=== PATIENT | female | born 1940 | race Caucasian/White ===

== ENCOUNTER → 2016-07-20 | Outpatient (CLI) | payer OTHER, MEDICARE ==
[~2016-07-20] MED LIST: AMIO0.1T PO; ASPI81TA28 PO; ATOR-26 PO; BRVIN INH; BSP15 PO; BUDE0.5S INH; CHOL20009 PO; CRD200 PO; CRDCD180 PO; DILT-113 PO; DSY100 PO; ECRCR EXT; EFFSR150 PO; EFFSR75 PO; FERR1TAB13 PO; FERR325T51 PO; FLNIN; FLUT0.15 NAE; FLUT1INH INH; FOLI1TAB7 PO; GFNSR600 PO; GUAI1TAB55 PO; IPRA1AER2 INH; LACT1TAB4 PO; LCTX PO; LEVA1.25 INH; LVQ750 PO; MOML PO; MOMLX PO; MRLP17X PO; MRP25 PO; OXGN; POLY335019 PO; PRAM0.256 PO; PRD20 PO; PRED10TA PO; PRT/40 PO; RIVA1TAB4 PO; SALI0.6510; SALI0.6510 NAE; SKINCRE34 TOP; SPRIN INH; SPRIN/30 INH; SYMIN INH; UMEC1INH INH; XNX25 PO
[2016-07-20 12:36] LABS: ALT/SGPT 18 U/L (12-78); AST/SGOT 15 U/L (15-37); BLOOD UREA NITROGEN 12 mg/dl (7-18); BUN/CREATININE RATIO 15.2 (10-20); CALCIUM 8.6 mg/dl (8.5-10.1); CARBON DIOXIDE 34 mmol/L (21-32); CHLORIDE 103 mmol/L (98-107); CREATININE 0.82 mg/dl (0.60-1.20); GLUCOSE 144 mg/dl (70-99); HEMATOCRIT 32.3 % (37-47); MEAN CELL VOLUME 96.1 fL (80-100); MEAN CORPUSCULAR HEMOGLOBIN 30.7 pg (25-34); MEAN CORPUSCULAR HGB CONC 31.9 g/dl (32-36); MEAN PLATELET VOLUME 11.2 fL (7.4-10.4); PLATELET COUNT 156 K/uL (130-400); POTASSIUM 3.8 mmol/L (3.5-5.1); RED BLOOD COUNT 3.36 M/uL (4.2-5.4); SODIUM 144 mmol/L (136-145); WHITE BLOOD COUNT 10.21 K/uL (4.8-10.8)
[2016-07-20 12:38] LABS: ALB/GLOB RATIO 0.9 (0.9-2); ALKALINE PHOSPHATASE 94 U/L (45-117)
== END | disposition home or self-care (01) ==
LOC: C.LABBFT 11:02
PROVIDERS: ATTEND Internal Medicine Cardiovascular Disease
DX: I48.91 Unspecified atrial fibrillation (principal); Z79.01 Long term (current) use of anticoagulants; E78.5 Hyperlipidemia, unspecified

== ENCOUNTER 2016-07-22 19:43 | Inpatient (IN) | payer OTHER, MEDICARE ==
[~2016-07-22] VITALS: Ht 160 cm; Wt 95.8 kg
[~2016-07-22 19:43] MED LIST changes: -AMIO0.1T PO; -ASPI81TA28 PO; -BUDE0.5S INH; -CRDCD180 PO; -DILT-113 PO; -ECRCR EXT; -FERR1TAB13 PO; -FLNIN; -FLUT0.15 NAE; -FLUT1INH INH; -GUAI1TAB55 PO; -LACT1TAB4 PO; -LVQ750 PO; -MOML PO; -MOMLX PO; -MRLP17X PO; -MRP25 PO; -POLY335019 PO; -PRAM0.256 PO; -PRD20 PO; -PRED10TA PO; -RIVA1TAB4 PO; -SALI0.6510; -SALI0.6510 NAE; -SKINCRE34 TOP; -SPRIN INH; -UMEC1INH INH; -XNX25 PO
[2016-07-22] MEDS ORDERED: ALBUT/IPRATROP 3MG/0.5MG NEB 3 ML VIAL INH STA ×2 (20:10→20:12)
[2016-07-22] MEDS ORDERED: METHYLPREDNISOLONE IV 40 MG in SYRINGE 0 ML IV STA (20:12)
[2016-07-22] MEDS ORDERED: LEVAQUIN 750MG / 150ML D5W IV STA (20:12)
[2016-07-22 20:42] LABS: BASO % 0.3 %; BASO ABS # 0.02 K/uL (0-0.2); COMPLETE YES; EOS % 1.3 %; HEMATOCRIT 31.7 % (37-47); IG% 0.3 %; LYMPH % 8.1 %; LYMPH ABS # 0.55 K/uL (1.2-3.4); MEAN CELL VOLUME 95.8 fL (80-100); MEAN CORPUSCULAR HEMOGLOBIN 30.2 pg (25-34); MEAN CORPUSCULAR HGB CONC 31.5 g/dl (32-36); MEAN PLATELET VOLUME 10.6 fL (7.4-10.4); MONO % 10.5 %; NEUT % 79.5 %; PLATELET COUNT 156 K/uL (130-400); RED BLOOD COUNT 3.31 M/uL (4.2-5.4); WHITE BLOOD COUNT 6.77 K/uL (4.8-10.8)
--- NOTE | 2016-07-22 20:51 | DIAGNOSTIC IMAGING REPORT ---
CHEST ONE VIEW PORTABLE HISTORY: EVALUATE RESPIRATORY DISTRESS.DYSPNEA COMPARISON: Chest 02/01/2016. FINDINGS: The heart is normal in size. Bilateral hilar prominence remains unchanged. This likely represents, severe pulmonary vasculature. No pleural effusions. No pneumothorax. Left basilar linear density persist and favor scarring or atelectasis. No new focal lung consolidations. No evidence for pulmonary edema. IMPRESSION: No significant change compared to the prior study. No acute process. Electronically signed by: Jason Bosch M.D. 07/22/2016 8:49 PM Dictated Date/Time: 07/22/2016 8:48 PM
[2016-07-22] MEDS ORDERED: METHYLPREDNISOLONE 125 MG VIAL ONE (20:57)
[2016-07-22 21:02] LABS: BUN/CREATININE RATIO 11.4 (10-20); CALCIUM 8.8 mg/dl (8.5-10.1); CREATININE 0.69 mg/dl (0.60-1.20); POTASSIUM 3.3 mmol/L (3.5-5.1)
[2016-07-22] MEDS ORDERED: FERR1TAB13 PO (21:06)
[2016-07-22 21:07] LABS: ALB/GLOB RATIO 0.7 (0.9-2)
[2016-07-22 22:12] LABS: URINE APPEARANCE CLEAR (CLEAR); URINE BILIRUBIN NEG (NEG); URINE COLOR YELLOW; URINE NITRITE NEG (NEG); URINE SPECIFIC GRAVITY 1.009 (1.000-1.030); UROBILINOGEN NEG (NEG)
[2016-07-22 22:14] LABS: MANUAL MICROSCOPIC REQUIRED? NO; REVIEW REQ? NO
[2016-07-23] VITALS (9 sets, daily range): BP systolic 135–157; BP diastolic 66–79; PULSE 58–103; TEMP 36.7–37.3; O2SAT 93–98; BMI 37.4
--- NOTE | 2016-07-23 00:37 | EMERGENCY ROOM VISIT NOTE ---
History Report prepared by Seth: Mercedes Lopez Under the Supervision of: Dr. Tariq Portillo D.O. First contact with patient: 20:01 Chief Complaint: RESPIRATORY PROBLEMS Stated Complaint: CANT BREATHE W OXYGEN, RT SIDE OF HEAD HURTS,COUGH Nursing Triage Summary: Patient complains of increased SOB. Patient uses 4l NC at home. PAtient used home nebuliser prior to coming to hospital. History of Present Illness The patient is a 76 year old female who presents to the Emergency Room with complaints of worsening shortness of breath that started yesterday or the day before. She normally wears 4 L of nasal cannula oxygen at home, but it has not offered her any relief of her symptoms. The patient is also experiencing a headache, rhinorrhea, and a productive cough with thick yellow sputum. She denies fevers, sore throat, chest pain, abdominal pain, and pain or burning with urination. The patient denies any recent sick contacts. She also denies recent steroid use. The patient's daughter states that the patient has a history of COPD and atrial fibrillation. The patient just started Xarelto two weeks ago, per the patient's daughter. Source of History: patient Onset: yesterday or the day before Position: chest Quality: other (shortness of breath) Timing: worsening Associated Symptoms: + cough (productive with thick yellow sputum), + headache, No abdominal pain, No chest pain, No fevers, No sorethroat, No urinary symptoms (pain or burning with urination) Note: rhinorrhea Review of Systems See HPI for pertinent positives & negatives. A total of 10 systems reviewed and were otherwise negative. Past Medical & Surgical Medical Problems: (1) Diab Zoey Wo Compl, Type Ii Or Unspec Type, Not Uncntrld (2) Diverticulosis Colon (W/O Ment Of Hemorrhage) (3) Hyperlipidemia Nec/Nos (4) Hypertension Nos (5) Obstr Chronic Bronchitis, W (Acute) Exacerbation (6) Pneumonia, Organism Nos (7) Pure Hypercholesterolem (8) Tubal Ligation Status Family History Diabetes mellitus FH: cancer Hypertension Social History Smoking Status: Never Smoker Alcohol Use: none Drug Use: none Housing Status: lives with family Current/Historical Medications Scheduled Amiodarone HCl (Amiodarone HCl), 100 MG PO DAILY Atorvastatin (Lipitor), 80 MG PO DAILY Budesonide/Formoterol Fumarate (Symbicort 160-4.5 Mcg/Act), 2 PUFFS INH BID Buspirone HCl (Buspirone HCl), 15 MG PO TID Cholecalciferol (Vitamin D), 2,000 INTER.UNIT PO DAILY Ferrous Sulfate (Kp Ferrous Sulfate), 1 TAB PO BID Folic Acid (Folvite), 1 MG PO DAILY Guaifenesin Ext Rel (Mucinex Ext Rel), 600 MG PO Q12 Ipratropium-Albuterol (Combivent Respimat), 1 PUFFS INH QID Lactobacillus Acidophilus (Floranex), 1 TAB PO TIDM Oxygen (Oxygen), 2 LITERS NA UD Pantoprazole (Pantoprazole Sodium), 40 MG PO DAILY Trazodone HCl (Trazodone HCl), 200 MG PO HS Venlafaxine Hcl (Effexor Extended Rel), 150 MG PO DAILY Venlafaxine Hcl (Effexor Extended Rel), 75 MG PO DAILY Allergies Coded Allergies: Morphine (Verified Allergy, Mild, Causes Afib, 07/22/16) Mushroom (Verified Allergy, Unknown, 07/22/16) Theophyllines (Verified Allergy, Unknown, Unknown, 07/22/16) Reported by daughter and [facility]. Codeine (Verified Adverse Reaction, Unknown, HYPERVENTILATES, 07/22/16) Physical Exam Vital Signs Date Time Temp Pulse Resp B/P Pulse Ox O2 Delivery O2 Flow Rate FiO2 07/22/16 22:00 82 Nasal Cannula 4.0 07/22/16 21:46 106 18 131/62 98 Nasal Cannula 4.0 07/22/16 20:59 94 07/22/16 20:52 100 Nasal Cannula 4.0 07/22/16 20:00 94 Nasal Cannula 4.0 07/22/16 19:49 37.6 101 32 128/59 83 Room Air Physical Exam GENERAL: alert, sitting up in bed on nasal cannula oxygen, disheveled, moderate distress EYE EXAM: normal conjunctiva OROPHARYNX: no exudate, no erythema, lips, buccal mucosa, and tongue normal and mucous membranes are dry NECK: supple, no nuchal rigidity, no adenopathy, non-tender LUNGS: Diffuse wheezing. Normal chest wall mechanics HEART: tachycardic rate, no murmurs, S1 normal and S2 normal ABDOMEN: abdomen soft, non-tender, normo-active bowel sounds, no masses, no rebound or guarding. BACK: Back is symmetrical on inspection and there is no deformity, no midline tenderness, no CVA tenderness. SKIN: no rashes and no bruising UPPER EXTREMITIES: upper extremities are grossly normal. LOWER EXTREMITIES: No pitting edema, calves equal bilaterally. NEURO EXAM: Normal sensorium, cranial nerves II-XII grossly intact, normal speech, no gross weakness of arms, no gross weakness of legs. Medical Decision & Procedures ER Provider Diagnostic Interpretation: Xray results per the radiologist and my interpretation. CHEST ONE VIEW PORTABLE IMPRESSION: No significant change compared to the prior study. No acute process. Electronically signed by: Jason Bosch M.D. 07/22/2016 8:49 PM Dictated Date/Time: 07/22/2016 8:48 PM Laboratory Results 07/22/16 20:31 Red Blood Count 3.31, Mean Corpuscular Volume 95.8, Mean Corpuscular Hemoglobin 30.2, Mean Corpuscular Hemoglobin Concent 31.5, Mean Platelet Volume 10.6, Neutrophils (%) (Auto) 79.5, Lymphocytes (%) (Auto) 8.1, Monocytes (%) (Auto) 10.5, Eosinophils (%) (Auto) 1.3, Basophils (%) (Auto) 0.3, Neutrophils # (Auto ) 5.38, Lymphocytes # (Auto) 0.55, Monocytes # (Auto) 0.71, Eosinophils # (Auto ) 0.09, Basophils # (Auto) 0.02 07/22/16 20:31 Test 07/22/16 20:31 07/22/16 20:59 07/22/16 22:01 White Blood Count 6.77 K/uL (4.8-10.8) Red Blood Count 3.31 M/uL (4.2-5.4) Hemoglobin 10.0 g/dL (12.0-16.0) Hematocrit 31.7 % (37-47) Mean Corpuscular Volume 95.8 fL (80-100) Mean Corpuscular Hemoglobin 30.2 pg (25-34) Mean Corpuscular Hemoglobin Concent 31.5 g/dl (32-36) Platelet Count 156 K/uL (130-400) Mean Platelet Volume 10.6 fL (7.4-10.4) Neutrophils (%) (Auto) 79.5 % Lymphocytes (%) (Auto) 8.1 % Monocytes (%) (Auto) 10.5 % Eosinophils (%) (Auto) 1.3 % Basophils (%) (Auto) 0.3 % Neutrophils # (Auto) 5.38 K/uL (1.4-6.5) Lymphocytes # (Auto) 0.55 K/uL (1.2-3.4) Monocytes # (Auto) 0.71 K/uL (0.11-0.59) Eosinophils # (Auto) 0.09 K/uL (0-0.5) Basophils # (Auto) 0.02 K/uL (0-0.2) RDW Standard Deviation 47.5 fL (36.4-46.3) RDW Coefficient of Variation 13.6 % (11.5-14.5) Immature Granulocyte % (Auto) 0.3 % Immature Granulocyte # (Auto) 0.02 K/uL (0.00-0.02) Anion Gap 9.0 mmol/L (3-11) Est Creatinine Clear Calc Drug Dose 78.8 ml/min Estimated GFR () 99.4 Estimated GFR (Non- 85.8 BUN/Creatinine Ratio 11.4 (10-20) Calcium Level 8.8 mg/dl (8.5-10.1) Total Bilirubin 0.7 mg/dl (0.2-1) Aspartate Amino Transf (AST/SGOT) 22 U/L (15-37) Alanine Aminotransferase (ALT/SGPT) 19 U/L (12-78) Alkaline Phosphatase 90 U/L (45-117) Troponin I 0.017 ng/ml (0-0.045) Pro-B-Type Natriuretic Peptide 462 pg/ml (0-900) Total Protein 7.2 gm/dl (6.4-8.2) Albumin 3.0 gm/dl (3.4-5.0) Globulin 4.2 gm/dl (2.5-4.0) Albumin/Globulin Ratio 0.7 (0.9-2) Influenza Type A Antigen Neg for Influ A (NEG) Influenza Type B Antigen Neg for Influ B (NEG) Urine Color YELLOW Urine Appearance CLEAR (CLEAR) Urine pH 5.0 (4.5-7.5) Urine Specific [place] 1.009 (1.000-1.030) Urine Protein NEG (NEG) Urine Glucose (UA) 3+ (NEG) Urine Ketones NEG (NEG) Urine Occult Blood NEG (NEG) Urine Nitrite NEG (NEG) Urine Bilirubin NEG (NEG) Urine Urobilinogen NEG (NEG) Urine Leukocyte Esterase NEG (NEG) Laboratory results per my review. Medications Administered Medications (Trade) Dose Ordered Sig/Buddy Route Start Time Stop Time Status Last Admin Dose Admin Albuterol/ Ipratropium (Duoneb) 3 ml NOW STAT INH 07/22/16 20:10 07/22/16 20:12 DC 07/22/16 21:10 3 ML Albuterol/ Ipratropium (Duoneb) 3 ml NOW STAT INH 07/22/16 20:12 07/22/16 20:13 DC 07/22/16 21:10 3 ML Levofloxacin 750 mg 750 mg NOW STAT IV 07/22/16 20:12 07/22/16 20:13 DC 07/22/16 21:10 750 MG Methylprednisolone Sodium Succinate/ Syringe (Solu-Medrol IV/ Syringe) 0.64 ml @ 1.5 mls/min NOW STAT IV 07/22/16 20:12 07/22/16 20:13 DC 07/22/16 21:47 1.5 MLS/MIN ECG Indication: SOB/dyspnea Rate (beats per minute): 94 Rhythm: sinus rhythm Findings: ST elevation (slight in lead III), other (poor baseline in the inferior leads) Comparison ECG Date: 10/17/2014 Change: no significant change ED Course ED COURSE: Vital signs were reviewed and showed tachycardia and tachypnea. The patients medical record was reviewed The above diagnostic studies were performed and reviewed. ED treatments and interventions as stated above. 2004: The patient was evaluated in room C2. A complete history and physical examination was performed. 2009: Ordered DuoNeb 3 ml INH 2011: Ordered Methylprednisolone Sodium Succinate 40 mg/Syringe 0.64 ml @ 1.5 mls/min IV, Levofloxacin 750 mg IV 2135: I reassessed the patient. She just received a nebulizer treatment and is feeling slightly better. 2199: The patient's nurse informed me that the patient's oxygen saturation dropped down to 82% on 4 L of nasal cannula oxygen when she walked to the bathroom. 2204: Upon reevaluation, the patient is resting comfortably. I discussed my findings with the patient and she understands and agrees with the treatment plan. Based on the patients age, coexisting illnesses, exam and lab findings the decision to treat as an inpatient was made. The patient remained stable while under my care. The patient will be evaluated for further management. 2205: I reviewed the patient's case with Dr. Candelario SPANN. She will evaluate the patient for further management. Medical Decision Differential diagnoses includes but is not limited to pneumonia, bronchitis, COPD/Asthma exacerbation, pneumothorax, pulmonary embolism, congestive heart failure, acute coronary syndrome Patient is a 76-year-old female with past medical history of COPD who presents the ER for severe shortness of breath associated with a yellow productive cough which is new over the past 2 days. She wears 4 L nasal cannula chronically. She is dyspneic initially with conversation. Pulse ox drops to 80% with minimal ambulation. Labs are remarkable for a mild anemia. BMP along with LFTs , bilirubin and troponin are negative. EKG showed slight ST elevation in the inferior leads but this is unchanged from her previous EKGs. Elevation is less than 1 mm. UA was unremarkable. All her symptoms do appear to be infectious in nature. She was covered with Levaquin nebulizers and steroids. She felt slightly better. She was admitted to internal medicine with a COPD exacerbation likely secondary to a bronchitis. Consults Time Called: 2202 Consulting Physician: Dr. Candelario SPANN Returned Call: 2205 I reviewed the patient's case with Dr. Candelario SPANN. She will evaluate the patient for further management. Impression Primary Impression: COPD exacerbation Additional Impressions: Bronchitis Anemia Hypokalemia Scribe Attestation The scribe's documentation has been prepared under my direction and personally reviewed by me in its entirety. I confirm that the note above accurately reflects all work, treatment, procedures, and medical decision making performed by me. Departure Information Dispostion Being Evaluated By Hospitalist Referrals Ray Pereira III, CRNP (PCP) Patient Instructions My [facility] Problem Qualifiers Additional Impressions: Anemia Anemia type: unspecified type Qualified Codes: D64.9 - Anemia, unspecified
--- NOTE | 2016-07-23 01:38 | History and Physical ---
History & Physical Date & Time of Service: Jul 23, 2016 at 01:27 Chief Complaint: Copd Exacerbation, Hypoxia Primary Care Physician: Ray Pereira III, CRNP History of Present Illness Source: patient, family The patient is a 76-year-old female who presents emergency department with worsening shortness of breath over the past few days. She has a known history of severe COPD, requiring 4 L of nasal cannula oxygen at home continuously. She has developed a headache, runny nose, cough productive of thick yellow sputum. She has not had any recent travel, and is not aware of any sick exposures. She is noted to just have started Xarelto 2 weeks ago due to atrial fibrillation. Past Medical/Surgical History Medical Problems: (1) Diab Zoey Wo Compl, Type Ii Or Unspec Type, Not Uncntrld Status: Chronic (2) Diverticulosis Colon (W/O Ment Of Hemorrhage) Status: Chronic (3) Hyperlipidemia Nec/Nos Status: Chronic (4) Hypertension Nos Status: Chronic (5) Obstr Chronic Bronchitis, W (Acute) Exacerbation Status: Chronic (6) Pneumonia, Organism Nos Status: Resolved (7) Pure Hypercholesterolem Status: Chronic (8) Tubal Ligation Status Status: Resolved Family History Diabetes mellitus FH: cancer Hypertension Social History Smoking Status: Former Smoker Smokeless Tobacco Use: No Alcohol Use: none Drug Use: none Housing status: lives with family Occupational Status: retired Immunizations History of Influenza Vaccine: Yes Influenza Vaccine Date: Apr 12, 2013 History of Tetanus Vaccine?: Unknown Tetanus Immunization Date: Nov 09, 2007 History of Pneumococcal: Yes Pneumococcal Date: Mar 10, 2011 History of Hepatitis B Vaccine: No Multi-Drug Resistant Organisms History of MDRO: No Allergies Coded Allergies: Morphine (Verified Allergy, Mild, Causes Afib, 07/22/16) Mushroom (Verified Allergy, Unknown, 07/22/16) Theophyllines (Verified Allergy, Unknown, Unknown, 07/22/16) Reported by daughter and listed [place] [facility] [place]. Codeine (Verified Adverse Reaction, Unknown, HYPERVENTILATES, 07/22/16) Home Medications Scheduled Amiodarone HCl (Amiodarone HCl), 100 MG PO DAILY Atorvastatin (Lipitor), 80 MG PO DAILY Budesonide/Formoterol Fumarate (Symbicort 160-4.5 Mcg/Act), 2 PUFFS INH BID Buspirone HCl (Buspirone HCl), 15 MG PO TID Cholecalciferol (Vitamin D), 2,000 INTER.UNIT PO DAILY Ferrous Sulfate (Kp Ferrous Sulfate), 1 TAB PO BID Folic Acid (Folvite), 1 MG PO DAILY Guaifenesin Ext Rel (Mucinex Ext Rel), 600 MG PO Q12 Ipratropium-Albuterol (Combivent Respimat), 1 PUFFS INH QID Lactobacillus Acidophilus (Floranex), 1 TAB PO TIDM Oxygen (Oxygen), 2 LITERS NA UD Pantoprazole (Pantoprazole Sodium), 40 MG PO DAILY Trazodone HCl (Trazodone HCl), 200 MG PO HS Venlafaxine Hcl (Effexor Extended Rel), 150 MG PO DAILY Venlafaxine Hcl (Effexor Extended Rel), 75 MG PO DAILY Review of Systems The patient denies lower extremity swelling, vision change, hearing change, sore throat, fevers, chills, sweats, weight change, fatigue, nausea, vomiting, abdominal pain, pelvic pain, blood in urine or stool, dysuria, urinary frequency or urgency, lightheadedness, dizziness, headache, memory loss, rash, abnormal bruising or bleeding, imbalance, focal weakness, numbness or tingling in arms or legs, night sweats. The review of systems is otherwise negative other than for that already noted above, and at least 10 systems have been reviewed. Physical Exam Vital Signs Date Time Temp Pulse Resp B/P Pulse Ox O2 Delivery O2 Flow Rate FiO2 07/22/16 22:00 82 Nasal Cannula 4.0 07/22/16 21:46 106 18 131/62 98 Nasal Cannula 4.0 07/22/16 20:59 94 07/22/16 20:52 100 Nasal Cannula 4.0 07/22/16 20:00 94 Nasal Cannula 4.0 07/22/16 19:49 37.6 101 32 128/59 83 Room Air The patient is awake, well-developed and adequately nourished, alert and oriented 3, normocephalic and atraumatic, lying in bed and in no acute distress , except with occasional moderately severe paroxysmal cough. HEENT--PERRL, EOMI, mucous membranes and oropharynx moist. Neck--supple, no JVD or bruits, thyroid normal, trachea midline, no adenopathy. Heart--normal S1 and S2, no extra beats, no murmurs, rubs or gallops. Lungs--wheezes and rhonchi bilaterally, mild respiratory distress, no accessory muscle use. Abdomen--normal bowel sounds and soft, nontender and nondistended, no hernias or masses, no organomegaly. Extremities--no cyanosis, clubbing or edema. There are good distal pulses b/l. Dermatologic--normal skin turgor, normal color, warm and dry, no abnormal lymph nodes, no rash. Neurologic--cranial nerves II through XII grossly intact, motor and sensory examination normal. Rheumatologic--normal range of motion, nontender, muscles and joints. Psychiatric--normal affect. Diagnostics Laboratory Results Results Past 24 Hours Test 07/22/16 20:31 07/22/16 20:59 07/22/16 22:01 Range/Units White Blood Count 6.77 4.8-10.8 K/uL Red Blood Count 3.31 4.2-5.4 M/uL Hemoglobin 10.0 12.0-16.0 g/dL Hematocrit 31.7 37-47 % Mean Corpuscular Volume 95.8 80-100 fL Mean Corpuscular Hemoglobin 30.2 25-34 pg Mean Corpuscular Hemoglobin Concent 31.5 32-36 g/dl Platelet Count 156 130-400 K/uL Mean Platelet Volume 10.6 7.4-10.4 fL Neutrophils (%) (Auto) 79.5 % Lymphocytes (%) (Auto) 8.1 % Monocytes (%) (Auto) 10.5 % Eosinophils (%) (Auto) 1.3 % Basophils (%) (Auto) 0.3 % Neutrophils # (Auto) 5.38 1.4-6.5 K/uL Lymphocytes # (Auto) 0.55 1.2-3.4 K/uL Monocytes # (Auto) 0.71 0.11-0.59 K/uL Eosinophils # (Auto) 0.09 0-0.5 K/uL Basophils # (Auto) 0.02 0-0.2 K/uL RDW Standard Deviation 47.5 36.4-46.3 fL RDW Coefficient of Variation 13.6 11.5-14.5 % Immature Granulocyte % (Auto) 0.3 % Immature Granulocyte # (Auto) 0.02 0.00-0.02 K/uL Sodium Level 140 136-145 mmol/L Potassium Level 3.3 3.5-5.1 mmol/L Chloride Level 101 98-107 mmol/L Carbon Dioxide Level 30 21-32 mmol/L Anion Gap 9.0 3-11 mmol/L Blood Urea Nitrogen 8 7-18 mg/dl Creatinine 0.69 0.60-1.20 mg/dl Est Creatinine Clear Calc Drug Dose 78.8 ml/min Estimated GFR () 99.4 Estimated GFR (Non- 85.8 BUN/Creatinine Ratio 11.4 10-20 Random Glucose 112 70-99 mg/dl Calcium Level 8.8 8.5-10.1 mg/dl Total Bilirubin 0.7 0.2-1 mg/dl Aspartate Amino Transf (AST/SGOT) 22 15-37 U/L Alanine Aminotransferase (ALT/SGPT) 19 12-78 U/L Alkaline Phosphatase 90 45-117 U/L Troponin I 0.017 0-0.045 ng/ml Pro-B-Type Natriuretic Peptide 462 0-900 pg/ml Total Protein 7.2 6.4-8.2 gm/dl Albumin 3.0 3.4-5.0 gm/dl Globulin 4.2 2.5-4.0 gm/dl Albumin/Globulin Ratio 0.7 0.9-2 Influenza Type A Antigen Neg for Influ A NEG Influenza Type B Antigen Neg for Influ B NEG Urine Color YELLOW Urine Appearance CLEAR CLEAR Urine pH 5.0 4.5-7.5 Urine Specific [place] 1.009 1.000-1.030 Urine Protein NEG NEG Urine Glucose (UA) 3+ NEG Urine Ketones NEG NEG Urine Occult Blood NEG NEG Urine Nitrite NEG NEG Urine Bilirubin NEG NEG Urine Urobilinogen NEG NEG Urine Leukocyte Esterase NEG NEG Diagnostic Radiology Patient Name: IKE WEAVER Unit Number: [id number] Dictated: 07/22/162047 Transcribed: 07/22/162047 PAJ Printed Date/Time: [~ rep prt dt]/[~ rep prt tm] [~ rep ct labl] - [~ rep ct ivnm] [facility] [place] [address] Dictated: 07/22/162047 Transcribed: 07/22/162047 PAJ Printed Date/Time: [~ rep prt dt]/[~ rep prt tm] [~ rep ct labl] - [~ rep ct ivnm] CHEST ONE VIEW PORTABLE HISTORY: EVALUATE RESPIRATORY DISTRESS.DYSPNEA COMPARISON: Chest 02/01/2016. FINDINGS: The heart is normal in size. Bilateral hilar prominence remains unchanged. This likely represents, severe pulmonary vasculature. No pleural effusions. No pneumothorax. Left basilar linear density persist and favor scarring or atelectasis. No new focal lung consolidations. No evidence for pulmonary edema. IMPRESSION: No significant change compared to the prior study. No acute process. Electronically signed by: Jaosn Bosch M.D. 07/22/2016 8:49 PM Dictated Date/Time: 07/22/2016 8:48 PM The status of this report is Signed. Draft = Not yet reviewed or approved by Radiologist. Signed = Reviewed and approved by Radiologist. <AttendingPhy></AttendingPhy> <FamilyPhy>Ray Pereira III, CRNP</FamilyPhy> < PrimaryPhy>Ray Pereira III, CRNP</PrimaryPhy> <UnitNumber>[id number]</ UnitNumber> <VisitNumber>[id number]</VisitNumber> <PatientName>IKE WEAVER</PatientName> <DateOfBirth>1940</DateOfBirth> <Location>[facility]</Location > <ServiceDate>07/22/16</ServiceDate> <MNE>ESINDI</MNE> <OrderingPhy>Tariq Portillo DO</OrderingPhy> <OrderingPhyMNE>f rep ord dr chan</OrderingPhyMNE> < DictatingPhyMNE>f rep dict dr chan</DictatingPhyMNE> <CCListMNE>f rep ct yasmine</ CCListMNE> <AdmittingPhyMNE>f pt admit dr chan</AdmittingPhyMNE> <AttendingPhyMNE >f pt attend dr chan</AttendingPhyMNE> <ConsultingPhyMNE>f pt consult dr chan</ConsultingPhyMNE> <FamilyPhyMNE>f pt fam dr chan</FamilyPhyMNE> <OtherPhyMNE>f pt other dr chan</OtherPhyMNE> < PrimaryPhyMNE>f pt prim care dr chan</PrimaryPhyMNE> <ReferringPhyMNE>f pt referring dr chan</ReferringPhyMNE> EKG EKG shows normal sinus rhythm at 94 bpm, there are no acute ST-T changes. Impression Assessment and Plan COPD exacerbation/hypoxia/bronchitis--the patient will be admitted, and placed on ceftriaxone 1 g IV daily, levofloxacin 500 mg IV every 24 hours, Solu-Medrol 40 mg IV every 6 hours, guaifenesin extended release 600 mg by mouth twice a day , Tessalon Perles 100 mg by mouth 3 times a day when necessary, and Xopenex with Atrovent nebulizer to use every 6 hours while awake and every 2 hours when necessary. We'll send sputum Gram stain and culture. We will hold Symbicort and Combivent. We'll continue Floranex one tablet by mouth 3 times a day with meals. Paroxysmal Atrial fibrillation--continue amiodarone 100 mg by mouth daily. Was reportedly started on Xarelto recently, but is not currently on medication list. Regarding hypokalemia we'll replace orally and recheck with repeat BMP and magnesium levels. Hypercholesterolemia--continue atorvastatin 80 mg by mouth daily. Anxiety/depression--continue buspirone 15 mg by mouth 3 times a day, trazodone 2 mg by mouth at bedtime, and venlafaxine extended release 225 mg by mouth daily. GERD--continue pantoprazole 40 mg by mouth daily. Level of Care Med/Surg Advanced Directives Existing Advance Directive: No Existing Living Will: No Existing Power of Mailing Jogger: No Resuscitation Status FULL RESUSCITATION VTE Prophylaxis VTE Risk Assessment Done? Y/N: Yes Risk Level: Moderate Given or contraindicated: SCD's
[2016-07-23] MEDS ORDERED: CEFTRIAXONE SOD INJ 1 GM in DEXTROSE 5% ADD-VANTAGE 50ML 50 ML IV SCH (02:00)
[2016-07-23] MEDS: METHYLPREDNISOLONE IV 40 MG in SYRINGE 0 ML IV SCH ×2 (02:30→07:46)
[2016-07-23] MEDS ORDERED: LEVALBUTEROL/IPRATROPIUM NEB INH SCH (03:00)
[2016-07-23] MEDS: IPRATROPIUM BROMIDE NEB SOLN 0.02% 2.5 ML VIAL INH SCH ×4 (03:10→20:08)
[2016-07-23] MEDS: LEVALBUTEROL 1.25MG/0.5ML NEB INH SCH ×4 (03:10→20:08)
[2016-07-23] MEDS: PANTOprazole SOD 40 MG TAB PO SCH (04:54)
[2016-07-23] MEDS: VENLAFAXINE HCL XR 75 MG CAPXR PO SCH (07:45)
[2016-07-23] MEDS: GUAIFENESIN 600 MG TABCR PO SCH ×2 (07:46→20:51)
[2016-07-23] MEDS: BusPIRone 15 MG TAB PO SCH ×3 (07:47→20:51)
[2016-07-23] MEDS: LACTOBACILLUS ACIDOPHILUS (FLORANEX) TAB PO SCH ×3 (07:47→17:20)
[2016-07-23] MEDS: FERROUS SULFATE 325 MG TAB PO SCH ×2 (07:47→17:21)
[2016-07-23] MEDS: AMIODARONE 200 MG TAB PO SCH (07:48)
[2016-07-23] MEDS: ATORVASTATIN 40 MG TAB PO SCH (07:48)
[2016-07-23] MEDS: CHOLECALCIFEROL 1000 INTER.UNIT TAB PO SCH (07:49)
[2016-07-23] MEDS ORDERED: POLYETHYLENE (MIRALAX) 17 GM PACK PO ONE (09:29)
--- NOTE | 2016-07-23 09:35 | Progress Note ---
Subjective Date of Service: Jul 23, 2016. Subjective Pt evaluation today including: conversation w/ patient, physical exam, lab review, review of studies, conversation w/ air quality consultant, review of inpatient medication list Pain: no pain PO Intake: improving Voiding: no voiding problems patient feeling better compared to admission, less short of breath coughing up brown sputum, she typically does not have a cough her appetite is improving she c/o 3 days of constipation, worries she won't be able to move bowel here in the hospital Problem List Medical Problems: (1) Anemia Status: Acute (2) Anemia Status: Acute (3) Bronchitis Status: Acute (4) COPD exacerbation Status: Acute (5) GI bleed Status: Acute (6) Hypokalemia Status: Acute Review of Systems Constitutional: + fatigue, + weakness Respiratory: + cough, + dyspnea on exertion, + shortness of breath, + sputum, + wheezing, No dyspnea at rest, No hemoptysis Abdomen: + constipation Neurologic: + weakness All Other Systems: Reviewed and Negative Medications Current Inpatient Medications Medications (Trade) Dose Ordered Sig/Buddy Route Start Time Stop Time Status Last Admin Dose Admin Acetaminophen (Tylenol Tab) 650 mg Q4H PRN PO 07/22/16 23:15 08/21/16 23:14 Zolpidem Tartrate (Ambien Tab) 5 mg HSZ PRN PO 07/22/16 23:15 08/21/16 23:14 Amiodarone HCl (Cordarone Tab) 100 mg DAILY PO 07/23/16 09:00 08/22/16 08:59 07/23/16 07:48 100 MG Atorvastatin Calcium (Lipitor Tab) 80 mg DAILY PO 07/23/16 09:00 08/22/16 08:59 07/23/16 07:48 80 MG Buspirone HCl (BusPAR TAB) 15 mg TID PO 07/23/16 09:00 08/22/16 08:59 07/23/16 07:47 15 MG Folic Acid (Folvite Tab) 1 mg DAILY PO 07/23/16 09:00 08/22/16 08:59 07/23/16 07:44 1 MG Guaifenesin (Mucinex Contr Rel Tab) 600 mg Q12 PO 07/23/16 09:00 08/22/16 08:59 07/23/16 07:46 600 MG Lactobacillus Acidophilus (Floranex Tab) 1 tab TIDM PO 07/23/16 08:00 08/22/16 07:59 07/23/16 07:47 1 TAB Pantoprazole Sodium (Protonix Tab) 40 mg DAILY PO 07/23/16 09:00 08/22/16 08:59 07/23/16 04:54 40 MG Trazodone HCl (Desyrel Tab) 200 mg HS PO 07/23/16 21:00 08/22/16 20:59 Venlafaxine HCl (effeXOR EXTENDED REL CAP) 225 mg DAILY PO 07/23/16 09:00 08/22/16 08:59 07/23/16 07:45 225 MG Cholecalciferol (Vitamin D Tab) 2,000 inter.unit QAM PO 07/23/16 09:00 08/22/16 08:59 07/23/16 07:49 2,000 INTER.UNIT Ferrous Sulfate 325 mg 325 mg BIDM PO 07/23/16 08:00 08/22/16 07:59 07/23/16 07:47 325 MG Levofloxacin/Prmx (Levaquin / D5W/ Premixed D5W) 100 ml @ 100 mls/hr Q24H IV 07/23/16 21:00 07/30/16 20:59 Ipratropium [place] (Atrovent 0.02% 0.5MG/2.5ML Neb) 0.5 mg Q6R INH 07/23/16 03:00 08/22/16 02:59 07/23/16 07:24 0.5 MG Levalbuterol (Xopenex 1.25MG/ 0.5ML Neb) 1.25 mg Q6R INH 07/23/16 03:00 08/22/16 02:59 07/23/16 07:24 1.25 MG Ipratropium [place] (Atrovent 0.02% 0.5MG/2.5ML Neb) 0.5 mg Q2H PRN INH 07/23/16 01:30 08/22/16 01:29 Levalbuterol (Xopenex 1.25MG/ 0.5ML Neb) 1.25 mg Q2H PRN INH 07/23/16 01:30 08/22/16 01:29 Benzonatate (Tessalon Perles Cap) 100 mg TID PRN PO 07/23/16 01:45 08/22/16 01:44 Prednisone (PredniSONE TAB) 40 mg QAM PO 07/24/16 09:00 08/23/16 08:59 UNV Prednisone (PredniSONE TAB) 40 mg ONE PO 07/23/16 12:00 08/22/16 11:59 UNV Objective Vital Signs Date Time Temp Pulse Resp B/P Pulse Ox O2 Delivery O2 Flow Rate FiO2 07/23/16 08:03 36.7 58 20 157/74 96 Nasal Cannula 4.0 07/23/16 07:24 92 16 96 Nasal Cannula 4.0 07/23/16 03:10 78 18 97 Nasal Cannula 4.0 07/23/16 01:01 37.3 103 20 157/66 96 Nasal Cannula 4.0 07/22/16 22:00 82 Nasal Cannula 4.0 07/22/16 21:46 106 18 131/62 98 Nasal Cannula 4.0 07/22/16 20:59 94 07/22/16 20:52 100 Nasal Cannula 4.0 07/22/16 20:00 94 Nasal Cannula 4.0 07/22/16 19:49 37.6 101 32 128/59 83 Room Air Physical Exam General Appearance: WD/WN, no apparent distress Eyes: normal inspection, EOMI, sclerae normal ENT: normal ENT inspection, hearing grossly normal, pharynx normal Neck: supple, no adenopathy, no JVD, trachea midline Respiratory/Chest: chest non-tender, no respiratory distress, no accessory muscle use, + decreased breath sounds, + wheezing (bilaterally, expiratory) Cardiovascular: regular rate, rhythm, no edema, no gallop, no JVD, no murmur Abdomen: normal bowel sounds, non tender, soft, no organomegaly Extremities: normal range of motion, non-tender, normal inspection, no pedal edema, no calf tenderness Neurologic/Psychiatric: roll hand II-XII nml as tested, no motor/sensory deficits, alert, normal mood/affect, oriented x 3 Skin: normal color, warm/dry, no rash Lymphatic: no adenopathy Laboratory Results Last 24 Hours Test 07/22/16 20:31 07/22/16 20:59 07/22/16 22:01 07/23/16 09:10 White Blood Count 6.77 K/uL Red Blood Count 3.31 M/uL Hemoglobin 10.0 g/dL Hematocrit 31.7 % Mean Corpuscular Volume 95.8 fL Mean Corpuscular Hemoglobin 30.2 pg Mean Corpuscular Hemoglobin Concent 31.5 g/dl Platelet Count 156 K/uL Mean Platelet Volume 10.6 fL Neutrophils (%) (Auto) 79.5 % Lymphocytes (%) (Auto) 8.1 % Monocytes (%) (Auto) 10.5 % Eosinophils (%) (Auto) 1.3 % Basophils (%) (Auto) 0.3 % Neutrophils # (Auto) 5.38 K/uL Lymphocytes # (Auto) 0.55 K/uL Monocytes # (Auto) 0.71 K/uL Eosinophils # (Auto) 0.09 K/uL Basophils # (Auto) 0.02 K/uL RDW Standard Deviation 47.5 fL RDW Coefficient of Variation 13.6 % Immature Granulocyte % (Auto) 0.3 % Immature Granulocyte # (Auto) 0.02 K/uL Sodium Level 140 mmol/L Potassium Level 3.3 mmol/L Chloride Level 101 mmol/L Carbon Dioxide Level 30 mmol/L Anion Gap 9.0 mmol/L Blood Urea Nitrogen 8 mg/dl Creatinine 0.69 mg/dl Est Creatinine Clear Calc Drug Dose 78.8 ml/min Estimated GFR () 99.4 Estimated GFR (Non- 85.8 BUN/Creatinine Ratio 11.4 Random Glucose 112 mg/dl Calcium Level 8.8 mg/dl Total Bilirubin 0.7 mg/dl Aspartate Amino Transf (AST/SGOT) 22 U/L Alanine Aminotransferase (ALT/SGPT) 19 U/L Alkaline Phosphatase 90 U/L Troponin I 0.017 ng/ml Pro-B-Type Natriuretic Peptide 462 pg/ml Total Protein 7.2 gm/dl Albumin 3.0 gm/dl Globulin 4.2 gm/dl Albumin/Globulin Ratio 0.7 Influenza Type A Antigen Neg for Influ A Influenza Type B Antigen Neg for Influ B Urine Color YELLOW Urine Appearance CLEAR Urine pH 5.0 Urine Specific [place] 1.009 Urine Protein NEG Urine Glucose (UA) 3+ Urine Ketones NEG Urine Occult Blood NEG Urine Nitrite NEG Urine Bilirubin NEG Urine Urobilinogen NEG Urine Leukocyte Esterase NEG Assessment and Plan 76 yo female with COPD and chronic hypoxic respiratory failure, presents with 3 days of increased cough and dyspnea, no fevers, no infiltrate on CXR - COPD exacerbation with signs of purulence: change Solumedrol to Prednisone 40mg daily with first dose today taper back antibiotics to just Levaquin, treat for 5-7 days depending on clinical response continue nebulizers resume Symbicort and Combivent tomorrow, continue Floranex - Chronic hypoxic respiratory failure: uses 4L at home chronically, currently no increased oxygen demands - Paroxysmal atrial fibrillation: Amiodarone, Xarelto - Hypokalemia: mildly low at 3.3 on admission, replaced orally, repeat labs ordered for today - Constipation: 3 days since last BM, will start on miralax daily scheduled until she has a BM, fluids, increase activity - High cholesterol: chronic, Lipitor - Anxiety/depression: Buspar, trazodone, Effexor, chronic and stable - GERD: Protonix - DVT prophylaxis: on Xarelto Plan: order PT, increase activity, d/c to home once medically stable, anticipate 48 more hours
[2016-07-23 12:41] LABS: BUN/CREATININE RATIO 14.6 (10-20); CALCIUM 8.6 mg/dl (8.5-10.1); POTASSIUM 3.5 mmol/L (3.5-5.1)
[2016-07-23] MEDS: BENZONATATE 100MG CAP PO PRN (16:10)
[2016-07-23] MEDS: IPRATROPIUM BROMIDE NEB SOLN 0.02% 2.5 ML VIAL INH PRN (16:27)
[2016-07-23] MEDS: LEVALBUTEROL 1.25MG/0.5ML NEB INH PRN (16:27)
[2016-07-23] MEDS: TRAZODONE HCL 100 MG TAB PO SCH (20:51)
[2016-07-23] MEDS: LEVOFLOXACIN / D5W 500 MG in PREMIXED IN D5W 100 ML IV SCH (20:51)
[2016-07-23] MEDS: ZOLPIDEM TARTRATE 5 MG TAB PO PRN (22:07)
[2016-07-24] VITALS (7 sets, daily range): BP systolic 134–169; BP diastolic 62–78; PULSE 85–118; TEMP 36.5–37.1; O2SAT 94–99
[2016-07-24] MEDS: LEVALBUTEROL 1.25MG/0.5ML NEB INH SCH ×2 (01:51→07:37)
[2016-07-24] MEDS: IPRATROPIUM BROMIDE NEB SOLN 0.02% 2.5 ML VIAL INH SCH ×2 (01:51→07:37)
[2016-07-24] MEDS: GUAIFENESIN 600 MG TABCR PO SCH ×2 (07:54→20:38)
[2016-07-24] MEDS: LACTOBACILLUS ACIDOPHILUS (FLORANEX) TAB PO SCH ×3 (07:54→17:28)
[2016-07-24] MEDS: FERROUS SULFATE 325 MG TAB PO SCH ×2 (07:54→17:28)
[2016-07-24] MEDS: AMIODARONE 200 MG TAB PO SCH (07:55)
[2016-07-24] MEDS: VENLAFAXINE HCL XR 75 MG CAPXR PO SCH (07:55)
[2016-07-24] MEDS: PANTOprazole SOD 40 MG TAB PO SCH (07:56)
[2016-07-24] MEDS: POLYETHYLENE (MIRALAX) 17 GM PACK PO SCH (07:56)
[2016-07-24] MEDS: CHOLECALCIFEROL 1000 INTER.UNIT TAB PO SCH (07:57)
[2016-07-24] MEDS: ATORVASTATIN 40 MG TAB PO SCH (07:58)
[2016-07-24] MEDS: BusPIRone 15 MG TAB PO SCH ×3 (07:58→20:38)
[2016-07-24] MEDS ORDERED: VENLAFAXINE HCL XR 75 MG CAPXR PO SCH (09:00)
--- NOTE | 2016-07-24 10:56 | Progress Note ---
Subjective Date of Service: Jul 24, 2016. Subjective Pt evaluation today including: conversation w/ patient, physical exam, review of inpatient medication list Pain: no pain PO Intake: adequate Voiding: no voiding problems patient says that she has a headache and she is tired, just wants to sleep today breathing feels like it is close to baseline but still coughing more than normal cough is productive still no fever/chills, eating well, still without a bowel movement, taking miralax Problem List Medical Problems: (1) Anemia Status: Acute (2) Anemia Status: Acute (3) Bronchitis Status: Acute (4) COPD exacerbation Status: Acute (5) GI bleed Status: Acute (6) Hypokalemia Status: Acute Review of Systems Constitutional: + fatigue, + weakness Respiratory: + cough, + dyspnea on exertion, + shortness of breath, + wheezing Abdomen: + constipation All Other Systems: Reviewed and Negative Medications Current Inpatient Medications Medications (Trade) Dose Ordered Sig/Buddy Route Start Time Stop Time Status Last Admin Dose Admin Acetaminophen (Tylenol Tab) 650 mg Q4H PRN PO 07/22/16 23:15 08/21/16 23:14 Zolpidem Tartrate (Ambien Tab) 5 mg HSZ PRN PO 07/22/16 23:15 08/21/16 23:14 07/23/16 22:07 5 MG Amiodarone HCl (Cordarone Tab) 100 mg DAILY PO 07/23/16 09:00 08/22/16 08:59 07/24/16 07:55 100 MG Atorvastatin Calcium (Lipitor Tab) 80 mg DAILY PO 07/23/16 09:00 08/22/16 08:59 07/24/16 07:58 80 MG Buspirone HCl (BusPAR TAB) 15 mg TID PO 07/23/16 09:00 08/22/16 08:59 07/24/16 07:58 15 MG Folic Acid (Folvite Tab) 1 mg DAILY PO 07/23/16 09:00 08/22/16 08:59 07/24/16 07:57 1 MG Guaifenesin (Mucinex Contr Rel Tab) 600 mg Q12 PO 07/23/16 09:00 08/22/16 08:59 07/24/16 07:54 600 MG Lactobacillus Acidophilus (Floranex Tab) 1 tab TIDM PO 07/23/16 08:00 08/22/16 07:59 07/24/16 07:54 1 TAB Pantoprazole Sodium (Protonix Tab) 40 mg DAILY PO 07/23/16 09:00 08/22/16 08:59 07/24/16 07:56 40 MG Trazodone HCl (Desyrel Tab) 200 mg HS PO 07/23/16 21:00 08/22/16 20:59 07/23/16 20:51 200 MG Venlafaxine HCl (effeXOR EXTENDED REL CAP) 225 mg DAILY PO 07/23/16 09:00 08/22/16 08:59 07/24/16 07:55 225 MG Cholecalciferol (Vitamin D Tab) 2,000 inter.unit QAM PO 07/23/16 09:00 08/22/16 08:59 07/24/16 07:57 2,000 INTER.UNIT Ferrous Sulfate 325 mg 325 mg BIDM PO 07/23/16 08:00 08/22/16 07:59 07/24/16 07:54 325 MG Levofloxacin/Prmx (Levaquin / D5W/ Premixed D5W) 100 ml @ 100 mls/hr Q24H IV 07/23/16 21:00 07/30/16 20:59 07/23/16 20:51 100 MLS/HR Ipratropium [place] (Atrovent 0.02% 0.5MG/2.5ML Neb) 0.5 mg Q2H PRN INH 07/23/16 01:30 08/22/16 01:29 07/23/16 16:27 0.5 MG Levalbuterol (Xopenex 1.25MG/ 0.5ML Neb) 1.25 mg Q2H PRN INH 07/23/16 01:30 08/22/16 01:29 07/23/16 16:27 1.25 MG Benzonatate (Tessalon Perles Cap) 100 mg TID PRN PO 07/23/16 01:45 08/22/16 01:44 07/23/16 16:10 100 MG Prednisone (PredniSONE TAB) 40 mg QAM PO 07/24/16 09:00 08/23/16 08:59 07/24/16 07:58 40 MG Polyethylene (Miralax Powder Packet) 17 gm DAILY PO 07/24/16 09:00 08/23/16 08:59 07/24/16 07:56 17 GM Budesonide/ Formoterol Fumarate (Symbicort 160/ 4.5 Inh) 2 puffs BID INH 07/24/16 09:00 08/23/16 08:59 Albuterol/ Ipratropium (Combivent Respimat Inh) 1 puffs QID INH 07/24/16 09:00 08/23/16 08:59 Objective Vital Signs Date Time Temp Pulse Resp B/P Pulse Ox O2 Delivery O2 Flow Rate FiO2 07/24/16 08:00 Nasal Cannula 4.0 07/24/16 07:41 36.5 92 16 153/74 96 4.0 07/24/16 07:36 92 16 96 Nasal Cannula 4.0 07/24/16 01:51 85 16 97 Nasal Cannula 4.0 07/24/16 00:00 Nasal Cannula 4.0 07/23/16 23:29 36.9 92 18 135/79 98 Nasal Cannula 4.0 07/23/16 20:08 97 16 93 Nasal Cannula 4.0 07/23/16 20:00 Nasal Cannula 4.0 07/23/16 16:27 91 16 94 Nasal Cannula 4.0 07/23/16 16:00 Nasal Cannula 4.0 07/23/16 15:18 36.9 86 20 135/69 96 Nasal Cannula 4.0 07/23/16 13:27 97 16 94 Nasal Cannula 4.0 Physical Exam General Appearance: WD/WN, no apparent distress Eyes: normal inspection, EOMI, sclerae normal ENT: normal ENT inspection, hearing grossly normal, pharynx normal Neck: supple, no adenopathy, no JVD, trachea midline Respiratory/Chest: chest non-tender, no respiratory distress, no accessory muscle use, + decreased breath sounds, + wheezing (expiratory, bilateral), + pertinent finding (strong cough) Cardiovascular: regular rate, rhythm, no edema, no gallop, no JVD, no murmur Abdomen: normal bowel sounds, non tender, soft, no organomegaly Extremities: normal range of motion, non-tender, normal inspection, no pedal edema, no calf tenderness, pelvis stable 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, no motor/sensory deficits, alert, normal mood/affect, oriented x 3 Skin: normal color, warm/dry, no rash Lymphatic: no adenopathy Laboratory Results Last 24 Hours Test 07/23/16 11:44 Sodium Level 143 mmol/L Potassium Level 3.5 mmol/L Chloride Level 103 mmol/L Carbon Dioxide Level 33 mmol/L Anion Gap 7.0 mmol/L Blood Urea Nitrogen 15 mg/dl Creatinine 1.00 mg/dl Est Creatinine Clear Calc Drug Dose 54.3 ml/min Estimated GFR () 64.3 Estimated GFR (Non- 55.5 BUN/Creatinine Ratio 14.6 Random Glucose 260 mg/dl Calcium Level 8.6 mg/dl Assessment and Plan 76 yo female with COPD and chronic hypoxic respiratory failure, presents with 3 days of increased cough and dyspnea, no fevers, no infiltrate on CXR - COPD exacerbation with signs of purulence: continue Prednisone 40mg daily, plan to initiate taper based on clinical response taper back antibiotics to just Levaquin, treat for 5 days, last dose would be 07/26 continue nebulizers q2 PRN resume Symbicort and Combivent today, continue Floranex - Chronic hypoxic respiratory failure: uses 4L at home chronically, currently no increased oxygen demands - Hyperglycemia: due to steroid use, will BS checks QID, Novolog coverage - Paroxysmal atrial fibrillation: Amiodarone, Xarelto - Hypokalemia: mildly low at 3.3 on admission, replaced orally, up to 3.5 yesterday, no labs today, recheck tomorrow - Constipation: 4 days since last BM, treat with miralax daily scheduled until she has a BM, PO fluids, increase activity add Colace, can try suppository PRN - High cholesterol: chronic, Lipitor - Anxiety/depression: Buspar, trazodone, Effexor, chronic and stable - GERD: Protonix - DVT prophylaxis: on Xarelto Plan: order PT, increase activity, d/c to home once medically stable, anticipate 24-48 more hours
[2016-07-24] MEDS ORDERED: DOCUSATE SODIUM 100 MG CAP PO ONE (11:00)
[2016-07-24] MEDS ORDERED: BISACODYL 10 MG SUPP PR PRN (11:00)
[2016-07-24] MEDS ORDERED: GLUCAGON FOR INJ 1 MG VIAL SQ PRN (11:15)
[2016-07-24] MEDS ORDERED: DEXTROSE 50% 50 ML SYR IV PRN (11:15)
[2016-07-24] MEDS ORDERED: GLUCOSE 40% GEL 15 GM TUBE PO PRN (11:15)
[2016-07-24] MEDS ORDERED: GLUCOSE 10 TABS/TUBE PO PRN (11:15)
[2016-07-24] MEDS: IPRATROPIUM BROMIDE/ALBUTEROL respimat INH INH SCH ×4 (11:23→22:07)
[2016-07-24] MEDS: BUDESONIDE/FORMOTEROL FUMARATE 160/4.5 60 PUFFS/INHALER INH SCH ×2 (11:24→20:37)
[2016-07-24] MEDS: INSULIN ASPART 100 UNITS/ML 3 ML PEN SC SCH ×3 (11:30→20:43)
[2016-07-24] MEDS: LEVALBUTEROL 1.25MG/0.5ML NEB INH PRN ×2 (13:10→20:20)
[2016-07-24] MEDS: IPRATROPIUM BROMIDE NEB SOLN 0.02% 2.5 ML VIAL INH PRN ×2 (13:10→20:20)
[2016-07-24] MEDS: LEVOFLOXACIN / D5W 500 MG in PREMIXED IN D5W 100 ML IV SCH (20:37)
[2016-07-24] MEDS: ACETAMINOPHEN 325 MG TAB PO PRN (20:37)
[2016-07-24] MEDS: TRAZODONE HCL 100 MG TAB PO SCH (20:38)
[2016-07-24] MEDS: DOCUSATE SODIUM 100 MG CAP PO SCH (20:39)
[2016-07-24] MEDS: BENZONATATE 100MG CAP PO PRN (20:39)
[2016-07-24] MEDS: ZOLPIDEM TARTRATE 5 MG TAB PO PRN (22:07)
[2016-07-25] VITALS (7 sets, daily range): BP systolic 147–164; BP diastolic 74–78; PULSE 86–112; TEMP 37–37.6; O2SAT 94–99
[2016-07-25 06:23] LABS: BASO % 0.3 %; BASO ABS # 0.03 K/uL (0-0.2); COMPLETE YES; EOS % 0.1 %; HEMATOCRIT 29.7 % (37-47); IG% 1.4 %; LYMPH % 14.1 %; LYMPH ABS # 1.42 K/uL (1.2-3.4); MEAN CELL VOLUME 96.7 fL (80-100); MEAN CORPUSCULAR HEMOGLOBIN 30.3 pg (25-34); MEAN CORPUSCULAR HGB CONC 31.3 g/dl (32-36); MEAN PLATELET VOLUME 10.3 fL (7.4-10.4); MONO % 9.4 %; NEUT % 74.7 %; PLATELET COUNT 218 K/uL (130-400); RED BLOOD COUNT 3.07 M/uL (4.2-5.4); WHITE BLOOD COUNT 10.08 K/uL (4.8-10.8)
[2016-07-25 06:55] LABS: CALCIUM 8.4 mg/dl (8.5-10.1); CREATININE 0.93 mg/dl (0.60-1.20); MAGNESIUM 2.5 mg/dl (1.8-2.4); POTASSIUM 4.1 mmol/L (3.5-5.1)
[2016-07-25] MEDS: INSULIN ASPART 100 UNITS/ML 3 ML PEN SC SCH ×4 (07:28→20:53)
[2016-07-25] MEDS: FERROUS SULFATE 325 MG TAB PO SCH ×2 (07:57→16:40)
[2016-07-25] MEDS: DOCUSATE SODIUM 100 MG CAP PO SCH ×2 (07:58→20:44)
[2016-07-25] MEDS: LACTOBACILLUS ACIDOPHILUS (FLORANEX) TAB PO SCH ×3 (07:58→16:40)
[2016-07-25] MEDS: BusPIRone 15 MG TAB PO SCH ×3 (07:58→20:44)
[2016-07-25] MEDS: BUDESONIDE/FORMOTEROL FUMARATE 160/4.5 60 PUFFS/INHALER INH SCH ×2 (07:58→20:43)
[2016-07-25] MEDS: IPRATROPIUM BROMIDE/ALBUTEROL respimat INH INH SCH ×4 (07:58→20:42)
[2016-07-25] MEDS: VENLAFAXINE HCL XR 75 MG CAPXR PO SCH (07:59)
[2016-07-25] MEDS: ATORVASTATIN 40 MG TAB PO SCH (07:59)
[2016-07-25] MEDS: POLYETHYLENE (MIRALAX) 17 GM PACK PO SCH (07:59)
[2016-07-25] MEDS: AMIODARONE 200 MG TAB PO SCH (07:59)
[2016-07-25] MEDS: GUAIFENESIN 600 MG TABCR PO SCH ×2 (08:00→20:44)
[2016-07-25] MEDS: PANTOprazole SOD 40 MG TAB PO SCH (08:00)
[2016-07-25] MEDS: CHOLECALCIFEROL 1000 INTER.UNIT TAB PO SCH (08:00)
[2016-07-25] MEDS: BENZONATATE 100MG CAP PO PRN (08:01)
--- NOTE | 2016-07-25 09:52 | Clinical Documentation Query ---
ROSALIO Bergeron : CLINICAL DOCUMENTATION QUERY Patient is a 76 year old female with COPD and chronic hypoxic respiratory failure, admitted for treatment of COPD exacerbation. No infiltrate noted on CXR. However, patient initially treated with Rocephin and Levaquin and later deescalated to Levaquin only. Additionally treated with nebulizers, steroids, and inhalers. In your clinical opinion is this patient being managed for: ( ) (Possible) Pneumonia ( X ) Other explanation of clinical findings (Please Explain) ( ) Unable to determine (Please Define) ( ) Need to Discuss ( ) Not Agree The medical record reflects the following clinical findings, treatment, and risk factors. Clinical Indicators:Antibiotic treatment in the setting of COPD exacerbation Treatment: IV Rocephin and Levaquin, deescalated to IV Levaquin only at this time. Risk Factors: COPD with acute exacerbation. Please clarify and document your clinical opinion in the progress notes and discharge summary. Terms such as "probable", "suspected", "likely", "questionable", "possible", or "still to be ruled out" are acceptable. IF IN AGREEMENT, YOU MUST DOCUMENT ABOVE DIAGNOSTIC STATEMENT IN DAILY PROGRESS NOTES AND DISCHARGE SUMMARY. This document is not part of the patient's record. Thank You, Karthik Fallon, RN [phone]
[2016-07-25] MEDS: LEVALBUTEROL 1.25MG/0.5ML NEB INH PRN ×2 (10:09→14:31)
[2016-07-25] MEDS: IPRATROPIUM BROMIDE NEB SOLN 0.02% 2.5 ML VIAL INH PRN (10:09)
[2016-07-25] MEDS ORDERED: IPRATROPIUM BROMIDE NEB SOLN 0.02% 2.5 ML VIAL INH ONE (12:21)
--- NOTE | 2016-07-25 12:25 | Progress Note ---
Subjective Date of Service: Jul 25, 2016. Subjective Pt evaluation today including: conversation w/ patient, physical exam, chart review, lab review, review of studies, review of inpatient medication list Patient still with coughing. Breathing improved but still feeling wheezy and some SOB. Otherwise, has moved her bowels. No urinary symptoms. No chest pain. Problem List Medical Problems: (1) Anemia Status: Acute (2) Anemia Status: Acute (3) Bronchitis Status: Acute (4) COPD exacerbation Status: Acute (5) GI bleed Status: Acute (6) Hypokalemia Status: Acute Review of Systems All Other Systems: Reviewed and Negative Medications Acetaminophen (Tylenol Tab) 650 mg Q4H PRN PO Last administered on 07/24/16 20:37; Admin Dose 650 MG; Start 07/22/16 at 23:15; Stop 08/21/16 at 23:14 Albuterol/ Ipratropium (Combivent Respimat Inh) 1 puffs QID INH Last administered on 07/25/16 07:58; Admin Dose 1 PUFFS; Start 07/24/16 at 09:00; Stop 08/23/16 at 08:59 Amiodarone HCl (Cordarone Tab) 100 mg DAILY PO Last administered on 07/25/16 07 :59; Admin Dose 100 MG; Start 07/23/16 at 09:00; Stop 08/22/16 at 08:59 Atorvastatin Calcium (Lipitor Tab) 80 mg DAILY PO Last administered on 07:59; Admin Dose 80 MG; Start 07/23/16 at 09:00; Stop 08/22/16 at 08:59 Benzonatate (Tessalon Perles Cap) 100 mg TID PRN PO Last administered on 08:01; Admin Dose 100 MG; Start 07/23/16 at 01:45; Stop 08/22/16 at 01:44 Bisacodyl (Dulcolax Supp) 10 mg DAILY PRN [place]; Start 07/24/16 at 11:00; Stop 03/31 at 10:59 Budesonide/ Formoterol Fumarate (Symbicort 160/ 4.5 Inh) 2 puffs BID INH Last administered on 07/25/16 07:58; Admin Dose 2 PUFFS; Start 07/24/16 at 09:00; Stop 08/23/16 at 08:59 Buspirone HCl (BusPAR TAB) 15 mg TID PO Last administered on 07/25/16 07:58; Admin Dose 15 MG; Start 07/23/16 at 09:00; Stop 08/22/16 at 08:59 Cholecalciferol (Vitamin D Tab) 2,000 inter.unit QAM PO Last administered on 08:00; Admin Dose 2,000 INTER.UNIT; Start 07/23/16 at 09:00; Stop at 08:59 Dextrose (Dextrose 50% 50ML Syringe) 25-50ML OF 50% DW IV FOR... UD PRN IV; Start 07/24/16 at 11:15; Stop 08/23/16 at 11:14 Docusate Sodium (coLACE CAP) 100 mg BID PO Last administered on 07/25/16 07:58 ; Admin Dose 100 MG; Start 07/24/16 at 21:00; Stop 08/23/16 at 20:59 Ferrous Sulfate 325 mg 325 mg BIDM PO Last administered on 07/25/16 07:57; Admin Dose 325 MG; Start 07/23/16 at 08:00; Stop 08/22/16 at 07:59 Folic Acid (Folvite Tab) 1 mg DAILY PO Last administered on 07/25/16 07:59; Admin Dose 1 MG; Start 07/23/16 at 09:00; Stop 08/22/16 at 08:59 Glucagon (Glucagon Inj) 1 mg UD PRN SQ; Start 07/24/16 at 11:15; Stop 08/23/16 at 11:14 Glucose (Glucose 40% Gel) 15-30 GRAMS 15 GRAMS... UD PRN PO; Start 07/24/16 at 11:15; Stop 08/23/16 at 11:14 Glucose (Glucose Chew Tab) 4-8 Tablets 4 Tabl... UD PRN PO; Start 07/24/16 at 11:15; Stop 08/23/16 at 11:14 Guaifenesin (Mucinex Contr Rel Tab) 600 mg Q12 PO Last administered on 08:00; Admin Dose 600 MG; Start 07/23/16 at 09:00; Stop 08/22/16 at 08:59 Insulin Aspart (novoLOG ASPART) SLIDING SCALE G... ACHS SC Last administered on 07/24/16 20:43; Admin Dose 1 UNITS; Start 07/24/16 at 11:00; Stop 08/23/16 at 10:59 Ipratropium [place] (Atrovent 0.02% 0.5MG/2.5ML Neb) 0.5 mg Q2H PRN INH Last administered on 07/25/16 10:09; Admin Dose 0.5 MG; Start 07/23/16 at 01:30; Stop 08/22/16 at 01:29 Lactobacillus Acidophilus (Floranex Tab) 1 tab TIDM PO Last administered on 07/25 07:58; Admin Dose 1 TAB; Start 07/23/16 at 08:00; Stop 08/22/16 at 07:59 Levalbuterol (Xopenex 1.25MG/ 0.5ML Neb) 1.25 mg Q2H PRN INH Last administered on 07/25/16 10:09; Admin Dose 1.25 MG; Start 07/23/16 at 01:30; Stop 08/22/16 at 01:29 Levofloxacin/Prmx (Levaquin / D5W/ Premixed D5W) 100 ml @ 100 mls/hr Q24H IV Last administered on 07/24/16 20:37; Admin Dose 100 MLS/HR; Start 07/23/16 at 21:00; Stop 07/30/16 at 20:59 Pantoprazole Sodium (Protonix Tab) 40 mg DAILY PO Last administered on 08:00; Admin Dose 40 MG; Start 07/23/16 at 09:00; Stop 08/22/16 at 08:59 Polyethylene (Miralax Powder Packet) 17 gm DAILY PO Last administered on 07:59; Admin Dose 17 GM; Start 07/24/16 at 09:00; Stop 08/23/16 at 08:59 Prednisone (PredniSONE TAB) 40 mg QAM PO Last administered on 07/25/16 08:00; Admin Dose 40 MG; Start 07/24/16 at 09:00; Stop 08/23/16 at 08:59 Trazodone HCl (Desyrel Tab) 200 mg HS PO Last administered on 07/24/16 20:38; Admin Dose 200 MG; Start 07/23/16 at 21:00; Stop 08/22/16 at 20:59 Venlafaxine HCl (effeXOR EXTENDED REL CAP) 225 mg DAILY PO Last administered on 07/25/16 07:59; Admin Dose 225 MG; Start 07/23/16 at 09:00; Stop 08/22/16 at 08 :59 Zolpidem Tartrate (Ambien Tab) 5 mg HSZ PRN PO Last administered on 07/24/16 22:07; Admin Dose 5 MG; Start 07/22/16 at 23:15; Stop 08/21/16 at 23:14 Objective Vital Signs Date Time Temp Pulse Resp B/P Pulse Ox O2 Delivery O2 Flow Rate FiO2 07/25/16 10:31 96 Nasal Cannula 4.0 07/25/16 10:09 112 16 94 Nasal Cannula 4.0 07/25/16 07:17 37.0 96 16 164/74 99 Nasal Cannula 4.0 07/25/16 00:11 97 156/78 07/25/16 00:10 Nasal Cannula 4.0 07/24/16 23:04 36.7 94 18 169/78 98 Nasal Cannula 4.0 07/24/16 20:20 90 16 94 Nasal Cannula 4.0 07/24/16 20:00 Nasal Cannula 4.0 07/24/16 16:00 Nasal Cannula 4.0 07/24/16 15:34 37.1 103 20 134/62 99 Nasal Cannula 4.0 07/24/16 13:11 118 16 94 Nasal Cannula 4.0 Physical Exam Comments: nad, aox3 eomi, perrl, anicteric s1 s2 rrr, no murmurs appreciated scattered wheezing, still catching breath in middle of sentence, diminished breath sounds abd soft, nt/nd +BS no LE edema Laboratory Results Last 24 Hours Test 07/24/16 16:23 07/24/16 20:18 07/25/16 06:15 07/25/16 07:27 Bedside Glucose 227 mg/dl 172 mg/dl 98 mg/dl White Blood Count 10.08 K/uL Red Blood Count 3.07 M/uL Hemoglobin 9.3 g/dL Hematocrit 29.7 % Mean Corpuscular Volume 96.7 fL Mean Corpuscular Hemoglobin 30.3 pg Mean Corpuscular Hemoglobin Concent 31.3 g/dl Platelet Count 218 K/uL Mean Platelet Volume 10.3 fL Neutrophils (%) (Auto) 74.7 % Lymphocytes (%) (Auto) 14.1 % Monocytes (%) (Auto) 9.4 % Eosinophils (%) (Auto) 0.1 % Basophils (%) (Auto) 0.3 % Neutrophils # (Auto) 7.53 K/uL Lymphocytes # (Auto) 1.42 K/uL Monocytes # (Auto) 0.95 K/uL Eosinophils # (Auto) 0.01 K/uL Basophils # (Auto) 0.03 K/uL RDW Standard Deviation 49.6 fL RDW Coefficient of Variation 14.0 % Immature Granulocyte % (Auto) 1.4 % Immature Granulocyte # (Auto) 0.14 K/uL Nucleated RBC Absolute Count (auto) 0.03 K/uL Nucleated Red Blood Cells % 0.3 % Sodium Level 148 mmol/L Potassium Level 4.1 mmol/L Chloride Level 106 mmol/L Carbon Dioxide Level 40 mmol/L Anion Gap 2.0 mmol/L Blood Urea Nitrogen 20 mg/dl Creatinine 0.93 mg/dl Est Creatinine Clear Calc Drug Dose 58.4 ml/min Estimated GFR () 70.2 Estimated GFR (Non- 60.5 BUN/Creatinine Ratio 22.0 Random Glucose 97 mg/dl Calcium Level 8.4 mg/dl Magnesium Level 2.5 mg/dl Test 07/25/16 11:14 Bedside Glucose 212 mg/dl Assessment and Plan 1. COPD exacerbation - no e/o pneumonia - would finish short-course of abx as ordered - will give nebs ATC while awake and prn sob in between - will give IV solu-medrol tonight and resume po steroids tomorrow 2. P-Afib - currently in sinus - on amiodarone - cont xarelto 3. Anxiety - cont trazodone and venlafaxine 4. Hypercholesterolemia - cont statin
[2016-07-25] MEDS: DEXTROSE IV SCH (13:51)
[2016-07-25] MEDS: [UNRECOGNIZED DRUG - OTHER] IV SCH (13:51)
[2016-07-25] MEDS: ACETAMINOPHEN 325 MG TAB PO PRN (13:55)
[2016-07-25] MEDS ORDERED: IPRATROPIUM BROMIDE NEB SOLN 0.02% 2.5 ML VIAL INH PRN (18:00)
[2016-07-25] MEDS: ALBUT/IPRATROP 3MG/0.5MG NEB 3 ML VIAL INH PRN (19:39)
[2016-07-25] MEDS: LEVOFLOXACIN / D5W 500 MG in PREMIXED IN D5W 100 ML IV SCH (20:43)
[2016-07-25] MEDS: TRAZODONE HCL 100 MG TAB PO SCH (20:44)
[2016-07-25] MEDS ORDERED: METHYLPREDNISOLONE IV 40 MG in SYRINGE 0 ML IV SCH (21:00)
[2016-07-25] MEDS: ZOLPIDEM TARTRATE 5 MG TAB PO PRN (23:44)
[2016-07-26 00:10] VITALS: BP 166/82; PULSE 95; TEMP 37.1; O2SAT 96
[2016-07-26] MEDS: DEXTROSE IV SCH ×2 (00:28→13:30)
[2016-07-26] MEDS: [UNRECOGNIZED DRUG - OTHER] IV SCH ×2 (00:28→13:30)
[2016-07-26 07:35] LABS: BASO % 0.2 %; BASO ABS # 0.02 K/uL (0-0.2); COMPLETE YES; HEMATOCRIT 32.3 % (37-47); IG% 3.1 %; LYMPH % 12.8 %; LYMPH ABS # 1.07 K/uL (1.2-3.4); MEAN CELL VOLUME 96.4 fL (80-100); MEAN CORPUSCULAR HEMOGLOBIN 29.6 pg (25-34); MEAN CORPUSCULAR HGB CONC 30.7 g/dl (32-36); MEAN PLATELET VOLUME 10.8 fL (7.4-10.4); MONO % 8.4 %; NEUT % 75.5 %; PLATELET COUNT 228 K/uL (130-400); RED BLOOD COUNT 3.35 M/uL (4.2-5.4); WHITE BLOOD COUNT 8.38 K/uL (4.8-10.8)
[2016-07-26] MEDS: BusPIRone 15 MG TAB PO SCH ×3 (07:55→20:58)
[2016-07-26] MEDS: FERROUS SULFATE 325 MG TAB PO SCH ×2 (07:55→16:45)
[2016-07-26] MEDS: LACTOBACILLUS ACIDOPHILUS (FLORANEX) TAB PO SCH ×3 (07:55→16:45)
[2016-07-26] MEDS: BUDESONIDE/FORMOTEROL FUMARATE 160/4.5 60 PUFFS/INHALER INH SCH ×2 (07:55→20:56)
[2016-07-26] MEDS: DOCUSATE SODIUM 100 MG CAP PO SCH ×2 (07:56→20:58)
[2016-07-26] MEDS: AMIODARONE 200 MG TAB PO SCH (07:56)
[2016-07-26] MEDS: VENLAFAXINE HCL XR 75 MG CAPXR PO SCH (07:56)
[2016-07-26] MEDS: ATORVASTATIN 40 MG TAB PO SCH (07:56)
[2016-07-26] MEDS: PANTOprazole SOD 40 MG TAB PO SCH (07:57)
[2016-07-26] MEDS: GUAIFENESIN 600 MG TABCR PO SCH ×2 (07:57→20:58)
[2016-07-26] MEDS: CHOLECALCIFEROL 1000 INTER.UNIT TAB PO SCH (07:58)
[2016-07-26] MEDS: POLYETHYLENE (MIRALAX) 17 GM PACK PO SCH (07:58)
[2016-07-26] MEDS: BENZONATATE 100MG CAP PO PRN (07:58)
[2016-07-26] MEDS: IPRATROPIUM BROMIDE/ALBUTEROL respimat INH INH SCH ×4 (07:59→20:55)
[2016-07-26 08:01] LABS: BUN/CREATININE RATIO 20.6 (10-20); CALCIUM 8.9 mg/dl (8.5-10.1); CREATININE 0.78 mg/dl (0.60-1.20); MAGNESIUM 2.8 mg/dl (1.8-2.4); POTASSIUM 4.8 mmol/L (3.5-5.1)
[2016-07-26 08:04] VITALS: PULSE 83; O2SAT 94
[2016-07-26] MEDS: ALBUT/IPRATROP 3MG/0.5MG NEB 3 ML VIAL INH PRN ×3 (08:04→19:05)
[2016-07-26] MEDS: INSULIN ASPART 100 UNITS/ML 3 ML PEN SC SCH ×4 (08:06→21:05)
[2016-07-26 08:16] VITALS: BP 144/81; PULSE 106; TEMP 36.5; O2SAT 100
--- NOTE | 2016-07-26 12:19 | Progress Note ---
Subjective Date of Service: Jul 26, 2016. Subjective Pt evaluation today including: conversation w/ patient, physical exam, lab review, review of studies, review of inpatient medication list Feeling slightly better. Still having some coughing but overall feeling better. TOlerating her lunch. No chest pain. No urinary or abdominal symptoms. Problem List Medical Problems: (1) Anemia Status: Acute (2) Anemia Status: Acute (3) Bronchitis Status: Acute (4) COPD exacerbation Status: Acute (5) GI bleed Status: Acute (6) Hypokalemia Status: Acute Review of Systems All Other Systems: Reviewed and Negative Medications Acetaminophen (Tylenol Tab) 650 mg Q4H PRN PO Last administered on 07/26/16 12:28; Admin Dose 650 MG; Start 07/22/16 at 23:15; Stop 08/21/16 at 23:14 Albuterol/ Ipratropium (Combivent Respimat Inh) 1 puffs QID INH Last administered on 07/25/16 12:21; Admin Dose 1 PUFFS; Start 07/24/16 at 09:00; Stop 08/23/16 at 08:59 Albuterol/ Ipratropium 3 ml 3 ml Q3RWA PRN INH Last administered on 07/26/16 12:46; Admin Dose 3 ML; Start 07/25/16 at 12:30; Stop 08/24/16 at 12:29 Amiodarone HCl (Cordarone Tab) 100 mg DAILY PO Last administered on 07/26/16 07 :56; Admin Dose 100 MG; Start 07/23/16 at 09:00; Stop 08/22/16 at 08:59 Amlodipine Besylate 2.5 mg 2.5 mg HS PO; Start 07/26/16 at 21:00; Stop 08/25/16 at 20:59 Atorvastatin Calcium (Lipitor Tab) 80 mg DAILY PO Last administered on 07:56; Admin Dose 80 MG; Start 07/23/16 at 09:00; Stop 08/22/16 at 08:59 Benzonatate (Tessalon Perles Cap) 100 mg TID PRN PO Last administered on 07:58; Admin Dose 100 MG; Start 07/23/16 at 01:45; Stop 08/22/16 at 01:44 Bisacodyl (Dulcolax Supp) 10 mg DAILY PRN [place]; Start 07/24/16 at 11:00; Stop 03/31 at 10:59 Budesonide/ Formoterol Fumarate (Symbicort 160/ 4.5 Inh) 2 puffs BID INH Last administered on 07/26/16 07:55; Admin Dose 2 PUFFS; Start 07/24/16 at 09:00; Stop 08/23/16 at 08:59 Buspirone HCl (BusPAR TAB) 15 mg TID PO Last administered on 07/26/16 13:33; Admin Dose 15 MG; Start 07/23/16 at 09:00; Stop 08/22/16 at 08:59 Cholecalciferol (Vitamin D Tab) 2,000 inter.unit QAM PO Last administered on 07:58; Admin Dose 2,000 INTER.UNIT; Start 07/23/16 at 09:00; Stop at 08:59 Dextrose (Dextrose 50% 50ML Syringe) 25-50ML OF 50% DW IV FOR... UD PRN IV; Start 07/24/16 at 11:15; Stop 08/23/16 at 11:14 Dextrose/Sodium Chloride (D5W And 1/4nss) 500 ml @ 40 mls/hr [id number] IV Last administered on 07/26/16 00:28; Admin Dose 40 MLS/HR; Start 07/25/16 at 12:30; Stop 08/24/16 at 12:29 Docusate Sodium (coLACE CAP) 100 mg BID PO Last administered on 07/26/16 07:56 ; Admin Dose 100 MG; Start 07/24/16 at 21:00; Stop 08/23/16 at 20:59 Ferrous Sulfate (Feosol Tab) 325 mg BIDM PO Last administered on 07/26/16 07:55 ; Admin Dose 325 MG; Start 07/23/16 at 08:00; Stop 08/22/16 at 07:59 Folic Acid (Folvite Tab) 1 mg DAILY PO Last administered on 07/26/16 07:56; Admin Dose 1 MG; Start 07/23/16 at 09:00; Stop 08/22/16 at 08:59 Glucagon (Glucagon Inj) 1 mg UD PRN SQ; Start 07/24/16 at 11:15; Stop 08/23/16 at 11:14 Glucose (Glucose 40% Gel) 15-30 GRAMS 15 GRAMS... UD PRN PO; Start 07/24/16 at 11:15; Stop 08/23/16 at 11:14 Glucose (Glucose Chew Tab) 4-8 Tablets 4 Tabl... UD PRN PO; Start 07/24/16 at 11:15; Stop 08/23/16 at 11:14 Guaifenesin (Mucinex Contr Rel Tab) 600 mg Q12 PO Last administered on 07:57; Admin Dose 600 MG; Start 07/23/16 at 09:00; Stop 08/22/16 at 08:59 Insulin Aspart (novoLOG ASPART) SLIDING SCALE G... ACHS SC Last administered on 07/26/16 12:20; Admin Dose 3 UNITS; Start 07/24/16 at 11:00; Stop 08/23/16 at 10:59 Ipratropium [place] (Atrovent 0.02% 0.5MG/2.5ML Neb) 0.5 mg Q6HWA PRN INH; Start 07/25/16 at 18:00; Stop 08/24/16 at 17:59 Lactobacillus Acidophilus (Floranex Tab) 1 tab TIDM PO Last administered on 07/26 12:16; Admin Dose 1 TAB; Start 07/23/16 at 08:00; Stop 08/22/16 at 07:59 Levalbuterol (Xopenex 1.25MG/ 0.5ML Neb) 1.25 mg Q2H PRN INH Last administered on 07/25/16 14:31; Admin Dose 1.25 MG; Start 07/23/16 at 01:30; Stop 08/22/16 at 01:29 Methylprednisolone Sodium Succinate/ Syringe (Solu-Medrol IV/ Syringe) 0.64 ml @ 1.5 mls/min Q12H IV; Start 07/26/16 at 21:00; Stop 08/25/16 at 20:59 Pantoprazole Sodium (Protonix Tab) 40 mg DAILY PO Last administered on 07:57; Admin Dose 40 MG; Start 07/23/16 at 09:00; Stop 08/22/16 at 08:59 Polyethylene (Miralax Powder Packet) 17 gm DAILY PO Last administered on 07:59; Admin Dose 17 GM; Start 07/24/16 at 09:00; Stop 08/23/16 at 08:59 Trazodone HCl (Desyrel Tab) 200 mg HS PO Last administered on 07/25/16 20:44; Admin Dose 200 MG; Start 07/23/16 at 21:00; Stop 08/22/16 at 20:59 Venlafaxine HCl (effeXOR EXTENDED REL CAP) 225 mg DAILY PO Last administered on 07/26/16 07:56; Admin Dose 225 MG; Start 07/23/16 at 09:00; Stop 08/22/16 at 08 :59 Zolpidem Tartrate (Ambien Tab) 5 mg HSZ PRN PO Last administered on 07/25/16 23:44; Admin Dose 5 MG; Start 07/22/16 at 23:15; Stop 08/21/16 at 23:14 Objective Vital Signs Date Time Temp Pulse Resp B/P Pulse Ox O2 Delivery O2 Flow Rate FiO2 07/26/16 10:06 Nasal Cannula 4.0 07/26/16 08:16 36.5 106 20 144/81 100 Nasal Cannula 4.0 07/26/16 08:04 83 16 94 Nasal Cannula 4.0 07/26/16 00:10 37.1 95 18 166/82 96 07/26/16 00:00 Nasal Cannula 4.0 07/25/16 20:00 Nasal Cannula 4.0 07/25/16 19:39 86 16 98 Nasal Cannula 4.0 07/25/16 16:45 Nasal Cannula 4.0 07/25/16 14:59 37.6 91 16 147/74 97 Nasal Cannula 4.0 07/25/16 14:31 98 16 98 Nasal Cannula 4.0 Physical Exam Comments: nad, aox3 eomi, perrl s1 s2 rrr, no murmurs appreciated diminished breath sounds, scattered wheezing, 4L O2 nasal cannula abd soft nt/nd +BS no LE edema cn 2-12 grossly intact without facial drooping Laboratory Results Last 24 Hours Test 07/25/16 16:26 07/25/16 20:22 07/26/16 07:15 07/26/16 07:48 Bedside Glucose 241 mg/dl 188 mg/dl 175 mg/dl White Blood Count 8.38 K/uL Red Blood Count 3.35 M/uL Hemoglobin 9.9 g/dL Hematocrit 32.3 % Mean Corpuscular Volume 96.4 fL Mean Corpuscular Hemoglobin 29.6 pg Mean Corpuscular Hemoglobin Concent 30.7 g/dl Platelet Count 228 K/uL Mean Platelet Volume 10.8 fL Neutrophils (%) (Auto) 75.5 % Lymphocytes (%) (Auto) 12.8 % Monocytes (%) (Auto) 8.4 % Eosinophils (%) (Auto) 0.0 % Basophils (%) (Auto) 0.2 % Neutrophils # (Auto) 6.33 K/uL Lymphocytes # (Auto) 1.07 K/uL Monocytes # (Auto) 0.70 K/uL Eosinophils # (Auto) 0.00 K/uL Basophils # (Auto) 0.02 K/uL RDW Standard Deviation 48.7 fL RDW Coefficient of Variation 13.9 % Immature Granulocyte % (Auto) 3.1 % Immature Granulocyte # (Auto) 0.26 K/uL Nucleated RBC Absolute Count (auto) 0.07 K/uL Nucleated Red Blood Cells % 0.9 % Sodium Level 145 mmol/L Potassium Level 4.8 mmol/L Chloride Level 103 mmol/L Carbon Dioxide Level 39 mmol/L Anion Gap 3.0 mmol/L Blood Urea Nitrogen 16 mg/dl Creatinine 0.78 mg/dl Est Creatinine Clear Calc Drug Dose 69.7 ml/min Estimated GFR () 86.8 Estimated GFR (Non- 74.9 BUN/Creatinine Ratio 20.6 Random Glucose 200 mg/dl Calcium Level 8.9 mg/dl Magnesium Level 2.8 mg/dl Assessment and Plan 1. COPD exacerbation - no e/o pneumonia - would finish short-course of abx as ordered - will give nebs ATC while awake and prn sob in between - will give IV solu-medrol tonight and re-assess tomorrow 2. P-Afib - currently in sinus - on amiodarone - cont xarelto 3. Anxiety - cont trazodone and venlafaxine 4. Hypercholesterolemia - cont statin 5. nocturnal HTN - will start on low-dose amlodipine to be given at bedtime
[2016-07-26] MEDS: ACETAMINOPHEN 325 MG TAB PO PRN (12:28)
[2016-07-26 12:46] VITALS: PULSE 99; O2SAT 94
[2016-07-26 15:34] VITALS: BP 159/74; PULSE 96; TEMP 36.7; O2SAT 92
[2016-07-26 19:06] VITALS: PULSE 78; O2SAT 92
[2016-07-26] MEDS: METHYLPREDNISOLONE IV 40 MG in SYRINGE 0 ML IV SCH (20:57)
[2016-07-26] MEDS: TRAZODONE HCL 100 MG TAB PO SCH (20:57)
[2016-07-26] MEDS ORDERED: AMLODIPINE BESYLATE 5 MG TAB PO SCH (21:00)
[2016-07-26] MEDS: ZOLPIDEM TARTRATE 5 MG TAB PO PRN (23:09)
[2016-07-27] VITALS (7 sets, daily range): BP systolic 162–174; BP diastolic 70–81; PULSE 74–98; TEMP 36.7–37.1; O2SAT 92–100
[2016-07-27] MEDS: DEXTROSE IV SCH ×2 (03:42→14:12)
[2016-07-27] MEDS: [UNRECOGNIZED DRUG - OTHER] IV SCH ×2 (03:42→14:12)
[2016-07-27] MEDS: ALBUT/IPRATROP 3MG/0.5MG NEB 3 ML VIAL INH PRN ×3 (06:33→21:03)
[2016-07-27] MEDS: FERROUS SULFATE 325 MG TAB PO SCH ×2 (08:11→17:01)
[2016-07-27] MEDS: LACTOBACILLUS ACIDOPHILUS (FLORANEX) TAB PO SCH ×3 (08:11→17:01)
[2016-07-27] MEDS: BUDESONIDE/FORMOTEROL FUMARATE 160/4.5 60 PUFFS/INHALER INH SCH ×2 (08:11→20:57)
[2016-07-27] MEDS: BusPIRone 15 MG TAB PO SCH ×3 (08:12→20:57)
[2016-07-27] MEDS: AMIODARONE 200 MG TAB PO SCH (08:12)
[2016-07-27] MEDS: VENLAFAXINE HCL XR 75 MG CAPXR PO SCH (08:12)
[2016-07-27] MEDS: DOCUSATE SODIUM 100 MG CAP PO SCH ×2 (08:12→20:59)
[2016-07-27] MEDS: POLYETHYLENE (MIRALAX) 17 GM PACK PO SCH (08:13)
[2016-07-27] MEDS: GUAIFENESIN 600 MG TABCR PO SCH ×2 (08:13→20:59)
[2016-07-27] MEDS: PANTOprazole SOD 40 MG TAB PO SCH (08:13)
[2016-07-27] MEDS: ATORVASTATIN 40 MG TAB PO SCH (08:13)
[2016-07-27] MEDS: CHOLECALCIFEROL 1000 INTER.UNIT TAB PO SCH (08:13)
[2016-07-27] MEDS: INSULIN ASPART 100 UNITS/ML 3 ML PEN SC SCH ×4 (08:19→20:59)
[2016-07-27] MEDS: IPRATROPIUM BROMIDE/ALBUTEROL respimat INH INH SCH ×4 (08:20→20:57)
[2016-07-27] MEDS: METHYLPREDNISOLONE IV 40 MG in SYRINGE 0 ML IV SCH (08:24)
--- NOTE | 2016-07-27 08:40 | Progress Note ---
Subjective Date of Service: Jul 27, 2016. Subjective Feeling better. Breathing improved from yesterday. Otherwise, no cp, no abd pain, tolerating diet well. Problem List Medical Problems: (1) Anemia Status: Acute (2) Anemia Status: Acute (3) Bronchitis Status: Acute (4) COPD exacerbation Status: Acute (5) GI bleed Status: Acute (6) Hypokalemia Status: Acute Review of Systems All Other Systems: Reviewed and Negative Medications Acetaminophen (Tylenol Tab) 650 mg Q4H PRN PO Last administered on 07/27/16 11:25; Admin Dose 650 MG; Start 07/22/16 at 23:15; Stop 08/21/16 at 23:14 Albuterol/ Ipratropium (Combivent Respimat Inh) 1 puffs QID INH Last administered on 07/25/16 12:21; Admin Dose 1 PUFFS; Start 07/24/16 at 09:00; Stop 08/23/16 at 08:59 Albuterol/ Ipratropium 3 ml 3 ml Q3RWA PRN INH Last administered on 07/27/16 13:06; Admin Dose 3 ML; Start 07/25/16 at 12:30; Stop 08/24/16 at 12:29 Amiodarone HCl (Cordarone Tab) 100 mg DAILY PO Last administered on 07/27/16 08 :12; Admin Dose 100 MG; Start 07/23/16 at 09:00; Stop 08/22/16 at 08:59 Amlodipine Besylate (Norvasc Tab) 2.5 mg HS PO Last administered on 07/26/16 21 :00; Admin Dose 2.5 MG; Start 07/26/16 at 21:00; Stop 08/25/16 at 20:59 Atorvastatin Calcium (Lipitor Tab) 80 mg DAILY PO Last administered on 08:13; Admin Dose 80 MG; Start 07/23/16 at 09:00; Stop 08/22/16 at 08:59 Benzonatate (Tessalon Perles Cap) 100 mg TID PRN PO Last administered on 07:58; Admin Dose 100 MG; Start 07/23/16 at 01:45; Stop 08/22/16 at 01:44 Bisacodyl (Dulcolax Supp) 10 mg DAILY PRN [place]; Start 07/24/16 at 11:00; Stop 03/31 at 10:59 Budesonide/ Formoterol Fumarate (Symbicort 160/ 4.5 Inh) 2 puffs BID INH Last administered on 07/27/16 08:11; Admin Dose 2 PUFFS; Start 07/24/16 at 09:00; Stop 08/23/16 at 08:59 Buspirone HCl (BusPAR TAB) 15 mg TID PO Last administered on 07/27/16 12:45; Admin Dose 15 MG; Start 07/23/16 at 09:00; Stop 08/22/16 at 08:59 Cholecalciferol (Vitamin D Tab) 2,000 inter.unit QAM PO Last administered on 08:13; Admin Dose 2,000 INTER.UNIT; Start 07/23/16 at 09:00; Stop at 08:59 Dextrose (Dextrose 50% 50ML Syringe) 25-50ML OF 50% DW IV FOR... UD PRN IV; Start 07/24/16 at 11:15; Stop 08/23/16 at 11:14 Dextrose/Sodium Chloride (D5W And 1/4nss) 500 ml @ 40 mls/hr [id number] IV Last administered on 07/27/16 03:42; Admin Dose 40 MLS/HR; Start 07/25/16 at 12:30; Stop 08/24/16 at 12:29 Docusate Sodium (coLACE CAP) 100 mg BID PO Last administered on 07/27/16 08:12 ; Admin Dose 100 MG; Start 07/24/16 at 21:00; Stop 08/23/16 at 20:59 Ferrous Sulfate (Feosol Tab) 325 mg BIDM PO Last administered on 07/27/16 08:11 ; Admin Dose 325 MG; Start 07/23/16 at 08:00; Stop 08/22/16 at 07:59 Folic Acid (Folvite Tab) 1 mg DAILY PO Last administered on 07/27/16 08:13; Admin Dose 1 MG; Start 07/23/16 at 09:00; Stop 08/22/16 at 08:59 Glucagon (Glucagon Inj) 1 mg UD PRN SQ; Start 07/24/16 at 11:15; Stop 08/23/16 at 11:14 Glucose (Glucose 40% Gel) 15-30 GRAMS 15 GRAMS... UD PRN PO; Start 07/24/16 at 11:15; Stop 08/23/16 at 11:14 Glucose (Glucose Chew Tab) 4-8 Tablets 4 Tabl... UD PRN PO; Start 07/24/16 at 11:15; Stop 08/23/16 at 11:14 Guaifenesin (Mucinex Contr Rel Tab) 600 mg Q12 PO Last administered on 08:13; Admin Dose 600 MG; Start 07/23/16 at 09:00; Stop 08/22/16 at 08:59 Insulin Aspart (novoLOG ASPART) SLIDING SCALE G... ACHS SC Last administered on 07/27/16 12:44; Admin Dose 3 UNITS; Start 07/24/16 at 11:00; Stop 08/23/16 at 10:59 Ipratropium [place] (Atrovent 0.02% 0.5MG/2.5ML Neb) 0.5 mg Q6HWA PRN INH; Start 07/25/16 at 18:00; Stop 08/24/16 at 17:59 Lactobacillus Acidophilus (Floranex Tab) 1 tab TIDM PO Last administered on 07/27 12:43; Admin Dose 1 TAB; Start 07/23/16 at 08:00; Stop 08/22/16 at 07:59 Levalbuterol (Xopenex 1.25MG/ 0.5ML Neb) 1.25 mg Q2H PRN INH Last administered on 07/25/16 14:31; Admin Dose 1.25 MG; Start 07/23/16 at 01:30; Stop 08/22/16 at 01:29 Pantoprazole Sodium (Protonix Tab) 40 mg DAILY PO Last administered on 08:13; Admin Dose 40 MG; Start 07/23/16 at 09:00; Stop 08/22/16 at 08:59 Polyethylene (Miralax Powder Packet) 17 gm DAILY PO Last administered on 07:59; Admin Dose 17 GM; Start 07/24/16 at 09:00; Stop 08/23/16 at 08:59 Prednisone (PredniSONE TAB) 40 mg BIDM PO; Start 07/27/16 at 17:00; Stop at 16:59 Trazodone HCl (Desyrel Tab) 200 mg HS PO Last administered on 07/26/16 20:57; Admin Dose 200 MG; Start 07/23/16 at 21:00; Stop 08/22/16 at 20:59 Venlafaxine HCl (effeXOR EXTENDED REL CAP) 225 mg DAILY PO Last administered on 07/27/16 08:12; Admin Dose 225 MG; Start 07/23/16 at 09:00; Stop 08/22/16 at 08 :59 Zolpidem Tartrate (Ambien Tab) 5 mg HSZ PRN PO Last administered on 07/26/16 23:09; Admin Dose 5 MG; Start 07/22/16 at 23:15; Stop 08/21/16 at 23:14 Objective Vital Signs Date Time Temp Pulse Resp B/P Pulse Ox O2 Delivery O2 Flow Rate FiO2 07/27/16 08:19 36.7 98 20 162/70 100 Nasal Cannula 2.0 07/27/16 06:33 88 18 92 Nasal Cannula 4.0 07/27/16 00:00 Nasal Cannula 4.0 07/27/16 00:00 37.1 89 20 174/81 98 4.0 07/26/16 19:06 78 18 92 Nasal Cannula 4.0 07/26/16 16:00 Nasal Cannula 4.0 07/26/16 15:34 36.7 96 18 159/74 92 Nasal Cannula 4.0 07/26/16 12:46 99 16 94 Nasal Cannula 4.0 07/26/16 10:06 Nasal Cannula 4.0 Physical Exam Comments: nad aox3 eomi, perrl, anicteric irreg irreg, no murmurs appreciated diminished lunch sounds b/l, scattered occasional wheezing, no crackles abd soft,nt nd +BS no LE edema cn 2-12 grossly intact Laboratory Results Last 24 Hours Test 07/26/16 11:56 07/26/16 16:29 07/26/16 20:36 07/27/16 07:28 Bedside Glucose 243 mg/dl 239 mg/dl 179 mg/dl 208 mg/dl Assessment and Plan 1. COPD exacerbation - no e/o pneumonia - finished short-course abx - switch IV steroids to po prednisone 40mg bid for now and taper slowly - cont nebs atc and prn - improving 2. P-Afib - currently in sinus - on amiodarone - cont xarelto, dose confirmed 3. Anxiety - cont trazodone and venlafaxine 4. Hypercholesterolemia - cont statin 5. nocturnal HTN -will increase amlodipine to 5 mg - BP persistently elevated
[2016-07-27] MEDS: ACETAMINOPHEN 325 MG TAB PO PRN (11:25)
[2016-07-27] MEDS ORDERED: RIVA1TAB4 PO (13:46)
[2016-07-27] MEDS ORDERED: PRD20 PO (18:10)
[2016-07-27] MEDS: TRAZODONE HCL 100 MG TAB PO SCH (20:58)
[2016-07-27] MEDS ORDERED: AMLODIPINE BESYLATE 5 MG TAB PO SCH (21:00)
[2016-07-27] MEDS: ZOLPIDEM TARTRATE 5 MG TAB PO PRN (23:37)
[2016-07-28] VITALS: BP 158/88; PULSE 96; TEMP 37.2; O2SAT 97
[2016-07-28] MEDS: [UNRECOGNIZED DRUG - OTHER] IV SCH (02:56)
[2016-07-28] MEDS: DEXTROSE IV SCH (02:56)
[2016-07-28 07:27] VITALS: BP 158/74; PULSE 87; TEMP 36.7; O2SAT 100
[2016-07-28] MEDS: POLYETHYLENE (MIRALAX) 17 GM PACK PO SCH (07:57)
[2016-07-28] MEDS: INSULIN ASPART 100 UNITS/ML 3 ML PEN SC SCH ×2 (07:58→13:09)
[2016-07-28] MEDS: FERROUS SULFATE 325 MG TAB PO SCH (07:58)
[2016-07-28] MEDS: LACTOBACILLUS ACIDOPHILUS (FLORANEX) TAB PO SCH ×2 (07:59→13:06)
[2016-07-28] MEDS: BusPIRone 15 MG TAB PO SCH ×2 (07:59→13:06)
[2016-07-28] MEDS: DOCUSATE SODIUM 100 MG CAP PO SCH (07:59)
[2016-07-28] MEDS: AMIODARONE 200 MG TAB PO SCH (07:59)
[2016-07-28] MEDS: BUDESONIDE/FORMOTEROL FUMARATE 160/4.5 60 PUFFS/INHALER INH SCH (07:59)
[2016-07-28] MEDS: ATORVASTATIN 40 MG TAB PO SCH (08:00)
[2016-07-28] MEDS: GUAIFENESIN 600 MG TABCR PO SCH (08:00)
[2016-07-28] MEDS: VENLAFAXINE HCL XR 75 MG CAPXR PO SCH (08:00)
[2016-07-28] MEDS: PANTOprazole SOD 40 MG TAB PO SCH (08:00)
[2016-07-28] MEDS: CHOLECALCIFEROL 1000 INTER.UNIT TAB PO SCH (08:01)
[2016-07-28] MEDS: IPRATROPIUM BROMIDE/ALBUTEROL respimat INH INH SCH ×2 (08:01→12:55)
[2016-07-28] MEDS ORDERED: RIVAROXABAN 20 MG TAB PO SCH (09:00)
--- NOTE | 2016-07-28 09:58 | Discharge Instructions ---
Discharge Instructions Date of Service Jul 28, 2016. Admission Reason for Admission: Copd Exacerbation, Hypoxia Discharge Discharge Diagnosis / Problem: COPD exacerbation Discharge Goals Goal(s): Improve function, Improve disease control Activity Recommendations Activity Limitations: resume your previous activity . Current Hospital Diet Patient's current hospital diet: Regular Diet Discharge Diet Recommended Diet: AHA Diet (Heart Healthy), Low Sodium Diet (2gm Na) Pending Studies Studies pending at discharge: no Medical Emergencies . Who to Call and When: Medical Emergencies: If at any time you feel your situation is an emergency, please call 911 immediately. . Non-Emergent Contact Non-Emergency issues call your: Primary Care Provider . . "Provider Documentation" section prepared by Jody Yuan. VTE Core Measure Inpt VTE Proph given/why not?: Other Anticoagulation, SCD's
--- NOTE | 2016-07-28 10:04 | Discharge Summary ---
Discharge Summary Date of Service Jul 28, 2016. Discharge Summary Admission Date: Jul 23, 2016 at 00:55 Discharge Date: Jul 28, 2016 Discharge Disposition: Home Principal Diagnosis: COPD exacerbation Immunizations: Have You Had Influenza Vaccine: Yes Influenza Vaccine Date: Apr 12, 2013 History of Tetanus Vaccine?: Unknown Tetanus Immunization Date: Nov 09, 2007 History of Pneumococcal: Yes Pneumococcal Date: Mar 10, 2011 History of Hepatitis B Vaccine: No Medication Reconciliation New Medications: Prednisone (Prednisone) 20 Mg Tab 40 MG PO BIDM, #15 TAB take 40 mg twice daily for 2 days then take 20 mg twice daily for 2 days then take 20 mg once daily for 2 days then take 10 mg once daily for 2 days then stop Continued Medications: Amiodarone HCl (Amiodarone HCl) 200 Mg Tab 100 MG PO DAILY for 30 Days, #15 TAB Atorvastatin (Lipitor) 80 Mg Tab 80 MG PO DAILY Budesonide/Formoterol Fumarate (Symbicort 160-4.5 Mcg/Act) 60 Puffs/Inhaler Aero 2 PUFFS INH BID Buspirone HCl (Buspirone HCl) 15 Mg Tab 15 MG PO TID Cholecalciferol (Vitamin D) 2,000 Unit Tab 2000 INTER.UNIT PO DAILY Ferrous Sulfate (Kp Ferrous Sulfate) 325 Mg Tab 1 TAB PO BID Folic Acid (Folvite) 1 Mg Tab 1 MG PO DAILY Guaifenesin Ext Rel (Mucinex Ext Rel) 600 Mg Tabcr 600 MG PO Q12 Ipratropium-Albuterol (Combivent Respimat) 120 Puffs/Inhaler Aero 1 PUFFS INH QID for 30 Days Lactobacillus Acidophilus (Floranex) 1 Tab Tab 1 TAB PO TIDM, #30 TAB Oxygen (Oxygen) Gas 2 LITERS NA UD Pantoprazole (Pantoprazole Sodium) 40 Mg Tab 40 MG PO DAILY Rivaroxaban (Xarelto) 20 Mg Tab 20 MG PO DAILY, TAB Trazodone HCl (Trazodone HCl) 100 Mg Tab 200 MG PO HS Venlafaxine Hcl (Effexor Extended Rel) 150 Mg Capcr 150 MG PO DAILY TAKE WITH 75MG = 225 MG TOTAL Venlafaxine Hcl (Effexor Extended Rel) 75 Mg Capcr 75 MG PO DAILY TAKE WITH 150 MG = 225MG TOTAL Hospital Course The patient is a 76-year-old female who presents emergency department with worsening shortness of breath over the past few days. She has a known history of severe COPD, requiring 4 L of nasal cannula oxygen at home continuously. She has developed a headache, runny nose, cough productive of thick yellow sputum. She has not had any recent travel, and is not aware of any sick exposures. She is noted to just have started Xarelto 2 weeks ago due to atrial fibrillation. On this admission, patient was started on IV steroids, nebulizers, and abx. She completed a very short-course of abx as there was no e/o pneumonia on CXR. She gradually improved on steroids with around the clock nebs plus prn and eventually switched over to oral steroids and tolerated it well. Her BP were also elevated 150-170 systolic and were persistently high. These may have been exacerbated by steroid therapy, however, I did start her on 5mg of amlodipine with relatively good results with BP systolic now 140-150 and I expect this to improve over the next few weeks as well. On day of discharge, patient feeling well and saturating well on home O2 rate of 4L/min. She still has some coughing but improved. She otherwise has no chest pain, no abd pain, no LE swelling. Vital Signs Date Time Temp Pulse Resp B/P Pulse Ox O2 Delivery O2 Flow Rate FiO2 07/28/16 09:57 Nasal Cannula 4.0 07/28/16 07:27 36.7 87 18 158/74 100 nad, aox3 eomi, perrl, anicteric no murmurs appreciated, s1 s2 rrr diminished breath sounds but no wheezing and no rhonchi abd soft, nt/nd +BS no cva tenderness no LE edema 1. COPD exacerbation - no e/o pneumonia - finished short-course abx - switch IV steroids to po prednisone 40mg bid for now and taper slowly - cont combivent 4 times daily and as needed for the next 2-3 days at home - steroid taper instructions written on script 2. P-Afib - currently in sinus - on amiodarone - cont xarelto, dose confirmed 3. Anxiety - cont trazodone and venlafaxine 4. Hypercholesterolemia - cont statin 5. nocturnal HTN -will increase amlodipine to 5 mg - BP persistently elevated Total Time Spent: Less than 30 minutes This includes examination of the patient, discharge planning, medication reconciliation, and communication with other providers. Discharge Instructions Please refer to the electronic Patient Visit Report (Discharge Instructions) for additional information. Additional Copies To Ray Pereira III, CRNP
[2016-07-28 10:12] VITALS: PULSE 101; O2SAT 97
[2016-07-28] MEDS: ALBUT/IPRATROP 3MG/0.5MG NEB 3 ML VIAL INH PRN (10:12)
[2016-07-28 10:31] VITALS: BP 158/74; PULSE 101; TEMP 36.7; O2SAT 97
[2016-07-28 10:57] LABS: BUN/CREATININE RATIO 21.7 (10-20); CALCIUM 8.7 mg/dl (8.5-10.1); CREATININE 0.92 mg/dl (0.60-1.20)
[2016-07-28 13:15] VITALS: Ht 160 cm; Wt 95.8 kg
[2016-12-19] MEDS ORDERED: PRED10TA PO (09:52)
[2016-12-19] MEDS ORDERED: BUDE0.5S INH (09:52)
[2016-12-19] MEDS ORDERED: UMEC1INH INH (09:52)
[2016-12-19] MEDS ORDERED: LVQ750 PO (09:52)
[2016-12-19] MEDS ORDERED: IPRA1AER2 INH (09:52)
== END 2016-07-28 13:48 | disposition home or self-care (01) | DRG 191 ==
LOC: ENRESERVDT → ENRESERVTM → C.EDB 19:44 → C.MS2W 07-23 00:55
PROVIDERS: ADMIT Hospitalist; ATTEND Internal Medicine
DX: J44.1 Chronic obstructive pulmonary disease with (acute) exacerbation (principal); J96.11 Chronic respiratory failure with hypoxia; E87.0 Hyperosmolality and hypernatremia; J44.0 Chronic obstructive pulmonary disease with (acute) lower respiratory infection; J40 Bronchitis, not specified as acute or chronic; I48.0 Paroxysmal atrial fibrillation; I10 Essential (primary) hypertension; E87.8 Other disorders of electrolyte and fluid balance, not elsewhere classified; K21.9 Gastro-esophageal reflux disease without esophagitis; E87.6 Hypokalemia; E78.00 Pure hypercholesterolemia, unspecified; F41.9 Anxiety disorder, unspecified; K59.00 Constipation, unspecified; F32.9 Major depressive disorder, single episode, unspecified; D64.9 Anemia, unspecified; E11.9 Type 2 diabetes mellitus without complications; E78.5 Hyperlipidemia, unspecified; Z87.19 Personal history of other diseases of the digestive system; Z99.81 Dependence on supplemental oxygen; Z87.891 Personal history of nicotine dependence; Z79.51 Long term (current) use of inhaled steroids; Z79.899 Other long term (current) drug therapy

== ENCOUNTER 2016-09-10 11:49 | Inpatient (IN) | payer OTHER, MEDICARE ==
[2016-09-10] VITALS (12 sets, daily range): BP systolic 145–157; BP diastolic 69–78; PULSE 98–124; TEMP 36.4; O2SAT 94–100; Ht 165.1 cm; Wt 94.0 kg
[~2016-09-10] VITALS: Ht 165.1 cm; Wt 94.0 kg
[~2016-09-10 11:49] MED LIST changes: -BRVIN INH; +FERR1TAB13 PO; -FERR325T51 PO; -LEVA1.25 INH; +PANT40TA2 PO; +PRD20 PO; -PRT/40 PO; +RIVA1TAB4 PO; -SPRIN/30 INH
[2016-09-10] MEDS ORDERED: METHYLPREDNISOLONE 125 MG VIAL IV STA (12:13)
--- NOTE | 2016-09-10 12:13 | EMERGENCY ROOM VISIT NOTE ---
History Report prepared by Seth: Karthik Chicas Under the Supervision of: Dr. Jennie Laws D.O. First contact with patient: 11:59 Chief Complaint: RESPIRATORY PROBLEMS Stated Complaint: CAN'T BREATHE History of Present Illness The patient is a 76 year old female who presents to the Emergency Room with complaints of worsening shortness of breath beginning yesterday. Per the patient and her daughters, she had cold symptoms yesterday with a productive cough with yellow sputum. Overnight last night, her shortness of breath worsened , and were worse upon waking up this morning. She denies any current pain including abdominal pain, but admits to having swelling in her legs. The patient has a history of COPD and atrial fibrillation. Per the nurse, her oxygen saturation was 58% on 4 liters of supplemental oxygen when the patient got to the ER room. The patient admits to being on blood thinners, but does not take a water pill. Source of History: patient, family, nursing staff Onset: yesterday Position: other (lungs) Quality: other (SOB) Timing: worsening Associated Symptoms: No abdominal pain Note: Patient admits to having leg swelling. Review of Systems See HPI for pertinent positives & negatives. A total of 10 systems reviewed and were otherwise negative. Past Medical & Surgical Medical Problems: (1) Acute on chronic respiratory failure (2) Diab Zoey Wo Compl, Type Ii Or Unspec Type, Not Uncntrld (3) Diverticulosis Colon (W/O Ment Of Hemorrhage) (4) Hyperlipidemia Nec/Nos (5) Hypertension Nos (6) Obstr Chronic Bronchitis, W (Acute) Exacerbation (7) Paroxysmal a-fib (8) Pneumonia, Organism Nos (9) Pure Hypercholesterolem (10) Tubal Ligation Status Family History Diabetes mellitus FH: cancer Hypertension Social History Smoking Status: Former Smoker Alcohol Use: none Drug Use: none Housing Status: lives with family Occupation Status: retired Current/Historical Medications Scheduled Amiodarone HCl (Amiodarone HCl), 100 MG PO DAILY Atorvastatin (Lipitor), 80 MG PO DAILY Budesonide/Formoterol Fumarate (Symbicort 160-4.5 Mcg/Act), 2 PUFFS INH BID Buspirone HCl (Buspirone HCl), 15 MG PO TID Cholecalciferol (Vitamin D), 2,000 INTER.UNIT PO DAILY Ferrous Sulfate (Kp Ferrous Sulfate), 1 TAB PO BID Folic Acid (Folvite), 1 MG PO DAILY Guaifenesin Ext Rel (Mucinex Ext Rel), 600 MG PO Q12 Ipratropium-Albuterol (Combivent Respimat), 1 PUFFS INH QID Lactobacillus Acidophilus (Floranex), 1 TAB PO TIDM Oxygen (Oxygen), 2 LITERS NA UD Pantoprazole (Pantoprazole Sodium), 40 MG PO DAILY Prednisone (Prednisone), 40 MG PO BIDM Rivaroxaban (Xarelto), 20 MG PO DAILY Trazodone HCl (Trazodone HCl), 200 MG PO HS Venlafaxine Hcl (Effexor Extended Rel), 150 MG PO DAILY Venlafaxine Hcl (Effexor Extended Rel), 75 MG PO DAILY Allergies Coded Allergies: Morphine (Verified Allergy, Mild, Causes Afib, 07/22/16) Mushroom (Verified Allergy, Unknown, 07/22/16) Theophyllines (Verified Allergy, Unknown, Unknown, 07/22/16) Reported by daughter and listed in [facility] record. Codeine (Verified Adverse Reaction, Unknown, HYPERVENTILATES, 07/22/16) Physical Exam Vital Signs Date Time Temp Pulse Resp B/P Pulse Ox O2 Delivery O2 Flow Rate FiO2 09/10/16 15:05 100 BiPAP 5.0 45 09/10/16 15:01 108 22 158/70 100 BiPAP 5.0 45 09/10/16 14:00 166/49 09/10/16 13:49 114 31 99 09/10/16 13:30 180/62 09/10/16 13:19 122 30 99 09/10/16 13:19 124 95 45 09/10/16 13:14 104 09/10/16 13:09 BiPAP 09/10/16 13:01 156/109 09/10/16 12:49 129 29 100 09/10/16 12:30 152/98 09/10/16 12:24 106 24 178/72 99 Nebulizer 09/10/16 12:23 178/72 09/10/16 12:23 100 20 94 Nasal Cannula 4.0 09/10/16 12:19 107 25 97 09/10/16 12:08 94 Nasal Cannula 4.0 09/10/16 12:08 94 Nasal Cannula 4.0 09/10/16 12:07 96 Nasal Cannula 4.0 09/10/16 12:06 157/98 09/10/16 11:53 36.4 106 26 147/74 65 Nasal Cannula Physical Exam General: Morbidly obese female, appearing in severe respiratory distress. HEENT: Head - normocephalic and atraumatic Pupils are equal, round, and reactive to light. Extraocular eye muscles are intact, and sclera are anicteric. Nose - moist nasal mucosa without discharge. Mouth - moist buccal mucosa. Oropharynx is nonerythematous and there is no tonsillar exudate or edema noted. Neck: Supple; no JVD, nuchal rigidity, cervical lymphadenopathy. Heart: Distant heart sounds secondary to body habitus. Lungs: Wheezes, rales, or rhonchi noted. Abdomen: Soft, completely nontender, nondistended, with good bowel sounds. There are no palpable pulsatile masses or hepatosplenomegaly. There is no guarding, rigidity, or rebound noted. Extremities: No evidence of cyanosis, clubbing. 1+ pitting edema in the legs. There are easily palpable peripheral pulses. Skin: warm and dry with good turgor and no rashes. Medical Decision & Procedures ER Provider Diagnostic Interpretation: Radiology results as stated below per my review and the radiologist's interpretation: CHEST ONE VIEW PORTABLE FINDINGS: The heart is normal in size. Bilateral hilar prominence, unchanged. No pleural effusions. No pneumothorax. Hazy appearance the left lung base remains unchanged and may represent prominent mediastinal fat. No new focal lung consolidations. IMPRESSION: No significant change compared to the prior study. No acute process. No evidence for pulmonary edema. Electronically signed by: Jason Bosch M.D. 09/10/2016 12:16 PM Dictated Date/Time: 09/10/2016 12:15 PM Laboratory Results Test 09/10/16 12:00 Immature Granulocyte % (Auto) 0.1 % White Blood Count 7.60 K/uL (4.8-10.8) Red Blood Count 3.07 M/uL (4.2-5.4) Hemoglobin 9.0 g/dL (12.0-16.0) Hematocrit 30.3 % (37-47) Mean Corpuscular Volume 98.7 fL (80-100) Mean Corpuscular Hemoglobin 29.3 pg (25-34) Mean Corpuscular Hemoglobin Concent 29.7 g/dl (32-36) Platelet Count 231 K/uL (130-400) Mean Platelet Volume 10.0 fL (7.4-10.4) Neutrophils (%) (Auto) 86.7 % Lymphocytes (%) (Auto) 7.0 % Monocytes (%) (Auto) 5.9 % Eosinophils (%) (Auto) 0.0 % Basophils (%) (Auto) 0.3 % Neutrophils # (Auto) 6.59 K/uL (1.4-6.5) Lymphocytes # (Auto) 0.53 K/uL (1.2-3.4) Monocytes # (Auto) 0.45 K/uL (0.11-0.59) Eosinophils # (Auto) 0.00 K/uL (0-0.5) Basophils # (Auto) 0.02 K/uL (0-0.2) Immature Granulocyte # (Auto) 0.01 K/uL (0.00-0.02) Nucleated RBC Absolute Count (auto) 0.02 K/uL (0-0) Nucleated Red Blood Cells % 0.2 % Prothrombin Time 10.0 SECONDS (9.0-12.0) Prothromb Time International Ratio 0.9 (0.9-1.1) Activated Partial Thromboplast Time 24.5 SECONDS (21.0-31.0) Partial Thromboplastin Ratio 0.9 Total Bilirubin 0.3 mg/dl (0.2-1) Aspartate Amino Transf (AST/SGOT) 22 U/L (15-37) Alanine Aminotransferase (ALT/SGPT) 19 U/L (12-78) Alkaline Phosphatase 93 U/L (45-117) Pro-B-Type Natriuretic Peptide 277 pg/ml (0-900) Total Protein 7.0 gm/dl (6.4-8.2) Albumin 3.2 gm/dl (3.4-5.0) Globulin 3.8 gm/dl (2.5-4.0) Albumin/Globulin Ratio 0.8 (0.9-2) Laboratory results per my review. Medications Administered Medications (Trade) Dose Ordered Sig/Buddy Route Start Time Stop Time Status Last Admin Dose Admin Methylprednisolone Sodium Succinate (Solu-Medrol IV) 125 mg NOW STAT IV 09/10/16 12:13 09/10/16 12:14 DC 09/10/16 12:19 125 MG Albuterol/ Ipratropium 12 ml 12 ml ONE ONCE INH 09/10/16 12:15 09/10/16 12:16 DC 09/10/16 12:23 12 ML Furosemide/Syringe (Lasix Inj/ Syringe) 8 ml @ 4 mls/min ONE STAT IV 09/10/16 14:01 09/10/16 14:03 DC 09/10/16 14:13 4 MLS/MIN Levalbuterol (Xopenex 1.25MG/ 0.5ML Neb) 1.25 mg Q6R INH 09/10/16 15:00 10/10/16 14:59 09/11/16 07:27 1.25 MG Procedure Medications Ordered: 1213: Ordered Solu-Medrol IV 125 mg IV. 1215: Ordered Duoneb 12 ml INH. 1401: Ordered Furosemide 80 mg/Syringe 8 ml @ 4 mls/min IV. ECG Indication: SOB/dyspnea Rate (beats per minute): 108 Rhythm: sinus tachycardia Findings: no acute ischemic change, no ectopy Comparison ECG Date: 07/22/16 Change: no significant change ED Course 1200: Past medical records reviewed. The patient was evaluated in room B12B. A complete history and physical exam was performed. An IV lock was initiated and labs were drawn as above. A twelve-lead EKG was obtained as described above. She was initially on a nonrebreather mask at 15 L of O2. She had a portable chest x-ray as described above. 1213: Ordered Solu-Medrol IV 125 mg IV. 1215: Ordered Duoneb 12 ml INH. 1302: I reassessed the patient and she notes very little improvement. She was then placed on BiPAP. 1401: Ordered Furosemide 80 mg/Syringe 8 ml @ 4 mls/min IV. 1405: Discussed the patient's case with Dr. Trimble. The patient will be evaluated for further management. Medical Decision The patient is a 76 year old female who presents to the Emergency Room with complaints of worsening shortness of breath beginning yesterday. Differentials Diagnoses: COPD exacerbation, CHF, pneumonia, bronchitis, and acute coronary syndrome. Laboratory Interpretations: No leukocytosis; hemoglobin of about 9 which is baseline for the patient; normal renal function; glucose of 193; LTFs are normal ; cardiac enzymes are negative; BNP is 277; coags are normal. This is a 76-year-old female patient describes significant worsening shortness of breath since last evening. She does have a history of COPD and has been using her inhalers. Chest x-ray showed no significant evidence of pulmonary edema however, on physical exam, she had significant rales on physical exam and there were audible wheezes and rales. The patient had received a 1 hour DuoNeb treatment without significant improvement in her symptoms. I did talk to her about her CODE STATUS and she requested that she be fully resuscitated. I discussed the case with the hospitalist and they will evaluate for further care Consults Time Called: 1350 Consulting Physician: Dr. Trimble, [facility] [place] Returned Call: [phone] Discussed the patient's case with Dr. Trimble. The patient will be evaluated for further management. Impression Primary Impression: Respiratory failure Additional Impression: COPD exacerbation Scribe Attestation The scribe's documentation has been prepared under my direction and personally reviewed by me in its entirety. I confirm that the note above accurately reflects all work, treatment, procedures, and medical decision making performed by me. Departure Information Dispostion Being Evaluated By Hospitalist Referrals Ray Pereira III, CRNP (PCP) Patient Instructions My [facility] Problem Qualifiers
[2016-09-10] MEDS ORDERED: ALBUT/IPRATROP 3MG/0.5MG NEB 3 ML VIAL INH ONE (12:15)
[2016-09-10 12:16] LABS: BASO % 0.3 %; BASO ABS # 0.02 K/uL (0-0.2); COMPLETE YES; HEMATOCRIT 30.3 % (37-47); IG% 0.1 %; LYMPH ABS # 0.53 K/uL (1.2-3.4); MEAN CELL VOLUME 98.7 fL (80-100); MEAN CORPUSCULAR HEMOGLOBIN 29.3 pg (25-34); MEAN CORPUSCULAR HGB CONC 29.7 g/dl (32-36); MONO % 5.9 %; NEUT % 86.7 %; PLATELET COUNT 231 K/uL (130-400); RED BLOOD COUNT 3.07 M/uL (4.2-5.4)
--- NOTE | 2016-09-10 12:17 | DIAGNOSTIC IMAGING REPORT ---
CHEST ONE VIEW PORTABLE HISTORY: Short of breath. COMPARISON: Chest 07/22/2016. FINDINGS: The heart is normal in size. Bilateral hilar prominence, unchanged. No pleural effusions. No pneumothorax. Hazy appearance the left lung base remains unchanged and may represent prominent mediastinal fat. No new focal lung consolidations. IMPRESSION: No significant change compared to the prior study. No acute process. No evidence for pulmonary edema. Electronically signed by: Jason Bosch M.D. 09/10/2016 12:16 PM Dictated Date/Time: 09/10/2016 12:15 PM
[2016-09-10 12:32] LABS: INR 0.9 (0.9-1.1); PARTIAL THROMBOPLASTIN RATIO 0.9
[2016-09-10 12:33] LABS: ALT/SGPT 19 U/L (12-78); AST/SGOT 22 U/L (15-37); BLOOD UREA NITROGEN 17 mg/dl (7-18); BUN/CREATININE RATIO 21.6 (10-20); CALCIUM 8.4 mg/dl (8.5-10.1); CARBON DIOXIDE 34 mmol/L (21-32); CHLORIDE 99 mmol/L (98-107); GLUCOSE 193 mg/dl (70-99); POTASSIUM 3.8 mmol/L (3.5-5.1); SODIUM 141 mmol/L (136-145)
[2016-09-10 12:38] LABS: ALB/GLOB RATIO 0.8 (0.9-2); ALKALINE PHOSPHATASE 93 U/L (45-117); CKMB/CK RATIO 4.8 (0-3.0)
[2016-09-10] MEDS ORDERED: FUROSEMIDE INJ 80 MG in SYRINGE 0 ML IV STA (14:01)
[2016-09-10] MEDS ORDERED: ONDANSETRON INJ 2 MG/ML 2 ML VIAL IV PRN (15:00)
[2016-09-10] MEDS ORDERED: MAGNESIUM HYDROXIDE SUSP 30 ML UDC PO PRN (15:00)
[2016-09-10] MEDS ORDERED: ALUMINUM/MAGNESIUM/SIMETH (MAALOX MAX) 30 ML UDC PO PRN (15:00)
[2016-09-10] MEDS: LEVALBUTEROL 1.25MG/0.5ML NEB INH SCH ×2 (15:00→19:00)
[2016-09-10] MEDS ORDERED: ACETAMINOPHEN 325 MG TAB PO PRN (15:00)
[2016-09-10] MEDS ORDERED: POLYETHYLENE (MIRALAX) 17 GM PACK PO PRN (15:00)
[2016-09-10] MEDS ORDERED: GLUCOSE 40% GEL 15 GM TUBE PO PRN (15:30)
[2016-09-10] MEDS ORDERED: GLUCOSE 10 TABS/TUBE PO PRN (15:30)
[2016-09-10] MEDS ORDERED: DEXTROSE 50% 50 ML SYR IV PRN (15:30)
[2016-09-10] MEDS ORDERED: GLUCAGON FOR INJ 1 MG VIAL SQ PRN (15:30)
[2016-09-10 15:35] LABS: ARTERIAL BLD GAS O2 SATURATION 97.6 % (90-95); ARTERIAL BLOOD GAS BASE EXCESS 6.7 mEq/L (-9-1.8); ARTERIAL BLOOD GAS HCO3 34 mmol/L (19-24); ARTERIAL BLOOD GAS PO2 144 mm/Hg (80-95); ARTERIAL BLOOD GAS pH 7.33 (7.35-7.45)
--- NOTE | 2016-09-10 15:41 | History and Physical ---
History & Physical Date & Time of Service: Sep 10, 2016 at 15:26 Chief Complaint: Can't Breathe Primary Care Physician: Ray Pereira III, CRNP History of Present Illness Source: patient, family Ms. 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 Prior to yesterday, patient reports feeling largely at her baseline however did feel slightly "sluggish". She reports a sudden onset of URI symptoms including a productive cough of thick yellow sputum and progressive shortness of breath. Shortness of breath seemed to worsen overnight and upon awakening this morning. She has advanced COPD and utilizes continuous O2 at 4 L and average saturations are in the low 90s per records reviewed. Patient denies a chronic cough associated with her COPD. Daughters at bedside report some mild drowsiness and altered mental status this AM. Altered mentation symptoms have all resolved and patient is currently alert and oriented 3. She has a history of paroxysmal atrial fibrillation currently on Xarelto. She reports compliance with this medication and denies missed dosing. She denies history of DVT or PE. Does report bilateral lower extremity edema that waxes and wanes but she states this is baseline at this time. Upon arrival to the ED , patient's saturations were 65% on 4 L NC. She denies fever/chills, chest pain , nausea/vomiting, abdominal pain, dysuria, constipation/diarrhea, melena/ hematochezia. She denies sick contacts. In the ED, she is tachypneic and was placed on BiPAP. She received a DuoNeb treatment, Solu-Medrol 125 mg IV, and Lasix 80 mg IV. She is reporting some improvement and is able to talk in short sentences without increased dyspnea. Hemoglobin at 9 which is at baseline. Troponin negative with CK-MB of 4.7. BNP 277. CXR with bilateral hilar prominence and hazy left lower lobe which is unchanged from CXR in July 2016. ABG revealing a mild respiratory acidosis with compensation. Suspect CO2 retention leading to acute on chronic respiratory failure secondary to COPD. Past Medical/Surgical History Medical Problems: (1) Diab Zoey Wo Compl, Type Ii Or Unspec Type, Not Uncntrld Status: Chronic (2) Diverticulosis Colon (W/O Ment Of Hemorrhage) Status: Chronic (3) Hyperlipidemia Nec/Nos Status: Chronic (4) Hypertension Nos Status: Chronic (5) Obstr Chronic Bronchitis, W (Acute) Exacerbation Status: Chronic (6) Pneumonia, Organism Nos Status: Resolved (7) Pure Hypercholesterolem Status: Chronic (8) Tubal Ligation Status Status: Resolved Family History Diabetes mellitus FH: cancer Hypertension Social History Smoking Status: Former Smoker Smokeless Tobacco Use: No Drug Use: none Housing status: lives with family Occupational Status: retired Immunizations History of Influenza Vaccine: Yes Influenza Vaccine Date: Apr 12, 2013 History of Tetanus Vaccine?: Unknown Tetanus Immunization Date: Nov 09, 2007 History of Pneumococcal: Yes Pneumococcal Date: Mar 10, 2011 History of Hepatitis B Vaccine: No Multi-Drug Resistant Organisms History of MDRO: No Allergies Coded Allergies: Morphine (Verified Allergy, Mild, Causes Afib, 07/22/16) Mushroom (Verified Allergy, Unknown, 07/22/16) Theophyllines (Verified Allergy, Unknown, Unknown, 07/22/16) Reported by daughter and [facility]. Codeine (Verified Adverse Reaction, Unknown, HYPERVENTILATES, 07/22/16) Home Medications Scheduled Amiodarone HCl (Amiodarone HCl), 100 MG PO DAILY Atorvastatin (Lipitor), 80 MG PO DAILY Budesonide/Formoterol Fumarate (Symbicort 160-4.5 Mcg/Act), 2 PUFFS INH BID Buspirone HCl (Buspirone HCl), 15 MG PO TID Cholecalciferol (Vitamin D), 2,000 INTER.UNIT PO DAILY Ferrous Sulfate (Kp Ferrous Sulfate), 1 TAB PO BID Folic Acid (Folvite), 1 MG PO DAILY Guaifenesin Ext Rel (Mucinex Ext Rel), 600 MG PO Q12 Ipratropium-Albuterol (Combivent Respimat), 1 PUFFS INH QID Lactobacillus Acidophilus (Floranex), 1 TAB PO TIDM Oxygen (Oxygen), 2 LITERS NA UD Pantoprazole (Pantoprazole Sodium), 40 MG PO DAILY Prednisone (Prednisone), 40 MG PO BIDM Rivaroxaban (Xarelto), 20 MG PO DAILY Trazodone HCl (Trazodone HCl), 200 MG PO HS Venlafaxine Hcl (Effexor Extended Rel), 150 MG PO DAILY Venlafaxine Hcl (Effexor Extended Rel), 75 MG PO DAILY Review of Systems REVIEW OF SYSTEMS: General/Constitutional: +"sluggish"; Denies fever/chills, weight gain/loss ENT: Denies visual changes, nasal drainage, hearing loss, sore throat, trouble swallowing Cardiovascular: Denies chest pain, palpitations Respiratory: +cough, +thick yellow sputum, +SOB; Denies orthopnea GI: Denies nausea, vomiting, abdominal pain, constipation, diarrhea, melena/ hematochezia : Denies dysuria, frequency, hematuria Musculoskeletal: +bilateral lower extremity edema R>L (chronic and wax and wanes ); Denies joint/muscle aches, weakness Neurologic: Denies dizziness/lightheadedness, numbness/tingling, weakness Psychiatric: Deferred Endocrine: Deferred Hematologic/Lymphatic: Denies bleeding/clotting abnormalities Skin: Denies rash, itch, new skin changes, easy bruising Allergy/Immunologic: Deferred Physical Exam Vital Signs Date Time Temp Pulse Resp B/P Pulse Ox O2 Delivery O2 Flow Rate FiO2 09/10/16 15:01 108 22 158/70 100 BiPAP 5.0 45 09/10/16 14:00 166/49 09/10/16 13:49 114 31 99 09/10/16 13:30 180/62 09/10/16 13:19 122 30 99 09/10/16 13:19 124 95 45 09/10/16 13:14 104 09/10/16 13:09 BiPAP 09/10/16 13:01 156/109 09/10/16 12:49 129 29 100 09/10/16 12:30 152/98 09/10/16 12:24 106 24 178/72 99 Nebulizer 09/10/16 12:23 178/72 09/10/16 12:23 100 20 94 Nasal Cannula 4.0 09/10/16 12:19 107 25 97 09/10/16 12:08 94 Nasal Cannula 4.0 09/10/16 12:08 94 Nasal Cannula 4.0 09/10/16 12:07 96 Nasal Cannula 4.0 09/10/16 12:06 157/98 09/10/16 11:53 36.4 106 26 147/74 65 Nasal Cannula PHYSICAL EXAM:: General Appearance: WDWN/Obese in mild respiratory distress who is A&O x 3 HEENT: Head is normocephalic/atraumatic; EOMI; PERRLA; Hearing grossly intact; Mucous membranes and Pharynx not assessed due to BiPaP Neck: Supple; Trachea midline; JVD unlikely however labored breathing - difficult to properly assess; Neg lymphadenopathy Heart: Regular rhythm with mild tachycardia with no M/G/R; heart sounds distant Lungs: Course breath sounds with BiPaP placed with intermittent expiratory wheezing and general poor airflow quality; Respirations mildly labored; mildly forceful breaths; able to talk with simple phrases without worsening of SOB Abdomen: Soft, non-tender, non-distended; Positive BS x 4 quadrants; Neg organomegaly Extremities: Capillary refill < 2 seconds; Bilat posterior tibialis pulses +2, bilateral non-pitting edema; Neg cyanosis Neurological: Speech clear; Gross motor/sensory function intact; Neg focal neurologic deficits Psychiatric: Appropriate mood/affect Skin: Normal Color; Warm/Dry; Neg rashes, ecchymosis, lacerations/ulcerations Diagnostics Laboratory Results Results Past 24 Hours Test 09/10/16 12:00 09/10/16 14:04 Range/Units White Blood Count 7.60 4.8-10.8 K/uL Red Blood Count 3.07 4.2-5.4 M/uL Hemoglobin 9.0 12.0-16.0 g/dL Hematocrit 30.3 37-47 % Mean Corpuscular Volume 98.7 80-100 fL Mean Corpuscular Hemoglobin 29.3 25-34 pg Mean Corpuscular Hemoglobin Concent 29.7 32-36 g/dl Platelet Count 231 130-400 K/uL Mean Platelet Volume 10.0 7.4-10.4 fL Neutrophils (%) (Auto) 86.7 % Lymphocytes (%) (Auto) 7.0 % Monocytes (%) (Auto) 5.9 % Eosinophils (%) (Auto) 0.0 % Basophils (%) (Auto) 0.3 % Neutrophils # (Auto) 6.59 1.4-6.5 K/uL Lymphocytes # (Auto) 0.53 1.2-3.4 K/uL Monocytes # (Auto) 0.45 0.11-0.59 K/uL Eosinophils # (Auto) 0.00 0-0.5 K/uL Basophils # (Auto) 0.02 0-0.2 K/uL RDW Standard Deviation 54.1 36.4-46.3 fL RDW Coefficient of Variation 15.2 11.5-14.5 % Immature Granulocyte % (Auto) 0.1 % Immature Granulocyte # (Auto) 0.01 0.00-0.02 K/uL Nucleated RBC Absolute Count (auto) 0.02 0-0 K/uL Nucleated Red Blood Cells % 0.2 % Prothrombin Time 10.0 9.0-12.0 SECONDS Prothromb Time International Ratio 0.9 0.9-1.1 Activated Partial Thromboplast Time 24.5 21.0-31.0 SECONDS Partial Thromboplastin Ratio 0.9 Sodium Level 141 136-145 mmol/L Potassium Level 3.8 3.5-5.1 mmol/L Chloride Level 99 98-107 mmol/L Carbon Dioxide Level 34 21-32 mmol/L Anion Gap 8.0 3-11 mmol/L Blood Urea Nitrogen 17 7-18 mg/dl Creatinine 0.80 0.60-1.20 mg/dl Estimated GFR () 84.2 Estimated GFR (Non- 72.6 BUN/Creatinine Ratio 21.6 10-20 Random Glucose 193 70-99 mg/dl Calcium Level 8.4 8.5-10.1 mg/dl Magnesium Level 2.3 1.8-2.4 mg/dl Total Bilirubin 0.3 0.2-1 mg/dl Aspartate Amino Transf (AST/SGOT) 22 15-37 U/L Alanine Aminotransferase (ALT/SGPT) 19 12-78 U/L Alkaline Phosphatase 93 45-117 U/L Total Creatine Kinase 97 26-192 U/L Creatine Kinase MB 4.7 0.5-3.6 ng/ml Creatine Kinase MB Ratio 4.8 0-3.0 Troponin I < 0.015 0-0.045 ng/ml Pro-B-Type Natriuretic Peptide 277 0-900 pg/ml Total Protein 7.0 6.4-8.2 gm/dl Albumin 3.2 3.4-5.0 gm/dl Globulin 3.8 2.5-4.0 gm/dl Albumin/Globulin Ratio 0.8 0.9-2 Diagnostic Radiology CHEST ONE VIEW PORTABLE HISTORY: Short of breath. COMPARISON: Chest 07/22/2016. FINDINGS: The heart is normal in size. Bilateral hilar prominence, unchanged. No pleural effusions. No pneumothorax. Hazy appearance the left lung base remains unchanged and may represent prominent mediastinal fat. No new focal lung consolidations. IMPRESSION: No significant change compared to the prior study. No acute process. No evidence for pulmonary edema. EKG Poor data quality, interpretation may be adversely affected Sinus tachycardia with Premature supraventricular complexes Possible Inferior infarct (cited on or before 05-SEP-2014) Abnormal ECG When compared with ECG of 22-JUL-2016 21:10, Premature supraventricular complexes are now Present Confirmed by RONAK ROA ([id number]) on 09/10/2016 2:06:51 PM Impression Assessment and Plan Ms. 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 Sats of 65% on baseline 4 L NC upon ED arrival with mild mental status change (per family). Improving with BiPAP, Lasix, Duoneb, and Steroids Acute on Chronic Respiratory Failure with Hypoxia and Hypercapnia 2/2 COPD: Baseline 4 L NC - ABG: pH 7.33, pCO2 66, HCO3 34 - appears to be a mild respiratory acidosis with compensation - likely has been retaining CO2 with acute exacerbation yesterday - Received Lasix 80 mg IV x 1 dose and Solu-Medrol 125 mg IV x 1 dose - Continue BiPAP throughout the night and wean to O2 NC tomorrow as tolerated - records reviewed showing baseline saturations in low 90s with 4 L - Hold Symbicort and Combivent during acute exacerbation - Levofloxacin 750 mg IV daily - Methylprednisolone 60 mg IV Q8H - Xopenex and Atrovent GREGORIO and PRN Possible Acute Congestive Heart Failure: Unlikely - Echo (2013) - EF 60-65% but no evidence of diastolic dysfunction mentioned - BNP 277 - given patient's size and comorbidities, BNP may be misleading - Assess output from Lasix dosing from ED - if minimal will likely hold off on further diuresis - lower extremity edema baseline (wax and wanes per patient) - Monitor I&Os and Daily Weights - outpatient weight reviewed of 204 lbs (Jul 2016) - Serial cardiac enzymes - R/O ACS - she is CP free - Repeat echo Anemia: Baseline - 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 - continue to monitor CBC - Folic Acid 1 mg daily and ferrous sulfate - Protonix 40 mg daily Paroxysmal Atrial Fibrillation: Currently Sinus Tach: - Amiodarone 100 mg daily and Xarelto 20 mg daily Metabolic Syndrome: Check A1c - Records reviewed - previously on ASA and Plavix given CAD/CVA risk but D/C'd after GI bleed - BSG 193 upon arrival - given need for steroids will do BSG before meals and at bedtime - SSI - goal range 140-180 with correction factor 35 - may need adjusting for tighter control HTN: Consistently Elevated - Started on Amlodipine 5 mg daily - last admission and states she has been taking it HLD: - Atorvastatin 80 mg daily Anxiety/Depression/Insomnia: - BuSpar 15 mg TID, Effexor 225 mg daily, and trazodone 200 mg daily Code Status: FULL RESUSCITATION DVT Prophylaxis: Xarelto Disposition: Lives with daughter with other daughters within short distance; ambulates without assistive devices - PT/OT evaluations Level of Care Telemetry Resuscitation Status FULL RESUSCITATION VTE Prophylaxis VTE Risk Assessment Done? Y/N: Yes Risk Level: Moderate Given or contraindicated: Other Anticoagulation (Xarelto) Note Total Time: Critical Care > 74 minutes Attending Admission Note & Attestation: Pt seen/examined, chart reviewed, care plan d/w RAHEL López. I agree w/ the goyal components of her admission documentation. 76yo female with chronic respiratory failure on 4 L NC O2 at home - 2nd to severe COPD - who presented with acute on chronic resp failure today. During my assessment she was tachypneic, using accessory muscles, and having retractions. BIPAP was applied by the ER attending prior to my arrival. Family report she had been worsening over 1-2 days. They also mentioned she was becoming more lethargic/tired. After BIPAP, duoneb, steroids, and lasix she reported some mild improvement while in the ER. PMH, PSH, allergies, meds, sochx, famhx, ros - reviewed vitals - tachy, tachypneic, BP elevated, afebrile gen - respiratory distress (increased wob with tachypnea, accessory muscles, etc ); obese; despite such can answer questions neck - difficult to tell if JVD present due to BIPAP straps and distress heart - tachy, s1, s2 lungs - poor air movement, distress as noted above, extensive wheezing, some rhonchi, crackles bases abd - obese, soft, no liver palpated ext - 1-2+ edema b/l labs - WBC nl but left shift on diff Cr nl HCO3 34 pH 7.33, pCO2 66 EKG - sinus tach, no a. fib, no ST changes CXR - no infiltrates/edema A/P: acute/chronic hypoxic/hypercarbic resp failure - COPD +/- acute CHF. COPD with severe exacerbation. metabolic encephalopathy - likely 2nd to hypercarbia - already improved. chronic anemia. obesity. PAF on chronic amiodarone. agree with IV steroids, antibiotics, ongoing BIPAP. add lantus and novolog for glycemic coverage as I expect FSBS's to be high w/ steroids. telemetry status. NPO until off BIPAP. no further lasix for now; follow UOP/response to the lasix given in ER. Unclear how much, if any, acute/chronic diastolic CHF is playing a role. Hunter Trimble MD
[2016-09-10 15:42] LABS: ALLEN TEST POS (POS); O2 ADMINISTRATION 45%
[2016-09-10] MEDS: IPRATROPIUM BROMIDE NEB SOLN 0.02% 2.5 ML VIAL INH SCH (16:00)
[2016-09-10] MEDS ORDERED: ALBUT/IPRATROP 3MG/0.5MG NEB 3 ML VIAL INH STA (18:39)
[2016-09-10] MEDS: LEVOFLOXACIN / D5W 750 MG in PREMIXED IN D5W 150 ML IV SCH (19:19)
[2016-09-10] MEDS: FERROUS SULFATE 325 MG TAB PO SCH (19:55)
[2016-09-10] MEDS: LACTOBACILLUS ACIDOPHILUS (FLORANEX) TAB PO SCH (19:55)
[2016-09-10] MEDS: METHYLPREDNISOLONE IV 60 MG in SYRINGE 0 ML IV SCH (20:11)
[2016-09-10] MEDS: INSULIN ASPART 100 UNITS/ML 3 ML PEN SC SCH (21:28)
[2016-09-10] MEDS: BusPIRone 15 MG TAB PO SCH (21:29)
[2016-09-10] MEDS: GUAIFENESIN 600 MG TABCR PO SCH (21:29)
[2016-09-10] MEDS: TRAZODONE HCL 100 MG TAB PO SCH (21:29)
--- NOTE | 2016-09-10 22:18 | Critical Care Consultation ---
Critical Care Consultation Date of Consultation: Sep 10, 2016. Attending Physician: Hunter Trimble MD Reason for Consultation: Increased dyspnea History of Present Illness Lucie Church is a 76-year-old female with an extensive past medical history of diabetes type 2, depression/anxiety, COPD, GERD, hyperlipidemia, chronic respiratory failure on 2Ls. Lucie presented to the emergency department today complaining of worsening shortness of breath that had started the day before that was accompanied by cold symptoms and a productive cough with yellow sputum. Over the evening she was awakened from her sleep with shortness of breath. In the emergency department on 4 L her saturations were found to be 58% . Patient is chronically on Xarelto for her paroxysmal atrial fibrillation and she denies any previous history of DVT or PE. She does note some minor swelling in her lower extremities and states that her right is normally worse than her left. She was originally admitted to telemetry status. She was admitted on 4 L nasal cannula and found to be anxious and was immediately placed on BiPAP 14/7 40%. She received hour-long nebulizer and due to concern for her respiratory status she was transferred to the ICU where she is still on BiPAP. Patient denies fever or chills, chest pain/pressure, awareness of tachyarrhythmias. She does state that she is not currently short of breath while on the BiPAP mask. She denies upset stomach, nausea, vomiting, diarrhea. She denies numbness or tingling. Past Medical/Surgical History Medical Problems: (1) Acute on chronic respiratory failure (2) Diab Zoey Wo Compl, Type Ii Or Unspec Type, Not Uncntrld (3) Diverticulosis Colon (W/O Ment Of Hemorrhage) (4) Hyperlipidemia Nec/Nos (5) Hypertension Nos (6) Obstr Chronic Bronchitis, W (Acute) Exacerbation (7) Pneumonia, Organism Nos (8) Pure Hypercholesterolem (9) Tubal Ligation Status Family History Diabetes mellitus FH: cancer Hypertension Social History Smoking Status: Former Smoker Smokeless Tobacco Use: No Drug Use: none Housing Status: lives with family Occupation Status: retired Allergies Coded Allergies: Mushroom (Verified Allergy, Unknown, 07/22/16) Theophyllines (Verified Allergy, Unknown, Unknown, 07/22/16) Reported by daughter and listed in [facility] record. Morphine (Verified Adverse Reaction, Mild, Causes Afib, 09/14/16) Codeine (Verified Adverse Reaction, Unknown, HYPERVENTILATES, 07/22/16) Home Medications Scheduled Amiodarone HCl (Amiodarone HCl), 100 MG PO DAILY Atorvastatin (Lipitor), 80 MG PO DAILY Budesonide/Formoterol Fumarate (Symbicort 160-4.5 Mcg/Act), 2 PUFFS INH BID Buspirone HCl (Buspirone HCl), 15 MG PO TID Cholecalciferol (Vitamin D), 2,000 INTER.UNIT PO DAILY Ferrous Sulfate (Kp Ferrous Sulfate), 1 TAB PO BID Folic Acid (Folvite), 1 MG PO DAILY Guaifenesin Ext Rel (Mucinex Ext Rel), 600 MG PO Q12 Ipratropium-Albuterol (Combivent Respimat), 1 PUFFS INH QID Lactobacillus Acidophilus (Floranex), 1 TAB PO TIDM Oxygen (Oxygen), 2 LITERS NA UD Pantoprazole (Pantoprazole Sodium), 40 MG PO DAILY Prednisone (Prednisone), 40 MG PO BIDM Rivaroxaban (Xarelto), 20 MG PO DAILY Trazodone HCl (Trazodone HCl), 200 MG PO HS Venlafaxine Hcl (Effexor Extended Rel), 150 MG PO DAILY Venlafaxine Hcl (Effexor Extended Rel), 75 MG PO DAILY Current Inpatient Medications Current Inpatient Medications Medications (Trade) Dose Ordered Sig/Buddy Route Start Time Stop Time Status Last Admin Dose Admin Acetaminophen (Tylenol Tab) 650 mg Q4H PRN PO 09/10/16 15:00 10/10/16 14:59 Al Hydrox/Mg Hydrox/Simethicone (Maalox Max Susp) 15 ml Q4H PRN PO 09/10/16 15:00 10/10/16 14:59 Magnesium Hydroxide (Milk Of Magnesia Susp) 30 ml Q12H PRN PO 09/10/16 15:00 10/10/16 14:59 Ondansetron HCl (Zofran Inj) 4 mg Q6H PRN IV 09/10/16 15:00 10/10/16 14:59 Polyethylene (Miralax Powder Packet) 17 gm DAILY PRN PO 09/10/16 15:00 10/10/16 14:59 Ipratropium [place] (Atrovent 0.02% 0.5MG/2.5ML Neb) 0.5 mg Q8R INH 09/10/16 16:00 10/10/16 15:59 Levalbuterol (Xopenex 1.25MG/ 0.5ML Neb) 1.25 mg Q6R INH 09/10/16 15:00 10/10/16 14:59 Amiodarone HCl (Cordarone Tab) 100 mg DAILY PO 09/11/16 09:00 10/11/16 08:59 Atorvastatin Calcium (Lipitor Tab) 80 mg DAILY PO 09/11/16 09:00 10/11/16 08:59 Buspirone HCl (BusPAR TAB) 15 mg TID PO 09/10/16 21:00 10/10/16 20:59 09/10/16 21:29 15 MG Folic Acid (Folvite Tab) 1 mg DAILY PO 09/11/16 09:00 10/11/16 08:59 Guaifenesin (Mucinex Contr Rel Tab) 600 mg Q12 PO 09/10/16 21:00 10/10/16 20:59 09/10/16 21:29 600 MG Lactobacillus Acidophilus (Floranex Tab) 1 tab TIDM PO 09/10/16 18:00 10/10/16 17:59 Pantoprazole Sodium (Protonix Tab) 40 mg DAILY PO 09/11/16 09:00 10/11/16 08:59 Rivaroxaban (Xarelto Tab) 20 mg QDD PO 09/11/16 16:30 10/11/16 16:44 Trazodone HCl (Desyrel Tab) 200 mg HS PO 09/10/16 21:00 10/10/16 20:59 09/10/16 21:29 200 MG Venlafaxine HCl (effeXOR EXTENDED REL CAP) 75 mg DAILY PO 09/11/16 09:00 10/11/16 08:59 Venlafaxine HCl (effeXOR EXTENDED REL CAP) 150 mg DAILY PO 09/11/16 09:00 10/11/16 08:59 Cholecalciferol (Vitamin D Tab) 2,000 inter.unit DAILY PO 09/11/16 09:00 10/11/16 08:59 Ferrous Sulfate 325 mg 325 mg BIDM PO 09/10/16 18:00 5/29/17 17:59 Levofloxacin 750 mg/Prmx 150 ml @ 100 mls/hr Q24H IV 09/10/16 18:00 09/17/16 17:59 09/10/16 19:19 100 MLS/HR Methylprednisolone Sodium Succinate/ Syringe (Solu-Medrol IV/ Syringe) 0.96 ml @ 1.5 mls/min Q8H IV 09/10/16 20:00 10/10/16 19:59 09/10/16 20:11 1.5 MLS/MIN Levalbuterol (Xopenex 1.25MG/ 0.5ML Neb) 1.25 mg Q2H PRN INH 09/10/16 15:30 10/10/16 15:29 Ipratropium [place] (Atrovent 0.02% 0.5MG/2.5ML Neb) 0.5 mg Q2H PRN INH 09/10/16 15:30 10/10/16 15:29 Insulin Aspart (novoLOG ASPART) SLIDING SCALE If C... ACHS SC 09/10/16 21:00 10/10/16 20:59 09/10/16 21:28 2 UNITS Glucose (Glucose 40% Gel) 15-30 GRAMS 15 GRAMS... UD PRN PO 09/10/16 15:30 10/10/16 15:29 Glucose (Glucose Chew Tab) 4-8 Tablets 4 Tabl... UD PRN PO 09/10/16 15:30 10/10/16 15:29 Dextrose (Dextrose 50% 50ML Syringe) 25-50ML OF 50% DW IV FOR... UD PRN IV 09/10/16 15:30 10/10/16 15:29 Glucagon (Glucagon Inj) 1 mg UD PRN SQ 09/10/16 15:30 10/10/16 15:29 Amlodipine Besylate (Norvasc Tab) 5 mg QAM PO 09/11/16 09:00 10/11/16 08:59 Review of Systems 12 systems reviewed and negative other than previously mentioned in the HPI. Physical Exam Date Time Temp Pulse Resp B/P Pulse Ox O2 Delivery O2 Flow Rate FiO2 09/10/16 21:01 36.4 105 28 95 09/10/16 21:00 105 100 40 09/10/16 20:00 98 BiPAP 40 09/10/16 19:39 112 100 40 09/10/16 19:28 115 28 156/69 99 BiPAP 09/10/16 18:38 115 28 95 BiPAP/CPAP 40 09/10/16 18:16 111 95 40 09/10/16 17:49 110 24 160/85 97 09/10/16 16:00 107 22 155/76 94 BiPAP 35 09/10/16 15:05 100 BiPAP 5.0 45 09/10/16 15:01 108 22 158/70 100 BiPAP 5.0 45 09/10/16 14:00 166/49 09/10/16 13:49 114 31 99 09/10/16 13:30 180/62 09/10/16 13:19 122 30 99 09/10/16 13:19 124 95 45 09/10/16 13:14 104 09/10/16 13:09 BiPAP 09/10/16 13:01 156/109 09/10/16 12:49 129 29 100 09/10/16 12:30 152/98 09/10/16 12:24 106 24 178/72 99 Nebulizer 09/10/16 12:23 178/72 09/10/16 12:23 100 20 94 Nasal Cannula 4.0 09/10/16 12:19 107 25 97 09/10/16 12:08 94 Nasal Cannula 4.0 09/10/16 12:08 94 Nasal Cannula 4.0 09/10/16 12:07 96 Nasal Cannula 4.0 09/10/16 12:06 157/98 09/10/16 11:53 36.4 106 26 147/74 65 Nasal Cannula Vital Signs - as noted Laboratory Data - as noted Physical Exam: General - NAD, BiPAP mask in place Eyes - PERRL, EOMI No icterus, gaze conjugate ENT - Mucosa moist, no lesions or candidiasis Neck - Supple, trachea midline, no masses or lymphadenopathy, no JVD or bruits Lungs - No paradoxical chest wall movement, diminished sounds to auscultation bilaterally, no wheezes, rales, or rhonchi Heart -sinus tachycardia, No murmur, rubs, clicks, or gallops appreciated Abdomen - BS present, no bruits noted, tympanic to percussion, soft, nontender, nondistended, no organomegaly Extremities -trace edema, pedal pulses intact Neuro - A&OX4 Strength extremities equal and appropriate bilaterally Reflexes: Bicep, brachioradialis, patellar, and plantar normal and equal CN:PERRL, EOMI, no facial asymmetry, uvula/tongue midline Laboratory Results Last 24 Hours Test 09/10/16 12:00 09/10/16 15:22 09/10/16 18:14 09/10/16 18:24 White Blood Count 7.60 K/uL Red Blood Count 3.07 M/uL Hemoglobin 9.0 g/dL Hematocrit 30.3 % Mean Corpuscular Volume 98.7 fL Mean Corpuscular Hemoglobin 29.3 pg Mean Corpuscular Hemoglobin Concent 29.7 g/dl Platelet Count 231 K/uL Mean Platelet Volume 10.0 fL Neutrophils (%) (Auto) 86.7 % Lymphocytes (%) (Auto) 7.0 % Monocytes (%) (Auto) 5.9 % Eosinophils (%) (Auto) 0.0 % Basophils (%) (Auto) 0.3 % Neutrophils # (Auto) 6.59 K/uL Lymphocytes # (Auto) 0.53 K/uL Monocytes # (Auto) 0.45 K/uL Eosinophils # (Auto) 0.00 K/uL Basophils # (Auto) 0.02 K/uL RDW Standard Deviation 54.1 fL RDW Coefficient of Variation 15.2 % Immature Granulocyte % (Auto) 0.1 % Immature Granulocyte # (Auto) 0.01 K/uL Nucleated RBC Absolute Count (auto) 0.02 K/uL Nucleated Red Blood Cells % 0.2 % Prothrombin Time 10.0 SECONDS Prothromb Time International Ratio 0.9 Activated Partial Thromboplast Time 24.5 SECONDS Partial Thromboplastin Ratio 0.9 Sodium Level 141 mmol/L Potassium Level 3.8 mmol/L Chloride Level 99 mmol/L Carbon Dioxide Level 34 mmol/L Anion Gap 8.0 mmol/L Blood Urea Nitrogen 17 mg/dl Creatinine 0.80 mg/dl Estimated GFR () 84.2 Estimated GFR (Non- 72.6 BUN/Creatinine Ratio 21.6 Random Glucose 193 mg/dl Calcium Level 8.4 mg/dl Magnesium Level 2.3 mg/dl Total Bilirubin 0.3 mg/dl Aspartate Amino Transf (AST/SGOT) 22 U/L Alanine Aminotransferase (ALT/SGPT) 19 U/L Alkaline Phosphatase 93 U/L Total Creatine Kinase 97 U/L 109 U/L Creatine Kinase MB 4.7 ng/ml 4.4 ng/ml Creatine Kinase MB Ratio 4.8 4.0 Troponin I < 0.015 ng/ml < 0.015 ng/ml Pro-B-Type Natriuretic Peptide 277 pg/ml Total Protein 7.0 gm/dl Albumin 3.2 gm/dl Globulin 3.8 gm/dl Albumin/Globulin Ratio 0.8 Arterial Blood pH 7.33 Arterial Blood Partial Pressure CO2 66 mmHg Arterial Blood Partial Pressure O2 144 mm/Hg Arterial Blood HCO3 34 mmol/L Arterial Blood Oxygen Saturation 97.6 % Arterial Blood Base Excess 6.7 mEq/L Arterial Blood Gas Delivery 45% Red Test POS Bedside Glucose 212 mg/dl Test 09/10/16 20:33 09/10/16 21:17 Bedside Glucose 246 mg/dl 245 mg/dl Diagnostic Results CHEST ONE VIEW PORTABLE HISTORY: Short of breath. COMPARISON: Chest 07/22/2016. FINDINGS: The heart is normal in size. Bilateral hilar prominence, unchanged. No pleural effusions. No pneumothorax. Hazy appearance the left lung base remains unchanged and may represent prominent mediastinal fat. No new focal lung consolidations. IMPRESSION: No significant change compared to the prior study. No acute process. No evidence for pulmonary edema. Electronically signed by: Jason Bosch M.D. 09/10/2016 12:16 PM Dictated Date/Time: 09/10/2016 12:15 PM Assessment & Plan (1) Paroxysmal a-fib (2) Acute on chronic respiratory failure (3) Hypoxia (4) COPD exacerbation (5) Diab Zoey Wo Compl, Type Ii Or Unspec Type, Not Uncntrld (6) Pure Hypercholesterolem (7) Hypertension Nos (8) Anxiety Respiratory: * Chest x-ray: No acute process no evidence of pulmonary edema * ABG 7.33/66/144/34 Compensated Respiratory Acidosis * Possible COPD exacerbation: * Continue BiPAP currently and wean back to patient's chronic 2 L * Continue antibiotics coverage with Levaquin * Continue breathing treatment regimen including: Atrovent and Xopenex nebs q6h * Continue Solu-Medrol 60 mg q8h, will taper ID: * White blood cells within normal limits * Chest x-ray appears clear * Obtain pro-calcitonin with morning labs * Monitor fever curve * Antibiotics as noted above and respiratory Endocrine: * Known type II diabetic * Expect sugars to increase as she is on steroids, monitor closely * Sliding scale insulin & and Lantus in place * Monitor Accu-Cheks per nursing protocol * Last recorded hemoglobin A1c 02/01/16 at 6.1 Cardiac: * History of proximal A. fib, continue home medications of Xarelto and amiodarone * Sinus tachycardia noted tonight * Last [id number]/12/14: Mild left ventricular hypertrophy; EF 65%; calcified left ventricular papillary muscle and calcified mitral apparatus, no intra-arterial shunt via agitated saline injection * BNP consistent with respiratory disease * Troponin negative Will trend * EKG from 1200 reviewed: A rate of 108, QTC of 479, sinus tachycardia with premature supraventricular complex. * Repeat this admission * Continue home cardiac meds of atorvastatin and amlodipine : * Meeks in place to gravity * Monitor I's and O's * Patient previously received 80 mg Lasix; no further diuresis advised * Monitor daily labs: bun/cr: 17/0.8 GI: * Type 2 diabetes AHA diet ordered; currently on BiPAP * Will need to hold meals until patient can tolerate a period of time off of BiPAP * Continue home Protonix; patient with history of GI bleed Neuro: * Patient with known anxiety/depression * Anxious about BiPAP * Will provide Precedex drip in an effort to decrease anxiety without affecting respiratory drive * Continue home psychiatric meds * Patient denies pain, Tylenol 650 mg every 4 hours available Heme: * Baseline chronic anemia; continue home medication of folic acid and ferrous sulfate. * H&H 9.0/30.3; platelets 231 * Monitor with daily labs, minimize phlebotomy draws * Patient on Xarelto, chemical prophylaxis in place for DVT * Will order SCDs in addition Access: [address]; currently no indication for central access or arterial line CCT: 37 minutes; Not including any billable procedures. Thank you for including us in the care of this patient. Please review Dr. Karthik Gilmore's addendum for further recommendations. I have personally evaluated and examined this patient. I agree with assessment and plan of Aline Cote PA-C.
[2016-09-10] MEDS ORDERED: DexMEDEtomidine IV DRIP IV STA (23:31)
[2016-09-10] MEDS ORDERED: DexMEDEtomidine HCL IV 200 MCG in SODIUM CHLORIDE 0.9% 50ML 48 ML IV PRN (23:45)
[2016-09-10] MEDS: INSULIN GLARGINE SOLOSTAR 100 UNITS/ML 3 ML PEN SC SCH (23:55)
[2016-09-11] VITALS (28 sets, daily range): BP systolic 94–183; BP diastolic 46–80; PULSE 69–108; TEMP 36.7–37; O2SAT 95–100
[2016-09-11 01:00] LABS: CKMB/CK RATIO 4.3 (0-3.0)
[2016-09-11] MEDS: IPRATROPIUM BROMIDE NEB SOLN 0.02% 2.5 ML VIAL INH SCH ×3 (02:45→14:06)
[2016-09-11] MEDS: LEVALBUTEROL 1.25MG/0.5ML NEB INH SCH ×3 (03:22→14:06)
[2016-09-11] MEDS: METHYLPREDNISOLONE IV 60 MG in SYRINGE 0 ML IV SCH ×3 (04:07→20:18)
[2016-09-11 06:03] LABS: HEMATOCRIT 29.3 % (37-47); MEAN CELL VOLUME 97.3 fL (80-100); MEAN CORPUSCULAR HEMOGLOBIN 28.6 pg (25-34); MEAN CORPUSCULAR HGB CONC 29.4 g/dl (32-36); MEAN PLATELET VOLUME 10.4 fL (7.4-10.4); PLATELET COUNT 204 K/uL (130-400); RED BLOOD COUNT 3.01 M/uL (4.2-5.4); WHITE BLOOD COUNT 4.59 K/uL (4.8-10.8)
[2016-09-11 06:37] LABS: BUN/CREATININE RATIO 26.9 (10-20); CREATININE 0.81 mg/dl (0.60-1.20); MAGNESIUM 2.4 mg/dl (1.8-2.4); POTASSIUM 3.8 mmol/L (3.5-5.1)
[2016-09-11] MEDS: INSULIN ASPART 100 UNITS/ML 3 ML PEN SC SCH ×4 (06:45→22:16)
[2016-09-11] MEDS ORDERED: RAPID SEQUENCE INDUCTION BAG ONE (07:09)
[2016-09-11] MEDS ORDERED: MoRPHine SULFATE 2 MG/ML CARP ONE (07:09)
[2016-09-11] MEDS: LACTOBACILLUS ACIDOPHILUS (FLORANEX) TAB PO SCH ×3 (07:15→16:30)
[2016-09-11] MEDS: FERROUS SULFATE 325 MG TAB PO SCH ×2 (07:15→16:30)
[2016-09-11] MEDS: PANTOprazole SOD 40 MG TAB PO SCH (09:00)
[2016-09-11] MEDS: AMIODARONE 200 MG TAB PO SCH (09:00)
[2016-09-11] MEDS: CHOLECALCIFEROL 1000 INTER.UNIT TAB PO SCH (09:00)
[2016-09-11] MEDS: VENLAFAXINE HCL XR 150 MG CAPXR PO SCH (09:00)
[2016-09-11] MEDS: GUAIFENESIN 600 MG TABCR PO SCH (09:00)
[2016-09-11] MEDS: ATORVASTATIN 40 MG TAB PO SCH (09:00)
[2016-09-11] MEDS: VENLAFAXINE HCL XR 75 MG CAPXR PO SCH (09:00)
[2016-09-11] MEDS: AMLODIPINE BESYLATE 5 MG TAB PO SCH (09:00)
[2016-09-11] MEDS: BusPIRone 15 MG TAB PO SCH ×3 (09:00→21:00)
--- NOTE | 2016-09-11 11:51 | Critical Care Progress Note ---
Critical Care Progress Note Date of Service Sep 11, 2016. ICU Day ICU Day Number: [address] Gilmore Subjective Dyspnea, acute on chronic respiratory failure. Increased anxiety with wearing BiPAP especially in the setting of relative hypoxia. Objective Physical Exam: General - NAD, BiPAP mask in place Eyes - PERRL, EOMI ENT - Mucosa moist, no lesions or candidiasis Neck - Supple, trachea midline, no masses or lymphadenopathy, Lungs -prolonged expiratory phase, diminished sounds to auscultation bilaterally , no wheezes, rales, or rhonchi Heart -sinus tachycardia, No murmur, rubs, clicks, or gallops appreciated Abdomen - BS present, no bruits noted, tympanic to percussion, soft, nontender, nondistended, no organomegaly Extremities -trace edema, pedal pulses intact Neuro - A&OX4 Current SOFA Score SOFA Score Response (Comments) Value PaO2/FiO2 (mmHg) < 400 1 Total 1 Previous SOFA Scores 1 on 09/10/2016 Assessment & Plan (1) Paroxysmal a-fib (2) Acute on chronic respiratory failure (3) Hypoxia (4) COPD exacerbation (5) Diab Zoey Wo Compl, Type Ii Or Unspec Type, Not Uncntrld (6) Pure Hypercholesterolem (7) Hypertension Nos (8) Anxiety Neuro: * Patient with known anxiety/depression * Anxious about BiPAP * Precedex increased to 0.7 * Continue home psychiatric meds * Patient denies pain, Tylenol 650 mg every 4 hours available * Given 50 mg IV ketamine, adequate anxiolysis significant improvement and anxiety Respiratory: * COPD exacerbation: * Continue BiPAP currently and wean back to patient's chronic 2 L * Continue antibiotics coverage with Levaquin for 7 days * Continue breathing treatment regimen including: Atrovent and Xopenex nebs q6h * Continue Solu-Medrol 60 mg q8h ID: * White blood cells within normal limits * Chest x-ray appears clear * Procalcitonin negative * Monitor fever curve * Antibiotics as noted above and respiratory Endocrine: * Known type II diabetic * Expect sugars to increase as she is on steroids, monitor closely * Sliding scale insulin & and Lantus in place * Monitor Accu-Cheks per nursing protocol * Last recorded hemoglobin A1c 02/01/16 at 6.1 Cardiac: * History of proximal A. fib, continue home medications of Xarelto and amiodarone * Sinus tachycardia noted tonight * Last [id number]/14: Mild left ventricular hypertrophy; EF 65%; calcified left ventricular papillary muscle and calcified mitral apparatus, no intra-arterial shunt via agitated saline injection * BNP consistent with respiratory disease * Reviewed echo dated 09/11/2016 * EKG from 1200 reviewed: A rate of 108, QTC of 479, sinus tachycardia with premature supraventricular complex. * Continue home cardiac meds of atorvastatin and amlodipine : * No evidence of volume overload * Patient receiving some fluid through IV infusions not starting maintenance fluids at this time. * If patient's respiratory status improves may be able to transition to high flow nasal cannula to allow more nutritional intake GI: * Type 2 diabetes AHA diet ordered; currently on BiPAP * Will need to hold meals until patient can tolerate a period of time off of BiPAP * To start feeding tomorrow if respiratory status improves * Continue home Protonix; patient with history of GI bleed Heme: * Baseline chronic anemia; continue home medication of folic acid and ferrous sulfate. * H&H 9.0/30.3; platelets 231 * Monitor with daily labs, minimize phlebotomy draws * Patient on Xarelto, we will continue * Will order SCDs in addition Access: Arterial line placed 09/11/2016 I have personally spent 40 minutes of critical care time in the direct management of this patient. This is a life/limb threatening event. This includes time spent evaluating patient, direct bedside care, chart review, placing orders, interpretation of diagnostic studies, discussion with consultants, patient, and family members, as well as other required patient management activities. This time is exclusive of all separately billable procedures, and teaching time and separate from and in addition to any other critical care service time. Consults & Procedures Consultants: None Procedures: Right arterial line: 09/11/2016 Data Medications: Current Inpatient Medications Medications (Trade) Dose Ordered Sig/Buddy Route Start Time Stop Time Status Last Admin Dose Admin Acetaminophen (Tylenol Tab) 650 mg Q4H PRN PO 09/10/16 15:00 10/10/16 14:59 Al Hydrox/Mg Hydrox/Simethicone (Maalox Max Susp) 15 ml Q4H PRN PO 09/10/16 15:00 10/10/16 14:59 Magnesium Hydroxide (Milk Of Magnesia Susp) 30 ml Q12H PRN PO 09/10/16 15:00 10/10/16 14:59 Ondansetron HCl (Zofran Inj) 4 mg Q6H PRN IV 09/10/16 15:00 10/10/16 14:59 Polyethylene (Miralax Powder Packet) 17 gm DAILY PRN PO 09/10/16 15:00 10/10/16 14:59 Ipratropium [place] (Atrovent 0.02% 0.5MG/2.5ML Neb) 0.5 mg Q8R INH 09/10/16 16:00 10/10/16 15:59 09/11/16 07:27 0.5 MG Levalbuterol (Xopenex 1.25MG/ 0.5ML Neb) 1.25 mg Q6R INH 09/10/16 15:00 10/10/16 14:59 09/11/16 07:27 1.25 MG Amiodarone HCl (Cordarone Tab) 100 mg DAILY PO 09/11/16 09:00 10/11/16 08:59 Atorvastatin Calcium (Lipitor Tab) 80 mg DAILY PO 09/11/16 09:00 10/11/16 08:59 Buspirone HCl (BusPAR TAB) 15 mg TID PO 09/10/16 21:00 10/10/16 20:59 09/10/16 21:29 15 MG Folic Acid (Folvite Tab) 1 mg DAILY PO 09/11/16 09:00 10/11/16 08:59 Guaifenesin (Mucinex Contr Rel Tab) 600 mg Q12 PO 09/10/16 21:00 10/10/16 20:59 09/10/16 21:29 600 MG Lactobacillus Acidophilus (Floranex Tab) 1 tab TIDM PO 09/10/16 18:00 10/10/16 17:59 Pantoprazole Sodium (Protonix Tab) 40 mg DAILY PO 09/11/16 09:00 10/11/16 08:59 Rivaroxaban (Xarelto Tab) 20 mg QDD PO 09/11/16 16:30 10/11/16 16:44 Trazodone HCl (Desyrel Tab) 200 mg HS PO 09/10/16 21:00 10/10/16 20:59 09/10/16 21:29 200 MG Venlafaxine HCl (effeXOR EXTENDED REL CAP) 75 mg DAILY PO 09/11/16 09:00 10/11/16 08:59 Venlafaxine HCl (effeXOR EXTENDED REL CAP) 150 mg DAILY PO 09/11/16 09:00 10/11/16 08:59 Cholecalciferol (Vitamin D Tab) 2,000 inter.unit DAILY PO 09/11/16 09:00 10/11/16 08:59 Ferrous Sulfate 325 mg 325 mg BIDM PO 09/10/16 18:00 10/10/16 17:59 Levofloxacin 750 mg/Prmx 150 ml @ 100 mls/hr Q24H IV 09/10/16 18:00 09/17/16 17:59 09/10/16 19:19 100 MLS/HR Methylprednisolone Sodium Succinate/ Syringe (Solu-Medrol IV/ Syringe) 0.96 ml @ 1.5 mls/min Q8H IV 09/10/16 20:00 10/10/16 19:59 09/11/16 04:07 1.5 MLS/MIN Levalbuterol (Xopenex 1.25MG/ 0.5ML Neb) 1.25 mg Q2H PRN INH 09/10/16 15:30 10/10/16 15:29 Ipratropium [place] (Atrovent 0.02% 0.5MG/2.5ML Neb) 0.5 mg Q2H PRN INH 09/10/16 15:30 10/10/16 15:29 Insulin Aspart (novoLOG ASPART) SLIDING SCALE If C... ACHS SC 09/10/16 21:00 10/10/16 20:59 09/10/16 21:28 2 UNITS Glucose (Glucose 40% Gel) 15-30 GRAMS 15 GRAMS... UD PRN PO 09/10/16 15:30 10/10/16 15:29 Glucose (Glucose Chew Tab) 4-8 Tablets 4 Tabl... UD PRN PO 09/10/16 15:30 10/10/16 15:29 Dextrose (Dextrose 50% 50ML Syringe) 25-50ML OF 50% DW IV FOR... UD PRN IV 09/10/16 15:30 10/10/16 15:29 Glucagon (Glucagon Inj) 1 mg UD PRN SQ 4/29/17 15:30 10/10/16 15:29 Amlodipine Besylate (Norvasc Tab) 5 mg QAM PO 09/11/16 09:00 10/11/16 08:59 Insulin Glargine 10 unit 10 unit HS SC 09/10/16 23:15 10/10/16 23:14 09/10/16 23:55 10 UNIT Dexmedetomidine HCl/Sodium Chloride (PreCEDEX INJ/ Nss 50ml) 50 ml @ 0 mls/hr Q0M PRN IV 09/10/16 23:45 09/14/16 23:44 09/10/16 23:54 4 MLS/HR Morphine Sulfate (MoRPHine SULFATE INJ) 2 mg Q4H PRN IV 09/11/16 07:30 09/25/16 07:29 I & O: 24-Hour Column 09/11/16 08:00 Intake Total 218 ml Output Total 800 ml Balance -582 ml Vital Signs: Date Time Temp Pulse Resp B/P Pulse Ox O2 Delivery O2 Flow Rate FiO2 09/11/16 11:12 101 100 50 09/11/16 10:55 90 100 60 09/11/16 10:00 94 20 128/74 99 BiPAP 50 09/11/16 08:00 37.0 92 26 126/61 99 BiPAP 60 142/50 09/11/16 08:00 99 BiPAP 09/11/16 07:27 108 34 99 BiPAP/CPAP 60 09/11/16 07:27 108 99 60 09/11/16 06:00 97 147/80 98 BiPAP 09/11/16 05:00 91 116/66 97 BiPAP 09/11/16 04:45 96 BiPAP 40 09/11/16 04:00 100 183/79 98 BiPAP 09/11/16 03:00 92 119/68 97 BiPAP 09/11/16 02:50 105 100 40 09/11/16 02:45 105 22 99 BiPAP/CPAP 40 09/11/16 02:00 95 145/62 95 BiPAP 09/11/16 01:00 98 94/60 97 BiPAP 09/11/16 00:08 96 BiPAP 40 09/11/16 00:00 98 139/76 98 BiPAP 09/10/16 23:00 98 100 40 09/10/16 23:00 102 145/77 98 BiPAP 09/10/16 22:00 101 157/78 98 BiPAP 09/10/16 21:01 36.4 105 28 95 09/10/16 21:00 105 100 40 09/10/16 21:00 110 150/76 96 BiPAP 09/10/16 20:00 98 BiPAP 40 09/10/16 19:39 112 100 40 09/10/16 19:28 115 28 156/69 99 BiPAP 09/10/16 18:38 115 28 95 BiPAP/CPAP 40 09/10/16 18:16 111 95 40 09/10/16 17:49 110 24 160/85 97 09/10/16 16:00 107 22 155/76 94 BiPAP 35 09/10/16 15:05 100 BiPAP 5.0 45 09/10/16 15:01 108 22 158/70 100 BiPAP 5.0 45 09/10/16 14:00 166/49 09/10/16 13:49 114 31 99 09/10/16 13:30 180/62 09/10/16 13:19 122 30 99 09/10/16 13:19 124 95 45 09/10/16 13:14 104 09/10/16 13:09 BiPAP 09/10/16 13:01 156/109 09/10/16 12:49 129 29 100 09/10/16 12:30 152/98 09/10/16 12:24 106 24 178/72 99 Nebulizer 09/10/16 12:23 178/72 09/10/16 12:23 100 20 94 Nasal Cannula 4.0 09/10/16 12:19 107 25 97 09/10/16 12:08 94 Nasal Cannula 4.0 09/10/16 12:08 94 Nasal Cannula 4.0 09/10/16 12:07 96 Nasal Cannula 4.0 09/10/16 12:06 157/98 09/10/16 11:53 36.4 106 26 147/74 65 Nasal Cannula Laboratory Results: Last 24 Hours Test 09/10/16 12:00 09/10/16 15:22 09/10/16 18:14 09/10/16 18:24 White Blood Count 7.60 K/uL Red Blood Count 3.07 M/uL Hemoglobin 9.0 g/dL Hematocrit 30.3 % Mean Corpuscular Volume 98.7 fL Mean Corpuscular Hemoglobin 29.3 pg Mean Corpuscular Hemoglobin Concent 29.7 g/dl Platelet Count 231 K/uL Mean Platelet Volume 10.0 fL Neutrophils (%) (Auto) 86.7 % Lymphocytes (%) (Auto) 7.0 % Monocytes (%) (Auto) 5.9 % Eosinophils (%) (Auto) 0.0 % Basophils (%) (Auto) 0.3 % Neutrophils # (Auto) 6.59 K/uL Lymphocytes # (Auto) 0.53 K/uL Monocytes # (Auto) 0.45 K/uL Eosinophils # (Auto) 0.00 K/uL Basophils # (Auto) 0.02 K/uL RDW Standard Deviation 54.1 fL RDW Coefficient of Variation 15.2 % Immature Granulocyte % (Auto) 0.1 % Immature Granulocyte # (Auto) 0.01 K/uL Nucleated RBC Absolute Count (auto) 0.02 K/uL Nucleated Red Blood Cells % 0.2 % Prothrombin Time 10.0 SECONDS Prothromb Time International Ratio 0.9 Activated Partial Thromboplast Time 24.5 SECONDS Partial Thromboplastin Ratio 0.9 Sodium Level 141 mmol/L Potassium Level 3.8 mmol/L Chloride Level 99 mmol/L Carbon Dioxide Level 34 mmol/L Anion Gap 8.0 mmol/L Blood Urea Nitrogen 17 mg/dl Creatinine 0.80 mg/dl Estimated GFR () 84.2 Estimated GFR (Non- 72.6 BUN/Creatinine Ratio 21.6 Random Glucose 193 mg/dl Calcium Level 8.4 mg/dl Magnesium Level 2.3 mg/dl Total Bilirubin 0.3 mg/dl Aspartate Amino Transf (AST/SGOT) 22 U/L Alanine Aminotransferase (ALT/SGPT) 19 U/L Alkaline Phosphatase 93 U/L Total Creatine Kinase 97 U/L 109 U/L Creatine Kinase MB 4.7 ng/ml 4.4 ng/ml Creatine Kinase MB Ratio 4.8 4.0 Troponin I < 0.015 ng/ml < 0.015 ng/ml Pro-B-Type Natriuretic Peptide 277 pg/ml Total Protein 7.0 gm/dl Albumin 3.2 gm/dl Globulin 3.8 gm/dl Albumin/Globulin Ratio 0.8 Arterial Blood pH 7.33 Arterial Blood Partial Pressure CO2 66 mmHg Arterial Blood Partial Pressure O2 144 mm/Hg Arterial Blood HCO3 34 mmol/L Arterial Blood Oxygen Saturation 97.6 % Arterial Blood Base Excess 6.7 mEq/L Arterial Blood Gas Delivery 45% Red Test POS Bedside Glucose 212 mg/dl Test 09/10/16 20:33 09/10/16 21:17 09/11/16 00:00 09/11/16 00:19 Bedside Glucose 246 mg/dl 245 mg/dl Creatine Kinase MB Ratio 4.3 Total Creatine Kinase 100 U/L Creatine Kinase MB 4.3 ng/ml Troponin I 0.017 ng/ml Test 09/11/16 05:47 09/11/16 06:34 09/11/16 11:25 White Blood Count 4.59 K/uL Red Blood Count 3.01 M/uL Hemoglobin 8.6 g/dL Hematocrit 29.3 % Mean Corpuscular Volume 97.3 fL Mean Corpuscular Hemoglobin 28.6 pg Mean Corpuscular Hemoglobin Concent 29.4 g/dl RDW Standard Deviation 54.1 fL RDW Coefficient of Variation 15.1 % Platelet Count 204 K/uL Mean Platelet Volume 10.4 fL Sodium Level 141 mmol/L Potassium Level 3.8 mmol/L Chloride Level 98 mmol/L Carbon Dioxide Level 39 mmol/L Anion Gap 4.0 mmol/L Blood Urea Nitrogen 22 mg/dl Creatinine 0.81 mg/dl Est Creatinine Clear Calc Drug Dose 69.8 ml/min Estimated GFR () 82.9 Estimated GFR (Non- 71.5 BUN/Creatinine Ratio 26.9 Random Glucose 164 mg/dl Calcium Level 9.0 mg/dl Ionized Calcium 1.14 mmol/l Magnesium Level 2.4 mg/dl Procalcitonin < 0.05 ng/ml Bedside Glucose 189 mg/dl 161 mg/dl
[2016-09-11] MEDS ORDERED: KETAMINE HCL INJ 50 MG/ML 10 ML VIAL IV STA (13:00)
[2016-09-11] MEDS ORDERED: KETAMINE HCL IV ONE (13:30)
[2016-09-11 14:30] LABS: IPAP 12; ISTAT ARTERIAL BLOOD GAS HCO3 41 meq/L (19-24); ISTAT ARTERIAL BLOOD GAS PCO2 78 mmHg (35-46); ISTAT ARTERIAL BLOOD GAS PO2 146 mmHg (80-95); ISTAT ARTERIAL BLOOD GAS pH 7.32 (7.35-7.45); ISTAT CARBON DIOXIDE > 40 mEq/l (24-31); ISTAT DELIVERY SYSTEM BIPAP; ISTAT FIO2 40 %; ISTAT SITE Art Line
--- NOTE | 2016-09-11 14:31 | ECHOCARDIOGRAM REPORT ---
*NOTICE TO RECEIVING REPUBLICAN AGENCY This information is strictly Confidential and protected under [place] law. [place] law prohibits you from making any further disclosure of this information unless further disclosure is expressly permitted by the written consent of the person to whom it pertains or is authorized by law. A general authorization for the release of medical or other information is not sufficient for this purpose. Hospital accepts no responsibility if the information is made available to any other person, INCLUDING THE PATIENT. Interpretation Summary * Name: IKE WEAVER Study Date: 09/11/2016 09:56 AM BP: 101/68 mmHg * Patient Location: .MSICU\S\E110\S\1 HR: 90 * : 1940 (M/d/yyy) Gender: Female Height: 65 in * Age: 76 yrs Ethnicity: [place] Weight: 211 lb * Ordering Physician: Nettie López * Referring Physician: Self, Referred * Performed By: Jd Gomez RCS * * Reason For Study: CHF * BSA: 2.0 m2 * -- Conclusions -- * The left ventricle is hyperdynamic. * No regional wall motion abnormalities noted. * Ejection Fraction = >70 %. * There is mild concentric left ventricular hypertrophy. * Grade I diastolic dysfunction, (abnormal relaxation pattern). * There is mild tricuspid regurgitation. Procedure Details * A complete two-dimensional transthoracic echocardiogram was performed (2D, M-mode, Doppler and color flow Doppler). Left Ventricle * The left ventricle is normal in size. * There is mild concentric left ventricular hypertrophy. * The left ventricle is hyperdynamic. * Ejection Fraction = >70 %. * No regional wall motion abnormalities noted. Right Ventricle * The right ventricle is not well visualized. * The right ventricular systolic function is normal as assessed by tricuspid annular plane systolic excursion (TAPSE) (normal >1.5 cm). Atria * The left atrium is mildly dilated. * Right atrium not well visualized. * There is no evidence of atrial septal defect, but resolution does not allow assessment for a patent foramen ovale. Mitral Valve * The mitral valve is not well visualized. * There is no mitral valve stenosis. * Significant mitral regurgitation is absent. Tricuspid Valve * The tricuspid valve is not well visualized. * There is mild tricuspid regurgitation. Aortic Valve * The aortic valve is trileaflet. * The aortic valve opens well. * Aortic valve sclerosis mild, without significant aortic valvular stenosis. * No aortic regurgitation is present. Pulmonic Valve * The pulmonary valve is not well seen, but the Doppler examination is normal without significant regurgitation or stenosis. Great Vessels * The aortic root is normal size. * The pulmonary is not well visualized. Pericardium/Pleural * There is no pericardial effusion. Great Vessels * Normal inferior vena cava size and collapsability with sniff indicates a normal right atrial pressure of 3 mmHg Left Ventricular Diastolic Function * Grade I diastolic dysfunction, (abnormal relaxation pattern). MMode 2D Measurements and Calculations IVSd 1.0 cm IVSs 1.4 cm LVIDd 4.5 cm LVIDs 2.8 cm LVPWd 10 cm LVPWs 1.3 cm IVS/LVPW 1.0 FS 37.7 % EDV(Teich) 94.8 ml ESV(Teich) 30.5 ml EF(Teich) 67.9 % EDV(cubed) 94.2 ml ESV(cubed) 22.8 ml EF(cubed) 75.8 % % IVS thick 41.2 % % LVPW thick 30.9 % LV mass(C)d 158.5 grams LV mass(C)dI 78.3 grams/m\S\2 LV mass(C)s 126.9 grams LV mass(C)sI 62.7 grams/m\S\2 CO(Teich) 5.8 l/min CI(Teich) 2.9 l/min/m\S\2 SV(Teich) 64.4 ml SI(Teich) 31.8 ml/m\S\2 CO(cubed) 6.4 l/min CI(cubed) 3.2 l/min/m\S\2 SV(cubed) 71.4 ml SI(cubed) 35.3 ml/m\S\2 Ao root diam 3.4 cm Ao root area 9.3 cm\S\2 ACS 1.4 cm LA dimension 4.0 cm LA/Ao 1.2 LVAd ap4 27.8 cm\S\2 LVLd ap4 7.6 cm EDV(MOD-sp4) 84.0 ml LVAs ap4 12.7 cm\S\2 LVLs ap4 6.4 cm ESV(MOD-sp4) 23.0 ml EF(MOD-sp4) 72.6 % LVAd ap2 27.9 cm\S\2 LVLd ap2 7.6 cm EDV(MOD-sp2) 85.0 ml LVAs ap2 10.8 cm\S\2 LVLs ap2 5.7 cm ESV(MOD-sp2) 20.0 ml EF(MOD-sp2) 76.5 % CO(MOD-sp4) 5.5 l/min CI(MOD-sp4) 2.7 l/min/m\S\2 SV(MOD-sp4) 61.0 ml SI(MOD-sp4) 30.1 ml/m\S\2 CO(MOD-sp2) 5.9 l/min CI(MOD-sp2) 2.9 l/min/m\S\2 SV(MOD-sp2) 65.0 ml SI(MOD-sp2) 32.1 ml/m\S\2 Doppler Measurements and Calculations Ao V2 max 154.1 cm/sec Ao max PG 9.5 mmHg Ao max PG (full) 3.4 mmHg LV V1 max PG 6.1 mmHg LV V1 max 123.9 cm/sec PA V2 max 126.0 cm/sec PA max PG 6.4 mmHg TR max karen 238.2 cm/sec
--- NOTE | 2016-09-11 14:51 | Family Medicine Progress Note ---
Progress Note Date of Service Sep 11, 2016. History Resident Physician Supervision Note: I was present with Dr. Arellano during the history and exam. I discussed the case with the resident and agree with the findings and plan as documented in the note. Any exceptions or clarifications are listed here. Mrs. Church is resting in bed communicating well with the BIPAP. She feels she is breathing well with support and is comfortable. She reports no fever, FRASER, lightheadedness , paresthesias, CP/palpitations, nausea. General Appearance: WD/WN, mild distress (on BIPAP) Respiratory: chest non-tender, decreased breath sounds (throughout), wheezing ( minimal appreciated wheezing) Cardiovascular: normal peripheral pulses, regular rate, rhythm, no murmur Gastrointestinal: normal bowel sounds, non tender, soft, no organomegaly Assessment/Plan 76 y/o female h/o COPD p/w acute exacerbation requiring continuous BIPAP COPD exacerbation - continue bipap - may try to wean down this afternoon if condition improves w/ steroids, nebs, abx - levofloxacin (D1/7) - Duonebs q4h - continue IV steroids q8 Atrial fibrillation - holding PO meds this morning, but would consider restarting if reliance on BIPAP decreases (amiodarone should be restarted MONA) HTN - restart amlodipine once PO wean, IV hydralazine PRN Hyperlipidemia - holding atorvastatin at this time DMII - presently w/ lantus 10U and ISS, adjust once more FSBS for IV steroids, ? infection Anxiety/Depression DVT prophylaxis - SCD and xarelto once restarted FULL CODE
--- NOTE | 2016-09-11 16:29 | Family Medicine Progress Note ---
Progress Note Date of Service Sep 11, 2016. Subjective Pt evaluation today including: conversation w/ patient, conversation w/ family , physical exam, review of studies, conversation w/ process consultant, review of inpatient medication list Pain: none PO Intake: NPO Voiding: benedict catheter in place Patient still SOB at rest. She says that her shortness of breath is similar to what is was yesterday. She is anxious about having the bipap on. She denies any fevers, night sweats or chills, denies chest pain, palpitations, nausea, vomiting, diarrhea, numbness or tingling Additional Comments: Please see note for ROS Medications Current Inpatient Medications Medications (Trade) Dose Ordered Sig/Buddy Route Start Time Stop Time Status Last Admin Dose Admin Acetaminophen (Tylenol Tab) 650 mg Q4H PRN PO 09/10/16 15:00 10/10/16 14:59 Al Hydrox/Mg Hydrox/Simethicone (Maalox Max Susp) 15 ml Q4H PRN PO 09/10/16 15:00 10/10/16 14:59 Magnesium Hydroxide (Milk Of Magnesia Susp) 30 ml Q12H PRN PO 09/10/16 15:00 10/10/16 14:59 Ondansetron HCl (Zofran Inj) 4 mg Q6H PRN IV 09/10/16 15:00 10/10/16 14:59 Polyethylene (Miralax Powder Packet) 17 gm DAILY PRN PO 09/10/16 15:00 10/10/16 14:59 Ipratropium [place] (Atrovent 0.02% 0.5MG/2.5ML Neb) 0.5 mg Q8R INH 09/10/16 16:00 10/10/16 15:59 09/11/16 07:27 0.5 MG Levalbuterol (Xopenex 1.25MG/ 0.5ML Neb) 1.25 mg Q6R INH 09/10/16 15:00 10/10/16 14:59 09/11/16 07:27 1.25 MG Amiodarone HCl (Cordarone Tab) 100 mg DAILY PO 09/11/16 09:00 10/11/16 08:59 Atorvastatin Calcium (Lipitor Tab) 80 mg DAILY PO 09/11/16 09:00 10/11/16 08:59 Buspirone HCl (BusPAR TAB) 15 mg TID PO 09/10/16 21:00 10/10/16 20:59 09/10/16 21:29 15 MG Folic Acid (Folvite Tab) 1 mg DAILY PO 09/11/16 09:00 10/11/16 08:59 Lactobacillus Acidophilus (Floranex Tab) 1 tab TIDM PO 09/10/16 18:00 10/10/16 17:59 Pantoprazole Sodium (Protonix Tab) 40 mg DAILY PO 09/11/16 09:00 10/11/16 08:59 Rivaroxaban (Xarelto Tab) 20 mg QDD PO 09/11/16 16:30 10/11/16 16:44 Trazodone HCl (Desyrel Tab) 200 mg HS PO 09/10/16 21:00 10/10/16 20:59 09/10/16 21:29 200 MG Venlafaxine HCl (effeXOR EXTENDED REL CAP) 75 mg DAILY PO 09/11/16 09:00 10/11/16 08:59 Venlafaxine HCl (effeXOR EXTENDED REL CAP) 150 mg DAILY PO 09/11/16 09:00 10/11/16 08:59 Cholecalciferol (Vitamin D Tab) 2,000 inter.unit DAILY PO 09/11/16 09:00 10/11/16 08:59 Ferrous Sulfate 325 mg 325 mg BIDM PO 09/10/16 18:00 10/10/16 17:59 Levofloxacin 750 mg/Prmx 150 ml @ 100 mls/hr Q24H IV 09/10/16 18:00 09/17/16 17:59 09/10/16 19:19 100 MLS/HR Methylprednisolone Sodium Succinate/ Syringe (Solu-Medrol IV/ Syringe) 0.96 ml @ 1.5 mls/min Q8H IV 09/10/16 20:00 10/10/16 19:59 09/11/16 13:21 1.5 MLS/MIN Levalbuterol (Xopenex 1.25MG/ 0.5ML Neb) 1.25 mg Q2H PRN INH 09/10/16 15:30 10/10/16 15:29 Ipratropium [place] (Atrovent 0.02% 0.5MG/2.5ML Neb) 0.5 mg Q2H PRN INH 09/10/16 15:30 10/10/16 15:29 Insulin Aspart (novoLOG ASPART) SLIDING SCALE If C... ACHS SC 09/10/16 21:00 10/10/16 20:59 09/10/16 21:28 2 UNITS Glucose (Glucose 40% Gel) 15-30 GRAMS 15 GRAMS... UD PRN PO 09/10/16 15:30 10/10/16 15:29 Glucose (Glucose Chew Tab) 4-8 Tablets 4 Tabl... UD PRN PO 09/10/16 15:30 10/10/16 15:29 Dextrose (Dextrose 50% 50ML Syringe) 25-50ML OF 50% DW IV FOR... UD PRN IV 09/10/16 15:30 10/10/16 15:29 Glucagon (Glucagon Inj) 1 mg UD PRN SQ 09/10/16 15:30 10/10/16 15:29 Amlodipine Besylate (Norvasc Tab) 5 mg QAM PO 09/11/16 09:00 10/11/16 08:59 Insulin Glargine 10 unit 10 unit HS SC 09/10/16 23:15 10/10/16 23:14 09/10/16 23:55 10 UNIT Dexmedetomidine HCl/Sodium Chloride (PreCEDEX INJ/ Nss 50ml) 50 ml @ 0 mls/hr Q0M PRN IV 09/10/16 23:45 09/14/16 23:44 09/10/16 23:54 4 MLS/HR Morphine Sulfate (MoRPHine SULFATE INJ) 2 mg Q4H PRN IV 09/11/16 07:30 09/25/16 07:29 Objective Vital Signs Date Time Temp Pulse Resp B/P Pulse Ox O2 Delivery O2 Flow Rate FiO2 09/11/16 14:00 36.7 89 27 120/59 97 BiPAP 40 123/57 09/11/16 12:00 101 32 149/65 97 BiPAP 163/60 09/11/16 12:00 97 BiPAP 40 09/11/16 11:12 101 100 50 09/11/16 10:55 90 100 60 09/11/16 10:00 94 20 128/74 99 BiPAP 50 09/11/16 08:00 37.0 92 26 126/61 99 BiPAP 60 142/50 4/30/17 08:00 99 BiPAP 09/11/16 07:27 108 34 99 BiPAP/CPAP 60 09/11/16 07:27 108 99 60 09/11/16 06:00 97 147/80 98 BiPAP 09/11/16 05:00 91 116/66 97 BiPAP 09/11/16 04:45 96 BiPAP 40 09/11/16 04:00 100 183/79 98 BiPAP 09/11/16 03:00 92 119/68 97 BiPAP 09/11/16 02:50 105 100 40 09/11/16 02:45 105 22 99 BiPAP/CPAP 40 09/11/16 02:00 95 145/62 95 BiPAP 09/11/16 01:00 98 94/60 97 BiPAP 09/11/16 00:08 96 BiPAP 40 09/11/16 00:00 98 139/76 98 BiPAP 09/10/16 23:00 98 100 40 09/10/16 23:00 102 145/77 98 BiPAP 09/10/16 22:00 101 157/78 98 BiPAP 09/10/16 21:01 36.4 105 28 95 09/10/16 21:00 105 100 40 09/10/16 21:00 110 150/76 96 BiPAP 09/10/16 20:00 98 BiPAP 40 09/10/16 19:39 112 100 40 09/10/16 19:28 115 28 156/69 99 BiPAP 09/10/16 18:38 115 28 95 BiPAP/CPAP 40 09/10/16 18:16 111 95 40 09/10/16 17:49 110 24 160/85 97 Physical Exam General Appearance: WD/WN, + mild distress Neck: supple, thyroid normal, no JVD, trachea midline Respiratory/Chest: lungs clear, + decreased breath sounds (decreased breath sounds bilaterally), + pertinent finding (no wheeze, rales or rhonchi) Cardiovascular: regular rate, rhythm, no edema, no JVD, no murmur Abdomen: normal bowel sounds, non tender, soft Extremities: non-tender, no pedal edema, no calf tenderness Neurologic/Psychiatric: alert, normal mood/affect, oriented x 3 Laboratory Results Results Past 24 Hours Test 09/10/16 18:14 09/10/16 18:24 09/10/16 20:33 09/10/16 21:17 Range/Units Bedside Glucose 212 246 245 70-90 mg/dl Total Creatine Kinase 109 26-192 U/L Creatine Kinase MB 4.4 0.5-3.6 ng/ml Creatine Kinase MB Ratio 4.0 0-3.0 Troponin I < 0.015 0-0.045 ng/ml Test 09/11/16 00:00 09/11/16 00:19 09/11/16 05:47 09/11/16 06:34 Range/Units Creatine Kinase MB Ratio 4.3 0-3.0 Total Creatine Kinase 100 26-192 U/L Creatine Kinase MB 4.3 0.5-3.6 ng/ml Troponin I 0.017 0-0.045 ng/ml White Blood Count 4.59 4.8-10.8 K/uL Red Blood Count 3.01 4.2-5.4 M/uL Hemoglobin 8.6 12.0-16.0 g/dL Hematocrit 29.3 37-47 % Mean Corpuscular Volume 97.3 80-100 fL Mean Corpuscular Hemoglobin 28.6 25-34 pg Mean Corpuscular Hemoglobin Concent 29.4 32-36 g/dl RDW Standard Deviation 54.1 36.4-46.3 fL RDW Coefficient of Variation 15.1 11.5-14.5 % Platelet Count 204 130-400 K/uL Mean Platelet Volume 10.4 7.4-10.4 fL Sodium Level 141 136-145 mmol/L Potassium Level 3.8 3.5-5.1 mmol/L Chloride Level 98 98-107 mmol/L Carbon Dioxide Level 39 21-32 mmol/L Anion Gap 4.0 3-11 mmol/L Blood Urea Nitrogen 22 7-18 mg/dl Creatinine 0.81 0.60-1.20 mg/dl Est Creatinine Clear Calc Drug Dose 69.8 ml/min Estimated GFR () 82.9 Estimated GFR (Non- 71.5 BUN/Creatinine Ratio 26.9 10-20 Random Glucose 164 70-99 mg/dl Calcium Level 9.0 8.5-10.1 mg/dl Ionized Calcium 1.14 1.12-1.32 mmol/l Magnesium Level 2.4 1.8-2.4 mg/dl Procalcitonin < 0.05 0-0.5 ng/ml Bedside Glucose 189 70-90 mg/dl Test 09/11/16 11:25 09/11/16 14:15 Range/Units Bedside Glucose 161 70-90 mg/dl Blood Gas Sample Site Art Line Bedside Blood Gas pH (LAB) 7.32 7.35-7.45 Bedside Blood Gas pCO2 (LAB) 78 35-46 mmHg Bedside Blood Gas pO2 (LAB) 146 80-95 mmHg Bedside Blood Gas HCO3 (LAB) 41 19-24 meq/L Bedside Blood Gas Total CO2 > 40 24-31 mEq/l Bedside Blood Gas Base Excess (LAB) 15.0 -9-1.8 meq/L Bedside Blood Gas O2 Saturation 99.0 90-95 % Red Test NA Oxygen Delivery Device BIPAP Bedside FiO2 40 % Blood Gas IPAP 12 Assessment and Plan 76 year old female with COPD exacerbation requiring bipap in the ICU COPD exacerbation - continue bipap. ICU to wean down as see fit - continue levaquin for 7 days - continue nebs q6 - IV steroids 60mg Q8 Anxiety/Depression - Precedex at 0.7 - continue home meds - received 50mg IV ketamine T2DM - Sliding scale and Lantus 10 units daily - Last Hba1c 6.1 A fib and HTN and HLD - Xarelto and amiodarone - Continue atorvastatin and amlodipine Diet - NPO - protonix held for now DVT prophylaxis - SCD and xarelto FULL CODE Continued [facility] stay due to: multiple IV medications needed
[2016-09-11] MEDS: RIVAROXABAN 10 MG TAB PO SCH (16:30)
[2016-09-11] MEDS: LEVOFLOXACIN / D5W 750 MG in PREMIXED IN D5W 150 ML IV SCH (18:43)
[2016-09-11] MEDS: TRAZODONE HCL 100 MG TAB PO SCH (21:00)
[2016-09-11] MEDS: MoRPHine SULFATE 2 MG/ML CARP IV PRN (21:38)
[2016-09-11] MEDS: INSULIN GLARGINE SOLOSTAR 100 UNITS/ML 3 ML PEN SC SCH (22:16)
[2016-09-11 23:03] LABS: IPAP 15; ISTAT ARTERIAL BLOOD GAS HCO3 41 meq/L (19-24); ISTAT ARTERIAL BLOOD GAS PCO2 66 mmHg (35-46); ISTAT ARTERIAL BLOOD GAS PO2 112 mmHg (80-95); ISTAT CARBON DIOXIDE > 40 mEq/l (24-31); ISTAT DELIVERY SYSTEM BIPAP; ISTAT FIO2 40 %; ISTAT RATE 18; ISTAT SITE Art Line
[2016-09-12] VITALS (21 sets, daily range): BP systolic 106–177; BP diastolic 50–92; PULSE 63–115; TEMP 37; O2SAT 92–99
[2016-09-12] MEDS: MoRPHine SULFATE 2 MG/ML CARP IV PRN ×4 (02:06→22:15)
[2016-09-12 03:29] LABS: HEMATOCRIT 29.8 % (37-47); MEAN CELL VOLUME 97.7 fL (80-100); MEAN CORPUSCULAR HEMOGLOBIN 28.9 pg (25-34); MEAN CORPUSCULAR HGB CONC 29.5 g/dl (32-36); MEAN PLATELET VOLUME 10.9 fL (7.4-10.4); PLATELET COUNT 201 K/uL (130-400); RED BLOOD COUNT 3.05 M/uL (4.2-5.4); WHITE BLOOD COUNT 6.49 K/uL (4.8-10.8)
[2016-09-12 03:46] LABS: BUN/CREATININE RATIO 49.4 (10-20); CALCIUM 9.1 mg/dl (8.5-10.1); CARBON DIOXIDE 38 mmol/L (21-32); CHLORIDE 101 mmol/L (98-107); GLUCOSE 163 mg/dl (70-99); MAGNESIUM 2.6 mg/dl (1.8-2.4); POTASSIUM 4.1 mmol/L (3.5-5.1); SODIUM 144 mmol/L (136-145)
[2016-09-12 03:47] LABS: BLOOD UREA NITROGEN 40 mg/dl (7-18)
[2016-09-12 03:50] LABS: PHOSPHORUS 3.4 mg/dl (2.5-4.9)
[2016-09-12] MEDS: METHYLPREDNISOLONE IV 60 MG in SYRINGE 0 ML IV SCH ×3 (04:53→19:55)
[2016-09-12 05:56] LABS: IPAP 15; ISTAT ARTERIAL BLOOD GAS HCO3 41 meq/L (19-24); ISTAT ARTERIAL BLOOD GAS PCO2 70 mmHg (35-46); ISTAT ARTERIAL BLOOD GAS PO2 113 mmHg (80-95); ISTAT ARTERIAL BLOOD GAS pH 7.37 (7.35-7.45); ISTAT CARBON DIOXIDE > 40 mEq/l (24-31); ISTAT DELIVERY SYSTEM BIPAP; ISTAT FIO2 40 %; ISTAT RATE 18; ISTAT SITE Art Line
[2016-09-12 06:28] LABS: INR 0.9 (0.9-1.1); PARTIAL THROMBOPLASTIN RATIO 0.9
[2016-09-12 06:31] LABS: ESTIMATED AVERAGE GLUCOSE 111 mg/dl; HA1C FLAG Normal (Normal)
[2016-09-12] MEDS: INSULIN ASPART 100 UNITS/ML 3 ML PEN SC SCH ×4 (06:45→19:52)
[2016-09-12] MEDS: IPRATROPIUM BROMIDE NEB SOLN 0.02% 2.5 ML VIAL INH SCH ×2 (07:20→14:20)
[2016-09-12] MEDS: LEVALBUTEROL 1.25MG/0.5ML NEB INH SCH ×3 (07:20→19:17)
[2016-09-12] MEDS: FERROUS SULFATE 325 MG TAB PO SCH ×2 (08:21→16:32)
[2016-09-12] MEDS: LACTOBACILLUS ACIDOPHILUS (FLORANEX) TAB PO SCH ×3 (08:22→16:33)
[2016-09-12] MEDS: BusPIRone 15 MG TAB PO SCH ×3 (08:22→19:54)
[2016-09-12] MEDS: AMIODARONE 200 MG TAB PO SCH (08:24)
[2016-09-12] MEDS: VENLAFAXINE HCL XR 150 MG CAPXR PO SCH (08:25)
[2016-09-12] MEDS: VENLAFAXINE HCL XR 75 MG CAPXR PO SCH (08:25)
[2016-09-12] MEDS: ATORVASTATIN 40 MG TAB PO SCH (08:27)
[2016-09-12] MEDS: AMLODIPINE BESYLATE 5 MG TAB PO SCH (08:28)
[2016-09-12] MEDS: CHOLECALCIFEROL 1000 INTER.UNIT TAB PO SCH (08:29)
[2016-09-12] MEDS: PANTOprazole SOD 40 MG TAB PO SCH (08:29)
[2016-09-12] MEDS ORDERED: SODIUM CHLORIDE 0.9% 250ML 250 ML IV STA (08:49)
[2016-09-12] MEDS ORDERED: PHARMACY GLYCEMIC MGMT CONSULT PRN (09:00)
--- NOTE | 2016-09-12 09:28 | Clinical Documentation Query ---
CLINICAL DOCUMENTATION QUERY Acute on chronic hypoxic and hypercapneic was well documented on H&P but has since fallen off the record. Given [facility]'s coding department's conservative practices this diagnosis my not get coded if not continued on to DC summary. In your clinical opinion is this patient being managed for: ( x ) Acute and chronic hypoxic and hypercapneic respiratory failure in setting of COPD exacerbation ( ) Ruled out Please clarify and document your clinical opinion in the progress notes and discharge summary. Terms such as "probable", "suspected", "likely", "questionable", "possible", or "still to be ruled out" are acceptable. IF IN AGREEMENT, YOU MUST DOCUMENT ABOVE DIAGNOSTIC STATEMENT IN DAILY PROGRESS NOTES AND DISCHARGE SUMMARY. This document is not part of the patient's record. Thank You, Danish López RN [phone]
--- NOTE | 2016-09-12 09:29 | Clinical Documentation Query ---
CLINICAL DOCUMENTATION QUERY Acute on chronic hypoxic and hypercapneic was well documented on H&P but has since fallen off the record. Given [facility]'s coding department's conservative practices this diagnosis my not get coded if not continued on to DC summary. In your clinical opinion is this patient being managed for: ( ) Acute and chronic hypoxic and hypercapneic respiratory failure in setting of COPD exacerbation ( ) Ruled out Please clarify and document your clinical opinion in the progress notes and discharge summary. Terms such as "probable", "suspected", "likely", "questionable", "possible", or "still to be ruled out" are acceptable. IF IN AGREEMENT, YOU MUST DOCUMENT ABOVE DIAGNOSTIC STATEMENT IN DAILY PROGRESS NOTES AND DISCHARGE SUMMARY. This document is not part of the patient's record. Thank You, Danish López, GABE [phone]
[2016-09-12] MEDS ORDERED: INSULIN GLARGINE SOLOSTAR 100 UNITS/ML 3 ML PEN SC ONE (09:45)
--- NOTE | 2016-09-12 09:53 | Pharmacy Progress Note ---
Glycemic Control Intl Consult Date of Service September 12, 2016. Scope Glycemic Pharmacist consulted for glycemic control and to write orders per [facility] inpatient glycemic control protocol Objective Weight (Kilograms): 93.500 Accuchecks BSG (last 24hrs): Test 09/11/16 11:25 09/11/16 22:07 09/12/16 03:20 Bedside Glucose 161 mg/dl (70-90) 195 mg/dl (70-90) Random Glucose 163 mg/dl (70-99) Laboratory Data (last 24hrs) Test 09/12/16 03:20 Anion Gap 5.0 mmol/L BUN/Creatinine Ratio 49.4 Blood Urea Nitrogen 40 mg/dl Creatinine 0.80 mg/dl Potassium Level 4.1 mmol/L Sodium Level 144 mmol/L White Blood Count 6.49 K/uL HbA1c Test 09/11/16 05:47 Hemoglobin A1c 5.5 % (4.5-5.6) Recent Pertinent Medications Outpatient Anti-diabetic Regimen: * No diabetes medications (but on prednisone 40 mg po BIDM) * A1c = 5.5 % 09/11/16 The patient is currently receiving: * Basal insulin: Lantus 10 units every 24 hours * Correctional Insulin: Novolog Correction per scale ACHS Goal Range: Low 140 mg/dL - High 180 mg/dL Correction Factor: 35 mg/dL/unit * Prandial insulin: None Risk Factors for Insulin Resistance: * Steroids: Methylprednisolone 60 mg IV q8h * Infection: COPD exacerbation, on levofloxacin * Diet: NPO Assessment & Plan ASSESSMENT: * ADA & AACE recommend a goal blood sugar range 140-180 mg/dl for the majority of critically ill & non-critically ill patients. However, more stringent targets may be selected in individual cases. 09/12/16 * 76 yo F non-diabetic patient (per HbA1c) with steroid-induced hyperglycemia. BSG's ranging 161-195 mg/dL over the last 24 hours * Patient was ordered a diet for the first couple days of her admission, but had minimal po intake during that time per RN. Current diet order is NPO but may advance diet today per ICU rounds * Do not anticipate patient will require basal insulin on discharge, therefore no benefit to once-daily administration and will transition to BID dosing to make adjustments as steroids are tapered easier. * Will add in CHO ratio per calculator dosed between weight/stress of 1-2 PLAN FOR INPATIENT GLYCEMIC CONTROL: * Basal insulin with LANTUS 5 units SQ x1 now then BID based on BSG * Hold for BSG < 120 mg/dL *or* steroids not administered * 6 units for BSG 120 mg/dL or greater *and* steroids administered * Correctional Insulin with NOVOLOG per scale ACHS or Q6hrs while NPO * Goal Range: Low 140 mg/dL - High 180 mg/dL * Correction Factor: 35 mg/dL/unit * Nutritional / Prandial insulin per carb ratio of 1 unit per 13 grams CHO consumed * Please note that the plan above was derived based on current level of insulin resistance and hospital stress. These recommendations are appropriate for inpatient admission only. Plan of care upon discharge will need to be reassessed to avoid potential outpatient hypo/hyperglycemia. Thank you.
--- NOTE | 2016-09-12 09:55 | DIAGNOSTIC IMAGING REPORT ---
CHEST ONE VIEW PORTABLE CLINICAL HISTORY: hypoxemia dyspnea COMPARISON STUDY: 09/10/2016 FINDINGS: Chronic pleural reactive changes left base. Lungs otherwise appear clear. Diaphragms are smooth. IMPRESSION: No acute process. Lungs remain clear. Electronically signed by: Jose Angel Richter M.D. 09/12/2016 9:54 AM Dictated Date/Time: 09/12/2016 9:53 AM
[2016-09-12] MEDS ORDERED: POLYETHYLENE (MIRALAX) 17 GM PACK PO ONE (10:45)
--- NOTE | 2016-09-12 11:33 | CRITICAL CARE PROGRESS NOTE ---
DATE: 09/12/2016 HISTORY OF PRESENT ILLNESS: This is a 76-year-old woman with a history of oxygen dependent chronic obstructive pulmonary disease who was admitted to the hospital on September 10 secondary to shortness of breath and a cough productive of yellow sputum. She was given Lasix as well as bronchodilators and intravenous corticosteroids, being treated for an acute exacerbation of chronic obstructive pulmonary disease. She was placed on BiPAP, but required sedation with Precedex and ketamine in order to tolerate it. Her care was discussed in detail on multidisciplinary rounds today. She was started on Levaquin on admission. This morning, her BiPAP was removed and the Precedex was stopped. She is presently on a 40 liter 35% high flow nasal cannula. She reports she feels much better and is not coughing much at all. She feels in particular that it is easier for her to breathe. She denies pain and has not yet had a bowel movement. She reports that she has been taking her Xarelto religiously at home, although she did not get a dose yesterday due to being sedated and on the BiPAP. PHYSICAL EXAMINATION: VITAL SIGNS: Maximum temperature 36.7, heart rate 63-90, respiratory rate 20-22, blood pressure 117-137/50s-70s, oxygen saturation 99%. 24-hour fluid balance minus 788 mL. GENERAL: She is awake, alert and in very mild distress. LUNGS: Have very decreased breath sounds throughout. No rales, rhonchi or wheezes. HEART: Regular rate and rhythm, no murmurs noted. ABDOMEN: Obese, soft, nondistended, nontender. Active bowel sounds. EXTREMITIES: With trace pretibial edema bilaterally. Capillary refill is within normal limits. NEUROLOGIC: She is awake, alert and able to sit up in the bed by pulling herself forward. She easily hold a conversation. LABORATORY DATA: White blood cell count 6.49, hemoglobin 8.8, hematocrit 29.8, platelets 201. Arterial blood gas - pH 7.37, pCO2 of 70, pO2 113, HCO3 41. Sodium 144, potassium 4.1, chloride 101, CO2 38, BUN 40, creatinine 0.8, blood sugar 163, magnesium 2.6. Troponins negative x5. IMAGING DATA: Portable chest x-ray from this morning was reviewed and shows no definite infiltrate. She has chronic pleural reactive changes at the left base. MEDICATIONS AND INFUSIONS: Acetaminophen, Maalox, amiodarone, amlodipine, atorvastatin, buspirone, vitamin D, ferrous sulfate, folic acid, insulin sliding scale, Lantus, Atrovent, Floranex, Xopenex, Levaquin day #3, Solu-Medrol, morphine, Zofran, Protonix, MiraLax, Xarelto, trazodone, Effexor. IMPRESSION: 1. Acute on chronic hypercapnic hypoxemic respiratory failure. Symptomatically, she is improved and her arterial blood gas shows a compensated respiratory acidosis. She still hypoxemic and does not appear to have pneumonia by chest x-ray. She had been taking her Xarelto and that makes the possibility of pulmonary embolism less likely. She also received Lasix. 2. Diabetes mellitus type 2. 3. History of paroxysmal atrial fibrillation. 4. History of hypertension. 5. History of anxiety. 6. Anemia. PLAN: NEUROLOGIC: Continue Effexor and buspirone for anxiety. Try to avoid any sedatives if at all possible. She has morphine for pain. PULMONARY: Continue bronchodilators as well as intravenous corticosteroids. Wean oxygen. Consider CT scan of the chest if she remains stable through the day today. INFECTIOUS DISEASE: Continue Levaquin for 5-7 days. I will order a sputum culture; however, I doubt she will be able to produce any. HEME: Consider lower extremity venous Dopplers. SCDs for DVT prophylaxis. Also, continue Xarelto. CARDIOVASCULAR: Continue Xarelto and amlodipine as well as amiodarone. She may be a little bit volume depleted. Normal saline bolus 250 mL over an hour. RENAL: As above, she may be a little bit dry. Bolus IV fluids. GASTROINTESTINAL: Advance diet. ENDOCRINE: Glycemic consultation. [facility]
--- NOTE | 2016-09-12 13:55 | DIAGNOSTIC IMAGING REPORT ---
ULTRASOUND VENOUS DOPPLER LWR EXT BILA CLINICAL HISTORY: Leg edema COMPARISON STUDY: Thyroid 2012 FINDINGS: Real-time and color flow Doppler imaging were performed. Flow was seen within the femoral, popliteal and calf veins with no intraluminal thrombus demonstrated. The saphenous vein is patent. IMPRESSION: No evidence of lower extremity DVT. Electronically signed by: Jaime Voss M.D. 09/12/2016 1:54 PM Dictated Date/Time: 09/12/2016 1:53 PM
--- NOTE | 2016-09-12 15:51 | Family Medicine Progress Note ---
Progress Note Date of Service September 12, 2016. Subjective Pt evaluation today including: conversation w/ patient, physical exam, chart review, conversation w/ acquisition consultant, review of inpatient medication list Pain: minimal PO Intake: currently not eating Voiding: benedict catheter in place Patient with no acute events overnight. She was weaned off of her Bipap and is currently on nasal cannula with FiO2 of 40. She says that her shortness of breath has improved dramatically. She denies any cough, chest pain, palpitations, wheezing, fevers, night sweats or chills. She also denies any calf tenderness. Additional Comments: Please see Note for ROS Medications Current Inpatient Medications Medications (Trade) Dose Ordered Sig/Buddy Route Start Time Stop Time Status Last Admin Dose Admin Acetaminophen (Tylenol Tab) 650 mg Q4H PRN PO 09/10/16 15:00 10/10/16 14:59 Al Hydrox/Mg Hydrox/Simethicone (Maalox Max Susp) 15 ml Q4H PRN PO 09/10/16 15:00 10/10/16 14:59 Magnesium Hydroxide (Milk Of Magnesia Susp) 30 ml Q12H PRN PO 09/10/16 15:00 10/10/16 14:59 Ondansetron HCl (Zofran Inj) 4 mg Q6H PRN IV 09/10/16 15:00 10/10/16 14:59 Polyethylene (Miralax Powder Packet) 17 gm DAILY PRN PO 09/10/16 15:00 10/10/16 14:59 Ipratropium [place] (Atrovent 0.02% 0.5MG/2.5ML Neb) 0.5 mg Q8R INH 09/10/16 16:00 10/10/16 15:59 09/12/16 14:20 0.5 MG Levalbuterol (Xopenex 1.25MG/ 0.5ML Neb) 1.25 mg Q6R INH 09/10/16 15:00 10/10/16 14:59 09/12/16 14:20 1.25 MG Amiodarone HCl (Cordarone Tab) 100 mg DAILY PO 09/11/16 09:00 10/11/16 08:59 09/12/16 08:24 100 MG Atorvastatin Calcium (Lipitor Tab) 80 mg DAILY PO 09/11/16 09:00 10/11/16 08:59 09/12/16 08:27 80 MG Buspirone HCl (BusPAR TAB) 15 mg TID PO 09/10/16 21:00 10/10/16 20:59 09/12/16 14:30 15 MG Folic Acid (Folvite Tab) 1 mg DAILY PO 09/11/16 09:00 10/11/16 08:59 09/12/16 08:26 1 MG Lactobacillus Acidophilus (Floranex Tab) 1 tab TIDM PO 09/10/16 18:00 10/10/16 17:59 09/12/16 11:20 1 TAB Pantoprazole Sodium (Protonix Tab) 40 mg DAILY PO 09/11/16 09:00 10/11/16 08:59 09/12/16 08:29 40 MG Rivaroxaban (Xarelto Tab) 20 mg QDD PO 09/11/16 16:30 10/11/16 16:44 Trazodone HCl (Desyrel Tab) 200 mg HS PO 09/10/16 21:00 10/10/16 20:59 09/10/16 21:29 200 MG Venlafaxine HCl (effeXOR EXTENDED REL CAP) 75 mg DAILY PO 09/11/16 09:00 10/11/16 08:59 09/12/16 08:25 75 MG Venlafaxine HCl (effeXOR EXTENDED REL CAP) 150 mg DAILY PO 09/11/16 09:00 10/11/16 08:59 09/12/16 08:25 150 MG Cholecalciferol (Vitamin D Tab) 2,000 inter.unit DAILY PO 09/11/16 09:00 10/11/16 08:59 09/12/16 08:29 2,000 INTER.UNIT Ferrous Sulfate 325 mg 325 mg BIDM PO 09/10/16 18:00 10/10/16 17:59 09/12/16 08:21 325 MG Levofloxacin 750 mg/Prmx 150 ml @ 100 mls/hr Q24H IV 09/10/16 18:00 09/17/16 17:59 09/11/16 18:43 100 MLS/HR Methylprednisolone Sodium Succinate/ Syringe (Solu-Medrol IV/ Syringe) 0.96 ml @ 1.5 mls/min Q8H IV 09/10/16 20:00 10/10/16 19:59 5/1/17 11:24 1.5 MLS/MIN Levalbuterol (Xopenex 1.25MG/ 0.5ML Neb) 1.25 mg Q2H PRN INH 09/10/16 15:30 10/10/16 15:29 Ipratropium [place] (Atrovent 0.02% 0.5MG/2.5ML Neb) 0.5 mg Q2H PRN INH 09/10/16 15:30 10/10/16 15:29 Insulin Aspart (novoLOG ASPART) SLIDING SCALE If C... ACHS SC 09/10/16 21:00 10/10/16 20:59 09/11/16 22:16 1 UNITS Glucose (Glucose 40% Gel) 15-30 GRAMS 15 GRAMS... UD PRN PO 09/10/16 15:30 10/10/16 15:29 Glucose (Glucose Chew Tab) 4-8 Tablets 4 Tabl... UD PRN PO 09/10/16 15:30 10/10/16 15:29 Dextrose (Dextrose 50% 50ML Syringe) 25-50ML OF 50% DW IV FOR... UD PRN IV 09/10/16 15:30 10/10/16 15:29 Glucagon (Glucagon Inj) 1 mg UD PRN SQ 09/10/16 15:30 10/10/16 15:29 Amlodipine Besylate 5 mg 5 mg QAM PO 09/11/16 09:00 10/11/16 08:59 09/12/16 08:28 5 MG Dexmedetomidine HCl/Sodium Chloride (PreCEDEX INJ/ Nss 50ml) 50 ml @ 0 mls/hr Q0M PRN IV 09/10/16 23:45 09/14/16 23:44 09/10/16 23:54 4 MLS/HR Morphine Sulfate (MoRPHine SULFATE INJ) 2 mg Q4H PRN IV 09/11/16 07:30 09/25/16 07:29 09/12/16 12:46 2 MG Miscellaneous Information (Consult Glycemic Management Pharmacy) 1 ea UD PRN N/A 09/12/16 09:00 10/12/16 08:59 Insulin Glargine (Lantus Solostar Pen) BID SC 09/12/16 21:00 10/12/16 20:59 Docusate Sodium (coLACE CAP) 100 mg BID PO 09/12/16 21:00 10/12/16 20:59 Objective Vital Signs Date Time Temp Pulse Resp B/P Pulse Ox O2 Delivery O2 Flow Rate FiO2 09/12/16 14:20 104 20 92 Nasal Cannula 40 09/12/16 14:00 100 24 95 High Flow Oxygen 35 09/12/16 12:00 102 24 158/92 94 High Flow Oxygen 35 09/12/16 12:00 94 High Flow Oxygen 35.0 35 09/12/16 10:00 115 20 177/69 94 High Flow Oxygen 35 09/12/16 08:00 High Flow Oxygen 09/12/16 08:00 37.0 88 20 136/67 97 High Flow Oxygen 40 168/58 09/12/16 08:00 97 High Flow Oxygen 40 09/12/16 07:20 74 20 99 BiPAP/CPAP 40 09/12/16 06:00 63 117/50 98 BiPAP 40 129/55 09/12/16 05:00 75 118/58 98 BiPAP 40 09/12/16 04:02 96 BiPAP 40 09/12/16 04:00 79 106/61 96 BiPAP 40 124/52 09/12/16 03:00 90 137/74 98 BiPAP 40 09/12/16 02:00 71 121/73 97 BiPAP 40 09/12/16 01:00 73 109/61 98 BiPAP 40 09/12/16 00:25 86 97 40 09/12/16 00:02 96 BiPAP 40 09/12/16 00:00 73 22 116/63 97 110/57 09/11/16 23:00 76 116/59 95 09/11/16 22:00 69 112/49 96 BiPAP 40 130/63 09/11/16 21:00 82 114/66 96 BiPAP 40 09/11/16 20:58 86 20 96 BiPAP/CPAP 40 09/11/16 20:04 96 BiPAP 40 09/11/16 20:00 36.7 82 16 112/55 96 BiPAP 40 144/55 09/11/16 19:10 86 96 40 09/11/16 19:00 82 20 109/59 97 BiPAP 40 09/11/16 16:00 85 22 106/46 97 BiPAP 40 139/58 09/11/16 16:00 98 BiPAP 40 Physical Exam General Appearance: WD/WN, + mild distress, + pertinent finding (patient with nasal cannula in place) Neck: supple, no adenopathy, thyroid normal, no carotid bruits, trachea midline Respiratory/Chest: chest non-tender, lungs clear, + decreased breath sounds Cardiovascular: regular rate, rhythm, no JVD, no murmur, + pertinent finding ( distant heart sounds) Abdomen: normal bowel sounds, non tender, soft Extremities: non-tender, no pedal edema, no calf tenderness, normal capillary refill Neurologic/Psychiatric: alert, normal mood/affect, oriented x 3 Assessment and Plan 76 year old female with COPD exacerbation requiring bipap in the ICU Acute and chronic hypoxic and hypercapneic respiratory failure in setting of COPD exacerbation - off bipap now. - continue high flow O2 COPD exacerbation - continue levaquin for 7 days - continue nebs q6 - IV steroids 60mg Q8 - consider CT scan if she remains stable - CXR this morning showed no acute process - sputum culture ordered Anxiety/Depression - continue home meds - effexor and buspirone T2DM - Sliding scale and Lantus 10 units daily - Last Hba1c 6.1 A fib and HTN and HLD - Xarelto and amiodarone - Continue atorvastatin and amlodipine - Give 250 ml bolus this am Diet - Advance diet as tolerated DVT prophylaxis - Venous doppler done this am that was without DVT - SCD and xarelto FULL CODE Continued [facility] stay due to: ambulation difficulties, multiple IV medications needed, home environment unsafe for pt Reviewed: Pt Seen/Exam by Me History breathing improving denies any other concerns Constitutional: denies: fever Respiratory: negative: cough Cardiovascular: denies chest pain Gastrointestinal/Abdominal: negative: abdominal pain General Appearance: mild distress (respiratory. On high flow O2) Respiratory: respiratory distress (mild), decreased breath sounds Cardiovascular: regular rate, rhythm Gastrointestinal: normal bowel sounds, non tender, soft Neurologic/Psychiatric: alert, oriented x 3 Skin Characteristics: warm/dry Assessment/Plan I have reviewed the medical record and performed a history and physical examination of this patient today. I have discussed the case with Dr. Arellano. The above note reflects my findings, conclusions, and recommendations.
[2016-09-12] MEDS: RIVAROXABAN 10 MG TAB PO SCH (16:33)
[2016-09-12] MEDS: LEVOFLOXACIN / D5W 750 MG in PREMIXED IN D5W 150 ML IV SCH (16:34)
[2016-09-12] MEDS: INSULIN GLARGINE SOLOSTAR 100 UNITS/ML 3 ML PEN SC SCH (19:52)
[2016-09-12] MEDS: DOCUSATE SODIUM 100 MG CAP PO SCH (19:53)
[2016-09-12] MEDS: TRAZODONE HCL 100 MG TAB PO SCH (19:54)
[2016-09-13] VITALS (16 sets, daily range): BP systolic 138–171; BP diastolic 67–89; PULSE 86–119; TEMP 36.6–36.9; O2SAT 90–97
[2016-09-13] MEDS: LEVALBUTEROL 1.25MG/0.5ML NEB INH SCH ×4 (01:27→19:27)
[2016-09-13] MEDS: IPRATROPIUM BROMIDE NEB SOLN 0.02% 2.5 ML VIAL INH SCH ×4 (01:27→19:27)
[2016-09-13] MEDS: METHYLPREDNISOLONE IV 60 MG in SYRINGE 0 ML IV SCH (04:17)
[2016-09-13 05:20] LABS: BASO % 0.1 %; BASO ABS # 0.01 K/uL (0-0.2); HEMATOCRIT 29.2 % (37-47); IG% 0.4 %; LYMPH % 7.3 %; LYMPH ABS # 0.53 K/uL (1.2-3.4); MEAN CELL VOLUME 96.7 fL (80-100); MEAN CORPUSCULAR HEMOGLOBIN 29.1 pg (25-34); MEAN CORPUSCULAR HGB CONC 30.1 g/dl (32-36); MEAN PLATELET VOLUME 10.5 fL (7.4-10.4); MONO % 4.5 %; NEUT % 87.7 %; PLATELET COUNT 222 K/uL (130-400); RED BLOOD COUNT 3.02 M/uL (4.2-5.4); WHITE BLOOD COUNT 7.26 K/uL (4.8-10.8)
[2016-09-13 05:49] LABS: COMPLETE YES; OVALOCYTES 1+; POLYCHROMASIA 1+; TEAR DROP CELLS OCCASIONAL
[2016-09-13 05:53] LABS: BUN/CREATININE RATIO 37.8 (10-20); CREATININE 0.78 mg/dl (0.60-1.20); MAGNESIUM 2.5 mg/dl (1.8-2.4); PHOSPHORUS 2.9 mg/dl (2.5-4.9)
--- NOTE | 2016-09-13 06:58 | DIAGNOSTIC IMAGING REPORT ---
CHEST ONE VIEW PORTABLE CLINICAL HISTORY: COPD SHORTNESS OF BREATH. HYPOXEMIA. COMPARISON STUDY: 09/12/2016 FINDINGS: The cardiac and mediastinal contours are normal. There is no evidence of focal pulmonary consolidation. There is no evidence of failure. No pleural effusions are visualized.[ IMPRESSION: No active disease in the chest. Electronically signed by: Jaime Voss M.D. 09/13/2016 6:57 AM Dictated Date/Time: 09/13/2016 6:56 AM
[2016-09-13] MEDS: INSULIN ASPART 100 UNITS/ML 3 ML PEN SC SCH ×4 (07:38→20:02)
[2016-09-13] MEDS: DOCUSATE SODIUM 100 MG CAP PO SCH ×2 (07:39→19:42)
[2016-09-13] MEDS: BusPIRone 15 MG TAB PO SCH ×3 (07:39→19:42)
[2016-09-13] MEDS: VENLAFAXINE HCL XR 75 MG CAPXR PO SCH (07:39)
[2016-09-13] MEDS: AMIODARONE 200 MG TAB PO SCH (07:40)
[2016-09-13] MEDS: PANTOprazole SOD 40 MG TAB PO SCH (07:40)
[2016-09-13] MEDS: AMLODIPINE BESYLATE 5 MG TAB PO SCH (07:41)
[2016-09-13] MEDS: ATORVASTATIN 40 MG TAB PO SCH (07:42)
[2016-09-13] MEDS: LACTOBACILLUS ACIDOPHILUS (FLORANEX) TAB PO SCH ×3 (07:42→16:18)
[2016-09-13] MEDS: CHOLECALCIFEROL 1000 INTER.UNIT TAB PO SCH (07:42)
[2016-09-13] MEDS: FERROUS SULFATE 325 MG TAB PO SCH ×2 (07:42→16:17)
[2016-09-13] MEDS: VENLAFAXINE HCL XR 150 MG CAPXR PO SCH (07:43)
[2016-09-13] MEDS: INSULIN GLARGINE SOLOSTAR 100 UNITS/ML 3 ML PEN SC SCH ×2 (07:44→20:03)
--- NOTE | 2016-09-13 08:00 | Critical Care Progress Note ---
Critical Care Progress Note Date of Service September 13, 2016. ICU Day ICU Day Number: [address] Rose Marie Khanna Feels her breathing is improving on a day to day basis although she notes occasional sudden episodes lasting approximately 10 minutes of worsening shortness of breath that improves with nebulizer treatments. She gets anxious during that time but she does not feel the episodes and triggered by anxiety. Denies cough, chest pain, abdominal pain, nausea, vomiting, diarrhea or constipation. She is passing flatus. Objective VITAL SIGNS: were reviewed as below GENERAL:no acute distress, high flow nasal cannula, obese SKIN: Warm dry and pink, peeling of skin on bottom of her feet HEAD: Normocephalic and atraumatic EYES: EOMI (right eye esotropia present), pupils equal OROPHARYNX: non erythematous, clear and moist, on candidiasis NECK: Supple, no adenopathy, no JVD appreciated but difficult to assess due to neck size, trachea midline LUNGS: diminished throughout with expiratory wheeze, absent breath sounds bibasal, no accessory muscle use, no respiratory distress HEART: Regular rate and rhythm, heart sounds 1+2 (quiet), no murmurs ABDOMEN: Soft and nontender, bowel sounds normal EXTREMITIES: Warm and well perfused, no calf tenderness/swelling, no pitting peripheral edema. NEUROLOGICALLY: Awake alert and oriented without gross focal deficit. There is no facial droop. Speech is clear. Vision is grossly normal. Current SOFA Score SOFA Score Response (Comments) Value PaO2/FiO2 (mmHg) < 400 1 Total 1 Previous SOFA Scores 1 on 09/10/2016 Assessment & Plan 76 year old female with COPD on 4L O2 at home presents with acute onset cough with yellow sputum and acute onset acute on chronic hypercapnic hypoxemic respiratory failure. IMPRESSION: 1 ) Acute on chronic hypoxic hypercapnic respiratory failure with compensated respiratory acidosis. 2 ) COPD exacerbation 3 ) Diabetes mellitus type 2. 4 ) Anemia 5 ) History of paroxysmal atrial fibrillation. 6 ) History of GI bleed 6 ) Hypertension 7 ) Anxiety PLAN: NEUROLOGIC: Continue venlafaxine and buspirone for anxiety. Trazodone for insomnia. RASS 1: Avoid sedative medications as possible Morphine PRN for pain (currently denies any pain) CARDIOVASCULAR: Paroxysmal atrial fibrillation: continue amiodarone for rhythm control, rivaroxaban for stroke prophylaxis. Hypertension: Increase amlodipine to 10 mg daily. PULMONARY: Continue lovenox and ipratropium nebs Q6H Wean O2 to nasal cannula; aim sats 90-92% due to CO2 retention. CT chest as remains unwell and hypoxic with increasing bicarb despite steroids GASTROINTESTINAL: Diet: T2DM, AHA no BM since admission, usually every 3 days, no symptoms or signs of obstruction. Continue docusate 100mg BID, will add miralax if no BM today. RENAL/ELECTROLYTES: Urine output improved. Continue benedict cath to monitor UO. INFECTIOUS DISEASE: Levaquin day 4, continue for 7 days. Sputum culture pending HEME: Anemia: appears chronically low, continue to monitor, limit blood draws as much as possible ENDOCRINE: Glycemic consultation appreciated, lantus 6 units BID with SS insulin meal coverage and correction Code - discussed today and patient wishes to be for intubation and full resuscitation. She has full capacity to make this decision. VTE/GI Prophylaxis - pantoprazole 40 mg PO daily - xarelto 20 mg daily Disposition - if O2 can be weaned and CT scan unremarkable she may be moved to telemetry later this afternoon. Resident Physician Supervision Note/Production Control Clerk Attending I interviewed and examined the patient. Discussed with Dr. Sheffield and agree with findings and plan as documented in the note. Any exceptions or clarifications are listed here: The patient's care was discussed in detail on multidisciplinary rounds today. I have reviewed the VS, I/O, notes, meds, labs, micro,imaging and other reports. She says she feels a but better today and denies pain. By her RN report, she became very SOB while at CT and patient says she feels a little better now. No BM since admission. My exam is consistent with that documented above. In particular lung sounds are very decreased throughout, especially the bases, now wheezing and better air movement compared to yesterday. Assessment and plan as documented above. I think Bipap, at least intermittently , would help her progress and it concerns me that her serum bicarb is increasing. CT chest not particularly revealing. I will talk to her again about bipap but if she is not able or willing to attempt it, I would not sedate her with precedex in order to facilitate it at this point. Continue to wean O2 and watch mental status. Check ABG if worsening status. Could consider trying acetazolamide but I think she may be a bit dry as is. Encourage PO and continue PT/OT. Steroids weaned today. Documented By: Krista Trotter Consults & Procedures Consultants: None Procedures: Right arterial line: 09/11/2016. Removed: 09/12/16 Data Medications: Current Inpatient Medications Medications (Trade) Dose Ordered Sig/Buddy Route Start Time Stop Time Status Last Admin Dose Admin Acetaminophen (Tylenol Tab) 650 mg Q4H PRN PO 09/10/16 15:00 10/10/16 14:59 Al Hydrox/Mg Hydrox/Simethicone (Maalox Max Susp) 15 ml Q4H PRN PO 09/10/16 15:00 10/10/16 14:59 Magnesium Hydroxide (Milk Of Magnesia Susp) 30 ml Q12H PRN PO 09/10/16 15:00 10/10/16 14:59 Ondansetron HCl (Zofran Inj) 4 mg Q6H PRN IV 09/10/16 15:00 10/10/16 14:59 Polyethylene (Miralax Powder Packet) 17 gm DAILY PRN PO 09/10/16 15:00 10/10/16 14:59 Levalbuterol (Xopenex 1.25MG/ 0.5ML Neb) 1.25 mg Q6R INH 09/10/16 15:00 10/10/16 14:59 09/13/16 07:14 1.25 MG Amiodarone HCl (Cordarone Tab) 100 mg DAILY PO 09/11/16 09:00 10/11/16 08:59 09/13/16 07:40 100 MG Atorvastatin Calcium (Lipitor Tab) 80 mg DAILY PO 09/11/16 09:00 10/11/16 08:59 09/13/16 07:42 80 MG Buspirone HCl (BusPAR TAB) 15 mg TID PO 09/10/16 21:00 10/10/16 20:59 09/13/16 07:39 15 MG Folic Acid (Folvite Tab) 1 mg DAILY PO 09/11/16 09:00 10/11/16 08:59 09/13/16 07:42 1 MG Lactobacillus Acidophilus (Floranex Tab) 1 tab TIDM PO 09/10/16 18:00 10/10/16 17:59 09/13/16 07:42 1 TAB Pantoprazole Sodium (Protonix Tab) 40 mg DAILY PO 09/11/16 09:00 10/11/16 08:59 09/13/16 07:40 40 MG Rivaroxaban (Xarelto Tab) 20 mg QDD PO 09/11/16 16:30 10/11/16 16:44 09/12/16 16:33 20 MG Trazodone HCl (Desyrel Tab) 200 mg HS PO 09/10/16 21:00 10/10/16 20:59 09/12/16 19:54 200 MG Venlafaxine HCl (effeXOR EXTENDED REL CAP) 75 mg DAILY PO 09/11/16 09:00 10/11/16 08:59 09/13/16 07:39 75 MG Venlafaxine HCl (effeXOR EXTENDED REL CAP) 150 mg DAILY PO 09/11/16 09:00 10/11/16 08:59 09/13/16 07:43 150 MG Cholecalciferol (Vitamin D Tab) 2,000 inter.unit DAILY PO 09/11/16 09:00 10/11/16 08:59 09/13/16 07:42 2,000 INTER.UNIT Ferrous Sulfate 325 mg 325 mg BIDM PO 09/10/16 18:00 10/10/16 17:59 09/13/16 07:42 325 MG Levofloxacin 750 mg/Prmx 150 ml @ 100 mls/hr Q24H IV 09/10/16 18:00 09/17/16 17:59 09/12/16 16:34 100 MLS/HR Methylprednisolone Sodium Succinate/ Syringe (Solu-Medrol IV/ Syringe) 0.96 ml @ 1.5 mls/min Q8H IV 09/10/16 20:00 10/10/16 19:59 09/13/16 04:17 1.5 MLS/MIN Levalbuterol (Xopenex 1.25MG/ 0.5ML Neb) 1.25 mg Q2H PRN INH 09/10/16 15:30 10/10/16 15:29 Ipratropium [place] (Atrovent 0.02% 0.5MG/2.5ML Neb) 0.5 mg Q2H PRN INH 09/10/16 15:30 10/10/16 15:29 Insulin Aspart (novoLOG ASPART) SLIDING SCALE If C... ACHS SC 09/10/16 21:00 10/10/16 20:59 09/13/16 07:38 3 UNITS Glucose (Glucose 40% Gel) 15-30 GRAMS 15 GRAMS... UD PRN PO 09/10/16 15:30 10/10/16 15:29 Glucose (Glucose Chew Tab) 4-8 Tablets 4 Tabl... UD PRN PO 09/10/16 15:30 10/10/16 15:29 Dextrose (Dextrose 50% 50ML Syringe) 25-50ML OF 50% DW IV FOR... UD PRN IV 09/10/16 15:30 10/10/16 15:29 Glucagon (Glucagon Inj) 1 mg UD PRN SQ 09/10/16 15:30 10/10/16 15:29 Amlodipine Besylate 5 mg 5 mg QAM PO 09/11/16 09:00 10/11/16 08:59 09/13/16 07:41 5 MG Dexmedetomidine HCl/Sodium Chloride (PreCEDEX INJ/ Nss 50ml) 50 ml @ 0 mls/hr Q0M PRN IV 09/10/16 23:45 09/14/16 23:44 09/10/16 23:54 4 MLS/HR Morphine Sulfate (MoRPHine SULFATE INJ) 2 mg Q4H PRN IV 09/11/16 07:30 09/25/16 07:29 09/12/16 22:15 2 MG Miscellaneous Information (Consult Glycemic Management Pharmacy) 1 ea UD PRN N/A 09/12/16 09:00 10/12/16 08:59 Insulin Glargine (Lantus Solostar Pen) BID SC 09/12/16 21:00 10/12/16 20:59 09/13/16 07:44 6 UNIT Docusate Sodium (coLACE CAP) 100 mg BID PO 09/12/16 21:00 10/12/16 20:59 09/13/16 07:39 100 MG Ipratropium [place] (Atrovent 0.02% 0.5MG/2.5ML Neb) 0.5 mg Q6R INH 09/13/16 15:00 10/13/16 14:59 I & O: 24-Hour Column 09/13/16 07:59 Intake Total 1370 ml Output Total 1950 ml Balance -580 ml Vital Signs: Date Time Temp Pulse Resp B/P Pulse Ox O2 Delivery O2 Flow Rate FiO2 09/13/16 07:15 95 18 94 Nasal Cannula 35.0 40 09/13/16 06:12 91 20 168/77 95 High Flow Oxygen 35.0 40 09/13/16 04:00 36.6 86 18 145/75 96 High Flow Oxygen 35.0 40 09/13/16 04:00 High Flow Oxygen 35.0 40 09/13/16 02:00 93 20 170/85 94 High Flow Oxygen 35.0 40 09/13/16 01:28 89 18 94 Nasal Cannula 35.0 40 09/13/16 00:00 36.9 88 18 171/89 95 High Flow Oxygen 35.0 40 09/12/16 23:59 High Flow Oxygen 35.0 40 09/12/16 22:00 93 164/92 94 09/12/16 20:00 96 High Flow Oxygen 35.0 35 09/12/16 20:00 37.0 97 20 144/78 96 High Flow Oxygen 35.0 35 09/12/16 19:21 96 20 95 Nasal Cannula 35.0 40 09/12/16 18:00 97 168/88 95 09/12/16 16:00 108 22 157/79 92 High Flow Oxygen 35.0 35 09/12/16 16:00 94 High Flow Oxygen 35.0 35 09/12/16 14:20 104 20 92 Nasal Cannula 40 09/12/16 14:00 100 24 95 High Flow Oxygen 35 09/12/16 12:00 102 24 158/92 94 High Flow Oxygen 35 09/12/16 12:00 94 High Flow Oxygen 35.0 35 09/12/16 10:00 115 20 177/69 94 High Flow Oxygen 35 Laboratory Results: Last 24 Hours Test 09/12/16 11:12 09/12/16 16:26 09/12/16 19:51 09/13/16 05:10 Bedside Glucose 166 mg/dl 173 mg/dl 181 mg/dl White Blood Count 7.26 K/uL Red Blood Count 3.02 M/uL Hemoglobin 8.8 g/dL Hematocrit 29.2 % Mean Corpuscular Volume 96.7 fL Mean Corpuscular Hemoglobin 29.1 pg Mean Corpuscular Hemoglobin Concent 30.1 g/dl Platelet Count 222 K/uL Mean Platelet Volume 10.5 fL Neutrophils (%) (Auto) 87.7 % Lymphocytes (%) (Auto) 7.3 % Monocytes (%) (Auto) 4.5 % Eosinophils (%) (Auto) 0.0 % Basophils (%) (Auto) 0.1 % Neutrophils # (Auto) 6.36 K/uL Lymphocytes # (Auto) 0.53 K/uL Monocytes # (Auto) 0.33 K/uL Eosinophils # (Auto) 0.00 K/uL Basophils # (Auto) 0.01 K/uL RDW Standard Deviation 53.7 fL RDW Coefficient of Variation 15.2 % Immature Granulocyte % (Auto) 0.4 % Immature Granulocyte # (Auto) 0.03 K/uL Polychromasia 1+ Tear Drop Cells OCCASIONAL Ovalocytes 1+ Sodium Level 143 mmol/L Potassium Level 4.0 mmol/L Chloride Level 101 mmol/L Carbon Dioxide Level 40 mmol/L Anion Gap 2.0 mmol/L Blood Urea Nitrogen 30 mg/dl Creatinine 0.78 mg/dl Est Creatinine Clear Calc Drug Dose 71.5 ml/min Estimated GFR () 86.8 Estimated GFR (Non- 74.9 BUN/Creatinine Ratio 37.8 Random Glucose 156 mg/dl Calcium Level 9.0 mg/dl Phosphorus Level 2.9 mg/dl Magnesium Level 2.5 mg/dl Test 09/13/16 06:31 Bedside Glucose 168 mg/dl
[2016-09-13] MEDS ORDERED: AMLODIPINE BESYLATE 5 MG TAB PO ONE (08:45)
--- NOTE | 2016-09-13 08:52 | Pharmacy Progress Note ---
Glycemic Control: Progress Nt Date of Service September 13, 2016. Scope Glycemic Pharmacist consulted for glycemic control and to write orders per [facility] inpatient glycemic control protocol. Objective Accuchecks BSG (last 24hrs): Test 09/12/16 11:12 09/12/16 16:26 09/12/16 19:51 09/13/16 05:10 Bedside Glucose 166 mg/dl (70-90) 173 mg/dl (70-90) 181 mg/dl (70-90) Random Glucose 156 mg/dl (70-99) Test 09/13/16 06:31 Bedside Glucose 168 mg/dl (70-90) Laboratory Data (last 24hrs) Test 09/13/16 05:10 Anion Gap 2.0 mmol/L BUN/Creatinine Ratio 37.8 Blood Urea Nitrogen 30 mg/dl Creatinine 0.78 mg/dl Potassium Level 4.0 mmol/L Sodium Level 143 mmol/L White Blood Count 7.26 K/uL Red Blood Count 3.02 M/uL Hemoglobin 8.8 g/dL Hematocrit 29.2 % Mean Corpuscular Volume 96.7 fL Mean Corpuscular Hemoglobin 29.1 pg Mean Corpuscular Hemoglobin Concent 30.1 g/dl Platelet Count 222 K/uL Mean Platelet Volume 10.5 fL Neutrophils (%) (Auto) 87.7 % Lymphocytes (%) (Auto) 7.3 % Monocytes (%) (Auto) 4.5 % Eosinophils (%) (Auto) 0.0 % Basophils (%) (Auto) 0.1 % Neutrophils # (Auto) 6.36 K/uL Lymphocytes # (Auto) 0.53 K/uL Monocytes # (Auto) 0.33 K/uL Eosinophils # (Auto) 0.00 K/uL Basophils # (Auto) 0.01 K/uL HbA1c: Test 09/11/16 05:47 Hemoglobin A1c 5.5 % (4.5-5.6) Recent Pertinent Medications Outpatient Anti-diabetic Regimen: * No diabetes medications (but on prednisone 40 mg po BIDM) * A1c = 5.5 % 09/11/16 The patient is currently receiving: * Basal insulin: Lantus 6 units SC BID (hold for BSG < 120 mg/dL or steroids not administered) * Correctional Insulin: Novolog Correction per scale ACHS Goal Range: Low 140 mg/dL - High 180 mg/dL Correction Factor: 35 mg/dL/unit * Prandial insulin: 1 unit insulin for every 13 g CHO consumed Risk Factors for Insulin Resistance: * Steroids: Methylprednisolone 60 mg IV q8h tapering to 40 mg IV q8h today per ICU rounds * Infection: COPD exacerbation, on levofloxacin IV * Diet: T2DM/AHA (minimal po intake) Assessment & Plan ASSESSMENT: * ADA & AACE recommend a goal blood sugar range 140-180 mg/dl for the majority of critically ill & non-critically ill patients. However, more stringent targets may be selected in individual cases. 09/12/16 * 76 yo F non-diabetic patient (per HbA1c) with steroid-induced hyperglycemia. BSG's ranging 161-195 mg/dL over the last 24 hours * Patient was ordered a diet for the first couple days of her admission, but had minimal po intake during that time per RN. Current diet order is NPO but may advance diet today per ICU rounds * Do not anticipate patient will require basal insulin on discharge, therefore no benefit to once-daily administration and will transition to BID dosing to make adjustments as steroids are tapered easier. * Will add in CHO ratio per calculator dosed between weight/stress of 1-2 09/13/16 * BSG's ranging 163-181 mg/dL over the last 24 hours. * Steroids tapering slightly today. AM Lantus already administered. Patient only received 1 unit Novolog as correctional insulin yesterday. Will decrease Lantus starting this PM and increase the BSG at which to hold. * Patient received Novolog carb coverage this AM and BSG's decreased slightly from 168 to 130 mg/dL. * This is below goal for an ICU patient * Steroids also being tapered (and their effect is most pronounced w post- prandial BSG's) * Will loosen CHO ratio PLAN FOR INPATIENT GLYCEMIC CONTROL: * Decrease basal insulin with LANTUS BID based on BSG * Hold for BSG < 140 mg/dL *or* steroids not administered * 4 units for BSG 140 mg/dL or greater *and* steroids administered * Correctional Insulin with NOVOLOG per scale ACHS or Q6hrs while NPO * Goal Range: Low 140 mg/dL - High 180 mg/dL * Correction Factor: 35 mg/dL/unit * Loosen Nutritional / Prandial insulin per carb ratio of 1 unit per 15 grams CHO consumed * Please note that the plan above was derived based on current level of insulin resistance and hospital stress. These recommendations are appropriate for inpatient admission only. Plan of care upon discharge will need to be reassessed to avoid potential outpatient hypo/hyperglycemia. Thank you.
--- NOTE | 2016-09-13 09:51 | DIAGNOSTIC IMAGING REPORT ---
CT OF THE CHEST WITHOUT IV CONTRAST CLINICAL HISTORY: COPD. Acute on chronic hypoxic hypercapnic respiratory failure WHEEZING COMPARISON STUDY: 08/02/2015, chest x-ray dated 09-28 CT DOSE: 960.62 mGy.cm TECHNIQUE: CT of the thorax was performed from the thoracic inlet to the lung bases. Images are reviewed in the axial, sagittal, and coronal planes. IV contrast was not administered for this examination. FINDINGS: Thyroid: Imaged portions of the thyroid gland are normal in appearance. Thoracic aorta: The thoracic aorta is normal in course and caliber, noting standard 3 vessel arch anatomy. Heart: The heart is normal in size. There are coronary artery calcifications present. Lungs and pleural spaces: No pleural effusions are visualized. There is no focal pulmonary consolidation. There is mild respiratory motion artifact. Underlying emphysema is suspected. Mediastinum: There is no mediastinal lymphadenopathy. Stacy: There is no evidence of pathologic hilar adenopathy given the limitations of a noncontrast study. Axilla: Clear. Upper abdomen: There is bilateral nephrolithiasis. Skeletal structures: There are no lytic or blastic osseous lesions. IMPRESSION: 1. No evidence of pathologic adenopathy 2. No evidence of focal pulmonary consolidation 3. No pleural effusions 4. Bilateral nephrolithiasis Electronically signed by: Jaime Voss M.D. 09/13/2016 9:49 AM Dictated Date/Time: 09/13/2016 9:45 AM
[2016-09-13] MEDS: IPRATROPIUM BROMIDE NEB SOLN 0.02% 2.5 ML VIAL INH PRN (10:00)
[2016-09-13] MEDS: LEVALBUTEROL 1.25MG/0.5ML NEB INH PRN (10:00)
[2016-09-13] MEDS: EUCERIN CR 120 GM JAR EXT SCH ×2 (10:00→19:51)
[2016-09-13 10:59] LABS: INFLUENZA A PCR Neg for Influ A (NEG); INFLUENZA B PCR Neg for Influ B (NEG)
[2016-09-13] MEDS: METHYLPREDNISOLONE IV 40 MG in SYRINGE 0 ML IV SCH ×2 (11:30→19:42)
[2016-09-13] MEDS ORDERED: TIOTROPIUM BROMIDE 5 PUFF/90 MCG INH INH ONE (12:00)
--- NOTE | 2016-09-13 13:43 | Family Medicine Progress Note ---
Progress Note Date of Service September 13, 2016. Subjective Pt evaluation today including: conversation w/ patient, physical exam, chart review, lab review, conversation w/ warehouse consultant, review of inpatient medication list Pain: none PO Intake: moderate Voiding: benedict catheter in place Patient with no acute events overnight Patient is still feeling short of breath at rest; however she has come down off high flow oxygen and is now on O2 via nasal cannula. She has had short bursts of shortness of breath which last approximately 10 minutes in duration. She then gets treated with nebs and she feels better. She is making urine; however she has not had a bowel movement in 2-3 days. She denies any chest pain, palpitations, fever, night sweats, chills, diarrhea or vomiting Additional Comments: Please see note for ROS Medications Current Inpatient Medications Medications (Trade) Dose Ordered Sig/Buddy Route Start Time Stop Time Status Last Admin Dose Admin Acetaminophen (Tylenol Tab) 650 mg Q4H PRN PO 09/10/16 15:00 10/10/16 14:59 Al Hydrox/Mg Hydrox/Simethicone (Maalox Max Susp) 15 ml Q4H PRN PO 09/10/16 15:00 10/10/16 14:59 Magnesium Hydroxide (Milk Of Magnesia Susp) 30 ml Q12H PRN PO 09/10/16 15:00 10/10/16 14:59 Ondansetron HCl (Zofran Inj) 4 mg Q6H PRN IV 09/10/16 15:00 10/10/16 14:59 Polyethylene (Miralax Powder Packet) 17 gm DAILY PRN PO 09/10/16 15:00 10/10/16 14:59 09/13/16 08:45 17 GM Levalbuterol (Xopenex 1.25MG/ 0.5ML Neb) 1.25 mg Q6R INH 09/10/16 15:00 10/10/16 14:59 09/13/16 07:14 1.25 MG Amiodarone HCl (Cordarone Tab) 100 mg DAILY PO 09/11/16 09:00 10/11/16 08:59 09/13/16 07:40 100 MG Atorvastatin Calcium (Lipitor Tab) 80 mg DAILY PO 09/11/16 09:00 10/11/16 08:59 09/13/16 07:42 80 MG Buspirone HCl (BusPAR TAB) 15 mg TID PO 09/10/16 21:00 10/10/16 20:59 09/13/16 07:39 15 MG Folic Acid (Folvite Tab) 1 mg DAILY PO 09/11/16 09:00 10/11/16 08:59 09/13/16 07:42 1 MG Lactobacillus Acidophilus (Floranex Tab) 1 tab TIDM PO 09/10/16 18:00 10/10/16 17:59 09/13/16 11:30 1 TAB Pantoprazole Sodium (Protonix Tab) 40 mg DAILY PO 09/11/16 09:00 10/11/16 08:59 09/13/16 07:40 40 MG Rivaroxaban (Xarelto Tab) 20 mg QDD PO 09/11/16 16:30 10/11/16 16:44 09/12/16 16:33 20 MG Trazodone HCl (Desyrel Tab) 200 mg HS PO 09/10/16 21:00 10/10/16 20:59 09/12/16 19:54 200 MG Venlafaxine HCl (effeXOR EXTENDED REL CAP) 75 mg DAILY PO 09/11/16 09:00 10/11/16 08:59 09/13/16 07:39 75 MG Venlafaxine HCl (effeXOR EXTENDED REL CAP) 150 mg DAILY PO 09/11/16 09:00 10/11/16 08:59 09/13/16 07:43 150 MG Cholecalciferol (Vitamin D Tab) 2,000 inter.unit DAILY PO 09/11/16 09:00 10/11/16 08:59 09/13/16 07:42 2,000 INTER.UNIT Ferrous Sulfate 325 mg 325 mg BIDM PO 09/10/16 18:00 10/10/16 17:59 09/13/16 07:42 325 MG Levofloxacin/Prmx (Levaquin / D5W/ Premixed D5W) 150 ml @ 100 mls/hr Q24H IV 09/10/16 18:00 09/17/16 17:59 09/12/16 16:34 100 MLS/HR Levalbuterol (Xopenex 1.25MG/ 0.5ML Neb) 1.25 mg Q2H PRN INH 09/10/16 15:30 10/10/16 15:29 09/13/16 10:00 1.25 MG Ipratropium [place] (Atrovent 0.02% 0.5MG/2.5ML Neb) 0.5 mg Q2H PRN INH 09/10/16 15:30 10/10/16 15:29 09/13/16 10:00 0.5 MG Insulin Aspart (novoLOG ASPART) SLIDING SCALE If C... ACHS SC 09/10/16 21:00 10/10/16 20:59 09/13/16 11:33 1 UNITS Glucose (Glucose 40% Gel) 15-30 GRAMS 15 GRAMS... UD PRN PO 09/10/16 15:30 10/10/16 15:29 Glucose (Glucose Chew Tab) 4-8 Tablets 4 Tabl... UD PRN PO 09/10/16 15:30 10/10/16 15:29 Dextrose (Dextrose 50% 50ML Syringe) 25-50ML OF 50% DW IV FOR... UD PRN IV 09/10/16 15:30 10/10/16 15:29 Glucagon 1 mg 1 mg UD PRN SQ 09/10/16 15:30 10/10/16 15:29 Dexmedetomidine HCl/Sodium Chloride (PreCEDEX INJ/ Nss 50ml) 50 ml @ 0 mls/hr Q0M PRN IV 09/10/16 23:45 09/14/16 23:44 09/10/16 23:54 4 MLS/HR Morphine Sulfate (MoRPHine SULFATE INJ) 2 mg Q4H PRN IV 09/11/16 07:30 09/25/16 07:29 09/12/16 22:15 2 MG Miscellaneous Information (Consult Glycemic Management Pharmacy) 1 ea UD PRN N/A 09/12/16 09:00 10/12/16 08:59 Insulin Glargine (Lantus Solostar Pen) BID SC 09/12/16 21:00 10/12/16 20:59 09/13/16 07:44 6 UNIT Docusate Sodium (coLACE CAP) 100 mg BID PO 09/12/16 21:00 10/12/16 20:59 09/13/16 07:39 100 MG Ipratropium [place] (Atrovent 0.02% 0.5MG/2.5ML Neb) 0.5 mg Q6R INH 09/13/16 15:00 10/13/16 14:59 Amlodipine Besylate (Norvasc Tab) 10 mg QAM PO 09/14/16 09:00 10/14/16 08:59 Multi-Ingredient Ointment 1 appln 1 appln BID EXT 09/13/16 10:00 10/13/16 09:59 09/13/16 10:00 1 APPLN Methylprednisolone Sodium Succinate/ Syringe (Solu-Medrol IV/ Syringe) 0.64 ml @ 1.5 mls/min Q8H IV 09/13/16 12:00 10/13/16 11:59 09/13/16 11:30 1.5 MLS/MIN Budesonide/ Formoterol Fumarate (Symbicort 160/ 4.5 Inh) 2 puffs BID INH 09/13/16 21:00 10/13/16 20:59 Tiotropium [place] (Spiriva Handihaler Inhaler) 1 puff QAM INH 09/14/16 09:00 10/14/16 08:59 Objective Vital Signs Date Time Temp Pulse Resp B/P Pulse Ox O2 Delivery O2 Flow Rate FiO2 09/13/16 12:00 94 Nasal Cannula 09/13/16 12:00 36.9 90 20 159/67 94 Nasal Cannula 4.0 09/13/16 10:00 119 20 159/67 90 Nasal Cannula 4.0 09/13/16 10:00 105 18 92 Nasal Cannula 4.0 09/13/16 08:00 94 High Flow Oxygen 40 09/13/16 08:00 100 21 151/76 94 High Flow Oxygen 35.0 40 09/13/16 08:00 High Flow Oxygen 40 09/13/16 07:15 95 18 94 Nasal Cannula 35.0 40 09/13/16 06:12 91 20 168/77 95 High Flow Oxygen 35.0 40 09/13/16 04:00 36.6 86 18 145/75 96 High Flow Oxygen 35.0 40 09/13/16 04:00 High Flow Oxygen 35.0 40 09/13/16 02:00 93 20 170/85 94 High Flow Oxygen 35.0 40 09/13/16 01:28 89 18 94 Nasal Cannula 35.0 40 09/13/16 00:00 36.9 88 18 171/89 95 High Flow Oxygen 35.0 40 09/12/16 23:59 High Flow Oxygen 35.0 40 09/12/16 22:00 93 164/92 94 09/12/16 20:00 96 High Flow Oxygen 35.0 35 09/12/16 20:00 37.0 97 20 144/78 96 High Flow Oxygen 35.0 35 09/12/16 19:21 96 20 95 Nasal Cannula 35.0 40 09/12/16 18:00 97 168/88 95 09/12/16 16:00 108 22 157/79 92 High Flow Oxygen 35.0 35 09/12/16 16:00 94 High Flow Oxygen 35.0 35 09/12/16 14:20 104 20 92 Nasal Cannula 40 09/12/16 14:00 100 24 95 High Flow Oxygen 35 Physical Exam General Appearance: WD/WN, no apparent distress Neck: supple, no JVD, trachea midline Respiratory/Chest: no respiratory distress, no accessory muscle use, + decreased breath sounds (most prominent at the bases), + wheezing (wheezes bilaterally) Cardiovascular: regular rate, rhythm, no edema, no murmur Abdomen: normal bowel sounds, non tender, soft Extremities: normal range of motion, non-tender, no calf tenderness Neurologic/Psychiatric: alert, normal mood/affect, oriented x 3 Laboratory Results Results Past 24 Hours Test 09/12/16 16:26 09/12/16 19:51 09/13/16 00:00 09/13/16 05:10 Range/Units Bedside Glucose 173 181 70-90 mg/dl Influenza Type A (RT-PCR) Neg for Influ A NEG Influenza Type B (RT-PCR) Neg for Influ B NEG White Blood Count 7.26 4.8-10.8 K/uL Red Blood Count 3.02 4.2-5.4 M/uL Hemoglobin 8.8 12.0-16.0 g/dL Hematocrit 29.2 37-47 % Mean Corpuscular Volume 96.7 80-100 fL Mean Corpuscular Hemoglobin 29.1 25-34 pg Mean Corpuscular Hemoglobin Concent 30.1 32-36 g/dl Platelet Count 222 130-400 K/uL Mean Platelet Volume 10.5 7.4-10.4 fL Neutrophils (%) (Auto) 87.7 % Lymphocytes (%) (Auto) 7.3 % Monocytes (%) (Auto) 4.5 % Eosinophils (%) (Auto) 0.0 % Basophils (%) (Auto) 0.1 % Neutrophils # (Auto) 6.36 1.4-6.5 K/uL Lymphocytes # (Auto) 0.53 1.2-3.4 K/uL Monocytes # (Auto) 0.33 0.11-0.59 K/uL Eosinophils # (Auto) 0.00 0-0.5 K/uL Basophils # (Auto) 0.01 0-0.2 K/uL RDW Standard Deviation 53.7 36.4-46.3 fL RDW Coefficient of Variation 15.2 11.5-14.5 % Immature Granulocyte % (Auto) 0.4 % Immature Granulocyte # (Auto) 0.03 0.00-0.02 K/uL Polychromasia 1+ Tear Drop Cells OCCASIONAL Ovalocytes 1+ Sodium Level 143 136-145 mmol/L Potassium Level 4.0 3.5-5.1 mmol/L Chloride Level 101 98-107 mmol/L Carbon Dioxide Level 40 21-32 mmol/L Anion Gap 2.0 3-11 mmol/L Blood Urea Nitrogen 30 7-18 mg/dl Creatinine 0.78 0.60-1.20 mg/dl Est Creatinine Clear Calc Drug Dose 71.5 ml/min Estimated GFR () 86.8 Estimated GFR (Non- 74.9 BUN/Creatinine Ratio 37.8 10-20 Random Glucose 156 70-99 mg/dl Calcium Level 9.0 8.5-10.1 mg/dl Phosphorus Level 2.9 2.5-4.9 mg/dl Magnesium Level 2.5 1.8-2.4 mg/dl Test 09/13/16 06:31 09/13/16 11:15 Range/Units Bedside Glucose 168 130 70-90 mg/dl Microbiology Results 09/13/16 Gram Stain, Received Pending 09/13/16 Sputum Culture, Received Pending Assessment and Plan 76 year old female with COPD exacerbation requiring bipap in the ICU Acute and chronic hypoxic and hypercapneic respiratory failure in setting of COPD exacerbation - off high flow oxygen - continue oxygen via nasal cannula - maintain oxygen between 88-92% COPD exacerbation - continue levaquin for 7 days - continue nebs q6 - IV steroids 40mg Q8 - CT scan unremarkable except for bilateral nephrolithiasis - sputum culture pending Anxiety/Depression - continue home meds - effexor and buspirone T2DM - Sliding scale and Lantus 6 units bid - Last Hba1c 6.1 A fib and HTN and HLD - Xarelto and amiodarone - Continue atorvastatin and amlodipine (increased to 10mg) Diet - Advance diet as tolerated DVT prophylaxis - SCD and xarelto FULL CODE Continued [facility] stay due to: multiple IV medications needed Reviewed: Pt Seen/Exam by Me History breathing continuing to improve Constitutional: denies: fever Respiratory: positive: short of breath (improving) Cardiovascular: denies chest pain General Appearance: mild distress (respiratory) Respiratory: decreased breath sounds, wheezing Cardiovascular: regular rate, rhythm Neurologic/Psychiatric: alert, oriented x 3 Assessment/Plan I have reviewed the medical record and performed a history and physical examination of this patient today. I have discussed the case with Dr. Arellano. The above note reflects my findings, conclusions, and recommendations.
[2016-09-13] MEDS: RIVAROXABAN 10 MG TAB PO SCH (16:18)
[2016-09-13] MEDS: LEVOFLOXACIN / D5W 750 MG in PREMIXED IN D5W 150 ML IV SCH (16:49)
[2016-09-13] MEDS: BUDESONIDE/FORMOTEROL FUMARATE 160/4.5 60 PUFFS/INHALER INH SCH (19:41)
[2016-09-13] MEDS: TRAZODONE HCL 100 MG TAB PO SCH (19:44)
[2016-09-13] MEDS: MoRPHine SULFATE 2 MG/ML CARP IV PRN (19:55)
[2016-09-14] VITALS (21 sets, daily range): BP systolic 119–169; BP diastolic 61–89; PULSE 77–118; TEMP 36.6–37.2; O2SAT 91–98
[2016-09-14] MEDS: MoRPHine SULFATE 2 MG/ML CARP IV PRN (01:09)
[2016-09-14] MEDS: LEVALBUTEROL 1.25MG/0.5ML NEB INH SCH ×3 (01:12→21:08)
[2016-09-14] MEDS: IPRATROPIUM BROMIDE NEB SOLN 0.02% 2.5 ML VIAL INH SCH ×3 (01:12→21:08)
[2016-09-14] MEDS: METHYLPREDNISOLONE IV 40 MG in SYRINGE 0 ML IV SCH (04:00)
[2016-09-14 05:56] LABS: BASO % 0.1 %; BASO ABS # 0.01 K/uL (0-0.2); HEMATOCRIT 29.9 % (37-47); IG% 0.9 %; LYMPH % 9.9 %; LYMPH ABS # 0.67 K/uL (1.2-3.4); MEAN CELL VOLUME 97.1 fL (80-100); MEAN CORPUSCULAR HEMOGLOBIN 28.6 pg (25-34); MEAN CORPUSCULAR HGB CONC 29.4 g/dl (32-36); MEAN PLATELET VOLUME 10.8 fL (7.4-10.4); MONO % 6.7 %; NEUT % 82.4 %; PLATELET COUNT 224 K/uL (130-400); RED BLOOD COUNT 3.08 M/uL (4.2-5.4); WHITE BLOOD COUNT 6.76 K/uL (4.8-10.8)
[2016-09-14 06:21] LABS: COMPLETE YES
[2016-09-14 06:44] LABS: BUN/CREATININE RATIO 34.9 (10-20); CALCIUM 8.9 mg/dl (8.5-10.1); CREATININE 0.75 mg/dl (0.60-1.20); MAGNESIUM 2.7 mg/dl (1.8-2.4); PHOSPHORUS 3.4 mg/dl (2.5-4.9); POTASSIUM 4.8 mmol/L (3.5-5.1)
--- NOTE | 2016-09-14 07:33 | Family Medicine Progress Note ---
Progress Note Date of Service September 14, 2016. Subjective Pt evaluation today including: conversation w/ patient, physical exam, lab review, conversation w/ student union consultant Pain: none PO Intake: good Voiding: benedict catheter in place Patients breathing has improved a lot since yesterday. She says that she feels much better and she feels that she is breathing much better than she was yesterday She denies any fevers, night sweats, chills, chest pain, palpitations, nausea, vomiting or diarrhea She still has a cough and is intermittently able to bring up sputum Additional Comments: please see note for ROS Medications Current Inpatient Medications Medications (Trade) Dose Ordered Sig/Buddy Route Start Time Stop Time Status Last Admin Dose Admin Acetaminophen (Tylenol Tab) 650 mg Q4H PRN PO 09/10/16 15:00 10/10/16 14:59 Al Hydrox/Mg Hydrox/Simethicone (Maalox Max Susp) 15 ml Q4H PRN PO 09/10/16 15:00 10/10/16 14:59 Magnesium Hydroxide (Milk Of Magnesia Susp) 30 ml Q12H PRN PO 09/10/16 15:00 10/10/16 14:59 Ondansetron HCl (Zofran Inj) 4 mg Q6H PRN IV 09/10/16 15:00 10/10/16 14:59 Polyethylene (Miralax Powder Packet) 17 gm DAILY PRN PO 09/10/16 15:00 10/10/16 14:59 09/13/16 08:45 17 GM Levalbuterol (Xopenex 1.25MG/ 0.5ML Neb) 1.25 mg Q6R INH 09/10/16 15:00 10/10/16 14:59 09/14/16 07:00 1.25 MG Amiodarone HCl (Cordarone Tab) 100 mg DAILY PO 09/11/16 09:00 10/11/16 08:59 09/13/16 07:40 100 MG Atorvastatin Calcium (Lipitor Tab) 80 mg DAILY PO 09/11/16 09:00 10/11/16 08:59 09/13/16 07:42 80 MG Buspirone HCl (BusPAR TAB) 15 mg TID PO 09/10/16 21:00 10/10/16 20:59 09/13/16 19:42 15 MG Folic Acid (Folvite Tab) 1 mg DAILY PO 09/11/16 09:00 10/11/16 08:59 09/13/16 07:42 1 MG Lactobacillus Acidophilus (Floranex Tab) 1 tab TIDM PO 09/10/16 18:00 10/10/16 17:59 09/13/16 16:18 1 TAB Pantoprazole Sodium (Protonix Tab) 40 mg DAILY PO 09/11/16 09:00 10/11/16 08:59 09/13/16 07:40 40 MG Rivaroxaban (Xarelto Tab) 20 mg QDD PO 09/11/16 16:30 10/11/16 16:44 09/13/16 16:18 20 MG Trazodone HCl (Desyrel Tab) 200 mg HS PO 09/10/16 21:00 10/10/16 20:59 09/13/16 19:44 200 MG Venlafaxine HCl (effeXOR EXTENDED REL CAP) 75 mg DAILY PO 09/11/16 09:00 10/11/16 08:59 09/13/16 07:39 75 MG Venlafaxine HCl (effeXOR EXTENDED REL CAP) 150 mg DAILY PO 09/11/16 09:00 10/11/16 08:59 09/13/16 07:43 150 MG Cholecalciferol (Vitamin D Tab) 2,000 inter.unit DAILY PO 09/11/16 09:00 10/11/16 08:59 09/13/16 07:42 2,000 INTER.UNIT Ferrous Sulfate 325 mg 325 mg BIDM PO 09/10/16 18:00 10/10/16 17:59 09/13/16 16:17 325 MG Levofloxacin/Prmx (Levaquin / D5W/ Premixed D5W) 150 ml @ 100 mls/hr Q24H IV 09/10/16 18:00 09/17/16 17:59 09/13/16 16:49 100 MLS/HR Levalbuterol (Xopenex 1.25MG/ 0.5ML Neb) 1.25 mg Q2H PRN INH 09/10/16 15:30 10/10/16 15:29 09/13/16 10:00 1.25 MG Ipratropium [place] (Atrovent 0.02% 0.5MG/2.5ML Neb) 0.5 mg Q2H PRN INH 09/10/16 15:30 10/10/16 15:29 09/13/16 10:00 0.5 MG Insulin Aspart (novoLOG ASPART) SLIDING SCALE If C... ACHS SC 09/10/16 21:00 10/10/16 20:59 09/13/16 16:51 4 UNITS Glucose (Glucose 40% Gel) 15-30 GRAMS 15 GRAMS... UD PRN PO 09/10/16 15:30 10/10/16 15:29 Glucose (Glucose Chew Tab) 4-8 Tablets 4 Tabl... UD PRN PO 09/10/16 15:30 10/10/16 15:29 Dextrose (Dextrose 50% 50ML Syringe) 25-50ML OF 50% DW IV FOR... UD PRN IV 09/10/16 15:30 10/10/16 15:29 Glucagon 1 mg 1 mg UD PRN SQ 09/10/16 15:30 10/10/16 15:29 Dexmedetomidine HCl/Sodium Chloride (PreCEDEX INJ/ Nss 50ml) 50 ml @ 0 mls/hr Q0M PRN IV 09/10/16 23:45 09/14/16 23:44 09/10/16 23:54 4 MLS/HR Morphine Sulfate (MoRPHine SULFATE INJ) 2 mg Q4H PRN IV 09/11/16 07:30 09/25/16 07:29 09/14/16 01:09 2 MG Miscellaneous Information (Consult Glycemic Management Pharmacy) 1 ea UD PRN N/A 09/12/16 09:00 10/12/16 08:59 Insulin Glargine (Lantus Solostar Pen) BID SC 09/12/16 21:00 10/12/16 20:59 09/13/16 20:03 4 UNIT Docusate Sodium (coLACE CAP) 100 mg BID PO 09/12/16 21:00 10/12/16 20:59 09/13/16 19:42 100 MG Ipratropium [place] (Atrovent 0.02% 0.5MG/2.5ML Neb) 0.5 mg Q6R INH 09/13/16 15:00 10/13/16 14:59 09/14/16 07:00 0.5 MG Amlodipine Besylate (Norvasc Tab) 10 mg QAM PO 09/14/16 09:00 10/14/16 08:59 Multi-Ingredient Ointment 1 appln 1 appln BID EXT 09/13/16 10:00 10/13/16 09:59 09/13/16 19:51 1 APPLN Methylprednisolone Sodium Succinate/ Syringe (Solu-Medrol IV/ Syringe) 0.64 ml @ 1.5 mls/min Q8H IV 09/13/16 12:00 10/13/16 11:59 09/14/16 04:00 1.5 MLS/MIN Budesonide/ Formoterol Fumarate (Symbicort 160/ 4.5 Inh) 2 puffs BID INH 09/13/16 21:00 10/13/16 20:59 09/13/16 19:41 2 PUFFS Tiotropium [place] (Spiriva Handihaler Inhaler) 1 puff QAM INH 09/14/16 09:00 10/14/16 08:59 Objective Vital Signs Date Time Temp Pulse Resp B/P Pulse Ox O2 Delivery O2 Flow Rate FiO2 09/14/16 07:01 77 18 94 Nasal Cannula 4.0 09/14/16 06:00 118 23 119/77 97 Nasal Cannula 09/14/16 04:00 36.9 90 22 143/81 98 Nasal Cannula 4.0 09/14/16 04:00 Nasal Cannula 4.0 09/14/16 02:00 94 18 154/80 97 09/14/16 01:12 109 18 93 Nasal Cannula 4.0 09/14/16 00:00 Nasal Cannula 4.0 09/14/16 00:00 36.9 110 20 140/73 97 Nasal Cannula 4.0 09/13/16 22:00 92 20 148/71 97 Nasal Cannula 4.0 09/13/16 20:00 Nasal Cannula 4.0 09/13/16 20:00 36.8 105 30 171/89 93 Nasal Cannula 4.0 09/13/16 19:27 102 20 97 Nasal Cannula 5.0 09/13/16 18:06 110 20 161/80 93 Nasal Cannula 3.0 09/13/16 16:00 36.8 103 20 138/74 94 Nasal Cannula 3.0 09/13/16 16:00 94 Nasal Cannula 09/13/16 14:42 100 18 94 Nasal Cannula 3.0 09/13/16 14:00 108 22 156/70 95 Nasal Cannula 3.0 09/13/16 12:00 94 Nasal Cannula 09/13/16 12:00 36.9 90 20 159/67 94 Nasal Cannula 4.0 09/13/16 10:00 119 20 159/67 90 Nasal Cannula 4.0 09/13/16 10:00 105 18 92 Nasal Cannula 4.0 09/13/16 08:00 94 High Flow Oxygen 40 09/13/16 08:00 100 21 151/76 94 High Flow Oxygen 35.0 40 09/13/16 08:00 High Flow Oxygen 40 Physical Exam General Appearance: WD/WN, no apparent distress Neck: no JVD, no carotid bruits, trachea midline Respiratory/Chest: no respiratory distress, no accessory muscle use, + decreased breath sounds, + wheezing (scattered wheezes throughout both lung allen) Cardiovascular: regular rate, rhythm, no edema, no murmur Abdomen: normal bowel sounds, non tender, soft Neurologic/Psychiatric: alert, normal mood/affect, oriented x 3 Laboratory Results Results Past 24 Hours Test 09/13/16 11:15 09/13/16 16:17 09/13/16 20:02 09/14/16 05:35 Range/Units Bedside Glucose 130 190 154 70-90 mg/dl White Blood Count 6.76 4.8-10.8 K/uL Red Blood Count 3.08 4.2-5.4 M/uL Hemoglobin 8.8 12.0-16.0 g/dL Hematocrit 29.9 37-47 % Mean Corpuscular Volume 97.1 80-100 fL Mean Corpuscular Hemoglobin 28.6 25-34 pg Mean Corpuscular Hemoglobin Concent 29.4 32-36 g/dl Platelet Count 224 130-400 K/uL Mean Platelet Volume 10.8 7.4-10.4 fL Neutrophils (%) (Auto) 82.4 % Lymphocytes (%) (Auto) 9.9 % Monocytes (%) (Auto) 6.7 % Eosinophils (%) (Auto) 0.0 % Basophils (%) (Auto) 0.1 % Neutrophils # (Auto) 5.57 1.4-6.5 K/uL Lymphocytes # (Auto) 0.67 1.2-3.4 K/uL Monocytes # (Auto) 0.45 0.11-0.59 K/uL Eosinophils # (Auto) 0.00 0-0.5 K/uL Basophils # (Auto) 0.01 0-0.2 K/uL RDW Standard Deviation 54.0 36.4-46.3 fL RDW Coefficient of Variation 15.3 11.5-14.5 % Immature Granulocyte % (Auto) 0.9 % Immature Granulocyte # (Auto) 0.06 0.00-0.02 K/uL Nucleated RBC Absolute Count (auto) 0.04 0-0 K/uL Nucleated Red Blood Cells % 0.6 % Red Blood Cell Morphology Unremarkable Sodium Level 145 136-145 mmol/L Potassium Level 4.8 3.5-5.1 mmol/L Chloride Level 102 98-107 mmol/L Carbon Dioxide Level 42 21-32 mmol/L Anion Gap 1.0 3-11 mmol/L Blood Urea Nitrogen 26 7-18 mg/dl Creatinine 0.75 0.60-1.20 mg/dl Est Creatinine Clear Calc Drug Dose 73.4 ml/min Estimated GFR () 91.0 Estimated GFR (Non- 78.5 BUN/Creatinine Ratio 34.9 10-20 Random Glucose 179 70-99 mg/dl Calcium Level 8.9 8.5-10.1 mg/dl Phosphorus Level 3.4 2.5-4.9 mg/dl Magnesium Level 2.7 1.8-2.4 mg/dl Assessment and Plan 76 year old female with COPD exacerbation requiring bipap in the ICU. Patient is improving clinically and will be able to be brought up to the med/ [facility] later today. Her bicarb is still a bit high which indicates that she is probably on too much oxygen at home. Acute and chronic hypoxic and hypercapneic respiratory failure in setting of COPD exacerbation - oxygenating well on nasal cannula - maintain oxygen between 88-92% COPD exacerbation - continue levaquin for 7 days - continue nebs q6 - IV steroids 40mg Q8 - CT scan unremarkable except for bilateral nephrolithiasis - sputum culture showed contaminant Anxiety/Depression - continue home meds - effexor and buspirone T2DM - Sliding scale and Lantus 6 units bid - Last Hba1c 6.1 PA fib and HTN and HLD - Xarelto and amiodarone - Continue atorvastatin and amlodipine Diet - Advance diet as tolerated DVT prophylaxis - SCD and xarelto FULL CODE Transfer to PCU Continued [facility] stay due to: multiple IV medications needed Reviewed: Pt Seen/Exam by Me History breathing much improved Constitutional: denies: fever Cardiovascular: denies chest pain Gastrointestinal/Abdominal: negative: abdominal pain General Appearance: WD/WN Respiratory: decreased breath sounds Cardiovascular: regular rate, rhythm Gastrointestinal: soft Neurologic/Psychiatric: alert, oriented x 3 Assessment/Plan I have reviewed the medical record and performed a history and physical examination of this patient today. I have discussed the case with Dr. Arellano. The above note reflects my findings, conclusions, and recommendations.
[2016-09-14] MEDS: ATORVASTATIN 40 MG TAB PO SCH (08:57)
[2016-09-14] MEDS: AMLODIPINE BESYLATE 5 MG TAB PO SCH (08:57)
[2016-09-14] MEDS: VENLAFAXINE HCL XR 150 MG CAPXR PO SCH (08:58)
[2016-09-14] MEDS: DOCUSATE SODIUM 100 MG CAP PO SCH ×2 (08:58→20:35)
[2016-09-14] MEDS: CHOLECALCIFEROL 1000 INTER.UNIT TAB PO SCH (08:58)
[2016-09-14] MEDS: TIOTROPIUM BROMIDE 5 PUFF/90 MCG INH INH SCH (08:58)
[2016-09-14] MEDS: BusPIRone 15 MG TAB PO SCH ×3 (08:58→20:35)
[2016-09-14] MEDS: LACTOBACILLUS ACIDOPHILUS (FLORANEX) TAB PO SCH ×3 (08:58→16:29)
[2016-09-14] MEDS: LEVOFLOXACIN 750 MG TAB PO SCH (08:58)
[2016-09-14] MEDS: VENLAFAXINE HCL XR 75 MG CAPXR PO SCH (08:59)
[2016-09-14] MEDS: AMIODARONE 200 MG TAB PO SCH (09:00)
[2016-09-14] MEDS: FERROUS SULFATE 325 MG TAB PO SCH ×2 (09:00→16:29)
[2016-09-14] MEDS: BUDESONIDE/FORMOTEROL FUMARATE 160/4.5 60 PUFFS/INHALER INH SCH ×2 (09:01→20:36)
[2016-09-14] MEDS: EUCERIN CR 120 GM JAR EXT SCH ×2 (09:01→20:37)
[2016-09-14] MEDS: INSULIN GLARGINE SOLOSTAR 100 UNITS/ML 3 ML PEN SC SCH (09:07)
[2016-09-14] MEDS: INSULIN ASPART 100 UNITS/ML 3 ML PEN SC SCH ×4 (09:07→20:45)
[2016-09-14] MEDS: POLYETHYLENE (MIRALAX) 17 GM PACK PO SCH (09:10)
[2016-09-14 09:20] LABS: ISTAT ALLEN TEST Pass; ISTAT ARTERIAL BLOOD GAS HCO3 36 meq/L (19-24); ISTAT ARTERIAL BLOOD GAS PCO2 57 mmHg (35-46); ISTAT ARTERIAL BLOOD GAS PO2 62 mmHg (80-95); ISTAT ARTERIAL BLOOD GAS pH 7.42 (7.35-7.45); ISTAT CARBON DIOXIDE 38 mEq/l (24-31); ISTAT DELIVERY SYSTEM Cannula; ISTAT SITE L Radial
[2016-09-14] MEDS: PANTOprazole SOD 40 MG TAB PO SCH (09:25)
--- NOTE | 2016-09-14 11:04 | Pharmacy Progress Note ---
Glycemic Control: Progress Nt Date of Service September 14, 2016. Scope Glycemic Pharmacist consulted by Dr Trotter on 09/12/16 for glycemic control and to write orders per [facility] inpatient glycemic control protocol. Objective Accuchecks BSG (last 24hrs): Test 09/13/16 11:15 09/13/16 16:17 09/13/16 20:02 09/14/16 05:35 Bedside Glucose 130 mg/dl (70-90) 190 mg/dl (70-90) 154 mg/dl (70-90) Random Glucose 179 mg/dl (70-99) Laboratory Data (last 24hrs) Test 09/14/16 05:35 Anion Gap 1.0 mmol/L BUN/Creatinine Ratio 34.9 Blood Urea Nitrogen 26 mg/dl Creatinine 0.75 mg/dl Potassium Level 4.8 mmol/L Sodium Level 145 mmol/L White Blood Count 6.76 K/uL Red Blood Count 3.08 M/uL Hemoglobin 8.8 g/dL Hematocrit 29.9 % Mean Corpuscular Volume 97.1 fL Mean Corpuscular Hemoglobin 28.6 pg Mean Corpuscular Hemoglobin Concent 29.4 g/dl Platelet Count 224 K/uL Mean Platelet Volume 10.8 fL Neutrophils (%) (Auto) 82.4 % Lymphocytes (%) (Auto) 9.9 % Monocytes (%) (Auto) 6.7 % Eosinophils (%) (Auto) 0.0 % Basophils (%) (Auto) 0.1 % Neutrophils # (Auto) 5.57 K/uL Lymphocytes # (Auto) 0.67 K/uL Monocytes # (Auto) 0.45 K/uL Eosinophils # (Auto) 0.00 K/uL Basophils # (Auto) 0.01 K/uL HbA1c: Test 09/11/16 05:47 Hemoglobin A1c 5.5 %(4.5-5.6) Recent Pertinent Medications The patient is currently receiving: * Basal insulin: * Lantus SQ BID - 0 units if BSG is below 140mg/dL - 4 units if BSG is 140mg/dL or greater * Bolus Insulin: * NovoLog AQ AC/HS - Goal Range: Low 140 mg/dL - High 180 mg/dL - Correction Factor: 35 mg/dL/unit - Carb ratio of 1 unit per 15 grams CHO consumed Risk Factors for Insulin Resistance: * Steroids: Solu-Medrol 40mg IV every 8 hours --> Prednisone 60mg PO daily * Infection: Levofloxacin - day #09/18 therapy * Diet: tolerating well per CHO counts Assessment & Plan ASSESSMENT: * ADA & AACE recommend a goal blood sugar range 140-180 mg/dl for the majority of critically ill & non-critically ill patients. * 76 yo F non-diabetic patient (per HbA1c) with steroid-induced hyperglycemia. * Steroids changed today to once daily prednisone (the patient does take prednisone at home) - Received Solu-Medrol 40mg IV @ 04:00, then Prednisone 60mg PO at 09:00 today --> pre-lunch BSG elevated >250mg/dL * will likely require reduction in daily insulin doses as steroids change * Do not anticipate patient will require insulin on discharge PLAN FOR INPATIENT GLYCEMIC CONTROL: * Basal insulin: * Change Lantus to daily (to match daily prednisone dose) - 0 units for BSG < 140 mg/dL - 4 units for BSG 140-180mg/dL mg/dL - 6 units for BSG above 180mg/dL * Bolus Insulin: * NovoLog SQ AC/HS - Goal Range: 140mg/dL - 180mg/dL per ADA recommendations - Correction Factor: 35 mg/dL/unit - Carb ratio of 1 unit per 15 grams CHO consumed RECOMMENDATIONS FOR DISCHARGE: * Likely, the patient will not require any diabetic medications upon discharge as A1c is below 5.7% * Please note that the plan above was derived based on current level of insulin resistance and hospital stress. These recommendations are appropriate for inpatient admission only. Plan of care upon discharge will need to be reassessed to avoid potential outpatient hypo/hyperglycemia. Thank you.
--- NOTE | 2016-09-14 11:05 | Critical Care Progress Note ---
Critical Care Progress Note Date of Service September 14, 2016. ICU Day ICU Day Number: [address] Rose Marie Khanna Feels her breathing is much better on nasal cannula. Eating well. Having a dry cough but feels something is in her chest that she needs to cough up. Denies chest pain Objective VITAL SIGNS: were reviewed as below GENERAL:no acute distress, high flow nasal cannula, obese SKIN: Warm dry and pink, peeling of skin on bottom of her feet HEAD: Normocephalic and atraumatic EYES: EOMI (right eye esotropia present), pupils equal OROPHARYNX: non erythematous, clear and moist, on candidiasis NECK: Supple, no adenopathy, no JVD appreciated but difficult to assess due to neck size, trachea midline LUNGS: diminished throughout, absent breath sounds bibasal, no longer wheezing, no crackles or rhonchi, no accessory muscle use, no respiratory distress HEART: Regular rate and rhythm, heart sounds 1+2 (quiet), no murmurs ABDOMEN: Soft and nontender, bowel sounds normal EXTREMITIES: Warm and well perfused, no calf tenderness/swelling, no pitting peripheral edema. NEUROLOGICALLY: Awake alert and oriented without gross focal deficit. There is no facial droop. Speech is clear. Vision is grossly normal. Current SOFA Score SOFA Score Response (Comments) Value PaO2/FiO2 (mmHg) < 400 1 Total 1 Previous SOFA Scores 1 on 09/10/2016 Assessment & Plan 76 year old female with COPD on 4L O2 at home presents with acute onset cough with yellow sputum and acute onset acute on chronic hypercapnic hypoxemic respiratory failure. IMPRESSION: 1 ) Acute on chronic hypoxic hypercapnic respiratory failure. 2 ) Respiratory acidosis with metabolic compensation on admission. Now appears mixed resp acidosis and metabolic alkalosis with normal pH 2 ) COPD exacerbation 3 ) Diabetes mellitus type 2 4 ) Anemia 5 ) History of paroxysmal atrial fibrillation. 6 ) History of GI bleed 6 ) Hypertension 7 ) Anxiety PLAN: NEUROLOGIC: Continue venlafaxine and buspirone for anxiety. Trazodone for insomnia. RASS 0: Avoid sedative medications as possible Will reduce her morphine dose from 2-1mg and Q4H->Q6H as using this for anxiety rather than pain. CARDIOVASCULAR: Paroxysmal atrial fibrillation: continue amiodarone for rhythm control, rivaroxaban for stroke prophylaxis. Hypertension: Continue amlodipine 10 mg daily. PULMONARY: Continue Xopenex and ipratropium nebs Q6H Taper steroids to PO dose prednisone 60 mg (taper dependant on clinical course. Restarted her usual Symbicort dose and started new on spiriva 5/2 Wean O2 to nasal cannula; aim sats 90-92% due to CO2 retention. CT chest - no evidence of focal consolidation or pleural effusions. Flutter valve as unable to expectorate sputum GASTROINTESTINAL: Diet: T2DM no BM since admission, usually every 3 days, no symptoms or signs of obstruction. Continue docusate 100mg BID. Add miralax QAM. RENAL/ELECTROLYTES: Urine output improved. Discontinue benedict cath. Increasing Bicarb on BMP. Will get ABG as possibly may need BiPAP if CO2 increasing. INFECTIOUS DISEASE: Levaquin day 5, continue for 7 days, can switch to PO. Sputum culture normal kevin. HEME: Anemia: appears chronically low, continue to monitor, limit blood draws as much as possible. ENDOCRINE: Glycemic consultation appreciated, lantus stopped with SS insulin meal coverage and correction Code Full VTE/GI Prophylaxis - pantoprazole 40 mg PO daily - xarelto 20 mg daily Disposition - Remain in ICU to to increasing bicarb on BMP. Will get ABG and reassess for CO2 retention and need for BiPAP. Resident Physician Supervision Note/Software Design Engineer I interviewed and examined the patient. Discussed with Dr. Sheffield and agree with findings and plan as documented in the note. Impression and Plan are well documented above. Any exceptions or clarifications are listed here: I have also reviewed the VS, I/O, notes, meds, labs, and other reports. She tolerated Bipap 12/6 40% for about an hour and tells me she is coughing more. She is bringing up white sputum as well. She feels her breathing is much better than on admission. Exam is unchanged. Her ABG today is reassuring given her increasing serum bicarb -- pH 7.413/56.8/62/36.3. Would still wean O2 and offer bipap TID for an hour over the next day. She was given a flutter valve today and her benedict is being discontinued. She is now on prednisone and po levaquin. Watch blood pressure - amlodipine was increased yesterday. Wean off morphine which she is using for SOB. I suspect she will need rehab. She is stable for transfer to telemetry. Documented By: Krista Trotter Consults & Procedures Consultants: None Procedures: Right arterial line: 09/11/2016. Removed: 09/12/16 Data Medications: Current Inpatient Medications Medications (Trade) Dose Ordered Sig/Buddy Route Start Time Stop Time Status Last Admin Dose Admin Acetaminophen (Tylenol Tab) 650 mg Q4H PRN PO 09/10/16 15:00 10/10/16 14:59 Al Hydrox/Mg Hydrox/Simethicone (Maalox Max Susp) 15 ml Q4H PRN PO 09/10/16 15:00 10/10/16 14:59 Magnesium Hydroxide (Milk Of Magnesia Susp) 30 ml Q12H PRN PO 09/10/16 15:00 10/10/16 14:59 Ondansetron HCl (Zofran Inj) 4 mg Q6H PRN IV 09/10/16 15:00 10/10/16 14:59 Polyethylene (Miralax Powder Packet) 17 gm DAILY PRN PO 09/10/16 15:00 10/10/16 14:59 09/13/16 08:45 17 GM Levalbuterol (Xopenex 1.25MG/ 0.5ML Neb) 1.25 mg Q6R INH 09/10/16 15:00 10/10/16 14:59 09/14/16 07:00 1.25 MG Amiodarone HCl (Cordarone Tab) 100 mg DAILY PO 09/11/16 09:00 10/11/16 08:59 09/14/16 09:00 100 MG Atorvastatin Calcium (Lipitor Tab) 80 mg DAILY PO 09/11/16 09:00 10/11/16 08:59 09/14/16 08:57 80 MG Buspirone HCl (BusPAR TAB) 15 mg TID PO 09/10/16 21:00 10/10/16 20:59 09/14/16 08:58 15 MG Folic Acid (Folvite Tab) 1 mg DAILY PO 09/11/16 09:00 10/11/16 08:59 09/14/16 09:00 1 MG Lactobacillus Acidophilus (Floranex Tab) 1 tab TIDM PO 09/10/16 18:00 10/10/16 17:59 09/14/16 08:58 1 TAB Pantoprazole Sodium (Protonix Tab) 40 mg DAILY PO 09/11/16 09:00 10/11/16 08:59 09/14/16 09:25 40 MG Rivaroxaban (Xarelto Tab) 20 mg QDD PO 09/11/16 16:30 10/11/16 16:44 09/13/16 16:18 20 MG Trazodone HCl (Desyrel Tab) 200 mg HS PO 09/10/16 21:00 10/10/16 20:59 09/13/16 19:44 200 MG Venlafaxine HCl (effeXOR EXTENDED REL CAP) 75 mg DAILY PO 09/11/16 09:00 10/11/16 08:59 09/14/16 08:59 75 MG Venlafaxine HCl (effeXOR EXTENDED REL CAP) 150 mg DAILY PO 09/11/16 09:00 10/11/16 08:59 09/14/16 08:58 150 MG Cholecalciferol (Vitamin D Tab) 2,000 inter.unit DAILY PO 09/11/16 09:00 10/11/16 08:59 09/14/16 08:58 2,000 INTER.UNIT Ferrous Sulfate (Feosol Tab) 325 mg BIDM PO 09/10/16 18:00 10/10/16 17:59 09/14/16 09:00 325 MG Levalbuterol (Xopenex 1.25MG/ 0.5ML Neb) 1.25 mg Q2H PRN INH 09/10/16 15:30 10/10/16 15:29 09/13/16 10:00 1.25 MG Ipratropium Virgil (Atrovent 0.02% 0.5MG/2.5ML Neb) 0.5 mg Q2H PRN INH 09/10/16 15:30 10/10/16 15:29 09/13/16 10:00 0.5 MG Insulin Aspart (novoLOG ASPART) SLIDING SCALE If C... ACHS SC 09/10/16 21:00 10/10/16 20:59 09/14/16 09:07 5 UNITS Glucose (Glucose 40% Gel) 15-30 GRAMS 15 GRAMS... UD PRN PO 09/10/16 15:30 10/10/16 15:29 Glucose (Glucose Chew Tab) 4-8 Tablets 4 Tabl... UD PRN PO 09/10/16 15:30 10/10/16 15:29 Dextrose (Dextrose 50% 50ML Syringe) 25-50ML OF 50% DW IV FOR... UD PRN IV 09/10/16 15:30 10/10/16 15:29 Glucagon 1 mg 1 mg UD PRN SQ 09/10/16 15:30 10/10/16 15:29 Dexmedetomidine HCl/Sodium Chloride (PreCEDEX INJ/ Nss 50ml) 50 ml @ 0 mls/hr Q0M PRN IV 09/10/16 23:45 09/14/16 23:44 09/10/16 23:54 4 MLS/HR Morphine Sulfate (MoRPHine SULFATE INJ) 2 mg Q4H PRN IV 09/11/16 07:30 09/14/16 11:30 09/14/16 01:09 2 MG Miscellaneous Information (Consult Glycemic Management Pharmacy) 1 ea UD PRN N/A 09/12/16 09:00 10/12/16 08:59 Docusate Sodium (coLACE CAP) 100 mg BID PO 09/12/16 21:00 10/12/16 20:59 09/14/16 08:58 100 MG Ipratropium Virgil (Atrovent 0.02% 0.5MG/2.5ML Neb) 0.5 mg Q6R INH 09/13/16 15:00 10/13/16 14:59 09/14/16 07:00 0.5 MG Amlodipine Besylate (Norvasc Tab) 10 mg QAM PO 09/14/16 09:00 10/14/16 08:59 09/14/16 08:57 10 MG Multi-Ingredient Ointment (Eucerin Unscented Cr) 1 appln BID EXT 09/13/16 10:00 10/13/16 09:59 09/14/16 09:01 1 APPLN Budesonide/ Formoterol Fumarate (Symbicort 160/ 4.5 Inh) 2 puffs BID INH 09/13/16 21:00 10/13/16 20:59 09/14/16 09:01 2 PUFFS Tiotropium Virgil (Spiriva Handihaler Inhaler) 1 puff QAM INH 09/14/16 09:00 10/14/16 08:59 09/14/16 08:58 1 PUFF Morphine Sulfate (MoRPHine SULFATE INJ) 1 mg Q6H PRN IV 09/14/16 13:30 09/28/16 13:29 Levofloxacin (Levaquin Tab) 750 mg DAILY@11 PO 09/14/16 11:00 09/16/16 11:01 09/14/16 08:58 750 MG Prednisone (PredniSONE TAB) 60 mg QAM PO 09/14/16 09:00 10/14/16 08:59 09/14/16 09:25 60 MG Polyethylene (Miralax Powder Packet) 17 gm DAILY PO 09/14/16 09:00 10/14/16 08:59 09/14/16 09:10 17 GM Insulin Glargine (Lantus Solostar Pen) SEE PROTOCOL DAILY SC 09/15/16 09:00 10/15/16 08:59 I & O: 24-Hour Column 09/14/16 08:00 Intake Total 960 ml Output Total 1350 ml Balance -390 ml Vital Signs: Date Time Temp Pulse Resp B/P Pulse Ox O2 Delivery O2 Flow Rate FiO2 09/14/16 09:00 108 18 92 Nasal Cannula 2.0 09/14/16 08:00 Nasal Cannula 4.0 09/14/16 08:00 36.6 118 19 156/67 95 Nasal Cannula 4.0 09/14/16 07:01 77 18 94 Nasal Cannula 4.0 09/14/16 06:00 118 23 119/77 97 Nasal Cannula 09/14/16 04:00 36.9 90 22 143/81 98 Nasal Cannula 4.0 09/14/16 04:00 Nasal Cannula 4.0 09/14/16 02:00 94 18 154/80 97 09/14/16 01:12 109 18 93 Nasal Cannula 4.0 09/14/16 00:00 Nasal Cannula 4.0 09/14/16 00:00 36.9 110 20 140/73 97 Nasal Cannula 4.0 09/13/16 22:00 92 20 148/71 97 Nasal Cannula 4.0 09/13/16 20:00 Nasal Cannula 4.0 09/13/16 20:00 36.8 105 30 171/89 93 Nasal Cannula 4.0 09/13/16 19:27 102 20 97 Nasal Cannula 5.0 09/13/16 18:06 110 20 161/80 93 Nasal Cannula 3.0 09/13/16 16:00 36.8 103 20 138/74 94 Nasal Cannula 3.0 09/13/16 16:00 94 Nasal Cannula 09/13/16 14:42 100 18 94 Nasal Cannula 3.0 09/13/16 14:00 108 22 156/70 95 Nasal Cannula 3.0 09/13/16 12:00 94 Nasal Cannula 09/13/16 12:00 36.9 90 20 159/67 94 Nasal Cannula 4.0 Laboratory Results: Last 24 Hours Test 09/13/16 11:15 09/13/16 16:17 09/13/16 20:02 09/14/16 05:35 Bedside Glucose 130 mg/dl 190 mg/dl 154 mg/dl White Blood Count 6.76 K/uL Red Blood Count 3.08 M/uL Hemoglobin 8.8 g/dL Hematocrit 29.9 % Mean Corpuscular Volume 97.1 fL Mean Corpuscular Hemoglobin 28.6 pg Mean Corpuscular Hemoglobin Concent 29.4 g/dl Platelet Count 224 K/uL Mean Platelet Volume 10.8 fL Neutrophils (%) (Auto) 82.4 % Lymphocytes (%) (Auto) 9.9 % Monocytes (%) (Auto) 6.7 % Eosinophils (%) (Auto) 0.0 % Basophils (%) (Auto) 0.1 % Neutrophils # (Auto) 5.57 K/uL Lymphocytes # (Auto) 0.67 K/uL Monocytes # (Auto) 0.45 K/uL Eosinophils # (Auto) 0.00 K/uL Basophils # (Auto) 0.01 K/uL RDW Standard Deviation 54.0 fL RDW Coefficient of Variation 15.3 % Immature Granulocyte % (Auto) 0.9 % Immature Granulocyte # (Auto) 0.06 K/uL Nucleated RBC Absolute Count (auto) 0.04 K/uL Nucleated Red Blood Cells % 0.6 % Red Blood Cell Morphology Unremarkable Sodium Level 145 mmol/L Potassium Level 4.8 mmol/L Chloride Level 102 mmol/L Carbon Dioxide Level 42 mmol/L Anion Gap 1.0 mmol/L Blood Urea Nitrogen 26 mg/dl Creatinine 0.75 mg/dl Est Creatinine Clear Calc Drug Dose 73.4 ml/min Estimated GFR () 91.0 Estimated GFR (Non- 78.5 BUN/Creatinine Ratio 34.9 Random Glucose 179 mg/dl Calcium Level 8.9 mg/dl Phosphorus Level 3.4 mg/dl Magnesium Level 2.7 mg/dl Test 09/14/16 09:09 Blood Gas Sample Site L Radial Bedside Blood Gas pH (LAB) 7.42 Bedside Blood Gas pCO2 (LAB) 57 mmHg Bedside Blood Gas pO2 (LAB) 62 mmHg Bedside Blood Gas HCO3 (LAB) 36 meq/L Bedside Blood Gas Total CO2 38 mEq/l Bedside Blood Gas Base Excess (LAB) 12.0 meq/L Bedside Blood Gas O2 Saturation 91.0 % Red Test Pass Oxygen Delivery Device Cannula
[2016-09-14] MEDS ORDERED: BISACODYL 10 MG SUPP PR PRN (12:45)
[2016-09-14] MEDS ORDERED: MoRPHine SULFATE 2 MG/ML CARP IV PRN (13:30)
[2016-09-14] MEDS: RIVAROXABAN 10 MG TAB PO SCH (16:29)
[2016-09-14] MEDS: TRAZODONE HCL 100 MG TAB PO SCH (20:35)
[2016-09-15] VITALS (14 sets, daily range): BP systolic 92–149; BP diastolic 46–78; PULSE 86–103; TEMP 36.5–37.2; O2SAT 94–100
[2016-09-15 06:47] LABS: BUN/CREATININE RATIO 33.4 (10-20); CALCIUM 8.3 mg/dl (8.5-10.1); CREATININE 0.74 mg/dl (0.60-1.20)
[2016-09-15] MEDS: LEVALBUTEROL 1.25MG/0.5ML NEB INH SCH ×3 (07:44→19:15)
[2016-09-15] MEDS: IPRATROPIUM BROMIDE NEB SOLN 0.02% 2.5 ML VIAL INH SCH ×3 (07:44→19:15)
--- NOTE | 2016-09-15 08:23 | Family Medicine Progress Note ---
Progress Note Date of Service September 15, 2016. Subjective Pt evaluation today including: conversation w/ patient, physical exam, chart review, lab review, review of inpatient medication list Pain: minimal PO Intake: good Voiding: no voiding problems Patient with no acute events overnight She was moved from the ICU to the floors yesterday afternoon She says that she is feeling much better and is feeling less short of breath She has been able to ambulate to the toilet and back without any difficulty She said that she tried using the bipap overnight, but is unsure as to whether or not it helped She lives with her daughter and says that her daughter is able to look after her We discussed the possibility of the patient using a bipap at night time in order to improve her breathing and decrease her number of hospitalizations She denies any fevers, night sweats, chills, chest pain, or palpitations but is still having a productive cough Additional Comments: please see note for HPI Medications Current Inpatient Medications Medications (Trade) Dose Ordered Sig/Buddy Route Start Time Stop Time Status Last Admin Dose Admin Acetaminophen (Tylenol Tab) 650 mg Q4H PRN PO 09/10/16 15:00 10/10/16 14:59 Al Hydrox/Mg Hydrox/Simethicone (Maalox Max Susp) 15 ml Q4H PRN PO 09/10/16 15:00 10/10/16 14:59 Magnesium Hydroxide (Milk Of Magnesia Susp) 30 ml Q12H PRN PO 09/10/16 15:00 10/10/16 14:59 09/14/16 17:13 30 ML Ondansetron HCl (Zofran Inj) 4 mg Q6H PRN IV 09/10/16 15:00 10/10/16 14:59 Polyethylene (Miralax Powder Packet) 17 gm DAILY PRN PO 09/10/16 15:00 10/10/16 14:59 09/13/16 08:45 17 GM Levalbuterol (Xopenex 1.25MG/ 0.5ML Neb) 1.25 mg Q6R INH 09/10/16 15:00 10/10/16 14:59 09/15/16 07:44 1.25 MG Amiodarone HCl (Cordarone Tab) 100 mg DAILY PO 09/11/16 09:00 10/11/16 08:59 09/14/16 09:00 100 MG Atorvastatin Calcium (Lipitor Tab) 80 mg DAILY PO 09/11/16 09:00 10/11/16 08:59 09/14/16 08:57 80 MG Buspirone HCl (BusPAR TAB) 15 mg TID PO 09/10/16 21:00 10/10/16 20:59 09/14/16 20:35 15 MG Folic Acid (Folvite Tab) 1 mg DAILY PO 09/11/16 09:00 10/11/16 08:59 09/14/16 09:00 1 MG Lactobacillus Acidophilus (Floranex Tab) 1 tab TIDM PO 09/10/16 18:00 10/10/16 17:59 09/14/16 16:29 1 TAB Pantoprazole Sodium (Protonix Tab) 40 mg DAILY PO 09/11/16 09:00 10/11/16 08:59 09/14/16 09:25 40 MG Rivaroxaban (Xarelto Tab) 20 mg QDD PO 09/11/16 16:30 10/11/16 16:44 09/14/16 16:29 20 MG Trazodone HCl (Desyrel Tab) 200 mg HS PO 09/10/16 21:00 10/10/16 20:59 09/14/16 20:35 200 MG Venlafaxine HCl (effeXOR EXTENDED REL CAP) 75 mg DAILY PO 09/11/16 09:00 10/11/16 08:59 09/14/16 08:59 75 MG Venlafaxine HCl (effeXOR EXTENDED REL CAP) 150 mg DAILY PO 09/11/16 09:00 10/11/16 08:59 09/14/16 08:58 150 MG Cholecalciferol (Vitamin D Tab) 2,000 inter.unit DAILY PO 09/11/16 09:00 10/11/16 08:59 09/14/16 08:58 2,000 INTER.UNIT Ferrous Sulfate (Feosol Tab) 325 mg BIDM PO 09/10/16 18:00 10/10/16 17:59 09/14/16 16:29 325 MG Levalbuterol (Xopenex 1.25MG/ 0.5ML Neb) 1.25 mg Q2H PRN INH 09/10/16 15:30 10/10/16 15:29 09/13/16 10:00 1.25 MG Ipratropium Allen (Atrovent 0.02% 0.5MG/2.5ML Neb) 0.5 mg Q2H PRN INH 09/10/16 15:30 10/10/16 15:29 09/13/16 10:00 0.5 MG Insulin Aspart (novoLOG ASPART) SLIDING SCALE If C... ACHS SC 09/10/16 21:00 10/10/16 20:59 09/14/16 20:45 1 UNITS Glucose (Glucose 40% Gel) 15-30 GRAMS 15 GRAMS... UD PRN PO 09/10/16 15:30 10/10/16 15:29 Glucose (Glucose Chew Tab) 4-8 Tablets 4 Tabl... UD PRN PO 09/10/16 15:30 10/10/16 15:29 Dextrose (Dextrose 50% 50ML Syringe) 25-50ML OF 50% DW IV FOR... UD PRN IV 09/10/16 15:30 10/10/16 15:29 Glucagon (Glucagon Inj) 1 mg UD PRN SQ 09/10/16 15:30 10/10/16 15:29 Miscellaneous Information (Consult Glycemic Management Pharmacy) 1 ea UD PRN N/A 09/12/16 09:00 10/12/16 08:59 Docusate Sodium (coLACE CAP) 100 mg BID PO 09/12/16 21:00 10/12/16 20:59 09/14/16 20:35 100 MG Ipratropium Allen (Atrovent 0.02% 0.5MG/2.5ML Neb) 0.5 mg Q6R INH 09/13/16 15:00 10/13/16 14:59 09/15/16 07:44 0.5 MG Amlodipine Besylate (Norvasc Tab) 10 mg QAM PO 09/14/16 09:00 10/14/16 08:59 09/14/16 08:57 10 MG Multi-Ingredient Ointment (Eucerin Unscented Cr) 1 appln BID EXT 09/13/16 10:00 10/13/16 09:59 09/14/16 20:37 1 APPLN Budesonide/ Formoterol Fumarate (Symbicort 160/ 4.5 Inh) 2 puffs BID INH 09/13/16 21:00 10/13/16 20:59 09/14/16 20:36 2 PUFFS Tiotropium Allen (Spiriva Handihaler Inhaler) 1 puff QAM INH 09/14/16 09:00 10/14/16 08:59 09/14/16 08:58 1 PUFF Morphine Sulfate (MoRPHine SULFATE INJ) 1 mg Q6H PRN IV 09/14/16 13:30 09/28/16 13:29 09/14/16 23:55 1 MG Levofloxacin (Levaquin Tab) 750 mg DAILY@11 PO 09/14/16 11:00 09/16/16 11:01 09/14/16 08:58 750 MG Prednisone (PredniSONE TAB) 60 mg QAM PO 09/14/16 09:00 10/14/16 08:59 09/14/16 09:25 60 MG Polyethylene (Miralax Powder Packet) 17 gm DAILY PO 09/14/16 09:00 10/14/16 08:59 09/14/16 09:10 17 GM Insulin Glargine (Lantus Solostar Pen) SEE PROTOCOL DAILY SC 09/15/16 09:00 10/15/16 08:59 Bisacodyl (Dulcolax Supp) 10 mg DAILY PRN NE 09/14/16 12:45 10/14/16 12:44 Objective Vital Signs Date Time Temp Pulse Resp B/P Pulse Ox O2 Delivery O2 Flow Rate FiO2 09/15/16 07:45 36.7 99 20 134/46 98 3.0 09/15/16 07:44 95 18 94 Nasal Cannula 4.0 09/15/16 04:00 Nasal Cannula 3.0 09/15/16 03:55 36.5 95 16 92/58 97 Nasal Cannula 3.0 09/15/16 01:10 86 19 97 BiPAP/CPAP 35 09/15/16 01:06 86 97 35 09/14/16 23:59 96 Nasal Cannula 3.0 09/14/16 23:23 36.9 95 18 153/74 98 Nasal Cannula 3.0 09/14/16 20:00 96 Nasal Cannula 3.0 09/14/16 19:42 37.2 98 24 149/66 94 Nasal Cannula 3.0 09/14/16 19:10 88 18 94 Nasal Cannula 4.0 09/14/16 17:47 37.1 102 20 156/63 96 Nasal Cannula 3.0 09/14/16 16:31 36.9 105 23 93 3.0 09/14/16 16:00 Nasal Cannula 3.0 09/14/16 16:00 36.9 105 23 147/89 93 Nasal Cannula 3.0 09/14/16 14:00 103 22 120/61 93 Nasal Cannula 3.0 09/14/16 12:00 106 25 140/63 94 Nasal Cannula 3.0 09/14/16 12:00 Nasal Cannula 3.0 09/14/16 11:11 36.9 110 20 169/80 94 Nasal Cannula 3.0 09/14/16 11:01 115 26 138/86 91 Nasal Cannula 3.0 09/14/16 10:00 96 23 98 BiPAP 35 09/14/16 09:00 108 18 92 Nasal Cannula 2.0 Physical Exam General Appearance: WD/WN, no apparent distress, + obese, + pertinent finding ( sitting at the bedside, looking out the window) Neck: supple, no adenopathy, thyroid normal, trachea midline Respiratory/Chest: lungs clear, no respiratory distress, no accessory muscle use, + decreased breath sounds (decreased breath sounds bilaterally) Cardiovascular: regular rate, rhythm, no edema, no murmur Neurologic/Psychiatric: alert, normal mood/affect, oriented x 3 Laboratory Results Results Past 24 Hours Test 09/14/16 09:09 09/14/16 11:10 09/14/16 16:25 09/14/16 20:41 Range/Units Blood Gas Sample Site L Radial Bedside Blood Gas pH (LAB) 7.42 7.35-7.45 Bedside Blood Gas pCO2 (LAB) 57 35-46 mmHg Bedside Blood Gas pO2 (LAB) 62 80-95 mmHg Bedside Blood Gas HCO3 (LAB) 36 19-24 meq/L Bedside Blood Gas Total CO2 38 24-31 mEq/l Bedside Blood Gas Base Excess (LAB) 12.0 -9-1.8 meq/L Bedside Blood Gas O2 Saturation 91.0 90-95 % Red Test Pass Oxygen Delivery Device Cannula Bedside Glucose 254 132 192 70-90 mg/dl Test 09/15/16 05:21 09/15/16 06:53 Range/Units Sodium Level 145 136-145 mmol/L Potassium Level 4.0 3.5-5.1 mmol/L Chloride Level 101 98-107 mmol/L Carbon Dioxide Level 42 21-32 mmol/L Anion Gap 2.0 3-11 mmol/L Blood Urea Nitrogen 25 7-18 mg/dl Creatinine 0.74 0.60-1.20 mg/dl Est Creatinine Clear Calc Drug Dose 74.3 ml/min Estimated GFR () 92.5 Estimated GFR (Non- 79.8 BUN/Creatinine Ratio 33.4 10-20 Random Glucose 146 70-99 mg/dl Calcium Level 8.3 8.5-10.1 mg/dl Bedside Glucose 114 70-90 mg/dl Assessment and Plan 76 year old female with COPD exacerbation requiring bipap in the ICU. Acute and chronic hypoxic and hypercapneic respiratory failure in setting of COPD exacerbation - Using bipap TID. (uses morphine when has to go on bipap to help with anxiety) - oxygenating well on nasal cannula - maintain oxygen between 88-92% COPD exacerbation - levaquin switched to PO (day 6/) - continue nebs q6 - 60mg steroids PO - CT scan unremarkable except for bilateral nephrolithiasis - sputum culture showed contaminant - flutter valve to get rid of sputum Anxiety/Depression - continue home meds - effexor and buspirone T2DM - Sliding scale and Lantus 6 units bid - Last Hba1c 6.1 PA fib and HTN and HLD - Xarelto and amiodarone - Continue atorvastatin and amlodipine Diet - Advance diet as tolerated DVT prophylaxis - SCD and xarelto Constipation - Patient on colace and miralax FULL CODE Continued [facility] stay due to: ambulation difficulties Discharge planning: home Reviewed: Pt Seen/Exam by Me History still feeling short of breath but improving slowly. fearful about being discharged before being back to baseline. Constitutional: denies: fever Respiratory: positive: short of breath Cardiovascular: denies chest pain General Appearance: mild distress (respiratory) Respiratory: respiratory distress, decreased breath sounds Cardiovascular: regular rate, rhythm Gastrointestinal: soft Neurologic/Psychiatric: alert, oriented x 3 Skin Characteristics: warm/dry Assessment/Plan I have reviewed the medical record and performed a history and physical examination of this patient today. I have discussed the case with Dr. Arellano. The above note reflects my findings, conclusions, and recommendations.
[2016-09-15] MEDS: BusPIRone 15 MG TAB PO SCH ×3 (08:26→20:49)
[2016-09-15] MEDS: AMIODARONE 200 MG TAB PO SCH (08:26)
[2016-09-15] MEDS: BUDESONIDE/FORMOTEROL FUMARATE 160/4.5 60 PUFFS/INHALER INH SCH ×2 (08:26→20:48)
[2016-09-15] MEDS: VENLAFAXINE HCL XR 150 MG CAPXR PO SCH (08:27)
[2016-09-15] MEDS: LACTOBACILLUS ACIDOPHILUS (FLORANEX) TAB PO SCH ×3 (08:27→16:57)
[2016-09-15] MEDS: DOCUSATE SODIUM 100 MG CAP PO SCH ×2 (08:27→20:49)
[2016-09-15] MEDS: AMLODIPINE BESYLATE 5 MG TAB PO SCH (08:27)
[2016-09-15] MEDS: VENLAFAXINE HCL XR 75 MG CAPXR PO SCH (08:27)
[2016-09-15] MEDS: ATORVASTATIN 40 MG TAB PO SCH (08:27)
[2016-09-15] MEDS: FERROUS SULFATE 325 MG TAB PO SCH ×2 (08:27→16:57)
[2016-09-15] MEDS: TIOTROPIUM BROMIDE 5 PUFF/90 MCG INH INH SCH (08:28)
[2016-09-15] MEDS: PANTOprazole SOD 40 MG TAB PO SCH (08:29)
[2016-09-15] MEDS: POLYETHYLENE (MIRALAX) 17 GM PACK PO SCH (08:29)
[2016-09-15] MEDS: CHOLECALCIFEROL 1000 INTER.UNIT TAB PO SCH (08:29)
[2016-09-15] MEDS: INSULIN GLARGINE SOLOSTAR 100 UNITS/ML 3 ML PEN SC SCH (08:30)
[2016-09-15] MEDS: EUCERIN CR 120 GM JAR EXT SCH ×2 (08:30→20:48)
[2016-09-15] MEDS: INSULIN ASPART 100 UNITS/ML 3 ML PEN SC SCH ×4 (08:40→20:56)
[2016-09-15] MEDS: LEVOFLOXACIN 750 MG TAB PO SCH (12:08)
[2016-09-15] MEDS: IPRATROPIUM BROMIDE NEB SOLN 0.02% 2.5 ML VIAL INH PRN (12:24)
[2016-09-15] MEDS: LEVALBUTEROL 1.25MG/0.5ML NEB INH PRN (12:24)
[2016-09-15] MEDS: MoRPHine SULFATE 2 MG/ML CARP IV PRN ×2 (15:05→23:44)
[2016-09-15] MEDS: RIVAROXABAN 10 MG TAB PO SCH (16:57)
[2016-09-15] MEDS: TRAZODONE HCL 100 MG TAB PO SCH (20:51)
[2016-09-16] VITALS (15 sets, daily range): BP systolic 142–183; BP diastolic 65–85; PULSE 91–109; TEMP 36.7–37.5; O2SAT 92–100
[2016-09-16] MEDS: IPRATROPIUM BROMIDE NEB SOLN 0.02% 2.5 ML VIAL INH SCH ×4 (02:36→19:11)
[2016-09-16] MEDS: LEVALBUTEROL 1.25MG/0.5ML NEB INH SCH ×4 (02:36→19:11)
[2016-09-16] MEDS: VENLAFAXINE HCL XR 150 MG CAPXR PO SCH (08:27)
[2016-09-16] MEDS: ATORVASTATIN 40 MG TAB PO SCH (08:27)
[2016-09-16] MEDS: AMIODARONE 200 MG TAB PO SCH (08:27)
[2016-09-16] MEDS: LACTOBACILLUS ACIDOPHILUS (FLORANEX) TAB PO SCH ×3 (08:27→16:33)
[2016-09-16] MEDS: AMLODIPINE BESYLATE 5 MG TAB PO SCH (08:27)
[2016-09-16] MEDS: VENLAFAXINE HCL XR 75 MG CAPXR PO SCH (08:27)
[2016-09-16] MEDS: BusPIRone 15 MG TAB PO SCH ×3 (08:28→21:00)
[2016-09-16] MEDS: DOCUSATE SODIUM 100 MG CAP PO SCH ×2 (08:28→21:00)
[2016-09-16] MEDS: BUDESONIDE/FORMOTEROL FUMARATE 160/4.5 60 PUFFS/INHALER INH SCH ×2 (08:28→20:59)
[2016-09-16] MEDS: PANTOprazole SOD 40 MG TAB PO SCH (08:28)
[2016-09-16] MEDS: FERROUS SULFATE 325 MG TAB PO SCH ×2 (08:28→16:33)
[2016-09-16] MEDS: TIOTROPIUM BROMIDE 5 PUFF/90 MCG INH INH SCH (08:29)
[2016-09-16] MEDS: CHOLECALCIFEROL 1000 INTER.UNIT TAB PO SCH (08:29)
[2016-09-16] MEDS ORDERED: ALPRAZOLAM 0.25 MG TAB PO PRN (08:30)
[2016-09-16] MEDS: INSULIN GLARGINE SOLOSTAR 100 UNITS/ML 3 ML PEN SC SCH (08:30)
[2016-09-16] MEDS: EUCERIN CR 120 GM JAR EXT SCH ×2 (08:33→20:59)
[2016-09-16] MEDS: INSULIN ASPART 100 UNITS/ML 3 ML PEN SC SCH ×4 (08:38→20:59)
--- NOTE | 2016-09-16 08:41 | Family Medicine Progress Note ---
Progress Note Date of Service September 16, 2016. Subjective Pt evaluation today including: conversation w/ patient, physical exam, chart review, conversation w/ senior analytic consultant, review of inpatient medication list Pain: none PO Intake: good Voiding: no voiding problems Patient with no acute events overnight Patient did not sleep very well last night with bipap on depsite receiving morphine. She said she wore the bipap throughout the night and it did make her feel better. She said she is not quite at her baseline yet, but is feeling close She has been ambulating to the toilet without any difficulty She denies any fevers, night sweats, chills, productive cough, chest pain or palpitations Additional Comments: please see note for ROS Medications Current Inpatient Medications Medications (Trade) Dose Ordered Sig/Buddy Route Start Time Stop Time Status Last Admin Dose Admin Acetaminophen (Tylenol Tab) 650 mg Q4H PRN PO 09/10/16 15:00 10/10/16 14:59 Al Hydrox/Mg Hydrox/Simethicone (Maalox Max Susp) 15 ml Q4H PRN PO 09/10/16 15:00 10/10/16 14:59 Magnesium Hydroxide (Milk Of Magnesia Susp) 30 ml Q12H PRN PO 09/10/16 15:00 10/10/16 14:59 09/14/16 17:13 30 ML Ondansetron HCl (Zofran Inj) 4 mg Q6H PRN IV 09/10/16 15:00 10/10/16 14:59 Polyethylene (Miralax Powder Packet) 17 gm DAILY PRN PO 09/10/16 15:00 10/10/16 14:59 09/13/16 08:45 17 GM Levalbuterol (Xopenex 1.25MG/ 0.5ML Neb) 1.25 mg Q6R INH 09/10/16 15:00 10/10/16 14:59 09/16/16 06:57 1.25 MG Amiodarone HCl (Cordarone Tab) 100 mg DAILY PO 09/11/16 09:00 10/11/16 08:59 09/15/16 08:26 100 MG Atorvastatin Calcium (Lipitor Tab) 80 mg DAILY PO 09/11/16 09:00 10/11/16 08:59 09/15/16 08:27 80 MG Buspirone HCl (BusPAR TAB) 15 mg TID PO 09/10/16 21:00 10/10/16 20:59 09/15/16 20:49 15 MG Folic Acid (Folvite Tab) 1 mg DAILY PO 09/11/16 09:00 10/11/16 08:59 09/15/16 08:29 1 MG Lactobacillus Acidophilus (Floranex Tab) 1 tab TIDM PO 09/10/16 18:00 10/10/16 17:59 09/15/16 16:57 1 TAB Pantoprazole Sodium (Protonix Tab) 40 mg DAILY PO 09/11/16 09:00 10/11/16 08:59 09/15/16 08:29 40 MG Rivaroxaban (Xarelto Tab) 20 mg QDD PO 09/11/16 16:30 10/11/16 16:44 09/15/16 16:57 20 MG Trazodone HCl (Desyrel Tab) 200 mg HS PO 09/10/16 21:00 10/10/16 20:59 09/15/16 20:51 200 MG Venlafaxine HCl (effeXOR EXTENDED REL CAP) 75 mg DAILY PO 09/11/16 09:00 10/11/16 08:59 09/15/16 08:27 75 MG Venlafaxine HCl (effeXOR EXTENDED REL CAP) 150 mg DAILY PO 09/11/16 09:00 10/11/16 08:59 09/15/16 08:27 150 MG Cholecalciferol (Vitamin D Tab) 2,000 inter.unit DAILY PO 09/11/16 09:00 10/11/16 08:59 09/15/16 08:29 2,000 INTER.UNIT Ferrous Sulfate (Feosol Tab) 325 mg BIDM PO 09/10/16 18:00 10/10/16 17:59 09/15/16 16:57 325 MG Levalbuterol (Xopenex 1.25MG/ 0.5ML Neb) 1.25 mg Q2H PRN INH 09/10/16 15:30 10/10/16 15:29 09/15/16 12:24 1.25 MG Ipratropium [place] (Atrovent 0.02% 0.5MG/2.5ML Neb) 0.5 mg Q2H PRN INH 4/29/17 15:30 10/10/16 15:29 09/15/16 12:24 0.5 MG Insulin Aspart (novoLOG ASPART) SLIDING SCALE If C... ACHS SC 09/10/16 21:00 10/10/16 20:59 09/15/16 20:56 3 UNITS Glucose (Glucose 40% Gel) 15-30 GRAMS 15 GRAMS... UD PRN PO 09/10/16 15:30 10/10/16 15:29 Glucose (Glucose Chew Tab) 4-8 Tablets 4 Tabl... UD PRN PO 09/10/16 15:30 10/10/16 15:29 Dextrose (Dextrose 50% 50ML Syringe) 25-50ML OF 50% DW IV FOR... UD PRN IV 09/10/16 15:30 10/10/16 15:29 Glucagon (Glucagon Inj) 1 mg UD PRN SQ 09/10/16 15:30 10/10/16 15:29 Miscellaneous Information (Consult Glycemic Management Pharmacy) 1 ea UD PRN N/A 09/12/16 09:00 10/12/16 08:59 Docusate Sodium (coLACE CAP) 100 mg BID PO 09/12/16 21:00 10/12/16 20:59 09/15/16 20:49 100 MG Ipratropium [place] (Atrovent 0.02% 0.5MG/2.5ML Neb) 0.5 mg Q6R INH 09/13/16 15:00 10/13/16 14:59 09/16/16 06:57 0.5 MG Amlodipine Besylate (Norvasc Tab) 10 mg QAM PO 09/14/16 09:00 10/14/16 08:59 09/15/16 08:27 10 MG Multi-Ingredient Ointment (Eucerin Unscented Cr) 1 appln BID EXT 09/13/16 10:00 10/13/16 09:59 09/15/16 20:48 1 APPLN Budesonide/ Formoterol Fumarate (Symbicort 160/ 4.5 Inh) 2 puffs BID INH 09/13/16 21:00 10/13/16 20:59 09/15/16 20:48 2 PUFFS Tiotropium [place] (Spiriva Handihaler Inhaler) 1 puff QAM INH 09/14/16 09:00 10/14/16 08:59 09/15/16 08:28 1 PUFF Levofloxacin (Levaquin Tab) 750 mg DAILY@11 PO 09/14/16 11:00 09/16/16 11:01 09/15/16 12:08 750 MG Polyethylene (Miralax Powder Packet) 17 gm DAILY PO 09/14/16 09:00 10/14/16 08:59 09/15/16 08:29 17 GM Insulin Glargine (Lantus Solostar Pen) SEE PROTOCOL DAILY SC 09/15/16 09:00 10/15/16 08:59 Bisacodyl (Dulcolax Supp) 10 mg DAILY PRN [place] 09/14/16 12:45 10/14/16 12:44 Morphine Sulfate (MoRPHine SULFATE INJ) 1 mg Q6H PRN IV 09/15/16 14:30 09/29/16 14:29 09/15/16 23:44 1 MG Prednisone (PredniSONE TAB) 40 mg QAM PO 09/16/16 09:00 10/16/16 08:59 Alprazolam (Xanax Tab) 0.25 mg HS PRN PO 09/16/16 08:30 10/16/16 08:29 Objective Vital Signs Date Time Temp Pulse Resp B/P Pulse Ox O2 Delivery O2 Flow Rate FiO2 09/16/16 08:22 37.5 95 18 171/77 96 Nasal Cannula 4.0 09/16/16 06:55 103 16 98 Nasal Cannula 4.0 09/16/16 06:37 142/71 09/16/16 04:46 91 96 35 09/16/16 04:07 36.7 95 18 181/85 99 BiPAP 09/16/16 04:00 BiPAP 09/16/16 02:15 91 16 95 BiPAP/CPAP 35 09/16/16 02:15 91 95 35 09/16/16 00:00 BiPAP 09/15/16 23:30 37.0 96 20 149/72 95 Humidified Oxygen 3.0 09/15/16 20:00 100 Nasal Cannula 3.0 09/15/16 19:15 88 20 95 Nasal Cannula 4.0 09/15/16 19:14 37.2 99 24 147/78 96 Nasal Cannula 3.0 09/15/16 16:00 100 BiPAP 35 09/15/16 15:52 36.7 99 18 143/60 100 BiPAP 09/15/16 14:21 96 20 96 Nasal Cannula 4.0 09/15/16 12:24 103 20 96 Nasal Cannula 4.0 09/15/16 12:00 Nasal Cannula 3.0 09/15/16 11:16 36.8 100 22 146/63 94 3.0 Physical Exam General Appearance: WD/WN, no apparent distress, + obese, + pertinent finding ( patient laying in bed with nasal cannula in place) Respiratory/Chest: chest non-tender, no respiratory distress, no accessory muscle use, + decreased breath sounds, + wheezing (mild wheezing at the bases) Cardiovascular: regular rate, rhythm, no edema, no murmur Extremities: non-tender, no calf tenderness, normal capillary refill Neurologic/Psychiatric: alert, normal mood/affect, oriented x 3 Laboratory Results Results Past 24 Hours Test 09/15/16 11:10 09/15/16 16:11 09/15/16 20:15 09/16/16 06:36 Range/Units Bedside Glucose 148 132 265 155 70-90 mg/dl Assessment and Plan 76 year old female with COPD exacerbation. Initially required continued bipap in the ICU and now she is on her home regimen of 4L Acute and chronic hypoxic and hypercapneic respiratory failure in setting of COPD exacerbation - Using bipap at night and occasionally during the day (uses morphine when has to go on bipap to help with anxiety-----> going to try using .25 of xanax before bed to help with bipap anxiety at nightime) - oxygenating well on nasal cannula - maintain oxygen between 88-92% - PATIENT WILL NEED TO GET OVERNIGHT PULSE OX AND AM BLOOD GASES TO QUALIFY FOR BiPAP COPD exacerbation - levaquin switched to PO (day 11/18) - continue nebs q6 - steroids decreased to 40 mg PO - CT scan unremarkable except for bilateral nephrolithiasis - sputum culture showed contaminant - flutter valve to get rid of sputum Anxiety/Depression - continue home meds - effexor and buspirone T2DM - Sliding scale and Lantus 6 units bid - Last Hba1c 6.1 PA fib and HTN and HLD - Xarelto and amiodarone - Continue atorvastatin and amlodipine Diet - Regular diet DVT prophylaxis - SCD and xarelto Constipation - Patient on colace and miralax Dispo - Daughter will talk to case management this afternoon to discuss outpatient care FULL CODE Continued [facility] stay due to: ambulation difficulties, home environment unsafe for pt Discharge planning: home, home with home health, rehab hospital Reviewed: Pt Seen/Exam by Me History breathing slowly improving Constitutional: denies: fever Cardiovascular: denies chest pain Gastrointestinal/Abdominal: negative: abdominal pain General Appearance: mild distress Respiratory: decreased breath sounds (better air entry) Cardiovascular: regular rate, rhythm Neurologic/Psychiatric: alert, oriented x 3 Skin Characteristics: warm/dry Assessment/Plan I have reviewed the medical record and performed a history and physical examination of this patient today. I have discussed the case with Dr. Arellano. The above note reflects my findings, conclusions, and recommendations.
[2016-09-16] MEDS: POLYETHYLENE (MIRALAX) 17 GM PACK PO SCH (09:00)
[2016-09-16 10:53] LABS: ARTERIAL BLD GAS O2 SATURATION 94.3 % (90-95); ARTERIAL BLOOD GAS BASE EXCESS 11.6 mEq/L (-9-1.8); ARTERIAL BLOOD GAS HCO3 37 mmol/L (19-24); ARTERIAL BLOOD GAS PO2 77 mm/Hg (80-95); ARTERIAL BLOOD GAS pH 7.47 (7.35-7.45)
[2016-09-16 10:54] LABS: ALLEN TEST POS (POS); O2 ADMINISTRATION 4L
--- NOTE | 2016-09-16 11:50 | Pharmacy Progress Note ---
Glycemic: Assessment & Plan Date of Service September 16, 2016. Assessment & Plan Recent Pertinent Medications The patient is currently receiving: * Basal insulin: * Lantus SQ daily - 0 units if BSG is below 140mg/dL - 4 units if BSG is 140-180mg/dL - 6 units if BSG is above 180mg/dL * Bolus Insulin: * NovoLog AQ AC/HS - Goal Range: Low 140 mg/dL - High 180 mg/dL - Correction Factor: 35 mg/dL/unit - Carb ratio of 1 unit per 15 grams CHO consumed Risk Factors for Insulin Resistance: * Steroids: -Y-l-u-u-----O-i-f-r-o-l- -4-0-m-g- -I-V- -e-v-e-r-y- -8- -h-o-u-r-s- ------->- -K-s-c-u-b-d-s-o-n-e- -6-0-m-g- -P-O- -d-a-i-l-y- --> Prednisone 40mg PO daily * Infection: Levofloxacin - day #11/18 therapy * Diet: tolerating well per CHO counts Assessment & Plan ASSESSMENT: * ADA & AACE recommend a goal blood sugar range 140-180 mg/dl for the majority of critically ill & non-critically ill patients. * 76 yo F non-diabetic patient (per HbA1c) with steroid-induced hyperglycemia. * Steroids changed today to once daily prednisone (the patient does take prednisone at home) * will likely require reduction in daily insulin doses as steroids change * Do not anticipate patient will require insulin on discharge PLAN FOR INPATIENT GLYCEMIC CONTROL: * Basal insulin: * Lantus SQ daily - 0 units for BSG < 140 mg/dL - 4 units for BSG 140-180mg/dL mg/dL - 6 units for BSG above 180mg/dL * Bolus Insulin: * NovoLog SQ AC/HS - Goal Range: 140mg/dL - 180mg/dL per ADA recommendations - Correction Factor: 35 mg/dL/unit - Carb ratio of 1 unit per 15 grams CHO consumed RECOMMENDATIONS FOR DISCHARGE: * Likely, the patient will not require any diabetic medications upon discharge as A1c is below 5.7% * Please note that the plan above was derived based on current level of insulin resistance and hospital stress. These recommendations are appropriate for inpatient admission only. Plan of care upon discharge will need to be reassessed to avoid potential outpatient hypo/hyperglycemia. Thank you.
[2016-09-16] MEDS: LEVOFLOXACIN 750 MG TAB PO SCH (12:30)
[2016-09-16] MEDS: RIVAROXABAN 10 MG TAB PO SCH (16:32)
[2016-09-16] MEDS: TRAZODONE HCL 100 MG TAB PO SCH (21:00)
[2016-09-17] VITALS (13 sets, daily range): BP systolic 127–181; BP diastolic 57–95; PULSE 84–120; TEMP 36.6–37.3; O2SAT 93–100
[2016-09-17] MEDS: IPRATROPIUM BROMIDE NEB SOLN 0.02% 2.5 ML VIAL INH SCH ×4 (01:49→19:12)
[2016-09-17] MEDS: LEVALBUTEROL 1.25MG/0.5ML NEB INH SCH ×4 (01:49→19:12)
[2016-09-17] MEDS ORDERED: DILTIAZEM HCL 30 MG TAB PO ONE (02:56)
[2016-09-17] MEDS: DOCUSATE SODIUM 100 MG CAP PO SCH ×2 (07:50→20:42)
[2016-09-17] MEDS: LACTOBACILLUS ACIDOPHILUS (FLORANEX) TAB PO SCH ×3 (07:50→17:02)
[2016-09-17] MEDS: ATORVASTATIN 40 MG TAB PO SCH (07:50)
[2016-09-17] MEDS: VENLAFAXINE HCL XR 150 MG CAPXR PO SCH (07:52)
[2016-09-17] MEDS: BusPIRone 15 MG TAB PO SCH ×3 (07:52→20:41)
[2016-09-17] MEDS: DILTIAZEM HCL 30 MG TAB PO SCH ×4 (07:52→20:42)
[2016-09-17] MEDS: PANTOprazole SOD 40 MG TAB PO SCH (07:53)
[2016-09-17] MEDS: VENLAFAXINE HCL XR 75 MG CAPXR PO SCH (07:54)
[2016-09-17] MEDS: CHOLECALCIFEROL 1000 INTER.UNIT TAB PO SCH (07:54)
[2016-09-17] MEDS: AMIODARONE 200 MG TAB PO SCH (07:55)
[2016-09-17] MEDS: TIOTROPIUM BROMIDE 5 PUFF/90 MCG INH INH SCH (07:57)
[2016-09-17] MEDS: POLYETHYLENE (MIRALAX) 17 GM PACK PO SCH (07:57)
[2016-09-17] MEDS: BUDESONIDE/FORMOTEROL FUMARATE 160/4.5 60 PUFFS/INHALER INH SCH ×2 (07:58→20:41)
[2016-09-17] MEDS: FERROUS SULFATE 325 MG TAB PO SCH ×2 (08:00→17:02)
[2016-09-17] MEDS: EUCERIN CR 120 GM JAR EXT SCH ×2 (08:00→21:00)
[2016-09-17] MEDS: INSULIN ASPART 100 UNITS/ML 3 ML PEN SC SCH ×4 (08:19→20:43)
--- NOTE | 2016-09-17 09:11 | Pharmacy Progress Note ---
Glycemic Control: Progress Nt Date of Service September 17, 2016. Scope Glycemic Pharmacist consulted by Dr Trotter on 09/12/16 for glycemic control and to write orders per [facility] inpatient glycemic control protocol. Objective Accuchecks BSG (last 24hrs): Test 09/16/16 11:25 09/16/16 16:34 09/16/16 20:50 09/17/16 06:44 Bedside Glucose 161 mg/dl (70-90) 201 mg/dl (70-90) 149 mg/dl (70-90) 97 mg/dl (70-90) HbA1c: Test 09/11/16 05:47 Hemoglobin A1c 5.5 % (4.5-5.6) Recent Pertinent Medications Outpatient Anti-diabetic Regimen: * N/A - no prior diagnosis * A1c is in normal range (no diabetes) The patient is currently receiving: * Basal insulin: * Lantus SQ daily - 0 units if BSG is below 140mg/dL - 4 units if BSG is 140-180mg/dL - 6 units if BSG is above 180mg/dL * Bolus Insulin: * NovoLog SQ AC/HS - Goal Range: Low 140 mg/dL - High 180 mg/dL - Correction Factor: 35 mg/dL/unit - Carb ratio of 1 unit per 15 grams CHO consumed Risk Factors for Insulin Resistance: * Steroids: -O-f-y-u-----P-o-s-r-o-l- -4-0-m-g- -I-V- -e-v-e-r-y- -8- -h-o-u-r-s- ------->- -Z-t-u-e-i-r-s-o-n-e- -6-0-m-g- -P-O- -d-a-i-l-y- --> Prednisone 40mg PO daily given in the morning * Infection: Levofloxacin - day #11/18 therapy completed 09/16/16 * Diet: tolerating well per CHO counts Assessment & Plan ASSESSMENT: * 76 yo F non-diabetic patient (per HbA1c) with steroid-induced hyperglycemia. * Steroids changed to once daily prednisone (the patient does take prednisone at home) and dose continue to taper * Insulin doses have been titrated with each step down in steroid dosing * AM fasting BSG in range for non-diabetic at 97mg/dl --> will d/c basal insulin as this is no longer needed. Hyperglycemia secondary to once daily prednisone is best covered by using once daily NPH or multiple injections of Novolog as these agents pharmacokinetics matches that of the hyperglycemic effects of once daily prednisone. PLAN FOR INPATIENT GLYCEMIC CONTROL: * Basal insulin: * Discontinue. No longer needed now that steroids tapered & AM fasting BSG in goal range * Bolus Insulin: * Continue conservative dosing to maintain BSG < 180mg/dl * May consider d/c HS check/coverage since hyperglycemia secondary to once daily prednisone minimal at this time after daily administration in the morning. * NovoLog SQ AC/HS - Goal Range: 140mg/dL - 180mg/dL per ADA recommendations - Correction Factor: 35 mg/dL/unit - Carb ratio of 1 unit per 15 grams CHO consumed RECOMMENDATIONS FOR DISCHARGE: * Likely, the patient will not require any diabetic medications upon discharge as A1c normal, (5.7%) * Pt only required insulin in house for severe steroid induced hyperglycemia * Please note that the plan above was derived based on current level of insulin resistance and hospital stress. These recommendations are appropriate for inpatient admission only. Plan of care upon discharge will need to be reassessed to avoid potential outpatient hypo/hyperglycemia. Thank you.
--- NOTE | 2016-09-17 14:19 | Family Medicine Progress Note ---
Progress Note Date of Service September 17, 2016. Subjective Pt evaluation today including: conversation w/ patient, physical exam, chart review, lab review, review of studies Pain: No pain reported this morning Voiding: no voiding problems patient is feeling better this morning and states that her shortness of breath is improved. Overnight she denies any palpitations and states that she is usually aware when she is having an episode of irregular heart rate. She denies any fever, chills, headache, or chest pain. Constitutional: + fatigue, No chills, No fever, No sweats Respiratory: + shortness of breath, + sputum, No cough, No wheezing Cardiovascular: No chest pain, No edema, No palpitations Abdomen: No constipation, No diarrhea, No nausea, No pain, No vomiting Female : No dysuria Medications Current Inpatient Medications Medications (Trade) Dose Ordered Sig/Buddy Route Start Time Stop Time Status Last Admin Dose Admin Acetaminophen (Tylenol Tab) 650 mg Q4H PRN PO 09/10/16 15:00 10/10/16 14:59 Al Hydrox/Mg Hydrox/Simethicone (Maalox Max Susp) 15 ml Q4H PRN PO 09/10/16 15:00 10/10/16 14:59 Magnesium Hydroxide (Milk Of Magnesia Susp) 30 ml Q12H PRN PO 09/10/16 15:00 10/10/16 14:59 09/14/16 17:13 30 ML Ondansetron HCl (Zofran Inj) 4 mg Q6H PRN IV 09/10/16 15:00 10/10/16 14:59 Polyethylene (Miralax Powder Packet) 17 gm DAILY PRN PO 09/10/16 15:00 10/10/16 14:59 09/13/16 08:45 17 GM Levalbuterol (Xopenex 1.25MG/ 0.5ML Neb) 1.25 mg Q6R INH 09/10/16 15:00 10/10/16 14:59 09/17/16 07:14 1.25 MG Amiodarone HCl (Cordarone Tab) 100 mg DAILY PO 09/11/16 09:00 10/11/16 08:59 09/17/16 07:55 100 MG Atorvastatin Calcium (Lipitor Tab) 80 mg DAILY PO 09/11/16 09:00 10/11/16 08:59 09/17/16 07:50 80 MG Buspirone HCl (BusPAR TAB) 15 mg TID PO 09/10/16 21:00 10/10/16 20:59 09/17/16 07:52 15 MG Folic Acid (Folvite Tab) 1 mg DAILY PO 09/11/16 09:00 10/11/16 08:59 09/17/16 07:53 1 MG Lactobacillus Acidophilus (Floranex Tab) 1 tab TIDM PO 09/10/16 18:00 10/10/16 17:59 09/17/16 13:45 1 TAB Pantoprazole Sodium (Protonix Tab) 40 mg DAILY PO 09/11/16 09:00 10/11/16 08:59 09/17/16 07:53 40 MG Rivaroxaban (Xarelto Tab) 20 mg QDD PO 09/11/16 16:30 10/11/16 16:44 09/16/16 16:32 20 MG Trazodone HCl (Desyrel Tab) 200 mg HS PO 09/10/16 21:00 10/10/16 20:59 09/16/16 21:00 200 MG Venlafaxine HCl (effeXOR EXTENDED REL CAP) 75 mg DAILY PO 09/11/16 09:00 10/11/16 08:59 09/17/16 07:54 75 MG Venlafaxine HCl (effeXOR EXTENDED REL CAP) 150 mg DAILY PO 09/11/16 09:00 10/11/16 08:59 09/17/16 07:52 150 MG Cholecalciferol (Vitamin D Tab) 2,000 inter.unit DAILY PO 09/11/16 09:00 10/11/16 08:59 09/17/16 07:54 2,000 INTER.UNIT Ferrous Sulfate (Feosol Tab) 325 mg BIDM PO 09/10/16 18:00 10/10/16 17:59 09/17/16 08:00 325 MG Levalbuterol (Xopenex 1.25MG/ 0.5ML Neb) 1.25 mg Q2H PRN INH 09/10/16 15:30 10/10/16 15:29 09/15/16 12:24 1.25 MG Ipratropium [place] (Atrovent 0.02% 0.5MG/2.5ML Neb) 0.5 mg Q2H PRN INH 09/10/16 15:30 10/10/16 15:29 09/15/16 12:24 0.5 MG Insulin Aspart (novoLOG ASPART) SLIDING SCALE If C... ACHS SC 09/10/16 21:00 10/10/16 20:59 09/17/16 08:19 2 UNITS Glucose (Glucose 40% Gel) 15-30 GRAMS 15 GRAMS... UD PRN PO 09/10/16 15:30 10/10/16 15:29 Glucose (Glucose Chew Tab) 4-8 Tablets 4 Tabl... UD PRN PO 09/10/16 15:30 10/10/16 15:29 Dextrose (Dextrose 50% 50ML Syringe) 25-50ML OF 50% DW IV FOR... UD PRN IV 09/10/16 15:30 10/10/16 15:29 Glucagon (Glucagon Inj) 1 mg UD PRN SQ 09/10/16 15:30 10/10/16 15:29 Miscellaneous Information (Consult Glycemic Management Pharmacy) 1 ea UD PRN N/A 09/12/16 09:00 10/12/16 08:59 Docusate Sodium (coLACE CAP) 100 mg BID PO 09/12/16 21:00 10/12/16 20:59 09/17/16 07:50 100 MG Ipratropium [place] (Atrovent 0.02% 0.5MG/2.5ML Neb) 0.5 mg Q6R INH 09/13/16 15:00 10/13/16 14:59 09/17/16 07:14 0.5 MG Multi-Ingredient Ointment (Eucerin Unscented Cr) 1 appln BID EXT 09/13/16 10:00 10/13/16 09:59 09/17/16 08:00 1 APPLN Budesonide/ Formoterol Fumarate (Symbicort 160/ 4.5 Inh) 2 puffs BID INH 09/13/16 21:00 10/13/16 20:59 09/17/16 07:58 2 PUFFS Tiotropium [place] (Spiriva Handihaler Inhaler) 1 puff QAM INH 09/14/16 09:00 10/14/16 08:59 09/17/16 07:57 1 PUFF Polyethylene (Miralax Powder Packet) 17 gm DAILY PO 09/14/16 09:00 10/14/16 08:59 09/17/16 07:57 17 GM Bisacodyl (Dulcolax Supp) 10 mg DAILY PRN [place] 09/14/16 12:45 10/14/16 12:44 Prednisone (PredniSONE TAB) 40 mg QAM PO 09/16/16 09:00 10/16/16 08:59 09/17/16 07:51 40 MG Alprazolam (Xanax Tab) 0.25 mg HS PRN PO 09/16/16 08:30 10/16/16 08:29 09/16/16 20:58 0.25 MG Diltiazem HCl (Cardizem Tab) 30 mg QID PO 09/17/16 09:00 10/17/16 08:59 09/17/16 07:52 30 MG Objective Physical Exam General Appearance: WD/WN, no apparent distress Respiratory/Chest: chest non-tender, no respiratory distress, no accessory muscle use, + decreased breath sounds, + wheezing Cardiovascular: regular rate, rhythm, no edema, no gallop Abdomen: normal bowel sounds, non tender, soft Neurologic/Psychiatric: alert, normal mood/affect, oriented x 3 Laboratory Results Results Past 24 Hours Test 09/16/16 16:34 09/16/16 20:50 09/17/16 06:44 09/17/16 11:36 Range/Units Bedside Glucose 201 149 97 175 70-90 mg/dl Assessment and Plan Patient is a 76 year old female with a PMH of Afib, COPD, DM, HLD, and GERD that presents with a COPD exacerbation 1) Acute on chronic hypoxic hypercarbic respiratory failure 2/2 COPD exacerbation - Completed 7 days course of Levaquin - Improving SOB with daytime NC and overnight BiPAP - Currently on 40mg PO Prednisone (transitioned from IV methylprednisolone) - Symbicort 2 Puffs BID, Atrovent 0.5mg q2h, Spiriva 1 puff daily - Incentive Spirometry - Sputum Culture - Contamination and Squamous cells - Tomorrow evening will collect ABG to evaluate for home BiPAP - Prednisone 40mg PO daily 2) Atrial Flutter - Overnight had episode of Afib treated with Cardizem 30mg - Amiodarone 100mg daily - Another episode of Aflutter at 8am - Currently in NSR - Xarelto 20mg Daily 3) Anxiety - Xanax at QHS prior to BiPAP use 4) Hypertension - Norvasc 5) GERD - Protonix 40mg daily 6) DM - Lantus 4 units - Sliding Scale Insulin 7) HLD - Atorvastatin 8) DVT Prophylaxis - Xarelto 20mg daily 9) Code Status - Full Resuscitation Reviewed: Pt Seen/Exam by Me History went into rapid a fib last night. converted to sinus this am. resting comfortably in bed this am no concerns Constitutional: denies: fever Respiratory: positive: short of breath (improving) Cardiovascular: denies chest pain Gastrointestinal/Abdominal: negative: abdominal pain General Appearance: no apparent distress Respiratory: decreased breath sounds Cardiovascular: regular rate, rhythm Neurologic/Psychiatric: alert, oriented x 3 Skin Characteristics: warm/dry Assessment/Plan I have reviewed the medical record and performed a history and physical examination of this patient today. I have discussed the case with Dr. Willard. The above note reflects my findings, conclusions, and recommendations.
[2016-09-17] MEDS: RIVAROXABAN 10 MG TAB PO SCH (17:05)
[2016-09-17] MEDS: TRAZODONE HCL 100 MG TAB PO SCH (20:42)
[2016-09-18] VITALS (13 sets, daily range): BP systolic 141–182; BP diastolic 45–74; PULSE 83–98; TEMP 36.6–37.1; O2SAT 93–100
[2016-09-18] MEDS: LEVALBUTEROL 1.25MG/0.5ML NEB INH SCH ×4 (01:56→19:51)
[2016-09-18] MEDS: IPRATROPIUM BROMIDE NEB SOLN 0.02% 2.5 ML VIAL INH SCH ×4 (01:56→19:51)
[2016-09-18] MEDS: LACTOBACILLUS ACIDOPHILUS (FLORANEX) TAB PO SCH ×3 (07:59→17:03)
[2016-09-18] MEDS: DILTIAZEM HCL 30 MG TAB PO SCH ×4 (08:00→22:20)
[2016-09-18] MEDS: DOCUSATE SODIUM 100 MG CAP PO SCH ×2 (08:00→22:21)
[2016-09-18] MEDS: PANTOprazole SOD 40 MG TAB PO SCH (08:00)
[2016-09-18] MEDS: ATORVASTATIN 40 MG TAB PO SCH (08:00)
[2016-09-18] MEDS: BusPIRone 15 MG TAB PO SCH ×3 (08:01→22:20)
[2016-09-18] MEDS: VENLAFAXINE HCL XR 75 MG CAPXR PO SCH (08:01)
[2016-09-18] MEDS: CHOLECALCIFEROL 1000 INTER.UNIT TAB PO SCH (08:01)
[2016-09-18] MEDS: VENLAFAXINE HCL XR 150 MG CAPXR PO SCH (08:01)
[2016-09-18] MEDS: AMIODARONE 200 MG TAB PO SCH (08:02)
[2016-09-18] MEDS: POLYETHYLENE (MIRALAX) 17 GM PACK PO SCH (08:02)
[2016-09-18] MEDS: BUDESONIDE/FORMOTEROL FUMARATE 160/4.5 60 PUFFS/INHALER INH SCH ×2 (08:03→22:19)
[2016-09-18] MEDS: FERROUS SULFATE 325 MG TAB PO SCH ×2 (08:04→17:03)
[2016-09-18] MEDS: TIOTROPIUM BROMIDE 5 PUFF/90 MCG INH INH SCH (08:04)
[2016-09-18] MEDS: EUCERIN CR 120 GM JAR EXT SCH ×2 (08:05→21:00)
[2016-09-18] MEDS: INSULIN ASPART 100 UNITS/ML 3 ML PEN SC SCH ×3 (08:08→17:13)
--- NOTE | 2016-09-18 10:39 | Pharmacy Progress Note ---
Glycemic Control: Progress Nt Date of Service September 18, 2016. Scope Glycemic Pharmacist consulted by Dr Trotter on 09/12/16 for glycemic control and to write orders per [facility] inpatient glycemic control protocol. Objective Accuchecks BSG (last 24hrs): Test 09/17/16 11:36 09/17/16 16:23 09/17/16 20:14 09/18/16 06:40 Bedside Glucose 175 mg/dl (70-90) 225 mg/dl (70-90) 155 mg/dl (70-90) 94 mg/dl (70-90) HbA1c: Test 09/11/16 05:47 Hemoglobin A1c 5.5 % (4.5-5.6) Recent Pertinent Medications Outpatient Anti-diabetic Regimen: * N/A - no prior diagnosis * A1c is in normal range (no diabetes) The patient is currently receiving: * Basal insulin: * N/A; Stopped 09/17/16 in accordance with steroid dose taper * Bolus Insulin: * NovoLog SQ AC/HS - Goal Range: Low 140 mg/dL - High 180 mg/dL - Correction Factor: 35 mg/dL/unit - Carb ratio of 1 unit per 15 grams CHO consumed Risk Factors for Insulin Resistance: * Steroids: -I-u-n-u-----N-k-l-r-o-l- -4-0-m-g- -I-V- -e-v-e-r-y- -8- -h-o-u-r-s- ------->- -K-z-q-f-i-u-s-o-n-e- -6-0-m-g- -P-O- -d-a-i-l-y- --> Prednisone 40mg PO daily given in the morning * Infection: Levofloxacin x 7 days; therapy completed 09/16/16 * Diet: tolerating well per CHO counts Assessment & Plan ASSESSMENT: * 76 yo F non-diabetic patient (per HbA1c) with steroid-induced hyperglycemia. * Steroids changed to once daily prednisone (the patient does take prednisone at home) and dose continue to taper * Insulin doses have been titrated with each step down in steroid dosing * AM fasting BSGs in range for non-diabetic --> Basal insulin stopped 09/17/16 * Hyperglycemia secondary to once daily prednisone is best covered by using once daily NPH or multiple injections of Novolog as these agents pharmacokinetics matches that of the hyperglycemic effects of once daily prednisone. * Pt w/o history of diabetes and has adequate glycemic control at baseline. Will lower goal range for tighter glycemic control * STOP HS check/coverage since hyperglycemia secondary to once daily prednisone minimal at this time after daily administration in the morning. PLAN FOR INPATIENT GLYCEMIC CONTROL: * Basal insulin: * No longer needed. Discontinued 09/17/16 * Bolus Insulin: * Continue conservative dosing to maintain BSG < 180mg/dl * Change NovoLog SQ to AC only (no more HS check) - LOWER Goal Range: 120mg/dL - 140mg/dL based on age, comorbidities and tight glycemic control at baseline - Correction Factor: 35 mg/dL/unit - Carb ratio of 1 unit per 15 grams CHO consumed RECOMMENDATIONS FOR DISCHARGE: * Likely, the patient will not require any diabetic medications upon discharge as A1c normal, (5.7%) * Pt only required insulin in house for severe steroid induced hyperglycemia * Please note that the plan above was derived based on current level of insulin resistance and hospital stress. These recommendations are appropriate for inpatient admission only. Plan of care upon discharge will need to be reassessed to avoid potential outpatient hypo/hyperglycemia. Thank you.
--- NOTE | 2016-09-18 12:27 | Family Medicine Progress Note ---
Progress Note Date of Service September 18, 2016. Subjective Pt evaluation today including: conversation w/ patient, physical exam, chart review, lab review, review of studies Pain: No pain reported this morning Voiding: no voiding problems The patient has no acute complaints this morning and resting comfortably in bed sitting upright. Her shortness of breath has continue to improve but she does state that she was breathing easier on 4L of oxygen. She appreciates that she was able to sleep while on the BiPAP overnight for approximately 4 hours. Constitutional: + fatigue, No chills, No fever, No sweats Respiratory: + shortness of breath, No cough, No sputum, No wheezing Cardiovascular: No chest pain, No palpitations Abdomen: No constipation, No diarrhea, No nausea, No pain, No vomiting Female : No dysuria Medications Current Inpatient Medications Medications (Trade) Dose Ordered Sig/Buddy Route Start Time Stop Time Status Last Admin Dose Admin Acetaminophen (Tylenol Tab) 650 mg Q4H PRN PO 09/10/16 15:00 10/10/16 14:59 Al Hydrox/Mg Hydrox/Simethicone (Maalox Max Susp) 15 ml Q4H PRN PO 09/10/16 15:00 10/10/16 14:59 09/18/16 03:12 15 ML Magnesium Hydroxide (Milk Of Magnesia Susp) 30 ml Q12H PRN PO 09/10/16 15:00 10/10/16 14:59 09/14/16 17:13 30 ML Ondansetron HCl (Zofran Inj) 4 mg Q6H PRN IV 09/10/16 15:00 10/10/16 14:59 Polyethylene (Miralax Powder Packet) 17 gm DAILY PRN PO 09/10/16 15:00 10/10/16 14:59 09/13/16 08:45 17 GM Levalbuterol (Xopenex 1.25MG/ 0.5ML Neb) 1.25 mg Q6R INH 09/10/16 15:00 10/10/16 14:59 09/18/16 07:09 1.25 MG Amiodarone HCl (Cordarone Tab) 100 mg DAILY PO 09/11/16 09:00 10/11/16 08:59 09/18/16 08:02 100 MG Atorvastatin Calcium (Lipitor Tab) 80 mg DAILY PO 09/11/16 09:00 10/11/16 08:59 09/18/16 08:00 80 MG Buspirone HCl (BusPAR TAB) 15 mg TID PO 09/10/16 21:00 10/10/16 20:59 09/18/16 08:01 15 MG Folic Acid (Folvite Tab) 1 mg DAILY PO 09/11/16 09:00 10/11/16 08:59 09/18/16 08:03 1 MG Lactobacillus Acidophilus (Floranex Tab) 1 tab TIDM PO 09/10/16 18:00 10/10/16 17:59 09/18/16 07:59 1 TAB Pantoprazole Sodium (Protonix Tab) 40 mg DAILY PO 09/11/16 09:00 10/11/16 08:59 09/18/16 08:00 40 MG Rivaroxaban (Xarelto Tab) 20 mg QDD PO 09/11/16 16:30 10/11/16 16:44 09/17/16 17:05 20 MG Trazodone HCl (Desyrel Tab) 200 mg HS PO 09/10/16 21:00 10/10/16 20:59 09/17/16 20:42 200 MG Venlafaxine HCl (effeXOR EXTENDED REL CAP) 75 mg DAILY PO 09/11/16 09:00 10/11/16 08:59 09/18/16 08:01 75 MG Venlafaxine HCl (effeXOR EXTENDED REL CAP) 150 mg DAILY PO 09/11/16 09:00 10/11/16 08:59 09/18/16 08:01 150 MG Cholecalciferol (Vitamin D Tab) 2,000 inter.unit DAILY PO 09/11/16 09:00 10/11/16 08:59 09/18/16 08:01 2,000 INTER.UNIT Ferrous Sulfate (Feosol Tab) 325 mg BIDM PO 09/10/16 18:00 10/10/16 17:59 09/18/16 08:04 325 MG Levalbuterol (Xopenex 1.25MG/ 0.5ML Neb) 1.25 mg Q2H PRN INH 09/10/16 15:30 10/10/16 15:29 09/15/16 12:24 1.25 MG Ipratropium [place] (Atrovent 0.02% 0.5MG/2.5ML Neb) 0.5 mg Q2H PRN INH 09/10/16 15:30 10/10/16 15:29 09/15/16 12:24 0.5 MG Glucose (Glucose 40% Gel) 15-30 GRAMS 15 GRAMS... UD PRN PO 09/10/16 15:30 10/10/16 15:29 Glucose (Glucose Chew Tab) 4-8 Tablets 4 Tabl... UD PRN PO 09/10/16 15:30 10/10/16 15:29 Dextrose (Dextrose 50% 50ML Syringe) 25-50ML OF 50% DW IV FOR... UD PRN IV 09/10/16 15:30 10/10/16 15:29 Glucagon (Glucagon Inj) 1 mg UD PRN SQ 09/10/16 15:30 10/10/16 15:29 Miscellaneous Information (Consult Glycemic Management Pharmacy) 1 ea UD PRN N/A 09/12/16 09:00 10/12/16 08:59 Docusate Sodium (coLACE CAP) 100 mg BID PO 09/12/16 21:00 10/12/16 20:59 09/18/16 08:00 100 MG Ipratropium [place] (Atrovent 0.02% 0.5MG/2.5ML Neb) 0.5 mg Q6R INH 09/13/16 15:00 10/13/16 14:59 09/18/16 07:09 0.5 MG Multi-Ingredient Ointment (Eucerin Unscented Cr) 1 appln BID EXT 09/13/16 10:00 10/13/16 09:59 09/18/16 08:05 1 APPLN Budesonide/ Formoterol Fumarate (Symbicort 160/ 4.5 Inh) 2 puffs BID INH 09/13/16 21:00 10/13/16 20:59 09/18/16 08:03 2 PUFFS Tiotropium [place] (Spiriva Handihaler Inhaler) 1 puff QAM INH 09/14/16 09:00 10/14/16 08:59 09/18/16 08:04 1 PUFF Polyethylene (Miralax Powder Packet) 17 gm DAILY PO 09/14/16 09:00 10/14/16 08:59 09/18/16 08:02 17 GM Bisacodyl (Dulcolax Supp) 10 mg DAILY PRN [place] 09/14/16 12:45 10/14/16 12:44 Prednisone (PredniSONE TAB) 40 mg QAM PO 09/16/16 09:00 10/16/16 08:59 09/18/16 08:00 40 MG Alprazolam (Xanax Tab) 0.25 mg HS PRN PO 09/16/16 08:30 10/16/16 08:29 09/16/16 20:58 0.25 MG Diltiazem HCl (Cardizem Tab) 30 mg QID PO 09/17/16 09:00 10/17/16 08:59 09/18/16 08:00 30 MG Insulin Aspart (novoLOG ASPART) SLIDING SCALE If C... AC SC 09/18/16 11:00 10/18/16 10:59 Objective Vital Signs Date Time Temp Pulse Resp B/P Pulse Ox O2 Delivery O2 Flow Rate FiO2 09/18/16 08:29 36.7 98 18 141/45 93 Nasal Cannula 3.0 09/18/16 08:00 97 Nasal Cannula 4.0 35 09/18/16 07:09 83 18 97 Nasal Cannula 4.0 09/18/16 04:00 36.7 92 18 143/72 96 09/18/16 04:00 Nasal Cannula 3.0 09/18/16 01:57 83 18 97 BiPAP/CPAP 09/18/16 00:02 36.7 93 18 146/71 98 BiPAP 09/17/16 23:59 BiPAP 09/17/16 23:10 98 35 09/17/16 20:00 Nasal Cannula 3.0 09/17/16 19:38 37.0 85 18 167/67 98 Nasal Cannula 4.0 09/17/16 19:15 93 16 98 Nasal Cannula 3.0 09/17/16 16:01 37.3 100 18 149/60 95 Nasal Cannula 3.0 09/17/16 15:19 100 Nasal Cannula 3.0 09/17/16 14:12 90 16 97 Nasal Cannula 4.0 09/17/16 12:23 37.0 104 18 157/57 93 Nasal Cannula 09/17/16 12:00 100 Nasal Cannula 3.0 Physical Exam General Appearance: WD/WN, no apparent distress Eyes: normal inspection, sclerae normal ENT: pharynx normal Respiratory/Chest: chest non-tender, + decreased breath sounds, + wheezing ( scattered expiratory wheezing) Cardiovascular: regular rate, rhythm, no edema, no gallop, no murmur Abdomen: normal bowel sounds, non tender, soft Neurologic/Psychiatric: alert, normal mood/affect, oriented x 3 Laboratory Results Results Past 24 Hours Test 09/17/16 16:23 09/17/16 20:14 09/18/16 06:40 09/18/16 11:29 Range/Units Bedside Glucose 225 155 94 172 70-90 mg/dl Assessment and Plan Patient is a 76 year old female with a PMH of Afib, COPD, DM, HLD, and GERD that presents with a COPD exacerbation 1) Acute on chronic hypoxic hypercarbic respiratory failure 2/2 COPD exacerbation - Currently improving shortness of breath with overnight BiPAP (4 hours) and daytime nasal cannula (3L) - Discussed nighttime ABG and overnight pulse oximetry with Respiratory Therapy in order to arrange for home BiPAP - Completed 7 days course of Levaquin - Currently on 40mg PO Prednisone (transitioned from IV methylprednisolone) - Symbicort 2 Puffs BID, Atrovent 0.5mg q2h, Spiriva 1 puff daily - Incentive Spirometry - Sputum Culture - Contamination and Squamous cells 2) Atrial Flutter - Currently in NSR - Episode of Afib on night of 09/16 that was treated with Cardizem 30mg, went into NSR, episode of Aflutter at 8am on 09/17, then in NSR since - Amiodarone 100mg daily - Xarelto 20mg Daily 3) Anxiety - Xanax QHS prior to BiPAP use 4) Hypertension - Norvasc 5) GERD - Protonix 40mg daily 6) DM - Sugars have been well controlled (94 this morning) - Sliding Scale Insulin 7) HLD - Atorvastatin 8) DVT Prophylaxis - Xarelto 20mg daily 9) Code Status - Full Resuscitation Reviewed: Pt Seen/Exam by Me History did well overnight. used bipap for 4hrs Constitutional: denies: fever Respiratory: positive: short of breath (minimal) Cardiovascular: denies chest pain Gastrointestinal/Abdominal: negative: abdominal pain General Appearance: no apparent distress Respiratory: decreased breath sounds, other (conversational) Cardiovascular: regular rate, rhythm Gastrointestinal: soft Neurologic/Psychiatric: alert, oriented x 3 Skin Characteristics: warm/dry Assessment/Plan I have reviewed the medical record and performed a history and physical examination of this patient today. I have discussed the case with Dr. Willard. The above note reflects my findings, conclusions, and recommendations. Will need bipap arranged for discharge
[2016-09-18] MEDS: RIVAROXABAN 10 MG TAB PO SCH (17:04)
[2016-09-18 19:30] LABS: ARTERIAL BLD GAS O2 SATURATION 93.1 % (90-95); ARTERIAL BLOOD GAS BASE EXCESS 10.1 mEq/L (-9-1.8); ARTERIAL BLOOD GAS HCO3 36 mmol/L (19-24); ARTERIAL BLOOD GAS PO2 74 mm/Hg (80-95); ARTERIAL BLOOD GAS pH 7.43 (7.35-7.45)
[2016-09-18 19:34] LABS: ALLEN TEST POS (POS); O2 ADMINISTRATION 3L
[2016-09-18] MEDS: TRAZODONE HCL 100 MG TAB PO SCH (22:21)
[2016-09-19] VITALS (13 sets, daily range): BP systolic 132–165; BP diastolic 49–71; PULSE 87–96; TEMP 36.7–37.2; O2SAT 93–98
[2016-09-19] MEDS: IPRATROPIUM BROMIDE NEB SOLN 0.02% 2.5 ML VIAL INH SCH ×4 (01:59→19:32)
[2016-09-19] MEDS: LEVALBUTEROL 1.25MG/0.5ML NEB INH SCH ×4 (01:59→19:32)
--- NOTE | 2016-09-19 07:06 | Family Medicine Progress Note ---
Progress Note Date of Service September 19, 2016. Subjective Pt evaluation today including: conversation w/ patient, physical exam, chart review, lab review Patient well this morning, she denies acute overnight events. Says her breathing feels like she is at baseline. She has no discomfort currently. Tolerating diet and sleeping well. Constitutional: No chills, No fever Respiratory: No cough, No shortness of breath Cardiovascular: No chest pain, No edema, No palpitations Abdomen: No GI bleeding, No constipation, No diarrhea, No nausea, No pain, No vomiting Female : No dysuria, No hematuria Objective Vital Signs Date Time Temp Pulse Resp B/P Pulse Ox O2 Delivery O2 Flow Rate FiO2 09/19/16 04:00 98 Nasal Cannula 4.0 09/19/16 03:55 36.8 88 22 143/49 98 Nasal Cannula 4.0 09/18/16 23:59 Nasal Cannula 4.0 09/18/16 23:30 36.8 92 20 160/74 100 Nasal Cannula 4.0 09/18/16 20:00 Nasal Cannula 3.0 09/18/16 19:56 93 16 96 Nasal Cannula 3.0 09/18/16 19:48 37.1 93 18 157/74 93 Nasal Cannula 3.0 09/18/16 16:00 Nasal Cannula 3.0 09/18/16 15:58 37.0 98 18 182/65 94 Nasal Cannula 3.0 09/18/16 14:18 83 18 98 Nasal Cannula 4.0 09/18/16 12:06 97 Nasal Cannula 4.0 35 09/18/16 12:03 36.6 93 18 152/54 94 Nasal Cannula 09/18/16 08:29 36.7 98 18 141/45 93 Nasal Cannula 3.0 09/18/16 08:00 97 Nasal Cannula 4.0 35 09/18/16 07:09 83 18 97 Nasal Cannula 4.0 Physical Exam General Appearance: WD/WN, no apparent distress ENT: hearing grossly normal Neck: supple Respiratory/Chest: normal breath sounds, no respiratory distress, no accessory muscle use, + wheezing (scattered) Cardiovascular: regular rate, rhythm, no murmur Abdomen: normal bowel sounds, non tender, soft Extremities: normal inspection, no pedal edema, no calf tenderness Neurologic/Psychiatric: alert, normal mood/affect, oriented x 3 Skin: normal color, warm/dry, no rash Laboratory Results Results Past 24 Hours Test 09/19/16 06:32 09/19/16 08:08 09/19/16 11:30 09/19/16 16:03 Range/Units Bedside Glucose 102 148 253 70-90 mg/dl Arterial Blood pH 7.41 7.35-7.45 Arterial Blood Partial Pressure CO2 55 35-46 mmHg Arterial Blood Partial Pressure O2 79 80-95 mm/Hg Arterial Blood HCO3 34 19-24 mmol/L Arterial Blood Oxygen Saturation 94.3 90-95 % Arterial Blood Base Excess 8.5 -9-1.8 mEq/L Arterial Blood Gas Delivery 4 L Red Test POS POS Test 09/19/16 20:38 Range/Units Bedside Glucose 200 70-90 mg/dl Assessment and Plan 76 year old female with a PMH of Afib, COPD, DM, HLD, and GERD that presents with a COPD exacerbation Acute on chronic hypoxic hypercarbic respiratory failure 2/2 COPD exacerbation - Currently improving shortness of breath with overnight BiPAP (4 hours) and daytime nasal cannula (3L). Sputum Culture was contaminated. Completed 7 days course of Levaquin. Transitioned from IV steroids to PO, with ongoing weaning, which is being well tolerated - 30mg PO Prednisone - Symbicort 2 Puffs BID, Atrovent 0.5mg q2h, Spiriva 1 puff daily - Incentive Spirometry Atrial Flutter - Currently in NSR. Episode of Afib on night of 09/16 that was treated with Cardizem 30mg, went into NSR, episode of Aflutter at 8am on 09/17, then in NSR since - Amiodarone 100mg daily - Cardizem changed to long acting dose 180mg daily - Xarelto 20mg Daily Anxiety - Xanax QHS prior to BiPAP use Hypertension - Cardizem increased to 180mg daily GERD - Protonix 40mg daily DM - Sugars have been well controlled (94 this morning) - insulin sliding scale insulin HLD - Atorvastatin 80mg daily DVT Prophylaxis - Xarelto 20mg daily Code Status - Full Resuscitation Dispo - Awaiting approval for home BIPAP - Follow up with Dr. Pradhan on discharge Continued [facility] stay due to: other Discharge planning: home Resident Tracking Resident Involvement: Resident Care Provided Care Provided: Adult Hospital Medicine Reviewed: Pt Seen/Exam by Me History Resident Physician Supervision Note: I interviewed and examined the patient. Discussed with Dr. Aviles and agree with findings and plan as documented in the note. Any exceptions or clarifications are listed here: Pt feeling much better, tolerating BiPAP at nighttime. Tele and vitals reviewed NAD RRR no mgr CTAB no wcr Ext no edema 76 yo female with COPD exacerbation and acute on chronic hypoxemic and hypercarbic resp failure. Qualifies for BiPAP for nocturnal use at home, awaiting delivery of that prior to discharge. COntinue steroids, finished abx, continue amiodarone and Xarelto for A-fib, po diltiazem for Afib rate control and for HTN which may be exacerbated by steroid use Documented By: Susie Chan
[2016-09-19] MEDS: EUCERIN CR 120 GM JAR EXT SCH ×2 (08:20→21:51)
[2016-09-19] MEDS: FERROUS SULFATE 325 MG TAB PO SCH ×2 (08:20→17:02)
[2016-09-19] MEDS: LACTOBACILLUS ACIDOPHILUS (FLORANEX) TAB PO SCH ×3 (08:20→17:02)
[2016-09-19] MEDS: BusPIRone 15 MG TAB PO SCH ×3 (08:21→21:52)
[2016-09-19] MEDS: BUDESONIDE/FORMOTEROL FUMARATE 160/4.5 60 PUFFS/INHALER INH SCH ×2 (08:21→21:52)
[2016-09-19] MEDS: DILTIAZEM HCL 30 MG TAB PO SCH ×2 (08:21→12:58)
[2016-09-19] MEDS: DOCUSATE SODIUM 100 MG CAP PO SCH ×2 (08:21→21:52)
[2016-09-19] MEDS: AMIODARONE 200 MG TAB PO SCH (08:22)
[2016-09-19] MEDS: VENLAFAXINE HCL XR 150 MG CAPXR PO SCH (08:22)
[2016-09-19] MEDS: VENLAFAXINE HCL XR 75 MG CAPXR PO SCH (08:22)
[2016-09-19] MEDS: POLYETHYLENE (MIRALAX) 17 GM PACK PO SCH (08:23)
[2016-09-19] MEDS: CHOLECALCIFEROL 1000 INTER.UNIT TAB PO SCH (08:23)
[2016-09-19] MEDS: PANTOprazole SOD 40 MG TAB PO SCH (08:23)
[2016-09-19] MEDS: ATORVASTATIN 40 MG TAB PO SCH (08:23)
[2016-09-19 08:28] LABS: ARTERIAL BLD GAS O2 SATURATION 94.3 % (90-95); ARTERIAL BLOOD GAS BASE EXCESS 8.5 mEq/L (-9-1.8); ARTERIAL BLOOD GAS HCO3 34 mmol/L (19-24); ARTERIAL BLOOD GAS PO2 79 mm/Hg (80-95); ARTERIAL BLOOD GAS pH 7.41 (7.35-7.45)
[2016-09-19] MEDS: INSULIN ASPART 100 UNITS/ML 3 ML PEN SC SCH ×3 (08:29→17:06)
[2016-09-19 08:30] LABS: ALLEN TEST POS (POS); O2 ADMINISTRATION 4 L
[2016-09-19] MEDS: TIOTROPIUM BROMIDE 5 PUFF/90 MCG INH INH SCH (09:17)
[2016-09-19] MEDS ORDERED: DILTIAZEM HCL 120 MG CAPCR PO ONE (12:40)
[2016-09-19] MEDS: RIVAROXABAN 10 MG TAB PO SCH (17:03)
[2016-09-19] MEDS: TRAZODONE HCL 100 MG TAB PO SCH (21:52)
[2016-09-20 01:45] VITALS: PULSE 98; O2SAT 98
[2016-09-20] MEDS: IPRATROPIUM BROMIDE NEB SOLN 0.02% 2.5 ML VIAL INH SCH ×3 (01:45→14:04)
[2016-09-20] MEDS: LEVALBUTEROL 1.25MG/0.5ML NEB INH SCH ×3 (01:45→14:04)
[2016-09-20 04:00] VITALS: BP 148/69; PULSE 94; TEMP 36.6; O2SAT 97
[2016-09-20 06:55] VITALS: PULSE 91; O2SAT 96
[2016-09-20] MEDS: LACTOBACILLUS ACIDOPHILUS (FLORANEX) TAB PO SCH ×2 (08:05→11:52)
[2016-09-20] MEDS: ATORVASTATIN 40 MG TAB PO SCH (08:05)
[2016-09-20] MEDS: VENLAFAXINE HCL XR 150 MG CAPXR PO SCH (08:06)
[2016-09-20] MEDS: AMIODARONE 200 MG TAB PO SCH (08:06)
[2016-09-20] MEDS: VENLAFAXINE HCL XR 75 MG CAPXR PO SCH (08:06)
[2016-09-20] MEDS: CHOLECALCIFEROL 1000 INTER.UNIT TAB PO SCH (08:07)
[2016-09-20 08:08] VITALS: BP 136/75; PULSE 98; TEMP 36.9; O2SAT 97
[2016-09-20] MEDS: BusPIRone 15 MG TAB PO SCH ×2 (08:08→11:52)
[2016-09-20] MEDS: BUDESONIDE/FORMOTEROL FUMARATE 160/4.5 60 PUFFS/INHALER INH SCH (08:09)
[2016-09-20] MEDS: DOCUSATE SODIUM 100 MG CAP PO SCH (08:09)
[2016-09-20] MEDS: TIOTROPIUM BROMIDE 5 PUFF/90 MCG INH INH SCH (08:09)
[2016-09-20] MEDS: FERROUS SULFATE 325 MG TAB PO SCH (08:10)
[2016-09-20] MEDS: PANTOprazole SOD 40 MG TAB PO SCH (08:10)
[2016-09-20] MEDS: POLYETHYLENE (MIRALAX) 17 GM PACK PO SCH (08:10)
[2016-09-20] MEDS: INSULIN ASPART 100 UNITS/ML 3 ML PEN SC SCH (08:12)
[2016-09-20] MEDS: EUCERIN CR 120 GM JAR EXT SCH (08:14)
[2016-09-20] MEDS ORDERED: DILTIAZEM HCL 180 MG CAPCR PO SCH (09:00)
[2016-09-20] MEDS ORDERED: DILTIAZEM HCL 120 MG CAPCR PO SCH (09:00)
[2016-09-20] MEDS ORDERED: INSULIN ASPART 100 UNITS/ML 3 ML PEN SC SCH (11:00)
--- NOTE | 2016-09-20 11:20 | Pharmacy Progress Note ---
Glycemic Control: Progress Nt Date of Service September 20, 2016. Scope Glycemic Pharmacist consulted by Dr. Trotter on 09/12/16 for glycemic control and to write orders per [facility] inpatient glycemic control protocol. Objective Accuchecks BSG (last 24hrs): Test 09/19/16 11:30 09/19/16 16:03 09/19/16 20:38 09/20/16 06:46 Bedside Glucose 148 mg/dl (70-90) 253 mg/dl (70-90) 200 mg/dl (70-90) 115 mg/dl (70-90) HbA1c: Test 09/11/16 05:47 Hemoglobin A1c 5.5 % (4.5-5.6) Recent Pertinent Medications Outpatient Anti-diabetic Regimen: * None * A1c = 5.5 % on 09/11/16, indicating normal BSGs. Risk Factors for Insulin Resistance: * Steroids: Prednisone 30mg daily (maintained on steroids as outpatient) * Diet: DM2 Assessment & Plan ASSESSMENT: * ADA & AACE recommend a goal blood sugar range 140-180 mg/dl for the majority of critically ill & non-critically ill patients. However, more stringent targets may be selected in individual cases. 09/18/16: * 76 yo F non-diabetic patient (per HbA1c) with steroid-induced hyperglycemia. * Steroids changed to once daily prednisone (the patient does take prednisone at home) and dose continue to taper * Insulin doses have been titrated with each step down in steroid dosing * AM fasting BSGs in range for non-diabetic --> Basal insulin stopped 09/17/16 * Hyperglycemia secondary to once daily prednisone is best covered by using once daily NPH or multiple injections of Novolog as these agents pharmacokinetics matches that of the hyperglycemic effects of once daily prednisone. * Pt w/o history of diabetes and has adequate glycemic control at baseline. Will lower goal range for tighter glycemic control * STOP HS check/coverage since hyperglycemia secondary to once daily prednisone minimal at this time after daily administration in the morning. 09/20/16: * BSG control is decent, however, BSGs are trending upward in the evening - especially subsequent to Lantus discontinuation. * This pattern can likely be attributed to the influence of prednisone on insulin resistance leading to worsening BSG control during the latter half of the day. * In response, will tighten Novolog CF/CR with lunch and supper. * Basal insulin not needed at this time as I suspect it would overcorrect BSGs leading to hypoglycemia. PLAN FOR INPATIENT GLYCEMIC CONTROL: * No Lantus * Novolog AC * BF: Continue correction factor of 35 mg/dl/unit * BF: Continue carb ratio of 1 unit per 15 grams CHO consumed * Lunch + supper: Tighten correction factor to 30 mg/dl/unit * Lunch + supper: Tighten carb ratio to 1 unit per 10 grams CHO consumed * [place] lower end of goal range to Low 110 mg/dL - High 140 mg/dL * Please note that the plan above was derived based on current level of insulin resistance and hospital stress. These recommendations are appropriate for inpatient admission only. Plan of care upon discharge will need to be reassessed to avoid potential outpatient hypo/hyperglycemia. Thank you.
[2016-09-20] MEDS ORDERED: CRDCD180 PO (13:45)
[2016-09-20] MEDS ORDERED: ECRCR EXT (13:45)
[2016-09-20] MEDS ORDERED: XNX25 PO (13:45)
[2016-09-20] MEDS ORDERED: SPRIN INH (13:45)
[2016-09-20] MEDS ORDERED: PRD20 PO (13:45)
--- NOTE | 2016-09-20 13:53 | Discharge Instructions ---
Discharge Instructions Date of Service September 20, 2016. Admission Reason for Admission: Acute On Chronic Respiratory Failure Discharge Discharge Diagnosis / Problem: COPD exacerbation Discharge Goals Goal(s): Improve function, Improve disease control, Diagnostic testing, Therapeutic intervention Activity Recommendations Activity Limitations: resume your previous activity . Instructions / Follow-Up Instructions / Follow-Up You were admitted to hospital with shortness of breath, more so than at your baseline. Your symptoms were treated with a course of antibiotics and high dose steroid. It was also found that your breathing and oxygen levels benefitted from BIPAP. On discharge, please continue the following regimen - Use BIPAP every night. You have been given a 10 day supply of Xanax (helps with anxiety) to help you adjust with the machine, but eventually, you should become accustomed to the mask, and using it nightly will help your body receive improved oxygenation while asleep. - Continue the prednisone regimen with slow decrease as follows. You will take 30mg (1.5 tablets) for 3 days, then 20mg (1 tablet) for the next 3 days, then 10mg (half tablet) for the next 3 days, and then the course is completed. - Continue your Symbicort inhaler (provided to you in hospital), as well as your Spiriva and Combivent inhalers. As cost may be an issue, it would be recommended to discuss alternative options with your PCP and train operations manager. - Please follow up with your PCP and train operations manager. The appointments have been scheduled for you, but if there is any issue with your ability to attend the appointments, please call the respective office(s) to reschedule. A new medication, Cardizem has been added to your medical regimen. It works to both control your heart rate (which can sometimes be fast in individuals with atrial fibrillation) as well as improve blood pressure. - Please see your PCP in 1-2 weeks to check your blood pressure. Adjustment to the dose of medication may be necessary. Please continue all other home medications as is If you develop worsening shortness of breath, please call your PCP or train operations manager for medical advice. Current Hospital Diet Patient's current hospital diet: Diabetes Type 2 Diet Discharge Diet Recommended Diet: Low Sodium Diet (2gm Na) Pending Studies Studies pending at discharge: no Laboratory Results Hemoglobin A1c Test 09/11/16 05:47 Range/Units Estimated Average Glucose 111 mg/dl Hemoglobin A1c 5.5 4.5-5.6 % Medical Emergencies . Who to Call and When: Medical Emergencies: If at any time you feel your situation is an emergency, please call 911 immediately. . Non-Emergent Contact Non-Emergency issues call your: Primary Care Provider, Drier Operator Head . . "Provider Documentation" section prepared by Anila Aviles. . VTE Core Measure Inpt VTE Proph given/why not?: Other Anticoagulation (Xarelto) Resident Tracking Resident Involvement: Resident Care Provided Care Provided: Adult Hospital Medicine
[2016-09-20 14:04] VITALS: PULSE 97; O2SAT 96
[2016-09-20 14:24] VITALS: BP 136/75; PULSE 97; TEMP 36.9; O2SAT 96
--- NOTE | 2016-09-20 15:22 | Discharge Summary ---
Discharge Summary Date of Service September 20, 2016. (Alka. Aviles MD) Discharge Summary Admission Date: Sep 10, 2016 at 15:16 Discharge Date: September 20, 2016 Discharge Disposition: Home Principal Diagnosis: COPD exacerbation Immunizations: Have You Had Influenza Vaccine: Yes Influenza Vaccine Date: Apr 12, 2013 History of Tetanus Vaccine?: Unknown Tetanus Immunization Date: Nov 09, 2007 History of Pneumococcal: Yes Pneumococcal Date: Mar 10, 2011 History of Hepatitis B Vaccine: No (Alka. Aviles MD) Problems/Secondary Diagnoses: Paroxysmal Atrial fibrillation/flutter COPD DMII HLD GERD prison anticoagulation Anxiety Hypertension (Susie Chan MD) Medication Reconciliation New Medications: Alprazolam (Alprazolam) 0.25 Mg Tab 0.25 MG PO HS PRN for Anxiety/Agitation for 10 Days, #10 TAB Diltiazem HCl (Diltiazem HCl ER) 180 Mg Capcr 180 MG PO QAM for 30 Days, #30 TABS 2 Refills Eucerin (Hydrocerin) 360 Appln/120 Gm Cr 1 APPLN EXT BID, #1 TUBE Prednisone (Prednisone) 20 Mg Tab 30 MG PO QAM, #9 TAB 30mg (1 and half tablet) x 3 days 20mg (1 tab) x 3 days 10mg (half tablet) x 3 day Then discontinue Tiotropium [place] (Spiriva Handihaler) 5 Puff/90 Mcg Aerp 1 PUFF INH QAM for 30 Days, #30 TAB 2 Refills Continued Medications: Amiodarone HCl (Amiodarone HCl) 200 Mg Tab 100 MG PO DAILY for 30 Days, #15 TAB Atorvastatin (Lipitor) 80 Mg Tab 80 MG PO DAILY Budesonide/Formoterol Fumarate (Symbicort 160-4.5 Mcg/Act) 60 Puffs/Inhaler Aero 2 PUFFS INH BID Buspirone HCl (Buspirone HCl) 15 Mg Tab 15 MG PO TID Cholecalciferol (Vitamin D) 2,000 Unit Tab 2000 INTER.UNIT PO DAILY Ferrous Sulfate (Kp Ferrous Sulfate) 325 Mg Tab 1 TAB PO BID Folic Acid (Folvite) 1 Mg Tab 1 MG PO DAILY Guaifenesin Ext Rel (Mucinex Ext Rel) 600 Mg Tabcr 600 MG PO Q12 Ipratropium-Albuterol (Combivent Respimat) 120 Puffs/Inhaler Aero 1 PUFFS INH QID for 30 Days Lactobacillus Acidophilus (Floranex) 1 Tab Tab 1 TAB PO TIDM, #30 TAB Oxygen (Oxygen) Gas 2 LITERS NA UD Pantoprazole (Pantoprazole Sodium) 40 Mg Tab 40 MG PO DAILY Rivaroxaban (Xarelto) 20 Mg Tab 20 MG PO DAILY, TAB Trazodone HCl (Trazodone HCl) 100 Mg Tab 200 MG PO HS Venlafaxine Hcl (Effexor Extended Rel) 150 Mg Capcr 150 MG PO DAILY TAKE WITH 75MG = 225 MG TOTAL Venlafaxine Hcl (Effexor Extended Rel) 75 Mg Capcr 75 MG PO DAILY TAKE WITH 150 MG = 225MG TOTAL Discontinued Medications: Prednisone (Prednisone) 20 Mg Tab 40 MG PO BIDM, #15 TAB take 40 mg twice daily for 2 days then take 20 mg twice daily for 2 days then take 20 mg once daily for 2 days then take 10 mg once daily for 2 days then stop Discharge Exam Patient well, no acute issues or concerns, keen for home. Review of Systems: Constitutional: No chills, No fever Respiratory: No cough, No shortness of breath, No wheezing Cardiovascular: No PND, No chest pain, No edema, No orthopnea, No palpitations Abdomen: No nausea, No pain, No vomiting Genitourinary - Female: No dysuria, No hematuria Physical Exam: General Appearance: WD/WN, no apparent distress Eyes: normal inspection ENT: hearing grossly normal Neck: supple, no JVD Respiratory/Chest: lungs clear, normal breath sounds, no respiratory distress, no accessory muscle use, + wheezing (significantly improved) Cardiovascular: regular rate, rhythm, no murmur Abdomen / GI: normal bowel sounds, non tender, soft Extremities: normal inspection, no calf tenderness, no pedal edema Neurologic/Psychiatric: alert, normal mood/affect, oriented x 3 Skin: normal color, warm/dry, no rash (Alka. Aviles MD) Hospital Course 76 year old female with a PMH of Afib, COPD, DM, HLD, and GERD that presents with a COPD exacerbation Acute on chronic hypoxic hypercarbic respiratory failure 2/2 COPD exacerbation - Improved shortness of breath with overnight BiPAP and daytime baseline 3-4 L of oxygen via nasal cannula (3L). - Sputum Culture was contaminated. - Completed 7 days course of Levaquin. - Transitioned from IV steroids to PO, with ongoing weaning, which is being well tolerated. - On discharge: - Patient approved for home BIPAP to be used every night. 10 day supply of xanax provided to help patient adjust to wearing mask - Prednisone taper will continue: 30mg x 3 days, 20mg x 3 days, 10mg x 3 days , then stop. - Will continue inhalers Symbicort, Combivent, Spiriva and Incentive Spirometry - Follow up to be arranged with brewer helper, Dr. Pradhan. Patient keen to discuss alternative cost effective inhalers. Atrial Flutter - Episode of Afib on night of 09/16 that was treated with Cardizem 30mg, went into NSR, episode of Aflutter at 8am on 09/17, then in NSR since - On discharge - Continue home meds: amiodarone 100mg daily and Xarelto 20mg Daily - Cardizem to be continued at long acting dose 180mg daily Anxiety - Xanax QHS prior to BiPAP use, with 10 tablets prescribed at time of discharge Hypertension - Cardizem started for cardiac pulse rate control and then titrated up to 180mg daily for BP control - On discharge: - Follow up with PCP advised to assess blood pressure and modify medication as necessary GERD - Protonix 40mg daily DM - Sugars have been well controlled while in hospital and on prednisone with insulin sliding scale insulin HLD - Atorvastatin 80mg daily DVT Prophylaxis - Anticoagulated already with Xarelto 20mg daily Code Status - Full Resuscitation Total Time Spent: Less than 30 minutes This includes examination of the patient, discharge planning, medication reconciliation, and communication with other providers. (Alka. Aviles MD) Discharge Instructions Please refer to the electronic Patient Visit Report (Discharge Instructions) for additional information. (Alka. Aviles MD) Additional Copies To Arben Pradhan DO; Ray Pereira III, CRNP Resident Tracking Resident Involvement: Resident Care Provided Care Provided: Adult [facility] (Alka. Aviles MD) Reviewed: Pt Seen/Exam by Me (Susie Chan MD) History Resident Physician Supervision Note: I interviewed and examined the patient. Discussed with Dr. Aviles and agree with findings and plan as documented in the note. Any exceptions or clarifications are listed here: Pt feeling much better, tolerating BiPAP at nighttime. Tele and vitals reviewed NAD RRR no mgr CTAB no wcr Ext no edema 76 yo female with COPD exacerbation and acute on chronic hypoxemic and hypercarbic resp failure. Qualifies for BiPAP for nocturnal use at home, there has been suxxessful delivery of that to her home today prior to discharge. COntinue steroids, finished abx, continue amiodarone and Xarelto for A-fib, po diltiazem for Afib rate control and for HTN which may be exacerbated by steroid use Documented By: Susie Chan (Susie Chan MD)
[2016-09-21] MEDS ORDERED: INSULIN ASPART 100 UNITS/ML 3 ML PEN SC SCH (07:00)
[2016-12-19] MEDS ORDERED: PRED10TA PO (09:52)
[2016-12-19] MEDS ORDERED: IPRA1AER2 INH (09:52)
[2016-12-19] MEDS ORDERED: UMEC1INH INH (09:52)
[2016-12-19] MEDS ORDERED: BUDE0.5S INH (09:52)
[2016-12-19] MEDS ORDERED: LVQ750 PO (09:52)
== END 2016-09-20 15:10 | disposition home health service (06) | DRG 189 ==
LOC: ENRESERVTM → ENRESERVDT → C.EDB 11:51 → C.2E 15:16 → C.MSICU 20:43 → C.2E 09-14 17:34
PROVIDERS: ADMIT Internal Medicine; ATTEND Family Medicine
DX: J96.21 Acute and chronic respiratory failure with hypoxia (principal); J44.1 Chronic obstructive pulmonary disease with (acute) exacerbation; I48.92 Unspecified atrial flutter; E87.4 Mixed disorder of acid-base balance; F41.9 Anxiety disorder, unspecified; I10 Essential (primary) hypertension; K21.9 Gastro-esophageal reflux disease without esophagitis; E11.9 Type 2 diabetes mellitus without complications; E78.5 Hyperlipidemia, unspecified; J96.22 Acute and chronic respiratory failure with hypercapnia; Z83.3 Family history of diabetes mellitus; Z82.49 Family history of ischemic heart disease and other diseases of the circulatory system; Z87.891 Personal history of nicotine dependence; Z99.81 Dependence on supplemental oxygen; Z79.52 Long term (current) use of systemic steroids; Z79.02 Long term (current) use of antithrombotics/antiplatelets; I48.0 Paroxysmal atrial fibrillation; E88.81 Metabolic syndrome and other insulin resistance; G47.00 Insomnia, unspecified; D64.9 Anemia, unspecified; B99.9 Unspecified infectious disease

== ENCOUNTER → 2016-09-28 | Outpatient (CLI) | payer OTHER, MEDICARE ==
[~2016-09-28] MED LIST changes: +AMIO0.1T PO; +ASPI81TA28 PO; +BUDE0.5S INH; +CRDCD180 PO; +DILT-113 PO; +ECRCR EXT; +FLNIN; +FLUT0.15 NAE; +FLUT1INH INH; +GUAI1TAB55 PO; +LACT1TAB4 PO; +LVQ750 PO; +MOML PO; +MOMLX PO; +MRLP17X PO; +MRP25 PO; +POLY335019 PO; +PRAM0.256 PO; +PRED10TA PO; +SALI0.6510; +SALI0.6510 NAE; +SKINCRE34 TOP; +SPRIN INH; +SPRIN/30 INH; +UMEC1INH INH; +XNX25 PO
[2016-09-28 17:30] LABS: BASO % 0.2 %; BASO ABS # 0.02 K/uL (0-0.2); COMPLETE YES; EOS % 0.1 %; HEMATOCRIT 29.8 % (37-47); IG% 0.3 %; LYMPH % 5.4 %; LYMPH ABS # 0.53 K/uL (1.2-3.4); MEAN CELL VOLUME 97.7 fL (80-100); MEAN CORPUSCULAR HEMOGLOBIN 29.5 pg (25-34); MEAN CORPUSCULAR HGB CONC 30.2 g/dl (32-36); MEAN PLATELET VOLUME 11.3 fL (7.4-10.4); MONO % 2.5 %; NEUT % 91.5 %; PLATELET COUNT 198 K/uL (130-400); RED BLOOD COUNT 3.05 M/uL (4.2-5.4); WHITE BLOOD COUNT 9.82 K/uL (4.8-10.8)
== END | disposition home or self-care (01) ==
LOC: C.LABBFT 11:16
PROVIDERS: ATTEND Family Medicine
DX: D64.9 Anemia, unspecified (principal)

== ENCOUNTER 2016-10-18 16:28 | Inpatient (IN) | payer OTHER, MEDICARE ==
[~2016-10-18] VITALS: Ht 160 cm; Wt 93.8 kg
[2016-10-18] VITALS (9 sets, daily range): BP systolic 129–149; BP diastolic 48–62; PULSE 72–94; TEMP 36.8–37; O2SAT 94–99; Ht 160 cm; Wt 93.8 kg
[~2016-10-18 16:28] MED LIST changes: -AMIO0.1T PO; -ASPI81TA28 PO; -BUDE0.5S INH; -DILT-113 PO; -FLNIN; -FLUT0.15 NAE; -FLUT1INH INH; -GUAI1TAB55 PO; -LACT1TAB4 PO; -LVQ750 PO; -MOML PO; -MOMLX PO; -MRLP17X PO; -MRP25 PO; -POLY335019 PO; -PRAM0.256 PO; -PRED10TA PO; -SALI0.6510; -SALI0.6510 NAE; -SKINCRE34 TOP; -SPRIN/30 INH; -UMEC1INH INH
[2016-10-18] MEDS ORDERED: SODIUM CHLORIDE 0.9% 1000ML 500 ML IV STA (16:59)
[2016-10-18] MEDS ORDERED: PANTOprazole INJ 80 MG in DEXTROSE 5% 100ML IV ONE (17:15)
--- NOTE | 2016-10-18 17:24 | DIAGNOSTIC IMAGING REPORT ---
SINGLE VIEW CHEST CLINICAL HISTORY: GI bleeding. FINDINGS: An AP, portable, upright chest radiograph is compared to chest x-ray and chest CT dated 09/13/2016. The examination is degraded by portable technique and patient rotation. The cardiomediastinal silhouette is unremarkable. There is atherosclerotic calcification of the thoracic aorta. Chronic interstitial thickening is unchanged. The lungs and pleural spaces are clear. No pneumothorax is seen. The skeletal structures are osteopenic. The bony thorax is grossly intact. IMPRESSION: No active disease in the chest. Electronically signed by: Jose Zazueta M.D. 10/18/2016 5:22 PM Dictated Date/Time: 10/18/2016 5:21 PM
[2016-10-18] MEDS ORDERED: PANTOprazole INJ 40 MG in DEXTROSE 5% 100ML IV SCH (17:30)
[2016-10-18 17:37] LABS: INR 1.4 (0.9-1.1); PARTIAL THROMBOPLASTIN RATIO 1.2; PROTHROMBIN TIME (PATIENT) 15.1 SECONDS (9.0-12.0)
[2016-10-18] MEDS ORDERED: FLUT1INH INH (17:37)
[2016-10-18] MEDS ORDERED: ASPI81TA28 PO (17:37)
[2016-10-18 17:42] LABS: HEMATOCRIT 20.2 % (37-47); MEAN CELL VOLUME 89.4 fL (80-100); MEAN CORPUSCULAR HEMOGLOBIN 24.8 pg (25-34); MEAN CORPUSCULAR HGB CONC 27.7 g/dl (32-36); MEAN PLATELET VOLUME 10.2 fL (7.4-10.4); PLATELET COUNT 359 K/uL (130-400); RED BLOOD COUNT 2.26 M/uL (4.2-5.4); WHITE BLOOD COUNT 6.77 K/uL (4.8-10.8)
--- NOTE | 2016-10-18 17:42 | EMERGENCY ROOM VISIT NOTE ---
History Report prepared by Seth: Karen Young Under the Supervision of: Dr. Jose Vee M.D. First contact with patient: 16:54 Chief Complaint: REFERRED BY DOCTOR Stated Complaint: DR GAEL, NEEDS BLOOD History of Present Illness The patient is a 76 year old female who presents to the Emergency Room with complaints of constant low hemoglobin lab results that occurred 3 hours prior to arrival. The patient was seen by Ray today. He did labs on the patient and found she has a hemoglobin count of 5.7. The patient has been feeling weak, fatigued and short of breath. She notes she is pale in color as well. The patient has been hospitalized for this before and was transfused with blood. The patient wears 4L of oxygen at home. The patient has a history of atrial fibrillation and is currently on Xarelto and Aspirin daily. The patient was taken of blood thinners during her last hospital stay due to low hemoglobin levels. She notes black stools for the past two weeks. She denies abdominal pain , blood in the stool or having a GI bleed before. 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 She denies blood in her stool. Review of Systems See HPI for pertinent positives & negatives. A total of 10 systems reviewed and were otherwise negative. Past Medical & Surgical Medical Problems: (1) Acute on chronic respiratory failure (2) Diab Zoey Wo Compl, Type Ii Or Unspec Type, Not Uncntrld (3) Diverticulosis Colon (W/O Ment Of Hemorrhage) (4) Hyperlipidemia Nec/Nos (5) Hypertension Nos (6) Obstr Chronic Bronchitis, W (Acute) Exacerbation (7) Paroxysmal a-fib (8) Pneumonia, Organism Nos (9) Pure Hypercholesterolem (10) Symptomatic anemia (11) Tubal Ligation Status Family History Diabetes mellitus FH: cancer Hypertension Social History Smoking Status: Former Smoker Alcohol Use: none Drug Use: none Housing Status: lives with family Occupation Status: retired Current/Historical Medications Scheduled Amiodarone HCl (Amiodarone HCl), 100 MG PO DAILY Aspirin (Aspirin Ec), 81 MG PO DAILY Atorvastatin (Lipitor), 80 MG PO DAILY Budesonide/Formoterol Fumarate (Symbicort 160-4.5 Mcg/Act), 2 PUFFS INH BID Buspirone HCl (Buspirone HCl), 15 MG PO TID Cholecalciferol (Vitamin D), 2,000 INTER.UNIT PO DAILY Diltiazem HCl (Diltiazem HCl ER), 180 MG PO QAM Eucerin (Hydrocerin), 1 APPLN EXT BID Ferrous Sulfate (Kp Ferrous Sulfate), 1 TAB PO BID Fluticasone Furoate-Vilanterol (Breo Ellipta), 2 PUFF INH BID Folic Acid (Folvite), 1 MG PO DAILY Lactobacillus Acidophilus (Floranex), 1 TAB PO TIDM Oxygen (Oxygen), 4 LITERS NA UD Pantoprazole (Pantoprazole Sodium), 40 MG PO DAILY Rivaroxaban (Xarelto), 20 MG PO DAILY Trazodone HCl (Trazodone HCl), 200 MG PO HS Venlafaxine Hcl (Effexor Extended Rel), 150 MG PO DAILY Venlafaxine Hcl (Effexor Extended Rel), 75 MG PO DAILY Allergies Coded Allergies: Mushroom (Verified Allergy, Unknown, 10/18/16) Theophyllines (Verified Allergy, Unknown, Unknown, 10/18/16) Reported by daughter and listed in [facility] record. Morphine (Verified Adverse Reaction, Mild, Causes Afib, 10/18/16) Codeine (Verified Adverse Reaction, Unknown, HYPERVENTILATES, 10/18/16) Physical Exam Vital Signs Date Time Temp Pulse Resp B/P (MAP) Pulse Ox O2 Delivery O2 Flow Rate FiO2 10/18/16 17:31 86 10/18/16 17:27 99 Nasal Cannula 4.0 10/18/16 16:44 36.6 92 20 142/54 88 Nasal Cannula 4.0 Physical Exam GENERAL: Patient is in no acute distress. HEENT: No acute trauma, normocephalic atraumatic, mucous membranes moist, no nasal congestion, no scleral icterus. NECK: No stridor, no adenopathy, no meningismus, trachea is midline. LUNGS: Clear to auscultation bilaterally, no wheeze, no rhonchi, breath sounds equal. HEART: Without murmurs gallops or rubs, regular rate and rhythm. ABDOMEN: Soft, nontender, bowel sounds positive, no hernias, no peritonitis. RECTAL: Black stool, heme positive EXTREMITIES: No cyanosis or edema, full range of motion of all the joints without pain or difficulty, no signs for acute trauma. NEUROLOGIC: Oriented x 3, no acute motor or sensory deficits, no focal weakness. SKIN: Pale, no rash, no jaundice, no diaphoresis. Medical Decision & Procedures ER Provider Diagnostic Interpretation: X-ray results as stated below per interpretation by me and the radiologist: SINGLE VIEW CHEST CLINICAL HISTORY: GI bleeding. FINDINGS: An AP, portable, upright chest radiograph is compared to chest x-ray and chest CT dated 09/13/2016. The examination is degraded by portable technique and patient rotation. The cardiomediastinal silhouette is unremarkable. There is atherosclerotic calcification of the thoracic aorta. Chronic interstitial thickening is unchanged. The lungs and pleural spaces are clear. No pneumothorax is seen. The skeletal structures are osteopenic. The bony thorax is grossly intact. IMPRESSION: No active disease in the chest. Electronically signed by: Jose Zazueta M.D. 10/18/2016 5:22 PM Dictated Date/Time: 10/18/2016 5:21 PM Laboratory Results 10/18/16 17:19 Red Blood Count 2.26, Mean Corpuscular Volume 89.4, Mean Corpuscular Hemoglobin 24.8, Mean Corpuscular Hemoglobin Concent 27.7, Mean Platelet Volume 10.2, Neutrophils (%) (Auto) 80.9, Lymphocytes (%) (Auto) 11.5, Monocytes (%) (Auto) 6.2, Eosinophils (%) (Auto) 0.4, Basophils (%) (Auto) 0.9, Neutrophils # (Auto) 5.47, Lymphocytes # (Auto) 0.78, Monocytes # (Auto) 0.42, Eosinophils # (Auto) 0.03, Basophils # (Auto) 0.06 10/18/16 17:19 Test 10/18/16 17:19 White Blood Count 6.77 K/uL (4.8-10.8) Red Blood Count 2.26 M/uL (4.2-5.4) Hemoglobin 5.6 g/dL (12.0-16.0) Hematocrit 20.2 % (37-47) Mean Corpuscular Volume 89.4 fL (80-100) Mean Corpuscular Hemoglobin 24.8 pg (25-34) Mean Corpuscular Hemoglobin Concent 27.7 g/dl (32-36) Platelet Count 359 K/uL (130-400) Mean Platelet Volume 10.2 fL (7.4-10.4) Neutrophils (%) (Auto) 80.9 % Lymphocytes (%) (Auto) 11.5 % Monocytes (%) (Auto) 6.2 % Eosinophils (%) (Auto) 0.4 % Basophils (%) (Auto) 0.9 % Neutrophils # (Auto) 5.47 K/uL (1.4-6.5) Lymphocytes # (Auto) 0.78 K/uL (1.2-3.4) Monocytes # (Auto) 0.42 K/uL (0.11-0.59) Eosinophils # (Auto) 0.03 K/uL (0-0.5) Basophils # (Auto) 0.06 K/uL (0-0.2) RDW Standard Deviation 56.2 fL (36.4-46.3) RDW Coefficient of Variation 17.1 % (11.5-14.5) Immature Granulocyte % (Auto) 0.1 % Immature Granulocyte # (Auto) 0.01 K/uL (0.00-0.02) Polychromasia 1+ Hypochromasia PRESENT Anisocytosis PRESENT Microcytosis PRESENT Prothrombin Time 15.1 SECONDS (9.0-12.0) Prothromb Time International Ratio 1.4 (0.9-1.1) Activated Partial Thromboplast Time 30.2 SECONDS (21.0-31.0) Partial Thromboplastin Ratio 1.2 Anion Gap 6.0 mmol/L (3-11) Est Creatinine Clear Calc Drug Dose 62.5 ml/min Estimated GFR () 78.2 Estimated GFR (Non- 67.5 BUN/Creatinine Ratio 16.3 (10-20) Calcium Level 7.9 mg/dl (8.5-10.1) Total Bilirubin 0.4 mg/dl (0.2-1) Direct Bilirubin 0.1 mg/dl (0-0.2) Aspartate Amino Transf (AST/SGOT) 14 U/L (15-37) Alanine Aminotransferase (ALT/SGPT) 14 U/L (12-78) Alkaline Phosphatase 88 U/L (45-117) Troponin I 0.021 ng/ml (0-0.045) Total Protein 6.3 gm/dl (6.4-8.2) Albumin 2.8 gm/dl (3.4-5.0) Laboratory results reviewed by me. Medications Administered Medications (Trade) Dose Ordered Sig/Buddy Route Start Time Stop Time Status Last Admin Dose Admin Sodium Chloride 500 ml @ 999 mls/hr Q31M STAT IV 10/18/16 16:59 10/18/16 17:29 DC 10/18/16 18:01 999 MLS/HR Pantoprazole Sodium 80 mg/ Dextrose 120 ml @ 480 mls/hr TODAY@1715 ONCE IV 10/18/16 17:15 10/18/16 17:29 DC 10/18/16 17:38 480 MLS/HR Pantoprazole Sodium 40 mg/ Dextrose 100 ml @ 20 mls/hr Q5H IV 10/18/16 17:30 10/18/16 22:29 10/18/16 18:01 20 MLS/HR ECG Indication: other (abnormal labs) Rate (beats per minute): 84 Rhythm: sinus rhythm Findings: PAC, no acute ischemic change ED Course 1655: The patient was evaluated in room A9. A complete history and physical exam was performed. 1659: Sodium Chloride 500 ml @ 999 mls/hr IV. 1703: Protonix IV Bolus/ Drip 1 ea IV. 1715: Pantoprazole Sodium 80 mg/ Dextrose 120 ml @ 480 mls/hr IV. 1718: Discussed the patient's case with Dr. Candelario Andrade [facility] [place]. The patient will be evaluated for further management. 1730: Pantoprazole Sodium 40 mg/ Dextrose 100 ml @ 20 mls/hr IV. 1751: I discussed results and treatment plan with the patient. She verbalizes agreement and understanding. The patient will be evaluated for further management. Medical Decision The patient is a 76 year old female who presents to the ED with complaints of low hemoglobin levels. Differential diagnoses considered include anemia, cardiac ischemia, electrolyte imbalance, infection, [place], GI bleed. There is no leukocytosis. The patient is markedly anemic with a hemoglobin of 5.6. No significant electrolyte abnormality, kidney failure or hepatitis. The patient has a very mildly elevated INR at 1.4. Chest film does not show pneumonia or CHF. EKG shows a sinus rhythm, no acute ischemia. Cardiac enzyme testing times one is not consistent with acute cardiac injury. The patient presents with fatigue and shortness of breath. She has heme positive stool by my testing. She is quite anemic. She will require a blood transfusion. I ordered for 2 units of blood to be given. She did sign the consent for the transfusion. She received IV saline and was given IV Protonix as a bolus and then placed on a Protonix drip. Admission/observation is warranted. I spoke with the patient and case management. The on-call hospitalist was consulted. Medication Reconciliation: I attest that I have personally reviewed the patient' s current medication list. Blood Pressure Screening: Patient was found to have an elevated blood pressure and was referred to their primary doctor for recheck and further treatment. Consults Time Called: 171 Consulting Physician: Dr. Candelario ROMO Returned Call: [phone] Discussed the patient's case. The patient will be evaluated for further management. Impression Primary Impression: GI bleed Additional Impressions: Anemia SOB (shortness of breath) Critical Care I have personally spent greater than 30 minutes of critical care time in the direct management of this patient. This includes bedside care, interpretation of diagnostic studies and testing, discussion with consultants, the patient, and family members, and other required patient management activities. This 30 minutes is in excess of all separately billable procedures. Scribe Attestation The scribe's documentation has been prepared under my direction and personally reviewed by me in its entirety. I confirm that the note above accurately reflects all work, treatment, procedures, and medical decision making performed by me. Departure Information Dispostion Being Evaluated By Hospitalist Referrals Ray Pereira III, CRNP (PCP) Problem Qualifiers
[2016-10-18 17:48] LABS: BUN/CREATININE RATIO 16.3 (10-20); CALCIUM 7.9 mg/dl (8.5-10.1); CREATININE 0.85 mg/dl (0.60-1.20); POTASSIUM 3.1 mmol/L (3.5-5.1)
[2016-10-18 17:50] LABS: ANISOCYTOSIS PRESENT; BASO % 0.9 %; BASO ABS # 0.06 K/uL (0-0.2); COMPLETE YES; EOS % 0.4 %; HYPOCHROMIA PRESENT; IG% 0.1 %; LYMPH % 11.5 %; LYMPH ABS # 0.78 K/uL (1.2-3.4); MICROCYTOSIS PRESENT; MONO % 6.2 %; NEUT % 80.9 %; POLYCHROMASIA 1+
[2016-10-18] MEDS ORDERED: SPRIN/30 INH (18:13)
[2016-10-18] MEDS ORDERED: MAGNESIUM HYDROXIDE SUSP 30 ML UDC PO PRN (18:15)
[2016-10-18] MEDS ORDERED: ALUMINUM/MAGNESIUM/SIMETH (MAALOX MAX) 30 ML UDC PO PRN (18:15)
[2016-10-18] MEDS ORDERED: POLYETHYLENE (MIRALAX) 17 GM PACK PO PRN (18:15)
[2016-10-18] MEDS ORDERED: ONDANSETRON INJ 2 MG/ML 2 ML VIAL IV PRN (18:15)
--- NOTE | 2016-10-18 18:44 | History and Physical ---
History & Physical Date & Time of Service: Oct 18, 2016 at 18:20 Chief Complaint: Dr Referred, Needs Blood Primary Care Physician: Ray Pereira III, CRNP History of Present Illness Source: patient, family (2 daughters at bedside), clinic records, hospital records This is a 76 y/o female with a history of atrial fibrillation, COPD, HTN, HLD, anxiety and depression, GERD, and insomnia who presented to the ED on 10/18 with anemia and melena. The patient presented after seeing her PCP today complaining of weakness, fatigue, worsening shortness of breath, and pallor. She had labs drawn at the office which revealed a hemoglobin of 5.7. The patient was then referred to the ED for further evaluation. The patient notes that she has had black stools for the last 2 weeks. She does take an iron supplement, but states that she has not taken any iron for a week. Her stool was heme positive in the ED. The patient also complains of intermittent palpitations which have increased in frequency lately as well as dyspnea on exertion. The patient wears 4L of oxygen at home and BIPAP at night but has complained of being more short of breath than usual despite taking her medications as prescribed. The patient also notes some dizziness lately. The patient was admitted for anemia in July 2015 and had an EGD and colonoscopy at that time that did not discover a bleeding source. The patient's blood thinners were stopped during that admission but have since been restarted. She is currently taking Xarelto and aspirin. The patient denies fevers, chills, sweats, chest pain, claudication, cough, wheezing, nausea, vomiting, diarrhea, abdominal pain, hematochezia, dysuria, hematuria, urinary retention, paralysis, motor weakness, numbness and tingling. Past Medical/Surgical History Medical Problems: (1) Diab Zoey Wo Compl, Type Ii Or Unspec Type, Not Uncntrld Status: Chronic (2) Diverticulosis Colon (W/O Ment Of Hemorrhage) Status: Chronic (3) Hyperlipidemia Nec/Nos Status: Chronic (4) Hypertension Nos Status: Chronic (5) Obstr Chronic Bronchitis, W (Acute) Exacerbation Status: Chronic (6) Pneumonia, Organism Nos Status: Resolved (7) Pure Hypercholesterolem Status: Chronic (8) Tubal Ligation Status Status: Resolved Family History Diabetes mellitus FH: cancer (lymphoma, breast cancer) Hypertension Social History Smoking Status: Former Smoker (quit 5-6 years ago) Smokeless Tobacco Use: No Alcohol Use: none Drug Use: none Marital Status: Housing status: lives with family (lives with daughter) Occupational Status: retired Immunizations History of Influenza Vaccine: Yes Influenza Vaccine Date: Apr 12, 2013 History of Tetanus Vaccine?: Unknown Tetanus Immunization Date: Nov 09, 2007 History of Pneumococcal: Yes Pneumococcal Date: Mar 10, 2011 History of Hepatitis B Vaccine: No Multi-Drug Resistant Organisms History of MDRO: No Allergies Coded Allergies: Mushroom (Verified Allergy, Unknown, 10/18/16) Theophyllines (Verified Allergy, Unknown, Unknown, 10/18/16) Reported by daughter and listed in [facility] record. Morphine (Verified Adverse Reaction, Mild, Causes Afib, 10/18/16) Codeine (Verified Adverse Reaction, Unknown, HYPERVENTILATES, 10/18/16) Home Medications Scheduled Amiodarone HCl (Amiodarone HCl), 100 MG PO DAILY Aspirin (Aspirin Ec), 81 MG PO DAILY Atorvastatin (Lipitor), 80 MG PO DAILY Buspirone HCl (Buspirone HCl), 15 MG PO TID Cholecalciferol (Vitamin D), 2,000 INTER.UNIT PO DAILY Diltiazem HCl (Diltiazem HCl ER), 180 MG PO QAM Eucerin (Hydrocerin), 1 APPLN EXT BID Ferrous Sulfate (Kp Ferrous Sulfate), 1 TAB PO BID Fluticasone Furoate-Vilanterol (Breo Ellipta), 1 PUFF INH DAILY Folic Acid (Folvite), 1 MG PO DAILY Lactobacillus Acidophilus (Floranex), 1 TAB PO TIDM Oxygen (Oxygen), 4 LITERS NA UD Pantoprazole (Pantoprazole Sodium), 40 MG PO DAILY Rivaroxaban (Xarelto), 20 MG PO DAILY Tiotropium Mcfarland (Spiriva Handihaler), 1 CAP INH DAILY Trazodone HCl (Trazodone HCl), 100 MG PO HS Venlafaxine Hcl (Effexor Extended Rel), 150 MG PO DAILY Venlafaxine Hcl (Effexor Extended Rel), 75 MG PO DAILY Review of Systems Constitutional: + weakness, + fatigue, + problem reported (dizziness), No fever , No chills, No sweats Eyes: No worsening of vision, No eye pain, No diplopia ENT: No hearing loss, No sore throat, No trouble swallowing Respiratory: + shortness of breath, + dyspnea on exertion, No cough, No wheezing Cardiovascular: + palpitations, No chest pain, No claudication Abdomen: + GI bleeding, No pain, No nausea, No vomiting, No diarrhea Musculoskeletal: No joint pain, No muscle pain, No swelling Genitourinary - Female: No dysuria, No urinary retention, No hematuria Neurologic: No paralysis, No weakness, No numbness/tingling Integumentary: No rash, No itch, No color change Physical Exam Vital Signs Date Time Temp Pulse Resp B/P (MAP) Pulse Ox O2 Delivery O2 Flow Rate FiO2 10/18/16 17:31 86 10/18/16 17:27 99 Nasal Cannula 4.0 10/18/16 16:44 36.6 92 20 142/54 88 Nasal Cannula 4.0 General Appearance: WD/WN, no apparent distress, + obese Head: normocephalic, atraumatic Eyes: normal inspection, PERRL, EOMI ENT: normal ENT inspection, hearing grossly normal, pharynx normal Neck: supple, no JVD, trachea midline Respiratory/Chest: lungs clear, no respiratory distress, + decreased breath sounds (throughout) Cardiovascular: regular rate, rhythm, no gallop, no murmur Abdomen/GI: normal bowel sounds, non tender, soft Extremities/Musculoskelatal: normal inspection, no calf tenderness, no pedal edema Neurologic/Psych: alert, normal mood/affect, oriented x 3 Skin: warm/dry, no rash, + pallor Diagnostics Laboratory Results Results Past 24 Hours Test 10/18/16 17:19 Range/Units White Blood Count 6.77 4.8-10.8 K/uL Red Blood Count 2.26 4.2-5.4 M/uL Hemoglobin 5.6 12.0-16.0 g/dL Hematocrit 20.2 37-47 % Mean Corpuscular Volume 89.4 80-100 fL Mean Corpuscular Hemoglobin 24.8 25-34 pg Mean Corpuscular Hemoglobin Concent 27.7 32-36 g/dl Platelet Count 359 130-400 K/uL Mean Platelet Volume 10.2 7.4-10.4 fL Neutrophils (%) (Auto) 80.9 % Lymphocytes (%) (Auto) 11.5 % Monocytes (%) (Auto) 6.2 % Eosinophils (%) (Auto) 0.4 % Basophils (%) (Auto) 0.9 % Neutrophils # (Auto) 5.47 1.4-6.5 K/uL Lymphocytes # (Auto) 0.78 1.2-3.4 K/uL Monocytes # (Auto) 0.42 0.11-0.59 K/uL Eosinophils # (Auto) 0.03 0-0.5 K/uL Basophils # (Auto) 0.06 0-0.2 K/uL RDW Standard Deviation 56.2 36.4-46.3 fL RDW Coefficient of Variation 17.1 11.5-14.5 % Immature Granulocyte % (Auto) 0.1 % Immature Granulocyte # (Auto) 0.01 0.00-0.02 K/uL Polychromasia 1+ Hypochromasia PRESENT Anisocytosis PRESENT Microcytosis PRESENT Prothrombin Time 15.1 9.0-12.0 SECONDS Prothromb Time International Ratio 1.4 0.9-1.1 Activated Partial Thromboplast Time 30.2 21.0-31.0 SECONDS Partial Thromboplastin Ratio 1.2 Sodium Level 144 136-145 mmol/L Potassium Level 3.1 3.5-5.1 mmol/L Chloride Level 105 98-107 mmol/L Carbon Dioxide Level 33 21-32 mmol/L Anion Gap 6.0 3-11 mmol/L Blood Urea Nitrogen 14 7-18 mg/dl Creatinine 0.85 0.60-1.20 mg/dl Est Creatinine Clear Calc Drug Dose 62.5 ml/min Estimated GFR () 78.2 Estimated GFR (Non- 67.5 BUN/Creatinine Ratio 16.3 10-20 Random Glucose 206 70-99 mg/dl Calcium Level 7.9 8.5-10.1 mg/dl Total Bilirubin 0.4 0.2-1 mg/dl Direct Bilirubin 0.1 0-0.2 mg/dl Aspartate Amino Transf (AST/SGOT) 14 15-37 U/L Alanine Aminotransferase (ALT/SGPT) 14 12-78 U/L Alkaline Phosphatase 88 45-117 U/L Troponin I 0.021 0-0.045 ng/ml Total Protein 6.3 6.4-8.2 gm/dl Albumin 2.8 3.4-5.0 gm/dl Diagnostic Radiology Reviewed the following studies and agree with interpretation as follows: Patient Name: IKE WEAVER Unit Number: [id number] Dictated: 10/18/161720 Transcribed: 10/18/161720 EV Printed Date/Time: [~ rep prt dt]/[~ rep prt tm] [~ rep ct labl] - [~ rep ct ivnm] [facility] [place] [address] Dictated: 10/18/161720 Transcribed: 10/18/161720 EV Printed Date/Time: [~ rep prt dt]/[~ rep prt tm] [~ rep ct labl] - [~ rep ct ivnm] Patient: IKE WEAVER Address1: [address] [place] [address] Rec: [id number] Address2: Acct ID: [id number] [facility] Zip: [place] [address] Date: 1940 Sex: F Room/Bed: Ref Phy: Ray Pereira III, CRNP SC: FIDEL Att Phy: Report #: [id number] Jojo Phy: Ray Pereira III, CRNP Test: CXR1P Admit Phy: Operations Administrator: ANTHONY Interpreting Phy: Jose Zazueta M.D. Diagnosis: DR MAYO, NEEDS BLOOD Ordering Phy: Jose Vee M.D. Service Date: 10/18/16 Admit Date: 10/18/16 MNE: [id number] CONF: DICTATED BY: Jose Zazueta M.D.]] CC: Jose Vee M.D. Griel, Lester C. III, CRNP Endcc: [~ rep ct add3]] SINGLE VIEW CHEST CLINICAL HISTORY: GI bleeding. FINDINGS: An AP, portable, upright chest radiograph is compared to chest x-ray and chest CT dated 09/13/2016. The examination is degraded by portable technique and patient rotation. The cardiomediastinal silhouette is unremarkable. There is atherosclerotic calcification of the thoracic aorta. Chronic interstitial thickening is unchanged. The lungs and pleural spaces are clear. No pneumothorax is seen. The skeletal structures are osteopenic. The bony thorax is grossly intact. IMPRESSION: No active disease in the chest. Electronically signed by: Jose Zazueta M.D. 10/18/2016 5:22 PM Dictated Date/Time: 10/18/2016 5:21 PM The status of this report is Signed. Draft = Not yet reviewed or approved by Radiologist. Signed = Reviewed and approved by Radiologist. <AttendingPhy></AttendingPhy> <FamilyPhy>Ray Pereira III, PHARMACEUTICAL OPERATOR</FamilyPhy> < PrimaryPhy>Ray Pereira III, PHARMACEUTICAL OPERATOR</PrimaryPhy> <UnitNumber>[id number]</ UnitNumber> <VisitNumber>[id number]</VisitNumber> <PatientName>IKE WEAVER</PatientName> <DateOfBirth>1940</DateOfBirth> <Location>[facility]</Location > <ServiceDate>10/18/16</ServiceDate> <MNE>ESINDI</MNE> <OrderingPhy>Jose Vee M.D.</OrderingPhy> <OrderingPhyMNE>f rep ord dr chan</OrderingPhyMNE> < DictatingPhyMNE>f rep dict dr chan</DictatingPhyMNE> <CCListMNE>f rep ct dustin</ CCListMNE> <AdmittingPhyMNE>f pt admit dr chan</AdmittingPhyMNE> <AttendingPhyMNE >f pt attend dr chan</AttendingPhyMNE> <ConsultingPhyMNE>f pt consult dr chan</ConsultingPhyMNE> <FamilyPhyMNE>f pt fam dr chan</FamilyPhyMNE> <OtherPhyMNE>f pt other dr chan</OtherPhyMNE> < PrimaryPhyMNE>f pt prim care dr chan</PrimaryPhyMNE> <ReferringPhyMNE>f pt referring dr chan</ReferringPhyMNE> EKG Reviewed EKG and agree with interpretation as follows: 84 bpm, sinus rhythm with PACs Impression Assessment and Plan 76 y/o female with a history of atrial fibrillation, COPD, HTN, HLD, anxiety and depression, GERD, and insomnia who presented to the ED on 10/18 with anemia and melena. Pt referred to ED by PCP with Hgb of 5.7 in PCP office. Reports black stools x 2 weeks and worsening weakness, fatigue, shortness of breath, dizziness and palpitations. On Xarelto and ASA. Hgb down to 5.6 in ED. Potassium 3.1. EKG shows no ischemic changes. CXR no acute disease. Acute on chronic anemia with melena, presumed GI bleed--baseline hemoglobin 9- 10 within the last year -Admit to telemetry -Transfuse 2 units PRBCs now, transfuse prn with goal Hgb of 10 due to comorbidities -Check H&H q6h -Protonix drip -NPO except meds -Consult GI, appreciate recs. Pt saw Dr. Roy last year -IVF with NSS + 20 mEq KCl at 125 cc/hr -EKG q am and prn with chest pain -Continue ferrous sulfate 325 mg PO BID Hypokalemia -Potassium 3.3 at PCP office, down to 3.1 in ED -IVF with KCl as above -Check magnesium -Continue to monitor Atrial fibrillation--stable. Currently in sinus rhythm -Continue amiodarone 100 mg PO qd and diltiazem 180 mg PO qd -Hold Xarelto and ASA COPD--stable. Wears 4L NC continuous at home, currently saturating 100% on 4L -O2 by protocol -Continue Breo, Spiriva and BIPAP at nighttime HTN--stable HLD -Continue atorvastatin 80 mg PO qd Anxiety and depression -Continue venlafaxine 225 mg PO qd and buspirone 15 mg PO TID Insomnia -Continue trazodone 100 mg PO qhs DVT prophylaxis -Hold chemical prophylaxis due to bleed -ASHLEE leo and SCDs Code Status -Level I, FULL RESUSCITATION STATUS Level of Care Telemetry Resuscitation Status FULL RESUSCITATION VTE Prophylaxis VTE Risk Assessment Done? Y/N: Yes Risk Level: Moderate Given or contraindicated: DONALD Rincon's Assessment and Plan Attending Addendum: I have physically seen and examined this patient, directed their medical care, supervised the Physician Printing Specialist's activity, and agree with the H&P as noted above, with the following changes: NONE.
[2016-10-18] MEDS ORDERED: NSS + 20MEQ KCL 1000ML 1,000 ML IV SCH (22:45)
[2016-10-18] MEDS: PANTOprazole INJ 40 MG in DEXTROSE 5% 100ML 100 ML IV SCH (22:48)
[2016-10-18] MEDS: TRAZODONE HCL 100 MG TAB PO SCH (23:14)
[2016-10-18] MEDS: EUCERIN CR 120 GM JAR EXT SCH (23:15)
[2016-10-18] MEDS: BusPIRone 15 MG TAB PO SCH (23:15)
[2016-10-19] VITALS (32 sets, daily range): BP systolic 117–163; BP diastolic 45–90; PULSE 63–85; TEMP 36.4–37; O2SAT 98–100
[2016-10-19] MEDS: PANTOprazole INJ 40 MG in DEXTROSE 5% 100ML 100 ML IV SCH ×3 (04:03→13:55)
[2016-10-19 04:43] LABS: HEMATOCRIT 25.5 % (37-47); MEAN CELL VOLUME 89.5 fL (80-100); MEAN CORPUSCULAR HEMOGLOBIN 25.6 pg (25-34); MEAN CORPUSCULAR HGB CONC 28.6 g/dl (32-36); PLATELET COUNT 294 K/uL (130-400); RED BLOOD COUNT 2.85 M/uL (4.2-5.4); WHITE BLOOD COUNT 7.23 K/uL (4.8-10.8)
[2016-10-19 04:45] LABS: BUN/CREATININE RATIO 19.6 (10-20); CALCIUM 7.4 mg/dl (8.5-10.1); CREATININE 0.64 mg/dl (0.60-1.20); POTASSIUM 3.6 mmol/L (3.5-5.1)
[2016-10-19] MEDS: LACTOBACILLUS ACIDOPHILUS (FLORANEX) TAB PO SCH ×3 (07:15→17:17)
--- NOTE | 2016-10-19 08:28 | Clinical Documentation Query ---
MAYITO Pastrana : CLINICAL DOCUMENTATION QUERY QUERY 1 OF 2 Patient is a 76 year old female admitted for acute blood loss anemia on chronic anemia due to presumed GI bleed in the setting of ASA and Plavix use for atrial fibrillation. If you believe the ASA and Plavix are likely or possibly related to the observed anemia, consider documentation as suggested below as this significantly impacts severity of illness, risk of mortality, and ultimately DRG assignment. Thank you. In your clinical opinion is this patient being managed for: ( x ) Coagulation defect/hemorrhagic disorder with resultant GI bleed in the setting of ASA and Plavix use ( ) Other explanation of clinical findings (Please Explain) ( ) Unable to determine (Please Define) ( ) Need to Discuss ( ) Not Agree The medical record reflects the following clinical findings, treatment, and risk factors. Clinical Indicators: As above Treatment: Transfusion of PRBC's, serial hematology, GI consultation Risk Factors: ASA, Plavix use Karthik - do we now need to document "coagulation defect/hemorrhagic disorder" when people come in with GI bleeding from aspirin or any agent?? This seems silly! If that is what is needed for appropriate coding I will do so but I can't say I have ever seen a physician document a GI bleed this way. Just let me know. QUERY 2 OF 2 H&P notes that the patient wears 4L of oxygen at home in the setting of COPD. As appropriate, consider documentation as suggested below. In your clinical opinion is this patient being managed for: (x ) Chronic respiratory failure with hypoxia ( ) Other explanation of clinical findings (Please Explain) ( ) Unable to determine (Please Define) ( ) Need to Discuss ( ) Not Agree The medical record reflects the following clinical findings, treatment, and risk factors. Clinical Indicators: As above Treatment: Ongoing supplemental oxygen administration Risk Factors: COPD/smoking history Please clarify and document your clinical opinion in the progress notes and discharge summary. Terms such as "probable", "suspected", "likely", "questionable", "possible", or "still to be ruled out" are acceptable. IF IN AGREEMENT, YOU MUST DOCUMENT ABOVE DIAGNOSTIC STATEMENT IN DAILY PROGRESS NOTES AND DISCHARGE SUMMARY. This document is not part of the patient's record. Thank You, Karthik Fallon, RN [phone]
--- NOTE | 2016-10-19 08:29 | Clinical Documentation Query ---
CATHY Ríos : CLINICAL DOCUMENTATION QUERIES QUERY 1 OF 2 Patient is a 76 year old female admitted for acute blood loss anemia on chronic anemia due to presumed GI bleed in the setting of ASA and Plavix use for atrial fibrillation. If you believe the ASA and Plavix are likely or possibly related to the observed anemia, consider documentation as suggested below as this significantly impacts severity of illness, risk of mortality, and ultimately DRG assignment. Thank you. In your clinical opinion is this patient being managed for: (x ) Coagulation defect/hemorrhagic disorder with resultant GI bleed in the setting of ASA and Plavix use ( ) Other explanation of clinical findings (Please Explain) ( ) Unable to determine (Please Define) ( ) Need to Discuss ( ) Not Agree The medical record reflects the following clinical findings, treatment, and risk factors. Clinical Indicators: As above Treatment: Transfusion of PRBC's, serial hematology, GI consultation Risk Factors: ASA, Plavix use QUERY 2 OF 2 H&P notes that the patient wears 4L of oxygen at home in the setting of COPD. As appropriate, consider documentation as suggested below. In your clinical opinion is this patient being managed for: (x ) Chronic respiratory failure with hypoxia ( ) Other explanation of clinical findings (Please Explain) ( ) Unable to determine (Please Define) ( ) Need to Discuss ( ) Not Agree The medical record reflects the following clinical findings, treatment, and risk factors. Clinical Indicators: As above Treatment: Ongoing supplemental oxygen administration Risk Factors: COPD/smoking history Please clarify and document your clinical opinion in the progress notes and discharge summary. Terms such as "probable", "suspected", "likely", "questionable", "possible", or "still to be ruled out" are acceptable. IF IN AGREEMENT, YOU MUST DOCUMENT ABOVE DIAGNOSTIC STATEMENT IN DAILY PROGRESS NOTES AND DISCHARGE SUMMARY. This document is not part of the patient's record. Thank You, Karthik Fallon, RN [phone]
[2016-10-19] MEDS ORDERED: FERROUS SULFATE 325 MG TAB PO SCH (09:00)
[2016-10-19] MEDS: BusPIRone 15 MG TAB PO SCH ×3 (09:26→20:02)
[2016-10-19] MEDS: DILTIAZEM HCL 180 MG CAPCR PO SCH (09:27)
[2016-10-19] MEDS: CHOLECALCIFEROL 1000 INTER.UNIT TAB PO SCH (09:27)
[2016-10-19] MEDS: TIOTROPIUM BROMIDE 5 PUFF/90 MCG INH INH SCH (09:28)
[2016-10-19] MEDS: AMIODARONE 200 MG TAB PO SCH (09:28)
[2016-10-19] MEDS: VENLAFAXINE HCL XR 75 MG CAPXR PO SCH (09:28)
[2016-10-19] MEDS: VENLAFAXINE HCL XR 150 MG CAPXR PO SCH (09:28)
[2016-10-19] MEDS: ATORVASTATIN 40 MG TAB PO SCH (09:28)
--- NOTE | 2016-10-19 09:47 | Gastrointestinal Consultation ---
Gastrointestinal Consultation Date of Consultation: Oct 19, 2016 Attending Physician: Dr. Palomino Consulting Physician: Dr. Roy/JACINTA Abel Reason for Consultation: Anemia History of Present Illness Patient is a 75 year old female with a history of COPD, diabetes, atrial fibrillation (on aspirin and plavix), and iron deficiency anemia presenting to the ER after being evaluated by her PCP reporting a sudden onset of fatigue, weakness, pallor and shortness of breath as well as reports of melena that have been ongoing for the past several weeks. On arrival, she was noted to be profoundly anemic with a hemoglobin of 5.6, hematocrit 20.2 and MCV 89.4. She has been made NPO and started on a Protonix ggt. Risk factors for bleeding include low dose aspirin and Xarelto. The patient was seen and evaluated for similar presentation in July of 2015. At that time, she did undergo both an upper endoscopy as well as colonoscopy. She was found to have internal hemorrhoids but no clear bleeding source. At present, the patient reports mild fatigue but no chest pain, shortness of breath, abdominal pain, nausea/vomiting, diarrhea, constipation or hematochezia. She is currently being transfused and is receiving her 4th unit of PRBCS. Per nursing, the patient did stop taking her oral iron supplementation at home several weeks ago as well. Past Medical/Surgical History Medical Problems: (1) Anemia Status: Acute (2) Anemia Status: Acute (3) Anemia Status: Acute (4) Bronchitis Status: Acute (5) GI bleed Status: Acute (6) GI bleed Status: Acute (7) Hypokalemia Status: Acute (8) Respiratory failure Status: Acute (9) SOB (shortness of breath) Status: Acute Past Medical History: 1. Diabetes 2. Diverticulosis 3. Hyperlipidemia 4. Hypertension 5. COPD 6. Pneumonia 7. Hypercholesterolemia 8. Anemia Past Surgical History: 1. Tubal ligation 2. EGD 3. Complete colonoscopy Family History Diabetes mellitus FH: cancer (lymphoma, breast cancer) Hypertension Negative for GI malignancy, IBD and Celiac sprue Social History Smoking Status: Former Smoker Alcohol Use: none Drug Use: none Marital Status: Housing Status: lives with family Occupation Status: retired Allergies Coded Allergies: Mushroom (Verified Allergy, Unknown, 10/18/16) Theophyllines (Verified Allergy, Unknown, Unknown, 10/18/16) Reported by daughter and listed in [facility] record. Morphine (Verified Adverse Reaction, Mild, Causes Afib, 10/18/16) Codeine (Verified Adverse Reaction, Unknown, HYPERVENTILATES, 10/18/16) Current Medications Home Meds and Scripts Medications Dose Route/Sig Max Daily Dose Days Date Category Dose Instructions Spiriva Handihaler (Tiotropium [place]) 30 Puff/540 Mcg Aerp 1 Cap INH DAILY 30 10/18/16 Reported Breo Ellipta (Fluticasone Furoate-Vilanterol) 1 Inh Inh 1 Puff INH DAILY 10/18/16 Reported Aspirin Ec (Aspirin) 81 Mg Tab 81 Mg PO DAILY 10/18/16 Reported Hydrocerin (Multi-Ingredient Ointment) 360 Appln/120 Gm Cr 1 Appln EXT BID 09/20/16 Rx Diltiazem HCl ER (Diltiazem HCl) 180 Mg Capcr 180 Mg PO QAM 30 09/20/16 Rx Xarelto (Rivaroxaban) 20 Mg Tab 20 Mg PO DAILY 07/27/16 Reported Kp Ferrous Sulfate (Ferrous Sulfate) 325 Mg Tab 1 Tab PO BID 07/22/16 Reported Amiodarone HCl 200 Mg Tab 100 Mg PO DAILY 30 08/03/15 Rx Floranex (Lactobacillus Acidophilus) 1 Tab Tab 1 Tab PO TIDM 10/21/14 Rx Buspirone HCl 15 Mg Tab 15 Mg PO TID 10/18/14 Reported Pantoprazole Sodium (Pantoprazole) 40 Mg Tab 40 Mg PO DAILY 10/18/14 Reported Effexor Extended Rel (Venlafaxine Hcl) 75 Mg Capcr 75 Mg PO DAILY 10/18/14 Reported TAKE WITH 150 MG = 225MG TOTAL Effexor Extended Rel (Venlafaxine Hcl) 150 Mg Capcr 150 Mg PO DAILY 05/15/14 Reported TAKE WITH 75MG = 225 MG TOTAL Vitamin D (Cholecalciferol) 2,000 Unit Tab 2,000 Inter.unit PO DAILY 04/24/14 Reported Trazodone HCl 100 Mg Tab 100 Mg PO HS 04/24/14 Reported Lipitor (Atorvastatin Calcium) 80 Mg Tab 80 Mg PO DAILY 04/24/14 Reported Oxygen Gas 4 Liters NA UD 05/16/12 Reported Folvite (Folic Acid) 1 Mg Tab 1 Mg PO DAILY 12/08/11 Reported Review of Systems Constitutional: + see HPI Eyes: No problem reported ENT: No problem reported Respiratory: + see HPI Cardiac: + see HPI Abdomen: + see HPI Musculoskeletal: No problem reported Neuro: + see HPI Psych: No problem reported Skin: + color change (pallor) Physical Exam Date Time Temp Pulse Resp B/P (MAP) Pulse Ox O2 Delivery O2 Flow Rate FiO2 10/19/16 09:23 36.4 72 20 159/68 99 4.0 10/19/16 08:00 36.7 80 22 150/71 100 4.0 10/19/16 06:45 37.0 68 20 135/56 98 4.0 10/19/16 06:30 36.9 68 18 117/45 100 4.0 10/19/16 06:15 36.9 71 20 124/47 99 4.0 10/19/16 06:00 37.0 70 21 134/53 99 4.0 10/19/16 05:45 36.9 73 22 141/54 100 4.0 10/19/16 05:27 36.8 77 21 161/58 100 4.0 10/19/16 04:00 98 Nasal Cannula 4.0 10/19/16 03:30 36.9 74 20 125/54 98 4.0 10/19/16 03:00 36.9 73 18 138/55 98 4.0 10/19/16 03:00 36.9 73 18 138/55 98 4.0 10/19/16 02:00 37.0 76 18 144/57 98 4.0 10/19/16 01:30 37.0 75 18 139/58 99 4.0 10/19/16 01:15 36.9 74 18 134/54 99 4.0 10/19/16 01:00 36.9 75 20 136/49 100 4.0 10/19/16 00:45 36.8 74 20 131/62 98 4.0 10/19/16 00:35 37.0 77 18 136/62 98 4.0 10/19/16 00:20 37.0 77 20 131/55 100 4.0 10/19/16 00:00 98 Nasal Cannula 4.0 10/18/16 23:30 36.8 74 18 140/54 98 4.0 10/18/16 23:00 36.9 78 21 129/52 99 4.0 10/18/16 22:30 37.0 77 20 132/50 99 4.0 10/18/16 22:00 36.9 74 20 135/53 99 4.0 10/18/16 21:45 36.9 77 20 129/51 99 4.0 10/18/16 21:30 36.9 72 18 130/53 98 4.0 10/18/16 21:15 36.9 82 18 130/48 98 4.0 10/18/16 21:05 36.9 80 18 136/49 99 4.0 10/18/16 20:39 36.9 94 18 149/62 94 Nasal Cannula 4.0 10/18/16 18:34 83 18 135/61 100 Nasal Cannula 4.0 10/18/16 17:31 86 10/18/16 17:27 99 Nasal Cannula 4.0 10/18/16 16:44 36.6 92 20 142/54 88 Nasal Cannula 4.0 General Appearance: WD/WN, no apparent distress Eyes: EOMI ENT: hearing grossly normal Neck: supple Respiratory/Chest: lungs clear, normal breath sounds, no respiratory distress Cardiovascular: regular rate, rhythm, no gallop, no murmur Abdomen: normal bowel sounds, non tender, soft Extremities: no pedal edema Neurologic/Psych: alert, normal mood/affect, oriented x 3 Skin: warm/dry, + pallor Laboratory Results Last 24 Hours Test 10/18/16 17:19 10/19/16 04:10 White Blood Count 6.77 K/uL 7.23 K/uL Red Blood Count 2.26 M/uL 2.85 M/uL Hemoglobin 5.6 g/dL 7.3 g/dL Hematocrit 20.2 % 25.5 % Mean Corpuscular Volume 89.4 fL 89.5 fL Mean Corpuscular Hemoglobin 24.8 pg 25.6 pg Mean Corpuscular Hemoglobin Concent 27.7 g/dl 28.6 g/dl Platelet Count 359 K/uL 294 K/uL Mean Platelet Volume 10.2 fL 10.0 fL Neutrophils (%) (Auto) 80.9 % Lymphocytes (%) (Auto) 11.5 % Monocytes (%) (Auto) 6.2 % Eosinophils (%) (Auto) 0.4 % Basophils (%) (Auto) 0.9 % Neutrophils # (Auto) 5.47 K/uL Lymphocytes # (Auto) 0.78 K/uL Monocytes # (Auto) 0.42 K/uL Eosinophils # (Auto) 0.03 K/uL Basophils # (Auto) 0.06 K/uL RDW Standard Deviation 56.2 fL 51.9 fL RDW Coefficient of Variation 17.1 % 15.8 % Immature Granulocyte % (Auto) 0.1 % Immature Granulocyte # (Auto) 0.01 K/uL Polychromasia 1+ Hypochromasia PRESENT Anisocytosis PRESENT Microcytosis PRESENT Prothrombin Time 15.1 SECONDS Prothromb Time International Ratio 1.4 Activated Partial Thromboplast Time 30.2 SECONDS Partial Thromboplastin Ratio 1.2 Sodium Level 144 mmol/L 148 mmol/L Potassium Level 3.1 mmol/L 3.6 mmol/L Chloride Level 105 mmol/L 109 mmol/L Carbon Dioxide Level 33 mmol/L 37 mmol/L Anion Gap 6.0 mmol/L 2.0 mmol/L Blood Urea Nitrogen 14 mg/dl 13 mg/dl Creatinine 0.85 mg/dl 0.64 mg/dl Est Creatinine Clear Calc Drug Dose 62.5 ml/min 84.0 ml/min Estimated GFR () 78.2 101.9 Estimated GFR (Non- 67.5 87.9 BUN/Creatinine Ratio 16.3 19.6 Random Glucose 206 mg/dl 104 mg/dl Calcium Level 7.9 mg/dl 7.4 mg/dl Total Bilirubin 0.4 mg/dl Direct Bilirubin 0.1 mg/dl Aspartate Amino Transf (AST/SGOT) 14 U/L Alanine Aminotransferase (ALT/SGPT) 14 U/L Alkaline Phosphatase 88 U/L Troponin I 0.021 ng/ml Total Protein 6.3 gm/dl Albumin 2.8 gm/dl Impression Patient is a 76 year old female with a history of iron deficiency anemia presenting with profound, symptomatic anemia and melena. Plan 1. Keep NPO for now. 2. EGD with Dr. Roy today. 3. Continue supportive measures with blood transfusions as ordered. 4. Continue PPI ggt. 5. Additional recommendations pending results of testing. Thank you for allowing us to participate in the care of this pleasant patient. If you have any questions or concerns, please do not hesitate to contact us. Agree with JACINTA Abel as above Abd: Soft, NT, ND, +BS Recommend EGD now for further evaluation of profound anemia.
[2016-10-19] MEDS ORDERED: PROPOFOL IV EMULSION 10 MG/ML 20 ML VIAL IV ONE (11:19)
[2016-10-19] MEDS ORDERED: LIDOCAINE HCL 2% 2 ML VIAL (20MG/ML) ONE (11:19)
--- NOTE | 2016-10-19 11:47 | GI REPORT ---
Procedure Date: 10/19/2016 11:30 AM Procedure: Upper GI endoscopy Indications: Iron deficiency anemia Medicines: Monitored Anesthesia Care Complications: No immediate complications. Estimated Blood Loss: Estimated blood loss: none. Procedure: Pre-Anesthesia Assessment: - Prior to the procedure, a History and Physical was performed, and patient medications and allergies were reviewed. The patient's tolerance of previous anesthesia was also reviewed. The risks and benefits of the procedure and the sedation options and risks were discussed with the patient. All questions were answered, and informed consent was obtained. Prior Anticoagulants: The patient last took aspirin 1 day and Xarelto (rivaroxaban) 1 day prior to the procedure. ASA Grade Assessment: IV - A patient with severe systemic disease that is a constant threat to life. After reviewing the risks and benefits, the patient was deemed in satisfactory condition to undergo the procedure. After obtaining informed consent, the endoscope was passed under direct vision. Throughout the procedure, the patient's blood pressure, pulse, and oxygen saturations were monitored continuously. The Scope was introduced through the mouth, and advanced to the second part of duodenum. The upper GI endoscopy was accomplished without difficulty. The patient tolerated the procedure well. Findings: The esophagus was normal. A small hiatus hernia was present. A small amount of food (residue) was found on the greater curvature of the stomach. The examined duodenum was normal. Impression: - Normal esophagus. - Small hiatus hernia. - A small amount of food (residue) in the stomach. - Normal examined duodenum. - No specimens collected. Recommendation: - Return patient to [facility] for [facility] care. - Advance diet as tolerated. - Continue present medications. - Would not proceed with colonoscopy unless patient has overt GI bleeding - Transfuse as needed Juan Roy, DO 10/19/2016 11:47:37 AM This report has been signed electronically. Note Initiated On: 10/19/2016 11:30 AM I attest to the content of the Intraoperative Record and orders documented therein, exceptions below
--- NOTE | 2016-10-19 13:03 | Anesthesia Progress Nt - [facility] ---
Anesthesia Post Op Note Date & Time Oct 19, 2016 at 13:01 Vital Signs Pain Intensity: 0 Vital Signs Past 12 Hours Date Time Temp Pulse Resp B/P (MAP) Pulse Ox O2 Delivery O2 Flow Rate FiO2 10/19/16 12:17 36.6 68 16 144/61 99 4.0 10/19/16 12:10 68 16 144/61 99 Nasal Cannula 4 10/19/16 11:55 70 16 142/66 99 Nasal Cannula 4 10/19/16 11:40 74 12 135/53 100 Mask 10 10/19/16 11:24 36.6 74 18 153/68 100 Nasal Cannula 4 10/19/16 11:13 36.6 80 22 140/67 100 Nasal Cannula 4.0 10/19/16 10:15 36.7 85 14 144/78 100 4.0 10/19/16 09:45 36.6 68 21 150/87 100 10/19/16 09:30 36.6 85 22 140/67 100 4.0 10/19/16 09:23 36.4 72 20 159/68 99 4.0 10/19/16 08:00 36.7 80 22 150/71 100 4.0 10/19/16 08:00 100 Nasal Cannula 4.0 10/19/16 08:00 36.7 80 22 150/71 (97) 100 Nasal Cannula 4.0 10/19/16 06:45 37.0 68 20 135/56 98 4.0 10/19/16 06:30 36.9 68 18 117/45 100 4.0 10/19/16 06:15 36.9 71 20 124/47 99 4.0 10/19/16 06:00 37.0 70 21 134/53 99 4.0 10/19/16 05:45 36.9 73 22 141/54 100 4.0 10/19/16 05:27 36.8 77 21 161/58 100 4.0 10/19/16 04:00 98 Nasal Cannula 4.0 10/19/16 03:30 36.9 74 20 125/54 98 4.0 10/19/16 03:00 36.9 73 18 138/55 98 4.0 10/19/16 03:00 36.9 73 18 138/55 98 4.0 10/19/16 02:00 37.0 76 18 144/57 98 4.0 10/19/16 01:30 37.0 75 18 139/58 99 4.0 10/19/16 01:15 36.9 74 18 134/54 99 4.0 Notes Mental Status: alert / awake / arousable, participated in evaluation Pt Amnestic to Procedure: Yes Nausea / Vomiting: adequately controlled Pain: adequately controlled Airway Patency, RR, SpO2: stable & adequate BP & HR: stable & adequate Hydration State: stable & adequate Anesthetic Complications: no major complications apparent
[2016-10-19] MEDS: FERROUS SULFATE 325 MG TAB PO SCH ×2 (13:55→17:17)
[2016-10-19] MEDS: EUCERIN CR 120 GM JAR EXT SCH ×2 (13:55→20:02)
[2016-10-19 13:57] LABS: HEMATOCRIT 31.3 % (37-47)
[2016-10-19 17:31] LABS: HEMATOCRIT 32.9 % (37-47)
--- NOTE | 2016-10-19 18:01 | Family Medicine Progress Note ---
Progress Note Date of Service Oct 19, 2016. Subjective Pt evaluation today including: conversation w/ patient, physical exam, chart review, conversation w/ information technology consultant, review of inpatient medication list Pain: none PO Intake: diet was advanced this afternoon Voiding: no voiding problems, no incontinence Lucie was admitted yesterday for occult bleed from the GI tract and was found to have Hgb of 5.6 yesterday. She has been transfused 3 units of PRBC and she has went for upper EGD. She has not had any further blood in her stool as she has not had any further bowel movements. She has been tired and has felt weak and had associated shortness of breath. Her EGD did not show any acute findings of blood loss. She denied any chest pain, cough, wheezing, bleeding or bruising, palpitations, haematuria, abdominal pain, nausea, vomiting, diarrhea, constipation, fever, night sweats or chills Additional Comments: Please see note for ROS Medications Current Inpatient Medications Medications (Trade) Dose Ordered Sig/Buddy Route Start Time Stop Time Status Last Admin Dose Admin Acetaminophen (Tylenol Tab) 650 mg Q4H PRN PO 10/18/16 18:15 11/17/16 18:14 Al Hydrox/Mg Hydrox/Simethicone (Maalox Max Susp) 15 ml Q4H PRN PO 10/18/16 18:15 11/17/16 18:14 Magnesium Hydroxide (Milk Of Magnesia Susp) 30 ml Q12H PRN PO 10/18/16 18:15 11/17/16 18:14 Ondansetron HCl (Zofran Inj) 4 mg Q6H PRN IV 10/18/16 18:15 11/17/16 18:14 Polyethylene (Miralax Powder Packet) 17 gm DAILY PRN PO 10/18/16 18:15 11/17/16 18:14 Amiodarone HCl (Cordarone Tab) 100 mg DAILY PO 10/19/16 09:00 11/18/16 08:59 10/19/16 09:28 100 MG Atorvastatin Calcium (Lipitor Tab) 80 mg DAILY PO 10/19/16 09:00 11/18/16 08:59 10/19/16 09:28 80 MG Buspirone HCl (BusPAR TAB) 15 mg TID PO 10/18/16 21:00 11/17/16 20:59 10/19/16 13:55 15 MG Diltiazem HCl (Cardizem Cd Cap) 180 mg QAM PO 10/19/16 09:00 11/18/16 08:59 10/19/16 09:27 180 MG Multi-Ingredient Ointment (Eucerin Unscented Cr) 1 appln BID EXT 10/18/16 21:00 11/17/16 20:59 10/19/16 13:55 1 APPLN Folic Acid (Folvite Tab) 1 mg DAILY PO 10/19/16 09:00 11/18/16 08:59 10/19/16 09:28 1 MG Lactobacillus Acidophilus (Floranex Tab) 1 tab TIDM PO 10/19/16 07:15 11/18/16 07:59 10/19/16 17:17 1 TAB Tiotropium [place] (Spiriva Handihaler Inhaler) 1 puff DAILY INH 10/19/16 09:00 11/18/16 08:59 10/19/16 09:28 1 PUFF Trazodone HCl (Desyrel Tab) 100 mg HS PO 10/18/16 21:00 11/17/16 20:59 10/18/16 23:14 100 MG Venlafaxine HCl (effeXOR EXTENDED REL CAP) 75 mg DAILY PO 10/19/16 09:00 11/18/16 08:59 10/19/16 09:28 75 MG Venlafaxine HCl (effeXOR EXTENDED REL CAP) 150 mg DAILY PO 10/19/16 09:00 11/18/16 08:59 10/19/16 09:28 150 MG Cholecalciferol (Vitamin D Tab) 2,000 inter.unit DAILY PO 10/19/16 09:00 11/18/16 08:59 10/19/16 09:27 2,000 INTER.UNIT Miscellaneous Information (Order Awaiting Action) 1 ea QS N/A 10/19/16 00:00 11/18/16 00:00 Ferrous Sulfate (Feosol Tab) 325 mg BID17 PO 10/19/16 10:00 11/18/16 09:59 10/19/16 17:17 325 MG Pantoprazole Sodium (Protonix Tab) 40 mg BID PO 10/19/16 21:00 11/18/16 20:59 Objective Vital Signs Date Time Temp Pulse Resp B/P (MAP) Pulse Ox O2 Delivery O2 Flow Rate FiO2 10/19/16 16:00 36.6 63 19 143/59 (87) 100 Nasal Cannula 4.0 10/19/16 16:00 100 Nasal Cannula 4.0 10/19/16 13:02 69 19 161/90 (113) 99 10/19/16 13:00 99 Nasal Cannula 4.0 10/19/16 12:48 72 22 163/73 (103) 99 10/19/16 12:32 70 22 141/81 (101) 10/19/16 12:17 36.6 68 16 144/61 99 4.0 10/19/16 12:10 68 16 144/61 99 Nasal Cannula 4 10/19/16 11:55 70 16 142/66 99 Nasal Cannula 4 10/19/16 11:40 74 12 135/53 100 Mask 10 10/19/16 11:24 36.6 74 18 153/68 100 Nasal Cannula 4 10/19/16 11:13 36.6 80 22 140/67 100 Nasal Cannula 4.0 10/19/16 10:15 36.7 85 14 144/78 100 4.0 10/19/16 09:45 36.6 68 21 150/87 100 10/19/16 09:30 36.6 85 22 140/67 100 4.0 10/19/16 09:23 36.4 72 20 159/68 99 4.0 10/19/16 08:00 36.7 80 22 150/71 100 4.0 10/19/16 08:00 100 Nasal Cannula 4.0 10/19/16 08:00 36.7 80 22 150/71 (97) 100 Nasal Cannula 4.0 10/19/16 06:45 37.0 68 20 135/56 98 4.0 10/19/16 06:30 36.9 68 18 117/45 100 4.0 10/19/16 06:15 36.9 71 20 124/47 99 4.0 10/19/16 06:00 37.0 70 21 134/53 99 4.0 10/19/16 05:45 36.9 73 22 141/54 100 4.0 10/19/16 05:27 36.8 77 21 161/58 100 4.0 10/19/16 04:00 98 Nasal Cannula 4.0 10/19/16 03:30 36.9 74 20 125/54 98 4.0 10/19/16 03:00 36.9 73 18 138/55 98 4.0 10/19/16 03:00 36.9 73 18 138/55 98 4.0 10/19/16 02:00 37.0 76 18 144/57 98 4.0 10/19/16 01:30 37.0 75 18 139/58 99 4.0 10/19/16 01:15 36.9 74 18 134/54 99 4.0 10/19/16 01:00 36.9 75 20 136/49 100 4.0 10/19/16 00:45 36.8 74 20 131/62 98 4.0 10/19/16 00:35 37.0 77 18 136/62 98 4.0 10/19/16 00:20 37.0 77 20 131/55 100 4.0 10/19/16 00:00 98 Nasal Cannula 4.0 10/18/16 23:30 36.8 74 18 140/54 98 4.0 10/18/16 23:00 36.9 78 21 129/52 99 4.0 10/18/16 22:30 37.0 77 20 132/50 99 4.0 10/18/16 22:00 36.9 74 20 135/53 99 4.0 10/18/16 21:45 36.9 77 20 129/51 99 4.0 10/18/16 21:30 36.9 72 18 130/53 98 4.0 10/18/16 21:15 36.9 82 18 130/48 98 4.0 10/18/16 21:05 36.9 80 18 136/49 99 4.0 10/18/16 20:39 36.9 94 18 149/62 94 Nasal Cannula 4.0 10/18/16 18:34 83 18 135/61 100 Nasal Cannula 4.0 Physical Exam General Appearance: WD/WN, no apparent distress, + obese, + pertinent finding ( patient appeared fatigued and pale) Eyes: normal inspection, PERRL ENT: hearing grossly normal, pharynx normal Respiratory/Chest: chest non-tender, lungs clear, no respiratory distress, no accessory muscle use, + decreased breath sounds (throughout) Cardiovascular: no edema, no JVD, no murmur Abdomen: normal bowel sounds, non tender, soft Extremities: normal range of motion, non-tender, normal inspection, no calf tenderness Neurologic/Psychiatric: alert, normal mood/affect, oriented x 3 Skin: + pallor Laboratory Results Results Past 24 Hours Test 10/19/16 04:10 10/19/16 13:10 10/19/16 17:03 Range/Units White Blood Count 7.23 4.8-10.8 K/uL Red Blood Count 2.85 4.2-5.4 M/uL Hemoglobin 7.3 9.9 10.5 12.0-16.0 g/dL Hematocrit 25.5 31.3 32.9 37-47 % Mean Corpuscular Volume 89.5 80-100 fL Mean Corpuscular Hemoglobin 25.6 25-34 pg Mean Corpuscular Hemoglobin Concent 28.6 32-36 g/dl RDW Standard Deviation 51.9 36.4-46.3 fL RDW Coefficient of Variation 15.8 11.5-14.5 % Platelet Count 294 130-400 K/uL Mean Platelet Volume 10.0 7.4-10.4 fL Sodium Level 148 136-145 mmol/L Potassium Level 3.6 3.5-5.1 mmol/L Chloride Level 109 98-107 mmol/L Carbon Dioxide Level 37 21-32 mmol/L Anion Gap 2.0 3-11 mmol/L Blood Urea Nitrogen 13 7-18 mg/dl Creatinine 0.64 0.60-1.20 mg/dl Est Creatinine Clear Calc Drug Dose 84.0 ml/min Estimated GFR () 101.9 Estimated GFR (Non- 87.9 BUN/Creatinine Ratio 19.6 10-20 Random Glucose 104 70-99 mg/dl Calcium Level 7.4 8.5-10.1 mg/dl Microbiology Results 10/18/16 MRSA DNA Surveillance Screen - Final, Complete Specimen Negative for MRSA by DNA Probe Assessment and Plan 76 y/o female with a history of atrial fibrillation, COPD, HTN, HLD, anxiety and depression, GERD, and insomnia who presented to the ED on 10/18 with anemia and melena. Pt referred to ED by PCP with Hgb of 5.7 in PCP office. Patient has had 3 blood transfusions and her most recent Hgb was 10.5. She also went for upper EGD which did not show any acute bleeding source Acute on chronic anemia with melena, presumed GI bleed--baseline hemoglobin 9- 10 within the last year - received 3 units of PRBC - most recent hgb 10.5 - upper egd did show acute source of bleeding - protonix 40 mg bid - Continue ferrous sulfate 325 mg PO BID - IVF stopped - GI on board - advance diet as tolerated Hypokalemia - Potassium 3.6 - resolved continue to monitor Atrial fibrillation--stable. Currently in sinus rhythm -Continue amiodarone 100 mg PO qd and diltiazem 180 mg PO qd -Hold Xarelto and ASA - will decide tomorrow as to what to do with regards to anticoagulation COPD--stable. Wears 4L NC continuous at home -O2 by protocol -Continue Breo, Spiriva and BIPAP at nighttime HTN--stable HLD -Continue atorvastatin 80 mg PO qd Anxiety and depression -Continue venlafaxine 225 mg PO qd and buspirone 15 mg PO TID Insomnia -Continue trazodone 100 mg PO qhs DVT prophylaxis -Hold chemical prophylaxis due to bleed -ASHLEE Sims Code Status -Level I, FULL RESUSCITATION STATUS Resident Physician Supervision Note: I was present with PGY1 Dr. Jh Arellano during the history and exam. I discussed the case with the resident and agree with the findings and plan as documented in the note. Any exceptions or clarifications are listed here: patient received 4 units of PRBCs since yesterday. Pt doing well s/p PRBCs and EGD. EGD w/o source of bleeding. Anxious to eat. Denies dyspnea. Tele stable. VSS O2 sats normal gen - nad neck - no JVD heart - RRR, s1, s2 lungs - CTA b/l abd - soft, NT ext - no edema A/P: 1. acute/chronic anemia 2. acute anemia due to acute blood loss anemia - H/H stable s/p 4 units PRBCs 3. chronic resp failure on home O2 - stable ok to d/c PPI drip place on protonix 40 BID d/c fluids spoke with GI - no plans for colonoscopy unless there is ongoing overt GI bleeding and/or drop in H/H again serial CBC consider celiac panel Jamil SIMON MD Documented By: Hunter Simon Continued [facility] stay due to: ambulation difficulties, home environment unsafe for pt
[2016-10-19] MEDS: PANTOprazole SOD 40 MG TAB PO SCH (20:02)
[2016-10-19] MEDS: TRAZODONE HCL 100 MG TAB PO SCH (20:02)
[2016-10-20 04:00] VITALS: BP 143/65; PULSE 68; TEMP 36.7; O2SAT 100
[2016-10-20 06:31] LABS: HEMATOCRIT 34.4 % (37-47); MEAN CELL VOLUME 90.3 fL (80-100); MEAN CORPUSCULAR HEMOGLOBIN 27.8 pg (25-34); MEAN CORPUSCULAR HGB CONC 30.8 g/dl (32-36); MEAN PLATELET VOLUME 10.2 fL (7.4-10.4); PLATELET COUNT 256 K/uL (130-400); RED BLOOD COUNT 3.81 M/uL (4.2-5.4)
[2016-10-20 06:58] LABS: BUN/CREATININE RATIO 11.6 (10-20); CALCIUM 7.8 mg/dl (8.5-10.1); CREATININE 0.67 mg/dl (0.60-1.20); POTASSIUM 3.2 mmol/L (3.5-5.1)
[2016-10-20 07:30] VITALS: BP 153/90; PULSE 64; TEMP 36.9; O2SAT 98
[2016-10-20] MEDS: BusPIRone 15 MG TAB PO SCH ×3 (08:34→20:33)
[2016-10-20] MEDS: AMIODARONE 200 MG TAB PO SCH (08:34)
[2016-10-20] MEDS: FERROUS SULFATE 325 MG TAB PO SCH ×2 (08:35→17:58)
[2016-10-20] MEDS: PANTOprazole SOD 40 MG TAB PO SCH ×2 (08:35→20:33)
[2016-10-20] MEDS: VENLAFAXINE HCL XR 75 MG CAPXR PO SCH (08:35)
[2016-10-20] MEDS: VENLAFAXINE HCL XR 150 MG CAPXR PO SCH (08:35)
[2016-10-20] MEDS: CHOLECALCIFEROL 1000 INTER.UNIT TAB PO SCH (08:35)
[2016-10-20] MEDS: LACTOBACILLUS ACIDOPHILUS (FLORANEX) TAB PO SCH ×3 (08:35→17:58)
[2016-10-20] MEDS: DILTIAZEM HCL 180 MG CAPCR PO SCH (08:36)
[2016-10-20] MEDS: EUCERIN CR 120 GM JAR EXT SCH ×2 (08:36→20:33)
[2016-10-20] MEDS: ATORVASTATIN 40 MG TAB PO SCH (08:36)
[2016-10-20] MEDS: TIOTROPIUM BROMIDE 5 PUFF/90 MCG INH INH SCH (08:36)
--- NOTE | 2016-10-20 10:21 | Gastroenterology Progress Note ---
Progress Note Date of Service: Oct 20, 2016 Subjective Pt evaluation today including: conversation w/ patient, physical exam Patient reports feeling well today from a GI standpoint. No further melena. She denies any abdominal pain, nausea or vomiting or other GI complaints. H&H remains stable at ~10 today. Protonix has been switched to 40 mg BID. Review of Systems Constitutional: No problem reported Respiratory: No shortness of breath Cardiac: No chest pain Abdomen: + see HPI Medications Current Inpatient Medications Medications (Trade) Dose Ordered Sig/Buddy Route Start Time Stop Time Status Last Admin Dose Admin Acetaminophen (Tylenol Tab) 650 mg Q4H PRN PO 10/18/16 18:15 11/17/16 18:14 Al Hydrox/Mg Hydrox/Simethicone (Maalox Max Susp) 15 ml Q4H PRN PO 10/18/16 18:15 11/17/16 18:14 Magnesium Hydroxide (Milk Of Magnesia Susp) 30 ml Q12H PRN PO 10/18/16 18:15 11/17/16 18:14 Ondansetron HCl (Zofran Inj) 4 mg Q6H PRN IV 10/18/16 18:15 11/17/16 18:14 Polyethylene (Miralax Powder Packet) 17 gm DAILY PRN PO 10/18/16 18:15 11/17/16 18:14 Amiodarone HCl (Cordarone Tab) 100 mg DAILY PO 10/19/16 09:00 11/18/16 08:59 10/20/16 08:34 100 MG Atorvastatin Calcium (Lipitor Tab) 80 mg DAILY PO 10/19/16 09:00 11/18/16 08:59 10/20/16 08:36 80 MG Buspirone HCl (BusPAR TAB) 15 mg TID PO 10/18/16 21:00 11/17/16 20:59 10/20/16 08:34 15 MG Diltiazem HCl (Cardizem Cd Cap) 180 mg QAM PO 10/19/16 09:00 11/18/16 08:59 10/20/16 08:36 180 MG Multi-Ingredient Ointment (Eucerin Unscented Cr) 1 appln BID EXT 10/18/16 21:00 11/17/16 20:59 10/20/16 08:36 1 APPLN Folic Acid (Folvite Tab) 1 mg DAILY PO 10/19/16 09:00 11/18/16 08:59 10/20/16 08:35 1 MG Lactobacillus Acidophilus (Floranex Tab) 1 tab TIDM PO 10/19/16 07:15 11/18/16 07:59 10/20/16 08:35 1 TAB Tiotropium [place] (Spiriva Handihaler Inhaler) 1 puff DAILY INH 10/19/16 09:00 11/18/16 08:59 10/20/16 08:36 1 PUFF Trazodone HCl (Desyrel Tab) 100 mg HS PO 10/18/16 21:00 11/17/16 20:59 10/19/16 20:02 100 MG Venlafaxine HCl (effeXOR EXTENDED REL CAP) 75 mg DAILY PO 10/19/16 09:00 11/18/16 08:59 10/20/16 08:35 75 MG Venlafaxine HCl (effeXOR EXTENDED REL CAP) 150 mg DAILY PO 10/19/16 09:00 11/18/16 08:59 10/20/16 08:35 150 MG Cholecalciferol (Vitamin D Tab) 2,000 inter.unit DAILY PO 10/19/16 09:00 11/18/16 08:59 10/20/16 08:35 2,000 INTER.UNIT Miscellaneous Information (Order Awaiting Action) 1 ea QS N/A 10/19/16 00:00 11/18/16 00:00 Ferrous Sulfate (Feosol Tab) 325 mg BID17 PO 10/19/16 10:00 11/18/16 09:59 10/20/16 08:35 325 MG Pantoprazole Sodium (Protonix Tab) 40 mg BID PO 10/19/16 21:00 11/18/16 20:59 10/20/16 08:35 40 MG Objective Vital Signs Date Time Temp Pulse Resp B/P (MAP) Pulse Ox O2 Delivery O2 Flow Rate FiO2 10/20/16 07:30 36.9 64 18 153/90 (111) 98 Nasal Cannula 4.0 10/20/16 07:30 Nasal Cannula 4.0 10/20/16 04:00 36.7 68 20 143/65 (91) 100 Nasal Cannula 4.0 10/20/16 04:00 Nasal Cannula 4.0 10/19/16 23:59 Nasal Cannula 4.0 10/19/16 23:59 36.7 74 16 149/65 (93) 100 Nasal Cannula 4.0 10/19/16 21:31 71 98 4.0 10/19/16 20:00 Nasal Cannula 4.0 10/19/16 20:00 36.6 72 18 137/62 (87) 99 Nasal Cannula 4.0 10/19/16 16:00 36.6 63 19 143/59 (87) 100 Nasal Cannula 4.0 10/19/16 16:00 100 Nasal Cannula 4.0 10/19/16 13:02 69 19 161/90 (113) 99 10/19/16 13:00 99 Nasal Cannula 4.0 10/19/16 12:48 72 22 163/73 (103) 99 10/19/16 12:32 70 22 141/81 (101) 10/19/16 12:17 36.6 68 16 144/61 99 4.0 10/19/16 12:10 68 16 144/61 99 Nasal Cannula 4 10/19/16 11:55 70 16 142/66 99 Nasal Cannula 4 10/19/16 11:40 74 12 135/53 100 Mask 10 10/19/16 11:24 36.6 74 18 153/68 100 Nasal Cannula 4 10/19/16 11:13 36.6 80 22 140/67 100 Nasal Cannula 4.0 Physical Exam General Appearance: no apparent distress Respiratory/Chest: lungs clear, normal breath sounds, no respiratory distress Cardiovascular: regular rate, rhythm Abdomen: normal bowel sounds, non tender, soft Neurologic/Psych: alert, normal mood/affect, oriented x 3 Laboratory Results Last 24 Hours Test 10/19/16 13:10 10/19/16 17:03 10/20/16 06:09 Hemoglobin 9.9 g/dL 10.5 g/dL 10.6 g/dL Hematocrit 31.3 % 32.9 % 34.4 % White Blood Count 6.60 K/uL Red Blood Count 3.81 M/uL Mean Corpuscular Volume 90.3 fL Mean Corpuscular Hemoglobin 27.8 pg Mean Corpuscular Hemoglobin Concent 30.8 g/dl RDW Standard Deviation 54.6 fL RDW Coefficient of Variation 16.5 % Platelet Count 256 K/uL Mean Platelet Volume 10.2 fL Nucleated RBC Absolute Count (auto) 0.02 K/uL Nucleated Red Blood Cells % 0.4 % Sodium Level 149 mmol/L Potassium Level 3.2 mmol/L Chloride Level 109 mmol/L Carbon Dioxide Level 35 mmol/L Anion Gap 5.0 mmol/L Blood Urea Nitrogen 8 mg/dl Creatinine 0.67 mg/dl Est Creatinine Clear Calc Drug Dose 81.3 ml/min Estimated GFR () 100.4 Estimated GFR (Non- 86.6 BUN/Creatinine Ratio 11.6 Random Glucose 83 mg/dl Calcium Level 7.8 mg/dl Assessment and Plan Patient is a 76 year old female with a history of iron deficiency anemia presenting with profound, symptomatic anemia and melena without any source of GIB on endoscopy yesterday. 1. Continue Protonix 40 mg BID. 2. No plan for colonoscopy or other GI work up as this time unless overt GIB. 3. Supportive care per primary team. Agree with JACINTA Abel as above Abd: Soft, NT, ND, +BS Continue supportive care Eating well and no Overt GI bleeding No plans for further invasive testing.
--- NOTE | 2016-10-20 10:29 | Family Medicine Progress Note ---
Progress Note Date of Service Oct 20, 2016. Subjective Pt evaluation today including: conversation w/ patient, physical exam, lab review, conversation w/ education consultant, review of inpatient medication list Pain: none PO Intake: had some toast this morning Voiding: no voiding problems, no incontinence Patient with no acute events overnight She did not have any bleeding events overnight. She still feels short of breath and fatigued but feels that her energy levels are improving. She denies any palpitations, chest pain, cough. She did a bowel movement yesterday but did not notice any blood in her stool. She denied any abdominal pain, nausea, vomiting, diarrhea or constipation. She also has not noticed any blood in her urine or any new bruises. Additional Comments: Please see above for ROS Medications Current Inpatient Medications Medications (Trade) Dose Ordered Sig/Buddy Route Start Time Stop Time Status Last Admin Dose Admin Acetaminophen (Tylenol Tab) 650 mg Q4H PRN PO 10/18/16 18:15 11/17/16 18:14 Al Hydrox/Mg Hydrox/Simethicone (Maalox Max Susp) 15 ml Q4H PRN PO 10/18/16 18:15 11/17/16 18:14 Magnesium Hydroxide (Milk Of Magnesia Susp) 30 ml Q12H PRN PO 10/18/16 18:15 11/17/16 18:14 Ondansetron HCl (Zofran Inj) 4 mg Q6H PRN IV 10/18/16 18:15 11/17/16 18:14 Polyethylene (Miralax Powder Packet) 17 gm DAILY PRN PO 10/18/16 18:15 11/17/16 18:14 Amiodarone HCl (Cordarone Tab) 100 mg DAILY PO 10/19/16 09:00 11/18/16 08:59 10/20/16 08:34 100 MG Atorvastatin Calcium (Lipitor Tab) 80 mg DAILY PO 10/19/16 09:00 11/18/16 08:59 10/20/16 08:36 80 MG Buspirone HCl (BusPAR TAB) 15 mg TID PO 10/18/16 21:00 11/17/16 20:59 10/20/16 08:34 15 MG Diltiazem HCl (Cardizem Cd Cap) 180 mg QAM PO 10/19/16 09:00 11/18/16 08:59 10/20/16 08:36 180 MG Multi-Ingredient Ointment (Eucerin Unscented Cr) 1 appln BID EXT 10/18/16 21:00 11/17/16 20:59 10/20/16 08:36 1 APPLN Folic Acid (Folvite Tab) 1 mg DAILY PO 10/19/16 09:00 11/18/16 08:59 10/20/16 08:35 1 MG Lactobacillus Acidophilus (Floranex Tab) 1 tab TIDM PO 10/19/16 07:15 11/18/16 07:59 10/20/16 08:35 1 TAB Tiotropium [place] (Spiriva Handihaler Inhaler) 1 puff DAILY INH 10/19/16 09:00 11/18/16 08:59 10/20/16 08:36 1 PUFF Trazodone HCl (Desyrel Tab) 100 mg HS PO 10/18/16 21:00 11/17/16 20:59 10/19/16 20:02 100 MG Venlafaxine HCl (effeXOR EXTENDED REL CAP) 75 mg DAILY PO 10/19/16 09:00 11/18/16 08:59 10/20/16 08:35 75 MG Venlafaxine HCl (effeXOR EXTENDED REL CAP) 150 mg DAILY PO 10/19/16 09:00 11/18/16 08:59 10/20/16 08:35 150 MG Cholecalciferol (Vitamin D Tab) 2,000 inter.unit DAILY PO 10/19/16 09:00 11/18/16 08:59 10/20/16 08:35 2,000 INTER.UNIT Miscellaneous Information (Order Awaiting Action) 1 ea QS N/A 10/19/16 00:00 11/18/16 00:00 Ferrous Sulfate (Feosol Tab) 325 mg BID17 PO 10/19/16 10:00 11/18/16 09:59 10/20/16 08:35 325 MG Pantoprazole Sodium (Protonix Tab) 40 mg BID PO 10/19/16 21:00 11/18/16 20:59 10/20/16 08:35 40 MG Objective Vital Signs Date Time Temp Pulse Resp B/P (MAP) Pulse Ox O2 Delivery O2 Flow Rate FiO2 10/20/16 07:30 36.9 64 18 153/90 (111) 98 Nasal Cannula 4.0 10/20/16 07:30 Nasal Cannula 4.0 10/20/16 04:00 36.7 68 20 143/65 (91) 100 Nasal Cannula 4.0 10/20/16 04:00 Nasal Cannula 4.0 10/19/16 23:59 Nasal Cannula 4.0 10/19/16 23:59 36.7 74 16 149/65 (93) 100 Nasal Cannula 4.0 10/19/16 21:31 71 98 4.0 10/19/16 20:00 Nasal Cannula 4.0 10/19/16 20:00 36.6 72 18 137/62 (87) 99 Nasal Cannula 4.0 10/19/16 16:00 36.6 63 19 143/59 (87) 100 Nasal Cannula 4.0 10/19/16 16:00 100 Nasal Cannula 4.0 10/19/16 13:02 69 19 161/90 (113) 99 10/19/16 13:00 99 Nasal Cannula 4.0 10/19/16 12:48 72 22 163/73 (103) 99 10/19/16 12:32 70 22 141/81 (101) 10/19/16 12:17 36.6 68 16 144/61 99 4.0 10/19/16 12:10 68 16 144/61 99 Nasal Cannula 4 10/19/16 11:55 70 16 142/66 99 Nasal Cannula 4 10/19/16 11:40 74 12 135/53 100 Mask 10 10/19/16 11:24 36.6 74 18 153/68 100 Nasal Cannula 4 10/19/16 11:13 36.6 80 22 140/67 100 Nasal Cannula 4.0 Physical Exam General Appearance: WD/WN, no apparent distress, + obese, + pertinent finding ( less pale than yesterday) Respiratory/Chest: lungs clear, no respiratory distress, no accessory muscle use, + decreased breath sounds (throughout bilaterally) Cardiovascular: no edema, no murmur, + irregularly irregular Abdomen: normal bowel sounds, non tender, soft Neurologic/Psychiatric: alert, normal mood/affect, oriented x 3 Skin: normal color, warm/dry, no rash Laboratory Results Results Past 24 Hours Test 10/19/16 13:10 10/19/16 17:03 10/20/16 06:09 Range/Units Hemoglobin 9.9 10.5 10.6 12.0-16.0 g/dL Hematocrit 31.3 32.9 34.4 37-47 % White Blood Count 6.60 4.8-10.8 K/uL Red Blood Count 3.81 4.2-5.4 M/uL Mean Corpuscular Volume 90.3 80-100 fL Mean Corpuscular Hemoglobin 27.8 25-34 pg Mean Corpuscular Hemoglobin Concent 30.8 32-36 g/dl RDW Standard Deviation 54.6 36.4-46.3 fL RDW Coefficient of Variation 16.5 11.5-14.5 % Platelet Count 256 130-400 K/uL Mean Platelet Volume 10.2 7.4-10.4 fL Nucleated RBC Absolute Count (auto) 0.02 0-0 K/uL Nucleated Red Blood Cells % 0.4 % Sodium Level 149 136-145 mmol/L Potassium Level 3.2 3.5-5.1 mmol/L Chloride Level 109 98-107 mmol/L Carbon Dioxide Level 35 21-32 mmol/L Anion Gap 5.0 3-11 mmol/L Blood Urea Nitrogen 8 7-18 mg/dl Creatinine 0.67 0.60-1.20 mg/dl Est Creatinine Clear Calc Drug Dose 81.3 ml/min Estimated GFR () 100.4 Estimated GFR (Non- 86.6 BUN/Creatinine Ratio 11.6 10-20 Random Glucose 83 70-99 mg/dl Calcium Level 7.8 8.5-10.1 mg/dl Assessment and Plan 76 y/o female with a history of atrial fibrillation, COPD, HTN, HLD, anxiety and depression, GERD, and insomnia who presented to the ED on 10/18 with anemia and melena. Pt referred to ED by PCP with Hgb of 5.7 in PCP office. Patient is currently stable. We will need to talk to her scroll assembler in order to decide as to whether or not we should restart anticoagulation Acute on chronic anemia with melena, presumed GI bleed--baseline hemoglobin 9- 10 within the last year - received 5 units of PRBC - most recent hgb 10.6 - upper egd did not show acute source of bleeding - protonix 40 mg bid - Continue ferrous sulfate 325 mg PO BID - IVF stopped - GI on board - she is eating solid foods - celiac panel pending Hypokalemia - Potassium 3.2 - resolved continue to monitor Atrial fibrillation--stable. Currently in sinus rhythm -Continue amiodarone 100 mg PO qd and diltiazem 180 mg PO qd -Hold Xarelto and ASA - will talk to patients scroll assembler today to decide if we should restart anticoagulation COPD--stable. Wears 4L NC continuous at home -O2 by protocol -Continue Breo, Spiriva and BIPAP at nighttime HTN--stable HLD -Continue atorvastatin 80 mg PO qd Anxiety and depression -Continue venlafaxine 225 mg PO qd and buspirone 15 mg PO TID Insomnia -Continue trazodone 100 mg PO qhs DVT prophylaxis -Hold chemical prophylaxis due to bleed -ASHLEE leo and SCDs Code Status -Level I, FULL RESUSCITATION STATUS Resident Physician Supervision Note: I was present with PGY1 Dr. Jh Arellano during the history and exam. I discussed the case with the resident and agree with the findings and plan as documented in the note. Any exceptions or clarifications are listed here: patient is not in a. fib. c/o severe restless legs last pm; kept her up most of last night. denies any overt GI bleeding. VSS O2 sats normal gen - nad neck - no JVD heart - RRR, s1, s2 lungs - occasional wheeze b/l, no rales abd - soft, NT ext - no edema skin - tinea pedis b/l feet A/P: 1. acute/chronic anemia 2. acute anemia due to acute blood loss anemia - H/H stable s/p 4 units PRBCs 3. chronic resp failure on home O2 - stable 4. tinea pedis 5. restless legs likely due to severe iron deficiency 6. hypernatremia 7. hypokalemia replace K D5W for 500cc in total due to high Na then saline lock IV antifungal for feet mirapex 0.25mg at HS for RLS replace iron CBC in am hopefully d/c home tomorrow Jamil SIMON MD Continued [facility] stay due to: multiple IV medications needed
[2016-10-20] MEDS: ACETAMINOPHEN 325 MG TAB PO PRN (11:07)
[2016-10-20 11:40] VITALS: BP 162/78; PULSE 68; TEMP 36.8; O2SAT 98
[2016-10-20] MEDS ORDERED: NURSING VERBAL MED ORDER ONE (12:30)
[2016-10-20] MEDS ORDERED: POTASSIUM CHLORIDE 20 MEQ TABCR PO ONE (13:00)
[2016-10-20 13:50] VITALS: BP 162/78; PULSE 68; TEMP 36.8; O2SAT 98
[2016-10-20] MEDS ORDERED: DEXTROSE 5% 500ML 500 ML IV ONE (14:30)
[2016-10-20 15:40] LABS: HEMATOCRIT 34.7 % (37-47)
[2016-10-20 15:49] VITALS: BP 136/73; PULSE 64; TEMP 36.8; O2SAT 100
[2016-10-20 16:00] VITALS: O2SAT 100
[2016-10-20] MEDS: TRAZODONE HCL 100 MG TAB PO SCH (20:33)
[2016-10-20] MEDS: TERBINAFINE CR 30 GM TUBE EXT SCH (20:33)
[2016-10-21] MEDS: PRAMIPEXOLE DIHYDROCHLORIDE 0.25MG TAB PO SCH ×2 (00:07→21:04)
[2016-10-21 00:28] VITALS: BP 113/53; PULSE 72; TEMP 36.7; O2SAT 100
[2016-10-21 06:43] LABS: HEMATOCRIT 34.4 % (37-47); MEAN CORPUSCULAR HEMOGLOBIN 27.8 pg (25-34); MEAN CORPUSCULAR HGB CONC 30.5 g/dl (32-36); MEAN PLATELET VOLUME 10.4 fL (7.4-10.4); PLATELET COUNT 259 K/uL (130-400); RED BLOOD COUNT 3.78 M/uL (4.2-5.4); WHITE BLOOD COUNT 5.48 K/uL (4.8-10.8)
[2016-10-21 07:20] VITALS: BP 140/69; PULSE 88; TEMP 36.6; O2SAT 99
[2016-10-21 07:38] LABS: BUN/CREATININE RATIO 10.5 (10-20); CALCIUM 7.7 mg/dl (8.5-10.1); CREATININE 0.76 mg/dl (0.60-1.20); MAGNESIUM 2.2 mg/dl (1.8-2.4); POTASSIUM 3.7 mmol/L (3.5-5.1)
[2016-10-21] MEDS: ATORVASTATIN 40 MG TAB PO SCH (08:18)
[2016-10-21] MEDS: TIOTROPIUM BROMIDE 5 PUFF/90 MCG INH INH SCH (08:19)
[2016-10-21] MEDS: BusPIRone 15 MG TAB PO SCH ×3 (08:19→21:04)
[2016-10-21] MEDS: VENLAFAXINE HCL XR 150 MG CAPXR PO SCH (08:19)
[2016-10-21] MEDS: VENLAFAXINE HCL XR 75 MG CAPXR PO SCH (08:19)
[2016-10-21] MEDS: CHOLECALCIFEROL 1000 INTER.UNIT TAB PO SCH (08:20)
[2016-10-21] MEDS: LACTOBACILLUS ACIDOPHILUS (FLORANEX) TAB PO SCH ×3 (08:20→17:27)
[2016-10-21] MEDS: FERROUS SULFATE 325 MG TAB PO SCH ×2 (08:20→17:27)
[2016-10-21] MEDS: POTASSIUM CHLORIDE 20 MEQ TABCR PO SCH (08:20)
[2016-10-21] MEDS: PANTOprazole SOD 40 MG TAB PO SCH ×2 (08:20→21:04)
[2016-10-21] MEDS: DILTIAZEM HCL 180 MG CAPCR PO SCH (08:21)
[2016-10-21] MEDS: AMIODARONE 200 MG TAB PO SCH (08:21)
[2016-10-21] MEDS: TERBINAFINE CR 30 GM TUBE EXT SCH ×2 (08:22→21:05)
[2016-10-21] MEDS: EUCERIN CR 120 GM JAR EXT SCH ×2 (08:22→20:00)
--- NOTE | 2016-10-21 12:48 | Family Medicine Progress Note ---
Progress Note Date of Service Oct 21, 2016. Subjective Pt evaluation today including: conversation w/ patient, physical exam, chart review, conversation w/ it security consultant, review of inpatient medication list Pain: none PO Intake: good Voiding: no voiding problems, no incontinence Patient with no acute events overnight She did mention that she has had some worsening shortness of breath despite her saturations being good on her home 4L. She also says that she has had a stuffy nose, headache and scratchy throat. Otherwise we discussed anticoagulation and we discussed the risks and benefits of restarting anticoagulation. It was decided to restart aspirin but hold off on the xarelto for 5-7 days and for her to make that decision with her PCP. She has denies any chest pain, cough, wheezing, fevers, night sweats, chills, diarrhea, constipation, worsening bleeding Additional Comments: Please see above for ROS Medications Current Inpatient Medications Medications (Trade) Dose Ordered Sig/Buddy Route Start Time Stop Time Status Last Admin Dose Admin Acetaminophen (Tylenol Tab) 650 mg Q4H PRN PO 10/18/16 18:15 11/17/16 18:14 10/20/16 11:07 650 MG Al Hydrox/Mg Hydrox/Simethicone (Maalox Max Susp) 15 ml Q4H PRN PO 10/18/16 18:15 11/17/16 18:14 Magnesium Hydroxide (Milk Of Magnesia Susp) 30 ml Q12H PRN PO 10/18/16 18:15 11/17/16 18:14 Ondansetron HCl (Zofran Inj) 4 mg Q6H PRN IV 10/18/16 18:15 11/17/16 18:14 Polyethylene (Miralax Powder Packet) 17 gm DAILY PRN PO 10/18/16 18:15 11/17/16 18:14 Amiodarone HCl (Cordarone Tab) 100 mg DAILY PO 10/19/16 09:00 11/18/16 08:59 10/21/16 08:21 100 MG Atorvastatin Calcium (Lipitor Tab) 80 mg DAILY PO 10/19/16 09:00 11/18/16 08:59 10/21/16 08:18 80 MG Buspirone HCl (BusPAR TAB) 15 mg TID PO 10/18/16 21:00 11/17/16 20:59 10/21/16 08:19 15 MG Diltiazem HCl (Cardizem Cd Cap) 180 mg QAM PO 10/19/16 09:00 11/18/16 08:59 10/21/16 08:21 180 MG Multi-Ingredient Ointment (Eucerin Unscented Cr) 1 appln BID EXT 10/18/16 21:00 11/17/16 20:59 10/21/16 08:22 1 APPLN Folic Acid (Folvite Tab) 1 mg DAILY PO 10/19/16 09:00 11/18/16 08:59 10/21/16 08:19 1 MG Lactobacillus Acidophilus (Floranex Tab) 1 tab TIDM PO 10/19/16 07:15 11/18/16 07:59 10/21/16 08:20 1 TAB Tiotropium [place] (Spiriva Handihaler Inhaler) 1 puff DAILY INH 10/19/16 09:00 11/18/16 08:59 10/21/16 08:19 1 PUFF Trazodone HCl (Desyrel Tab) 100 mg HS PO 10/18/16 21:00 11/17/16 20:59 10/20/16 20:33 100 MG Venlafaxine HCl (effeXOR EXTENDED REL CAP) 75 mg DAILY PO 10/19/16 09:00 11/18/16 08:59 10/21/16 08:19 75 MG Venlafaxine HCl (effeXOR EXTENDED REL CAP) 150 mg DAILY PO 10/19/16 09:00 11/18/16 08:59 10/21/16 08:19 150 MG Cholecalciferol (Vitamin D Tab) 2,000 inter.unit DAILY PO 10/19/16 09:00 11/18/16 08:59 10/21/16 08:20 2,000 INTER.UNIT Miscellaneous Information (Order Awaiting Action) 1 ea QS N/A 10/19/16 00:00 11/18/16 00:00 Ferrous Sulfate (Feosol Tab) 325 mg BID17 PO 10/19/16 10:00 11/18/16 09:59 10/21/16 08:20 325 MG Pantoprazole Sodium (Protonix Tab) 40 mg BID PO 10/19/16 21:00 11/18/16 20:59 10/21/16 08:20 40 MG Potassium Chloride (Klor-Con Tab) 20 meq QAM PO 10/21/16 08:00 11/20/16 08:59 10/21/16 08:20 20 MEQ Terbinafine HCl (Lamisil At Cream) 1 appl BID EXT 10/20/16 20:00 11/19/16 19:59 10/21/16 08:22 1 APPL Pramipexole Dihydrochloride (miraPEX TAB) 0.25 mg HS PO 10/20/16 23:45 11/19/16 23:44 10/21/16 00:07 0.25 MG Objective Vital Signs Date Time Temp Pulse Resp B/P (MAP) Pulse Ox O2 Delivery O2 Flow Rate FiO2 10/21/16 08:11 Nasal Cannula 4.0 10/21/16 07:20 36.6 88 18 140/69 (92) 99 Nasal Cannula 4.0 10/21/16 00:28 36.7 72 16 113/53 (73) 100 Nasal Cannula 4.0 10/21/16 00:00 Nasal Cannula 4.0 10/20/16 16:00 100 Nasal Cannula 4.0 10/20/16 15:49 36.8 64 19 136/73 (94) 100 Nasal Cannula 4.0 10/20/16 14:30 Nasal Cannula 4.0 10/20/16 13:50 36.8 68 18 98 4.0 Physical Exam Notes: General Appearance: WD/WN, no apparent distress, + obese Respiratory/Chest: lungs clear, no respiratory distress, no accessory muscle use, mild wheeze in the right lung, no wheeze on the left + decreased breath sounds (throughout bilaterally) Cardiovascular: no edema, no murmur, + irregularly irregular Abdomen: normal bowel sounds, non tender, soft Neurologic/Psychiatric: alert, normal mood/affect, oriented x 3 Skin: normal color, warm/dry, no rash Laboratory Results Results Past 24 Hours Test 10/20/16 15:29 10/21/16 06:08 Range/Units Hemoglobin 10.5 10.5 12.0-16.0 g/dL Hematocrit 34.7 34.4 37-47 % White Blood Count 5.48 4.8-10.8 K/uL Red Blood Count 3.78 4.2-5.4 M/uL Mean Corpuscular Volume 91.0 80-100 fL Mean Corpuscular Hemoglobin 27.8 25-34 pg Mean Corpuscular Hemoglobin Concent 30.5 32-36 g/dl RDW Standard Deviation 55.3 36.4-46.3 fL RDW Coefficient of Variation 16.6 11.5-14.5 % Platelet Count 259 130-400 K/uL Mean Platelet Volume 10.4 7.4-10.4 fL Sodium Level 148 136-145 mmol/L Potassium Level 3.7 3.5-5.1 mmol/L Chloride Level 107 98-107 mmol/L Carbon Dioxide Level 38 21-32 mmol/L Anion Gap 3.0 3-11 mmol/L Blood Urea Nitrogen 8 7-18 mg/dl Creatinine 0.76 0.60-1.20 mg/dl Est Creatinine Clear Calc Drug Dose 71.6 ml/min Estimated GFR () 89.6 Estimated GFR (Non- 77.3 BUN/Creatinine Ratio 10.5 10-20 Random Glucose 95 70-99 mg/dl Calcium Level 7.7 8.5-10.1 mg/dl Magnesium Level 2.2 1.8-2.4 mg/dl Assessment and Plan 76 y/o female with a history of atrial fibrillation, COPD, HTN, HLD, anxiety and depression, GERD, and insomnia who presented to the ED on 10/18 with anemia and melena. Pt referred to ED by PCP with Hgb of 5.7 in PCP office. Patient was transfused 5 units of blood and had a upper EGD which did not find any source of bleeding. She is now complaining of worsening shortness of breath and a cold Acute on chronic anemia with melena, presumed GI bleed--baseline hemoglobin 9- 10 within the last year - received 5 units of PRBC - most recent hgb 10.5, stable - upper egd did not show acute source of bleeding - protonix 40 mg bid - Continue ferrous sulfate 325 mg PO BID - GI on board - she is eating solid foods - celiac panel pending Hypokalemia - Potassium 3.7 - resolved continue to monitor Atrial fibrillation--stable. Currently in sinus rhythm -Continue amiodarone 100 mg PO qd and diltiazem 180 mg PO qd - discussed and decided to restart aspirin and hold xarelto COPD--stable. Wears 4L NC continuous at home - Will Order CXR and mucinex for worsening shortness of breath -O2 by protocol -Continue Breo, Spiriva and BIPAP at nighttime - Also ordered flonase nasal spray HTN--stable HLD -Continue atorvastatin 80 mg PO qd Anxiety and depression -Continue venlafaxine 225 mg PO qd and buspirone 15 mg PO TID Insomnia -Continue trazodone 100 mg PO qhs DVT prophylaxis -Hold chemical prophylaxis due to bleed -ASHLEE hose and SCDs Dispo - PT/OT ordered Code Status -Level I, FULL RESUSCITATION STATUS Resident Physician Supervision Note: I was present with PGY1 Dr. Jh Arellano during the history and exam. I discussed the case with the resident and agree with the findings and plan as documented in the note. Any exceptions or clarifications are listed here: patient is not in a. fib and only received FOUR units of PRBCs. restless legs last pm better with mirapex asks for such again tonight no overt GI bleeding eating fine w/o GI symptoms now with sore throat, nasal congestion, mild cough and slight worsening in her baseline dyspnea VSS O2 sats normal gen - nad neck - no JVD heart - RRR, s1, s2 lungs - decreased BS b/l but no wheeze or rales abd - soft, NT ext - no edema skin - tinea pedis b/l feet A/P: 1. acute/chronic anemia 2. acute anemia due to acute blood loss anemia - H/H stable s/p 4 units PRBCs 3. chronic resp failure on home O2 - stable 4. tinea pedis 5. restless legs likely due to severe iron deficiency 6. hypernatremia - improving 7. hypokalemia - resolved 8. URI; chest x-ray today without evidence of pneumonia PT, OT evals obtained - cleared for home holding anticoagulation due to the severity of her anemia/presumed GI bleed will resume low-dose asa, however mucinex, flonase, duonebs q6h for URI/COPD symptoms hopefully d/c home tomorrow Jamil SIMON MD Continued [facility] stay due to: home environment unsafe for pt
--- NOTE | 2016-10-21 13:29 | DIAGNOSTIC IMAGING REPORT ---
CHEST 2 VIEWS ROUTINE CLINICAL HISTORY: Shortness of breath dyspnea COMPARISON STUDY: 10/18/2016 FINDINGS: Interval development is mild pleural fluid left base laterally. Lungs otherwise appear clear. No evidence for cardiac enlargement. IMPRESSION: Trace pleural fluid left base. Otherwise negative study Electronically signed by: Jose Angel Richter M.D. 10/21/2016 1:28 PM Dictated Date/Time: 10/21/2016 1:27 PM
[2016-10-21 16:06] VITALS: BP 136/76; PULSE 64; TEMP 36.6; O2SAT 100
[2016-10-21 16:20] LABS: BUN/CREATININE RATIO 7.7 (10-20); CREATININE 0.79 mg/dl (0.60-1.20); POTASSIUM 3.7 mmol/L (3.5-5.1)
[2016-10-21] MEDS ORDERED: ALBUT/IPRATROP 3MG/0.5MG NEB 3 ML VIAL INH PRN (16:30)
[2016-10-21 17:00] LABS: CALCIUM 8.4 mg/dl (8.5-10.1)
[2016-10-21] MEDS: ALBUT/IPRATROP 3MG/0.5MG NEB 3 ML VIAL INH SCH (18:50)
[2016-10-21 19:10] VITALS: PULSE 88; O2SAT 95
[2016-10-21] MEDS: TRAZODONE HCL 100 MG TAB PO SCH (21:04)
[2016-10-22] VITALS (7 sets, daily range): BP systolic 128–167; BP diastolic 51–75; PULSE 67–90; TEMP 36.6–36.8; O2SAT 98–100
[2016-10-22] MEDS: ALBUT/IPRATROP 3MG/0.5MG NEB 3 ML VIAL INH SCH ×4 (07:03→18:55)
--- NOTE | 2016-10-22 08:14 | Family Medicine Progress Note ---
Progress Note Date of Service Oct 22, 2016. Subjective Pt evaluation today including: conversation w/ patient, conversation w/ family , physical exam, chart review, lab review, review of studies, conversation w/ client relationship consultant, review of inpatient medication list Patient states that she does not feel too well this morning, because she feels like she is getting a cold. She feels like she is stuffed up and she is fatigued. But she otherwise denies SOB on baseline supplemental oxygen of 4L. She denies CP, palpitations, lightheadedness also, including during ambulation in the lerma. She says the medication has significantly improved her restless leg syndrome. Discussion was had regarding PO hydration. Patient admits to drink 3 very large tumblers of coffee daily and very little water. Advised her to increase PO hydration with water, which will likely help to improve her serum sodium levels. Patient states understanding and willingness to try. All Other Systems: Reviewed and Negative Objective Vital Signs Date Time Temp Pulse Resp B/P (MAP) Pulse Ox O2 Delivery O2 Flow Rate FiO2 10/22/16 07:03 85 18 98 Nasal Cannula 4.0 10/22/16 01:14 Nasal Cannula 4.0 10/22/16 00:04 36.8 67 18 128/51 (76) 98 4.0 10/21/16 20:09 Nasal Cannula 4.0 10/21/16 19:10 88 18 95 Nasal Cannula 3.0 10/21/16 16:11 Nasal Cannula 4.0 10/21/16 16:06 36.6 64 19 136/76 (96) 100 Nasal Cannula 4.0 Physical Exam General Appearance: WD/WN, no apparent distress Eyes: normal inspection ENT: hearing grossly normal, pharynx normal Neck: supple, no adenopathy, thyroid normal, no JVD Respiratory/Chest: lungs clear, normal breath sounds, no respiratory distress, no accessory muscle use Cardiovascular: regular rate, rhythm, no edema, no JVD, no murmur Abdomen: normal bowel sounds, non tender, soft Extremities: normal inspection, no pedal edema, no calf tenderness Neurologic/Psychiatric: alert, normal mood/affect, oriented x 3 Skin: normal color, warm/dry, no rash Laboratory Results Results Past 24 Hours Test 10/22/16 06:46 10/22/16 09:30 Range/Units Hemoglobin 10.3 12.0-16.0 g/dL Sodium Level 149 136-145 mmol/L Potassium Level 4.3 3.5-5.1 mmol/L Chloride Level 105 98-107 mmol/L Carbon Dioxide Level 39 21-32 mmol/L Anion Gap 5.0 3-11 mmol/L Blood Urea Nitrogen 9 7-18 mg/dl Creatinine 0.71 0.60-1.20 mg/dl Est Creatinine Clear Calc Drug Dose 76.7 ml/min Estimated GFR () 97.3 Estimated GFR (Non- 83.9 BUN/Creatinine Ratio 12.3 10-20 Random Glucose 110 70-99 mg/dl Calcium Level 8.2 8.5-10.1 mg/dl Urine Color YELLOW Urine Appearance CLEAR CLEAR Urine pH 6.0 4.5-7.5 Urine Specific [place] 1.016 1.000-1.030 Urine Protein NEG NEG Urine Glucose (UA) NEG NEG Urine Ketones NEG NEG Urine Occult Blood NEG NEG Urine Nitrite NEG NEG Urine Bilirubin NEG NEG Urine Urobilinogen NEG NEG Urine Leukocyte Esterase NEG NEG Urine WBC (Auto) 1-5 0-5 /hpf Urine RBC (Auto) 0-4 0-4 /hpf Urine Hyaline Casts (Auto) 1-5 0-5 /lpf Urine Epithelial Cells (Auto) >30 0-5 /lpf Urine Bacteria (Auto) NEG NEG Urine Yeast (Auto) BUDDING NONE PRSENT Microbiology Results 10/22/16 Urine Culture, Received Pending Assessment and Plan 76 y/o female with a history of a.fib, COPD, HTN, HLD, anxiety and depression, GERD, and insomnia who presented to the ED on 10/18 with anemia and melena. Pt referred to ED by PCP with Hgb of 5.7 in PCP office. Patient was transfused 5 units of blood and had a upper EGD which did not find any source of bleeding. She is now complaining of worsening shortness of breath and a cold Acute on chronic anemia with melena, presumed GI bleed--baseline hemoglobin 9- 10 within the last year. s/p pRBC x 5 units. GI recs appreciated. EGD negative for acute source of bleeding. Hgb stable at ~10.3 - Continue ferrous sulfate 325 mg PO BID - Protonix 40 mg BID - Celiac panel pending i) Restless legs - likely due to severe iron deficiency - Started pramipexole 0.25mg qHS - Ferritin to be checked in ~2months, medication can be discontinued once ferritin >50 COPD--stable. Wears 4L NC continuous at home. CXR 10/21/16 grossly unremarkable - Continue supplemental O2 by protocol - Continue Breo, Spiriva and BIPAP at nighttime - Flonase nasal spray + saline nasal spray + Mucinex for upper respiratory symptoms Hypernatremia - Longstanding high normal range from 145-150, likely secondary to increased caffeine intake and poor water intake - Monitor BMP - Encourage increase PO water intake Hypokalemia - resolved - Currently potassium 4.3 - Monitor BMP Atrial fibrillation--stable. Currently in sinus rhythm - Continue amiodarone 100 mg PO qd and diltiazem 180 mg PO qd - Restart aspirin and holding Xarelto - discussed with patient and daughter, who are agreeable HTN--stable range - Continue diltiazem 180mg qAM HLD -Continue atorvastatin 80 mg PO qd Anxiety and depression -Continue venlafaxine 225 mg PO qd and buspirone 15 mg PO TID Insomnia -Continue trazodone 100 mg PO qhs DVT prophylaxis -Hold chemical prophylaxis due to bleed -ASHLEE leo and SCDs Dispo - PT/OT ordered - cleared for discharge to home once medically ready FULL RESUSCITATION STATUS Resident Physician Supervision Note: I was present with PGY1 Dr. Anila Aviles during the history and exam. I discussed the case with the resident and agree with the findings and plan as documented in the note. Any exceptions or clarifications are listed here: none. continues with nasal congestion and mild cough but denies significant dyspnea ( other than baseline dyspnea) feels tired craving ice admits to poor H20 consumption VSS O2 sats normal gen - nad neck - no JVD heart - RRR, s1, s2 lungs - decreased BS b/l but no wheeze or rales abd - soft, NT ext - no edema skin - tinea pedis b/l feet improved A/P: 1. acute/chronic anemia 2. acute anemia due to acute blood loss anemia - H/H stable s/p 4 units PRBCs 3. chronic resp failure on home O2 - stable 4. tinea pedis 5. restless legs likely due to severe iron deficiency 6. hypernatremia - ongoing - due to poor water intake; no signs of diabetes insipidus (s.g. on u/a 1.015, not making 4-5 liters of urine daily, etc) 7. hypokalemia - resolved 8. URI; chest x-ray yesterday without evidence of pneumonia PT, OT evals obtained - cleared for home holding anticoagulation due to the severity of her anemia/presumed GI bleed -- will address in outpatient setting (daughter informed of this plan as well) resumed low-dose asa mucinex, flonase, duonebs q6h for URI/COPD symptoms; add nasal saline hopefully d/c home tomorrow Jamil SIMON MD Continued [facility] stay due to: other Discharge planning: home Resident Tracking Resident Involvement: Resident Care Provided Care Provided: Adult Hospital Medicine
[2016-10-22 08:18] LABS: BUN/CREATININE RATIO 12.3 (10-20); CALCIUM 8.2 mg/dl (8.5-10.1); CREATININE 0.71 mg/dl (0.60-1.20); POTASSIUM 4.3 mmol/L (3.5-5.1)
[2016-10-22] MEDS: LACTOBACILLUS ACIDOPHILUS (FLORANEX) TAB PO SCH ×3 (08:20→17:16)
[2016-10-22] MEDS: VENLAFAXINE HCL XR 75 MG CAPXR PO SCH (08:20)
[2016-10-22] MEDS: CHOLECALCIFEROL 1000 INTER.UNIT TAB PO SCH (08:20)
[2016-10-22] MEDS: VENLAFAXINE HCL XR 150 MG CAPXR PO SCH (08:20)
[2016-10-22] MEDS: DILTIAZEM HCL 180 MG CAPCR PO SCH (08:20)
[2016-10-22] MEDS: ASPIRIN 81 MG ECTAB PO SCH (08:20)
[2016-10-22] MEDS: FERROUS SULFATE 325 MG TAB PO SCH ×2 (08:21→17:16)
[2016-10-22] MEDS: ATORVASTATIN 40 MG TAB PO SCH (08:21)
[2016-10-22] MEDS: POTASSIUM CHLORIDE 20 MEQ TABCR PO SCH (08:22)
[2016-10-22] MEDS: PANTOprazole SOD 40 MG TAB PO SCH ×2 (08:22→20:57)
[2016-10-22] MEDS: BusPIRone 15 MG TAB PO SCH ×3 (08:22→20:57)
[2016-10-22] MEDS: AMIODARONE 200 MG TAB PO SCH (08:23)
[2016-10-22] MEDS: TERBINAFINE CR 30 GM TUBE EXT SCH ×2 (08:24→20:00)
[2016-10-22] MEDS: FLUTICASONE PROPIONATE NA SPR 16 GM BTL SCH (08:24)
[2016-10-22] MEDS: EUCERIN CR 120 GM JAR EXT SCH ×2 (08:24→20:00)
[2016-10-22] MEDS ORDERED: DEXTROSE 5% 500ML 500 ML IV ONE (08:45)
[2016-10-22 09:59] LABS: URINE APPEARANCE CLEAR (CLEAR); URINE BILIRUBIN NEG (NEG); URINE COLOR YELLOW; URINE EPITHELIAL CELL AUTO >30 /lpf (0-5); URINE NITRITE NEG (NEG); URINE SPECIFIC GRAVITY 1.016 (1.000-1.030); UROBILINOGEN NEG (NEG); ZZURINE CULT IF INDIC CATH YES
[2016-10-22 10:00] LABS: MANUAL MICROSCOPIC REQUIRED? NO; REVIEW REQ? YES
[2016-10-22] MEDS: ACETAMINOPHEN 325 MG TAB PO PRN (11:29)
[2016-10-22] MEDS ORDERED: GUAIFENESIN 600 MG TABCR PO ONE (15:57)
[2016-10-22] MEDS: SODIUM CHLORIDE 0.65% NA SOLN 45 ML (OCEAN) SCH (17:18)
[2016-10-22] MEDS: GUAIFENESIN 600 MG TABCR PO SCH (20:57)
[2016-10-22] MEDS: TRAZODONE HCL 100 MG TAB PO SCH (20:57)
[2016-10-22] MEDS: PRAMIPEXOLE DIHYDROCHLORIDE 0.25MG TAB PO SCH (20:57)
[2016-10-23 00:41] VITALS: BP 98/62; PULSE 72; TEMP 36.6; O2SAT 96
[2016-10-23 01:42] LABS: IGA SERUM 217 mg/dL (81-463); TIS TRANS IGA 1 U/mL (<4)
[2016-10-23] MEDS: SODIUM CHLORIDE 0.65% NA SOLN 45 ML (OCEAN) SCH ×3 (06:04→11:35)
[2016-10-23 06:05] LABS: HEMATOCRIT 35.5 % (37-47); MEAN CELL VOLUME 94.4 fL (80-100); MEAN CORPUSCULAR HEMOGLOBIN 28.7 pg (25-34); MEAN CORPUSCULAR HGB CONC 30.4 g/dl (32-36); MEAN PLATELET VOLUME 11.2 fL (7.4-10.4); PLATELET COUNT 223 K/uL (130-400); RED BLOOD COUNT 3.76 M/uL (4.2-5.4); WHITE BLOOD COUNT 6.17 K/uL (4.8-10.8)
[2016-10-23 06:56] VITALS: PULSE 88; O2SAT 98
[2016-10-23] MEDS: ALBUT/IPRATROP 3MG/0.5MG NEB 3 ML VIAL INH SCH ×2 (06:56→10:59)
[2016-10-23 07:14] VITALS: BP 156/64; PULSE 85; TEMP 36.8; O2SAT 98
[2016-10-23 07:42] LABS: BUN/CREATININE RATIO 13.2 (10-20); CALCIUM 8.5 mg/dl (8.5-10.1); CREATININE 0.79 mg/dl (0.60-1.20); POTASSIUM 3.9 mmol/L (3.5-5.1)
[2016-10-23] MEDS: PANTOprazole SOD 40 MG TAB PO SCH (08:26)
[2016-10-23] MEDS: LACTOBACILLUS ACIDOPHILUS (FLORANEX) TAB PO SCH ×2 (08:26→11:35)
[2016-10-23] MEDS: ATORVASTATIN 40 MG TAB PO SCH (08:26)
[2016-10-23] MEDS: ASPIRIN 81 MG ECTAB PO SCH (08:26)
[2016-10-23] MEDS: VENLAFAXINE HCL XR 150 MG CAPXR PO SCH (08:27)
[2016-10-23] MEDS: VENLAFAXINE HCL XR 75 MG CAPXR PO SCH (08:27)
[2016-10-23] MEDS: FERROUS SULFATE 325 MG TAB PO SCH (08:27)
[2016-10-23] MEDS: CHOLECALCIFEROL 1000 INTER.UNIT TAB PO SCH (08:27)
[2016-10-23] MEDS: BusPIRone 15 MG TAB PO SCH ×2 (08:27→13:37)
[2016-10-23] MEDS: POTASSIUM CHLORIDE 20 MEQ TABCR PO SCH (08:27)
[2016-10-23] MEDS: GUAIFENESIN 600 MG TABCR PO SCH (08:29)
[2016-10-23] MEDS: AMIODARONE 200 MG TAB PO SCH (08:29)
[2016-10-23] MEDS: DILTIAZEM HCL 180 MG CAPCR PO SCH (08:29)
[2016-10-23] MEDS: FLUTICASONE PROPIONATE NA SPR 16 GM BTL SCH (08:29)
[2016-10-23] MEDS: EUCERIN CR 120 GM JAR EXT SCH (08:30)
[2016-10-23] MEDS: TERBINAFINE CR 30 GM TUBE EXT SCH (08:30)
[2016-10-23 11:00] VITALS: PULSE 75; O2SAT 97
[2016-10-23] MEDS ORDERED: MRLP17X PO (12:07)
[2016-10-23] MEDS ORDERED: MRP25 PO (12:07)
[2016-10-23] MEDS ORDERED: FLNIN (12:07)
[2016-10-23] MEDS ORDERED: SALI0.6510 (12:07)
[2016-10-23] MEDS ORDERED: GFNSR600 PO (12:07)
[2016-10-23] MEDS ORDERED: MOMLX PO (13:11)
--- NOTE | 2016-10-23 13:37 | Discharge Instructions ---
Discharge Instructions Date of Service Oct 23, 2016. Admission Reason for Admission: Gi Bleed, Symptomatic Anemia Discharge Discharge Diagnosis / Problem: Worsening chronic anemia with melena Discharge Goals Goal(s): Decrease discomfort, Improve disease control, Diagnostic testing, Therapeutic intervention, Screening, Prevent Disease Progression Activity Recommendations Activity Limitations: resume your previous activity . Instructions / Follow-Up Instructions / Follow-Up Severe anemia with blood in stool - With blood transfusion, there was significant improvement in your hemoglobin levels, it is up to 10.8 on discharge - Continue iron supplements, ferrous sulfate 325mg twice daily. The best way is to take the medications on an empty stomach and take with orange juice. - Iron can make you constipated, so along with keep well hydrated, you may need to take Miralax and/or milk of magnesia if you are feeling constipated. Taking at least one of them regularly may help keep your bowel movements regular - At discharge, you have resumed aspirin but stopped your Xarelto - You have an appointment on October 26 at 11:00am with Ray Pereira. Please discuss with him the risks/benefits of restarting Xarelto - You have another appointment with JULIET York (Rachelle) on October 28 at 2:40pm. Please attend this visit to discuss any further testing, if warranted. Restless legs - Continue pramipexole 0.25mg nightly for your restless legs. - Have your family doctor check your ferritin level in 2 months, the pramipexole can be discontinued once ferritin level is greater than 50 High salt levels in blood - This is likely due to inadequate poor water intake, worsened by high intake of coffee (coffee causes water to leave the body by increasing urination) - Do your best to increase your intake of water! COPD - Stable during admission - Continue wearing oxygen 4L NC continuously at home as well as your inhalers and nebulizers as before - You have a cold currently, for which you can use the Flonase nasal spray + saline nasal spray + Mucinex for a week, or until the symptoms resolve Atrial fibrillation - Stable.Currently in sinus rhythm - Continue amiodarone 100 mg PO daily and diltiazem 180 mg PO daily, but do NOT resume taking Xarelto Athlete's Foot - Continue applying the Lamisil cream to your feet. If improving but not resolved, more cream can be purchased over the counter. Continue all other home medications as before Current Hospital Diet Patient's current hospital diet: Low Sodium Diet (2gm Na) Discharge Diet Recommended Diet: Low Sodium Diet (2gm Na) Pending Studies Studies pending at discharge: no Laboratory Results Hemoglobin A1c Test 10/18/16 14:44 Range/Units Estimated Average Glucose 120 mg/dl Hemoglobin A1c 5.8 H 4.5-5.6 % Lipid Panel Test 10/18/16 14:44 Range/Units Triglycerides Level 92 0-150 mg/dl Cholesterol Level 142 0-200 mg/dl HDL Cholesterol 65 mg/dl Cholesterol/HDL Ratio 2.2 LDL Cholesterol, Calculated 59 mg/dl Medical Emergencies . Who to Call and When: Medical Emergencies: If at any time you feel your situation is an emergency, please call 911 immediately. . Non-Emergent Contact Non-Emergency issues call your: Primary Care Provider, [facility] . . "Provider Documentation" section prepared by Anila Aviles. Attending Attestation: Discharge care plan d/w PGY1 Dr. Anila Aviles on day of discharge; I agree with her instructions as outlined. Hunter Trimble MD . VTE Core Measure Inpt VTE Proph given/why not?: Marleny Thorpe, DONALD's
[2016-10-23 13:50] VITALS: BP 156/64; PULSE 75; TEMP 36.8; O2SAT 97
--- NOTE | 2016-10-23 21:09 | Discharge Summary ---
Discharge Summary Date of Service Oct 23, 2016. (Alka. Aviles MD) Discharge Summary Admission Date: Oct 18, 2016 at 17:58 Discharge Date: Oct 23, 2016 Discharge Disposition: Home Principal Diagnosis: Worsening chronic anemia with melena Immunizations: Have You Had Influenza Vaccine: Yes Influenza Vaccine Date: Apr 12, 2013 History of Tetanus Vaccine?: Unknown Tetanus Immunization Date: Nov 09, 2007 History of Pneumococcal: Yes Pneumococcal Date: Mar 10, 2011 History of Hepatitis B Vaccine: No (Alka. Aviles MD) Problems/Secondary Diagnoses: 1. acute blood loss anemia 2. iron deficiency anemia 3. restless legs syndrome due to low iron 4. a.fib 5, chronic hypoxic respiratory failure on home O2 6. COPD 7. HTN 8. hyperlipidemia 9. anxiety and depression 10. GERD 11. insomnia 12. tinea pedis 13. hypernatremia - Na of 147 at discharge Procedures: PRBCs x 4 units (Hunter Trimble MD) Medication Reconciliation New Medications: Fluticasone Propionate (Fluticasone Propionate) 50 Mcg/Act Spr 2 SPRAYS NA DAILY, #1 BTL Guaifenesin Ext Rel (Mucinex Ext Rel) 600 Mg Tabcr 1200 MG PO Q12, #14 TAB Magnesium Hydroxide (Milk of Magnesia) 30 Ml Susp 30 ML PO Q12H PRN for Constipation, #100 ML 2 Refills Polyethylene (Miralax) 17 Gm Pow 17 GM PO DAILY PRN for Constipation, #30 EA 1 Refill Pramipexole Dihydrochloride (Pramipexole Dihydrochlori) 0.25 Mg Tab 0.25 MG PO HS, #30 TAB 2 Refills Saline ([place] Nasal [place]) 0.65 % Spr 2 SPRAYS NA Q6HWA, #1 BTL 2 Refills Continued Medications: Amiodarone HCl (Amiodarone HCl) 200 Mg Tab 100 MG PO DAILY for 30 Days, #15 TAB Aspirin (Aspirin Ec) 81 Mg Tab 81 MG PO DAILY Atorvastatin (Lipitor) 80 Mg Tab 80 MG PO DAILY Buspirone HCl (Buspirone HCl) 15 Mg Tab 15 MG PO TID Cholecalciferol (Vitamin D) 2,000 Unit Tab 2000 INTER.UNIT PO DAILY Diltiazem HCl (Diltiazem HCl ER) 180 Mg Capcr 180 MG PO QAM for 30 Days, #30 TABS 2 Refills Eucerin (Hydrocerin) 360 Appln/120 Gm Cr 1 APPLN EXT BID, #1 TUBE Ferrous Sulfate (Kp Ferrous Sulfate) 325 Mg Tab 1 TAB PO BID Fluticasone Furoate-Vilanterol (Breo Ellipta) 1 Inh Inh 1 PUFF INH DAILY Folic Acid (Folvite) 1 Mg Tab 1 MG PO DAILY Home O2 Therapy (Oxygen) Gas 4 LITERS NA UD Lactobacillus Acidophilus (Floranex) 1 Tab Tab 1 TAB PO TIDM, #30 TAB Pantoprazole (Pantoprazole Sodium) 40 Mg Tab 40 MG PO DAILY Tiotropium [place] (Spiriva Handihaler) 30 Puff/540 Mcg Aerp 1 CAP INH DAILY for 30 Days, #30 CAP 3 Refills Trazodone HCl (Trazodone HCl) 100 Mg Tab 100 MG PO HS Venlafaxine Hcl (Effexor Extended Rel) 150 Mg Capcr 150 MG PO DAILY TAKE WITH 75MG = 225 MG TOTAL Venlafaxine Hcl (Effexor Extended Rel) 75 Mg Capcr 75 MG PO DAILY TAKE WITH 150 MG = 225MG TOTAL Discontinued Medications: Rivaroxaban (Xarelto) 20 Mg Tab 20 MG PO DAILY, TAB Discharge Exam Patient feels well. Although she still has some cold symptoms, she feels like her breathing and energy are improved. She is ambulating without exertional symptoms. Supplemental oxygen is back at baseline level. No further GI bleeding noted. Her restless leg symptoms are well controlled with medication. She is sleeping well, and tolerating diet without nausea or vomiting. She is keen for home. ROS was grossly unremarkable. Physical Exam: General Appearance: WD/WN, no apparent distress, + pertinent finding (NC in situ) Eyes: normal inspection ENT: hearing grossly normal, pharynx normal Neck: supple, no adenopathy, thyroid normal, no JVD Respiratory/Chest: lungs clear, normal breath sounds, no respiratory distress, no accessory muscle use Cardiovascular: regular rate, rhythm, no edema, normal peripheral pulses Abdomen / GI: normal bowel sounds, non tender, soft, no organomegaly Extremities: no calf tenderness, normal capillary refill, no pedal edema, + pertinent finding (Improving athlete's foot bilaterally) Neurologic/Psychiatric: alert, normal mood/affect, oriented x 3 Skin: normal color, warm/dry, no rash (Alka. Aviles MD) Hospital Course 76 y/o female with a history of a.fib, COPD, HTN, HLD, anxiety and depression, GERD, and insomnia who presented to the ED on 10/18 with severe anemia and melena. Acute on chronic anemia with melena, presumed GI bleed - Referred by PCP with Hb 5.7 (Baseline hemoglobin 9-10 within the last year.) - Received pRBC x 5 units. - GI consulted. EGD negative for acute source of bleeding. - Celiac panel negative. - On discharge, Hgb stable at ~10.8. Aspirin resumed, Xarelto held. Advised continuing ferrous sulfate 325 mg PO BID (ideally on empty stomach and with orange juice with Miralax and/or milk of magnesia if feeling constipated) and pantoprazole 40 mg BID - Advised discussion with Ray Pereira re: risks/benefits of restarting Xarelto at appointment on October 26 at 11:00am - Appointment with GI (Josseline York) on October 28 at 2:40pm to discuss any further testing, if warranted. Restless legs - likely due to severe iron deficiency - Started pramipexole 0.25mg qHS - Ferritin to be checked in ~2months, medication can be discontinued once ferritin >50 COPD--stable. Wears 4L NC continuous at home. - CXR 10/21/16 grossly unremarkable - On discharge, continue supplemental oxygen, inhalers: Breo, Spiriva and BIPAP at nighttime, and flonase nasal spray + saline nasal spray + Mucinex for upper respiratory symptoms Atrial fibrillation--stable. Currently in sinus rhythm - Continue amiodarone 100 mg PO qd and diltiazem 180 mg PO qd - Restarted aspirin and holding Xarelto - discussed with patient and daughter, who are agreeable Athlete's Foot - Continue applying the Lamisil cream to your feet. If improving but not resolved, more cream can be purchased over the counter. Hypernatremia - Longstanding high normal range from 145-150, likely secondary to increased caffeine intake and poor water intake - Encourage increase PO water intake Hypokalemia - resolved - 4.3 on discharge HTN--stable range - Continue diltiazem 180mg qAM HLD -Continue atorvastatin 80 mg PO qd Anxiety and depression -Continue venlafaxine 225 mg PO qd and buspirone 15 mg PO TID Insomnia -Continue trazodone 100 mg PO qhs DVT prophylaxis -Hold chemical prophylaxis due to bleed -ASHLEE leo and SCDs Dispo - PT/OT ordered - cleared for discharge to home FULL RESUSCITATION STATUS Total Time Spent: Less than 30 minutes This includes examination of the patient, discharge planning, medication reconciliation, and communication with other providers. (Alka. Aviles MD) Attending Discharge Note & Attestation: Pt seen/examined, chart reviewed, care plan d/w PGY1 Dr. Anila Aviles on day of discharge. I agree w/ the goyal components of her discharge summary. 76yo female with chronic hypoxic resp failure 2nd to oxygen-dependent COPD and prior h/o heme+ stool and iron deficiency anemia - negative work-up (EGD, colonoscopy, etc) in 2016 - presenting with extreme fatigue and dizziness along with hemoglobin of 5.7. She was transfused 4 units of PRBCs during her stay without incident and discharge hemoglobin was 10.8. She had no evidence of GI bleeding during her stay. Xarelto and aspirin were held. Vitals remained stable despite the low hemoglobin. EGD by Dr. Juan Roy was normal. Colonoscopy was deferred. Celiac panel was sent and was negative. At discharge we recommended cautious resumption of her aspirin but to hold her xarelto until seen in the outpatient clinic by her PCP and GI. Other issues addressed included - restless legs (due to low iron), tinea pedis, hypernatremia, and URI. Chest x-ray failed to show any pneumonia. PT, OT both cleared the patient for home. With respect to the hypernatremia her specific gravity on u/a and her urine output volumes were not suggestive of diabetes insipidus. We believe her high sodium was due to very poor water intake on a chronic basis (review of the EMR shows she is always high-normal for her Na levels). Discharge exam: gen - nad nose - congested mouth - MMM neck - no JVD heart - RRR, s1, s2 lungs - decreased BS throughout but no adventitious sounds abd - soft, NT, ND, BS+ ext - no edema time spent on the discharge process - 45 minutes Hunter Trimble MD Total Time Spent: Greater than 30 minutes (Hunter rTimble MD) Discharge Instructions Please refer to the electronic Patient Visit Report (Discharge Instructions) for additional information. (Alka. Aviles MD) Additional Copies To Ray Pereira III, CRNP; Josseline York,[email or web address].
[2016-12-19] MEDS ORDERED: IPRA1AER2 INH (09:52)
[2016-12-19] MEDS ORDERED: BUDE0.5S INH (09:52)
[2016-12-19] MEDS ORDERED: PRED10TA PO (09:52)
[2016-12-19] MEDS ORDERED: LVQ750 PO (09:52)
[2016-12-19] MEDS ORDERED: UMEC1INH INH (09:52)
== END 2016-10-23 14:47 | disposition home or self-care (01) | DRG 813 ==
LOC: C.EDB 16:29 → C.MSICU 17:58 → ENRESERV 19:21 → C.MSICU 10-20 09:49 → CANRESERV 10-20 11:57 → ENRESERV 10-20 11:57 → EDBEDREQTM 10-20 12:37 → EDBEDREQSVC 10-20 12:37 → ENRESERV 10-20 12:50 → C.MS4W 10-20 14:25
PROVIDERS: ADMIT Hospitalist; ATTEND Internal Medicine
PROC: 0DJ08ZZ Inspection of Upper Intestinal Tract, Via Natural or Artificial Opening Endoscopic (ICD-10-PCS; principal; 2016-10-19 11:30)
DX: D68.32 Hemorrhagic disorder due to extrinsic circulating anticoagulants (principal); K92.1 Melena; D62 Acute posthemorrhagic anemia; E87.0 Hyperosmolality and hypernatremia; J96.11 Chronic respiratory failure with hypoxia; D50.9 Iron deficiency anemia, unspecified; E87.6 Hypokalemia; J06.9 Acute upper respiratory infection, unspecified; E11.9 Type 2 diabetes mellitus without complications; E78.5 Hyperlipidemia, unspecified; I10 Essential (primary) hypertension; I48.0 Paroxysmal atrial fibrillation; J44.9 Chronic obstructive pulmonary disease, unspecified; F41.9 Anxiety disorder, unspecified; F32.9 Major depressive disorder, single episode, unspecified; K21.9 Gastro-esophageal reflux disease without esophagitis; G47.00 Insomnia, unspecified; G25.81 Restless legs syndrome; B35.3 Tinea pedis; T45.515A Adverse effect of anticoagulants, initial encounter; T45.8X5A Adverse effect of other primarily systemic and hematological agents, initial encounter; Z79.01 Long term (current) use of anticoagulants; Z79.02 Long term (current) use of antithrombotics/antiplatelets; Z79.82 Long term (current) use of aspirin; Z79.899 Other long term (current) drug therapy; Z87.891 Personal history of nicotine dependence; Z99.81 Dependence on supplemental oxygen; E88.81 Metabolic syndrome and other insulin resistance

== ENCOUNTER → 2016-10-18 | Outpatient (CLI) | payer OTHER, MEDICARE ==
[2016-10-18 15:57] LABS: HEMATOCRIT 20.7 % (37-47); MEAN CELL VOLUME 89.6 fL (80-100); MEAN CORPUSCULAR HEMOGLOBIN 24.7 pg (25-34); MEAN CORPUSCULAR HGB CONC 27.5 g/dl (32-36); MEAN PLATELET VOLUME 10.1 fL (7.4-10.4); PLATELET COUNT 395 K/uL (130-400); RED BLOOD COUNT 2.31 M/uL (4.2-5.4); WHITE BLOOD COUNT 7.19 K/uL (4.8-10.8)
[2016-10-18 16:05] LABS: BASO % 0.6 %; BASO ABS # 0.04 K/uL (0-0.2); COMPLETE YES; EOS % 0.6 %; HYPOCHROMIA PRESENT; IG% 0.3 %; LYMPH % 18.6 %; LYMPH ABS # 1.34 K/uL (1.2-3.4); MICROCYTOSIS PRESENT; NEUT % 73.9 %; POLYCHROMASIA 1+
[2016-10-18 16:12] LABS: BLOOD UREA NITROGEN 12 mg/dl (7-18); CALCIUM 8.1 mg/dl (8.5-10.1); CARBON DIOXIDE 37 mmol/L (21-32); CHLORIDE 106 mmol/L (98-107); CREATININE 0.65 mg/dl (0.60-1.20); GLUCOSE 106 mg/dl (70-99); MAGNESIUM 2.4 mg/dl (1.8-2.4); POTASSIUM 3.3 mmol/L (3.5-5.1); SODIUM 147 mmol/L (136-145)
[2016-10-18 16:21] LABS: ALB/GLOB RATIO 0.8 (0.9-2); ALKALINE PHOSPHATASE 86 U/L (45-117); ALT/SGPT 12 U/L (12-78); AST/SGOT 11 U/L (15-37); CHOLESTEROL 142 mg/dl (0-200); CHOLESTEROL/HDL RATIO 2.2; FERRITIN 8.4 ng/ml (8.0-388.0); HDL CHOLESTEROL 65 mg/dl; LDL CHOLESTEROL CALCULATED 59 mg/dl; TRIGLYCERIDES 92 mg/dl (0-150); VERY LOW DENSITY LIPOPROT CALC 18 mg/dl
[2016-10-19 06:56] LABS: ESTIMATED AVERAGE GLUCOSE 120 mg/dl; HA1C FLAG Normal (Normal)
== END | disposition home or self-care (01) ==
LOC: C.LAB 14:39
PROVIDERS: ATTEND Nurse Practitioner Family
DX: E78.5 Hyperlipidemia, unspecified (principal); E88.81 Metabolic syndrome and other insulin resistance; I10 Essential (primary) hypertension; J44.9 Chronic obstructive pulmonary disease, unspecified; D64.9 Anemia, unspecified

== ENCOUNTER → 2016-11-24 | Outpatient (CLI) | payer OTHER, MEDICARE ==
[~2016-11-24] MED LIST changes: +ASPI81TA28 PO; +FLNIN; +FLUT1INH INH; -IPRA1AER2 INH; +MOMLX PO; +MRLP17X PO; +MRP25 PO; -PANT40TA2 PO; -PRD20 PO; +PRT/40 PO; -RIVA1TAB4 PO; +SALI0.6510; -SPRIN INH; +SPRIN/30 INH; -SYMIN INH; -XNX25 PO
[2016-11-24 17:21] LABS: BASO % 0.6 %; BASO ABS # 0.04 K/uL (0-0.2); COMPLETE YES; EOS % 3.1 %; HEMATOCRIT 38.8 % (37-47); IG% 0.3 %; LYMPH % 22.2 %; LYMPH ABS # 1.49 K/uL (1.2-3.4); MEAN CELL VOLUME 93.5 fL (80-100); MEAN CORPUSCULAR HEMOGLOBIN 28.4 pg (25-34); MEAN CORPUSCULAR HGB CONC 30.4 g/dl (32-36); MEAN PLATELET VOLUME 11.3 fL (7.4-10.4); MONO % 5.8 %; PLATELET COUNT 165 K/uL (130-400); RED BLOOD COUNT 4.15 M/uL (4.2-5.4); WHITE BLOOD COUNT 6.71 K/uL (4.8-10.8)
[2016-11-24 17:36] LABS: ALT/SGPT 46 U/L (12-78); AST/SGOT 41 U/L (15-37); BLOOD UREA NITROGEN 16 mg/dl (7-18); BUN/CREATININE RATIO 20.8 (10-20); CALCIUM 9.1 mg/dl (8.5-10.1); CARBON DIOXIDE 34 mmol/L (21-32); CHLORIDE 105 mmol/L (98-107); CREATININE 0.78 mg/dl (0.60-1.20); GLUCOSE 119 mg/dl (70-99); POTASSIUM 4.2 mmol/L (3.5-5.1); SODIUM 145 mmol/L (136-145)
[2016-11-24 17:41] LABS: ALB/GLOB RATIO 0.9 (0.9-2); ALKALINE PHOSPHATASE 161 U/L (45-117); FERRITIN 17.2 ng/ml (8.0-388.0)
== END | disposition home or self-care (01) ==
LOC: C.LABBFT 09:58
PROVIDERS: ATTEND Nurse Practitioner Family
DX: D64.9 Anemia, unspecified (principal); I48.91 Unspecified atrial fibrillation; K92.2 Gastrointestinal hemorrhage, unspecified

== ENCOUNTER 2016-12-17 19:55 | Inpatient (IN) | payer OTHER, MEDICARE ==
[~2016-12-17] VITALS: Ht 160 cm; Wt 100.2 kg
--- NOTE | 2016-12-17 20:33 | EMERGENCY ROOM VISIT NOTE ---
History Report prepared by Seth: Fady Ram Under the Supervision of: Dr. Jon Hilliard M.D. First contact with patient: 20:22 Chief Complaint: RESPIRATORY DISTRESS Stated Complaint: BREATHING DIFFICULTY History of Present Illness The patient is a 76 year old female who presents to the Emergency Room with complaints of worsening difficulty breathing that began today, a few hours prior to arrival. The patient states that she was havening increased difficulty breathing today and was also experiencing diffuse pain in her ribs. She received a breathing treatment prior to arrival via EMS which improved her dyspnea. She has a history of COPD. The patient also notes having a headache, and she was febrile on arrival to the department. Per the patient's daughter the patient was doing well yesterday, and all of her symptoms onset over the night last night. She notes that her ankles are more swollen than usual today. Source of History: patient Onset: a few hours prior to arrival Position: other (Respiratory) Quality: other (Dyspnea) Timing: worsening Associated Symptoms: + fevers, + headache Review of Systems All systems have been listed, reviewed, and are negative other than those previously mentioned. Please see Additional Medical History Sheet. Past Medical & Surgical Medical Problems: (1) Acute on chronic respiratory failure (2) Diab Zoey Wo Compl, Type Ii Or Unspec Type, Not Uncntrld (3) Diverticulosis Colon (W/O Ment Of Hemorrhage) (4) Hyperlipidemia Nec/Nos (5) Hypertension Nos (6) Left lower lobe pneumonia (7) Obstr Chronic Bronchitis, W (Acute) Exacerbation (8) Paroxysmal a-fib (9) Pneumonia, Organism Nos (10) Pure Hypercholesterolem (11) Symptomatic anemia (12) Tubal Ligation Status Family History Diabetes mellitus FH: cancer (lymphoma, breast cancer) Hypertension Social History Smoking Status: Former Smoker Alcohol Use: none Drug Use: none Marital Status: Housing Status: lives with family Occupation Status: retired Current/Historical Medications Scheduled Amiodarone Hcl (Amiodarone Hcl), 100 MG PO DAILY Aspirin (Aspirin Ec), 81 MG PO DAILY Atorvastatin (Lipitor), 80 MG PO DAILY Buspirone HCl (Buspirone HCl), 15 MG PO TID Cholecalciferol (Vitamin D), 2,000 INTER.UNIT PO DAILY Diltiazem Hcl Ext Rel (Tiazac), 180 MG PO QAM Ferrous Sulfate (Kp Ferrous Sulfate), 1 TAB PO BID Fluticasone Furoate-Vilanterol (Breo Ellipta), 1 PUFF INH DAILY Fluticasone Propionate (Nasal) (Flonase Allergy Relief), 2 SPRAYS BUTCH DAILY Folic Acid (Folvite), 1 MG PO DAILY Home O2 Therapy (Oxygen), 4 LITERS NA CONTINOUS Lactobacillus (Floranex), 1 TAB PO TIDM Pantoprazole (Pantoprazole Sodium), 40 MG PO DAILY Pramipexole Dihydrochloride (Pramipexole Dihydrochlori), 0.25 MG PO HS Saline ([place] Nasal [place]), 2 SPRAYS BUTCH Q6HWA Tiotropium [place] (Spiriva Handihaler), 1 CAP INH DAILY Trazodone HCl (Trazodone HCl), 100 MG PO HS Venlafaxine Hcl (Effexor Extended Rel), 150 MG PO DAILY Venlafaxine Hcl (Effexor Extended Rel), 75 MG PO DAILY Scheduled PRN Eucerin (Eucerin), 1 APPLN TOP BID PRN for DRYNESS Guaifenesin Ext Rel (Mucinex Ext Rel), 1,200 MG PO Q12 PRN for CONGESTION Magnesium Hydroxide (Milk Of Magnesia), 30 ML PO Q12 PRN for Constipation Polyethylene Glycol 3350 (Miralax), 17 GM PO DAILY PRN for Constipation Allergies Coded Allergies: Mushroom (Verified Allergy, Unknown, 12/17/16) Theophyllines (Verified Allergy, Unknown, Unknown, 12/17/16) Reported by daughter and listed in [facility]. Codeine (Verified Adverse Reaction, Severe, HYPERVENTILATES, 12/17/16) Morphine (Verified Adverse Reaction, Severe, Causes Afib, 12/17/16) Physical Exam Vital Signs Date Time Temp Pulse Resp B/P (MAP) Pulse Ox O2 Delivery O2 Flow Rate FiO2 12/17/16 22:41 80 20 138/53 94 Room Air 12/17/16 22:00 80 20 152/63 96 Nasal Cannula 4.0 12/17/16 21:04 76 22 137/58 96 Nasal Cannula 4.0 12/17/16 20:11 84 12/17/16 20:06 95 Nasal Cannula 4.0 12/17/16 20:06 37.9 88 26 152/53 95 Nasal Cannula 4.0 12/17/16 20:06 95 Nasal Cannula 4.0 12/17/16 20:06 Nasal Cannula 4.0 Physical Exam GENERAL: Patient awake, alert, oriented x 3. Patient follows commands. Patient appears to be in minimal distress. She is not tachypneic on exam. SKIN: No erythema, pallor, cyanosis or rash HEENT: Normal head, pupils equal, reactive to light and accommodation. Ears normal. Oral cavity and posterior pharynx appear normal. Neck: Without adenopathy, no neck vein distention. LUNGS: There are shallow breath sounds bilaterally. No wheezes, no rales, no rhonchi. HEART: No murmurs. No gallops. No rubs ABDOMEN: Obese. No masses, no rebound, no hepatomegaly or splenomegaly. EXTREMITIES: No signs of trauma. 2+ pedal edema on the left, 1+ on the right. No calf or thigh tenderness. NEUROLOGIC: Cranial nerves II-XII within normal limits. No gross motor sensory function deficits. Medical Decision & Procedures ER Provider Diagnostic Interpretation: Radiology results as stated below per my review and radiologist interpretation: CHEST ONE VIEW PORTABLE CLINICAL HISTORY: Dyspnea, shortness of breath. COMPARISON STUDY: 10/21/2016 FINDINGS: The heart is normal in size. There is stable prominence of the left main pulmonary artery. There are nonspecific left basal airspace opacities, atelectatic versus inflammatory. There are no significant pleural effusions. There is no failure.[ IMPRESSION: Left basal airspace opacities, atelectatic versus infectious/inflammatory. Electronically signed by: Jaime Voss M.D. 12/17/2016 9:23 PM Dictated Date/Time: 12/17/2016 9:22 PM Laboratory Results 12/17/16 20:55 Red Blood Count 4.13, Mean Corpuscular Volume 94.4, Mean Corpuscular Hemoglobin 29.5, Mean Corpuscular Hemoglobin Concent 31.3, Mean Platelet Volume 11.0, Neutrophils (%) (Auto) 89.1, Lymphocytes (%) (Auto) 5.7, Monocytes (%) (Auto) 4.6, Eosinophils (%) (Auto) 0.0, Basophils (%) (Auto) 0.1, Neutrophils # (Auto) 17.52, Lymphocytes # (Auto) 1.11, Monocytes # (Auto) 0.90, Eosinophils # (Auto) 0.00, Basophils # (Auto) 0.02 12/17/16 20:55 Test 12/17/16 20:55 12/17/16 21:15 White Blood Count 19.64 K/uL (4.8-10.8) Red Blood Count 4.13 M/uL (4.2-5.4) Hemoglobin 12.2 g/dL (12.0-16.0) Hematocrit 39.0 % (37-47) Mean Corpuscular Volume 94.4 fL (80-100) Mean Corpuscular Hemoglobin 29.5 pg (25-34) Mean Corpuscular Hemoglobin Concent 31.3 g/dl (32-36) Platelet Count 159 K/uL (130-400) Mean Platelet Volume 11.0 fL (7.4-10.4) Neutrophils (%) (Auto) 89.1 % Lymphocytes (%) (Auto) 5.7 % Monocytes (%) (Auto) 4.6 % Eosinophils (%) (Auto) 0.0 % Basophils (%) (Auto) 0.1 % Neutrophils # (Auto) 17.52 K/uL (1.4-6.5) Lymphocytes # (Auto) 1.11 K/uL (1.2-3.4) Monocytes # (Auto) 0.90 K/uL (0.11-0.59) Eosinophils # (Auto) 0.00 K/uL (0-0.5) Basophils # (Auto) 0.02 K/uL (0-0.2) RDW Standard Deviation 57.0 fL (36.4-46.3) RDW Coefficient of Variation 16.5 % (11.5-14.5) Immature Granulocyte % (Auto) 0.5 % Immature Granulocyte # (Auto) 0.09 K/uL (0.00-0.02) Anion Gap 6.0 mmol/L (3-11) Est Creatinine Clear Calc Drug Dose 55.7 ml/min Estimated GFR () 64.3 Estimated GFR (Non- 55.5 BUN/Creatinine Ratio 17.1 (10-20) Lactic Acid Level 2.8 mmol/L (0.4-2.0) Calcium Level 8.7 mg/dl (8.5-10.1) Total Bilirubin 1.0 mg/dl (0.2-1) Aspartate Amino Transf (AST/SGOT) 59 U/L (15-37) Alanine Aminotransferase (ALT/SGPT) 36 U/L (12-78) Alkaline Phosphatase 106 U/L (45-117) Total Protein 6.9 gm/dl (6.4-8.2) Albumin 3.0 gm/dl (3.4-5.0) Globulin 3.9 gm/dl (2.5-4.0) Albumin/Globulin Ratio 0.8 (0.9-2) Procalcitonin 1.65 ng/ml (0-0.5) Urine Color YELLOW Urine Appearance CLEAR (CLEAR) Urine pH 7.0 (4.5-7.5) Urine Specific [place] 1.007 (1.000-1.030) Urine Protein NEG (NEG) Urine Glucose (UA) NEG (NEG) Urine Ketones NEG (NEG) Urine Occult Blood NEG (NEG) Urine Nitrite NEG (NEG) Urine Bilirubin NEG (NEG) Urine Urobilinogen NEG (NEG) Urine Leukocyte Esterase NEG (NEG) Laboratory results as stated above per my review. Medications Administered Medications (Trade) Dose Ordered Sig/Buddy Route Start Time Stop Time Status Last Admin Dose Admin Sodium Chloride 2,000 ml @ 1,000 mls/hr Q2H ONCE IV 12/17/16 22:00 12/17/16 23:59 DC 12/17/16 22:41 1,000 MLS/HR Piperacillin Sod/ Tazobactam Sod (Zosyn Iv) 3.375 gm NOW STAT IV 12/17/16 21:53 12/17/16 22:04 DC 12/17/16 22:40 3.375 GM Levofloxacin (Levaquin / D5W) 750 mg NOW ONCE IV 12/17/16 22:00 12/17/16 22:04 DC 12/17/16 23:18 750 MG ECG Indication: SOB/dyspnea Rate (beats per minute): 80 Rhythm: normal sinus Findings: no acute ischemic change, no ectopy ED Course 2021: Past medical records reviewed. The patient was evaluated in room B2. A complete history and physical examination was performed. 2152: Ordered Zosyn 3.375 gm IV. 2199: Ordered Levofloxacin 750 mg IV, Sodium Chloride 2000 mL @ 1000 mL/hr IV. 2205: I discussed the case with Dr. Fernandez Lupe SPANN Hospitalist at this time. He will evaluate the patient for further treatment. Medical Decision Differential Diagnosis includes; COPD acute flair, CHF, pneumonia, bronchitis, anemia. Patient's here with shortness of breath. She has a long history of COPD and is on oxygen at home. Multiple labs, EKG and imaging were obtained. Patient's white count is elevated. Lactic acid was 2.8. Chest x-ray reveals a small infiltrate left base. Blood cultures were obtained prior to administration of antibiotics. I discussed care with the patient and with the hospitalist. Medication Reconcilliation Current Medication List: was personally reviewed by me Blood Pressure Screening Patient's blood pressure: Elevated blood pressure Blood pressure disposition: Referred to PCP Consults Time Called: 2199 Consulting Physician: Dr. Rebecca SPANN Hospitalist Returned Call: 2205 I discussed the case with Dr. Rebecca SPANN Hospitalist at this time. He will evaluate the patient for further treatment. Impression Primary Impression: PNA (pneumonia) Additional Impression: Sepsis Critical Care I have personally spent greater than 35 minutes of critical care time in the direct management of this patient. This includes bedside care, interpretation of diagnostic studies, and testing, discussion with consultants, patient, and family members, and other required patient management activities. This 35 minutes is in excess of all separately billable procedures. Scribe Attestation The scribe's documentation has been prepared under my direction and personally reviewed by me in its entirety. I confirm that the note above accurately reflects all work, treatment, procedures, and medical decision making performed by me. Departure Information Dispostion Being Evaluated By Hospitalist Referrals Ray Pereira III, CRNP (PCP) Patient Instructions Asthma - [facility], COPD - [facility], Croup - [facility], My [facility] Problem Qualifiers
[2016-12-17] MEDS ORDERED: PRAM0.256 PO (20:59)
[2016-12-17] MEDS ORDERED: SKINCRE34 TOP (20:59)
[2016-12-17] MEDS ORDERED: POLY335019 PO (20:59)
[2016-12-17] MEDS ORDERED: SALI0.6510 NAE (20:59)
[2016-12-17] MEDS ORDERED: AMIO0.1T PO (20:59)
[2016-12-17] MEDS ORDERED: LACT1TAB4 PO (20:59)
[2016-12-17] MEDS ORDERED: DILT-113 PO (20:59)
[2016-12-17] MEDS ORDERED: GUAI1TAB55 PO (20:59)
[2016-12-17] MEDS ORDERED: FLUT0.15 NAE (20:59)
[2016-12-17] MEDS ORDERED: MOML PO (20:59)
[2016-12-17 21:14] LABS: BASO % 0.1 %; BASO ABS # 0.02 K/uL (0-0.2); COMPLETE YES; IG% 0.5 %; LYMPH % 5.7 %; LYMPH ABS # 1.11 K/uL (1.2-3.4); MEAN CELL VOLUME 94.4 fL (80-100); MEAN CORPUSCULAR HEMOGLOBIN 29.5 pg (25-34); MEAN CORPUSCULAR HGB CONC 31.3 g/dl (32-36); MONO % 4.6 %; NEUT % 89.1 %; PLATELET COUNT 159 K/uL (130-400); RED BLOOD COUNT 4.13 M/uL (4.2-5.4); WHITE BLOOD COUNT 19.64 K/uL (4.8-10.8)
--- NOTE | 2016-12-17 21:24 | DIAGNOSTIC IMAGING REPORT ---
CHEST ONE VIEW PORTABLE CLINICAL HISTORY: Dyspnea, shortness of breath. COMPARISON STUDY: 10/21/2016 FINDINGS: The heart is normal in size. There is stable prominence of the left main pulmonary artery. There are nonspecific left basal airspace opacities, atelectatic versus inflammatory. There are no significant pleural effusions. There is no failure.[ IMPRESSION: Left basal airspace opacities, atelectatic versus infectious/inflammatory. Electronically signed by: Jaime Voss M.D. 12/17/2016 9:23 PM Dictated Date/Time: 12/17/2016 9:22 PM
[2016-12-17 21:25] LABS: URINE APPEARANCE CLEAR (CLEAR); URINE BILIRUBIN NEG (NEG); URINE COLOR YELLOW; URINE NITRITE NEG (NEG); URINE SPECIFIC GRAVITY 1.007 (1.000-1.030); UROBILINOGEN NEG (NEG); ZZURINE CULT IF INDIC CATH NO
[2016-12-17 21:35] LABS: BUN/CREATININE RATIO 17.1 (10-20); CALCIUM 8.7 mg/dl (8.5-10.1)
[2016-12-17 21:38] LABS: ALB/GLOB RATIO 0.8 (0.9-2)
[2016-12-17] MEDS ORDERED: PIPERACILLIN/TAZOBACTAM 3.375 GM/100ML D5W IV STA (21:53)
[2016-12-17] MEDS ORDERED: SODIUM CHLORIDE 0.9% 1000ML 2,000 ML IV ONE (22:00)
[2016-12-17] MEDS ORDERED: LEVAQUIN 750MG / 150ML D5W IV ONE (22:00)
[2016-12-17 22:05] LABS: MANUAL MICROSCOPIC REQUIRED? NO; REVIEW REQ? NO
[2016-12-17] MEDS ORDERED: GUAIFENESIN 600 MG TABCR PO PRN (23:00)
[2016-12-17] MEDS ORDERED: ACETAMINOPHEN 325 MG TAB PO PRN (23:00)
[2016-12-17] MEDS ORDERED: EUCERIN CR 120 GM JAR EXT PRN (23:00)
[2016-12-17] MEDS ORDERED: MAGNESIUM HYDROXIDE SUSP 30 ML UDC PO PRN ×2 (23:00)
[2016-12-17] MEDS ORDERED: NON-FORMULARY MEDICATION (Polyethylene Glycol 3350 (Miralax) 17 GM) PO PRN (23:00)
[2016-12-17] MEDS ORDERED: ALUMINUM/MAGNESIUM/SIMETH (MAALOX MAX) 30 ML UDC PO PRN (23:00)
[2016-12-17] MEDS ORDERED: ONDANSETRON INJ 2 MG/ML 2 ML VIAL IV PRN (23:00)
[2016-12-17] MEDS ORDERED: METHYLPREDNISOLONE 125 MG VIAL ONE (23:01)
[2016-12-17] MEDS ORDERED: METHYLPREDNISOLONE 125 MG VIAL IV STA (23:22)
--- NOTE | 2016-12-17 23:56 | History and Physical ---
History & Physical Date & Time of Service: Dec 17, 2016 at 23:31 Chief Complaint: Breathing Difficulty Primary Care Physician: Ray Pereira III, CRNP History of Present Illness Source: patient, family (daughters) This is a 76 year old female with a history of COPD with chronic respiratory failure on 4 L oxygen at baseline, TIA, Atrial Fibrillation, HTN, HLD, Depression/Anxiety and Insomnia, who presents to the ED for worsening shortness of breath. The patient states that she was in her usual state of health until last night when she woke up with coughing and chest generalized chest discomfort with cough. The cough was non-productive but she felt like there was phlegm lower down that she could not get out. She also felt wheezy. She took her albuterol nebulizers at home but only got 15 minutes of relief. During the day, she states that she was much weaker. Normally she ambulates independently in the home but her daughter had to help her out of bed with great difficulty. Daughter also notes that her mother seemed more confused and was not recalling certain events from the day prior. She also reports a generalized headache with radiation to the back of the neck. The pain is an ache 5/10, but is resolved now. Patient also reports 2 weeks of gradual left lower extremity swelling. There is minimal tenderness. She denies redness to the area or any chronic wounds/ ulcers. She denies any fevers, chills or sweats. Her appetite has been reduced for the past day. She denies any urinary or gastrointestinal symptoms. Currently, the patient reports slight improvement in her symptoms. Past Medical/Surgical History Medical Problems: COPD Atrial Fibrillation History of TIA (1) Diab Zoey Wo Compl, Type Ii Or Unspec Type, Not Uncntrld Status: Chronic (2) Diverticulosis Colon (W/O Ment Of Hemorrhage) Status: Chronic (3) Hyperlipidemia Nec/Nos Status: Chronic (4) Hypertension Nos Status: Chronic (5) Obstr Chronic Bronchitis, W (Acute) Exacerbation Status: Chronic (6) Pneumonia, Organism Nos Status: Resolved (7) Pure Hypercholesterolem Status: Chronic (8) Tubal Ligation Status Status: Resolved Family History Diabetes mellitus FH: cancer (lymphoma, breast cancer) Hypertension Social History Smoking Status: Former Smoker Smokeless Tobacco Use: No Alcohol Use: none Drug Use: none Marital Status: Housing status: lives with family (daughter lives in home with her) Occupational Status: retired Immunizations History of Influenza Vaccine: Yes Influenza Vaccine Date: Apr 12, 2013 History of Tetanus Vaccine?: Unknown Tetanus Immunization Date: Nov 09, 2007 History of Pneumococcal: Yes Pneumococcal Date: Mar 10, 2011 History of Hepatitis B Vaccine: No Multi-Drug Resistant Organisms History of MDRO: No Allergies Coded Allergies: Mushroom (Verified Allergy, Unknown, 12/17/16) Theophyllines (Verified Allergy, Unknown, Unknown, 12/17/16) Reported by daughter and listed in [facility] record. Codeine (Verified Adverse Reaction, Severe, HYPERVENTILATES, 12/17/16) Morphine (Verified Adverse Reaction, Severe, Causes Afib, 12/17/16) Home Medications Scheduled Amiodarone Hcl (Amiodarone Hcl), 100 MG PO DAILY Aspirin (Aspirin Ec), 81 MG PO DAILY Atorvastatin (Lipitor), 80 MG PO DAILY Buspirone HCl (Buspirone HCl), 15 MG PO TID Cholecalciferol (Vitamin D), 2,000 INTER.UNIT PO DAILY Diltiazem Hcl Ext Rel (Tiazac), 180 MG PO QAM Ferrous Sulfate (Kp Ferrous Sulfate), 1 TAB PO BID Fluticasone Furoate-Vilanterol (Breo Ellipta), 1 PUFF INH DAILY Fluticasone Propionate (Nasal) (Flonase Allergy Relief), 2 SPRAYS BUTCH DAILY Folic Acid (Folvite), 1 MG PO DAILY Home O2 Therapy (Oxygen), 4 LITERS NA CONTINOUS Lactobacillus (Floranex), 1 TAB PO TIDM Pantoprazole (Pantoprazole Sodium), 40 MG PO DAILY Pramipexole Dihydrochloride (Pramipexole Dihydrochlori), 0.25 MG PO HS Saline ([place] Nasal [place]), 2 SPRAYS BUTCH Q6HWA Tiotropium [place] (Spiriva Handihaler), 1 CAP INH DAILY Trazodone HCl (Trazodone HCl), 100 MG PO HS Venlafaxine Hcl (Effexor Extended Rel), 150 MG PO DAILY Venlafaxine Hcl (Effexor Extended Rel), 75 MG PO DAILY Scheduled PRN Eucerin (Eucerin), 1 APPLN TOP BID PRN for DRYNESS Guaifenesin Ext Rel (Mucinex Ext Rel), 1,200 MG PO Q12 PRN for CONGESTION Magnesium Hydroxide (Milk Of Magnesia), 30 ML PO Q12 PRN for Constipation Polyethylene Glycol 3350 (Miralax), 17 GM PO DAILY PRN for Constipation Review of Systems A 10 point review of systems was negative unless stated above. Physical Exam Vital Signs Date Time Temp Pulse Resp B/P (MAP) Pulse Ox O2 Delivery O2 Flow Rate FiO2 12/17/16 22:41 80 20 138/53 94 Room Air 12/17/16 22:00 80 20 152/63 96 Nasal Cannula 4.0 12/17/16 21:04 76 22 137/58 96 Nasal Cannula 4.0 12/17/16 20:11 84 12/17/16 20:06 95 Nasal Cannula 4.0 12/17/16 20:06 37.9 88 26 152/53 95 Nasal Cannula 4.0 12/17/16 20:06 95 Nasal Cannula 4.0 12/17/16 20:06 Nasal Cannula 4.0 General Appearance: WD/WN, no apparent distress, + mild distress Head: normocephalic, atraumatic Eyes: normal inspection, EOMI ENT: hearing grossly normal, pharynx normal Neck: supple, no adenopathy, no JVD Respiratory/Chest: + crackles (left base), + pertinent finding (chest wall tenderness bilaterally, worse in lower ribs) Cardiovascular: regular rate, rhythm, no gallop, no murmur Abdomen/GI: normal bowel sounds, non tender, soft Back: no CVA tenderness, no muscle spasm Extremities/Musculoskelatal: no calf tenderness, + pertinent finding (left calf larger than right calf) Neurologic/Psych: alert, normal mood/affect, oriented x 3 Skin: normal color, warm/dry, no rash Diagnostics Laboratory Results Results Past 24 Hours Test 12/17/16 20:55 12/17/16 21:15 Range/Units White Blood Count 19.64 4.8-10.8 K/uL Red Blood Count 4.13 4.2-5.4 M/uL Hemoglobin 12.2 12.0-16.0 g/dL Hematocrit 39.0 37-47 % Mean Corpuscular Volume 94.4 80-100 fL Mean Corpuscular Hemoglobin 29.5 25-34 pg Mean Corpuscular Hemoglobin Concent 31.3 32-36 g/dl Platelet Count 159 130-400 K/uL Mean Platelet Volume 11.0 7.4-10.4 fL Neutrophils (%) (Auto) 89.1 % Lymphocytes (%) (Auto) 5.7 % Monocytes (%) (Auto) 4.6 % Eosinophils (%) (Auto) 0.0 % Basophils (%) (Auto) 0.1 % Neutrophils # (Auto) 17.52 1.4-6.5 K/uL Lymphocytes # (Auto) 1.11 1.2-3.4 K/uL Monocytes # (Auto) 0.90 0.11-0.59 K/uL Eosinophils # (Auto) 0.00 0-0.5 K/uL Basophils # (Auto) 0.02 0-0.2 K/uL RDW Standard Deviation 57.0 36.4-46.3 fL RDW Coefficient of Variation 16.5 11.5-14.5 % Immature Granulocyte % (Auto) 0.5 % Immature Granulocyte # (Auto) 0.09 0.00-0.02 K/uL Sodium Level 138 136-145 mmol/L Potassium Level 4.0 3.5-5.1 mmol/L Chloride Level 98 98-107 mmol/L Carbon Dioxide Level 34 21-32 mmol/L Anion Gap 6.0 3-11 mmol/L Blood Urea Nitrogen 17 7-18 mg/dl Creatinine 1.00 0.60-1.20 mg/dl Est Creatinine Clear Calc Drug Dose 55.7 ml/min Estimated GFR () 64.3 Estimated GFR (Non- 55.5 BUN/Creatinine Ratio 17.1 10-20 Random Glucose 126 70-99 mg/dl Lactic Acid Level 2.8 0.4-2.0 mmol/L Calcium Level 8.7 8.5-10.1 mg/dl Total Bilirubin 1.0 0.2-1 mg/dl Aspartate Amino Transf (AST/SGOT) 59 15-37 U/L Alanine Aminotransferase (ALT/SGPT) 36 12-78 U/L Alkaline Phosphatase 106 45-117 U/L Total Protein 6.9 6.4-8.2 gm/dl Albumin 3.0 3.4-5.0 gm/dl Globulin 3.9 2.5-4.0 gm/dl Albumin/Globulin Ratio 0.8 0.9-2 Procalcitonin 1.65 0-0.5 ng/ml Urine Color YELLOW Urine Appearance CLEAR CLEAR Urine pH 7.0 4.5-7.5 Urine Specific [place] 1.007 1.000-1.030 Urine Protein NEG NEG Urine Glucose (UA) NEG NEG Urine Ketones NEG NEG Urine Occult Blood NEG NEG Urine Nitrite NEG NEG Urine Bilirubin NEG NEG Urine Urobilinogen NEG NEG Urine Leukocyte Esterase NEG NEG Microbiology Results 12/17/16 Blood Culture, Received Pending 12/17/16 Blood Culture, Received Pending Diagnostic Radiology CHEST ONE VIEW PORTABLE CLINICAL HISTORY: Dyspnea, shortness of breath. COMPARISON STUDY: 10/21/2016 FINDINGS: The heart is normal in size. There is stable prominence of the left main pulmonary artery. There are nonspecific left basal airspace opacities, atelectatic versus inflammatory. There are no significant pleural effusions. There is no failure.[ IMPRESSION: Left basal airspace opacities, atelectatic versus infectious/inflammatory. Electronically signed by: Jaime Voss M.D. 12/17/2016 9:23 PM Dictated Date/Time: 12/17/2016 9:22 PM Impression Assessment and Plan 76 year old female with COPD and chronic respiratory failure, presenting with left lower lobe pneumonia. Our plan for her is as follows: Left Lower Lobe Pneumonia - Patient maintaining saturations on baseline O2 needs - Levaquin 750 mg IV daily - Will order baseline procalcitonin - Solu-medrol 125 mg now; then 40 mg IV TID - Duoneb q4 h PRN for SOB and wheezing - Continue Mucinex - Will order flutter valve to assist with pulmonary toilet COPD - Nebs and steroids as above - Continue Breo and Spiriva - Currently at baseline O2 requirements Left Leg Swelling - US Doppler; rule-out DVT History of Atrial Fibrillation - Continue Diltiazem and Amiodarone - Patient's home regimen does not include anticoagulant - Review of EKG shows NSR, likely maintained by Amiodarone use - EKGs dating back to 2013 show NSR; anticoagulation likely not required due to chronic rhythm control Hyperlipidemia - Continue Atorvastatin Hypertension - No antihypertensives noted on medication list; BP in ED is 150s systolic - Hydralazine 10 mg q 4 h PRN for sBP > 160 or dBP > 110 Depression/Anxiety - Continue Wellbutrin - Continue Venlafaxine Insomnia - Continue Trazodone DVT Prophylaxis - Lovenox 40 mg daily - SCD Code Status - Level I Full Code - Daughter, Madiha Carreon is point of contact Disposition - Med/Surg - OT and PT ordered Resident Physician Supervision Note: Pt seen/examined independently. I discussed the case with the resident and agree with the findings and plan as documented in the note. Any exceptions or clarifications are listed here: 76 y/o F - advanced COPD depnedent on 4L 02 - HTN, PAF - presenting with SOB and cough OE AAO x 3 S1,2 R Reduced air entry Crackles at bases NT, ND, BS+ No CCE P: Treat for PNM and COPD exacerbation - started on Levaquin Admitted to med - NSR on EKG on admission Above discussed with pt and resident Documented By: Marlon Fernandez Level of Care Med/Surg Resuscitation Status FULL RESUSCITATION VTE Prophylaxis VTE Risk Assessment Done? Y/N: Yes Risk Level: Moderate Given or contraindicated: Enoxaparin (Lovenox)SQ
[2016-12-18] VITALS (11 sets, daily range): BP systolic 122–157; BP diastolic 63–80; PULSE 78–87; TEMP 36.8–37.1; O2SAT 93–98; Ht 160 cm; Wt 100.2 kg
[2016-12-18] MEDS ORDERED: HydrALAZINE HCL 20 MG/ML VIAL IV. PRN
[2016-12-18] MEDS: SODIUM CHLORIDE 0.65% NA SOLN 45 ML (OCEAN) NAE SCH ×4 (00:27→17:17)
[2016-12-18] MEDS ORDERED: POLYETHYLENE (MIRALAX) 17 GM PACK PO PRN (00:45)
[2016-12-18] MEDS: ENOXAPARIN 40 MG/0.4 ML SYR SQ SCH ×2 (01:27→23:08)
[2016-12-18 05:22] LABS: HEMATOCRIT 37.3 % (37-47); MEAN CORPUSCULAR HEMOGLOBIN 28.5 pg (25-34); MEAN CORPUSCULAR HGB CONC 30.3 g/dl (32-36); MEAN PLATELET VOLUME 10.3 fL (7.4-10.4); PLATELET COUNT 142 K/uL (130-400); RED BLOOD COUNT 3.97 M/uL (4.2-5.4); WHITE BLOOD COUNT 16.02 K/uL (4.8-10.8)
[2016-12-18 05:47] LABS: BUN/CREATININE RATIO 19.3 (10-20); CALCIUM 8.7 mg/dl (8.5-10.1); CREATININE 1.1 mg/dl (0.60-1.20); POTASSIUM 4.1 mmol/L (3.5-5.1)
--- NOTE | 2016-12-18 06:52 | DIAGNOSTIC IMAGING REPORT ---
LEFT LOWER EXTREMITY VENOUS DOPPLER HISTORY: Leg swelling. r/o DVT COMPARISON STUDY: Venous Doppler 09/12/2016. FINDINGS: There is normal compressibility, flow, and augmentation within the left lower extremity deep venous system. IMPRESSION: No DVT within the left lower extremity. Electronically signed by: Jason Bosch M.D. 12/18/2016 6:51 AM Dictated Date/Time: 12/18/2016 6:50 AM
[2016-12-18] MEDS: ALBUT/IPRATROP 3MG/0.5MG NEB 3 ML VIAL INH SCH ×4 (07:03→19:06)
[2016-12-18] MEDS: METHYLPREDNISOLONE IV 40 MG in SYRINGE 0 ML IV SCH ×3 (08:04→23:08)
[2016-12-18] MEDS: LACTOBACILLUS ACIDOPHILUS (FLORANEX) TAB PO SCH ×3 (08:05→16:23)
[2016-12-18] MEDS: TIOTROPIUM BROMIDE 5 PUFF/90 MCG INH INH SCH (08:06)
[2016-12-18] MEDS: FLUTICASONE PROPIONATE NA SPR 16 GM BTL NAE SCH (08:07)
[2016-12-18] MEDS: BusPIRone 15 MG TAB PO SCH ×3 (08:08→20:30)
[2016-12-18] MEDS: VENLAFAXINE HCL XR 75 MG CAPXR PO SCH (08:09)
[2016-12-18] MEDS: ASPIRIN 81 MG ECTAB PO SCH (08:09)
[2016-12-18] MEDS: AMIODARONE 200 MG TAB PO SCH (08:09)
[2016-12-18] MEDS: VENLAFAXINE HCL XR 150 MG CAPXR PO SCH (08:10)
[2016-12-18] MEDS: ATORVASTATIN 40 MG TAB PO SCH (08:10)
[2016-12-18] MEDS: PANTOprazole SOD 40 MG TAB PO SCH (08:11)
[2016-12-18] MEDS: DILTIAZEM HCL (TIAzac) 180 MG CAPCR PO SCH (08:11)
[2016-12-18] MEDS ORDERED: ATORVASTATIN 20 MG TAB PO SCH (09:00)
--- NOTE | 2016-12-18 09:05 | Family Medicine Progress Note ---
Progress Note Date of Service Dec 18, 2016. Subjective Pt evaluation today including: conversation w/ patient, physical exam, chart review, lab review, review of studies, review of inpatient medication list Voiding: no voiding problems 76 yo female PMHx sig for COPD, chronic respiratory failure on 4 L -Today pt states feeling significantly better than yesterday -Pt says that the pain is less intense than yesterday, but still c/o a constant sore, dull ache of bilateral chest wall, but most prominently on the left side. -Pain is not made worse with inspiration. -She says she has been less SOB and denies cough this AM. -Pt says she slept well las night, but c/o waking up in sweats this AM. Pt had a low grade fever on admission. -Pt denies N/V/D or dysuria -Pt reports compliance with home medications. Only takes Breo at home. Denies taking Spiriva at home. Constitutional: + sweats, No fever, No chills Respiratory: + shortness of breath, No cough, No sputum, No wheezing Abdomen: No nausea, No vomiting, No diarrhea, No constipation Female : No dysuria, No urinary frequency, No hematuria, No incontinence Objective Physical Exam General Appearance: WD/WN, no apparent distress Eyes: normal inspection Neck: supple, no adenopathy Respiratory/Chest: lungs clear, normal breath sounds, no respiratory distress, no accessory muscle use, + pertinent finding (Chest wall tender to palpation bilaterally, more prominent tenderness on inferior left wall) Cardiovascular: regular rate, rhythm, + normal peripheral pulses Extremities: + swelling (Left leg swelling. Pitting observed. No pain, no ulcers, no erythema. ) Skin: normal color, warm/dry, no rash Assessment and Plan 76 year old female with COPD and chronic respiratory failure, presenting with left lower lobe pneumonia. Our plan for her is as follows: Left Lower Lobe Pneumonia - Patient maintaining saturations on baseline O2 needs - Levaquin switched from IV to PO 750 mg once daily - Switching IV solu-medrol to Po prednisone 50mg once daily - Duoneb q4 h PRN for SOB and wheezing - Continue Mucinex COPD - Nebs and steroids as above - Continue Breo and Spiriva -Pt is unsure about her home inhalers for COPD. -Pt will have family bring in inhalers and needs education - Currently at baseline O2 requirements Left Leg Swelling - US Doppler ruled out DVT -Pt's swelling likely due to combination of venous insufficiency and OA of left knee History of Atrial Fibrillation - Continue Diltiazem and Amiodarone - Patient's home regimen does not include anticoagulant - Review of EKG shows NSR, likely maintained by Amiodarone use - EKGs dating back to 2013 show NSR; anticoagulation likely not required due to chronic rhythm control Hyperlipidemia - Continue Atorvastatin Hypertension - No antihypertensives noted on medication list; BP in ED is 150s systolic - Hydralazine 10 mg q 4 h PRN for sBP > 160 or dBP > 110 Depression/Anxiety - Continue Wellbutrin - Continue Venlafaxine Insomnia - Continue Trazodone DVT Prophylaxis - Lovenox 40 mg daily - SCD Code Status - Level I Full Code - Daughter, Madiha Carreon is point of contact Disposition - Med/Surg - OT and PT ordered Resident Physician Supervision Note: I interviewed and examined the patient. Discussed with Dr. Raygoza and agree with findings and plan as documented in the note. Any exceptions or clarifications are listed here: None Documented By: Tariq Saeed feeling better breathing easier. vitals noted nad breathing unlabored, faint base rales L ost/msk - R>L Tspine paraspinals and intercostals high tone/tender/decreased ROM - inhibitory pressure and balanced ligamentous tension - improved. pt tolerated well CXR reviewed acute on chronic respiratory failure w sepsis due to CAP -improving -wean steroids -PO levaquin -hopefully home 8/7 w ongoing imrpovement rib / thoracic somatic dysfunction -OMT as above; research indicates such treatment will shorten hospitalization/ hasten recovery
[2016-12-18] MEDS ORDERED: LEVOFLOXACIN 750 MG TAB PO SCH (19:00)
[2016-12-18] MEDS ORDERED: TRAZODONE HCL 100 MG TAB PO SCH (21:00)
[2016-12-18] MEDS ORDERED: PRAMIPEXOLE DIHYDROCHLORIDE 0.25MG TAB PO SCH (21:00)
[2016-12-18] MEDS ORDERED: LEVOFLOXACIN / D5W 750 MG in PREMIXED IN D5W 150 ML IV SCH (23:00)
[2016-12-19] MEDS: SODIUM CHLORIDE 0.65% NA SOLN 45 ML (OCEAN) NAE SCH ×3 (06:00→12:14)
[2016-12-19 06:31] LABS: HEMATOCRIT 34.6 % (37-47); MEAN CELL VOLUME 93.5 fL (80-100); MEAN CORPUSCULAR HEMOGLOBIN 29.7 pg (25-34); MEAN CORPUSCULAR HGB CONC 31.8 g/dl (32-36); MEAN PLATELET VOLUME 11.2 fL (7.4-10.4); PLATELET COUNT 143 K/uL (130-400); WHITE BLOOD COUNT 11.78 K/uL (4.8-10.8)
[2016-12-19 07:07] LABS: BUN/CREATININE RATIO 27.5 (10-20); CALCIUM 9.2 mg/dl (8.5-10.1); CREATININE 0.91 mg/dl (0.60-1.20); POTASSIUM 4.3 mmol/L (3.5-5.1)
[2016-12-19] MEDS: ALBUT/IPRATROP 3MG/0.5MG NEB 3 ML VIAL INH SCH ×2 (07:08→11:15)
--- NOTE | 2016-12-19 07:08 | Family Medicine Progress Note ---
Progress Note Date of Service Dec 19, 2016. Subjective Pt evaluation today including: conversation w/ patient, physical exam, chart review, lab review, review of studies Assessment and Plan 76 year old female with COPD and chronic respiratory failure, presenting with left lower lobe pneumonia. CAP, LLL - Patient maintaining saturations on baseline O2 needs - Levaquin switched from IV to PO 750 mg once daily - Switching IV solu-medrol to Po prednisone 50mg once daily - Duoneb q4 h PRN for SOB and wheezing - Continue Mucinex COPD - Nebs and steroids as above - Continue Breo and Spiriva - Pt is unsure about her home inhalers for COPD. Pt's family to bring in inhalers. Will educate - Currently at baseline O2 requirements Left Leg Swelling - US Doppler ruled out DVT - Pt's swelling likely due to combination of venous insufficiency and OA of left knee History of Atrial Fibrillation - Continue Diltiazem and Amiodarone - Patient's home regimen does not include anticoagulant - Review of EKG shows NSR, likely maintained by Amiodarone use - EKGs dating back to 2013 show NSR; anticoagulation likely not required due to chronic rhythm control Hyperlipidemia - Continue Atorvastatin Hypertension - No antihypertensives noted on medication list; BP in ED was 150s systolic - Hydralazine 10 mg q 4 h PRN for sBP > 160 or dBP > 110 Depression/Anxiety - Continue Wellbutrin - Continue Venlafaxine Insomnia - Continue Trazodone DVT Prophylaxis - Lovenox 40 mg daily - SCD Code Status - Level I Full Code - DaughterMadiha is point of contact Disposition - Med/Surg - OT and PT ordered
[2016-12-19 07:12] VITALS: BP 148/54; PULSE 88; TEMP 36.8; O2SAT 98
[2016-12-19 07:13] VITALS: PULSE 98; O2SAT 99
[2016-12-19] MEDS: METHYLPREDNISOLONE IV 40 MG in SYRINGE 0 ML IV SCH (07:55)
[2016-12-19] MEDS: BusPIRone 15 MG TAB PO SCH ×2 (07:56→13:42)
[2016-12-19] MEDS: PANTOprazole SOD 40 MG TAB PO SCH (07:56)
[2016-12-19] MEDS: DILTIAZEM HCL (TIAzac) 180 MG CAPCR PO SCH (07:56)
[2016-12-19] MEDS: ATORVASTATIN 40 MG TAB PO SCH (07:56)
[2016-12-19] MEDS: ASPIRIN 81 MG ECTAB PO SCH (07:56)
[2016-12-19] MEDS: LACTOBACILLUS ACIDOPHILUS (FLORANEX) TAB PO SCH ×2 (07:57→12:12)
[2016-12-19] MEDS: AMIODARONE 200 MG TAB PO SCH (07:57)
[2016-12-19] MEDS: FLUTICASONE PROPIONATE NA SPR 16 GM BTL NAE SCH (07:58)
[2016-12-19] MEDS: TIOTROPIUM BROMIDE 5 PUFF/90 MCG INH INH SCH (07:58)
[2016-12-19] MEDS: VENLAFAXINE HCL XR 75 MG CAPXR PO SCH (07:59)
[2016-12-19] MEDS: VENLAFAXINE HCL XR 150 MG CAPXR PO SCH (07:59)
[2016-12-19] MEDS ORDERED: LVQ750 PO (09:52)
[2016-12-19] MEDS ORDERED: BUDE0.5S INH (09:52)
[2016-12-19] MEDS ORDERED: PRED10TA PO (09:52)
[2016-12-19] MEDS ORDERED: IPRA1AER2 INH (09:52)
[2016-12-19] MEDS ORDERED: UMEC1INH INH (09:52)
--- NOTE | 2016-12-19 09:59 | Discharge Instructions ---
Discharge Instructions Date of Service Dec 19, 2016. Admission Reason for Admission: Left Lower Lobe Pneumonia Discharge Discharge Diagnosis / Problem: COPD exacerbation caused by a pneumonia Discharge Goals Goal(s): Diagnostic testing, Therapeutic intervention Activity Recommendations Activity Limitations: resume your previous activity . Instructions / Follow-Up Instructions / Follow-Up pneumonia -the pneumonia fortunately is getting better quite quickly - we'll just need to finish out a course of levaquin 750mg daily (next dose tomorrow) to complete treatment -levaquin is usually really well tolerated, it can sometimes upset your stomach , so if it does, take it with food. very rarely, it can make people more prone to tendonitis or even tendon rupture, so just use caution with any heavy lifting /repetitive lifting/overhead movements for the next few weeks COPD exacerbation -as is usually the case, the inflammation from the pneumonia flared up your COPD some -we'll need to use a tapering course of prednisone for this to clear it up -take 50mg for two days, 40mg for two days, 30mg for two days, 20mg for two days , 10mg for two days, then stop unless otherwise directed COPD -we'll want to make sure you have a good baseline control of your COPD ---> based on review of what you have with you, and then review of what Jessica Sparks (Pulmonary PA-C) wants you to be on, for now we'd recommend the following : -incruse once a day every day (i accidentally mis-spoke when i said twice a day with that - there's another very similar one that's twice a day - the incruse is once a day) - it's a class called "anticholinergic" that thins mucous and reduces inflammation - these are usually the most beneficial in treating COPD -breo once a day every day -pulmicort twice a day every day via the nebulizer -combivent inhaler (or your rescue neb) up to four times a day as needed for shortness of breath or wheezing -as you follow up with pulmonary this week they'll guide you further on inhalers as well --- but for now keep with this regimen Current Hospital Diet Patient's current hospital diet: AHA Diet (Heart Healthy) Discharge Diet Recommended Diet: AHA Diet (Heart Healthy) Pending Studies Studies pending at discharge: no Laboratory Results Hemoglobin A1c Test 10/18/16 14:44 Range/Units Estimated Average Glucose 120 mg/dl Hemoglobin A1c 5.8 H 4.5-5.6 % Lipid Panel Test 10/18/16 14:44 Range/Units Triglycerides Level 92 0-150 mg/dl Cholesterol Level 142 0-200 mg/dl HDL Cholesterol 65 mg/dl Cholesterol/HDL Ratio 2.2 LDL Cholesterol, Calculated 59 mg/dl Medical Emergencies . Who to Call and When: Medical Emergencies: If at any time you feel your situation is an emergency, please call 911 immediately. . Non-Emergent Contact Non-Emergency issues call your: Primary Care Provider, 3D Specialist . . "Provider Documentation" section prepared by Tariq Saeed. . VTE Core Measure Inpt VTE Proph given/why not?: Enoxaparin (Lovenox)SQ
[2016-12-19 10:21] VITALS: BP 148/54; PULSE 98; TEMP 36.8; O2SAT 99
[2016-12-19 11:15] VITALS: PULSE 90; O2SAT 97
--- NOTE | 2016-12-19 19:06 | Discharge Summary ---
Discharge Summary Date of Service Dec 19, 2016. Discharge Summary Admission Date: Dec 17, 2016 at 22:59 Discharge Date: Dec 19, 2016 Discharge Disposition: Home Principal Diagnosis: CAP w COPD exacerbation Immunizations: Have You Had Influenza Vaccine: Yes Influenza Vaccine Date: Apr 12, 2013 History of Tetanus Vaccine?: Unknown Tetanus Immunization Date: Nov 09, 2007 History of Pneumococcal: Yes Pneumococcal Date: Mar 10, 2011 History of Hepatitis B Vaccine: No Procedures: CHEST ONE VIEW PORTABLE CLINICAL HISTORY: Dyspnea, shortness of breath. COMPARISON STUDY: 10/21/2016 FINDINGS: The heart is normal in size. There is stable prominence of the left main pulmonary artery. There are nonspecific left basal airspace opacities, atelectatic versus inflammatory. There are no significant pleural effusions. There is no failure.[ IMPRESSION: Left basal airspace opacities, atelectatic versus infectious/inflammatory. Electronically signed by: Jaime Voss M.D. 12/17/2016 9:23 PM Dictated Date/Time: 12/17/2016 9:22 PM LEFT LOWER EXTREMITY VENOUS DOPPLER HISTORY: Leg swelling. r/o DVT COMPARISON STUDY: Venous Doppler 09/12/2016. FINDINGS: There is normal compressibility, flow, and augmentation within the left lower extremity deep venous system. IMPRESSION: No DVT within the left lower extremity. Electronically signed by: Jason Bosch M.D. 12/18/2016 6:51 AM Dictated Date/Time: 12/18/2016 6:50 AM Last Resulted CBC 12/19/16 06:04 Last Resulted BMP 12/19/16 06:04 Medication Reconciliation New Medications: Budesonide (Inhalation) (Pulmicort) 0.5 Mg/2 Ml Radha 1 DOSE INH BID, #60 DOSE Ipratropium-Albuterol (Combivent Respimat) 1 Aer Aer 1 PUFFS INH QID PRN for SOB/Wheezing, #1 INH Prednisone Tab (Prednisone) 10 Mg Tab 10 MG PO UD, #30 TAB 5 po x 2 days then 4 po x 2 days then 3 po x 2 days then 2 po x 2 days then 1 po x 2 days then stop Umeclidinium Perley (Incruse Ellipta) 62.5 Mcg/Inh Inh 1 PUFF INH DAILY, #1 INHA Levofloxacin (Levofloxacin) 750 Mg Tab 750 MG PO DAILY@11, #6 TAB Continued Medications: Amiodarone Hcl (Amiodarone Hcl) 100 Mg Tab 100 MG PO DAILY Aspirin (Aspirin Ec) 81 Mg Tab 81 MG PO DAILY Atorvastatin (Lipitor) 80 Mg Tab 80 MG PO DAILY Buspirone HCl (Buspirone HCl) 15 Mg Tab 15 MG PO TID Cholecalciferol (Vitamin D) 2,000 Unit Tab 2000 INTER.UNIT PO DAILY Diltiazem Hcl Ext Rel (Tiazac) 180 Mg Capcr 180 MG PO QAM, CAP Eucerin (Eucerin) Cre 1 APPLN TOP BID PRN for DRYNESS Ferrous Sulfate (Kp Ferrous Sulfate) 325 Mg Tab 1 TAB PO BID Fluticasone Furoate-Vilanterol (Breo Ellipta) 1 Inh Inh 1 PUFF INH DAILY Fluticasone Propionate (Nasal) (Flonase Allergy Relief) 50 Mcg/Act Spr 2 SPRAYS BUTCH DAILY Folic Acid (Folvite) 1 Mg Tab 1 MG PO DAILY Guaifenesin Ext Rel (Mucinex Ext Rel) 600 Mg Tab 1200 MG PO Q12 PRN for CONGESTION, TAB Home O2 Therapy (Oxygen) Gas 4 LITERS NA CONTINOUS Lactobacillus (Floranex) 1 Tab Tab 1 TAB PO TIDM Magnesium Hydroxide (Milk Of Magnesia) 30 Ml Susp 30 ML PO Q12 PRN for Constipation, ML Pantoprazole (Pantoprazole Sodium) 40 Mg Tab 40 MG PO DAILY Polyethylene Glycol 3350 (Miralax) 1 Pow Pow 17 GM PO DAILY PRN for Constipation, #527 GM Pramipexole Dihydrochloride (Pramipexole Dihydrochlori) 0.25 Mg Tab 0.25 MG PO HS Saline ([place] Nasal [place]) 0.65 % Spr 2 SPRAYS BUTCH Q6HWA Trazodone HCl (Trazodone HCl) 100 Mg Tab 100 MG PO HS Venlafaxine Hcl (Effexor Extended Rel) 150 Mg Capcr 150 MG PO DAILY TAKE WITH 75MG = 225 MG TOTAL Venlafaxine Hcl (Effexor Extended Rel) 75 Mg Capcr 75 MG PO DAILY TAKE WITH 150 MG = 225MG TOTAL Discontinued Medications: Tiotropium Perley (Spiriva Handihaler) 30 Puff/540 Mcg Aerp 1 CAP INH DAILY for 30 Days, #30 CAP 3 Refills Discharge Exam Physical Exam: General Appearance: no apparent distress Eyes: EOMI ENT: hearing grossly normal Neck: trachea midline Respiratory/Chest: no respiratory distress, no accessory muscle use, + pertinent finding (improving rales) Extremities: normal inspection 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, alert, normal mood/affect Skin: normal color, warm/dry Hospital Course Left Lower Lobe Pneumonia - basically baseline breathing now - finish levaquin - stable for home COPD - Nebs and steroids as above - Continue Breo and incruse - home O2 - reviewed home meds Left Leg Swelling - US Doppler ruled out DVT -Pt's swelling likely due to combination of venous insufficiency and OA of left knee History of Atrial Fibrillation - Continue Diltiazem and Amiodarone - Patient's home regimen does not include anticoagulant - outpatient f/u - Review of EKG shows NSR, likely maintained by Amiodarone use - EKGs dating back to 2013 show NSR; anticoagulation likely not required due to chronic rhythm control Hyperlipidemia - Continue Atorvastatin Depression/Anxiety - Continue Wellbutrin - Continue Venlafaxine Insomnia - Continue Trazodone DVT Prophylaxis - Lovenox 40 mg daily - SCD Disposition - stable for home Total Time Spent: Less than 30 minutes This includes examination of the patient, discharge planning, medication reconciliation, and communication with other providers. Discharge Instructions Please refer to the electronic Patient Visit Report (Discharge Instructions) for additional information.
== END 2016-12-19 14:45 | disposition home or self-care (01) | DRG 193 ==
LOC: EDBD 19:55 → C.EDB 19:57 → C.MED 22:59 → ENRESERV 23:05
PROVIDERS: ADMIT Student in an Organized Health Care Education/Training Program; ATTEND Family Medicine
DX: J18.9 Pneumonia, unspecified organism (principal); J44.1 Chronic obstructive pulmonary disease with (acute) exacerbation; J96.20 Acute and chronic respiratory failure, unspecified whether with hypoxia or hypercapnia; E78.5 Hyperlipidemia, unspecified; I10 Essential (primary) hypertension; I48.0 Paroxysmal atrial fibrillation; E78.00 Pure hypercholesterolemia, unspecified; Z83.3 Family history of diabetes mellitus; E11.9 Type 2 diabetes mellitus without complications; Z87.891 Personal history of nicotine dependence; Z86.73 Personal history of transient ischemic attack (TIA), and cerebral infarction without residual deficits; F41.8 Other specified anxiety disorders; I87.2 Venous insufficiency (chronic) (peripheral); M17.12 Unilateral primary osteoarthritis, left knee

== ENCOUNTER → 2017-01-02 | Outpatient (CLI) | payer OTHER, MEDICARE ==
[~2017-01-02] MED LIST changes: +AMIO0.1T PO; +BUDE0.5S INH; -CRD200 PO; -CRDCD180 PO; +DILT-113 PO; -ECRCR EXT; -FLNIN; +FLUT0.15 NAE; -GFNSR600 PO; +GUAI1TAB55 PO; +IPRA1AER2 INH; +LACT1TAB4 PO; -LCTX PO; +LVQ750 PO; +MOML PO; -MOMLX PO; -MRLP17X PO; -MRP25 PO; +POLY335019 PO; +PRAM0.256 PO; +PRED10TA PO; -SALI0.6510; +SALI0.6510 NAE; +SKINCRE34 TOP; -SPRIN/30 INH; +UMEC1INH INH
--- NOTE | 2017-01-02 13:44 | DIAGNOSTIC IMAGING REPORT ---
ULTRASOUND RIGHT LOWER EXTREMITY VENOUS CLINICAL HISTORY: Right leg pain and swelling. COMPARISON STUDY: Bilateral lower extremity venous ultrasound dated 09/12/2016. TECHNIQUE: Real-time, grayscale, and color Doppler sonography of the deep veins of the right lower extremity was performed from the inguinal crease to the calf. Compression and augmentation were utilized. FINDINGS: There is no sonographic evidence of deep venous thrombosis identified in the right lower extremity. The common femoral, superficial femoral, and popliteal veins are patent and normally compressible. The greater saphenous vein and the profunda femoris vein at the junction with the common femoral vein are clear. The visualized calf veins are patent. A popliteal cyst measures 4.9 x 1.3 x 2.3 cm. IMPRESSION: 1. There is no sonographic evidence of deep venous thrombosis identified in the right lower extremity. 2. Clark's cyst. Electronically signed by: Jose Zazueta M.D. 01/02/2017 1:43 PM Dictated Date/Time: 01/02/2017 1:42 PM
== END | disposition home or self-care (01) ==
LOC: C.ULTRBC 12:12
PROVIDERS: ATTEND Nurse Practitioner Family
DX: M79.661 Pain in right lower leg (principal); M79.89 Other specified soft tissue disorders; M71.21 Synovial cyst of popliteal space [Baker], right knee

== ENCOUNTER → 2017-02-01 | Outpatient (CLI) | payer OTHER, MEDICARE ==
--- NOTE | 2017-02-01 15:23 | DIAGNOSTIC IMAGING REPORT ---
CHEST 2 VIEWS ROUTINE CLINICAL HISTORY: F32.9 [id number] Chronic obstructive pulmonary [id number] COMPARISON STUDY: 12/17/2016 FINDINGS: Small left pleural effusion. Trace pleural fluid right lateral costophrenic angle. Lungs otherwise appear clear. IMPRESSION: Small bilateral pleural effusions. The above report was generated using voice recognition software. It may contain grammatical, syntax or spelling errors. Electronically signed by: Jose Angel Richter M.D. 02/01/2017 3:22 PM Dictated Date/Time: 02/01/2017 3:21 PM
[2017-02-01 16:10] LABS: ALT/SGPT 26 U/L (12-78); BLOOD UREA NITROGEN 13 mg/dl (7-18); BUN/CREATININE RATIO 18.8 (10-20); CALCIUM 9.2 mg/dl (8.5-10.1); CARBON DIOXIDE 38 mmol/L (21-32); CHLORIDE 100 mmol/L (98-107); CREATININE 0.67 mg/dl (0.60-1.20); GLUCOSE 141 mg/dl (70-99); POTASSIUM 3.7 mmol/L (3.5-5.1); SODIUM 142 mmol/L (136-145)
[2017-02-01 16:14] LABS: ALB/GLOB RATIO 0.7 (0.9-2); ALKALINE PHOSPHATASE 150 U/L (45-117); AST/SGOT 20 U/L (15-37); FERRITIN 60.6 ng/ml (8.0-388.0)
[2017-02-01 16:38] LABS: BASO % 0.7 %; BASO ABS # 0.05 K/uL (0-0.2); COMPLETE YES; EOS % 1.3 %; IG% 0.4 %; LYMPH % 14.6 %; LYMPH ABS # 1.09 K/uL (1.2-3.4); MEAN CELL VOLUME 97.2 fL (80-100); MEAN CORPUSCULAR HEMOGLOBIN 28.6 pg (25-34); MEAN CORPUSCULAR HGB CONC 29.5 g/dl (32-36); MEAN PLATELET VOLUME 11.1 fL (7.4-10.4); MONO % 7.9 %; NEUT % 75.1 %; PLATELET COUNT 204 K/uL (130-400); RED BLOOD COUNT 3.91 M/uL (4.2-5.4); WHITE BLOOD COUNT 7.46 K/uL (4.8-10.8)
[2017-02-01 16:57] LABS: URINE APPEARANCE TURBID (CLEAR); URINE BILIRUBIN NEG (NEG); URINE COLOR YELLOW; URINE EPITHELIAL CELL AUTO >30 /lpf (0-5); URINE NITRITE NEG (NEG); URINE PH >= 9.0 (4.5-7.5); URINE SPECIFIC GRAVITY 1.016 (1.000-1.030); UROBILINOGEN NEG (NEG)
[2017-02-01 17:19] LABS: MANUAL MICROSCOPIC REQUIRED? NO; REVIEW REQ? NO; SULFASALICYLIC ACID NEG (NEG)
--- NOTE | 2017-02-10 11:46 | CODING QUERY MEDICAL NECESSITY ---
CQSUPPORTING DIAGNOSIS NEEDED A supporting diagnosis is required for the test/procedure performed on this patient in order for us to be reimbursed by the patient's insurance. Please provide a supporting diagnosis for the following test/procedure listed below next to the test name along with your signature. *If there is no additional diagnosis for this patient that would support the following test/procedure please document that below next to the test/procedure. Test(s)/Procedure(s) that require a supporting diagnosis: DOS URINE CULTURE TEST VITAMIN B12 TEST Provider Signature: Date: Thank you Mary Maher [employer] Once completed, please kindly fax back to [phone] For questions please call [phone]
== END | disposition home or self-care (01) ==
LOC: C.RAD 14:28
PROVIDERS: ATTEND Nurse Practitioner Family
DX: E78.5 Hyperlipidemia, unspecified (principal); E88.81 Metabolic syndrome and other insulin resistance; D64.9 Anemia, unspecified; F32.9 Major depressive disorder, single episode, unspecified; I10 Essential (primary) hypertension; I48.0 Paroxysmal atrial fibrillation; J44.9 Chronic obstructive pulmonary disease, unspecified; M48.06 Spinal stenosis, lumbar region

== ENCOUNTER → 2017-03-13 | Outpatient (CLI) | payer OTHER, MEDICARE ==
[~2017-03-13] MED LIST changes: +PANT40TA2 PO; -PRT/40 PO
--- NOTE | 2017-03-13 16:12 | DIAGNOSTIC IMAGING REPORT ---
VENOUS DOPP LOWER EXT UNILAT CLINICAL HISTORY: M79.89 Swelling of left lower extremity pain. Edema. TECHNIQUE: Venous Doppler COMPARISON STUDY: None FINDINGS: Normal study IMPRESSION: Normal study The above report was generated using voice recognition software. It may contain grammatical, syntax or spelling errors. Electronically signed by: Jose Angel Richter M.D. 03/13/2017 4:11 PM Dictated Date/Time: 03/13/2017 4:11 PM
--- NOTE | 2017-03-20 13:20 | CODING QUERY MEDICAL NECESSITY ---
SUPPORTING DIAGNOSIS NEEDED A supporting diagnosis is required for the test/procedure performed on this patient in order for us to be reimbursed by the patient's insurance. Please provide a supporting diagnosis for the following test/procedure listed below next to the test name along with your signature. *If there is no additional diagnosis for this patient that would support the following test/procedure please document that below next to the test/procedure. Test(s)/Procedure(s) that require a supporting diagnosis: * US VENOUS UNIL LWR EXT DOPPLER DIAGNOSIS: Provider Signature: Date: Thank you Mendez [employer] Once completed, please kindly fax back to [phone] For questions please call [phone]
== END | disposition home or self-care (01) ==
LOC: C.ULTR 15:19
PROVIDERS: ATTEND Nurse Practitioner Family
DX: M79.89 Other specified soft tissue disorders (principal)

== ENCOUNTER → 2017-03-28 | Outpatient (CLI) | payer OTHER, MEDICARE ==
--- NOTE | 2017-03-28 14:03 | DIAGNOSTIC IMAGING REPORT ---
CHEST 2 VIEWS ROUTINE HISTORY: 76 years-old Female R05 [id number] acute cough COMPARISON: Chest radiographs 02/01/2017 TECHNIQUE: PA and lateral views of the chest FINDINGS: Cardiomediastinal and hilar silhouettes are within normal limits. There is atherosclerosis of the aorta. Small bilateral pleural effusions persist. No pneumothorax or overt pulmonary edema. Minimal subsegmental bibasilar opacities suggest compressive atelectasis. Mild hyperinflation. Degenerative changes involve the shoulders and spine. IMPRESSION: 1. Small bilateral pleural effusions with bibasilar hazy opacities suggesting atelectasis. 2. Mild hyperinflation. The above report was generated using voice recognition software. It may contain grammatical, syntax or spelling errors. Electronically signed by: Bandar Guzman M.D. 03/28/2017 2:02 PM Dictated Date/Time: 03/28/2017 2:00 PM
== END | disposition home or self-care (01) ==
LOC: C.RAD1850 13:38
PROVIDERS: ATTEND Physician Assistant
DX: J90 Pleural effusion, not elsewhere classified (principal); R91.8 Other nonspecific abnormal finding of lung field

== ENCOUNTER → 2017-03-31 | Outpatient (CLI) | payer OTHER, MEDICARE ==
[2017-03-31 16:43] LABS: BASO % 0.7 %; BASO ABS # 0.04 K/uL (0-0.2); COMPLETE YES; EOS % 3.1 %; HEMATOCRIT 41.1 % (37-47); IG% 0.3 %; LYMPH ABS # 1.33 K/uL (1.2-3.4); MEAN CELL VOLUME 98.3 fL (80-100); MEAN CORPUSCULAR HEMOGLOBIN 28.5 pg (25-34); MEAN PLATELET VOLUME 11.6 fL (7.4-10.4); MONO % 7.3 %; NEUT % 66.6 %; PLATELET COUNT 174 K/uL (130-400); RED BLOOD COUNT 4.18 M/uL (4.2-5.4); WHITE BLOOD COUNT 6.05 K/uL (4.8-10.8)
[2017-03-31 16:44] LABS: URINE APPEARANCE CLEAR (CLEAR); URINE BILIRUBIN NEG (NEG); URINE COLOR YELLOW; URINE NITRITE NEG (NEG); URINE PH 7.5 (4.5-7.5); URINE SPECIFIC GRAVITY 1.014 (1.000-1.030); UROBILINOGEN NEG (NEG)
[2017-03-31 16:47] LABS: MANUAL MICROSCOPIC REQUIRED? NO; REVIEW REQ? NO
[2017-03-31 16:59] LABS: ALT/SGPT 19 U/L (12-78); BLOOD UREA NITROGEN 14 mg/dl (7-18); BUN/CREATININE RATIO 17.8 (10-20); CALCIUM 8.8 mg/dl (8.5-10.1); CARBON DIOXIDE 35 mmol/L (21-32); CHLORIDE 102 mmol/L (98-107); CREATININE 0.78 mg/dl (0.60-1.20); GLUCOSE 143 mg/dl (70-99); POTASSIUM 3.8 mmol/L (3.5-5.1); SODIUM 140 mmol/L (136-145)
[2017-03-31 17:04] LABS: ALB/GLOB RATIO 0.9 (0.9-2); ALKALINE PHOSPHATASE 132 U/L (45-117); AST/SGOT 24 U/L (15-37); FERRITIN 36.4 ng/ml (8.0-388.0)
== END | disposition home or self-care (01) ==
LOC: C.LABBFT 13:05
PROVIDERS: ATTEND Nurse Practitioner Family
DX: N39.41 Urge incontinence (principal); D64.9 Anemia, unspecified

== ENCOUNTER 2017-04-24 16:10 | Inpatient (IN) | payer OTHER, MEDICARE ==
[~2017-04-24] VITALS: Ht 160 cm; Wt 107.0 kg
[~2017-04-24 16:10] MED LIST changes: -FOLI1TAB7 PO; +FOLI1TAB8 PO
[2017-04-24] MEDS ORDERED: METHYLPREDNISOLONE 125 MG VIAL IV STA (16:27)
[2017-04-24] MEDS ORDERED: ALBUT/IPRATROP 3MG/0.5MG NEB 3 ML VIAL INH ONE (16:30)
--- NOTE | 2017-04-24 16:36 | EMERGENCY ROOM VISIT NOTE ---
History Report prepared by Seth: Geoffrey Quinonez Under the Supervision of: Dr. Giovanny Tirado M.D. First contact with patient: 16:18 Chief Complaint: SHORTNESS OF BREATH Stated Complaint: SHORTNESS OF BREATH, COUGHING REFERRED BY CANELO History of Present Illness The patient is a 77 year old female who presents to the Emergency Room with complaints of shortness of breath that began 1 week ago. She has a past medical history of CHF and COPD. Over this time, she has been having increased respiratory problems. She is on oxygen at baseline. She does not use a CPAP at night because she is claustrophobic. She has been experiencing a productive cough and nausea. Her sputum is intermittently cornell and yellow in color. She denies any fevers, chills, chest pain, diarrhea, abnormal urinary symptoms, or vomiting. She is having some chest tightness. Her PCP referred her to the ER. She states that she is not on a water pill. Source of History: patient Onset: 1 week ago Position: other (Respiratory System) Symptom Intensity: moderate Quality: other (Shortness of breath) Associated Symptoms: + cough, + nausea, No fevers, No chills, No vomiting, No abdominal pain, No diarrhea, No urinary symptoms Review of Systems See HPI for pertinent positives and negatives. A total of ten systems were reviewed and were otherwise negative. Past Medical & Surgical Medical Problems: (1) Acute and chronic respiratory failure with hypoxia (2) Acute on chronic respiratory failure (3) Diab Zoey Wo Compl, Type Ii Or Unspec Type, Not Uncntrld (4) Diverticulosis Colon (W/O Ment Of Hemorrhage) (5) Hyperlipidemia Nec/Nos (6) Hypertension Nos (7) Left lower lobe pneumonia (8) Obstr Chronic Bronchitis, W (Acute) Exacerbation (9) Paroxysmal a-fib (10) Pneumonia, Organism Nos (11) Pure Hypercholesterolem (12) Symptomatic anemia (13) Tubal Ligation Status Family History Diabetes mellitus FH: cancer (lymphoma, breast cancer) Hypertension Social History Smoking Status: Former Smoker Alcohol Use: none Drug Use: none Marital Status: Housing Status: lives with family Occupation Status: retired Current/Historical Medications Scheduled Amiodarone Hcl (Amiodarone Hcl), 100 MG PO DAILY Aspirin (Aspirin Ec), 81 MG PO DAILY Atorvastatin (Lipitor), 80 MG PO DAILY Budesonide (Inhalation) (Pulmicort Respules 0.25MG/2ML), 0.25 MG NEB BID Buspirone HCl (Buspirone HCl), 15 MG PO TID Cholecalciferol (Vitamin D), 2,000 INTER.UNIT PO DAILY Ferrous Sulfate (Kp Ferrous Sulfate), 325 MG PO DAILY Fluticasone Furoate-Vilanterol (Breo Ellipta), 1 PUFF INH DAILY Fluticasone Propionate (Nasal) (Flonase Allergy Relief), 2 SPRAYS BUTCH DAILY Folic Acid (Folvite), 1 MG PO DAILY Lactobacillus (Floranex), 1 TAB PO TIDM Pantoprazole (Pantoprazole Sodium), 40 MG PO DAILY Pramipexole Dihydrochloride (Pramipexole Dihydrochlori), 0.5 MG PO HS Saline ([place] Nasal Waldo), 2 SPRAYS BUTCH Q6HWA Trazodone HCl (Trazodone HCl), 200 MG PO HS Umeclidinium [place] (Incruse Ellipta), 1 PUFF INH DAILY Venlafaxine Hcl (Effexor Extended Rel), 150 MG PO DAILY Venlafaxine Hcl (Effexor Extended Rel), 75 MG PO DAILY Vitamin B Cmplx/Vitc/Folic Ac (Nephrocaps), 1 CAP PO DAILY Vitamin E (Topical) (Vitamin E), 1,000 UNITS PO DAILY Scheduled PRN Eucerin (Eucerin), 1 APPLN TOP BID PRN for DRYNESS Guaifenesin Ext Rel (Mucinex Ext Rel), 1,200 MG PO Q12 PRN for CONGESTION Ipratropium-Albuterol (Combivent Respimat), 1 PUFFS INH QID PRN for SOB/Wheezing Magnesium Hydroxide (Milk Of Magnesia), 30 ML PO Q12 PRN for Constipation Polyethylene Glycol 3350 (Miralax), 17 GM PO DAILY PRN for Constipation Allergies Coded Allergies: Mushroom (Verified Allergy, Unknown, 04/24/17) Theophyllines (Verified Allergy, Unknown, Unknown, 04/24/17) Reported by daughter and listed in [facility] record. Codeine (Verified Adverse Reaction, Severe, HYPERVENTILATES, 04/24/17) Morphine (Verified Adverse Reaction, Severe, Causes Afib, 04/24/17) Physical Exam Vital Signs Date Time Temp Pulse Resp B/P (MAP) Pulse Ox O2 Delivery O2 Flow Rate FiO2 04/24/17 18:50 119 18 106/84 94 BiPAP 04/24/17 17:59 123 96 30 04/24/17 17:39 128 20 79 Non-Rebreather 13.0 04/24/17 17:08 Nasal Cannula 04/24/17 17:00 112 20 147/79 100 Nebulizer 04/24/17 16:45 108 16 100 Mask 04/24/17 16:31 99 04/24/17 16:24 5.0 04/24/17 16:14 37.0 103 24 164/76 83 Nasal Cannula 4.0 Physical Exam GENERAL: Awake, alert, dyspneic, in no distress HENT: Normocephalic, atraumatic. Oropharynx reveals dry mucous membranes. EYES: Normal conjunctiva. Sclera non-icteric. NECK: Supple. No nuchal rigidity. FROM. No JVD. RESPIRATORY: Diminished bibasilar breath sounds. Diffuse rhonchi and wheezes. Mild accessary muscle use. CARDIAC: Regular rate, normal rhythm. Extremities warm and well perfused. Pulses equal. ABDOMEN: Soft, non-distended. No tenderness to palpation. No rebound or guarding. No masses. RECTAL: Deferred. MUSCULOSKELETAL: Chest examination reveals no tenderness. The back is symmetrical on inspection without obvious abnormality. There is no CVA tenderness to palpation. No joint edema. LOWER EXTREMITIES: Calves are equal size bilaterally and non-tender. Scant edema. No discoloration. NEURO: Normal sensorium. No sensory or motor deficits noted. SKIN: No rash or jaundice noted. Medical Decision & Procedures ER Provider Diagnostic Interpretation: Radiology results as stated below per my review and radiologist interpretation: CHEST ONE VIEW PORTABLE CLINICAL HISTORY: Fever. Sepsis. Shortness of breath. Cough. COMPARISON STUDY: Chest CT September 13, 2016 and chest radiograph March 28, 2017. FINDINGS: Lung volumes are normal. There is no pneumothorax. There are suspected small bilateral pleural effusions. There is pulmonary vascular congestion with probable mild pulmonary edema. Cardiomediastinal silhouette is stable. IMPRESSION: Mild interstitial pulmonary edema with small bilateral pleural effusions. Electronically signed by: Marco Mccall M.D. 04/24/2017 4:51 PM Dictated Date/Time: 04/24/2017 4:46 PM Laboratory Results 04/24/17 17:11 Red Blood Count 3.89, Mean Corpuscular Volume 94.6, Mean Corpuscular Hemoglobin 28.5, Mean Corpuscular Hemoglobin Concent 30.2, Mean Platelet Volume 10.4, Neutrophils (%) (Auto) 69.2, Lymphocytes (%) (Auto) 17.4, Monocytes (%) (Auto) 11.8, Eosinophils (%) (Auto) 0.7, Basophils (%) (Auto) 0.3, Neutrophils # (Auto ) 7.32, Lymphocytes # (Auto) 1.84, Monocytes # (Auto) 1.25, Eosinophils # (Auto ) 0.07, Basophils # (Auto) 0.03 04/24/17 17:11 Test 04/24/17 16:35 04/24/17 16:45 04/24/17 17:11 Urine Color YELLOW Urine Appearance CLEAR (CLEAR) Urine pH 8.0 (4.5-7.5) Urine Specific Quentin 1.014 (1.000-1.030) Urine Protein NEG (NEG) Urine Glucose (UA) NEG (NEG) Urine Ketones NEG (NEG) Urine Occult Blood TRACE (NEG) Urine Nitrite NEG (NEG) Urine Bilirubin NEG (NEG) Urine Urobilinogen POS (NEG) Urine Leukocyte Esterase NEG (NEG) Urine WBC (Auto) 1-5 /hpf (0-5) Urine RBC (Auto) 5-10 /hpf (0-4) Urine Hyaline Casts (Auto) 1-5 /lpf (0-5) Urine Epithelial Cells (Auto) 5-10 /lpf (0-5) Urine Bacteria (Auto) NEG (NEG) Influenza Type A Antigen Neg for Influ A (NEG) Influenza Type B Antigen Neg for Influ B (NEG) White Blood Count 10.57 K/uL (4.8-10.8) Red Blood Count 3.89 M/uL (4.2-5.4) Hemoglobin 11.1 g/dL (12.0-16.0) Hematocrit 36.8 % (37-47) Mean Corpuscular Volume 94.6 fL (80-100) Mean Corpuscular Hemoglobin 28.5 pg (25-34) Mean Corpuscular Hemoglobin Concent 30.2 g/dl (32-36) Platelet Count 229 K/uL (130-400) Mean Platelet Volume 10.4 fL (7.4-10.4) Neutrophils (%) (Auto) 69.2 % Lymphocytes (%) (Auto) 17.4 % Monocytes (%) (Auto) 11.8 % Eosinophils (%) (Auto) 0.7 % Basophils (%) (Auto) 0.3 % Neutrophils # (Auto) 7.32 K/uL (1.4-6.5) Lymphocytes # (Auto) 1.84 K/uL (1.2-3.4) Monocytes # (Auto) 1.25 K/uL (0.11-0.59) Eosinophils # (Auto) 0.07 K/uL (0-0.5) Basophils # (Auto) 0.03 K/uL (0-0.2) RDW Standard Deviation 48.7 fL (36.4-46.3) RDW Coefficient of Variation 14.1 % (11.5-14.5) Immature Granulocyte % (Auto) 0.6 % Immature Granulocyte # (Auto) 0.06 K/uL (0.00-0.02) Venous Blood pH 7.33 (7.36-7.41) Venous Blood Partial Pressure CO2 76 mmHg (38.0-50.0) Venous Blood Partial Pressure O2 31 mmHg Venous Blood HCO3 39 mmol/L Venous Blood Oxygen Saturation < 60.0 % Venous Blood Base Excess 10.4 mEq/L Anion Gap 4.0 mmol/L (3-11) Est Creatinine Clear Calc Drug Dose 72.1 ml/min Estimated GFR () 84.9 Estimated GFR (Non- 73.2 BUN/Creatinine Ratio 13.8 (10-20) Lactic Acid Level 1.1 mmol/L (0.4-2.0) Calcium Level 9.0 mg/dl (8.5-10.1) Total Bilirubin 0.5 mg/dl (0.2-1) Direct Bilirubin 0.3 mg/dl (0-0.2) Aspartate Amino Transf (AST/SGOT) 22 U/L (15-37) Alanine Aminotransferase (ALT/SGPT) 19 U/L (12-78) Alkaline Phosphatase 126 U/L (45-117) Troponin I < 0.015 ng/ml (0-0.045) Pro-B-Type Natriuretic Peptide 597 pg/ml (0-900) Total Protein 7.6 gm/dl (6.4-8.2) Albumin 2.5 gm/dl (3.4-5.0) Lipase 73 U/L (73-393) Procalcitonin 0.06 ng/ml (0-0.5) Laboratory results reviewed by me Medications Administered Medications (Trade) Dose Ordered Sig/Buddy Route Start Time Stop Time Status Last Admin Dose Admin Albuterol/ Ipratropium (Duoneb) 12 ml ONE ONCE INH 04/24/17 16:30 04/24/17 16:31 DC 04/24/17 16:43 12 ML Methylprednisolone Sodium Succinate (Solu-Medrol IV) 125 mg NOW STAT IV 04/24/17 16:27 04/24/17 16:31 DC 04/24/17 17:10 125 MG Azithromycin 500 mg/Dextrose 255 ml @ 125 mls/hr NOW STAT IV 04/24/17 18:17 04/24/17 20:19 DC 04/24/17 18:45 125 MLS/HR Potassium Chloride (Klor-Con M10) 40 meq NOW STAT PO 04/24/17 19:32 04/24/17 20:16 DC 04/24/17 22:03 40 MEQ ECG Indication: SOB/dyspnea Rate (beats per minute): 118 Rhythm: atrial fibrillation, other (with RVR) Findings: no acute ischemic change, other (normal axis) Comparison ECG Date: 19 Dec 2016 Change: A fib is new ED Course 1618: The patient was evaluated in room A12. A complete history and physical exam was performed. 1824: Upon reexamination, the patient was resting. I discussed the test results and treatment plan with her. I discussed the case with Dr. Barroso of [facility] [place]. The patient will be evaluated for further management. Medical Decision I reviewed the patient's past medical history, medications, and the nursing notes as described above. Differential diagnosis includes but is not limited to: pneumonia, bronchitis, COPD exacerbation, ACS, and PE. The patient is a 77-year-old woman with a past medical history of COPD on home O2 and CHF who presents to emergency Department with worsening cough congestion shortness of breath the past week per history of present illness. On arrival patient is in mild distress, dyspneic appearing. AFVSS. On exam the patient is diminished at the bases with diffuse rhonchi and wheezing. CO2 70s, which is up from prior. pH 7.33. Patient still with significant dyspnea after hour of continuous neb thus she was placed on BiPAP for work of breathing in setting of hypercapnia. Patient feeling improved with this. X-ray shows mild volume overload but BNP within normal limits. Trop negative. EKG with afib, no signs of acute ischemia. HR increased after neb tx. WBC wnl however given the patient' s productive sputum patient was treated with azithromycin. Case was discussed with MARIA INES Love hospitalist, who will admit the patient for further management. Medication Reconcilliation Current Medication List: was personally reviewed by me Blood Pressure Screening Patient's blood pressure: Elevated blood pressure Referred to the hospitalist Consults Time Called: 1819 Consulting Physician: Dr. Barroso - [facility] Returned Call: 1823 I discussed the patient with him - he will evaluate the patient for further treatment. Impression Primary Impression: Acute on chronic respiratory failure with hypoxia and hypercapnia Additional Impression: COPD with exacerbation Scribe Attestation The scribe's documentation has been prepared under my direction and personally reviewed by me in its entirety. I confirm that the note above accurately reflects all work, treatment, procedures, and medical decision making performed by me. Departure Information Dispostion Being Evaluated By Hospitalist Referrals Ray Pereira III, CRNP (PCP) Patient Instructions My [facility] Problem Qualifiers
[2017-04-24 16:45] VITALS: PULSE 108; O2SAT 100
--- NOTE | 2017-04-24 16:52 | DIAGNOSTIC IMAGING REPORT ---
CHEST ONE VIEW PORTABLE CLINICAL HISTORY: Fever. Sepsis. Shortness of breath. Cough. COMPARISON STUDY: Chest CT September 13, 2016 and chest radiograph March 28, 2017. FINDINGS: Lung volumes are normal. There is no pneumothorax. There are suspected small bilateral pleural effusions. There is pulmonary vascular congestion with probable mild pulmonary edema. Cardiomediastinal silhouette is stable. IMPRESSION: Mild interstitial pulmonary edema with small bilateral pleural effusions. Electronically signed by: Marco Mccall M.D. 04/24/2017 4:51 PM Dictated Date/Time: 04/24/2017 4:46 PM
[2017-04-24 17:14] LABS: URINE APPEARANCE CLEAR (CLEAR); URINE BILIRUBIN NEG (NEG); URINE COLOR YELLOW; URINE NITRITE NEG (NEG); URINE SPECIFIC GRAVITY 1.014 (1.000-1.030); UROBILINOGEN POS (NEG)
[2017-04-24 17:16] LABS: MANUAL MICROSCOPIC REQUIRED? NO; REVIEW REQ? NO; SULFASALICYLIC ACID NEG (NEG)
[2017-04-24 17:22] LABS: BASO % 0.3 %; BASO ABS # 0.03 K/uL (0-0.2); COMPLETE YES; EOS % 0.7 %; HEMATOCRIT 36.8 % (37-47); IG% 0.6 %; LYMPH % 17.4 %; LYMPH ABS # 1.84 K/uL (1.2-3.4); MEAN CELL VOLUME 94.6 fL (80-100); MEAN CORPUSCULAR HEMOGLOBIN 28.5 pg (25-34); MEAN CORPUSCULAR HGB CONC 30.2 g/dl (32-36); MEAN PLATELET VOLUME 10.4 fL (7.4-10.4); MONO % 11.8 %; NEUT % 69.2 %; PLATELET COUNT 229 K/uL (130-400); RED BLOOD COUNT 3.89 M/uL (4.2-5.4); WHITE BLOOD COUNT 10.57 K/uL (4.8-10.8)
[2017-04-24 17:28] LABS: VEN BLOOD GAS BASE EXCESS 10.4 mEq/L; VENOUS BLOOD GAS PCO2 76 mmHg (38.0-50.0); VENOUS BLOOD GAS PO2 31 mmHg
[2017-04-24 17:29] LABS: VEN BLD GAS O2 SATURATION < 60.0 %
[2017-04-24 17:40] LABS: ALT/SGPT 19 U/L (12-78); BLOOD UREA NITROGEN 11 mg/dl (7-18); BUN/CREATININE RATIO 13.8 (10-20); CARBON DIOXIDE 37 mmol/L (21-32); CHLORIDE 97 mmol/L (98-107); CREATININE 0.79 mg/dl (0.60-1.20); GLUCOSE 144 mg/dl (70-99); POTASSIUM 3.3 mmol/L (3.5-5.1); SODIUM 138 mmol/L (136-145)
[2017-04-24] MEDS ORDERED: BUDE0.253 NEB (17:40)
[2017-04-24] MEDS ORDERED: IPRA1AER2 INH (17:44)
[2017-04-24 17:45] LABS: ALKALINE PHOSPHATASE 126 U/L (45-117); AST/SGOT 22 U/L (15-37)
[2017-04-24] MEDS ORDERED: UMEC1INH INH (17:48)
[2017-04-24] MEDS ORDERED: PRAM0.5T10 PO (17:54)
[2017-04-24 17:59] VITALS: PULSE 123; O2SAT 96
[2017-04-24] MEDS ORDERED: VITA1CRE PO (18:00)
[2017-04-24] MEDS ORDERED: B-CO1CAP17 PO (18:01)
[2017-04-24] MEDS ORDERED: AZITHROMYCIN IV 500 MG in DEXTROSE 5% 250ML 250 ML IV STA (18:17)
[2017-04-24] MEDS ORDERED: POTASSIUM CHLORIDE 10 MEQ TABCR PO STA (19:32)
[2017-04-24] MEDS ORDERED: GUAIFENESIN 600 MG TABCR PO PRN (19:45)
[2017-04-24] MEDS ORDERED: MAGNESIUM HYDROXIDE SUSP 30 ML UDC PO PRN (19:45)
[2017-04-24] MEDS ORDERED: ONDANSETRON INJ 2 MG/ML 2 ML VIAL IV PRN (19:45)
[2017-04-24] MEDS ORDERED: ALUMINUM/MAGNESIUM/SIMETH (MAALOX MAX) 30 ML UDC PO PRN (19:45)
[2017-04-24] MEDS ORDERED: EUCERIN CR 120 GM JAR EXT PRN (19:45)
[2017-04-24] MEDS ORDERED: POLYETHYLENE (MIRALAX) 17 GM PACK PO PRN (19:45)
[2017-04-24] MEDS ORDERED: ACETAMINOPHEN 325 MG TAB PO PRN (19:45)
[2017-04-24 20:40] VITALS: PULSE 124; O2SAT 98
[2017-04-24 20:45] VITALS: BP 179/94; PULSE 133; TEMP 37; O2SAT 94; BMI 42.1
[2017-04-24] MEDS ORDERED: FUROSEMIDE INJ 40 MG in SYRINGE 0 ML IV SCH (20:45)
--- NOTE | 2017-04-24 21:00 | History and Physical ---
History & Physical Date & Time of Service: Apr 24, 2017 at 19:40 Chief Complaint: Shortness Of Breath, Coughing Referred By Doc Primary Care Physician: Ray Pereira III, CRNP History of Present Illness Source: patient This is a 77 yo f that has a history of CHF with preserved EF, O2 dependent COPD that is presenting to us with worsening SOB x 1 week. The patient has noted that over the past month she started to suffer from a non productive cough as well as some abdominal weight gain. Over the past week in particular she has had an increased difficulty with SOB and productive cough for cornell like sputum. She has been trying her inhalers and mucinex at home with no improvement and saw her PCP earlier today. His recommendation was to be seen in the ED. She has felt like she has been retaining water but does not use diuretics regularly. She denies any fever, chest pain, abdominal pain but notes she has a history of constipation. She does follow with pulmonology with her most recent PFT in Dec 2016 reflecting mod- sever obs disease with mild improvement with bronchodilator and a mild improvement in FEV 1 from Jun 2015. She rahman s a history of DM however diet controlled with a HBA1C in October 2016 being 5.8. Past Medical/Surgical History Medical Problems: (1) Diab Zoey Wo Compl, Type Ii Or Unspec Type, Not Uncntrld Status: Chronic (2) Diverticulosis Colon (W/O Ment Of Hemorrhage) Status: Chronic (3) Hyperlipidemia Nec/Nos Status: Chronic (4) Hypertension Nos Status: Chronic (5) Obstr Chronic Bronchitis, W (Acute) Exacerbation Status: Chronic (6) Pneumonia, Organism Nos Status: Resolved (7) Pure Hypercholesterolem Status: Chronic (8) Tubal Ligation Status Status: Resolved Family History Diabetes mellitus FH: cancer (lymphoma, breast cancer) Hypertension Social History Smoking Status: Former Smoker Smokeless Tobacco Use: No Alcohol Use: none Drug Use: none Marital Status: Housing status: lives with family Occupational Status: retired Immunizations History of Influenza Vaccine: Yes Influenza Vaccine Date: Apr 12, 2013 History of Tetanus Vaccine?: Unknown Tetanus Immunization Date: Nov 09, 2007 History of Pneumococcal: Yes Pneumococcal Date: Mar 10, 2011 History of Hepatitis B Vaccine: No Multi-Drug Resistant Organisms History of MDRO: No Allergies Coded Allergies: Mushroom (Verified Allergy, Unknown, 04/24/17) Theophyllines (Verified Allergy, Unknown, Unknown, 04/24/17) Reported by daughter and [facility]. Codeine (Verified Adverse Reaction, Severe, HYPERVENTILATES, 04/24/17) Morphine (Verified Adverse Reaction, Severe, Causes Afib, 04/24/17) Home Medications Scheduled Amiodarone Hcl (Amiodarone Hcl), 100 MG PO DAILY Aspirin (Aspirin Ec), 81 MG PO DAILY Atorvastatin (Lipitor), 80 MG PO DAILY Budesonide (Inhalation) (Pulmicort Respules 0.25MG/2ML), 0.25 MG NEB BID Buspirone HCl (Buspirone HCl), 15 MG PO TID Cholecalciferol (Vitamin D), 2,000 INTER.UNIT PO DAILY Ferrous Sulfate (Kp Ferrous Sulfate), 325 MG PO DAILY Fluticasone Furoate-Vilanterol (Breo Ellipta), 1 PUFF INH DAILY Fluticasone Propionate (Nasal) (Flonase Allergy Relief), 2 SPRAYS BUTCH DAILY Folic Acid (Folvite), 1 MG PO DAILY Lactobacillus (Floranex), 1 TAB PO TIDM Pantoprazole (Pantoprazole Sodium), 40 MG PO DAILY Pramipexole Dihydrochloride (Pramipexole Dihydrochlori), 0.5 MG PO HS Saline ([place] Nasal [place]), 2 SPRAYS BUTCH Q6HWA Trazodone HCl (Trazodone HCl), 200 MG PO HS Umeclidinium [place] (Incruse Ellipta), 1 PUFF INH DAILY Venlafaxine Hcl (Effexor Extended Rel), 150 MG PO DAILY Venlafaxine Hcl (Effexor Extended Rel), 75 MG PO DAILY Vitamin B Cmplx/Vitc/Folic Ac (Nephrocaps), 1 CAP PO DAILY Vitamin E (Topical) (Vitamin E), 1,000 UNITS PO DAILY Scheduled PRN Eucerin (Eucerin), 1 APPLN TOP BID PRN for DRYNESS Guaifenesin Ext Rel (Mucinex Ext Rel), 1,200 MG PO Q12 PRN for CONGESTION Ipratropium-Albuterol (Combivent Respimat), 1 PUFFS INH QID PRN for SOB/Wheezing Magnesium Hydroxide (Milk Of Magnesia), 30 ML PO Q12 PRN for Constipation Polyethylene Glycol 3350 (Miralax), 17 GM PO DAILY PRN for Constipation Review of Systems Constitutional: No fever Eyes: No worsening of vision ENT: No hearing loss Respiratory: + cough, + sputum, + wheezing, + shortness of breath, + dyspnea on exertion, + dyspnea at rest, No hemoptysis Cardiovascular: No chest pain, No palpitations Abdomen: + constipation, + GI bleeding (history of this), No pain, No nausea, No vomiting, No diarrhea Musculoskeletal: + swelling, No joint pain, No muscle pain, No calf pain Genitourinary - Female: No dysuria, No hematuria Neurologic: + weakness, No numbness/tingling, No balance problems Endocrine: + fatigue Hematologic / Lymphatic: No abnormal bleeding/bruising Integumentary: No rash Physical Exam Vital Signs Date Time Temp Pulse Resp B/P (MAP) Pulse Ox O2 Delivery O2 Flow Rate FiO2 04/24/17 18:50 119 18 106/84 94 BiPAP 04/24/17 17:59 123 96 30 04/24/17 17:39 128 20 79 Non-Rebreather 13.0 04/24/17 17:08 Nasal Cannula 04/24/17 17:00 112 20 147/79 100 Nebulizer 04/24/17 16:45 108 16 100 Mask 04/24/17 16:31 99 04/24/17 16:24 5.0 04/24/17 16:14 37.0 103 24 164/76 83 Nasal Cannula 4.0 General Appearance: + moderate distress, + obese Head: normocephalic, atraumatic Eyes: normal inspection, sclerae normal ENT: normal ENT inspection Neck: supple Respiratory/Chest: + decreased breath sounds (poor air movement throughout with decreased to bilat bases), + accessory muscle use, + crackles (bilat bases) , + wheezing (expiratory wheezes noted throughout) Cardiovascular: no murmur, normal peripheral pulses, + tachycardia Abdomen/GI: normal bowel sounds, non tender, soft Back: normal inspection Extremities/Musculoskelatal: no calf tenderness, + pedal edema (+1 bilat with L >R) Neurologic/Psych: alert, normal mood/affect, oriented x 3 Skin: normal color, warm/dry, no rash Lymphatic: no adenopathy Diagnostics Laboratory Results Results Past 24 Hours Test 04/24/17 16:35 04/24/17 16:45 04/24/17 17:11 Range/Units Urine Color YELLOW Urine Appearance CLEAR CLEAR Urine pH 8.0 4.5-7.5 Urine Specific [place] 1.014 1.000-1.030 Urine Protein NEG NEG Urine Glucose (UA) NEG NEG Urine Ketones NEG NEG Urine Occult Blood TRACE NEG Urine Nitrite NEG NEG Urine Bilirubin NEG NEG Urine Urobilinogen POS NEG Urine Leukocyte Esterase NEG NEG Urine WBC (Auto) 1-5 0-5 /hpf Urine RBC (Auto) 5-10 0-4 /hpf Urine Hyaline Casts (Auto) 1-5 0-5 /lpf Urine Epithelial Cells (Auto) 5-10 0-5 /lpf Urine Bacteria (Auto) NEG NEG Influenza Type A Antigen Neg for Influ A NEG Influenza Type B Antigen Neg for Influ B NEG White Blood Count 10.57 4.8-10.8 K/uL Red Blood Count 3.89 4.2-5.4 M/uL Hemoglobin 11.1 12.0-16.0 g/dL Hematocrit 36.8 37-47 % Mean Corpuscular Volume 94.6 80-100 fL Mean Corpuscular Hemoglobin 28.5 25-34 pg Mean Corpuscular Hemoglobin Concent 30.2 32-36 g/dl Platelet Count 229 130-400 K/uL Mean Platelet Volume 10.4 7.4-10.4 fL Neutrophils (%) (Auto) 69.2 % Lymphocytes (%) (Auto) 17.4 % Monocytes (%) (Auto) 11.8 % Eosinophils (%) (Auto) 0.7 % Basophils (%) (Auto) 0.3 % Neutrophils # (Auto) 7.32 1.4-6.5 K/uL Lymphocytes # (Auto) 1.84 1.2-3.4 K/uL Monocytes # (Auto) 1.25 0.11-0.59 K/uL Eosinophils # (Auto) 0.07 0-0.5 K/uL Basophils # (Auto) 0.03 0-0.2 K/uL RDW Standard Deviation 48.7 36.4-46.3 fL RDW Coefficient of Variation 14.1 11.5-14.5 % Immature Granulocyte % (Auto) 0.6 % Immature Granulocyte # (Auto) 0.06 0.00-0.02 K/uL Venous Blood pH 7.33 7.36-7.41 Venous Blood Partial Pressure CO2 76 38.0-50.0 mmHg Venous Blood Partial Pressure O2 31 mmHg Venous Blood HCO3 39 mmol/L Venous Blood Oxygen Saturation < 60.0 % Venous Blood Base Excess 10.4 mEq/L Sodium Level 138 136-145 mmol/L Potassium Level 3.3 3.5-5.1 mmol/L Chloride Level 97 98-107 mmol/L Carbon Dioxide Level 37 21-32 mmol/L Anion Gap 4.0 3-11 mmol/L Blood Urea Nitrogen 11 7-18 mg/dl Creatinine 0.79 0.60-1.20 mg/dl Est Creatinine Clear Calc Drug Dose 72.1 ml/min Estimated GFR () 84.9 Estimated GFR (Non- 73.2 BUN/Creatinine Ratio 13.8 10-20 Random Glucose 144 70-99 mg/dl Lactic Acid Level 1.1 0.4-2.0 mmol/L Calcium Level 9.0 8.5-10.1 mg/dl Total Bilirubin 0.5 0.2-1 mg/dl Direct Bilirubin 0.3 0-0.2 mg/dl Aspartate Amino Transf (AST/SGOT) 22 15-37 U/L Alanine Aminotransferase (ALT/SGPT) 19 12-78 U/L Alkaline Phosphatase 126 45-117 U/L Troponin I < 0.015 0-0.045 ng/ml Pro-B-Type Natriuretic Peptide 597 0-900 pg/ml Total Protein 7.6 6.4-8.2 gm/dl Albumin 2.5 3.4-5.0 gm/dl Lipase 73 73-393 U/L Microbiology Results 04/24/17 Blood Culture, Received Pending 04/24/17 Blood Culture, Received Pending 04/24/17 Urine Culture, Received Pending Diagnostic Radiology CHEST ONE VIEW PORTABLE CLINICAL HISTORY: Fever. Sepsis. Shortness of breath. Cough. COMPARISON STUDY: Chest CT September 13, 2016 and chest radiograph March 28, 2017. FINDINGS: Lung volumes are normal. There is no pneumothorax. There are suspected small bilateral pleural effusions. There is pulmonary vascular congestion with probable mild pulmonary edema. Cardiomediastinal silhouette is stable. IMPRESSION: Mild interstitial pulmonary edema with small bilateral pleural effusions. EKG Poor data quality, interpretation may be adversely affected Atrial fibrillation with rapid ventricular response Abnormal ECG When compared with ECG of 07-AUG-2017 10:51, Atrial fibrillation has replaced Sinus rhythm Impression Assessment and Plan This is a 77 yo f that is presenting to us with acute on chronic hypoxic resp failure along with Afibb with RVR most likely resulting in acute diastolic CHF Acute on chronic hypoxic respiratory failure in presence of severe COPD - Tele admission - Currently on BiPAP with a goal of 88-93% O 2 sat ( after previous admission for COPD in august the patient was placed on BIPAP qHS however due to non compliance this was discontinued) - Concern for bacterial source with productive sputum; Rocephin and Azithro - procalcitonin - Methylpred 60 mg qid - Continue Budesonide bid, Breo daily and Incruse Ellipta daily - duoneb qid R - mucinex prn Acute on chronic diastolic CHF - Lasix 40 mg IV administered - last echo was August 2016: * The left ventricle is hyperdynamic. * No regional wall motion abnormalities noted. * Ejection Fraction = >70 %. * There is mild concentric left ventricular hypertrophy. * Grade I diastolic dysfunction, (abnormal relaxation pattern). * There is mild tricuspid regurgitation - will defer echo repeat to day team - I&O and daily weight A fibb with RVR - troponin negative - may improve with interventions noted above - consider addition of diltiazem if no improvement - EKG in am - continue Amiodarone 100 mg daily Hypokalemia - Administered 40 meq of PO KCL prior to lasix administration - follow up level in the am Hyperlipidemia/ homocysteinemia / h/o CVA - continue ASA 81 mg - continue Lipitor 80 mg daily H/o GI bleed - continue Protonix 40 mg daily Anxiety - continue Effexor 75 and 150 mg daily, Trazodone 200 mg HS DMII - BSG AC hs while on steroids - will appropriately add sliding scale based on sugars DVT Prophylaxis - SCD Attending Addendum: I have physically seen and examined this patient, have directed the resident's medical activities, and agree with the H&P as noted above with the following exceptions as noted. The patient is awake, alert and oriented 3, well-developed and well-nourished , normocephalic and atraumatic, lying in bed and in no acute distress. HEENT--PERRL, EOMI, mucous membranes and oropharynx dry. Neck--supple, no JVD or bruits, thyroid normal, trachea midline, no adenopathy. Heart--normal S1 and S2, no extra beats, no murmurs, rubs or gallops. Lungs--coarse breath sounds bilaterally with scattered wheezes, no further respiratory distress on BiPAP, no accessory muscle use. Abdomen--normal bowel sounds and soft, nontender and nondistended, no hernias or masses, obese. Extremities--no cyanosis, clubbing. 1+ bilateral, left worse than right pitting edema. There are good distal pulses b/l. Dermatologic--normal skin turgor, normal color, warm and dry, no abnormal lymph nodes, no rash. Neurologic--cranial nerves II through XII grossly intact. Rheumatologic--normal range of motion. Psychiatric--normal affect. Assessment and Plan: Acute on chronic respiratory failure with hypoxia and hypercapnia/COPD exacerbation/CHF exacerbation/on BiPAP-- Continue BiPAP at current settings, and taper to nasal cannula oxygen as clinically improves. COPD exacerbation-- Sputum Gram stain and culture Ceftriaxone 1 g IV daily and azithromycin 500 mg IV daily Solu-Medrol 60 mg IV every 6 hours Pulmicort Respules 0.5 mg inhaled twice a day DuoNeb's 4 times a day while awake and every 2 hours when necessary Guaifenesin extended release 600 mg by mouth twice a day Order bilateral lower extremity venous Dopplers. CHF exacerbation/A. fib/hypertension-- The patient will be admitted to telemetry for serial cardiac enzymes, and cardiac rhythm monitoring . Looks to be mildly fluid overloaded Give Lasix 40 mg IV now and every morning Klor-Con 40 mEq by mouth every morning Continue aspirin 81 mg daily and amiodarone 100 mg daily. Follow daily weights Anxiety with depression-- Continue buspirone, trazodone and Effexor XR Hyperlipidemia-- Continue atorvastatin GERD/GI bleed history-- Continue pantoprazole Restless leg syndrome-- Continue Mirapex Level of Care Telemetry Advanced Directives Existing Advance Directive: No Existing Living Will: No Existing Power of Collar Baster: No Resuscitation Status FULL RESUSCITATION VTE Prophylaxis VTE Risk Assessment Done? Y/N: Yes Risk Level: Moderate Given or contraindicated: SCD's Social Service Consult None Apply Note Total Time: Critical Care 30 - 74 minutes Additional Copies To Ray Pereira III, CRNP
[2017-04-24] MEDS: CEFTRIAXONE SOD INJ 1 GM in DEXTROSE 5% ADD-VANTAGE 50ML 50 ML IV SCH (21:18)
[2017-04-24] MEDS: METHYLPREDNISOLONE IV 60 MG in SYRINGE 0 ML IV SCH (21:18)
--- NOTE | 2017-04-24 21:31 | DIAGNOSTIC IMAGING REPORT ---
ULTRASOUND LEFT LOWER EXTREMITY VENOUS CLINICAL HISTORY: Left lower extremity edema. COMPARISON STUDY: Left lower extremity venous ultrasound dated 12/17/2016. TECHNIQUE: Real-time, grayscale, and color Doppler sonography of the deep veins of the left lower extremity was performed from the inguinal crease to the calf. Compression and augmentation were utilized. FINDINGS: There is no sonographic evidence of deep venous thrombosis identified in the left lower extremity. The common femoral, superficial femoral, and popliteal veins are patent and normally compressible. The greater saphenous vein and the profunda femoris vein at the junction with the common femoral vein are clear. The visualized calf veins are patent. IMPRESSION: There is no sonographic evidence of deep venous thrombosis identified in the left lower extremity. Electronically signed by: Jose Zazueta M.D. 04/24/2017 9:29 PM Dictated Date/Time: 04/24/2017 9:29 PM
[2017-04-24] MEDS: BusPIRone 15 MG TAB PO SCH (21:48)
[2017-04-24] MEDS: TRAZODONE HCL 100 MG TAB PO SCH (21:49)
[2017-04-24] MEDS: PRAMIPEXOLE DIHYDROCHLORIDE 0.5 MG TAB PO SCH (21:49)
[2017-04-24 22:00] VITALS: O2SAT 97
[2017-04-24 23:05] VITALS: BP 126/62; PULSE 98; TEMP 36.7; O2SAT 95
[2017-04-24] MEDS: SODIUM CHLORIDE 0.65% NA SOLN 45 ML (OCEAN) NAE SCH (23:19)
[2017-04-25] VITALS (13 sets, daily range): BP systolic 130–167; BP diastolic 62–83; PULSE 89–101; TEMP 36.5–37; O2SAT 94–99; BMI 41.7
[2017-04-25] MEDS: SODIUM CHLORIDE 0.65% NA SOLN 45 ML (OCEAN) NAE SCH ×4 (06:05→23:27)
[2017-04-25 07:10] LABS: BASO % 0.1 %; BASO ABS # 0.01 K/uL (0-0.2); COMPLETE YES; HEMATOCRIT 36.7 % (37-47); IG% 0.4 %; LYMPH % 7.4 %; MEAN CELL VOLUME 95.1 fL (80-100); MEAN CORPUSCULAR HEMOGLOBIN 28.8 pg (25-34); MEAN CORPUSCULAR HGB CONC 30.2 g/dl (32-36); MEAN PLATELET VOLUME 10.7 fL (7.4-10.4); MONO % 1.8 %; NEUT % 90.3 %; PLATELET COUNT 229 K/uL (130-400); RED BLOOD COUNT 3.86 M/uL (4.2-5.4); WHITE BLOOD COUNT 6.78 K/uL (4.8-10.8)
[2017-04-25 07:48] LABS: ALB/GLOB RATIO 0.5 (0.9-2); BUN/CREATININE RATIO 17.6 (10-20); CALCIUM 8.7 mg/dl (8.5-10.1); CREATININE 1.03 mg/dl (0.60-1.20); POTASSIUM 4.2 mmol/L (3.5-5.1)
[2017-04-25] MEDS: POTASSIUM CHLORIDE 20 MEQ TABCR PO SCH (07:50)
[2017-04-25] MEDS: ASPIRIN 81 MG ECTAB PO SCH (07:50)
[2017-04-25] MEDS: LACTOBACILLUS ACIDOPHILUS (FLORANEX) TAB PO SCH ×3 (07:51→17:35)
[2017-04-25] MEDS: ATORVASTATIN 40 MG TAB PO SCH (07:51)
[2017-04-25] MEDS: METHYLPREDNISOLONE IV 60 MG in SYRINGE 0 ML IV SCH ×4 (07:51→20:53)
[2017-04-25] MEDS: VENLAFAXINE HCL XR 75 MG CAPXR PO SCH (07:51)
[2017-04-25] MEDS: FERROUS SULFATE 325 MG TAB PO SCH (07:52)
[2017-04-25] MEDS: VENLAFAXINE HCL XR 150 MG CAPXR PO SCH (07:52)
[2017-04-25] MEDS: NEPHROCAPS PO SCH (07:52)
[2017-04-25] MEDS: AMIODARONE 200 MG TAB PO SCH (07:53)
[2017-04-25] MEDS: CHOLECALCIFEROL 1000 INTER.UNIT TAB PO SCH (07:53)
[2017-04-25] MEDS: PANTOprazole SOD 40 MG TAB PO SCH (07:53)
[2017-04-25] MEDS: BusPIRone 15 MG TAB PO SCH ×3 (07:53→21:00)
[2017-04-25] MEDS: FLUTICASONE PROPIONATE NA SPR 16 GM BTL NAE SCH (07:54)
[2017-04-25 07:58] LABS: BETA-HYDROXYBUTYRATE 1.38 mg/dL (0.2-2.81)
[2017-04-25] MEDS: ALBUT/IPRATROP 3MG/0.5MG NEB 3 ML VIAL INH SCH ×4 (08:04→18:46)
[2017-04-25] MEDS: FUROSEMIDE INJ 20 MG in SYRINGE 0 ML IV SCH (08:06)
[2017-04-25] MEDS: POLYETHYLENE (MIRALAX) 17 GM PACK PO SCH (08:06)
[2017-04-25] MEDS ORDERED: GLUCOSE 40% GEL 15 GM TUBE PO PRN (08:15)
[2017-04-25] MEDS ORDERED: DEXTROSE 50% 50 ML SYR IV PRN (08:15)
[2017-04-25] MEDS ORDERED: GLUCAGON FOR INJ 1 MG VIAL SQ PRN (08:15)
[2017-04-25] MEDS ORDERED: GLUCOSE 10 TABS/TUBE PO PRN (08:15)
[2017-04-25 08:51] LABS: ESTIMATED AVERAGE GLUCOSE 160 mg/dl; HA1C FLAG Normal (Normal)
[2017-04-25] MEDS ORDERED: VITAMIN E 1000 UNIT PO SCH (09:00)
[2017-04-25] MEDS: INSULIN ASPART 100 UNITS/ML 3 ML PEN SC SCH ×3 (12:09→21:11)
--- NOTE | 2017-04-25 15:14 | Family Medicine Progress Note ---
Progress Note Date of Service Apr 25, 2017. Subjective Pt evaluation today including: conversation w/ patient, physical exam, chart review, lab review, review of inpatient medication list Pain: No pain reported PO Intake: Tolerating PO intake Voiding: no voiding problems Ms. Church reports she feels better today than yesterday. She states her breathing has improved, and almost feels back to normal. She has been on 4L of oxygen continuously at home, and was meant to use her BiPAP after her last discharge from the hospital, but stated she did not like wearing it and so she no longer has one. She also reports she has a history of paroxysmal atrial fibrillation, for which she sees Dr. Choi. She has not been on anticoagulation since July of this year due to a GI bleed necessitating transfusion for which they never determined the source. She reports she is able to feel her atrial fibrillation and states she gets palpitations 4-5 times a week, and that it dissipates in a few seconds. She denies any chest pain or shortness of breath at rest. Constitutional: No fever, No chills Respiratory: + cough, + sputum, No hemoptysis Cardiovascular: No chest pain Abdomen: No pain, No nausea, No vomiting, No diarrhea, No constipation All Other Systems: Reviewed and Negative Medications Current Inpatient Medications Medications (Trade) Dose Ordered Sig/Buddy Route Start Time Stop Time Status Last Admin Dose Admin Acetaminophen (Tylenol Tab) 650 mg Q4H PRN PO 04/24/17 19:45 05/24/17 19:44 Al Hydrox/Mg Hydrox/Simethicone (Maalox Max Susp) 15 ml Q4H PRN PO 04/24/17 19:45 05/24/17 19:44 Magnesium Hydroxide (Milk Of Magnesia Susp) 30 ml Q12H PRN PO 04/24/17 19:45 05/24/17 19:44 Ondansetron HCl (Zofran Inj) 4 mg Q6H PRN IV 04/24/17 19:45 05/24/17 19:44 Polyethylene (Miralax Powder Packet) 17 gm DAILY PO 04/25/17 09:00 05/25/17 08:59 04/25/17 08:06 17 GM Methylprednisolone Sodium Succinate 60 mg/Syringe 0.96 ml @ 1.5 mls/min QID IV 04/24/17 21:00 05/24/17 20:59 04/25/17 12:09 1.5 MLS/MIN Azithromycin 250 mg/Dextrose 252.5 ml @ 125 mls/hr Q24H IV 04/25/17 18:00 05/02/17 17:59 Albuterol/ Ipratropium (Duoneb) 3 ml QIDR INH 04/25/17 08:00 05/25/17 07:59 04/25/17 11:19 3 ML Ceftriaxone Sodium 1 gm/ Dextrose 50 ml @ 100 mls/hr Q24H IV 04/24/17 21:00 05/01/17 20:59 04/24/17 21:18 100 MLS/HR Aspirin (Ecotrin Tab) 81 mg DAILY PO 04/25/17 09:00 05/25/17 08:59 04/25/17 07:50 81 MG Atorvastatin Calcium (Lipitor Tab) 80 mg DAILY PO 04/25/17 09:00 05/25/17 08:59 04/25/17 07:51 80 MG Budesonide (Pulmicort Respules 0.25MG/ 2ML Neb Soln) 0.25 mg BIDR INH 04/25/17 08:00 05/25/17 07:59 Buspirone HCl (BusPAR TAB) 15 mg TID PO 04/24/17 21:00 05/24/17 20:59 04/25/17 14:08 15 MG Multi-Ingredient Ointment (Eucerin Unscented Cr) 1 appln BID PRN EXT 04/24/17 19:45 05/24/17 19:44 Fluticasone Propionate (Flonase Nasal [place]) 2 sprays DAILY BUTCH 04/25/17 09:00 05/25/17 08:59 04/25/17 07:54 2 SPRAYS Folic Acid (Folvite Tab) 1 mg DAILY PO 04/25/17 09:00 05/25/17 08:59 04/25/17 07:51 1 MG Guaifenesin (Mucinex Contr Rel Tab) 1,200 mg Q12 PRN PO 04/24/17 19:45 05/24/17 19:44 Lactobacillus Acidophilus (Floranex Tab) 1 tab TIDM PO 04/25/17 07:30 05/25/17 07:59 04/25/17 12:09 1 TAB Pantoprazole Sodium (Protonix Tab) 40 mg DAILY PO 04/25/17 09:00 05/25/17 08:59 04/25/17 07:53 40 MG Pramipexole Dihydrochloride (miraPEX TAB) 0.5 mg HS PO 04/24/17 21:00 05/24/17 20:59 04/24/17 21:49 0.5 MG Sodium Chloride ([place] Nasal [place]) 2 sprays Q6HWA BUTCH 04/25/17 00:00 05/25/17 00:00 04/25/17 12:09 2 SPRAYS Trazodone HCl (Desyrel Tab) 200 mg HS PO 04/24/17 21:00 05/24/17 20:59 04/24/17 21:49 200 MG Venlafaxine HCl (effeXOR EXTENDED REL CAP) 75 mg DAILY PO 04/25/17 09:00 05/25/17 08:59 04/25/17 07:51 75 MG Venlafaxine HCl (effeXOR EXTENDED REL CAP) 150 mg DAILY PO 04/25/17 09:00 05/25/17 08:59 04/25/17 07:52 150 MG Vitamin B Complex/ Vit C/Folic Acid (Nephrocaps) 1 cap DAILY PO 04/25/17 09:00 05/25/17 08:59 04/25/17 07:52 1 CAP Amiodarone HCl (Cordarone Tab) 100 mg DAILY PO 04/25/17 09:00 05/25/17 08:59 04/25/17 07:53 100 MG Cholecalciferol (Vitamin D Tab) 2,000 inter.unit DAILY PO 04/25/17 09:00 05/25/17 08:59 04/25/17 07:53 2,000 INTER.UNIT Ferrous Sulfate (Feosol Tab) 325 mg DAILY PO 04/25/17 09:00 05/25/17 08:59 04/25/17 07:52 325 MG Miscellaneous Information (Order Awaiting Action) 1 ea QS N/A 04/24/17 20:30 05/24/17 20:29 Polyethylene (Miralax Powder Packet) 17 gm DAILY PRN PO 04/24/17 19:45 05/24/17 19:44 Miscellaneous Information (Order Awaiting Action) 1 ea QS N/A 04/24/17 20:30 05/24/17 20:29 Furosemide 20 mg/ Syringe 2 ml @ 4 mls/min QAM IV 04/25/17 09:00 05/25/17 08:59 04/25/17 08:06 4 MLS/MIN Potassium Chloride (Klor-Con Tab) 20 meq QAM PO 04/25/17 09:00 05/25/17 08:59 04/25/17 07:50 20 MEQ Insulin Aspart (novoLOG ASPART) SLIDING SCALE If C... ACHS SC 04/25/17 11:00 05/25/17 10:59 04/25/17 12:09 13 UNITS Glucose (Glucose 40% Gel) 15-30 GRAMS 15 GRAMS... UD PRN PO 04/25/17 08:15 05/25/17 08:14 Glucose (Glucose Chew Tab) 4-8 Tablets 4 Tabl... UD PRN PO 04/25/17 08:15 05/25/17 08:14 Dextrose (Dextrose 50% 50ML Syringe) 25-50ML OF 50% DW IV FOR... UD PRN IV 04/25/17 08:15 05/25/17 08:14 Glucagon (Glucagon Inj) 1 mg UD PRN SQ 04/25/17 08:15 05/25/17 08:14 Objective Vital Signs Date Time Temp Pulse Resp B/P (MAP) Pulse Ox O2 Delivery O2 Flow Rate FiO2 04/25/17 12:00 94 Nasal Cannula 4.0 30 04/25/17 11:24 37.0 96 18 167/83 (111) 96 4.0 04/25/17 11:19 94 18 97 Nasal Cannula 4.0 04/25/17 08:00 94 Nasal Cannula 4.0 30 04/25/17 07:30 36.8 96 18 152/80 (104) 97 4.0 04/25/17 07:20 93 16 95 Nasal Cannula 4.0 04/25/17 04:15 Nasal Cannula 6.0 04/25/17 03:48 36.5 89 20 138/82 (100) 99 Nasal Cannula 6.0 04/24/17 23:20 Nasal Cannula 6.0 04/24/17 23:05 36.7 98 20 126/62 (83) 95 Nasal Cannula 6.0 04/24/17 22:00 97 Nasal Cannula 6.0 04/24/17 20:45 37.0 133 22 179/94 94 BiPAP 30 04/24/17 20:40 124 98 30 04/24/17 18:50 119 18 106/84 94 BiPAP 04/24/17 17:59 123 96 30 04/24/17 17:39 128 20 79 Non-Rebreather 13.0 04/24/17 17:08 Nasal Cannula 04/24/17 17:00 112 20 147/79 100 Nebulizer 04/24/17 16:45 108 16 100 Mask 04/24/17 16:31 99 04/24/17 16:24 5.0 04/24/17 16:14 37.0 103 24 164/76 83 Nasal Cannula 4.0 Physical Exam General Appearance: WD/WN, no apparent distress Respiratory/Chest: chest non-tender, no respiratory distress, no accessory muscle use, + decreased breath sounds, + wheezing Cardiovascular: regular rate, rhythm, no edema, no gallop, no JVD, no murmur Abdomen: normal bowel sounds, non tender, soft, no organomegaly, no pulsatile mass Laboratory Results Last 24 Hours Test 04/24/17 16:35 04/24/17 16:45 04/24/17 17:11 04/25/17 06:38 Urine Color YELLOW Urine Appearance CLEAR Urine pH 8.0 Urine Specific [place] 1.014 Urine Protein NEG Urine Glucose (UA) NEG Urine Ketones NEG Urine Occult Blood TRACE Urine Nitrite NEG Urine Bilirubin NEG Urine Urobilinogen POS Urine Leukocyte Esterase NEG Urine WBC (Auto) 1-5 /hpf Urine RBC (Auto) 5-10 /hpf Urine Hyaline Casts (Auto) 1-5 /lpf Urine Epithelial Cells (Auto) 5-10 /lpf Urine Bacteria (Auto) NEG Influenza Type A Antigen Neg for Influ A Influenza Type B Antigen Neg for Influ B White Blood Count 10.57 K/uL Red Blood Count 3.89 M/uL Hemoglobin 11.1 g/dL Hematocrit 36.8 % Mean Corpuscular Volume 94.6 fL Mean Corpuscular Hemoglobin 28.5 pg Mean Corpuscular Hemoglobin Concent 30.2 g/dl Platelet Count 229 K/uL Mean Platelet Volume 10.4 fL Neutrophils (%) (Auto) 69.2 % Lymphocytes (%) (Auto) 17.4 % Monocytes (%) (Auto) 11.8 % Eosinophils (%) (Auto) 0.7 % Basophils (%) (Auto) 0.3 % Neutrophils # (Auto) 7.32 K/uL Lymphocytes # (Auto) 1.84 K/uL Monocytes # (Auto) 1.25 K/uL Eosinophils # (Auto) 0.07 K/uL Basophils # (Auto) 0.03 K/uL RDW Standard Deviation 48.7 fL RDW Coefficient of Variation 14.1 % Immature Granulocyte % (Auto) 0.6 % Immature Granulocyte # (Auto) 0.06 K/uL Venous Blood pH 7.33 Venous Blood Partial Pressure CO2 76 mmHg Venous Blood Partial Pressure O2 31 mmHg Venous Blood HCO3 39 mmol/L Venous Blood Oxygen Saturation < 60.0 % Venous Blood Base Excess 10.4 mEq/L Sodium Level 138 mmol/L Potassium Level 3.3 mmol/L Chloride Level 97 mmol/L Carbon Dioxide Level 37 mmol/L Anion Gap 4.0 mmol/L Blood Urea Nitrogen 11 mg/dl Creatinine 0.79 mg/dl Est Creatinine Clear Calc Drug Dose 72.1 ml/min Estimated GFR () 84.9 Estimated GFR (Non- 73.2 BUN/Creatinine Ratio 13.8 Random Glucose 144 mg/dl Lactic Acid Level 1.1 mmol/L Calcium Level 9.0 mg/dl Total Bilirubin 0.5 mg/dl Direct Bilirubin 0.3 mg/dl Aspartate Amino Transf (AST/SGOT) 22 U/L Alanine Aminotransferase (ALT/SGPT) 19 U/L Alkaline Phosphatase 126 U/L Troponin I < 0.015 ng/ml Pro-B-Type Natriuretic Peptide 597 pg/ml Total Protein 7.6 gm/dl Albumin 2.5 gm/dl Lipase 73 U/L Procalcitonin 0.06 ng/ml Bedside Glucose 353 mg/dl Test 04/25/17 06:44 04/25/17 08:48 04/25/17 11:12 04/25/17 14:22 White Blood Count 6.78 K/uL Red Blood Count 3.86 M/uL Hemoglobin 11.1 g/dL Hematocrit 36.7 % Mean Corpuscular Volume 95.1 fL Mean Corpuscular Hemoglobin 28.8 pg Mean Corpuscular Hemoglobin Concent 30.2 g/dl Platelet Count 229 K/uL Mean Platelet Volume 10.7 fL Neutrophils (%) (Auto) 90.3 % Lymphocytes (%) (Auto) 7.4 % Monocytes (%) (Auto) 1.8 % Eosinophils (%) (Auto) 0.0 % Basophils (%) (Auto) 0.1 % Neutrophils # (Auto) 6.12 K/uL Lymphocytes # (Auto) 0.50 K/uL Monocytes # (Auto) 0.12 K/uL Eosinophils # (Auto) 0.00 K/uL Basophils # (Auto) 0.01 K/uL RDW Standard Deviation 48.2 fL RDW Coefficient of Variation 14.1 % Immature Granulocyte % (Auto) 0.4 % Immature Granulocyte # (Auto) 0.03 K/uL Sodium Level 137 mmol/L Potassium Level 4.2 mmol/L Chloride Level 96 mmol/L Carbon Dioxide Level 39 mmol/L Anion Gap 2.0 mmol/L Blood Urea Nitrogen 18 mg/dl Creatinine 1.03 mg/dl Est Creatinine Clear Calc Drug Dose 55.2 ml/min Estimated GFR () 61.6 Estimated GFR (Non- 53.1 BUN/Creatinine Ratio 17.6 Random Glucose 370 mg/dl Estimated Average Glucose 160 mg/dl Hemoglobin A1c 7.2 % Calcium Level 8.7 mg/dl Total Bilirubin 0.3 mg/dl Aspartate Amino Transf (AST/SGOT) 23 U/L Alanine Aminotransferase (ALT/SGPT) 20 U/L Alkaline Phosphatase 122 U/L Total Protein 7.2 gm/dl Albumin 2.3 gm/dl Globulin 4.9 gm/dl Albumin/Globulin Ratio 0.5 Beta-Hydroxybutyric Acid 1.38 mg/dL Troponin I < 0.015 ng/ml Bedside Glucose 379 mg/dl Assessment and Plan Ms. 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 Acute on chronic hypoxic respiratory failure in presence of severe COPD - Currently on BiPAP with a goal of 88-93% O 2 sat (after previous admission for COPD in august the patient was placed on BIPAP qHS however due to non compliance this was discontinued) - Concern for bacterial source with productive sputum - continue Rocephin and Azithromycin - possible concern of aspiration. consult speech therapy. - Continue Methylprednisone 60 mg qid - Continue Budesonide bid, Breo daily and Incruse Ellipta daily - Continue duoneb qid and mucinex prn - she will likely need BiPAP on discharge, so will obtain overnight pulse ox and ABG Acute on chronic diastolic CHF - In total, she received 60mg IV Lasix yesterday and today - last echo was August 2016: * The left ventricle is hyperdynamic. * No regional wall motion abnormalities noted. * Ejection Fraction = >70 %. * There is mild concentric left ventricular hypertrophy. * Grade I diastolic dysfunction, (abnormal relaxation pattern). * There is mild tricuspid regurgitation - I&O and daily weight - BNP 597 Afib with RVR on admission - back in NSR - troponins and EKG negative for ischemic changes - has been in afib, but currently in sinus rhythm - continue Amiodarone 100 mg daily Hypokalemia - Administered 40 meq of PO KCL prior to lasix administration - K was 4.2 today, will continue to monitor Hyperlipidemia/ homocysteinemia / h/o CVA - continue ASA 81 mg - continue Lipitor 80 mg daily H/o GI bleed - continue Protonix 40 mg daily Anxiety - continue Effexor 75 and 150 mg daily, Trazodone 200 mg HS DMII - BSG AC hs while on steroids - 10 units Lantus tonight and Insulin SS with goals between 140-180 with CF of 30 and Carb Ratio of 10 DVT Prophylaxis: SCD Code: Full Disposition: remains on telemetry Resident Tracking Resident Involvement: Resident Care Provided Care Provided: Adult Hospital Medicine Reviewed: Pt Seen/Exam by Me History breathing better does complain of having food getting stuck in the throat and coming up sometimes. Constitutional: denies: fever Respiratory: negative: short of breath Cardiovascular: denies chest pain General Appearance: no apparent distress, obese Respiratory: no respiratory distress, wheezing Cardiovascular: regular rate, rhythm Gastrointestinal: soft Neurologic/Psychiatric: alert, oriented x 3 Skin Characteristics: warm/dry Assessment/Plan Resident Physician Supervision Note: I independently interviewed and examined the patient and verified the goyal history and physical, reviewed labs and image studies, discussed the case with the resident Dr. Franco and agree with the findings and care plan.
[2017-04-25 15:37] LABS: ARTERIAL BLOOD GAS BASE EXCESS 9.8 mEq/L (-9-1.8); ARTERIAL BLOOD GAS HCO3 37 mmol/L (19-24); ARTERIAL BLOOD GAS PO2 80 mm/Hg (80-95); ARTERIAL BLOOD GAS pH 7.38 (7.35-7.45)
[2017-04-25 15:42] LABS: ALLEN TEST POS (POS); O2 ADMINISTRATION 4 L
[2017-04-25] MEDS: AZITHROMYCIN IV 250 MG in DEXTROSE 5% 250ML 250 ML IV SCH (17:32)
[2017-04-25] MEDS: BUDESONIDE 0.25 MG/2 ML VIAL (PULMICORT) INH SCH (18:46)
[2017-04-25] MEDS: CEFTRIAXONE SOD INJ 1 GM in DEXTROSE 5% ADD-VANTAGE 50ML 50 ML IV SCH (20:56)
[2017-04-25] MEDS ORDERED: INSULIN ASPART 100 UNITS/ML 3 ML PEN SC ONE (21:00)
[2017-04-25] MEDS: TRAZODONE HCL 100 MG TAB PO SCH (21:00)
[2017-04-25] MEDS: PRAMIPEXOLE DIHYDROCHLORIDE 0.5 MG TAB PO SCH (21:00)
[2017-04-25] MEDS ORDERED: LANTUS PER UNIT CHARGE SQ ONE (21:00)
[2017-04-26] VITALS (9 sets, daily range): BP systolic 128–163; BP diastolic 69–90; PULSE 89–99; TEMP 36.4–36.9; O2SAT 92–98; Ht 160 cm; Wt 107.0 kg
[2017-04-26] MEDS: SODIUM CHLORIDE 0.65% NA SOLN 45 ML (OCEAN) NAE SCH ×3 (06:19→17:41)
[2017-04-26] MEDS: BUDESONIDE 0.25 MG/2 ML VIAL (PULMICORT) INH SCH ×2 (07:00→19:25)
[2017-04-26] MEDS: ALBUT/IPRATROP 3MG/0.5MG NEB 3 ML VIAL INH SCH ×4 (07:00→19:25)
[2017-04-26 07:01] LABS: HEMATOCRIT 35.3 % (37-47); MEAN CELL VOLUME 94.1 fL (80-100); MEAN CORPUSCULAR HEMOGLOBIN 28.3 pg (25-34); MEAN PLATELET VOLUME 10.9 fL (7.4-10.4); PLATELET COUNT 266 K/uL (130-400); RED BLOOD COUNT 3.75 M/uL (4.2-5.4); WHITE BLOOD COUNT 13.61 K/uL (4.8-10.8)
[2017-04-26] MEDS: METHYLPREDNISOLONE IV 60 MG in SYRINGE 0 ML IV SCH (07:24)
[2017-04-26] MEDS: BusPIRone 15 MG TAB PO SCH ×3 (07:24→20:48)
[2017-04-26] MEDS: FUROSEMIDE INJ 20 MG in SYRINGE 0 ML IV SCH (07:24)
[2017-04-26] MEDS: FLUTICASONE PROPIONATE NA SPR 16 GM BTL NAE SCH (07:25)
[2017-04-26] MEDS: PANTOprazole SOD 40 MG TAB PO SCH (07:35)
[2017-04-26] MEDS: LACTOBACILLUS ACIDOPHILUS (FLORANEX) TAB PO SCH ×3 (07:35→16:03)
[2017-04-26 07:36] LABS: BUN/CREATININE RATIO 29.1 (10-20); CREATININE 0.92 mg/dl (0.60-1.20); POTASSIUM 4.2 mmol/L (3.5-5.1)
[2017-04-26] MEDS: ASPIRIN 81 MG ECTAB PO SCH (07:36)
[2017-04-26] MEDS: AMIODARONE 200 MG TAB PO SCH (07:36)
[2017-04-26] MEDS: CHOLECALCIFEROL 1000 INTER.UNIT TAB PO SCH (07:37)
[2017-04-26] MEDS: ATORVASTATIN 40 MG TAB PO SCH (07:37)
[2017-04-26] MEDS: NEPHROCAPS PO SCH (07:37)
[2017-04-26] MEDS: FERROUS SULFATE 325 MG TAB PO SCH (07:37)
[2017-04-26] MEDS: VENLAFAXINE HCL XR 150 MG CAPXR PO SCH (07:38)
[2017-04-26] MEDS: VENLAFAXINE HCL XR 75 MG CAPXR PO SCH (07:38)
[2017-04-26] MEDS: POTASSIUM CHLORIDE 20 MEQ TABCR PO SCH (07:39)
[2017-04-26] MEDS: POLYETHYLENE (MIRALAX) 17 GM PACK PO SCH (07:58)
[2017-04-26] MEDS: INSULIN ASPART 100 UNITS/ML 3 ML PEN SC SCH ×4 (08:01→20:57)
--- NOTE | 2017-04-26 09:59 | Family Medicine Progress Note ---
Progress Note Date of Service Apr 26, 2017. Subjective Pt evaluation today including: conversation w/ patient, physical exam, chart review, lab review, review of inpatient medication list Pain: No pain reported PO Intake: Tolerating PO intake Voiding: no voiding problems Ms. Church reports she feels about the same as yesterday. She feels that she is almost back at baseline. She remains with the shortness of breath that is worse on exertion and cough, productive of sputum, but no blood, and reports she has pain in the right side of her back with coughing and taking a deep breath in. She states the pain is not too severe and she does not want any medications for it at the current time. Constitutional: No fever, No chills Respiratory: + cough, + sputum, + shortness of breath, + dyspnea on exertion , No wheezing Cardiovascular: No chest pain, No edema Abdomen: No pain, No nausea, No vomiting, No diarrhea All Other Systems: Reviewed and Negative Medications Current Inpatient Medications Medications (Trade) Dose Ordered Sig/Buddy Route Start Time Stop Time Status Last Admin Dose Admin Acetaminophen (Tylenol Tab) 650 mg Q4H PRN PO 04/24/17 19:45 05/24/17 19:44 Al Hydrox/Mg Hydrox/Simethicone (Maalox Max Susp) 15 ml Q4H PRN PO 04/24/17 19:45 05/24/17 19:44 Magnesium Hydroxide (Milk Of Magnesia Susp) 30 ml Q12H PRN PO 04/24/17 19:45 05/24/17 19:44 Ondansetron HCl (Zofran Inj) 4 mg Q6H PRN IV 04/24/17 19:45 05/24/17 19:44 Polyethylene (Miralax Powder Packet) 17 gm DAILY PO 04/25/17 09:00 05/25/17 08:59 04/26/17 07:58 17 GM Methylprednisolone Sodium Succinate 60 mg/Syringe 0.96 ml @ 1.5 mls/min QID IV 04/24/17 21:00 05/24/17 20:59 04/26/17 07:24 1.5 MLS/MIN Azithromycin 250 mg/Dextrose 252.5 ml @ 125 mls/hr Q24H IV 04/25/17 18:00 05/02/17 17:59 04/25/17 17:32 125 MLS/HR Albuterol/ Ipratropium (Duoneb) 3 ml QIDR INH 04/25/17 08:00 05/25/17 07:59 04/26/17 07:00 3 ML Ceftriaxone Sodium 1 gm/ Dextrose 50 ml @ 100 mls/hr Q24H IV 04/24/17 21:00 05/01/17 20:59 04/25/17 20:56 100 MLS/HR Aspirin (Ecotrin Tab) 81 mg DAILY PO 04/25/17 09:00 05/25/17 08:59 04/26/17 07:36 81 MG Atorvastatin Calcium (Lipitor Tab) 80 mg DAILY PO 04/25/17 09:00 05/25/17 08:59 04/26/17 07:37 80 MG Budesonide (Pulmicort Respules 0.25MG/ 2ML Neb Soln) 0.25 mg BIDR INH 04/25/17 08:00 05/25/17 07:59 04/26/17 07:00 0.25 MG Buspirone HCl (BusPAR TAB) 15 mg TID PO 04/24/17 21:00 05/24/17 20:59 04/26/17 07:24 15 MG Multi-Ingredient Ointment (Eucerin Unscented Cr) 1 appln BID PRN EXT 04/24/17 19:45 05/24/17 19:44 Fluticasone Propionate (Flonase Nasal [place]) 2 sprays DAILY BUTCH 04/25/17 09:00 05/25/17 08:59 04/26/17 07:25 2 SPRAYS Folic Acid (Folvite Tab) 1 mg DAILY PO 04/25/17 09:00 05/25/17 08:59 04/26/17 07:38 1 MG Guaifenesin (Mucinex Contr Rel Tab) 1,200 mg Q12 PRN PO 04/24/17 19:45 05/24/17 19:44 Lactobacillus Acidophilus (Floranex Tab) 1 tab TIDM PO 04/25/17 07:30 05/25/17 07:59 04/26/17 07:35 1 TAB Pantoprazole Sodium (Protonix Tab) 40 mg DAILY PO 04/25/17 09:00 05/25/17 08:59 04/26/17 07:35 40 MG Pramipexole Dihydrochloride (miraPEX TAB) 0.5 mg HS PO 04/24/17 21:00 05/24/17 20:59 04/25/17 21:00 0.5 MG Sodium Chloride ([place] Nasal [place]) 2 sprays Q6HWA BUTCH 04/25/17 00:00 05/25/17 00:00 04/26/17 06:19 2 SPRAYS Trazodone HCl (Desyrel Tab) 200 mg HS PO 04/24/17 21:00 05/24/17 20:59 04/25/17 21:00 200 MG Venlafaxine HCl (effeXOR EXTENDED REL CAP) 75 mg DAILY PO 04/25/17 09:00 05/25/17 08:59 04/26/17 07:38 75 MG Venlafaxine HCl (effeXOR EXTENDED REL CAP) 150 mg DAILY PO 04/25/17 09:00 05/25/17 08:59 04/26/17 07:38 150 MG Vitamin B Complex/ Vit C/Folic Acid (Nephrocaps) 1 cap DAILY PO 04/25/17 09:00 05/25/17 08:59 04/26/17 07:37 1 CAP Amiodarone HCl (Cordarone Tab) 100 mg DAILY PO 04/25/17 09:00 05/25/17 08:59 04/26/17 07:36 100 MG Cholecalciferol (Vitamin D Tab) 2,000 inter.unit DAILY PO 04/25/17 09:00 05/25/17 08:59 04/26/17 07:37 2,000 INTER.UNIT Ferrous Sulfate (Feosol Tab) 325 mg DAILY PO 04/25/17 09:00 05/25/17 08:59 04/26/17 07:37 325 MG Miscellaneous Information (Order Awaiting Action) 1 ea QS N/A 04/24/17 20:30 05/24/17 20:29 Polyethylene (Miralax Powder Packet) 17 gm DAILY PRN PO 04/24/17 19:45 05/24/17 19:44 Miscellaneous Information (Order Awaiting Action) 1 ea QS N/A 04/24/17 20:30 05/24/17 20:29 Furosemide 20 mg/ Syringe 2 ml @ 4 mls/min QAM IV 04/25/17 09:00 05/25/17 08:59 04/26/17 07:24 4 MLS/MIN Potassium Chloride (Klor-Con Tab) 20 meq QAM PO 04/25/17 09:00 05/25/17 08:59 04/26/17 07:39 20 MEQ Insulin Aspart (novoLOG ASPART) SLIDING SCALE If C... ACHS SC 04/25/17 11:00 05/25/17 10:59 04/26/17 08:01 12 UNITS Glucose (Glucose 40% Gel) 15-30 GRAMS 15 GRAMS... UD PRN PO 04/25/17 08:15 05/25/17 08:14 Glucose (Glucose Chew Tab) 4-8 Tablets 4 Tabl... UD PRN PO 04/25/17 08:15 05/25/17 08:14 Dextrose (Dextrose 50% 50ML Syringe) 25-50ML OF 50% DW IV FOR... UD PRN IV 04/25/17 08:15 05/25/17 08:14 Glucagon (Glucagon Inj) 1 mg UD PRN SQ 04/25/17 08:15 05/25/17 08:14 Objective Vital Signs Date Time Temp Pulse Resp B/P (MAP) Pulse Ox O2 Delivery O2 Flow Rate FiO2 04/26/17 09:10 Nasal Cannula 4.0 04/26/17 07:40 36.7 93 18 144/70 (94) 98 4.0 04/26/17 07:01 95 18 97 Nasal Cannula 4.0 04/26/17 04:00 Nasal Cannula 4.0 04/26/17 03:23 36.7 99 20 128/69 (88) 98 Nasal Cannula 6.0 04/26/17 00:00 Nasal Cannula 4.0 04/25/17 23:25 36.6 94 20 130/62 (84) 96 Nasal Cannula 6.0 04/25/17 19:30 36.8 101 22 150/75 (100) 99 Nasal Cannula 4.0 04/25/17 19:30 95 Nasal Cannula 4.0 30 04/25/17 18:46 97 18 99 Nasal Cannula 4.0 04/25/17 16:00 95 Nasal Cannula 4.0 30 04/25/17 15:32 37.0 100 20 154/73 (100) 94 Nasal Cannula 2.0 04/25/17 15:27 90 18 96 Nasal Cannula 4.0 04/25/17 12:00 94 Nasal Cannula 4.0 30 04/25/17 11:24 37.0 96 18 167/83 (111) 96 4.0 04/25/17 11:19 94 18 97 Nasal Cannula 4.0 Physical Exam General Appearance: WD/WN, no apparent distress, + pertinent finding ( tenderness along right ribs, no tenderness along spinous processes) Respiratory/Chest: chest non-tender, no respiratory distress, no accessory muscle use, + decreased breath sounds, + pertinent finding (coarse breath sounds ) Cardiovascular: no edema, no gallop, no JVD, no murmur Abdomen: normal bowel sounds, non tender, soft, no organomegaly, no pulsatile mass Laboratory Results Last 24 Hours Test 04/25/17 11:12 04/25/17 14:22 04/25/17 15:25 04/25/17 15:50 Bedside Glucose 379 mg/dl 312 mg/dl Troponin I < 0.015 ng/ml Arterial Blood pH 7.38 Arterial Blood Partial Pressure CO2 65 mmHg Arterial Blood Partial Pressure O2 80 mm/Hg Arterial Blood HCO3 37 mmol/L Arterial Blood Oxygen Saturation 94.0 % Arterial Blood Base Excess 9.8 mEq/L Arterial Blood Gas Delivery 4 L Red Test POS Test 04/25/17 20:00 04/25/17 20:02 04/26/17 00:21 04/26/17 06:19 Bedside Glucose 409 mg/dl 389 mg/dl 254 mg/dl White Blood Count 13.61 K/uL Red Blood Count 3.75 M/uL Hemoglobin 10.6 g/dL Hematocrit 35.3 % Mean Corpuscular Volume 94.1 fL Mean Corpuscular Hemoglobin 28.3 pg Mean Corpuscular Hemoglobin Concent 30.0 g/dl RDW Standard Deviation 47.8 fL RDW Coefficient of Variation 13.9 % Platelet Count 266 K/uL Mean Platelet Volume 10.9 fL Sodium Level 137 mmol/L Potassium Level 4.2 mmol/L Chloride Level 96 mmol/L Carbon Dioxide Level 37 mmol/L Anion Gap 4.0 mmol/L Blood Urea Nitrogen 27 mg/dl Creatinine 0.92 mg/dl Est Creatinine Clear Calc Drug Dose 62.1 ml/min Estimated GFR () 70.6 Estimated GFR (Non- 60.9 BUN/Creatinine Ratio 29.1 Random Glucose 249 mg/dl Calcium Level 9.0 mg/dl Test 04/26/17 06:42 Bedside Glucose 254 mg/dl Assessment and Plan Ms. 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 Acute on chronic hypoxic respiratory failure in presence of severe COPD - Currently on O2, satting at 92% on 4L - Concern for bacterial source with productive sputum - continue Rocephin and Azithromycin - EMT BASIC eval done. No sign of aspiration noted. Recommendation - -.slippery regular diet - barium swallow/VFSS combination tomorrow - decrease Methylprednisone from 60 mg qid to 40mg qid - Continue Budesonide bid, Breo daily and Incruse Ellipta daily - Continue duoneb qid and mucinex prn - she will likely need BiPAP on discharge. Obtained overnight pulse ox and will do ABG tomorrow morning Acute on chronic diastolic CHF - In total, she received 60mg IV Lasix during this admission - does not appear volume overloaded at the current time, will monitor - last echo was August 2016: * The left ventricle is hyperdynamic. * No regional wall motion abnormalities noted. * Ejection Fraction = >70 %. * There is mild concentric left ventricular hypertrophy. * Grade I diastolic dysfunction, (abnormal relaxation pattern). * There is mild tricuspid regurgitation - I&O and daily weight - BNP 597 Afib with RVR on admission - back in NSR - troponins and EKG negative for ischemic changes - was in afib on admission, but has been in sinus with PACs and PVCs since - continue Amiodarone 100 mg daily Right sided back pain - likely MSK secondary to coughing - will monitor Hypokalemia - Administered 40 meq of PO KCL prior to lasix administration - K was 4.2 today, will continue to monitor Hyperlipidemia/ homocysteinemia / h/o CVA - continue ASA 81 mg - continue Lipitor 80 mg daily H/o GI bleed - continue Protonix 40 mg daily Anxiety - continue Effexor 75 and 150 mg daily, Trazodone 200 mg HS DMII - BSG AC hs while on steroids - sugar levels have been high, over 300 and reaching 400 once - glycemic regimen modified: - IV Insulin 10 units once now - Lantus changed to 20 units BID - Goal range 110 to 140 - CF 15, Carb ratio 5 DVT Prophylaxis: SCDs Code: Full Disposition: remains on telemetry Resident Tracking Resident Involvement: Resident Care Provided Care Provided: Adult Hospital Medicine Reviewed: Pt Seen/Exam by Me History reports some cough. breathing getting back to baseline Constitutional: denies: fever Respiratory: negative: short of breath Cardiovascular: denies chest pain General Appearance: no apparent distress (sitting in chair) Respiratory: no respiratory distress, rhonchi Cardiovascular: regular rate, rhythm Neurologic/Psychiatric: alert, oriented x 3 Skin Characteristics: warm/dry Assessment/Plan Resident Physician Supervision Note: I independently interviewed and examined the patient and verified the goyal history and physical, reviewed labs and image studies, discussed the case with the resident Dr. Franco and agree with the findings and care plan.
[2017-04-26] MEDS: METHYLPREDNISOLONE IV 40 MG in SYRINGE 0 ML IV SCH ×3 (13:36→20:47)
[2017-04-26] MEDS ORDERED: INSULIN HUMAN REGULAR PER UNIT 10 UNITS in SYRINGE 0 ML IV STA (14:43)
--- NOTE | 2017-04-26 14:49 | Progress Note ---
Progress Note Date of Service Apr 26, 2017. Progress Note Discussed glycemic control w/pharmacist Overall change: - IV Insulin 10 units once now - Lantus changed to 20 units BID - Goal range 110 to 140 - CF 15, Carb ratio 5
[2017-04-26] MEDS ORDERED: INSULIN HUMAN REGULAR IV BOLUS 10 UNIT in SYRINGE 0 ML IV SCH (15:15)
[2017-04-26] MEDS: AZITHROMYCIN IV 250 MG in DEXTROSE 5% 250ML 250 ML IV SCH (17:38)
[2017-04-26] MEDS: PRAMIPEXOLE DIHYDROCHLORIDE 0.5 MG TAB PO SCH (20:47)
[2017-04-26] MEDS: CEFTRIAXONE SOD INJ 1 GM in DEXTROSE 5% ADD-VANTAGE 50ML 50 ML IV SCH (20:47)
[2017-04-26] MEDS: TRAZODONE HCL 100 MG TAB PO SCH (20:48)
[2017-04-26] MEDS: INSULIN GLARGINE SOLOSTAR 100 UNITS/ML 3 ML PEN SC SCH (20:57)
[2017-04-26] MEDS ORDERED: INSULIN GLARGINE SOLOSTAR 100 UNITS/ML 3 ML PEN SC SCH (21:00)
[2017-04-27] VITALS (13 sets, daily range): BP systolic 140–169; BP diastolic 64–83; PULSE 84–108; TEMP 36.4–36.9; O2SAT 92–100
[2017-04-27] MEDS ORDERED: ALBUT/IPRATROP 3MG/0.5MG NEB 3 ML VIAL INH PRN (03:30)
[2017-04-27] MEDS: ALBUT/IPRATROP 3MG/0.5MG NEB 3 ML VIAL INH SCH ×5 (03:31→19:23)
[2017-04-27] MEDS: SODIUM CHLORIDE 0.65% NA SOLN 45 ML (OCEAN) NAE SCH ×4 (06:00→16:51)
[2017-04-27] MEDS: BUDESONIDE 0.25 MG/2 ML VIAL (PULMICORT) INH SCH ×2 (07:05→19:23)
[2017-04-27 07:07] LABS: HEMATOCRIT 36.3 % (37-47); MEAN CELL VOLUME 95.3 fL (80-100); MEAN CORPUSCULAR HEMOGLOBIN 27.8 pg (25-34); MEAN CORPUSCULAR HGB CONC 29.2 g/dl (32-36); MEAN PLATELET VOLUME 10.7 fL (7.4-10.4); PLATELET COUNT 271 K/uL (130-400); RED BLOOD COUNT 3.81 M/uL (4.2-5.4); WHITE BLOOD COUNT 11.48 K/uL (4.8-10.8)
[2017-04-27 07:09] LABS: ARTERIAL BLD GAS O2 SATURATION 96.6 % (90-95); ARTERIAL BLOOD GAS BASE EXCESS 12.1 mEq/L (-9-1.8); ARTERIAL BLOOD GAS HCO3 40 mmol/L (19-24); ARTERIAL BLOOD GAS PO2 96 mm/Hg (80-95); ARTERIAL BLOOD GAS pH 7.37 (7.35-7.45)
[2017-04-27 07:10] LABS: ALLEN TEST POS (POS); O2 ADMINISTRATION 4L
[2017-04-27] MEDS: LACTOBACILLUS ACIDOPHILUS (FLORANEX) TAB PO SCH ×3 (07:30→16:50)
[2017-04-27] MEDS: FLUTICASONE PROPIONATE NA SPR 16 GM BTL NAE SCH (08:19)
[2017-04-27] MEDS: METHYLPREDNISOLONE IV 40 MG in SYRINGE 0 ML IV SCH ×4 (08:19→21:37)
[2017-04-27] MEDS: UMECLIDINIUM BROMIDE 62.5MCG/INH INH SCH (08:19)
[2017-04-27] MEDS: FLUTICASONE FUROATE-VILANTEROL 200/25 MCG INH INH SCH (08:19)
[2017-04-27] MEDS: PANTOprazole SOD 40 MG TAB PO SCH (08:20)
[2017-04-27] MEDS: POTASSIUM CHLORIDE 20 MEQ TABCR PO SCH (08:20)
[2017-04-27] MEDS: NEPHROCAPS PO SCH (08:20)
[2017-04-27] MEDS: CHOLECALCIFEROL 1000 INTER.UNIT TAB PO SCH (08:20)
[2017-04-27] MEDS: FUROSEMIDE INJ 20 MG in SYRINGE 0 ML IV SCH (08:20)
[2017-04-27] MEDS: AMIODARONE 200 MG TAB PO SCH (08:21)
[2017-04-27] MEDS: ATORVASTATIN 40 MG TAB PO SCH (08:21)
[2017-04-27] MEDS: ASPIRIN 81 MG ECTAB PO SCH (08:21)
[2017-04-27] MEDS: VENLAFAXINE HCL XR 75 MG CAPXR PO SCH (08:21)
[2017-04-27] MEDS: FERROUS SULFATE 325 MG TAB PO SCH (08:21)
[2017-04-27] MEDS: VENLAFAXINE HCL XR 150 MG CAPXR PO SCH (08:21)
[2017-04-27] MEDS: BusPIRone 15 MG TAB PO SCH ×3 (08:22→21:37)
[2017-04-27] MEDS: INSULIN ASPART 100 UNITS/ML 3 ML PEN SC SCH ×4 (08:24→21:40)
[2017-04-27] MEDS: INSULIN GLARGINE SOLOSTAR 100 UNITS/ML 3 ML PEN SC SCH ×2 (08:25→21:41)
[2017-04-27] MEDS: POLYETHYLENE (MIRALAX) 17 GM PACK PO SCH (08:41)
--- NOTE | 2017-04-27 13:41 | DIAGNOSTIC IMAGING REPORT ---
(BARIUM SWALLOW) ESOPHAGUS CLINICAL HISTORY: 77 years-old Female presenting with solid food dysphagia; please schedule per order. TECHNIQUE: A standard air contrast barium esophagram is performed. Multiple spot images of the esophagus are acquired both upright and prone. COMPARISON: CT from 10/18/2014 and prior swallow study from 04/25/2014. FINDINGS: The patient was able to ingest barium and the barium pill without difficulty. Normal mucosal pattern. No evidence of intrinsic or extrinsic mass lesion. No aspiration observed. Poor clearance from the esophagus noted suggesting dysmotility. The gastroesophageal junction distended normally. No gastroesophageal reflux observed. Fluoroscopy dosage (mGy): Not available. Fluoroscopy time: 1.8 minutes. Number of fluoroscopic spot images: 24. 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 Otherwise normal fluoroscopic evaluation of the esophagus. Electronically signed by: Eddie Waters M.D. 04/27/2017 1:39 PM Dictated Date/Time: 04/27/2017 1:37 PM
--- NOTE | 2017-04-27 14:15 | Family Medicine Progress Note ---
Progress Note Date of Service Apr 27, 2017. Subjective Pt evaluation today including: conversation w/ patient, physical exam, chart review, lab review, review of inpatient medication list Pain: No pain reported PO Intake: Tolerating PO intake Voiding: no voiding problems Ms. Church reports she feels about the same today as yesterday. She states her breathing is not quite back at baseline as she still gets quite short of breath, even when walking a few feet to the bathroom, which is not normal for her. Her coughing remains the same, productive of sputum. Today, she also reports lower throat pain upon swallowing. She denies chest pain, fever, chills. Constitutional: No fever, No chills ENT: + sore throat Respiratory: + cough, + sputum, + dyspnea on exertion, No wheezing Cardiovascular: No chest pain, No edema Abdomen: No pain, No nausea, No vomiting, No diarrhea, No constipation All Other Systems: Reviewed and Negative Medications Current Inpatient Medications Medications (Trade) Dose Ordered Sig/Buddy Route Start Time Stop Time Status Last Admin Dose Admin Acetaminophen (Tylenol Tab) 650 mg Q4H PRN PO 04/24/17 19:45 05/24/17 19:44 Al Hydrox/Mg Hydrox/Simethicone (Maalox Max Susp) 15 ml Q4H PRN PO 04/24/17 19:45 05/24/17 19:44 Magnesium Hydroxide (Milk Of Magnesia Susp) 30 ml Q12H PRN PO 04/24/17 19:45 05/24/17 19:44 Ondansetron HCl (Zofran Inj) 4 mg Q6H PRN IV 04/24/17 19:45 05/24/17 19:44 Polyethylene (Miralax Powder Packet) 17 gm DAILY PO 04/25/17 09:00 05/25/17 08:59 04/26/17 07:58 17 GM Azithromycin 250 mg/Dextrose 252.5 ml @ 125 mls/hr Q24H IV 04/25/17 18:00 05/02/17 17:59 04/26/17 17:38 125 MLS/HR Albuterol/ Ipratropium (Duoneb) 3 ml QIDR INH 04/25/17 08:00 05/25/17 07:59 04/27/17 07:05 3 ML Ceftriaxone Sodium 1 gm/ Dextrose 50 ml @ 100 mls/hr Q24H IV 04/24/17 21:00 05/01/17 20:59 04/26/17 20:47 100 MLS/HR Aspirin (Ecotrin Tab) 81 mg DAILY PO 04/25/17 09:00 05/25/17 08:59 04/27/17 08:21 81 MG Atorvastatin Calcium (Lipitor Tab) 80 mg DAILY PO 04/25/17 09:00 05/25/17 08:59 04/27/17 08:21 80 MG Budesonide (Pulmicort Respules 0.25MG/ 2ML Neb Soln) 0.25 mg BIDR INH 04/25/17 08:00 05/25/17 07:59 04/27/17 07:05 0.25 MG Buspirone HCl (BusPAR TAB) 15 mg TID PO 04/24/17 21:00 05/24/17 20:59 04/27/17 08:22 15 MG Multi-Ingredient Ointment (Eucerin Unscented Cr) 1 appln BID PRN EXT 04/24/17 19:45 05/24/17 19:44 Fluticasone Propionate (Flonase Nasal [place]) 2 sprays DAILY BUTCH 04/25/17 09:00 05/25/17 08:59 04/27/17 08:19 2 SPRAYS Folic Acid (Folvite Tab) 1 mg DAILY PO 04/25/17 09:00 05/25/17 08:59 04/27/17 08:20 1 MG Guaifenesin (Mucinex Contr Rel Tab) 1,200 mg Q12 PRN PO 04/24/17 19:45 05/24/17 19:44 Lactobacillus Acidophilus (Floranex Tab) 1 tab TIDM PO 04/25/17 07:30 05/25/17 07:59 04/26/17 16:03 1 TAB Pantoprazole Sodium (Protonix Tab) 40 mg DAILY PO 04/25/17 09:00 05/25/17 08:59 04/27/17 08:20 40 MG Pramipexole Dihydrochloride (miraPEX TAB) 0.5 mg HS PO 04/24/17 21:00 05/24/17 20:59 04/26/17 20:47 0.5 MG Sodium Chloride ([place] Nasal [place]) 2 sprays Q6HWA BUTCH 04/25/17 00:00 05/25/17 00:00 04/26/17 17:41 2 SPRAYS Trazodone HCl (Desyrel Tab) 200 mg HS PO 04/24/17 21:00 05/24/17 20:59 04/26/17 20:48 200 MG Venlafaxine HCl (effeXOR EXTENDED REL CAP) 75 mg DAILY PO 04/25/17 09:00 05/25/17 08:59 04/27/17 08:21 75 MG Venlafaxine HCl (effeXOR EXTENDED REL CAP) 150 mg DAILY PO 04/25/17 09:00 05/25/17 08:59 04/27/17 08:21 150 MG Vitamin B Complex/ Vit C/Folic Acid (Nephrocaps) 1 cap DAILY PO 04/25/17 09:00 05/25/17 08:59 04/27/17 08:20 1 CAP Amiodarone HCl (Cordarone Tab) 100 mg DAILY PO 04/25/17 09:00 05/25/17 08:59 04/27/17 08:21 100 MG Cholecalciferol (Vitamin D Tab) 2,000 inter.unit DAILY PO 04/25/17 09:00 05/25/17 08:59 04/27/17 08:20 2,000 INTER.UNIT Ferrous Sulfate (Feosol Tab) 325 mg DAILY PO 04/25/17 09:00 05/25/17 08:59 04/27/17 08:21 325 MG Polyethylene (Miralax Powder Packet) 17 gm DAILY PRN PO 04/24/17 19:45 05/24/17 19:44 Furosemide 20 mg/ Syringe 2 ml @ 4 mls/min QAM IV 04/25/17 09:00 05/25/17 08:59 04/27/17 08:20 4 MLS/MIN Potassium Chloride (Klor-Con Tab) 20 meq QAM PO 04/25/17 09:00 05/25/17 08:59 04/27/17 08:20 20 MEQ Insulin Aspart (novoLOG ASPART) SLIDING SCALE If C... ACHS SC 04/25/17 11:00 05/25/17 10:59 04/27/17 08:24 7 UNITS Glucose (Glucose 40% Gel) 15-30 GRAMS 15 GRAMS... UD PRN PO 04/25/17 08:15 05/25/17 08:14 Glucose (Glucose Chew Tab) 4-8 Tablets 4 Tabl... UD PRN PO 04/25/17 08:15 05/25/17 08:14 Dextrose (Dextrose 50% 50ML Syringe) 25-50ML OF 50% DW IV FOR... UD PRN IV 04/25/17 08:15 05/25/17 08:14 Glucagon (Glucagon Inj) 1 mg UD PRN SQ 04/25/17 08:15 05/25/17 08:14 Methylprednisolone Sodium Succinate 40 mg/Syringe 0.64 ml @ 1.5 mls/min QID IV 04/26/17 13:00 05/26/17 12:59 04/27/17 08:19 1.5 MLS/MIN Fluticasone/ Vilanterol (Breo Ellipta 200-25 Mcg/Inh) 1 inha DAILY INH 04/27/17 09:00 05/27/17 08:59 04/27/17 08:19 1 INHA Insulin Glargine (Lantus Solostar Pen) 20 units BID SC 04/26/17 21:00 05/26/17 20:59 04/27/17 08:25 20 UNITS Albuterol/ Ipratropium (Duoneb) 3 ml Q2H PRN INH 04/27/17 03:30 05/27/17 03:29 Objective Vital Signs Date Time Temp Pulse Resp B/P (MAP) Pulse Ox O2 Delivery O2 Flow Rate FiO2 04/27/17 07:39 36.9 99 18 145/73 (97) 99 Room Air 04/27/17 07:05 94 16 96 Nasal Cannula 4.0 04/27/17 04:55 36.5 20 04/27/17 04:00 Nasal Cannula 4.0 04/27/17 03:35 92 151/82 (105) 98 Nasal Cannula 4.0 04/27/17 03:31 84 16 98 Nasal Cannula 4.0 04/27/17 00:00 36.6 88 22 148/83 (104) 96 Room Air 04/27/17 00:00 Nasal Cannula 4.0 04/26/17 20:00 Nasal Cannula 4.0 04/26/17 19:28 92 16 98 Nasal Cannula 4.0 04/26/17 19:11 36.4 97 22 130/73 (92) 97 Nasal Cannula 4.0 04/26/17 16:08 36.5 97 20 163/90 (114) 92 Nasal Cannula 4.0 04/26/17 16:00 Nasal Cannula 4.0 04/26/17 15:26 91 18 96 Nasal Cannula 4.0 04/26/17 12:00 Nasal Cannula 4.0 04/26/17 11:26 36.9 97 18 145/79 (101) 98 4.0 04/26/17 11:25 89 18 98 Nasal Cannula 3.0 Physical Exam General Appearance: WD/WN, no apparent distress ENT: pharynx normal (no erythema, no pus) Respiratory/Chest: chest non-tender, no respiratory distress, no accessory muscle use, + decreased breath sounds, + pertinent finding (coarse breath sounds bilaterally) Cardiovascular: regular rate, rhythm, no edema, no gallop, no JVD, no murmur Abdomen: normal bowel sounds, non tender, soft, no organomegaly, no pulsatile mass Laboratory Results Last 24 Hours Test 04/26/17 11:15 04/26/17 15:47 04/26/17 20:05 04/27/17 06:42 Bedside Glucose 355 mg/dl 253 mg/dl 307 mg/dl White Blood Count 11.48 K/uL Red Blood Count 3.81 M/uL Hemoglobin 10.6 g/dL Hematocrit 36.3 % Mean Corpuscular Volume 95.3 fL Mean Corpuscular Hemoglobin 27.8 pg Mean Corpuscular Hemoglobin Concent 29.2 g/dl RDW Standard Deviation 49.0 fL RDW Coefficient of Variation 14.2 % Platelet Count 271 K/uL Mean Platelet Volume 10.7 fL Arterial Blood pH 7.37 Arterial Blood Partial Pressure CO2 70 mmHg Arterial Blood Partial Pressure O2 96 mm/Hg Arterial Blood HCO3 40 mmol/L Arterial Blood Oxygen Saturation 96.6 % Arterial Blood Base Excess 12.1 mEq/L Arterial Blood Gas Delivery 4L Red Test POS Test 04/27/17 06:51 Bedside Glucose 238 mg/dl Assessment and Plan Ms. 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 Acute on chronic hypoxic respiratory failure in presence of severe COPD - Currently on O2, satting at 98% on 4L (home dose) - No qualified for bipap at home. Will need to have sleep study as outpatient. - sputum culture grew moraxella catarrhalis - continue Rocephin - d/c azithromycin - transition to cefdinir on discharge - continue Methylprednisone 40mg qid - Continue Budesonide bid, Breo daily and Incruse Ellipta daily - Continue duoneb qid and mucinex prn - she will require Bipap on d/c Dysphagia - [employer] eval done. No sign of aspiration noted. Recommendation -.slippery regular diet - swallow study showed esophageal dysmotility, possibly presbyesophagus - consult GI Acute on chronic diastolic CHF - In total, she received 60mg IV Lasix during this admission - does not appear volume overloaded at the current time, will monitor - last echo was August 2016: * The left ventricle is hyperdynamic. * No regional wall motion abnormalities noted. * Ejection Fraction = >70 %. * There is mild concentric left ventricular hypertrophy. * Grade I diastolic dysfunction, (abnormal relaxation pattern). * There is mild tricuspid regurgitation - I&O and daily weight - BNP 597 Afib with RVR on admission - back in NSR - troponins and EKG negative for ischemic changes - was in afib on admission, but has been in sinus with PACs and PVCs since - continue Amiodarone 100 mg daily Right sided back pain - likely MSK secondary to coughing - will monitor - no complaints today Hypokalemia - Administered 40 meq of PO KCL prior to lasix administration - K 4.2, resolved Hyperlipidemia/ homocysteinemia / h/o CVA - continue ASA 81 mg - continue Lipitor 80 mg daily H/o GI bleed - continue Protonix 40 mg daily Anxiety - continue Effexor 75 and 150 mg daily, Trazodone 200 mg HS DMII - BSG AC hs while on steroids - glycemic regimen modified yesterday: - IV Insulin 10 units once now - Lantus changed to 20 units BID - Goal range 110 to 140 - CF 15, Carb ratio 5 - sugars have been better controlled today, in the 200s DVT Prophylaxis: SCDs Code: Full Disposition: remains on telemetry, hopefully d/c tomorrow Resident Tracking Resident Involvement: Resident Care Provided Care Provided: Adult Hospital Medicine Reviewed: Pt Seen/Exam by Me History getting short of breath with walking otherwise feels at baseline cough with phlegm. Constitutional: denies: fever Respiratory: negative: short of breath Cardiovascular: denies chest pain General Appearance: no apparent distress Respiratory: no respiratory distress, decreased breath sounds Cardiovascular: regular rate, rhythm Neurologic/Psychiatric: alert, oriented x 3 Skin Characteristics: warm/dry Assessment/Plan Resident Physician Supervision Note: I independently interviewed and examined the patient and verified the goyal history and physical, reviewed labs and image studies, discussed the case with the resident Dr. Franco and agree with the findings and care plan.
--- NOTE | 2017-04-27 16:23 | Gastrointestinal Consultation ---
Gastrointestinal Consultation Date of Consultation: Apr 27, 2017 Attending Physician: Dr. Botello Consulting Physician: Rita Cox PA-C Reason for Consultation: Esophageal Dysmotility History of Present Illness Patient is a 77 year old female with a past medical history of CHF, Afib, Back pain, anxiety, & diabetes mellitus 2 who is presently hospitalized with an acute exacerbation of diastolic CHF & afib with RVR. GI has been asked to evaluate her dysphagia. The patient reports that her swallowing has progressively become an issue. She reports that she will choke on foods on occasion and will also choke on her saliva from time to time. In October 2016, she underwent an EGD that was unremarkable. She was evaluated by [facility] [facility] & had a barium swallow while hospitalized during this admission. Findings were concerning for presbyesophagus. She is taking a PPI since admission to the hospital, but reports she does not take one as an outpatient. She denies melena. She denies heartburn or reflux. She denies significant NSAID use. She offers no further GI complaints at present. She reports her father struggled with GERD for many years. Past Medical/Surgical History Medical Problems: (1) Acute on chronic respiratory failure with hypoxia and hypercapnia Status: Acute (2) Anemia Status: Acute (3) Anemia Status: Acute (4) Anemia Status: Acute (5) Bronchitis Status: Acute (6) COPD with exacerbation Status: Acute (7) GI bleed Status: Acute (8) GI bleed Status: Acute (9) Hypokalemia Status: Acute (10) Respiratory failure Status: Acute (11) Sepsis Status: Acute (12) SOB (shortness of breath) Status: Acute Past Medical History: CHF, Afrib, Back pain, anxiety, DM2 Past Surgical History: None pertinent Family History Diabetes mellitus FH: cancer (lymphoma, breast cancer) Hypertension Social History Smoking Status: Former Smoker Alcohol Use: none Drug Use: none Marital Status: Housing Status: lives with family Occupation Status: retired Allergies Coded Allergies: Mushroom (Verified Allergy, Unknown, 04/24/17) Theophyllines (Verified Allergy, Unknown, Unknown, 04/24/17) Reported by daughter and [facility]. Codeine (Verified Adverse Reaction, Severe, HYPERVENTILATES, 04/24/17) Morphine (Verified Adverse Reaction, Severe, Causes Afib, 04/24/17) Current Medications Home Meds and Scripts Medications Dose Route/Sig Max Daily Dose Days Date Category Dose Instructions Nephrocaps (Vitamin B Complex/Vit C/Folic Acid) Cap 1 Cap PO DAILY 04/24/17 Reported Vitamin E (Vitamin E (Topical)) 1,000 Unit Cre 1,000 Units PO DAILY 04/24/17 Reported Pramipexole Dihydrochlori (Pramipexole Dihydrochloride) 0.5 Mg Tab 0.5 Mg PO HS 04/24/17 Reported Incruse Ellipta (Umeclidinium [place]) 62.5 Mcg/Inh Inh 1 Puff INH DAILY 04/24/17 Reported Combivent Respimat (Ipratropium-Albuterol) 1 Aer Aer 1 Puffs INH QID PRN 04/24/17 Reported Pulmicort Respules 0.25MG/2ML (Budesonide (Inhalation)) 0.25 Mg/2 Ml Radha 0.25 Mg NEB BID 04/24/17 Reported Eucerin (Multi-Ingredient Ointment) Cre 1 Appln TOP BID PRN 12/17/16 Reported Amiodarone Hcl 100 Mg Tab 100 Mg PO DAILY 12/17/16 Reported Mucinex Ext Rel (Guaifenesin) 600 Mg Tab 1,200 Mg PO Q12 PRN 12/17/16 Reported Flonase Allergy Relief (Fluticasone Propionate (Nasal)) 50 Mcg/Act Spr 2 Sprays BUTCH DAILY 12/17/16 Reported Floranex (Lactobacillus) 1 Tab Tab 1 Tab PO TIDM 12/17/16 Reported Milk Of Magnesia (Magnesium Hydroxide) 30 Ml Susp 30 Ml PO Q12 PRN 12/17/16 Reported Miralax (Polyethylene Glycol 3350) 1 Pow Pow 17 Gm PO DAILY PRN 12/17/16 Reported [place] Nasal [place] (Saline) 0.65 % Spr 2 Sprays BUTCH Q6HWA 12/17/16 Reported Breo Ellipta (Fluticasone Furoate-Vilanterol) 1 Inh Inh 1 Puff INH DAILY 10/18/16 Reported Aspirin Ec (Aspirin) 81 Mg Tab 81 Mg PO DAILY 10/18/16 Reported Kp Ferrous Sulfate (Ferrous Sulfate) 325 Mg Tab 325 Mg PO DAILY 07/22/16 Reported Buspirone HCl 15 Mg Tab 15 Mg PO TID 10/18/14 Reported Pantoprazole Sodium (Pantoprazole) 40 Mg Tab 40 Mg PO DAILY 10/18/14 Reported Effexor Extended Rel (Venlafaxine Hcl) 75 Mg Capcr 75 Mg PO DAILY 10/18/14 Reported TAKE WITH 150 MG = 225MG TOTAL Effexor Extended Rel (Venlafaxine Hcl) 150 Mg Capcr 150 Mg PO DAILY 05/15/14 Reported TAKE WITH 75MG = 225 MG TOTAL Vitamin D (Cholecalciferol) 2,000 Unit Tab 2,000 Inter.unit PO DAILY 04/24/14 Reported Trazodone HCl 100 Mg Tab 200 Mg PO HS 04/24/14 Reported Lipitor (Atorvastatin Calcium) 80 Mg Tab 80 Mg PO DAILY 04/24/14 Reported Folvite (Folic Acid) 1 Mg Tab 1 Mg PO DAILY 12/08/11 Reported Review of Systems Constitutional: No fever, No chills Eyes: No problem reported Respiratory: No cough, No shortness of breath Cardiac: No chest pain Abdomen: + dysphagia, No pain, No nausea, No vomiting, No diarrhea, No constipation, No GI bleeding Musculoskeletal: + joint pain Neuro: No problem reported Psych: No problem reported Skin: No problem reported Physical Exam Date Time Temp Pulse Resp B/P (MAP) Pulse Ox O2 Delivery O2 Flow Rate FiO2 04/27/17 15:37 108 20 92 Nasal Cannula 4.0 04/27/17 12:00 Nasal Cannula 4.0 04/27/17 11:28 96 16 98 Nasal Cannula 4.0 04/27/17 11:12 36.4 97 20 169/81 (110) 94 4.0 04/27/17 08:00 Nasal Cannula 4.0 04/27/17 07:39 36.9 99 18 145/73 (97) 99 Nasal Cannula 4.0 04/27/17 07:05 94 16 96 Nasal Cannula 4.0 04/27/17 04:55 36.5 20 04/27/17 04:00 Nasal Cannula 4.0 04/27/17 03:35 92 151/82 (105) 98 Nasal Cannula 4.0 04/27/17 03:31 84 16 98 Nasal Cannula 4.0 04/27/17 00:00 36.6 88 22 148/83 (104) 96 Room Air 04/27/17 00:00 Nasal Cannula 4.0 04/26/17 20:00 Nasal Cannula 4.0 04/26/17 19:28 92 16 98 Nasal Cannula 4.0 04/26/17 19:11 36.4 97 22 130/73 (92) 97 Nasal Cannula 4.0 General Appearance: WD/WN, no apparent distress Eyes: normal inspection, PERRL Respiratory/Chest: lungs clear Cardiovascular: regular rate, rhythm Abdomen: normal bowel sounds, non tender, soft Extremities: non-tender Neurologic/Psych: alert, oriented x 3 Skin: normal color Laboratory Results Last 24 Hours Test 04/26/17 20:05 04/27/17 06:42 04/27/17 06:51 Bedside Glucose 307 mg/dl 238 mg/dl White Blood Count 11.48 K/uL Red Blood Count 3.81 M/uL Hemoglobin 10.6 g/dL Hematocrit 36.3 % Mean Corpuscular Volume 95.3 fL Mean Corpuscular Hemoglobin 27.8 pg Mean Corpuscular Hemoglobin Concent 29.2 g/dl RDW Standard Deviation 49.0 fL RDW Coefficient of Variation 14.2 % Platelet Count 271 K/uL Mean Platelet Volume 10.7 fL Arterial Blood pH 7.37 Arterial Blood Partial Pressure CO2 70 mmHg Arterial Blood Partial Pressure O2 96 mm/Hg Arterial Blood HCO3 40 mmol/L Arterial Blood Oxygen Saturation 96.6 % Arterial Blood Base Excess 12.1 mEq/L Arterial Blood Gas Delivery 4L Red Test POS Impression Patient is a 77 year old female with dysphagia and symptoms consistent with esophageal spasms. Barium swallow was suggestive of presbyesophagus & the Speech Pathology has evaluated and made dietary modifications as well. Plan 1) Discussed the nature of Presbyesophagus with the patient. Discussed that unfortunately there are not many treatment options for this complaint. 2) Recommend Protonix 40 mg daily. 3) Recommend 1-2 Peppermint Altoids prior to meals to help reduce the spasms. 4) Adhere to the dietary & safe swallow recommendations put forth by [employer]. 5) Discussed esophageal manometry studies, however patient in agreement that she might not tolerate the testing and it is unclear if it would offer any further value. Discussed Cardizem, however given her cardiac issues, it is unclear that this would be a safe option for her as well. Thank you for allowing us to participate in the care of this patient. If you should have any further questions or concerns, do not hesitate to contact us. Agree with MICHELA Hernandez as above Abd: Soft, NT, ND, +BS Discussed case with Patient's daughter Madiha, and described treatment plan as outlined above Recommend followup in our office as an outpatient for further evaluation and recommendations.
[2017-04-27] MEDS: CEFTRIAXONE SOD INJ 1 GM in DEXTROSE 5% ADD-VANTAGE 50ML 50 ML IV SCH (21:37)
[2017-04-27] MEDS: PRAMIPEXOLE DIHYDROCHLORIDE 0.5 MG TAB PO SCH (21:38)
[2017-04-27] MEDS: TRAZODONE HCL 100 MG TAB PO SCH (21:38)
[2017-04-28] VITALS (10 sets, daily range): BP systolic 135–162; BP diastolic 73–80; PULSE 94–109; TEMP 36.4–37.3; O2SAT 94–99
[2017-04-28] MEDS: SODIUM CHLORIDE 0.65% NA SOLN 45 ML (OCEAN) NAE SCH ×5 (00:48→20:19)
[2017-04-28 06:10] LABS: HEMATOCRIT 37.9 % (37-47); MEAN CELL VOLUME 95.2 fL (80-100); MEAN CORPUSCULAR HEMOGLOBIN 27.9 pg (25-34); MEAN CORPUSCULAR HGB CONC 29.3 g/dl (32-36); MEAN PLATELET VOLUME 10.7 fL (7.4-10.4); PLATELET COUNT 277 K/uL (130-400); RED BLOOD COUNT 3.98 M/uL (4.2-5.4); WHITE BLOOD COUNT 9.64 K/uL (4.8-10.8)
[2017-04-28] MEDS: BUDESONIDE 0.25 MG/2 ML VIAL (PULMICORT) INH SCH ×2 (07:04→19:42)
[2017-04-28] MEDS: ALBUT/IPRATROP 3MG/0.5MG NEB 3 ML VIAL INH SCH ×4 (07:04→19:42)
[2017-04-28] MEDS: FUROSEMIDE INJ 20 MG in SYRINGE 0 ML IV SCH (07:44)
[2017-04-28] MEDS: METHYLPREDNISOLONE IV 40 MG in SYRINGE 0 ML IV SCH ×4 (07:44→20:17)
[2017-04-28] MEDS: FLUTICASONE PROPIONATE NA SPR 16 GM BTL NAE SCH (07:44)
[2017-04-28] MEDS: NEPHROCAPS PO SCH (07:45)
[2017-04-28] MEDS: ASPIRIN 81 MG ECTAB PO SCH (07:45)
[2017-04-28] MEDS: AMIODARONE 200 MG TAB PO SCH (07:45)
[2017-04-28] MEDS: FERROUS SULFATE 325 MG TAB PO SCH (07:45)
[2017-04-28] MEDS: ATORVASTATIN 40 MG TAB PO SCH (07:45)
[2017-04-28] MEDS: CHOLECALCIFEROL 1000 INTER.UNIT TAB PO SCH (07:45)
[2017-04-28] MEDS: POTASSIUM CHLORIDE 20 MEQ TABCR PO SCH (07:46)
[2017-04-28] MEDS: BusPIRone 15 MG TAB PO SCH ×3 (07:46→22:11)
[2017-04-28] MEDS: VENLAFAXINE HCL XR 150 MG CAPXR PO SCH (07:46)
[2017-04-28] MEDS: VENLAFAXINE HCL XR 75 MG CAPXR PO SCH (07:46)
[2017-04-28] MEDS: PANTOprazole SOD 40 MG TAB PO SCH (07:46)
[2017-04-28] MEDS: LACTOBACILLUS ACIDOPHILUS (FLORANEX) TAB PO SCH ×3 (07:46→17:24)
[2017-04-28] MEDS: UMECLIDINIUM BROMIDE 62.5MCG/INH INH SCH (07:47)
[2017-04-28] MEDS: POLYETHYLENE (MIRALAX) 17 GM PACK PO SCH (07:47)
[2017-04-28] MEDS: FLUTICASONE FUROATE-VILANTEROL 200/25 MCG INH INH SCH (07:47)
[2017-04-28] MEDS: INSULIN ASPART 100 UNITS/ML 3 ML PEN SC SCH ×4 (08:20→20:21)
[2017-04-28] MEDS: INSULIN GLARGINE SOLOSTAR 100 UNITS/ML 3 ML PEN SC SCH ×2 (08:21→20:22)
--- NOTE | 2017-04-28 15:40 | Family Medicine Progress Note ---
Progress Note Date of Service Apr 28, 2017. Subjective Pt evaluation today including: conversation w/ patient, physical exam, chart review, lab review, review of inpatient medication list Pain: No pain reported PO Intake: Tolerating PO intake Voiding: no voiding problems Ms. Church reports she feels about the same as yesterday. She states her cough remains, and that she is still short of breath with exertion. She states she does not feel she is ready to be discharged home. She denies chest pain, nausea, vomiting, abdominal pain, and shortness of breath at rest. Constitutional: No fever, No chills Respiratory: + cough, + sputum, + dyspnea on exertion, No wheezing, No shortness of breath Cardiovascular: No chest pain, No orthopnea, No PND Abdomen: No pain, No nausea, No vomiting All Other Systems: Reviewed and Negative Medications Current Inpatient Medications Medications (Trade) Dose Ordered Sig/Buddy Route Start Time Stop Time Status Last Admin Dose Admin Acetaminophen (Tylenol Tab) 650 mg Q4H PRN PO 04/24/17 19:45 05/24/17 19:44 Al Hydrox/Mg Hydrox/Simethicone (Maalox Max Susp) 15 ml Q4H PRN PO 04/24/17 19:45 05/24/17 19:44 Magnesium Hydroxide (Milk Of Magnesia Susp) 30 ml Q12H PRN PO 04/24/17 19:45 05/24/17 19:44 Ondansetron HCl (Zofran Inj) 4 mg Q6H PRN IV 04/24/17 19:45 05/24/17 19:44 Polyethylene (Miralax Powder Packet) 17 gm DAILY PO 04/25/17 09:00 05/25/17 08:59 04/26/17 07:58 17 GM Albuterol/ Ipratropium (Duoneb) 3 ml QIDR INH 04/25/17 08:00 05/25/17 07:59 04/28/17 15:26 3 ML Ceftriaxone Sodium 1 gm/ Dextrose 50 ml @ 100 mls/hr Q24H IV 04/24/17 21:00 05/01/17 20:59 04/27/17 21:37 100 MLS/HR Aspirin (Ecotrin Tab) 81 mg DAILY PO 04/25/17 09:00 05/25/17 08:59 04/28/17 07:45 81 MG Atorvastatin Calcium (Lipitor Tab) 80 mg DAILY PO 04/25/17 09:00 05/25/17 08:59 04/28/17 07:45 80 MG Budesonide (Pulmicort Respules 0.25MG/ 2ML Neb Soln) 0.25 mg BIDR INH 04/25/17 08:00 05/25/17 07:59 04/28/17 07:04 0.25 MG Buspirone HCl (BusPAR TAB) 15 mg TID PO 04/24/17 21:00 05/24/17 20:59 04/28/17 15:03 15 MG Multi-Ingredient Ointment (Eucerin Unscented Cr) 1 appln BID PRN EXT 04/24/17 19:45 05/24/17 19:44 Fluticasone Propionate (Flonase Nasal [place]) 2 sprays DAILY BUTCH 04/25/17 09:00 05/25/17 08:59 04/28/17 07:44 2 SPRAYS Folic Acid (Folvite Tab) 1 mg DAILY PO 04/25/17 09:00 05/25/17 08:59 04/28/17 07:46 1 MG Guaifenesin (Mucinex Contr Rel Tab) 1,200 mg Q12 PRN PO 04/24/17 19:45 05/24/17 19:44 Lactobacillus Acidophilus (Floranex Tab) 1 tab TIDM PO 04/25/17 07:30 05/25/17 07:59 04/28/17 13:00 1 TAB Pantoprazole Sodium (Protonix Tab) 40 mg DAILY PO 04/25/17 09:00 05/25/17 08:59 04/28/17 07:46 40 MG Pramipexole Dihydrochloride (miraPEX TAB) 0.5 mg HS PO 04/24/17 21:00 05/24/17 20:59 04/27/17 21:38 0.5 MG Sodium Chloride ([place] Nasal [place]) 2 sprays Q6HWA BUTCH 04/25/17 00:00 05/25/17 00:00 04/28/17 13:00 2 SPRAYS Trazodone HCl (Desyrel Tab) 200 mg HS PO 04/24/17 21:00 05/24/17 20:59 04/27/17 21:38 200 MG Venlafaxine HCl (effeXOR EXTENDED REL CAP) 75 mg DAILY PO 04/25/17 09:00 05/25/17 08:59 04/28/17 07:46 75 MG Venlafaxine HCl (effeXOR EXTENDED REL CAP) 150 mg DAILY PO 04/25/17 09:00 05/25/17 08:59 04/28/17 07:46 150 MG Vitamin B Complex/ Vit C/Folic Acid (Nephrocaps) 1 cap DAILY PO 04/25/17 09:00 05/25/17 08:59 04/28/17 07:45 1 CAP Amiodarone HCl (Cordarone Tab) 100 mg DAILY PO 04/25/17 09:00 05/25/17 08:59 04/28/17 07:45 100 MG Cholecalciferol (Vitamin D Tab) 2,000 inter.unit DAILY PO 04/25/17 09:00 05/25/17 08:59 04/28/17 07:45 2,000 INTER.UNIT Ferrous Sulfate (Feosol Tab) 325 mg DAILY PO 04/25/17 09:00 05/25/17 08:59 04/28/17 07:45 325 MG Polyethylene (Miralax Powder Packet) 17 gm DAILY PRN PO 04/24/17 19:45 05/24/17 19:44 Furosemide 20 mg/ Syringe 2 ml @ 4 mls/min QAM IV 04/25/17 09:00 05/25/17 08:59 04/28/17 07:44 4 MLS/MIN Potassium Chloride (Klor-Con Tab) 20 meq QAM PO 04/25/17 09:00 05/25/17 08:59 04/28/17 07:46 20 MEQ Insulin Aspart (novoLOG ASPART) SLIDING SCALE If C... ACHS SC 04/25/17 11:00 05/25/17 10:59 04/28/17 12:58 15 UNITS Glucose (Glucose 40% Gel) 15-30 GRAMS 15 GRAMS... UD PRN PO 04/25/17 08:15 05/25/17 08:14 Glucose (Glucose Chew Tab) 4-8 Tablets 4 Tabl... UD PRN PO 04/25/17 08:15 05/25/17 08:14 Dextrose (Dextrose 50% 50ML Syringe) 25-50ML OF 50% DW IV FOR... UD PRN IV 04/25/17 08:15 05/25/17 08:14 Glucagon (Glucagon Inj) 1 mg UD PRN SQ 04/25/17 08:15 05/25/17 08:14 Methylprednisolone Sodium Succinate 40 mg/Syringe 0.64 ml @ 1.5 mls/min QID IV 04/26/17 13:00 05/26/17 12:59 04/28/17 13:00 1.5 MLS/MIN Fluticasone/ Vilanterol (Breo Ellipta 200-25 Mcg/Inh) 1 inha DAILY INH 04/27/17 09:00 05/27/17 08:59 04/28/17 07:47 1 INHA Insulin Glargine (Lantus Solostar Pen) 20 units BID SC 04/26/17 21:00 05/26/17 20:59 04/28/17 08:21 20 UNITS Albuterol/ Ipratropium (Duoneb) 3 ml Q2H PRN INH 04/27/17 03:30 05/27/17 03:29 Objective Vital Signs Date Time Temp Pulse Resp B/P (MAP) Pulse Ox O2 Delivery O2 Flow Rate FiO2 04/28/17 15:26 104 16 98 Nasal Cannula 4.0 04/28/17 11:38 36.9 94 18 135/77 (96) 98 4.0 04/28/17 11:16 95 16 98 Nasal Cannula 4.0 04/28/17 08:00 Nasal Cannula 4.0 04/28/17 07:54 36.6 108 16 162/73 (102) 94 4.0 04/28/17 07:06 107 16 97 Nasal Cannula 4.0 04/28/17 04:00 Nasal Cannula 4.0 04/28/17 03:05 36.4 98 20 146/76 (99) 96 Nasal Cannula 4.0 04/28/17 00:01 Nasal Cannula 4.0 04/27/17 23:45 36.8 108 20 140/64 (89) 94 Nasal Cannula 4.0 04/27/17 20:00 Nasal Cannula 4.0 04/27/17 19:34 36.8 94 20 153/66 (95) 100 Nasal Cannula 5.0 04/27/17 19:25 94 16 96 Nasal Cannula 4.0 04/27/17 16:00 Nasal Cannula 4.0 04/27/17 15:58 36.4 97 20 164/69 (100) 96 Nasal Cannula 4.0 04/27/17 15:37 108 20 92 Nasal Cannula 4.0 Physical Exam General Appearance: WD/WN, no apparent distress Respiratory/Chest: chest non-tender, normal breath sounds, no respiratory distress, no accessory muscle use, + decreased breath sounds, + pertinent finding (coarse breath sounds) Cardiovascular: regular rate, rhythm, no edema, no gallop, no JVD, no murmur Abdomen: normal bowel sounds, non tender, soft, no organomegaly, no pulsatile mass Extremities: no pedal edema, no calf tenderness Laboratory Results Last 24 Hours Test 04/27/17 16:26 04/27/17 21:07 04/28/17 05:30 04/28/17 06:30 Bedside Glucose 284 mg/dl 208 mg/dl 252 mg/dl White Blood Count 9.64 K/uL Red Blood Count 3.98 M/uL Hemoglobin 11.1 g/dL Hematocrit 37.9 % Mean Corpuscular Volume 95.2 fL Mean Corpuscular Hemoglobin 27.9 pg Mean Corpuscular Hemoglobin Concent 29.3 g/dl RDW Standard Deviation 49.9 fL RDW Coefficient of Variation 14.3 % Platelet Count 277 K/uL Mean Platelet Volume 10.7 fL Test 04/28/17 11:08 Bedside Glucose 145 mg/dl Assessment and Plan Ms. 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 Acute on chronic hypoxic respiratory failure in presence of severe COPD - Currently on O2, satting at 98% on 4L (home dose) - No qualified for bipap at home. Will need to have sleep study as outpatient. 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 No sign of aspiration noted. Recommendation -.slippery regular diet - swallow study showed esophageal dysmotility, possibly presbyesophagus - Thank you to GI for consult. Recommendations include: - protonix 40mg daily (currently not on this in outpatient setting) - 1-2 peppermint altoids prior to meals to reduce spasms - patient states she currently does not want esophageal manometry studies - f/u in outpatient if needed Acute on chronic diastolic CHF - In total, she received 60mg IV Lasix during this admission - does not appear volume overloaded at the current time, will monitor - last echo was August 2016: * The left ventricle is hyperdynamic. * No regional wall motion abnormalities noted. * Ejection Fraction = >70 %. * There is mild concentric left ventricular hypertrophy. * Grade I diastolic dysfunction, (abnormal relaxation pattern). * There is mild tricuspid regurgitation - I&O and daily weight - BNP 597 Afib with RVR on admission - back in NSR - troponins and EKG negative for ischemic changes - was in afib on admission, but has been in sinus with PACs and PVCs since - continue Amiodarone 100 mg daily - no anticoagulation given history of recent GI bleed Right sided back pain - likely MSK secondary to coughing - will monitor - no complaints in 2 days Hypokalemia - Administered 40 meq of PO KCL prior to lasix administration - K 4.2, resolved Hyperlipidemia/ homocysteinemia / h/o CVA - continue ASA 81 mg - continue Lipitor 80 mg daily H/o GI bleed - continue Protonix 40 mg daily Anxiety - continue Effexor 75 and 150 mg daily, Trazodone 200 mg HS DMII - BSG AC hs while on steroids - continue current glycemic regimen: - IV Insulin 10 units once now - Lantus changed to 20 units BID - Goal range 110 to 140 - CF 15, Carb ratio 5 DVT Prophylaxis: SCDs Code: Full Disposition: remains on telemetry, hopefully d/c tomorrow Resident Tracking Resident Involvement: Resident Care Provided Care Provided: Adult Hospital Medicine Reviewed: Pt Seen/Exam by Me History still with lots of cough and wheezing Constitutional: denies: fever Respiratory: positive: cough, wheezing Cardiovascular: denies chest pain General Appearance: no apparent distress Respiratory: no respiratory distress, decreased breath sounds, wheezing ( occasional) Cardiovascular: regular rate, rhythm Gastrointestinal: soft Neurologic/Psychiatric: alert, oriented x 3 Skin Characteristics: warm/dry Assessment/Plan Resident Physician Supervision Note: I independently interviewed and examined the patient and verified the goyal history and physical, reviewed labs and image studies, discussed the case with the resident Dr. Franco and agree with the findings and care plan.
[2017-04-28] MEDS: CEFTRIAXONE SOD INJ 1 GM in DEXTROSE 5% ADD-VANTAGE 50ML 50 ML IV SCH (20:17)
[2017-04-28] MEDS: PRAMIPEXOLE DIHYDROCHLORIDE 0.5 MG TAB PO SCH (22:11)
[2017-04-28] MEDS: TRAZODONE HCL 100 MG TAB PO SCH (22:11)
[2017-04-29 03:19] VITALS: BP 150/80; PULSE 89; TEMP 36.5; O2SAT 99
[2017-04-29] MEDS: SODIUM CHLORIDE 0.65% NA SOLN 45 ML (OCEAN) NAE SCH ×2 (06:00→12:07)
[2017-04-29] MEDS: BUDESONIDE 0.25 MG/2 ML VIAL (PULMICORT) INH SCH (06:56)
[2017-04-29] MEDS: ALBUT/IPRATROP 3MG/0.5MG NEB 3 ML VIAL INH SCH ×2 (06:56→11:08)
[2017-04-29 06:58] VITALS: PULSE 81; O2SAT 96
[2017-04-29 08:04] VITALS: BP 136/80; PULSE 88; TEMP 36.5; O2SAT 96
[2017-04-29] MEDS ORDERED: CEFDINIR 300 MG CAP PO SCH (09:00)
[2017-04-29] MEDS: POLYETHYLENE (MIRALAX) 17 GM PACK PO SCH (09:00)
[2017-04-29] MEDS: METHYLPREDNISOLONE IV 40 MG in SYRINGE 0 ML IV SCH (09:02)
[2017-04-29] MEDS: BusPIRone 15 MG TAB PO SCH (09:03)
[2017-04-29] MEDS: VENLAFAXINE HCL XR 150 MG CAPXR PO SCH (09:03)
[2017-04-29] MEDS: FUROSEMIDE INJ 20 MG in SYRINGE 0 ML IV SCH (09:03)
[2017-04-29] MEDS: LACTOBACILLUS ACIDOPHILUS (FLORANEX) TAB PO SCH ×2 (09:03→12:07)
[2017-04-29] MEDS: VENLAFAXINE HCL XR 75 MG CAPXR PO SCH (09:03)
[2017-04-29] MEDS: NEPHROCAPS PO SCH (09:03)
[2017-04-29] MEDS: ASPIRIN 81 MG ECTAB PO SCH (09:04)
[2017-04-29] MEDS: AMIODARONE 200 MG TAB PO SCH (09:04)
[2017-04-29] MEDS: CHOLECALCIFEROL 1000 INTER.UNIT TAB PO SCH (09:04)
[2017-04-29] MEDS: FERROUS SULFATE 325 MG TAB PO SCH (09:04)
[2017-04-29] MEDS: PANTOprazole SOD 40 MG TAB PO SCH (09:05)
[2017-04-29] MEDS: POTASSIUM CHLORIDE 20 MEQ TABCR PO SCH (09:05)
[2017-04-29] MEDS: UMECLIDINIUM BROMIDE 62.5MCG/INH INH SCH (09:06)
[2017-04-29] MEDS: FLUTICASONE FUROATE-VILANTEROL 200/25 MCG INH INH SCH (09:06)
[2017-04-29] MEDS: FLUTICASONE PROPIONATE NA SPR 16 GM BTL NAE SCH (09:06)
[2017-04-29] MEDS: ATORVASTATIN 40 MG TAB PO SCH (09:07)
[2017-04-29] MEDS: INSULIN ASPART 100 UNITS/ML 3 ML PEN SC SCH ×2 (09:15→12:11)
[2017-04-29] MEDS: INSULIN GLARGINE SOLOSTAR 100 UNITS/ML 3 ML PEN SC SCH (09:16)
[2017-04-29] MEDS ORDERED: CEFD300C3 PO (10:04)
--- NOTE | 2017-04-29 10:09 | Discharge Instructions ---
Discharge Instructions Date of Service Apr 29, 2017. Admission Reason for Admission: Acute And Chronic Respiratory Failure With Hypoxia Discharge Discharge Diagnosis / Problem: acute on chronic respiratory failure in the presence of severe COPD Discharge Goals Goal(s): Decrease discomfort, Diagnostic testing, Therapeutic intervention Activity Recommendations Activity Limitations: resume your previous activity . Instructions / Follow-Up Instructions / Follow-Up Ms. Church you were admitted for 1 week of worsening productive cough with shortness of breath. You also reported abdominal weight gain that you had noticed a month ago. You were found to be in respiratory failure with atrial fibrillation. Your sputum grew a bacteria called Moraxella Catarrhalis and we treated you with antibiotics which you should continue for another 5 days at home. Your breathing improved on your home dosage of 4L of oxygen, medications: antibiotics , steroid (methylprednisone), and inhalers. You were also found to have difficulty swallowing. We did a speech and swallow evaluation on you and they recommended a slippery regular diet to help you with that. You can also take 1-2 peppermint altoids prior to meals to help reduce your esophageal spasms. Your heart electrical activity improved during your admission and you were no longer in atrial fibrillation prior to discharge. You were also a little fluid overloaded and we gave you a water pill (Lasix) which helped. -Please continue antibiotic Cefdinir 300mg twice a day for 5 days -Please continue methylprednisone (steroid) taper for the next 9 days Please take: Methylprednisolone 30mg (3 tabs each day) for the first 3 days Then 20mg (2 tabs each day) for the next 3 days Then 10mg (1 tab each day) for the next 3 days Total course 9 days -Please see your primary care/family doctor for an outpatient sleep study to evaluate need for bipap -If your difficulty swallowing worsens please ask your primary care/family doctor for an esophageal manometry study -Please continue any medications you were taking at home prior to your admission Current Hospital Diet Patient's current hospital diet: AHA Diet (Heart Healthy), Diabetes Type 2 Diet Discharge Diet Recommended Diet: AHA Diet (Heart Healthy), Diabetes Type 2 Diet Pending Studies Studies pending at discharge: no Laboratory Results Hemoglobin A1c Test 04/25/17 06:44 Range/Units Estimated Average Glucose 160 mg/dl Hemoglobin A1c 7.2 H 4.5-5.6 % Medical Emergencies . Who to Call and When: Medical Emergencies: If at any time you feel your situation is an emergency, please call 911 immediately. . Non-Emergent Contact Non-Emergency issues call your: Primary Care Provider . . "Provider Documentation" section prepared by Jero Morris. . VTE Core Measure Inpt VTE Proph given/why not?: SCD's
[2017-04-29] MEDS ORDERED: MDR4 PO ×2 (10:48→11:55)
[2017-04-29 11:09] VITALS: PULSE 100; O2SAT 98
[2017-04-29 11:54] VITALS: BP 183/83; PULSE 108; TEMP 36.6; O2SAT 91
[2017-04-29 12:17] VITALS: BP 183/83; PULSE 108; TEMP 36.6; O2SAT 91
--- NOTE | 2017-04-29 13:08 | Discharge Summary ---
Discharge Summary Date of Service Apr 29, 2017. Discharge Summary Admission Date: Apr 24, 2017 at 19:43 Discharge Date: Apr 29, 2017 Discharge Disposition: Home Principal Diagnosis: acute on chronic respiratory failure in the presence of severe COPD Problems/Secondary Diagnoses: Dysphagia (esophageal dysmotility) Diastolic CHF AFib with RVR Hyperlipidemia Homocysteinemia History of CVA History of recent GI bleed Anxiety DMII Immunizations: Have You Had Influenza Vaccine: Yes Influenza Vaccine Date: Apr 12, 2013 History of Tetanus Vaccine?: Unknown Tetanus Immunization Date: Nov 09, 2007 History of Pneumococcal: Yes Pneumococcal Date: Mar 10, 2011 History of Hepatitis B Vaccine: No Procedures: Swallow study - esophageal dysmotility possible presbyesophagus Consultations: Gastroenterology - Dr. Rita Davidson Medication Reconciliation New Medications: Methylprednisolone (Methylprednisolone) 4 Mg Tab 10 MG PO DAILY for 9 Days, #18 TAB Please take: Methylprednisolone 30mg (3 tabs) each day for the first 3 days Then 20mg (2 tabs each day) for the next 3 days Then 10mg (1 tab each day) for the next 3 days Total course 9 days Cefdinir (Cefdinir) 300 Mg Cap 300 MG PO BID for 5 Days, #10 CAP Continued Medications: Amiodarone Hcl (Amiodarone Hcl) 100 Mg Tab 100 MG PO DAILY Aspirin (Aspirin Ec) 81 Mg Tab 81 MG PO DAILY Atorvastatin (Lipitor) 80 Mg Tab 80 MG PO DAILY Budesonide (Inhalation) (Pulmicort Respules 0.25MG/2ML) 0.25 Mg/2 Ml Radha 0.25 MG NEB BID Buspirone HCl (Buspirone HCl) 15 Mg Tab 15 MG PO TID Cholecalciferol (Vitamin D) 2,000 Unit Tab 2000 INTER.UNIT PO DAILY Eucerin (Eucerin) Cre 1 APPLN TOP BID PRN for DRYNESS Ferrous Sulfate (Kp Ferrous Sulfate) 325 Mg Tab 325 MG PO DAILY Fluticasone Furoate-Vilanterol (Breo Ellipta) 1 Inh Inh 1 PUFF INH DAILY Fluticasone Propionate (Nasal) (Flonase Allergy Relief) 50 Mcg/Act Spr 2 SPRAYS BUTCH DAILY Folic Acid (Folvite) 1 Mg Tab 1 MG PO DAILY Guaifenesin Ext Rel (Mucinex Ext Rel) 600 Mg Tab 1200 MG PO Q12 PRN for CONGESTION, TAB Ipratropium-Albuterol (Combivent Respimat) 1 Aer Aer 1 PUFFS INH QID PRN for SOB/Wheezing, INH Lactobacillus (Floranex) 1 Tab Tab 1 TAB PO TIDM Magnesium Hydroxide (Milk Of Magnesia) 30 Ml Susp 30 ML PO Q12 PRN for Constipation, ML Pantoprazole (Pantoprazole Sodium) 40 Mg Tab 40 MG PO DAILY Polyethylene Glycol 3350 (Miralax) 1 Pow Pow 17 GM PO DAILY PRN for Constipation, #527 GM Pramipexole Dihydrochloride (Pramipexole Dihydrochlori) 0.5 Mg Tab 0.5 MG PO HS Saline ([place] Nasal [place]) 0.65 % Spr 2 SPRAYS BUTCH Q6HWA Trazodone HCl (Trazodone HCl) 100 Mg Tab 200 MG PO HS Umeclidinium [place] (Incruse Ellipta) 62.5 Mcg/Inh Inh 1 PUFF INH DAILY Venlafaxine Hcl (Effexor Extended Rel) 150 Mg Capcr 150 MG PO DAILY TAKE WITH 75MG = 225 MG TOTAL Venlafaxine Hcl (Effexor Extended Rel) 75 Mg Capcr 75 MG PO DAILY TAKE WITH 150 MG = 225MG TOTAL Vitamin B Cmplx/Vitc/Folic Ac (Nephrocaps) Cap 1 CAP PO DAILY, CAP Vitamin E (Topical) (Vitamin E) 1,000 Unit Cre 1000 UNITS PO DAILY Discharge Exam This afternoon Ms. Church reported feeling better than this morning and being able to get out of bed, was sitting in a chair when re-examined. Reported improvement in shortness of breath but still having a productive cough. Review of Systems: Constitutional: No fever, No chills Respiratory: + cough, + sputum, + shortness of breath Cardiovascular: No chest pain Abdomen: No pain, No nausea, No vomiting Genitourinary - Female: No dysuria Physical Exam: General Appearance: no apparent distress Eyes: normal inspection Neck: supple, no JVD Respiratory/Chest: + decreased breath sounds, + wheezing (mild expiratory wheezing) Cardiovascular: regular rate, rhythm Abdomen / GI: normal bowel sounds, non tender, soft Extremities: + pertinent finding (1+ R and trace L pretibial edema) Neurologic/Psychiatric: alert Hospital Course Ms. 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 Acute on chronic hypoxic respiratory failure in the setting infection with Moraxella catarrhalis and acute exacerbation of chronic severe COPD - Remained on O2 4L (home dose) - Sputum culture grew moraxella catarrhalis - started on Rocephin, and transition to 300mg oral cefdinir BID (dced with 5 day course of Cefdinir 300mg BID) - Started on Methylprednisone 40mg qid --- Discharged on daily taper. 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 Recommendation - slippery regular diet - Swallow study - esophageal dysmotility, possibly presbyesophagus - GI Consult Recommendation: - Protonix 40mg daily - 1-2 peppermint altoids prior to meals to reduce spasms - Consider outpatient esophageal manometry studies Acute on chronic diastolic CHF - improved - BNP 597 - Received 60mg of IV Lasix during admission - last echo August 2016: EF = > 70%, hyperdynamic LV, mild concentric LVH, grade I diastolic dysfunction, mild tricuspid regurg, no regional wall motion abnormalities, Afib with RVR on admission - returned to NSR - troponins and EKG negative for ischemic changes - was in afib on admission, but has been in sinus with PACs and PVCs since - Continued Amiodarone 100 mg daily - Not anticoagulated given history of recent GI bleed Hyperlipidemia/ homocysteinemia / h/o CVA - continued ASA 81 mg - continued Lipitor 80 mg daily H/o GI bleed - continued Protonix 40 mg daily Anxiety - continued Effexor 75 and 150 mg daily, Trazodone 200 mg HS DMII - Lantus 20 units BID - Goal range 110 to 140 - CF 15, Carb ratio 5 Hypokalemia - resolved - Administered 40 meq of PO KCL prior to lasix administration - K 4.2 Total Time Spent: Less than 30 minutes This includes examination of the patient, discharge planning, medication reconciliation, and communication with other providers. Discharge Instructions Please refer to the electronic Patient Visit Report (Discharge Instructions) for additional information. Follow-Up Follow up with PCP within a week of discharge Additional Copies To Ray Pereira III, CRNP Reviewed: Pt Seen/Exam by Me History cough and shortness of breath much improved Constitutional: denies: fever Cardiovascular: reports chest pain General Appearance: no apparent distress Respiratory: no respiratory distress, decreased breath sounds, wheezing ( occasional) Cardiovascular: regular rate, rhythm Gastrointestinal: soft Neurologic/Psychiatric: alert, oriented x 3 Assessment/Plan Resident Physician Supervision Note: I independently interviewed and examined the patient and verified the goyal history and physical, reviewed labs and image studies, discussed the case with the resident Dr. Morris and agree with the findings and care plan.
== END 2017-04-29 14:15 | disposition home or self-care (01) | DRG 189 ==
LOC: C.EDB 16:11 → C.2T 19:43 → ENRESERV 19:49 → C.2T 04-27 14:33
PROVIDERS: ADMIT Hospitalist; ATTEND Family Medicine
DX: J96.21 Acute and chronic respiratory failure with hypoxia (principal); I50.33 Acute on chronic diastolic (congestive) heart failure; J44.1 Chronic obstructive pulmonary disease with (acute) exacerbation; E72.11 Homocystinuria; J96.22 Acute and chronic respiratory failure with hypercapnia; K22.4 Dyskinesia of esophagus; K22.8 Other specified diseases of esophagus; M54.9 Dorsalgia, unspecified; I11.0 Hypertensive heart disease with heart failure; I48.0 Paroxysmal atrial fibrillation; E87.6 Hypokalemia; E78.5 Hyperlipidemia, unspecified; E11.9 Type 2 diabetes mellitus without complications; G25.81 Restless legs syndrome; F41.9 Anxiety disorder, unspecified; F32.9 Major depressive disorder, single episode, unspecified; K21.9 Gastro-esophageal reflux disease without esophagitis; Z91.19 Patient's noncompliance with other medical treatment and regimen; Z86.73 Personal history of transient ischemic attack (TIA), and cerebral infarction without residual deficits; Z87.19 Personal history of other diseases of the digestive system; Z87.891 Personal history of nicotine dependence; Z99.81 Dependence on supplemental oxygen; Z79.51 Long term (current) use of inhaled steroids; Z79.82 Long term (current) use of aspirin; Z79.899 Other long term (current) drug therapy; Z83.3 Family history of diabetes mellitus; Z82.49 Family history of ischemic heart disease and other diseases of the circulatory system; Z80.3 Family history of malignant neoplasm of breast; Z80.7 Family history of other malignant neoplasms of lymphoid, hematopoietic and related tissues

== ENCOUNTER 2017-05-21 12:24 | Emergency (ER) | payer OTHER, MEDICARE ==
[~2017-05-21 12:24] MED LIST changes: +B-CO1CAP17 PO; +BUDE0.253 NEB; -BUDE0.5S INH; +CEFD300C3 PO; -DILT-113 PO; -LVQ750 PO; +MDR4 PO; -OXGN; -PRAM0.256 PO; +PRAM0.5T10 PO; -PRED10TA PO; +VITA1CRE PO
[2017-05-21 12:36] VITALS: TEMP 36.7; Ht 160 cm
--- NOTE | 2017-05-21 13:45 | DIAGNOSTIC IMAGING REPORT ---
R TIBIA/FIBULA 2 VIEWS ROUTINE CLINICAL HISTORY: Palpable lump. Pain. COMPARISON: None FINDINGS: No acute fracture or osseous lesion is identified within the right tibia or fibula. There is mild soft tissue swelling anterior to the proximal to mid shaft of the right tibia. Alignment of the right knee and right ankle is anatomic. No soft tissue gas is identified. IMPRESSION: 1. No osseous abnormality of the right tibia or fibula. 2. Mild soft tissue swelling anterior to the proximal to mid shaft of the right tibia. Electronically signed by: Marco Mccall M.D. 05/21/2017 1:44 PM Dictated Date/Time: 05/21/2017 1:41 PM
--- NOTE | 2017-05-21 13:50 | DIAGNOSTIC IMAGING REPORT ---
RIGHT LOWER EXTREMITY VENOUS DOPPLER CLINICAL HISTORY: Right leg pain. COMPARISON STUDY: Right lower extremity venous Doppler January 02, 2017. TECHNIQUE: Sonography of the deep venous system of the right lower extremity was performed. Compression and augmentation were evaluated. FINDINGS: The right common femoral, superficial femoral and popliteal veins were compressible. Augmentation was normal. Flow was shown within the deep calf vessels. A 5.4 x 0.9 x 2 cm cystic abnormality within right popliteal fossa suggests a popliteal cyst. IMPRESSION: 1. No evidence of deep venous thrombus within the right lower extremity. 2. 5.4 x 0.9 x 2 cm mildly complex right popliteal cyst. Electronically signed by: Marco Mccall M.D. 05/21/2017 1:49 PM Dictated Date/Time: 05/21/2017 1:48 PM
[2017-05-21] MEDS ORDERED: CEPH500C PO (14:06)
[2017-05-21 14:27] VITALS: BP 164/68; PULSE 87; O2SAT 93
--- NOTE | 2017-05-21 17:37 | EMERGENCY ROOM VISIT NOTE ---
History Report prepared by Seth: Kerry Norton Under the Supervision of: Dr. Dharmesh Shore M.D. First contact with patient: 12:46 Chief Complaint: LEG PAIN,LEG INJURY Stated Complaint: R LEG LUMP IN IT AND VERY SORE History of Present Illness The patient is a 77 year old female who presents to the Emergency Room with complaints of persistent right leg pain starting last night. She noticed a small lump on her right pratt last night which was painful. She has a sharp pain when she hits her leg. The pain goes up into her thigh and feels sore. She has swelling to her right leg which is worse than usual. She normally has more swelling to the left leg. She denies any injury to her leg. She has not noticed any redness. She denies any fever, vomiting, SOB, chest pain, or calf pain. Source of History: patient Onset: last night Position: leg (right) Quality: other (sore) Timing: other (persistent) Modifying Factors (Worsening): other (hitting) Associated Symptoms: No fevers, No chest pain, No SOB, No vomiting Note: Pt denies calf pain. Review of Systems See HPI for pertinent positives & negatives. A total of 10 systems reviewed and were otherwise negative. Past Medical & Surgical Medical Problems: (1) Acute and chronic respiratory failure with hypoxia (2) Acute on chronic respiratory failure (3) Diab Zoey Wo Compl, Type Ii Or Unspec Type, Not Uncntrld (4) Diverticulosis Colon (W/O Ment Of Hemorrhage) (5) Hyperlipidemia Nec/Nos (6) Hypertension Nos (7) Left lower lobe pneumonia (8) Obstr Chronic Bronchitis, W (Acute) Exacerbation (9) Paroxysmal a-fib (10) Pneumonia, Organism Nos (11) Pure Hypercholesterolem (12) Symptomatic anemia (13) Tubal Ligation Status Family History Diabetes mellitus FH: cancer (lymphoma, breast cancer) Hypertension Social History Smoking Status: Former Smoker Alcohol Use: none Drug Use: none Marital Status: Housing Status: lives with family Occupation Status: retired Current/Historical Medications Scheduled Amiodarone Hcl (Amiodarone Hcl), 100 MG PO DAILY Aspirin (Aspirin Ec), 81 MG PO DAILY Atorvastatin (Lipitor), 80 MG PO DAILY Budesonide (Inhalation) (Pulmicort Respules 0.25MG/2ML), 0.25 MG NEB BID Buspirone HCl (Buspirone HCl), 15 MG PO TID Cephalexin Monohydrate (Keflex), 500 MG PO TID Cholecalciferol (Vitamin D), 2,000 INTER.UNIT PO DAILY Ferrous Sulfate (Kp Ferrous Sulfate), 325 MG PO DAILY Fluticasone Furoate-Vilanterol (Breo Ellipta), 1 PUFF INH DAILY Fluticasone Propionate (Nasal) (Flonase Allergy Relief), 2 SPRAYS BUTCH DAILY Folic Acid (Folvite), 1 MG PO DAILY Lactobacillus (Floranex), 1 TAB PO TIDM Pantoprazole (Pantoprazole Sodium), 40 MG PO DAILY Pramipexole Dihydrochloride (Pramipexole Dihydrochlori), 0.5 MG PO HS Saline ([place] Nasal [place]), 2 SPRAYS BUTCH Q6HWA Trazodone HCl (Trazodone HCl), 200 MG PO HS Umeclidinium [place] (Incruse Ellipta), 1 PUFF INH DAILY Venlafaxine Hcl (Effexor Extended Rel), 150 MG PO DAILY Venlafaxine Hcl (Effexor Extended Rel), 75 MG PO DAILY Vitamin B Cmplx/Vitc/Folic Ac (Nephrocaps), 1 CAP PO DAILY Vitamin E (Topical) (Vitamin E), 1,000 UNITS PO DAILY Scheduled PRN Eucerin (Eucerin), 1 APPLN TOP BID PRN for DRYNESS Guaifenesin Ext Rel (Mucinex Ext Rel), 1,200 MG PO Q12 PRN for CONGESTION Ipratropium-Albuterol (Combivent Respimat), 1 PUFFS INH QID PRN for SOB/Wheezing Magnesium Hydroxide (Milk Of Magnesia), 30 ML PO Q12 PRN for Constipation Polyethylene Glycol 3350 (Miralax), 17 GM PO DAILY PRN for Constipation Allergies Coded Allergies: Mushroom (Verified Allergy, Unknown, 05/21/17) Theophyllines (Verified Allergy, Unknown, Unknown, 05/21/17) Reported by daughter and [facility]. Codeine (Verified Adverse Reaction, Severe, HYPERVENTILATES, 05/21/17) Morphine (Verified Adverse Reaction, Severe, Causes Afib, 05/21/17) Physical Exam Vital Signs Date Time Temp Pulse Resp B/P (MAP) Pulse Ox O2 Delivery O2 Flow Rate FiO2 05/21/17 14:27 87 20 164/68 93 05/21/17 12:36 36.7 93 20 149/69 86 Nasal Cannula 4.0 Physical Exam Constitutional: Vital signs reviewed. Eyes: Pupils are equal round reactive to light. Conjunctiva are noninjected. ENT: Pharynx is clear without erythema or exudate. Mucous membranes are moist. Neck supple without meningeal signs. Respiratory: Clear to auscultation bilaterally. Breath sounds are equal bilaterally. Cardiovascular: Regular rate and rhythm. No rubs or gallops. GI: Soft, nondistended and nontender. Bowel sounds are present. Musculoskeletal: Bilateral lower extremity edema. Tenderness over the right anterior tibia. No increased warmth or erythema. Normal distal pulses. Integumentary: No cyanosis. Neurological: The patient is awake and alert. No focal deficits. Psychiatric: Normal affect. Medical Decision & Procedures ER Provider Diagnostic Interpretation: X-ray results as stated below per interpretation by me and the radiologist. Radiology results as stated below per my review and the radiologist's interpretation: R TIBIA/FIBULA 2 VIEWS ROUTINE CLINICAL HISTORY: Palpable lump. Pain. COMPARISON: None FINDINGS: No acute fracture or osseous lesion is identified within the right tibia or fibula. There is mild soft tissue swelling anterior to the proximal to mid shaft of the right tibia. Alignment of the right knee and right ankle is anatomic. No soft tissue gas is identified. IMPRESSION: 1. No osseous abnormality of the right tibia or fibula. 2. Mild soft tissue swelling anterior to the proximal to mid shaft of the right tibia. Electronically signed by: Marco Mccall M.D. 05/21/2017 1:44 PM Dictated Date/Time: 05/21/2017 1:41 PM RIGHT LOWER EXTREMITY VENOUS DOPPLER CLINICAL HISTORY: Right leg pain. COMPARISON STUDY: Right lower extremity venous Doppler January 02, 2017. TECHNIQUE: Sonography of the deep venous system of the right lower extremity was performed. Compression and augmentation were evaluated. FINDINGS: The right common femoral, superficial femoral and popliteal veins were compressible. Augmentation was normal. Flow was shown within the deep calf vessels. A 5.4 x 0.9 x 2 cm cystic abnormality within right popliteal fossa suggests a popliteal cyst. IMPRESSION: 1. No evidence of deep venous thrombus within the right lower extremity. 2. 5.4 x 0.9 x 2 cm mildly complex right popliteal cyst. Electronically signed by: Marco Mccall M.D. 05/21/2017 1:49 PM Dictated Date/Time: 05/21/2017 1:48 PM ED Course 1253: The patient was evaluated in room B8. A complete history and physical exam was performed. 1404: I reevaluated the patient. I discussed the test results with her. She has an appointment to see her doctor this week. She verbalized agreement of the treatment plan. She was discharged home. Medical Decision This is a 77-year-old female presents with right leg pain. Differential diagnosis includes contusion, pathologic fracture, DVT, superficial, phlebitis, infection. I did perform a limited focused review of portions of the patient's old chart on the electronic medical record. The patient was admitted in April for COPD exacerbation. I did evaluate the patient as noted above. The patient has pain over her anterior pratt which she says radiates up into her thigh. She also noted increased swelling to the leg. She normally has swelling to both legs. She denies any chest pain or shortness of breath. Her O2 saturation was 96% on 4 L which she is customarily on. She is well-appearing on my examination. I did order and personally review the patient's tib-fib x-ray as described above. There is no evidence of pathologic fracture. I did order a Doppler sonogram of her right leg. I did review the images myself as well as the radiology report as described above. There is no evidence of DVT. She does have a Clark cyst. I did discuss the test results with the patient. It is unclear why she has anterior pratt tenderness. I did place her on Keflex as I was concerned about the possibility of an early infection. I did recommend very close follow with her doctor. She does have an appointment this week with her doctor. She was discharged with a prescription for Keflex. Medication Reconcilliation Current Medication List: was personally reviewed by me Blood Pressure Screening Patient's blood pressure: Elevated blood pressure Blood pressure disposition: Referred to PCP Impression Primary Impression: Leg pain, right Scribe Attestation The scribe's documentation has been prepared under my direct and personally reviewed by me in its entirety. I confirm that the note above accurately reflects all work, treatment, procedures, and medical decision making performed by me. Departure Information Dispostion Home / Self-Care Prescriptions Cephalexin Monohydrate (Keflex) 500 Mg Cap 500 MG PO TID for 10 Days, #30 CAP Prov: Dharmesh Shore M.D. 05/21/17 Referrals Ray Pereira III, CRNP (PCP) Forms HOME CARE DOCUMENTATION FORM, IMPORTANT VISIT INFORMATION Patient Instructions My [facility] Additional Instructions You have been examined and treated today on an emergency basis only. This is not a substitute for, or an effort to provide, complete comprehensive medical care. It is impossible to recognize and treat all injuries or illnesses in a single emergency department visit. It is therefore important that you follow up closely with your physician. Call as soon as possible for an appointment. Return for worsening symptoms or if you develop fever, vomiting, chest pain, shortness of breath or any other concerning symptoms.
== END 2017-05-21 14:29 | disposition home or self-care (01) ==
LOC: C.EDB 12:26
DX: M71.21 Synovial cyst of popliteal space [Baker], right knee (principal); J96.10 Chronic respiratory failure, unspecified whether with hypoxia or hypercapnia; E11.9 Type 2 diabetes mellitus without complications; I27.0 Primary pulmonary hypertension; E78.5 Hyperlipidemia, unspecified; I48.0 Paroxysmal atrial fibrillation; Z79.82 Long term (current) use of aspirin; Z79.51 Long term (current) use of inhaled steroids; Z99.81 Dependence on supplemental oxygen; Z87.891 Personal history of nicotine dependence; Z83.3 Family history of diabetes mellitus; Z80.3 Family history of malignant neoplasm of breast; Z82.49 Family history of ischemic heart disease and other diseases of the circulatory system; Z80.7 Family history of other malignant neoplasms of lymphoid, hematopoietic and related tissues

== ENCOUNTER → 2017-05-25 | Outpatient (CLI) | payer OTHER, MEDICARE ==
[~2017-05-25] MED LIST changes: -CEFD300C3 PO; +CEPH500C PO; -MDR4 PO
--- NOTE | 2017-05-25 13:53 | DIAGNOSTIC IMAGING REPORT ---
TWO VIEW CHEST CLINICAL HISTORY: Edema. FINDINGS: PA and lateral chest radiographs are compared to study dated 04/24/2017 and correlated with chest CT dated 09/13/2016. The heart is enlarged and there is atherosclerotic calcification of the thoracic aorta. The pulmonary vasculature is noncongested. Chronic interstitial thickening is similar to previous. No airspace consolidation or pleural effusion is identified. There is no pneumothorax. The skeletal structures are osteopenic. Degenerative change is noted in the thoracic spine. IMPRESSION: Cardiomegaly with no active disease in the chest. Electronically signed by: Jose Zazueta M.D. 05/25/2017 1:52 PM Dictated Date/Time: 05/25/2017 1:51 PM
[2017-05-25 14:36] LABS: BASO % 0.8 %; BASO ABS # 0.04 K/uL (0-0.2); EOS % 3.3 %; EOS ABS # 0.17 K/uL (0-0.5); HEMATOCRIT 38.6 % (37-47); HEMOGLOBIN 11.5 g/dL (12.0-16.0); IG# 0.02 K/uL (0.00-0.02); LYMPH % 28.6 %; LYMPH ABS # 1.46 K/uL (1.2-3.4); MEAN CELL VOLUME 95.3 fL (80-100); MEAN CORPUSCULAR HEMOGLOBIN 28.4 pg (25-34); MEAN CORPUSCULAR HGB CONC 29.8 g/dl (32-36); MEAN PLATELET VOLUME 10.9 fL (7.4-10.4); MONO % 7.2 %; MONO ABS # 0.37 K/uL (0.11-0.59); NEUT % 59.7 %; NEUT ABS # 3.05 K/uL (1.4-6.5); PLATELET COUNT 218 K/uL (130-400); RED CELL DISTRIBUTION WIDTH CV 16.2 % (11.5-14.5); RED CELL DISTRIBUTION WIDTH SD 56.1 fL (36.4-46.3); WHITE BLOOD COUNT 5.11 K/uL (4.8-10.8)
[2017-05-25 14:47] LABS: ALBUMIN 2.9 gm/dl (3.4-5.0); ALT/SGPT 20 U/L (12-78); BLOOD UREA NITROGEN 10 mg/dl (7-18); CALCIUM 8.9 mg/dl (8.5-10.1); CARBON DIOXIDE 39 mmol/L (21-32); CREATININE 0.74 mg/dl (0.60-1.20); GLUCOSE 236 mg/dl (70-99); POTASSIUM 4.2 mmol/L (3.5-5.1); SODIUM 141 mmol/L (136-145)
[2017-05-25 14:50] LABS: ALKALINE PHOSPHATASE 174 U/L (45-117); AST/SGOT 15 U/L (15-37); TOTAL PROTEIN 6.6 gm/dl (6.4-8.2)
== END | disposition home or self-care (01) ==
LOC: C.LAB 12:55
PROVIDERS: ATTEND Nurse Practitioner Family
DX: R60.9 Edema, unspecified (principal); I51.7 Cardiomegaly

== ENCOUNTER → 2017-06-06 | Outpatient (CLI) | payer OTHER, MEDICARE ==
[~2017-06-06] MED LIST changes: -CEPH500C PO; +DILT-113 PO; +FURO-85 PO; +MIRT30TA2 PO; +PRLSR20 PO
[2017-06-06 12:54] LABS: BLOOD UREA NITROGEN 13 mg/dl (7-18); CALCIUM 8.5 mg/dl (8.5-10.1); CARBON DIOXIDE 40 mmol/L (21-32); CREATININE 0.82 mg/dl (0.60-1.20); GLUCOSE 247 mg/dl (70-99); POTASSIUM 3.5 mmol/L (3.5-5.1); SODIUM 139 mmol/L (136-145)
== END | disposition home or self-care (01) ==
LOC: C.LABBFT 11:14
PROVIDERS: ATTEND Nurse Practitioner Family
DX: R60.9 Edema, unspecified (principal)

== ENCOUNTER 2017-06-08 22:08 | Observation (INO) | payer OTHER, MEDICARE ==
[~2017-06-08] VITALS: Ht 160 cm; Wt 110.0 kg
[~2017-06-08 22:08] MED LIST changes: -DILT-113 PO; -FURO-85 PO; -MIRT30TA2 PO; -PRLSR20 PO
[2017-06-08] MEDS ORDERED: SODIUM CHLORIDE 0.9% 1000ML 1,000 ML IV SCH (22:48)
[2017-06-08 23:18] LABS: INR 0.9 (0.9-1.1); PTT PATIENT 22.9 SECONDS (21.0-31.0)
[2017-06-08 23:19] LABS: ALBUMIN 3.2 gm/dl (3.4-5.0); ALT/SGPT 19 U/L (12-78); BLOOD UREA NITROGEN 12 mg/dl (7-18); CALCIUM 8.9 mg/dl (8.5-10.1); CARBON DIOXIDE 38 mmol/L (21-32); CREATININE 0.83 mg/dl (0.60-1.20); GLUCOSE 215 mg/dl (70-99); POTASSIUM 3.9 mmol/L (3.5-5.1); SODIUM 140 mmol/L (136-145)
[2017-06-08 23:24] LABS: ALKALINE PHOSPHATASE 145 U/L (45-117); AST/SGOT 21 U/L (15-37); CKMB 2.2 ng/ml (0.5-3.6)
[2017-06-08] MEDS ORDERED: MIRT30TA2 PO (23:42)
[2017-06-08] MEDS ORDERED: DILT-113 PO (23:44)
[2017-06-08] MEDS ORDERED: PRLSR20 PO (23:47)
[2017-06-08] MEDS ORDERED: FURO-85 PO (23:48)
[2017-06-09] VITALS (15 sets, daily range): BP systolic 145–184; BP diastolic 71–95; PULSE 58–87; TEMP 36.4–37; O2SAT 91–99; Ht 160 cm; Wt 110.0 kg
[2017-06-09] MEDS ORDERED: ALUMINUM/MAGNESIUM/SIMETH (MAALOX MAX) 30 ML UDC PO PRN (00:15)
[2017-06-09] MEDS ORDERED: ONDANSETRON INJ 2 MG/ML 2 ML VIAL IV PRN (00:15)
[2017-06-09] MEDS ORDERED: ACETAMINOPHEN 325 MG TAB PO PRN (00:15)
[2017-06-09] MEDS ORDERED: MAGNESIUM HYDROXIDE SUSP 30 ML UDC PO PRN ×2 (00:15)
[2017-06-09] MEDS ORDERED: NITROGLYCERIN 0.4 MG SL PER TAB CHARGE SL PRN (00:15)
[2017-06-09] MEDS ORDERED: MoRPHine SULFATE 2 MG/ML CARP IV PRN (00:15)
[2017-06-09] MEDS ORDERED: PHARMACIST DISCHARGE MED REC CONSULT PRN (00:15)
[2017-06-09] MEDS ORDERED: POLYETHYLENE (MIRALAX) 17 GM PACK PO PRN (00:15)
[2017-06-09 00:22] LABS: BASO % 0.9 %; BASO ABS # 0.05 K/uL (0-0.2); EOS ABS # 0.12 K/uL (0-0.5); HEMATOCRIT 38.4 % (37-47); HEMOGLOBIN 11.3 g/dL (12.0-16.0); IG# 0.02 K/uL (0.00-0.02); LYMPH % 30.2 %; LYMPH ABS # 1.77 K/uL (1.2-3.4); MEAN CELL VOLUME 95.8 fL (80-100); MEAN CORPUSCULAR HEMOGLOBIN 28.2 pg (25-34); MEAN CORPUSCULAR HGB CONC 29.4 g/dl (32-36); MEAN PLATELET VOLUME 11.3 fL (7.4-10.4); MONO % 6.1 %; MONO ABS # 0.36 K/uL (0.11-0.59); NEUT % 60.5 %; NEUT ABS # 3.55 K/uL (1.4-6.5); PLATELET COUNT 170 K/uL (130-400); RED CELL DISTRIBUTION WIDTH CV 15.8 % (11.5-14.5); RED CELL DISTRIBUTION WIDTH SD 54.9 fL (36.4-46.3); WHITE BLOOD COUNT 5.87 K/uL (4.8-10.8)
[2017-06-09] MEDS ORDERED: LORAZEPAM 1 MG TAB PO ONE (01:45)
[2017-06-09] MEDS ORDERED: IV FLUIDS COMPLETED PRN (05:30)
--- NOTE | 2017-06-09 05:31 | EMERGENCY ROOM VISIT NOTE ---
History First contact with patient: 22:33 Chief Complaint: WEAKNESS Stated Complaint: WEAKNESS Nursing Triage Summary: Left arm/leg weakness, head pain History of Present Illness The patient is a 77 year old female who presents to the Emergency Room with complaints of left arm and leg tingling and weakness since 5:30 tonight that is pretty much resolved. Patient states her symptoms are improving. Patient states her left side of her face also felt tingly. Patient states she is able to grasp objects and ambulate. She states she's had a TIA in the past. Nothing recent. No history of CVA. Patient denies chest pain, dyspnea, fever, chills, cough, congestion, localized weakness, difficulty speaking, difficulty word finding, recent illness. Review of Systems See HPI for pertinent positives & negatives. A total of 10 systems reviewed and were otherwise negative. Past Medical/Surgical History Medical Problems: (1) Acute and chronic respiratory failure with hypoxia (2) Acute on chronic respiratory failure (3) Diab Zoey Wo Compl, Type Ii Or Unspec Type, Not Uncntrld (4) Diverticulosis Colon (W/O Ment Of Hemorrhage) (5) Hyperlipidemia Nec/Nos (6) Hypertension Nos (7) Left lower lobe pneumonia (8) Obstr Chronic Bronchitis, W (Acute) Exacerbation (9) Paroxysmal a-fib (10) Pneumonia, Organism Nos (11) Pure Hypercholesterolem (12) Symptomatic anemia (13) Tubal Ligation Status Family History Diabetes mellitus FH: cancer (lymphoma, breast cancer) Hypertension Social History Smoking Status: Former Smoker Alcohol Use: none Drug Use: none Marital Status: Housing Status: lives with family Occupation Status: retired Current/Historical Medications Scheduled Amiodarone Hcl (Amiodarone Hcl), 100 MG PO DAILY Aspirin (Aspirin Ec), 81 MG PO DAILY Atorvastatin (Lipitor), 80 MG PO DAILY Budesonide (Inhalation) (Pulmicort Respules 0.25MG/2ML), 0.25 MG NEB BID Buspirone HCl (Buspirone HCl), 15 MG PO TID Diltiazem Hcl Ext Rel (Tiazac), 180 MG PO DAILY Fluticasone Furoate-Vilanterol (Breo Ellipta), 1 PUFF INH DAILY Fluticasone Propionate (Nasal) (Flonase Allergy Relief), 2 SPRAYS BUTCH DAILY Furosemide (Lasix), 10 MG PO DAILY Lactobacillus (Floranex), 1 TAB PO TIDM Mirtazapine Soltab (Remeron Soltab), 30 MG PO DIRECTED Omeprazole (Prilosec), 40 MG PO DAILY Pramipexole Dihydrochloride (Pramipexole Dihydrochlori), 0.5 MG PO HS Trazodone HCl (Trazodone HCl), 200 MG PO HS Venlafaxine Hcl (Effexor Extended Rel), 150 MG PO DAILY Venlafaxine Hcl (Effexor Extended Rel), 75 MG PO DAILY Vitamin B Cmplx/Vitc/Folic Ac (Nephrocaps), 1 CAP PO DAILY Vitamin E (Topical) (Vitamin E), 1,000 UNITS PO DAILY Scheduled PRN Magnesium Hydroxide (Milk Of Magnesia), 30 ML PO Q12 PRN for Constipation Physical Exam Vital Signs Date Time Temp Pulse Resp B/P (MAP) Pulse Ox O2 Delivery O2 Flow Rate FiO2 06/08/17 23:31 75 06/08/17 23:28 72 16 162/58 96 Nasal Cannula 4.0 06/08/17 22:25 37.0 18 144/61 98 Nasal Cannula 4.0 Physical Exam VITALS: Vitals are noted on the nurse's note and reviewed by myself. Vital signs hypertensive GENERAL: Pleasant female, in no acute distress, nondiaphoretic, well-developed well-nourished. SKIN: The skin was without rashes, erythema, edema, or bruising. There is no tenting of the skin. Capillary reflex less than 2 seconds. HEAD: Normocephalic atraumatic. EARS: External auditory canals clear, tympanic membranes pearly [place] without erythema or effusion bilaterally. EYES: Pupils equal round and reactive to light and accommodation. Conjunctivae without injection, sclerae without icterus. Extraocular movements intact. NOSE: Patent, turbinates without inflammation or discharge. No sinus tenderness. MOUTH: Mucous membranes moist. Pharynx without erythema or exudate. Uvula midline. Airway patent. Tongue does not deviate. NECK: Supple without nuchal rigidity. No lymphadenopathy. No thyromegaly. Cervical spine is nontender. No JVD. HEART: Regular rate and rhythm LUNGS: Clear to auscultation bilaterally without wheezes, rales or rhonchi. No dullness to percussion. No retractions or accessory muscle use. ABDOMEN: Positive bowel sounds x 4. Normal tympanic percussion. Soft, nontender, without masses or organomegaly. Powers sign negative. No guarding or rebound tenderness. MUSCULOSKELETAL: No muscle atrophy, erythema, or edema noted. NEURO: Patient was alert and oriented to person place and time. Normal sensation to light and sharp touch. No focal neurological deficits. Cranial nerves II through XII grossly intact. No pronator drift. Cerebellar exam intact. 5 out of 5 strength throughout Medical Decision & Procedures Laboratory Results 06/08/17 21:35 Red Blood Count 4.01, Mean Corpuscular Volume 95.8, Mean Corpuscular Hemoglobin 28.2, Mean Corpuscular Hemoglobin Concent 29.4, Mean Platelet Volume 11.3, Neutrophils (%) (Auto) 60.5, Lymphocytes (%) (Auto) 30.2, Monocytes (%) (Auto) 6.1, Eosinophils (%) (Auto) 2.0, Basophils (%) (Auto) 0.9, Neutrophils # (Auto) 3.55, Lymphocytes # (Auto) 1.77, Monocytes # (Auto) 0.36, Eosinophils # (Auto) 0.12, Basophils # (Auto) 0.05 06/08/17 21:35 Test 06/08/17 21:35 06/08/17 23:25 White Blood Count 5.87 K/uL (4.8-10.8) Red Blood Count 4.01 M/uL (4.2-5.4) Hemoglobin 11.3 g/dL (12.0-16.0) Hematocrit 38.4 % (37-47) Mean Corpuscular Volume 95.8 fL (80-100) Mean Corpuscular Hemoglobin 28.2 pg (25-34) Mean Corpuscular Hemoglobin Concent 29.4 g/dl (32-36) Platelet Count 170 K/uL (130-400) Mean Platelet Volume 11.3 fL (7.4-10.4) Neutrophils (%) (Auto) 60.5 % Lymphocytes (%) (Auto) 30.2 % Monocytes (%) (Auto) 6.1 % Eosinophils (%) (Auto) 2.0 % Basophils (%) (Auto) 0.9 % Neutrophils # (Auto) 3.55 K/uL (1.4-6.5) Lymphocytes # (Auto) 1.77 K/uL (1.2-3.4) Monocytes # (Auto) 0.36 K/uL (0.11-0.59) Eosinophils # (Auto) 0.12 K/uL (0-0.5) Basophils # (Auto) 0.05 K/uL (0-0.2) RDW Standard Deviation 54.9 fL (36.4-46.3) RDW Coefficient of Variation 15.8 % (11.5-14.5) Immature Granulocyte % (Auto) 0.3 % Immature Granulocyte # (Auto) 0.02 K/uL (0.00-0.02) Prothrombin Time 9.6 SECONDS (9.0-12.0) Prothromb Time International Ratio 0.9 (0.9-1.1) Activated Partial Thromboplast Time 22.9 SECONDS (21.0-31.0) Partial Thromboplastin Ratio 0.9 Anion Gap 2.0 mmol/L (3-11) Est Creatinine Clear Calc Drug Dose 69.4 ml/min Estimated GFR () 79.9 Estimated GFR (Non- 69.0 BUN/Creatinine Ratio 14.3 (10-20) Calcium Level 8.9 mg/dl (8.5-10.1) Magnesium Level 2.0 mg/dl (1.8-2.4) Total Bilirubin 0.4 mg/dl (0.2-1) Direct Bilirubin < 0.1 mg/dl (0-0.2) Aspartate Amino Transf (AST/SGOT) 21 U/L (15-37) Alanine Aminotransferase (ALT/SGPT) 19 U/L (12-78) Alkaline Phosphatase 145 U/L (45-117) Total Creatine Kinase 69 U/L (26-192) Creatine Kinase MB 2.2 ng/ml (0.5-3.6) Creatine Kinase MB Ratio 3.2 (0-3.0) Troponin I < 0.015 ng/ml (0-0.045) Total Protein 7.0 gm/dl (6.4-8.2) Albumin 3.2 gm/dl (3.4-5.0) Urine Color ORANGE Urine Appearance CLOUDY (CLEAR) Urine pH 8.0 (4.5-7.5) Urine Specific [place] 1.013 (1.000-1.030) Urine Protein NEG (NEG) Urine Glucose (UA) TRACE (NEG) Urine Ketones NEG (NEG) Urine Occult Blood 3+ (NEG) Urine Nitrite NEG (NEG) Urine Bilirubin NEG (NEG) Urine Urobilinogen NEG (NEG) Urine Leukocyte Esterase SMALL (NEG) Urine WBC (Auto) 5-10 /hpf (0-5) Urine RBC (Auto) >30 /hpf (0-4) Urine Hyaline Casts (Auto) 1-5 /lpf (0-5) Urine Epithelial Cells (Auto) >30 /lpf (0-5) Urine Bacteria (Auto) NEG (NEG) Medications Administered Medications (Trade) Dose Ordered Sig/Buddy Route Start Time Stop Time Status Last Admin Dose Admin Sodium Chloride 1,000 ml @ 50 mls/hr Q20H IV 06/08/17 22:48 06/09/17 02:39 DC 06/08/17 22:48 50 MLS/HR ED Course Prior records/ancillary studies reviewed and summarized above. Nursing notes reviewed. Additional history obtained from family. The patient's history was concerning for left-sided weakness that is improving. Differential diagnosis: Etiologies such as metabolic, infection, hypo/hyperglycemia, electrolyte abnormalities, cardiac sources, intracerebral event, toxicologic, neurologic, as well as others were entertained. Physical examination: As above. ER treatment provided: IV Lock On reassessment the patient felt better. Diagnostics interpretation by me: ECG: Normal sinus, normal intervals, poor baseline, no acute ST-T wave changes, rate of 77. Impression normal sinus rhythm interpreted by myself The labs revealed mild hyperglycemia without DKA. Negative troponin Imaging studies: Head CT negative for intracranial bleed per radiology Consultation: A consultation was placed with the hospitalist, Dr. Fairchild and resident. The case was discussed and diagnostics were reviewed. The patient was evaluated in the ER for further treatment. Exam and history seem consistent with TIA. Patient symptoms have resolved. She will be evaluated by medicine for possible admission. Patient had a negative head CT. She no deficits on exam and is well-appearing. Mild hyperglycemia without DKA. Negative urine.By the evaluation outlined above emergent etiologies such as infection, electrolyte abnormalities, cardiac sources, intracerebral event, toxologic metabolic, as well as others were deemed relatively unlikely. The pt informed about the findings as listed above. All questions were answered and pleased with the treatment. Case reviewed with my attending Medical Decision As above Blood Pressure Screening Patient's blood pressure: Elevated blood pressure Blood pressure disposition: Elevated BP felt to be situational Impression Primary Impression: TIA (transient ischemic attack) Additional Impression: Anemia Departure Information Dispostion Still a Patient Condition FAIR Referrals Ray Pereira III, CRNP (PCP) Forms HOME CARE DOCUMENTATION FORM, IMPORTANT VISIT INFORMATION Patient Instructions My [facility] Problem Qualifiers Primary Impression: TIA (transient ischemic attack) Transient cerebral ischemia type: unspecified Qualified Codes: G45.9 - Transient cerebral ischemic attack, unspecified
--- NOTE | 2017-06-09 05:58 | History and Physical ---
History & Physical Date & Time of Service: Jun 09, 2017 at 05:42 Chief Complaint: Weakness Primary Care Physician: Ray Pereira III, CRNP History of Present Illness Source: patient, hospital records This is a 77 yo f that has a history of CHF with preserved EF, O2 dependent COPD , PAF that is presenting to us with worsening left sided upper and lower extremity weakness. The patient was sitting in a chair when she suddenly had a "funny feeling" flash across her face and then she developed left upper and lower entire extremity numbness and very mild weakness. She states that an EMS was called and since arrival her weakness has essentially completely resolved however just some residual numbness sensation in her hand. She has no history of CVA or DC but notes a remote history of a TIA in 2013. Denies any presyncope / syncope/ chest pain or SOB associated with this episode. Past Medical/Surgical History DMII - diet controlled Diastolic CHF COPD, oxygen dependent HLD CAD/ HTN Anxiety/ depression TIA PAF Family History Diabetes mellitus FH: cancer (lymphoma, breast cancer) Hypertension Social History Smoking Status: Former Smoker Smokeless Tobacco Use: No Alcohol Use: none Drug Use: none Marital Status: Housing status: lives with family Occupational Status: retired Immunizations History of Influenza Vaccine: Yes Influenza Vaccine Date: Apr 12, 2013 History of Tetanus Vaccine?: Unknown Tetanus Immunization Date: Nov 09, 2007 History of Pneumococcal: Yes Pneumococcal Date: Mar 10, 2011 History of Hepatitis B Vaccine: No Multi-Drug Resistant Organisms History of MDRO: No Allergies Coded Allergies: Mushroom (Verified Allergy, Unknown, 06/08/17) Theophyllines (Verified Allergy, Unknown, Unknown, 06/08/17) Reported by daughter and listed in [facility] [place] record. Codeine (Verified Adverse Reaction, Severe, HYPERVENTILATES, 06/08/17) Morphine (Verified Adverse Reaction, Severe, Causes Afib, 06/08/17) Home Medications Scheduled Amiodarone Hcl (Amiodarone Hcl), 100 MG PO DAILY Aspirin (Aspirin Ec), 81 MG PO DAILY Atorvastatin (Lipitor), 80 MG PO DAILY Budesonide (Inhalation) (Pulmicort Respules 0.25MG/2ML), 0.25 MG NEB BID Buspirone HCl (Buspirone HCl), 15 MG PO TID Diltiazem Hcl Ext Rel (Tiazac), 180 MG PO DAILY Fluticasone Furoate-Vilanterol (Breo Ellipta), 1 PUFF INH DAILY Fluticasone Propionate (Nasal) (Flonase Allergy Relief), 2 SPRAYS BUTCH DAILY Furosemide (Lasix), 10 MG PO DAILY Lactobacillus (Floranex), 1 TAB PO TIDM Mirtazapine Soltab (Remeron Soltab), 30 MG PO DIRECTED Omeprazole (Prilosec), 40 MG PO DAILY Pramipexole Dihydrochloride (Pramipexole Dihydrochlori), 0.5 MG PO HS Trazodone HCl (Trazodone HCl), 200 MG PO HS Venlafaxine Hcl (Effexor Extended Rel), 150 MG PO DAILY Venlafaxine Hcl (Effexor Extended Rel), 75 MG PO DAILY Vitamin B Cmplx/Vitc/Folic Ac (Nephrocaps), 1 CAP PO DAILY Vitamin E (Topical) (Vitamin E), 1,000 UNITS PO DAILY Scheduled PRN Magnesium Hydroxide (Milk Of Magnesia), 30 ML PO Q12 PRN for Constipation Review of Systems Constitutional: No fever, No chills, No sweats Eyes: No worsening of vision, No diplopia ENT: No hearing loss, No tinnitus, No trouble swallowing Respiratory: + dyspnea on exertion (BL), No cough, No sputum, No wheezing, No shortness of breath, No dyspnea at rest, No hemoptysis Cardiovascular: No chest pain Abdomen: No pain, No nausea, No vomiting, No diarrhea, No constipation Musculoskeletal: + problem reported (weakness since resolved), No joint pain, No muscle pain Genitourinary - Female: No dysuria, No hematuria Neurologic: No memory loss, No weakness, No numbness/tingling, No balance problems Psychiatric: + anxiety Endocrine: No fatigue Hematologic / Lymphatic: No abnormal bleeding/bruising Integumentary: No rash Physical Exam Vital Signs Date Time Temp Pulse Resp B/P (MAP) Pulse Ox O2 Delivery O2 Flow Rate FiO2 06/09/17 03:32 36.9 82 20 159/78 95 Nasal Cannula 4.0 06/09/17 01:45 80 16 154/66 95 Nasal Cannula 4.0 06/09/17 00:29 78 20 151/59 Nasal Cannula 4.0 06/08/17 23:31 75 06/08/17 23:28 72 16 162/58 96 Nasal Cannula 4.0 06/08/17 22:25 37.0 18 144/61 98 Nasal Cannula 4.0 General Appearance: no apparent distress, + obese Head: normocephalic, atraumatic Eyes: normal inspection, PERRL, EOMI, sclerae normal ENT: normal ENT inspection, hearing grossly normal Neck: supple Respiratory/Chest: normal breath sounds, no respiratory distress, no accessory muscle use, + decreased breath sounds (bilat bases) Cardiovascular: regular rate, rhythm, no murmur, normal peripheral pulses Abdomen/GI: normal bowel sounds, non tender, soft Back: normal inspection, no CVA tenderness, normal range of motion Extremities/Musculoskelatal: normal inspection, no calf tenderness, + pedal edema (+2 bilat, ASHLEE stockings are on) Neurologic/Psych: medical practice manager II-XII nml as tested, no motor/sensory deficits, alert, normal mood/affect, oriented x 3, + pertinent finding (no pronator drift, patellar DTR +2 bilat, no babinski or ) Skin: normal color, warm/dry, no rash Lymphatic: no adenopathy Diagnostics Laboratory Results Results Past 24 Hours Test 06/08/17 21:35 06/08/17 23:25 Range/Units White Blood Count 5.87 4.8-10.8 K/uL Red Blood Count 4.01 4.2-5.4 M/uL Hemoglobin 11.3 12.0-16.0 g/dL Hematocrit 38.4 37-47 % Mean Corpuscular Volume 95.8 80-100 fL Mean Corpuscular Hemoglobin 28.2 25-34 pg Mean Corpuscular Hemoglobin Concent 29.4 32-36 g/dl Platelet Count 170 130-400 K/uL Mean Platelet Volume 11.3 7.4-10.4 fL Neutrophils (%) (Auto) 60.5 % Lymphocytes (%) (Auto) 30.2 % Monocytes (%) (Auto) 6.1 % Eosinophils (%) (Auto) 2.0 % Basophils (%) (Auto) 0.9 % Neutrophils # (Auto) 3.55 1.4-6.5 K/uL Lymphocytes # (Auto) 1.77 1.2-3.4 K/uL Monocytes # (Auto) 0.36 0.11-0.59 K/uL Eosinophils # (Auto) 0.12 0-0.5 K/uL Basophils # (Auto) 0.05 0-0.2 K/uL RDW Standard Deviation 54.9 36.4-46.3 fL RDW Coefficient of Variation 15.8 11.5-14.5 % Immature Granulocyte % (Auto) 0.3 % Immature Granulocyte # (Auto) 0.02 0.00-0.02 K/uL Prothrombin Time 9.6 9.0-12.0 SECONDS Prothromb Time International Ratio 0.9 0.9-1.1 Activated Partial Thromboplast Time 22.9 21.0-31.0 SECONDS Partial Thromboplastin Ratio 0.9 Sodium Level 140 136-145 mmol/L Potassium Level 3.9 3.5-5.1 mmol/L Chloride Level 100 98-107 mmol/L Carbon Dioxide Level 38 21-32 mmol/L Anion Gap 2.0 3-11 mmol/L Blood Urea Nitrogen 12 7-18 mg/dl Creatinine 0.83 0.60-1.20 mg/dl Est Creatinine Clear Calc Drug Dose 69.4 ml/min Estimated GFR () 79.9 Estimated GFR (Non- 69.0 BUN/Creatinine Ratio 14.3 10-20 Random Glucose 215 70-99 mg/dl Calcium Level 8.9 8.5-10.1 mg/dl Magnesium Level 2.0 1.8-2.4 mg/dl Total Bilirubin 0.4 0.2-1 mg/dl Direct Bilirubin < 0.1 0-0.2 mg/dl Aspartate Amino Transf (AST/SGOT) 21 15-37 U/L Alanine Aminotransferase (ALT/SGPT) 19 12-78 U/L Alkaline Phosphatase 145 45-117 U/L Total Creatine Kinase 69 26-192 U/L Creatine Kinase MB 2.2 0.5-3.6 ng/ml Creatine Kinase MB Ratio 3.2 0-3.0 Troponin I < 0.015 0-0.045 ng/ml Total Protein 7.0 6.4-8.2 gm/dl Albumin 3.2 3.4-5.0 gm/dl Urine Color ORANGE Urine Appearance CLOUDY CLEAR Urine pH 8.0 4.5-7.5 Urine Specific Osteen 1.013 1.000-1.030 Urine Protein NEG NEG Urine Glucose (UA) TRACE NEG Urine Ketones NEG NEG Urine Occult Blood 3+ NEG Urine Nitrite NEG NEG Urine Bilirubin NEG NEG Urine Urobilinogen NEG NEG Urine Leukocyte Esterase SMALL NEG Urine WBC (Auto) 5-10 0-5 /hpf Urine RBC (Auto) >30 0-4 /hpf Urine Hyaline Casts (Auto) 1-5 0-5 /lpf Urine Epithelial Cells (Auto) >30 0-5 /lpf Urine Bacteria (Auto) NEG NEG Microbiology Results 06/08/17 Urine Culture, Received Pending Diagnostic Radiology ct head- no acute changes per stat rad only chronic small vessel ischemic changes EKG Normal sinus rhythm Possible Left atrial enlargement Possible Inferior infarct , age undetermined Abnormal ECG When compared with ECG of 25-APR-2017 08:31, No significant change was found 72 Impression Assessment and Plan This is a 77 yo f with a h/o COPD, TIA, CHF that presents to us with acute left sided weakness concerning for TIA vs stroke Stroke assessment with remote h/o TIA - tele obs - consult neuro - neurochecks - Pt/OT/speech - HBA1c and FLP in am MRI brain and carotid doppler - echo 09/28: --> repeat echo up to the discretion of day team * The left ventricle is hyperdynamic. * No regional wall motion abnormalities noted. * Ejection Fraction = >70 %. * There is mild concentric left ventricular hypertrophy. * Grade I diastolic dysfunction, (abnormal relaxation pattern). * There is mild tricuspid regurgitation. CHF- stable/ HTN/ PAF - continue ASA 81 mg - continue amio 100 mg daily, diltiazem 180 mg daily and lasix 20 mg daily - continue Atorvastatin 80 mg - did not determine why patient is without anticoag during initial assessment COPD- stable - continue Ellipta bid Anxiety/ depression - continue buspar 15 mg tid, venlafaxine and remeron 30 mg Gerd - continue Prilosec 40 mg DVT Prophy SCD FULL CODE Attending addendum: I have physically seen this patient, have supervised the medical residents activities, and agree with the H&P unless as otherwise noted. Assessment and Plan: Resolved acute episode of left-sided weakness-- The patient will be admitted to telemetry for serial cardiac enzymes, serial EKG's, and cardiac rhythm monitoring. CT of the head was negative for acute findings, but did show chronic small vessel disease Neuro checks Order carotid Dopplers, and MRI of brain Consult PT/OT/social insurance analyst CAD/hypertension/PAF/stable CHF-- Continue aspirin 81 mg daily, amiodarone 100 mg daily, diltiazem CD 180 mg daily Hold Lasix 20 mg daily Hyperlipidemia-- Continue atorvastatin 80 mg daily Anxiety with depression-- Continue BuSpar 15 mg by mouth 3 times a day, Remeron 30 mg at bedtime and venlafaxine Level of Care Telemetry Advanced Directives Existing Advance Directive: No Existing Living Will: No Existing Power of Hydrography Teacher: No Resuscitation Status FULL RESUSCITATION VTE Prophylaxis VTE Risk Assessment Done? Y/N: Yes Risk Level: Moderate Given or contraindicated: SCD's Social Service Consult None Apply Note Total Time: Critical Care 30 - 74 minutes Additional Copies To Ray Pereira III, CRNP
[2017-06-09 06:19] LABS: HEMATOCRIT 34.2 % (37-47); MEAN CORPUSCULAR HEMOGLOBIN 27.8 pg (25-34); MEAN CORPUSCULAR HGB CONC 29.2 g/dl (32-36); MEAN PLATELET VOLUME 10.9 fL (7.4-10.4); PLATELET COUNT 144 K/uL (130-400); RED CELL DISTRIBUTION WIDTH CV 15.8 % (11.5-14.5); RED CELL DISTRIBUTION WIDTH SD 54.6 fL (36.4-46.3); WHITE BLOOD COUNT 5.63 K/uL (4.8-10.8)
[2017-06-09 06:36] LABS: HEMOGLOBIN A1C 8.7 % (4.5-5.6)
[2017-06-09 07:01] LABS: CALCIUM 8.1 mg/dl (8.5-10.1); CREATININE 0.67 mg/dl (0.60-1.20); POTASSIUM 3.6 mmol/L (3.5-5.1)
--- NOTE | 2017-06-09 07:07 | DIAGNOSTIC IMAGING REPORT ---
CT SCAN OF THE BRAIN WITHOUT IV CONTRAST CLINICAL HISTORY: Strokelike symptoms. COMPARISON STUDY: CT of the brain dated 04/24/2014. TECHNIQUE: Unenhanced axial CT scan of the brain is performed from the vertex to the skull base. A dose lowering technique was utilized adhering to the principles of ALARA. CT DOSE: 537.48 mGy.cm FINDINGS: Brain parenchyma: There are age-related involutional changes noting mild subcortical and periventricular microangiopathic change. There is no hemorrhage, mass effect, or evidence of acute territorial ischemia by CT criteria. Salgado-white matter is preserved. No extra-axial fluid collection is seen. Ventricles, sulci, cisterns: Prominent secondary to involutional change. Intracranial vasculature: There is atherosclerotic calcification of the cavernous carotid and vertebral arteries. Calvarium: Unremarkable. Sinuses and mastoids: The visualized paranasal sinuses are clear. There are bilateral mastoid effusions, left larger than right. Orbits: The bony orbits are grossly intact. There are bilateral ocular lens implants. IMPRESSION: There is no hemorrhage, mass effect, or evidence of acute territorial ischemia by CT criteria. Electronically signed by: Jose Zazueta M.D. 06/09/2017 7:06 AM Dictated Date/Time: 06/09/2017 7:04 AM
[2017-06-09] MEDS: BUDESONIDE 0.25 MG/2 ML VIAL (PULMICORT) INH SCH ×2 (07:09→19:19)
--- NOTE | 2017-06-09 07:25 | DIAGNOSTIC IMAGING REPORT ---
CAROTID ARTERY ULTRASOUND CLINICAL HISTORY: Transient ischemic attack. COMPARISON STUDY: Carotid ultrasound April 25, 2014. TECHNIQUE: Real-time, grayscale, and color Doppler sonography of the carotid and vertebral arteries was performed. Images were viewed in the transverse and longitudinal planes. FINDINGS: There is mild to moderate atherosclerotic plaque. Velocity measurements are listed below. COMMON CAROTID PEAK SYSTOLIC VELOCITY (CM/S): RIGHT 91 LEFT 89 ICA PEAK SYSTOLIC VELOCITY (CM/S): RIGHT 105 LEFT 94 The systolic ratios between the internal to common carotid arteries were normal. Antegrade flow is seen in the vertebral arteries. The external carotid arteries are patent. Blood pressures were not obtained due to limitations. IMPRESSION: No evidence of a hemodynamically significant stenosis. Electronically signed by: Marco Mccall M.D. 06/09/2017 7:24 AM Dictated Date/Time: 06/09/2017 7:22 AM
[2017-06-09] MEDS ORDERED: MICONAZOLE NITRATE POWDER 43 GM EXT PRN (08:30)
[2017-06-09] MEDS ORDERED: VITAMIN E 1000 UNIT PO SCH (09:00)
[2017-06-09] MEDS: LACTOBACILLUS ACIDOPHILUS (FLORANEX) TAB PO SCH ×3 (09:36→17:36)
[2017-06-09] MEDS: FLUTICASONE PROPIONATE NA SPR 16 GM BTL NAE SCH (09:36)
[2017-06-09] MEDS: FUROSEMIDE 20 MG TAB PO SCH (09:37)
[2017-06-09] MEDS: ASPIRIN 81 MG ECTAB PO SCH (09:37)
[2017-06-09] MEDS: ATORVASTATIN 40 MG TAB PO SCH (09:37)
[2017-06-09] MEDS: VENLAFAXINE HCL XR 75 MG CAPXR PO SCH (09:37)
[2017-06-09] MEDS: AMIODARONE 200 MG TAB PO SCH (09:38)
[2017-06-09] MEDS: NEPHROCAPS PO SCH (09:38)
[2017-06-09] MEDS: DILTIAZEM HCL (TIAzac) 180 MG CAPCR PO SCH (09:38)
[2017-06-09] MEDS: PANTOprazole SOD 40 MG TAB PO SCH (09:38)
[2017-06-09] MEDS: VENLAFAXINE HCL XR 150 MG CAPXR PO SCH (09:38)
[2017-06-09] MEDS: BusPIRone 15 MG TAB PO SCH ×3 (09:38→21:12)
[2017-06-09] MEDS: [UNRECOGNIZED DRUG - OTHER] PO SCH ×2 (09:39)
--- NOTE | 2017-06-09 09:40 | Neurology Consultation ---
Neurology Consultation Date of Consultation: Jun 09, 2017. Attending Physician: Vel Palomino M.D. Primary Care Physician: Ray Pereira III, CRNP Reason for Consultation: TIA-like symptoms History of Present Illness Source: patient, hospital records This is a 77-year-old right-handed female who presents for sudden weakness and numbness on the left side of her body. Reportedly occurred around 4:30 PM but by the time she got to the emergency room at 9 PM was mostly resolved. She reports that it occurred suddenly. Was whole left side of her body. Left side felt numb and heavy/week but she was still able to move everything. She denied any headaches in association. No visual changes. No changes with her speech or swallowing. No changes with her walking. No chest pain. She did have a few heart palpitations that she experienced with the episode. She did feel more short of breath after words. In addition the patient does note that she is been having 5-6 months of left lower extremity swelling and discomfort. Sometimes feels like it's weak. Denies any specific back pain or radiculopathy type pain. Was evaluated in the emergency room recently with Doppler that did not show any DVT at that time. She reports since her initial left leg swelling she not have swelling in both bilateral lower extremities with some discomfort. Per extensive review of the patient's chart it appears she's had similar symptoms multiple times in the past. In 2004 the patient had left hemiplegia and was placed on Plavix for presumed TIA. In 2007 she again had a left upper cavity weakness. 2008 she had left-sided numbness and was placed on aspirin and Plavix. In 2013 she had another TIA evaluation due to left-sided numbness and weakness. Her MRI was normal with no signs of acute or chronic strokes. MRI of her brain report and images from 2014 was reviewed by myself. MRA of the neck and brain also was unremarkable with no critical stenosis. There was some concern by Dr. Mason with a previous examination of left-sided numbness that she seemed to split midline which could be psychogenic. June 2013 patient was noted to have a single episode of A. fib. There does not appear to be any other documentation of A. fib episodes. The patient did have an event monitor in September 2013 that appeared unremarkable. Patient was cardioverted and rate controlled with no documented recurrence. In the very 2016 due to symptoms of palpitations the patient was started on Xarelto by her public service representative for concerns that she may have recurrent A. fib. In October 2016 she was evaluated for anemia and acute GI bleed with heme positive stools. She was seen by GI and was scoped with no source of GI bleed found. Patient was taken off Xarelto at that time and placed back on aspirin. Patient reports that she's had previous GI bleed in the past but uncertain what medication she was on at that time that may contributed. On review of systems the patient reports that she still feels short of breath this morning but otherwise is at her neurological baseline. Ultrasound of the carotids was unremarkable. Total cholesterol 127, LDL 55, HDL 48, triglycerides 120, hemoglobin A1c 8.7 Past Medical/Surgical History Medical Problems: (1) Acute on chronic respiratory failure with hypoxia and hypercapnia Status: Acute (2) Anemia Status: Acute (3) Anemia Status: Acute (4) Anemia Status: Acute (5) Anemia Status: Acute (6) Bronchitis Status: Acute (7) COPD with exacerbation Status: Acute (8) GI bleed Status: Acute (9) GI bleed Status: Acute (10) Hypokalemia Status: Acute (11) Respiratory failure Status: Acute (12) Sepsis Status: Acute (13) SOB (shortness of breath) Status: Acute (14) TIA (transient ischemic attack) Status: Acute Past medical history significant for a single episode of A. fib, COPD, dyslipidemia, CAD, hypertension, depression/anxiety, diet-controlled diabetes, and chart in the past is also noted lumbar stenosis although the patient does not endorse at this time Family History Family history significant for mother with lung cancer and father with prostate cancer. No family history of strokes or heart attacks Father: cancer Mother: cancer Social History Patient is normally independent in her activities of daily living. Remote tobacco history use for 50 years but no current tobacco use. No alcohol use. Smoking Status: Former smoker Smokeless Tobacco Use: No Alcohol Use: none Drug Use: none Marital Status: Housing Status: lives with family Occupation Status: retired Allergies Coded Allergies: Mushroom (Verified Allergy, Unknown, 06/08/17) Theophyllines (Verified Allergy, Unknown, Unknown, 06/08/17) Reported by daughter and [place] [facility] [place]. Codeine (Verified Adverse Reaction, Severe, HYPERVENTILATES, 06/08/17) Morphine (Verified Adverse Reaction, Severe, Causes Afib, 06/08/17) Current Inpatient Medications Current Inpatient Medications Medications (Trade) Dose Ordered Sig/Buddy Route Start Time Stop Time Status Last Admin Dose Admin Miscellaneous Information (Pharmacist Discharge Med Rec Consult) 1 ea UD PRN N/A 06/09/17 00:15 07/09/17 00:14 Acetaminophen (Tylenol Tab) 650 mg Q4H PRN PO 06/09/17 00:15 07/09/17 00:14 Al Hydrox/Mg Hydrox/Simethicone (Maalox Max Susp) 15 ml Q4H PRN PO 06/09/17 00:15 07/09/17 00:14 Magnesium Hydroxide (Milk Of Magnesia Susp) 30 ml Q12H PRN PO 06/09/17 00:15 07/09/17 00:14 Ondansetron HCl (Zofran Inj) 4 mg Q6H PRN IV 06/09/17 00:15 07/09/17 00:14 Nitroglycerin (Nitrostat Tab) 0.4 mg UD PRN SL 06/09/17 00:15 07/09/17 00:14 Morphine Sulfate (MoRPHine SULFATE INJ) 2 mg Q30M PRN IV 06/09/17 00:15 06/23/17 00:14 Future Hold Polyethylene (Miralax Powder Packet) 17 gm DAILY PRN PO 06/09/17 00:15 07/09/17 00:14 Aspirin (Ecotrin Tab) 81 mg DAILY PO 06/09/17 09:00 07/09/17 08:59 Atorvastatin Calcium (Lipitor Tab) 80 mg DAILY PO 06/09/17 09:00 07/09/17 08:59 Budesonide (Pulmicort Respules 0.25MG/ 2ML Neb Soln) 0.25 mg BIDR INH 06/09/17 08:00 07/09/17 07:59 06/09/17 07:09 0.25 MG Buspirone HCl (BusPAR TAB) 15 mg TID PO 06/09/17 09:00 07/09/17 08:59 Diltiazem HCl (TIAzac CAP) 180 mg DAILY PO 06/09/17 09:00 07/09/17 08:59 Fluticasone Propionate (Flonase Nasal [place]) 2 sprays DAILY BUTCH 06/09/17 09:00 07/09/17 08:59 Furosemide (Lasix Tab) 10 mg DAILY PO 06/09/17 09:00 07/09/17 08:59 Lactobacillus Acidophilus (Floranex Tab) 1 tab TIDM PO 06/09/17 08:00 07/09/17 07:59 Pramipexole Dihydrochloride (miraPEX TAB) 0.5 mg HS PO 06/09/17 21:00 07/09/17 20:59 Trazodone HCl (Desyrel Tab) 200 mg HS PO 06/09/17 21:00 07/09/17 20:59 Venlafaxine HCl (effeXOR EXTENDED REL CAP) 75 mg DAILY PO 06/09/17 09:00 07/09/17 08:59 Venlafaxine HCl (effeXOR EXTENDED REL CAP) 150 mg DAILY PO 06/09/17 09:00 07/09/17 08:59 Vitamin B Complex/ Vit C/Folic Acid (Nephrocaps) 1 cap DAILY PO 06/09/17 09:00 07/09/17 08:59 Amiodarone HCl (Cordarone Tab) 100 mg DAILY PO 06/09/17 09:00 07/09/17 08:59 Miscellaneous Information (Order Awaiting Action) 1 ea QS N/A 06/09/17 08:00 07/09/17 07:59 Miscellaneous Information (Order Awaiting Action) 1 ea QS N/A 06/09/17 08:00 07/09/17 07:59 Pantoprazole Sodium (Protonix Tab) 40 mg DAILY PO 06/09/17 09:00 07/09/17 08:59 bi-Bqvts-Ehoerwmccs Acetate (Vitamin E Cap) 1,000 interunit DAILY PO 06/09/17 09:00 07/09/17 08:59 Miscellaneous (Iv Fluids Completed) 1 ea PRN PRN N/A 06/09/17 05:30 06/09/18 05:29 Miconazole Nitrate (Desenex Powder) 1 appln BID PRN EXT 06/09/17 08:30 07/09/17 08:29 Physical Exam Vital Signs (Past 24 Hrs): Date Time Temp Pulse Resp B/P (MAP) Pulse Ox O2 Delivery O2 Flow Rate FiO2 06/09/17 08:26 37.0 87 18 157/71 (99) 95 Nasal Cannula 4.0 06/09/17 07:37 36.9 58 20 184/81 (115) 99 4.0 06/09/17 07:30 99 4.0 06/09/17 07:12 86 16 91 Nasal Cannula 4.0 06/09/17 04:30 36.9 80 20 146/80 (102) 96 4.0 06/09/17 03:32 36.9 82 20 159/78 95 Nasal Cannula 4.0 06/09/17 01:45 80 16 154/66 95 Nasal Cannula 4.0 06/09/17 00:29 78 20 151/59 Nasal Cannula 4.0 06/08/17 23:31 75 06/08/17 23:28 72 16 162/58 96 Nasal Cannula 4.0 06/08/17 22:25 37.0 18 144/61 98 Nasal Cannula 4.0 Gen.: Patient is alert and oriented in no acute distress lying in bed Heart: Regular rate and rhythm Extremities: No gross deformities or rashes noted. Bilateral lower extremity edema noted Neurological examination: Mental status: Patient is alert and oriented to person place and time. Able to give his own history. Attention concentration normal for the situation. Remote and recent memory intact Speech is fluent without any dysarthria or aphasia noted Cranial nerves: Funduscopic examination was difficult to visualize. Pupils equally round and reactive to light. Extraocular muscles intact without nystagmus. No facial asymmetry noted. Facial sensation intact. Tongue midline. Good palatal elevation. Good shoulder shrug bilaterally. Hearing grossly intact voice. Strength: 5/5 both proximal and distal in all extremities. There is no arm drift .Tone is normal. Sensation: Grossly intact to light touch in all extremities Deep tendon reflexes: +1 in bilateral biceps and patellar. Toes were upgoing to plantar stimulation on the right but not the left Coordination: Patient has good finger to nose without dysmetria. Station within the bed is normal. Laboratory Results Past 24 Hours: 06/09/17 06:02 06/09/17 06:02 Test 06/08/17 21:35 06/08/17 23:25 06/09/17 06:02 Immature Granulocyte % (Auto) 0.3 % White Blood Count 5.87 K/uL (4.8-10.8) Red Blood Count 4.01 M/uL (4.2-5.4) 3.60 M/uL (4.2-5.4) Hemoglobin 11.3 g/dL (12.0-16.0) Hematocrit 38.4 % (37-47) Mean Corpuscular Volume 95.8 fL (80-100) 95.0 fL (80-100) Mean Corpuscular Hemoglobin 28.2 pg (25-34) 27.8 pg (25-34) Mean Corpuscular Hemoglobin Concent 29.4 g/dl (32-36) 29.2 g/dl (32-36) Platelet Count 170 K/uL (130-400) Mean Platelet Volume 11.3 fL (7.4-10.4) 10.9 fL (7.4-10.4) Neutrophils (%) (Auto) 60.5 % Lymphocytes (%) (Auto) 30.2 % Monocytes (%) (Auto) 6.1 % Eosinophils (%) (Auto) 2.0 % Basophils (%) (Auto) 0.9 % Neutrophils # (Auto) 3.55 K/uL (1.4-6.5) Lymphocytes # (Auto) 1.77 K/uL (1.2-3.4) Monocytes # (Auto) 0.36 K/uL (0.11-0.59) Eosinophils # (Auto) 0.12 K/uL (0-0.5) Basophils # (Auto) 0.05 K/uL (0-0.2) Immature Granulocyte # (Auto) 0.02 K/uL (0.00-0.02) Prothrombin Time 9.6 SECONDS (9.0-12.0) Prothromb Time International Ratio 0.9 (0.9-1.1) Activated Partial Thromboplast Time 22.9 SECONDS (21.0-31.0) Partial Thromboplastin Ratio 0.9 Estimated Average Glucose 203 mg/dl Hemoglobin A1c 8.7 % (4.5-5.6) Magnesium Level 2.0 mg/dl (1.8-2.4) Total Bilirubin 0.4 mg/dl (0.2-1) Direct Bilirubin < 0.1 mg/dl (0-0.2) Aspartate Amino Transf (AST/SGOT) 21 U/L (15-37) Alanine Aminotransferase (ALT/SGPT) 19 U/L (12-78) Alkaline Phosphatase 145 U/L (45-117) Total Creatine Kinase 69 U/L (26-192) Creatine Kinase MB 2.2 ng/ml (0.5-3.6) Creatine Kinase MB Ratio 3.2 (0-3.0) Troponin I < 0.015 ng/ml (0-0.045) Total Protein 7.0 gm/dl (6.4-8.2) Albumin 3.2 gm/dl (3.4-5.0) Urine Color ORANGE Urine Appearance CLOUDY (CLEAR) Urine pH 8.0 (4.5-7.5) Urine Specific [place] 1.013 (1.000-1.030) Urine Protein NEG (NEG) Urine Glucose (UA) TRACE (NEG) Urine Ketones NEG (NEG) Urine Occult Blood 3+ (NEG) Urine Nitrite NEG (NEG) Urine Bilirubin NEG (NEG) Urine Urobilinogen NEG (NEG) Urine Leukocyte Esterase SMALL (NEG) Urine WBC (Auto) 5-10 /hpf (0-5) Urine RBC (Auto) >30 /hpf (0-4) Urine Hyaline Casts (Auto) 1-5 /lpf (0-5) Urine Epithelial Cells (Auto) >30 /lpf (0-5) Urine Bacteria (Auto) NEG (NEG) RDW Standard Deviation 54.6 fL (36.4-46.3) RDW Coefficient of Variation 15.8 % (11.5-14.5) Anion Gap 2.0 mmol/L (3-11) Est Creatinine Clear Calc Drug Dose 87.0 ml/min Estimated GFR () 99.7 Estimated GFR (Non- 86.0 BUN/Creatinine Ratio 19.9 (10-20) Calcium Level 8.1 mg/dl (8.5-10.1) Triglycerides Level 120 mg/dl (0-150) Cholesterol Level 127 mg/dl (0-200) HDL Cholesterol 48 mg/dl LDL Cholesterol, Calculated 55 mg/dl VLDL Cholesterol, Calculated 24 mg/dl Cholesterol/HDL Ratio 2.6 Imaging As noted above in history of present illness Impression This is a 77-year-old female who presents with acute left-sided numbness and heaviness which resolved over several hours. Patient has had at least 4 episodes previously with similar symptoms. Considering that she has had multiple similar episodes in the past this causes him to question whether she has truly had a vascular event versus a stroke mimic. Differential diagnosis could include focal seizure, versus migraine event, versus psychogenic. Patient does have stroke risk factors including CAD, dyslipidemia, hypertension , and diabetes. If the patient does currently have paroxysmal A. fib this would also be a significant stroke risk factors well. Plan Agree with getting an MRI of the brain for further evaluation. Follow-up echocardiogram results I have ordered a CTA of her head and neck for further evaluation of strokelike symptoms I have also ordered an EEG to evaluate for possible seizure etiology for her recurrent left-sided symptoms. Patient should have her diabetes treated to reduce her vascular risk factors. Can continue aspirin 81 mg daily for now, but if the patient has any signs of cerebrovascular disease or stroke on MRI, would recommend changing antiplatelets to Plavix. In addition also recommend that she follow up with cardiology as an outpatient and consider an event monitor to see if she is still having paroxysmal A. fib as this would put her at high risk for stroke. If she is still having current paroxysmal A. fib, would recommend considering Eliquist anticoagulation as this seems to have lower GI bleeding risk compared to other anticoagulation agents. Follow-up PT/OT and speech therapies for discharge planning. Avoid hypotension and dehydration Stroke risk factor modifications and recommendations: Blood pressure recommendations for the first month post hospital discharge 150/ 90-130/80, and after that blood pressure recommendations 130/80-110/70 Total cholesterol goal 100- 200 and LDL goal less than 70 (at goal) Hemoglobin A1c goal less than 7 Encourage cardiovascular exercise at least 3 times a week for 30 minutes. Follow-up in neurology clinic in 1 month for hospital follow-up. If there is any questions or concerns, feel free to call/page me.
--- NOTE | 2017-06-09 10:27 | Medical Student: [facility] ---
Med Student History & Physical Date & Time of Service: Jun 09, 2017 at 08:29 Chief Complaint: Weakness Primary Care Physician: Ray Pereira III, CRNP History of Present Illness Source: patient, clinic records, hospital records Pt is a 77 yo right handed female who presents with several hours onset of left sided weakness and numbness which has since resolved. Neuro consulted for TIA like sx. Pt noted at 4:30 PM she felt really hot and her face "felt funny" and noticed weakness and numbness diffusely on her left side. She noted that she was still able to move her arms and legs but she felt they were weak and heavy. She denied any CP, FRASER, tinnitus, dysphagia. She did complain of SOB and small amounts of palpitations. When she presented to the ED at 9PM, her sx had mostly resolved. She does note chronic left leg weakness at baseline. She states it got worse 5- 6 months prior when she had edema of her legs b/l. No record of workup in chart. She did come of the ER earlier this mo for workup of right leg pain and DVT was r/o. Currently taking baby Aspirin as only antiplatelet. She has had a trial of Plavix but unknown why it was stopped prior to this incident. Pt noted that once before in 2013 she presented with similar sx and was dx with a TIA. In chart review, pt has had several incidences of left sided weakness or numbness including in 2004, 2007, 2008, 2013. With each of these, imaging including brain MRI and MRA of head and neck were unremarkable. Pt states that she has never had these sx on the right side. Pt did have an incident of atrial fibrillation which had to be cardioverted in early 2013. While she still complains of palpitations, it is not known if she has had other instances of documented atrial fibrillation. She is not on any anticoagulation as she previously had GI bleed on Xarelto. While on tele observation at this hospitalization, she remained in sinus rhythm the entire time. Pt has a hx of diet controlled DM, but presents with an A1c of 8.7. Past Medical/Surgical History Medical Problems: (1) Acute on chronic respiratory failure with hypoxia and hypercapnia Status: Acute (2) Anemia Status: Acute (3) Anemia Status: Acute (4) Anemia Status: Acute (5) Anemia Status: Acute (6) Bronchitis Status: Acute (7) COPD with exacerbation Status: Acute (8) GI bleed Status: Acute (9) GI bleed Status: Acute (10) Hypokalemia Status: Acute (11) Respiratory failure Status: Acute (12) Sepsis Status: Acute (13) SOB (shortness of breath) Status: Acute (14) TIA (transient ischemic attack) Status: Acute Pt has a hx of CHF, oxygen depended COPD, HLD, CAD, HTN, TIA, atrial fibrillation, diet cotrolled DM Family History Per pt, both parents around age 68 Father: cancer (colon) Mother: cancer (lung) Social History Smoking Status: Former Smoker (1.5-2 ppd for 50 years) Smokeless Tobacco Use: No Alcohol Use: none Drug Use: none Marital Status: Housing status: lives with family Occupational Status: retired Immunizations History of Influenza Vaccine: Yes Influenza Vaccine Date: Apr 12, 2013 History of Tetanus Vaccine?: Unknown Tetanus Immunization Date: Nov 09, 2007 History of Pneumococcal: Yes Pneumococcal Date: Mar 10, 2011 History of Hepatitis B Vaccine: No Allergies Coded Allergies: Mushroom (Verified Allergy, Unknown, 06/08/17) Theophyllines (Verified Allergy, Unknown, Unknown, 06/08/17) Reported by daughter and listed in [facility] record. Codeine (Verified Adverse Reaction, Severe, HYPERVENTILATES, 06/08/17) Morphine (Verified Adverse Reaction, Severe, Causes Afib, 06/08/17) Medications Amiodarone Hcl (Amiodarone Hcl), 100 MG PO DAILY Aspirin (Aspirin Ec), 81 MG PO DAILY Atorvastatin (Lipitor), 80 MG PO DAILY Budesonide (Inhalation) (Pulmicort Respules 0.25MG/2ML), 0.25 MG NEB BID Buspirone HCl (Buspirone HCl), 15 MG PO TID Diltiazem Hcl Ext Rel (Tiazac), 180 MG PO DAILY Fluticasone Furoate-Vilanterol (Breo Ellipta), 1 PUFF INH DAILY Fluticasone Propionate (Nasal) (Flonase Allergy Relief), 2 SPRAYS BUTCH DAILY Furosemide (Lasix), 10 MG PO DAILY Lactobacillus (Floranex), 1 TAB PO TIDM Magnesium Hydroxide (Milk Of Magnesia), 30 ML PO Q12 PRN for Constipation Mirtazapine Soltab (Remeron Soltab), 30 MG PO DIRECTED Omeprazole (Prilosec), 40 MG PO DAILY Pramipexole Dihydrochloride (Pramipexole Dihydrochlori), 0.5 MG PO HS Trazodone HCl (Trazodone HCl), 200 MG PO HS Venlafaxine Hcl (Effexor Extended Rel), 150 MG PO DAILY Venlafaxine Hcl (Effexor Extended Rel), 75 MG PO DAILY Vitamin B Cmplx/Vitc/Folic Ac (Nephrocaps), 1 CAP PO DAILY Vitamin E (Topical) (Vitamin E), 1,000 UNITS PO DAILY Review of Systems Eyes: No worsening of vision, No diplopia ENT: No hearing loss, No tinnitus Respiratory: + shortness of breath Cardiovascular: No chest pain, No palpitations Abdomen: No nausea, No vomiting Neurologic: + weakness, + numbness/tingling, No vertigo Physical Exam Vital Signs (24 Hours) Date Time Temp Pulse Resp B/P (MAP) Pulse Ox O2 Delivery O2 Flow Rate FiO2 06/09/17 07:37 36.9 58 20 184/81 (115) 99 4.0 06/09/17 07:30 99 4.0 06/09/17 07:12 86 16 91 Nasal Cannula 4.0 06/09/17 04:30 36.9 80 20 146/80 (102) 96 4.0 06/09/17 03:32 36.9 82 20 159/78 95 Nasal Cannula 4.0 06/09/17 01:45 80 16 154/66 95 Nasal Cannula 4.0 06/09/17 00:29 78 20 151/59 Nasal Cannula 4.0 06/08/17 23:31 75 06/08/17 23:28 72 16 162/58 96 Nasal Cannula 4.0 06/08/17 22:25 37.0 18 144/61 98 Nasal Cannula 4.0 Neuro Exam: Mental Status: Pt is alert and oriented. No aphasia, dysarthria. Intact repetition and comprehension. Fund of knowledge appropriate. Memory intact. CN: CN2: PERRLA, visual allen full to confrontation CN3,4,6: EOM intact, no ptosis CN5: sensation symmetric in V1-3 distribution to light touch and temperature CN7: smile, eye closure and eyebrow wrinkle symmetric CN8: chronic hearing loss bilaterally (L>R) CN9/10: uvula midline, palate elevates symmetrically CN11: shoulder shrug equal bilaterally CN12: tongue midline Sensation: Sensation intact to light tough and vibration in all 4 extremities. Motor: Muscle bulk and tone normal. No pronator drift. Strength 5/5 in deltoids , triceps and biceps. Strength 5/5 in hip flexors, quadriceps, plantar flexors and extensors. Reflexes: Triceps, biceps, brachioradialis 2+; quadriceps, Achilles 1+; Babinski was upgoing on the right, but downgoing on the left Coordination: FTN and HTS normal without dysmetria (more difficult on the left leg). Rapid alternating movements symmetric. Gait: Romberg negative. Gait is slow, but steady. No difficulty turning. Diagnostics Laboratory Results Results Past 24 Hours Test 06/08/17 21:35 06/08/17 23:25 06/09/17 06:02 Range/Units White Blood Count 5.87 5.63 4.8-10.8 K/uL Red Blood Count 4.01 3.60 4.2-5.4 M/uL Hemoglobin 11.3 10.0 12.0-16.0 g/dL Hematocrit 38.4 34.2 37-47 % Mean Corpuscular Volume 95.8 95.0 80-100 fL Mean Corpuscular Hemoglobin 28.2 27.8 25-34 pg Mean Corpuscular Hemoglobin Concent 29.4 29.2 32-36 g/dl Platelet Count 170 144 130-400 K/uL Mean Platelet Volume 11.3 10.9 7.4-10.4 fL Neutrophils (%) (Auto) 60.5 % Lymphocytes (%) (Auto) 30.2 % Monocytes (%) (Auto) 6.1 % Eosinophils (%) (Auto) 2.0 % Basophils (%) (Auto) 0.9 % Neutrophils # (Auto) 3.55 1.4-6.5 K/uL Lymphocytes # (Auto) 1.77 1.2-3.4 K/uL Monocytes # (Auto) 0.36 0.11-0.59 K/uL Eosinophils # (Auto) 0.12 0-0.5 K/uL Basophils # (Auto) 0.05 0-0.2 K/uL RDW Standard Deviation 54.9 54.6 36.4-46.3 fL RDW Coefficient of Variation 15.8 15.8 11.5-14.5 % Immature Granulocyte % (Auto) 0.3 % Immature Granulocyte # (Auto) 0.02 0.00-0.02 K/uL Prothrombin Time 9.6 9.0-12.0 SECONDS Prothromb Time International Ratio 0.9 0.9-1.1 Activated Partial Thromboplast Time 22.9 21.0-31.0 SECONDS Partial Thromboplastin Ratio 0.9 Sodium Level 140 140 136-145 mmol/L Potassium Level 3.9 3.6 3.5-5.1 mmol/L Chloride Level 100 102 98-107 mmol/L Carbon Dioxide Level 38 36 21-32 mmol/L Anion Gap 2.0 2.0 3-11 mmol/L Blood Urea Nitrogen 12 13 7-18 mg/dl Creatinine 0.83 0.67 0.60-1.20 mg/dl Est Creatinine Clear Calc Drug Dose 69.4 87.0 ml/min Estimated GFR () 79.9 99.7 Estimated GFR (Non- 69.0 86.0 BUN/Creatinine Ratio 14.3 19.9 10-20 Random Glucose 215 183 70-99 mg/dl Estimated Average Glucose 203 mg/dl Hemoglobin A1c 8.7 4.5-5.6 % Calcium Level 8.9 8.1 8.5-10.1 mg/dl Magnesium Level 2.0 1.8-2.4 mg/dl Total Bilirubin 0.4 0.2-1 mg/dl Direct Bilirubin < 0.1 0-0.2 mg/dl Aspartate Amino Transf (AST/SGOT) 21 15-37 U/L Alanine Aminotransferase (ALT/SGPT) 19 12-78 U/L Alkaline Phosphatase 145 45-117 U/L Total Creatine Kinase 69 26-192 U/L Creatine Kinase MB 2.2 0.5-3.6 ng/ml Creatine Kinase MB Ratio 3.2 0-3.0 Troponin I < 0.015 0-0.045 ng/ml Total Protein 7.0 6.4-8.2 gm/dl Albumin 3.2 3.4-5.0 gm/dl Urine Color ORANGE Urine Appearance CLOUDY CLEAR Urine pH 8.0 4.5-7.5 Urine Specific Sandwich 1.013 1.000-1.030 Urine Protein NEG NEG Urine Glucose (UA) TRACE NEG Urine Ketones NEG NEG Urine Occult Blood 3+ NEG Urine Nitrite NEG NEG Urine Bilirubin NEG NEG Urine Urobilinogen NEG NEG Urine Leukocyte Esterase SMALL NEG Urine WBC (Auto) 5-10 0-5 /hpf Urine RBC (Auto) >30 0-4 /hpf Urine Hyaline Casts (Auto) 1-5 0-5 /lpf Urine Epithelial Cells (Auto) >30 0-5 /lpf Urine Bacteria (Auto) NEG NEG Triglycerides Level 120 0-150 mg/dl Cholesterol Level 127 0-200 mg/dl HDL Cholesterol 48 mg/dl LDL Cholesterol, Calculated 55 mg/dl VLDL Cholesterol, Calculated 24 mg/dl Cholesterol/HDL Ratio 2.6 Microbiology Results 06/08/17 Urine Culture, Received Pending Diagnostic Radiology CT SCAN OF THE BRAIN WITHOUT IV CONTRAST CLINICAL HISTORY: Strokelike symptoms. COMPARISON STUDY: CT of the brain dated 04/24/2014. TECHNIQUE: Unenhanced axial CT scan of the brain is performed from the vertex to the skull base. A dose lowering technique was utilized adhering to the principles of ALARA. CT DOSE: 537.48 mGy.cm FINDINGS: Brain parenchyma: There are age-related involutional changes noting mild subcortical and periventricular microangiopathic change. There is no hemorrhage, mass effect, or evidence of acute territorial ischemia by CT criteria. Salgado-white matter is preserved. No extra-axial fluid collection is seen. Ventricles, sulci, cisterns: Prominent secondary to involutional change. Intracranial vasculature: There is atherosclerotic calcification of the cavernous carotid and vertebral arteries. Calvarium: Unremarkable. Sinuses and mastoids: The visualized paranasal sinuses are clear. There are bilateral mastoid effusions, left larger than right. Orbits: The bony orbits are grossly intact. There are bilateral ocular lens implants. IMPRESSION: There is no hemorrhage, mass effect, or evidence of acute territorial ischemia by CT criteria. CAROTID ARTERY ULTRASOUND CLINICAL HISTORY: Transient ischemic attack. COMPARISON STUDY: Carotid ultrasound April 25, 2014. TECHNIQUE: Real-time, grayscale, and color Doppler sonography of the carotid and vertebral arteries was performed. Images were viewed in the transverse and longitudinal planes. FINDINGS: There is mild to moderate atherosclerotic plaque. Velocity measurements are listed below. COMMON CAROTID PEAK SYSTOLIC VELOCITY (CM/S): RIGHT 91 LEFT 89 ICA PEAK SYSTOLIC VELOCITY (CM/S): RIGHT 105 LEFT 94 The systolic ratios between the internal to common carotid arteries were normal. Antegrade flow is seen in the vertebral arteries. The external carotid arteries are patent. Blood pressures were not obtained due to limitations. IMPRESSION: No evidence of a hemodynamically significant stenosis. EKG Both ECGs from this hospitalization showed pt in NSR. Impression Assessment and Plan Pt is a 77 yo right handed female who presents with sudden onset left numbness and weakness. During the incident, pt complained of SOB and palpitations. She denied any CP, FRASER, tinnitus, dysphasia. Symptoms resolved within hours of onset and pt feels that she is back to baseline. Her only antiplatelet at this time is baby aspirin. This has been recurrent with this patient as she has had at least 4 incidences prior to this involving weakness and numbness of the left side. Imaging to date has been unremarkable. Pt has a hx significant for atrial fibrillation in 2013 but unknown if she has other documented cases of atrial fibrillation. She is currently not on anticoagulation. Pt has a hx of diet controlled DM, but presents with an A1c of 8.7. Left sided weakness and numbness DDX: -TIA vs stroke could be possible due to the nature of the patient's sx, but as she has had several instances of possible TIA, but no damage seen on her Brain MRIs. She has risk factors for TIA/stroke including HTN, smoking history, previous history of TIA, DM, hx of atrial fibrillation -Vasospasms can cause a clinic picture of TIA with recurrent symptoms, however FRASER is a common sx seen with vasospasms -Focal seizures could cause recurrent isolated seizures without any brain injury seen on MRI -A possible psychogenic cause of her weakness/numbness was also brought up in 2013. She complained that the numbness "splitting the midline" with every part of her body to the left of midline being numb, which is very unusual. Plan: 1. Stroke workup -MRI brain order already in chart -CTA of head and neck -Echo -Control of Risk factors -Begin DM management with goal of A1c <7 -Follow-up with care giver about atrial fibrillation anticoagulation -If pt has any signs of cerebrovascular disease on MRI, consider switching ASA to Plavix -Continue monitoring of HTN (goal of first month post hospital discharge 150/90-130/80) 2. Seizure workup -EEG 3. Follow-up with neurology as an outpatient. Neurology attending addendum: Patient was seen and evaluated with medical student. Please see my separate neurology consult note for full evaluation and recommendations. -Laila Velasquez, DO Advanced Directives Existing Advance Directive: No Existing Living Will: No Existing Power of Vmware Administrator: No
[2017-06-09] MEDS ORDERED: OPTIRAY 320 IV PRN (10:30)
[2017-06-09] MEDS ORDERED: NURSING VERBAL MED ORDER ONE ×2 (11:15→17:45)
[2017-06-09] MEDS ORDERED: ALBUTEROL 0.083% NEBU SOLN 3 ML VIAL INH ONE (11:15)
--- NOTE | 2017-06-09 11:42 | EEG Procedure Note ---
EEG Procedure Note Date of Service Jun 09, 2017. Start / End Times Start Time: 9:53AM End Time: 10:13AM Referring Physician Laila Velasquez History 77-year-old female who presents with repeated episodes of left-sided numbness and weakness. EEG for further evaluation of possible seizure etiology. Home Medication List Scheduled Amiodarone Hcl (Amiodarone Hcl), 100 MG PO DAILY Aspirin (Aspirin Ec), 81 MG PO DAILY Atorvastatin (Lipitor), 80 MG PO DAILY Budesonide (Inhalation) (Pulmicort Respules 0.25MG/2ML), 0.25 MG NEB BID Buspirone HCl (Buspirone HCl), 15 MG PO TID Diltiazem Hcl Ext Rel (Tiazac), 180 MG PO DAILY Fluticasone Furoate-Vilanterol (Breo Ellipta), 1 PUFF INH DAILY Fluticasone Propionate (Nasal) (Flonase Allergy Relief), 2 SPRAYS BUTCH DAILY Furosemide (Lasix), 10 MG PO DAILY Lactobacillus (Floranex), 1 TAB PO TIDM Mirtazapine Soltab (Remeron Soltab), 30 MG PO DIRECTED Omeprazole (Prilosec), 40 MG PO DAILY Pramipexole Dihydrochloride (Pramipexole Dihydrochlori), 0.5 MG PO HS Trazodone HCl (Trazodone HCl), 200 MG PO HS Venlafaxine Hcl (Effexor Extended Rel), 150 MG PO DAILY Venlafaxine Hcl (Effexor Extended Rel), 75 MG PO DAILY Vitamin B Cmplx/Vitc/Folic Ac (Nephrocaps), 1 CAP PO DAILY Vitamin E (Topical) (Vitamin E), 1,000 UNITS PO DAILY Scheduled PRN Magnesium Hydroxide (Milk Of Magnesia), 30 ML PO Q12 PRN for Constipation Inpatient Medication List Current Inpatient Medications Medications (Trade) Dose Ordered Sig/Buddy Route Start Time Stop Time Status Last Admin Dose Admin Miscellaneous Information (Pharmacist Discharge Med Rec Consult) 1 ea UD PRN N/A 06/09/17 00:15 07/09/17 00:14 Acetaminophen (Tylenol Tab) 650 mg Q4H PRN PO 06/09/17 00:15 07/09/17 00:14 Al Hydrox/Mg Hydrox/Simethicone (Maalox Max Susp) 15 ml Q4H PRN PO 06/09/17 00:15 07/09/17 00:14 Magnesium Hydroxide (Milk Of Magnesia Susp) 30 ml Q12H PRN PO 06/09/17 00:15 07/09/17 00:14 Ondansetron HCl (Zofran Inj) 4 mg Q6H PRN IV 06/09/17 00:15 07/09/17 00:14 Nitroglycerin (Nitrostat Tab) 0.4 mg UD PRN SL 06/09/17 00:15 07/09/17 00:14 Morphine Sulfate (MoRPHine SULFATE INJ) 2 mg Q30M PRN IV 06/09/17 00:15 06/23/17 00:14 Future Hold Polyethylene (Miralax Powder Packet) 17 gm DAILY PRN PO 06/09/17 00:15 07/09/17 00:14 Aspirin (Ecotrin Tab) 81 mg DAILY PO 06/09/17 09:00 07/09/17 08:59 06/09/17 09:37 81 MG Atorvastatin Calcium (Lipitor Tab) 80 mg DAILY PO 06/09/17 09:00 07/09/17 08:59 06/09/17 09:37 80 MG Budesonide (Pulmicort Respules 0.25MG/ 2ML Neb Soln) 0.25 mg BIDR INH 06/09/17 08:00 07/09/17 07:59 06/09/17 07:09 0.25 MG Buspirone HCl (BusPAR TAB) 15 mg TID PO 06/09/17 09:00 07/09/17 08:59 06/09/17 09:38 15 MG Diltiazem HCl (TIAzac CAP) 180 mg DAILY PO 06/09/17 09:00 07/09/17 08:59 06/09/17 09:38 180 MG Fluticasone Propionate (Flonase Nasal [place]) 2 sprays DAILY BUTCH 06/09/17 09:00 07/09/17 08:59 06/09/17 09:36 2 SPRAYS Furosemide (Lasix Tab) 10 mg DAILY PO 06/09/17 09:00 07/09/17 08:59 06/09/17 09:37 10 MG Lactobacillus Acidophilus (Floranex Tab) 1 tab TIDM PO 06/09/17 08:00 07/09/17 07:59 06/09/17 09:36 1 TAB Pramipexole Dihydrochloride (miraPEX TAB) 0.5 mg HS PO 06/09/17 21:00 07/09/17 20:59 Trazodone HCl (Desyrel Tab) 200 mg HS PO 06/09/17 21:00 07/09/17 20:59 Venlafaxine HCl (effeXOR EXTENDED REL CAP) 75 mg DAILY PO 06/09/17 09:00 07/09/17 08:59 06/09/17 09:37 75 MG Venlafaxine HCl (effeXOR EXTENDED REL CAP) 150 mg DAILY PO 06/09/17 09:00 07/09/17 08:59 06/09/17 09:38 150 MG Vitamin B Complex/ Vit C/Folic Acid (Nephrocaps) 1 cap DAILY PO 06/09/17 09:00 07/09/17 08:59 06/09/17 09:38 1 CAP Amiodarone HCl (Cordarone Tab) 100 mg DAILY PO 06/09/17 09:00 07/09/17 08:59 06/09/17 09:38 100 MG Miscellaneous Information (Order Awaiting Action) 1 ea QS N/A 06/09/17 08:00 07/09/17 07:59 Miscellaneous Information (Order Awaiting Action) 1 ea QS N/A 06/09/17 08:00 07/09/17 07:59 Pantoprazole Sodium (Protonix Tab) 40 mg DAILY PO 06/09/17 09:00 07/09/17 08:59 06/09/17 09:38 40 MG [id number]-Qodclshajl Acetate (Vitamin E Cap) 1,000 interunit DAILY PO 06/09/17 09:00 07/09/17 08:59 06/09/17 09:39 1,000 INTERUNIT Miscellaneous (Iv Fluids Completed) 1 ea PRN PRN N/A 06/09/17 05:30 06/09/18 05:29 Miconazole Nitrate (Desenex Powder) 1 appln BID PRN EXT 06/09/17 08:30 07/09/17 08:29 Ioversol (Optiray 320) 100 ml UD PRN IV 06/09/17 10:30 06/13/17 10:29 Description This is a 21 electrode EEG with a single channel dedicated to limited EKG. The electrodes were placed in accordance with the International 10-20 system. At the start of the recording the patient was in an awake state. Background was well organized and composed of symmetric mixed alpha and beta frequencies. There was a symmetric well-formed moderate amplitude 8-9 Hz posterior dominant rhythm that was reactive to eye opening and closure. Hyperventilation was not done. Intermittent photic stimulation at various frequencies produced no abnormalities. Drowsiness was indicated by loss of muscle artifact and slowing of the background rhythm. There was no sleep transients. Interpretation This is a normal awake and drowsy routine EEG. There was no electrographic seizures or epileptiform discharges. Clinical Correlation A normal EEG does not rule out epilepsy if there is a strong clinical suspicion.
[2017-06-09] MEDS ORDERED: LORAZEPAM 1 MG TAB ONE (11:48)
--- NOTE | 2017-06-09 12:33 | DIAGNOSTIC IMAGING REPORT ---
HEAD ANGIO WITH CONTRAST CLINICAL HISTORY: Stroke Mental status change TECHNIQUE: Transaxial acquisition with multi axial reformatted images COMPARISON STUDY: None FINDINGS: All major intracranial vessels are intact. Moderate atherosclerotic narrowing.Multifocal locations of the middle cerebral arterial distribution bilaterally. No evidence for a high-grade or critical stenotic process. Anterior and posterior cerebral circulations appear unremarkable. The vertebral basilar system appears to be intact. IMPRESSION: 1. Moderate multifactorial narrowing of the middle cerebral circulation regions bilaterally. 2. No major or significant intracranial stenotic process. The above report was generated using voice recognition software. It may contain grammatical, syntax or spelling errors. Electronically signed by: Jose Angel Richter M.D. 06/09/2017 12:32 PM Dictated Date/Time: 06/09/2017 12:21 PM
--- NOTE | 2017-06-09 12:45 | DIAGNOSTIC IMAGING REPORT ---
CT ANGIOGRAPHY OF THE NECK WITH CONTRAST CLINICAL HISTORY: Transient ischemic attack. Weakness. COMPARISON STUDY: MRA of the neck April 24, 2014 and carotid ultrasound performed earlier today. Technique: CT angiography of the carotid and vertebral arteries was obtained using [employer]. 320 IV and 3D reconstruction on an independent workstation. NASCET criteria was utilized. A dose lowering technique was utilized adhering to the principles of ALARA. CT DOSE: 593.70 mGy.cm Findings: The CTA of the head will be reported separately. There is mild stenosis at the origin of the left subclavian artery. The left common carotid artery arises from the brachiocephalic trunk. There is no significant stenosis within the bilateral common carotid, internal carotid or vertebral arteries. There is moderate plaque within the proximal bilateral internal carotid arteries without significant stenosis. Tortuosity of the right internal carotid artery is noted. No dissection is identified within the major vessels of the neck. A prominent left supraclavicular lymph node is unchanged since CT of October 18, 2014. This is benign. There are multiple small thyroid nodules. Epiglottis is normal. There is no prevertebral edema. A 3 mm right upper lobe nodule shown image [address] of October 18, 2014. This is likely benign given stability. There is mild emphysema. IMPRESSION: Mild to moderate atherosclerotic plaque within the proximal bilateral internal carotid arteries without significant stenosis. No significant stenosis within the bilateral common carotid, internal carotid or vertebral arteries. No dissection. Electronically signed by: Marco Mccall M.D. 06/09/2017 12:43 PM Dictated Date/Time: 06/09/2017 12:36 PM
--- NOTE | 2017-06-09 13:06 | DIAGNOSTIC IMAGING REPORT ---
MRI OF THE BRAIN WITHOUT IV CONTRAST CLINICAL HISTORY: Strokelike symptoms. COMPARISON STUDY: CT of the brain dated 06/08/2017. TECHNIQUE: MRI of the brain was performed utilizing various T1 and T2-weighted sequences in the axial, sagittal, and coronal planes. IV contrast was not administered for this examination. FINDINGS: Brain parenchyma: There are age-related involutional changes noting minimal periventricular microangiopathic disease. There is no hemorrhage or mass effect. There is no restricted diffusion to suggest acute ischemia. Salgado-white matter differentiation is preserved. No extra-axial fluid collection is seen. The cerebellar tonsils are normal in configuration. Ventricles, sulci, and cisterns: Normal in configuration. Pituitary and sella: Partially empty sella is incidentally noted. Intracranial vasculature: Normal flow voids are maintained at the skull base. Orbits: The bony orbits are grossly intact. Orbital contents are normal in appearance noting bilateral ocular lens implants. Sinuses and mastoids: There are large mastoid effusions. The paranasal sinuses are clear. Calvarium: Unremarkable. Cervical cord: Partially visualized cervical spinal cord is normal in morphology and signal intensity. IMPRESSION: 1. No acute intracranial abnormality. 2. Large mastoid effusions. Electronically signed by: Jose Zazueta M.D. 06/09/2017 1:05 PM Dictated Date/Time: 06/09/2017 1:02 PM
--- NOTE | 2017-06-09 15:53 | Family Medicine Progress Note ---
Progress Note Date of Service Jun 09, 2017. Subjective Pt evaluation today including: conversation w/ patient, physical exam, chart review, lab review Pain: denies any pain this AM PO Intake: tolerating Voiding: no voiding problems This AM pt denies any L sided numbness/weakness and pain. Reports resolved soon after the incident. Reports being able to walk to the bathroom and feeling steady. Reports was feeling sob yesterday and sitting on recliner at which point she briefly developed numbness of L side of face, L arm and leg. She did not pass out. Called her daughter who told her to call EMS after a few hours despite feeling better. Constitutional: No fever, No chills Respiratory: + shortness of breath Cardiovascular: No chest pain Abdomen: No pain, No nausea, No vomiting Female : No dysuria Neurologic: No weakness, No numbness/tingling, No balance problems Medications Current Inpatient Medications Medications (Trade) Dose Ordered Sig/Buddy Route Start Time Stop Time Status Last Admin Dose Admin Miscellaneous Information (Pharmacist Discharge Med Rec Consult) 1 ea UD PRN N/A 06/09/17 00:15 07/09/17 00:14 Acetaminophen (Tylenol Tab) 650 mg Q4H PRN PO 06/09/17 00:15 07/09/17 00:14 Al Hydrox/Mg Hydrox/Simethicone (Maalox Max Susp) 15 ml Q4H PRN PO 06/09/17 00:15 07/09/17 00:14 Magnesium Hydroxide (Milk Of Magnesia Susp) 30 ml Q12H PRN PO 06/09/17 00:15 07/09/17 00:14 Ondansetron HCl (Zofran Inj) 4 mg Q6H PRN IV 06/09/17 00:15 07/09/17 00:14 Nitroglycerin (Nitrostat Tab) 0.4 mg UD PRN SL 06/09/17 00:15 07/09/17 00:14 Morphine Sulfate (MoRPHine SULFATE INJ) 2 mg Q30M PRN IV 06/09/17 00:15 06/23/17 00:14 Future Hold Polyethylene (Miralax Powder Packet) 17 gm DAILY PRN PO 06/09/17 00:15 07/09/17 00:14 Aspirin (Ecotrin Tab) 81 mg DAILY PO 06/09/17 09:00 07/09/17 08:59 06/09/17 09:37 81 MG Atorvastatin Calcium (Lipitor Tab) 80 mg DAILY PO 06/09/17 09:00 07/09/17 08:59 06/09/17 09:37 80 MG Budesonide (Pulmicort Respules 0.25MG/ 2ML Neb Soln) 0.25 mg BIDR INH 06/09/17 08:00 07/09/17 07:59 06/09/17 07:09 0.25 MG Buspirone HCl (BusPAR TAB) 15 mg TID PO 06/09/17 09:00 07/09/17 08:59 06/09/17 14:32 15 MG Diltiazem HCl (TIAzac CAP) 180 mg DAILY PO 06/09/17 09:00 07/09/17 08:59 06/09/17 09:38 180 MG Fluticasone Propionate (Flonase Nasal [place]) 2 sprays DAILY BUTCH 06/09/17 09:00 07/09/17 08:59 06/09/17 09:36 2 SPRAYS Furosemide (Lasix Tab) 10 mg DAILY PO 06/09/17 09:00 07/09/17 08:59 06/09/17 09:37 10 MG Lactobacillus Acidophilus (Floranex Tab) 1 tab TIDM PO 06/09/17 08:00 07/09/17 07:59 06/09/17 13:01 1 TAB Pramipexole Dihydrochloride (miraPEX TAB) 0.5 mg HS PO 06/09/17 21:00 07/09/17 20:59 Trazodone HCl (Desyrel Tab) 200 mg HS PO 06/09/17 21:00 07/09/17 20:59 Venlafaxine HCl (effeXOR EXTENDED REL CAP) 75 mg DAILY PO 06/09/17 09:00 07/09/17 08:59 06/09/17 09:37 75 MG Venlafaxine HCl (effeXOR EXTENDED REL CAP) 150 mg DAILY PO 06/09/17 09:00 07/09/17 08:59 06/09/17 09:38 150 MG Vitamin B Complex/ Vit C/Folic Acid (Nephrocaps) 1 cap DAILY PO 06/09/17 09:00 07/09/17 08:59 06/09/17 09:38 1 CAP Amiodarone HCl (Cordarone Tab) 100 mg DAILY PO 06/09/17 09:00 07/09/17 08:59 06/09/17 09:38 100 MG Miscellaneous Information (Order Awaiting Action) 1 ea QS N/A 06/09/17 08:00 07/09/17 07:59 Miscellaneous Information (Order Awaiting Action) 1 ea QS N/A 06/09/17 08:00 07/09/17 07:59 Pantoprazole Sodium (Protonix Tab) 40 mg DAILY PO 06/09/17 09:00 07/09/17 08:59 06/09/17 09:38 40 MG [id number] Acetate (Vitamin E Cap) 1,000 interunit DAILY PO 06/09/17 09:00 07/09/17 08:59 06/09/17 09:39 1,000 INTERUNIT Miscellaneous (Iv Fluids Completed) 1 ea PRN PRN N/A 06/09/17 05:30 06/09/18 05:29 Miconazole Nitrate (Desenex Powder) 1 appln BID PRN EXT 06/09/17 08:30 07/09/17 08:29 06/09/17 14:08 1 APPLN Ioversol (Optiray 320) 100 ml UD PRN IV 06/09/17 10:30 06/13/17 10:29 Albuterol/ Ipratropium (Duoneb) 3 ml Q4R INH 06/09/17 16:00 07/09/17 15:59 Enoxaparin Sodium (Lovenox 1 Mg/Kg) 1 ea Q12H SQ 06/09/17 15:45 07/09/17 15:44 UNV Warfarin Sodium (Coumadin Tab) 5 mg DAILY@16 PO 06/09/17 16:00 07/09/17 15:59 UNV Objective Vital Signs Date Time Temp Pulse Resp B/P (MAP) Pulse Ox O2 Delivery O2 Flow Rate FiO2 06/09/17 13:04 79 16 96 Nasal Cannula 4.0 06/09/17 12:00 95 4.0 06/09/17 08:26 37.0 87 18 157/71 (99) 95 Nasal Cannula 4.0 06/09/17 07:37 36.9 58 20 184/81 (115) 99 4.0 06/09/17 07:30 99 4.0 06/09/17 07:12 86 16 91 Nasal Cannula 4.0 06/09/17 04:30 36.9 80 20 146/80 (102) 96 4.0 06/09/17 03:32 36.9 82 20 159/78 95 Nasal Cannula 4.0 06/09/17 01:45 80 16 154/66 95 Nasal Cannula 4.0 06/09/17 00:29 78 20 151/59 Nasal Cannula 4.0 06/08/17 23:31 75 06/08/17 23:28 72 16 162/58 96 Nasal Cannula 4.0 06/08/17 22:25 37.0 18 144/61 98 Nasal Cannula 4.0 Physical Exam General Appearance: no apparent distress Eyes: normal inspection, sclerae normal Respiratory/Chest: + decreased breath sounds, + wheezing (expiratory ) Cardiovascular: regular rate, rhythm, no murmur Abdomen: normal bowel sounds, non tender, soft Extremities: non-tender, + pertinent finding (2+ R and 1+ L LE edema) Neurologic/Psychiatric: alert Skin: warm/dry Laboratory Results 06/09/17 06:02 06/09/17 06:02 Test 06/08/17 21:35 06/08/17 23:25 06/09/17 06:02 Immature Granulocyte % (Auto) 0.3 % White Blood Count 5.87 K/uL (4.8-10.8) Red Blood Count 4.01 M/uL (4.2-5.4) 3.60 M/uL (4.2-5.4) Hemoglobin 11.3 g/dL (12.0-16.0) Hematocrit 38.4 % (37-47) Mean Corpuscular Volume 95.8 fL (80-100) 95.0 fL (80-100) Mean Corpuscular Hemoglobin 28.2 pg (25-34) 27.8 pg (25-34) Mean Corpuscular Hemoglobin Concent 29.4 g/dl (32-36) 29.2 g/dl (32-36) Platelet Count 170 K/uL (130-400) Mean Platelet Volume 11.3 fL (7.4-10.4) 10.9 fL (7.4-10.4) Neutrophils (%) (Auto) 60.5 % Lymphocytes (%) (Auto) 30.2 % Monocytes (%) (Auto) 6.1 % Eosinophils (%) (Auto) 2.0 % Basophils (%) (Auto) 0.9 % Neutrophils # (Auto) 3.55 K/uL (1.4-6.5) Lymphocytes # (Auto) 1.77 K/uL (1.2-3.4) Monocytes # (Auto) 0.36 K/uL (0.11-0.59) Eosinophils # (Auto) 0.12 K/uL (0-0.5) Basophils # (Auto) 0.05 K/uL (0-0.2) Immature Granulocyte # (Auto) 0.02 K/uL (0.00-0.02) Prothrombin Time 9.6 SECONDS (9.0-12.0) Prothromb Time International Ratio 0.9 (0.9-1.1) Activated Partial Thromboplast Time 22.9 SECONDS (21.0-31.0) Partial Thromboplastin Ratio 0.9 Estimated Average Glucose 203 mg/dl Hemoglobin A1c 8.7 % (4.5-5.6) Magnesium Level 2.0 mg/dl (1.8-2.4) Total Bilirubin 0.4 mg/dl (0.2-1) Direct Bilirubin < 0.1 mg/dl (0-0.2) Aspartate Amino Transf (AST/SGOT) 21 U/L (15-37) Alanine Aminotransferase (ALT/SGPT) 19 U/L (12-78) Alkaline Phosphatase 145 U/L (45-117) Total Creatine Kinase 69 U/L (26-192) Creatine Kinase MB 2.2 ng/ml (0.5-3.6) Creatine Kinase MB Ratio 3.2 (0-3.0) Troponin I < 0.015 ng/ml (0-0.045) Total Protein 7.0 gm/dl (6.4-8.2) Albumin 3.2 gm/dl (3.4-5.0) Urine Color ORANGE Urine Appearance CLOUDY (CLEAR) Urine pH 8.0 (4.5-7.5) Urine Specific [place] 1.013 (1.000-1.030) Urine Protein NEG (NEG) Urine Glucose (UA) TRACE (NEG) Urine Ketones NEG (NEG) Urine Occult Blood 3+ (NEG) Urine Nitrite NEG (NEG) Urine Bilirubin NEG (NEG) Urine Urobilinogen NEG (NEG) Urine Leukocyte Esterase SMALL (NEG) Urine WBC (Auto) 5-10 /hpf (0-5) Urine RBC (Auto) >30 /hpf (0-4) Urine Hyaline Casts (Auto) 1-5 /lpf (0-5) Urine Epithelial Cells (Auto) >30 /lpf (0-5) Urine Bacteria (Auto) NEG (NEG) RDW Standard Deviation 54.6 fL (36.4-46.3) RDW Coefficient of Variation 15.8 % (11.5-14.5) Anion Gap 2.0 mmol/L (3-11) Est Creatinine Clear Calc Drug Dose 87.0 ml/min Estimated GFR () 99.7 Estimated GFR (Non- 86.0 BUN/Creatinine Ratio 19.9 (10-20) Calcium Level 8.1 mg/dl (8.5-10.1) Triglycerides Level 120 mg/dl (0-150) Cholesterol Level 127 mg/dl (0-200) HDL Cholesterol 48 mg/dl LDL Cholesterol, Calculated 55 mg/dl VLDL Cholesterol, Calculated 24 mg/dl Cholesterol/HDL Ratio 2.6 Assessment and Plan This is a 77 yo f with a h/o COPD, TIA, diastolic CHF with preserved EF, PAF, CAD, HLD, HTN, DM2, anxiety and depression presented with acute left sided weakness concerning for TIA vs stroke Stroke assessment with remote h/o TIA - consistent with TIA - tele obs - MRI brain - no acute IC pathology, large mastoid effusions - carotid doppler - no HD significant stenosis - CTA head - no stenosis, moderate multifactorial narrowing of middle cerebral circulation bilaterally - CTA neck - no sig stenosis common carotid, internal carotid or vertebral arteries; mild-mod atherosclerotic changes proximal b/l internal carotid - CT head - neg - HBA1c 8.7 - FLP trig 120, Total Cholesterol 127, LDL 55, HDL 48 - consult neuro - stroke mimic vs. vascular event given risk factors CAD/HLD/HTN/DM - other diagnoses considered: focal seizure, migraine event and psychogenic - EEG to rule out seizures - neg - CTA head and neck to look at vasculature and evaluate for stroke like symptoms - permissive HTN goal for 1 month 150-90-130/80 and after 1 month 110-70 to 130/80 - exercise 3x/week for 30 mins each - follow up in 1 month with neurology - echo 09/28: * The left ventricle is hyperdynamic. * No regional wall motion abnormalities noted. * Ejection Fraction = >70 %. * There is mild concentric left ventricular hypertrophy. * Grade I diastolic dysfunction, (abnormal relaxation pattern). * There is mild tricuspid regurgitation. -repeat ECHO today: pending - Pt/OT/speech - OT: home health OT - PT: pending - Speech: pending CHF- stable/ HTN/ PAF - continue ASA 81 mg - continue amio 100 mg daily, diltiazem 180 mg daily and lasix 20 mg daily - continue Atorvastatin 80 mg - Per records, pt had GI bleed (weeks of melena) with negative EGD and normal colonoscopy in 2015 (was not repeated) after which anticoagulation with Xarelto was held by PCP. Note baseline hemoglobin was 9-10 and pt's Hgb had dropped to 5.7. She was transfused with 5 units of pRBCs - Had discussion of risks/benefits of being on anticoagulation to decrease risk of stroke given concern for TIA and CHADsVASC score of 5 (12.5% risk). - Family preferred to have pt monitored for another day and trial Coumadin with Lovenox bridge - Started on Coumadin 5mg daily with Lovenox 1mg/kg Q12H - Follow up with PCP on Monday/Monday for INR check and Coumadin adjustment as indicated COPD - stable O2 demand but decreased breath sounds and wheezing on exam - continue Ellipta bid - Started on duoneb Q6H - Discharge with albuterol PRN and Spiriva DM2 - worsened HgA1C - Hgb A1c 8.7 - goal 7 (used to be 7.2) - Started on Metform 500mg daily with the goal of eventually increasing dose to 1000mg Anxiety/ depression - continue buspar 15 mg tid, venlafaxine and remeron 30 mg Gerd - continue Prilosec 40 mg DVT Prophy: Lovenox/Coumadin FULL CODE Dispo: lives with daughter who cares for her, 4L O2 at home Resident Physician Supervision Note: I interviewed and examined the patient. Discussed with Dr. Morris and agree with findings and plan as documented in the note. Any exceptions or clarifications are listed here: None Documented By: Tariq Christophe feeling better now. vaguely recalls old GI bleed requiring transfusion - notes wasn't hemorrhage discussed risks/bneefits of anticoagulation despite prior bleeding - they agree that avoiding stroke is an outcome to be sought after vitals noted sherry [place] unlabored no focal deficits TIA - w un-anticoagulated PAF - unclear control but globally stats on afib would suggest that PAF could easily be recurring without her feelign sx. trial of initiating anticoagulation here since she bled prior, then will have to follow closely. coumadin for both cost and reversibility. would anticipate checking Hgb frequently w INR checks. could also possibly be small vessel w uncontrolled DM - add metformin Resident Involvement: Resident Care Provided Care Provided: Adult Hospital Medicine
[2017-06-09] MEDS: ALBUT/IPRATROP 3MG/0.5MG NEB 3 ML VIAL INH SCH ×3 (16:01→23:20)
[2017-06-09] MEDS: WARFARIN SOD 5 MG TAB PO SCH (17:35)
[2017-06-09] MEDS: ENOXAPARIN 120 MG/0.8 ML SYR SQ SCH (17:36)
--- NOTE | 2017-06-09 20:20 | ECHOCARDIOGRAM REPORT ---
*NOTICE TO RECEIVING LIBERTARIAN AGENCY This information is strictly Confidential and protected under [place] law. [place] law prohibits you from making any further disclosure of this information unless further disclosure is expressly permitted by the written consent of the person to whom it pertains or is authorized by law. A general authorization for the release of medical or other information is not sufficient for this purpose. Hospital accepts no responsibility if the information is made available to any other person, INCLUDING THE PATIENT. Interpretation Summary * Name: IKE WEAVER Study Date: 06/09/2017 10:32 AM BP: 157/71 mmHg * Patient Location: .[facility]\S\N283\S\2 HR: 87 * : 1940 (M/d/yyyy) Gender: Female Height: 63 in * Age: 77 yrs Ethnicity: [place] Weight: 245 lb * Ordering Physician: Laila Velasquez * Referring Physician: Self, Referred * Performed By: Ayah Chamberlain RDCS * * Reason For Study: TIA * BSA: 2.1 m2 * -- Conclusions -- * 1. Normal left ventricular size with hyperdynamic systolic function. EF 65-70%. No regional wall motion abnormalities. Mild concentric left ventricular hypertrophy. Type 1 diastolic dysfunction. * 2. The left atrium is severely dilated. * 3. No visualized ASD or PFO via 2D imaging color Doppler. No visualized right to left inter atrial shunt following injection of agitated saline. * 4. Moderate to severe mitral annular calcification with functional mitral stenosis (moderate). Heart rate 80 bpm. * 5. Sclerotic aortic valve without significant stenosis. * 6. Normal estimated right ventricular systolic pressure; 35mmHg. Procedure Details * A complete two-dimensional transthoracic echocardiogram was performed (2D, M-mode, Doppler and color flow Doppler). * A saline contrast injection was performed to assess for cardiac shunting. * The injection was performed through an intravenous line in the right arm. * The attending nurse who injected the saline contrast was Jenny Cesar RN. * A total of 20 cc of agitated saline was given. Left Ventricle * Normal left ventricular size with hyperdynamic systolic function. EF 65-70%. No regional wall motion abnormalities. Mild concentric left ventricular hypertrophy. Type 1 diastolic dysfunction. Right Ventricle * The right ventricle is normal in size and function. * The right ventricular systolic function is normal as assessed by tricuspid annular plane systolic excursion (TAPSE) (normal >1.5 cm). Atria * The left atrium is severely dilated. * Right atrial size is normal. * No visualized ASD or PFO via 2D imaging color Doppler. No visualized right to left inter atrial shunt following injection of agitated saline. Mitral Valve * There is moderate to severe mitral annular calcification. * Moderate to severe mitral annular calcification with functional mitral stenosis (moderate). Heart rate 80 bpm. * There is mild mitral regurgitation. Tricuspid Valve * The tricuspid valve is not well visualized, but is grossly normal. * There is no tricuspid stenosis. * Significant tricuspid regurgitation is absent. Aortic Valve * Sclerotic aortic valve without significant stenosis. * The aortic valve is trileaflet. * No hemodynamically significant valvular aortic stenosis. * There is no significant aortic regurgitation. Pulmonic Valve * The pulmonary valve is inadequately visualized, but the Doppler data is adequate for interpretation. * There is no pulmonic valvular stenosis. * There is no significant pulmonary regurgitation. Great Vessels * The aortic root is normal size. * Ascending aorta of normal dimension Pericardium/Pleural * There is no pericardial effusion. Great Vessels * Normal inferior vena cava size and collapsability with sniff indicates a normal right atrial pressure of 3 mmHg MMode 2D Measurements and Calculations IVSd 1.3 cm LVIDd 4.1 cm LVPWd 1.2 cm IVS/LVPW 1.1 EDV(Teich) 73.8 ml EDV(cubed) 68.4 ml LV mass(C)d 185.0 grams LV mass(C)dI 87.8 grams/m\S\2 Ao root diam 3.2 cm Ao root area 7.9 cm\S\2 ACS 1.4 cm LA dimension 4.0 cm asc Aorta Diam 3.0 cm LA/Ao 1.3 LVAd ap4 30.6 cm\S\2 LVLd ap4 7.4 cm EDV(MOD-sp4) 102.0 ml EDV(sp4-el) 107.0 ml LVAs ap4 16.2 cm\S\2 LVLs ap4 6.1 cm ESV(MOD-sp4) 34.1 ml ESV(sp4-el) 36.4 ml EF(MOD-sp4) 66.6 % EF(sp4-el) 66.0 % LVAd ap2 28.5 cm\S\2 LVLd ap2 7.7 cm EDV(MOD-sp2) 86.7 ml EDV(sp2-el) 89.2 ml LVAs ap2 14.2 cm\S\2 LVLs ap2 6.3 cm ESV(MOD-sp2) 28.2 ml ESV(sp2-el) 27.1 ml EF(MOD-sp2) 67.4 % EF(sp2-el) 69.6 % LVLd %diff 3.7 % EDV(MOD-bp) 95.6 ml LVLs %diff 2.9 % ESV(MOD-bp) 30.8 ml EF(MOD-bp) 67.8 % SV(MOD-sp4) 67.9 ml SI(MOD-sp4) 32.2 ml/m\S\2 SV(MOD-sp2) 58.5 ml SI(MOD-sp2) 27.7 ml/m\S\2 SV(MOD-bp) 64.8 ml SI(MOD-bp) 30.8 ml/m\S\2 SV(sp4-el) 70.6 ml SI(sp4-el) 33.5 ml/m\S\2 SV(sp2-el) 62.1 ml SI(sp2-el) 29.5 ml/m\S\2 Doppler Measurements and Calculations MV E max karen 154.2 cm/sec MV A max karen 171.8 cm/sec MV E/A 0.90 MV V2 max 214.5 cm/sec MV max PG 18.4 mmHg MV V2 mean 147.9 cm/sec MV mean PG 9.6 mmHg MV V2 VTI 56.8 cm MV P1/2t max karen 192.7 cm/sec MV P1/2t 110.6 msec MVA(P1/2t) 2.0 cm\S\2 MV dec slope 510.5 cm/sec\S\2 MV dec time 0.37 sec Ao V2 max 159.9 cm/sec Ao max PG 10.2 mmHg Ao max PG (full) 1.8 mmHg LV V1 max PG 8.4 mmHg LV V1 max 145.0 cm/sec PA V2 max 123.5 cm/sec PA max PG 6.1 mmHg PA acc slope 474.0 cm/sec\S\2 PA acc time 0.12 sec TR max karen 281.0 cm/sec RVSP(TR) 34.6 mmHg RAP systole 3.0 mmHg PA pr(Accel) 25.1 mmHg
[2017-06-09] MEDS: PRAMIPEXOLE DIHYDROCHLORIDE 0.5 MG TAB PO SCH (21:11)
[2017-06-09] MEDS: TRAZODONE HCL 100 MG TAB PO SCH (21:12)
[2017-06-09] MEDS: MIRTAZAPINE TAB 15 MG TAB PO SCH (21:13)
[2017-06-09] MEDS: INSULIN ASPART 100 UNITS/ML 3 ML PEN SC SCH (21:18)
[2017-06-09] MEDS: INSULIN GLARGINE SOLOSTAR 100 UNITS/ML 3 ML PEN SC SCH (21:19)
[2017-06-10] VITALS (13 sets, daily range): BP systolic 126–167; BP diastolic 57–77; PULSE 72–103; TEMP 36.6–36.9; O2SAT 91–98
[2017-06-10] MEDS: ALBUT/IPRATROP 3MG/0.5MG NEB 3 ML VIAL INH SCH ×6 (03:26→23:22)
[2017-06-10] MEDS: ENOXAPARIN 120 MG/0.8 ML SYR SQ SCH ×2 (04:50→15:48)
[2017-06-10 06:02] LABS: BASO % 0.6 %; BASO ABS # 0.04 K/uL (0-0.2); EOS % 1.8 %; EOS ABS # 0.13 K/uL (0-0.5); HEMOGLOBIN 10.6 g/dL (12.0-16.0); IG# 0.02 K/uL (0.00-0.02); LYMPH ABS # 1.28 K/uL (1.2-3.4); MEAN CELL VOLUME 95.5 fL (80-100); MEAN CORPUSCULAR HEMOGLOBIN 28.1 pg (25-34); MEAN CORPUSCULAR HGB CONC 29.4 g/dl (32-36); MEAN PLATELET VOLUME 10.6 fL (7.4-10.4); NEUT % 72.3 %; NEUT ABS # 5.15 K/uL (1.4-6.5); PLATELET COUNT 138 K/uL (130-400); RED CELL DISTRIBUTION WIDTH CV 15.8 % (11.5-14.5); RED CELL DISTRIBUTION WIDTH SD 54.8 fL (36.4-46.3); WHITE BLOOD COUNT 7.12 K/uL (4.8-10.8)
[2017-06-10 06:09] LABS: INR 0.9 (0.9-1.1)
[2017-06-10 06:36] LABS: CALCIUM 8.5 mg/dl (8.5-10.1); CREATININE 0.75 mg/dl (0.60-1.20); POTASSIUM 3.3 mmol/L (3.5-5.1)
[2017-06-10] MEDS: BUDESONIDE 0.25 MG/2 ML VIAL (PULMICORT) INH SCH ×2 (07:14→19:40)
[2017-06-10] MEDS: INSULIN GLARGINE SOLOSTAR 100 UNITS/ML 3 ML PEN SC SCH ×2 (08:56→20:43)
[2017-06-10] MEDS: INSULIN ASPART 100 UNITS/ML 3 ML PEN SC SCH ×4 (08:57→20:43)
[2017-06-10] MEDS: DILTIAZEM HCL (TIAzac) 180 MG CAPCR PO SCH (08:58)
[2017-06-10] MEDS: BusPIRone 15 MG TAB PO SCH ×3 (08:58→20:38)
[2017-06-10] MEDS: VENLAFAXINE HCL XR 150 MG CAPXR PO SCH (08:59)
[2017-06-10] MEDS: [UNRECOGNIZED DRUG - OTHER] PO SCH ×2 (09:00)
[2017-06-10] MEDS: AMIODARONE 200 MG TAB PO SCH (09:00)
[2017-06-10] MEDS: VENLAFAXINE HCL XR 75 MG CAPXR PO SCH (09:01)
[2017-06-10] MEDS: ASPIRIN 81 MG ECTAB PO SCH (09:01)
[2017-06-10] MEDS: NEPHROCAPS PO SCH (09:01)
[2017-06-10] MEDS: ATORVASTATIN 40 MG TAB PO SCH (09:01)
[2017-06-10] MEDS: FUROSEMIDE 20 MG TAB PO SCH (09:03)
[2017-06-10] MEDS: LACTOBACILLUS ACIDOPHILUS (FLORANEX) TAB PO SCH ×3 (09:07→17:23)
[2017-06-10] MEDS: PANTOprazole SOD 40 MG TAB PO SCH (09:08)
[2017-06-10] MEDS: FLUTICASONE PROPIONATE NA SPR 16 GM BTL NAE SCH (09:08)
[2017-06-10] MEDS ORDERED: POTASSIUM CHLORIDE 20 MEQ TABCR PO ONE (10:45)
--- NOTE | 2017-06-10 12:20 | Neurology Progress Notes ---
Neurology Progress Note Date of Service Jun 10, 2017. Subjective Patient denies any new neurological symptoms. Reports that she is basically at baseline. MRI of the brain report and images were reviewed by myself and is unremarkable. No acute strokes. CTA of the head and neck was also unremarkable. No critical stenosis. Echocardiogram was unremarkable. EEG normal Objective Date Time Temp Pulse Resp B/P (MAP) Pulse Ox O2 Delivery O2 Flow Rate FiO2 06/10/17 11:46 95 16 93 Nasal Cannula 4.0 06/10/17 10:08 4.0 06/10/17 08:45 95 91 06/10/17 08:00 4.0 06/10/17 07:21 36.7 89 22 167/77 (107) 94 Nasal Cannula 4.0 06/10/17 07:14 82 16 98 Nasal Cannula 3.0 06/10/17 04:51 36.6 103 20 135/59 (84) 91 Nasal Cannula 4.0 06/10/17 04:00 4.0 06/10/17 03:26 94 16 94 Nasal Cannula 2.0 06/10/17 00:00 4.0 06/09/17 23:26 36.4 80 20 145/74 (97) 94 Nasal Cannula 4.0 06/09/17 23:20 83 16 94 Nasal Cannula 2.0 06/09/17 20:00 96 Nasal Cannula 4.0 06/09/17 19:19 78 16 94 Nasal Cannula 2.0 06/09/17 19:16 36.9 75 17 156/95 (115) 94 Nasal Cannula 2.0 06/09/17 16:20 96 Nasal Cannula 4.0 06/09/17 16:01 79 16 96 Nasal Cannula 4.0 06/09/17 13:04 79 16 96 Nasal Cannula 4.0 Last 24 Hours Test 06/09/17 16:29 06/09/17 20:32 06/10/17 05:33 06/10/17 07:31 Bedside Glucose 276 mg/dl 244 mg/dl 190 mg/dl White Blood Count 7.12 K/uL Red Blood Count 3.77 M/uL Hemoglobin 10.6 g/dL Hematocrit 36.0 % Mean Corpuscular Volume 95.5 fL Mean Corpuscular Hemoglobin 28.1 pg Mean Corpuscular Hemoglobin Concent 29.4 g/dl Platelet Count 138 K/uL Mean Platelet Volume 10.6 fL Neutrophils (%) (Auto) 72.3 % Lymphocytes (%) (Auto) 18.0 % Monocytes (%) (Auto) 7.0 % Eosinophils (%) (Auto) 1.8 % Basophils (%) (Auto) 0.6 % Neutrophils # (Auto) 5.15 K/uL Lymphocytes # (Auto) 1.28 K/uL Monocytes # (Auto) 0.50 K/uL Eosinophils # (Auto) 0.13 K/uL Basophils # (Auto) 0.04 K/uL RDW Standard Deviation 54.8 fL RDW Coefficient of Variation 15.8 % Immature Granulocyte % (Auto) 0.3 % Immature Granulocyte # (Auto) 0.02 K/uL Prothrombin Time 9.8 SECONDS Prothromb Time International Ratio 0.9 Sodium Level 142 mmol/L Potassium Level 3.3 mmol/L Chloride Level 100 mmol/L Carbon Dioxide Level 38 mmol/L Anion Gap 4.0 mmol/L Blood Urea Nitrogen 14 mg/dl Creatinine 0.75 mg/dl Est Creatinine Clear Calc Drug Dose 77.7 ml/min Estimated GFR () 90.4 Estimated GFR (Non- 78.0 BUN/Creatinine Ratio 19.2 Random Glucose 212 mg/dl Calcium Level 8.5 mg/dl Test 06/10/17 11:49 Bedside Glucose 215 mg/dl Exam: Gen.: Patient is alert and oriented in no acute , Sitting in chair Neurological examination: Mental status: Patient is alert and oriented to person place and time. Able to give his own history. Attention concentration normal for the situation. Remote and recent memory intact Speech is fluent without any dysarthria or aphasia noted Cranial nerves: No facial asymmetry noted. Hearing grossly intact voice. Strength: Full in all extremities. Station within the chair is normal. Current Inpatient Medications Medications (Trade) Dose Ordered Sig/Buddy Route Start Time Stop Time Status Last Admin Dose Admin Miscellaneous Information (Pharmacist Discharge Med Rec Consult) 1 ea UD PRN N/A 06/09/17 00:15 07/09/17 00:14 Acetaminophen (Tylenol Tab) 650 mg Q4H PRN PO 06/09/17 00:15 07/09/17 00:14 Al Hydrox/Mg Hydrox/Simethicone (Maalox Max Susp) 15 ml Q4H PRN PO 06/09/17 00:15 07/09/17 00:14 Magnesium Hydroxide (Milk Of Magnesia Susp) 30 ml Q12H PRN PO 06/09/17 00:15 07/09/17 00:14 Ondansetron HCl (Zofran Inj) 4 mg Q6H PRN IV 06/09/17 00:15 07/09/17 00:14 Nitroglycerin (Nitrostat Tab) 0.4 mg UD PRN SL 06/09/17 00:15 07/09/17 00:14 Morphine Sulfate (MoRPHine SULFATE INJ) 2 mg Q30M PRN IV 06/09/17 00:15 06/23/17 00:14 Future Hold Polyethylene (Miralax Powder Packet) 17 gm DAILY PRN PO 06/09/17 00:15 07/09/17 00:14 Aspirin (Ecotrin Tab) 81 mg DAILY PO 06/09/17 09:00 07/09/17 08:59 06/10/17 09:01 81 MG Atorvastatin Calcium (Lipitor Tab) 80 mg DAILY PO 06/09/17 09:00 07/09/17 08:59 06/10/17 09:01 80 MG Budesonide (Pulmicort Respules 0.25MG/ 2ML Neb Soln) 0.25 mg BIDR INH 06/09/17 08:00 07/09/17 07:59 06/10/17 07:14 0.25 MG Buspirone HCl (BusPAR TAB) 15 mg TID PO 06/09/17 09:00 07/09/17 08:59 06/10/17 08:58 15 MG Diltiazem HCl (TIAzac CAP) 180 mg DAILY PO 06/09/17 09:00 07/09/17 08:59 06/10/17 08:58 180 MG Fluticasone Propionate (Flonase Nasal [place]) 2 sprays DAILY BUTCH 06/09/17 09:00 07/09/17 08:59 06/10/17 09:08 2 SPRAYS Furosemide (Lasix Tab) 10 mg DAILY PO 06/09/17 09:00 07/09/17 08:59 06/10/17 09:03 10 MG Lactobacillus Acidophilus (Floranex Tab) 1 tab TIDM PO 06/09/17 08:00 07/09/17 07:59 06/10/17 09:07 1 TAB Pramipexole Dihydrochloride (miraPEX TAB) 0.5 mg HS PO 06/09/17 21:00 07/09/17 20:59 06/09/17 21:11 0.5 MG Trazodone HCl (Desyrel Tab) 200 mg HS PO 06/09/17 21:00 07/09/17 20:59 06/09/17 21:12 200 MG Venlafaxine HCl (effeXOR EXTENDED REL CAP) 75 mg DAILY PO 06/09/17 09:00 07/09/17 08:59 06/10/17 09:01 75 MG Venlafaxine HCl (effeXOR EXTENDED REL CAP) 150 mg DAILY PO 06/09/17 09:00 07/09/17 08:59 06/10/17 08:59 150 MG Vitamin B Complex/ Vit C/Folic Acid (Nephrocaps) 1 cap DAILY PO 06/09/17 09:00 07/09/17 08:59 06/10/17 09:01 1 CAP Amiodarone HCl (Cordarone Tab) 100 mg DAILY PO 06/09/17 09:00 07/09/17 08:59 06/10/17 09:00 100 MG Miscellaneous Information (Order Awaiting Action) 1 ea QS N/A 06/09/17 08:00 07/09/17 07:59 Pantoprazole Sodium (Protonix Tab) 40 mg DAILY PO 06/09/17 09:00 07/09/17 08:59 06/10/17 09:08 40 MG gu-Oluzz-Ampliljprr Acetate (Vitamin E Cap) 1,000 interunit DAILY PO 06/09/17 09:00 07/09/17 08:59 06/10/17 09:00 1,000 INTERUNIT Miscellaneous (Iv Fluids Completed) 1 ea PRN PRN N/A 06/09/17 05:30 06/09/18 05:29 Miconazole Nitrate (Desenex Powder) 1 appln BID PRN EXT 06/09/17 08:30 07/09/17 08:29 06/09/17 14:08 1 APPLN Ioversol (Optiray 320) 100 ml UD PRN IV 06/09/17 10:30 06/13/17 10:29 Albuterol/ Ipratropium (Duoneb) 3 ml Q4R INH 06/09/17 16:00 07/09/17 15:59 06/10/17 11:39 3 ML Enoxaparin Sodium (Lovenox Inj) 111 mg Q12H SQ 06/09/17 16:30 07/09/17 16:29 06/10/17 04:50 111 MG Warfarin Sodium (Coumadin Tab) 5 mg DAILY@16 PO 06/09/17 16:00 07/09/17 15:59 06/09/17 17:35 5 MG Metformin HCl (Glucophage Tab) 500 mg DAILYBD PO 06/12/17 16:30 07/12/17 16:29 Mirtazapine (Remeron Tab) 30 mg HS PO 06/09/17 21:00 07/09/17 20:59 06/09/17 21:13 30 MG Insulin Glargine (Lantus Solostar Pen) 5 units BID SC 06/09/17 21:00 07/09/17 20:59 06/10/17 08:56 5 UNITS Insulin Aspart (novoLOG ASPART) SLIDING SCALE G... ACHS SC 06/09/17 21:00 07/09/17 20:59 06/10/17 08:57 9 UNITS Impression This is a 77-year-old female who presents with acute left-sided numbness and heaviness which resolved over several hours. TIA vs a stroke mimic considering the patient has had similar episodes of 4 times previously in the past. Differential diagnosis could include focal seizure, versus migraine event ( unlikely), versus psychogenic. Patient does have stroke risk factors including A-fib, CAD, dyslipidemia, hypertension, and diabetes. Plan Agree with initiation of anticoagulation for stroke prevention in the setting of A. fib. Paroxysmal A. fib not on anticoagulation places the patient at high risk for ischemic strokes in the future. Monitor for any bleeding or blood loss anemia. Eliquist would be a reasonable alternative to Coumadin sense it has less bleeding risk compared to Xarelto, but my understanding is that this is too expensive for the patient. Follow-up PT/OT and speech therapies for discharge planning. Avoid hypotension and dehydration Stroke risk factor modifications and recommendations: Blood pressure recommendations for the first month post hospital discharge 150/ 90-130/80, and after that blood pressure recommendations 130/80-110/70 Total cholesterol goal 100- 200 and LDL goal less than 70 (at goal) Hemoglobin A1c goal less than 7 Encourage cardiovascular exercise at least 3 times a week for 30 minutes. Follow-up in neurology clinic in 1 month for hospital follow-up. If there is any questions or concerns, feel free to call/page me.
--- NOTE | 2017-06-10 12:28 | Family Medicine Progress Note ---
Progress Note Date of Service Jun 10, 2017. Subjective Pt evaluation today including: conversation w/ patient, physical exam, chart review, lab review Voiding: no voiding problems Patient is feeling better today. Reports tolerating a normal diet. No issues with chewing or swallowing. She said that her symptoms of left sided weakness have not returned. Patient reports being able ambulate normally. Constitutional: No fever, No chills Respiratory: No cough, No sputum, No shortness of breath Cardiovascular: No chest pain Abdomen: No pain, No nausea, No vomiting Female : No dysuria Medications Current Inpatient Medications Medications (Trade) Dose Ordered Sig/Buddy Route Start Time Stop Time Status Last Admin Dose Admin Miscellaneous Information (Pharmacist Discharge Med Rec Consult) 1 ea UD PRN N/A 06/09/17 00:15 07/09/17 00:14 Acetaminophen (Tylenol Tab) 650 mg Q4H PRN PO 06/09/17 00:15 07/09/17 00:14 Al Hydrox/Mg Hydrox/Simethicone (Maalox Max Susp) 15 ml Q4H PRN PO 06/09/17 00:15 07/09/17 00:14 Magnesium Hydroxide (Milk Of Magnesia Susp) 30 ml Q12H PRN PO 06/09/17 00:15 07/09/17 00:14 Ondansetron HCl (Zofran Inj) 4 mg Q6H PRN IV 06/09/17 00:15 07/09/17 00:14 Nitroglycerin (Nitrostat Tab) 0.4 mg UD PRN SL 06/09/17 00:15 07/09/17 00:14 Morphine Sulfate (MoRPHine SULFATE INJ) 2 mg Q30M PRN IV 06/09/17 00:15 06/23/17 00:14 Future Hold Polyethylene (Miralax Powder Packet) 17 gm DAILY PRN PO 06/09/17 00:15 07/09/17 00:14 Aspirin (Ecotrin Tab) 81 mg DAILY PO 06/09/17 09:00 07/09/17 08:59 06/10/17 09:01 81 MG Atorvastatin Calcium (Lipitor Tab) 80 mg DAILY PO 06/09/17 09:00 07/09/17 08:59 06/10/17 09:01 80 MG Budesonide (Pulmicort Respules 0.25MG/ 2ML Neb Soln) 0.25 mg BIDR INH 06/09/17 08:00 07/09/17 07:59 06/10/17 07:14 0.25 MG Buspirone HCl (BusPAR TAB) 15 mg TID PO 06/09/17 09:00 07/09/17 08:59 06/10/17 08:58 15 MG Diltiazem HCl (TIAzac CAP) 180 mg DAILY PO 06/09/17 09:00 07/09/17 08:59 06/10/17 08:58 180 MG Fluticasone Propionate (Flonase Nasal [place]) 2 sprays DAILY BUTCH 06/09/17 09:00 07/09/17 08:59 06/10/17 09:08 2 SPRAYS Furosemide (Lasix Tab) 10 mg DAILY PO 06/09/17 09:00 07/09/17 08:59 06/10/17 09:03 10 MG Lactobacillus Acidophilus (Floranex Tab) 1 tab TIDM PO 06/09/17 08:00 07/09/17 07:59 06/10/17 12:54 1 TAB Pramipexole Dihydrochloride (miraPEX TAB) 0.5 mg HS PO 06/09/17 21:00 07/09/17 20:59 06/09/17 21:11 0.5 MG Trazodone HCl (Desyrel Tab) 200 mg HS PO 06/09/17 21:00 07/09/17 20:59 06/09/17 21:12 200 MG Venlafaxine HCl (effeXOR EXTENDED REL CAP) 75 mg DAILY PO 06/09/17 09:00 07/09/17 08:59 06/10/17 09:01 75 MG Venlafaxine HCl (effeXOR EXTENDED REL CAP) 150 mg DAILY PO 06/09/17 09:00 07/09/17 08:59 06/10/17 08:59 150 MG Vitamin B Complex/ Vit C/Folic Acid (Nephrocaps) 1 cap DAILY PO 06/09/17 09:00 07/09/17 08:59 06/10/17 09:01 1 CAP Amiodarone HCl (Cordarone Tab) 100 mg DAILY PO 06/09/17 09:00 07/09/17 08:59 06/10/17 09:00 100 MG Miscellaneous Information (Order Awaiting Action) 1 ea QS N/A 06/09/17 08:00 07/09/17 07:59 Pantoprazole Sodium (Protonix Tab) 40 mg DAILY PO 06/09/17 09:00 07/09/17 08:59 06/10/17 09:08 40 MG bx-Qbche-Rtpeoddiim Acetate (Vitamin E Cap) 1,000 interunit DAILY PO 06/09/17 09:00 07/09/17 08:59 06/10/17 09:00 1,000 INTERUNIT Miscellaneous (Iv Fluids Completed) 1 ea PRN PRN N/A 06/09/17 05:30 06/09/18 05:29 Miconazole Nitrate (Desenex Powder) 1 appln BID PRN EXT 06/09/17 08:30 07/09/17 08:29 06/09/17 14:08 1 APPLN Ioversol (Optiray 320) 100 ml UD PRN IV 06/09/17 10:30 06/13/17 10:29 Albuterol/ Ipratropium (Duoneb) 3 ml Q4R INH 06/09/17 16:00 07/09/17 15:59 06/10/17 11:39 3 ML Enoxaparin Sodium (Lovenox Inj) 111 mg Q12H SQ 06/09/17 16:30 07/09/17 16:29 06/10/17 04:50 111 MG Warfarin Sodium (Coumadin Tab) 5 mg DAILY@16 PO 06/09/17 16:00 07/09/17 15:59 06/09/17 17:35 5 MG Metformin HCl (Glucophage Tab) 500 mg DAILYBD PO 06/12/17 16:30 07/12/17 16:29 Mirtazapine (Remeron Tab) 30 mg HS PO 06/09/17 21:00 07/09/17 20:59 06/09/17 21:13 30 MG Insulin Glargine (Lantus Solostar Pen) 5 units BID SC 06/09/17 21:00 07/09/17 20:59 06/10/17 08:56 5 UNITS Insulin Aspart (novoLOG ASPART) SLIDING SCALE G... ACHS SC 06/09/17 21:00 07/09/17 20:59 06/10/17 12:57 8 UNITS Objective Vital Signs Date Time Temp Pulse Resp B/P (MAP) Pulse Ox O2 Delivery O2 Flow Rate FiO2 06/10/17 13:02 36.8 145/77 (99) 06/10/17 11:46 95 16 93 Nasal Cannula 4.0 06/10/17 10:08 4.0 06/10/17 08:45 95 91 06/10/17 08:00 4.0 06/10/17 07:21 36.7 89 22 167/77 (107) 94 Nasal Cannula 4.0 06/10/17 07:14 82 16 98 Nasal Cannula 3.0 06/10/17 04:51 36.6 103 20 135/59 (84) 91 Nasal Cannula 4.0 06/10/17 04:00 4.0 06/10/17 03:26 94 16 94 Nasal Cannula 2.0 06/10/17 00:00 4.0 06/09/17 23:26 36.4 80 20 145/74 (97) 94 Nasal Cannula 4.0 06/09/17 23:20 83 16 94 Nasal Cannula 2.0 06/09/17 20:00 96 Nasal Cannula 4.0 06/09/17 19:19 78 16 94 Nasal Cannula 2.0 06/09/17 19:16 36.9 75 17 156/95 (115) 94 Nasal Cannula 2.0 06/09/17 16:20 96 Nasal Cannula 4.0 06/09/17 16:01 79 16 96 Nasal Cannula 4.0 Physical Exam General Appearance: WD/WN, no apparent distress Respiratory/Chest: chest non-tender, no respiratory distress, no accessory muscle use, + wheezing Cardiovascular: regular rate, rhythm, no edema, no gallop Extremities: normal range of motion, no pedal edema, no calf tenderness Neurologic/Psychiatric: no motor/sensory deficits, alert, normal mood/affect, oriented x 3 Skin: normal color, warm/dry, no rash Laboratory Results 06/10/17 05:33 Red Blood Count 3.77, Mean Corpuscular Volume 95.5, Mean Corpuscular Hemoglobin 28.1, Mean Corpuscular Hemoglobin Concent 29.4, Mean Platelet Volume 10.6, Neutrophils (%) (Auto) 72.3, Lymphocytes (%) (Auto) 18.0, Monocytes (%) (Auto) 7.0, Eosinophils (%) (Auto) 1.8, Basophils (%) (Auto) 0.6, Neutrophils # (Auto) 5.15, Lymphocytes # (Auto) 1.28, Monocytes # (Auto) 0.50, Eosinophils # (Auto) 0.13, Basophils # (Auto) 0.04 06/10/17 05:33 Test 06/10/17 05:33 06/10/17 11:49 White Blood Count 7.12 K/uL (4.8-10.8) Red Blood Count 3.77 M/uL (4.2-5.4) Hemoglobin 10.6 g/dL (12.0-16.0) Hematocrit 36.0 % (37-47) Mean Corpuscular Volume 95.5 fL (80-100) Mean Corpuscular Hemoglobin 28.1 pg (25-34) Mean Corpuscular Hemoglobin Concent 29.4 g/dl (32-36) Platelet Count 138 K/uL (130-400) Mean Platelet Volume 10.6 fL (7.4-10.4) Neutrophils (%) (Auto) 72.3 % Lymphocytes (%) (Auto) 18.0 % Monocytes (%) (Auto) 7.0 % Eosinophils (%) (Auto) 1.8 % Basophils (%) (Auto) 0.6 % Neutrophils # (Auto) 5.15 K/uL (1.4-6.5) Lymphocytes # (Auto) 1.28 K/uL (1.2-3.4) Monocytes # (Auto) 0.50 K/uL (0.11-0.59) Eosinophils # (Auto) 0.13 K/uL (0-0.5) Basophils # (Auto) 0.04 K/uL (0-0.2) RDW Standard Deviation 54.8 fL (36.4-46.3) RDW Coefficient of Variation 15.8 % (11.5-14.5) Immature Granulocyte % (Auto) 0.3 % Immature Granulocyte # (Auto) 0.02 K/uL (0.00-0.02) Prothrombin Time 9.8 SECONDS (9.0-12.0) Prothromb Time International Ratio 0.9 (0.9-1.1) Anion Gap 4.0 mmol/L (3-11) Est Creatinine Clear Calc Drug Dose 77.7 ml/min Estimated GFR () 90.4 Estimated GFR (Non- 78.0 BUN/Creatinine Ratio 19.2 (10-20) Calcium Level 8.5 mg/dl (8.5-10.1) Bedside Glucose 215 mg/dl (70-90) Assessment and Plan This is a 77 yo f with a h/o COPD, TIA, diastolic CHF with preserved EF, PAF, CAD, HLD, HTN, DM2, anxiety and depression presented with acute left sided weakness concerning for TIA vs stroke 06/10--Patient's condition is improving. Will optimize patients medical management; DM, HLD, HTN management (permissive HTN for one month following hospitalization). Cholesterol is currently controlled. Patient is started on Metformin. Additionally, coordinating the patient's fpc outpatient anticoagulation with Coumadin. ECHO demonstrated dilated L atrium and mitral stenosis. PT pending today. Stroke assessment with remote h/o TIA - consistent with TIA - tele obs - MRI brain - no acute IC pathology, large mastoid effusions - carotid doppler - no HD significant stenosis - CTA head - no stenosis, moderate multifactorial narrowing of middle cerebral circulation bilaterally - CTA neck - no sig stenosis common carotid, internal carotid or vertebral arteries; mild-mod atherosclerotic changes proximal b/l internal carotid - CT head - neg - HBA1c 8.7 - FLP trig 120, Total Cholesterol 127, LDL 55, HDL 48 - consult neuro - stroke mimic vs. vascular event given risk factors CAD/HLD/HTN/DM - other diagnoses considered: focal seizure, migraine event and psychogenic - EEG to rule out seizures - neg - CTA head and neck to look at vasculature and evaluate for stroke like symptoms - permissive HTN goal for 1 month 150-90-130/80 and after 1 month 110-70 to 130/80 - exercise 3x/week for 30 mins each - follow up in 1 month with neurology -Echo demonstrated severely dilated L. atrium and mitral stenosis. EF of 65-70% , mild LVH, no wall motion abnormalities. - Pt/OT/speech - OT: home health OT - PT: pending - Speech: pending CHF- stable/ HTN/ PAF - continue ASA 81 mg - continue amio 100 mg daily, diltiazem 180 mg daily and lasix 20 mg daily - continue Atorvastatin 80 mg - Per records, pt had GI bleed (weeks of melena) with negative EGD and normal colonoscopy in 2016 (was not repeated) after which anticoagulation with Xarelto was held by PCP. Note baseline hemoglobin was 9-10 and pt's Hgb had dropped to 5.7. She was transfused with 5 units of pRBCs - Had discussion of risks/benefits of being on anticoagulation to decrease risk of stroke given concern for TIA and CHADsVASC score of 5 (12.5% risk). - Family preferred to have pt monitored for another day and trial Coumadin with Lovenox bridge - Started on Coumadin 5mg daily with Lovenox 1mg/kg Q12H - Follow up with PCP on Monday/Monday for INR check and Coumadin adjustment as indicated Hypokalemia -40 of KCL given this am COPD - stable O2 demand but decreased breath sounds and wheezing on exam - continue Ellipta bid - Started on duoneb Q6H - Discharge with albuterol PRN and Spiriva DM2 - worsened HgA1C - Hgb A1c 8.7 - goal 7 (used to be 7.2) - Started on Metform 500mg daily with the goal of eventually increasing dose to 1000mg Anxiety/ depression - continue buspar 15 mg tid, venlafaxine and remeron 30 mg Gerd - continue Prilosec 40 mg DVT Prophy: Lovenox/Coumadin FULL CODE Dispo: lives with daughter who cares for her, 4L O2 at home Resident Physician Supervision Note: I interviewed and examined the patient. Discussed with Dr. Raygoza and agree with findings and plan as documented in the note. Any exceptions or clarifications are listed here: None Documented By: Tariq Saeed doesn't feel safe to go home yet no bloody stools no further stroke sx d/w neuro - we're both in agreement anticoagulation echo w LA dilation vitals noted nad breathing unlabored no pallor or icterus TIA - PAF - appears needs to be given trial of anticoagulation again - prior bleed appears to have been subacute, no clear and overt recurrent hemorrhage risk. further stroke will almost guarantee a permanent decline and irreversible problem, whereas recurrent bleeding, while dangerous, would have a much higher likelihood of being something that is able to be treated and managed - see agrees with this risk/benefit assessment, dtr agreed yesterday ( will discuss again) and thus far no recurrent bleeding and Hgb stable. coumadin due to cost-prohibitive w eliquis/pradaxa (>$400/month, >$300/month respectively), bled prior on xarelto otherwise as above
[2017-06-10] MEDS: WARFARIN SOD 5 MG TAB PO SCH (15:47)
[2017-06-10] MEDS: PRAMIPEXOLE DIHYDROCHLORIDE 0.5 MG TAB PO SCH (20:38)
[2017-06-10] MEDS: TRAZODONE HCL 100 MG TAB PO SCH (20:38)
[2017-06-10] MEDS: MIRTAZAPINE TAB 15 MG TAB PO SCH (20:39)
[2017-06-11] VITALS (12 sets, daily range): BP systolic 129–169; BP diastolic 59–88; PULSE 68–100; TEMP 36.3–36.9; O2SAT 91–97
[2017-06-11] MEDS: ALBUT/IPRATROP 3MG/0.5MG NEB 3 ML VIAL INH SCH ×6 (03:23→23:15)
[2017-06-11] MEDS: ENOXAPARIN 120 MG/0.8 ML SYR SQ SCH ×2 (04:51→17:19)
[2017-06-11 06:06] LABS: BASO % 0.8 %; BASO ABS # 0.04 K/uL (0-0.2); EOS % 3.2 %; EOS ABS # 0.15 K/uL (0-0.5); HEMATOCRIT 34.5 % (37-47); HEMOGLOBIN 10.2 g/dL (12.0-16.0); IG# 0.01 K/uL (0.00-0.02); LYMPH % 26.1 %; LYMPH ABS # 1.24 K/uL (1.2-3.4); MEAN CELL VOLUME 95.3 fL (80-100); MEAN CORPUSCULAR HEMOGLOBIN 28.2 pg (25-34); MEAN CORPUSCULAR HGB CONC 29.6 g/dl (32-36); MEAN PLATELET VOLUME 11.1 fL (7.4-10.4); MONO ABS # 0.38 K/uL (0.11-0.59); NEUT % 61.7 %; NEUT ABS # 2.93 K/uL (1.4-6.5); PLATELET COUNT 136 K/uL (130-400); RED CELL DISTRIBUTION WIDTH CV 15.8 % (11.5-14.5); WHITE BLOOD COUNT 4.75 K/uL (4.8-10.8)
[2017-06-11 06:42] LABS: CALCIUM 8.3 mg/dl (8.5-10.1); CREATININE 0.7 mg/dl (0.60-1.20); POTASSIUM 3.5 mmol/L (3.5-5.1)
[2017-06-11] MEDS: BUDESONIDE 0.25 MG/2 ML VIAL (PULMICORT) INH SCH ×2 (07:19→19:12)
[2017-06-11] MEDS ORDERED: POTASSIUM CHLORIDE 20 MEQ TABCR PO STA (07:25)
[2017-06-11] MEDS: ATORVASTATIN 40 MG TAB PO SCH (08:38)
[2017-06-11] MEDS: ASPIRIN 81 MG ECTAB PO SCH (08:38)
[2017-06-11] MEDS: NEPHROCAPS PO SCH (08:38)
[2017-06-11] MEDS: AMIODARONE 200 MG TAB PO SCH (08:38)
[2017-06-11] MEDS: DILTIAZEM HCL (TIAzac) 180 MG CAPCR PO SCH (08:39)
[2017-06-11] MEDS: [UNRECOGNIZED DRUG - OTHER] PO SCH ×2 (08:39)
[2017-06-11] MEDS: PANTOprazole SOD 40 MG TAB PO SCH (08:39)
[2017-06-11] MEDS: BusPIRone 15 MG TAB PO SCH ×3 (08:39→21:03)
[2017-06-11] MEDS: FUROSEMIDE 20 MG TAB PO SCH (08:40)
[2017-06-11] MEDS: LACTOBACILLUS ACIDOPHILUS (FLORANEX) TAB PO SCH ×3 (08:40→17:18)
[2017-06-11] MEDS: VENLAFAXINE HCL XR 150 MG CAPXR PO SCH (08:40)
[2017-06-11] MEDS: FLUTICASONE PROPIONATE NA SPR 16 GM BTL NAE SCH (08:41)
[2017-06-11] MEDS: VENLAFAXINE HCL XR 75 MG CAPXR PO SCH (08:41)
[2017-06-11] MEDS: INSULIN GLARGINE SOLOSTAR 100 UNITS/ML 3 ML PEN SC SCH ×2 (08:47→21:08)
[2017-06-11] MEDS: INSULIN ASPART 100 UNITS/ML 3 ML PEN SC SCH ×4 (08:47→21:09)
[2017-06-11] MEDS: WARFARIN SOD 5 MG TAB PO SCH (16:09)
--- NOTE | 2017-06-11 18:12 | Family Medicine Progress Note ---
Progress Note Date of Service Jun 11, 2017. Subjective Pt evaluation today including: conversation w/ patient, conversation w/ family , physical exam, chart review, lab review Patient has not had any repeat neuro sx. She does report feeling generally unwell; URI sx and nausea. Constitutional: No fever, No chills Respiratory: + wheezing, No cough, No sputum Cardiovascular: No chest pain, No palpitations Abdomen: + nausea, No pain, No vomiting, No diarrhea Female : No dysuria Medications Current Inpatient Medications Medications (Trade) Dose Ordered Sig/Buddy Route Start Time Stop Time Status Last Admin Dose Admin Miscellaneous Information (Pharmacist Discharge Med Rec Consult) 1 ea UD PRN N/A 06/09/17 00:15 07/09/17 00:14 Acetaminophen (Tylenol Tab) 650 mg Q4H PRN PO 06/09/17 00:15 07/09/17 00:14 06/11/17 11:29 650 MG Al Hydrox/Mg Hydrox/Simethicone (Maalox Max Susp) 15 ml Q4H PRN PO 06/09/17 00:15 07/09/17 00:14 Magnesium Hydroxide (Milk Of Magnesia Susp) 30 ml Q12H PRN PO 06/09/17 00:15 07/09/17 00:14 Ondansetron HCl (Zofran Inj) 4 mg Q6H PRN IV 06/09/17 00:15 07/09/17 00:14 06/11/17 14:24 4 MG Nitroglycerin (Nitrostat Tab) 0.4 mg UD PRN SL 06/09/17 00:15 07/09/17 00:14 Morphine Sulfate (MoRPHine SULFATE INJ) 2 mg Q30M PRN IV 06/09/17 00:15 06/23/17 00:14 Future Hold Polyethylene (Miralax Powder Packet) 17 gm DAILY PRN PO 06/09/17 00:15 07/09/17 00:14 06/11/17 11:28 17 GM Aspirin (Ecotrin Tab) 81 mg DAILY PO 06/09/17 09:00 07/09/17 08:59 06/11/17 08:38 81 MG Atorvastatin Calcium (Lipitor Tab) 80 mg DAILY PO 06/09/17 09:00 07/09/17 08:59 06/11/17 08:38 80 MG Budesonide (Pulmicort Respules 0.25MG/ 2ML Neb Soln) 0.25 mg BIDR INH 06/09/17 08:00 07/09/17 07:59 06/11/17 07:19 0.25 MG Buspirone HCl (BusPAR TAB) 15 mg TID PO 06/09/17 09:00 07/09/17 08:59 06/11/17 14:19 15 MG Diltiazem HCl (TIAzac CAP) 180 mg DAILY PO 06/09/17 09:00 07/09/17 08:59 06/11/17 08:39 180 MG Fluticasone Propionate (Flonase Nasal [place]) 2 sprays DAILY BUTCH 06/09/17 09:00 07/09/17 08:59 06/11/17 08:41 2 SPRAYS Furosemide (Lasix Tab) 10 mg DAILY PO 06/09/17 09:00 07/09/17 08:59 06/11/17 08:40 10 MG Lactobacillus Acidophilus (Floranex Tab) 1 tab TIDM PO 06/09/17 08:00 07/09/17 07:59 06/11/17 17:18 1 TAB Pramipexole Dihydrochloride (miraPEX TAB) 0.5 mg HS PO 06/09/17 21:00 07/09/17 20:59 06/10/17 20:38 0.5 MG Trazodone HCl (Desyrel Tab) 200 mg HS PO 06/09/17 21:00 07/09/17 20:59 06/10/17 20:38 200 MG Venlafaxine HCl (effeXOR EXTENDED REL CAP) 75 mg DAILY PO 06/09/17 09:00 07/09/17 08:59 06/11/17 08:41 75 MG Venlafaxine HCl (effeXOR EXTENDED REL CAP) 150 mg DAILY PO 06/09/17 09:00 07/09/17 08:59 06/11/17 08:40 150 MG Vitamin B Complex/ Vit C/Folic Acid (Nephrocaps) 1 cap DAILY PO 06/09/17 09:00 07/09/17 08:59 06/11/17 08:38 1 CAP Amiodarone HCl (Cordarone Tab) 100 mg DAILY PO 06/09/17 09:00 07/09/17 08:59 06/11/17 08:38 100 MG Miscellaneous Information (Order Awaiting Action) 1 ea QS N/A 06/09/17 08:00 07/09/17 07:59 Pantoprazole Sodium (Protonix Tab) 40 mg DAILY PO 06/09/17 09:00 07/09/17 08:59 06/11/17 08:39 40 MG fo-Mjmnr-Rtlexkaoyu Acetate (Vitamin E Cap) 1,000 interunit DAILY PO 06/09/17 09:00 07/09/17 08:59 06/11/17 08:39 1,000 INTERUNIT Miscellaneous (Iv Fluids Completed) 1 ea PRN PRN N/A 06/09/17 05:30 06/09/18 05:29 Miconazole Nitrate (Desenex Powder) 1 appln BID PRN EXT 06/09/17 08:30 07/09/17 08:29 06/09/17 14:08 1 APPLN Ioversol (Optiray 320) 100 ml UD PRN IV 06/09/17 10:30 06/13/17 10:29 Albuterol/ Ipratropium (Duoneb) 3 ml Q4R INH 06/09/17 16:00 07/09/17 15:59 06/11/17 15:22 3 ML Enoxaparin Sodium (Lovenox Inj) 111 mg Q12H SQ 06/09/17 16:30 07/09/17 16:29 06/11/17 17:19 111 MG Warfarin Sodium (Coumadin Tab) 5 mg DAILY@16 PO 06/09/17 16:00 07/09/17 15:59 06/11/17 16:09 5 MG Metformin HCl (Glucophage Tab) 500 mg DAILYBD PO 06/12/17 16:30 07/12/17 16:29 Mirtazapine (Remeron Tab) 30 mg HS PO 06/09/17 21:00 07/09/17 20:59 06/10/17 20:39 30 MG Insulin Glargine (Lantus Solostar Pen) 5 units BID SC 06/09/17 21:00 07/09/17 20:59 06/11/17 08:47 5 UNITS Insulin Aspart (novoLOG ASPART) SLIDING SCALE G... ACHS SC 06/09/17 21:00 07/09/17 20:59 06/11/17 17:21 7 UNITS Objective Vital Signs Date Time Temp Pulse Resp B/P (MAP) Pulse Ox O2 Delivery O2 Flow Rate FiO2 06/11/17 15:22 68 20 95 Nasal Cannula 4.0 06/11/17 15:15 Nasal Cannula 4.0 06/11/17 14:56 36.7 78 18 138/75 (96) 93 4.0 06/11/17 12:00 Nasal Cannula 4.0 06/11/17 11:23 100 20 93 Nasal Cannula 4.0 06/11/17 10:42 36.3 84 18 154/78 (103) 97 4.0 06/11/17 08:00 Nasal Cannula 4.0 06/11/17 07:19 82 18 93 Nasal Cannula 4.0 06/11/17 07:14 36.6 87 18 169/88 (115) 96 4.0 06/11/17 04:32 36.8 84 16 157/74 (101) 93 Nasal Cannula 4.0 06/11/17 04:00 Nasal Cannula 4.0 06/11/17 03:23 87 18 93 Nasal Cannula 4.0 06/11/17 00:00 Nasal Cannula 4.0 06/10/17 23:22 93 18 93 Nasal Cannula 4.0 06/10/17 22:47 36.8 82 18 135/75 (95) 94 Nasal Cannula 4.0 06/10/17 19:43 Nasal Cannula 4.0 06/10/17 19:42 79 18 96 Nasal Cannula 4.0 06/10/17 18:52 36.8 77 20 142/57 (85) 96 Nasal Cannula 4.0 Physical Exam General Appearance: WD/WN, no apparent distress Respiratory/Chest: chest non-tender, no respiratory distress, + wheezing Cardiovascular: regular rate, rhythm, no edema, no murmur Neurologic/Psychiatric: alert, normal mood/affect, oriented x 3 Skin: normal color, warm/dry, no rash Laboratory Results 06/11/17 05:28 Red Blood Count 3.62, Mean Corpuscular Volume 95.3, Mean Corpuscular Hemoglobin 28.2, Mean Corpuscular Hemoglobin Concent 29.6, Mean Platelet Volume 11.1, Neutrophils (%) (Auto) 61.7, Lymphocytes (%) (Auto) 26.1, Monocytes (%) (Auto) 8.0, Eosinophils (%) (Auto) 3.2, Basophils (%) (Auto) 0.8, Neutrophils # (Auto) 2.93, Lymphocytes # (Auto) 1.24, Monocytes # (Auto) 0.38, Eosinophils # (Auto) 0.15, Basophils # (Auto) 0.04 06/11/17 05:28 Test 06/11/17 05:28 06/11/17 16:37 White Blood Count 4.75 K/uL (4.8-10.8) Red Blood Count 3.62 M/uL (4.2-5.4) Hemoglobin 10.2 g/dL (12.0-16.0) Hematocrit 34.5 % (37-47) Mean Corpuscular Volume 95.3 fL (80-100) Mean Corpuscular Hemoglobin 28.2 pg (25-34) Mean Corpuscular Hemoglobin Concent 29.6 g/dl (32-36) Platelet Count 136 K/uL (130-400) Mean Platelet Volume 11.1 fL (7.4-10.4) Neutrophils (%) (Auto) 61.7 % Lymphocytes (%) (Auto) 26.1 % Monocytes (%) (Auto) 8.0 % Eosinophils (%) (Auto) 3.2 % Basophils (%) (Auto) 0.8 % Neutrophils # (Auto) 2.93 K/uL (1.4-6.5) Lymphocytes # (Auto) 1.24 K/uL (1.2-3.4) Monocytes # (Auto) 0.38 K/uL (0.11-0.59) Eosinophils # (Auto) 0.15 K/uL (0-0.5) Basophils # (Auto) 0.04 K/uL (0-0.2) RDW Standard Deviation 55.0 fL (36.4-46.3) RDW Coefficient of Variation 15.8 % (11.5-14.5) Immature Granulocyte % (Auto) 0.2 % Immature Granulocyte # (Auto) 0.01 K/uL (0.00-0.02) Prothrombin Time 11.0 SECONDS (9.0-12.0) Prothromb Time International Ratio 1.0 (0.9-1.1) Anion Gap 2.0 mmol/L (3-11) Est Creatinine Clear Calc Drug Dose 83.0 ml/min Estimated GFR () 98.2 Estimated GFR (Non- 84.8 BUN/Creatinine Ratio 22.5 (10-20) Calcium Level 8.3 mg/dl (8.5-10.1) Bedside Glucose 204 mg/dl (70-90) Assessment and Plan This is a 77 yo f with a h/o COPD, TIA, diastolic CHF with preserved EF, PAF, CAD, HLD, HTN, DM2, anxiety and depression presented with acute left sided weakness concerning for TIA vs stroke 06/11--Pt c/o URI sx and nausea. Monitor the patient for fever. Consider tamiflu ppx if patient spikes a fever and sx persist. Will optimize patients medical management; DM, HLD, HTN management (permissive HTN for one month following hospitalization). Cholesterol is currently controlled. Patient is started on Metformin. Additionally, coordinating the patient's fpc outpatient anticoagulation with Coumadin. Pt needs INR checked in three days. Plan on DC tomorrow. Pt is also requesting home PT referral. Stroke assessment with remote h/o TIA - consistent with TIA - tele obs - MRI brain - no acute IC pathology, large mastoid effusions - carotid doppler - no HD significant stenosis - CTA head - no stenosis, moderate multifactorial narrowing of middle cerebral circulation bilaterally - CTA neck - no sig stenosis common carotid, internal carotid or vertebral arteries; mild-mod atherosclerotic changes proximal b/l internal carotid - CT head - neg - HBA1c 8.7 - FLP trig 120, Total Cholesterol 127, LDL 55, HDL 48 - consult neuro - stroke mimic vs. vascular event given risk factors CAD/HLD/HTN/DM - other diagnoses considered: focal seizure, migraine event and psychogenic - EEG to rule out seizures - neg - CTA head and neck to look at vasculature and evaluate for stroke like symptoms - permissive HTN goal for 1 month 150-90-130/80 and after 1 month 110-70 to 130/80 - exercise 3x/week for 30 mins each - follow up in 1 month with neurology -Echo demonstrated severely dilated L. atrium and mitral stenosis. EF of 65-70% , mild LVH, no wall motion abnormalities. - Pt/OT/speech - OT: home health OT - PT: pending - Speech: pending CHF- stable/ HTN/ PAF - continue ASA 81 mg - continue amio 100 mg daily, diltiazem 180 mg daily and lasix 20 mg daily - continue Atorvastatin 80 mg - Per records, pt had GI bleed (weeks of melena) with negative EGD and normal colonoscopy in 2016 (was not repeated) after which anticoagulation with Xarelto was held by PCP. Note baseline hemoglobin was 9-10 and pt's Hgb had dropped to 5.7. She was transfused with 5 units of pRBCs - Had discussion of risks/benefits of being on anticoagulation to decrease risk of stroke given concern for TIA and CHADsVASC score of 5 (12.5% risk). - Family preferred to have pt monitored for another day and trial Coumadin with Lovenox bridge - Started on Coumadin 5mg daily with Lovenox 1mg/kg Q12H - Follow up with PCP on Monday/Monday for INR check and Coumadin adjustment as indicated Hypokalemia -40 of KCL given this am COPD - stable O2 demand but decreased breath sounds and wheezing on exam - continue Ellipta bid - Started on duoneb Q6H - Discharge with albuterol PRN and Spiriva DM2 - worsened HgA1C - Hgb A1c 8.7 - goal 7 (used to be 7.2) - Started on Metform 500mg daily with the goal of eventually increasing dose to 1000mg Anxiety/ depression - continue buspar 15 mg tid, venlafaxine and remeron 30 mg Gerd - continue Prilosec 40 mg DVT Prophy: Lovenox/Coumadin FULL CODE Dispo: lives with daughter who cares for her, 4L O2 at home Resident Physician Supervision Note: I interviewed and examined the patient. Discussed with Dr. Raygoza and agree with findings and plan as documented in the note. Any exceptions or clarifications are listed here: None Documented By: Tariq Christophe nausea, some dry heaves. better sicne but afradi to go home yet because she's not sure if her stomach will do OK. discussed again with family - all in agreement that while anticoagulation is not without real risk, her stroke risk and possible permanent consequences are far higher risk in terms of fpc well being has not bled despite full dose anticoagulation for 48hrs james noted nad breatthing unlabored no pallor or icterus no focal neuro deficits TIA - concern being afib - CHADs Vasc calculates to show about a 12.5% risk of CVA per year, making risk of leaving her un-anticoagulated far too high. despite appearance of NSR on most testing, numerous studies and the general behavior of afib is that it can be unpredictably paroxysmal without symptoms, making it risky to assume she's not going in and out of afib simply because we haven't captured it on periodic monitoring through the years - particularly given that she does have a cardiology-documented PAF. prior GI bleed does raise risk - but as discussed above, discussed wtih pt, discussed with family multiple times, and d/w neuro - all in agreement that since stroke almost guaruntees permanent sequella, and most GI bleeds do not, risk benefit balance, however delicate, still strongly favors anticoagulation. -coumadin due to cost mostly, as NOACs were checked and completely woody prohibitive, although the ability to target a low-therapeutic INR (~2.0) and ability to rapidly reverse are beneficial -bridging now to monitor for bleeding while inpt, but given her prior GI bleeds and no active thrombus noted, would not bridge at discharge - given her hx of GI bleeding, the time period where she's "doubly anticoagulated" (ie on lovenox, but also INR getting close to 2.0 but not quite there, or is >2.0 but she hasn't had a f/u lab test yet that day) would greatly raise risk of GI bleeding hopefully home tomorrow - nausea likely from PND but her concern is valid given her frailty, that it is sensible to see how she'll vector.
[2017-06-11] MEDS: MIRTAZAPINE TAB 15 MG TAB PO SCH (21:03)
[2017-06-11] MEDS: PRAMIPEXOLE DIHYDROCHLORIDE 0.5 MG TAB PO SCH (21:03)
[2017-06-11] MEDS: TRAZODONE HCL 100 MG TAB PO SCH ×2 (21:32→22:39)
[2017-06-12] VITALS (10 sets, daily range): BP systolic 130–182; BP diastolic 74–75; PULSE 77–96; TEMP 36.6–36.7; O2SAT 91–99
[2017-06-12] MEDS ORDERED: PHENAZOPYRIDINE HCL 100 MG TAB PO PRN (03:15)
[2017-06-12] MEDS: ALBUT/IPRATROP 3MG/0.5MG NEB 3 ML VIAL INH SCH ×4 (04:03→15:41)
[2017-06-12] MEDS: ENOXAPARIN 120 MG/0.8 ML SYR SQ SCH (04:34)
[2017-06-12 06:21] LABS: BASO % 0.7 %; BASO ABS # 0.04 K/uL (0-0.2); EOS % 3.2 %; EOS ABS # 0.19 K/uL (0-0.5); HEMATOCRIT 35.8 % (37-47); HEMOGLOBIN 10.4 g/dL (12.0-16.0); IG# 0.02 K/uL (0.00-0.02); LYMPH % 20.3 %; LYMPH ABS # 1.19 K/uL (1.2-3.4); MEAN CORPUSCULAR HEMOGLOBIN 27.9 pg (25-34); MEAN CORPUSCULAR HGB CONC 29.1 g/dl (32-36); MONO % 6.7 %; MONO ABS # 0.39 K/uL (0.11-0.59); NEUT % 68.8 %; NEUT ABS # 4.03 K/uL (1.4-6.5); PLATELET COUNT 144 K/uL (130-400); RED CELL DISTRIBUTION WIDTH CV 15.9 % (11.5-14.5); RED CELL DISTRIBUTION WIDTH SD 55.7 fL (36.4-46.3); WHITE BLOOD COUNT 5.86 K/uL (4.8-10.8)
[2017-06-12 06:31] LABS: INR 1.7 (0.9-1.1)
--- NOTE | 2017-06-12 06:40 | Family Medicine Progress Note ---
Progress Note Date of Service Jun 12, 2017. History Pt seen and examined at bedside without present complaint. Reports no weakness, vision/hearing changes, sensory changes, FRASER. General Appearance: WD/WN, no apparent distress Respiratory: chest non-tender, lungs clear, normal breath sounds, no respiratory distress Cardiovascular: normal peripheral pulses, regular rate, rhythm, no murmur Gastrointestinal: normal bowel sounds, non tender, soft, no organomegaly Assessment/Plan 77 y/o female h/o dCHF, COPD on 4LO2, PAF, CAD, HTN, HLD, DMII, anxiety/ depression presents with TIA TIA - imaging studies as noted, neurology consultation - would benefit from home health OT - warfarin for AC (no bridge 2/2 bleeding risk w/ h/o GIB) dCHF in the setting of HTN, PAF - ASA, diltiazem, lasix, amiodaron, atorvastatin COPD on 4LO2 - Ellipta, duonebs, spiriva @ home DMII - continue metformin Anxiety/depression - buspirone, venlafaxine, mirtazapine GERD - PPI VTE PPX - lovenox FULL
[2017-06-12 06:48] LABS: CALCIUM 8.6 mg/dl (8.5-10.1); CREATININE 0.67 mg/dl (0.60-1.20); POTASSIUM 3.8 mmol/L (3.5-5.1)
[2017-06-12] MEDS: BUDESONIDE 0.25 MG/2 ML VIAL (PULMICORT) INH SCH (06:54)
[2017-06-12] MEDS: VENLAFAXINE HCL XR 75 MG CAPXR PO SCH (07:53)
[2017-06-12] MEDS: [UNRECOGNIZED DRUG - OTHER] PO SCH ×2 (07:53)
[2017-06-12] MEDS: BusPIRone 15 MG TAB PO SCH ×2 (07:54→14:29)
[2017-06-12] MEDS: AMIODARONE 200 MG TAB PO SCH (07:54)
[2017-06-12] MEDS: LACTOBACILLUS ACIDOPHILUS (FLORANEX) TAB PO SCH ×2 (07:55→12:23)
[2017-06-12] MEDS: DILTIAZEM HCL (TIAzac) 180 MG CAPCR PO SCH (07:55)
[2017-06-12] MEDS: ATORVASTATIN 40 MG TAB PO SCH (07:55)
[2017-06-12] MEDS: NEPHROCAPS PO SCH (07:55)
[2017-06-12] MEDS: FUROSEMIDE 20 MG TAB PO SCH (07:56)
[2017-06-12] MEDS: PANTOprazole SOD 40 MG TAB PO SCH (07:56)
[2017-06-12] MEDS: VENLAFAXINE HCL XR 150 MG CAPXR PO SCH (07:57)
[2017-06-12] MEDS: ASPIRIN 81 MG ECTAB PO SCH (07:57)
[2017-06-12] MEDS: FLUTICASONE PROPIONATE NA SPR 16 GM BTL NAE SCH (07:59)
[2017-06-12] MEDS: INSULIN ASPART 100 UNITS/ML 3 ML PEN SC SCH ×2 (08:01→12:22)
[2017-06-12] MEDS: INSULIN GLARGINE SOLOSTAR 100 UNITS/ML 3 ML PEN SC SCH (08:02)
[2017-06-12] MEDS ORDERED: NITR-5 PO (13:23)
[2017-06-12] MEDS ORDERED: WARF3TAB PO (13:23)
[2017-06-12] MEDS ORDERED: GLC500 PO (13:23)
--- NOTE | 2017-06-12 13:32 | Discharge Instructions ---
Discharge Instructions Date of Service Jun 12, 2017. Admission Reason for Admission: Weakness Discharge Discharge Diagnosis / Problem: TIA Discharge Goals Goal(s): Improve function, Increase independence, Improve disease control Activity Recommendations Activity Limitations: per Instructions/Follow-up section . Instructions / Follow-Up Instructions / Follow-Up Mrs. Church, You came to the ED and were found to have left-sided weakness which gave us concerns that you had a stroke. When we did imaging, we did not see signs of stroke. In addition, we are reassured that you symptoms have gone away. We call this a TIA (transient ischemic attack). It means that something caused a momentary decrease in blood flow to your brain, which could explain your symptoms. The goal of our therapy leaving the hospital is to reduce your risk of having an other event or something worse such as a stroke. As we discussed, you will be taking Coumadin and Metformin. You will need to follow up with your primary care doctor to adjust the dose of this medicine based on your blood results Plan leaving the hospital; 1. Get blood work tomorrow 2. Meet with your PCP regarding warfarin dosing Current Hospital Diet Patient's current hospital diet: AHA Diet (Heart Healthy), Diabetes Type 2 Diet Discharge Diet Recommended Diet: Low Sodium Diet (2gm Na), Diabetes Type 1 Diet Pending Studies Studies pending at discharge: no Laboratory Results Hemoglobin A1c Test 06/08/17 21:35 Range/Units Estimated Average Glucose 203 mg/dl Hemoglobin A1c 8.7 H 4.5-5.6 % Lipid Panel Test 06/09/17 06:02 Range/Units Triglycerides Level 120 0-150 mg/dl Cholesterol Level 127 0-200 mg/dl HDL Cholesterol 48 mg/dl Cholesterol/HDL Ratio 2.6 LDL Cholesterol, Calculated 55 mg/dl Medical Emergencies . Who to Call and When: Medical Emergencies: If at any time you feel your situation is an emergency, please call 911 immediately. . Non-Emergent Contact Non-Emergency issues call your: Primary Care Provider . . "Provider Documentation" section prepared by Juno Raygoza. . VTE Core Measure Inpt VTE Proph given/why not?: SCD's
--- NOTE | 2017-06-12 15:00 | Pharmacy Progress Note ---
Pharmacist Stroke Counseling Date of Service Jun 12, 2017. Scope Pharmacy has been consulted to provide medication discharge counseling for this patient admitted with transient ischemic attack as per the Pharmacist Discharge Counseling for Stroke Patients Protocol. Medications on Discharge New Medications: Nitrofurantoin Monohyd Macrocr (Macrobid) 100 Mg Cap 100 MG PO BID for 5 Days, #10 CAP Warfarin Sodium (Coumadin) 3 Mg Tab 1 TAB PO DAILY for 30 Days, #30 TAB 5 Refills Metformin HCl (Metformin HCl) 500 Mg Tab 500 MG PO DAILYBD for 30 Days, #30 TAB Continued Medications: Amiodarone Hcl (Amiodarone Hcl) 100 Mg Tab 100 MG PO DAILY Aspirin (Aspirin Ec) 81 Mg Tab 81 MG PO DAILY Atorvastatin (Lipitor) 80 Mg Tab 80 MG PO DAILY Budesonide (Inhalation) (Pulmicort Respules 0.25MG/2ML) 0.25 Mg/2 Ml Radha 0.25 MG NEB BID Buspirone HCl (Buspirone HCl) 15 Mg Tab 15 MG PO TID Diltiazem Hcl Ext Rel (Tiazac) 180 Mg Capcr 180 MG PO DAILY, CAP Fluticasone Furoate-Vilanterol (Breo Ellipta) 1 Inh Inh 1 PUFF INH DAILY Fluticasone Propionate (Nasal) (Flonase Allergy Relief) 50 Mcg/Act Spr 2 SPRAYS BUTCH DAILY Furosemide (Lasix) 20 Mg Tab 10 MG PO DAILY, TAB Lactobacillus (Floranex) 1 Tab Tab 1 TAB PO TIDM Magnesium Hydroxide (Milk Of Magnesia) 30 Ml Susp 30 ML PO Q12 PRN for Constipation, ML Mirtazapine Soltab (Remeron Soltab) 30 Mg Soltab 30 MG PO DIRECTED, TAB Omeprazole (Prilosec) 20 Mg Capcr 40 MG PO DAILY, CAP Pramipexole Dihydrochloride (Pramipexole Dihydrochlori) 0.5 Mg Tab 0.5 MG PO HS Trazodone HCl (Trazodone HCl) 100 Mg Tab 200 MG PO HS Venlafaxine Hcl (Effexor Extended Rel) 150 Mg Capcr 150 MG PO DAILY TAKE WITH 75MG = 225 MG TOTAL Venlafaxine Hcl (Effexor Extended Rel) 75 Mg Capcr 75 MG PO DAILY TAKE WITH 150 MG = 225MG TOTAL Vitamin B Cmplx/Vitc/Folic Ac (Nephrocaps) Cap 1 CAP PO DAILY, CAP Vitamin E (Topical) (Vitamin E) 1,000 Unit Cre 1000 UNITS PO DAILY Action The above medications, specifically ones for stroke treatment/prophylaxis, have been reviewed in detail with the patient and/or patient medical billing representative(s) prior to discharge. This includes indication, common adverse reactions, drug interactions, and medication administration. Medication counseling has been employed using the teach-back method to ensure understanding. Outcome The patient has demonstrated understanding of the medications. Lucie had no questions regarding any of her medication. Please note, they are aware that the pharmacist will call them within 72 hours post-discharge to confirm that the appropriate medications are being taken and answer any further medication related questions the patient might have at that time. Contact information Individual to be contacted: Kathya or Madiha Relationship to patient: Daughters of patient Phone number: [phone] Best time to call: afternoon Additional comments: * Pt was given a medication box. * When making the follow up call: Please inform Lucie or her daughters that if she has surgery she will need to make sure her doctor knows she is on warfarin. She will also need to inform her dentist that she is on warfarin. Thank you for allowing pharmacy to be involved in the care of this patient. Please call [phone] or [phone] with any additional questions
[2017-06-12] MEDS: WARFARIN SOD 5 MG TAB PO SCH (16:19)
[2017-06-12] MEDS ORDERED: METFORMIN HCL 500 MG TAB PO SCH (16:30)
--- NOTE | 2017-06-12 16:52 | Discharge Summary ---
Discharge Summary Date of Service Jun 12, 2017. Discharge Summary Admission Date: Jun 09, 2017 at 00:07 Discharge Date: Jun 12, 2017 Discharge Disposition: Home Principal Diagnosis: TIA Immunizations: Have You Had Influenza Vaccine: Yes Influenza Vaccine Date: Apr 12, 2013 History of Tetanus Vaccine?: Unknown Tetanus Immunization Date: Nov 09, 2007 History of Pneumococcal: Yes Pneumococcal Date: Mar 10, 2011 History of Hepatitis B Vaccine: No Discharge Exam Review of Systems: Constitutional: No fever, No chills, No sweats Respiratory: No cough, No sputum, No wheezing Abdomen: No pain, No nausea, No vomiting Genitourinary - Female: + dysuria, + urinary frequency, No hematuria Physical Exam: General Appearance: WD/WN, no apparent distress Respiratory/Chest: chest non-tender, lungs clear, normal breath sounds Cardiovascular: regular rate, rhythm, no edema, no murmur Abdomen / GI: normal bowel sounds, non tender, soft Extremities: normal inspection, no calf tenderness Neurologic/Psychiatric: alert, normal mood/affect, oriented x 3 Skin: normal color, warm/dry, no rash Hospital Course Ms. Church came to [facility], [place] c/o left side weakness. Patient has a PMH significant for Afib, HTN, HLD, DMII. Patient was admitted to rule out life- threatening causes; ischemia, mass, hemorrhage. Imaging was unremarkable for the above and her symptoms resolved early in the hospital course. The patient also received a ECHO and carotid Doppler. ECHO showed a severely dilated left atrium and mitral stenosis. Pt was calculated to have a CHADvas of 12.5%, making her a strong candidate for outpatient anticoagulation. Patient was on Xarelto in the past but stopped after experiencing a significant GI bleed. After careful consultation with the patient and the family, it was determined that the patient be started on Warfarin. She was started on 5mg with the therapeutic goal of 2. Her INR increased faster than expected and the patient was thus discharged on 3 mg with the directions to have a INR drawn tomorrow morning and with close follow up with the coagulation clinic. Rest of the patient's care, centered on monitoring and management of other risk factors for CAD and stroke; DM II, HTN, HLD. Patient was found to have a HbA1c of 8.7 and was subsequently started on Metformin. Prior to dc, the patient began to have mild dysuric symptoms and was found to have a ua positive for infection (culture is pending). Patient was mo'ed with a script for macrobid. Please refer to the patient problem list below for more information regarding hospital course; Stroke assessment with remote h/o TIA - consistent with TIA - tele obs - MRI brain - no acute IC pathology, large mastoid effusions - carotid doppler - no HD significant stenosis - CTA head - no stenosis, moderate multifactorial narrowing of middle cerebral circulation bilaterally - CTA neck - no sig stenosis common carotid, internal carotid or vertebral arteries; mild-mod atherosclerotic changes proximal b/l internal carotid - CT head - neg - HBA1c 8.7 - FLP trig 120, Total Cholesterol 127, LDL 55, HDL 48 - consult neuro - stroke mimic vs. vascular event given risk factors CAD/HLD/HTN/DM - other diagnoses considered: focal seizure, migraine event and psychogenic - EEG to rule out seizures - neg - CTA head and neck to look at vasculature and evaluate for stroke like symptoms - permissive HTN goal for 1 month 150-90-130/80 and after 1 month 110-70 to 130/80 - exercise 3x/week for 30 mins each - follow up in 1 month with neurology -Echo demonstrated severely dilated L. atrium and mitral stenosis. EF of 65-70% , mild LVH, no wall motion abnormalities. - Pt/OT/speech - OT: home health OT - PT: pending - Speech: pending CHF- stable/ HTN/ PAF - continue ASA 81 mg - continue amio 100 mg daily, diltiazem 180 mg daily and lasix 20 mg daily - continue Atorvastatin 80 mg - Per records, pt had GI bleed (weeks of melena) with negative EGD and normal colonoscopy in 2015 (was not repeated) after which anticoagulation with Xarelto was held by PCP. Note baseline hemoglobin was 9-10 and pt's Hgb had dropped to 5.7. She was transfused with 5 units of pRBCs - Had discussion of risks/benefits of being on anticoagulation to decrease risk of stroke given concern for TIA and CHADsVASC score of 5 (12.5% risk). - Family preferred to have pt monitored for another day and trial Coumadin with Lovenox bridge - Started on Coumadin 5mg daily with Lovenox 1mg/kg Q12H - Follow up with PCP on Monday/Monday for INR check and Coumadin adjustment as indicated Hypokalemia -40 of KCL given this am COPD - stable O2 demand but decreased breath sounds and wheezing on exam - continue Ellipta bid - Started on duoneb Q6H - Discharge with albuterol PRN and Spiriva DM2 - worsened HgA1C - Hgb A1c 8.7 - goal 7 (used to be 7.2) - Started on Metform 500mg daily with the goal of eventually increasing dose to 1000mg Anxiety/ depression - continue buspar 15 mg tid, venlafaxine and remeron 30 mg Gerd - continue Prilosec 40 mg DVT Prophy: Lovenox/Coumadin FULL CODE Dispo: lives with daughter who cares for her, 4L O2 at [facility] Total Time Spent: Less than 30 minutes This includes examination of the patient, discharge planning, medication reconciliation, and communication with other providers. Discharge Instructions Please refer to the electronic Patient Visit Report (Discharge Instructions) for additional information. Additional Copies To Ray Pereira III, CRNP Assessment/Plan For full attending history and exam, see note from day of discharge. 77 y/o female h/o dCHF, COPD on 4LO2, PAF, CAD, HTN, HLD, DMII, anxiety/ depression presents with TIA TIA - imaging studies as noted, neurology consultation - would benefit from home health OT - warfarin for AC (no bridge 2/2 bleeding risk w/ h/o GIB) dCHF in the setting of HTN, PAF - ASA, diltiazem, lasix, amiodaron, atorvastatin COPD on 4LO2 - Ellipta, duonebs, spiriva @ home DMII - continue metformin Anxiety/depression - buspirone, venlafaxine, mirtazapine GERD - PPI
--- NOTE | 2017-06-15 14:20 | Pharmacy Progress Note ---
Pharmacist Post D/C Phone Note Date of phone call: Jun 15, 2017. Individual with whom pharmacist spoke to: Ashia (daughter) The following questions were reviewed during the phone call with responses listed below each: Can you tell me the medications that you are currently taking as well as when and how you take each medication? - Yes- read list to her and confirmed medication. patient takes Remeron in evening .... can take in morning if agitated When have you missed any doses of your medications? - no What side effects are you having from your medications? - none (reviewed side effects for metformin and coumadin), ensured having INR checked and set up with clinic What questions do you have about your medications? - none What problems are you having obtaining your medications? - none When is your next appointment with your primary care doctor? - yesterday Additional comments: - N/A As per the Pharmacist Discharge Counseling for Stroke Patients Protocol, this phone call has been completed within 72 hours of discharge. Thank you for allowing us to be involved in the care of this patient.
== END 2017-06-12 16:33 | disposition home health service (06) ==
LOC: EDBD 22:08 → C.EDC 22:10 → C.MED 06-09 00:07 → ENRESERV 06-09 00:50
PROVIDERS: ADMIT Hospitalist; ATTEND Family Medicine
DX: G45.9 Transient cerebral ischemic attack, unspecified (principal); I48.0 Paroxysmal atrial fibrillation; I10 Essential (primary) hypertension; E78.5 Hyperlipidemia, unspecified; E11.9 Type 2 diabetes mellitus without complications; J44.9 Chronic obstructive pulmonary disease, unspecified; Z99.81 Dependence on supplemental oxygen; I25.10 Atherosclerotic heart disease of native coronary artery without angina pectoris; F41.9 Anxiety disorder, unspecified; Z86.73 Personal history of transient ischemic attack (TIA), and cerebral infarction without residual deficits; Z98.51 Tubal ligation status; Z87.891 Personal history of nicotine dependence; Z79.4 Long term (current) use of insulin; Z79.01 Long term (current) use of anticoagulants; Z79.899 Other long term (current) drug therapy; F32.9 Major depressive disorder, single episode, unspecified; Z88.5 Allergy status to narcotic agent; Z83.3 Family history of diabetes mellitus; Z80.3 Family history of malignant neoplasm of breast; Z82.49 Family history of ischemic heart disease and other diseases of the circulatory system

== ENCOUNTER → 2017-06-22 | Outpatient (CLI) | payer OTHER, MEDICARE ==
[~2017-06-22] MED LIST changes: -CHOL20009 PO; +DILT-113 PO; -FERR1TAB13 PO; -FOLI1TAB8 PO; +FURO-85 PO; +GLC500 PO; -GUAI1TAB55 PO; -IPRA1AER2 INH; +MIRT30TA2 PO; -PANT40TA2 PO; -POLY335019 PO; -PRAM0.5T10 PO; +PRAM0.5T13 PO; +PRLSR20 PO; -SALI0.6510 NAE; -SKINCRE34 TOP; -UMEC1INH INH; +WARF3TAB PO
--- NOTE | 2017-06-22 16:21 | DIAGNOSTIC IMAGING REPORT ---
TWO VIEW CHEST CLINICAL HISTORY: Hypoxia. Dyspnea on exertion. FINDINGS: PA and lateral chest radiographs are compared to study dated 05/25/2017 and correlated with chest CT dated 09/13/2016. The heart is enlarged and there is atherosclerotic calcification of the thoracic aorta. The pulmonary vasculature is noncongested. Enlargement of the central pulmonary arteries suggests pulmonary artery hypertension. The mitral annulus is densely calcified. Chronic interstitial thickening is similar to previous. No airspace consolidation or pleural effusion is identified. There is no pneumothorax. The skeletal structures are osteopenic. Degenerative change is noted in the thoracic spine. IMPRESSION: Cardiomegaly with no active disease in the chest. Electronically signed by: Jose Zazueta M.D. 06/22/2017 4:20 PM Dictated Date/Time: 06/22/2017 4:19 PM
[2017-06-22 16:42] LABS: BASO % 0.5 %; BASO ABS # 0.04 K/uL (0-0.2); EOS % 3.4 %; EOS ABS # 0.26 K/uL (0-0.5); HEMATOCRIT 38.3 % (37-47); HEMOGLOBIN 11.1 g/dL (12.0-16.0); IG# 0.02 K/uL (0.00-0.02); LYMPH % 18.2 %; LYMPH ABS # 1.41 K/uL (1.2-3.4); MEAN CELL VOLUME 93.9 fL (80-100); MEAN CORPUSCULAR HEMOGLOBIN 27.2 pg (25-34); MONO % 7.6 %; MONO ABS # 0.59 K/uL (0.11-0.59); NEUT ABS # 5.43 K/uL (1.4-6.5); PLATELET COUNT 243 K/uL (130-400); RED CELL DISTRIBUTION WIDTH SD 50.8 fL (36.4-46.3); WHITE BLOOD COUNT 7.75 K/uL (4.8-10.8)
[2017-06-22 17:26] LABS: BLOOD UREA NITROGEN 9 mg/dl (7-18); CALCIUM 8.7 mg/dl (8.5-10.1); CARBON DIOXIDE 38 mmol/L (21-32); CREATININE 0.72 mg/dl (0.60-1.20); GLUCOSE 152 mg/dl (70-99); POTASSIUM 3.5 mmol/L (3.5-5.1); SODIUM 140 mmol/L (136-145)
[2017-06-22 17:41] LABS: INFLUENZA B ANTIGEN Neg for Influ B (NEG)
== END | disposition home or self-care (01) ==
LOC: C.RAD 15:44
PROVIDERS: ATTEND Nurse Practitioner Adult Health
DX: R06.02 Shortness of breath (principal)

== ENCOUNTER → 2017-07-11 | Outpatient (CLI) | payer OTHER, MEDICARE ==
[2017-07-11 18:26] LABS: BLOOD UREA NITROGEN 11 mg/dl (7-18); CALCIUM 8.5 mg/dl (8.5-10.1); CARBON DIOXIDE 40 mmol/L (21-32); CREATININE 0.77 mg/dl (0.60-1.20); GLUCOSE 180 mg/dl (70-99); POTASSIUM 3.2 mmol/L (3.5-5.1); SODIUM 139 mmol/L (136-145)
== END | disposition home or self-care (01) ==
LOC: C.LABBFT 15:09
PROVIDERS: ATTEND Nurse Practitioner Adult Health
DX: R60.9 Edema, unspecified (principal)

== ENCOUNTER 2017-07-19 20:51 | Inpatient (IN) | payer OTHER, MEDICARE ==
[~2017-07-19] VITALS: Ht 160 cm; Wt 115.7 kg
--- NOTE | 2017-07-19 21:38 | DIAGNOSTIC IMAGING REPORT ---
SINGLE VIEW CHEST CLINICAL HISTORY: Fever. FINDINGS: An AP, portable, upright chest radiograph is compared to study dated 06/22/2017. The examination is degraded by portable technique and apical lordotic positioning. The heart is top normal for projection. The mitral annulus is densely calcified. There is atherosclerotic calcification of the thoracic aorta. Chronic interstitial thickening is similar to previous. No airspace consolidation or large pleural effusion is identified. No pneumothorax is seen. The skeletal structures are osteopenic. The bony thorax is grossly intact. IMPRESSION: No acute cardiopulmonary abnormality. Electronically signed by: Jose Zazueta M.D. 07/19/2017 9:37 PM Dictated Date/Time: 07/19/2017 9:35 PM
--- NOTE | 2017-07-19 21:41 | DIAGNOSTIC IMAGING REPORT ---
CT SCAN OF THE BRAIN WITHOUT IV CONTRAST CLINICAL HISTORY: Headache. COMPARISON STUDY: CT of the brain dated 06/09/2017. TECHNIQUE: Unenhanced axial CT scan of the brain is performed from the vertex to the skull base. A dose lowering technique was utilized adhering to the principles of ALARA. CT DOSE: 537.48 mGy.cm FINDINGS: Brain parenchyma: There are age-related involutional changes noting mild subcortical and periventricular microangiopathic change. There is no hemorrhage, mass effect, or evidence of acute territorial ischemia by CT criteria. Salgado-white matter is preserved. No extra-axial fluid collection is seen. Ventricles, sulci, cisterns: Prominent secondary to involutional change. Intracranial vasculature: There is atherosclerotic calcification of the cavernous carotid and vertebral arteries. Calvarium: Unremarkable. Sinuses and mastoids: The visualized paranasal sinuses are clear. There are bilateral mastoid effusions, left larger than right. Orbits: The bony orbits are grossly intact. There are bilateral ocular lens implants. IMPRESSION: There is no hemorrhage, mass effect, or evidence of acute territorial ischemia by CT criteria. Electronically signed by: Jose Zazueta M.D. 07/19/2017 9:39 PM Dictated Date/Time: 07/19/2017 9:37 PM
[2017-07-19 22:09] LABS: BASO % 0.7 %; BASO ABS # 0.04 K/uL (0-0.2); EOS % 3.7 %; EOS ABS # 0.22 K/uL (0-0.5); HEMATOCRIT 37.1 % (37-47); HEMOGLOBIN 11.2 g/dL (12.0-16.0); IG# 0.02 K/uL (0.00-0.02); LYMPH % 27.3 %; LYMPH ABS # 1.64 K/uL (1.2-3.4); MEAN CELL VOLUME 94.9 fL (80-100); MEAN CORPUSCULAR HEMOGLOBIN 28.6 pg (25-34); MEAN CORPUSCULAR HGB CONC 30.2 g/dl (32-36); MEAN PLATELET VOLUME 10.7 fL (7.4-10.4); MONO % 7.5 %; MONO ABS # 0.45 K/uL (0.11-0.59); NEUT % 60.5 %; NEUT ABS # 3.63 K/uL (1.4-6.5); NUCLEATED RED BLOOD CELL ABS 0.02 K/uL (0-0); PLATELET COUNT 193 K/uL (130-400); RED CELL DISTRIBUTION WIDTH SD 58.3 fL (36.4-46.3)
[2017-07-19] MEDS ORDERED: CMD2 PO (22:15)
[2017-07-19] MEDS ORDERED: METF1TAB85 PO (22:15)
[2017-07-19 22:17] LABS: ISTAT CREATININE 1.1 mg/dl (0.6-1.3); ISTAT IONIZED CALCIUM 1.08 mmol/l (1.12-1.32); ISTAT POTASSIUM 3.4 mEq/L (3.3-5.0)
[2017-07-19] MEDS ORDERED: VITA10004 PO (22:21)
[2017-07-19 22:50] LABS: ALBUMIN 3.1 gm/dl (3.4-5.0); ALT/SGPT 24 U/L (12-78); BLOOD UREA NITROGEN 17 mg/dl (7-18); CALCIUM 8.6 mg/dl (8.5-10.1); CARBON DIOXIDE 40 mmol/L (21-32); CREATININE 1.04 mg/dl (0.60-1.20); GLUCOSE 138 mg/dl (70-99); POTASSIUM 3.4 mmol/L (3.5-5.1); SODIUM 139 mmol/L (136-145)
[2017-07-19 22:55] LABS: ALKALINE PHOSPHATASE 121 U/L (45-117); AST/SGOT 21 U/L (15-37); CKMB 2.2 ng/ml (0.5-3.6); TOTAL PROTEIN 6.6 gm/dl (6.4-8.2)
[2017-07-19] MEDS ORDERED: VANCOMYCIN IV 2,000 MG in SODIUM CHLORIDE 0.9% 500ML 500 ML IV STA (23:02)
[2017-07-19] MEDS ORDERED: VANCOMYCIN CONSULT ACTIVE PRN (23:15)
[2017-07-19] MEDS ORDERED: CEFAZOLIN SOD 1000MG/7.5 ML IV PUSH IV STA (23:35)
[2017-07-20] VITALS (11 sets, daily range): BP systolic 149–170; BP diastolic 66–88; PULSE 69–99; TEMP 36.3–36.9; O2SAT 92–98; BMI 43.6
--- NOTE | 2017-07-20 00:01 | History and Physical ---
History & Physical Date & Time of Service: Jul 20, 2017 at 00:00. The patient was seen and examined on 07/19/2017. Chief Complaint: Head Numbness Primary Care Physician: Ray Pereira III, CRNP History of Present Illness Source: patient, family The patient is a 77-year-old female with most recent [facility] hospitalization from June 09 - June 12 for generalized weakness, who presents to the emergency department with complaint of worsening numbness and erythema of bilateral lower extremities that began about 6 hours prior to arrival. She reports that the numbness began on the left side of her face, and then progressed down her left arm to the left side of her chest. That numbness resolved, and symptoms then developed in her lower extremities. She has chronic shortness of breath, is on 4 L nasal cannula oxygen at home, and family reports that she is noncompliant with her medications. She is vague about possible vision change in her left eye, and denies headaches, temporal artery area tenderness, or difficulty chewing or swallowing. She reports taking her warfarin as directed. She has a chronic cough. Family History Diabetes mellitus FH: cancer (lymphoma, breast cancer) Hypertension Social History Smoking Status: Former Smoker Smokeless Tobacco Use: No Alcohol Use: none Drug Use: none Marital Status: Housing status: lives with family Occupational Status: retired Immunizations History of Influenza Vaccine: Yes Influenza Vaccine Date: Apr 12, 2013 History of Tetanus Vaccine?: Unknown Tetanus Immunization Date: Nov 09, 2007 History of Pneumococcal: Yes Pneumococcal Date: Mar 10, 2011 History of Hepatitis B Vaccine: No Allergies Coded Allergies: Mushroom (Verified Allergy, Unknown, 07/19/17) Theophyllines (Verified Allergy, Unknown, Unknown, 07/19/17) Reported by daughter and listed in [facility] record. Codeine (Verified Adverse Reaction, Severe, HYPERVENTILATES, 07/19/17) Morphine (Verified Adverse Reaction, Severe, Causes Afib, 07/19/17) Home Medications Scheduled Amiodarone Hcl (Amiodarone Hcl), 100 MG PO DAILY Aspirin (Aspirin Ec), 81 MG PO DAILY Atorvastatin (Lipitor), 80 MG PO DAILY Budesonide (Inhalation) (Pulmicort Respules 0.25MG/2ML), 0.25 MG NEB BID Buspirone HCl (Buspirone HCl), 15 MG PO TID Diltiazem Hcl Ext Rel (Tiazac), 180 MG PO DAILY Fluticasone Furoate-Vilanterol (Breo Ellipta), 1 PUFF INH DAILY Fluticasone Propionate (Nasal) (Flonase Allergy Relief), 2 SPRAYS BUTCH DAILY Furosemide (Lasix), 10 MG PO DAILY Lactobacillus (Floranex), 1 TAB PO TIDM Metformin Hcl (Metformin Hcl Er), 500 MG PO DAILYBD Mirtazapine Soltab (Remeron Soltab), 30 MG PO HS Omeprazole (Prilosec), 40 MG PO DAILY Pramipexole Dihydrochloride (Pramipexole Dihydrochlori), 0.5 MG PO HS Trazodone HCl (Trazodone HCl), 200 MG PO HS Venlafaxine Hcl (Effexor Extended Rel), 150 MG PO DAILY Venlafaxine Hcl (Effexor Extended Rel), 75 MG PO DAILY Vitamin B Cmplx/Vitc/Folic Ac (Nephrocaps), 1 CAP PO DAILY Vitamin E (Vitamin E), 1,000 UNITS PO QAM Warfarin Sod (Coumadin), 2 MG PO QDD Scheduled PRN Magnesium Hydroxide (Milk Of Magnesia), 30 ML PO Q12 PRN for Constipation Physical Exam Vital Signs Date Time Temp Pulse Resp B/P (MAP) Pulse Ox O2 Delivery O2 Flow Rate FiO2 07/19/17 23:21 100 20 141/62 95 Nasal Cannula 4.0 07/19/17 22:31 130/58 07/19/17 22:30 91 28 96 Nasal Cannula 4.0 07/19/17 22:01 157/55 07/19/17 22:00 87 30 95 Nasal Cannula 4.0 07/19/17 21:54 87 07/19/17 21:53 107 18 141/66 96 Nasal Cannula 4.0 07/19/17 20:55 37.0 96 18 170/67 95 Nasal Cannula 4.0 07/19/17 20:55 95 Nasal Cannula 4.0 The patient is awake, alert and oriented 3, normocephalic and atraumatic, lying in bed and in no acute distress. HEENT--PERRL, EOMI, mucous membranes and oropharynx dry. Neck--supple. No JVD. No bruits. Thyroid normal, trachea midline, no adenopathy. Heart--normal S1 and S2. No murmurs, rubs or gallops. Lungs--baseline coarse breath sounds, no respiratory distress, no accessory muscle use. Abdomen--normal bowel sounds and soft. Nontender. Nondistended, no hernias or masses. Obese. Extremities--no cyanosis or clubbing. No edema. Dermatologic--there is generalized erythema bilateral lower extremities from feet to below the knees, and then medial extension bilaterally to the groin. Neurologic--cranial nerves II through XII grossly intact. No abnormal sensation in temporal areas bilaterally. Rheumatologic--normal range of motion. Psychiatric--normal affect. Diagnostics Laboratory Results Results Past 24 Hours Test 07/19/17 21:42 07/19/17 21:48 07/19/17 21:59 07/19/17 22:02 Range/Units Urine Color YELLOW Urine Appearance CLEAR CLEAR Urine pH 7.5 4.5-7.5 Urine Specific [place] 1.007 1.000-1.030 Urine Protein NEG NEG Urine Glucose (UA) NEG NEG Urine Ketones NEG NEG Urine Occult Blood NEG NEG Urine Nitrite NEG NEG Urine Bilirubin NEG NEG Urine Urobilinogen NEG NEG Urine Leukocyte Esterase NEG NEG Urine WBC (Auto) 1-5 0-5 /hpf Urine RBC (Auto) 0-4 0-4 /hpf Urine Hyaline Casts (Auto) 0 0-5 /lpf Urine Epithelial Cells (Auto) 20-30 0-5 /lpf Urine Bacteria (Auto) NEG NEG White Blood Count 6.00 4.8-10.8 K/uL Red Blood Count 3.91 4.2-5.4 M/uL Hemoglobin 11.2 12.0-16.0 g/dL Hematocrit 37.1 37-47 % Mean Corpuscular Volume 94.9 80-100 fL Mean Corpuscular Hemoglobin 28.6 25-34 pg Mean Corpuscular Hemoglobin Concent 30.2 32-36 g/dl Platelet Count 193 130-400 K/uL Mean Platelet Volume 10.7 7.4-10.4 fL Neutrophils (%) (Auto) 60.5 % Lymphocytes (%) (Auto) 27.3 % Monocytes (%) (Auto) 7.5 % Eosinophils (%) (Auto) 3.7 % Basophils (%) (Auto) 0.7 % Neutrophils # (Auto) 3.63 1.4-6.5 K/uL Lymphocytes # (Auto) 1.64 1.2-3.4 K/uL Monocytes # (Auto) 0.45 0.11-0.59 K/uL Eosinophils # (Auto) 0.22 0-0.5 K/uL Basophils # (Auto) 0.04 0-0.2 K/uL RDW Standard Deviation 58.3 36.4-46.3 fL RDW Coefficient of Variation 17.0 11.5-14.5 % Immature Granulocyte % (Auto) 0.3 % Immature Granulocyte # (Auto) 0.02 0.00-0.02 K/uL Nucleated RBC Absolute Count (auto) 0.02 0-0 K/uL Nucleated Red Blood Cells % 0.3 % Prothrombin Time 10.9 9.0-12.0 SECONDS Prothromb Time International Ratio 1.0 0.9-1.1 Sodium Level 139 136-145 mmol/L Potassium Level 3.4 3.5-5.1 mmol/L Chloride Level 97 98-107 mmol/L Carbon Dioxide Level 40 21-32 mmol/L Anion Gap 2.0 15.0 16-25 mmol/L Blood Urea Nitrogen 17 7-18 mg/dl Creatinine 1.04 0.60-1.20 mg/dl Estimated GFR () 60.9 Estimated GFR (Non- 52.5 BUN/Creatinine Ratio 15.9 10-20 Random Glucose 138 70-99 mg/dl Calcium Level 8.6 8.5-10.1 mg/dl Magnesium Level 1.9 1.8-2.4 mg/dl Total Bilirubin 0.3 0.2-1 mg/dl Direct Bilirubin 0.1 0-0.2 mg/dl Aspartate Amino Transf (AST/SGOT) 21 15-37 U/L Alanine Aminotransferase (ALT/SGPT) 24 12-78 U/L Alkaline Phosphatase 121 45-117 U/L Total Creatine Kinase 76 26-192 U/L Creatine Kinase MB 2.2 0.5-3.6 ng/ml Creatine Kinase MB Ratio 2.9 0-3.0 Troponin I < 0.015 0-0.045 ng/ml Total Protein 6.6 6.4-8.2 gm/dl Albumin 3.1 3.4-5.0 gm/dl Bedside Lactic Acid Venous 1.85 0.90-1.70 mmol/L Bedside Hemoglobin 11.2 12.0-16.0 g/dl Bedside Hematocrit 33 37-47 % Bedside Sodium 141 135-144 mEq/L Bedside Potassium 3.4 3.3-5.0 mEq/L Bedside Chloride 93 101-112 mEq/L Bedside Total CO2 38 24-31 mEq/l Bedside Blood Urea Nitrogen 16 7-18 mg/dl Bedside Creatinine 1.1 0.6-1.3 mg/dl Bedside Glucose (other) 146 70-99 mg/dl Bedside Ionized Calcium (Alda) 1.08 1.12-1.32 mmol/l Microbiology Results 07/19/17 Blood Culture, Received Pending 07/19/17 Blood Culture, Received Pending Diagnostic Radiology Patient Name: IKE WEAVER Unit Number: [id number] Dictated: 07/19/172136 Transcribed: 07/19/172136 EV Printed Date/Time: [~ rep prt dt]/[~ rep prt tm] [~ rep ct labl] - [~ rep ct ivnm] [facility] Radiology Department [place], [place] [address] Dictated: 07/19/172136 Transcribed: 07/19/172136 EV Printed Date/Time: [~ rep prt dt]/[~ rep prt tm] [~ rep ct labl] - [~ rep ct ivnm] [~ rep ct add3]] CT SCAN OF THE BRAIN WITHOUT IV CONTRAST CLINICAL HISTORY: Headache. COMPARISON STUDY: CT of the brain dated 06/09/2017. TECHNIQUE: Unenhanced axial CT scan of the brain is performed from the vertex to the skull base. A dose lowering technique was utilized adhering to the principles of ALARA. CT DOSE: 537.48 mGy.cm FINDINGS: Brain parenchyma: There are age-related involutional changes noting mild subcortical and periventricular microangiopathic change. There is no hemorrhage, mass effect, or evidence of acute territorial ischemia by CT criteria. Salgado-white matter is preserved. No extra-axial fluid collection is seen. Ventricles, sulci, cisterns: Prominent secondary to involutional change. Intracranial vasculature: There is atherosclerotic calcification of the cavernous carotid and vertebral arteries. Calvarium: Unremarkable. Sinuses and mastoids: The visualized paranasal sinuses are clear. There are bilateral mastoid effusions, left larger than right. Orbits: The bony orbits are grossly intact. There are bilateral ocular lens implants. IMPRESSION: There is no hemorrhage, mass effect, or evidence of acute territorial ischemia by CT criteria. Electronically signed by: Jose Zazueta M.D. 07/19/2017 9:39 PM Dictated Date/Time: 07/19/2017 9:37 PM The status of this report is Signed. Draft = Not yet reviewed or approved by Radiologist. Signed = Reviewed and approved by Radiologist. <AttendingPhy></AttendingPhy> <FamilyPhy>Ray Pereira III, CRNP</FamilyPhy> < PrimaryPhy>Ray Pereira III, CRNP</PrimaryPhy> <UnitNumber>[id number]</ UnitNumber> <VisitNumber>[id number]</VisitNumber> <PatientName>IKE WEAVER</PatientName> <DateOfBirth>1940</DateOfBirth> <Location>[facility]</Location > <ServiceDate>07/19/17</ServiceDate> <MNE>ESINDI</MNE> <OrderingPhy>Tariq Portillo DO</OrderingPhy> <OrderingPhyMNE>f rep ord dr chan</OrderingPhyMNE> < DictatingPhyMNE>f rep dict dr chan</DictatingPhyMNE> <CCListMNE>f rep ct mne</ CCListMNE> <AdmittingPhyMNE>f pt admit dr chan</AdmittingPhyMNE> <AttendingPhyMNE >f pt attend dr chan</AttendingPhyMNE> <ConsultingPhyMNE>f pt consult dr chan</ConsultingPhyMNE> <FamilyPhyMNE>f pt fam dr chan</FamilyPhyMNE> <OtherPhyMNE>f pt other dr chan</OtherPhyMNE> < PrimaryPhyMNE>f pt prim care dr chan</PrimaryPhyMNE> <ReferringPhyMNE>f pt referring dr chan</ReferringPhyMNE> Patient Name: IKE WEAVER Unit Number: [id number] Dictated: 07/19/17 2135 Transcribed: 07/19/172134 EV Printed Date/Time: [~ rep prt dt]/[~ rep prt tm] [~ rep ct labl] - [~ rep ct ivnm] [facility] Radiology Department [place], [place] [id number] Dictated: 07/19/172134 Transcribed: 07/19/172134 EV Printed Date/Time: [~ rep prt dt]/[~ rep prt tm] [~ rep ct labl] - [~ rep ct ivnm] [~ rep ct add3]] SINGLE VIEW CHEST CLINICAL HISTORY: Fever. FINDINGS: An AP, portable, upright chest radiograph is compared to study dated 06/22/2017. The examination is degraded by portable technique and apical lordotic positioning. The heart is top normal for projection. The mitral annulus is densely calcified. There is atherosclerotic calcification of the thoracic aorta. Chronic interstitial thickening is similar to previous. No airspace consolidation or large pleural effusion is identified. No pneumothorax is seen. The skeletal structures are osteopenic. The bony thorax is grossly intact. IMPRESSION: No acute cardiopulmonary abnormality. Electronically signed by: Jose Zazueta M.D. 07/19/2017 9:37 PM Dictated Date/Time: 07/19/2017 9:35 PM The status of this report is Signed. Draft = Not yet reviewed or approved by Radiologist. Signed = Reviewed and approved by Radiologist. <AttendingPhy></AttendingPhy> <FamilyPhy>Ray Pereira III, CRNP</FamilyPhy> < PrimaryPhy>Ray Pereira III, CRNP</PrimaryPhy> <UnitNumber>[id number]</ UnitNumber> <VisitNumber>[id number]</VisitNumber> <PatientName>IKE WEAVER</PatientName> <DateOfBirth>1940</DateOfBirth> <Location>[facility]</Location > <ServiceDate>07/19/17</ServiceDate> <MNE>ESINDI</MNE> <OrderingPhy>Tariq Portillo DO</OrderingPhy> <OrderingPhyMNE>f rep ord dr chan</OrderingPhyMNE> < DictatingPhyMNE>f rep dict dr chan</DictatingPhyMNE> <CCListMNE>f rep ct dustin</ CCListMNE> <AdmittingPhyMNE>f pt admit dr chan</AdmittingPhyMNE> <AttendingPhyMNE >f pt attend dr chan</AttendingPhyMNE> <ConsultingPhyMNE>f pt consult dr chan</ConsultingPhyMNE> <FamilyPhyMNE>f pt fam dr chan</FamilyPhyMNE> <OtherPhyMNE>f pt other dr chan</OtherPhyMNE> < PrimaryPhyMNE>f pt prim care dr chan</PrimaryPhyMNE> <ReferringPhyMNE>f pt referring dr chan</ReferringPhyMNE> EKG EKG shows normal sinus rhythm 82 bpm, there are no acute ST-T changes. Impression Assessment and Plan Bilateral lower extremity cellulitis-- Place on vancomycin IV and Zosyn IV. Fleeting numbness upper extremities and lower extremities-- Patient also reported transient vision changes left eye that she cannot describe further. She does not describe and does not have a physical examination temporal artery area tenderness We will check a sedimentation rate. Order MRI of brain with contrast and MRI of C-spine with contrast. Check a vitamin B12 and folic acid level. Chronic respiratory failure with chronic hypoxia-- Continue nasal cannula 4 L oxygen. Continue Pulmicort Respules, 3 oh [place], Flonase allergy relief, and have duonebs available every 2 hours as needed. Patient looks at her baseline. Atrial fibrillation/hypertension-- Continue amiodarone 100 mg daily, aspirin 81 mg daily, diltiazem extended release 180 mg daily and warfarin. Follow serial CBC with differential, BMP and magnesium levels. Anxiety with depression-- Continue buspirone 15 mg p.o. 3 times daily, Remeron SolTab 30 mg p.o. at bedtime, trazodone 200 mg p.o. at bedtime, and venlafaxine X are 225 mg p.o. daily. Diabetes mellitus-- Hold metformin [address] on Accu-Cheks before meals and at bedtime with NovoLog coverage per scale. GERD-- Change omeprazole to pantoprazole. Restless leg syndrome-- Continue pramipexole 0.5 mg p.o. at bedtime. Advanced Directives Existing Advance Directive: No Existing Living Will: No Existing Power of Medical Parasitologist: No Resuscitation Status VTE Prophylaxis Will order VTE Prophylaxis: Yes
[2017-07-20] MEDS ORDERED: ALUMINUM/MAGNESIUM/SIMETH (MAALOX MAX) 30 ML UDC PO PRN (00:30)
[2017-07-20] MEDS ORDERED: PIPERACILL/TAZOBAC CONSULT ACTIVE PRN (00:30)
[2017-07-20] MEDS ORDERED: VANCOMYCIN IV 1,000 MG in SODIUM CHLORIDE 0.9% 250ML 250 ML IV STA (00:30)
[2017-07-20] MEDS ORDERED: POLYETHYLENE (MIRALAX) 17 GM PACK PO PRN (00:30)
[2017-07-20] MEDS ORDERED: VANCOMYCIN CONSULT ACTIVE PRN (00:30)
[2017-07-20] MEDS ORDERED: ACETAMINOPHEN 325 MG TAB PO PRN (00:30)
[2017-07-20] MEDS ORDERED: MAGNESIUM HYDROXIDE SUSP 30 ML UDC PO PRN (00:30)
[2017-07-20] MEDS ORDERED: NITROGLYCERIN 0.4 MG SL PER TAB CHARGE SL PRN (00:30)
[2017-07-20] MEDS ORDERED: CEFAZOLIN SOD 2000MG/15 ML IV PUSH IV STA (00:33)
--- NOTE | 2017-07-20 00:41 | EMERGENCY ROOM VISIT NOTE ---
History Report prepared by Seth: Fady Ram Under the Supervision of: Dr. Tariq Portillo D.O. First contact with patient: 21:03 Chief Complaint: NEURO SYMPTOMS Stated Complaint: HEAD NUMBNESS History of Present Illness The patient is a 77 year old female who presents to the Emergency Room with complaints of migrating/progressing "numbness" that began today at 1500, 6 hours ago. This sensation intermittently feels like "pins and needles." She states that the numbness started in the left side of her head/face, and then migrated down her left arm and into the left side of her chest. The patient states that she has had a cough for the past 4-6 days, and did feel short of breath today. However, she says she "is always short of breath when something like this happens." She is on 4L of oxygen at baseline. The patient and her family state that the redness across her upper legs is new. She continued that there was an irregularity in the vision of her left eye, but could not describe the issue. She is on Warfarin as anticoagulation therapy. The patient denies any further fevers, nausea, vomiting, diarrhea, pain with urination, and melena. Source of History: patient, family Onset: 6 hours [employer] Position: head, chest (left), arm (left) Quality: numbness Timing: other (Progressing) Associated Symptoms: + cough, + SOB, No fevers, No nausea, No vomiting Review of Systems See HPI for pertinent positives & negatives. A total of 10 systems reviewed and were otherwise negative. Past Medical & Surgical Medical Problems: (1) Acute and chronic respiratory failure with hypoxia (2) Acute on chronic respiratory failure (3) Cellulitis of both lower extremities (4) Diab Zoey Wo Compl, Type Ii Or Unspec Type, Not Uncntrld (5) Diverticulosis Colon (W/O Ment Of Hemorrhage) (6) Hyperlipidemia Nec/Nos (7) Hypertension Nos (8) Left lower lobe pneumonia (9) Obstr Chronic Bronchitis, W (Acute) Exacerbation (10) Paroxysmal a-fib (11) Pneumonia, Organism Nos (12) Pure Hypercholesterolem (13) Symptomatic anemia (14) Tubal Ligation Status Family History Diabetes mellitus FH: cancer (lymphoma, breast cancer) Hypertension Social History Smoking Status: Former Smoker Alcohol Use: none Drug Use: none Marital Status: Housing Status: lives with family Occupation Status: retired Current/Historical Medications Scheduled Amiodarone Hcl (Amiodarone Hcl), 100 MG PO DAILY Aspirin (Aspirin Ec), 81 MG PO DAILY Atorvastatin (Lipitor), 80 MG PO DAILY Budesonide (Inhalation) (Pulmicort Respules 0.25MG/2ML), 0.25 MG NEB BID Buspirone HCl (Buspirone HCl), 15 MG PO TID Diltiazem Hcl Ext Rel (Tiazac), 180 MG PO DAILY Fluticasone Furoate-Vilanterol (Breo Ellipta), 1 PUFF INH DAILY Fluticasone Propionate (Nasal) (Flonase Allergy Relief), 2 SPRAYS BUTCH DAILY Furosemide (Lasix), 10 MG PO DAILY Lactobacillus (Floranex), 1 TAB PO TIDM Metformin Hcl (Metformin Hcl Er), 500 MG PO DAILYBD Mirtazapine Soltab (Remeron Soltab), 30 MG PO HS Omeprazole (Prilosec), 40 MG PO DAILY Pramipexole Dihydrochloride (Pramipexole Dihydrochlori), 0.5 MG PO HS Trazodone HCl (Trazodone HCl), 200 MG PO HS Venlafaxine Hcl (Effexor Extended Rel), 150 MG PO DAILY Venlafaxine Hcl (Effexor Extended Rel), 75 MG PO DAILY Vitamin B Cmplx/Vitc/Folic Ac (Nephrocaps), 1 CAP PO DAILY Vitamin E (Vitamin E), 1,000 UNITS PO QAM Warfarin Sod (Coumadin), 2 MG PO QDD Scheduled PRN Magnesium Hydroxide (Milk Of Magnesia), 30 ML PO Q12 PRN for Constipation Allergies Coded Allergies: Mushroom (Verified Allergy, Unknown, 07/19/17) Theophyllines (Verified Allergy, Unknown, Unknown, 07/19/17) Reported by daughter and [facility]. Codeine (Verified Adverse Reaction, Severe, HYPERVENTILATES, 07/19/17) Morphine (Verified Adverse Reaction, Severe, Causes Afib, 07/19/17) Physical Exam Vital Signs Date Time Temp Pulse Resp B/P (MAP) Pulse Ox O2 Delivery O2 Flow Rate FiO2 07/19/17 23:21 100 20 141/62 95 Nasal Cannula 4.0 07/19/17 22:31 130/58 07/19/17 22:30 91 28 96 Nasal Cannula 4.0 07/19/17 22:01 157/55 07/19/17 22:00 87 30 95 Nasal Cannula 4.0 07/19/17 21:54 87 07/19/17 21:53 107 18 141/66 96 Nasal Cannula 4.0 07/19/17 20:55 37.0 96 18 170/67 95 Nasal Cannula 4.0 07/19/17 20:55 95 Nasal Cannula 4.0 Physical Exam GENERAL: Sitting up in bed, alert, morbidly obese appearing, on 4 L of nasal cannula. EYE EXAM: normal conjunctiva. OROPHARYNX: no exudate, no erythema, lips, buccal mucosa, and tongue normal and mucous membranes are moist NECK: supple, no nuchal rigidity, no adenopathy, non-tender LUNGS: There is mild wheezing bilaterally. Normal chest wall mechanics HEART: no murmurs, S1 normal and S2 normal ABDOMEN: abdomen soft, non-tender, normo-active bowel sounds, no masses, no rebound or guarding. BACK: Back is symmetrical on inspection and there is no deformity, no midline tenderness, no CVA tenderness. SKIN: no rashes and no bruising UPPER EXTREMITIES: upper extremities are grossly normal. LOWER EXTREMITIES: There is pitting edema bilaterally. There is lower extremity erythema to the left foot, posterior calf, and thing. The right lower extremity has erythema of the right thigh tracking up to the groin. NEURO EXAM: Normal sensorium, cranial nerves II-XII intact, normal speech, no weakness of arms, no gross weakness of legs. No drift. Finger to nose intact. Gross sensation intact. Medical Decision & Procedures ER Provider Diagnostic Interpretation: Radiology results as stated below per my review and the radiologist's interpretation: SINGLE VIEW CHEST CLINICAL HISTORY: Fever. FINDINGS: An AP, portable, upright chest radiograph is compared to study dated 06/22/2017. The examination is degraded by portable technique and apical lordotic positioning. The heart is top normal for projection. The mitral annulus is densely calcified. There is atherosclerotic calcification of the thoracic aorta. Chronic interstitial thickening is similar to previous. No airspace consolidation or large pleural effusion is identified. No pneumothorax is seen. The skeletal structures are osteopenic. The bony thorax is grossly intact. IMPRESSION: No acute cardiopulmonary abnormality. Electronically signed by: Jose Zazueta M.D. 07/19/2017 9:37 PM Dictated Date/Time: 07/19/2017 9:[address] SCAN OF THE BRAIN WITHOUT IV CONTRAST CLINICAL HISTORY: Headache. COMPARISON STUDY: CT of the brain dated 06/09/2017. TECHNIQUE: Unenhanced axial CT scan of the brain is performed from the vertex to the skull base. A dose lowering technique was utilized adhering to the principles of ALARA. CT DOSE: 537.48 mGy.cm FINDINGS: Brain parenchyma: There are age-related involutional changes noting mild subcortical and periventricular microangiopathic change. There is no hemorrhage, mass effect, or evidence of acute territorial ischemia by CT criteria. Salgado-white matter is preserved. No extra-axial fluid collection is seen. Ventricles, sulci, cisterns: Prominent secondary to involutional change. Intracranial vasculature: There is atherosclerotic calcification of the cavernous carotid and vertebral arteries. Calvarium: Unremarkable. Sinuses and mastoids: The visualized paranasal sinuses are clear. There are bilateral mastoid effusions, left larger than right. Orbits: The bony orbits are grossly intact. There are bilateral ocular lens implants. IMPRESSION: There is no hemorrhage, mass effect, or evidence of acute territorial ischemia by CT criteria. Electronically signed by: Jose Zazueta M.D. 07/19/2017 9:39 PM Dictated Date/Time: 07/19/2017 9:37 PM Laboratory Results 07/19/17 21:48 Red Blood Count 3.91, Mean Corpuscular Volume 94.9, Mean Corpuscular Hemoglobin 28.6, Mean Corpuscular Hemoglobin Concent 30.2, Mean Platelet Volume 10.7, Neutrophils (%) (Auto) 60.5, Lymphocytes (%) (Auto) 27.3, Monocytes (%) (Auto) 7.5, Eosinophils (%) (Auto) 3.7, Basophils (%) (Auto) 0.7, Neutrophils # (Auto) 3.63, Lymphocytes # (Auto) 1.64, Monocytes # (Auto) 0.45, Eosinophils # (Auto) 0.22, Basophils # (Auto) 0.04 07/19/17 21:48 Test 07/19/17 21:42 07/19/17 21:48 07/19/17 21:59 07/19/17 22:02 Urine Color YELLOW Urine Appearance CLEAR (CLEAR) Urine pH 7.5 (4.5-7.5) Urine Specific [place] 1.007 (1.000-1.030) Urine Protein NEG (NEG) Urine Glucose (UA) NEG (NEG) Urine Ketones NEG (NEG) Urine Occult Blood NEG (NEG) Urine Nitrite NEG (NEG) Urine Bilirubin NEG (NEG) Urine Urobilinogen NEG (NEG) Urine Leukocyte Esterase NEG (NEG) Urine WBC (Auto) 1-5 /hpf (0-5) Urine RBC (Auto) 0-4 /hpf (0-4) Urine Hyaline Casts (Auto) 0 /lpf (0-5) Urine Epithelial Cells (Auto) 20-30 /lpf (0-5) Urine Bacteria (Auto) NEG (NEG) White Blood Count 6.00 K/uL (4.8-10.8) Red Blood Count 3.91 M/uL (4.2-5.4) Hemoglobin 11.2 g/dL (12.0-16.0) Hematocrit 37.1 % (37-47) Mean Corpuscular Volume 94.9 fL (80-100) Mean Corpuscular Hemoglobin 28.6 pg (25-34) Mean Corpuscular Hemoglobin Concent 30.2 g/dl (32-36) Platelet Count 193 K/uL (130-400) Mean Platelet Volume 10.7 fL (7.4-10.4) Neutrophils (%) (Auto) 60.5 % Lymphocytes (%) (Auto) 27.3 % Monocytes (%) (Auto) 7.5 % Eosinophils (%) (Auto) 3.7 % Basophils (%) (Auto) 0.7 % Neutrophils # (Auto) 3.63 K/uL (1.4-6.5) Lymphocytes # (Auto) 1.64 K/uL (1.2-3.4) Monocytes # (Auto) 0.45 K/uL (0.11-0.59) Eosinophils # (Auto) 0.22 K/uL (0-0.5) Basophils # (Auto) 0.04 K/uL (0-0.2) RDW Standard Deviation 58.3 fL (36.4-46.3) RDW Coefficient of Variation 17.0 % (11.5-14.5) Immature Granulocyte % (Auto) 0.3 % Immature Granulocyte # (Auto) 0.02 K/uL (0.00-0.02) Nucleated RBC Absolute Count (auto) 0.02 K/uL (0-0) Nucleated Red Blood Cells % 0.3 % Prothrombin Time 10.9 SECONDS (9.0-12.0) Prothromb Time International Ratio 1.0 (0.9-1.1) Estimated GFR () 60.9 Estimated GFR (Non- 52.5 BUN/Creatinine Ratio 15.9 (10-20) Calcium Level 8.6 mg/dl (8.5-10.1) Magnesium Level 1.9 mg/dl (1.8-2.4) Total Bilirubin 0.3 mg/dl (0.2-1) Direct Bilirubin 0.1 mg/dl (0-0.2) Aspartate Amino Transf (AST/SGOT) 21 U/L (15-37) Alanine Aminotransferase (ALT/SGPT) 24 U/L (12-78) Alkaline Phosphatase 121 U/L (45-117) Total Creatine Kinase 76 U/L (26-192) Creatine Kinase MB 2.2 ng/ml (0.5-3.6) Creatine Kinase MB Ratio 2.9 (0-3.0) Troponin I < 0.015 ng/ml (0-0.045) Total Protein 6.6 gm/dl (6.4-8.2) Albumin 3.1 gm/dl (3.4-5.0) Bedside Lactic Acid Venous 1.85 mmol/L (0.90-1.70) Bedside Hemoglobin 11.2 g/dl (12.0-16.0) Bedside Hematocrit 33 % (37-47) Bedside Sodium 141 mEq/L (135-144) Bedside Potassium 3.4 mEq/L (3.3-5.0) Bedside Chloride 93 mEq/L (101-112) Bedside Total CO2 38 mEq/l (24-31) Anion Gap 15.0 mmol/L (16-25) Bedside Blood Urea Nitrogen 16 mg/dl (7-18) Bedside Creatinine 1.1 mg/dl (0.6-1.3) Bedside Glucose (other) 146 mg/dl (70-99) Bedside Ionized Calcium ([place]) 1.08 mmol/l (1.12-1.32) Laboratory results per my review. Medications Administered Medications (Trade) Dose Ordered Sig/Buddy Route Start Time Stop Time Status Last Admin Dose Admin Vancomycin HCl 2000 mg/Sodium Chloride 540 ml @ 200 mls/hr ONE STAT IV 07/19/17 23:02 07/20/17 01:43 07/19/17 23:17 200 MLS/HR ECG Per My Interpretation Indication: SOB/dyspnea, other (Numbness) Rate (beats per minute): 87 Rhythm: sinus rhythm Findings: other (Normal [place], Poor basline for interpretatin, No acute CHEMA/STD) ED Course ED COURSE: Vital signs were reviewed and showed tachycardic and hypertensive vitals. The patients medical record was reviewed The above diagnostic studies were performed and reviewed. ED treatments and interventions as stated above. 2106: The patient was evaluated in room C6. A complete history and physical examination was performed. 2301: Ordered Vancomycin HCl 540 mL @ 200 mL/hr IV. 2311: I discussed the case with Dr. Palomino - [facility] Hospitalist. He will evaluate the patient for further treatment. 2314: Upon reevaluation, the patient is resting in bed.I discussed my findings with the patient and she understands and agrees with the treatment plan. Based on the patients age, coexisting illnesses, exam and lab findings the decision to treat as an inpatient was made. The patient remained stable while under my care. The patient will be evaluated for further management. Medical Decision Differential diagnoses includes but is not limited to acute coronary syndrome, myocardial infarction, pericarditis, pulmonary embolus, aortic dissection, pneumonia, pneumothorax, musculoskeletal, shingles, esophageal. Patient is a 77-year-old female presents to ER for mild headache, left arm which radiated down to the chest. Patient family also notes that she has redness in her lower extremities. This is been gradually worsening over the past 24 hours. She does have a cough for the past 2-3 days. Headache and left- sided chest pain starting around 3 PM. CBC along with BMP, LFTs, bilirubin and troponin were remarkable for a CO2 of 40. Chronically on 4 L nasal cannula. UA was negative. Chest x-ray and EKG were unremarkable. Patient was treated for cellulitis of bilateral lower extremities with IV vancomycin and Ancef. There were updated at bedside and admitted for further workup. Medication Reconcilliation Current Medication List: was personally reviewed by me Blood Pressure Screening Patient's blood pressure: Normal blood pressure Consults Time Called: 2304 Consulting Physician: Dr. Candelario SPANN Hospitalist Returned Call: [phone] I discussed the case with Dr. Candelario SPANN Hospitalist. He will evaluate the patient for further treatment. Impression Primary Impression: Cellulitis Additional Impression: Chest pain Scribe Attestation The scribe's documentation has been prepared under my direction and personally reviewed by me in its entirety. I confirm that the note above accurately reflects all work, treatment, procedures, and medical decision making performed by me. Departure Information Dispostion Being Evaluated By Hospitalist Referrals Ray Pereira III, CRNP (PCP) Patient Instructions My [facility] Problem Qualifiers Primary Impression: Cellulitis Site of cellulitis: unspecified site Qualified Codes: L03.90 - Cellulitis, unspecified Additional Impression: Chest pain Chest pain type: unspecified Qualified Codes: R07.9 - Chest pain, unspecified
[2017-07-20] MEDS ORDERED: ONDANSETRON INJ 2 MG/ML 2 ML VIAL IV PRN (00:45)
[2017-07-20] MEDS ORDERED: LEVALBUTEROL/IPRATROPIUM NEB INH PRN (00:45)
[2017-07-20] MEDS ORDERED: ALBUT/IPRATROP 3MG/0.5MG NEB 3 ML VIAL INH ONE (00:45)
[2017-07-20] MEDS ORDERED: PATIENT'S HEIGHT AND/OR WEIGHT NEEDED SCH (01:30)
[2017-07-20] MEDS ORDERED: PIPERACILL/TAZOBAC IV 4.5 GM in DEXTROSE 5% 100ML IV ONE (02:00)
[2017-07-20] MEDS: LEVALBUTEROL 1.25MG/0.5ML NEB INH PRN ×3 (05:45→19:35)
[2017-07-20] MEDS: IPRATROPIUM BROMIDE NEB SOLN 0.02% 2.5 ML VIAL INH PRN ×3 (05:45→19:35)
[2017-07-20] MEDS ORDERED: PIPERACILL/TAZOBAC IV 3.375 GM in DEXTROSE 5% 100ML 100 ML IV SCH (06:00)
[2017-07-20] MEDS: BUDESONIDE 0.25 MG/2 ML VIAL (PULMICORT) INH SCH ×2 (07:21→19:34)
[2017-07-20] MEDS: LACTOBACILLUS ACIDOPHILUS (FLORANEX) TAB PO SCH ×4 (08:05→21:18)
[2017-07-20] MEDS: BusPIRone 15 MG TAB PO SCH ×3 (08:06→21:17)
[2017-07-20] MEDS: ASPIRIN 81 MG ECTAB PO SCH (08:06)
[2017-07-20] MEDS: ATORVASTATIN 40 MG TAB PO SCH (08:06)
[2017-07-20] MEDS: AMIODARONE 200 MG TAB PO SCH (08:06)
[2017-07-20] MEDS: PANTOprazole SOD 40 MG TAB PO SCH (08:07)
[2017-07-20] MEDS: DILTIAZEM HCL (TIAzac) 180 MG CAPCR PO SCH (08:07)
[2017-07-20] MEDS: NEPHROCAPS PO SCH (08:07)
[2017-07-20] MEDS: VENLAFAXINE HCL XR 150 MG CAPXR PO SCH (08:07)
[2017-07-20] MEDS: VENLAFAXINE HCL XR 75 MG CAPXR PO SCH (08:07)
[2017-07-20] MEDS: FLUTICASONE PROPIONATE NA SPR 16 GM BTL NAE SCH (08:08)
[2017-07-20] MEDS: PIPERACILL/TAZOBAC IV 4.5 GM in DEXTROSE 5% 100ML IV SCH ×2 (08:14→16:09)
--- NOTE | 2017-07-20 08:50 | Hospitalist Progress Note ---
Hospitalist Progress Note Date of Service Jul 20, 2017. Subjective Pt evaluation today including: conversation w/ patient, physical exam, chart review, lab review, review of studies Pain: none PO Intake: Fair Voiding: no voiding problems The patient was seen and examined this morning. Pt reports doing slightly better today compared to yesterday. She states "my forehead still feels a little numb". She denies any numbness into her neck or upper extremities this morning. She has been ambulating fairly well. Her redness of the lower extremities is slightly improved. It still does extend up the middle thighs bilaterally. She denies any pain associated with this. Pt notes she feels warm , but denies fever. Constitutional: + sweats, + fatigue, No fever, No chills Eyes: No redness, No discharge, No diplopia ENT: No nasal symptoms, No sore throat, No trouble swallowing Respiratory: No shortness of breath Cardiovascular: No chest pain Abdomen: No pain, No nausea, No vomiting, No diarrhea, No constipation Musculoskeletal: + swelling (BLE), No joint pain, No muscle pain, No calf pain Neurologic: No weakness, No numbness/tingling Skin: + see HPI Objective Vital Signs Date Time Temp Pulse Resp B/P (MAP) Pulse Ox O2 Delivery O2 Flow Rate FiO2 07/20/17 07:27 36.7 86 20 150/66 (94) 96 Nasal Cannula 4.0 07/20/17 07:21 80 16 98 Nasal Cannula 4.0 07/20/17 05:45 90 16 96 Nasal Cannula 4.0 07/20/17 04:00 Room Air 07/20/17 01:30 36.7 99 18 156/82 Nasal Cannula 4.0 07/20/17 00:46 93 22 141/68 97 Nebulizer 07/19/17 23:21 100 20 141/62 95 Nasal Cannula 4.0 07/19/17 22:31 130/58 07/19/17 22:30 91 28 96 Nasal Cannula 4.0 07/19/17 22:01 157/55 07/19/17 22:00 87 30 95 Nasal Cannula 4.0 07/19/17 21:54 87 07/19/17 21:53 107 18 141/66 96 Nasal Cannula 4.0 07/19/17 20:55 37.0 96 18 170/67 95 Nasal Cannula 4.0 07/19/17 20:55 95 Nasal Cannula 4.0 Physical Exam General Appearance: WD/WN, no apparent distress, + obese Eyes: PERRL, EOMI ENT: hearing grossly normal, pharynx normal Neck: supple, no JVD Respiratory/Chest: lungs clear, no respiratory distress, no accessory muscle use Cardiovascular: regular rate, rhythm, + systolic murmur Abdomen: normal bowel sounds, non tender, soft Extremities: + pertinent finding (+ erythema and edema of BLE extending up mid proximal thighs. Stop mid thigh on posterior aspect. Nontender to touch. ) Neurologic/Psychiatric: alert, oriented x 3 Skin: normal color, warm/dry Laboratory Results Last 24 Hours Test 07/19/17 21:42 07/19/17 21:48 07/19/17 21:59 07/19/17 22:02 Urine Color YELLOW Urine Appearance CLEAR Urine pH 7.5 Urine Specific [place] 1.007 Urine Protein NEG Urine Glucose (UA) NEG Urine Ketones NEG Urine Occult Blood NEG Urine Nitrite NEG Urine Bilirubin NEG Urine Urobilinogen NEG Urine Leukocyte Esterase NEG Urine WBC (Auto) 1-5 /hpf Urine RBC (Auto) 0-4 /hpf Urine Hyaline Casts (Auto) 0 /lpf Urine Epithelial Cells (Auto) 20-30 /lpf Urine Bacteria (Auto) NEG White Blood Count 6.00 K/uL Red Blood Count 3.91 M/uL Hemoglobin 11.2 g/dL Hematocrit 37.1 % Mean Corpuscular Volume 94.9 fL Mean Corpuscular Hemoglobin 28.6 pg Mean Corpuscular Hemoglobin Concent 30.2 g/dl Platelet Count 193 K/uL Mean Platelet Volume 10.7 fL Neutrophils (%) (Auto) 60.5 % Lymphocytes (%) (Auto) 27.3 % Monocytes (%) (Auto) 7.5 % Eosinophils (%) (Auto) 3.7 % Basophils (%) (Auto) 0.7 % Neutrophils # (Auto) 3.63 K/uL Lymphocytes # (Auto) 1.64 K/uL Monocytes # (Auto) 0.45 K/uL Eosinophils # (Auto) 0.22 K/uL Basophils # (Auto) 0.04 K/uL RDW Standard Deviation 58.3 fL RDW Coefficient of Variation 17.0 % Immature Granulocyte % (Auto) 0.3 % Immature Granulocyte # (Auto) 0.02 K/uL Nucleated RBC Absolute Count (auto) 0.02 K/uL Nucleated Red Blood Cells % 0.3 % Prothrombin Time 10.9 SECONDS Prothromb Time International Ratio 1.0 Sodium Level 139 mmol/L Potassium Level 3.4 mmol/L Chloride Level 97 mmol/L Carbon Dioxide Level 40 mmol/L Anion Gap 2.0 mmol/L 15.0 mmol/L Blood Urea Nitrogen 17 mg/dl Creatinine 1.04 mg/dl Estimated GFR () 60.9 Estimated GFR (Non- 52.5 BUN/Creatinine Ratio 15.9 Random Glucose 138 mg/dl Calcium Level 8.6 mg/dl Magnesium Level 1.9 mg/dl Total Bilirubin 0.3 mg/dl Direct Bilirubin 0.1 mg/dl Aspartate Amino Transf (AST/SGOT) 21 U/L Alanine Aminotransferase (ALT/SGPT) 24 U/L Alkaline Phosphatase 121 U/L Total Creatine Kinase 76 U/L Creatine Kinase MB 2.2 ng/ml Creatine Kinase MB Ratio 2.9 Troponin I < 0.015 ng/ml Total Protein 6.6 gm/dl Albumin 3.1 gm/dl Bedside Lactic Acid Venous 1.85 mmol/L Bedside Hemoglobin 11.2 g/dl Bedside Hematocrit 33 % Bedside Sodium 141 mEq/L Bedside Potassium 3.4 mEq/L Bedside Chloride 93 mEq/L Bedside Total CO2 38 mEq/l Bedside Blood Urea Nitrogen 16 mg/dl Bedside Creatinine 1.1 mg/dl Bedside Glucose (other) 146 mg/dl Bedside Ionized Calcium ([place]) 1.08 mmol/l Test 07/20/17 06:13 07/20/17 08:42 Erythrocyte Sedimentation Rate 17 mm/hr Vitamin B12 Level 368 pg/mL Folate 11.61 ng/mL Assessment and Plan Bilateral lower extremity cellulitis- - Continue on vancomycin IV and Zosyn IV starting 07/19 - Per pt, erythema slightly improved. Pt is ambulating without difficulty to bathroom. Fleeting numbness upper extremities and lower extremities-- - Pt reports having a numbness in her forehead today - it has resolved in her extremities. - Will check ESR with am labs tomorrow. - Order MRI of brain with contrast and MRI of C-spine with contrast. - Will give ativan 1 mg PO 30 min prior to scan as pt is claustrophobic. - vitamin B12 and folic acid level are WNL Chronic respiratory failure with chronic hypoxia-- - Continue nasal cannula 4 L oxygen. - Continue Pulmicort Respules, Flonase allergy relief, and have duonebs available q2hprn Atrial fibrillation/hypertension-- - Continue amiodarone 100 mg daily, aspirin 81 mg daily, diltiazem extended release 180 mg daily and warfarin. - Follow serial CBC with differential, BMP and magnesium levels. Anxiety with depression-- - Continue buspirone 15 mg p.o. 3 times daily, Remeron SolTab 30 mg p.o. at bedtime, trazodone 200 mg p.o. at bedtime, and venlafaxine XR 225 mg p.o. daily. Diabetes mellitus-- - Hold metformin 500 mg p.o. daily. - Place on Accu-Cheks before meals and at bedtime with NovoLog coverage per scale. GERD - Change omeprazole to pantoprazole. Restless leg syndrome - Continue pramipexole 0.5 mg p.o. at bedtime. DVT ppx: on coumadin CODE STATUS: FULL CODE
[2017-07-20] MEDS ORDERED: HEPARIN SOD 5000 UNIT/0.5 ML CARP SQ SCH (09:00)
--- NOTE | 2017-07-20 09:02 | Pharmacy Progress Note ---
Pharmacy Abx Initial Consult Date of Service Jul 20, 2017. Pharmacy Dosing Scope Date of Consult: 07/19/17 Consultation requested by: Dr. Palomino Pharmacy is consulted to initiate Vancomycin/Zosyn IV dosing therapy, order appropriate labs and adjust drug dose/frequency. Subjective The patient is a 77 year old female admitted on Jul 20, 2017 at 00:23. Objective Height (Feet): 5 Height (Inches): 3.00 Weight (Kilograms): 111.600 Vital Signs (Past 12Hrs) Vital Signs Past 12 Hours Date Time Temp Pulse Resp B/P (MAP) Pulse Ox O2 Delivery O2 Flow Rate FiO2 07/20/17 07:27 36.7 86 20 150/66 (94) 96 Nasal Cannula 4.0 07/20/17 07:21 80 16 98 Nasal Cannula 4.0 07/20/17 05:45 90 16 96 Nasal Cannula 4.0 07/20/17 04:00 Room Air 07/20/17 01:30 36.7 99 18 156/82 Nasal Cannula 4.0 07/20/17 00:46 93 22 141/68 97 Nebulizer 07/19/17 23:21 100 20 141/62 95 Nasal Cannula 4.0 07/19/17 22:31 130/58 07/19/17 22:30 91 28 96 Nasal Cannula 4.0 07/19/17 22:01 157/55 07/19/17 22:00 87 30 95 Nasal Cannula 4.0 07/19/17 21:54 87 07/19/17 21:53 107 18 141/66 96 Nasal Cannula 4.0 07/19/17 20:55 37.0 96 18 170/67 95 Nasal Cannula 4.0 07/19/17 20:55 95 Nasal Cannula 4.0 Lab Results (24Hrs) Laboratory Tests (24 Hours) Test 07/19/17 21:48 07/20/17 06:13 White Blood Count 6.00 K/uL (4.8-10.8) Red Blood Count 3.91 M/uL (4.2-5.4) L Hemoglobin 11.2 g/dL (12.0-16.0) L Hematocrit 37.1 % (37-47) Mean Corpuscular Volume 94.9 fL (80-100) Mean Corpuscular Hemoglobin 28.6 pg (25-34) Mean Corpuscular Hemoglobin Concent 30.2 g/dl (32-36) L Platelet Count 193 K/uL (130-400) Mean Platelet Volume 10.7 fL (7.4-10.4) H Neutrophils (%) (Auto) 60.5 % Lymphocytes (%) (Auto) 27.3 % Monocytes (%) (Auto) 7.5 % Eosinophils (%) (Auto) 3.7 % Basophils (%) (Auto) 0.7 % Neutrophils # (Auto) 3.63 K/uL (1.4-6.5) Lymphocytes # (Auto) 1.64 K/uL (1.2-3.4) Monocytes # (Auto) 0.45 K/uL (0.11-0.59) Eosinophils # (Auto) 0.22 K/uL (0-0.5) Basophils # (Auto) 0.04 K/uL (0-0.2) Total Creatine Kinase 76 U/L (26-192) Erythrocyte Sedimentation Rate 17 mm/hr (0-21) Micro Results Date/Time Source Procedure Growth Status 07/19/17 21:48 Blood Blood Culture Pending Received 07/19/17 21:48 Blood Blood Culture Pending Received Risk Factors for Resistance * Hospitalization for 48 hours or more within the past 90 days Assessment & Plan Assessment Ms. Church is a 77yo F p/w b/l LE cellulitis. She is afebrile, nil leukocytosis. qSOFA score of 0 in the ED. Renal fxn looks to be close to her baseline. Population p'kinetics will be difficult to extrapolate to a patient of her habitus. BC are both pending. She was recently admitted in May 2017. Now being started on Vanco/Zosyn. No h/o MDRO. Plan Vancomycin: * Vancomycin 2000mg (18mg/kg) to quickly achieve a peak * Then Vancomycin 1500mg (13.5mg/kg) q12 set to start at 1000 * Trough ordered for 07/21/17 @0930, I surmise she may accumulate vanco and will order a trough prior to the third maintenance dose * Goal trough until c/s's result: 15-20mcg/mL Zosyn: * EI Zosyn 4.5g q8, appropriate for clinical status and eCrCl>20cc/min Pharmacy will continue to follow and will adjust dose/frequency as necessary. Thank you.
[2017-07-20 09:31] LABS: CREATININE 1.13 mg/dl (0.60-1.20)
[2017-07-20] MEDS: VANCOMYCIN IV 1,500 MG in SODIUM CHLORIDE 0.9% 500ML 500 ML IV SCH ×2 (10:04→21:58)
[2017-07-20] MEDS ORDERED: NURSING VERBAL MED ORDER ONE (14:15)
[2017-07-20] MEDS ORDERED: LORAZEPAM INJ 0.5 MG in SYRINGE 0.75 ML IV PRN (14:15)
[2017-07-20] MEDS ORDERED: LORAZEPAM 1 MG TAB PO ONE (14:30)
[2017-07-20] MEDS ORDERED: GADAVIST IV PRN (15:45)
--- NOTE | 2017-07-20 16:10 | DIAGNOSTIC IMAGING REPORT ---
MRI OF THE BRAIN COMBO CLINICAL HISTORY: Headache. Facial numbness. COMPARISON STUDY: MRI of the brain dated 06/09/2017. TECHNIQUE: MRI of the brain was performed utilizing various T1 and T2-weighted sequences in the axial, sagittal, and coronal planes. Contrast-enhanced sequences were acquired following the administration of 11 cc of Gadavist. FINDINGS: Brain parenchyma: There are age-related involutional changes minimal periventricular microangiopathic disease. There is no hemorrhage or mass effect. There is no restricted diffusion to suggest acute ischemia. No enhancing mass lesion is identified on the postcontrast images. Salgado-white matter differentiation is preserved. No extra-axial fluid collection is seen. The cerebellar tonsils are normal in configuration. Ventricles, sulci, and cisterns: Prominent secondary to involutional change. Pituitary and sella: Partially empty sella is incidentally noted. Intracranial vasculature: Normal flow voids are maintained at the skull base. Orbits: The bony orbits are grossly intact. Orbital contents are normal in appearance noting bilateral ocular lens implants. Sinuses and mastoids: There are large bilateral mastoid effusions. The paranasal sinuses are clear. Calvarium: Unremarkable. Cervical cord: Partially visualized cervical spinal cord is normal in morphology and signal intensity. IMPRESSION: 1. No acute intracranial abnormality. 2. Mastoid effusions. Electronically signed by: Jose Zazueta M.D. 07/20/2017 4:08 PM Dictated Date/Time: 07/20/2017 4:05 PM
--- NOTE | 2017-07-20 16:39 | DIAGNOSTIC IMAGING REPORT ---
CERVICAL SPINE COMBO HISTORY: 77 years-old Female numbness in face patient presents with acute facial numbness with radiation into the left arm and left lower extremity. History of headache and TIA COMPARISON: Brain MRI of same day TECHNIQUE: Multiplanar multisequence MRI of the cervical spine was obtained both with and without the use of 11 mL Gadavist FINDINGS: All the sequences are very motion degraded with several sequences nearly nondiagnostic. 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 There is mild reversal of the normal cervical lordosis with slight kyphotic curvature centered at C5-C6. No evidence of acute fracture or subluxation. No focal bone marrow or soft tissue edema. The imaged posterior fossa structures demonstrate no acute abnormality. The postcontrast images are very motion degraded. There is however no abnormal enhancement or enhancing lesions identified. C2-C3: Mild intervertebral disc space narrowing and uncovertebral spurring with mild facet arthrosis. No central canal or foraminal narrowing. C3-C4: Mild intervertebral disc space narrowing with uncovertebral spurring and small circumferential disc bulge with mild facet arthrosis. Mild flattening of the ventral thecal sac without significant central canal or left foraminal narrowing identified. There is suggestion of mild right foraminal narrowing. C4-C5: Mild intervertebral disc space narrowing with uncovertebral spurring and small circumferential disc bulge with mild facet arthrosis. Suggestion of mild right foraminal narrowing with the left foramen and central canal generally patent. C5-C6: Moderate intervertebral disc space narrowing with broad-based posterior disc osteophyte complex and mild facet arthrosis. Flattening of the ventral thecal sac without significant central canal narrowing. Mild to moderate bilateral foraminal stenosis. C6-C7: Moderate intervertebral disc space narrowing with broad-based posterior disc osteophyte complex and moderate facet arthrosis. Mild flattening of the ventral thecal sac without significant central canal narrowing. Motion artifact obscures the neuroforamen at this level. C7-T1: Mild uncovertebral spurring and facet arthropathy. No large disc bulge, significant central canal or foraminal narrowing identified. IMPRESSION: 1. Very motion degraded study limits evaluation of the central canal and neuroforamen. Within the limitations of the study, there is no high-grade central canal or foraminal narrowing identified. 2. Discogenic degenerative changes are most pronounced at the C5-C6 and C6-C7 levels with resultant foraminal narrowing as above. 3. Slight reversal of the normal cervical lordosis centered at C5-C6. 4. No acute fracture, subluxation or focal bone marrow edema. 5. No abnormal enhancement identified. The above report was generated using voice recognition software. It may contain grammatical, syntax or spelling errors. Electronically signed by: Bandar Guzman M.D. 07/20/2017 4:37 PM Dictated Date/Time: 07/20/2017 4:12 PM
[2017-07-20] MEDS ORDERED: DEXTROSE 50% 50 ML SYR IV PRN (16:45)
[2017-07-20] MEDS ORDERED: GLUCOSE 40% GEL 15 GM TUBE PO PRN (16:45)
[2017-07-20] MEDS ORDERED: GLUCOSE 10 TABS/TUBE PO PRN (16:45)
[2017-07-20] MEDS ORDERED: GLUCAGON FOR INJ 1 MG VIAL SQ PRN (16:45)
[2017-07-20] MEDS ORDERED: WARFARIN SOD 2 MG TAB PO SCH (17:00)
[2017-07-20] MEDS: INSULIN ASPART 100 UNITS/ML 3 ML PEN SC SCH ×2 (17:14→21:00)
[2017-07-20] MEDS: TRAZODONE HCL 100 MG TAB PO SCH (21:18)
[2017-07-20] MEDS: PRAMIPEXOLE DIHYDROCHLORIDE 0.5 MG TAB PO SCH (21:19)
[2017-07-20] MEDS: MIRTAZAPINE SOLTAB 15 MG PO SCH (21:19)
[2017-07-21] VITALS (17 sets, daily range): BP systolic 96–153; BP diastolic 62–71; PULSE 75–101; TEMP 36.4–37.5; O2SAT 88–99; BMI 44.4
[2017-07-21] MEDS: PIPERACILL/TAZOBAC IV 4.5 GM in DEXTROSE 5% 100ML IV SCH ×3 (00:49→16:39)
[2017-07-21] MEDS: IPRATROPIUM BROMIDE NEB SOLN 0.02% 2.5 ML VIAL INH PRN ×3 (04:12→11:55)
[2017-07-21] MEDS: LEVALBUTEROL 1.25MG/0.5ML NEB INH PRN ×3 (04:12→11:55)
[2017-07-21 06:51] LABS: PTT PATIENT 23.6 SECONDS (21.0-31.0)
[2017-07-21 06:59] LABS: HEMATOCRIT 35.8 % (37-47); HEMOGLOBIN 10.5 g/dL (12.0-16.0); MEAN CELL VOLUME 97.3 fL (80-100); MEAN CORPUSCULAR HEMOGLOBIN 28.5 pg (25-34); MEAN CORPUSCULAR HGB CONC 29.3 g/dl (32-36); MEAN PLATELET VOLUME 10.7 fL (7.4-10.4); PLATELET COUNT 170 K/uL (130-400); RED CELL DISTRIBUTION WIDTH CV 17.1 % (11.5-14.5); RED CELL DISTRIBUTION WIDTH SD 60.3 fL (36.4-46.3); WHITE BLOOD COUNT 5.95 K/uL (4.8-10.8)
[2017-07-21 07:00] LABS: BASO % 0.8 %; BASO ABS # 0.05 K/uL (0-0.2); EOS % 3.2 %; EOS ABS # 0.19 K/uL (0-0.5); IG# 0.02 K/uL (0.00-0.02); LYMPH % 18.7 %; LYMPH ABS # 1.11 K/uL (1.2-3.4); MONO % 7.1 %; MONO ABS # 0.42 K/uL (0.11-0.59); NEUT % 69.9 %; NEUT ABS # 4.16 K/uL (1.4-6.5)
[2017-07-21] MEDS: BUDESONIDE 0.25 MG/2 ML VIAL (PULMICORT) INH SCH ×2 (07:10→19:03)
[2017-07-21 07:21] LABS: HEMOGLOBIN A1C 8.1 % (4.5-5.6)
[2017-07-21 07:36] LABS: CALCIUM 8.4 mg/dl (8.5-10.1); CREATININE 0.86 mg/dl (0.60-1.20)
[2017-07-21] MEDS ORDERED: ENOXAPARIN 120 MG/0.8 ML SYR SQ SCH (08:00)
--- NOTE | 2017-07-21 08:33 | Hospitalist Progress Note ---
Hospitalist Progress Note Date of Service Jul 21, 2017. Subjective Pt evaluation today including: conversation w/ patient, physical exam, chart review, lab review, review of studies Pain: None PO Intake: Good Voiding: no voiding problems The patient was seen and examined this morning. Pt reports feeling tired this morning. She is recieving a breathing treatment when I walked in the room. Nursing is present and notes that she seems lethargic this morning. Pt denies feeling confused, and is able to answer all questions without difficulty. At that time she had not gotten any of her morning medications. Additional Comments: Constitutional: + sweats, + fatigue, No fever, No chills Eyes: No redness, No discharge, No diplopia ENT: No nasal symptoms, No sore throat, No trouble swallowing Respiratory: No shortness of breath Cardiovascular: No chest pain Abdomen: No pain, No nausea, No vomiting, No diarrhea, No constipation Musculoskeletal: + swelling (BLE), No joint pain, No muscle pain, No calf pain Neurologic: No weakness, No numbness/tingling Skin: + see HPI Objective Vital Signs Date Time Temp Pulse Resp B/P (MAP) Pulse Ox O2 Delivery O2 Flow Rate FiO2 07/21/17 07:19 36.6 94 20 147/70 (95) 97 Nasal Cannula 4.0 07/21/17 07:10 94 18 97 Nasal Cannula 4.0 07/21/17 04:46 36.6 89 22 128/62 (84) 96 Nasal Cannula 4.0 07/21/17 04:13 75 18 97 Nasal Cannula 4.0 07/21/17 04:00 Nasal Cannula 4.0 07/21/17 00:00 Nasal Cannula 4.0 07/20/17 23:20 36.6 86 22 149/81 (103) 97 Nasal Cannula 5.0 07/20/17 20:00 Nasal Cannula 4.0 07/20/17 19:48 36.6 80 20 164/82 (109) 93 4.0 07/20/17 19:35 69 16 98 Nasal Cannula 4.0 07/20/17 16:00 Nasal Cannula 4.0 07/20/17 14:41 36.9 98 22 170/88 (115) 97 Nasal Cannula 4.0 07/20/17 12:00 Room Air 07/20/17 11:24 36.7 84 20 152/77 (102) 96 Nasal Cannula 4.0 07/20/17 11:08 77 16 96 Nasal Cannula 4.0 Physical Exam Notes: General Appearance: WD/WN, no apparent distress, + obese, morbid, lethargic Eyes: PERRL, EOMI ENT: hearing grossly normal, pharynx not examined due to duoneb tx followed by bipap placement. Neck: supple, no JVD Respiratory/Chest: lungs with diminished breath sounds throughout, getting duoneb tx w 4 L O2, no belly breathing, no accessory muscle use, Cardiovascular: regular rate, rhythm, + systolic murmur Abdomen: normal bowel sounds, non tender, soft Extremities: + pertinent finding (+ erythema and edema of BLE extending up mid proximal thighs appears diffusely improved. Stop mid thigh on posterior aspect. Nontender to touch. ) Neurologic/Psychiatric: alert, oriented x 3, follows commands, participates in conversation but is short of breath Skin: normal color, warm/dry Laboratory Results Last 24 Hours Test 07/20/17 08:59 07/20/17 16:38 07/20/17 20:48 07/21/17 06:13 Creatinine 1.13 mg/dl 0.86 mg/dl Est Creatinine Clear Calc Drug Dose 51.7 ml/min 68.6 ml/min Estimated GFR () 55.1 76.6 Estimated GFR (Non- 47.5 66.1 Bedside Glucose 236 mg/dl 145 mg/dl White Blood Count 5.95 K/uL Red Blood Count 3.68 M/uL Hemoglobin 10.5 g/dL Hematocrit 35.8 % Mean Corpuscular Volume 97.3 fL Mean Corpuscular Hemoglobin 28.5 pg Mean Corpuscular Hemoglobin Concent 29.3 g/dl Platelet Count 170 K/uL Mean Platelet Volume 10.7 fL Neutrophils (%) (Auto) 69.9 % Lymphocytes (%) (Auto) 18.7 % Monocytes (%) (Auto) 7.1 % Eosinophils (%) (Auto) 3.2 % Basophils (%) (Auto) 0.8 % Neutrophils # (Auto) 4.16 K/uL Lymphocytes # (Auto) 1.11 K/uL Monocytes # (Auto) 0.42 K/uL Eosinophils # (Auto) 0.19 K/uL Basophils # (Auto) 0.05 K/uL RDW Standard Deviation 60.3 fL RDW Coefficient of Variation 17.1 % Immature Granulocyte % (Auto) 0.3 % Immature Granulocyte # (Auto) 0.02 K/uL Erythrocyte Sedimentation Rate 19 mm/hr Prothrombin Time 10.3 SECONDS Prothromb Time International Ratio 1.0 Activated Partial Thromboplast Time 23.6 SECONDS Partial Thromboplastin Ratio 0.9 Sodium Level 141 mmol/L Potassium Level 4.0 mmol/L Chloride Level 100 mmol/L Carbon Dioxide Level 41 mmol/L Anion Gap -1.0 mmol/L Blood Urea Nitrogen 15 mg/dl BUN/Creatinine Ratio 16.8 Random Glucose 219 mg/dl Estimated Average Glucose 186 mg/dl Hemoglobin A1c 8.1 % Calcium Level 8.4 mg/dl Magnesium Level 2.1 mg/dl Test 07/21/17 07:29 Bedside Glucose 219 mg/dl Assessment and Plan 77 yo F with PMHx of chronic respiratory failure with chronic hypoxia, morbid obesity with BMI 44.4, likely obesity hypoventilation syndrome, LOGAN without cpap , claustrophobia, Acute hypoxic respiratory failure on chronic respiratory failure COPD Hypercapnia Hypoxia Likely obesity hypoventilation syndrome LOGAN not on cpap Remote tobacco abuse hx - quit 8 years ago - ABG ordered with C02= 41 this morning, pt had increased lethargy but was able to participate in discussion/follow commands. - ABG was difficult to obtain due to clotting, then venous draw, then finally arterial sample however bipap had been in place for 1 hour prior to adequate specimen collection. Past ABGs appear to be similar from her last hospital stay so she is likely compensating. - Started Bipap, applied settings 14/7 with adequate tidal volumes - Duonebs ordered Q4H and Q2h prn - administered today at 0930 and then upon re- eval at 11:30 - continue - Discussion with attending and pulmonary team this morning - appreciate recs - Was started on solumedrol 125 mg x 1 dose and will continue lower dosing routinely - Pt was moved to PCU for closer monitoring. There were no event overnight on tele. NSR with HR in 80-90s with few PVCs. - Pt wears 4L O2 at home at all times - Continue Pulmicort Respules, Flonase allergy relief, and have duonebs available q2hprn - Etiology??? The patient takes remeron 30 mg HS, trazodone 200 mg HS for insomia. She received Ativan 1 mg yesterday around 2:15pm for a MRI of the cspine and brain due to the c/o fleeting numbness yesterday as she has severe claustrophobia and would not have been able to tolerate the MRI otherwise. Both MRI studies were negative for acute findings. Bilateral lower extremity cellulitis- - Continue on vancomycin IV and Zosyn IV starting 07/19 - Edema continues to improve. - PT/OT Fleeting numbness upper extremities and lower extremities-- - Pt reports having a numbness in her forehead today - it has resolved in her extremities. - Will check ESR with am labs tomorrow. - Order MRI of brain with contrast and MRI of C-spine with contrast. - Will give ativan 1 mg PO 30 min prior to scan as pt is claustrophobic. Both negative. - vitamin B12 and folic acid level are WNL Atrial fibrillation/hypertension- - Continue amiodarone 100 mg daily, aspirin 81 mg daily, diltiazem extended release 180 mg daily - Follow serial CBC with differential, BMP and magnesium levels. - INR 1.0, increase coumadin dose from 2 to 3 mg, bridge with lovenox. Anxiety with depression-- - Continue buspirone 15 mg p.o. 3 times daily, Remeron SolTab 30 mg p.o. at bedtime, trazodone 200 mg p.o. at bedtime, and venlafaxine XR 225 mg p.o. daily. Diabetes mellitus-- - Hold metformin 500 mg p.o. daily. - Place on Accu-Cheks before meals and at bedtime with NovoLog coverage per scale. GERD - Change omeprazole to pantoprazole. Restless leg syndrome - Continue pramipexole 0.5 mg p.o. at bedtime. DVT ppx: on coumadin CODE STATUS: FULL CODE Disposition: From home, daughter lives with her. I updated the daughter, Ms Bailey, about morning events and all her questions and concerns were addressed.
[2017-07-21] MEDS: VENLAFAXINE HCL XR 150 MG CAPXR PO SCH (08:58)
[2017-07-21] MEDS: PANTOprazole SOD 40 MG TAB PO SCH (09:03)
[2017-07-21] MEDS: DILTIAZEM HCL (TIAzac) 180 MG CAPCR PO SCH (09:04)
[2017-07-21] MEDS: BusPIRone 15 MG TAB PO SCH ×3 (09:05→20:50)
[2017-07-21] MEDS: ASPIRIN 81 MG ECTAB PO SCH (09:06)
[2017-07-21] MEDS: AMIODARONE 200 MG TAB PO SCH (09:06)
[2017-07-21] MEDS: VENLAFAXINE HCL XR 75 MG CAPXR PO SCH (09:06)
[2017-07-21] MEDS: ATORVASTATIN 40 MG TAB PO SCH (09:08)
[2017-07-21] MEDS: NEPHROCAPS PO SCH (09:08)
[2017-07-21] MEDS: LACTOBACILLUS ACIDOPHILUS (FLORANEX) TAB PO SCH ×4 (09:09→20:50)
[2017-07-21] MEDS: FLUTICASONE PROPIONATE NA SPR 16 GM BTL NAE SCH (09:10)
[2017-07-21] MEDS: INSULIN ASPART 100 UNITS/ML 3 ML PEN SC SCH ×4 (09:18→20:55)
[2017-07-21] MEDS ORDERED: VANCOMYCIN TROUGH ONE (09:30)
[2017-07-21] MEDS: VANCOMYCIN IV 1,500 MG in SODIUM CHLORIDE 0.9% 500ML 500 ML IV SCH ×2 (10:29→21:51)
--- NOTE | 2017-07-21 10:31 | Pharmacy Progress Note ---
Pharmacy Abx Dose Short Note Date of Service Jul 21, 2017. Assessment & Plan Assessment 77 year old female receiving zosyn/vancomycin for treatment of LLE cellulitis Day # 2 of antimicrobial therapy. Blood cultures negative to date, afebrile, resolved leukocytosis Possible change to PO? Plan Vancomycin * Trough level of 15.6 mcg/mL is therapeutic * Continue dose of 1500 mg q12H for now * Patient at risk for accumulation- will get trough tomorrow prior 1000 dose * Goal trough level for ssti: 10-20 mcg/mL * Trough ordered for 07/22 @ 0930 * Pharmacy will continue to follow and will adjust dose/frequency as necessary. Thank you.
[2017-07-21] MEDS ORDERED: METHYLPREDNISOLONE 125 MG VIAL IV STA (11:27)
[2017-07-21] MEDS ORDERED: METHYLPREDNISOLONE 125 MG in SYRINGE 0 ML IV SCH (12:00)
--- NOTE | 2017-07-21 12:30 | Pulmonary Consultation ---
History General Date of Service: Jul 21, 2017. Stated Complaint: Acute On Chronic Respiratory Failure, Cellulitis HPI The patient is a 77 year old female who presents to [facility] with complaints of Acute On Chronic Respiratory Failure, Cellulitis. The patient's primary care provider is Ray Pereira III, CRNP. A stat consult was placed by Dr. Harris Patient seen and examined at 12:15pm Currently hypercapnic with a pCO2 of 74. On BiPAP 25/11 with adequate tidal volumes Tried CPAP at home in the past but could not tolerate mask due to claustrophobia Prior 1 ppd smoker but quit 8-9 years ago Patient seen approximately 2 hours after being placed on BiPAP and patient was completely oriented and oxygenating well with nasal cannula with no evidence of acute respiratory failure. Patient was talking in full sentences without any dyspnea. There is no evidence of accessory muscle use. Patient's color was good. No acute complaints. Review of Systems A total of 12 systems was reviewed and is negative other than as listed above in the HPI All Other Symptoms All Other Systems: Reviewed and Negative Past Medical History Past Medical History: Medical Problems: (1) Acute and chronic respiratory failure with hypoxia (2) Acute on chronic respiratory failure (3) Cellulitis of both lower extremities (4) Diab Zoey Wo Compl, Type Ii Or Unspec Type, Not Uncntrld (5) Diverticulosis Colon (W/O Ment Of Hemorrhage) (6) Hyperlipidemia Nec/Nos (7) Hypertension Nos (8) Left lower lobe pneumonia (9) Obstr Chronic Bronchitis, W (Acute) Exacerbation (10) Paroxysmal a-fib (11) Pneumonia, Organism Nos (12) Pure Hypercholesterolem (13) Symptomatic anemia (14) Tubal Ligation Status Past Surgical History: Unknown -patient unable to recollect Family History Diabetes mellitus FH: cancer (lymphoma, breast cancer) Hypertension Social History Hx Tobacco Use In Past Year?: No Smoking Status: Former Smoker Drug Use: none Marital status: Housing status: lives with family (Daughter lives with her) Occupational Status: retired Immunizations History of Influenza Vaccine: Yes Influenza Vaccine Date: Apr 12, 2013 History of Tetanus Vaccine?: Unknown Tetanus Immunization Date: Nov 09, 2007 History of Pneumococcal: Yes Pneumococcal Date: Mar 10, 2011 History of Hepatitis B Vaccine: No History of MDRO History of MDRO: No Allergies Coded Allergies: Mushroom (Verified Allergy, Unknown, 07/19/17) Theophyllines (Verified Allergy, Unknown, Unknown, 07/19/17) Reported by daughter and listed in [facility] record. Codeine (Verified Adverse Reaction, Severe, HYPERVENTILATES, 07/19/17) Morphine (Verified Adverse Reaction, Severe, Causes Afib, 07/19/17) Current Medications Reported Home Medications Medications Dose Route/Sig Max Daily Dose Days Date Category Dose Instructions Vitamin E 1,000 Unit Cap 1,000 Units PO QAM 07/19/17 Reported Coumadin (Warfarin Sod) 2 Mg Tab 2 Mg PO QDD 07/19/17 Reported Metformin Hcl Er (Metformin Hcl) 500 Mg Tab 500 Mg PO DAILYBD 90 07/19/17 Reported Lasix (Furosemide) 20 Mg Tab 10 Mg PO DAILY 06/08/17 Reported Prilosec (Omeprazole) 20 Mg Capcr 40 Mg PO DAILY 06/08/17 Reported Tiazac (Diltiazem HCl) 180 Mg Capcr 180 Mg PO DAILY 06/08/17 Reported Remeron Soltab (Mirtazapine) 30 Mg Soltab 30 Mg PO HS 06/08/17 Reported Nephrocaps (Vitamin B Complex/Vit C/Folic Acid) Cap 1 Cap PO DAILY 04/24/17 Reported Pramipexole Dihydrochlori (Pramipexole Dihydrochloride) 0.5 Mg Tab 0.5 Mg PO HS 04/24/17 Reported Pulmicort Respules 0.25MG/2ML (Budesonide (Inhalation)) 0.25 Mg/2 Ml Radha 0.25 Mg NEB BID 04/24/17 Reported Amiodarone Hcl 100 Mg Tab 100 Mg PO DAILY 12/17/16 Reported Flonase Allergy Relief (Fluticasone Propionate (Nasal)) 50 Mcg/Act Spr 2 Sprays BUTCH DAILY 12/17/16 Reported Floranex (Lactobacillus) 1 Tab Tab 1 Tab PO TIDM 12/17/16 Reported Milk Of Magnesia (Magnesium Hydroxide) 30 Ml Susp 30 Ml PO Q12 PRN 12/17/16 Reported Breo Ellipta (Fluticasone Furoate-Vilanterol) 1 Inh Inh 1 Puff INH DAILY 10/18/16 Reported Aspirin Ec (Aspirin) 81 Mg Tab 81 Mg PO DAILY 10/18/16 Reported Buspirone HCl 15 Mg Tab 15 Mg PO TID 10/18/14 Reported Effexor Extended Rel (Venlafaxine Hcl) 75 Mg Capcr 75 Mg PO DAILY 10/18/14 Reported TAKE WITH 150 MG = 225MG TOTAL Effexor Extended Rel (Venlafaxine Hcl) 150 Mg Capcr 150 Mg PO DAILY 05/15/14 Reported TAKE WITH 75MG = 225 MG TOTAL Trazodone HCl 100 Mg Tab 200 Mg PO HS 04/24/14 Reported Lipitor (Atorvastatin Calcium) 80 Mg Tab 80 Mg PO DAILY 04/24/14 Reported Physical Physical Exam Vital Signs: Date Time Temp Pulse Resp B/P (MAP) Pulse Ox O2 Delivery O2 Flow Rate FiO2 07/21/17 12:00 BiPAP 07/21/17 11:56 86 20 92 BiPAP/CPAP 6.0 07/21/17 11:02 84 94 6.0 07/21/17 11:01 36.5 92 20 137/71 (93) 88 BiPAP 07/21/17 09:23 101 91 4.0 07/21/17 09:22 101 20 91 Nasal Cannula 4.0 07/21/17 08:53 101 137/71 (93) 07/21/17 08:00 91 Nasal Cannula 4.0 07/21/17 07:19 36.6 94 20 147/70 (95) 97 Nasal Cannula 4.0 07/21/17 07:10 94 18 97 Nasal Cannula 4.0 07/21/17 04:46 36.6 89 22 128/62 (84) 96 Nasal Cannula 4.0 07/21/17 04:13 75 18 97 Nasal Cannula 4.0 07/21/17 04:00 Nasal Cannula 4.0 07/21/17 00:00 Nasal Cannula 4.0 07/20/17 23:20 36.6 86 22 149/81 (103) 97 Nasal Cannula 5.0 07/20/17 20:00 Nasal Cannula 4.0 07/20/17 19:48 36.6 80 20 164/82 (109) 93 4.0 07/20/17 19:35 69 16 98 Nasal Cannula 4.0 07/20/17 16:00 Nasal Cannula 4.0 07/20/17 14:41 36.9 98 22 170/88 (115) 97 Nasal Cannula 4.0 Weight in Kilograms: 113.6 GENERAL : No acute distress. EYES: No icterus, gaze conjugate NOSE: No evidence of epistaxis. Nasal cannula in place MOUTH: No lesions or candidiasis NECK: Supple. No evidence of JVD LUNGS: Decreased breath sounds bilaterally with some bibasilar rales noted. No rhonchi in upper [place]. HEART: Regular, rate controlled ABDOMEN: Soft, NT, ND, BS Present EXTREMITIES: Bilateral LE edema, pedal pulses intact NEURO: [facility] Labs Results Past 24 Hours Test 07/20/17 16:38 07/20/17 20:48 07/21/17 06:13 07/21/17 07:29 Range/Units Bedside Glucose 236 145 219 70-90 mg/dl White Blood Count 5.95 4.8-10.8 K/uL Red Blood Count 3.68 4.2-5.4 M/uL Hemoglobin 10.5 12.0-16.0 g/dL Hematocrit 35.8 37-47 % Mean Corpuscular Volume 97.3 80-100 fL Mean Corpuscular Hemoglobin 28.5 25-34 pg Mean Corpuscular Hemoglobin Concent 29.3 32-36 g/dl Platelet Count 170 130-400 K/uL Mean Platelet Volume 10.7 7.4-10.4 fL Neutrophils (%) (Auto) 69.9 % Lymphocytes (%) (Auto) 18.7 % Monocytes (%) (Auto) 7.1 % Eosinophils (%) (Auto) 3.2 % Basophils (%) (Auto) 0.8 % Neutrophils # (Auto) 4.16 1.4-6.5 K/uL Lymphocytes # (Auto) 1.11 1.2-3.4 K/uL Monocytes # (Auto) 0.42 0.11-0.59 K/uL Eosinophils # (Auto) 0.19 0-0.5 K/uL Basophils # (Auto) 0.05 0-0.2 K/uL RDW Standard Deviation 60.3 36.4-46.3 fL RDW Coefficient of Variation 17.1 11.5-14.5 % Immature Granulocyte % (Auto) 0.3 % Immature Granulocyte # (Auto) 0.02 0.00-0.02 K/uL Erythrocyte Sedimentation Rate 19 0-21 mm/hr Prothrombin Time 10.3 9.0-12.0 SECONDS Prothromb Time International Ratio 1.0 0.9-1.1 Activated Partial Thromboplast Time 23.6 21.0-31.0 SECONDS Partial Thromboplastin Ratio 0.9 Sodium Level 141 136-145 mmol/L Potassium Level 4.0 3.5-5.1 mmol/L Chloride Level 100 98-107 mmol/L Carbon Dioxide Level 41 21-32 mmol/L Anion Gap -1.0 3-11 mmol/L Blood Urea Nitrogen 15 7-18 mg/dl Creatinine 0.86 0.60-1.20 mg/dl Est Creatinine Clear Calc Drug Dose 68.6 ml/min Estimated GFR () 76.6 Estimated GFR (Non- 66.1 BUN/Creatinine Ratio 16.8 10-20 Random Glucose 219 70-99 mg/dl Estimated Average Glucose 186 mg/dl Hemoglobin A1c 8.1 4.5-5.6 % Calcium Level 8.4 8.5-10.1 mg/dl Magnesium Level 2.1 1.8-2.4 mg/dl Test 07/21/17 09:22 07/21/17 10:34 07/21/17 11:37 Range/Units Vancomycin Level Trough 15.6 SEE COMMENT mcg/ml Arterial Blood pH 7.33 7.35-7.45 Arterial Blood Partial Pressure CO2 74 35-46 mmHg Arterial Blood Partial Pressure O2 55 80-95 mm/Hg Arterial Blood HCO3 38 19-24 mmol/L Arterial Blood Oxygen Saturation 85.0 90-95 % Arterial Blood Base Excess 10.1 -9-1.8 mEq/L Arterial Blood Gas Delivery 4L Red Test POS POS Bedside Glucose 255 70-90 mg/dl Diagnostic Radiology SINGLE VIEW CHEST CLINICAL HISTORY: Fever. FINDINGS: An AP, portable, upright chest radiograph is compared to study dated 06/22/2017. The examination is degraded by portable technique and apical lordotic positioning. The heart is top normal for projection. The mitral annulus is densely calcified. There is atherosclerotic calcification of the thoracic aorta. Chronic interstitial thickening is similar to previous. No airspace consolidation or large pleural effusion is identified. No pneumothorax is seen. The skeletal structures are osteopenic. The bony thorax is grossly intact. IMPRESSION: No acute cardiopulmonary abnormality. Electronically signed by: Jose Zazueta M.D. 07/19/2017 9:37 PM Impression Assessment and Plan Acute on chronic respiratory failure * Patient with history of hypoventilation/LOGAN * Previously on CPAP and did not tolerate so it was returned to the [employer] [facility] * Patient reports that she did not use his CPAP because she was claustrophobic and did not like the mask * Patient placed on BiPAP this hospital admission and tolerated mask and said that she could use that at home * Will talk to [employer] [facility] to discuss options for masks and home BiPAP/CPAP * Patient with return to baseline with several hours of BiPAP * We will continue BiPAP therapy overnight * Check repeat ABG in the morning * Check a chest x-ray in the morning * Chest x-ray today with no evidence of cardiopulmonary disease, fluid overload , infiltrate, consolidation Thank you for including us in the care of this patient. We will follow along with you. Please refer to Dr. Pina's addendum for further recommendations Attending Physician Note: I was present with Jose Godfrey PA-C during the history and exam. I discussed the case with him and agree with the findings and plan as documented in the note. Any exceptions or clarifications are listed here: Patient with significant chronic hypercarbic respiratory failure secondary to obesity-hypoventilation syndrome, non-compliant with home BIPAP, citing claustrophobia was noted to be lethargic after MRI (received Ativan), and had mild worsening of hypercarbia. After couple of hours on BIPAP she was fully awake, comfortable, in no distress. CXR clear Recommend to continue nocturnal BIPAP. May try different masks from the [employer] until she finds a comfortable mask. For example, she tolerated our mask Avoid sedative agents as much as possible. If she requires sedation, be prepared to use reversal agents, provide ventilatory support, non-invasive or invasive Documented By: Ja Pina MD
[2017-07-21] MEDS: IPRATROPIUM BROMIDE NEB SOLN 0.02% 2.5 ML VIAL INH SCH ×2 (14:23→19:04)
[2017-07-21] MEDS: LEVALBUTEROL 1.25MG/0.5ML NEB INH SCH ×2 (14:23→19:04)
[2017-07-21] MEDS ORDERED: LEVALBUTEROL/IPRATROPIUM NEB INH SCH (15:00)
[2017-07-21] MEDS: WARFARIN SOD 3 MG TAB PO SCH (16:38)
[2017-07-21] MEDS: MIRTAZAPINE SOLTAB 15 MG PO SCH (20:50)
[2017-07-21] MEDS: METHYLPREDNISOLONE IV 80 MG in SYRINGE 0 ML IV SCH (20:50)
[2017-07-21] MEDS: TRAZODONE HCL 100 MG TAB PO SCH (20:50)
[2017-07-21] MEDS: PRAMIPEXOLE DIHYDROCHLORIDE 0.5 MG TAB PO SCH (20:50)
[2017-07-21] MEDS: ENOXAPARIN 120 MG/0.8 ML SYR SQ SCH (20:51)
[2017-07-21] MEDS: INSULIN GLARGINE SOLOSTAR 100 UNITS/ML 3 ML PEN SC SCH (20:56)
[2017-07-22] VITALS (18 sets, daily range): BP systolic 145–168; BP diastolic 64–97; PULSE 77–101; TEMP 36.3–37.4; O2SAT 84–97
[2017-07-22] MEDS: LEVALBUTEROL 1.25MG/0.5ML NEB INH SCH ×4 (01:54→19:58)
[2017-07-22] MEDS: IPRATROPIUM BROMIDE NEB SOLN 0.02% 2.5 ML VIAL INH SCH ×4 (01:54→19:58)
[2017-07-22] MEDS: METHYLPREDNISOLONE IV 80 MG in SYRINGE 0 ML IV SCH (04:05)
[2017-07-22 05:56] LABS: BASO % 0.2 %; BASO ABS # 0.01 K/uL (0-0.2); HEMATOCRIT 35.2 % (37-47); HEMOGLOBIN 10.6 g/dL (12.0-16.0); IG# 0.01 K/uL (0.00-0.02); LYMPH % 10.2 %; LYMPH ABS # 0.58 K/uL (1.2-3.4); MEAN CELL VOLUME 96.2 fL (80-100); MEAN CORPUSCULAR HGB CONC 30.1 g/dl (32-36); MONO % 1.1 %; MONO ABS # 0.06 K/uL (0.11-0.59); NEUT % 88.3 %; NEUT ABS # 5.05 K/uL (1.4-6.5); PLATELET COUNT 160 K/uL (130-400); RED CELL DISTRIBUTION WIDTH CV 16.7 % (11.5-14.5); RED CELL DISTRIBUTION WIDTH SD 58.6 fL (36.4-46.3); WHITE BLOOD COUNT 5.71 K/uL (4.8-10.8)
[2017-07-22 06:25] LABS: CREATININE 0.81 mg/dl (0.60-1.20)
[2017-07-22] MEDS: BUDESONIDE 0.25 MG/2 ML VIAL (PULMICORT) INH SCH ×2 (07:13→19:58)
--- NOTE | 2017-07-22 07:58 | Progress Note ---
Subjective Date of Service: Jul 22, 2017. Subjective Pt evaluation today including: conversation w/ patient Pt is feeling overall improved. No SOB at rest. Uses O2 at baseline. Feels her LE redness is resolved and swelling is much better. Still with LE pain at times. No further episodes of facial or UE/LE numbness. Has been eating without issue. Pt denies fever, chest pain, abd pain, n/v/c/d. Problem List Medical Problems: (1) Acute on chronic respiratory failure with hypoxia and hypercapnia Status: Acute (2) Anemia Status: Acute (3) Anemia Status: Acute (4) Anemia Status: Acute (5) Anemia Status: Acute (6) Bronchitis Status: Acute (7) Cellulitis Status: Acute (8) Chest pain Status: Acute (9) COPD with exacerbation Status: Acute (10) GI bleed Status: Acute (11) GI bleed Status: Acute (12) Hypokalemia Status: Acute (13) Respiratory failure Status: Acute (14) Sepsis Status: Acute (15) SOB (shortness of breath) Status: Acute (16) TIA (transient ischemic attack) Status: Acute Review of Systems All Other Systems: Reviewed and Negative Objective Vital Signs Date Time Temp Pulse Resp B/P (MAP) Pulse Ox O2 Delivery O2 Flow Rate FiO2 07/22/17 07:49 36.3 87 20 168/73 (104) 95 BiPAP 07/22/17 07:18 89 23 95 BiPAP/CPAP 8.0 07/22/17 07:15 89 95 8.0 07/22/17 04:00 BiPAP 07/22/17 02:52 37.0 85 20 155/68 (97) 93 BiPAP 07/22/17 01:55 84 21 96 BiPAP/CPAP 8.0 07/22/17 01:53 85 96 8.0 07/22/17 01:33 84 84 4.0 07/22/17 00:02 36.8 100 18 145/72 (96) 94 BiPAP 07/22/17 00:01 BiPAP 07/21/17 23:40 93 93 4.0 07/21/17 20:00 Oxymask 4.0 07/21/17 19:35 37.5 91 24 96/71 (79) 98 Oxymask 6.0 07/21/17 19:04 90 20 92 Mask 6.0 07/21/17 16:00 36.4 86 20 153/67 (95) 98 Nasal Cannula 6.0 07/21/17 16:00 97 Nasal Cannula 4.0 07/21/17 14:23 85 20 92 Mask 6.0 07/21/17 13:10 85 99 6.0 07/21/17 12:00 BiPAP 07/21/17 11:56 86 20 92 BiPAP/CPAP 6.0 07/21/17 11:02 84 94 6.0 07/21/17 11:01 36.5 92 20 137/71 (93) 88 BiPAP 07/21/17 09:23 101 91 4.0 07/21/17 09:22 101 20 91 Nasal Cannula 4.0 07/21/17 08:53 101 137/71 (93) 07/21/17 08:00 91 Nasal Cannula 4.0 Physical Exam General Appearance: no apparent distress, + obese Eyes: normal inspection, sclerae normal Respiratory/Chest: no respiratory distress, + wheezing (end expiratory and faint) Cardiovascular: regular rate, rhythm, + normal peripheral pulses Abdomen: non tender, soft Extremities: + pedal edema (trace pitting), + pertinent finding (diffuse TTP along b/l LE) Neurologic/Psychiatric: alert, normal mood/affect, oriented x 3 Skin: normal color, warm/dry Laboratory Results Last 24 Hours Test 07/21/17 09:22 07/21/17 10:34 07/21/17 11:37 07/21/17 16:06 Vancomycin Level Trough 15.6 mcg/ml Arterial Blood pH 7.33 Arterial Blood Partial Pressure CO2 74 mmHg Arterial Blood Partial Pressure O2 55 mm/Hg Arterial Blood HCO3 38 mmol/L Arterial Blood Oxygen Saturation 85.0 % Arterial Blood Base Excess 10.1 mEq/L Arterial Blood Gas Delivery 4L Red Test POS Bedside Glucose 255 mg/dl 282 mg/dl Test 07/21/17 17:53 07/21/17 19:56 07/22/17 05:41 07/22/17 06:57 D-Dimer 480 ug/L FEU Bedside Glucose 298 mg/dl 310 mg/dl White Blood Count 5.71 K/uL Red Blood Count 3.66 M/uL Hemoglobin 10.6 g/dL Hematocrit 35.2 % Mean Corpuscular Volume 96.2 fL Mean Corpuscular Hemoglobin 29.0 pg Mean Corpuscular Hemoglobin Concent 30.1 g/dl Platelet Count 160 K/uL Mean Platelet Volume 11.0 fL Neutrophils (%) (Auto) 88.3 % Lymphocytes (%) (Auto) 10.2 % Monocytes (%) (Auto) 1.1 % Eosinophils (%) (Auto) 0.0 % Basophils (%) (Auto) 0.2 % Neutrophils # (Auto) 5.05 K/uL Lymphocytes # (Auto) 0.58 K/uL Monocytes # (Auto) 0.06 K/uL Eosinophils # (Auto) 0.00 K/uL Basophils # (Auto) 0.01 K/uL RDW Standard Deviation 58.6 fL RDW Coefficient of Variation 16.7 % Immature Granulocyte % (Auto) 0.2 % Immature Granulocyte # (Auto) 0.01 K/uL Prothrombin Time 10.6 SECONDS Prothromb Time International Ratio 1.0 Activated Partial Thromboplast Time 27.0 SECONDS Partial Thromboplastin Ratio 1.0 Sodium Level 141 mmol/L Potassium Level 4.0 mmol/L Chloride Level 101 mmol/L Carbon Dioxide Level 37 mmol/L Anion Gap 3.0 mmol/L Blood Urea Nitrogen 17 mg/dl Creatinine 0.81 mg/dl Est Creatinine Clear Calc Drug Dose 72.8 ml/min Estimated GFR () 82.3 Estimated GFR (Non- 71.0 BUN/Creatinine Ratio 21.3 Random Glucose 298 mg/dl Calcium Level 9.0 mg/dl Magnesium Level 2.4 mg/dl Assessment and Plan 77 yo F with PMHx of chronic respiratory failure with chronic hypoxia, morbid obesity with BMI 44.4, likely obesity hypoventilation syndrome, LOGAN without cpap , claustrophobia, Acute hypoxic respiratory failure on chronic respiratory failure COPD Hypercapnia Hypoxia Likely obesity hypoventilation syndrome LOGAN, does not use CPAP due to mask fitting issues, pulm is addressing Remote tobacco abuse hx - quit 8 years ago - ABG is similar from her last hospital stay, likely compensating. - Started Bipap, applied settings 14/7 with adequate tidal volumes - Duonebs Steroids, taper to 60mg BID today Baseline home O2 use, 4L - Continue Pulmicort Respules, Flonase allergy relief, and have duonebs available q2hprn - Etiology??? The patient takes remeron 30 mg HS, trazodone 200 mg HS for insomia. She received Ativan 1 mg yesterday around 2:15pm for a MRI of the cspine and brain due to the c/o fleeting numbness yesterday as she has severe claustrophobia and would not have been able to tolerate the MRI otherwise. Both MRI studies were negative for acute findings. Bilateral lower extremity cellulitis-improving - Continue on vancomycin IV and Zosyn IV (07/19)--> keflex 500mg BID 07/22 ddimer neg Blood cx neg - PT/OT Fleeting numbness upper extremities and lower extremities--no further episodes - ESR neg x2 - MRI brain/c-spine: negative. - vitamin B12 is very low normal with high normal MCV and anemia , will add B12 injections and monitor Folic acid WNL Atrial fibrillation/hypertension- - Continue amiodarone 100 mg daily, aspirin 81 mg daily, diltiazem extended release 180 mg daily - Follow serial CBC with differential, BMP and magnesium levels. - INR 1.0, increase coumadin dose from 2 to 3 mg, bridge with lovenox. Anxiety with depression-- - Continue buspirone 15 mg p.o. 3 times daily, Remeron SolTab 30 mg p.o. at bedtime, trazodone 200 mg p.o. at bedtime, and venlafaxine XR 225 mg p.o. daily. Diabetes mellitus-- - Hold metformin 500 mg p.o. daily, plans to increase to 1000mg QD on d/c - Place on Accu-Cheks before meals and at bedtime with NovoLog coverage per scale. GERD - Change omeprazole to pantoprazole. Restless leg syndrome - Continue pramipexole 0.5 mg p.o. at bedtime. DVT ppx: on coumadin CODE STATUS: FULL CODE Disposition: From home, daughter lives with her.
[2017-07-22] MEDS: INSULIN ASPART 100 UNITS/ML 3 ML PEN SC SCH ×4 (08:07→20:15)
[2017-07-22] MEDS: LACTOBACILLUS ACIDOPHILUS (FLORANEX) TAB PO SCH ×4 (08:08→20:11)
[2017-07-22] MEDS: PANTOprazole SOD 40 MG TAB PO SCH (08:08)
[2017-07-22] MEDS: VENLAFAXINE HCL XR 150 MG CAPXR PO SCH (08:08)
[2017-07-22] MEDS: BusPIRone 15 MG TAB PO SCH ×3 (08:09→23:19)
[2017-07-22] MEDS: ENOXAPARIN 120 MG/0.8 ML SYR SQ SCH ×2 (08:09→20:12)
[2017-07-22] MEDS: ASPIRIN 81 MG ECTAB PO SCH (08:09)
[2017-07-22] MEDS: DILTIAZEM HCL (TIAzac) 180 MG CAPCR PO SCH (08:10)
[2017-07-22] MEDS: AMIODARONE 200 MG TAB PO SCH (08:10)
[2017-07-22] MEDS: VENLAFAXINE HCL XR 75 MG CAPXR PO SCH (08:10)
[2017-07-22] MEDS: ATORVASTATIN 40 MG TAB PO SCH (08:11)
[2017-07-22] MEDS: NEPHROCAPS PO SCH (08:11)
[2017-07-22] MEDS: FLUTICASONE PROPIONATE NA SPR 16 GM BTL NAE SCH (08:14)
[2017-07-22] MEDS: PIPERACILL/TAZOBAC IV 4.5 GM in DEXTROSE 5% 100ML IV SCH ×3 (08:15)
--- NOTE | 2017-07-22 09:24 | Pulmonology Progress Note ---
Pulmonary Progress Note Date of Service Jul 22, 2017. Attending Dr. Pina Subjective Patient alert and oriented X 4. Tolerated BiPAP overnight without difficulty. No sputum production. No chest pain. No fever. Still with minimal SOB but similar to at home. Feels much better than yesterday. Objective Vital Signs - as noted below Laboratory Data - as noted below Physical Exam: General - NAD. In bed and states that she is very comfortable Eyes - No icterus, gaze conjugate ENT - Mucosa moist, no lesions or candidiasis. Nasal cannula in place Neck - Supple, No JVD Lungs - Diffuse wheezes. Decreased breath sounds at the bases. Heart - Regular, rate controlled but in the high 90s Abdomen - Soft, NT, ND, BS present Extremities - B/L edema, pedal pulses intact Neuro - A&OX4 Assessment & Plan Acute on chronic hypercapnic respiratory failure * Associated hypoxemia yesterday as well * This morning the patient is alert and oriented 4 * ABG revealed pH 7.34, PCO2 68, PCO2 92, HCO3 36, saturation 95.6 on 4.5 L. This is similar to yesterday's gas. Patient much more responsive with adequate oxygenation * Patient would benefit from outpatient CPAP/BiPAP * Will need further outpatient evaluation * Will discuss trilogy model with DME on Monday prior to discharge * Continue to monitor clinically Thank you for including us in the care of this patient. We will sign off at this time. Data Medications: Current Inpatient Medications Medications (Trade) Dose Ordered Sig/Buddy Route Start Time Stop Time Status Last Admin Dose Admin Acetaminophen (Tylenol Tab) 650 mg Q4H PRN PO 07/20/17 00:30 08/19/17 00:29 07/20/17 08:05 650 MG Al Hydrox/Mg Hydrox/Simethicone (Maalox Max Susp) 15 ml Q4H PRN PO 07/20/17 00:30 08/19/17 00:29 Magnesium Hydroxide (Milk Of Magnesia Susp) 30 ml Q12H PRN PO 07/20/17 00:30 08/19/17 00:29 Nitroglycerin (Nitrostat Tab) 0.4 mg UD PRN SL 07/20/17 00:30 08/19/17 00:29 Polyethylene (Miralax Powder Packet) 17 gm DAILY PRN PO 07/20/17 00:30 08/19/17 00:29 07/20/17 16:09 17 GM Aspirin (Ecotrin Tab) 81 mg DAILY PO 07/20/17 09:00 08/19/17 08:59 07/22/17 08:09 81 MG Atorvastatin Calcium (Lipitor Tab) 80 mg DAILY PO 07/20/17 09:00 08/19/17 08:59 07/22/17 08:11 80 MG Budesonide (Pulmicort Respules 0.25MG/ 2ML Neb Soln) 0.25 mg BIDR INH 07/20/17 08:00 08/19/17 07:59 07/22/17 07:13 0.25 MG Buspirone HCl (BusPAR TAB) 15 mg TID PO 07/20/17 09:00 08/19/17 08:59 07/22/17 08:09 15 MG Diltiazem HCl (TIAzac CAP) 180 mg DAILY PO 07/20/17 09:00 08/19/17 08:59 07/22/17 08:10 180 MG Fluticasone Propionate (Flonase Nasal [place]) 2 sprays DAILY BUTCH 07/20/17 09:00 08/19/17 08:59 07/22/17 08:14 2 SPRAYS Pramipexole Dihydrochloride (miraPEX TAB) 0.5 mg HS PO 07/20/17 21:00 08/19/17 20:59 07/21/17 20:50 0.5 MG Trazodone HCl (Desyrel Tab) 200 mg HS PO 07/20/17 21:00 08/19/17 20:59 07/21/17 20:50 200 MG Venlafaxine HCl (effeXOR EXTENDED REL CAP) 75 mg DAILY PO 07/20/17 09:00 08/19/17 08:59 07/22/17 08:10 75 MG Venlafaxine HCl (effeXOR EXTENDED REL CAP) 150 mg DAILY PO 07/20/17 09:00 08/19/17 08:59 07/22/17 08:08 150 MG Vitamin B Complex/ Vit C/Folic Acid (Nephrocaps) 1 cap DAILY PO 07/20/17 09:00 08/19/17 08:59 07/22/17 08:11 1 CAP Lactobacillus Acidophilus (Floranex Tab) 4 tab QIDM PO 07/20/17 08:00 08/19/17 07:59 07/22/17 08:08 4 TAB Amiodarone HCl (Cordarone Tab) 100 mg QAM PO 07/20/17 09:00 08/19/17 08:59 07/22/17 08:10 100 MG Mirtazapine (Remeron Solutab) 30 mg HS PO 07/20/17 21:00 08/19/17 20:59 07/21/17 20:50 30 MG Pantoprazole Sodium (Protonix Tab) 40 mg QAM PO 07/20/17 09:00 08/19/17 08:59 07/22/17 08:08 40 MG Miscellaneous Information (Consult) 1 ea UD PRN N/A 07/20/17 00:30 08/19/17 00:29 Miscellaneous Information (Consult) 1 ea UD PRN N/A 07/20/17 00:30 08/19/17 00:29 Ondansetron HCl (Zofran Inj) 4 mg Q6H PRN IV 07/20/17 00:45 08/19/17 00:44 Ipratropium [place] (Atrovent 0.02% 0.5MG/2.5ML Neb) 0.5 mg Q2H PRN INH 07/20/17 01:30 08/19/17 01:29 07/21/17 11:55 0.5 MG Levalbuterol (Xopenex 1.25MG/ 0.5ML Neb) 1.25 mg Q2H PRN INH 07/20/17 01:30 08/19/17 01:29 07/21/17 11:55 1.25 MG Piperacillin Sod/ Tazobactam Sod 4.5 gm/Dextrose 120 ml @ 30 mls/hr Q8H IV 07/20/17 08:00 07/30/17 07:59 07/22/17 08:15 30 MLS/HR Vancomycin HCl 1500 mg/Sodium Chloride 530 ml @ 200 mls/hr Q12H IV 07/20/17 10:00 07/30/17 09:59 07/21/17 21:51 200 MLS/HR Gadobutrol (Gadavist) 11 mmol UD PRN IV 07/20/17 15:45 07/24/17 15:44 Insulin Aspart (novoLOG ASPART) SLIDING SCALE G... ACHS SC 07/20/17 16:30 08/19/17 16:29 07/22/17 08:07 11 UNITS Glucose (Glucose 40% Gel) 15-30 GRAMS 15 GRAMS... UD PRN PO 07/20/17 16:45 08/19/17 16:44 Glucose (Glucose Chew Tab) 4-8 Tablets 4 Tabl... UD PRN PO 07/20/17 16:45 08/19/17 16:44 Dextrose (Dextrose 50% 50ML Syringe) 25-50ML OF 50% DW IV FOR... UD PRN IV 07/20/17 16:45 08/19/17 16:44 Glucagon (Glucagon Inj) 1 mg UD PRN SQ 07/20/17 16:45 08/19/17 16:44 Warfarin Sodium (Coumadin Tab) 3 mg QDD PO 07/21/17 16:45 08/19/17 17:59 07/21/17 16:38 3 MG Methylprednisolone Sodium Succinate 80 mg/Syringe 1.28 ml @ 1.5 mls/min Q8H IV 07/21/17 20:00 08/20/17 19:59 07/22/17 04:05 1.5 MLS/MIN Ipratropium [place] (Atrovent 0.02% 0.5MG/2.5ML Neb) 0.5 mg Q6R INH 07/21/17 15:00 08/20/17 14:59 07/22/17 07:12 0.5 MG Levalbuterol (Xopenex 1.25MG/ 0.5ML Neb) 1.25 mg Q6R INH 07/21/17 15:00 08/20/17 14:59 07/22/17 07:12 1.25 MG Enoxaparin Sodium (Lovenox Inj) 111 mg Q12 SQ 07/21/17 21:00 08/20/17 20:59 07/22/17 08:09 111 MG Insulin Glargine (Lantus Solostar Pen) 6 units HS SC 07/21/17 21:00 08/20/17 20:59 07/21/17 20:56 6 UNITS Vital Signs: Date Time Temp Pulse Resp B/P (MAP) Pulse Ox O2 Delivery O2 Flow Rate FiO2 07/22/17 07:49 36.3 87 20 168/73 (104) 95 BiPAP 07/22/17 07:18 89 23 95 BiPAP/CPAP 8.0 07/22/17 07:15 89 95 8.0 07/22/17 04:00 BiPAP 07/22/17 02:52 37.0 85 20 155/68 (97) 93 BiPAP 07/22/17 01:55 84 21 96 BiPAP/CPAP 8.0 07/22/17 01:53 85 96 8.0 07/22/17 01:33 84 84 4.0 07/22/17 00:02 36.8 100 18 145/72 (96) 94 BiPAP 07/22/17 00:01 BiPAP 07/21/17 23:40 93 93 4.0 07/21/17 20:00 Oxymask 4.0 07/21/17 19:35 37.5 91 24 96/71 (79) 98 Oxymask 6.0 07/21/17 19:04 90 20 92 Mask 6.0 07/21/17 16:00 36.4 86 20 153/67 (95) 98 Nasal Cannula 6.0 07/21/17 16:00 97 Nasal Cannula 4.0 07/21/17 14:23 85 20 92 Mask 6.0 07/21/17 13:10 85 99 6.0 07/21/17 12:00 BiPAP 07/21/17 11:56 86 20 92 BiPAP/CPAP 6.0 07/21/17 11:02 84 94 6.0 07/21/17 11:01 36.5 92 20 137/71 (93) 88 BiPAP 07/21/17 09:23 101 91 4.0 07/21/17 09:22 101 20 91 Nasal Cannula 4.0 Laboratory Results: Last 24 Hours Test 07/21/17 09:22 07/21/17 10:34 07/21/17 11:37 07/21/17 16:06 Vancomycin Level Trough 15.6 mcg/ml Arterial Blood pH 7.33 Arterial Blood Partial Pressure CO2 74 mmHg Arterial Blood Partial Pressure O2 55 mm/Hg Arterial Blood HCO3 38 mmol/L Arterial Blood Oxygen Saturation 85.0 % Arterial Blood Base Excess 10.1 mEq/L Arterial Blood Gas Delivery 4L Red Test POS Bedside Glucose 255 mg/dl 282 mg/dl Test 3/9/18 17:53 07/21/17 19:56 07/22/17 05:41 07/22/17 06:57 D-Dimer 480 ug/L FEU Bedside Glucose 298 mg/dl 310 mg/dl White Blood Count 5.71 K/uL Red Blood Count 3.66 M/uL Hemoglobin 10.6 g/dL Hematocrit 35.2 % Mean Corpuscular Volume 96.2 fL Mean Corpuscular Hemoglobin 29.0 pg Mean Corpuscular Hemoglobin Concent 30.1 g/dl Platelet Count 160 K/uL Mean Platelet Volume 11.0 fL Neutrophils (%) (Auto) 88.3 % Lymphocytes (%) (Auto) 10.2 % Monocytes (%) (Auto) 1.1 % Eosinophils (%) (Auto) 0.0 % Basophils (%) (Auto) 0.2 % Neutrophils # (Auto) 5.05 K/uL Lymphocytes # (Auto) 0.58 K/uL Monocytes # (Auto) 0.06 K/uL Eosinophils # (Auto) 0.00 K/uL Basophils # (Auto) 0.01 K/uL RDW Standard Deviation 58.6 fL RDW Coefficient of Variation 16.7 % Immature Granulocyte % (Auto) 0.2 % Immature Granulocyte # (Auto) 0.01 K/uL Prothrombin Time 10.6 SECONDS Prothromb Time International Ratio 1.0 Activated Partial Thromboplast Time 27.0 SECONDS Partial Thromboplastin Ratio 1.0 Sodium Level 141 mmol/L Potassium Level 4.0 mmol/L Chloride Level 101 mmol/L Carbon Dioxide Level 37 mmol/L Anion Gap 3.0 mmol/L Blood Urea Nitrogen 17 mg/dl Creatinine 0.81 mg/dl Est Creatinine Clear Calc Drug Dose 72.8 ml/min Estimated GFR () 82.3 Estimated GFR (Non- 71.0 BUN/Creatinine Ratio 21.3 Random Glucose 298 mg/dl Calcium Level 9.0 mg/dl Magnesium Level 2.4 mg/dl Test 07/22/17 08:27 Arterial Blood pH 7.34 Arterial Blood Partial Pressure CO2 68 mmHg Arterial Blood Partial Pressure O2 92 mm/Hg Arterial Blood HCO3 36 mmol/L Arterial Blood Oxygen Saturation 95.6 % Arterial Blood Base Excess 8.3 mEq/L Arterial Blood Gas Delivery 4.5 LITERS Red Test POS
[2017-07-22] MEDS ORDERED: VANCOMYCIN TROUGH ONE (09:30)
[2017-07-22] MEDS: LEVALBUTEROL 1.25MG/0.5ML NEB INH PRN (10:07)
[2017-07-22] MEDS: IPRATROPIUM BROMIDE NEB SOLN 0.02% 2.5 ML VIAL INH PRN (10:07)
[2017-07-22] MEDS: CYANOCOBALAMIN 1000 MCG/ML VIAL IM SCH (11:24)
[2017-07-22] MEDS: WARFARIN SOD 3 MG TAB PO SCH (16:45)
[2017-07-22] MEDS: METHYLPREDNISOLONE IV 60 MG in SYRINGE 0 ML IV SCH (20:11)
[2017-07-22] MEDS: CEPHALEXIN MONOHYDRATE 500 MG CAP PO SCH (20:12)
[2017-07-22] MEDS: INSULIN GLARGINE SOLOSTAR 100 UNITS/ML 3 ML PEN SC SCH (20:16)
[2017-07-22] MEDS: MIRTAZAPINE SOLTAB 15 MG PO SCH (23:18)
[2017-07-22] MEDS: PRAMIPEXOLE DIHYDROCHLORIDE 0.5 MG TAB PO SCH (23:19)
[2017-07-22] MEDS: TRAZODONE HCL 100 MG TAB PO SCH (23:19)
[2017-07-23] VITALS (13 sets, daily range): BP systolic 136–167; BP diastolic 59–82; PULSE 81–108; TEMP 36.7–36.9; O2SAT 90–99
[2017-07-23] MEDS: BUDESONIDE 0.25 MG/2 ML VIAL (PULMICORT) INH SCH ×3 (07:10→19:32)
[2017-07-23] MEDS: IPRATROPIUM BROMIDE NEB SOLN 0.02% 2.5 ML VIAL INH SCH ×3 (07:17→19:32)
[2017-07-23] MEDS: LEVALBUTEROL 1.25MG/0.5ML NEB INH SCH ×3 (07:17→19:32)
[2017-07-23 07:39] LABS: INR 1.1 (0.9-1.1)
[2017-07-23 08:30] LABS: CREATININE 0.84 mg/dl (0.60-1.20)
[2017-07-23] MEDS: LACTOBACILLUS ACIDOPHILUS (FLORANEX) TAB PO SCH ×4 (08:43→21:59)
[2017-07-23] MEDS: BusPIRone 15 MG TAB PO SCH ×3 (08:43→22:43)
[2017-07-23] MEDS: ENOXAPARIN 120 MG/0.8 ML SYR SQ SCH ×2 (08:44→21:59)
[2017-07-23] MEDS: VENLAFAXINE HCL XR 75 MG CAPXR PO SCH (08:44)
[2017-07-23] MEDS: CEPHALEXIN MONOHYDRATE 500 MG CAP PO SCH ×2 (08:44→22:00)
[2017-07-23] MEDS: PANTOprazole SOD 40 MG TAB PO SCH (08:45)
[2017-07-23] MEDS: DILTIAZEM HCL (TIAzac) 180 MG CAPCR PO SCH (08:45)
[2017-07-23] MEDS: VENLAFAXINE HCL XR 150 MG CAPXR PO SCH (08:45)
[2017-07-23] MEDS: AMIODARONE 200 MG TAB PO SCH (08:46)
[2017-07-23] MEDS: FLUTICASONE PROPIONATE NA SPR 16 GM BTL NAE SCH (08:46)
[2017-07-23] MEDS: ASPIRIN 81 MG ECTAB PO SCH (08:46)
[2017-07-23] MEDS: METHYLPREDNISOLONE IV 60 MG in SYRINGE 0 ML IV SCH ×2 (08:47→22:00)
[2017-07-23] MEDS: ATORVASTATIN 40 MG TAB PO SCH (08:47)
[2017-07-23] MEDS: NEPHROCAPS PO SCH (08:47)
[2017-07-23] MEDS: CYANOCOBALAMIN 1000 MCG/ML VIAL IM SCH (08:47)
[2017-07-23] MEDS: INSULIN ASPART 100 UNITS/ML 3 ML PEN SC SCH ×4 (08:51→22:03)
--- NOTE | 2017-07-23 14:34 | Progress Note ---
Subjective Date of Service: Jul 23, 2017. Subjective Pt evaluation today including: conversation w/ patient Pt feeling a bit SOB this AM. Otherwise feeling improved. No further facial or extremity numbness. LE redness and swelling remains improved. Tolerating PO without issue. Pt denies fever, chest pain, abd pain, n/v/c/d. Problem List Medical Problems: (1) Acute on chronic respiratory failure with hypoxia and hypercapnia Status: Acute (2) Anemia Status: Acute (3) Anemia Status: Acute (4) Anemia Status: Acute (5) Anemia Status: Acute (6) Bronchitis Status: Acute (7) Cellulitis Status: Acute (8) Chest pain Status: Acute (9) COPD with exacerbation Status: Acute (10) GI bleed Status: Acute (11) GI bleed Status: Acute (12) Hypokalemia Status: Acute (13) Respiratory failure Status: Acute (14) Sepsis Status: Acute (15) SOB (shortness of breath) Status: Acute (16) TIA (transient ischemic attack) Status: Acute Review of Systems All Other Systems: Reviewed and Negative Objective Vital Signs Date Time Temp Pulse Resp B/P (MAP) Pulse Ox O2 Delivery O2 Flow Rate FiO2 07/23/17 14:22 89 20 94 Nasal Cannula 4.0 07/23/17 12:00 Nasal Cannula 4.0 07/23/17 10:56 36.8 108 26 157/62 (93) 94 Nasal Cannula 5.0 07/23/17 08:00 Nasal Cannula 4.0 07/23/17 07:43 36.9 96 22 140/81 (100) 93 Nasal Cannula 4.5 07/23/17 07:17 97 20 99 Mask 5.0 07/23/17 05:21 36.8 89 17 167/82 (110) 90 BiPAP 4.0 07/23/17 04:00 Nasal Cannula 4.0 07/23/17 03:16 92 20 92 BiPAP/CPAP 4.0 07/23/17 03:15 92 92 4.0 07/23/17 00:26 36.8 82 23 145/66 (92) 96 Oxymask 4.0 07/22/17 23:59 Nasal Cannula 4.0 07/22/17 20:00 BiPAP 4.0 07/22/17 19:58 77 20 96 Nasal Cannula 4.0 07/22/17 19:32 37.4 101 21 152/64 (93) 93 Nasal Cannula 5.0 07/22/17 16:00 94 Nasal Cannula 4.0 07/22/17 15:32 36.7 90 21 158/68 (98) 97 4.0 Physical Exam Comments: General Appearance: no apparent distress, + obese Eyes: normal inspection, sclerae normal Respiratory/Chest: no respiratory distress, + wheezing-resolved Cardiovascular: regular rate, rhythm, + normal peripheral pulses Abdomen: non tender, soft Extremities: + pedal edema (trace pitting), + pertinent finding (diffuse TTP along b/l LE) Neurologic/Psychiatric: alert, normal mood/affect, oriented x 3 Skin: normal color, warm/dry Laboratory Results Last 24 Hours Test 07/22/17 16:07 07/22/17 20:02 07/23/17 06:50 07/23/17 07:20 Bedside Glucose 291 mg/dl 260 mg/dl 335 mg/dl Prothrombin Time 11.4 SECONDS Prothromb Time International Ratio 1.1 Creatinine 0.84 mg/dl Est Creatinine Clear Calc Drug Dose 70.4 ml/min Estimated GFR () 78.8 Estimated GFR (Non- 68.0 Test 07/23/17 11:26 Bedside Glucose 430 mg/dl Assessment and Plan 77 yo F with PMHx of chronic respiratory failure with chronic hypoxia, morbid obesity with BMI 44.4, likely obesity hypoventilation syndrome, LOGAN without cpap , claustrophobia, Acute hypoxic respiratory failure on chronic respiratory failure COPD Hypercapnia Hypoxia Likely obesity hypoventilation syndrome LOGAN, does not use CPAP due to mask fitting issues, pulm is addressing Remote tobacco abuse hx - quit 8 years ago - ABG is similar from her last hospital stay, likely compensating. - Started Bipap, applied settings 25/11 with adequate tidal volumes - Duonebs Steroids, taper to 60mg BID today Baseline home O2 use, 4L - Continue Pulmicort Respules, Flonase allergy relief, and have duonebs available q2hprn - Etiology??? The patient takes remeron 30 mg HS, trazodone 200 mg HS for insomia. She received Ativan 1 mg yesterday around 2:15pm for a MRI of the cspine and brain due to the c/o fleeting numbness yesterday as she has severe claustrophobia and would not have been able to tolerate the MRI otherwise. Both MRI studies were negative for acute findings. Bilateral lower extremity cellulitis-improving - Continue on vancomycin IV and Zosyn IV (07/19)--> keflex 500mg BID 07/22 ddimer neg Blood cx neg - PT/OT Fleeting numbness upper extremities and lower extremities--no further episodes - ESR neg x2 - MRI brain/c-spine: negative. - vitamin B12 is very low normal with high normal MCV and anemia , B12 injections added daily 07/22. Can move to PO on d/c Folic acid WNL Atrial fibrillation/hypertension- - Continue amiodarone 100 mg daily, aspirin 81 mg daily, diltiazem extended release 180 mg daily - Follow serial CBC with differential, BMP and magnesium levels. - INR 1.0, increased coumadin dose from 2 to 3 mg x2 doses without much change-- monitor bridge with lovenox Anxiety with depression-- - Continue buspirone 15 mg p.o. 3 times daily, Remeron SolTab 30 mg p.o. at bedtime, trazodone 200 mg p.o. at bedtime, and venlafaxine XR 225 mg p.o. daily. Diabetes mellitus-- - Hold metformin 500 mg p.o. daily, plans to increase to 1000mg QD on d/c - Place on Accu-Cheks before meals and at bedtime with NovoLog coverage per scale. GERD - Change omeprazole to pantoprazole. Restless leg syndrome - Continue pramipexole 0.5 mg p.o. at bedtime. DVT ppx: on coumadin CODE STATUS: FULL CODE Disposition: From home, daughter lives with her.
[2017-07-23] MEDS: WARFARIN SOD 3 MG TAB PO SCH (17:27)
[2017-07-23] MEDS ORDERED: LANTUS PER UNIT CHARGE SC STA (22:00)
[2017-07-23] MEDS ORDERED: METOPROLOL TARTRATE 1 MG/ML VIAL IV STA (22:05)
[2017-07-23] MEDS: TRAZODONE HCL 100 MG TAB PO SCH (22:42)
[2017-07-23] MEDS: MIRTAZAPINE SOLTAB 15 MG PO SCH (22:42)
[2017-07-23] MEDS: PRAMIPEXOLE DIHYDROCHLORIDE 0.5 MG TAB PO SCH (22:43)
[2017-07-23] MEDS: INSULIN GLARGINE SOLOSTAR 100 UNITS/ML 3 ML PEN SC SCH (22:51)
[2017-07-23] MEDS ORDERED: INSULIN GLARGINE SOLOSTAR 100 UNITS/ML 3 ML PEN SC SCH (23:00)
[2017-07-24] VITALS (12 sets, daily range): BP systolic 144–167; BP diastolic 50–81; PULSE 63–101; TEMP 36.6–37.1; O2SAT 90–98; BMI 44.8
[2017-07-24] MEDS: IPRATROPIUM BROMIDE NEB SOLN 0.02% 2.5 ML VIAL INH SCH ×4 (01:49→19:04)
[2017-07-24] MEDS: LEVALBUTEROL 1.25MG/0.5ML NEB INH SCH ×4 (01:49→21:00)
[2017-07-24 06:12] LABS: INR 1.3 (0.9-1.1)
[2017-07-24 06:30] LABS: CREATININE 0.7 mg/dl (0.60-1.20)
[2017-07-24 07:06] LABS: HEMATOCRIT 34.4 % (37-47); HEMOGLOBIN 10.2 g/dL (12.0-16.0); MEAN CELL VOLUME 96.1 fL (80-100); MEAN CORPUSCULAR HEMOGLOBIN 28.5 pg (25-34); MEAN CORPUSCULAR HGB CONC 29.7 g/dl (32-36); MEAN PLATELET VOLUME 11.2 fL (7.4-10.4); NUCLEATED RED BLOOD CELL ABS 0.03 K/uL (0-0); PLATELET COUNT 161 K/uL (130-400); RED CELL DISTRIBUTION WIDTH CV 17.3 % (11.5-14.5); WHITE BLOOD COUNT 6.98 K/uL (4.8-10.8)
[2017-07-24] MEDS: BUDESONIDE 0.5 MG/2 ML VIAL (PULMICORT) INH SCH ×2 (07:21→19:04)
[2017-07-24] MEDS: METHYLPREDNISOLONE IV 30 MG in SYRINGE 0 ML IV SCH ×2 (08:04→20:29)
[2017-07-24] MEDS: BusPIRone 15 MG TAB PO SCH ×3 (08:05→22:37)
[2017-07-24] MEDS: NEPHROCAPS PO SCH (08:05)
[2017-07-24] MEDS: PANTOprazole SOD 40 MG TAB PO SCH (08:05)
[2017-07-24] MEDS: ATORVASTATIN 40 MG TAB PO SCH (08:05)
[2017-07-24] MEDS: LACTOBACILLUS ACIDOPHILUS (FLORANEX) TAB PO SCH ×4 (08:05→20:28)
[2017-07-24] MEDS: CEPHALEXIN MONOHYDRATE 500 MG CAP PO SCH ×2 (08:06→20:29)
[2017-07-24] MEDS: DILTIAZEM HCL (TIAzac) 180 MG CAPCR PO SCH (08:06)
[2017-07-24] MEDS: AMIODARONE 200 MG TAB PO SCH (08:06)
[2017-07-24] MEDS: VENLAFAXINE HCL XR 75 MG CAPXR PO SCH (08:07)
[2017-07-24] MEDS: ASPIRIN 81 MG ECTAB PO SCH (08:07)
[2017-07-24] MEDS: VENLAFAXINE HCL XR 150 MG CAPXR PO SCH (08:07)
[2017-07-24] MEDS: CYANOCOBALAMIN 1000 MCG/ML VIAL IM SCH (08:08)
[2017-07-24] MEDS: ENOXAPARIN 120 MG/0.8 ML SYR SQ SCH ×2 (08:08→20:29)
[2017-07-24] MEDS: FLUTICASONE PROPIONATE NA SPR 16 GM BTL NAE SCH (08:09)
[2017-07-24] MEDS: INSULIN ASPART 100 UNITS/ML 3 ML PEN SC SCH ×4 (08:14→20:40)
[2017-07-24] MEDS ORDERED: NURSING VERBAL MED ORDER ONE (13:15)
--- NOTE | 2017-07-24 15:18 | Progress Note ---
Subjective Date of Service: Jul 24, 2017. Subjective Pt evaluation today including: conversation w/ patient, physical exam, chart review, lab review, review of studies, conversation w/ [employer] consultant, review of inpatient medication list Sitting up in chair, conversational, oxygen level is in baseline, current and is nasal cannula oxygen 4 L/min which is baseline at home, nurses report blood glucose up to 300, patient has no complaints, generally feeling weak, report to me not feeling ready to go home yet Problem List Medical Problems: (1) Acute on chronic respiratory failure with hypoxia and hypercapnia Status: Acute (2) Anemia Status: Acute (3) Anemia Status: Acute (4) Anemia Status: Acute (5) Anemia Status: Acute (6) Bronchitis Status: Acute (7) Cellulitis Status: Acute (8) Chest pain Status: Acute (9) COPD with exacerbation Status: Acute (10) GI bleed Status: Acute (11) GI bleed Status: Acute (12) Hypokalemia Status: Acute (13) Respiratory failure Status: Acute (14) Sepsis Status: Acute (15) SOB (shortness of breath) Status: Acute (16) TIA (transient ischemic attack) Status: Acute Review of Systems Constitutional: + weakness, + fatigue Eyes: No worsening of vision, No eye pain, No redness, No discharge, No diplopia ENT: No hearing loss, No unusual epistaxis, No nasal symptoms, No sore throat, No tinnitus, No dental problems, No trouble swallowing Respiratory: + cough, + shortness of breath, + dyspnea on exertion Cardiac: + edema, No chest pain, No orthopnea, No PND, No claudication, No palpitations Abdomen: No pain, No nausea, No vomiting, No diarrhea, No constipation Musculoskeletal: No joint pain, No muscle pain, No swelling, No calf pain Female : No dysuria, No urinary frequency, No hematuria, No incontinence, No abnormal vaginal bleeding, No vaginal discharge Neurologic: No memory loss, No paralysis, No weakness, No numbness/tingling, No vertigo, No balance problems Psychiatric: No depression symptoms, No anhedonism, No anxiety, No insomnia, No substance abuse Heme: No abnormal bleeding/bruising, No clotting problems, No swollen lymph nodes, No night sweats Endo: No fatigue, No excessive thirst, No excessive urination Skin: No rash, No itch, No new/changing skin lesions, No color change, No bleeding Objective Vital Signs Date Time Temp Pulse Resp B/P (MAP) Pulse Ox O2 Delivery O2 Flow Rate FiO2 07/24/17 14:10 87 20 96 Nasal Cannula 4.0 07/24/17 12:36 36.7 101 17 157/69 (98) 93 Nasal Cannula 4.0 07/24/17 12:00 Nasal Cannula 4.0 07/24/17 11:32 98 95 07/24/17 08:05 36.6 63 19 157/81 (106) 90 Nasal Cannula 4.0 07/24/17 08:00 Nasal Cannula 4.0 07/24/17 07:22 77 18 91 BiPAP/CPAP 4.0 07/24/17 07:22 77 91 4.0 07/24/17 04:00 Nasal Cannula 4.0 07/24/17 03:15 36.7 80 23 167/79 (108) 98 Nasal Cannula 4.0 07/24/17 01:49 74 18 91 BiPAP/CPAP 4.0 07/24/17 00:01 Nasal Cannula 4.0 07/23/17 23:59 86 94 4.0 07/23/17 23:51 36.9 83 21 148/68 (94) 97 Nasal Cannula 4.0 07/23/17 22:44 126 157/75 07/23/17 20:00 Nasal Cannula 4.0 07/23/17 19:40 36.7 103 22 149/72 (97) 92 Nasal Cannula 4.0 07/23/17 19:34 94 20 96 Nasal Cannula 4.0 07/23/17 16:00 Nasal Cannula 4.0 07/23/17 15:32 36.8 81 21 136/59 (84) 97 Nasal Cannula 4.0 Physical Exam General Appearance: WD/WN, no apparent distress, + obese Eyes: normal inspection, PERRL, EOMI, sclerae normal ENT: normal ENT inspection, hearing grossly normal, pharynx normal Neck: supple, no adenopathy, thyroid normal, no JVD, no carotid bruits, trachea midline Respiratory/Chest: chest non-tender, normal breath sounds, no respiratory distress, no accessory muscle use, + decreased breath sounds Cardiovascular: regular rate, rhythm, no gallop, no JVD, no murmur, + pertinent finding (2+ edema) Abdomen: normal bowel sounds, non tender, soft, no organomegaly, no pulsatile mass Extremities: normal range of motion, non-tender, normal inspection, no pedal edema, no calf tenderness, normal capillary refill, pelvis stable Neurologic/Psychiatric: 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, no motor/sensory deficits, alert, normal mood/affect, oriented x 3 Skin: normal color, warm/dry, no rash Lymphatic: no adenopathy Laboratory Results Last 24 Hours Test 07/23/17 15:49 07/23/17 19:44 07/23/17 21:50 07/23/17 23:55 Bedside Glucose 262 mg/dl 412 mg/dl 425 mg/dl 317 mg/dl Test 07/24/17 05:38 07/24/17 06:16 07/24/17 11:01 White Blood Count 6.98 K/uL Red Blood Count 3.58 M/uL Hemoglobin 10.2 g/dL Hematocrit 34.4 % Mean Corpuscular Volume 96.1 fL Mean Corpuscular Hemoglobin 28.5 pg Mean Corpuscular Hemoglobin Concent 29.7 g/dl RDW Standard Deviation 61.0 fL RDW Coefficient of Variation 17.3 % Platelet Count 161 K/uL Mean Platelet Volume 11.2 fL Nucleated RBC Absolute Count (auto) 0.03 K/uL Nucleated Red Blood Cells % 0.4 % Prothrombin Time 13.7 SECONDS Prothromb Time International Ratio 1.3 Creatinine 0.70 mg/dl Est Creatinine Clear Calc Drug Dose 84.4 ml/min Estimated GFR () 98.2 Estimated GFR (Non- 84.8 Bedside Glucose 244 mg/dl 307 mg/dl Assessment and Plan 77 yo F with PMHx of chronic respiratory failure with chronic hypoxia, morbid obesity with BMI 44.4, likely obesity hypoventilation syndrome, LOGAN without cpap , claustrophobia, patient was admitted on July 20, 2017 because of acute on chronic respiratory failure Acute hypoxic respiratory failure on chronic respiratory failure stable improving COPD Hypercapnia Hypoxia Likely obesity hypoventilation syndrome LOGAN, does not use CPAP due to mask fitting issues, pulm is addressing Remote tobacco abuse hx - quit 8 years ago Stable improving, Continue Bipap, applied settings 14/7 with adequate tidal volumes, continue Duonebs Tapering down steroids, currently is Solu-Medrol 30 twice daily Baseline home O2 use, 4L - Continue Pulmicort Respules, Flonase allergy relief, and have duonebs available q2hprn - Etiology of acute episodes of hypercapnia and respiratory failure 3 days ago The patient takes remeron 30 mg HS, trazodone 200 mg HS for insomia. She received Ativan 1 mg 4 days ago for a MRI of the cspine and brain due to the c/o fleeting numbness as she has severe claustrophobia and would not have been able to tolerate the MRI otherwise. Both MRI studies were negative for acute findings. Bilateral lower extremity cellulitis-improving, resolved, Continue on vancomycin IV and Zosyn IV (07/19)--> keflex 500mg BID 08/22 ddimer neg Blood cx neg Fleeting numbness upper extremities and lower extremities--no further episodes, ESR neg x2, MRI brain/c-spine: negative. vitamin B12 is very low normal with high normal MCV and anemia , B12 injections added daily 08/22. Can move to PO on d/c Folic acid WNL Atrial fibrillation/hypertension, stable, Continue amiodarone 100 mg daily, aspirin 81 mg daily, diltiazem extended release 180 mg daily INR was 1.0 upon admission, increased coumadin dose from 2 to 3 mg x2 doses without much change, today INR is 1.3 bridge with lovenox Anxiety with depression, Continue buspirone 15 mg p.o. 3 times daily, Remeron SolTab 30 mg p.o. at bedtime, trazodone 200 mg p.o. at bedtime, and venlafaxine XR 225 mg p.o. daily. 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 daily, plans to increase to 1000mg QD on d/c Continue sliding-scale GERD Restless leg syndrome DVT ppx: on coumadin CODE STATUS: FULL CODE Disposition: From home, daughter lives with her. Possible return home with home health care Continued [facility] stay due to: multiple IV medications needed Discharge planning: home
[2017-07-24] MEDS: INSULIN GLARGINE SOLOSTAR 100 UNITS/ML 3 ML PEN SC SCH ×2 (15:23→20:41)
[2017-07-24] MEDS: WARFARIN SOD 4 MG TAB PO SCH (17:16)
[2017-07-24] MEDS: TRAZODONE HCL 100 MG TAB PO SCH (22:37)
[2017-07-24] MEDS: PRAMIPEXOLE DIHYDROCHLORIDE 0.5 MG TAB PO SCH (22:37)
[2017-07-24] MEDS: MIRTAZAPINE SOLTAB 15 MG PO SCH (22:37)
[2017-07-25] VITALS (13 sets, daily range): BP systolic 128–181; BP diastolic 68–83; PULSE 74–98; TEMP 36.4–37; O2SAT 4–97
[2017-07-25] MEDS: LEVALBUTEROL 1.25MG/0.5ML NEB INH SCH ×4 (02:21→19:59)
[2017-07-25] MEDS: IPRATROPIUM BROMIDE NEB SOLN 0.02% 2.5 ML VIAL INH SCH ×4 (02:21→19:59)
[2017-07-25 06:18] LABS: INR 1.7 (0.9-1.1)
[2017-07-25 06:45] LABS: CALCIUM 8.2 mg/dl (8.5-10.1); CREATININE 0.74 mg/dl (0.60-1.20)
[2017-07-25] MEDS: BUDESONIDE 0.5 MG/2 ML VIAL (PULMICORT) INH SCH ×2 (07:27→20:00)
[2017-07-25] MEDS: METHYLPREDNISOLONE IV 30 MG in SYRINGE 0 ML IV SCH (08:35)
[2017-07-25] MEDS: INSULIN GLARGINE SOLOSTAR 100 UNITS/ML 3 ML PEN SC SCH ×2 (08:35→20:16)
[2017-07-25] MEDS: INSULIN ASPART 100 UNITS/ML 3 ML PEN SC SCH ×4 (08:35→21:29)
[2017-07-25] MEDS: BusPIRone 15 MG TAB PO SCH ×3 (08:36→20:15)
[2017-07-25] MEDS: DILTIAZEM HCL (TIAzac) 180 MG CAPCR PO SCH (08:37)
[2017-07-25] MEDS: AMIODARONE 200 MG TAB PO SCH (08:38)
[2017-07-25] MEDS: LACTOBACILLUS ACIDOPHILUS (FLORANEX) TAB PO SCH ×4 (08:38→20:15)
[2017-07-25] MEDS: PANTOprazole SOD 40 MG TAB PO SCH (08:38)
[2017-07-25] MEDS: NEPHROCAPS PO SCH (08:38)
[2017-07-25] MEDS: VENLAFAXINE HCL XR 150 MG CAPXR PO SCH (08:38)
[2017-07-25] MEDS: ENOXAPARIN 120 MG/0.8 ML SYR SQ SCH (08:38)
[2017-07-25] MEDS: ATORVASTATIN 40 MG TAB PO SCH (08:38)
[2017-07-25] MEDS: VENLAFAXINE HCL XR 75 MG CAPXR PO SCH (08:41)
[2017-07-25] MEDS: CEPHALEXIN MONOHYDRATE 500 MG CAP PO SCH ×2 (08:41→20:15)
[2017-07-25] MEDS: ASPIRIN 81 MG ECTAB PO SCH (08:41)
[2017-07-25] MEDS: CYANOCOBALAMIN 1000 MCG/ML VIAL IM SCH (08:41)
[2017-07-25] MEDS: FLUTICASONE PROPIONATE NA SPR 16 GM BTL NAE SCH (08:47)
[2017-07-25] MEDS ORDERED: FUROSEMIDE 20 MG TAB PO ONE (11:45)
[2017-07-25] MEDS ORDERED: LISINOPRIL 5 MG TAB PO ONE (14:30)
[2017-07-25] MEDS ORDERED: HydrALAZINE HCL 20 MG/ML VIAL IV. PRN (14:30)
--- NOTE | 2017-07-25 14:49 | Progress Note ---
Subjective Date of Service: Jul 25, 2017. Subjective Pt evaluation today including: conversation w/ patient, conversation w/ family , physical exam, chart review, lab review, review of studies, conversation w/ [employer] financial[employer] consultant, review of inpatient medication list Doing better, oxygen level has been in baseline 4 L/min pulse ox at 95%, occasional cough denies chest pain, report bilateral lower feet numbness, otherwise feeling okay Problem List Medical Problems: (1) Acute on chronic respiratory failure with hypoxia and hypercapnia Status: Acute (2) Anemia Status: Acute (3) Anemia Status: Acute (4) Anemia Status: Acute (5) Anemia Status: Acute (6) Bronchitis Status: Acute (7) Cellulitis Status: Acute (8) Chest pain Status: Acute (9) COPD with exacerbation Status: Acute (10) GI bleed Status: Acute (11) GI bleed Status: Acute (12) Hypokalemia Status: Acute (13) Respiratory failure Status: Acute (14) Sepsis Status: Acute (15) SOB (shortness of breath) Status: Acute (16) TIA (transient ischemic attack) Status: Acute Review of Systems Constitutional: + weakness, + fatigue, No fever, No chills, No sweats, No weight loss, No problem reported Eyes: + problem reported (Report nosebleeding a little bit last night, stop automatically), No worsening of vision, No eye pain, No redness, No discharge, No diplopia ENT: No hearing loss, No unusual epistaxis, No nasal symptoms, No sore throat, No tinnitus, No dental problems, No trouble swallowing Respiratory: + cough, + shortness of breath, No sputum, No wheezing, No dyspnea on exertion, No dyspnea at rest, No hemoptysis Cardiac: + edema, No chest pain, No orthopnea, No PND, No claudication, No palpitations Abdomen: No pain, No nausea, No vomiting, No diarrhea, No constipation Musculoskeletal: No joint pain, No muscle pain, No swelling, No calf pain Female : No dysuria, No urinary frequency, No hematuria, No incontinence, No abnormal vaginal bleeding, No vaginal discharge Neurologic: No memory loss, No paralysis, No weakness, No numbness/tingling, No vertigo, No balance problems Psychiatric: No depression symptoms, No anhedonism, No anxiety, No insomnia, No substance abuse Heme: No abnormal bleeding/bruising, No clotting problems, No swollen lymph nodes, No night sweats Endo: No fatigue, No excessive thirst, No excessive urination Skin: No rash, No itch, No new/changing skin lesions, No color change, No bleeding Objective Vital Signs Date Time Temp Pulse Resp B/P (MAP) Pulse Ox O2 Delivery O2 Flow Rate FiO2 07/25/17 14:12 90 18 95 Nasal Cannula 4.0 07/25/17 12:07 37.0 98 24 181/83 (115) 95 Room Air 98 07/25/17 12:00 Nasal Cannula 4.0 07/25/17 08:00 Nasal Cannula 4.0 07/25/17 07:43 36.5 79 20 158/79 (105) 94 Nasal Cannula 4.0 79 07/25/17 07:29 83 20 96 Nasal Cannula 4.0 07/25/17 04:11 36.7 81 22 161/73 (102) 97 Nasal Cannula 4.0 07/25/17 04:00 BiPAP 4.0 07/25/17 02:21 74 20 93 BiPAP/CPAP 4.0 07/25/17 00:09 82 95 4.0 07/25/17 00:01 BiPAP 4.0 07/24/17 23:17 37.1 84 25 154/66 (95) 95 Nasal Cannula 4.0 07/24/17 20:15 36.7 87 16 152/73 (99) 98 Nasal Cannula 4.0 07/24/17 20:00 Nasal Cannula 4.0 07/24/17 19:05 76 20 97 Nasal Cannula 4.0 07/24/17 16:00 98 Nasal Cannula 4.0 07/24/17 15:17 36.9 81 22 144/50 (81) 98 Nasal Cannula 4.0 Physical Exam General Appearance: WD/WN, no apparent distress, + obese Eyes: normal inspection, PERRL, EOMI, sclerae normal ENT: normal ENT inspection, hearing grossly normal, pharynx normal Neck: supple, no adenopathy, thyroid normal, no JVD, no carotid bruits, trachea midline Respiratory/Chest: chest non-tender, no respiratory distress, no accessory muscle use, + decreased breath sounds, + wheezing (Occasional) Cardiovascular: regular rate, rhythm, no gallop, no JVD, no murmur, + pertinent finding (1-2+) Abdomen: normal bowel sounds, non tender, soft, no organomegaly, no pulsatile mass Extremities: normal range of motion, non-tender, normal inspection, no calf tenderness, normal capillary refill, pelvis stable, + swelling (1-2+), + pertinent finding 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, no motor/sensory deficits, alert, normal mood/affect, oriented x 3 Skin: normal color, warm/dry, no rash Lymphatic: no adenopathy Laboratory Results Last 24 Hours Test 07/24/17 15:56 07/24/17 19:46 07/25/17 05:46 07/25/17 06:17 Bedside Glucose 313 mg/dl 249 mg/dl 211 mg/dl Prothrombin Time 17.6 SECONDS Prothromb Time International Ratio 1.7 Sodium Level 142 mmol/L Potassium Level 4.0 mmol/L Chloride Level 100 mmol/L Carbon Dioxide Level 38 mmol/L Anion Gap 4.0 mmol/L Blood Urea Nitrogen 24 mg/dl Creatinine 0.74 mg/dl Est Creatinine Clear Calc Drug Dose 80.2 ml/min Estimated GFR () 91.9 Estimated GFR (Non- 79.3 BUN/Creatinine Ratio 31.8 Random Glucose 221 mg/dl Calcium Level 8.2 mg/dl Magnesium Level 2.6 mg/dl Test 07/25/17 11:33 Bedside Glucose 267 mg/dl Assessment and Plan 77 yo F with PMHx of chronic respiratory failure with chronic hypoxia, morbid obesity with BMI 44.4, likely obesity hypoventilation syndrome, LOGAN without cpap , claustrophobia, patient was admitted on July 20, 2017 because of cellulitis, and acute on chronic respiratory failure Acute hypoxic respiratory failure on chronic respiratory failure: stable improving COPD Hypercapnia Hypoxia Likely obesity hypoventilation syndrome LOGAN, does not use CPAP due to mask fitting issues, discussed with patient's daughter about this issue, has requested clinical case manager to help to order a new CPAP mask We will change BiPAP at nighttime to CPAP per RT setting and preparing her to going home Remote tobacco abuse hx - quit 8 years ago continue Duonebs Tapering down steroids, start oral prednisone 20 mg p.o. twice daily - Continue Pulmicort Respules, Flonase allergy relief, and have duonebs available q2hprn Bilateral lower extremity cellulitis-improving, resolved , was on vancomycin IV and Zosyn IV (07/19)--> keflex 500mg BID 11/21 days ddimer neg Blood cx neg Fleeting numbness upper extremities and lower extremities, Today feeling of bilateral lower feet numbness ESR neg x2, MRI brain/c-spine: negative, vitamin B12 is very low normal with high normal MCV and anemia , B12 injections added daily 09/21. Can move to PO on d/c Folic acid WNL On the reason for the numbness could be because of neuropathy or a side effect from nebulizer treatment Explaining all of this about condition to daughter Madiha, she understand Atrial fibrillation/hypertension, stable, Continue amiodarone 100 mg daily, aspirin 81 mg daily, diltiazem extended release 180 mg daily INR was 1.0 upon admission, increased coumadin, today INR is 1.7 Discontinue bridge with lovenox because approaching 2 therapeutic because patient has nosebleeding briefly yesterday Anxiety with depression, Continue buspirone 15 mg p.o. 3 times daily, Remeron SolTab 30 mg p.o. at bedtime, trazodone 200 mg p.o. at bedtime, and venlafaxine XR 225 mg p.o. daily. Diabetes mellitus, blood glucose out of control because of steroid, which is better, adjusting Lantus dose, hold metformin 500 mg p.o. daily, plans to increase to 1000mg QD on d/c Continue sliding-scale GERD Restless leg syndrome DVT ppx: on coumadin CODE STATUS: FULL CODE Disposition: From home, daughter lives with her. Possible return home with home health care, I discussed with patient's daughter admitting about patient's condition and oral of the above condition and care plan, arranged family conference tomorrow afternoon 4:00 pm for the next step, Possible if continue to be stable, and able to follow-up PCP and had BiPAP mask changed, patient maybe able to go home in 1-2 days Continued [facility] stay due to: home environment unsafe for pt Discharge planning: home
--- NOTE | 2017-07-25 18:20 | Pulmonology Progress Note ---
Pulmonary Progress Note Date of Service Jul 25, 2017. Attending Dr. Deleon Subjective Patient sitting up in bed feeling well today Objective Vital Signs -reviewed and stable Physical Exam: General - NAD. In bed and states that she is very comfortable Eyes - No icterus, gaze conjugate ENT - Mucosa moist, no lesions or candidiasis. Nasal cannula in place Neck - Supple, No JVD Lungs - Diffuse wheezes. Decreased breath sounds at the bases. Heart - Regular, rate controlled but in the high 90s Abdomen - Soft, NT, ND, BS present Extremities - B/L edema, pedal pulses intact Neuro - A&OX4 Assessment & Plan 77-year-old female with acute on chronic hypercapnic respiratory insufficiency/ failure: 1. Hypercapnia: This is most likely a combination of COPD as well as LOGAN versus obesity hypoventilation syndrome. At this time I have had a long conversation with the family and suggest we move forward with a nocturnal/ oximetry study. The patient already has a PaCO2 greater than 52 and will only need oximetry study showing desaturations less than 88% for greater than 5 minutes to qualify for BiPAP. Of note the patient has qualified for BiPAP in the past but had poor compliance. At this time the patient and family have been well educated about the etiologies of her hypercapnia and have decided to be aggressive and consistent with BiPAP versus CPAP. #2 sleep apnea: Patient may have sleep apnea versus obesity hypoventilation syndrome and as an outpatient will require evaluation by the sleep team/Dr. Arben gregory, Jessica Sparks. At this time they can evaluate the patient possibly perform polysomnogram/titration study. Data Medications: Current Inpatient Medications Medications (Trade) Dose Ordered Sig/Buddy Route Start Time Stop Time Status Last Admin Dose Admin Acetaminophen (Tylenol Tab) 650 mg Q4H PRN PO 07/20/17 00:30 08/19/17 00:29 07/20/17 08:05 650 MG Al Hydrox/Mg Hydrox/Simethicone (Maalox Max Susp) 15 ml Q4H PRN PO 07/20/17 00:30 08/19/17 00:29 Magnesium Hydroxide (Milk Of Magnesia Susp) 30 ml Q12H PRN PO 07/20/17 00:30 08/19/17 00:29 Nitroglycerin (Nitrostat Tab) 0.4 mg UD PRN SL 3/8/18 00:30 4/7/18 00:29 Polyethylene (Miralax Powder Packet) 17 gm DAILY PRN PO 07/20/17 00:30 08/19/17 00:29 07/20/17 16:09 17 GM Aspirin (Ecotrin Tab) 81 mg DAILY PO 07/20/17 09:00 08/19/17 08:59 07/25/17 08:41 81 MG Atorvastatin Calcium (Lipitor Tab) 80 mg DAILY PO 07/20/17 09:00 08/19/17 08:59 07/25/17 08:38 80 MG Buspirone HCl (BusPAR TAB) 15 mg TID PO 07/20/17 09:00 08/19/17 08:59 07/25/17 15:07 15 MG Diltiazem HCl (TIAzac CAP) 180 mg DAILY PO 07/20/17 09:00 08/19/17 08:59 07/25/17 08:37 180 MG Fluticasone Propionate (Flonase Nasal [place]) 2 sprays DAILY BUTCH 07/20/17 09:00 08/19/17 08:59 07/25/17 08:47 2 SPRAYS Pramipexole Dihydrochloride (miraPEX TAB) 0.5 mg HS PO 07/20/17 21:00 08/19/17 20:59 07/24/17 22:37 0.5 MG Trazodone HCl (Desyrel Tab) 200 mg HS PO 07/20/17 21:00 08/19/17 20:59 07/24/17 22:37 200 MG Venlafaxine HCl (effeXOR EXTENDED REL CAP) 75 mg DAILY PO 07/20/17 09:00 08/19/17 08:59 07/25/17 08:41 75 MG Venlafaxine HCl (effeXOR EXTENDED REL CAP) 150 mg DAILY PO 07/20/17 09:00 08/19/17 08:59 07/25/17 08:38 150 MG Vitamin B Complex/ Vit C/Folic Acid (Nephrocaps) 1 cap DAILY PO 07/20/17 09:00 08/19/17 08:59 07/25/17 08:38 1 CAP Lactobacillus Acidophilus (Floranex Tab) 4 tab QIDM PO 07/20/17 08:00 08/19/17 07:59 07/25/17 12:11 4 TAB Amiodarone HCl (Cordarone Tab) 100 mg QAM PO 07/20/17 09:00 08/19/17 08:59 07/25/17 08:38 100 MG Mirtazapine (Remeron Solutab) 30 mg HS PO 07/20/17 21:00 08/19/17 20:59 07/24/17 22:37 30 MG Pantoprazole Sodium (Protonix Tab) 40 mg QAM PO 07/20/17 09:00 08/19/17 08:59 07/25/17 08:38 40 MG Ondansetron HCl (Zofran Inj) 4 mg Q6H PRN IV 07/20/17 00:45 08/19/17 00:44 Ipratropium [place] (Atrovent 0.02% 0.5MG/2.5ML Neb) 0.5 mg Q2H PRN INH 07/20/17 01:30 08/19/17 01:29 07/22/17 10:07 0.5 MG Levalbuterol (Xopenex 1.25MG/ 0.5ML Neb) 1.25 mg Q2H PRN INH 07/20/17 01:30 08/19/17 01:29 07/22/17 10:07 1.25 MG Insulin Aspart (novoLOG ASPART) SLIDING SCALE G... ACHS SC 07/20/17 16:30 08/19/17 16:29 07/25/17 12:11 7 UNITS Glucose (Glucose 40% Gel) 15-30 GRAMS 15 GRAMS... UD PRN PO 07/20/17 16:45 08/19/17 16:44 Glucose (Glucose Chew Tab) 4-8 Tablets 4 Tabl... UD PRN PO 07/20/17 16:45 08/19/17 16:44 Dextrose (Dextrose 50% 50ML Syringe) 25-50ML OF 50% DW IV FOR... UD PRN IV 07/20/17 16:45 08/19/17 16:44 Glucagon (Glucagon Inj) 1 mg UD PRN SQ 07/20/17 16:45 08/19/17 16:44 Ipratropium [place] (Atrovent 0.02% 0.5MG/2.5ML Neb) 0.5 mg Q6R INH 07/21/17 15:00 08/20/17 14:59 07/25/17 14:11 0.5 MG Levalbuterol (Xopenex 1.25MG/ 0.5ML Neb) 1.25 mg Q6R INH 07/21/17 15:00 08/20/17 14:59 07/25/17 14:11 1.25 MG Cephalexin Monohydrate (Keflex Cap) 500 mg BID PO 07/22/17 21:00 08/01/17 20:59 07/25/17 08:41 500 MG Cyanocobalamin (Vitamin B-12 Inj) 1,000 mcg DAILY IM 07/22/17 10:15 08/21/17 10:14 07/25/17 08:41 1,000 MCG Budesonide (Pulmicort Respules 0.5MG/ 2ML Neb Soln) 0.5 mg BIDR INH 07/24/17 08:00 08/19/17 07:59 07/25/17 07:27 0.5 MG Insulin Glargine (Lantus Solostar Pen) 29 units BID SC 07/24/17 13:30 08/23/17 13:29 07/25/17 08:35 29 UNITS Warfarin Sodium (Coumadin Tab) 4 mg QDD PO 07/24/17 16:45 08/19/17 17:59 07/24/17 17:16 4 MG Prednisone (PredniSONE TAB) 20 mg BID PO 07/25/17 20:00 08/24/17 20:59 Furosemide (Lasix Tab) 20 mg QAM PO 07/26/17 08:00 08/25/17 08:59 Lisinopril (Zestril Tab) 5 mg QAM PO 07/26/17 08:00 08/25/17 08:59 Hydralazine HCl (HydrALAZINE INJ) 20 mg Q6 PRN IV. 07/25/17 14:30 08/24/17 14:29 I & O: 24-Hour Column 07/26/17 08:00 Intake Total 700 ml Balance 700 ml Vital Signs: Date Time Temp Pulse Resp B/P (MAP) Pulse Ox O2 Delivery O2 Flow Rate FiO2 07/25/17 15:40 37.0 87 22 159/68 (98) 94 Nasal Cannula 4.0 07/25/17 15:17 37.0 90 18 95 4.0 07/25/17 14:12 90 18 95 Nasal Cannula 4.0 07/25/17 12:07 37.0 98 24 181/83 (115) 95 Room Air 98 07/25/17 12:00 Nasal Cannula 4.0 07/25/17 08:00 Nasal Cannula 4.0 07/25/17 07:43 36.5 79 20 158/79 (105) 94 Nasal Cannula 4.0 79 07/25/17 07:29 83 20 96 Nasal Cannula 4.0 07/25/17 04:11 36.7 81 22 161/73 (102) 97 Nasal Cannula 4.0 07/25/17 04:00 BiPAP 4.0 07/25/17 02:21 74 20 93 BiPAP/CPAP 4.0 07/25/17 00:09 82 95 4.0 07/25/17 00:01 BiPAP 4.0 07/24/17 23:17 37.1 84 25 154/66 (95) 95 Nasal Cannula 4.0 07/24/17 20:15 36.7 87 16 152/73 (99) 98 Nasal Cannula 4.0 07/24/17 20:00 Nasal Cannula 4.0 07/24/17 19:05 76 20 97 Nasal Cannula 4.0 Laboratory Results: Last 24 Hours Test 07/24/17 19:46 07/25/17 05:46 07/25/17 06:17 07/25/17 11:33 Bedside Glucose 249 mg/dl 211 mg/dl 267 mg/dl Prothrombin Time 17.6 SECONDS Prothromb Time International Ratio 1.7 Sodium Level 142 mmol/L Potassium Level 4.0 mmol/L Chloride Level 100 mmol/L Carbon Dioxide Level 38 mmol/L Anion Gap 4.0 mmol/L Blood Urea Nitrogen 24 mg/dl Creatinine 0.74 mg/dl Est Creatinine Clear Calc Drug Dose 80.2 ml/min Estimated GFR () 91.9 Estimated GFR (Non- 79.3 BUN/Creatinine Ratio 31.8 Random Glucose 221 mg/dl Calcium Level 8.2 mg/dl Magnesium Level 2.6 mg/dl Test 07/25/17 17:59 Bedside Glucose 264 mg/dl
[2017-07-25] MEDS: WARFARIN SOD 4 MG TAB PO SCH (18:34)
[2017-07-25] MEDS: PRAMIPEXOLE DIHYDROCHLORIDE 0.5 MG TAB PO SCH (21:27)
[2017-07-25] MEDS: TRAZODONE HCL 100 MG TAB PO SCH (21:27)
[2017-07-25] MEDS: MIRTAZAPINE SOLTAB 15 MG PO SCH (21:28)
[2017-07-26] VITALS (8 sets, daily range): BP systolic 124–180; BP diastolic 71–76; PULSE 80–103; TEMP 36.3–36.9; O2SAT 91–96
[2017-07-26] MEDS: IPRATROPIUM BROMIDE NEB SOLN 0.02% 2.5 ML VIAL INH SCH ×4 (01:52→19:20)
[2017-07-26] MEDS: LEVALBUTEROL 1.25MG/0.5ML NEB INH SCH ×4 (01:52→19:20)
[2017-07-26] MEDS: BUDESONIDE 0.5 MG/2 ML VIAL (PULMICORT) INH SCH ×2 (07:13→19:20)
[2017-07-26 08:00] LABS: INR 1.9 (0.9-1.1)
[2017-07-26] MEDS: CEPHALEXIN MONOHYDRATE 500 MG CAP PO SCH ×2 (08:07→20:59)
[2017-07-26] MEDS: LACTOBACILLUS ACIDOPHILUS (FLORANEX) TAB PO SCH ×4 (08:07→20:59)
[2017-07-26] MEDS: BusPIRone 15 MG TAB PO SCH ×3 (08:07→20:59)
[2017-07-26] MEDS: LISINOPRIL 5 MG TAB PO SCH (08:08)
[2017-07-26 08:18] LABS: PHOSPHORUS 3.5 mg/dl (2.5-4.9)
[2017-07-26] MEDS: ASPIRIN 81 MG ECTAB PO SCH (08:36)
[2017-07-26] MEDS: PANTOprazole SOD 40 MG TAB PO SCH (08:36)
[2017-07-26] MEDS: VENLAFAXINE HCL XR 75 MG CAPXR PO SCH (08:37)
[2017-07-26] MEDS: ATORVASTATIN 40 MG TAB PO SCH (08:37)
[2017-07-26] MEDS: DILTIAZEM HCL (TIAzac) 180 MG CAPCR PO SCH (08:38)
[2017-07-26] MEDS: NEPHROCAPS PO SCH (08:38)
[2017-07-26] MEDS: VENLAFAXINE HCL XR 150 MG CAPXR PO SCH (08:39)
[2017-07-26] MEDS: AMIODARONE 200 MG TAB PO SCH (08:39)
[2017-07-26] MEDS: FUROSEMIDE 20 MG TAB PO SCH (08:42)
[2017-07-26] MEDS: CYANOCOBALAMIN 1000 MCG/ML VIAL IM SCH (08:43)
[2017-07-26] MEDS: INSULIN ASPART 100 UNITS/ML 3 ML PEN SC SCH ×4 (08:46→21:02)
[2017-07-26] MEDS: INSULIN GLARGINE SOLOSTAR 100 UNITS/ML 3 ML PEN SC SCH ×2 (08:46→21:01)
[2017-07-26] MEDS: FLUTICASONE PROPIONATE NA SPR 16 GM BTL NAE SCH (08:47)
[2017-07-26] MEDS ORDERED: NURSING DECISION MEDICATION ORDER SCH (10:45)
[2017-07-26] MEDS ORDERED: MICONAZOLE NITRATE POWDER 43 GM EXT PRN (12:00)
--- NOTE | 2017-07-26 12:24 | Pulmonology Progress Note ---
Pulmonary Progress Note Date of Service Jul 26, 2017. Attending Dr. Deleon Subjective Patient stable today not she is back to her baseline Objective Vital Signs -reviewed and stable Physical Exam: General - NAD. In bed and states that she is very comfortable Eyes - No icterus, gaze conjugate ENT - Mucosa moist, no lesions or candidiasis. Nasal cannula in place Neck - Supple, No JVD Lungs - Diffuse wheezes. Decreased breath sounds at the bases. Heart - Regular, rate controlled but in the high 90s Abdomen - Soft, NT, ND, BS present Extremities - B/L edema, pedal pulses intact Neuro - A&OX4 Assessment & Plan 77-year-old female with acute on chronic hypercapnic respiratory insufficiency/ failure: 1. Hypercapnia: Once again I believe this is most likely a combination of obesity hypoventilation and COPD. I was able to find the patient's previous pulmonary function studies from 01/06/2017 which did show severe obstructive ventilatory disease with an FEV1 of 41% and no significant reversibility. This time I suggest we taper the steroids over the next 14 days. #2 Sleep Apnea: It is highly probable this patient has complex sleep apnea and will require follow-up by our sleep team Dr. Arben gregory and/or Jessica Loza. Her oximetry study did have significant desaturation for approximately 1688 seconds/28 minutes less than 88% continuously. This combined with the patient is awake ABG of greater than 52 mins the standards for sending the patient home on BiPAP. At this time he continue her current BiPAP therapy of an IPAP of 14/ EPAP 7 with 4 L nasal cannula administered supplementally. Believe the patient to be discharged at this time and once again followed up by the sleep team. Data Medications: Current Inpatient Medications Medications (Trade) Dose Ordered Sig/Buddy Route Start Time Stop Time Status Last Admin Dose Admin Acetaminophen (Tylenol Tab) 650 mg Q4H PRN PO 07/20/17 00:30 08/19/17 00:29 07/20/17 08:05 650 MG Al Hydrox/Mg Hydrox/Simethicone (Maalox Max Susp) 15 ml Q4H PRN PO 07/20/17 00:30 08/19/17 00:29 Magnesium Hydroxide (Milk Of Magnesia Susp) 30 ml Q12H PRN PO 07/20/17 00:30 08/19/17 00:29 Nitroglycerin (Nitrostat Tab) 0.4 mg UD PRN SL 07/20/17 00:30 08/19/17 00:29 Polyethylene (Miralax Powder Packet) 17 gm DAILY PRN PO 07/20/17 00:30 08/19/17 00:29 07/20/17 16:09 17 GM Aspirin (Ecotrin Tab) 81 mg DAILY PO 07/20/17 09:00 08/19/17 08:59 07/26/17 08:36 81 MG Atorvastatin Calcium (Lipitor Tab) 80 mg DAILY PO 07/20/17 09:00 08/19/17 08:59 07/26/17 08:37 80 MG Buspirone HCl (BusPAR TAB) 15 mg TID PO 07/20/17 09:00 08/19/17 08:59 07/26/17 08:07 15 MG Diltiazem HCl (TIAzac CAP) 180 mg DAILY PO 07/20/17 09:00 08/19/17 08:59 07/26/17 08:38 180 MG Fluticasone Propionate (Flonase Nasal [place]) 2 sprays DAILY BUTCH 07/20/17 09:00 08/19/17 08:59 07/26/17 08:47 2 SPRAYS Pramipexole Dihydrochloride (miraPEX TAB) 0.5 mg HS PO 07/20/17 21:00 08/19/17 20:59 07/25/17 21:27 0.5 MG Trazodone HCl (Desyrel Tab) 200 mg HS PO 07/20/17 21:00 08/19/17 20:59 07/25/17 21:27 200 MG Venlafaxine HCl (effeXOR EXTENDED REL CAP) 75 mg DAILY PO 07/20/17 09:00 08/19/17 08:59 07/26/17 08:37 75 MG Venlafaxine HCl (effeXOR EXTENDED REL CAP) 150 mg DAILY PO 07/20/17 09:00 08/19/17 08:59 07/26/17 08:39 150 MG Vitamin B Complex/ Vit C/Folic Acid (Nephrocaps) 1 cap DAILY PO 07/20/17 09:00 08/19/17 08:59 07/26/17 08:38 1 CAP Lactobacillus Acidophilus (Floranex Tab) 4 tab QIDM PO 07/20/17 08:00 08/19/17 07:59 07/26/17 08:07 4 TAB Amiodarone HCl (Cordarone Tab) 100 mg QAM PO 07/20/17 09:00 08/19/17 08:59 07/26/17 08:39 100 MG Mirtazapine (Remeron Solutab) 30 mg HS PO 07/20/17 21:00 08/19/17 20:59 07/25/17 21:28 30 MG Pantoprazole Sodium (Protonix Tab) 40 mg QAM PO 07/20/17 09:00 08/19/17 08:59 07/26/17 08:36 40 MG Ondansetron HCl (Zofran Inj) 4 mg Q6H PRN IV 07/20/17 00:45 08/19/17 00:44 Ipratropium [place] (Atrovent 0.02% 0.5MG/2.5ML Neb) 0.5 mg Q2H PRN INH 07/20/17 01:30 08/19/17 01:29 07/22/17 10:07 0.5 MG Levalbuterol (Xopenex 1.25MG/ 0.5ML Neb) 1.25 mg Q2H PRN INH 07/20/17 01:30 08/19/17 01:29 07/22/17 10:07 1.25 MG Insulin Aspart (novoLOG ASPART) SLIDING SCALE G... ACHS SC 07/20/17 16:30 08/19/17 16:29 07/26/17 08:46 1 UNITS Glucose (Glucose 40% Gel) 15-30 GRAMS 15 GRAMS... UD PRN PO 07/20/17 16:45 08/19/17 16:44 Glucose (Glucose Chew Tab) 4-8 Tablets 4 Tabl... UD PRN PO 07/20/17 16:45 08/19/17 16:44 Dextrose (Dextrose 50% 50ML Syringe) 25-50ML OF 50% DW IV FOR... UD PRN IV 07/20/17 16:45 08/19/17 16:44 Glucagon (Glucagon Inj) 1 mg UD PRN SQ 07/20/17 16:45 08/19/17 16:44 Ipratropium [place] (Atrovent 0.02% 0.5MG/2.5ML Neb) 0.5 mg Q6R INH 07/21/17 15:00 08/20/17 14:59 07/26/17 07:13 0.5 MG Levalbuterol (Xopenex 1.25MG/ 0.5ML Neb) 1.25 mg Q6R INH 07/21/17 15:00 08/20/17 14:59 07/26/17 07:13 1.25 MG Cephalexin Monohydrate (Keflex Cap) 500 mg BID PO 07/22/17 21:00 08/01/17 20:59 07/26/17 08:07 500 MG Cyanocobalamin (Vitamin B-12 Inj) 1,000 mcg DAILY IM 07/22/17 10:15 08/21/17 10:14 07/26/17 08:43 1,000 MCG Budesonide (Pulmicort Respules 0.5MG/ 2ML Neb Soln) 0.5 mg BIDR INH 07/24/17 08:00 08/19/17 07:59 07/26/17 07:13 0.5 MG Insulin Glargine (Lantus Solostar Pen) 29 units BID SC 07/24/17 13:30 08/23/17 13:29 07/26/17 08:46 29 UNITS Warfarin Sodium (Coumadin Tab) 4 mg QDD PO 07/24/17 16:45 08/19/17 17:59 07/25/17 18:34 4 MG Prednisone (PredniSONE TAB) 20 mg BID PO 07/25/17 20:00 08/24/17 20:59 07/26/17 08:06 20 MG Furosemide (Lasix Tab) 20 mg QAM PO 07/26/17 08:00 08/25/17 08:59 07/26/17 08:42 20 MG Lisinopril (Zestril Tab) 5 mg QAM PO 07/26/17 08:00 08/25/17 08:59 07/26/17 08:08 5 MG Hydralazine HCl (HydrALAZINE INJ) 20 mg Q6 PRN IV. 07/25/17 14:30 08/24/17 14:29 Miconazole Nitrate (Desenex Powder) 1 appln PRN PRN EXT 07/26/17 12:00 08/25/17 11:59 Vital Signs: Date Time Temp Pulse Resp B/P (MAP) Pulse Ox O2 Delivery O2 Flow Rate FiO2 07/26/17 11:23 124/76 (92) 07/26/17 08:00 Nasal Cannula 2.0 07/26/17 07:45 36.3 85 16 180/73 (108) 96 Nasal Cannula 3.0 07/26/17 07:16 88 16 96 Nasal Cannula 2.0 07/26/17 06:46 82 91 Nasal Cannula 2.0 07/26/17 00:00 Nasal Cannula 2.0 07/25/17 23:59 36.6 79 20 163/80 (107) 4 07/25/17 22:11 89 128/72 (90) 07/25/17 20:00 88 16 95 Nasal Cannula 4.0 07/25/17 15:45 36.4 93 18 164/76 (105) 94 Nasal Cannula 4.0 07/25/17 15:45 Nasal Cannula 4.0 07/25/17 15:40 37.0 87 22 159/68 (98) 94 Nasal Cannula 4.0 07/25/17 15:17 37.0 90 18 95 4.0 07/25/17 14:12 90 18 95 Nasal Cannula 4.0 Laboratory Results: Last 24 Hours Test 07/25/17 17:59 07/25/17 20:12 07/26/17 07:27 07/26/17 08:04 Bedside Glucose 264 mg/dl 239 mg/dl 103 mg/dl Prothrombin Time 20.2 SECONDS Prothromb Time International Ratio 1.9 Phosphorus Level 3.5 mg/dl Magnesium Level 2.6 mg/dl Test 07/26/17 11:45 Bedside Glucose 155 mg/dl
--- NOTE | 2017-07-26 16:11 | Progress Note ---
Subjective Date of Service: Jul 26, 2017. Subjective Pt evaluation today including: conversation w/ patient, conversation w/ family , physical exam, chart review, lab review, review of studies, conversation w/ consultant teacher, review of inpatient medication list Generally feeling much better, eating drinking good, up walk with walker with assistance, pulse ox 94% on 2 L and rest, no other complaint Problem List Medical Problems: (1) Acute on chronic respiratory failure with hypoxia and hypercapnia Status: Acute (2) Anemia Status: Acute (3) Anemia Status: Acute (4) Anemia Status: Acute (5) Anemia Status: Acute (6) Bronchitis Status: Acute (7) Cellulitis Status: Acute (8) Chest pain Status: Acute (9) COPD with exacerbation Status: Acute (10) GI bleed Status: Acute (11) GI bleed Status: Acute (12) Hypokalemia Status: Acute (13) Respiratory failure Status: Acute (14) Sepsis Status: Acute (15) SOB (shortness of breath) Status: Acute (16) TIA (transient ischemic attack) Status: Acute Review of Systems Constitutional: + weakness, + fatigue, No fever, No chills, No sweats, No weight loss, No problem reported Eyes: No worsening of vision, No eye pain, No redness, No discharge, No diplopia ENT: No hearing loss, No unusual epistaxis, No nasal symptoms, No sore throat, No tinnitus, No dental problems, No trouble swallowing Respiratory: + see HPI, + cough, + shortness of breath, + dyspnea on exertion, No sputum, No wheezing, No dyspnea at rest, No hemoptysis Cardiac: No chest pain, No orthopnea, No PND, No edema, No claudication, No palpitations Abdomen: No pain, No nausea, No vomiting, No diarrhea, No constipation Musculoskeletal: No joint pain, No muscle pain, No swelling, No calf pain Female : No dysuria, No urinary frequency, No hematuria, No incontinence, No abnormal vaginal bleeding, No vaginal discharge Neurologic: No memory loss, No paralysis, No weakness, No numbness/tingling, No vertigo, No balance problems Psychiatric: No depression symptoms, No anhedonism, No anxiety, No insomnia, No substance abuse Heme: No abnormal bleeding/bruising, No clotting problems, No swollen lymph nodes, No night sweats Endo: No fatigue, No excessive thirst, No excessive urination Skin: No rash, No itch, No new/changing skin lesions, No color change, No bleeding Objective Vital Signs Date Time Temp Pulse Resp B/P (MAP) Pulse Ox O2 Delivery O2 Flow Rate FiO2 07/26/17 15:59 36.8 92 18 145/71 (95) 94 Nasal Cannula 3.0 07/26/17 14:02 103 16 93 Nasal Cannula 2.0 07/26/17 11:23 124/76 (92) 07/26/17 08:00 Nasal Cannula 2.0 07/26/17 07:45 36.3 85 16 180/73 (108) 96 Nasal Cannula 3.0 07/26/17 07:16 88 16 96 Nasal Cannula 2.0 07/26/17 06:46 82 91 Nasal Cannula 2.0 07/26/17 00:00 Nasal Cannula 2.0 07/25/17 23:59 36.6 79 20 163/80 (107) 4 07/25/17 22:11 89 128/72 (90) 07/25/17 20:00 88 16 95 Nasal Cannula 4.0 Physical Exam General Appearance: WD/WN, no apparent distress, + obese Eyes: normal inspection, PERRL, EOMI, sclerae normal ENT: normal ENT inspection, hearing grossly normal, pharynx normal Neck: supple, no adenopathy, thyroid normal, no JVD, no carotid bruits, trachea midline Respiratory/Chest: chest non-tender, lungs clear, normal breath sounds, no respiratory distress, no accessory muscle use Cardiovascular: regular rate, rhythm, no gallop, no JVD, no murmur, + pertinent finding (Trace to 1+ edema) Abdomen: normal bowel sounds, non tender, soft, no organomegaly, no pulsatile mass Extremities: normal range of motion, non-tender, normal inspection, no pedal edema, no calf tenderness, normal capillary refill, pelvis stable Neurologic/Psychiatric: sem manager II-XII nml as tested, no motor/sensory deficits, alert, normal mood/affect, oriented x 3 Skin: normal color, warm/dry, no rash Lymphatic: no adenopathy Laboratory Results Last 24 Hours Test 07/25/17 17:59 07/25/17 20:12 07/26/17 07:27 07/26/17 08:04 Bedside Glucose 264 mg/dl 239 mg/dl 103 mg/dl Prothrombin Time 20.2 SECONDS Prothromb Time International Ratio 1.9 Phosphorus Level 3.5 mg/dl Magnesium Level 2.6 mg/dl Test 07/26/17 11:45 Bedside Glucose 155 mg/dl Assessment and Plan 77 yo F with PMHx of chronic respiratory failure with chronic hypoxia, morbid obesity with BMI 44.4, likely obesity hypoventilation syndrome, LOGAN without cpap , claustrophobia, patient was admitted on July 20, 2017 because of cellulitis, and acute on chronic respiratory failure Acute hypoxic respiratory failure on chronic respiratory failure: stable improving, approach to patient COPD Hypercapnia Hypoxia Likely obesity hypoventilation syndrome LOGAN, per daughter, does not use CPAP due to mask fitting issues, pulm saw pt, recs to taper the steroids over the next 14 days. has complex sleep apnea, need to follow-up by our sleep team Dr. Arben gregory and/or Jessica Loza. lat night Oximetry study did have significant desaturation for approximately 1688 seconds/28 minutes less than 88% continuously. This combined with the patient is awake ABG of greater than 52 mins the standards for sending the patient home on BiPAP. RX given to CM with setting of BiPAP therapy of an IPAP of 14/EPAP 7 with 4 L nasal cannula administered supplementally. Remote tobacco abuse hx - quit 8 years ago continue Duonebs Continue Pulmicort Respules, Flonase allergy relief, and have duonebs available q2hprn Bilateral lower extremity cellulitis-improving/resolved , was on vancomycin IV and Zosyn IV (07/19)--> keflex 500mg BID 8/10 days ddimer neg Blood cx neg Fleeting numbness upper extremities and lower extremities, totally resolved ESR neg x2, MRI brain/c-spine: negative, vitamin B12 is very low normal with high normal MCV and anemia , B12 injections added daily 10/22. Can move to PO on d/c Folic acid WNL On the reason for the numbness could be because of neuropathy or a side effect from nebulizer treatment Explaining all of this about condition to daughter Madiha, she understand Atrial fibrillation/hypertension, stable, Continue amiodarone 100 mg daily, aspirin 81 mg daily, diltiazem extended release 180 mg daily INR was 1.0 upon admission, increased coumadin, today INR is 1.9 Discontinue bridge with lovenox because approaching 2 therapeutic because patient has nosebleeding briefly yesterday Anxiety with depression, Continue buspirone 15 mg p.o. 3 times daily, Remeron SolTab 30 mg p.o. at bedtime, trazodone 200 mg p.o. at bedtime, and venlafaxine XR 225 mg p.o. daily. Diabetes mellitus, blood glucose out of control because of steroid, which is better, adjusting Lantus dose, \hold metformin 500 mg p.o. daily, plans to increase to 1000mg QD on d/c Continue sliding-scale GERD Restless leg syndrome DVT ppx: on coumadin CODE STATUS: FULL CODE Disposition: From home, daughter lives with her. Possible return home with home health care moo Family meeting carried out in bedside with patient's two sisters, four daughter totally 10 people in bedside, went through all patient's medical conditions and care plan, patient need to have outpatient Endocrinology appointment to follow-up her diabetic condition, need to pulmonology follow-up appointment for her COPD chronic respiratory failure and obstructive sleep apnea , patient needs to have Glargine flex pen upon discharge for blood glucose control while she is on steroid... Answered all questions to the family Continued [facility] stay due to: home environment unsafe for pt Discharge planning: home
[2017-07-26] MEDS: WARFARIN SOD 4 MG TAB PO SCH (18:02)
[2017-07-26] MEDS: MIRTAZAPINE SOLTAB 15 MG PO SCH (20:59)
[2017-07-26] MEDS: TRAZODONE HCL 100 MG TAB PO SCH (20:59)
[2017-07-26] MEDS: PRAMIPEXOLE DIHYDROCHLORIDE 0.5 MG TAB PO SCH (20:59)
[2017-07-27] MEDS: LEVALBUTEROL 1.25MG/0.5ML NEB INH SCH ×3 (01:53→14:34)
[2017-07-27] MEDS: IPRATROPIUM BROMIDE NEB SOLN 0.02% 2.5 ML VIAL INH SCH ×3 (01:53→14:34)
[2017-07-27 01:54] VITALS: PULSE 84; O2SAT 94
[2017-07-27] MEDS: BUDESONIDE 0.5 MG/2 ML VIAL (PULMICORT) INH SCH (07:07)
[2017-07-27 07:10] VITALS: PULSE 82; O2SAT 94
[2017-07-27 07:41] VITALS: BP 114/51; PULSE 112; TEMP 36.2; O2SAT 99
[2017-07-27 07:43] LABS: HEMATOCRIT 37.1 % (37-47); HEMOGLOBIN 11.3 g/dL (12.0-16.0); MEAN CELL VOLUME 94.2 fL (80-100); MEAN CORPUSCULAR HEMOGLOBIN 28.7 pg (25-34); MEAN CORPUSCULAR HGB CONC 30.5 g/dl (32-36); MEAN PLATELET VOLUME 10.7 fL (7.4-10.4); NUCLEATED RED BLOOD CELL ABS 0.05 K/uL (0-0); PLATELET COUNT 164 K/uL (130-400); RED CELL DISTRIBUTION WIDTH SD 58.3 fL (36.4-46.3); WHITE BLOOD COUNT 7.69 K/uL (4.8-10.8)
[2017-07-27 08:27] LABS: CALCIUM 8.2 mg/dl (8.5-10.1); CREATININE 0.75 mg/dl (0.60-1.20); PHOSPHORUS 4.1 mg/dl (2.5-4.9)
[2017-07-27] MEDS: ATORVASTATIN 40 MG TAB PO SCH (08:58)
[2017-07-27] MEDS: VENLAFAXINE HCL XR 75 MG CAPXR PO SCH (08:58)
[2017-07-27] MEDS: NEPHROCAPS PO SCH (08:58)
[2017-07-27] MEDS: VENLAFAXINE HCL XR 150 MG CAPXR PO SCH (08:58)
[2017-07-27] MEDS: FLUTICASONE PROPIONATE NA SPR 16 GM BTL NAE SCH (08:58)
[2017-07-27] MEDS: ASPIRIN 81 MG ECTAB PO SCH (08:58)
[2017-07-27] MEDS: DILTIAZEM HCL (TIAzac) 180 MG CAPCR PO SCH (09:00)
[2017-07-27] MEDS: CYANOCOBALAMIN 1000 MCG/ML VIAL IM SCH (09:00)
[2017-07-27] MEDS: LISINOPRIL 5 MG TAB PO SCH (09:00)
[2017-07-27] MEDS: AMIODARONE 200 MG TAB PO SCH (09:00)
[2017-07-27] MEDS: FUROSEMIDE 20 MG TAB PO SCH (09:01)
[2017-07-27] MEDS: PANTOprazole SOD 40 MG TAB PO SCH (09:01)
[2017-07-27] MEDS: LACTOBACILLUS ACIDOPHILUS (FLORANEX) TAB PO SCH ×2 (09:01→13:09)
[2017-07-27] MEDS: CEPHALEXIN MONOHYDRATE 500 MG CAP PO SCH (09:02)
[2017-07-27] MEDS: BusPIRone 15 MG TAB PO SCH ×2 (09:02→13:09)
[2017-07-27 09:09] LABS: POTASSIUM 3.7 mmol/L (3.5-5.1)
[2017-07-27] MEDS: INSULIN ASPART 100 UNITS/ML 3 ML PEN SC SCH ×2 (09:09→13:28)
[2017-07-27] MEDS: INSULIN GLARGINE SOLOSTAR 100 UNITS/ML 3 ML PEN SC SCH (09:09)
[2017-07-27] MEDS ORDERED: LSN5 PO (09:59)
[2017-07-27] MEDS ORDERED: ATRINS INH (09:59)
[2017-07-27] MEDS ORDERED: INSU100I23 SQ (09:59)
[2017-07-27] MEDS ORDERED: XPNINS1255 INH (09:59)
[2017-07-27] MEDS ORDERED: CYAN500T13 PO (09:59)
[2017-07-27] MEDS ORDERED: PRD20 PO (09:59)
[2017-07-27] MEDS ORDERED: MRLP17X PO (09:59)
--- NOTE | 2017-07-27 10:01 | Discharge Instructions ---
Discharge Instructions Date of Service Jul 27, 2017. Admission Reason for Admission: Acute On Chronic Respiratory Failure, Cellulitis Discharge Discharge Diagnosis / Problem: Acute hypoxic respiratory failure on chronic respiratory failure Discharge Goals Goal(s): Decrease discomfort, Improve function, Increase independence, Improve disease control, Improve nutritional status, Learn about illness, Diagnostic testing, Therapeutic intervention, Prevent Disease Progression Activity Recommendations Activity Limitations: resume your previous activity . Instructions / Follow-Up Instructions / Follow-Up you have Acute hypoxic respiratory failure on chronic respiratory failure: stable improving, i am giving you taper the oral Prednisone over the next 10 days. you have complex sleep apnea, need to follow-up by our sleep team Dr. Arben gregory and/or Jessica Loza. your Oximetry study did have significant desaturation for approximately 1688 seconds/28 minutes less than 88% continuously. we are sending the you home on BiPAP with an IPAP of 14/EPAP 7 with 4 L nasal cannula administered supplementally. you have been on B12 injections , I giving you oral B12 to continue you have Atrial fibrillation/hypertension, you need to check INR on monday you have Diabetes mellitus, blood glucose out of control because of steroid, we are giving you Levemir for temperate using: Levemir need to be adjusted while per your blood glucose, and while on oral prednisone you need to check BG in the morning, you can use 20 unit SQ twice daily, need to only use 10 unit sq twice daily when your morning BG<140, stop Levenir medicine when your BG <140 , 2 days in the row Our case radhager is helping to setting up outpatient Endocrinology appointment to follow-up you diabetic condition,and pulmonology follow-up appointment for you COPD chronic respiratory failure and obstructive sleep apnea. - you need to follow up with your primary care physician in 1 week, - take medication as instructed, never overdose or any misuse, or take with alcohol, because misuse of medicine may cause organ damage or , call your primary care physician if have questions of medicaitons. - call your primary care physician OR go to local emergency room if has any fever/chill, chest pain, shortness of breathing, nausea/vomiting/abdominal pain , facial droop/slurry speech/local weakness, or if has any questions. - fall precaution - diet as instructed - you need to follow up with your subspecialist Current Hospital Diet Patient's current hospital diet: AHA Diet (Heart Healthy), Diabetes Type 2 Diet Discharge Diet Recommended Diet: Diabetes Type 2 Diet Procedures Procedures Performed: no Pending Studies Studies pending at discharge: no Laboratory Results Hemoglobin A1c Test 07/21/17 06:13 Range/Units Estimated Average Glucose 186 mg/dl Hemoglobin A1c 8.1 H 4.5-5.6 % Lipid Panel Test 06/09/17 06:02 Range/Units Triglycerides Level 120 0-150 mg/dl Cholesterol Level 127 0-200 mg/dl HDL Cholesterol 48 mg/dl Cholesterol/HDL Ratio 2.6 LDL Cholesterol, Calculated 55 mg/dl Medical Emergencies . Who to Call and When: Medical Emergencies: If at any time you feel your situation is an emergency, please call 911 immediately. . Non-Emergent Contact Non-Emergency issues call your: Primary Care Provider, [employer], Specialist (endo) . . "Provider Documentation" section prepared by Jh Harris. .
[2017-07-27] MEDS ORDERED: INSU32MI13 (10:09)
[2017-07-27] MEDS ORDERED: INSU3INJ3 SQ (10:09)
[2017-07-27 11:00] VITALS: BMI 45.2
[2017-07-27 12:19] VITALS: BP 114/51; TEMP 36.2; O2SAT 99
[2017-07-27 14:34] VITALS: PULSE 109; O2SAT 97
--- NOTE | 2017-07-27 14:51 | Discharge Summary ---
Discharge Summary Date of Service Jul 27, 2017. Discharge Summary Admission Date: Jul 20, 2017 at 00:23 Discharge Date: Jul 27, 2017 Principal Diagnosis: Acute hypoxic respiratory failure on chronic respiratory failure Problems/Secondary Diagnoses: complex sleep apnea, Atrial fibrillation/hypertension, Uncontrolled diabetes mellitus with hyperglycemia COPD chronic respiratory failure and obstructive sleep apnea. Immunizations: Have You Had Influenza Vaccine: Yes Influenza Vaccine Date: Apr 12, 2013 History of Tetanus Vaccine?: Unknown Tetanus Immunization Date: Nov 09, 2007 History of Pneumococcal: Yes Pneumococcal Date: Mar 10, 2011 History of Hepatitis B Vaccine: No Procedures: No Consultations: Behavioral Psychologist, Medication Reconciliation New Medications: Cyanocobalamin (Vitamin B12 500MCG) 500 Mcg Tab 1000 MCG PO DAILY for 30 Days, TAB Insulin Detemir (Levemir Flextouch) 100 Unit/Ml Inj 20 UNIT SQ BID for 10 Days this medicine need to be adjusted while per your blood glucose, and while on oral prednisone you need to check BG in the morning you can use 20 unit SQ twice daily need to only use 10 unit sq twice daily when yoru morning BG<140 stop this medicine when your BG <140 2 days in the row, Insulin Pen Needle (Bd Pen Needle/Sara/Ultra) 1 Mis Mis BOX, #1 Ipratropium [place] (Ipratropium [place]) 0.5 Mg/2.5 Ml Nebu 0.5 MG INH Q6R for 7 Days Levalbuterol (Levalbuterol) 1.25 Mg/0.5 Ml Nebu 1.25 MG INH Q6R for 7 Days Lisinopril (Lisinopril) 5 Mg Tab 5 MG PO QAM for 30 Days, TAB Polyethylene (Miralax) 17 Gm Pow 17 GM PO DAILY PRN for Constipation for 7 Days Prednisone (Prednisone) 20 Mg Tab 10 MG PO BID for 9 Days, TAB 20mg po daily for 3 days, then 10mg po daily for 3 days then 5 mg po daily for 3 days, then stop Continued Medications: Amiodarone Hcl (Amiodarone Hcl) 100 Mg Tab 100 MG PO DAILY Aspirin (Aspirin Ec) 81 Mg Tab 81 MG PO DAILY Atorvastatin (Lipitor) 80 Mg Tab 80 MG PO DAILY Budesonide (Inhalation) (Pulmicort Respules 0.25MG/2ML) 0.25 Mg/2 Ml Radha 0.25 MG NEB BID Buspirone HCl (Buspirone HCl) 15 Mg Tab 15 MG PO TID Diltiazem Hcl Ext Rel (Tiazac) 180 Mg Capcr 180 MG PO DAILY, CAP Fluticasone Furoate-Vilanterol (Breo Ellipta) 1 Inh Inh 1 PUFF INH DAILY Fluticasone Propionate (Nasal) (Flonase Allergy Relief) 50 Mcg/Act Spr 2 SPRAYS BUTCH DAILY Furosemide (Lasix) 20 Mg Tab 10 MG PO DAILY, TAB Lactobacillus (Floranex) 1 Tab Tab 1 TAB PO TIDM Magnesium Hydroxide (Milk Of Magnesia) 30 Ml Susp 30 ML PO Q12 PRN for Constipation, ML Metformin Hcl (Metformin Hcl Er) 500 Mg Tab 500 MG PO DAILYBD for 90 Days, TAB 3 Refills Mirtazapine Soltab (Remeron Soltab) 30 Mg Soltab 30 MG PO HS, TAB Omeprazole (Prilosec) 20 Mg Capcr 40 MG PO DAILY, CAP Pramipexole Dihydrochloride (Pramipexole Dihydrochlori) 0.5 Mg Tab 0.5 MG PO HS Trazodone HCl (Trazodone HCl) 100 Mg Tab 200 MG PO HS Venlafaxine Hcl (Effexor Extended Rel) 150 Mg Capcr 150 MG PO DAILY TAKE WITH 75MG = 225 MG TOTAL Venlafaxine Hcl (Effexor Extended Rel) 75 Mg Capcr 75 MG PO DAILY TAKE WITH 150 MG = 225MG TOTAL Vitamin B Cmplx/Vitc/Folic Ac (Nephrocaps) Cap 1 CAP PO DAILY, CAP Vitamin E (Vitamin E) 1,000 Unit Cap 1000 UNITS PO QAM Warfarin Sod (Coumadin) 2 Mg Tab 2 MG PO QDD Discharge Exam Doing well, up to the chair, eating some, oxygen level in the baseline, denies any tingling and numbness, Review of Systems: Constitutional: + weakness, + fatigue, No fever, No chills, No sweats, No weight loss, No problem reported Eyes: No worsening of vision, No eye pain, No redness, No discharge, No diplopia, No problem reported ENT: No hearing loss, No unusual epistaxis, No nasal symptoms, No sore throat, No tinnitus, No dental problems, No trouble swallowing, No problem reported Respiratory: + cough, + shortness of breath, No sputum, No wheezing, No dyspnea on exertion, No dyspnea at rest, No hemoptysis, No problem reported Cardiovascular: + edema (1+), No chest pain, No orthopnea, No PND, No claudication, No palpitations, No problem reported Abdomen: No pain, No nausea, No vomiting, No diarrhea, No constipation, No GI bleeding, No problem reported Genitourinary - Female: No dysuria, No urinary frequency, No urinary urgency , No urinary incontinence, No urinary retention, No hematuria, No dysmenorrhea, No menorrhagia, No metrorrhagia, No rash, No vaginal bleeding, No vaginal discharge, No vaginal itching, No vulvodynia, No , No problem reported Neurologic: No memory loss, No paralysis, No weakness, No numbness/tingling , No vertigo, No balance problems, No problem reported Psychiatric: No depression symptoms, No anhedonism, No anxiety, No insomnia , No substance abuse, No problem reported Endocrine: No fatigue, No excessive thirst, No excessive urination, No problem reported Hematologic / Lymphatic: No abnormal bleeding/bruising, No clotting problems , No swollen lymph nodes, No night sweats, No problem reported Integumentary: No rash, No itch, No new/changing skin lesions, No color change, No bleeding, No problem reported Physical Exam: General Appearance: WD/WN, + obese Eyes: normal inspection, EOMI ENT: normal ENT inspection, hearing grossly normal Neck: supple, no adenopathy, no carotid bruits, trachea midline Respiratory/Chest: chest non-tender, normal breath sounds, no respiratory distress, + decreased breath sounds Cardiovascular: regular rate, rhythm, no gallop, no JVD, no murmur, + pertinent finding (1+ edema) Abdomen / GI: normal bowel sounds, non tender, soft, no organomegaly, no pulsatile mass Extremities: normal inspection, no calf tenderness, normal capillary refill , no pedal edema, normal range of motion Neurologic/Psychiatric: 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, no motor/sensory deficits , alert, normal mood/affect, normal reflexes, oriented x 3 Skin: normal color, warm/dry Hospital Course 77 yo F with PMHx of chronic respiratory failure with chronic hypoxia, morbid obesity with BMI 44.4, likely obesity hypoventilation syndrome, LOGAN without cpap , claustrophobia, patient was admitted on July 20, 2017 because of cellulitis, and acute on chronic respiratory failure Acute hypoxic respiratory failure on chronic respiratory failure: stable improving, approach to patient baseline COPD Hypercapnia stable improved Hypoxia stable improved Likely obesity hypoventilation syndrome LOGAN, per daughter, does not use CPAP due to mask fitting issues, pulm saw pt, recs to taper the steroids over the next 14 days. has complex sleep apnea, need to follow-up by our sleep team Dr. Arben pradhan and/or Jessica Loza. lat night Oximetry study did have significant desaturation for approximately 1688 seconds/28 minutes less than 88% continuously. This combined with the patient is awake ABG of greater than 52 mins the standards for sending the patient home on BiPAP. RX given to CM with setting of BiPAP therapy of an IPAP of 14/EPAP 7 with 4 L nasal cannula administered supplementally. On BiPAP will be setting up Remote tobacco abuse hx - quit 8 years ago continue Duonebs to home Continue Pulmicort Respules, Flonase allergy relief, and have duonebs available q2hprn Bilateral lower extremity cellulitis-improving/resolved , was on vancomycin IV and Zosyn IV (07/19)--> keflex 500mg BID 9/10 days ddimer neg Blood cx neg Fleeting numbness upper extremities and lower extremities, totally resolved ESR neg x2, MRI brain/c-spine: negative, vitamin B12 is very low normal with high normal MCV and anemia , B12 injections added daily 10/22., has move to PO on d/c, Folic acid WNL On the reason for the numbness could be because of neuropathy or a side effect from nebulizer treatment Atrial fibrillation/hypertension, stable, Continue amiodarone 100 mg daily, aspirin 81 mg daily, diltiazem extended release 180 mg daily INR was 1.0 upon admission, increased coumadin, today INR is 1.9, continue home dose of Coumadin check INR on Monday with PCP Discontinue bridge with lovenox because approaching 2 therapeutic because patient has nosebleeding briefly yesterday Anxiety with depression, Continue buspirone 15 mg p.o. 3 times daily, Remeron SolTab 30 mg p.o. at bedtime, trazodone 200 mg p.o. at bedtime, and venlafaxine XR 225 mg p.o. daily. Diabetes mellitus, blood glucose out of control because of steroid, which is better, adjusting Lantus dose, Has been on given the Levemir to patient to home, details see below Continue sliding-scale GERD Restless leg syndrome DVT ppx: on coumadin CODE STATUS: FULL CODE Disposition: From home, daughter lives with her. Possible return home with home health care moo Family meeting carried out in bedside with patient's two sisters, four daughter totally 10 people in bedside, went through all patient's medical conditions and care plan, patient need to have outpatient Endocrinology appointment to follow-up her diabetic condition, need to pulmonology follow-up appointment for her COPD chronic respiratory failure and obstructive sleep apnea , patient needs to have Glargine flex pen upon discharge for blood glucose control while she is on steroid... Answered all questions to the family Instructions / Follow-Up you have Acute hypoxic respiratory failure on chronic respiratory failure: stable improving, i am giving you taper the oral Prednisone over the next 10 days. you have complex sleep apnea, need to follow-up by our sleep team Dr. Arben pradhan and/or Jessica Loza. your Oximetry study did have significant desaturation for approximately 1688 seconds/28 minutes less than 88% continuously. we are sending the you home on BiPAP with an IPAP of 14/EPAP 7 with 4 L nasal cannula administered supplementally. you have been on B12 injections , I giving you oral B12 to continue you have Atrial fibrillation/hypertension, you need to check INR on monday you have Diabetes mellitus, blood glucose out of control because of steroid, we are giving you Levemir for temperate using: Levemir need to be adjusted while per your blood glucose, and while on oral prednisone you need to check BG in the morning, you can use 20 unit SQ twice daily, need to only use 10 unit sq twice daily when your morning BG<140, stop Levenir medicine when your BG <140 , 2 days in the row Our case dequan is helping to setting up outpatient Endocrinology appointment to follow-up you diabetic condition,and pulmonology follow-up appointment for you COPD chronic respiratory failure and obstructive sleep apnea. - you need to follow up with your primary care physician in 1 week, - take medication as instructed, never overdose or any misuse, or take with alcohol, because misuse of medicine may cause organ damage or , call your primary care physician if have questions of medicaitons. - call your primary care physician OR go to local emergency room if has any fever/chill, chest pain, shortness of breathing, nausea/vomiting/abdominal pain , facial droop/slurry speech/local weakness, or if has any questions. - fall precaution - diet as instructed - you need to follow up with your subspecialist Total Time Spent: Greater than 30 minutes This includes examination of the patient, discharge planning, medication reconciliation, and communication with other providers. Discharge Instructions Please refer to the electronic Patient Visit Report (Discharge Instructions) for additional information. Additional Copies To Arben Pradhan DO; Ray Pereira III, JACINTA
--- NOTE | 2017-07-28 12:26 | EDITING REQUIRED CODING QUERY ---
PRESENT ON ADMISSION QUERY To promote full compliance with coding requirements relating to pateint care, physician participation is requested in all cases of forensic accountant uncertainty. Please assist us with the question(s) below: Please place an X within the parenthesis (x). The following diagnosis(es) listed in this patient's medical record require physician assistance to determine if they were present on admission (POA) or not. Please advise for each diagnosis whether it was present on admission, not present on admission, or if it was clinically undetermined. 1. Acute Hypoxic Respiratory Failure (documented in Progress Notes, Consults and DS) ( ) Present On Admission (x ) Not Present On Admission ( ) Clinically Undetermined 2. Obesity Hypoventilation Syndrome (documented in Progress Notes, Consults and DS) ( x) Present On Admission ( ) Not Present On Admission ( ) Clinically Undetermined Thank you Socorro Hamlin *Definition of the present on admission (POA)-Present on admission is defined as present at the time the order for inpatient admission occurs. Conditions that develop during an outpatient encounter prior to a written order for inpatient admission (including emergency department, observation, or outpatient surgery) are considered present on admission.
[2017-07-28] MEDS ORDERED: INSU100I23 SQ (13:53)
[2017-07-31 11:00] VITALS: Ht 160 cm; Wt 115.7 kg
== END 2017-07-27 16:00 | disposition home health service (06) | DRG 602 ==
LOC: EDBD 20:51 → C.EDB 20:52 → C.MED 07-20 00:23 → ENRESERV 07-20 00:43 → C.2E 07-21 13:45 → ENRESERV 07-25 14:46 → C.MS4W 07-25 16:05
PROVIDERS: ADMIT Hospitalist; ATTEND Hospitalist
DX: L03.115 Cellulitis of right lower limb (principal); J96.21 Acute and chronic respiratory failure with hypoxia; E66.2 Morbid (severe) obesity with alveolar hypoventilation; Z68.41 Body mass index [BMI] 40.0-44.9, adult; L03.116 Cellulitis of left lower limb; E11.65 Type 2 diabetes mellitus with hyperglycemia; T38.0X5A Adverse effect of glucocorticoids and synthetic analogues, initial encounter; R20.0 Anesthesia of skin; F40.240 Claustrophobia; J44.9 Chronic obstructive pulmonary disease, unspecified; I48.91 Unspecified atrial fibrillation; I11.9 Hypertensive heart disease without heart failure; F41.8 Other specified anxiety disorders; K21.9 Gastro-esophageal reflux disease without esophagitis; G25.81 Restless legs syndrome; Z51.81 Encounter for therapeutic drug level monitoring; Z79.899 Other long term (current) drug therapy; Z79.01 Long term (current) use of anticoagulants; Z79.82 Long term (current) use of aspirin; Z79.84 Long term (current) use of oral hypoglycemic drugs; Z99.81 Dependence on supplemental oxygen; Z91.19 Patient's noncompliance with other medical treatment and regimen; Z87.891 Personal history of nicotine dependence; Z88.5 Allergy status to narcotic agent; Z88.8 Allergy status to other drugs, medicaments and biological substances; Z91.018 Allergy to other foods; Z82.49 Family history of ischemic heart disease and other diseases of the circulatory system; Z80.3 Family history of malignant neoplasm of breast; Z80.7 Family history of other malignant neoplasms of lymphoid, hematopoietic and related tissues; Z83.3 Family history of diabetes mellitus

== ENCOUNTER → 2017-07-31 | Outpatient (CLI) | payer OTHER, MEDICARE ==
[~2017-07-31] MED LIST changes: +ATRINS INH; +CMD2 PO; +CYAN500T13 PO; -GLC500 PO; +INSU100I23 SQ; +INSU32MI13; +LSN5 PO; +METF1TAB85 PO; +MRLP17X PO; +PRD20 PO; +VITA10004 PO; -VITA1CRE PO; -WARF3TAB PO; +XPNINS1255 INH
[2017-07-31 16:58] LABS: INR 1.5 (0.9-1.1)
[2017-07-31 17:58] LABS: BLOOD UREA NITROGEN 19 mg/dl (7-18); CALCIUM 8.5 mg/dl (8.5-10.1); CARBON DIOXIDE 40 mmol/L (21-32); CREATININE 0.83 mg/dl (0.60-1.20); GLUCOSE 191 mg/dl (70-99); POTASSIUM 3.8 mmol/L (3.5-5.1); SODIUM 140 mmol/L (136-145)
== END | disposition home or self-care (01) ==
LOC: C.LABBFT 13:20
PROVIDERS: ATTEND Nurse Practitioner Family
DX: Z79.01 Long term (current) use of anticoagulants (principal); E11.9 Type 2 diabetes mellitus without complications

== ENCOUNTER → 2017-08-22 | Outpatient (CLI) | payer OTHER, MEDICARE ==
[~2017-08-22] MED LIST changes: +ATRINSX NEB; +B-COTAB18 PO; +FLUT1INH14 INH; +FURO80TA63 PO; +INSDGIPEN SC; +LISI-729 PO; +LSX/80 PO; +PANT40TA PO; +PRED20TA PO; +VTMB12 PO; +WARF3TAB6 PO
--- NOTE | 2017-08-23 05:29 | PAP/PSG TECHNICIAN REPORT ---
[facility] Marketing Database Coordinator Polysomnogram Report Study name: None Report date: 08/23/2017 Study date: 08/22/2017 Referring Physician: Jessica Sparks PA-C, PA-C Name: IKE WEAVER Interpreting Physician: Arben Pradhan D.O. Date of : 1940 Marketing Database Coordinator: [facility]. Sex: Female Age: 77 StudyType: PSG Weight: 245 lbs Height: 77 years, Height 5' 3" Neck Circum:16inches BMI: 43.4 Medications: Warfarin 2mg, Breo Ellipta 200-25mg, Budesonide 0.5mg/2ml, Ipratropium [place] 0.02% soln, Levalbuterol HCl 1.25mg/3ml, Oxygen 4LPM, Prednisone 10mg, Venlafaxine 150mg, Furosemide 20mg, Pantoprazole 40mg, Buspirone 15mg, Venlafaxine 75mg, Atorvastatin 80mg, Lisinopril 5mg, Mirtazapine 30mg, Trazadone 100mg, Amiodarone 200mg, Diltiazem CD 180mg, Pramipexole 0.5mg, ASA 81mg, Coumadin 3mg, Fluticasone 50mcg/act, Lantus 100unit/ml, Vit B, Vit E Patient History Study started on 4LPM O2 and BIPAP 04/19 (per order) 77 yr old female here tonight for a titration study. In 2017 she was admitted x4with acute respiratory failure hypoxic/hypercarbic in nature. She was discharged on BIPAP but has trouble tolerating it. She is also on 4LPM O2. She is here for pressure settings. ESS=04/04. Neck circ=16inches Parameters Monitored NPSG: E1-M2, E2-M1, Fp1-M2, Fp2-M1, F3-M2, F4-M2, F4-M1, C3-M2, C4-M2, C4-M1, O1-M2, O2-M2, O2-M1, T3-M2, T4-M1, P3-M2, P4-M1, CHIN1, CHIN2, HR, EKG, Legs, PFLOW, SNOR, FLOW, CFLOW, Tidal Volume, THOR, ABDO, SpO2, PLTH, CPRESS, ETCO2 Wave, ETCO2, pH Sleep Architecture Sleep Stages Time at Lights Off 10:10:40 PM STAGES Time (min.) TST (%) Time at Lights On 5:22:10 AM Wake 76.5 -- Total Recording Time (TRT) 429.00 min. N1 1.5 0 Total Sleep Period (TSP) 390.5 min. N2 197.5 56 Total Sleep Time (TST) 352.5min. N3 153.5 44 Awake Time 76.5 min. REM 0.0 0 Wake after Sleep Onset 40.5 min. Sleep Efficiency (SE) 82 % Sleep Onset Latency (RADHA) 38.5 min. Number of Stage 1 Shifts None Awakenings 14 Stage Changes 55 Number of REM periods N/A REM 0.0 0 REM Latency NONE min. NREM 352.5 100 Body Position Analysis Supine Right Left Side Prone Vertical Total Sleep Time (min.) 429.0 0.0 0.0 0.00 0.0 0.0 Total Sleep Time (%) 100% 0% 0% 0 0% N/A% Total Sleep Time REM (min.) 0.0 0.0 0.0 None 0.0 0.0 Total Sleep Time NREM (min.) 352.5 0.0 0.0 None 0.0 0.0 Intermittent Wake (min.) 76.5 0.0 0.0 None 0.0 0.0 Total Sleep Period (%) 100% None None None None None Arousals Myoclonus (PLM) * Events Count Index Events Count Index Spontaneous 9 2 Events Awake (PLMW) 147 115.3 Respiratory 2 0.3 Events Asleep w/ Arousal (PLMA) 34 5.8 PLM 31 6 Events Asleep w/o Arousal (PLMS) 911 155.1 Snoring 1 0 Total Asleep 945 160.9 Total 43 7 Total 1,092 153 Respiratory Analysis * CA OA MA CH H RERA Total Count 0 0 0 0 14 0 14 Index 0.0 0.0 0.0 0 2.4 0 2.4 Mean Duration 0.0 0.0 0.0 0.00 18.9 0.0 18.9 Longest Duration 0.0 0.0 0.0 0.00 0.0 0.0 27.0 Respiratory Event Summary Total Supine ~Supine Right Left Prone REM NREM Apneas Count 0 0 N/A N/A N/A N/A N/A 0 Index 0.0 0 N/A N/A N/A N/A N/A 0 Hypopneas (4% Desat) Count 14 14 N/A N/A N/A N/A N/A 14 Index 2.4 2.4 N/A N/A N/A N/A N/A 2.4 Apneas & All Hypopneas Count 14 14 N/A N/A N/A N/A N/A 14 Index 2.4 2 N/A N/A N/A N/A N/A 2.4 Respiratory Events (Program Director Air Talent+All Hyp+RERA) Count 14 14 N/A N/A N/A N/A N/A 14 Index 2.4 2 N/A N/A N/A N/A N/A 2.4 Respiratory Related Arousal Count 2 14 N/A N/A N/A N/A N/A 2 Index 0.3 0 N/A N/A N/A N/A N/A 0 Snoring Analysis Supine Right Left Prone REM NREM Total Snore duration 9.7 min Snores count 656 N/A N/A N/A N/A 656 656 Snore mean duration 0.9 Sec Snores index 112 N/A N/A N/A N/A 111.7 111.7 TST with snoring (%) 2.7% Desaturation Event Summary: Minimum %SpO2 Event Count Mean/Min/Max Duration(sec.) Desaturation Index % Time In Bed > 90 25 31.1 / 7.8 / 60.0 12.1 29.6 86 - 90 23 24.0 / 8.3 / 60.0 4.8 68.4 81 - 85 3 12.8 / 9.0 / 15.0 21.2 2.0 76 - 80 0 N/A 0.0 0.0 71 - 75 0 N/A 0.0 0.0 66 - 70 0 N/A 0.0 0.0 61 - 65 0 N/A 0.0 0.0 56 - 60 0 N/A 0.0 0.0 51 - 55 0 N/A 0.0 0.0 < 50 0 N/A 0.0 0.0 Total REM NREM Awake <50% 0.0 min. 0.0 min. 0.0 min. 0.0 min. 51 - 60% 0.0 min. 0.0 min. 0.0 min. 0.0 min. 61 - 70% 0.0 min. 0.0 min. 0.0 min. 0.0 min. 71 - 80% 0.0 min. 0.0 min. 0.0 min. 0.0 min. 81 - 90% 296.3 min. 0.0 min. 284.0 min. 12.3 min. 91 - 100% 124.4 min. 0.0 min. 68.5 min. 55.9 min. Average 89 0 89 92 Minimum SpO2 81 N/A 81 86 Desaturation Event Index 5.9 0.0 5.3 8.6 # Desat. Events below 89% 29 N/A 27 2 Time(%) with Saturation below 89% 39.5 0.0 38.6 0.8 Time(min.) with Saturation below 89% 166.0 0.0 162.5 3.5 Time (mins) REM (mins) NREM (mins) % of TST SpO2 Below 90% 31 N/A N31 65.7 SpO2 Below 88% 11 0 0 24 Heart Rate Analysis Min (bpm) Max (bpm) Average (bpm) Awake 75 97 83 NREM 64 90 79 REM N/A N/A N/A Overall 64 90 79 Supplemental O2 Values Minimum O2 level: None Value Start Time End Time Marketing Database Coordinator Comments Mrs. Weaver slept in the supine position with the head of her bed elevated.. Cardiac arrhythmia and PLM's were noted, please see print outs. Her legs moved the entire night. No bruxism noted. PAP initiated at an IPAP of +12 CMH2O and an EPAP of +6 CMH2O with 4LPM O2 and up-titrated to a level of: IPAP +00HIX8G, EPAP + 6CMH20 and 4LPM O2 (which is as high as we can go according to our oxygen titration policy). A small Quattro Air full face mask by [employer] was used during titration. She awoke to use the restroom 1 time during the night. She stated that she slept a little better than usual. The final report will be interpreted and signed by a sleep physician. The completed physician report will then be placed in the patient medical record. Therapy Event: Therapy (cm H20) 126 136 146 15/6 Total Time at Pressure (min.) 202.8 64.9 67.4 93.9 TST at Pressure (min.) 129.8 64.4 65.9 92.4 # Periods 1 1 1 1 Sleep Onset (min.) 38.5 0.0 0.0 0.0 REM Onset (min.) N/A N/A N/A N/A Sleep Efficiency % 64 99 97 98 Wakefulness (%) 36.0 0.8 2.2 1.6 Wakefulness (min.) 73.0 0.5 1.5 1.5 NREM 1 (%) 0.7 0.0 0.0 0.0 NREM 1 (min.) 1.5 0.0 0.0 0.0 NREM 2 (%) 34.8 58.0 69.6 45.2 NREM 2 (min.) 70.5 37.7 46.9 42.4 NREM 3 (%) 28.5 41.2 28.2 53.2 NREM 3 (min.) 57.8 26.7 19.0 50.0 REM (%) 0.0 0.0 0.0 0.0 REM (min.) 0.0 0.0 0.0 0.0 # Arousals 22 4 8 9 Arousal Index 10.2 3.7 7.3 5.8 # Snore 89 157 112 298 Snore Index 41.1 146.3 101.9 193.5 AHI 2.8 1.9 1.8 2.6 AHI Supine 2.8 1.9 1.8 2.6 AHI Non-Supine N/A N/A N/A N/A NREM AHI 2.8 1.9 1.8 2.6 REM AHI N/A N/A N/A N/A RDI 2.8 1.9 1.8 2.6 # Obstructive 0 0 0 0 # Central Ap 0 0 0 0 # Mixed 0 0 0 0 # Hypopneas 6 2 2 4 RERAS 0 0 0 0 Total Respiratory Events 6 2 2 4 Time Below SpO2 89.00% (min.) 16.6 51.8 37.4 56.6 Mean NREM SpO2 (%) 90 87 88 88 Mean REM SpO2 (%) N/A N/A N/A N/A Mean Sleep SpO2 (%) 90 87 88 88 Min NREM SpO2 (%) 86 84 83 81 Min REM SpO2 (%) N/A N/A N/A N/A Position Supine (min.) 129.8 64.4 65.9 92.4 Position Non-supine (min.) 0.0 0.0 0.0 0.0 LM Index Sleep 215.4 213.4 107.4 85.7 LM Index NREM 215.4 213.4 107.4 85.7 LM Index REM N/A N/A N/A N/A Mean Heart Rate (bpm) 81 80 77 77 Min Heart Rate (bpm) 70 69 64 64
--- NOTE | 2017-08-29 13:24 | POLYSOMNOGRAPH REPORT ---
CLINICAL DATA: The patient is a 77-year-old female who has a history of respiratory failure with hypoxia and hypercarbia. She had been hospitalized and was discharged on BiPAP. She has had trouble tolerating BiPAP. She is on 4 L of oxygen. She is referred for a BiPAP re-titration in light of her difficulty tolerating. SLEEP ARCHITECTURE: The total sleep period is 390.5 minutes. The total sleep time is 352.5 minutes. The sleep efficiency was mildly decreased at 82%. The sleep latency was prolonged at 38.5 minutes. Wake after sleep onset was 40.5 minutes. Sleep consisted of stage N1 of 0%, stage N2 of 56%, stage N3 of 44%, stage REM of 0%. AROUSAL DATA: The patient had 43 arousals including 9 spontaneous arousals, 2 respiratory arousals, 31 PLM arousals, and 1 snoring arousal. The arousal index is 7. PLM DATA: The patient had a total of 945 periodic limb movements of sleep. The PLM index was severely elevated at 160.9. There were 34 arousals associated with limb movements for a PLM arousal index of 5.8. EKG: The underlying cardiac rhythm was normal sinus. She had occasional PVCs. The cardiac rates ranged from 64 to 90 beats per minute with an average heart rate of 79 beats per minute. RESPIRATORY DATA: The patient's respiratory events were treated with BiPAP. She had a total of 14 respiratory events, all hypopneas. Hypopneas were scored according to the 4% desaturation rule. The mean duration of the hypopneas was 18.9 seconds. The apnea/hypopnea index was 2.4 events per hour. OXIMETRY DATA: The average saturation for the night was 89%. The minimum saturation was 81%. There was a total of 166 minutes with saturations less than 89%. It should be noted that the patient wore 4 L of oxygen throughout the study. [employer] COMMENTS: The patient slept in the supine position with the head of her bed elevated. Cardiac arrhythmia and PLMs were noted. Her legs moved the entire night. No bruxism noted. BiPAP was initiated with an IPAP of 12 and an EPAP of 6 with 4 L of oxygen. This was uptitrated to a level of BiPAP 15, EPAP 6 and 4 L. A small Quattro Air full face mask made by [employer] was utilized. She awakened to use the restroom one time during the night. She stated that she slept a little better than usual. IMPRESSION: 1. Obstructive sleep apnea. 2. Chronic respiratory failure. 3. Severe periodic limb movement disorder. 4. Cardiac arrhythmia -- PVCs. COMMENTS: The patient did reasonably well with this titration study. Her sleep efficiency was only mildly reduced. She had no REM sleep. It is noted that she is on venlafaxine, which may suppress REM sleep. Likewise, she is on mirtazapine, which can suppress REM. The patient had almost continuous limb movements. This is despite the fact she is taking pramipexole 0.5 mg at bedtime. It is unknown with certainty if she took it on the night of the study. Although she did not have any REM sleep, her sleep was overall fairly well consolidated. RECOMMENDATIONS: 1. It is advised that her BiPAP be set with IPAP 15 and EPAP 6. 2. It appears that she likely needs 5 L of oxygen into her BiPAP. 3. Weight loss is advised in light of the severe elevation of body mass index at 43.4. 4. Serum ferritin level is advised if it has not already been checked. 5. The patient should be questioned as to whether or not she took pramipexole on the night of the study. She may need a somewhat higher dose. Clinical correlation is advised. The limb movements may in part be precipitated by venlafaxine.
== END | disposition home or self-care (01) ==
LOC: C.NEUR 21:00
PROVIDERS: ATTEND Physician Assistant
DX: G47.33 Obstructive sleep apnea (adult) (pediatric) (principal); J44.9 Chronic obstructive pulmonary disease, unspecified; G47.31 Primary central sleep apnea

== ENCOUNTER 2017-08-26 16:07 | Emergency (ER) | payer OTHER, MEDICARE ==
[~2017-08-26 16:07] MED LIST changes: -ATRINSX NEB; -B-COTAB18 PO; -FLUT1INH14 INH; -FURO80TA63 PO; -INSDGIPEN SC; -LISI-729 PO; -LSX/80 PO; -PANT40TA PO; -PRED20TA PO; -VTMB12 PO; -WARF3TAB6 PO
[2017-08-26 16:12] VITALS: TEMP 37.2; Ht 160 cm
[2017-08-26] MEDS ORDERED: ALUMINUM/MAGNESIUM SUSP 30 ML UDC PO STA (16:39)
[2017-08-26 17:11] LABS: BASO % 0.5 %; BASO ABS # 0.04 K/uL (0-0.2); EOS % 1.8 %; EOS ABS # 0.13 K/uL (0-0.5); HEMATOCRIT 35.5 % (37-47); HEMOGLOBIN 10.7 g/dL (12.0-16.0); IG# 0.03 K/uL (0.00-0.02); LYMPH % 22.3 %; LYMPH ABS # 1.65 K/uL (1.2-3.4); MEAN CELL VOLUME 94.9 fL (80-100); MEAN CORPUSCULAR HEMOGLOBIN 28.6 pg (25-34); MEAN CORPUSCULAR HGB CONC 30.1 g/dl (32-36); MEAN PLATELET VOLUME 11.2 fL (7.4-10.4); MONO % 7.4 %; MONO ABS # 0.55 K/uL (0.11-0.59); NEUT % 67.6 %; NEUT ABS # 4.99 K/uL (1.4-6.5); PLATELET COUNT 209 K/uL (130-400); RED CELL DISTRIBUTION WIDTH CV 15.1 % (11.5-14.5); RED CELL DISTRIBUTION WIDTH SD 52.2 fL (36.4-46.3); WHITE BLOOD COUNT 7.39 K/uL (4.8-10.8)
[2017-08-26 17:33] LABS: INR 1.6 (0.9-1.1)
--- NOTE | 2017-08-26 17:34 | DIAGNOSTIC IMAGING REPORT ---
CHEST ONE VIEW PORTABLE HISTORY: Atypical chest pain COMPARISON: Chest 07/19/2017. FINDINGS: The lungs are clear. Cardiac silhouette is normal in size. No pleural effusions. No pneumothorax. IMPRESSION: No acute process. Electronically signed by: Jason Bosch M.D. 08/26/2017 5:33 PM Dictated Date/Time: 08/26/2017 5:32 PM
[2017-08-26 17:43] LABS: ALBUMIN 3.1 gm/dl (3.4-5.0); ALKALINE PHOSPHATASE 122 U/L (45-117); ALT/SGPT 23 U/L (12-78); AST/SGOT 22 U/L (15-37); BLOOD UREA NITROGEN 13 mg/dl (7-18); CALCIUM 8.9 mg/dl (8.5-10.1); CARBON DIOXIDE 41 mmol/L (21-32); CREATININE 1.02 mg/dl (0.60-1.20); GLUCOSE 195 mg/dl (70-99); POTASSIUM 3.7 mmol/L (3.5-5.1); SODIUM 139 mmol/L (136-145); TOTAL PROTEIN 6.9 gm/dl (6.4-8.2)
[2017-08-26] MEDS ORDERED: ALBUT/IPRATROP 3MG/0.5MG NEB 3 ML VIAL INH STA (18:22)
[2017-08-26] MEDS ORDERED: FURO80TA63 PO (18:29)
[2017-08-26] MEDS ORDERED: FLUT1INH14 INH (18:29)
[2017-08-26] MEDS ORDERED: WARF3TAB6 PO (18:29)
[2017-08-26] MEDS ORDERED: LISI-729 PO (18:29)
[2017-08-26] MEDS ORDERED: INSDGIPEN SC (18:29)
[2017-08-26] MEDS ORDERED: PANT40TA PO (18:29)
[2017-08-26] MEDS ORDERED: VTMB12 PO (18:29)
[2017-08-26] MEDS ORDERED: B-COTAB18 PO (18:29)
[2017-08-26] MEDS ORDERED: ATRINSX NEB (18:29)
[2017-08-26] MEDS ORDERED: METHYLPREDNISOLONE 125 MG VIAL IV STA (19:00)
[2017-08-26] MEDS ORDERED: WARFARIN SOD 5 MG TAB PO ONE (19:15)
[2017-08-26] MEDS ORDERED: SODIUM CHLORIDE 0.9% 500ML 500 ML IV STA (19:21)
[2017-08-26 20:43] VITALS: BP 129/56; PULSE 85; O2SAT 97
--- NOTE | 2017-08-26 20:45 | EMERGENCY ROOM VISIT NOTE ---
History Report prepared by Seth: Kerry Norton Under the Supervision of: Dr. Krista Lopez D.O. First contact with patient: 16:16 Chief Complaint: RESPIRATORY PROBLEMS Stated Complaint: TROUBLE BREATHING, HOT SPELLS, FATIGUE History of Present Illness The patient is a 77 year old female who presents to the Emergency Room with complaints of persistent chest pain starting this morning. The patient has been feeling SOB since this morning. She has been having hot spells where her body feels like it is burning up. She is getting burning in her chest with these spells which she has never had before. The pain does not radiate elsewhere. She has a history of heartburn, but states that this feels different. Her chest pain does not radiate anywhere. Her pain does not change with activity or position. She is coughing more. Her family notes she has been more fatigued for the past couple of days. She denies any chills, nausea, vomiting, or diarrhea. The patient has a history of COPD. She wears 4 L of oxygen at home and uses breathing treatments which help. She denies any change in food or medications. She is on a water pill, but states that she still has swelling in her ankles. She has a history of cellulitis in her legs. She notes that the warmer weather makes it harder for her to breathe. She denies any history of seasonal allergies. She has a history of atrial fibrillation and is on warfarin. She does not remember what her last INR was. She has not felt these symptoms with her A fib before. She has a history of anemia. Source of History: patient, family Onset: this morning Position: chest Quality: burning Timing: other (persistent) Associated Symptoms: + cough, + SOB, + fatigue, No chills, No nausea, No vomiting, No diarrhea Review of Systems See HPI for pertinent positives & negatives. A total of 10 systems reviewed and were otherwise negative. Past Medical & Surgical Medical Problems: (1) Acute and chronic respiratory failure with hypoxia (2) Acute on chronic respiratory failure (3) Cellulitis of both lower extremities (4) Diab Zoey Wo Compl, Type Ii Or Unspec Type, Not Uncntrld (5) Diverticulosis Colon (W/O Ment Of Hemorrhage) (6) Hyperlipidemia Nec/Nos (7) Hypertension Nos (8) Left lower lobe pneumonia (9) Obstr Chronic Bronchitis, W (Acute) Exacerbation (10) Paroxysmal a-fib (11) Pneumonia, Organism Nos (12) Pure Hypercholesterolem (13) Symptomatic anemia (14) Tubal Ligation Status Family History Diabetes mellitus FH: cancer (lymphoma, breast cancer) Hypertension Social History Smoking Status: Former Smoker Alcohol Use: none Drug Use: none Marital Status: Housing Status: lives with family Occupation Status: retired Current/Historical Medications Scheduled Amiodarone Hcl (Amiodarone Hcl), 100 MG PO DAILY Aspirin (Aspirin Ec), 81 MG PO DAILY Atorvastatin (Lipitor), 80 MG PO DAILY B-Complex Vitamins (Vitamin B Complex), 1 TAB PO DAILY Budesonide (Inhalation) (Pulmicort Respules 0.25MG/2ML), 0.25 MG NEB BID Buspirone HCl (Buspirone HCl), 15 MG PO TID Cyanocobalamin (Vitamin B-12), 1,000 MCG PO DAILY Diltiazem Hcl Ext Rel (Tiazac), 180 MG PO DAILY Fluticasone-Salmeterol (Airduo Respiclick 113/14 113-14 Mcg/Act), 1 PUFF INH DAILY Furosemide (Lasix), 80 MG PO DAILY Furosemide (Lasix), 1 TAB PO DAILY Insulin Glargine (Lantus Solostar), 25 UNITS SC QPM Ipratropium Una (Atrovent 0.02% Soln), 2.5 ML NEB Q6H Lisinopril (Zestril), 5 MG PO DAILY Mirtazapine Soltab (Remeron Soltab), 30 MG PO HS Pantoprazole (Protonix), 40 MG PO DAILY Pramipexole Dihydrochloride (Pramipexole Dihydrochlori), 0.5 MG PO HS Prednisone (Prednisone), 0 PO DAILY Trazodone HCl (Trazodone HCl), 200 MG PO HS Venlafaxine Hcl (Effexor Extended Rel), 150 MG PO DAILY Venlafaxine Hcl (Effexor Extended Rel), 75 MG PO DAILY Warfarin Sod (Jantoven), 3 MG PO DIRECTED Allergies Coded Allergies: Mushroom (Verified Allergy, Unknown, 07/19/17) Theophyllines (Verified Allergy, Unknown, Unknown, 07/19/17) Reported by daughter and listed in [facility] record. Codeine (Verified Adverse Reaction, Severe, HYPERVENTILATES, 07/19/17) Morphine (Verified Adverse Reaction, Severe, Causes Afib, 07/19/17) Physical Exam Vital Signs Date Time Temp Pulse Resp B/P (MAP) Pulse Ox O2 Delivery O2 Flow Rate FiO2 08/26/17 20:43 85 20 129/56 97 Nasal Cannula 4.0 08/26/17 20:15 80 08/26/17 20:11 67 20 124/50 98 Nasal Cannula 4.0 08/26/17 19:08 84 123/48 Nasal Cannula 4.0 96 102/72 98 131/90 08/26/17 18:12 86 18 126/54 99 Nasal Cannula 4.0 08/26/17 16:56 97 Nasal Cannula 4.0 08/26/17 16:40 92 08/26/17 16:12 37.2 97 20 127/64 90 Nasal Cannula 4.0 Physical Exam GENERAL: alert, well appearing, well nourished, no distress, non-toxic EYE EXAM: normal conjunctiva, PERRL and EOM's grossly intact OROPHARYNX: no exudate, no erythema, lips, buccal mucosa, and tongue normal and mucous membranes are moist NECK: supple, no nuchal rigidity, no adenopathy, non-tender LUNGS: Decreased breath sounds. No wheezes, rhonchi, rales. Normal chest wall mechanics HEART: no murmurs, S1 normal and S2 normal ABDOMEN: abdomen soft, non-tender, normo-active bowel sounds, no masses, no rebound or guarding. BACK: Back is symmetrical on inspection and there is no deformity, no midline tenderness, no CVA tenderness. SKIN: no rashes and no bruising, no petechiae UPPER EXTREMITIES: upper extremities are grossly normal. LOWER EXTREMITIES: Trace b/l pedal edema. FROM, nml pulses. No evidence of cellulitis. NEURO EXAM: Normal sensorium, cranial nerves II-XII grossly intact, normal speech, no gross weakness of arms, no gross weakness of legs. Medical Decision & Procedures ER Provider Diagnostic Interpretation: Radiology results have been interpreted by the radiologist and reviewed by me. CHEST ONE VIEW PORTABLE HISTORY: Atypical chest pain COMPARISON: Chest 07/19/2017. FINDINGS: The lungs are clear. Cardiac silhouette is normal in size. No pleural effusions. No pneumothorax. IMPRESSION: No acute process. Electronically signed by: Jason Bosch M.D. 08/26/2017 5:33 PM Dictated Date/Time: 08/26/2017 5:32 PM Laboratory Results 08/26/17 16:50 Red Blood Count 3.74, Mean Corpuscular Volume 94.9, Mean Corpuscular Hemoglobin 28.6, Mean Corpuscular Hemoglobin Concent 30.1, Mean Platelet Volume 11.2, Neutrophils (%) (Auto) 67.6, Lymphocytes (%) (Auto) 22.3, Monocytes (%) (Auto) 7.4, Eosinophils (%) (Auto) 1.8, Basophils (%) (Auto) 0.5, Neutrophils # (Auto) 4.99, Lymphocytes # (Auto) 1.65, Monocytes # (Auto) 0.55, Eosinophils # (Auto) 0.13, Basophils # (Auto) 0.04 08/26/17 16:50 Test 08/26/17 16:50 08/26/17 16:54 White Blood Count 7.39 K/uL (4.8-10.8) Red Blood Count 3.74 M/uL (4.2-5.4) Hemoglobin 10.7 g/dL (12.0-16.0) Hematocrit 35.5 % (37-47) Mean Corpuscular Volume 94.9 fL (80-100) Mean Corpuscular Hemoglobin 28.6 pg (25-34) Mean Corpuscular Hemoglobin Concent 30.1 g/dl (32-36) Platelet Count 209 K/uL (130-400) Mean Platelet Volume 11.2 fL (7.4-10.4) Neutrophils (%) (Auto) 67.6 % Lymphocytes (%) (Auto) 22.3 % Monocytes (%) (Auto) 7.4 % Eosinophils (%) (Auto) 1.8 % Basophils (%) (Auto) 0.5 % Neutrophils # (Auto) 4.99 K/uL (1.4-6.5) Lymphocytes # (Auto) 1.65 K/uL (1.2-3.4) Monocytes # (Auto) 0.55 K/uL (0.11-0.59) Eosinophils # (Auto) 0.13 K/uL (0-0.5) Basophils # (Auto) 0.04 K/uL (0-0.2) RDW Standard Deviation 52.2 fL (36.4-46.3) RDW Coefficient of Variation 15.1 % (11.5-14.5) Immature Granulocyte % (Auto) 0.4 % Immature Granulocyte # (Auto) 0.03 K/uL (0.00-0.02) Prothrombin Time 16.7 SECONDS (9.0-12.0) Prothromb Time International Ratio 1.6 (0.9-1.1) D-Dimer 230 ug/L FEU (0-500) Anion Gap 4.0 mmol/L (3-11) Estimated GFR () 62.3 Estimated GFR (Non- 53.8 BUN/Creatinine Ratio 12.9 (10-20) Calcium Level 8.9 mg/dl (8.5-10.1) Magnesium Level 2.1 mg/dl (1.8-2.4) Total Bilirubin 0.3 mg/dl (0.2-1) Aspartate Amino Transf (AST/SGOT) 22 U/L (15-37) Alanine Aminotransferase (ALT/SGPT) 23 U/L (12-78) Alkaline Phosphatase 122 U/L (45-117) Troponin I < 0.015 ng/ml (0-0.045) Pro-B-Type Natriuretic Peptide 129 pg/ml (0-900) Total Protein 6.9 gm/dl (6.4-8.2) Albumin 3.1 gm/dl (3.4-5.0) Globulin 3.8 gm/dl (2.5-4.0) Albumin/Globulin Ratio 0.8 (0.9-2) Urine Color YELLOW Urine Appearance CLEAR (CLEAR) Urine pH 7.5 (4.5-7.5) Urine Specific [place] 1.009 (1.000-1.030) Urine Protein NEG (NEG) Urine Glucose (UA) NEG (NEG) Urine Ketones NEG (NEG) Urine Occult Blood NEG (NEG) Urine Nitrite NEG (NEG) Urine Bilirubin NEG (NEG) Urine Urobilinogen NEG (NEG) Urine Leukocyte Esterase NEG (NEG) Laboratory results per my review. Medications Administered Medications (Trade) Dose Ordered Sig/Buddy Route Start Time Stop Time Status Last Admin Dose Admin Al Hydroxide/Mg Hydroxide (Maalox Susp) 30 ml NOW STAT PO 08/26/17 16:39 4/14/18 16:41 DC 08/26/17 16:56 30 ML Albuterol/ Ipratropium (Duoneb) 3 ml NOW STAT INH 08/26/17 18:22 08/26/17 18:23 DC 08/26/17 18:38 3 ML Methylprednisolone Sodium Succinate (Solu-Medrol IV) 80 mg NOW STAT IV 08/26/17 19:00 08/26/17 19:02 DC 08/26/17 19:09 80 MG Warfarin Sodium (Coumadin Tab) 5 mg NOW ONCE PO 08/26/17 19:15 08/26/17 19:16 DC 08/26/17 19:22 5 MG Sodium Chloride 500 ml @ 999 mls/hr Q31M STAT IV 08/26/17 19:21 08/26/17 19:51 DC 08/26/17 19:30 999 MLS/HR ECG Per My Interpretation Indication: SOB/dyspnea Rate (beats per minute): 91 Rhythm: sinus rhythm Findings: Q waves (lead 3, aVF), no acute ischemic change, prolonged QT, no ectopy, other (normal axis) ED Course 161: The patient was evaluated in room C11B. A complete history and physical exam was performed. 163: Maalox Susp 30 ml PO. 1816: Reviewed EMR. No acute abnormality found on recent MRI brain and carotid US. Echo from May 2017 shows EF 65-70%, hyperdynamic systolic function, dilated left atrium, moderate mitral stenosis. 1817: I reevaluated the patient. I updated her on the results. 182: Duoneb 3 ml INH. 1899: Solu-Medrol IV 80 mg IV. 1914: Coumadin Tab 5 mg PO. 1920: Sodium Chloride 500 ml @ 999 mls/hr IV. 2029: I reevaluated the patient. I updated the patient and her family. I answered all their questions. They verbalized agreement of the treatment plan. She was discharged home. Medical Decision Differential diagnoses includes but is not limited to acute coronary syndrome, myocardial infarction, pericarditis, pulmonary embolus, aortic dissection, pneumonia, pneumothorax, musculoskeletal, shingles, esophageal. Patient well-appearing here despite complaints. Vital signs stable. No evidence of anemia, H&H consistent with prior episodes. Elevated serum bicarbonate consistent with prior levels also likely secondary to her COPD. Patient has not noticed a change in her sputum, still feels relief with her breathing treatments, has not needed to increase the amount of oxygen she is on daily. Patient's minimal lower extremity edema worse compared to prior and does not appear to be cellulitic. Patient's INR mildly subtherapeutic, however I do not suspect PE. Patient was given an extra dose of Coumadin here and advised that she needs to continue her usual Coumadin dosing and follow closely to have the INR rechecked the beginning of the week. Patient well-appearing here throughout. I do not suspect occult infectious etiology such as bacteremia /sepsis, no significant leukocytosis or fever and no infiltrate seen on chest x- ray. Patient reported prior history of worsening shortness of breath during times of weather change and does have seasonal allergy. I feel given otherwise reassuring evaluation here likely she is having some exacerbation of her COPD secondary to the drastic weather swings and likely allergy season. I do not suspect ACS, negative troponin after >8 hours of symptoms and no chest pain. Patient was started on steroids that she states these have previously helped to resolve her symptoms. I do not feel patient requires antibiotics at this time. Patient instructed to follow closely with her family doctor, discussed symptoms to watch and return for, she verbalized understanding was agreeable with plan. Medication Reconcilliation Current Medication List: was personally reviewed by me Blood Pressure Screening Patient's blood pressure: Normal blood pressure Blood pressure disposition: Did not require urgent referral Impression Primary Impression: Dyspnea Additional Impressions: COPD exacerbation Fatigue Scribe Attestation The scribe's documentation has been prepared under my direction and personally reviewed by me in its entirety. I confirm that the note above accurately reflects all work, treatment, procedures, and medical decision making performed by me. Departure Information Dispostion Home / Self-Care Prescriptions Furosemide (Lasix) 80 Mg Tab 1 TAB PO DAILY, #10 TAB Prov: Krista Lopez, 08/26/17 Prednisone (Prednisone) 20 Mg Tab 0 PO DAILY for 9 Days, TAB 3 TABS DAILY FOR 3 DAYS, THEN 2 TABS DAILY FOR 3 DAYS, THEN 1 TAB DAILY FOR 3 DAYS. Prov: Krista Lopez, 08/26/17 Referrals Ray Pereira III, CRNP (PCP) Patient Instructions My [facility] Additional Instructions Please continue your regular medications as prescribed including your blood center. Please have your INR rechecked the beginning of the week. Your INR tonight was 1.6. Discontinue wearing her home oxygen and using her breathing treatments regularly. You may use your breathing treatment up to every 4 hours as needed. Please take the steroids as prescribed. If you have any worsening trouble breathing, noticed worsening cough, develop fevers or chills, chest pain , vomiting, abdominal pain, dizziness, or unable to walk, or you have any other new concerns, please return the emergency room. Problem Qualifiers Primary Impression: Dyspnea Dyspnea type: shortness of breath Qualified Codes: R06.02 - Shortness of breath Additional Impressions: Fatigue Fatigue type: unspecified Qualified Codes: R53.83 - Other fatigue
[2017-08-26] MEDS ORDERED: PRED20TA PO (20:48)
[2017-08-26] MEDS ORDERED: LSX/80 PO (20:57)
== END 2017-08-26 20:55 | disposition home or self-care (01) ==
LOC: C.EDB 16:08 → C.EDC 20:55
DX: J44.1 Chronic obstructive pulmonary disease with (acute) exacerbation (principal); R53.83 Other fatigue; R60.0 Localized edema; J30.2 Other seasonal allergic rhinitis; Z99.81 Dependence on supplemental oxygen; J96.21 Acute and chronic respiratory failure with hypoxia; E11.9 Type 2 diabetes mellitus without complications; Z79.4 Long term (current) use of insulin; K57.90 Diverticulosis of intestine, part unspecified, without perforation or abscess without bleeding; E78.5 Hyperlipidemia, unspecified; I10 Essential (primary) hypertension; I48.0 Paroxysmal atrial fibrillation; E78.00 Pure hypercholesterolemia, unspecified; Z87.891 Personal history of nicotine dependence; Z79.82 Long term (current) use of aspirin; Z79.01 Long term (current) use of anticoagulants; Z91.018 Allergy to other foods; Z88.8 Allergy status to other drugs, medicaments and biological substances; Z88.6 Allergy status to analgesic agent

== ENCOUNTER → 2017-08-29 | Outpatient (CLI) | payer OTHER, MEDICARE ==
[~2017-08-29] MED LIST changes: -ATRINS INH; +ATRINSX NEB; -B-CO1CAP17 PO; +B-COTAB18 PO; -CMD2 PO; -CYAN500T13 PO; +DILT180C PO; -FLUT0.15 NAE; -FLUT1INH INH; +FLUT1INH14 INH; -FURO-85 PO; +FURO80TA63 PO; +INSDGIPEN SC; +INSU100I2 SC; -INSU100I23 SQ; -INSU32MI13; -LACT1TAB4 PO; +LISI-729 PO; +LSX/80 PO; +LSX40 PO; -METF1TAB85 PO; +MIRT30TA3 PO; -MOML PO; -MRLP17X PO; +PANT40TA PO; +PANT40TA2 PO; +PRAM1TAB10 PO; -PRD20 PO; +PRED20TA PO; -PRLSR20 PO; -VITA10004 PO; +VTMB12 PO; +WARF3TAB6 PO; -XPNINS1255 INH
[2017-08-29 16:52] LABS: INR 2.7 (0.9-1.1)
== END | disposition home or self-care (01) ==
LOC: C.LABBFT 12:50
PROVIDERS: ATTEND Nurse Practitioner Family
DX: I48.0 Paroxysmal atrial fibrillation (principal)

== ENCOUNTER 2017-09-05 14:41 | Inpatient (IN) | payer OTHER, MEDICARE ==
[~2017-09-05] VITALS: Ht 167.6 cm; Wt 112.3 kg
[~2017-09-05 14:41] MED LIST changes: -AMIO0.1T PO; -ASPI81TA28 PO; -ATOR-26 PO; -ATRINSX NEB; -B-COTAB18 PO; -BUDE0.253 NEB; -DILT180C PO; -DSY100 PO; -EFFSR150 PO; -FLUT1INH14 INH; -INSDGIPEN SC; -INSU100I2 SC; -LSN5 PO; -LSX40 PO; -MIRT30TA3 PO; -PANT40TA2 PO; -PRAM1TAB10 PO; -VTMB12 PO; -WARF3TAB6 PO
[2017-09-05 15:37] LABS: BASO % 0.2 %; BASO ABS # 0.02 K/uL (0-0.2); EOS % 1.5 %; EOS ABS # 0.16 K/uL (0-0.5); HEMATOCRIT 33.4 % (37-47); HEMOGLOBIN 10.1 g/dL (12.0-16.0); IG# 0.03 K/uL (0.00-0.02); LYMPH % 12.2 %; LYMPH ABS # 1.26 K/uL (1.2-3.4); MEAN CELL VOLUME 96.3 fL (80-100); MEAN CORPUSCULAR HEMOGLOBIN 29.1 pg (25-34); MEAN CORPUSCULAR HGB CONC 30.2 g/dl (32-36); MEAN PLATELET VOLUME 10.9 fL (7.4-10.4); MONO ABS # 0.73 K/uL (0.11-0.59); NEUT % 78.8 %; NEUT ABS # 8.16 K/uL (1.4-6.5); NUCLEATED RED BLOOD CELL ABS 0.03 K/uL (0-0); PLATELET COUNT 190 K/uL (130-400); RED CELL DISTRIBUTION WIDTH CV 15.1 % (11.5-14.5); RED CELL DISTRIBUTION WIDTH SD 52.7 fL (36.4-46.3); WHITE BLOOD COUNT 10.36 K/uL (4.8-10.8)
[2017-09-05] MEDS ORDERED: METHYLPREDNISOLONE 125 MG VIAL IV STA (15:39)
[2017-09-05] MEDS ORDERED: ALBUT/IPRATROP 3MG/0.5MG NEB 3 ML VIAL INH STA ×2 (15:39→16:03)
--- NOTE | 2017-09-05 15:41 | DIAGNOSTIC IMAGING REPORT ---
CHEST ONE VIEW PORTABLE CLINICAL HISTORY: EVALUATE WEAKNESS COMPARISON STUDY: Chest radiograph August 26, 2017. FINDINGS: Lung volumes are normal. No pneumothorax or pleural effusion is present. Cardiomediastinal silhouette is stable. There is mitral annular calcification. There is no evidence for overt pulmonary edema. IMPRESSION: No acute cardiopulmonary findings. Electronically signed by: Marco Mccall M.D. 09/05/2017 3:40 PM Dictated Date/Time: 09/05/2017 3:39 PM
[2017-09-05 15:47] LABS: INR 2.6 (0.9-1.1); PTT PATIENT 39.2 SECONDS (21.0-31.0)
[2017-09-05] MEDS ORDERED: CEFTRIAXONE SOD INJ 1 GM ADDVIAL IV STA (16:04)
--- NOTE | 2017-09-05 16:06 | EMERGENCY ROOM VISIT NOTE ---
History Report prepared by Seth: Carlita Carey Under the Supervision of: Dr. Mark Abad M.D. First contact with patient: 14:53 Chief Complaint: SHORTNESS OF BREATH Stated Complaint: SOB,FATIGUE,COUGH, INCREASED HEART RATE History of Present Illness The patient is a 77 year old female who presents to the Emergency Room with complaints of worsening shortness of breath beginning yesterday. The patient wears 4 L of oxygen at baseline. The patient has a history of COPD and asthma. She reports this feels different than her normal COPD flare up. She notes a cough, nausea, chills, and abdominal bloating. The patient reports she just got off of prednisone on Monday for her breathing difficulties. She has been using nebulizer treatments which she states has given her temporarily relief. Pt denies LOC, headache, fevers, diaphoresis, visual changes, neck pain, chest pain , vomiting, back pain, melena, hematochezia, urinary symptoms, numbness, weakness, lymphadenopathy, rash, or other complaints. Source of History: patient Onset: yesterday Position: other (generalized) Quality: other (shortness of breath) Timing: worsening Modifying Factors (Relieving): other (nebulizer) Associated Symptoms: + chills, + cough, + SOB, + nausea, + abdominal pain Review of Systems See HPI for pertinent positives and negatives. A total of ten systems were reviewed and were otherwise negative. Past Medical & Surgical Medical Problems: (1) Acute and chronic respiratory failure with hypoxia (2) Acute on chronic respiratory failure (3) Cellulitis of both lower extremities (4) Diab Zoey Wo Compl, Type Ii Or Unspec Type, Not Uncntrld (5) Diverticulosis Colon (W/O Ment Of Hemorrhage) (6) Hyperlipidemia Nec/Nos (7) Hypertension Nos (8) Left lower lobe pneumonia (9) Obstr Chronic Bronchitis, W (Acute) Exacerbation (10) Paroxysmal a-fib (11) Pneumonia, Organism Nos (12) Pure Hypercholesterolem (13) Symptomatic anemia (14) Tubal Ligation Status Family History Diabetes mellitus FH: cancer (lymphoma, breast cancer) Hypertension Social History Smoking Status: Former Smoker Alcohol Use: none Drug Use: none Marital Status: Housing Status: lives with family Occupation Status: retired Current/Historical Medications Scheduled Amiodarone Hcl (Amiodarone Hcl), 100 MG PO DAILY Aspirin (Aspirin Ec), 81 MG PO DAILY Atorvastatin (Lipitor), 80 MG PO DAILY B-Complex Vitamins (Vitamin B Complex), 1 TAB PO DAILY Budesonide (Inhalation) (Pulmicort Respules 0.25MG/2ML), 0.25 MG NEB BID Buspirone HCl (Buspirone HCl), 15 MG PO TID Cyanocobalamin (Vitamin B-12), 1,000 MCG PO DAILY Diltiazem Hcl Coated Beads (Diltiazem Hcl Er), 180 MG PO DAILY Fluticasone-Salmeterol (Airduo Respiclick 113/14 113-14 Mcg/Act), 1 PUFF INH DAILY Furosemide (Furosemide), 40 MG PO QAM Insulin Glargine (Lantus Solostar), 25 UNITS SC QPM Insulin Lispro (Human) (Humalog Kwikpen), 1 DOSE SC ACHS Ipratropium Anabel (Atrovent 0.02% Soln), 2.5 ML NEB Q6H Lisinopril (Lisinopril), 5 MG PO QAM Mirtazapine (Remeron), 30 MG PO HS Pantoprazole (Pantoprazole Sodium), 40 MG PO QAM Pramipexole Dihydrochloride (Pramipexole Dihydrochlori), 1 MG PO HS Trazodone HCl (Trazodone HCl), 200 MG PO HS Venlafaxine Hcl (Effexor Extended Rel), 150 MG PO DAILY Venlafaxine Hcl (Effexor Extended Rel), 75 MG PO DAILY Warfarin Sod (Jantoven), 3 MG PO DAILY Allergies Coded Allergies: Mushroom (Verified Allergy, Unknown, 07/19/17) Theophyllines (Verified Allergy, Unknown, Unknown, 07/19/17) Reported by daughter and listed in [facility] record. Codeine (Verified Adverse Reaction, Severe, HYPERVENTILATES, 07/19/17) Morphine (Verified Adverse Reaction, Severe, Causes Afib, 07/19/17) Physical Exam Vital Signs Date Time Temp Pulse Resp B/P (MAP) Pulse Ox O2 Delivery O2 Flow Rate FiO2 09/05/17 19:07 100 18 127/75 97 Nasal Cannula 4.0 09/05/17 18:12 99 25 136/64 99 Nasal Cannula 4.0 09/05/17 16:41 91 24 150/67 100 Nasal Cannula 4.0 09/05/17 16:02 94 16 156/64 93 Nasal Cannula 4.0 09/05/17 15:31 96 09/05/17 15:07 94 Nasal Cannula 5.0 09/05/17 15:04 97 Nasal Cannula 6.0 09/05/17 15:04 97 Nasal Cannula 6.0 09/05/17 14:48 36.7 97 20 121/73 82 Nasal Cannula 4.0 Physical Exam GENERAL: Awake, alert, mildly dyspneic-appearing, in no distress HENT: Normocephalic, atraumatic. Oropharynx unremarkable. EYES: Normal conjunctiva. Sclera non-icteric. NECK: Supple. No nuchal rigidity. FROM. No masses. RESPIRATORY: Wheezing bilaterally. No rales. Normal respiratory effort. CARDIAC: Normal rate. Normal rhythm. No murmurs. No rubs. Extremities warm and well perfused. Pulses equal. No JVD. GI: Soft, non-distended. No tenderness to palpation. No rebound or guarding. No masses. RECTAL: Deferred. MUSCULOSKELETAL: Atraumatic. Chest examination reveals no tenderness. The back is symmetrical on inspection without obvious abnormality. There is no CVA tenderness to palpation. No joint edema. LOWER EXTREMITIES: Calves are equal size bilaterally and non-tender. 1+ lower extremity edema. No discoloration. NEURO: Normal sensorium. No sensory or motor deficits noted. SKIN: No rash or jaundice noted. Medical Decision & Procedures ER Provider Diagnostic Interpretation: Radiology results as stated below per my review and radiologist interpretation: CHEST ONE VIEW PORTABLE FINDINGS: Lung volumes are normal. No pneumothorax or pleural effusion is present. Cardiomediastinal silhouette is stable. There is mitral annular calcification. There is no evidence for overt pulmonary edema. IMPRESSION: No acute cardiopulmonary findings. Electronically signed by: Marco Mccall M.D. Laboratory Results 09/05/17 15:20 Red Blood Count 3.47, Mean Corpuscular Volume 96.3, Mean Corpuscular Hemoglobin 29.1, Mean Corpuscular Hemoglobin Concent 30.2, Mean Platelet Volume 10.9, Neutrophils (%) (Auto) 78.8, Lymphocytes (%) (Auto) 12.2, Monocytes (%) (Auto) 7.0, Eosinophils (%) (Auto) 1.5, Basophils (%) (Auto) 0.2, Neutrophils # (Auto) 8.16, Lymphocytes # (Auto) 1.26, Monocytes # (Auto) 0.73, Eosinophils # (Auto) 0.16, Basophils # (Auto) 0.02 09/05/17 15:20 Test 09/05/17 15:20 09/05/17 15:35 White Blood Count 10.36 K/uL (4.8-10.8) Red Blood Count 3.47 M/uL (4.2-5.4) Hemoglobin 10.1 g/dL (12.0-16.0) Hematocrit 33.4 % (37-47) Mean Corpuscular Volume 96.3 fL (80-100) Mean Corpuscular Hemoglobin 29.1 pg (25-34) Mean Corpuscular Hemoglobin Concent 30.2 g/dl (32-36) Platelet Count 190 K/uL (130-400) Mean Platelet Volume 10.9 fL (7.4-10.4) Neutrophils (%) (Auto) 78.8 % Lymphocytes (%) (Auto) 12.2 % Monocytes (%) (Auto) 7.0 % Eosinophils (%) (Auto) 1.5 % Basophils (%) (Auto) 0.2 % Neutrophils # (Auto) 8.16 K/uL (1.4-6.5) Lymphocytes # (Auto) 1.26 K/uL (1.2-3.4) Monocytes # (Auto) 0.73 K/uL (0.11-0.59) Eosinophils # (Auto) 0.16 K/uL (0-0.5) Basophils # (Auto) 0.02 K/uL (0-0.2) RDW Standard Deviation 52.7 fL (36.4-46.3) RDW Coefficient of Variation 15.1 % (11.5-14.5) Immature Granulocyte % (Auto) 0.3 % Immature Granulocyte # (Auto) 0.03 K/uL (0.00-0.02) Nucleated RBC Absolute Count (auto) 0.03 K/uL (0-0) Nucleated Red Blood Cells % 0.3 % Prothrombin Time 26.9 SECONDS (9.0-12.0) Prothromb Time International Ratio 2.6 (0.9-1.1) Activated Partial Thromboplast Time 39.2 SECONDS (21.0-31.0) Partial Thromboplastin Ratio 1.5 Urine Color YELLOW Urine Appearance CLEAR (CLEAR) Urine pH 6.5 (4.5-7.5) Urine Specific Bryant 1.024 (1.000-1.030) Urine Protein NEG (NEG) Urine Glucose (UA) 1+ (NEG) Urine Ketones NEG (NEG) Urine Occult Blood 1+ (NEG) Urine Nitrite NEG (NEG) Urine Bilirubin NEG (NEG) Urine Urobilinogen NEG (NEG) Urine Leukocyte Esterase SMALL (NEG) Urine WBC (Auto) 10-30 /hpf (0-5) Urine RBC (Auto) 10-30 /hpf (0-4) Urine Hyaline Casts (Auto) 1-5 /lpf (0-5) Urine Epithelial Cells (Auto) 10-20 /lpf (0-5) Urine Bacteria (Auto) 2+ (NEG) Anion Gap -1.0 mmol/L (3-11) Est Creatinine Clear Calc Drug Dose 64.7 ml/min Estimated GFR () 74.5 Estimated GFR (Non- 64.3 BUN/Creatinine Ratio 18.7 (10-20) Calcium Level 8.5 mg/dl (8.5-10.1) Magnesium Level 2.2 mg/dl (1.8-2.4) Total Bilirubin 0.2 mg/dl (0.2-1) Direct Bilirubin < 0.1 mg/dl (0-0.2) Aspartate Amino Transf (AST/SGOT) 16 U/L (15-37) Alanine Aminotransferase (ALT/SGPT) 25 U/L (12-78) Alkaline Phosphatase 117 U/L (45-117) Total Creatine Kinase 54 U/L (26-192) Creatine Kinase MB 2.7 ng/ml (0.5-3.6) Creatine Kinase MB Ratio 5.0 (0-3.0) Troponin I < 0.015 ng/ml (0-0.045) Pro-B-Type Natriuretic Peptide 485 pg/ml (0-900) Total Protein 6.5 gm/dl (6.4-8.2) Albumin 2.7 gm/dl (3.4-5.0) Lipase 98 U/L (73-393) Thyroid Stimulating Hormone (TSH) 1.460 uIu/ml (0.300-4.500) Influenza Type A Antigen Neg for Influ A (NEG) Influenza Type B Antigen Neg for Influ B (NEG) Laboratory results reviewed by me Medications Administered Medications (Trade) Dose Ordered Sig/Buddy Route Start Time Stop Time Status Last Admin Dose Admin Albuterol/ Ipratropium (Duoneb) 3 ml NOW STAT INH 09/05/17 15:39 09/05/17 15:40 DC 09/05/17 15:47 3 ML Methylprednisolone Sodium Succinate (Solu-Medrol IV) 125 mg NOW STAT IV 09/05/17 15:39 09/05/17 15:40 DC 09/05/17 15:47 125 MG Albuterol/ Ipratropium (Duoneb) 3 ml NOW STAT INH 09/05/17 16:03 09/05/17 16:04 DC 09/05/17 16:44 3 ML Ceftriaxone Sodium (Rocephin Inj) 1 gm NOW STAT IV 09/05/17 16:04 09/05/17 16:05 DC 09/05/17 16:44 1 GM Azithromycin (Zithromax Tab) 500 mg NOW ONCE PO 09/05/17 19:30 09/05/17 19:49 DC 09/05/17 20:59 500 MG ECG Per My Interpretation Indication: SOB/dyspnea Rate (beats per minute): 96 Rhythm: normal sinus Findings: Q waves (Inferior), no acute ischemic change, no ectopy, other (non specific ST) ED Course 1457: The patient was evaluated in room B12B. A complete history and physical exam was performed. 1539: Ordered Solu-Medrol IV 125 mg IV, Duoneb 3 ml INH. 1603: Ordered Duoneb 3 ml INH. 1604: Ordered Rocephin Inj 1 gm IV. 1621: I updated the patient on her test results. The patient is feeling better. She is agreeable to the treatment plan. 1655: Discussed the patient's case with Dr. Bianca Fatima-[facility] [place]. The patient will be evaluated for further treatment and disposition. Medical Decision Prior records/ancillary studies reviewed. Triage Nursing notes reviewed and agree them. Additional history obtained from the family. The patient's history was concerning for shortness of breath. Differential diagnosis: Etiologies such as pneumonia, COPD, reactive airway disease, CHF, cardiac ischemia, pulmonary embolism, pneumothorax, musculoskeletal, infections, gastrointestinal, as well as others were entertained. Physical examination: As above. Wheezing. Hypoxia. ER treatment provided: Supplemental oxygen DuoNeb 2 IV Solu-Medrol On reassessment the patient felt better. IV Rocephin Diagnostic interpretation by me: The electrocardiogram was negative for pathologic change. The labs revealed an unremarkable CBC. INR therapeutic. The patient has a UTI. Blood and urine cultures pending. Imaging studies: Chest x-ray as above. Consultation: A consultation was placed with the hospitalist. The case was discussed and diagnostics were reviewed. The patient was evaluated in the ER for further treatment. Medication Reconcilliation Current Medication List: was personally reviewed by me Blood Pressure Screening Patient's blood pressure: Elevated blood pressure Blood pressure disposition: Referred to PCP (referred to hospitalist) Consults Time Called: 1630 Consulting Physician: Dr. Bianca Fatima-[facility] Returned Call: [phone] Discussed the patient's case. The patient will be evaluated for further treatment and disposition. Impression Primary Impression: COPD exacerbation Additional Impression: UTI (urinary tract infection) Scribe Attestation The scribe's documentation has been prepared under my direction and personally reviewed by me in its entirety. I confirm that the note above accurately reflects all work, treatment, procedures, and medical decision making performed by me. Departure Information Dispostion Being Evaluated By Hospitalist Referrals Ray Pereira III, CRNP (PCP) Patient Instructions My [facility] Problem Qualifiers
[2017-09-05 16:13] LABS: ALBUMIN 2.7 gm/dl (3.4-5.0); ALT/SGPT 25 U/L (12-78); AST/SGOT 16 U/L (15-37); BLOOD UREA NITROGEN 16 mg/dl (7-18); CALCIUM 8.5 mg/dl (8.5-10.1); CARBON DIOXIDE 43 mmol/L (21-32); CREATININE 0.88 mg/dl (0.60-1.20); GLUCOSE 128 mg/dl (70-99); LIPASE 98 U/L (73-393); POTASSIUM 3.5 mmol/L (3.5-5.1); SODIUM 137 mmol/L (136-145)
[2017-09-05] MEDS ORDERED: LSX40 PO (16:14)
[2017-09-05] MEDS ORDERED: INSU100I2 SC (16:14)
[2017-09-05] MEDS ORDERED: PRAM1TAB10 PO (16:14)
[2017-09-05] MEDS ORDERED: DILT180C PO (16:14)
[2017-09-05] MEDS ORDERED: PANT40TA2 PO (16:14)
[2017-09-05] MEDS ORDERED: LSN5 PO (16:14)
[2017-09-05] MEDS ORDERED: MIRT30TA3 PO (16:14)
[2017-09-05 16:17] LABS: ALKALINE PHOSPHATASE 117 U/L (45-117); CKMB 2.7 ng/ml (0.5-3.6); TOTAL PROTEIN 6.5 gm/dl (6.4-8.2)
[2017-09-05 16:23] LABS: INFLUENZA B ANTIGEN Neg for Influ B (NEG)
[2017-09-05] MEDS ORDERED: DSY100 PO (16:46)
[2017-09-05] MEDS ORDERED: ATOR-26 PO (16:46)
[2017-09-05] MEDS ORDERED: ASPI81TA28 PO (17:37)
[2017-09-05] MEDS ORDERED: BUDE0.253 NEB (17:40)
[2017-09-05] MEDS ORDERED: WARF3TAB6 PO (18:29)
[2017-09-05] MEDS ORDERED: B-COTAB18 PO (18:29)
[2017-09-05] MEDS ORDERED: INSDGIPEN SC (18:29)
[2017-09-05] MEDS ORDERED: VTMB12 PO (18:29)
[2017-09-05] MEDS ORDERED: FLUT1INH14 INH (18:29)
[2017-09-05] MEDS ORDERED: ATRINSX NEB (18:29)
[2017-09-05] MEDS ORDERED: AZITHROMYCIN 250 MG TAB PO ONE (19:30)
[2017-09-05] MEDS ORDERED: ONDANSETRON INJ 2 MG/ML 2 ML VIAL IV PRN (19:45)
[2017-09-05] MEDS ORDERED: ALUMINUM/MAGNESIUM/SIMETH (MAALOX MAX) 30 ML UDC PO PRN (19:45)
[2017-09-05] MEDS ORDERED: GLUCOSE 40% GEL 15 GM TUBE PO PRN (19:45)
[2017-09-05] MEDS ORDERED: GLUCAGON FOR INJ 1 MG VIAL SQ PRN (19:45)
[2017-09-05] MEDS ORDERED: MAGNESIUM HYDROXIDE SUSP 30 ML UDC PO PRN (19:45)
[2017-09-05] MEDS ORDERED: POLYETHYLENE (MIRALAX) 17 GM PACK PO PRN (19:45)
[2017-09-05] MEDS ORDERED: ZOLPIDEM TARTRATE 5 MG TAB PO PRN ×2 (19:45)
[2017-09-05] MEDS ORDERED: DEXTROSE 50% 50 ML SYR IV PRN (19:45)
--- NOTE | 2017-09-05 20:08 | History and Physical ---
History & Physical Date & Time of Service: Sep 05, 2017 at 19:41 Chief Complaint: Sob,Fatigue,Cough, Increased Heart Rate Primary Care Physician: Ray Pereira III, CRNP History of Present Illness Source: patient, hospital records 77 years old female with past medical history of atrial fibrillation on amiodarone/Coumadin/Cardizem COPD, chronic respiratory failure on 4 L of oxygen at home, diabetes mellitus insulin requiring, anxiety, obstructive sleep apnea on BiPAP, morbid obesity and restless leg syndrome. Presented to the emergency room with increased oxygen requirement and significant shortness of breath. Yesterday patient developed severe shortness of breath and started taking her nebulizer machine more frequently without any relief of her symptoms. She also had a productive cough with yellowish mucus. Denies any fever but admits to some chills and diaphoresis. Presented to the ED today and was found to have acute on chronic respiratory failure hypoxic/hypercapnic. Her oxygen supplement was increased to 8 L of oxygen to maintain oxygen saturation above 90. Patient received bronchodilators without noticeable improvement. She will be admitted for further evaluation. Chest x-ray did not show any pneumonia rather chronic fibrotic changes. Past Medical/Surgical History Medical Problems: (1) Acute and chronic respiratory failure with hypoxia (2) Acute CVA (cerebrovascular accident) (3) Acute on chronic respiratory failure (4) Acute on chronic respiratory failure with hypoxia and hypercapnia (5) Acute parotitis (6) afib with rvr (7) Anemia (8) Anemia (9) Anemia (10) Anemia (11) Anxiety (12) Atrial fibrillation with rapid ventricular response (13) Bronchitis (14) Cellulitis (15) Cellulitis of both lower extremities (16) Chest pain (17) COPD exacerbation (18) COPD with exacerbation (19) CVA (cerebral infarction) (20) Diab Zoey Wo Compl, Type Ii Or Unspec Type, Not Uncntrld (21) Diverticulosis Colon (W/O Ment Of Hemorrhage) (22) Dysphagia (23) Dyspnea (24) Emphysema of lung (25) Epistaxis (26) Fatigue (27) GI bleed (28) GI bleed (29) Hyperlipidemia Nec/Nos (30) Hypertension Nos (31) Hypokalemia (32) Hypotension (33) Hypoxia (34) Left lower lobe pneumonia (35) Leg pain, right (36) Obstr Chronic Bronchitis, W (Acute) Exacerbation (37) Paroxysmal a-fib (38) PNA (pneumonia) (39) Pneumonia (40) Pneumonia (41) Pneumonia involving right lung (42) Pneumonia, Organism Nos (43) Pure Hypercholesterolem (44) Respiratory failure (45) Sepsis (46) SOB (shortness of breath) (47) Symptomatic anemia (48) TIA (transient ischemic attack) (49) Tubal Ligation Status (50) Vomiting and diarrhea (51) Vomiting and diarrhea (52) Weakness (53) Weakness Family History Diabetes mellitus FH: cancer (lymphoma, breast cancer) Hypertension Social History Smoking Status: Former Smoker Drug Use: none Marital Status: Housing status: lives with family Occupational Status: retired Immunizations History of Influenza Vaccine: Yes Influenza Vaccine Date: Apr 12, 2013 History of Tetanus Vaccine?: Unknown Tetanus Immunization Date: Nov 09, 2007 History of Pneumococcal: Yes Pneumococcal Date: Mar 10, 2011 History of Hepatitis B Vaccine: No Allergies Coded Allergies: Mushroom (Verified Allergy, Unknown, 07/19/17) Theophyllines (Verified Allergy, Unknown, Unknown, 07/19/17) Reported by daughter and [facility]. Codeine (Verified Adverse Reaction, Severe, HYPERVENTILATES, 07/19/17) Morphine (Verified Adverse Reaction, Severe, Causes Afib, 07/19/17) Home Medications Scheduled Amiodarone Hcl (Amiodarone Hcl), 100 MG PO DAILY Aspirin (Aspirin Ec), 81 MG PO DAILY Atorvastatin (Lipitor), 80 MG PO DAILY B-Complex Vitamins (Vitamin B Complex), 1 TAB PO DAILY Budesonide (Inhalation) (Pulmicort Respules 0.25MG/2ML), 0.25 MG NEB BID Buspirone HCl (Buspirone HCl), 15 MG PO TID Cyanocobalamin (Vitamin B-12), 1,000 MCG PO DAILY Diltiazem Hcl Coated Beads (Diltiazem Hcl Er), 180 MG PO DAILY Fluticasone-Salmeterol (Airduo Respiclick 113/14 113-14 Mcg/Act), 1 PUFF INH DAILY Furosemide (Furosemide), 40 MG PO QAM Insulin Glargine (Lantus Solostar), 25 UNITS SC QPM Insulin Lispro (Human) (Humalog Kwikpen), 1 DOSE SC ACHS Ipratropium [place] (Atrovent 0.02% Soln), 2.5 ML NEB Q6H Lisinopril (Lisinopril), 5 MG PO QAM Mirtazapine (Remeron), 30 MG PO HS Pantoprazole (Pantoprazole Sodium), 40 MG PO QAM Pramipexole Dihydrochloride (Pramipexole Dihydrochlori), 1 MG PO HS Trazodone HCl (Trazodone HCl), 200 MG PO HS Venlafaxine Hcl (Effexor Extended Rel), 150 MG PO DAILY Venlafaxine Hcl (Effexor Extended Rel), 75 MG PO DAILY Warfarin Sod (Jantoven), 3 MG PO DAILY Review of Systems Review of system Constitutional: No fever /positive for and chills and sweats / no weakness / also has fatigue Eyes: no blurring of vision / no eye pain / no discharge / no redness ENT: no hearing loss / no epistaxis /no swallowing problems Respiratory:productive cough, SOB and wheezing no hemoptysis Cardiovascular: no Chest pain / no lower extremity edema / no palpitation Abdomen: no pain / no nausea / no vomiting / no constipation Musculoskeletal: no joint pain / no muscle pain / no joint swelling Genitourinary: no dysuria / no incontinence / no urinary retention Neurologic: no focal weakness / no numbness/tingling / no ataxia Psychiatric: no depression symptoms / no anxiety / no insomnia Endocrine: no excessive thirst / no excessive urination Hematologic: no abnormal bleeding / no bruising / no LN swelling Skin: No rash / no pallor Physical Exam Vital Signs Date Time Temp Pulse Resp B/P (MAP) Pulse Ox O2 Delivery O2 Flow Rate FiO2 09/05/17 19:07 100 18 127/75 97 Nasal Cannula 4.0 09/05/17 18:12 99 25 136/64 99 Nasal Cannula 4.0 09/05/17 16:41 91 24 150/67 100 Nasal Cannula 4.0 09/05/17 16:02 94 16 156/64 93 Nasal Cannula 4.0 09/05/17 15:31 96 09/05/17 15:07 94 Nasal Cannula 5.0 09/05/17 15:04 97 Nasal Cannula 6.0 09/05/17 15:04 97 Nasal Cannula 6.0 09/05/17 14:48 36.7 97 20 121/73 82 Nasal Cannula 4.0 Physical examination General patient appears to be comfortable, not in acute distress (she was examined after multiple rounds of bronchodilators) HEENT: Atraumatic , normocephalic /no jaundice /no pallor /anicteric /no dry mucous membrane /normal external ear inspection Neck: Supple /no swelling /central trach Heart: S1/S2 irregular irregularity, rate and rhythm/no gallop /no rub /no murmur Lungs: Decreased air entry bilaterally, positive for wheezing/no use of accessory muscles of respiration Abdomen: Soft/nontender/no guarding/no rebound/no organomegaly/no pulsatile mass Musculoskeletal: No swelling/no edema/no tenderness/normal range of motion Neuro exam: Awake alert oriented 3/cranial nerves II through XII appear to be intact/sensation intact/moves all extremities/no abnormal movements Psychiatric evaluation: No depressed mood/normal affect Skin: No rash on exposed skin area/no erythema Extremity: Normal pulse/no pitting edema/no clubbing or cyanosis Endocrine/lymphatic: No obvious lymphadenopathy /no lymphedema Diagnostics Laboratory Results Results Past 24 Hours Test 09/05/17 15:20 09/05/17 15:35 Range/Units White Blood Count 10.36 4.8-10.8 K/uL Red Blood Count 3.47 4.2-5.4 M/uL Hemoglobin 10.1 12.0-16.0 g/dL Hematocrit 33.4 37-47 % Mean Corpuscular Volume 96.3 80-100 fL Mean Corpuscular Hemoglobin 29.1 25-34 pg Mean Corpuscular Hemoglobin Concent 30.2 32-36 g/dl Platelet Count 190 130-400 K/uL Mean Platelet Volume 10.9 7.4-10.4 fL Neutrophils (%) (Auto) 78.8 % Lymphocytes (%) (Auto) 12.2 % Monocytes (%) (Auto) 7.0 % Eosinophils (%) (Auto) 1.5 % Basophils (%) (Auto) 0.2 % Neutrophils # (Auto) 8.16 1.4-6.5 K/uL Lymphocytes # (Auto) 1.26 1.2-3.4 K/uL Monocytes # (Auto) 0.73 0.11-0.59 K/uL Eosinophils # (Auto) 0.16 0-0.5 K/uL Basophils # (Auto) 0.02 0-0.2 K/uL RDW Standard Deviation 52.7 36.4-46.3 fL RDW Coefficient of Variation 15.1 11.5-14.5 % Immature Granulocyte % (Auto) 0.3 % Immature Granulocyte # (Auto) 0.03 0.00-0.02 K/uL Nucleated RBC Absolute Count (auto) 0.03 0-0 K/uL Nucleated Red Blood Cells % 0.3 % Prothrombin Time 26.9 9.0-12.0 SECONDS Prothromb Time International Ratio 2.6 0.9-1.1 Activated Partial Thromboplast Time 39.2 21.0-31.0 SECONDS Partial Thromboplastin Ratio 1.5 Urine Color YELLOW Urine Appearance CLEAR CLEAR Urine pH 6.5 4.5-7.5 Urine Specific [place] 1.024 1.000-1.030 Urine Protein NEG NEG Urine Glucose (UA) 1+ NEG Urine Ketones NEG NEG Urine Occult Blood 1+ NEG Urine Nitrite NEG NEG Urine Bilirubin NEG NEG Urine Urobilinogen NEG NEG Urine Leukocyte Esterase SMALL NEG Urine WBC (Auto) 10-30 0-5 /hpf Urine RBC (Auto) 10-30 0-4 /hpf Urine Hyaline Casts (Auto) 1-5 0-5 /lpf Urine Epithelial Cells (Auto) 10-20 0-5 /lpf Urine Bacteria (Auto) 2+ NEG Sodium Level 137 136-145 mmol/L Potassium Level 3.5 3.5-5.1 mmol/L Chloride Level 96 98-107 mmol/L Carbon Dioxide Level 43 21-32 mmol/L Anion Gap -1.0 3-11 mmol/L Blood Urea Nitrogen 16 7-18 mg/dl Creatinine 0.88 0.60-1.20 mg/dl Est Creatinine Clear Calc Drug Dose 64.7 ml/min Estimated GFR () 74.5 Estimated GFR (Non- 64.3 BUN/Creatinine Ratio 18.7 10-20 Random Glucose 128 70-99 mg/dl Calcium Level 8.5 8.5-10.1 mg/dl Magnesium Level 2.2 1.8-2.4 mg/dl Total Bilirubin 0.2 0.2-1 mg/dl Direct Bilirubin < 0.1 0-0.2 mg/dl Aspartate Amino Transf (AST/SGOT) 16 15-37 U/L Alanine Aminotransferase (ALT/SGPT) 25 12-78 U/L Alkaline Phosphatase 117 45-117 U/L Total Creatine Kinase 54 26-192 U/L Creatine Kinase MB 2.7 0.5-3.6 ng/ml Creatine Kinase MB Ratio 5.0 0-3.0 Troponin I < 0.015 0-0.045 ng/ml Pro-B-Type Natriuretic Peptide 485 0-900 pg/ml Total Protein 6.5 6.4-8.2 gm/dl Albumin 2.7 3.4-5.0 gm/dl Lipase 98 73-393 U/L Thyroid Stimulating Hormone (TSH) 1.460 0.300-4.500 uIu/ml Influenza Type A Antigen Neg for Influ A NEG Influenza Type B Antigen Neg for Influ B NEG Microbiology Results 09/05/17 Blood Culture, Received Pending 09/05/17 Blood Culture, Received Pending 09/05/17 Urine Culture, Received Pending Diagnostic Radiology CHEST ONE VIEW PORTABLE CLINICAL HISTORY: EVALUATE WEAKNESS COMPARISON STUDY: Chest radiograph August 26, 2017. FINDINGS: Lung volumes are normal. No pneumothorax or pleural effusion is present. Cardiomediastinal silhouette is stable. There is mitral annular calcification. There is no evidence for overt pulmonary edema. IMPRESSION: No acute cardiopulmonary findings. Electronically signed by: Marco Mccall M.D. 09/05/2017 3:40 PM Dictated Date/Time: 09/05/2017 3:39 PM The status of this report is Signed. Draft = Not yet reviewed or approved by Radiologist. Signed = Reviewed and approved by Radiologist. <AttendingPhy></AttendingPhy> <FamilyPhy>Ray Pereira III, JACINTA</FamilyPhy> < PrimaryPhy>Ray Pereira III, JACINTA</PrimaryPhy> <UnitNumber>[id number]</ UnitNumber> <VisitNumber>[id number]</VisitNumber Impression Assessment and Plan 77 years old female with past medical history of atrial fibrillation on amiodarone/Coumadin/Cardizem COPD, chronic respiratory failure on 4 L of oxygen at home, diabetes mellitus insulin requiring, anxiety, obstructive sleep apnea on BiPAP, morbid obesity and restless leg syndrome acute on chronic hypoxic respiratory failure and COPD exacerbation. also has dysphagia to solids/liquids. Assessment acute on chronic hypoxic/hypercapnic respiratory failure COPD exacerbation Bronchitis Atrial fibrillation on amiodarone/Coumadin/Cardizem Complex obstructive sleep apnea on BiPAP Obesity hypoventilation syndrome Morbid obesity Diabetes mellitus insulin requiring Anxiety Restless leg syndrome Plan Admit patient to telemetry Start patient on bronchodilators, albuterol/Atrovent 0.63 inhalation nebulizer 4 times daily Start patient on steroids, Solu-Medrol 60 mg IV every 6 hours Chest imaging reviewed, showed no active pneumonia but likely bacterial bronchitis EKG reviewed, minimal QTc prolongation, , will start patient on azithromycin 500 mg orally daily for bronchitis, which will have also anti-inflammatory benefit for COPD, please follow up QTc every few days. Add probiotic for C. difficile prevention Pulmonary consultation if no improvement as needed PPI for GI prophylaxis, dysphagia could be reflux or thrush from steroids inhalers, started nystatin swish and swallow and ordered continue protonix , she was instructed to follow up on her dysphagia with PCP, giving her current lung status, no intervention likely to be done continue insulin SQ and add SSI continue coumadin, check INR in am continue amiodarone , although maybe should consider stopping it in the future giving her pulmonary status continue Diltiazem. order BIPAP at night Heparin subcu for DVT prophylaxis Patient will need pulmonary function test in 6 weeks after resolution Resuscitation Status VTE Prophylaxis Will order VTE Prophylaxis: Yes
[2017-09-05 20:22] VITALS: BP 163/82; PULSE 101; TEMP 36.7; O2SAT 94
[2017-09-05] MEDS ORDERED: EFFSR150 PO (20:32)
[2017-09-05 20:45] VITALS: PULSE 98; O2SAT 96
[2017-09-05] MEDS: BUDESONIDE 0.25 MG/2 ML VIAL (PULMICORT) INH SCH (20:45)
[2017-09-05] MEDS: IPRATROPIUM BROMIDE NEB SOLN 0.02% 2.5 ML VIAL INH SCH (20:45)
[2017-09-05 20:57] VITALS: BP 145/75; PULSE 99; TEMP 37; O2SAT 97; BMI 38.0
[2017-09-05] MEDS ORDERED: AMIO0.1T PO (20:59)
[2017-09-05] MEDS: WARFARIN SOD 3 MG TAB PO SCH (21:00)
[2017-09-05] MEDS: TRAZODONE HCL 100 MG TAB PO SCH (21:01)
[2017-09-05] MEDS: NYSTATIN SUSP 500,000 U/5 ML UDC PO SCH (21:02)
[2017-09-05] MEDS: BusPIRone 15 MG TAB PO SCH (21:02)
[2017-09-05] MEDS: MIRTAZAPINE TAB 15 MG TAB PO SCH (21:02)
[2017-09-05] MEDS: INSULIN GLARGINE SOLOSTAR 100 UNITS/ML 3 ML PEN SC SCH (21:42)
[2017-09-05] MEDS: INSULIN ASPART 100 UNITS/ML 3 ML PEN SC SCH (21:43)
[2017-09-05] MEDS: METHYLPREDNISOLONE IV 60 MG in SYRINGE 0 ML IV SCH (21:44)
[2017-09-05] MEDS ORDERED: NURSING DECISION MEDICATION ORDER SCH (23:45)
[2017-09-05 23:51] VITALS: BP 131/70; PULSE 95; TEMP 36.6; O2SAT 96
[2017-09-06] VITALS (12 sets, daily range): BP systolic 121–184; BP diastolic 56–92; PULSE 86–113; TEMP 36.6–36.9; O2SAT 93–99
[2017-09-06] MEDS: IPRATROPIUM BROMIDE NEB SOLN 0.02% 2.5 ML VIAL INH SCH ×4 (01:49→19:07)
[2017-09-06] MEDS: METHYLPREDNISOLONE IV 60 MG in SYRINGE 0 ML IV SCH ×4 (04:04→23:40)
[2017-09-06] MEDS: BUDESONIDE 0.25 MG/2 ML VIAL (PULMICORT) INH SCH (06:52)
[2017-09-06 07:04] LABS: BASO % 0.1 %; BASO ABS # 0.01 K/uL (0-0.2); HEMATOCRIT 35.3 % (37-47); HEMOGLOBIN 10.6 g/dL (12.0-16.0); IG# 0.05 K/uL (0.00-0.02); LYMPH % 5.3 %; LYMPH ABS # 0.59 K/uL (1.2-3.4); MEAN CELL VOLUME 95.9 fL (80-100); MEAN CORPUSCULAR HEMOGLOBIN 28.8 pg (25-34); MEAN PLATELET VOLUME 10.5 fL (7.4-10.4); MONO % 1.2 %; MONO ABS # 0.13 K/uL (0.11-0.59); NEUT ABS # 10.37 K/uL (1.4-6.5); PLATELET COUNT 195 K/uL (130-400); RED CELL DISTRIBUTION WIDTH SD 52.3 fL (36.4-46.3); WHITE BLOOD COUNT 11.15 K/uL (4.8-10.8)
[2017-09-06 07:14] LABS: INR 2.4 (0.9-1.1)
[2017-09-06 07:39] LABS: ALBUMIN 2.8 gm/dl (3.4-5.0); CALCIUM 8.8 mg/dl (8.5-10.1); CREATININE 0.77 mg/dl (0.60-1.20); TOTAL PROTEIN 6.6 gm/dl (6.4-8.2)
[2017-09-06 07:41] LABS: POTASSIUM 4.5 mmol/L (3.5-5.1)
[2017-09-06] MEDS: LACTOBACILLUS ACIDOPHILUS (FLORANEX) TAB PO SCH ×3 (07:57→17:44)
[2017-09-06] MEDS: VENLAFAXINE HCL XR 150 MG CAPXR PO SCH (07:58)
[2017-09-06] MEDS: DILTIAZEM HCL 180 MG CAPCR PO SCH (07:58)
[2017-09-06] MEDS: NYSTATIN SUSP 500,000 U/5 ML UDC PO SCH ×4 (07:59→21:11)
[2017-09-06] MEDS: LISINOPRIL 5 MG TAB PO SCH (07:59)
[2017-09-06] MEDS: ASPIRIN 81 MG ECTAB PO SCH (08:00)
[2017-09-06] MEDS: BusPIRone 15 MG TAB PO SCH ×3 (08:00→21:09)
[2017-09-06] MEDS: ATORVASTATIN 40 MG TAB PO SCH (08:01)
[2017-09-06] MEDS: AMIODARONE 200 MG TAB PO SCH (08:01)
[2017-09-06] MEDS: FUROSEMIDE 40 MG TAB PO SCH (08:01)
[2017-09-06] MEDS: PANTOprazole SOD 40 MG TAB PO SCH (08:01)
[2017-09-06] MEDS: VENLAFAXINE HCL XR 75 MG CAPXR PO SCH (08:02)
[2017-09-06] MEDS: INSULIN ASPART 100 UNITS/ML 3 ML PEN SC SCH ×4 (08:19→21:19)
--- NOTE | 2017-09-06 08:32 | Clinical Documentation Query ---
CLINICAL DOCUMENTATION QUERY Dr. SIMON, In your clinical opinion is this patient being managed for: (x ) Urinary tract infection ( ) Not Agree ( ) Other explanation of clinical findings (Please Explain. If no explanation given, this would be considered a no response.) ( ) Unable to determine ( ) Need to Discuss (Please call CDS via extension or qliq. If no interaction occurs this is considered a no response.) The medical record reflects the following clinical findings, treatment, and risk factors. Clinical Indicators: 77 yo female presenting with acute/chronic respiratory failure, COPD exacerbation. UA with small LE, 10-30 WBC, +2 bacteria Treatment: pending UA cx, currently on azithromycin (for bronchitis) Risk Factors:gender, age, DM, chronically intermittent steroid therapy Please clarify and document your clinical opinion in the progress notes and discharge summary. Terms such as "probable", "suspected", "likely", "questionable", "possible", or "still to be ruled out" are acceptable. IF IN AGREEMENT, YOU MUST DOCUMENT ABOVE DIAGNOSTIC STATEMENT IN DAILY PROGRESS NOTES AND DISCHARGE SUMMARY. This document is not part of the patient's record. Thank You, Janette Blas, GABE [phone]
[2017-09-06] MEDS ORDERED: AZITHROMYCIN 250 MG TAB PO SCH (09:00)
[2017-09-06] MEDS: MICONAZOLE NITRATE POWDER 43 GM EXT PRN (10:05)
[2017-09-06] MEDS ORDERED: INSULIN GLARGINE SOLOSTAR 100 UNITS/ML 3 ML PEN SC ONE (10:30)
[2017-09-06] MEDS: WARFARIN SOD 3 MG TAB PO SCH (16:00)
[2017-09-06] MEDS: NYSTATIN POWDER 15GM BTL EXT SCH ×2 (16:37→21:00)
[2017-09-06] MEDS ORDERED: LACTOBACILLUS ACIDOPHILUS (FLORANEX) TAB PO SCH (17:00)
[2017-09-06] MEDS: LEVALBUTEROL 1.25MG/3ML NEB INH SCH (19:07)
[2017-09-06] MEDS: GUAIFENESIN 600 MG TABCR PO SCH (21:08)
[2017-09-06] MEDS: CEFDINIR 300 MG CAP PO SCH (21:11)
[2017-09-06] MEDS: TRAZODONE HCL 100 MG TAB PO SCH (21:11)
[2017-09-06] MEDS: MIRTAZAPINE TAB 15 MG TAB PO SCH (21:12)
[2017-09-06] MEDS: INSULIN GLARGINE SOLOSTAR 100 UNITS/ML 3 ML PEN SC SCH (21:20)
--- NOTE | 2017-09-06 21:53 | Progress Note ---
Subjective Date of Service: Sep 06, 2017. Subjective Pt evaluation today including: conversation w/ patient, conversation w/ family (daughter at bedside), physical exam, chart review, lab review, review of studies (cxr), review of inpatient medication list Pain: mild dysuria PO Intake: eating ok Voiding: no voiding problems tele stable overnight she has ongoing cough - dry no fever or chills mild dyspnea with exertion is on home o2 amount of 4 liters has had UTI symptoms for a few days at home Problem List Medical Problems: (1) Acute on chronic respiratory failure with hypoxia and hypercapnia Status: Acute (2) Anemia Status: Acute (3) Anemia Status: Acute (4) Anemia Status: Acute (5) Anemia Status: Acute (6) Bronchitis Status: Acute (7) Cellulitis Status: Acute (8) COPD exacerbation Status: Acute (9) COPD with exacerbation Status: Acute (10) Dyspnea Status: Acute (11) Fatigue Status: Acute (12) GI bleed Status: Acute (13) GI bleed Status: Acute (14) Hypokalemia Status: Acute (15) Respiratory failure Status: Acute (16) Sepsis Status: Acute (17) SOB (shortness of breath) Status: Acute (18) TIA (transient ischemic attack) Status: Acute (19) UTI (urinary tract infection) Status: Acute Review of Systems Constitutional: No fever, No chills Respiratory: + cough, + wheezing, + shortness of breath, + dyspnea on exertion , No sputum Cardiac: + orthopnea, No chest pain, No PND, No edema Abdomen: No pain Skin: + rash, + itch (under breasts) Objective Vital Signs Date Time Temp Pulse Resp B/P (MAP) Pulse Ox O2 Delivery O2 Flow Rate FiO2 09/06/17 20:12 36.9 99 20 129/69 (89) 97 Nasal Cannula 4.0 09/06/17 19:07 112 22 94 Nasal Cannula 4.0 09/06/17 16:00 Nasal Cannula 4.0 09/06/17 15:38 36.9 92 18 121/56 (77) 97 Nasal Cannula 4.0 09/06/17 14:04 91 18 98 Nasal Cannula 4.0 09/06/17 13:19 93 136/76 (96) 09/06/17 12:00 Nasal Cannula 4.0 09/06/17 11:33 36.6 113 20 184/80 (114) 93 Nasal Cannula 4.0 09/06/17 08:00 Nasal Cannula 4.0 09/06/17 07:57 98 148/81 (103) 09/06/17 07:33 36.7 98 18 175/92 (119) 96 Nasal Cannula 4.0 09/06/17 07:31 86 18 97 Nasal Cannula 4.0 09/06/17 04:15 36.7 97 18 147/62 (90) 99 Nasal Cannula 5.0 09/06/17 04:00 Nasal Cannula 4.0 09/06/17 01:49 103 18 95 Nasal Cannula 4.0 09/06/17 00:00 Nasal Cannula 4.0 09/05/17 23:51 36.6 95 18 131/70 (90) 96 Nasal Cannula 4.0 Physical Exam General Appearance: no apparent distress, + obese ENT: pharynx normal Neck: no JVD Respiratory/Chest: no respiratory distress, no accessory muscle use, + pertinent finding (extensive wheezing b/l, no rales; airation is poor ( especially expiratory phase)) Cardiovascular: no gallop, no murmur, + tachycardia Abdomen: normal bowel sounds, non tender, soft, no organomegaly Extremities: no pedal edema Neurologic/Psychiatric: alert, oriented x 3 Skin: + pertinent finding (intertrigo under both breasts ) Laboratory Results Last 24 Hours Test 09/06/17 06:47 09/06/17 07:37 09/06/17 11:52 09/06/17 16:27 White Blood Count 11.15 K/uL Red Blood Count 3.68 M/uL Hemoglobin 10.6 g/dL Hematocrit 35.3 % Mean Corpuscular Volume 95.9 fL Mean Corpuscular Hemoglobin 28.8 pg Mean Corpuscular Hemoglobin Concent 30.0 g/dl Platelet Count 195 K/uL Mean Platelet Volume 10.5 fL Neutrophils (%) (Auto) 93.0 % Lymphocytes (%) (Auto) 5.3 % Monocytes (%) (Auto) 1.2 % Eosinophils (%) (Auto) 0.0 % Basophils (%) (Auto) 0.1 % Neutrophils # (Auto) 10.37 K/uL Lymphocytes # (Auto) 0.59 K/uL Monocytes # (Auto) 0.13 K/uL Eosinophils # (Auto) 0.00 K/uL Basophils # (Auto) 0.01 K/uL RDW Standard Deviation 52.3 fL RDW Coefficient of Variation 15.0 % Immature Granulocyte % (Auto) 0.4 % Immature Granulocyte # (Auto) 0.05 K/uL Prothrombin Time 24.4 SECONDS Prothromb Time International Ratio 2.4 Sodium Level 139 mmol/L Potassium Level 4.5 mmol/L Chloride Level 97 mmol/L Carbon Dioxide Level 41 mmol/L Anion Gap 1.0 mmol/L Blood Urea Nitrogen 16 mg/dl Creatinine 0.77 mg/dl Est Creatinine Clear Calc Drug Dose 78.8 ml/min Estimated GFR () 87.5 Estimated GFR (Non- 75.5 BUN/Creatinine Ratio 20.9 Random Glucose 210 mg/dl Calcium Level 8.8 mg/dl Magnesium Level 2.4 mg/dl Total Bilirubin 0.3 mg/dl Aspartate Amino Transf (AST/SGOT) 14 U/L Alanine Aminotransferase (ALT/SGPT) 22 U/L Alkaline Phosphatase 115 U/L Total Protein 6.6 gm/dl Albumin 2.8 gm/dl Globulin 3.8 gm/dl Albumin/Globulin Ratio 0.7 Bedside Glucose 229 mg/dl 242 mg/dl 160 mg/dl Test 09/06/17 20:01 Bedside Glucose 270 mg/dl Assessment and Plan 77yo female: 1. COPD with exacerbation - cont IV steroids; would lower to 60mg IV q8h. Add xopenex to the atrovent nebs q6h. Add mucinex. Add incentive spirometry. Can hold budesonide due to systemic steroids. Cont NC O2 during day; BIPAP at HS. Cont abx but change zithromax to omnicef. (see below) 2. LOGAN - BIPAP HS/naps. 3. chronic hypoxic/hypercarbic respiratory failure - stable on home O2 amount. 4. proteus UTI - received rocephin x 1 yesterday; change zithromax (being used for #1) to omnicef as this will cover lungs and UTI. Follow cultures. 5. morbid obesity with BMI 38 6. DVT proph - coumadin. Daily INR. 7. a fib - remains in NSR on amiodarone. Cont coumadin for anticoagulation. Telemetry. 8. intertrigo - nystatin powder TID. 9. uncontrolled T2DM - tighten novolog for meal coverage; add AM lantus 10 units; cont HS lantus as is for now. 10. iron def anemia - recheck iron studies in am. PT, OT car[place] daughter updated Continued [facility] stay due to: multiple IV medications needed Discharge planning: uncertain
[2017-09-07] VITALS (13 sets, daily range): BP systolic 125–163; BP diastolic 56–77; PULSE 66–105; TEMP 36.5–36.9; O2SAT 95–99
[2017-09-07] MEDS: IPRATROPIUM BROMIDE NEB SOLN 0.02% 2.5 ML VIAL INH SCH ×4 (01:56→18:53)
[2017-09-07] MEDS: LEVALBUTEROL 1.25MG/3ML NEB INH SCH ×4 (01:56→18:53)
[2017-09-07 06:12] LABS: INR 2.7 (0.9-1.1)
[2017-09-07 06:58] LABS: CALCIUM 8.8 mg/dl (8.5-10.1); CREATININE 0.87 mg/dl (0.60-1.20); POTASSIUM 4.7 mmol/L (3.5-5.1)
[2017-09-07] MEDS: METHYLPREDNISOLONE IV 60 MG in SYRINGE 0 ML IV SCH ×3 (08:01→23:21)
[2017-09-07] MEDS: VENLAFAXINE HCL XR 150 MG CAPXR PO SCH (08:01)
[2017-09-07] MEDS: LISINOPRIL 5 MG TAB PO SCH (08:01)
[2017-09-07] MEDS: BusPIRone 15 MG TAB PO SCH ×3 (08:01→23:20)
[2017-09-07] MEDS: ASPIRIN 81 MG ECTAB PO SCH (08:02)
[2017-09-07] MEDS: GUAIFENESIN 600 MG TABCR PO SCH ×2 (08:02→23:20)
[2017-09-07] MEDS: FUROSEMIDE 40 MG TAB PO SCH (08:02)
[2017-09-07] MEDS: AMIODARONE 200 MG TAB PO SCH (08:02)
[2017-09-07] MEDS: ATORVASTATIN 40 MG TAB PO SCH (08:03)
[2017-09-07] MEDS: PANTOprazole SOD 40 MG TAB PO SCH (08:03)
[2017-09-07] MEDS: LACTOBACILLUS ACIDOPHILUS (FLORANEX) TAB PO SCH ×3 (08:03→17:13)
[2017-09-07] MEDS: NYSTATIN SUSP 500,000 U/5 ML UDC PO SCH ×4 (08:04→23:20)
[2017-09-07] MEDS: CEFDINIR 300 MG CAP PO SCH ×2 (08:04→23:20)
[2017-09-07] MEDS: VENLAFAXINE HCL XR 75 MG CAPXR PO SCH (08:04)
[2017-09-07] MEDS: DILTIAZEM HCL 180 MG CAPCR PO SCH (08:04)
[2017-09-07] MEDS: NYSTATIN POWDER 15GM BTL EXT SCH ×3 (08:05→21:00)
[2017-09-07] MEDS: INSULIN ASPART 100 UNITS/ML 3 ML PEN SC SCH ×4 (08:13→20:51)
[2017-09-07] MEDS ORDERED: INSULIN GLARGINE SOLOSTAR 100 UNITS/ML 3 ML PEN SC SCH (09:00)
[2017-09-07] MEDS ORDERED: INSULIN GLARGINE SOLOSTAR 100 UNITS/ML 3 ML PEN SC ONE (09:45)
[2017-09-07] MEDS ORDERED: FERROUS SULFATE 325 MG TAB PO ONE (09:50)
--- NOTE | 2017-09-07 13:52 | DIAGNOSTIC IMAGING REPORT ---
LEFT TIBIA AND FIBULA 2 VIEWS CLINICAL HISTORY: Left leg pain. FINDINGS: AP and lateral views of the left tibia and fibula are correlated with radiographs of the left knee dated 10/28/2015. The skeletal structures are osteopenic. No fracture is seen. There is no bony erosion or periostitis. The knee and ankle joints appear maintained. Arthritic change is noted in the knee. There is a large plantar calcaneal enthesophyte. Soft tissue edema is noted in the calf. IMPRESSION: Soft tissue swelling with no acute osseous abnormality identified. Electronically signed by: Jose Zazueta M.D. 09/07/2017 1:51 PM Dictated Date/Time: 09/07/2017 1:50 PM
[2017-09-07] MEDS: DICLOFENAC SOD 1% GEL 100 GM TUBE EXT SCH ×3 (13:55→23:20)
[2017-09-07] MEDS: WARFARIN SOD 3 MG TAB PO SCH (15:41)
[2017-09-07] MEDS: INSULIN GLARGINE SOLOSTAR 100 UNITS/ML 3 ML PEN SC SCH (20:51)
[2017-09-07] MEDS: TRAZODONE HCL 100 MG TAB PO SCH (23:20)
[2017-09-07] MEDS: FERROUS SULFATE 325 MG TAB PO SCH (23:20)
--- NOTE | 2017-09-07 23:20 | Progress Note ---
Subjective Date of Service: Sep 07, 2017. Subjective Pt evaluation today including: conversation w/ patient, physical exam, chart review, lab review, review of inpatient medication list Pain: left distal tibia, medial aspect - "ache" PO Intake: normal, eating well Voiding: no voiding problems tele stable overnight; minimal sinus tach/ NSR feeling "a little better" today still with cough and not much mucous but airation improving slept ok overnight no new complaints Problem List Medical Problems: (1) Acute on chronic respiratory failure with hypoxia and hypercapnia Status: Acute (2) Anemia Status: Acute (3) Anemia Status: Acute (4) Anemia Status: Acute (5) Anemia Status: Acute (6) Bronchitis Status: Acute (7) Cellulitis Status: Acute (8) COPD exacerbation Status: Acute (9) COPD with exacerbation Status: Acute (10) Dyspnea Status: Acute (11) Fatigue Status: Acute (12) GI bleed Status: Acute (13) GI bleed Status: Acute (14) Hypokalemia Status: Acute (15) Respiratory failure Status: Acute (16) Sepsis Status: Acute (17) SOB (shortness of breath) Status: Acute (18) TIA (transient ischemic attack) Status: Acute (19) UTI (urinary tract infection) Status: Acute Review of Systems Constitutional: No fever, No chills Respiratory: No sputum Cardiac: No chest pain, No orthopnea, No PND Abdomen: No pain, No diarrhea, No constipation Objective Vital Signs Date Time Temp Pulse Resp B/P (MAP) Pulse Ox O2 Delivery O2 Flow Rate FiO2 09/07/17 22:12 36.8 93 18 163/75 (104) 97 Room Air 4.0 09/07/17 20:00 Nasal Cannula 4.0 09/07/17 18:56 90 18 97 Nasal Cannula 4.0 09/07/17 17:57 Nasal Cannula 4.0 09/07/17 16:13 89 18 97 Nasal Cannula 4.0 09/07/17 15:15 36.9 66 16 147/77 (100) 95 4.0 09/07/17 12:00 Nasal Cannula 4.0 09/07/17 11:49 36.6 93 22 153/75 (101) 99 Nasal Cannula 4.0 09/07/17 10:17 105 99 09/07/17 08:00 99 135/71 (92) 09/07/17 08:00 Nasal Cannula 4.0 09/07/17 07:21 89 20 99 Nasal Cannula 4.0 09/07/17 07:12 36.7 90 18 141/67 (91) 97 Nasal Cannula 4.0 09/07/17 04:00 Nasal Cannula 4.0 09/07/17 03:40 36.5 86 18 125/56 (79) 98 Nasal Cannula 4.0 09/07/17 01:56 97 96 4.0 09/07/17 01:56 97 22 96 BiPAP/CPAP 4.0 09/07/17 01:00 BiPAP 4.0 09/07/17 00:23 36.9 91 16 144/67 (92) 99 Nasal Cannula 4.0 Physical Exam General Appearance: no apparent distress, + obese ENT: pharynx normal Neck: no JVD Respiratory/Chest: no respiratory distress, no accessory muscle use, + pertinent finding (airation improved; less wheezing; no rales; decreased BS bases) Cardiovascular: regular rate, rhythm, no gallop, no murmur Abdomen: normal bowel sounds, non tender, soft, no organomegaly Extremities: + pedal edema (trace b/l ) Neurologic/Psychiatric: alert, oriented x 3 Comments: musculo - left tibia - distal medial aspect of leg is mildly tender to palpation ; there is no palpable abnormality, however; no cords, no calf tenderness Laboratory Results Last 24 Hours Test 09/07/17 05:21 09/07/17 07:26 09/07/17 16:27 09/07/17 16:50 Prothrombin Time 28.0 SECONDS Prothromb Time International Ratio 2.7 Sodium Level 142 mmol/L Potassium Level 4.7 mmol/L Chloride Level 100 mmol/L Carbon Dioxide Level 43 mmol/L Anion Gap -1.0 mmol/L Blood Urea Nitrogen 25 mg/dl Creatinine 0.87 mg/dl Est Creatinine Clear Calc Drug Dose 69.8 ml/min Estimated GFR () 75.5 Estimated GFR (Non- 65.2 BUN/Creatinine Ratio 29.2 Random Glucose 212 mg/dl Calcium Level 8.8 mg/dl Iron Level 28 mcg/dl Transferrin 262 mg/dl Transferrin % Saturation 8 % Ferritin 42.3 ng/ml Bedside Glucose 210 mg/dl 147 mg/dl 148 mg/dl Test 09/07/17 19:40 Bedside Glucose 233 mg/dl Assessment and Plan 77yo female: 1. COPD with exacerbation - improving but would leave steroids at 60mg IV q8h today; hopefully wean tomorrow. Cont xopenex/atrovent nebs q6h. Cont mucinex and incentive spirometry. Can hold budesonide due to systemic steroids. Cont NC O2 during day; BIPAP at HS. Cont omnicef, day #2. 2. LOGAN - BIPAP HS/naps. 3. chronic hypoxic/hypercarbic respiratory failure - stable on home O2 amount. 4. proteus UTI - received rocephin day 1, then omnicef days 2 & 3. Cont omnicef to complete total of 7 days of abx. 5. morbid obesity with BMI 38 6. DVT proph - coumadin. Daily INR. INR therapeutic today. 7. a fib - remains in NSR on amiodarone. Cont coumadin for anticoagulation. Telemetry. Also continue diltiazem. 8. intertrigo - nystatin powder TID. 9. uncontrolled T2DM - increase AM lantus to 20 units qam; cont HS lantus as well along with novolog ac. 10. iron def anemia - trans sat is low, ferritin also low-normal. Restart ferrous sulfate 325mg BID. Consider outpatient GI w/u for this. Could obtain a fecal occult blood while here to be complete. H/H stable on cbc. 11. left distal leg pain - check tib-fib x-rays, r/o occult stress fracture, etc. PT, OT carrington daughter updated 09/06 d/c tele, move to med/surg Continued [facility] stay due to: multiple IV medications needed Discharge planning: home with home health
[2017-09-07] MEDS: MIRTAZAPINE TAB 15 MG TAB PO SCH (23:21)
[2017-09-08] VITALS (9 sets, daily range): BP systolic 103–149; BP diastolic 56–84; PULSE 85–104; TEMP 36.6–37.2; O2SAT 95–99
[2017-09-08] MEDS: IPRATROPIUM BROMIDE NEB SOLN 0.02% 2.5 ML VIAL INH SCH ×4 (01:55→19:12)
[2017-09-08] MEDS: LEVALBUTEROL 1.25MG/3ML NEB INH SCH ×4 (01:55→19:12)
[2017-09-08] MEDS: ACETAMINOPHEN 325 MG TAB PO PRN ×2 (04:11→10:21)
[2017-09-08 07:43] LABS: INR 4.1 (0.9-1.1)
[2017-09-08 07:58] LABS: CALCIUM 8.5 mg/dl (8.5-10.1); CREATININE 1.18 mg/dl (0.60-1.20); POTASSIUM 4.1 mmol/L (3.5-5.1)
[2017-09-08] MEDS: ASPIRIN 81 MG ECTAB PO SCH (08:14)
[2017-09-08] MEDS: CEFDINIR 300 MG CAP PO SCH ×2 (08:14→21:49)
[2017-09-08] MEDS: AMIODARONE 200 MG TAB PO SCH (08:14)
[2017-09-08] MEDS: NYSTATIN SUSP 500,000 U/5 ML UDC PO SCH ×4 (08:15→21:46)
[2017-09-08] MEDS: DILTIAZEM HCL 180 MG CAPCR PO SCH (08:15)
[2017-09-08] MEDS: LISINOPRIL 5 MG TAB PO SCH (08:15)
[2017-09-08] MEDS: FUROSEMIDE 40 MG TAB PO SCH (08:16)
[2017-09-08] MEDS: ATORVASTATIN 40 MG TAB PO SCH (08:16)
[2017-09-08] MEDS: LACTOBACILLUS ACIDOPHILUS (FLORANEX) TAB PO SCH ×3 (08:16→17:26)
[2017-09-08] MEDS: VENLAFAXINE HCL XR 75 MG CAPXR PO SCH (08:17)
[2017-09-08] MEDS: GUAIFENESIN 600 MG TABCR PO SCH ×2 (08:17→21:50)
[2017-09-08] MEDS: VENLAFAXINE HCL XR 150 MG CAPXR PO SCH (08:18)
[2017-09-08] MEDS: FERROUS SULFATE 325 MG TAB PO SCH ×2 (08:18→21:51)
[2017-09-08] MEDS: DICLOFENAC SOD 1% GEL 100 GM TUBE EXT SCH ×4 (08:18→21:47)
[2017-09-08] MEDS: PANTOprazole SOD 40 MG TAB PO SCH (08:19)
[2017-09-08] MEDS: BusPIRone 15 MG TAB PO SCH ×3 (08:19→21:48)
[2017-09-08] MEDS: NYSTATIN POWDER 15GM BTL EXT SCH ×3 (08:19→22:03)
[2017-09-08] MEDS: INSULIN ASPART 100 UNITS/ML 3 ML PEN SC SCH ×4 (08:24→21:59)
[2017-09-08] MEDS: INSULIN GLARGINE SOLOSTAR 100 UNITS/ML 3 ML PEN SC SCH ×2 (08:25→22:03)
[2017-09-08] MEDS: METHYLPREDNISOLONE IV 60 MG in SYRINGE 0 ML IV SCH ×2 (08:48→16:15)
--- NOTE | 2017-09-08 17:52 | Hospitalist Progress Note ---
Hospitalist Progress Note Date of Service Sep 08, 2017. Subjective Pt evaluation today including: conversation w/ patient, conversation w/ executive consultant (Cardiology) RN called me this evening saying that patient has an irregular fast heartbeat. When he came to see her, she reports having had left-sided chest pressure for about half the day but did not tell anybody about it. Feels a little bit more short of breath and lightheaded than usual. Her blood pressure is lower than normal at 103 systolic. EKG revealed rapid atrial fibrillation with a rate in the 120s. I discussed the case with cooperative education coordinator operational assistant on the phone. Otherwise, she is still coughing but it is dry now. All Other Systems: Reviewed and Negative Objective Vital Signs Date Time Temp Pulse Resp B/P (MAP) Pulse Ox O2 Delivery O2 Flow Rate FiO2 09/08/17 16:18 36.7 104 20 103/66 (78) 98 Nasal Cannula 4.0 09/08/17 16:00 Nasal Cannula 4.0 09/08/17 14:25 99 16 97 Nasal Cannula 4.0 09/08/17 08:00 Nasal Cannula 4.0 09/08/17 07:42 36.6 89 17 149/84 (105) 95 Nasal Cannula 4.0 09/08/17 07:10 85 16 98 Nasal Cannula 4.0 09/08/17 01:57 88 16 99 Nasal Cannula 4.0 09/08/17 00:00 Nasal Cannula 4.0 09/07/17 23:59 83 96 4.0 09/07/17 22:12 36.8 93 18 163/75 (104) 97 Room Air 4.0 09/07/17 20:00 Nasal Cannula 4.0 09/07/17 18:56 90 18 97 Nasal Cannula 4.0 09/07/17 17:57 Nasal Cannula 4.0 Physical Exam General Appearance: WD/WN, no apparent distress, + obese Eyes: normal inspection, sclerae normal ENT: hearing grossly normal Neck: trachea midline Respiratory/Chest: no respiratory distress, no accessory muscle use, + decreased breath sounds (Throughout, however no wheezes crackles or rhonchi) Cardiovascular: no murmur, + tachycardia, + irregularly irregular Abdomen: normal bowel sounds, non tender, soft Extremities: normal inspection, no pedal edema, no calf tenderness Neurologic/Psychiatric: alert, normal mood/affect, oriented x 3 Skin: normal color, warm/dry, no rash Laboratory Results Last 24 Hours Test 09/07/17 19:40 09/08/17 07:09 09/08/17 07:35 09/08/17 11:42 Bedside Glucose 233 mg/dl 224 mg/dl 173 mg/dl Prothrombin Time 41.7 SECONDS Prothromb Time International Ratio 4.1 Sodium Level 140 mmol/L Potassium Level 4.1 mmol/L Chloride Level 96 mmol/L Carbon Dioxide Level 43 mmol/L Anion Gap 1.0 mmol/L Blood Urea Nitrogen 26 mg/dl Creatinine 1.18 mg/dl Est Creatinine Clear Calc Drug Dose 51.2 ml/min Estimated GFR () 52.2 Estimated GFR (Non- 45.1 BUN/Creatinine Ratio 22.4 Random Glucose 211 mg/dl Calcium Level 8.5 mg/dl Test 09/08/17 16:48 09/08/17 17:33 Bedside Glucose 156 mg/dl Assessment and Plan Ms. Church is a 77 year old female with hx of chronic diastolic CHF with preserved EF, paroxysmal atrial fibrillation on Coumadin, history of TIA/CVA, history of GI bleed, anxiety disorder, chronic respiratory failure/O2 dependent COPD (on 4L of oxygen at home), obesity hypoventilation syndrome on nocturnal BiPAP, DM 2, HTN, and hyperlipidemia who presented with significant shortness of breath and acute on chronic hypoxic respiratory failure secondary to acute exacerbation of COPD. 1. COPD with exacerbation -improving, however little more short of breath today likely secondary to current rapid atrial fibrillation -Wean steroids to Solu-Medrol 60 mg's IV q 12 hours -Cont xopenex/atrovent nebs q6h. -Cont mucinex and incentive spirometry. -Okay to restart inhaled corticosteroid -Cont NC O2 during day; BIPAP at HS. -Cont omnicef, day #3. 2. LOGAN - BIPAP HS/naps. Not tolerating well at night -Continue to encourage BiPAP 3. chronic hypoxic/hypercarbic respiratory failure - stable on home O2 amount of 4 L nasal cannula 4. proteus UTI - received rocephin day 1, then omnicef. -Cont omnicef to complete total of 7 days of abx. Today's day #3 of 7 5. morbid obesity with BMI 38 6. DVT proph - coumadin. Daily INR. INR supratherapeutic today. -Hold Coumadin -Follow PT/INR daily 7. Paroxysmal atrial fibrillation with rapid ventricular response-previously in NSR on amiodarone and then transferred to medical. Now back in rapid atrial fibrillation with relatively low blood pressure and left-sided chest pressure. ECG without ischemic changes but with rapid atrial fibrillation in the 120s. -Check stat troponin, BMP, magnesium and replace electro lites as needed, trend troponin is elevated -Cont coumadin for anticoagulation but holding today for INR 4.1 as above -Transfer back to telemetry. -continue home dose of p.o. diltiazem, but will likely start diltiazem drip in the acute setting given the relative hypotension and rapid rate -Appreciate cardiology consultation 8. intertrigo - nystatin powder TID. 9. uncontrolled T2DM - increase AM lantus to 20 units qam; cont HS lantus as well along with novolog ac. 10. iron def anemia - trans sat is low, ferritin also low-normal. Restart ferrous sulfate 325mg BID. Consider outpatient GI w/u for this. Could obtain a fecal occult blood while here to be complete. H/H stable on cbc. 11. left distal leg pain - check tib-fib x-rays, r/o occult stress fracture, etc. and x-rays negative PT, OT evals -Disposition-transfer to telemetry Full code
[2017-09-08 18:13] LABS: BLOOD UREA NITROGEN 29 mg/dl (7-18); CALCIUM 8.5 mg/dl (8.5-10.1); CARBON DIOXIDE 39 mmol/L (21-32); CREATININE 1.47 mg/dl (0.60-1.20); GLUCOSE 194 mg/dl (70-99); POTASSIUM 3.9 mmol/L (3.5-5.1); SODIUM 139 mmol/L (136-145)
--- NOTE | 2017-09-08 18:21 | Cardiology Consultation ---
Cardiology Consultation Date of Consultation: Sep 08, 2017. Requesting Physician: Sonya Reason for Consultation: Atrial fibrillation Pt evaluation today including: conversation w/ patient, physical exam, chart review, lab review, review of studies, review of inpatient medication list, conversation w/ attending History of Present Illness Patient is a 77-year-old woman with a history of atrial fibrillation who was admitted to [facility] on the 05 of September with symptoms of a COPD exacerbation and bronchitis. The patient appeared to be improving until today which she stated her breathing became slightly worse. She was later discovered to have a tachycardia at a slightly lower blood pressure. EKG revealed atrial fibrillation. Patient did not appear to be overtly aware of a change in her rhythm. She noticed that her heart rate was high when her vital signs were taken. She has noticed some odd sensation in the left chest area. She describes this as a numbness or achiness. She continues to have an element of dyspnea which she reports subjectively worsened over the course of today. She does not recall having this type of chest discomfort in the past. She cannot recall having a sense of palpitation or rapid heartbeat since 2013 when she was initially diagnosed with atrial fibrillation. She states that recently she has had brief episodes of dizziness and lightheadedness sometimes associated with breathing trouble or exertion. She is generally a sedentary individual due to her severe dyspnea. Past Medical/Surgical History COPD, severe Atrial fibrillation, paroxysmal Obstructive sleep apnea Anemia Depression Diabetes mellitus Gastroesophageal reflux History of gastrointestinal hemorrhage on Xarelto Hiatal hernia Hyperlipidemia Hypertension Restless leg syndrome Peripheral artery disease Urgent continence History of TIA Past surgical history: Cataracts Cholecystectomy Rotator cuff repair Tonsillectomy Total abdominal hysterectomy Oral surgery Family History Diabetes mellitus FH: cancer (lymphoma, breast cancer) Hypertension Noncontributory given her advanced age Social History Smoking Status: Former Smoker History of Alcohol Use: No Currently lives with her daughter. 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 She states she has had some swelling in her lower extremities in the recent past but lately they have been free of edema. She does not sleep well at night for unclear reasons, mostly restless leg syndrome. No overt orthopnea. All Other Systems: Reviewed and Negative Allergies Coded Allergies: Mushroom (Verified Allergy, Unknown, 07/19/17) Theophyllines (Verified Allergy, Unknown, Unknown, 07/19/17) Reported by daughter and listed in [facility] record. Codeine (Verified Adverse Reaction, Severe, HYPERVENTILATES, 07/19/17) Morphine (Verified Adverse Reaction, Severe, Causes Afib, 07/19/17) Medications Current Inpatient Medications Medications (Trade) Dose Ordered Sig/Buddy Route Start Time Stop Time Status Last Admin Dose Admin Aspirin (Ecotrin Tab) 81 mg DAILY PO 09/06/17 09:00 10/06/17 08:59 09/08/17 08:14 81 MG Atorvastatin Calcium (Lipitor Tab) 80 mg DAILY PO 09/06/17 09:00 10/06/17 08:59 09/08/17 08:16 80 MG Budesonide (Pulmicort Respules 0.25MG/ 2ML Neb Soln) 0.25 mg BIDR INH 09/05/17 20:00 10/05/17 19:59 Future Hold 09/06/17 06:52 0.25 MG Buspirone HCl (BusPAR TAB) 15 mg TID PO 09/05/17 21:00 10/05/17 20:59 09/08/17 13:49 15 MG Diltiazem HCl (Cardizem Cd Cap) 180 mg DAILY PO 09/06/17 09:00 10/06/17 08:59 09/08/17 08:15 180 MG Furosemide (Lasix Tab) 40 mg QAM PO 09/06/17 09:00 10/06/17 08:59 09/08/17 08:16 40 MG Insulin Glargine (Lantus Solostar Pen) 25 units QPM SC 09/05/17 21:00 10/05/17 20:59 09/07/17 20:51 25 UNITS Ipratropium [place] (Atrovent 0.02% 0.5MG/2.5ML Neb) 0.5 mg Q6R INH 09/05/17 21:00 10/05/17 20:59 09/08/17 14:24 0.5 MG Lisinopril (Zestril Tab) 5 mg QAM PO 09/06/17 09:00 10/06/17 08:59 09/08/17 08:15 5 MG Mirtazapine (Remeron Tab) 30 mg HS PO 09/05/17 21:00 10/05/17 20:59 09/07/17 23:21 30 MG Pantoprazole Sodium (Protonix Tab) 40 mg QAM PO 09/06/17 09:00 10/06/17 08:59 09/08/17 08:19 40 MG Trazodone HCl (Desyrel Tab) 200 mg HS PO 09/05/17 21:00 10/05/17 20:59 09/07/17 23:20 200 MG Venlafaxine HCl (effeXOR EXTENDED REL CAP) 75 mg DAILY PO 09/06/17 09:00 10/06/17 08:59 09/08/17 08:17 75 MG Venlafaxine HCl (effeXOR EXTENDED REL CAP) 150 mg DAILY PO 09/06/17 09:00 10/06/17 08:59 09/08/17 08:18 150 MG Warfarin Sodium (Coumadin Tab) 3 mg DAILY@1600 PO 09/05/17 20:30 10/05/17 20:29 Future Hold 09/07/17 15:41 3 MG Lactobacillus Acidophilus (Floranex Tab) 4 tab TIDM PO 09/06/17 08:00 10/06/17 07:59 09/08/17 17:26 4 TAB Amiodarone HCl (Cordarone Tab) 100 mg DAILY PO 09/06/17 09:00 10/06/17 08:59 09/08/17 08:14 100 MG Nystatin (Mycostatin Susp) 5 ml QID PO 09/05/17 21:00 10/05/17 20:59 09/08/17 17:26 5 ML Acetaminophen (Tylenol Tab) 650 mg Q4H PRN PO 09/05/17 19:45 10/05/17 19:44 09/08/17 10:21 650 MG Al Hydrox/Mg Hydrox/Simethicone (Maalox Max Susp) 15 ml Q4H PRN PO 09/05/17 19:45 10/05/17 19:44 09/07/17 05:55 15 ML Magnesium Hydroxide (Milk Of Magnesia Susp) 30 ml Q12H PRN PO 09/05/17 19:45 10/05/17 19:44 Ondansetron HCl (Zofran Inj) 4 mg Q6H PRN IV 09/05/17 19:45 10/05/17 19:44 Polyethylene (Miralax Powder Packet) 17 gm DAILY PRN PO 09/05/17 19:45 10/05/17 19:44 Insulin Aspart (novoLOG ASPART) SLIDING SCALE If C... ACHS SC 09/05/17 21:00 10/05/17 20:59 09/08/17 17:33 7 UNITS Glucose (Glucose 40% Gel) 15-30 GRAMS 15 GRAMS... UD PRN PO 09/05/17 19:45 10/05/17 19:44 Glucose (Glucose Chew Tab) 4-8 Tablets 4 Tabl... UD PRN PO 09/05/17 19:45 10/05/17 19:44 Dextrose (Dextrose 50% 50ML Syringe) 25-50ML OF 50% DW IV FOR... UD PRN IV 09/05/17 19:45 10/05/17 19:44 Glucagon (Glucagon Inj) 1 mg UD PRN SQ 09/05/17 19:45 10/05/17 19:44 Miconazole Nitrate (Desenex Powder) 1 appln PRN PRN EXT 09/06/17 00:30 10/06/17 00:29 09/06/17 10:05 1 APPLN Nystatin (Mycostatin Powder) 1 appln TID EXT 09/06/17 15:30 10/06/17 15:29 09/08/17 08:19 1 APPLN Cefdinir (Omnicef Cap) 300 mg BID PO 09/06/17 21:00 09/13/17 20:59 09/08/17 08:14 300 MG Levalbuterol (Xopenex 1.25MG/ 3ML Neb) 1.25 mg Q6R INH 09/06/17 15:30 10/06/17 15:29 09/08/17 14:24 1.25 MG Guaifenesin (Mucinex Contr Rel Tab) 1,200 mg Q12 PO 09/06/17 21:00 10/06/17 20:59 09/08/17 08:17 1,200 MG Insulin Glargine (Lantus Solostar Pen) 20 units QAM SC 09/08/17 09:00 10/07/17 08:59 09/08/17 08:25 20 UNITS Ferrous Sulfate (Feosol Tab) 325 mg BID PO 09/07/17 21:00 10/07/17 20:59 09/08/17 08:18 325 MG Diclofenac Sodium (Voltaren 1% Top Gel) 1 appln QID EXT 09/07/17 13:00 10/07/17 12:59 09/08/17 17:29 1 APPLN Pramipexole Dihydrochloride (miraPEX TAB) 1 mg HS PO 09/08/17 21:00 10/08/17 20:59 Methylprednisolone Sodium Succinate 60 mg/Syringe 0.96 ml @ 1.5 mls/min Q12H IV 09/09/17 04:00 10/05/17 21:59 Physical Exam Vital Signs Past 12 Hours Date Time Temp Pulse Resp B/P (MAP) Pulse Ox O2 Delivery O2 Flow Rate FiO2 09/08/17 17:51 36.7 104 20 98 4.0 09/08/17 16:18 36.7 104 20 103/66 (78) 98 Nasal Cannula 4.0 09/08/17 16:00 Nasal Cannula 4.0 09/08/17 14:25 99 16 97 Nasal Cannula 4.0 09/08/17 08:00 Nasal Cannula 4.0 09/08/17 07:42 36.6 89 17 149/84 (105) 95 Nasal Cannula 4.0 09/08/17 07:10 85 16 98 Nasal Cannula 4.0 The patient is alert and oriented. Mood and affect appeared normal. He answered all questions appropriately. Obese HEENT: Pupils are equal and reactive to light and accommodation. Extraocular movements are intact. The sclerae are anicteric. Neuro: Cranial nerves intact Neck: Patient's neck is supple. He has palpable carotid pulses bilaterally without bruits on auscultation. There is no evidence of jugular venous distention. The thyroid is not enlarged. Lungs: Severely reduced pulmonary excursion. Very distant breath sounds. Cardiac: Heart demonstrates an irregular rate and rhythm. Normal S1 and S2. No murmurs on examination. Pulses: The patient has palpable radial pulses bilaterally that are equal in intensity Extremities: There was no evidence of hypoperfusion. There is no cyanosis or clubbing. There is no edema. Skin: I did not appreciate any rashes on examination today. Data Laboratory Results: Last 24 Hours Test 09/07/17 19:40 09/08/17 07:09 09/08/17 07:35 09/08/17 11:42 Bedside Glucose 233 mg/dl 224 mg/dl 173 mg/dl Prothrombin Time 41.7 SECONDS Prothromb Time International Ratio 4.1 Sodium Level 140 mmol/L Potassium Level 4.1 mmol/L Chloride Level 96 mmol/L Carbon Dioxide Level 43 mmol/L Anion Gap 1.0 mmol/L Blood Urea Nitrogen 26 mg/dl Creatinine 1.18 mg/dl Est Creatinine Clear Calc Drug Dose 51.2 ml/min Estimated GFR () 52.2 Estimated GFR (Non- 45.1 BUN/Creatinine Ratio 22.4 Random Glucose 211 mg/dl Calcium Level 8.5 mg/dl Test 09/08/17 16:48 09/08/17 17:40 Bedside Glucose 156 mg/dl Imaging: Chest x-ray the time of admission did not demonstrate any evidence of pneumonia or acute cardiopulmonary findings EKG: Atrial fibrillation with rapid ventricular response Echocardiogram obtained 06/09/2017: Preserved LV systolic function with an ejection fraction of 65-70 percent. Mild LVH. Stage I diastolic dysfunction. Severe left atrial dilation. Moderate mitral stenosis Assessment & Plan 1. Atrial fibrillation: Patient has remote history of atrial fibrillation and has been on antiarrhythmic therapy since 2013. She is not describe symptoms of atrial fibrillation having occurred in several years. It is unclear whether she has had an actual recurrence or not. She does have some worsening breathing today which could be associated with her change in rhythm. Her blood pressure slightly lower as well. Her initial presentation 2013 required cardioversion in the setting of atrial fibrillation and hypotension. She was felt to be hypovolemic at that time. She actually return to atrial fibrillation in a short time frame and was hospitalized with eventual conversion on her own. She has been maintained on amiodarone and diltiazem. I think would be reasonable to start diltiazem infusion at this point. Even though her blood pressure is slightly lower I think she would tolerate the infusion and may in fact have improvement in her hemodynamics with reduced ventricular rate. This could always be discontinued for worsening hypotension or symptoms. I would reserve cardioversion for significant hemodynamic collapse. It is likely as her clinical condition improves that she will convert on her own. She has been anticoagulated for an extended period and would be a reasonable candidate for cardioversion prior to discharge if she does not convert on her own. 2. Mitral stenosis: The patient is likely to have recurrent episodes of atrial fibrillation given this form of valve disease. She is also known to have severe left atrial dilation. In the long run her antiarrhythmic therapy is likely to be inadequate and will have to adopt a more aggressive rate control strategy. 3. Dyspnea: This appears to be exclusively related to her primary lung disease. N terminal proBNP at the time of admission was normal. She is known to have preserved LV systolic function and normal diastolic function for age. In the event she has lower blood pressures volume administration could be beneficial.
[2017-09-08] MEDS ORDERED: DILTIAZEM BOLUS / DRIP IV STA (18:24)
[2017-09-08] MEDS ORDERED: DILTIAZEM HCL INJ 125 MG in DEXTROSE 5% 100ML IV PRN (18:45)
[2017-09-08] MEDS ORDERED: DILTIAZEM HCL 5 MG/ML 5 ML VIAL BOLUS/OMNI IV ONE (18:45)
[2017-09-08] MEDS ORDERED: NURSING VERBAL MED ORDER ONE (20:00)
[2017-09-08] MEDS: MIRTAZAPINE TAB 15 MG TAB PO SCH (21:51)
[2017-09-08] MEDS: TRAZODONE HCL 100 MG TAB PO SCH (21:53)
[2017-09-08] MEDS: PRAMIPEXOLE DIHYDROCHLORIDE 0.5 MG TAB PO SCH (21:54)
[2017-09-09] VITALS (14 sets, daily range): BP systolic 113–150; BP diastolic 76–93; PULSE 88–121; TEMP 36.5–37.1; O2SAT 93–99
[2017-09-09] MEDS: IPRATROPIUM BROMIDE NEB SOLN 0.02% 2.5 ML VIAL INH SCH ×4 (01:57→19:27)
[2017-09-09] MEDS: LEVALBUTEROL 1.25MG/3ML NEB INH SCH ×4 (01:58→19:27)
[2017-09-09] MEDS: METHYLPREDNISOLONE IV 60 MG in SYRINGE 0 ML IV SCH ×2 (04:43→15:40)
[2017-09-09 06:20] LABS: HEMATOCRIT 35.3 % (37-47); HEMOGLOBIN 10.4 g/dL (12.0-16.0); IG# 0.05 K/uL (0.00-0.02); LYMPH % 4.6 %; LYMPH ABS # 0.47 K/uL (1.2-3.4); MEAN CELL VOLUME 95.4 fL (80-100); MEAN CORPUSCULAR HEMOGLOBIN 28.1 pg (25-34); MEAN CORPUSCULAR HGB CONC 29.5 g/dl (32-36); MEAN PLATELET VOLUME 10.3 fL (7.4-10.4); MONO % 4.6 %; MONO ABS # 0.47 K/uL (0.11-0.59); NEUT % 90.3 %; NEUT ABS # 9.29 K/uL (1.4-6.5); PLATELET COUNT 214 K/uL (130-400); RED CELL DISTRIBUTION WIDTH CV 15.6 % (11.5-14.5); RED CELL DISTRIBUTION WIDTH SD 54.4 fL (36.4-46.3); WHITE BLOOD COUNT 10.28 K/uL (4.8-10.8)
[2017-09-09 06:41] LABS: INR 3.9 (0.9-1.1)
[2017-09-09 06:58] LABS: CALCIUM 8.7 mg/dl (8.5-10.1); CREATININE 1.03 mg/dl (0.60-1.20); POTASSIUM 3.8 mmol/L (3.5-5.1)
[2017-09-09] MEDS: BusPIRone 15 MG TAB PO SCH ×3 (07:50→21:28)
[2017-09-09] MEDS: LACTOBACILLUS ACIDOPHILUS (FLORANEX) TAB PO SCH ×3 (07:50→16:38)
[2017-09-09] MEDS: VENLAFAXINE HCL XR 75 MG CAPXR PO SCH (07:50)
[2017-09-09] MEDS: PANTOprazole SOD 40 MG TAB PO SCH (07:50)
[2017-09-09] MEDS: FERROUS SULFATE 325 MG TAB PO SCH ×2 (07:51→21:28)
[2017-09-09] MEDS: AMIODARONE 200 MG TAB PO SCH (07:51)
[2017-09-09] MEDS: GUAIFENESIN 600 MG TABCR PO SCH ×2 (07:51→21:28)
[2017-09-09] MEDS: ATORVASTATIN 40 MG TAB PO SCH (07:51)
[2017-09-09] MEDS: ASPIRIN 81 MG ECTAB PO SCH (07:51)
[2017-09-09] MEDS: FUROSEMIDE 40 MG TAB PO SCH (07:52)
[2017-09-09] MEDS: VENLAFAXINE HCL XR 150 MG CAPXR PO SCH (07:52)
[2017-09-09] MEDS: LISINOPRIL 5 MG TAB PO SCH (07:53)
[2017-09-09] MEDS: CEFDINIR 300 MG CAP PO SCH ×2 (07:53→21:29)
[2017-09-09] MEDS: NYSTATIN SUSP 500,000 U/5 ML UDC PO SCH ×4 (07:54→21:30)
[2017-09-09] MEDS: DICLOFENAC SOD 1% GEL 100 GM TUBE EXT SCH ×4 (07:57→21:27)
[2017-09-09] MEDS: NYSTATIN POWDER 15GM BTL EXT SCH ×3 (07:58→21:34)
[2017-09-09] MEDS: INSULIN ASPART 100 UNITS/ML 3 ML PEN SC SCH ×4 (08:04→21:00)
[2017-09-09] MEDS: INSULIN GLARGINE SOLOSTAR 100 UNITS/ML 3 ML PEN SC SCH ×2 (08:05→21:36)
--- NOTE | 2017-09-09 08:47 | Cardiology Follow-Up ---
Subjective Date of Service: Sep 09, 2017. Pt evaluation today including: conversation w/ patient, physical exam, chart review, lab review, review of studies, review of inpatient medication list, conversation w/ attending History of Present Illness This morning patient claims feeling a little better. She states that her breathing is improved slightly. She no longer has any discomfort in the left precordial or chest area. [facility] and [facility]. No sense of palpitation. Social History Smoking Status: Former Smoker History of Alcohol Use: No Review of Systems Respiratory: No sputum Cardiac: No chest pain, No orthopnea, No PND No subjective fevers or chills but she did have notable diaphoresis the evening prior to her admission. She states she has had some swelling in her lower extremities in the recent past but lately they have been free of edema. She does not sleep well at night for unclear reasons, mostly restless leg syndrome. No overt orthopnea. Objective Vital Signs Past 12 Hours Date Time Temp Pulse Resp B/P (MAP) Pulse Ox O2 Delivery O2 Flow Rate FiO2 09/09/17 06:55 101 16 99 Nasal Cannula 4.0 09/09/17 04:00 97 Nasal Cannula 4.0 09/09/17 03:36 36.8 118 23 113/76 (88) 97 Nasal Cannula 4.0 09/09/17 01:58 88 16 96 Nasal Cannula 4.0 09/09/17 00:06 36.8 120 19 133/91 (105) 97 Nasal Cannula 4.0 09/09/17 00:01 97 Nasal Cannula 4.0 Last Recorded Weight-Kilograms: 19.700 Physical Exam The patient is alert and oriented. Mood and affect appeared normal. He answered all questions appropriately. Obese HEENT: Pupils are equal and reactive to light and accommodation. Extraocular movements are intact. The sclerae are anicteric. Neuro: Cranial nerves intact Neck: Patient's neck is supple. He has palpable carotid pulses bilaterally without bruits on auscultation. There is no evidence of jugular venous distention. The thyroid is not enlarged. Lungs: Severely reduced pulmonary excursion. Very distant breath sounds. Cardiac: Heart demonstrates an irregular rate and rhythm. Normal S1 and S2. No murmurs on examination. Pulses: The patient has palpable radial pulses bilaterally that are equal in intensity Extremities: There was no evidence of hypoperfusion. There is no cyanosis or clubbing. There is no edema. Skin: I did not appreciate any rashes on examination today. Data Laboratory Results: Last 24 Hours Test 09/08/17 11:42 09/08/17 16:48 09/08/17 17:40 09/08/17 20:33 Bedside Glucose 173 mg/dl 156 mg/dl 170 mg/dl Sodium Level 139 mmol/L Potassium Level 3.9 mmol/L Chloride Level 95 mmol/L Carbon Dioxide Level 39 mmol/L Anion Gap 5.0 mmol/L Blood Urea Nitrogen 29 mg/dl Creatinine 1.47 mg/dl Est Creatinine Clear Calc Drug Dose 41.1 ml/min Estimated GFR () 40.1 Estimated GFR (Non- 34.6 BUN/Creatinine Ratio 19.5 Random Glucose 194 mg/dl Calcium Level 8.5 mg/dl Magnesium Level 2.6 mg/dl Troponin I < 0.015 ng/ml Test 09/09/17 06:00 09/09/17 06:48 White Blood Count 10.28 K/uL Red Blood Count 3.70 M/uL Hemoglobin 10.4 g/dL Hematocrit 35.3 % Mean Corpuscular Volume 95.4 fL Mean Corpuscular Hemoglobin 28.1 pg Mean Corpuscular Hemoglobin Concent 29.5 g/dl Platelet Count 214 K/uL Mean Platelet Volume 10.3 fL Neutrophils (%) (Auto) 90.3 % Lymphocytes (%) (Auto) 4.6 % Monocytes (%) (Auto) 4.6 % Eosinophils (%) (Auto) 0.0 % Basophils (%) (Auto) 0.0 % Neutrophils # (Auto) 9.29 K/uL Lymphocytes # (Auto) 0.47 K/uL Monocytes # (Auto) 0.47 K/uL Eosinophils # (Auto) 0.00 K/uL Basophils # (Auto) 0.00 K/uL RDW Standard Deviation 54.4 fL RDW Coefficient of Variation 15.6 % Immature Granulocyte % (Auto) 0.5 % Immature Granulocyte # (Auto) 0.05 K/uL Prothrombin Time 39.6 SECONDS Prothromb Time International Ratio 3.9 Sodium Level 141 mmol/L Potassium Level 3.8 mmol/L Chloride Level 99 mmol/L Carbon Dioxide Level 40 mmol/L Anion Gap 2.0 mmol/L Blood Urea Nitrogen 29 mg/dl Creatinine 1.03 mg/dl Est Creatinine Clear Calc Drug Dose 14.7 ml/min Estimated GFR () 61.6 Estimated GFR (Non- 53.1 BUN/Creatinine Ratio 28.0 Random Glucose 172 mg/dl Calcium Level 8.7 mg/dl Magnesium Level 2.8 mg/dl Bedside Glucose 162 mg/dl Telemetry reviewed: Atrial fibrillation with brief conversion to sinus rhythm. Non atrial fibrillation with higher ventricular rates Assessment and Plan 1. Atrial fibrillation: Paroxysmal. A brief conversion last night to sinus rhythm. She seems to be tolerating the arrhythmia and higher ventricular rate reasonably well. Hopefully she will convert back to sinus rhythm again. She has not had documented atrial fibrillation for many years. I think increasing her diltiazem is reasonable and I ordered a higher dose for this morning. I will also increase her amiodarone and give her an extra dose of amiodarone today. For worsening symptoms of dyspnea or hemodynamic changes we could reinstitute diltiazem infusion. Right now she appears to be quite stable. If she continues to have atrial fibrillation and is ready for discharge we could consider cardioversion as she has been adequately anticoagulated for an extended period. 2. Mitral stenosis: The patient is likely to have recurrent episodes of atrial fibrillation given this form of valve disease. She is also known to have severe left atrial dilation. In the long run her antiarrhythmic therapy is likely to be inadequate and will have to adopt a more aggressive rate control strategy. 3. Dyspnea: Primarily related to COPD.
[2017-09-09] MEDS ORDERED: AMIODARONE 200 MG TAB PO ONE (09:00)
[2017-09-09] MEDS: DILTIAZEM HCL 120 MG EXT REL CAP PO SCH (09:30)
--- NOTE | 2017-09-09 19:13 | Hospitalist Progress Note ---
Hospitalist Progress Note Date of Service Sep 09, 2017. Subjective Pt evaluation today including: conversation w/ patient, conversation w/ family , conversation w/ product consultant Remains in rapid atrial fibrillation and flutter in the 120s when I saw her. Telemetry with rates as high as 160s at times, some PVCs. Discussed the case with cardiology today. Patient no longer has any chest pressure. She does feel more short of breath ever since she has been in the rapid rhythm. Otherwise no complaints. All Other Systems: Reviewed and Negative Objective Vital Signs Date Time Temp Pulse Resp B/P (MAP) Pulse Ox O2 Delivery O2 Flow Rate FiO2 09/09/17 15:40 36.5 105 20 126/93 (104) 97 Nasal Cannula 4.0 09/09/17 15:35 Nasal Cannula 4.0 09/09/17 15:00 98 16 98 Nasal Cannula 4.0 09/09/17 12:20 Nasal Cannula 4.0 09/09/17 11:12 37.1 121 20 150/76 (100) 93 Nasal Cannula 4.0 09/09/17 08:10 Nasal Cannula 4.0 09/09/17 07:35 36.7 112 20 140/92 (108) 95 Nasal Cannula 4.0 09/09/17 06:55 101 16 99 Nasal Cannula 4.0 09/09/17 04:00 97 Nasal Cannula 4.0 09/09/17 03:36 36.8 118 23 113/76 (88) 97 Nasal Cannula 4.0 09/09/17 01:58 88 16 96 Nasal Cannula 4.0 09/09/17 00:06 36.8 120 19 133/91 (105) 97 Nasal Cannula 4.0 09/09/17 00:01 97 Nasal Cannula 4.0 09/08/17 20:00 96 Nasal Cannula 4.0 09/08/17 19:41 37.2 93 16 121/56 (77) 96 Nasal Cannula 4.0 09/08/17 19:14 88 16 98 Nasal Cannula 4.0 Physical Exam General Appearance: WD/WN, no apparent distress, + obese Eyes: normal inspection, sclerae normal ENT: hearing grossly normal, pharynx normal Neck: trachea midline Respiratory/Chest: no respiratory distress, no accessory muscle use, + decreased breath sounds (Diminished throughout with mild expiratory wheezes) Cardiovascular: no murmur, + tachycardia, + irregularly irregular Abdomen: normal bowel sounds, non tender, soft (And obese) Extremities: non-tender, normal inspection, no pedal edema, no calf tenderness Neurologic/Psychiatric: alert, normal mood/affect, oriented x 3 Skin: normal color, warm/dry, no rash Laboratory Results Last 24 Hours Test 09/08/17 20:33 09/09/17 06:00 09/09/17 06:48 09/09/17 11:11 Bedside Glucose 170 mg/dl 162 mg/dl 191 mg/dl White Blood Count 10.28 K/uL Red Blood Count 3.70 M/uL Hemoglobin 10.4 g/dL Hematocrit 35.3 % Mean Corpuscular Volume 95.4 fL Mean Corpuscular Hemoglobin 28.1 pg Mean Corpuscular Hemoglobin Concent 29.5 g/dl Platelet Count 214 K/uL Mean Platelet Volume 10.3 fL Neutrophils (%) (Auto) 90.3 % Lymphocytes (%) (Auto) 4.6 % Monocytes (%) (Auto) 4.6 % Eosinophils (%) (Auto) 0.0 % Basophils (%) (Auto) 0.0 % Neutrophils # (Auto) 9.29 K/uL Lymphocytes # (Auto) 0.47 K/uL Monocytes # (Auto) 0.47 K/uL Eosinophils # (Auto) 0.00 K/uL Basophils # (Auto) 0.00 K/uL RDW Standard Deviation 54.4 fL RDW Coefficient of Variation 15.6 % Immature Granulocyte % (Auto) 0.5 % Immature Granulocyte # (Auto) 0.05 K/uL Prothrombin Time 39.6 SECONDS Prothromb Time International Ratio 3.9 Sodium Level 141 mmol/L Potassium Level 3.8 mmol/L Chloride Level 99 mmol/L Carbon Dioxide Level 40 mmol/L Anion Gap 2.0 mmol/L Blood Urea Nitrogen 29 mg/dl Creatinine 1.03 mg/dl Est Creatinine Clear Calc Drug Dose 14.7 ml/min Estimated GFR () 61.6 Estimated GFR (Non- 53.1 BUN/Creatinine Ratio 28.0 Random Glucose 172 mg/dl Calcium Level 8.7 mg/dl Magnesium Level 2.8 mg/dl Test 09/09/17 16:32 Bedside Glucose 90 mg/dl Assessment and Plan Ms. Church is a 77 year old female with hx of chronic diastolic CHF with preserved EF, paroxysmal atrial fibrillation on Coumadin, history of TIA/CVA, history of GI bleed, anxiety disorder, chronic respiratory failure/O2 dependent COPD (on 4L of oxygen at home), obesity hypoventilation syndrome on nocturnal BiPAP, DM 2, HTN, and hyperlipidemia who presented with significant shortness of breath and acute on chronic hypoxic respiratory failure secondary to acute exacerbation of COPD. 1. COPD with exacerbation -improving, however little more short of breath in the last 24 hours likely secondary to current rapid atrial fibrillation -Continue steroids at Solu-Medrol 60 mg's IV q 12 hours and wean down tomorrow -Cont xopenex/atrovent nebs q6h. -Cont mucinex and incentive spirometry. -Continue inhaled corticosteroid -Cont NC O2 during day; BIPAP at HS. -Cont omnicef, day #4. 2. LOGAN - BIPAP HS/naps. Not tolerating well at night -Continue to encourage BiPAP 3. Acute on chronic hypoxic/hypercarbic respiratory failure -when came in was on 87% on her home O2 and was up to 6 L, now is back down and stable on home O2 amount of 4 L nasal cannula 4. proteus UTI - received rocephin day 1, then omnicef. -Cont omnicef to complete total of 7 days of abx. Today's day #4 of 7 5. morbid obesity with BMI 38 6. DVT proph - coumadin. Daily INR. INR remains supratherapeutic today. -Continue to hold Coumadin -Follow PT/INR daily 7. Paroxysmal atrial fibrillation with rapid ventricular response-previously in NSR on amiodarone and then transferred to medical. Then on 09/08, she went back in rapid atrial fibrillation with relatively low blood pressure and left- sided chest pressure. ECG without ischemic changes but with rapid atrial fibrillation in the 120s. Troponin negative -Remains in rapid atrial fibrillation and flutter -Continue telemetry monitoring -Cardiology give a loading dose of amiodarone p.o. today and increase the daily dose to 200 mg daily -Cont coumadin for anticoagulation but holding today for supratherapeutic INR as above -Increased p.o. diltiazem to 240 mg once daily -Appreciate cardiology consultation 8. intertrigo - nystatin powder TID. 9. uncontrolled T2DM -with hyperglycemia, on long-term insulin-sugars high due to steroids -Continue Lantus and sliding scale and adjust as needed 10. iron def anemia - trans sat is low, ferritin also low-normal. Restarted ferrous sulfate 325mg BID. Consider outpatient GI w/u for this. Could obtain a fecal occult blood while here to be complete. H/H stable on cbc. 11. left distal leg pain - check tib-fib x-rays, r/o occult stress fracture, etc. and x-rays negative PT, OT evals -Disposition-remain on telemetry Full code
[2017-09-09] MEDS: TRAZODONE HCL 100 MG TAB PO SCH (21:27)
[2017-09-09] MEDS: PRAMIPEXOLE DIHYDROCHLORIDE 0.5 MG TAB PO SCH (21:29)
[2017-09-09] MEDS: MIRTAZAPINE TAB 15 MG TAB PO SCH (21:30)
[2017-09-10] VITALS (9 sets, daily range): BP systolic 93–144; BP diastolic 58–86; PULSE 63–117; TEMP 36.6–37.3; O2SAT 91–98
[2017-09-10] MEDS: IPRATROPIUM BROMIDE NEB SOLN 0.02% 2.5 ML VIAL INH SCH ×4 (02:21→19:01)
[2017-09-10] MEDS: LEVALBUTEROL 1.25MG/3ML NEB INH SCH ×4 (02:21→19:01)
[2017-09-10] MEDS: METHYLPREDNISOLONE IV 60 MG in SYRINGE 0 ML IV SCH ×2 (03:54→15:59)
[2017-09-10 07:54] LABS: INR 3.6 (0.9-1.1)
[2017-09-10 07:59] LABS: CALCIUM 8.4 mg/dl (8.5-10.1); CREATININE 1.14 mg/dl (0.60-1.20); POTASSIUM 4.3 mmol/L (3.5-5.1)
[2017-09-10] MEDS: NYSTATIN POWDER 15GM BTL EXT SCH ×3 (08:01→21:32)
[2017-09-10] MEDS: LACTOBACILLUS ACIDOPHILUS (FLORANEX) TAB PO SCH ×3 (08:02→17:06)
[2017-09-10] MEDS: PANTOprazole SOD 40 MG TAB PO SCH (08:02)
[2017-09-10] MEDS: ATORVASTATIN 40 MG TAB PO SCH (08:02)
[2017-09-10] MEDS: GUAIFENESIN 600 MG TABCR PO SCH ×2 (08:03→21:29)
[2017-09-10] MEDS: VENLAFAXINE HCL XR 150 MG CAPXR PO SCH (08:03)
[2017-09-10] MEDS: CEFDINIR 300 MG CAP PO SCH ×2 (08:03→21:28)
[2017-09-10] MEDS: VENLAFAXINE HCL XR 75 MG CAPXR PO SCH (08:03)
[2017-09-10] MEDS: DILTIAZEM HCL 120 MG EXT REL CAP PO SCH (08:03)
[2017-09-10] MEDS: DICLOFENAC SOD 1% GEL 100 GM TUBE EXT SCH ×4 (08:04→21:00)
[2017-09-10] MEDS: AMIODARONE 200 MG TAB PO SCH (08:04)
[2017-09-10] MEDS: ASPIRIN 81 MG ECTAB PO SCH (08:04)
[2017-09-10] MEDS: FERROUS SULFATE 325 MG TAB PO SCH ×2 (08:04→21:28)
[2017-09-10] MEDS: BusPIRone 15 MG TAB PO SCH ×3 (08:04→21:28)
[2017-09-10] MEDS: FUROSEMIDE 40 MG TAB PO SCH (08:05)
[2017-09-10] MEDS: NYSTATIN SUSP 500,000 U/5 ML UDC PO SCH ×4 (08:05→21:27)
[2017-09-10] MEDS: INSULIN ASPART 100 UNITS/ML 3 ML PEN SC SCH ×4 (08:12→21:36)
[2017-09-10] MEDS: INSULIN GLARGINE SOLOSTAR 100 UNITS/ML 3 ML PEN SC SCH ×2 (08:13→21:37)
[2017-09-10] MEDS: LISINOPRIL 5 MG TAB PO SCH (08:29)
[2017-09-10] MEDS: BUDESONIDE 0.25 MG/2 ML VIAL (PULMICORT) INH SCH ×2 (14:57→19:00)
--- NOTE | 2017-09-10 17:52 | Cardiology Follow-Up ---
Subjective Date of Service: Sep 10, 2017. Pt evaluation today including: conversation w/ patient, physical exam, chart review, lab review, review of studies, review of inpatient medication list, conversation w/ attending History of Present Illness This afternoon the patient seems to have slightly better breathing. She continues to have some irritation of her throat. She has not been ambulatory to any significant degree. She has no symptoms of chest discomfort. No sense of palpitation. Social History Smoking Status: Former Smoker History of Alcohol Use: No Review of Systems Respiratory: No sputum Cardiac: No chest pain, No orthopnea, No PND No subjective fevers or chills but she did have notable diaphoresis the evening prior to her admission. She states she has had some swelling in her lower extremities in the recent past but lately they have been free of edema. She does not sleep well at night for unclear reasons, mostly restless leg syndrome. No overt orthopnea. Objective Vital Signs Past 12 Hours Date Time Temp Pulse Resp B/P (MAP) Pulse Ox O2 Delivery O2 Flow Rate FiO2 09/10/17 16:00 Nasal Cannula 4.0 09/10/17 15:58 36.6 111 22 144/69 (94) 97 Nasal Cannula 3.0 Humidified Oxygen 09/10/17 15:08 83 24 95 Nasal Cannula 4.0 09/10/17 12:10 Nasal Cannula 4.0 09/10/17 11:54 36.6 114 20 125/68 (87) 91 09/10/17 08:20 Nasal Cannula 4.0 09/10/17 07:58 37.2 113 20 127/58 (81) 94 09/10/17 07:45 63 24 97 Nasal Cannula 4.0 Last Recorded Weight-Kilograms: 110.700 Intake & Output 8-Hour Column 09/10/17 09/10/17 09/11/17 15:59 23:59 07:59 Intake Total 910 ml Balance 910 ml 24-Hour Column 09/11/17 07:59 Intake Total 910 ml Balance 910 ml Physical Exam The patient is alert and oriented. Mood and affect appeared normal. He answered all questions appropriately. Obese HEENT: Pupils are equal and reactive to light and accommodation. Extraocular movements are intact. The sclerae are anicteric. Neuro: Cranial nerves intact Neck: Patient's neck is supple. He has palpable carotid pulses bilaterally without bruits on auscultation. There is no evidence of jugular venous distention. The thyroid is not enlarged. Lungs: Severely reduced pulmonary excursion. Very distant breath sounds. Cardiac: Heart demonstrates an irregular rate and rhythm. Normal S1 and S2. No murmurs on examination. Pulses: The patient has palpable radial pulses bilaterally that are equal in intensity Extremities: There was no evidence of hypoperfusion. There is no cyanosis or clubbing. There is no edema. Skin: I did not appreciate any rashes on examination today. Data Laboratory Results: Last 24 Hours Test 09/09/17 20:07 09/10/17 06:42 09/10/17 07:06 09/10/17 11:22 Bedside Glucose 155 mg/dl 191 mg/dl 201 mg/dl Prothrombin Time 37.0 SECONDS Prothromb Time International Ratio 3.6 Sodium Level 140 mmol/L Potassium Level 4.3 mmol/L Chloride Level 98 mmol/L Carbon Dioxide Level 40 mmol/L Anion Gap 2.0 mmol/L Blood Urea Nitrogen 33 mg/dl Creatinine 1.14 mg/dl Est Creatinine Clear Calc Drug Dose 53.7 ml/min Estimated GFR () 54.5 Estimated GFR (Non- 47.0 BUN/Creatinine Ratio 28.6 Random Glucose 202 mg/dl Calcium Level 8.4 mg/dl Magnesium Level 2.7 mg/dl Test 09/10/17 16:24 Bedside Glucose 75 mg/dl Telemetry reviewed: Brief conversion to sinus rhythm and return to atrial fibrillation Assessment and Plan 1. Atrial fibrillation: Persistent. Overall rate control suboptimal but improved. I will give her an extra dose of diltiazem tonight. Also give her an extra dose of amiodarone in the hopes of maintaining any conversion that she has. Her pulmonary status is slowly improving. At some point cardioversion could be considered if she maintains atrial fibrillation. 2. Mitral stenosis: The patient is likely to have recurrent episodes of atrial fibrillation given this form of valve disease. She is also known to have severe left atrial dilation. In the long run her antiarrhythmic therapy is likely to be inadequate and will have to adopt a more aggressive rate control strategy. 3. Dyspnea: Primarily related to COPD.
[2017-09-10] MEDS ORDERED: DILTIAZEM HCL 30 MG TAB PO ONE (18:00)
[2017-09-10] MEDS ORDERED: AMIODARONE 200 MG TAB PO ONE (18:00)
--- NOTE | 2017-09-10 18:54 | Hospitalist Progress Note ---
Hospitalist Progress Note Date of Service Sep 10, 2017. Subjective Pt evaluation today including: conversation w/ patient, conversation w/ device sales consultant (Cardiology) Patient did feel less short of breath this morning when she was in a normal sinus rhythm, then back in rapid atrial fibrillation today at 1337 and now feels short of breath again. No other concerns except still constipated. All Other Systems: Reviewed and Negative Objective Vital Signs Date Time Temp Pulse Resp B/P (MAP) Pulse Ox O2 Delivery O2 Flow Rate FiO2 09/10/17 16:00 Nasal Cannula 4.0 09/10/17 15:58 36.6 111 22 144/69 (94) 97 Nasal Cannula 3.0 Humidified Oxygen 09/10/17 15:08 83 24 95 Nasal Cannula 4.0 09/10/17 12:10 Nasal Cannula 4.0 09/10/17 11:54 36.6 114 20 125/68 (87) 91 09/10/17 08:20 Nasal Cannula 4.0 09/10/17 07:58 37.2 113 20 127/58 (81) 94 09/10/17 07:45 63 24 97 Nasal Cannula 4.0 09/10/17 04:00 Nasal Cannula 4.0 09/10/17 03:30 36.7 113 20 114/86 (95) 98 Nasal Cannula 4.0 09/10/17 02:21 117 26 96 Nasal Cannula 4.0 09/10/17 00:12 Nasal Cannula 4.0 09/09/17 23:35 37.0 119 20 125/82 (96) 98 4.0 09/09/17 20:00 95 Nasal Cannula 4.0 09/09/17 19:39 37.0 116 24 125/82 (96) 95 Nasal Cannula 4.0 09/09/17 19:15 88 22 96 Nasal Cannula 4.0 Physical Exam General Appearance: WD/WN, no apparent distress, + obese Eyes: normal inspection, sclerae normal ENT: hearing grossly normal Neck: trachea midline Respiratory/Chest: no respiratory distress, no accessory muscle use, + decreased breath sounds (Diminished throughout, but less wheezing today, no crackles) Cardiovascular: + irregularly irregular (With mild tachycardia) Abdomen: normal bowel sounds, non tender, soft Extremities: non-tender, normal inspection, no pedal edema, no calf tenderness Neurologic/Psychiatric: alert, normal mood/affect, oriented x 3 Skin: normal color, warm/dry, no rash Laboratory Results Last 24 Hours Test 09/09/17 20:07 09/10/17 06:42 09/10/17 07:06 09/10/17 11:22 Bedside Glucose 155 mg/dl 191 mg/dl 201 mg/dl Prothrombin Time 37.0 SECONDS Prothromb Time International Ratio 3.6 Sodium Level 140 mmol/L Potassium Level 4.3 mmol/L Chloride Level 98 mmol/L Carbon Dioxide Level 40 mmol/L Anion Gap 2.0 mmol/L Blood Urea Nitrogen 33 mg/dl Creatinine 1.14 mg/dl Est Creatinine Clear Calc Drug Dose 53.7 ml/min Estimated GFR () 54.5 Estimated GFR (Non- 47.0 BUN/Creatinine Ratio 28.6 Random Glucose 202 mg/dl Calcium Level 8.4 mg/dl Magnesium Level 2.7 mg/dl Test 09/10/17 16:24 Bedside Glucose 75 mg/dl Assessment and Plan Ms. Church is a 77 year old female with hx of chronic diastolic CHF with preserved EF, paroxysmal atrial fibrillation on Coumadin, history of TIA/CVA, history of GI bleed, anxiety disorder, chronic respiratory failure/O2 dependent COPD (on 4L of oxygen at home), obesity hypoventilation syndrome on nocturnal BiPAP, DM 2, HTN, and hyperlipidemia who presented with significant shortness of breath and acute on chronic hypoxic respiratory failure secondary to acute exacerbation of COPD. 1. COPD with exacerbation -improving, however little more short of breath in the last 2 days that seems to correlate with when she is in rapid atrial fibrillation -DC IV Solu-Medrol and switch to p.o. prednisone 60 mg once daily starting tomorrow -Cont xopenex/atrovent nebs q6h. -Cont mucinex and incentive spirometry. -Continue inhaled corticosteroid -Cont NC O2 during day; BIPAP at HS. -Cont omnicef, day #5. 2. LOGAN - BIPAP HS/naps. Not tolerating well at night -Continue to encourage BiPAP 3. Acute on chronic hypoxic/hypercarbic respiratory failure -when came in was on 87% on her home O2 and was up to 6 L, now is back down and stable on home O2 amount of 4 L nasal cannula 4. proteus UTI - received rocephin day 1, then omnicef. -Cont omnicef to complete total of 7 days of abx. Today's day #5 of 7 5. morbid obesity with BMI 38 6. DVT proph - coumadin. Daily INR. INR remains supratherapeutic today. -Continue to hold Coumadin -Follow PT/INR daily 7. Paroxysmal atrial fibrillation with rapid ventricular response-previously in NSR on amiodarone and then transferred to medical. Then on 09/08, she went back in rapid atrial fibrillation with relatively low blood pressure and left- sided chest pressure. ECG without ischemic changes but with rapid atrial fibrillation in the 120s. Troponin negative -Continues to be in and out of rapid atrial fibrillation and flutter -Continue telemetry monitoring -Cardiology give a loading dose of amiodarone p.o. today and increase the daily dose to 200 mg daily on 09/09, given extra dose of amiodarone today along with an extra dose of p.o. diltiazem 30 mg -Cont coumadin for anticoagulation but holding today for supratherapeutic INR as above -Continue the increased p.o. diltiazem at 240 mg once daily -Appreciate cardiology consultation 8. intertrigo - nystatin powder TID. 9. uncontrolled T2DM -with hyperglycemia, on long-term insulin-sugars high due to steroids. Hyperglycemia somewhat improved today. -Continue Lantus and sliding scale and adjust as needed 10. iron def anemia - trans sat is low, ferritin also low-normal. Restarted ferrous sulfate 325mg BID. Consider outpatient GI w/u for this. Could obtain a fecal occult blood while here to be complete. H/H stable on cbc. 11. left distal leg pain - check tib-fib x-rays, r/o occult stress fracture, etc. and x-rays negative PT, OT evals -Disposition-remain on telemetry Full code
[2017-09-10] MEDS ORDERED: BISACODYL 5 MG TABEC PO ONE (19:00)
[2017-09-10] MEDS ORDERED: BISACODYL 5 MG TABEC ONE (21:26)
[2017-09-10] MEDS: MIRTAZAPINE TAB 15 MG TAB PO SCH (21:28)
[2017-09-10] MEDS: TRAZODONE HCL 100 MG TAB PO SCH (21:29)
[2017-09-10] MEDS: PRAMIPEXOLE DIHYDROCHLORIDE 0.5 MG TAB PO SCH (21:29)
[2017-09-11] VITALS (10 sets, daily range): BP systolic 135–152; BP diastolic 53–64; PULSE 83–116; TEMP 36.7–37; O2SAT 95–99
[2017-09-11] MEDS: LEVALBUTEROL 1.25MG/3ML NEB INH SCH ×4 (01:49→19:48)
[2017-09-11] MEDS: IPRATROPIUM BROMIDE NEB SOLN 0.02% 2.5 ML VIAL INH SCH ×4 (01:49→19:48)
[2017-09-11 06:42] LABS: HEMATOCRIT 35.8 % (37-47); HEMOGLOBIN 10.6 g/dL (12.0-16.0); LYMPH % 3.6 %; LYMPH ABS # 0.38 K/uL (1.2-3.4); MEAN CORPUSCULAR HEMOGLOBIN 28.4 pg (25-34); MEAN CORPUSCULAR HGB CONC 29.6 g/dl (32-36); MEAN PLATELET VOLUME 10.9 fL (7.4-10.4); MONO % 5.5 %; MONO ABS # 0.58 K/uL (0.11-0.59); NEUT ABS # 9.54 K/uL (1.4-6.5); NUCLEATED RED BLOOD CELL ABS 0.03 K/uL (0-0); PLATELET COUNT 229 K/uL (130-400); RED CELL DISTRIBUTION WIDTH CV 15.5 % (11.5-14.5); RED CELL DISTRIBUTION WIDTH SD 53.7 fL (36.4-46.3)
[2017-09-11] MEDS: BUDESONIDE 0.25 MG/2 ML VIAL (PULMICORT) INH SCH ×2 (06:59→19:57)
[2017-09-11 07:06] LABS: CALCIUM 8.3 mg/dl (8.5-10.1); POTASSIUM 4.2 mmol/L (3.5-5.1)
[2017-09-11 07:29] LABS: INR 3.7 (0.9-1.1)
[2017-09-11] MEDS: DICLOFENAC SOD 1% GEL 100 GM TUBE EXT SCH ×4 (07:52→20:36)
[2017-09-11] MEDS: DOCUSATE SODIUM/SENNA 50/8.6MG TAB PO SCH (07:53)
[2017-09-11] MEDS: ASPIRIN 81 MG ECTAB PO SCH (07:53)
[2017-09-11] MEDS: LISINOPRIL 5 MG TAB PO SCH (07:54)
[2017-09-11] MEDS: AMIODARONE 200 MG TAB PO SCH (07:54)
[2017-09-11] MEDS: FUROSEMIDE 40 MG TAB PO SCH (07:54)
[2017-09-11] MEDS: LACTOBACILLUS ACIDOPHILUS (FLORANEX) TAB PO SCH ×3 (07:54→17:09)
[2017-09-11] MEDS: DILTIAZEM HCL 120 MG EXT REL CAP PO SCH (07:54)
[2017-09-11] MEDS: PANTOprazole SOD 40 MG TAB PO SCH (07:54)
[2017-09-11] MEDS: ATORVASTATIN 40 MG TAB PO SCH (07:55)
[2017-09-11] MEDS: FERROUS SULFATE 325 MG TAB PO SCH ×2 (07:55→20:38)
[2017-09-11] MEDS: CEFDINIR 300 MG CAP PO SCH ×2 (07:55→20:41)
[2017-09-11] MEDS: VENLAFAXINE HCL XR 150 MG CAPXR PO SCH (07:55)
[2017-09-11] MEDS: VENLAFAXINE HCL XR 75 MG CAPXR PO SCH (07:55)
[2017-09-11] MEDS: NYSTATIN SUSP 500,000 U/5 ML UDC PO SCH ×4 (07:56→20:36)
[2017-09-11] MEDS: GUAIFENESIN 600 MG TABCR PO SCH ×2 (07:56→20:38)
[2017-09-11] MEDS: BusPIRone 15 MG TAB PO SCH ×3 (07:56→20:37)
[2017-09-11] MEDS: INSULIN ASPART 100 UNITS/ML 3 ML PEN SC SCH ×4 (08:01→21:36)
[2017-09-11] MEDS: INSULIN GLARGINE SOLOSTAR 100 UNITS/ML 3 ML PEN SC SCH (08:02)
[2017-09-11] MEDS: MICONAZOLE NITRATE POWDER 43 GM EXT PRN (08:07)
[2017-09-11] MEDS: NYSTATIN POWDER 15GM BTL EXT SCH ×3 (08:07→20:36)
--- NOTE | 2017-09-11 16:44 | PROGRESS NOTE ---
DATE: 09/11/2017 SUBJECTIVE: The patient was seen by me this morning in our telemetry unit room. She states that she slept well last night. It was the first time in several days that she did not feel short of breath. She does complain of dyspnea with minimal exertion. No dyspnea at rest. She had no orthopnea or PND last night. She denies any palpitations. No lightheadedness or syncope. No chest pain or other anginal type pains. No abdominal pain. No leg pain. No cerebrovascular complaints. No bleeding complaints. CURRENT MEDICATIONS: Prednisone 60 mg daily a.m., senna/docusate sodium 1 tab daily, amiodarone 200 mg daily, Mirapex 1 mg at bedtime, Lantus insulin 20 units subQ daily a.m., ferrous sulfate 325 mg b.i.d., Voltaren gel 1 application q.i.d., cefdinir 300 mg p.o. b.i.d., guaifenesin 1200 mg p.o. q. 12 hours, Nystatin powder 1 application t.i.d., Xopenex nebulizer 1.25 mg q. 6 hours, aspirin 81 mg daily, atorvastatin 80 mg daily, furosemide 40 mg daily, lisinopril 5 mg daily, pantoprazole 40 mg daily, venlafaxine 75 mg capsule and 150 mg capsule daily, lactobacillus acidophilus 4 tabs p.o. t.i.d., BuSpar mg p.o. t.i.d., Lantus insulin 25 units subcutaneous daily p.m., Atrovent nebulizer 0.5 mg q. 6 hours, Remeron 30 mg p.o. at bedtime, trazodone 200 mg p.o. at bedtime, Nystatin 5 mL p.o. q.i.d., Pulmicort 0.25 mg inhaled b.i.d., and several p.r.n. medications. ALLERGIES AND ADVERSE DRUG REACTIONS: CODEINE, MORPHINE, THEOPHYLLINE. Monitor history this morning reviewed by me. Sinus rhythm. Rates in the 90s. PHYSICAL EXAMINATION: VITAL SIGNS: This morning with oral temperature 36.9, pulse 83, blood pressure 152/53, pulse oximetry on 4 L per minute nasal cannula oxygen 95%. GENERAL APPEARANCE: Shows to be lying in bed. No distress. NECK: No jugular venous distention. LUNGS: Diminished breath sounds in all lung allen. Decreased air movement in all lung allen. Scant inspiratory wheeze, right base. No rales or rhonchi. HEART: Distant heart sounds. Regular rate and rhythm. No murmur, S3, or rub. ABDOMEN: Soft and nontender. No palpable masses or organomegaly. No bruits. EXTREMITIES: No pretibial edema. No cyanosis or clubbing. NEUROLOGIC: Alert and oriented x3. Motor grossly intact. PSYCHIATRIC: Affect normal. LABORATORY DATA: Today with INR 3.7. Metabolic profile - sodium 142, potassium 4.2, chloride 99, carbon dioxide 40, BUN 32, creatinine 1.00, random glucose 170. Magnesium 2.6. CBC with WBC 10.6, hemoglobin 10.6, hematocrit 35.8, platelet count 229. ASSESSMENT: 1. Paroxysmal atrial fibrillation. At the time of my visit, she was in sinus rhythm. Her amiodarone was increased yesterday. 2. Normal blood pressure. 3. Severe chronic obstructive pulmonary disease. Acute on chronic respiratory failure. 4. No anginal complaints. 5. No evidence of congestive heart failure on exam. 6. Mildly elevated systolic blood pressure this morning. 7. Supertherapeutic INR. RECOMMENDATIONS: 1. Continue current doses of amiodarone and diltiazem. Continue current dose of lisinopril. Continue oral diuretic. She does have a component of prerenal azotemia. Her creatinine is normal. 2. Continue atorvastatin. 3. Resume warfarin when INR becomes in the therapeutic range 2-3. 4. Continued management of her COPD exacerbation by the hospitalist service.
--- NOTE | 2017-09-11 17:21 | Hospitalist Progress Note ---
Hospitalist Progress Note Date of Service Sep 11, 2017. Subjective Pt evaluation today including: conversation w/ patient Patient feeling much less short of breath today. She converted back to normal sinus rhythm at 5:00 this morning and has remained in that all day. She has been ambulating around the room without significant dyspnea on exertion over her baseline. She is not coughing. She is finally moving her bowels. She is tolerating p.o. All Other Systems: Reviewed and Negative Objective Vital Signs Date Time Temp Pulse Resp B/P (MAP) Pulse Ox O2 Delivery O2 Flow Rate FiO2 09/11/17 16:00 Nasal Cannula 4.0 09/11/17 14:06 95 18 95 Nasal Cannula 4.0 09/11/17 12:00 Nasal Cannula 4.0 Humidified Oxygen 09/11/17 11:03 36.9 93 20 142/64 (90) 99 Nasal Cannula 4.0 09/11/17 08:09 36.9 105 18 152/53 (86) 95 Nasal Cannula 4.0 09/11/17 08:00 Nasal Cannula 4.0 Humidified Oxygen 09/11/17 07:02 83 18 96 Nasal Cannula 4.0 09/11/17 04:00 Nasal Cannula 4.0 Humidified Oxygen 09/11/17 03:52 36.9 116 19 135/60 (85) 97 Nasal Cannula 4.0 09/11/17 01:49 114 20 99 Nasal Cannula 4.0 09/11/17 00:02 Nasal Cannula 4.0 Humidified Oxygen 09/10/17 23:57 36.7 115 18 119/74 (89) 98 Nasal Cannula 4.0 09/10/17 20:00 Nasal Cannula 4.0 Humidified Oxygen 09/10/17 19:43 37.3 109 24 93/77 (82) 96 Nasal Cannula Physical Exam General Appearance: WD/WN, no apparent distress, + obese Eyes: normal inspection, sclerae normal ENT: hearing grossly normal Neck: trachea midline Respiratory/Chest: no respiratory distress, no accessory muscle use, + decreased breath sounds (Throughout, no wheezes or crackles) Cardiovascular: regular rate, rhythm, no murmur, + pertinent finding (Trace pitting edema in the legs bilaterally) Abdomen: normal bowel sounds, non tender, soft Extremities: non-tender, no calf tenderness Neurologic/Psychiatric: alert, normal mood/affect, oriented x 3 Skin: normal color, warm/dry, no rash Laboratory Results Last 24 Hours Test 09/10/17 20:15 09/11/17 05:54 09/11/17 06:46 09/11/17 11:09 Bedside Glucose 288 mg/dl 174 mg/dl 236 mg/dl White Blood Count 10.60 K/uL Red Blood Count 3.73 M/uL Hemoglobin 10.6 g/dL Hematocrit 35.8 % Mean Corpuscular Volume 96.0 fL Mean Corpuscular Hemoglobin 28.4 pg Mean Corpuscular Hemoglobin Concent 29.6 g/dl Platelet Count 229 K/uL Mean Platelet Volume 10.9 fL Neutrophils (%) (Auto) 90.0 % Lymphocytes (%) (Auto) 3.6 % Monocytes (%) (Auto) 5.5 % Eosinophils (%) (Auto) 0.0 % Basophils (%) (Auto) 0.0 % Neutrophils # (Auto) 9.54 K/uL Lymphocytes # (Auto) 0.38 K/uL Monocytes # (Auto) 0.58 K/uL Eosinophils # (Auto) 0.00 K/uL Basophils # (Auto) 0.00 K/uL RDW Standard Deviation 53.7 fL RDW Coefficient of Variation 15.5 % Immature Granulocyte % (Auto) 0.9 % Immature Granulocyte # (Auto) 0.10 K/uL Nucleated RBC Absolute Count (auto) 0.03 K/uL Nucleated Red Blood Cells % 0.3 % Prothrombin Time 37.4 SECONDS Prothromb Time International Ratio 3.7 Sodium Level 142 mmol/L Potassium Level 4.2 mmol/L Chloride Level 99 mmol/L Carbon Dioxide Level 40 mmol/L Anion Gap 3.0 mmol/L Blood Urea Nitrogen 32 mg/dl Creatinine 1.00 mg/dl Est Creatinine Clear Calc Drug Dose 61.2 ml/min Estimated GFR () 63.8 Estimated GFR (Non- 55.1 BUN/Creatinine Ratio 32.3 Random Glucose 170 mg/dl Calcium Level 8.3 mg/dl Magnesium Level 2.6 mg/dl Test 09/11/17 16:17 Bedside Glucose 108 mg/dl Assessment and Plan Ms. Church is a 77 year old female with hx of chronic diastolic CHF with preserved EF, paroxysmal atrial fibrillation on Coumadin, history of TIA/CVA, history of GI bleed, anxiety disorder, chronic respiratory failure/O2 dependent COPD (on 4L of oxygen at home), obesity hypoventilation syndrome on nocturnal BiPAP, DM 2, HTN, and hyperlipidemia who presented with significant shortness of breath and acute on chronic hypoxic respiratory failure secondary to acute exacerbation of COPD. 1. COPD with exacerbation -improving, was more short of breath that seems to correlate with when she is in rapid atrial fibrillation which is now resolved and she is in normal sinus rhythm -Received IV Solu-Medrol and now on prednisone 60 mg once daily and will taper down slowly -Cont xopenex/atrovent nebs q6h. -Cont mucinex and incentive spirometry. -Continue inhaled corticosteroid -Cont NC O2 during day; BIPAP at HS if tolerated. -Cont omnicef, day #6. 2. LOGAN - BIPAP HS/naps. Not tolerating well at night -Continue to encourage BiPAP 3. Acute on chronic hypoxic/hypercarbic respiratory failure -when came in was on 87% on her home O2 and was up to 6 L, now is back down and stable on home O2 amount of 4 L nasal cannula 4. proteus UTI - received rocephin day 1, then omnicef. -Cont omnicef to complete total of 7 days of abx. Today's day #6 of 7 5. morbid obesity with BMI 39 6. DVT proph - coumadin. Daily INR. INR remains supratherapeutic today at 3.7 likely secondary to antibiotic use -Continue to hold Coumadin -Follow PT/INR daily 7. Paroxysmal atrial fibrillation with rapid ventricular response-previously in NSR on amiodarone and then transferred to medical. Then on 09/08, she went back in rapid atrial fibrillation with relatively low blood pressure and left- sided chest pressure. ECG without ischemic changes but with rapid atrial fibrillation in the 120s. Troponin negative -Now back in normal sinus rhythm with loading doses of amiodarone -Continue telemetry monitoring -Continue amiodarone 200 mg once daily -Cont coumadin for anticoagulation but holding today for supratherapeutic INR as above -Continue the increased p.o. diltiazem at 240 mg once daily -Appreciate cardiology consultation 8. intertrigo - nystatin powder TID. 9. uncontrolled T2DM, on long-term insulin-hemoglobin A1c in 07/2017 was 8.1%- with hyperglycemia here secondary to corticosteroids. Hyperglycemia persists today -Continue Lantus and increase to 25 units twice daily -Continue sliding scale and adjust as needed 10. iron def anemia - trans sat is low, ferritin also low-normal. Restarted ferrous sulfate 325mg BID. Consider outpatient GI w/u for this. Could obtain a fecal occult blood while here to be complete. H/H stable on cbc. 11. left distal leg pain - check tib-fib x-rays, r/o occult stress fracture, etc. and x-rays negative PT, OT evals -Disposition-remain on telemetry, possibly to home in 1-2 days if remains in rate controlled rhythm Full code
[2017-09-11] MEDS: TRAZODONE HCL 100 MG TAB PO SCH (20:39)
[2017-09-11] MEDS: PRAMIPEXOLE DIHYDROCHLORIDE 0.5 MG TAB PO SCH (20:40)
[2017-09-11] MEDS: MIRTAZAPINE TAB 15 MG TAB PO SCH (20:40)
[2017-09-11] MEDS ORDERED: INSULIN GLARGINE SOLOSTAR 100 UNITS/ML 3 ML PEN SC SCH (21:00)
[2017-09-12] VITALS (13 sets, daily range): BP systolic 98–152; BP diastolic 67–91; PULSE 91–139; TEMP 36.6–37.1; O2SAT 94–99; BMI 39.3
[2017-09-12] MEDS ORDERED: DILTIAZEM HCL 30 MG TAB PO ONE (01:45)
[2017-09-12 02:03] LABS: CALCIUM 8.5 mg/dl (8.5-10.1); CREATININE 1.18 mg/dl (0.60-1.20); POTASSIUM 3.5 mmol/L (3.5-5.1)
[2017-09-12] MEDS: IPRATROPIUM BROMIDE NEB SOLN 0.02% 2.5 ML VIAL INH SCH ×4 (02:19→19:35)
[2017-09-12] MEDS: LEVALBUTEROL 1.25MG/3ML NEB INH SCH ×4 (02:19→19:35)
[2017-09-12] MEDS: DILTIAZEM HCL 120 MG EXT REL CAP PO SCH (06:19)
[2017-09-12] MEDS: AMIODARONE 200 MG TAB PO SCH ×3 (06:19→21:36)
[2017-09-12 06:48] LABS: CALCIUM 8.2 mg/dl (8.5-10.1); CREATININE 1.02 mg/dl (0.60-1.20); POTASSIUM 3.5 mmol/L (3.5-5.1)
[2017-09-12] MEDS: BUDESONIDE 0.25 MG/2 ML VIAL (PULMICORT) INH SCH ×2 (07:08→19:35)
[2017-09-12] MEDS: GLUCOSE 10 TABS/TUBE PO PRN (07:20)
[2017-09-12] MEDS ORDERED: POTASSIUM CHLORIDE 20 MEQ TABCR PO STA (07:35)
[2017-09-12] MEDS: FERROUS SULFATE 325 MG TAB PO SCH ×2 (08:23→21:37)
[2017-09-12] MEDS: ATORVASTATIN 40 MG TAB PO SCH (08:23)
[2017-09-12] MEDS: BusPIRone 15 MG TAB PO SCH ×3 (08:23→21:39)
[2017-09-12] MEDS: DOCUSATE SODIUM/SENNA 50/8.6MG TAB PO SCH (08:24)
[2017-09-12] MEDS: ASPIRIN 81 MG ECTAB PO SCH (08:24)
[2017-09-12] MEDS: FUROSEMIDE 40 MG TAB PO SCH (08:24)
[2017-09-12] MEDS: LACTOBACILLUS ACIDOPHILUS (FLORANEX) TAB PO SCH ×3 (08:24→17:07)
[2017-09-12] MEDS: CEFDINIR 300 MG CAP PO SCH ×2 (08:24→21:35)
[2017-09-12] MEDS: NYSTATIN SUSP 500,000 U/5 ML UDC PO SCH ×4 (08:24→21:34)
[2017-09-12] MEDS: PANTOprazole SOD 40 MG TAB PO SCH (08:24)
[2017-09-12] MEDS: MICONAZOLE NITRATE POWDER 43 GM EXT PRN (08:25)
[2017-09-12] MEDS: VENLAFAXINE HCL XR 150 MG CAPXR PO SCH (08:25)
[2017-09-12] MEDS: DICLOFENAC SOD 1% GEL 100 GM TUBE EXT SCH ×4 (08:25→21:34)
[2017-09-12] MEDS: VENLAFAXINE HCL XR 75 MG CAPXR PO SCH (08:25)
[2017-09-12] MEDS: NYSTATIN POWDER 15GM BTL EXT SCH ×3 (08:26→21:45)
[2017-09-12] MEDS: GUAIFENESIN 600 MG TABCR PO SCH ×2 (08:27→21:37)
[2017-09-12] MEDS: LISINOPRIL 5 MG TAB PO SCH (08:27)
[2017-09-12] MEDS: INSULIN GLARGINE SOLOSTAR 100 UNITS/ML 3 ML PEN SC SCH ×2 (08:28→21:45)
[2017-09-12] MEDS: INSULIN ASPART 100 UNITS/ML 3 ML PEN SC SCH ×4 (09:04→21:45)
[2017-09-12] MEDS ORDERED: AMIODARONE 200 MG TAB PO ONE (09:45)
--- NOTE | 2017-09-12 10:30 | PROGRESS NOTE ---
DATE: 09/12/2017 The patient was seen by me this morning in her telemetry unit room. Just after midnight, she developed atrial fibrillation with rapid ventricular response. She has been in sinus rhythm yesterday. Overnight and this morning, she remains in atrial fibrillation with a rapid ventricular response. Ventricular rates on the monitor have been as high as 130s. Currently, the ventricular rate is in the low 100s. She is asymptomatic with the atrial fibrillation. She denies any palpitations. No chest pain or other anginal type pains. No dyspnea. No lightheadedness. No nausea or diaphoresis. She has no symptoms with the atrial fibrillation. From a respiratory standpoint, she is doing better. She denies any dyspnea at rest this morning. No orthopnea or PND overnight. She denies any cough. No fevers or chills. She does have a decreased appetite. No abdominal pain. No leg pain. No symptoms of bleeding. No symptoms suggestive of a thromboembolic event. No cerebrovascular or peripheral vascular complaints. CURRENT MEDICATIONS: Lantus insulin 22 units subQ b.i.d., prednisone 60 mg daily, senna/docusate sodium 1 tab daily, amiodarone 200 mg daily, diltiazem 240 mg daily, Mirapex 1 mg at bedtime, ferrous sulfate 325 mg b.i.d., Voltaren gel 1 application q.i.d., cefdinir 300 mg p.o. b.i.d., guaifenesin 1200 mg q. 12 hours, nystatin 1 application t.i.d., Xopenex 1.25 mg q. 6 hours, aspirin 81 mg daily, atorvastatin 80 mg daily, furosemide 40 mg daily, lisinopril 5 mg daily, pantoprazole 40 mg daily, Venlafaxine 225 mg daily, Floranex 4 tabs t.i.d., BuSpar 15 mg t.i.d., and several p.r.n. medications. ALLERGIES AND ADVERSE DRUG REACTIONS: CODEINE, MORPHINE, THEOPHYLLINE. Monitor history reviewed by me. Development of atrial fibrillation with rapid ventricular response overnight. She remains in atrial fibrillation with current ventricular rates in the low 100s. PHYSICAL EXAMINATION: VITAL SIGNS: This morning with oral temperature 36.6, pulse 105, blood pressure 100/67, pulse oximetry on 4 liters per minute nasal cannula oxygen 98%. Repeat blood pressure 141/68. Pulse rate as high as 136, has been documented this morning. NECK: No jugular venous distention. LUNGS: Diminished breath sounds in all lung allen. Decreased breath sounds at the bases. No rales. No wheezes. No rhonchi. HEART: Distant heart sounds. Irregularly irregular. Increased rate. No murmur, S3, or rub. ABDOMEN: Soft. Nontender. No palpable masses or organomegaly. No bruits. EXTREMITIES: No pretibial edema. No calf tenderness. NEUROLOGIC: Alert and oriented x3. Motor grossly intact. PSYCHIATRIC: Affect is normal. LABORATORY DATA: INR today 3.0. Metabolic profile today was sodium 144, potassium 3.5, chloride 100, carbon dioxide 43, BUN 34, creatinine 1.02, random glucose 54, magnesium 2.4. No CBC performed today. ASSESSMENT: 1. Paroxysmal atrial fibrillation. Persistent since early this morning. Increased ventricular rate. The atrial fibrillation is asymptomatic. 2. Blood pressure under adequate control. 3. Severe underlying chronic obstructive pulmonary disease. Acute on chronic respiratory failure. Respiratory status steadily improving. No evidence of bronchospasm on exam today. She denies any dyspnea today. 4. INR at the upper range of therapeutic today. Her warfarin had been on hold for several days secondary to increased INR. 5. No evidence of heart failure on exam. RECOMMENDATIONS: 1. 400 mg additional oral amiodarone now. Increase routine amiodarone dose to 200 mg q. 8 hours. 2. If she has significantly elevated ventricular rates with the atrial fibrillation, could give a bolus of intravenous diltiazem. 3. Continue current oral dose of diltiazem. 4. Can resume anticoagulation with warfarin. On admission, she was on 3 mg daily. With the amiodarone and warfarin interaction, which decreased his warfarin requirements would restart at a dose of 1.5 mg daily.
--- NOTE | 2017-09-12 11:16 | Hospitalist Progress Note ---
Hospitalist Progress Note Date of Service September 12, 2017. Subjective Pt evaluation today including: conversation w/ patient Patient back in rapid atrial fibrillation overnight. Rates are currently in the 120s. She received an extra dose of amiodarone this morning and now cardiology has ordered multiple doses for loading dose. Patient does feel a little bit short of breath today, again correlating with being in rapid A. fib. No cough. Otherwise doing well. We discussed her noncompliance with BiPAP and she reports claustrophobia. She is agreeable to wearing it tonight if it will possibly help keep her heart in a regular rhythm which we discussed. She is agreeable to trying lorazepam at a low dose to help her with her claustrophobia, but discussed to only take the Lorazepam if she is going to be wearing the BiPAP. Cardiovascular: No chest pain Abdomen: No constipation All Other Systems: Reviewed and Negative Objective Vital Signs Date Time Temp Pulse Resp B/P (MAP) Pulse Ox O2 Delivery O2 Flow Rate FiO2 09/12/17 08:00 Nasal Cannula 4.0 09/12/17 07:08 136 18 98 Nasal Cannula 4.0 09/12/17 06:18 141/68 (92) 09/12/17 06:08 36.6 105 19 100/67 (78) 98 Nasal Cannula 4.0 09/12/17 04:30 36.9 108 19 119/76 (90) 98 Nasal Cannula 4.0 09/12/17 04:00 Nasal Cannula 4.0 09/12/17 01:38 124 146/72 (96) 09/11/17 23:59 98 Nasal Cannula 4.0 09/11/17 23:51 37.0 94 20 143/60 (87) 98 Nasal Cannula 4.0 09/11/17 20:00 36.7 90 22 137/60 (85) 97 Nasal Cannula 4.0 09/11/17 20:00 Nasal Cannula 09/11/17 19:48 98 20 98 Nasal Cannula 4.0 09/11/17 16:00 Nasal Cannula 4.0 09/11/17 14:06 95 18 95 Nasal Cannula 4.0 09/11/17 12:00 Nasal Cannula 4.0 Humidified Oxygen Physical Exam General Appearance: WD/WN, no apparent distress, + obese Eyes: normal inspection, sclerae normal ENT: hearing grossly normal, pharynx normal (No thrush) Neck: trachea midline Respiratory/Chest: no respiratory distress, no accessory muscle use, + decreased breath sounds (Throughout due to body habitus, however there is no wheezing, no crackles) Cardiovascular: no murmur, + tachycardia, + irregularly irregular Abdomen: normal bowel sounds, non tender, soft Extremities: non-tender, normal inspection, no pedal edema, no calf tenderness Neurologic/Psychiatric: alert, normal mood/affect, oriented x 3 Skin: normal color, warm/dry, no rash Laboratory Results Last 24 Hours Test 09/11/17 11:09 09/11/17 16:17 09/11/17 20:48 09/12/17 01:16 Bedside Glucose 236 mg/dl 108 mg/dl 286 mg/dl Sodium Level 142 mmol/L Potassium Level 3.5 mmol/L Chloride Level 98 mmol/L Carbon Dioxide Level 38 mmol/L Anion Gap 2.0 mmol/L Blood Urea Nitrogen 35 mg/dl Creatinine 1.18 mg/dl Est Creatinine Clear Calc Drug Dose 51.8 ml/min Estimated GFR () 52.2 Estimated GFR (Non- 45.1 BUN/Creatinine Ratio 29.9 Random Glucose 145 mg/dl Calcium Level 8.5 mg/dl Magnesium Level 2.6 mg/dl Test 09/12/17 05:48 09/12/17 07:12 09/12/17 07:31 Prothrombin Time 31.0 SECONDS Prothromb Time International Ratio 3.0 Sodium Level 144 mmol/L Potassium Level 3.5 mmol/L Chloride Level 100 mmol/L Carbon Dioxide Level 43 mmol/L Anion Gap 2.0 mmol/L Blood Urea Nitrogen 34 mg/dl Creatinine 1.02 mg/dl Est Creatinine Clear Calc Drug Dose 60.0 ml/min Estimated GFR () 62.3 Estimated GFR (Non- 53.8 BUN/Creatinine Ratio 33.3 Random Glucose 54 mg/dl Calcium Level 8.2 mg/dl Magnesium Level 2.4 mg/dl Bedside Glucose 61 mg/dl 75 mg/dl Assessment and Plan Ms. Church is a 77 year old female with hx of chronic diastolic CHF with preserved EF, paroxysmal atrial fibrillation on Coumadin, history of TIA/CVA, history of GI bleed, anxiety disorder, chronic respiratory failure/O2 dependent COPD (on 4L of oxygen at home), obesity hypoventilation syndrome on nocturnal BiPAP, DM 2, HTN, and hyperlipidemia who presented with significant shortness of breath and acute on chronic hypoxic respiratory failure secondary to acute exacerbation of COPD. 1. COPD with exacerbation -continues to improve, is more short of breath that seems to correlate with when she is in rapid atrial fibrillation -Received IV Solu-Medrol and now on prednisone 60 mg once daily and will taper down slowly by 10 mg daily each day-changed 50 mill grams for tomorrow -Cont xopenex/atrovent nebs q6h. -Cont mucinex and incentive spirometry. -Continue inhaled corticosteroid -Cont NC O2 during day; BIPAP at HS -Cont omnicef, day #6. 2. LOGAN - BIPAP HS/naps is ordered. Not tolerating well at night and bicarbonate is increasing-claustrophobia noted -Discussed with patient today-she is willing to wear it tonight -Lorazepam 0.5 mg p.o. nightly as needed claustrophobia or insomnia is ordered only if wearing BiPAP 3. Acute on chronic hypoxic/hypercarbic respiratory failure secondary to COPD exacerbation-when came in was on 87% on her home O2 and was up to 6 L, now is back down and stable on home O2 amount of 4 L nasal cannula -Encouraged use of BiPAP as above 4. proteus UTI - received rocephin day 1, then omnicef. -Cont omnicef to complete total of 7 days of abx. Today's day #7 of 7 5. morbid obesity with BMI 39 6. DVT proph - coumadin. Daily INR. INR finally down to 3.0 today, was elevated previously likely secondary to antibiotic use -Will restart Coumadin today especially as antibiotic use is done today-however , with amiodarone use, INR could stay elevated-restart at 1.5 mg daily (home dose 3 mg daily) -Follow PT/INR daily 7. Paroxysmal atrial fibrillation with rapid ventricular response-previously in NSR on amiodarone for several days and then transferred to medical. Then on 09/08, she went back in rapid atrial fibrillation with relatively low blood pressure and left-sided chest pressure. ECG without ischemic changes but with rapid atrial fibrillation in the 120s. Troponin negative. Continues to be in and out of rapid atrial fibrillation over the last 4 days -Continue telemetry monitoring -Now given another loading dose of 400 mg amiodarone and cardiology ordered 200 mg p.o. 3 times daily for today -Cont coumadin for anticoagulation but holding today for supratherapeutic INR as above -Continue the increased p.o. diltiazem at 240 mg once daily and consider IV diltiazem bolus as needed for continued rapid rates -Appreciate cardiology consultation 8. intertrigo - nystatin powder TID. 9. uncontrolled T2DM, on long-term insulin-hemoglobin A1c in 07/2017 was 8.1%- with hyperglycemia here secondary to corticosteroids. Now hypoglycemic with increased Lantus dosing. -Decrease Lantus back to 22 units twice a day -Continue sliding scale and adjust as needed 10. iron def anemia - trans sat is low, ferritin also low-normal. Restarted ferrous sulfate 325mg BID. Hemoglobin stable Consider outpatient GI w/u for this. -fecal occult blood while here to be complete-ordered today -Periodically follow CBC while here 11. left distal leg pain - check tib-fib x-rays, r/o occult stress fracture, etc. and x-rays negative-resolved PT, OT evals -Disposition-remain on telemetry, possibly to home in 1-2 days if remains in rate controlled rhythm Full code
[2017-09-12] MEDS: WARFARIN TAB 1 MG, WARFARIN TAB 0.5 MG PO SCH (15:32)
[2017-09-12] MEDS ORDERED: WARFARIN SOD 2.5 MG TAB PO SCH ×2 (16:00)
[2017-09-12] MEDS ORDERED: METOPROLOL TARTRATE 1 MG/ML VIAL IV STA (16:09)
[2017-09-12] MEDS ORDERED: NURSING VERBAL MED ORDER ONE (16:15)
[2017-09-12] MEDS ORDERED: METOPROLOL TARTRATE 1 MG/ML VIAL IV PRN (16:15)
[2017-09-12] MEDS: MIRTAZAPINE TAB 15 MG TAB PO SCH (21:35)
[2017-09-12] MEDS: PRAMIPEXOLE DIHYDROCHLORIDE 0.5 MG TAB PO SCH (21:36)
[2017-09-12] MEDS: TRAZODONE HCL 100 MG TAB PO SCH (21:38)
[2017-09-12] MEDS: LORAZEPAM 0.5 MG TAB PO PRN (22:51)
[2017-09-13] VITALS (13 sets, daily range): BP systolic 102–121; BP diastolic 50–76; PULSE 89–128; TEMP 36.5–37.1; O2SAT 93–99; BMI 40.4
[2017-09-13] MEDS: LEVALBUTEROL 1.25MG/3ML NEB INH SCH ×4 (01:48→19:12)
[2017-09-13] MEDS: IPRATROPIUM BROMIDE NEB SOLN 0.02% 2.5 ML VIAL INH SCH ×4 (01:48→19:12)
[2017-09-13] MEDS: AMIODARONE 200 MG TAB PO SCH ×3 (06:27→21:53)
[2017-09-13 06:28] LABS: INR 2.4 (0.9-1.1)
[2017-09-13] MEDS: BUDESONIDE 0.25 MG/2 ML VIAL (PULMICORT) INH SCH ×2 (06:55→19:05)
[2017-09-13 07:00] LABS: CALCIUM 8.1 mg/dl (8.5-10.1); POTASSIUM 3.5 mmol/L (3.5-5.1)
[2017-09-13] MEDS: GLUCOSE 10 TABS/TUBE PO PRN ×2 (07:05→07:22)
[2017-09-13] MEDS: LACTOBACILLUS ACIDOPHILUS (FLORANEX) TAB PO SCH ×3 (08:29→16:44)
[2017-09-13] MEDS: BusPIRone 15 MG TAB PO SCH ×3 (08:30→20:51)
[2017-09-13] MEDS: PANTOprazole SOD 40 MG TAB PO SCH (08:30)
[2017-09-13] MEDS: GUAIFENESIN 600 MG TABCR PO SCH ×2 (08:30→20:52)
[2017-09-13] MEDS: FERROUS SULFATE 325 MG TAB PO SCH ×2 (08:30→20:52)
[2017-09-13] MEDS: DILTIAZEM HCL 120 MG EXT REL CAP PO SCH (08:31)
[2017-09-13] MEDS: DOCUSATE SODIUM/SENNA 50/8.6MG TAB PO SCH (08:31)
[2017-09-13] MEDS: VENLAFAXINE HCL XR 75 MG CAPXR PO SCH (08:31)
[2017-09-13] MEDS: LISINOPRIL 5 MG TAB PO SCH (08:31)
[2017-09-13] MEDS: FUROSEMIDE 40 MG TAB PO SCH (08:31)
[2017-09-13] MEDS: VENLAFAXINE HCL XR 150 MG CAPXR PO SCH (08:32)
[2017-09-13] MEDS: ASPIRIN 81 MG ECTAB PO SCH (08:32)
[2017-09-13] MEDS: DICLOFENAC SOD 1% GEL 100 GM TUBE EXT SCH ×4 (08:32→20:51)
[2017-09-13] MEDS: NYSTATIN POWDER 15GM BTL EXT SCH ×3 (08:33→20:51)
[2017-09-13] MEDS: NYSTATIN SUSP 500,000 U/5 ML UDC PO SCH ×4 (08:33→20:53)
[2017-09-13] MEDS: ATORVASTATIN 40 MG TAB PO SCH (08:34)
[2017-09-13] MEDS: INSULIN ASPART 100 UNITS/ML 3 ML PEN SC SCH ×4 (08:41→20:57)
[2017-09-13] MEDS ORDERED: DILTIAZEM HCL 120 MG EXT REL CAP PO ONE (09:30)
--- NOTE | 2017-09-13 11:42 | DIAGNOSTIC IMAGING REPORT ---
CHEST 2 VIEWS ROUTINE CLINICAL HISTORY: 77 years-old Female presenting with COPD, eval for complicating pulm edema or pneumonia. TECHNIQUE: PA and lateral views of the chest were obtained. COMPARISON: 09/05/2017. FINDINGS: Atherosclerosis of the aortic arch. Cardiac silhouette normal in size. Lungs and pleural spaces clear. Degenerative changes of the thoracic spine. Upper abdomen normal. IMPRESSION: 1. No acute cardiopulmonary disease. Electronically signed by: Eddie Waters M.D. 09/13/2017 11:41 AM Dictated Date/Time: 09/13/2017 11:40 AM
[2017-09-13] MEDS: WARFARIN TAB 1 MG, WARFARIN TAB 0.5 MG PO SCH (16:45)
--- NOTE | 2017-09-13 17:08 | PROGRESS NOTE ---
DATE: 09/13/2017 CARDIOLOGY PROGRESS NOTE: SUBJECTIVE: The patient was seen by me this morning in her telemetry unit room. She complains of fatigue. This is secondary to inability to obtain sleep. She states she has woken up multiple times overnight. From the symptoms standpoint, she is doing well. She denies any dyspnea at rest. No orthopnea or PND overnight. She did have difficulty with her CPAP mask overnight. No chest pain, no palpitations, no lightheadedness or syncope. No abdominal pain or nausea. No diaphoresis. No leg pain. No bleeding complaints. No symptoms suggestive of a thromboembolic event. No cerebrovascular or peripheral vascular complaints. She denies any cough. She denies wheezing today. MEDICATIONS: This morning included diltiazem 240 mg daily, Lantus insulin 22 units subcu at bedtime, prednisone 50 mg a.m., warfarin 1.5 mg daily, amiodarone 200 mg q.8 h., Senokot 1 tablet daily, Mirapex 1 mg at bedtime, ferrous sulfate 325 mg b.i.d., Voltaren gel 1 application q.i.d., guaifenesin 1200 mg q.12 h., Nystatin powder 1 application t.i.d., Xopenex nebulizer 1.25 mg q.6 h., aspirin 81 mg daily, atorvastatin 80 mg daily, furosemide 40 mg daily, lisinopril 5 mg daily, pantoprazole 40 mg daily, Effexor 225 mg daily, Floranex 4 tablets t.i.d., BuSpar 15 mg p.o. t.i.d., Remeron 30 mg at bedtime, trazodone 200 mg at bedtime, Nystatin suspension 5 mL p.o. q.i.d., Pulmicort 0.25 mg inhaled b.i.d., and several p.r.n. medications. ALLERGIES AND ADVERSE DRUG REACTIONS: CODEINE, MORPHINE, THEOPHYLLINES. MEDICAL HISTORY: Monitored history reviewed by me. Overnight, patient in atrial fibrillation with rapid ventricular response. Ventricular rates ranging from the low 100s to the 130s. PHYSICAL EXAMINATION: VITAL SIGNS: This morning with oral temperature 36.5, pulse 128, blood pressure 120/50, pulse oximetry 99% on 4 L per minute nasal cannula oxygen. NECK: No obvious jugular venous distention. Thick neck size. LUNGS: Diminished breath sounds in all lung allen. No rales, rhonchi, or wheezes. Decreased breath sounds, both bases. HEART: Distant heart sounds. Irregularly irregular. Increased rate. No murmur, S3, or rub. ABDOMEN: Normal bowel sounds. Soft and nontender. No palpable masses or organomegaly. EXTREMITIES: No calf tenderness on palpation. No pretibial edema. No cyanosis. NEUROLOGIC: Alert and oriented x3. Motor grossly intact. PSYCHIATRIC: Affect is normal. IMAGING DATA: Electrocardiogram performed yesterday with atrial fibrillation with rapid ventricular response, inferior posterior DE, no diagnostic ischemic ST or T-wave abnormalities. Chest x-ray performed today and reviewed by me without evidence of congestive heart failure. No infiltrates. LABORATORY DATA: Today was sodium 144, potassium 3.5, chloride 101, carbon dioxide 43, BUN 33, creatinine 1.0, random glucose 48, magnesium 2.3. INR today 2.4. Stool for Hemoccult blood yesterday was negative. A hemoglobin level on September 11 was 10.6. ASSESSMENT: 1. Persistent atrial fibrillation. She continues with rapid ventricular response. This is despite increasing amiodarone dose yesterday. 2. No evidence of congestive heart failure on exam or chest x-ray. 3. Severe underlying lung disease. No evidence of bronchospasm on exam today. 4. INR therapeutic today. 5. No anginal symptoms. 6. No bleeding complaints. 7. No symptoms suggestive of a thromboembolic event. 8. Metabolic alkalosis. This is likely compensatory for respiratory acidosis. 9. No evidence of volume overload on exam. RECOMMENDATIONS AND PLAN: 1. This morning the patient was given an additional 120 mg of long acting diltiazem. 2. Increase daily a.m. diltiazem dose to p.o. 360 mg daily. 3. Continue amiodarone 200 mg q.8 h. 4. Continue current diuretic dose. 5. Chronic anticoagulation therapy with warfarin. INR goal 2-3. 6. Could give intravenous diltiazem as needed for increased ventricular rate with the atrial fibrillation. She is also ordered intravenous metoprolol to be given as needed for elevated ventricular rates.
--- NOTE | 2017-09-13 18:31 | Progress Note ---
Subjective Date of Service: September 13, 2017. Subjective Pt evaluation today including: conversation w/ patient, physical exam, chart review, lab review, review of studies (cxr), review of inpatient medication list Pain: denies PO Intake: fair Voiding: no voiding problems pt states her breathing is unchanged relative to when she was first admitted - no better and no worse tele - uncontrolled a fib rates she reports "wrestling" with the CPAP mask last night - she doesn't think she can use it she was just prescribed the CPAP recently as an outpatient for severe sleep apnea Problem List Medical Problems: (1) Acute on chronic respiratory failure with hypoxia and hypercapnia Status: Acute (2) Anemia Status: Acute (3) Anemia Status: Acute (4) Anemia Status: Acute (5) Anemia Status: Acute (6) Bronchitis Status: Acute (7) Cellulitis Status: Acute (8) COPD exacerbation Status: Acute (9) COPD with exacerbation Status: Acute (10) Dyspnea Status: Acute (11) Fatigue Status: Acute (12) GI bleed Status: Acute (13) GI bleed Status: Acute (14) Hypokalemia Status: Acute (15) Respiratory failure Status: Acute (16) Sepsis Status: Acute (17) SOB (shortness of breath) Status: Acute (18) TIA (transient ischemic attack) Status: Acute (19) UTI (urinary tract infection) Status: Acute Review of Systems Constitutional: No fever Respiratory: + cough (mild, dry), No sputum, No dyspnea at rest Cardiac: No chest pain, No orthopnea Abdomen: No pain Objective Vital Signs Date Time Temp Pulse Resp B/P (MAP) Pulse Ox O2 Delivery O2 Flow Rate FiO2 09/13/17 15:29 37.0 112 20 121/73 (89) 98 Nasal Cannula 4.0 09/13/17 14:13 91 18 98 Nasal Cannula 4.0 09/13/17 12:00 Nasal Cannula 4.0 09/13/17 11:15 37.1 126 20 111/76 (88) 95 Nasal Cannula 4.0 09/13/17 08:00 Nasal Cannula 4.0 09/13/17 07:47 36.5 128 20 120/50 (73) 99 Nasal Cannula 4.0 09/13/17 04:00 CPAP 09/13/17 03:40 37.0 118 22 102/70 (81) 94 Room Air 09/13/17 01:49 99 98 4.0 09/13/17 01:48 99 20 98 BiPAP/CPAP 4.0 09/13/17 00:16 112 99 4.0 09/12/17 23:59 CPAP 09/12/17 23:46 36.6 95 20 115/72 (86) 99 Nasal Cannula 4.0 09/12/17 20:21 36.9 91 20 123/91 (102) 94 Nasal Cannula 4.0 09/12/17 20:00 97 Nasal Cannula Humidified Air 09/12/17 19:35 97 20 98 Nasal Cannula 4.0 Physical Exam General Appearance: no apparent distress, + obese ENT: pharynx normal Neck: no JVD Respiratory/Chest: no respiratory distress, no accessory muscle use, + pertinent finding (airation very poor (inspiratory & expiratory phases); no crackles or wheezes) Cardiovascular: no murmur, + tachycardia, + irregularly irregular Abdomen: normal bowel sounds, non tender, soft, no organomegaly Extremities: no pedal edema Neurologic/Psychiatric: alert, normal mood/affect, oriented x 3 Laboratory Results Last 24 Hours Test 09/12/17 20:26 09/13/17 05:46 09/13/17 07:02 09/13/17 07:19 Bedside Glucose 207 mg/dl 46 mg/dl 62 mg/dl Prothrombin Time 24.7 SECONDS Prothromb Time International Ratio 2.4 Sodium Level 144 mmol/L Potassium Level 3.5 mmol/L Chloride Level 101 mmol/L Carbon Dioxide Level 43 mmol/L Anion Gap 0.0 mmol/L Blood Urea Nitrogen 33 mg/dl Creatinine 1.00 mg/dl Est Creatinine Clear Calc Drug Dose 62.1 ml/min Estimated GFR () 63.8 Estimated GFR (Non- 55.1 BUN/Creatinine Ratio 32.7 Random Glucose 48 mg/dl Calcium Level 8.1 mg/dl Magnesium Level 2.3 mg/dl Test 09/13/17 07:35 09/13/17 11:12 09/13/17 16:26 Bedside Glucose 91 mg/dl 156 mg/dl 87 mg/dl Assessment and Plan 77yo female: 1. COPD with exacerbation - pt reports little improvement in her symptoms but clinically she is stable relative to my last visit with her about 5-6 days ago. She remains on prednisone 50mg daily. Would wean every 3 days. Cont mucinex and incentive spirometry. Can hold budesonide due to systemic steroids. Cont NC O2 during day; BIPAP at HS (as tolerated). She completed her course of oral antibiotics and cxr today does not show any discrete infiltrates. 2. LOGAN - BIPAP HS/naps, if tolerated. She uses [facility] as outpatient for supplies and sees [facility] - after d/c will attempt to get her nasal prong CPAP. She also needs titration study to ensure she is on the right pressures. 3. chronic hypoxic/hypercarbic respiratory failure - stable on home O2 amount. 4. proteus UTI - completed total of 7 days of abx. 5. morbid obesity with BMI 40 6. DVT proph - coumadin. Daily INR. INR therapeutic today. 7. a fib - previously in NSR on amiodarone. However, this admission, converted back to a. fib with poor rate control despite increasing her amiodarone & titrating her calcium channel liliana. Appreciate cardiology input. She may need beta blockade in addition to the above. 8. intertrigo - nystatin powder TID. 9. uncontrolled T2DM - improved, now with hypoglycemia. Stop the AM lantus; continue lantus at HS. Loosen novolog w/ meals. 10. iron def anemia - trans sat is low, ferritin also low-normal. Cont ferrous sulfate 325mg BID. Consider outpatient GI w/u for this. Fecal occult blood was negative this admission. CBC has been stable. 11. insomnia - is on rather large dose of trazodone. Would not titrate at this time. continues to require hospitalization due to ongoing rapid a. fib Continued [facility] stay due to: multiple IV medications needed Discharge planning: home with home health
[2017-09-13] MEDS: PRAMIPEXOLE DIHYDROCHLORIDE 0.5 MG TAB PO SCH (20:52)
[2017-09-13] MEDS: TRAZODONE HCL 100 MG TAB PO SCH (20:53)
[2017-09-13] MEDS: MIRTAZAPINE TAB 15 MG TAB PO SCH (20:53)
[2017-09-13] MEDS: INSULIN GLARGINE SOLOSTAR 100 UNITS/ML 3 ML PEN SC SCH (20:58)
[2017-09-13] MEDS ORDERED: INSULIN GLARGINE SOLOSTAR 100 UNITS/ML 3 ML PEN SC SCH (21:00)
[2017-09-13] MEDS: LORAZEPAM 0.5 MG TAB PO PRN (21:56)
[2017-09-14] VITALS (12 sets, daily range): BP systolic 120–173; BP diastolic 43–77; PULSE 75–96; TEMP 36.4–37.4; O2SAT 93–100
[2017-09-14] MEDS: IPRATROPIUM BROMIDE NEB SOLN 0.02% 2.5 ML VIAL INH SCH ×4 (01:56→19:05)
[2017-09-14] MEDS: LEVALBUTEROL 1.25MG/3ML NEB INH SCH ×4 (01:57→19:05)
[2017-09-14 05:44] LABS: HEMATOCRIT 32.9 % (37-47)
[2017-09-14] MEDS: AMIODARONE 200 MG TAB PO SCH ×3 (05:44→21:33)
[2017-09-14 05:51] LABS: INR 2.2 (0.9-1.1)
[2017-09-14 06:24] LABS: CALCIUM 8.2 mg/dl (8.5-10.1); CREATININE 0.96 mg/dl (0.60-1.20); POTASSIUM 3.8 mmol/L (3.5-5.1)
[2017-09-14] MEDS: BUDESONIDE 0.25 MG/2 ML VIAL (PULMICORT) INH SCH ×2 (07:02→19:04)
[2017-09-14] MEDS: INSULIN ASPART 100 UNITS/ML 3 ML PEN SC SCH ×4 (07:55→21:36)
[2017-09-14] MEDS: FERROUS SULFATE 325 MG TAB PO SCH ×2 (07:56→21:32)
[2017-09-14] MEDS: DOCUSATE SODIUM/SENNA 50/8.6MG TAB PO SCH (07:56)
[2017-09-14] MEDS: ATORVASTATIN 40 MG TAB PO SCH (07:56)
[2017-09-14] MEDS: BusPIRone 15 MG TAB PO SCH ×3 (07:57→21:32)
[2017-09-14] MEDS: PANTOprazole SOD 40 MG TAB PO SCH (07:57)
[2017-09-14] MEDS: VENLAFAXINE HCL XR 150 MG CAPXR PO SCH (07:57)
[2017-09-14] MEDS: LISINOPRIL 5 MG TAB PO SCH (07:57)
[2017-09-14] MEDS: GUAIFENESIN 600 MG TABCR PO SCH ×2 (07:57→21:33)
[2017-09-14] MEDS: LACTOBACILLUS ACIDOPHILUS (FLORANEX) TAB PO SCH ×3 (07:58→17:39)
[2017-09-14] MEDS: ASPIRIN 81 MG ECTAB PO SCH (07:58)
[2017-09-14] MEDS: DILTIAZEM HCL 120 MG EXT REL CAP PO SCH (07:58)
[2017-09-14] MEDS: VENLAFAXINE HCL XR 75 MG CAPXR PO SCH (07:59)
[2017-09-14] MEDS: NYSTATIN SUSP 500,000 U/5 ML UDC PO SCH ×4 (07:59→21:32)
[2017-09-14] MEDS: FUROSEMIDE 40 MG TAB PO SCH (07:59)
[2017-09-14] MEDS: DICLOFENAC SOD 1% GEL 100 GM TUBE EXT SCH ×4 (08:00→21:00)
[2017-09-14] MEDS: NYSTATIN POWDER 15GM BTL EXT SCH ×3 (08:01→21:00)
--- NOTE | 2017-09-14 16:06 | PROGRESS NOTE ---
DATE: 09/14/2017 SUBJECTIVE: The patient was seen by me this morning in her telemetry unit room. Last night, she converted to sinus rhythm from atrial fibrillation. She states today she feels stronger than she has in the past few days. No dyspnea at rest. She slept comfortably overnight with her CPAP. No chest pain or other anginal type pains. No palpitations, lightheadedness, syncope, or peripheral edema. No abdominal pain or nausea. No leg pain. No bleeding complaints. No symptoms suggestive of a thromboembolic event. MEDICATIONS: Cardiac type medications include diltiazem 360 mg q.a.m., metoprolol tartrate 5 mg IV q.1 h. as needed for heart rate greater than 120, warfarin 1.5 mg daily, amiodarone 200 mg q.8 h., aspirin 81 mg daily, atorvastatin 80 mg daily, furosemide 40 mg daily, lisinopril 5 mg daily. ALLERGIES/ADVERSE DRUG REACTIONS: CODEINE, MORPHINE, THEOPHYLLINES. Monitor history reviewed by me. The patient has been in sinus rhythm this morning. She was in sinus rhythm overnight. PHYSICAL EXAMINATION: VITAL SIGNS: This morning with oral temperature 37.3, pulse 84, blood pressure 132/50, pulse oximetry on 4 L/min nasal cannula oxygen 100%. GENERAL APPEARANCE: Shows her to be lying in bed. No distress. NECK: No jugular venous distention. LUNGS: Decreased breath sounds in both bases. Diminished breath sounds in all lung allen. No rales or wheezes. HEART: Regular rate and rhythm. S1 and S2 normal. No S3 or S4. Today, a grade 1/6 systolic murmur is present at her left upper sternal border and left lower sternal border. This is not heard when she is in atrial fibrillation. No rub. ABDOMEN: Soft, nontender. No palpable masses or organomegaly. No bruits. EXTREMITIES: Trace pretibial edema. No calf tenderness. NEUROLOGIC: Alert and oriented x3. Motor grossly intact. PSYCHIATRIC: Affect normal. LABORATORY DATA: Labs today with hemoglobin 10.0, hematocrit 32.9. INR today 2.2. Metabolic profile today is sodium 137, potassium 3.8, chloride 98, carbon dioxide 40, BUN 29, creatinine 0.96, random glucose 159. ASSESSMENT: 1. Paroxysmal atrial fibrillation. She had been in persistent atrial fibrillation until last night. She then converted to sinus rhythm. She has maintained sinus rhythm since then. 2. Acute on chronic respiratory insufficiency. The patient feels that she is at her baseline from her pulmonary status. 3. No evidence of congestive heart failure in regard to pulmonary vascular congestion. She does have trace pretibial edema on exam today. 4. INR is therapeutic. 5. Metabolic alkalosis. She does have prerenal azotemia. The metabolic alkalosis is likely a combination of compensatory metabolic alkalosis for respiratory acidosis, also a component of contraction alkalosis. Potassium level is normal. RECOMMENDATIONS: 1. Continue with higher dose of diltiazem 360 mg daily. She has had no adverse reactions to this higher dose. Her blood pressure is stable. 2. Continue amiodarone 200 mg q.8 h. Would discharge her home on amiodarone 200 mg q.8 h. for 1 week, then decrease to 200 mg b.i.d. for 1 week, then decrease to 200 mg daily as a maintenance. 3. Continue anticoagulation therapy with warfarin. INR goal 2-3. 4. From the cardiac standpoint, the patient could be discharged. 5. Outpatient followup visit with me in 1-2 weeks.
[2017-09-14] MEDS: WARFARIN TAB 1 MG, WARFARIN TAB 0.5 MG PO SCH (16:16)
--- NOTE | 2017-09-14 19:22 | Progress Note ---
Subjective Date of Service: September 14, 2017. Subjective Pt evaluation today including: conversation w/ patient, physical exam, chart review, lab review Pain: none PO Intake: normal Voiding: no voiding problems converted to NSR last night and has been in NSR since feels good denies dyspnea or cough today ambulating to bathroom w/o difficulty no other complaints Problem List Medical Problems: (1) Acute on chronic respiratory failure with hypoxia and hypercapnia Status: Acute (2) Anemia Status: Acute (3) Anemia Status: Acute (4) Anemia Status: Acute (5) Anemia Status: Acute (6) Bronchitis Status: Acute (7) Cellulitis Status: Acute (8) COPD exacerbation Status: Acute (9) COPD with exacerbation Status: Acute (10) Dyspnea Status: Acute (11) Fatigue Status: Acute (12) GI bleed Status: Acute (13) GI bleed Status: Acute (14) Hypokalemia Status: Acute (15) Respiratory failure Status: Acute (16) Sepsis Status: Acute (17) SOB (shortness of breath) Status: Acute (18) TIA (transient ischemic attack) Status: Acute (19) UTI (urinary tract infection) Status: Acute Review of Systems Respiratory: No cough, No shortness of breath Cardiac: No chest pain, No orthopnea Abdomen: No pain Objective Vital Signs Date Time Temp Pulse Resp B/P (MAP) Pulse Ox O2 Delivery O2 Flow Rate FiO2 09/14/17 19:05 78 18 95 Nasal Cannula 4.0 09/14/17 16:00 Nasal Cannula 4.0 09/14/17 15:39 36.6 82 20 126/46 (72) 95 Room Air 4.0 09/14/17 13:54 84 18 98 Nasal Cannula 4.0 09/14/17 12:00 Nasal Cannula 4.0 09/14/17 10:44 37.2 87 20 134/48 (76) 99 Nasal Cannula 4.0 09/14/17 08:00 Nasal Cannula 4.0 09/14/17 07:05 37.3 84 22 132/50 (77) 100 Nasal Cannula 4.0 09/14/17 07:03 89 18 99 Nasal Cannula 4.0 09/14/17 04:00 37.0 86 20 173/55 (94) 95 CPAP 09/14/17 04:00 95 CPAP 09/14/17 01:58 94 97 4.0 09/14/17 01:57 94 20 97 BiPAP/CPAP 4.0 09/14/17 00:01 37.4 96 20 165/68 (100) 93 CPAP 09/13/17 23:59 93 Nasal Cannula 4.0 CPAP 09/13/17 22:20 89 99 4.0 09/13/17 20:27 37.1 115 22 107/72 (84) 97 Nasal Cannula 4.0 09/13/17 20:00 Nasal Cannula 4.0 Physical Exam General Appearance: no apparent distress, + obese ENT: pharynx normal Neck: no JVD Respiratory/Chest: lungs clear, no respiratory distress, no accessory muscle use, + pertinent finding (airation is slightly better than last pm) Cardiovascular: regular rate, rhythm, no gallop, no murmur Abdomen: normal bowel sounds, non tender, soft, no organomegaly Extremities: + pedal edema (trace b/l ) Neurologic/Psychiatric: alert, oriented x 3 Laboratory Results Last 24 Hours Test 09/13/17 20:05 09/14/17 05:29 09/14/17 07:04 09/14/17 11:28 Bedside Glucose 245 mg/dl 121 mg/dl 206 mg/dl Hemoglobin 10.0 g/dL Hematocrit 32.9 % Prothrombin Time 22.3 SECONDS Prothromb Time International Ratio 2.2 Sodium Level 137 mmol/L Potassium Level 3.8 mmol/L Chloride Level 98 mmol/L Carbon Dioxide Level 40 mmol/L Anion Gap -1.0 mmol/L Blood Urea Nitrogen 29 mg/dl Creatinine 0.96 mg/dl Est Creatinine Clear Calc Drug Dose 64.7 ml/min Estimated GFR () 67.1 Estimated GFR (Non- 57.9 BUN/Creatinine Ratio 29.9 Random Glucose 159 mg/dl Calcium Level 8.2 mg/dl Test 09/14/17 16:22 Bedside Glucose 175 mg/dl Assessment and Plan 77yo female: 1. COPD with exacerbation - improving/resolving. Wean prednisone to 40mg qam tomorrow. Cont mucinex and incentive spirometry. Can hold budesonide due to systemic steroids. Cont NC O2 during day; BIPAP at HS (as tolerated). She completed her course of oral antibiotics and cxr yesterday did not show any discrete infiltrates. 2. LOGAN - BIPAP HS/naps, if tolerated. She uses [facility] as outpatient for supplies and sees [facility] - after d/c will attempt to get her nasal prong CPAP. She also needs titration study to ensure she is on the right pressures. 3. chronic hypoxic/hypercarbic respiratory failure - stable on home O2 amount. 4. proteus UTI - completed total of 7 days of abx. 5. morbid obesity with BMI 40 6. DVT proph - coumadin. Daily INR. INR again therapeutic today. 7. a fib - previously in NSR on amiodarone. However, this admission, converted back to a. fib with poor rate control despite increasing her amiodarone & titrating her calcium channel liliana. She finally converted back to NSR overnight. Will cont CCB and amiodarone as is. Appreciate Dr. Choi's recommendations. 8. intertrigo - nystatin powder TID. 9. uncontrolled T2DM - improved, with no further hypoglycemia. Leave lantus and novolog doses as is today. 10. iron def anemia - trans sat is low, ferritin also low-normal. Cont ferrous sulfate 325mg BID. Consider outpatient GI w/u for this. Fecal occult blood was negative this admission. CBC has been stable. 11. insomnia - trazodone. d/c home in the AM if tele is stable ambulate today in preparation for d/c home Discharge planning: home with home health
[2017-09-14] MEDS: TRAZODONE HCL 100 MG TAB PO SCH (21:32)
[2017-09-14] MEDS: MIRTAZAPINE TAB 15 MG TAB PO SCH (21:32)
[2017-09-14] MEDS: PRAMIPEXOLE DIHYDROCHLORIDE 0.5 MG TAB PO SCH (21:33)
[2017-09-14] MEDS: INSULIN GLARGINE SOLOSTAR 100 UNITS/ML 3 ML PEN SC SCH (21:37)
[2017-09-15] VITALS (10 sets, daily range): BP systolic 114–156; BP diastolic 52–65; PULSE 70–93; TEMP 36.7–36.9; O2SAT 95–100; Ht 167.6 cm; Wt 112.3 kg
[2017-09-15] MEDS: IPRATROPIUM BROMIDE NEB SOLN 0.02% 2.5 ML VIAL INH SCH ×3 (01:52→14:09)
[2017-09-15] MEDS: LEVALBUTEROL 1.25MG/3ML NEB INH SCH ×3 (01:53→14:09)
[2017-09-15] MEDS: AMIODARONE 200 MG TAB PO SCH ×2 (05:40→13:29)
[2017-09-15] MEDS: BUDESONIDE 0.25 MG/2 ML VIAL (PULMICORT) INH SCH (07:02)
[2017-09-15 07:27] LABS: HEMATOCRIT 34.4 % (37-47); HEMOGLOBIN 10.3 g/dL (12.0-16.0); MEAN CELL VOLUME 96.1 fL (80-100); MEAN CORPUSCULAR HEMOGLOBIN 28.8 pg (25-34); MEAN CORPUSCULAR HGB CONC 29.9 g/dl (32-36); MEAN PLATELET VOLUME 10.2 fL (7.4-10.4); PLATELET COUNT 216 K/uL (130-400); RED CELL DISTRIBUTION WIDTH CV 16.1 % (11.5-14.5); RED CELL DISTRIBUTION WIDTH SD 56.2 fL (36.4-46.3); WHITE BLOOD COUNT 9.88 K/uL (4.8-10.8)
[2017-09-15 07:36] LABS: INR 2.1 (0.9-1.1)
[2017-09-15 07:55] LABS: CALCIUM 8.4 mg/dl (8.5-10.1); CREATININE 0.9 mg/dl (0.60-1.20)
[2017-09-15] MEDS: LACTOBACILLUS ACIDOPHILUS (FLORANEX) TAB PO SCH ×3 (09:34→16:57)
[2017-09-15] MEDS: NYSTATIN POWDER 15GM BTL EXT SCH ×2 (09:34→13:28)
[2017-09-15] MEDS: BusPIRone 15 MG TAB PO SCH ×2 (09:35→13:29)
[2017-09-15] MEDS: DICLOFENAC SOD 1% GEL 100 GM TUBE EXT SCH ×3 (09:35→16:59)
[2017-09-15] MEDS: GUAIFENESIN 600 MG TABCR PO SCH (09:35)
[2017-09-15] MEDS: ASPIRIN 81 MG ECTAB PO SCH (09:36)
[2017-09-15] MEDS: LISINOPRIL 5 MG TAB PO SCH (09:36)
[2017-09-15] MEDS: FUROSEMIDE 40 MG TAB PO SCH (09:36)
[2017-09-15] MEDS: DILTIAZEM HCL 120 MG EXT REL CAP PO SCH (09:37)
[2017-09-15] MEDS: DOCUSATE SODIUM/SENNA 50/8.6MG TAB PO SCH (09:38)
[2017-09-15] MEDS: NYSTATIN SUSP 500,000 U/5 ML UDC PO SCH ×3 (09:38→16:57)
[2017-09-15] MEDS: PANTOprazole SOD 40 MG TAB PO SCH (09:38)
[2017-09-15] MEDS: FERROUS SULFATE 325 MG TAB PO SCH (09:39)
[2017-09-15] MEDS: ATORVASTATIN 40 MG TAB PO SCH (09:39)
[2017-09-15] MEDS: VENLAFAXINE HCL XR 150 MG CAPXR PO SCH (09:39)
[2017-09-15] MEDS: VENLAFAXINE HCL XR 75 MG CAPXR PO SCH (09:39)
[2017-09-15] MEDS: INSULIN ASPART 100 UNITS/ML 3 ML PEN SC SCH ×3 (09:42→16:56)
[2017-09-15] MEDS ORDERED: FLUCONAZOLE 50 MG TAB PO ONE (11:30)
[2017-09-15] MEDS ORDERED: VLTG EXT (14:03)
[2017-09-15] MEDS ORDERED: CRD200 PO (14:03)
[2017-09-15] MEDS ORDERED: DILT360C17 PO (14:03)
[2017-09-15] MEDS ORDERED: NYSCR15 TOP (14:03)
[2017-09-15] MEDS ORDERED: FRRS300 PO (14:03)
[2017-09-15] MEDS ORDERED: PRED10TA PO (14:03)
[2017-09-15] MEDS: WARFARIN TAB 1 MG, WARFARIN TAB 0.5 MG PO SCH (15:32)
--- NOTE | 2017-09-15 15:39 | Discharge Instructions ---
Discharge Instructions Date of Service September 15, 2017. Admission Reason for Admission: COPD exacerbation, Urinary tract infection Discharge Discharge Diagnosis / Problem: COPD exacerbation, Urinary Traction Infection, A. fib - all improved Discharge Goals Goal(s): Learn about illness, Diagnostic testing, Therapeutic intervention Activity Recommendations Activity Limitations: resume your previous activity (as tolerated) . Instructions / Follow-Up Instructions / Follow-Up From Dr. Trimble - You were treated for a combination of COPD exacerbation, Urinary Tract Infection , and uncontrolled atrial fibrillation during your stay. The COPD improved with use of antibiotics, steroids, and nebulizer treatments. Fortunately you never needed more than your typical amount of oxygen. Your bladder infection/urinary tract infection was treated with antibiotics. For your atrial fibrillation your amiodarone and cardizem were both increased by cardiology. You ultimately converted back to normal rhythm about 48 hours prior to your discharge. 1. COPD exacerbation - continue your oxygen, nebulizer treatments, and all inhalers as previous. You may take [id number] mucinex up to 1200mg twice a day as desired/needed for cough/congestion. You have completed a 7-day course of antibiotics for your COPD. At discharge please take a prednisone taper. Start this TOMORROW on Monday, . Prescription sent to your pharmacy for you. Please continue on your CPAP at night for sleep apnea. 2. On exam on day of discharge you had a lot of irritation in your genital region/vulvar region, likely from yeast infection. You received a dose of diflucan on 09/15/17 for this. Please use nystatin cream three times a day for 7-10 days to your vulvar region to clear any remaining infection. Sometimes taking a bath in Epsolm Salts and soaking helps soothe any irritation. 3. Atrial fibrillation - Dr. Choi from cardiology recommends the following - * amiodarone 200mg THREE TIMES A DAY for 7 days, THEN - * amiodarone 200mg TWICE A DAY for 7 days, THEN - * amiodarone 200mg ONCE A DAY thereafter * new prescription sent to your pharmacy * start this TONIGHT * please also note that your cardizem dose has been INCREASED to 360mg once a day * new prescription also sent to your pharmacy * start this TOMORROW on 09/16/17 4. Please resume your coumadin today per your previous dosing of 3mg once daily. Please have your coumadin level ("INR") checked on Monday09/18/17. 5. A repeat urine culture has been sent to ensure your urinary infection has cleared. If there is any growth on this culture I will call you at your home. 6. Voltaren gel may be used for knee arthritis. You can apply 4 grams to either knee up to 4 times a day as desired for knee pain. 7. Follow-up appointments - see separate section for details/times. You will be seeing your family doctor, the smoke chaser, and lung specialist all within the next 2 weeks. 8. Return to [facility] if - * you develop fever greater than 100.4 degrees * you have worsening shortness of breath, your have to turn up your oxygen, etc despite all of your nebs/inhalers/etc * you develop chest pain or rapid pulse / palpitations * any other concerns Current Hospital Diet Patient's current hospital diet: Diabetes Type 2 Diet Discharge Diet Recommended Diet: Diabetes Type 2 Diet Procedures Procedures Performed: chest x-rays - no evidence of congestive heart failure or pneumonia. x-rays of leg - no evidence of fracture. Pending Studies Studies pending at discharge: yes List of pending studies: repeat urine culture Laboratory Results Hemoglobin A1c Test 07/21/17 06:13 Range/Units Estimated Average Glucose 186 mg/dl Hemoglobin A1c 8.1 H 4.5-5.6 % Medical Emergencies . Who to Call and When: Medical Emergencies: If at any time you feel your situation is an emergency, please call 911 immediately. . Non-Emergent Contact Non-Emergency issues call your: Primary Care Provider, Motor Vehicle Licence Examiner Call Non-Emergent contact if: temperature is above 100.5, you have any medication questions . . "Provider Documentation" section prepared by Hunter Trimble. .
[2017-09-17] MEDS ORDERED: LACTCHW3 PO (09:36)
[2017-09-17] MEDS ORDERED: LEVO500T19 PO (09:36)
--- NOTE | 2017-09-19 00:56 | Discharge Summary ---
Discharge Summary Date of Service September 19, 2017. Discharge Summary Admission Date: Sep 05, 2017 at 19:37 Discharge Date: September 15, 2017 Discharge Disposition: Home with services Principal Diagnosis: COPD with exacerbation Problems/Secondary Diagnoses: 1. chronic hypoxic/hypercarbic respiratory failure on home O2, 4 liters 2. UTI x 2 3. candidal skin infection of groin/vulva 4. morbid obesity with BMI 40 5. paroxysmal atrial fibrillation - resolved, back in NSR 6. T2DM 7. hyperlipidemia 8. HTN 9. iron deficiency anemia 10. restless legs syndrome 11. chronic insomnia 12. h/o prior stroke 13. LOGAN Immunizations: Have You Had Influenza Vaccine: Yes Influenza Vaccine Date: Apr 12, 2013 History of Tetanus Vaccine?: Unknown Tetanus Immunization Date: Nov 09, 2007 History of Pneumococcal: Yes Pneumococcal Date: Mar 10, 2011 History of Hepatitis B Vaccine: No Procedures: chest x-rays Consultations: cardiology - Il Ese Moeller PT, OT Medication Reconciliation New Medications: Lactobacillus (Lactinex) Chw 4 TAB PO TID for 10 Days, #120 CHW 0 Refills Levofloxacin (Levaquin) 500 Mg Tab 1 TAB PO DAILY for 7 Days, #7 TAB Nystatin (Nystatin) 45 Appln/15 Gm Cr 1 APPLN TOP TID for 10 Days, #30 GM 1 Refill apply to vulva/vaginal region Prednisone (Prednisone) 10 Mg Tab 10 MG PO DIRECTED, #15 TAB 0 Refills start 09/16/17: take 4 tabs day 1, 3 tabs days 2/3, 2 tabs days 4/5, 1 tab day 6 then stop. Diclofenac Sod (Voltaren) 100 Appln/100 Gm Gel 1 APPLN EXT QID, #1 TUBE 1 Refill apply 4 grams to either knee up to 4 times a day Ferrous Sulfate (Ferrous Sulfate) 325 Mg Tab 325 MG PO BID, #60 TAB 1 Refill Changed Medications: Amiodarone HCl (Amiodarone HCl) 200 Mg Tab 200 MG PO DIRECTED, #60 TAB 1 Refill (Changed from: Amiodarone Hcl 100 Mg Tab 100 Mg PO DAILY) take 1 tab TID x 1 week, then 1 tab BID x 1 week, then 1 tab daily thereafter Diltiazem Hcl Coated Beads (Cardizem Cd) 360 Mg Cap 1 CAP PO DAILY for 30 Days, #30 CAP 5 Refills (Changed from: Diltiazem Hcl Coated Beads (Diltiazem Hcl Er) 180 Mg Cap 180 Mg PO DAILY) Continued Medications: Aspirin (Aspirin Ec) 81 Mg Tab 81 MG PO DAILY Atorvastatin (Lipitor) 80 Mg Tab 80 MG PO DAILY B-Complex Vitamins (Vitamin B Complex) 1 Tab Tab 1 TAB PO DAILY Budesonide (Inhalation) (Pulmicort Respules 0.25MG/2ML) 0.25 Mg/2 Ml Radha 0.25 MG NEB BID Buspirone HCl (Buspirone HCl) 15 Mg Tab 15 MG PO TID Cyanocobalamin (Vitamin B-12) 500 Mcg Tab 1000 MCG PO DAILY Fluticasone-Salmeterol (Airduo Respiclick 113/14 113-14 Mcg/Act) 1 Inh Inh 1 PUFF INH DAILY Furosemide (Furosemide) 40 Mg Tab 40 MG PO QAM Insulin Glargine (Lantus Solostar) 100 Unit/Ml Inj 25 UNITS SC QPM Insulin Lispro (Human) (Humalog Kwikpen) 100 Unit/Ml Inj 1 DOSE SC ACHS COVERAGE DIRECTED BY SLIDING SCALE Ipratropium [place] (Atrovent 0.02% Soln) 2.5 Ml Nebu 2.5 ML NEB Q6H Lisinopril (Lisinopril) 5 Mg Tab 5 MG PO QAM Mirtazapine (Remeron) 30 Mg Tab 30 MG PO HS Pantoprazole (Pantoprazole Sodium) 40 Mg Tab 40 MG PO QAM Pramipexole Dihydrochloride (Pramipexole Dihydrochlori) 1 Mg Tab 1 MG PO HS Trazodone HCl (Trazodone HCl) 100 Mg Tab 200 MG PO HS Venlafaxine Hcl (Effexor Extended Rel) 150 Mg Capcr 150 MG PO DAILY TAKE ONE 150 MG CAPSULE ALONG WITH ONE 75 MG CAPSULE TO EQUAL 225 MG DAILY DOSE Venlafaxine Hcl (Effexor Extended Rel) 75 Mg Capcr 75 MG PO DAILY TAKE ONE 75 MG CAPSULE ALONG WITH ONE 150 MG CAPSULE TO EQUAL 225 MG DAILY DOSE Warfarin Sod (Jantoven) 3 Mg Tab 3 MG PO DAILY TAKE 3 MG EVERY DAY OR OTHERWISE DIRECTED TO TAKE BY ANTICOAGULATION CLINIC/MD Discharge Exam Physical Exam: General Appearance: no apparent distress, + obese ENT: pharynx normal Neck: no JVD Respiratory/Chest: lungs clear, no respiratory distress, no accessory muscle use, + pertinent finding (airation fair, no wheeze, no rales) Cardiovascular: regular rate, rhythm, no gallop, no murmur, normal peripheral pulses Abdomen / GI: normal bowel sounds, non tender, soft, no organomegaly Extremities: no pedal edema Neurologic/Psychiatric: alert, oriented x 3 Hospital Course HISTORY OF PRESENT ILLNESS: 77 year old female with past medical history of atrial fibrillation on amiodarone/Coumadin/Cardizem, COPD, chronic hypoxic/hypercarbic respiratory failure on 4 L of oxygen at home, type 2 diabetes mellitus, anxiety, obstructive sleep apnea, morbid obesity and restless leg syndrome who presented with worsening shortness of breath. About 24 hours prior to admission she developed severe shortness of breath and started taking her nebulizer machine more frequently without any relief of her symptoms. She also had a productive cough with yellowish mucus. Denied any fever but admitted to some chills and diaphoresis. Presented to the ED and she received bronchodilators without noticeable improvement. Admission chest x-ray failed to show any discrete pneumonia. HOSPITAL COURSE: The patient's COPD exacerbation was treated in the customary fashion with scheduled bronchodilators, IV steroids, mucolytics, and pulmonary toilet. Antibiotics were employed which also provided treatment for her concomitant proteus UTI. She was continued on her NC O2 4 liters continuously during the day and BIPAP at night-time. With time she made improvement in all pulmonary symptoms. She will complete a course of prednisone following discharge for her COPD exacerbation. Her stay was complicated by rapid paroxysmal atrial fibrillation, uncontrolled T2DM due to the use of steroids, as well as a 2nd UTI. She was seen in consult by cardiology for the rapid a. fib who recommended increasing her amiodarone and calcium channel liliana. She finally converted back to NSR about 48 hours prior to discharge. She will take amiodarone 200mg TID x 1 week, followed by 200mg BID x 1 week, and then take 200mg once daily thereafter. Her cardizem CD was increased to 360mg daily during this hospital stay. INR on day of discharge was 2.1. About 48 hours after her omnicef course was completed (again this had been employed for her COPD exacerbation AND the proteus UTI) the patient began to complain of dysuria once again. Repeat cath u/a actually looked better than her admission u/a. Urine culture results, which actually returned after she had been discharged, showed MDR klebsiella however. She was called at home and advised to take a 7-day course of levaquin 500mg once daily for this. Some of her dysuria may also have been a candidal rash in her vulvar region. Lastly, the patient had evidence of mild iron deficiency anemia. Transferrin saturation was found to be low and ferritin was also low-normal at 40. She was asked to take ferrous sulfate 325mg BID for about 2 months. Fecal occult blood was negative and CBC remained stable throughout her stay. [id number] I spoke with the patient about requesting a GI referral from her PCP for consideration of GI work-up. All other medical problems remained stable while here. PT/OT both cleared the patient for home. Total Time Spent: Greater than 30 minutes This includes examination of the patient, discharge planning, medication reconciliation, and communication with other providers. Discharge Instructions Please refer to the electronic Patient Visit Report (Discharge Instructions) for additional information. Follow-Up 1. Ray WORKMAN on MondaySeptember 18 at 11:00 am. 2. [facility] Cardiology Office with Zoey Cameron PA-C on September 28 at 2:30 pm. 3. [facility]'s Pulmonology Office with Jessica Sparks PA-C on MondaySeptember 26 at 1:00 pm. Additional Copies To Jessica Sparks PA-C; Ray Pereira III, CRNP; Zoey Cameron PA-C
== END 2017-09-15 18:02 | disposition home health service (06) | DRG 190 ==
LOC: C.EDB 14:42 → C.MED 19:37 → ENRESERV 19:51 → C.MS2W 09-07 16:47 → ENRESERV 09-08 18:14 → C.2E 09-08 18:43
PROVIDERS: ADMIT Internal Medicine; ATTEND Internal Medicine
DX: J44.1 Chronic obstructive pulmonary disease with (acute) exacerbation (principal); J96.21 Acute and chronic respiratory failure with hypoxia; J96.22 Acute and chronic respiratory failure with hypercapnia; N39.0 Urinary tract infection, site not specified; E66.2 Morbid (severe) obesity with alveolar hypoventilation; D50.9 Iron deficiency anemia, unspecified; G25.81 Restless legs syndrome; F41.9 Anxiety disorder, unspecified; I10 Essential (primary) hypertension; J40 Bronchitis, not specified as acute or chronic; M79.605 Pain in left leg; E78.00 Pure hypercholesterolemia, unspecified; E78.5 Hyperlipidemia, unspecified; L30.4 Erythema intertrigo; I73.9 Peripheral vascular disease, unspecified; I05.0 Rheumatic mitral stenosis; I48.0 Paroxysmal atrial fibrillation; E11.65 Type 2 diabetes mellitus with hyperglycemia; Z68.38 Body mass index [BMI] 38.0-38.9, adult; B96.1 Klebsiella pneumoniae [K. pneumoniae] as the cause of diseases classified elsewhere; B96.4 Proteus (mirabilis) (morganii) as the cause of diseases classified elsewhere; Z91.018 Allergy to other foods; Z79.01 Long term (current) use of anticoagulants; Z87.01 Personal history of pneumonia (recurrent); Z99.81 Dependence on supplemental oxygen; Z79.4 Long term (current) use of insulin; Z98.51 Tubal ligation status; Z79.82 Long term (current) use of aspirin; Z80.3 Family history of malignant neoplasm of breast; Z82.49 Family history of ischemic heart disease and other diseases of the circulatory system; Z83.3 Family history of diabetes mellitus

== ENCOUNTER → 2017-12-12 | Outpatient (CLI) | payer OTHER, MEDICARE ==
[~2017-12-12] MED LIST changes: +AMIO200T4 PO; +ASPI81TA28 PO; +ATOR-26 PO; +B-COTAB18 PO; +BUDE0.253 NEB; -DILT-113 PO; +DILT360C17 PO; +DSY100 PO; +EFFSR150 PO; +FLUT1INH14 INH; +FRRS300 PO; -FURO80TA63 PO; +INSDGIPEN SC; +INSU100I2 SC; +IPRA1AER2 INH; -LISI-729 PO; +LISI-730 PO; -LSX/80 PO; +LSX40 PO; -MIRT30TA2 PO; +MIRT30TA3 PO; +NYST100033 TOP; -PANT40TA PO; +PANT40TA2 PO; -PRAM0.5T13 PO; +PRAM1TAB10 PO; +PRED10TA PO; -PRED20TA PO; +VLTG EXT
--- NOTE | 2017-12-12 09:34 | DIAGNOSTIC IMAGING REPORT ---
CHEST 2 VIEWS ROUTINE CLINICAL HISTORY: R60.9 [id number] Short of breath on [id number] dyspnea COMPARISON STUDY: 10/12/2017 FINDINGS: The bones soft tissues and hemidiaphragms are normal. The cardiomediastinal silhouette is normal. The lungs are clear. The pulmonary vasculature is normal. IMPRESSION: Negative chest. The above report was generated using voice recognition software. It may contain grammatical, syntax or spelling errors. Electronically signed by: Jose Angel Richter M.D. 12/12/2017 9:32 AM Dictated Date/Time: 12/12/2017 9:32 AM
== END | disposition home or self-care (01) ==
LOC: C.RAD1850 09:11
PROVIDERS: ATTEND Physician Assistant
DX: R60.9 Edema, unspecified (principal); R06.02 Shortness of breath

== ENCOUNTER 2017-12-30 12:36 | Emergency (ER) | payer OTHER, MEDICARE ==
[~2017-12-30] VITALS: Ht 162.6 cm; Wt 115.1 kg
[2017-12-30 12:49] VITALS: TEMP 36.9; O2SAT 93; Ht 162.6 cm; Wt 115.1 kg
[2017-12-30] MEDS ORDERED: SODIUM CHLORIDE 0.9% 250ML 250 ML IV STA (13:14)
[2017-12-30] MEDS ORDERED: ALBUT/IPRATROP 3MG/0.5MG NEB 3 ML VIAL INH STA ×2 (13:14→14:50)
[2017-12-30] MEDS ORDERED: METHYLPREDNISOLONE IV 60 MG in SYRINGE 0 ML IV STA (13:14)
[2017-12-30] MEDS ORDERED: AZITHROMYCIN 250 MG TAB PO ONE (13:15)
--- NOTE | 2017-12-30 13:23 | EMERGENCY ROOM VISIT NOTE ---
History First contact with patient: 13:01 Chief Complaint: SHORTNESS OF BREATH Stated Complaint: SOB Nursing Triage Summary: Pt brought in via EMS. Pt states for the pst two days she has been having increased SOB and today she woke up and "it hit her all at once." Pt normally on 4 liters NC at home. Pt took Trelegy inhaler x1 today with no relief. O2 sat when EMS arrived was 90% on 4 liters. Pt placed on 6 liters and increased to 96%. EMS initiated IV access. 18g in the left AC. BSG 324. History of Present Illness The patient is a 77 year old female who presents to the Emergency Room via EMS with complaints of shortness of breath that started 4 days ago. The patient has a history of COPD. She is oxygen dependent, on 4 L per nasal cannula at all times. She reports a nonproductive cough. No fever. She denies any chest pain. No lightheaded or dizziness. She has had a poor appetite. She denies any nausea or vomiting. The patient took her inhalers this morning without any relief. Review of Systems 10 system review performed and negative unless noted in HPI or below Past Medical/Surgical History Medical Problems: (1) Acute and chronic respiratory failure with hypoxia (2) Acute blood loss anemia (3) Acute on chronic respiratory failure (4) Cellulitis of both lower extremities (5) Diab Zoey Wo Compl, Type Ii Or Unspec Type, Not Uncntrld (6) Diverticulosis Colon (W/O Ment Of Hemorrhage) (7) Hyperlipidemia Nec/Nos (8) Hypertension Nos (9) Left lower lobe pneumonia (10) Obstr Chronic Bronchitis, W (Acute) Exacerbation (11) Paroxysmal a-fib (12) Pneumonia, Organism Nos (13) Pure Hypercholesterolem (14) Symptomatic anemia (15) Tubal Ligation Status Family History Diabetes mellitus FH: cancer (lymphoma, breast cancer) Hypertension Social History Smoking Status: Former Smoker Alcohol Use: none Drug Use: none Marital Status: Housing Status: lives with family Occupation Status: retired Current/Historical Medications Scheduled Amiodarone Hcl (Cordarone), 200 MG PO DAILY Aspirin (Aspirin Ec), 81 MG PO DAILY Atorvastatin (Lipitor), 80 MG PO DAILY Azithromycin (Zithromax), 250 MG PO DAILY B-Complex Vitamins (Vitamin B Complex), 1 TAB PO DAILY Buspirone HCl (Buspirone HCl), 15 MG PO TID Dabigatran Etexilate Mesylate (Pradaxa), 1 CAP PO BID Diclofenac Sod (Voltaren), 1 APPLN EXT QID Diltiazem Hcl Coated Beads (Cardizem Cd), 1 CAP PO DAILY Ferrous Sulfate (Ferrous Sulfate), 325 MG PO BID Fluticasone-Salmeterol (Airduo Respiclick 113/14 113-14 Mcg/Act), 1 PUFF INH HOLD Bwcnzxizsxg-Rimjnqjmyrvv-Xkbjy (Trelegy Ellipta 100-62.5-25 Mcg/INH), 1 PUFF DAILY Furosemide (Furosemide), 40 MG PO QAM Insulin Glargine (Lantus Solostar), 25 UNITS SC BID Insulin Lispro (Human) (Humalog Kwikpen), 1 DOSE SC ACHS Ipratropium-Albuterol (Combivent Respimat), 1 PUFFS INH QID Levalbuterol (Levalbuterol HCl), 1 UNIT Q4H Lisinopril (Lisinopril), 5 MG PO QAM Lisinopril (Prinivil), 5 MG PO DAILY Mirtazapine (Remeron), 30 MG PO HS Pantoprazole (Pantoprazole Sodium), 40 MG PO QAM Pramipexole (Mirapex), 1 MG PO HS Pramipexole Dihydrochloride (Pramipexole Dihydrochlori), 1 MG PO HS Prednisone (Prednisone), 50 MG PO DAILY Trazodone HCl (Trazodone HCl), 200 MG PO HS Venlafaxine Hcl (Effexor Extended Rel), 150 MG PO DAILY Venlafaxine Hcl (Effexor Extended Rel), 75 MG PO DAILY Scheduled PRN Budesonide (Inhalation) (Pulmicort Respules 0.25MG/2ML), 0.25 MG NEB BID PRN for SOB/Wheezing Nystatin (Topical) (Nystatin), 1 APPLN TOP BID PRN for Miscellaneous Medications Lorazepam (Ativan), 0.5 MG PO Physical Exam Vital Signs Date Time Temp Pulse Resp B/P (MAP) Pulse Ox O2 Delivery O2 Flow Rate FiO2 12/30/17 17:56 80 24 143/65 95 12/30/17 16:59 81 24 126/58 92 Room Air 12/30/17 15:56 74 28 122/70 96 Nasal Cannula 4.0 12/30/17 15:11 88 20 95 12/30/17 15:02 129/55 12/30/17 14:41 71 27 97 12/30/17 14:36 74 25 92 12/30/17 14:34 132/53 12/30/17 14:06 75 32 96 12/30/17 13:36 77 22 95 12/30/17 13:32 122/59 12/30/17 13:06 79 23 95 12/30/17 13:01 157/57 12/30/17 12:49 93 Nasal Cannula 6.0 12/30/17 12:49 36.9 84 19 153/69 93 Nasal Cannula 6.0 12/30/17 12:49 Nasal Cannula 6.0 12/30/17 12:47 82 12/30/17 12:42 153/69 Physical Exam VITALS: Vitals are noted on the nurse's note and reviewed by myself. Vital signs stable. GENERAL: 77-year-old female, in mild respiratory distress,, SKIN: The skin was intact HEAD: Normocephalic atraumatic. EYES: . Conjunctivae without injection, sclerae without icterus. Extraocular movements intact. MOUTH: Mucous membranes slightly dry NECK: Supple without nuchal rigidity. No lymphadenopathy. No JVD. HEART: Regular rate and rhythm systolic murmur heard best at the right upper sternal border LUNGS: Diffuse wheezing in all lung allen. Mild tachypnea. No crackles or rhonchi. ABDOMEN: Positive bowel sounds x 4.Soft, nontender, without organomegaly. No guarding or rebound tenderness. MUSCULOSKELETAL: No muscle atrophy, erythema, or edema noted. Strength 5/5 throughout NEURO: Patient was alert and oriented to person place and time. Normal sensation to touch. No focal neurological deficits. Medical Decision & Procedures ER Provider Diagnostic Interpretation: Chest x-ray IMPRESSION: 1. Mild cardiomegaly with volume overload and congestive change. No srinivas pulmonary edema. Evaluation of the chest is limited by portable radiograph secondary to body habitus. Electronically signed by: Eddie Waters M.D. 12/30/2017 2:12 PM Dictated Date/Time: 12/30/2017 2:11 PM Laboratory Results 12/30/17 14:08 Red Blood Count 4.00, Mean Corpuscular Volume 96.8, Mean Corpuscular Hemoglobin 29.0, Mean Corpuscular Hemoglobin Concent 30.0, Mean Platelet Volume 10.8, Neutrophils (%) (Auto) 76.7, Lymphocytes (%) (Auto) 14.1, Monocytes (%) (Auto) 7.7, Eosinophils (%) (Auto) 1.1, Basophils (%) (Auto) 0.2, Neutrophils # (Auto) 8.29, Lymphocytes # (Auto) 1.52, Monocytes # (Auto) 0.83, Eosinophils # (Auto) 0.12, Basophils # (Auto) 0.02 12/30/17 14:08 Test 12/30/17 14:08 12/30/17 14:35 12/30/17 16:36 12/30/17 17:50 White Blood Count 10.80 K/uL (4.8-10.8) Red Blood Count 4.00 M/uL (4.2-5.4) Hemoglobin 11.6 g/dL (12.0-16.0) Hematocrit 38.7 % (37-47) Mean Corpuscular Volume 96.8 fL (80-100) Mean Corpuscular Hemoglobin 29.0 pg (25-34) Mean Corpuscular Hemoglobin Concent 30.0 g/dl (32-36) Platelet Count 185 K/uL (130-400) Mean Platelet Volume 10.8 fL (7.4-10.4) Neutrophils (%) (Auto) 76.7 % Lymphocytes (%) (Auto) 14.1 % Monocytes (%) (Auto) 7.7 % Eosinophils (%) (Auto) 1.1 % Basophils (%) (Auto) 0.2 % Neutrophils # (Auto) 8.29 K/uL (1.4-6.5) Lymphocytes # (Auto) 1.52 K/uL (1.2-3.4) Monocytes # (Auto) 0.83 K/uL (0.11-0.59) Eosinophils # (Auto) 0.12 K/uL (0-0.5) Basophils # (Auto) 0.02 K/uL (0-0.2) RDW Standard Deviation 47.4 fL (36.4-46.3) RDW Coefficient of Variation 13.5 % (11.5-14.5) Immature Granulocyte % (Auto) 0.2 % Immature Granulocyte # (Auto) 0.02 K/uL (0.00-0.02) Anion Gap 5.0 mmol/L (3-11) Est Creatinine Clear Calc Drug Dose 64.4 ml/min Estimated GFR () 68.8 Estimated GFR (Non- 59.3 BUN/Creatinine Ratio 19.4 (10-20) Calcium Level 9.2 mg/dl (8.5-10.1) Urine Color YELLOW Urine Appearance CLEAR (CLEAR) Urine pH 5.5 (4.5-7.5) Urine Specific [place] 1.014 (1.000-1.030) Urine Protein TRACE (NEG) Urine Glucose (UA) 2+ (NEG) Urine Ketones NEG (NEG) Urine Occult Blood NEG (NEG) Urine Nitrite NEG (NEG) Urine Bilirubin NEG (NEG) Urine Urobilinogen NEG (NEG) Urine Leukocyte Esterase NEG (NEG) Urine WBC (Auto) 1-5 /hpf (0-5) Urine RBC (Auto) 0-4 /hpf (0-4) Urine Hyaline Casts (Auto) 1-5 /lpf (0-5) Urine Epithelial Cells (Auto) 10-20 /lpf (0-5) Urine Bacteria (Auto) NEG (NEG) Arterial Blood pH 7.36 (7.35-7.45) Arterial Blood Partial Pressure CO2 69 mmHg (35-46) Arterial Blood Partial Pressure O2 69 mm/Hg (80-95) Arterial Blood HCO3 38 mmol/L (19-24) Arterial Blood Oxygen Saturation 91.8 % (90-95) Arterial Blood Base Excess 10.1 mEq/L (-9-1.8) Arterial Blood Gas Delivery 4L Red Test POS (POS) Bedside Glucose 129 mg/dl (70-90) Medications Administered Medications (Trade) Dose Ordered Sig/Buddy Route Start Time Stop Time Status Last Admin Dose Admin Albuterol/ Ipratropium (Duoneb) 3 ml ONE STAT INH 12/30/17 13:14 12/30/17 13:18 DC 12/30/17 13:36 3 ML Methylprednisolone Sodium Succinate 60 mg/Syringe 0.96 ml @ 1.5 mls/min ONE STAT IV 12/30/17 13:14 12/30/17 13:18 DC 12/30/17 14:23 1.5 MLS/MIN Sodium Chloride 250 ml @ 999 mls/hr Q16M STAT IV 12/30/17 13:14 12/30/17 13:29 DC 12/30/17 13:14 999 MLS/HR Azithromycin (Zithromax Tab) 500 mg NOW ONCE PO 12/30/17 13:15 12/30/17 13:18 DC 12/30/17 13:38 500 MG Albuterol/ Ipratropium (Duoneb) 3 ml ONE STAT INH 12/30/17 14:50 12/30/17 14:51 DC 12/30/17 15:23 3 ML Prednisone (PredniSONE TAB) 20 mg NOW STAT PO 12/30/17 17:37 12/30/17 17:39 DC 12/30/17 17:44 20 MG ECG Per My Interpretation Indication: SOB/dyspnea Rate (beats per minute): 82 Rhythm: normal sinus Change: no significant change ED Course Patient was seen and examined Vital signs including blood pressure were reviewed medications list was verified with patient Labs were obtained, and a saline lock was established The patient was ordered a DuoNeb treatment, Solu-Medrol 60 mg IV and a 250 cc normal saline bolus Imaging was performed and reviewed Upon reevaluation, the patient was still complaining of some shortness of breath. She was given an additional nebulizer treatment. The patient was again reassessed and resting comfortably. We discussed her workup. We discussed disposition options She and her family were comfortable being discharged home for now. Discharge instructions were reviewed, and she was discharged in good condition Medical Decision Differential diagnosis: COPD exacerbation, acute on chronic respiratory failure , pneumonia, cardiac abnormality, pulmonary embolus, anemia among others were entertained This patient is a 77-year-old female with a history of chronic respiratory failure secondary to COPD the presents to the emergency department with increased shortness of breath and a nonproductive cough. On exam, she was mildly tachypneic and significantly wheezing. Her labs are fairly unremarkable. There is no leukocytosis or severe anemia. I had a low suspicion of PE as the patient is currently taking Pradaxa for a history of paroxysmal A. fib. The patient's chest x-ray does not show any signs of pneumonia. This is likely an acute exacerbation of her COPD. The patient's oxygen level was stable in the low 90s on her typical 4 L per nasal cannula. The patient will be treated with a short course of steroids in addition to azithromycin. I highly advise close follow-up. I also advised the patient to return immediately to the emergency department if she worsens or she is not getting better in the next 1-2 days. The patient and the family are in agreement with this plan. This chart was completed in part utilizing [employer] Speech Voice Recognition software. Attempts were made to minimize the grammatical errors, random word insertions, pronoun errors and incomplete sentences. Any formal questions or concerns about the content, text or information contained within the body of this dictation should be directly addressed to the provider for clarification. Medication Reconcilliation Current Medication List: was personally reviewed by me Blood Pressure Screening Patient's blood pressure: Normal blood pressure Impression Primary Impression: COPD exacerbation Departure Information Dispostion Home / Self-Care Condition GOOD Prescriptions Azithromycin (Zithromax) 250 Mg Tab 250 MG PO DAILY for 4 Days, #4 TAB Prov: Carolina Louise PA-C 12/30/17 Prednisone (Prednisone) 50 Mg Tab 50 MG PO DAILY for 4 Days, #4 TAB Prov: Carolina Louise PA-C 12/30/17 Referrals Ray Pereira III, CRNP (PCP) Patient Instructions My [facility] Additional Instructions You have been evaluated in the emergency department for difficulty breathing. This is likely an exacerbation of your COPD. Please continue your nebulizer treatments as prescribed Please continue oxygen at 4 L as prescribed Please take the ENTIRE course of azithromycin. First dose will be tomorrow morning. Please take prednisone 20 mg tablet was provided in the emergency department tonight Please start prednisone 50 mg 1 tablet daily for 4 days tomorrow morning Please carefully monitor your blood sugars as they will increase on the prednisone Please follow-up as soon as possible with your primary care physician Do not hesitate to return immediately to the emergency department with any new, worsening or concerning symptoms; especially, increased difficulty breathing, chest pain, fever or severe lightheadedness. It was a pleasure participating in your care today
--- NOTE | 2017-12-30 14:14 | DIAGNOSTIC IMAGING REPORT ---
CHEST ONE VIEW PORTABLE CLINICAL HISTORY: 77 years-old Female presenting with SOB. TECHNIQUE: Portable upright AP view of the chest was obtained. COMPARISON: 12/12/2017. FINDINGS: Atherosclerosis of the aortic arch. Cardiac silhouette mildly enlarged. Pulmonary vascular prominence with bronchial wall thickening. Hazy bibasilar opacities. No large pleural effusion or pneumothorax. Degenerative changes of the thoracic spine. IMPRESSION: 1. Mild cardiomegaly with volume overload and congestive change. No srinivas pulmonary edema. Evaluation of the chest is limited by portable radiograph secondary to body habitus. Electronically signed by: Eddie Waters M.D. 12/30/2017 2:12 PM Dictated Date/Time: 12/30/2017 2:11 PM
[2017-12-30 14:27] LABS: BASO % 0.2 %; BASO ABS # 0.02 K/uL (0-0.2); EOS % 1.1 %; EOS ABS # 0.12 K/uL (0-0.5); HEMATOCRIT 38.7 % (37-47); HEMOGLOBIN 11.6 g/dL (12.0-16.0); IG# 0.02 K/uL (0.00-0.02); LYMPH % 14.1 %; LYMPH ABS # 1.52 K/uL (1.2-3.4); MEAN CELL VOLUME 96.8 fL (80-100); MEAN PLATELET VOLUME 10.8 fL (7.4-10.4); MONO % 7.7 %; MONO ABS # 0.83 K/uL (0.11-0.59); NEUT % 76.7 %; NEUT ABS # 8.29 K/uL (1.4-6.5); PLATELET COUNT 185 K/uL (130-400); RED CELL DISTRIBUTION WIDTH CV 13.5 % (11.5-14.5); RED CELL DISTRIBUTION WIDTH SD 47.4 fL (36.4-46.3)
[2017-12-30 14:46] LABS: CALCIUM 9.2 mg/dl (8.5-10.1); CREATININE 0.94 mg/dl (0.60-1.20)
[2017-12-30] MEDS ORDERED: DABI150C PO (15:05)
[2017-12-30] MEDS ORDERED: PRAM0.1212 PO (15:05)
[2017-12-30] MEDS ORDERED: LORA-741 PO (15:05)
[2017-12-30] MEDS ORDERED: LISI-729 PO (15:05)
[2017-12-30] MEDS ORDERED: XPNINS125 (15:05)
[2017-12-30] MEDS ORDERED: FLUT1AER14 (15:05)
--- NOTE | 2017-12-30 16:34 | DIAGNOSTIC IMAGING REPORT ---
HEAD WITHOUT CONTRAST (CT) CLINICAL HISTORY: 77 years-old Female presenting with increased confusion. TECHNIQUE: Multidetector CT imaging of the head was performed without the use of intravenous contrast. IV contrast: None. A dose lowering technique was used consistent with the principles of ALARA (as low as reasonably achievable). COMPARISON: 07/19/2017. CT DOSE (mGy.cm): The estimated cumulative dose is 601.98 mGy.cm. FINDINGS: Delivery Lead topogram: Unremarkable. Ventricles and sulci normal in size. Brain parenchyma normal in appearance with preserved cornell-white differentiation. No mass effect or midline shift. No hemorrhage or acute territorial infarct. No extra-axial fluid collection. Trace fluid in the right mastoid air cells. Calvarium intact. IMPRESSION: 1. No acute intracranial abnormality. Electronically signed by: Eddie Waters M.D. 12/30/2017 4:33 PM Dictated Date/Time: 12/30/2017 4:30 PM
[2017-12-30] MEDS ORDERED: AZIT250T PO (17:36)
[2017-12-30] MEDS ORDERED: PRED50TA PO (17:36)
[2017-12-30 17:56] VITALS: BP 143/65; PULSE 80; O2SAT 95
== END 2017-12-30 17:56 | disposition home or self-care (01) ==
LOC: EDBD 12:36 → C.EDB 12:37
DX: J44.1 Chronic obstructive pulmonary disease with (acute) exacerbation (principal); Z99.81 Dependence on supplemental oxygen; I48.0 Paroxysmal atrial fibrillation; Z79.01 Long term (current) use of anticoagulants; Z79.82 Long term (current) use of aspirin; E78.5 Hyperlipidemia, unspecified; I10 Essential (primary) hypertension; D64.9 Anemia, unspecified; E11.9 Type 2 diabetes mellitus without complications; Z79.4 Long term (current) use of insulin; Z87.891 Personal history of nicotine dependence; Z87.09 Personal history of other diseases of the respiratory system

== ENCOUNTER 2018-05-14 22:58 | Inpatient (IN) ==
[2018-05-14] MEDS ORDERED: ALBUT/IPRATROP 3MG/0.5MG NEB 3 ML VIAL ONE (23:29)
[2018-05-14] MEDS ORDERED: methylPREDNISolone 125 MG/2 ML VIAL IV STA (23:36)
[2018-05-15 00:02] LABS: Alanine Aminotransferase 33 U/L (12-78); Albumin Level 2.7 gm/dl (3.4-5.0); Aspartate Aminotransferase 33 U/L (15-37); BUN Creatinine Ratio 18.7 (10-20); Blood Urea Nitrogen 18 mg/dl (7-18); Calcium 9.2 mg/dl (8.5-10.1); Carbon Dioxide 40 mmol/L (21-32); Chloride 90 mmol/L (98-107); Est GFR (African American) 67.4; Est GFR (Non-African American) 58.2; Glucose 295 mg/dl (70-99); Sodium 137 mmol/L (136-145)
[2018-05-15 00:07] LABS: Albumin Globulin Ratio 0.5 (0.9-2); Alkaline Phosphatase 156 U/L (45-117); Bilirubin,Total 0.5 mg/dl (0.2-1); Globulin 5.3 gm/dl (2.5-4.0); NT Pro B Type Natriuretic Pept 169 pg/ml (0-1800); Troponin I < 0.015 ng/ml (0-0.045)
[2018-05-15 00:45] LABS: Basophils # (auto) 0.03 K/uL (0-0.2); Basophils % (auto) 0.6 %; Hematocrit (blood only) 40.7 % (37-47); Hemoglobin 12.3 g/dL (12.0-16.0); Immature Granulocytes # (auto) 0.05 K/uL (0.00-0.02); Immature Granulocytes % (auto) 0.9 %; Lymphocytes # (auto) 0.53 K/uL (1.2-3.4); Mean Corpuscular Hgb Conc 30.2 g/dL (32-36); Mean Platelet Volume 10.7 fL (7.4-10.4); Monocytes # (auto) 0.23 K/uL (0.11-0.59); Monocytes % (auto) 4.3 %; Neutrophils # (auto) 4.47 K/uL (1.4-6.5); Neutrophils % (auto) 84.2 %; Platelet Count 283 K/uL (130-400); RDW Coefficient of Variation 14.7 % (11.5-14.5); RDW Standard Deviation 50.3 fL (36.4-46.3); Red Blood Count 4.33 M/uL (4.2-5.4); White Blood Count 5.31 K/uL (4.8-10.8)
[2018-05-15 00:55] LABS: Partial Thromboplastin Ratio 1.1; Partial Thromboplastin Time 28.5 Seconds (21.0-31.0)
[2018-05-15 04:05] LABS: Appearance Urine Clear (Clear); Bacteria Urine Automated Negative (Negative); Bilirubin Urine Negative (Negative); Color Urine Yellow; Epithelial Cell Urine Auto >30 /lpf (0-5); Glucose Urine UA 2+ (Negative); Ketones Urine Negative (Negative); Leukocyte Esterase Urine Negative (Negative); Nitrite Urine Negative (Negative); Protein Urine 1+ (Negative); Specific Gravity Urine 1.023 (1.000-1.030); Urobilinogen Urine Negative (Negative); pH Urine 5.5 (4.5-7.5)
--- NOTE | 2018-05-15 04:26 | History & Physical Report ---
Date of Service May 15, 2018 Assessment & Plan (1) Hypoxia: 78 y/o F Hx COPD - 4L 02, AF, HTN, HLD, DM II, LOGAN. Presents with progressive SOB, a cough and hemoptysis x 3-4 days. She presented to the ER with moderate respiratory distress. She responded to a breathing treatment and steroids. Initial labs demonstrate hyperglycemia and are otherwise unremarkable. A CXR appears unchanged from a previous. The pt denies CP or fevers. 1) COPD exacerbation - placed on steroids, scheduled , protocol. 2) Hemoptysis - may be due to cough, irritation and Pradaxa use. Pradaxa is held pending AM ssessment. We will request sputu cultures - consider a CT chest if hemoptysis persists 3) HTN, HLD - cont Atorvastatin, Diltiazem, Lisinopril 4) DM - placed on a SS 5) AF - sinus on admission - Pradaxa temporarily held as above - cont Diltiazem 6) LOGAN - BiPAP ordered HS Full code Pradaxa prophylaxis Total time for this admit including review of labs, meds, imaging, records - discussion with pt and ER attending - 40 min History of Present Illness Chief Complaint: SOB - COPD exacerbation Primary Care Provider: Ray Pereira, III, MSW 78 y/o F Hx COPD - 4L 02, AF, HTN, HLD, DM II, LOGAN. Presents with progressive SOB, a cough and hemoptysis x 3-4 days. She presented to the ER with moderate respiratory distress. She responded to a breathing treatment and steroids. Initial labs demonstrate hyperglycemia and are otherwise unremarkable. A CXR appears unchanged from a previous. The pt denies CP or fevers. PMH: 1) Advanced COPD - frequent hospital admission fro exacerbation 2) HTN 3) HLD 4) DM II 5) Depression/amxiety 6) Paroxysmal atrial fibrillation 7) LOGAN - BiPAP 8) Obesity Surgical: 1) Cholecystectomy 2) Tonsillectomy 3) Hysterectomy Social: Quit smoking 2009 Does not drink alcohol Family: Father prostate CA Mother lymphoma Social: Family: Allergies Allergy/AdvReac Type Severity Reaction Status Date / Time mushroom Allergy Unknown Unknown Verified 05/15/18 02:02 theophylline Allergy Unknown Unknown Verified 05/15/18 02:02 codeine AdvReac Severe HYPERVENTIL Verified 05/15/18 02:02 ATES morphine AdvReac Severe Causes Afib Verified 05/15/18 02:02 Home Medications Home Medications Medication Instructions Recorded Confirmed Type amiodarone [Pacerone] 200 mg PO DAILY 04/09/18 05/15/18 History atorvastatin [Lipitor] 80 mg PO DAILY 04/09/18 05/15/18 History budesonide [Pulmicort Flexhaler] 2 inh INHALATION BID 04/09/18 05/15/18 History buspirone 15 mg PO TID 04/09/18 05/15/18 History dabigatran etexilate [Pradaxa] 150 mg PO BID 04/09/18 05/15/18 History diclofenac sodium [Voltaren] 4 g TOPICAL QID PRN MDD 16 gm 04/09/18 05/15/18 History daily to any one joint diltiazem HCl [Cardizem CD] 180 mg PO BID 04/09/18 05/15/18 History ferrous sulfate 325 mg PO BID 04/09/18 05/15/18 History furosemide [Lasix] 40 mg PO DAILY 04/09/18 05/15/18 History insulin glargine [Lantus Solostar 30 units SUBCUT QAM 04/09/18 05/15/18 History U-100 Insulin] insulin lispro [Humalog KwikPen 0 unit SUBCUT BID 04/09/18 05/15/18 History Insulin] ipratropium bromide 1 unit INHALATION Q4 PRN 04/09/18 05/15/18 History ketoconazole 1 applic TOPICAL BID 04/09/18 05/15/18 History lisinopril [Zestril] 5 mg PO DAILY 04/09/18 05/15/18 History mirtazapine 30 mg PO HS 04/09/18 05/15/18 History pantoprazole 40 mg PO DAILY 04/09/18 05/15/18 History pramipexole 1 mg PO HS 04/09/18 05/15/18 History trazodone 200 mg PO HS 04/09/18 05/15/18 History venlafaxine [Effexor XR] 75 mg PO DAILY 04/09/18 05/15/18 History venlafaxine [Effexor XR] 150 mg PO DAILY 04/09/18 05/15/18 History vitamin B complex 1 tab PO DAILY 04/09/18 05/15/18 History insulin glargine [Lantus Solostar 33 unit SUBCUT HS 05/15/18 05/15/18 History U-100 Insulin] ipratropium-albuterol 3 ml NEB Q4 PRN 05/15/18 05/15/18 History lorazepam 0.5 mg PO HS PRN 05/15/18 05/15/18 History Past Med/Surg History Medical History Hypotension (Acute) COPD exacerbation (Acute 06/12/13) Anxiety (Acute) CVA (cerebral infarction) (Acute 04/24/14) Hypoxia (Acute) Family History Other Family history non-contributory Social History Current Living Situation: Family Feels Safe at Home: Yes Smoking Status: Former smoker Hx Alcohol Use: No Hx Substance Use: No Beliefs That Will Affect Care: None Preferred Language: Maltese Visual Impairment: No Limitations Review of Systems General: Denies fevers, night sweats, weight loss, weight gain ENT: Denies throat pain, nasal congestion - has a sore on R post roof of mouth Eyes: Denies acute visual impairment, eye pain Cardiovascular: Denies CP, palpitations, PND, orthopnea Respiratory: SOB, cough, blood-streaked sputum GI: Denies nausea, vomiting, diarrhea, constipation, GI bleeding : Denies dysuria, hesitancy, frequency, hematuria Neuro: Denies headache, lightheadedness, syncope, unilateral weakness, acute loss of balance, memory loss Endocrine: Denies polydypsia, polyuria Heme: Denies unexplained bruising Skin: Denies acute rash or ulcers Physical Exam 2 Vital Signs (Past 24 Hours): Last Vital Signs Temp 37.5 C 05/14/18 23:02 Pulse 79 05/15/18 03:40 Resp 24 05/15/18 03:40 BP 125/52 L 05/15/18 03:31 Pulse Ox 96 05/15/18 03:40 Physical Exam: General: Overweight, elderly F - no distress - breathing appears labored ENT: No erythema or exudates, no thrush - small sore on roof of mouth - R, post Eyes: KAMRAN, EOMI Head and neck: Normocephalic, atruamatic, neck is supple. Chest/heart: Nontender, S1,2, RRR, no murmurs, no gallops Lungs: Poor air movement and wheezing in all allen Abdomen: Nontender, nondistended, BS+ Neuro: AAO x 3, speech is clear, no unilateral weakness or loss of sensation, coordination intact Musculoskeletal: No joint inflammation, muscle tenderness, FROM Skin: No acute rashes or ulcers Extremities: No clubbing, cyanosis, edema
[2018-05-15] MEDS ORDERED: MAGNESIUM HYDROXIDE SUSP 30 ML UDC PO PRN (05:49)
[2018-05-15] MEDS ORDERED: NITROGLYCERIN SL 0.4 MG/TAB TAB SL PRN (05:49)
[2018-05-15] MEDS ORDERED: ALUMINUM/MAGNESIUM SUSP 30 ML UDC PO PRN (05:49)
[2018-05-15] MEDS ORDERED: LANTUS PER UNIT CHARGE SQ STA (05:49)
[2018-05-15] MEDS ORDERED: LORazepam 0.5 MG TAB PO PRN (05:49)
[2018-05-15] MEDS ORDERED: DICLOFENAC SOD 1% GEL 100 GM TUBE EXT PRN (05:49)
[2018-05-15] MEDS ORDERED: ONDANSETRON INJ 2 MG/ML 2 ML VIAL IV PRN (05:49)
[2018-05-15] MEDS: ALBUT/IPRATROP 3MG/0.5MG NEB 3 ML VIAL NEB SCH ×4 (07:05→19:19)
--- NOTE | 2018-05-15 08:49 | XRay Report ---
XR chest 1V portable CLINICAL HISTORY: Dyspnea COMPARISON STUDY: Chest radiograph April 15, 2008 13. FINDINGS: Lung volumes are normal. There is no pneumothorax or pleural effusion. There is no consolid ation or evidence for pulmonary edema. There is mitral annular calcification. Cardiomediastinal silho uette is stable. Appearance of the chest is unchanged. IMPRESSION: No acute cardiopulmonary findings. Electronically signed by: Marco Mccall M.D. 05/15/2018 8:48 AM
[2018-05-15] MEDS ORDERED: DABIGATRAN ETEXILATE 75 MG CAP PO STA (10:11)
--- NOTE | 2018-05-15 10:15 | Communication Note ---
Date of Service: May 15, 2018 Patient admitted earlier today. Patient still is short of breath, but does feel better than wehn she first came in. She states that she has not brought up any sputum. She states over the course of the past few days she did have blood in 2 napkins in combination with sputum, but is not aware of where it came from. Clinically it appears she has COPD exacerbation. Will continue antibioitcs and steroids. Will resume pradaxa given her high CHADSvasc score. Will closely monitor for reoccurence of hemoptysis.
[2018-05-15] MEDS: INSULIN ASPART 100 UNITS/ML 3 ML PEN SC SCH ×5 (10:31→21:24)
[2018-05-15] MEDS: BusPIRone 15 MG TAB PO SCH ×3 (10:31→21:18)
[2018-05-15] MEDS: dilTIAZem HCL 180 MG CAPCR PO SCH ×2 (10:32→21:17)
[2018-05-15] MEDS: AMIODARONE 200 MG TAB PO SCH (10:32)
[2018-05-15] MEDS: VENLAFAXINE HCL XR 75 MG CAPXR PO SCH (10:33)
[2018-05-15] MEDS: VENLAFAXINE HCL XR 150 MG CAPXR PO SCH (10:33)
[2018-05-15] MEDS: FUROSEMIDE 40 MG TAB PO SCH (10:34)
[2018-05-15] MEDS: FERROUS SULFATE 325 MG TAB PO SCH ×2 (10:34→21:18)
[2018-05-15] MEDS: ATORVASTATIN 40 MG TAB PO SCH (10:35)
[2018-05-15] MEDS: PANTOprazole 40 MG TAB PO SCH (10:36)
[2018-05-15] MEDS: methylPREDNISolone 40 MG in SYRINGE 0 ML IV SCH ×3 (10:36→21:34)
[2018-05-15] MEDS: LISINOPRIL 5 MG TAB PO SCH (10:36)
[2018-05-15] MEDS: DOXYCYCLINE HYCLATE 100 MG in DEXTROSE 5% 100 ML IV SCH ×2 (10:37→21:31)
[2018-05-15] MEDS: BUDESONIDE 90 MCG INH INH SCH ×2 (10:37→21:12)
[2018-05-15] MEDS: KETOCONAZOLE 2% CR 15 GM TUBE EXT SCH ×2 (10:39→21:19)
[2018-05-15] MEDS ORDERED: INSULIN ASPART 100 UNITS/ML 3 ML PEN SC ONE (11:46)
[2018-05-15] MEDS ORDERED: GLUCOSE 10 TABS/TUBE PO PRN (11:57)
[2018-05-15] MEDS ORDERED: GLUCAGON FOR INJ 1 MG VIAL IM PRN (11:57)
[2018-05-15] MEDS ORDERED: PHARMACY GLYCEMIC MGMT CONSULT PRN (11:57)
[2018-05-15] MEDS ORDERED: CARBOHYDRATES FOR HYPOGLYCEMIA PO PRN (11:57)
[2018-05-15] MEDS ORDERED: GLUCOSE 40% GEL 15 GM TUBE PO PRN (11:57)
[2018-05-15] MEDS ORDERED: INSULIN GLARGINE SOLOSTAR 100 UNITS/ML 3 ML PEN SC ONE (12:15)
--- NOTE | 2018-05-15 17:52 | Emergency Department Note ---
Entered by Eliecer Jones acting as a scribe for History of Present Illness General Chief complaint: Shortness of Breath/Dyspnea Stated complaint: TROUBLE BREATHING, BLEEDING IN MOUTH Time Seen by Provider: 05/14/18 23:26 History of Present Illness Provider complaint: Shortness of breath Onset (ago): minute(s) (Tonight, just prior to arrival) Location: chest Radiation: non-radiation Pain Consistency: + constant Relieved By: + none Associated symptoms: + cough; no chest pain, no fever/chills and no nausea/ vomiting The patient is a 78 year old female who presents to the Emergency Room with complaints of constant shortness of breath that started today around 1830. She also reports that there was blood in her mouth after a coughing episode but she does not know where the blood is from. She is currently on Pradaxa for her history of Afib. Prior to arrival she tried 3 breathing treatments and saw her PCP who gave her prednisone. After these medications her symptoms still persisted. She states that earlier today she felt fine but she was hospitalized within the past month for pneumonia. She also has lost 5 pounds in the past 3 days because of a water pills she is on. The patient denies any abdominal pain, chest pain, nausea, vomiting or fevers. She does have a history of COPD and is on 4L at baseline. Home Medications Home Medications Medication Instructions Recorded Confirmed Type amiodarone [Pacerone] 200 mg PO DAILY 04/09/18 05/15/18 History atorvastatin [Lipitor] 80 mg PO DAILY 04/09/18 05/15/18 History budesonide [Pulmicort Flexhaler] 2 inh INHALATION BID 04/09/18 05/15/18 History buspirone 15 mg PO TID 04/09/18 05/15/18 History dabigatran etexilate [Pradaxa] 150 mg PO BID 04/09/18 05/15/18 History diclofenac sodium [Voltaren] 4 g TOPICAL QID PRN MDD 16 gm 04/09/18 05/15/18 History daily to any one joint diltiazem HCl [Cardizem CD] 180 mg PO BID 04/09/18 05/15/18 History ferrous sulfate 325 mg PO BID 04/09/18 05/15/18 History furosemide [Lasix] 40 mg PO DAILY 04/09/18 05/15/18 History insulin glargine [Lantus Solostar 30 units SUBCUT QAM 04/09/18 05/15/18 History U-100 Insulin] insulin lispro [Humalog KwikPen 0 unit SUBCUT BID 04/09/18 05/15/18 History Insulin] ipratropium bromide 1 unit INHALATION Q4 PRN 04/09/18 05/15/18 History ketoconazole 1 applic TOPICAL BID 04/09/18 05/15/18 History lisinopril [Zestril] 5 mg PO DAILY 04/09/18 05/15/18 History mirtazapine 30 mg PO HS 04/09/18 05/15/18 History pantoprazole 40 mg PO DAILY 04/09/18 05/15/18 History pramipexole 1 mg PO HS 04/09/18 05/15/18 History trazodone 200 mg PO HS 04/09/18 05/15/18 History venlafaxine [Effexor XR] 75 mg PO DAILY 04/09/18 05/15/18 History venlafaxine [Effexor XR] 150 mg PO DAILY 04/09/18 05/15/18 History vitamin B complex 1 tab PO DAILY 04/09/18 05/15/18 History insulin glargine [Lantus Solostar 33 unit SUBCUT HS 05/15/18 05/15/18 History U-100 Insulin] ipratropium-albuterol 3 ml NEB Q4 PRN 05/15/18 05/15/18 History lorazepam 0.5 mg PO HS PRN 05/15/18 05/15/18 History Allergies Allergy/AdvReac Type Severity Reaction Status Date / Time mushroom Allergy Unknown Unknown Verified 05/15/18 02:02 theophylline Allergy Unknown Unknown Verified 05/15/18 02:02 codeine AdvReac Severe HYPERVENTIL Verified 05/15/18 02:02 ATES morphine AdvReac Severe Causes Afib Verified 05/15/18 02:02 Past Med/Surg History Medical History Hypotension (Acute) COPD exacerbation (Acute 06/12/13) Anxiety (Acute) CVA (cerebral infarction) (Acute 04/24/14) Hypoxia (Acute) Family History Other Family history non-contributory Social History Current Living Situation: Family Other Information That Helps Us Care for You: No Feels Safe at Home: Yes Safety Concerns: Feels Safe At This Time Smoking Status: Former smoker Hx Alcohol Use: No Hx Substance Use: No Beliefs That Will Affect Care: None Preferred Language: Kazakh Communication Ability: Effective [place] Required: No Review of Systems See HPI for pertinent positives & negatives. and A total of 10 systems reviewed and were otherwise negative Physical Exam Vital Signs Vital Signs - 24 hr 05/14/18 23:02 05/14/18 23:14 05/14/18 23:17 Temperature 37.5 C Temperature Source Oral Sepsis Recent Fever Within 48 Hours No Sepsis New/Unexplained Change in Mental Status No Sepsis Action Taken by Nursing No Action Required Pulse Rate 93 H 94 H Pulse Rate [Brachial] Respiratory Rate 35 H 23 Respiratory Effort / Characteristics Blood Pressure 134/54 L 165/70 H Blood Pressure [Left Arm] Blood Pressure Mean 80 101 Blood Pressure Mean [Left Arm] Blood Pressure Position [Left Arm] Pulse Oximetry 77 L 63 L 99 Oxygen Delivery Method Nasal Cannula Nasal Cannula Non-rebreather Oxygen Flow Rate 4 05/14/18 23:20 05/14/18 23:30 05/14/18 23:31 Temperature Temperature Source Sepsis Recent Fever Within 48 Hours Sepsis New/Unexplained Change in Mental Status Sepsis Action Taken by Nursing Pulse Rate 91 H 91 H 89 Pulse Rate [Brachial] Respiratory Rate 19 26 H 31 H Respiratory Effort / Characteristics Blood Pressure 133/74 Blood Pressure [Left Arm] Blood Pressure Mean 93 Blood Pressure Mean [Left Arm] Blood Pressure Position [Left Arm] Pulse Oximetry 99 99 99 Oxygen Delivery Method Nasal Cannula Nebulizer Oxygen Flow Rate 05/14/18 23:39 05/14/18 23:40 05/14/18 23:46 Temperature Temperature Source Sepsis Recent Fever Within 48 Hours Sepsis New/Unexplained Change in Mental Status Sepsis Action Taken by Nursing Pulse Rate 87 89 Pulse Rate [Brachial] Respiratory Rate 21 25 H Respiratory Effort / Characteristics Blood Pressure 139/52 L Blood Pressure [Left Arm] Blood Pressure Mean 81 Blood Pressure Mean [Left Arm] Blood Pressure Position [Left Arm] Pulse Oximetry 98 96 Oxygen Delivery Method Nasal Cannula Nebulizer Oxygen Flow Rate 4 05/15/18 00:00 05/15/18 00:01 05/15/18 00:16 Temperature Temperature Source Sepsis Recent Fever Within 48 Hours Sepsis New/Unexplained Change in Mental Status Sepsis Action Taken by Nursing Pulse Rate 86 85 81 Pulse Rate [Brachial] Respiratory Rate 24 26 H 24 Respiratory Effort / Characteristics Blood Pressure 135/67 135/51 L Blood Pressure [Left Arm] Blood Pressure Mean 89 79 Blood Pressure Mean [Left Arm] Blood Pressure Position [Left Arm] Pulse Oximetry 95 97 98 Oxygen Delivery Method Nasal Cannula Oxygen Flow Rate 05/15/18 00:20 05/15/18 00:31 05/15/18 00:40 Temperature Temperature Source Sepsis Recent Fever Within 48 Hours Sepsis New/Unexplained Change in Mental Status Sepsis Action Taken by Nursing Pulse Rate 84 84 82 Pulse Rate [Brachial] Respiratory Rate 27 H 25 H 19 Respiratory Effort / Characteristics Blood Pressure 133/65 Blood Pressure [Left Arm] Blood Pressure Mean 87 Blood Pressure Mean [Left Arm] Blood Pressure Position [Left Arm] Pulse Oximetry 98 93 95 Oxygen Delivery Method Nasal Cannula Oxygen Flow Rate 05/15/18 00:46 05/15/18 01:00 05/15/18 01:01 Temperature Temperature Source Sepsis Recent Fever Within 48 Hours Sepsis New/Unexplained Change in Mental Status Sepsis Action Taken by Nursing Pulse Rate 79 87 80 Pulse Rate [Brachial] Respiratory Rate 26 H 24 26 H Respiratory Effort / Characteristics Blood Pressure 129/68 131/62 Blood Pressure [Left Arm] Blood Pressure Mean 88 85 Blood Pressure Mean [Left Arm] Blood Pressure Position [Left Arm] Pulse Oximetry 96 97 95 Oxygen Delivery Method Oxygen Flow Rate 05/15/18 01:16 05/15/18 01:20 05/15/18 01:31 Temperature Temperature Source Sepsis Recent Fever Within 48 Hours Sepsis New/Unexplained Change in Mental Status Sepsis Action Taken by Nursing Pulse Rate 83 82 80 Pulse Rate [Brachial] Respiratory Rate 18 26 H 22 Respiratory Effort / Characteristics Blood Pressure 114/55 L 128/61 Blood Pressure [Left Arm] Blood Pressure Mean 74 83 Blood Pressure Mean [Left Arm] Blood Pressure Position [Left Arm] Pulse Oximetry 97 94 95 Oxygen Delivery Method Oxygen Flow Rate 05/15/18 01:40 05/15/18 01:46 05/15/18 02:00 Temperature Temperature Source Sepsis Recent Fever Within 48 Hours Sepsis New/Unexplained Change in Mental Status Sepsis Action Taken by Nursing Pulse Rate 81 78 76 Pulse Rate [Brachial] Respiratory Rate 23 25 H 24 Respiratory Effort / Characteristics Blood Pressure 121/57 L Blood Pressure [Left Arm] Blood Pressure Mean 78 Blood Pressure Mean [Left Arm] Blood Pressure Position [Left Arm] Pulse Oximetry 93 95 97 Oxygen Delivery Method Oxygen Flow Rate 05/15/18 02:01 05/15/18 02:16 05/15/18 02:20 Temperature Temperature Source Sepsis Recent Fever Within 48 Hours Sepsis New/Unexplained Change in Mental Status Sepsis Action Taken by Nursing Pulse Rate 75 80 81 Pulse Rate [Brachial] Respiratory Rate 26 H 27 H 29 H Respiratory Effort / Characteristics Blood Pressure 130/53 L 119/59 L Blood Pressure [Left Arm] Blood Pressure Mean 78 79 Blood Pressure Mean [Left Arm] Blood Pressure Position [Left Arm] Pulse Oximetry 97 94 93 Oxygen Delivery Method Oxygen Flow Rate 05/15/18 02:31 05/15/18 02:40 05/15/18 02:45 Temperature Temperature Source Sepsis Recent Fever Within 48 Hours Sepsis New/Unexplained Change in Mental Status Sepsis Action Taken by Nursing Pulse Rate 79 80 86 Pulse Rate [Brachial] Respiratory Rate 28 H 27 H 24 Respiratory Effort / Characteristics Blood Pressure 140/65 113/71 Blood Pressure [Left Arm] Blood Pressure Mean 90 85 Blood Pressure Mean [Left Arm] Blood Pressure Position [Left Arm] Pulse Oximetry 95 92 Oxygen Delivery Method Oxygen Flow Rate 05/15/18 03:00 05/15/18 03:01 05/15/18 03:20 Temperature Temperature Source Sepsis Recent Fever Within 48 Hours Sepsis New/Unexplained Change in Mental Status Sepsis Action Taken by Nursing Pulse Rate 79 79 80 Pulse Rate [Brachial] Respiratory Rate 17 29 H 19 Respiratory Effort / Characteristics Blood Pressure 128/58 L Blood Pressure [Left Arm] Blood Pressure Mean 81 Blood Pressure Mean [Left Arm] Blood Pressure Position [Left Arm] Pulse Oximetry 94 95 95 Oxygen Delivery Method Oxygen Flow Rate 05/15/18 03:31 05/15/18 03:40 05/15/18 04:00 Temperature Temperature Source Sepsis Recent Fever Within 48 Hours Sepsis New/Unexplained Change in Mental Status Sepsis Action Taken by Nursing Pulse Rate 76 79 90 Pulse Rate [Brachial] Respiratory Rate 25 H 24 29 H Respiratory Effort / Characteristics Blood Pressure 125/52 L Blood Pressure [Left Arm] Blood Pressure Mean 76 Blood Pressure Mean [Left Arm] Blood Pressure Position [Left Arm] Pulse Oximetry 95 96 91 Oxygen Delivery Method Oxygen Flow Rate 05/15/18 04:01 05/15/18 04:20 05/15/18 04:32 Temperature Temperature Source Sepsis Recent Fever Within 48 Hours Sepsis New/Unexplained Change in Mental Status Sepsis Action Taken by Nursing Pulse Rate 86 79 82 Pulse Rate [Brachial] Respiratory Rate 27 H 24 22 Respiratory Effort / Characteristics Blood Pressure 157/56 H 130/47 L Blood Pressure [Left Arm] Blood Pressure Mean 89 74 Blood Pressure Mean [Left Arm] Blood Pressure Position [Left Arm] Pulse Oximetry 91 96 93 Oxygen Delivery Method Oxygen Flow Rate 05/15/18 04:40 05/15/18 05:00 05/15/18 05:37 Temperature 36.8 C Temperature Source Oral Sepsis Recent Fever Within 48 Hours Sepsis New/Unexplained Change in Mental Status Sepsis Action Taken by Nursing Pulse Rate 78 83 Pulse Rate [Brachial] 89 Respiratory Rate 24 22 28 H Respiratory Effort / Characteristics Grunting Short of Breath Blood Pressure Blood Pressure [Left Arm] 172/71 H Blood Pressure Mean Blood Pressure Mean [Left Arm] 104 Blood Pressure Position [Left Arm] Pulse Oximetry 94 92 94 Oxygen Delivery Method Nasal Cannula Oxygen Flow Rate 6 05/15/18 06:56 05/15/18 07:45 05/15/18 11:07 Temperature 36.7 C Temperature Source Oral Sepsis Recent Fever Within 48 Hours Sepsis New/Unexplained Change in Mental Status Sepsis Action Taken by Nursing Pulse Rate Pulse Rate [Brachial] 74 80 78 Respiratory Rate 20 22 18 Respiratory Effort / Characteristics Non-Labored Spontaneous Non-Labored Spontaneous Blood Pressure Blood Pressure [Left Arm] 151/73 H Blood Pressure Mean Blood Pressure Mean [Left Arm] 99 Blood Pressure Position [Left Arm] Pulse Oximetry 96 95 95 Oxygen Delivery Method Nasal Cannula Nasal Cannula Oxygen Flow Rate 6 4 4 05/15/18 11:51 05/15/18 11:58 05/15/18 14:37 Temperature 36.6 C Temperature Source Oral Sepsis Recent Fever Within 48 Hours Sepsis New/Unexplained Change in Mental Status Sepsis Action Taken by Nursing Pulse Rate 78 Pulse Rate [Brachial] 85 77 Respiratory Rate 18 17 Respiratory Effort / Characteristics SOB on Exertion Non-Labored Spontaneous Blood Pressure Blood Pressure [Left Arm] 149/72 H Blood Pressure Mean Blood Pressure Mean [Left Arm] 97 Blood Pressure Position [Left Arm] Pulse Oximetry 98 95 Oxygen Delivery Method Nasal Cannula Nasal Cannula Oxygen Flow Rate 4 4 05/15/18 15:10 Temperature 36.8 C Temperature Source Oral Sepsis Recent Fever Within 48 Hours Sepsis New/Unexplained Change in Mental Status Sepsis Action Taken by Nursing Pulse Rate Pulse Rate [Brachial] 90 Respiratory Rate 21 Respiratory Effort / Characteristics Blood Pressure Blood Pressure [Left Arm] 135/55 L Blood Pressure Mean Blood Pressure Mean [Left Arm] 81 Blood Pressure Position [Left Arm] Lying Pulse Oximetry 92 Oxygen Delivery Method Nasal Cannula Oxygen Flow Rate 4 HEENT: Head - normocephalic and atraumatic Pupils are equal, round, and reactive to light. Extraocular eye muscles are intact, and sclera are anicteric. Nose - moist nasal mucosa without discharge. Mouth - moist buccal mucosa. Oropharynx is nonerythematous and there is no tonsillar exudate or edema noted. Neck: Supple; no JVD, nuchal rigidity, cervical lymphadenopathy. Heart: Tachycardic rate and regular rhythm. There is a normal S1 and S2 with no murmurs, clicks, or gallops appreciated. Heart sounds distant secondary to body habitus. Lungs: No rales. Minimal air exchange in lungs with diffuse wheezing and rhonchi. Abdomen: Soft, completely nontender, nondistended, with good bowel sounds. There are no palpable pulsatile masses or hepatosplenomegaly. There is no guarding, rigidity, or rebound noted. Extremities: No evidence of cyanosis or clubbing. There are easily palpable peripheral pulses. Trace pedal edema bilaterally. Skin: warm and dry with good turgor and no rashes. Course 2327: Past medical records reviewed. The patient was evaluated in room B06, and a complete history and physical examination were performed. The patient was observed on the cardiac surgeon and pulse oximeter. She had a twelve-lead EKG as described above. She had a chest x-ray as described above. Initial presentation-oxygen saturation was 64%. On supplemental oxygen, O2 saturations were in the low 90s. 2336: Methylprednisolone 125mg IV 0205: I went over the lab and imaging results with the patient and her family. I also looked in her mouth for a source of the blood she had present prior to arrival. She did have a tiny area of irritation over right upper alveolar ridge. I also reexamined her lungs and upond reevaluation they were clear. Without the supplemental oxygen, the patient's O2 saturations quickly dropped. 0215: I spoke to Dr. Fernandez - [facility] Hospitalist about the patient's case and he is accepting her for further evaluation. Consultations Consultation #1: I spoke to Dr. Fernandez - [facility] Hospitalist about the patient's case and he is accepting her for further evaluation. Time: 02:15 Administered Medications Albuterol (Duoneb) 3 ml NEB QIDR GREGORIO Stop: 06/14/18 07:59 Last Admin: 05/15/18 14:37 Dose: 3 ml Admin: 05/15/18 11:07 Dose: 3 ml Admin: 05/15/18 07:05 Dose: 3 ml Amiodarone HCl (Cordarone) 200 mg PO DAILY GREGORIO Stop: 06/14/18 08:59 Last Admin: 05/15/18 10:32 Dose: 200 mg Atorvastatin Calcium (Lipitor) 80 mg PO DAILY GREGORIO Stop: 06/14/18 08:59 Last Admin: 05/15/18 10:35 Dose: 80 mg Budesonide (Pulmicort Flexhaler) 4 puffs INH BID GREGORIO Stop: 06/14/18 08:59 Last Admin: 05/15/18 10:37 Dose: 4 puffs Buspirone HCl (Buspar) 15 mg PO TID GREGORIO Stop: 06/14/18 08:59 Last Admin: 05/15/18 13:55 Dose: 15 mg Admin: 05/15/18 10:31 Dose: 15 mg Diltiazem HCl (Cardizem Cd) 180 mg PO BID GREGORIO Stop: 06/14/18 08:59 Last Admin: 05/15/18 10:32 Dose: 180 mg Ferrous Sulfate (Feosol) 325 mg PO BID GREGORIO Stop: 06/14/18 08:59 Last Admin: 05/15/18 10:34 Dose: 325 mg Furosemide (Lasix) 40 mg PO DAILY GREGORIO Stop: 06/14/18 08:59 Last Admin: 05/15/18 10:34 Dose: 40 mg Doxycycline Hyclate 100 mg/ (Dextrose) 110 mls @ 50 mls/hr IV Q12H GREGORIO Stop: 05/22/18 08:59 Last Infusion: 05/15/18 13:44 Dose: 0 mls/hr Admin: 05/15/18 10:37 Dose: 50 mls/hr Methylprednisolone 40 mg/ (Syringe) 0.64 mls @ 1.5 mls/min IV Q6H GREGORIO Stop: 06/14/18 09:59 Last Admin: 05/15/18 16:16 Dose: 1.5 mls/min Admin: 05/15/18 10:36 Dose: 1.5 mls/min Insulin Aspart (Novolog Flexpen) 0 units SC [facility] ON LICENSE OF [facility]; Protocol Stop: 06/14/18 07:29 Last Admin: 05/15/18 12:22 Dose: 27 units Admin: 05/15/18 10:31 Dose: 2 units Ketoconazole (Nizoral 2%) 1 appln EXT BID GREGORIO Stop: 05/25/18 08:59 Last Admin: 05/15/18 10:39 Dose: 1 appln Lisinopril (Zestril) 5 mg PO DAILY ON LICENSE OF [facility] Stop: 06/14/18 08:59 Last Admin: 05/15/18 10:36 Dose: 5 mg Pantoprazole Sodium (Protonix) 40 mg PO DAILY ON LICENSE OF [facility] Stop: 06/14/18 08:59 Last Admin: 05/15/18 10:36 Dose: 40 mg Venlafaxine HCl (Effexor Extended Release) 150 mg PO DAILY GREGORIO Stop: 06/14/18 08:59 Last Admin: 05/15/18 10:33 Dose: 150 mg Venlafaxine HCl (Effexor Extended Release) 75 mg PO DAILY ON LICENSE OF [facility] Stop: 06/14/18 08:59 Last Admin: 05/15/18 10:33 Dose: 75 mg Discontinued Medications Albuterol (Duoneb) Confirm Administered Dose 3 ml .ROUTE .STK-MED ONE Stop: 05/14/18 23:30 Last Admin: 05/14/18 23:33 Dose: 3 ml Dabigatran (Pradaxa) 150 mg PO ONE STA Stop: 05/15/18 10:12 Last Admin: 05/15/18 12:23 Dose: 150 mg Insulin Glargine (Lantus Per Unit) 10 units SQ NOW STA Stop: 05/15/18 05:50 Last Admin: 05/15/18 07:53 Dose: 10 units Insulin Glargine (Lantus Solostar Pen) 25 units SC NOW ONE Stop: 05/15/18 12:16 Last Admin: 05/15/18 13:57 Dose: 25 units Methylprednisolone (Solumedrol) 125 mg IV NOW STA Stop: 05/14/18 23:37 Last Admin: 05/14/18 23:43 Dose: 125 mg Medical Decision Making Differential Diagnosis The patient is a 78 year old female who presents to the Emergency Room with complaints of constant shortness of breath that started today around 1830. Differential diagnosis includes COPD exacerbation, pneumonia, bronchitis, CHF, hemoptysis, and pulmonary embolism. Medical Records Attestation: I reviewed the patient's medical records. Home Medications Current Medication List: was personally reviewed by me Laboratory Data Attestation: I reviewed the patient's lab results. Result diagrams: 05/14/18 23:27 05/14/18 23:27 Lab Results 05/14/18 05/14/18 05/14/18 Range/Units 23:27 23:27 23:32 WBC 5.31 (4.8-10.8) K/uL RBC 4.33 (4.2-5.4) M/uL Hgb 12.3 (12.0-16.0) g/dL Hct 40.7 (37-47) % MCV 94.0 (80-100) fL MCH 28.4 (25-34) pg MCHC 30.2 L (32-36) g/dL RDW Std Deviation 50.3 H (36.4-46.3) fL RDW Coeff of Veronique 14.7 H (11.5-14.5) % Plt Count 283 (130-400) K/uL MPV 10.7 H (7.4-10.4) fL Immature Gran % (Auto) 0.9 % Neut % (Auto) 84.2 % Lymph % (Auto) 10.0 % [place] % (Auto) 4.3 % Eos % (Auto) 0.0 % Baso % (Auto) 0.6 % Immature Gran # (Auto) 0.05 H (0.00-0.02) K/uL Neut # (Auto) 4.47 (1.4-6.5) K/uL Lymph # (Auto) 0.53 L (1.2-3.4) K/uL [place] # (Auto) 0.23 (0.11-0.59) K/uL Eos # (Auto) 0.00 (0-0.5) K/uL Baso # (Auto) 0.03 (0-0.2) K/uL PT (9.0-12.0) Seconds INR (0.9-1.1) APTT (21.0-31.0) Seconds PTT Ratio POC D-Dimer > 450 H* (0-450) ng/mlFEU Sodium 137 (136-145) mmol/L Potassium 4.0 (3.5-5.1) mmol/L Chloride 90 L (98-107) mmol/L Carbon Dioxide 40 H (21-32) mmol/L Anion Gap 7.0 (3-11) BUN 18 (7-18) mg/dl Creatinine 0.95 (0.6-1.2) mg/dl Est Cr Clr Drug Dosing Not Reportable Est GFR ( Amer) 67.4 Est GFR (Non-Af Amer) 58.2 BUN/Creatinine Ratio 18.7 (10-20) Glucose 295 H (70-99) mg/dl POC Glucose (70-99) Calcium 9.2 (8.5-10.1) mg/dl Total Bilirubin 0.5 (0.2-1) mg/dl AST 33 (15-37) U/L ALT 33 (12-78) U/L Alkaline Phosphatase 156 H (45-117) U/L POC Troponin I 0.03 (0-0.045) ng/ml Troponin I < 0.015 (0-0.045) ng/ml NT-Pro-B Natriuret Pep 169 (0-1800) pg/ml Total Protein 8.0 (6.4-8.2) gm/dl Albumin 2.7 L (3.4-5.0) gm/dl Globulin 5.3 H (2.5-4.0) gm/dl Albumin/Globulin Ratio 0.5 L (0.9-2) Urine Color Urine Appearance (Clear) Urine pH (4.5-7.5) Ur Specific [place] (1.000-1.030) Urine Protein (Negative) Urine Glucose (UA) (Negative) Urine Ketones (Negative) Urine Blood (Negative) Urine Nitrite (Negative) Urine Bilirubin (Negative) Urine Urobilinogen (Negative) Ur Leukocyte Esterase (Negative) Urine WBC (Auto) (0-5) /hpf Urine RBC (Auto) (0-4) /hpf U Hyaline Cast (Auto) (0-5) /lpf U Epithel Cells (Auto) (0-5) /lpf Urine Bacteria (Auto) (Negative) 05/15/18 05/15/18 05/15/18 Range/Units 00:35 03:55 04:27 WBC (4.8-10.8) K/uL RBC (4.2-5.4) M/uL Hgb (12.0-16.0) g/dL Hct (37-47) % MCV (80-100) fL MCH (25-34) pg MCHC (32-36) g/dL RDW Std Deviation (36.4-46.3) fL RDW Coeff of Veronique (11.5-14.5) % Plt Count (130-400) K/uL MPV (7.4-10.4) fL Immature Gran % (Auto) % Neut % (Auto) % Lymph % (Auto) % [place] % (Auto) % Eos % (Auto) % Baso % (Auto) % Immature Gran # (Auto) (0.00-0.02) K/uL Neut # (Auto) (1.4-6.5) K/uL Lymph # (Auto) (1.2-3.4) K/uL [place] # (Auto) (0.11-0.59) K/uL Eos # (Auto) (0-0.5) K/uL Baso # (Auto) (0-0.2) K/uL PT 10.0 (9.0-12.0) Seconds INR 1.0 (0.9-1.1) APTT 28.5 (21.0-31.0) Seconds PTT Ratio 1.1 POC D-Dimer (0-450) ng/mlFEU Sodium (136-145) mmol/L Potassium (3.5-5.1) mmol/L Chloride (98-107) mmol/L Carbon Dioxide (21-32) mmol/L Anion Gap (3-11) BUN (7-18) mg/dl Creatinine (0.6-1.2) mg/dl Est Cr Clr Drug Dosing Est GFR ( Amer) Est GFR (Non-Af Amer) BUN/Creatinine Ratio (10-20) Glucose (70-99) mg/dl POC Glucose 254 H (70-99) Calcium (8.5-10.1) mg/dl Total Bilirubin (0.2-1) mg/dl AST (15-37) U/L ALT (12-78) U/L Alkaline Phosphatase (45-117) U/L POC Troponin I (0-0.045) ng/ml Troponin I (0-0.045) ng/ml NT-Pro-B Natriuret Pep (0-1800) pg/ml Total Protein (6.4-8.2) gm/dl Albumin (3.4-5.0) gm/dl Globulin (2.5-4.0) gm/dl Albumin/Globulin Ratio (0.9-2) Urine Color Yellow Urine Appearance Clear (Clear) Urine pH 5.5 (4.5-7.5) Ur Specific [place] 1.023 (1.000-1.030) Urine Protein 1+ H (Negative) Urine Glucose (UA) 2+ H (Negative) Urine Ketones Negative (Negative) Urine Blood Negative (Negative) Urine Nitrite Negative (Negative) Urine Bilirubin Negative (Negative) Urine Urobilinogen Negative (Negative) Ur Leukocyte Esterase Negative (Negative) Urine WBC (Auto) 1-5 (0-5) /hpf Urine RBC (Auto) 0-4 (0-4) /hpf U Hyaline Cast (Auto) 1-5 (0-5) /lpf U Epithel Cells (Auto) >30 H (0-5) /lpf Urine Bacteria (Auto) Negative (Negative) 05/15/18 05/15/18 05/15/18 Range/Units 07:09 11:27 11:28 WBC (4.8-10.8) K/uL RBC (4.2-5.4) M/uL Hgb (12.0-16.0) g/dL Hct (37-47) % MCV (80-100) fL MCH (25-34) pg MCHC (32-36) g/dL RDW Std Deviation (36.4-46.3) fL RDW Coeff of Veronique (11.5-14.5) % Plt Count (130-400) K/uL MPV (7.4-10.4) fL Immature Gran % (Auto) % Neut % (Auto) % Lymph % (Auto) % [place] % (Auto) % Eos % (Auto) % Baso % (Auto) % Immature Gran # (Auto) (0.00-0.02) K/uL Neut # (Auto) (1.4-6.5) K/uL Lymph # (Auto) (1.2-3.4) K/uL [place] # (Auto) (0.11-0.59) K/uL Eos # (Auto) (0-0.5) K/uL Baso # (Auto) (0-0.2) K/uL PT (9.0-12.0) Seconds INR (0.9-1.1) APTT (21.0-31.0) Seconds PTT Ratio POC D-Dimer (0-450) ng/mlFEU Sodium (136-145) mmol/L Potassium (3.5-5.1) mmol/L Chloride (98-107) mmol/L Carbon Dioxide (21-32) mmol/L Anion Gap (3-11) BUN (7-18) mg/dl Creatinine (0.6-1.2) mg/dl Est Cr Clr Drug Dosing Est GFR ( Amer) Est GFR (Non-Af Amer) BUN/Creatinine Ratio (10-20) Glucose (70-99) mg/dl POC Glucose 217 H 383 H* 396 H* (70-99) Calcium (8.5-10.1) mg/dl Total Bilirubin (0.2-1) mg/dl AST (15-37) U/L ALT (12-78) U/L Alkaline Phosphatase (45-117) U/L POC Troponin I (0-0.045) ng/ml Troponin I (0-0.045) ng/ml NT-Pro-B Natriuret Pep (0-1800) pg/ml Total Protein (6.4-8.2) gm/dl Albumin (3.4-5.0) gm/dl Globulin (2.5-4.0) gm/dl Albumin/Globulin Ratio (0.9-2) Urine Color Urine Appearance (Clear) Urine pH (4.5-7.5) Ur Specific [place] (1.000-1.030) Urine Protein (Negative) Urine Glucose (UA) (Negative) Urine Ketones (Negative) Urine Blood (Negative) Urine Nitrite (Negative) Urine Bilirubin (Negative) Urine Urobilinogen (Negative) Ur Leukocyte Esterase (Negative) Urine WBC (Auto) (0-5) /hpf Urine RBC (Auto) (0-4) /hpf U Hyaline Cast (Auto) (0-5) /lpf U Epithel Cells (Auto) (0-5) /lpf Urine Bacteria (Auto) (Negative) 05/15/18 05/15/18 Range/Units 13:27 16:18 WBC (4.8-10.8) K/uL RBC (4.2-5.4) M/uL Hgb (12.0-16.0) g/dL Hct (37-47) % MCV (80-100) fL MCH (25-34) pg MCHC (32-36) g/dL RDW Std Deviation (36.4-46.3) fL RDW Coeff of Veronique (11.5-14.5) % Plt Count (130-400) K/uL MPV (7.4-10.4) fL Immature Gran % (Auto) % Neut % (Auto) % Lymph % (Auto) % [place] % (Auto) % Eos % (Auto) % Baso % (Auto) % Immature Gran # (Auto) (0.00-0.02) K/uL Neut # (Auto) (1.4-6.5) K/uL Lymph # (Auto) (1.2-3.4) K/uL [place] # (Auto) (0.11-0.59) K/uL Eos # (Auto) (0-0.5) K/uL Baso # (Auto) (0-0.2) K/uL PT (9.0-12.0) Seconds INR (0.9-1.1) APTT (21.0-31.0) Seconds PTT Ratio POC D-Dimer (0-450) ng/mlFEU Sodium (136-145) mmol/L Potassium (3.5-5.1) mmol/L Chloride (98-107) mmol/L Carbon Dioxide (21-32) mmol/L Anion Gap (3-11) BUN (7-18) mg/dl Creatinine (0.6-1.2) mg/dl Est Cr Clr Drug Dosing Est GFR ( Amer) Est GFR (Non-Af Amer) BUN/Creatinine Ratio (10-20) Glucose (70-99) mg/dl POC Glucose 300 H 196 H (70-99) Calcium (8.5-10.1) mg/dl Total Bilirubin (0.2-1) mg/dl AST (15-37) U/L ALT (12-78) U/L Alkaline Phosphatase (45-117) U/L POC Troponin I (0-0.045) ng/ml Troponin I (0-0.045) ng/ml NT-Pro-B Natriuret Pep (0-1800) pg/ml Total Protein (6.4-8.2) gm/dl Albumin (3.4-5.0) gm/dl Globulin (2.5-4.0) gm/dl Albumin/Globulin Ratio (0.9-2) Urine Color Urine Appearance (Clear) Urine pH (4.5-7.5) Ur Specific [place] (1.000-1.030) Urine Protein (Negative) Urine Glucose (UA) (Negative) Urine Ketones (Negative) Urine Blood (Negative) Urine Nitrite (Negative) Urine Bilirubin (Negative) Urine Urobilinogen (Negative) Ur Leukocyte Esterase (Negative) Urine WBC (Auto) (0-5) /hpf Urine RBC (Auto) (0-4) /hpf U Hyaline Cast (Auto) (0-5) /lpf U Epithel Cells (Auto) (0-5) /lpf Urine Bacteria (Auto) (Negative) Imaging Data Attestation: I personally reviewed and interpreted this imaging study as follows : My Impression: X ray results are stated below per my interpretation: Chest: 1 view: Mild pulmonary vascular congestion which is unchanged from April 15, 2018. ECG Data Attestation: I personally reviewed and interpreted this ECG as follows: Indication: SOB/dyspnea Rate (beats per minute): 89 Rhythm: normal sinus Findings: + 1st degree AV block and + prolonged QT (Mild); no PAC, no PVC and no acute ischemic change Blood Pressure Blood Pressure Findings: Elevated blood pressure Blood Pressure Disposition: further management by hospitalist CRISELDA Melo The patient is a 78 year old female who presents to the Emergency Room with complaints of constant shortness of breath that started today around 1830. The patient has a history of COPD with recent episodes of pneumonia. Her PCP started her on prednisone in the past 24 hours with no improvement in her symptoms. The patient became more concerned when she developed blood in her mouth and was unsure whether it came from the mouth or if it was hemoptysis. The patient does take Pradaxa for A. fib. O2 saturations upon presentation were less than 70%. Supplemental oxygen was given and her O2 saturations at the time of my evaluation was 90%. Chest x-ray shows no acute evidence of a pneumonia. I am still uncertain whether the patient has true hemoptysis or the blood came from an oral source. The patient was given IV Solu-Medrol and had significant improvement after receiving a DuoNeb treatment. Because of her oxygen requirement, the patient will require further evaluation by the hospitalist service. Impression & Plan Hypoxia, Acute exacerbation of chronic obstructive pulmonary disease (COPD), Hyperglycemia due to type 2 diabetes mellitus Critical Care Time I have personally spent greater than 45 minutes of critical care time in the direct management of this patient. The patient was significantly hypoxic with an O2 saturation of 64%. She required supplemental oxygen. This includes bedside care, interpretation of diagnostic studies, and testing, discussion with consultants, patient, and family members, and other required patient management activities. This 45 minutes is in excess of all separately billable procedures. Critical Care Time: Yes (45) Total Critical Care Time: 45 Discharge Plan Visit Data *Final* Discharge Date/Time: 05/15/18 05:09 Chief Complaint: Shortness of Breath/Dyspnea Stated Complaint: TROUBLE BREATHING, BLEEDING IN MOUTH ED Provider: Jennie Laws Discharge Problem: Hypoxia, Acute exacerbation of chronic obstructive pulmonary disease (COPD), Hyperglycemia due to type 2 diabetes mellitus Patient Disposition: Admitted As Inpatient Discharge Instructions Interventions: ED Discharge Assessment Last Done: 05/15/18 05:09 The scribe's documentation has been prepared under my direction and personally reviewed by me in its entirety. I confirm that the note above accurately reflects all work, treatment, procedures, and medical decision making performed by me.
[2018-05-15] MEDS ORDERED: PRAMIPEXOLE DIHYDROCHLORIDE 1 MG TAB PO SCH (21:00)
[2018-05-15] MEDS ORDERED: INSULIN GLARGINE SOLOSTAR 100 UNITS/ML 3 ML PEN SQ SCH (21:00)
[2018-05-15] MEDS: DABIGATRAN ETEXILATE 75 MG CAP PO SCH (21:15)
[2018-05-15] MEDS: TRAZODONE HCL 100 MG TAB PO SCH (21:16)
[2018-05-15] MEDS: PRAMIPEXOLE DIHYDROCHLO 0.5 MG TAB PO SCH (21:16)
[2018-05-15] MEDS: MIRTAZAPINE TAB 15 MG TAB PO SCH (21:17)
[2018-05-15] MEDS: INSULIN GLARGINE SOLOSTAR 100 UNITS/ML 3 ML PEN SC SCH (21:23)
[2018-05-15] MEDS: ACETAMINOPHEN 325 MG TAB PO PRN (23:47)
[2018-05-16] MEDS ORDERED: INSULIN ASPART 100 UNITS/ML 3 ML PEN SC SCH
[2018-05-16] MEDS: methylPREDNISolone 40 MG in SYRINGE 0 ML IV SCH ×4 (03:23→22:39)
[2018-05-16] MEDS: ALBUT/IPRATROP 3MG/0.5MG NEB 3 ML VIAL NEB SCH ×4 (06:55→20:41)
[2018-05-16] MEDS: FERROUS SULFATE 325 MG TAB PO SCH ×2 (08:22→20:58)
[2018-05-16] MEDS: AMIODARONE 200 MG TAB PO SCH (08:23)
[2018-05-16] MEDS: PANTOprazole 40 MG TAB PO SCH (08:23)
[2018-05-16] MEDS: ATORVASTATIN 40 MG TAB PO SCH (08:23)
[2018-05-16] MEDS: VENLAFAXINE HCL XR 75 MG CAPXR PO SCH (08:23)
[2018-05-16] MEDS: LISINOPRIL 5 MG TAB PO SCH (08:23)
[2018-05-16] MEDS: VENLAFAXINE HCL XR 150 MG CAPXR PO SCH (08:24)
[2018-05-16] MEDS: FUROSEMIDE 40 MG TAB PO SCH (08:24)
[2018-05-16] MEDS: BusPIRone 15 MG TAB PO SCH ×3 (08:24→20:58)
[2018-05-16] MEDS: dilTIAZem HCL 180 MG CAPCR PO SCH (08:25)
[2018-05-16] MEDS: INSULIN GLARGINE SOLOSTAR 100 UNITS/ML 3 ML PEN SC SCH ×2 (08:26→22:15)
[2018-05-16] MEDS: DABIGATRAN ETEXILATE 75 MG CAP PO SCH ×2 (08:28→20:59)
[2018-05-16] MEDS: BUDESONIDE 90 MCG INH INH SCH (08:28)
[2018-05-16] MEDS: INSULIN ASPART 100 UNITS/ML 3 ML PEN SC SCH ×4 (08:32→22:15)
[2018-05-16] MEDS: KETOCONAZOLE 2% CR 15 GM TUBE EXT SCH ×2 (08:33→20:59)
[2018-05-16] MEDS: DOXYCYCLINE HYCLATE 100 MG in DEXTROSE 5% 100 ML IV SCH (08:42)
--- NOTE | 2018-05-16 09:09 | Pharmacy Report ---
Glycemic Control Consultation - Date of Service May 16, 2018 - Scope Scope: Glycemic Pharmacist consulted by Dr Bello on 05/15/17 for glycemic control and to write orders per [facility] inpatient glycemic control protocol - Objective Weight: 115.6 kg Accuchecks BSG (last 24hrs): 05/15/18 05/15/18 05/15/18 11:27 11:28 13:27 POC Glucose 383 H* 396 H* 300 H 05/15/18 05/15/18 05/16/18 16:18 20:28 00:49 POC Glucose 196 H 249 H 163 H 05/16/18 07:36 POC Glucose 209 H - Recent Pertinent Medications Outpatient Anti-diabetic Regimen: * Lantus 30 units qAM, Lantus 33 units qPM, Lispro SSI * A1c = 7.2 % 04/25/18 The patient is currently receiving: * Basal insulin: Lantus 30-35 units every 12 hours * Correctional Insulin: Novolog Correction per scale ACHS Goal Range: Low 110 mg/dL - High 140 mg/dL Correction Factor: 15 mg/dL/unit * Prandial insulin: Per carb ratio of 1 unit per 5 grams CHO consumed Risk Factors for Insulin Resistance: * Steroids: solu medrol 40 mg IV q6 * Diet: T2DM - Assessment & Plan Assessment & Plan: ASSESSMENT: * 78 yr old T2DM female admitted for hypoxia, COPD exacerbation. Patient was started on high dose IV steroids; solu medrol 40 mg IV q6h. * Lucie is maintained on 63 units of Lantus per day plus Lispro per sliding scale. She received a total of 122 units of SQ insulin yesterday. * Fasting BSG of 209 mg/dL is above goal, therefore I will increase basal insulin. * Post prandial BSGs are also above goal. Will tighten Novolog parameters while on IV steroids. PLAN FOR INPATIENT GLYCEMIC CONTROL: * Basal insulin * Lantus 35-40 units SQ BID * 35 units for BSG 160 mg/dL or less * 40 units for BSG greater than 160 mg/dL * Bolus insulin - tighten * NovoLog per scale ACHS or Q6hrs while NPO * Goal Range: Low 110 mg/dL - High 140 mg/dL * Correction Factor: 12 mg/dL/unit * Nutritional / Prandial insulin per carb ratio of 1 unit per 4 grams CHO consumed * Add overnight check with coverage at 00 and 04 * Please note that the plan above was derived based on current level of insulin resistance and hospital stress. These recommendations are appropriate for inpatient admission only. Plan of care upon discharge will need to be reassessed to avoid potential outpatient hypo/hyperglycemia. Thank you.
[2018-05-16] MEDS ORDERED: ROCURONIUM BROMIDE 10 MG/ML 10 ML VIAL IV ONE (09:24)
[2018-05-16] MEDS ORDERED: ETOMIDATE 2 MG/ML 20 ML VIAL IV ONE ×2 (09:24→15:40)
--- NOTE | 2018-05-16 09:33 | XRay Report ---
XR chest 1V portable CLINICAL HISTORY: 78 years-old Female presenting with Hypoxia. TECHNIQUE: Portable upright AP view of the chest was obtained. COMPARISON: . FINDINGS: Atherosclerosis of the aortic arch. Cardiac silhouette enlarged. Pulmonary vascular prominence. Coars ened lung markings with added density of the mid to lower left lung and to a lesser extent at the rig ht lung base. Lucency at the right lung base. No large pleural effusion. Degenerative changes of the thoracic spine. Degenerative changes of the shoulders. IMPRESSION: 1. Cardiomegaly with volume overload/congestive change. Developing pulmonary edema is not excluded. Asymmetry of the density on the left could alternatively raise concern for an infectious infiltrate. Consider PA and lateral views for better assessment. 2. Radiolucency at the right lung base. Given the upright positioning of this radiograph, it is doub tful this represents a basilar/anterior pneumothorax. However, dedicated PA and lateral views recomme nded. Alternatively, this may represent lucency secondary to skin folds. The report will be called/faxed according to standard departmental protocol. Electronically signed by: Eddie Waters M.D. 05/16/2018 9:32 AM
[2018-05-16 09:47] LABS: Allen Test Pos (Pos); HCO3 ABG 44 mmol/L (19-24); Oxygen Saturation ABG 90.5 % (90-95); PCO2 ABG 104 mmHg (35-46); PO2 ABG 71 mm/Hg (80-95); pH ABG 7.24 (7.35-7.45)
[2018-05-16 09:53] LABS: Basophils # (auto) 0.01 K/uL (0-0.2); Basophils % (auto) 0.1 %; Hematocrit (blood only) 40.3 % (37-47); Hemoglobin 12.3 g/dL (12.0-16.0); Immature Granulocytes # (auto) 0.04 K/uL (0.00-0.02); Immature Granulocytes % (auto) 0.3 %; Lymphocytes # (auto) 0.32 K/uL (1.2-3.4); Lymphocytes % (auto) 2.4 %; Mean Corpuscular Hgb Conc 30.5 g/dL (32-36); Mean Corpuscular Volume 94.6 fL (80-100); Mean Platelet Volume 10.3 fL (7.4-10.4); Monocytes # (auto) 0.33 K/uL (0.11-0.59); Monocytes % (auto) 2.4 %; Neutrophils # (auto) 12.83 K/uL (1.4-6.5); Neutrophils % (auto) 94.8 %; Nucleated RBC # (auto) 0.02 K/uL (0-0); Nucleated RBC % (auto) 0.2 %; Platelet Count 316 K/uL (130-400); RDW Coefficient of Variation 14.5 % (11.5-14.5); RDW Standard Deviation 49.3 fL (36.4-46.3); Red Blood Count 4.26 M/uL (4.2-5.4); White Blood Count 13.53 K/uL (4.8-10.8)
[2018-05-16] MEDS ORDERED: FUROSEMIDE 80 MG in SYRINGE 0 ML IV ONE (10:00)
[2018-05-16 10:14] LABS: Albumin Level 2.7 gm/dl (3.4-5.0); BUN Creatinine Ratio 28.4 (10-20); Calcium 8.9 mg/dl (8.5-10.1); Creatinine Clr Calc Pharmacy 45.5 ml/min; Est GFR (African American) 46.6; Est GFR (Non-African American) 40.2; Potassium 3.9 mmol/L (3.5-5.1)
[2018-05-16 10:24] LABS: Albumin Globulin Ratio 0.6 (0.9-2); Bilirubin,Total 0.5 mg/dl (0.2-1); Globulin 4.6 gm/dl (2.5-4.0); Total Protein 7.4 gm/dl (6.4-8.2)
--- NOTE | 2018-05-16 15:03 | XRay Report ---
XR chest 1V portable CLINICAL HISTORY: aspiration dyspnea COMPARISON STUDY: 05/16/2017 9:12 AM FINDINGS: Mild stable cardiomegaly. Lungs are considered grossly clear. No evidence pneumothorax. No focal infiltrate. Slight prominence of pulmonary vasculature. IMPRESSION: Slight prominence of pulmonary vasculature. Lungs otherwise appear clear with no evidenc e for infiltrate or pneumothorax. The above report was generated using voice recognition software. It may contain grammatical, syntax or spelling errors. Electronically signed by: Jose Angel Richter M.D. 05/16/2018 3:01 PM
[2018-05-16] MEDS ORDERED: RAPID SEQUENCE INDUCTION BAG ONE (15:23)
[2018-05-16] MEDS ORDERED: MIDAZOLAM HCL 125MG/250ML D5W ONE (15:29)
[2018-05-16] MEDS ORDERED: ROCURONIUM BROMIDE 10 MG/ML 10 ML VIAL IV STA (15:40)
--- NOTE | 2018-05-16 15:47 | Procedure Note ---
Procedure Note Date of Service May 16, 2018 Note Procedure: Endotracheal intubation Date: 05/16/18 Time: 15:25 Provider: Jose Godfrey PA-C Indication: Patient presented with acute on chronic hypoxia and hypaercapnia. Verbal consent was obtained from family and from patient for emergent endotracheal intubation Patient was transferred emergently to room 108 in the SICU Narrative: Patient was premedicated with 30mg of Etomidate and 50 mg of Rocuronium. Medication were ordered by Dr. Dejesus Using a BVM, patient was oxegenated to 99% SaO2 A Glidescope with a #3 blade was used to visualize the vocal chords. Chords moved symetrically. A #8.0 mm endotracheal tube was easily advanced to 22cm at the lip and visualized passing the chords Colormetric changes were noted and breth sounds were auscultated in both lungs. A CXR was ordered to confirm placement of the ET tube The patient tolerated the procedure with with no complications. Dr. Dejesus was present for the entire procedure.
--- NOTE | 2018-05-16 16:19 | XRay Report ---
XR chest 1V portable HISTORY: 78 years-old Female S/P central line insertion status post placement of a right-sided centr al venous catheter COMPARISON: Chest radiograph 05/16/2017 TECHNIQUE: Portable AP view of the chest. FINDINGS: Cardiac silhouette is enlarged, unchanged. Calcification of the thoracic aortic arch. Endotracheal tu be overlies the midline, 2.0 cm superior to the jac. Enteric tube is noted coursing below the diap hragm with distal tip coursing towards the right upper quadrant abdomen outside the [id number]. A central venous catheter is noted along the course of the right subclavian vein with distal tip in the expected location of the mid SVC. No postprocedural pneumothorax identified. No large pleural effusi on or overt pulmonary edema. Mild pulmonary vascular congestion persists. Degenerative changes of the shoulders and spine. IMPRESSION: 1. Right subclavian central venous catheter is noted, distal tip in the expected location of the mid SVC. 2. No postprocedural pneumothorax. 3. Endotracheal and enteric tube placement as above. The above report was generated using voice recognition software. It may contain grammatical, syntax o r spelling errors. Electronically signed by: Bandar Guzman M.D. 05/16/2018 4:18 PM
[2018-05-16] MEDS: MIDAZOLAM HCL 125 MG/250 ML BAG IV SCH (17:15)
[2018-05-16] MEDS: fentaNYL DRIP 1,250 MCG/250 ML BAG IV SCH (17:15)
[2018-05-16 18:04] LABS: iSTAT Arterial Blood Gas HCO3 46 meg/L (19-24); iSTAT Carbon Dioxide > 40 mEq/l (24-31); iSTAT FiO2 70 %
[2018-05-16] MEDS ORDERED: MIDAZOLAM HCL 1 MG/ML 2ML VIAL IV PRN (18:32)
[2018-05-16] MEDS ORDERED: fentaNYL citrate 100 MCG/2 ML VIAL IV PRN (18:32)
[2018-05-16] MEDS ORDERED: PIPERACILL/TAZOBAC CONSULT ACTIVE PRN (18:40)
[2018-05-16] MEDS ORDERED: PIPERACILLIN/TAZOBACTAM 3.375 GM in DEXTROSE 5% 100 ML IV SCH (18:45)
--- NOTE | 2018-05-16 18:53 | Critical Care Consultation ---
Date of Consultation May 16, 2018 Assessment & Plan (1) Acute on chronic respiratory failure with hypoxia and hypercapnia: Impression: 1. Acute on chronic hypercapnic and hypoxic respiratory failure secondary to acute aspiration in addition to severe COPD. 2. Aspiration of biliary material suctioned with a bronchoscopy. Affecting the left lower lobe. 3. History of anxiety, the patient treated with multiple psychedelic medications affecting her respiratory drive as well as her cough reflex. 4. Morbid obesity with obstructive sleep apnea, could not tolerate BiPAP. 5. Atrial fibrillation. Rate controlled. 6. Diastolic heart failure. 7. History of CVA also contributing to her recurrent aspiration. Plan: 1. Intubate the patient. 2. Perform bronchoscopy for airway clearance, large amount of biliary secretions was removed from all segments of the lung. 3. Noted in the bronchoscopy, endobronchial lesion at the lingular bronchus. No biopsy was performed, the patient was on Pradaxa. 4. ST changes also noted with slight elevation in the septal leads, we will check troponin. 5. Central line was placed in the right subclavian area and good to use. 6. A line placed in the right radial area. Noted a waves. 7. I will change the antibiotics from doxycycline to Zosyn due to srinivas aspiration noted on the bronchoscopy. 8. I would continue with bronchodilators and changed him to DuoNeb every 4 hours while intubated. 9. I will change diltiazem from Exar to 90 mg every 6 hours through the OG tube. 10. I would discontinue Effexor, continue with Remeron and trazodone. 11. I will decrease also the psych medications in the morning even further. 12. Continue with steroids 40 mg of Solu-Medrol every 6 hours. 13. Fentanyl and Versed drip for sedation. 14. Agree with Lasix 40 mg daily. 15. I will obtain a repeat echocardiogram if it has not been done recently. 16. PRN fentanyl and Versed can be used for synergy. 17. Discussed with the family in details. 18. Continue with Pradaxa, for A. fib, which will provide DVT prophylaxis. 19. Change Protonix to IV daily. 20. I will start the patient on the VAP Bundle. Discussed with the staff on rounds and details, critical care time spent with the patient was 60 minutes excluding procedures time. History of Present Illness Reason for Consultation: Acute on chronic respiratory failure. Requesting Physician: Dr. Bello Attending Physician: Irving Bello History of Present Illness Dear Dr. Bello: Thank you for the kind referral of Mrs. Church to critical care service. This is a 78-year-old female with a history of COPD, home O2 dependent, morbid obesity, obstructive sleep apnea, hyperlipidemia, diastolic heart failure, A. fib, history of CVA, diabetes, restless leg syndrome, hyperlipidemia, anxiety. The patient was admitted to the hospital with increasing shortness of breath and treated for COPD exacerbation. Today in the morning, the patient vomited and could not tolerate higher level of oxygenation. I was asked to evaluate the patient at the bedside. When I interviewed the patient, she was lethargic barely opening her eyes, answering yes and no, she could not complete a sentence. She is severely short of breath with wheezing and upper airway sounding as well. The patient had gurgling sounds also in her mouth. She was on 15 L via facemask. Information obtained from the daughter who was at the bedside, claimed that her mother lives alone, and she is ambulatory only to the bathroom and she feels short of breath even with minimal ambulation. She does have oxygen at home which she has been using. She does not use positive airway pressure at night due to claustrophobia. The patient has been in and out of the hospital due to COPD exacerbation. Her body weight has been the same, she is morbidly obese, and she has been treated with pramipexole for restless leg syndrome. Review of system was not obtainable, family history is not related to her current illness. The patient is ex-smoker and quit over 12 years ago. No industrial exposure. She lives alone. Allergies Allergy/AdvReac Type Severity Reaction Status Date / Time mushroom Allergy Unknown Unknown Verified 05/15/18 02:02 theophylline Allergy Unknown Unknown Verified 05/15/18 02:02 codeine AdvReac Severe HYPERVENTIL Verified 05/15/18 02:02 ATES morphine AdvReac Severe Causes Afib Verified 05/15/18 02:02 Home Medications Home Medications Medication Instructions Recorded Confirmed Type amiodarone [Pacerone] 200 mg PO DAILY 04/09/18 05/15/18 History atorvastatin [Lipitor] 80 mg PO DAILY 04/09/18 05/15/18 History budesonide [Pulmicort Flexhaler] 2 inh INHALATION BID 04/09/18 05/15/18 History buspirone 15 mg PO TID 04/09/18 05/15/18 History dabigatran etexilate [Pradaxa] 150 mg PO BID 04/09/18 05/15/18 History diclofenac sodium [Voltaren] 4 g TOPICAL QID PRN MDD 16 gm 04/09/18 05/15/18 History daily to any one joint diltiazem HCl [Cardizem CD] 180 mg PO BID 04/09/18 05/15/18 History ferrous sulfate 325 mg PO BID 04/09/18 05/15/18 History furosemide [Lasix] 40 mg PO DAILY 04/09/18 05/15/18 History insulin glargine [Lantus Solostar 30 units SUBCUT QAM 04/09/18 05/15/18 History U-100 Insulin] insulin lispro [Humalog KwikPen 0 unit SUBCUT BID 04/09/18 05/15/18 History Insulin] ipratropium bromide 1 unit INHALATION Q4 PRN 04/09/18 05/15/18 History ketoconazole 1 applic TOPICAL BID 04/09/18 05/15/18 History lisinopril [Zestril] 5 mg PO DAILY 04/09/18 05/15/18 History mirtazapine 30 mg PO HS 04/09/18 05/15/18 History pantoprazole 40 mg PO DAILY 04/09/18 05/15/18 History pramipexole 1 mg PO HS 04/09/18 05/15/18 History trazodone 200 mg PO HS 04/09/18 05/15/18 History venlafaxine [Effexor XR] 75 mg PO DAILY 04/09/18 05/15/18 History venlafaxine [Effexor XR] 150 mg PO DAILY 04/09/18 05/15/18 History vitamin B complex 1 tab PO DAILY 04/09/18 05/15/18 History insulin glargine [Lantus Solostar 33 unit SUBCUT HS 05/15/18 05/15/18 History U-100 Insulin] ipratropium-albuterol 3 ml NEB Q4 PRN 05/15/18 05/15/18 History lorazepam 0.5 mg PO HS PRN 05/15/18 05/15/18 History Patient History Medical History Hypotension (Acute) COPD exacerbation (Acute 06/12/13) Anxiety (Acute) CVA (cerebral infarction) (Acute 04/24/14) Hypoxia (Acute) Family History Other Family history non-contributory Social History Current Living Situation: Family Other Information That Helps Us Care for You: No Feels Safe at Home: Yes Safety Concerns: Feels Safe At This Time Smoking Status: Former smoker Hx Alcohol Use: No Hx Substance Use: No Beliefs That Will Affect Care: None Communication Ability: Unable Review of Systems Review of systems not obtainable due to patient being in respiratory distress and semi-obtunded. Physical Exam 2 Vital Signs (Past 24 Hours): Last Vital Signs Temp 36.5 C 05/16/18 11:36 Pulse 63 05/16/18 17:35 Resp 16 05/16/18 17:35 BP 128/55 L 05/16/18 11:36 Pulse Ox 100 05/16/18 17:35 Physical Exam: Elderly female, vital signs are borderline with O2 sat of 89% on 15 L, respiratory rate of 40, using accessory muscles, upper airway sounding from secretions piling in her hypopharynx area, bilateral diminished breath sounds, S1-S2 she is in A. fib, abdomen is obese but benign, edema in the periphery. Neurologically she is obtunded and difficult to respond. No rash. Results & Data Laboratory Results Labs were reviewed, which showed acute on chronic hypercapnic respiratory failure, hypoxia also was noted. Elevated white count and BUN/creatinine has been within her baseline. Diagnostic Findings Chest x-rays all were reviewed personally, the patient remains with hyperinflated lung, left lower lobe infiltrate that has been new. Chest x-ray post intubation and central line placement reviewed personally which did not show any pneumothorax. ET tube is 2 cm above the jac.
--- NOTE | 2018-05-16 18:59 | Procedure Note ---
Procedure Note Date of Service May 16, 2018 Note Bronchoscopy was done at the bedside, in room 8, consent obtained from the family, risk and benefit explained details agreed to the procedure. My colleague Jose Godfrey obtain the consent. The patient was already intubated, and monitored with ICU style of monitoring. The patient was already on fentanyl and Versed, did not require additional doses of sedation. Did not require even lidocaine topical. Her vitals were suitable for the procedure. Timeout was performed by the nursing staff, appreciate their assistance. The bronchoscope passed through the blue adapter through the #8 ET tube, and the findings as follows: 1. Large amount of biliary material was noted in every segment of the tracheobronchial tree. 2. All biliary material and mucoid impaction as well as food material were suctioned to clear. 3. Amount of saline injected was less than 20 mL during the procedure. 4. Specimen was sent for microbiology. Although I believe it will be sterile. 5. At the takeoff of the lingula, noted abnormal mucosa, with growth, not amenable to biopsy as the patient was on Pradaxa. 6. I will obtain a CAT scan of the chest to further delineate the lingular area. 7. The tip of the ET tube was 3 cm above the jac. 8. The bronchoscope after that was removed entirely, no immediate complication , no hypoxia, patient tolerated the procedure very well. Thank you to all involved.
[2018-05-16] MEDS ORDERED: PIPERACILLIN/TAZOBACTAM 4.5 GM in DEXTROSE 5% 100 ML IV ONE (19:00)
--- NOTE | 2018-05-16 19:03 | Procedure Note ---
Procedure Note Date of Service May 16, 2018 Note Central line was placed as the patient has only one IV in her right thumb, done emergently, although the family consented afterward for procedure. Indicated for the patient was intubated in critical condition that require IV access. The patient was placed in supine position, under strict sterile field, the right subclavian area has been cleaned, and sterilized with ChloraPrep, under strict sterile field, the skin was injected in the right subclavian area with 5 mL 1% lidocaine, using Seldinger technique, the line was placed to 15 cm using a dilator without scalpel, all ports were flushed with saline, secured with surgical sutures, and covered with surgical dressing, the chest x-ray showed the tip of the catheter at the SVC, no pneumothorax, no immediate application, patient tolerated the procedure well.
--- NOTE | 2018-05-16 19:04 | Procedure Note ---
Procedure Note Date of Service May 16, 2018 Note A line was placed in the right radial area, under strict sterile field, the needed for the airline for multiple ABGs, the daughter was consented for the procedure via my colleague Jose Godfrey. Under strict sterile field, the skin was prepped with chlorhexidine, using Seldinger technique and a catheter with a wire, the catheter was placed and connected to the transducer, a waves were noted on the monitor, secured with surgical dressing, and secured with one surgical suture. Tolerated the procedure very well, no immediate complication. May use a line.
[2018-05-16] MEDS: dilTIAZem HCL 30 MG TAB PO SCH (19:29)
[2018-05-16] MEDS: NOREPINEPHRINE BIT INJ 8 MG in DEXTROSE 5% 500 ML IV SCH (20:10)
[2018-05-16] MEDS: TRAZODONE HCL 100 MG TAB PO SCH (20:57)
[2018-05-16] MEDS: PRAMIPEXOLE DIHYDROCHLO 0.5 MG TAB PO SCH (20:58)
[2018-05-16] MEDS: MIRTAZAPINE TAB 15 MG TAB PO SCH (21:00)
[2018-05-16] MEDS ORDERED: OPTIRAY 320 125ml IV PRN (21:40)
--- NOTE | 2018-05-16 22:15 | CT Scan Report ---
CT angio chest w con HISTORY: 78 years-old Female abnormal endobronchial lingula,incidental finding follow-up study in a patient with acute on chronic shortness of breath and history of COPD COMPARISON: Chest CT 09/13/2016 TECHNIQUE: CTA of the chest was obtained following the intravenous administration of 116 mL Optiray 3 20 IV contrast. 3-D coronal and sagittal MIPS were obtained from the axial data set and were submitte d for review. All measurements were obtained according to NASCET criteria. A dose lowering technique was used consistent with the principals of MADELINE. FINDINGS: CTA: Mild multichamber cardiac enlargement. No pericardial effusion. Coronary arterial, aortic and mitral annular calcifications are noted. There is no thoracic aortic aneurysm or dissection. Moderate calcif ied plaque about the thoracic aortic arch appears to cause at least mild luminal narrowing at the ced gin of the left subclavian artery. The remaining imaged great vessels appear patent. The pulmonary ar terial tree is opacified to the level the segmental branches and demonstrates no focal filling defect s to suggest pulmonary thromboembolic disease. CT CHEST: Heterogeneous appearance of the thyroid with coarse calcifications about the thyroid isthmus. AP wind ow lymph nodes measure up to 8 mm. Enlarged subcarinal lymph nodes measure up to 11 mm. Prominent and mildly enlarged bilateral hilar lymph nodes are up to approximately 11 mm. Right subclavian central venous catheter is noted, distal tip terminating about the mid SVC. Endotrac heal tube is present within the trachea terminating 1.6 cm superior to the level the jac. Enteric tube is present with distal tip coursing outside the [id number] within the gastric lumen. No pneumothorax or pleural effusion. Mild upper lung zone predominant centrilobular emphysema with mu ltisegmental multilobar distribution of tree-in-bud micronodules with ill-defined centrilobular micro nodules. Moderate bilateral bronchial wall thickening with tracheobronchial secretions and mucous plu gging. Scattered calcified granulomata. No lobar airspace consolidation. No significant air trapping or overt pulmonary edema. Minimal layering groundglass opacities about the bilateral fissures. No def inite endobronchial mass identified. No acute process of the imaged upper abdomen. Soft tissues are unremarkable. Degenerative changes of the shoulders and spine. IMPRESSION: 1. No acute aortic pathology or evidence of pulmonary thromboembolic disease. 2. Tube and line placement as above. 3. Emphysema with bronchitis, tracheobronchial secretions and multifocal mucus plugging. 4. 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 5. Mild mediastinal and hilar adenopathy, likely reactive. 6. Additional findings as above. The above report was generated using voice recognition software. It may contain grammatical, syntax o r spelling errors. Electronically signed by: Bandar Guzman M.D. 05/16/2018 10:13 PM
--- NOTE | 2018-05-16 23:33 | Hospitalist Progress Note ---
Date of Service May 16, 2018 Assessment & Plan (1) Acute on chronic respiratory failure with hypoxia and hypercapnia: Patient appears to be in this state as described in the header. Obtained x-ray . and ABG. ABG showed CO2 above 100. Patient will require continuous Bipap at this time. Will closely monitor patient. Also will place consult with pulmonary provider. Will give lasix 80 mg as patient may be in CHF. UPDATE: At around noon, patient appears to have aspirated. Patient was unable to tolerate BiPAP, code staus was discussed again and patient was deemed full code. ERxplained to patient and family that patient will likely require a bronch and be intubated to protect her airways. Family is aware and all questions were answered. D/W pc support specialist, will transfer patient to the ICU. (2) Hypoxia: 2) Hemoptysis - may be due to cough, irritation and Pradaxa use. Pradaxa was resumed yesterday. Patient has not been coughing blood today.- consider a CT chest if hemoptysis persists 3) HTN, HLD - cont Atorvastatin, Diltiazem, Lisinopril 4) DM - placed on a SS 5) AF - sinus on admission - Pradaxa temporarily held as above - cont Diltiazem 6) LOGAN - BiPAP ordered HS Full code Pradaxa prophylaxis Spent 40 minutes in management of inital visit with patient. On second vist, spent 35 minutes. 31 minutes of total time was critical care time. Subjective Was called by nurse at approximately 9:00 Patient washypoxic and tacypnic, on oxygen. It appears patient had refused BiPap overnight. Patient was placed on Bipap this morning and initally did not respond as her oxygen was low. However once parameters were changed, oxygen level had improved. Patient was unable to provide history once I arrived in the room, as she required continuos BiPap. Review of Systems Other Unable to obtain due to patient being on BiPap Physical Exam 2 Vital Signs (Past 24 Hours): Last Vital Signs Temp 36.9 C 05/16/18 20:00 Pulse 72 05/16/18 22:15 Resp 24 05/16/18 22:13 BP 89/26 L 05/16/18 22:02 Pulse Ox 97 05/16/18 22:15 Physical Exam: General: Overweight, elderly F - in no distress on BiPAP, ENT: No erythema or exudates, no thrush Eyes: KAMRAN, EOMI Head and neck: Normocephalic, atruamatic, neck is supple. Chest/heart: Nontender, S1,2, RRR, no murmurs, no gallops Lungs: Poor air movement and wheezing in all allen Abdomen: Nontender, nondistended, BS+ Neuro: AAO x 3, speech is clear, no unilateral weakness or loss of sensation, coordination intact Musculoskeletal: No joint inflammation, muscle tenderness, FROM Skin: No acute rashes or ulcers Extremities: No clubbing, cyanosis, edema
[2018-05-17] MEDS: PIPERACILLIN/TAZOBACTAM 4.5 GM in DEXTROSE 5% 100 ML IV SCH ×4 (00:03→23:45)
[2018-05-17] MEDS: INSULIN ASPART 100 UNITS/ML 3 ML PEN SC SCH ×7 (00:20→23:45)
[2018-05-17] MEDS: ALBUT/IPRATROP 3MG/0.5MG NEB 3 ML VIAL NEB SCH ×7 (01:39→23:12)
[2018-05-17] MEDS: methylPREDNISolone 40 MG in SYRINGE 0 ML IV SCH ×4 (04:17→21:22)
[2018-05-17 05:12] LABS: Basophils # (auto) 0.01 K/uL (0-0.2); Basophils % (auto) 0.1 %; Hematocrit (blood only) 36.8 % (37-47); Immature Granulocytes # (auto) 0.04 K/uL (0.00-0.02); Immature Granulocytes % (auto) 0.3 %; Lymphocytes # (auto) 0.28 K/uL (1.2-3.4); Mean Corpuscular Hgb Conc 29.9 g/dL (32-36); Mean Corpuscular Volume 96.1 fL (80-100); Mean Platelet Volume 10.5 fL (7.4-10.4); Monocytes # (auto) 0.53 K/uL (0.11-0.59); Monocytes % (auto) 3.8 %; Neutrophils # (auto) 13.18 K/uL (1.4-6.5); Neutrophils % (auto) 93.8 %; Platelet Count 326 K/uL (130-400); RDW Coefficient of Variation 14.9 % (11.5-14.5); RDW Standard Deviation 51.8 fL (36.4-46.3); Red Blood Count 3.83 M/uL (4.2-5.4); White Blood Count 14.04 K/uL (4.8-10.8)
[2018-05-17 05:17] LABS: BUN Creatinine Ratio 25.4 (10-20); Calcium 8.2 mg/dl (8.5-10.1); Creatinine Clr Calc Pharmacy 31.6 ml/min; Est GFR (African American) 29.9; Est GFR (Non-African American) 25.8; Magnesium 2.7 mg/dl (1.8-2.4); Potassium 3.8 mmol/L (3.5-5.1)
[2018-05-17 05:22] LABS: Phosphorus 4.4 mg/dl (2.5-4.9); Troponin I 0.025 ng/ml (0-0.045)
[2018-05-17 05:46] LABS: iSTAT Arterial Blood Gas HCO3 43 meg/L (19-24); iSTAT Carbon Dioxide > 40 mEq/l (24-31); iSTAT FiO2 40 %
[2018-05-17] MEDS ORDERED: Nursing to Pharmacy Communication ONE (07:08)
--- NOTE | 2018-05-17 07:27 | XRay Report ---
XR chest 1V portable CLINICAL HISTORY: 78 years-old Female presenting with f/u. TECHNIQUE: Portable upright AP view of the chest was obtained. COMPARISON: 05/16/2018. FINDINGS: Right subclavian central venous catheter terminates in the upper SVC. Endotracheal tube terminates 1. 9 cm from the jac atherosclerosis of the aortic arch. Nasogastric tube poorly visualized though th e ascending below the diaphragm. Cardiac silhouette top normal in size. Pulmonary vascular prominence as on prior exam. Bronchial wall thickening. Scattered reticulonodular opacities with added density of the lungs. No large effusion or pneumothorax. Osseous structures normal. Upper abdomen normal. IMPRESSION: 1. Stable to slight interval worsening of reticulonodular opacities and added density of the lungs r aising concern for worsening infectious bronchiolitis. 2. There may be a superimposed element of volume overload/congestive change. 3. Appropriately positioned lines and tubes. Electronically signed by: Eddie Waters M.D. 05/17/2018 7:25 AM
[2018-05-17] MEDS ORDERED: INSULIN REGULAR 250 UNITS in SODIUM CHLORIDE 0.9% 247.5 ML IV SCH (08:45)
[2018-05-17] MEDS: fentaNYL DRIP 1,250 MCG/250 ML BAG IV SCH (08:57)
[2018-05-17] MEDS: SODIUM CHLORIDE 0.9% 1000ML 1,000 ML IV SCH ×2 (08:58→21:21)
[2018-05-17] MEDS ORDERED: MODERATE STRESS LEVEL ONE (08:58)
[2018-05-17] MEDS ORDERED: INSULIN PROTOCOL GOAL RANGE ONE (09:00)
[2018-05-17] MEDS ORDERED: INSULIN ASPART 100 UNITS/ML 3 ML PEN SC SCH ×2 (09:00→12:00)
[2018-05-17] MEDS ORDERED: MODERATE STRESS LEVEL STA (09:05)
[2018-05-17] MEDS: BusPIRone 15 MG TAB PO SCH ×3 (10:32→20:11)
[2018-05-17] MEDS: AMIODARONE 200 MG TAB PO SCH (10:33)
[2018-05-17] MEDS: ATORVASTATIN 40 MG TAB PO SCH (10:33)
[2018-05-17] MEDS: FERROUS SULFATE 325 MG TAB PO SCH ×2 (10:33→20:12)
[2018-05-17] MEDS: FUROSEMIDE 40 MG TAB PO SCH (10:34)
[2018-05-17] MEDS: KETOCONAZOLE 2% CR 15 GM TUBE EXT SCH ×2 (10:34→20:14)
[2018-05-17] MEDS: DABIGATRAN ETEXILATE 75 MG CAP PO SCH ×2 (10:35→20:12)
[2018-05-17] MEDS: CHLORHEXIDINE GLUCONATE 0.12% 480 ML MT SCH (10:35)
[2018-05-17] MEDS: PANTOprazole 40 MG in SYRINGE 0 ML IV SCH (12:21)
--- NOTE | 2018-05-17 12:47 | Pharmacy Report ---
Pharmacy Glycemic Short Note 2 - Date of Service May 17, 2018 - Glycemic Short BSG Results (Last 24 hours): 05/16/18 05/16/18 05/17/18 17:14 22:10 00:16 Glucose POC Glucose 181 H 203 H POC Glucose (other) 217 H 05/17/18 05/17/18 05/17/18 04:19 04:31 06:47 Glucose 217 H POC Glucose POC Glucose (other) 225 H 206 H 05/17/18 05/17/18 10:33 12:30 Glucose POC Glucose POC Glucose (other) 162 H 169 H Outpatient Anti-diabetic Regimen: * Lantus 30 units qAM, Lantus 33 units qPM, Lispro SSI * A1c = 7.2 % 04/25/18 The patient is currently receiving: * Basal insulin: Lantus 35-40 units every 12 hours * Correctional Insulin: Novolog Correction per scale ACHS Goal Range: Low 110 mg/dL - High 140 mg/dL Correction Factor: 12 mg/dL/unit * Prandial insulin: Per carb ratio of 1 unit per 4 grams CHO consumed Risk Factors for Insulin Resistance: * Steroids: solu medrol 40 mg IV q6 * Diet: NPO --> Tube Feeds - Assessment & Plan Assessment & Plan: 05/17/18 * Patient transferred to ICU overnight, intubated, on norepinephrine, on solu medrol 40 mg q6H * Received a total of 131 units of SQ insulin yesterday. * Fasting BSG 217- planned to start insulin drip but lunch BSGS 162/169- will hold off for now * Patient to begin trickle feeds- 10 ml/hr- will provide 0.78 g of carb/hour * Would have low tolerance for starting insulin drip if BSGs elevated with addition of tube feeds 05/16/18 * 78 yr old T2DM female admitted for hypoxia, COPD exacerbation. Patient was started on high dose IV steroids; solu medrol 40 mg IV q6h. * Lucie is maintained on 63 units of Lantus per day plus Lispro per sliding scale. She received a total of 122 units of SQ insulin yesterday. * Fasting BSG of 209 mg/dL is above goal, therefore I will increase basal insulin. * Post prandial BSGs are also above goal. Will tighten Novolog parameters while on IV steroids. PLAN FOR INPATIENT GLYCEMIC CONTROL: * Basal insulin * Lantus 35-45 units SQ BID * 35 units for BSG 110 mg/dL or less * 40 units for BSG 111-180 mg/dL * 45 units for BSG > 180 * Bolus insulin - * NovoLog per scale q4H * Goal Range: Low 110 mg/dL - High 140 mg/dL * Correction Factor: 12 mg/dL/unit * Nutritional / Prandial insulin per carb ratio of 1 unit per 4 grams CHO consumed * * Please note that the plan above was derived based on current level of insulin resistance and hospital stress. These recommendations are appropriate for inpatient admission only. Plan of care upon discharge will need to be reassessed to avoid potential outpatient hypo/hyperglycemia.
[2018-05-17] MEDS: INSULIN GLARGINE SOLOSTAR 100 UNITS/ML 3 ML PEN SC SCH ×2 (13:01→20:13)
--- NOTE | 2018-05-17 16:00 | XRay Report ---
XR KUB CLINICAL HISTORY: Confirm placement of NGT tube position COMPARISON STUDY: 08/10/2015 FINDINGS: Nasogastric tube positioned in the mid stomach. Endotracheal tube 3 cm above the jac. Ce ntral catheter in superior vena cava. IMPRESSION: Nasogastric tube within the mid stomach. Endotracheal tube 3 cm above the jac. Centra l catheter in the superior vena cava. The above report was generated using voice recognition software. It may contain grammatical, syntax or spelling errors. Electronically signed by: Jose Angel Richter M.D. 05/17/2018 3:58 PM
[2018-05-17] MEDS: PEPTAMEN INTENSE VHP 1.0 CAL 1,000 ML BAG OG SCH (16:10)
--- NOTE | 2018-05-17 19:09 | Critical Care Progress Note ---
Date of Service May 17, 2018 Assessment & Plan (1) Acute on chronic respiratory failure with hypoxia and hypercapnia: Impression: 1. Acute on chronic hypercapnic and hypoxic respiratory failure secondary to acute aspiration in addition to severe COPD. 2. Aspiration of biliary material suctioned with a bronchoscopy. Affecting the left lower lobe. 3. History of anxiety, the patient treated with multiple psychedelic medications affecting her respiratory drive as well as her cough reflex. 4. Morbid obesity with obstructive sleep apnea, could not tolerate BiPAP. 5. Atrial fibrillation. Rate controlled. 6. Diastolic heart failure. 7. History of CVA also contributing to her recurrent aspiration. Plan: 1. Vent management. 2. No positive cultures from bronchoscopy specimen. 3. Endobronchial lesion was noted at the takeoff of the lingular bronchus, noted also on the CAT scan of the chest, etiology is unknown. 4. Slight elevation in the troponin with ST changes likely related to demand ischemia, does not appear to be persistent and the troponin normalized. 5. Continue current antibiotics. 6. Blood pressure has been elevated but the patient is already on diltiazem for blood pressure control. 7. So far no evidence of culture positive bronchoscopy specimen, however, the patient has biliary aspiration. Which most of the time is sterile. 8. DuoNeb every 4 hours. 9. Her medications has been reviewed, Effexor was eliminated. 10. Continue trazodone and Remeron, with a change of her kidney function, I would adjust the doses as well. 11. Glucose control per pharmacy, started on insulin drip, appreciated. 12. Continue with steroids 40 mg of Solu-Medrol every 6 hours. 13. Fentanyl and Versed drip for sedation. 14. The patient kidney function has worsened, will start gentle hydration. 15. I will obtain a repeat echocardiogram if it has not been done recently. 16. PRN fentanyl and Versed can be used for synergy. 17. Discussed with the family in details. 18. Continue with Pradaxa, for A. fib, which will provide DVT prophylaxis. 19. Change Protonix to IV daily. 20. I will start the patient on the VAP Bundle. Discussed with the staff on rounds and details, critical care time spent with the patient was 60 minutes excluding procedures time. Subjective The patient is sedated and intubated, review of system is not obtainable. Discussed with the family at the bedside. Physical Exam 2 Vital Signs (Past 24 Hours): Last Vital Signs Temp 37.3 C 05/17/18 16:00 Pulse 85 05/17/18 17:10 Resp 24 05/17/18 17:10 BP 102/46 L 05/17/18 17:00 Pulse Ox 94 05/17/18 17:10 Physical Exam: Vital signs remained stable, blood pressure slightly elevated, S1-S2 regular rate and rhythm, distant breath sounds bilaterally, abdomen is obese but benign, edema in the periphery noted. Results & Data Laboratory Results Labs were reviewed, and the patient BUN/creatinine has increased since yesterday. WBC remains stable. Left shift but no bandemia. Diagnostic Findings CT of the chest showed collapsible airways, subsegmental atelectasis, minimal pleural effusion, left hilar lesion. Etiology is unknown.
[2018-05-17] MEDS: PRAMIPEXOLE DIHYDROCHLO 0.5 MG TAB PO SCH (20:11)
[2018-05-17] MEDS: TRAZODONE HCL 100 MG TAB PO SCH (20:11)
[2018-05-17] MEDS: MIRTAZAPINE TAB 15 MG TAB PO SCH (20:12)
--- NOTE | 2018-05-17 21:28 | Hospitalist Progress Note ---
Date of Service May 17, 2018 Assessment & Plan (1) Acute on chronic respiratory failure with hypoxia and hypercapnia: Patient appears to be in this state as described in the header. This was present on admission Patient was intubated. During bronch, large amount of bile was removed from lung. This likely caused lung injury. Also during bronch, there appears to be a mass in her lung. Await CT scan. Aws Developer states h will discuss with family. Will hold biopsy as patient is on anticoag. Family was at bedside and were updated. Will keep patient intubated for another day. May consider wheening tomorrow. Present on Admission?: Yes (2) Hypoxia: 2) Hemoptysis - may be due to cough, irritation and Pradaxa use. Pradaxa was resumed on 05/15. No signs of hemoptysis 3) HTN, HLD - cont Atorvastatin, Diltiazem, Lisinopril 4) DM - placed on a SS 5) AF - sinus on admission - Pradaxa temporarily held as above, has been resumed. - cont Diltiazem 6) LOGAN - BiPAP ordered HS Full code Pradaxa prophylaxis Spent 35 minutes in management of patient, included conversation with family, encounter with patient, review documentation, and discussing with protective signal installer. Subjective Patient is intubated and sedated. She is unable to provide signifcant history. Physical Exam 2 Vital Signs (Past 24 Hours): Last Vital Signs Temp 37.3 C 05/17/18 16:00 Pulse 88 05/17/18 20:00 Resp 24 05/17/18 19:36 BP 107/47 L 05/17/18 20:00 Pulse Ox 94 05/17/18 20:00 Physical Exam: General: Overweight, elderly F - is intubated and sedated ENT: No erythema or exudates, no thrush - small sore on roof of mouth - R, post Eyes: KAMRAN, EOMI Head and neck: Normocephalic, atruamatic, neck is supple. Chest/heart: Nontender, S1,2, RRR, no murmurs, no gallops Lungs: distant breath sounds bilaterally Abdomen: Nontender, nondistended, BS+ Neuro: Patient is intubated and sedated. Musculoskeletal: No joint inflammation, muscle tenderness, FROM Skin: No acute rashes or ulcers Extremities: No clubbing, cyanosis, edema
[2018-05-17] MEDS: NOREPINEPHRINE BIT INJ 8 MG in DEXTROSE 5% 500 ML IV SCH (21:49)
[2018-05-17] MEDS: MIDAZOLAM HCL 125 MG/250 ML BAG IV SCH (21:49)
[2018-05-18] MEDS: fentaNYL DRIP 1,250 MCG/250 ML BAG IV SCH ×2 (01:40→19:44)
[2018-05-18] MEDS: INSULIN ASPART 100 UNITS/ML 3 ML PEN SC SCH ×5 (04:18→20:22)
[2018-05-18] MEDS: methylPREDNISolone 40 MG in SYRINGE 0 ML IV SCH ×4 (04:19→22:33)
[2018-05-18] MEDS: ALBUT/IPRATROP 3MG/0.5MG NEB 3 ML VIAL NEB SCH ×6 (04:58→23:06)
[2018-05-18 05:38] LABS: Creatinine Clr Calc Pharmacy 40.8 ml/min; Est GFR (African American) 41.8; Est GFR (Non-African American) 36.1
[2018-05-18] MEDS: MIDAZOLAM HCL 125 MG/250 ML BAG IV SCH (05:45)
[2018-05-18 09:32] LABS: BUN Creatinine Ratio 33.9 (10-20); Calcium 8.4 mg/dl (8.5-10.1); Creatinine Clr Calc Pharmacy 41.1 ml/min; Est GFR (African American) 41.5; Est GFR (Non-African American) 35.8; Potassium 3.9 mmol/L (3.5-5.1)
[2018-05-18 09:46] LABS: Hematocrit (blood only) 34.3 % (37-47); Immature Granulocytes # (auto) 0.04 K/uL (0.00-0.02); Immature Granulocytes % (auto) 0.5 %; Lymphocytes # (auto) 0.25 K/uL (1.2-3.4); Lymphocytes % (auto) 3.2 %; Mean Corpuscular Hgb Conc 29.2 g/dL (32-36); Mean Corpuscular Volume 95.3 fL (80-100); Mean Platelet Volume 10.4 fL (7.4-10.4); Monocytes # (auto) 0.28 K/uL (0.11-0.59); Monocytes % (auto) 3.6 %; Neutrophils # (auto) 7.19 K/uL (1.4-6.5); Neutrophils % (auto) 92.7 %; Platelet Count 220 K/uL (130-400); RDW Coefficient of Variation 15.1 % (11.5-14.5); RDW Standard Deviation 53.1 fL (36.4-46.3); White Blood Count 7.76 K/uL (4.8-10.8)
[2018-05-18] MEDS: BusPIRone 15 MG TAB PO SCH ×3 (09:51→20:24)
[2018-05-18] MEDS: DABIGATRAN ETEXILATE 75 MG CAP PO SCH ×2 (09:51→20:25)
[2018-05-18] MEDS: ATORVASTATIN 40 MG TAB PO SCH (09:51)
[2018-05-18] MEDS: FERROUS SULFATE 325 MG TAB PO SCH ×2 (09:51→20:25)
[2018-05-18] MEDS: PIPERACILLIN/TAZOBACTAM 4.5 GM in DEXTROSE 5% 100 ML IV SCH ×2 (09:51→15:25)
[2018-05-18] MEDS: FUROSEMIDE 40 MG TAB PO SCH (09:51)
[2018-05-18] MEDS: AMIODARONE 200 MG TAB PO SCH (09:51)
[2018-05-18] MEDS: INSULIN GLARGINE SOLOSTAR 100 UNITS/ML 3 ML PEN SC SCH ×2 (09:52→20:25)
[2018-05-18] MEDS: CHLORHEXIDINE GLUCONATE 0.12% 480 ML MT SCH (09:52)
[2018-05-18] MEDS: KETOCONAZOLE 2% CR 15 GM TUBE EXT SCH ×2 (09:53→20:25)
[2018-05-18] MEDS: SODIUM CHLORIDE 0.9% 1000ML 1,000 ML IV SCH ×2 (09:55→22:35)
[2018-05-18] MEDS: PANTOprazole 40 MG in SYRINGE 0 ML IV SCH (09:59)
[2018-05-18 11:42] LABS: iSTAT Arterial Blood Gas HCO3 41 meg/L (19-24); iSTAT Carbon Dioxide > 40 mEq/l (24-31); iSTAT FiO2 40 %
--- NOTE | 2018-05-18 13:03 | Pharmacy Report ---
Pharmacy Glycemic Short Note 2 - Date of Service May 18, 2018 - Glycemic Short BSG Results (Last 24 hours): 05/17/18 05/17/18 05/17/18 16:14 19:37 23:42 Glucose POC Glucose 193 H 154 H 144 H 05/18/18 05/18/18 05/18/18 04:16 08:00 09:08 Glucose 143 H POC Glucose 124 H 155 H 05/18/18 12:05 Glucose POC Glucose 178 H Outpatient Anti-diabetic Regimen: * Lantus 30 units qAM, Lantus 33 units qPM, Lispro SSI * A1c = 7.2 % 04/25/18 The patient is currently receiving: * Basal insulin: Lantus 35-40 units every 12 hours * Correctional Insulin: Novolog Correction per scale ACHS Goal Range: Low 110 mg/dL - High 140 mg/dL Correction Factor: 12 mg/dL/unit * Prandial insulin: Per carb ratio of 1 unit per 4 grams CHO consumed Risk Factors for Insulin Resistance: * Steroids: solu medrol 40 mg IV q6 * Diet: NPO --> Tube Feeds - Assessment & Plan Assessment & Plan: 05/18/18 * Patient remains intubated, norepinephrine titrated off, solu-medrol 40 mg q6 * Scr improving from yesterday * Patient received total of 98 unit of sq insulin yesterday * Tube feeds to be increased 10 mL every shift to goal rate of 60 ml/hr- cover with carb ratio * BSGs acceptable- will continue current lantus and novolog scales 05/17/18 * Patient transferred to ICU overnight, intubated, on norepinephrine, on solu medrol 40 mg q6H * Received a total of 131 units of SQ insulin yesterday. * Fasting BSG 217- planned to start insulin drip but lunch BSGS 162/169- will hold off for now * Patient to begin trickle feeds- 10 ml/hr- will provide 0.78 g of carb/hour * Would have low tolerance for starting insulin drip if BSGs elevated with addition of tube feeds 05/16/18 * 78 yr old T2DM female admitted for hypoxia, COPD exacerbation. Patient was started on high dose IV steroids; solu medrol 40 mg IV q6h. * Lucie is maintained on 63 units of Lantus per day plus Lispro per sliding scale. She received a total of 122 units of SQ insulin yesterday. * Fasting BSG of 209 mg/dL is above goal, therefore I will increase basal insulin. * Post prandial BSGs are also above goal. Will tighten Novolog parameters while on IV steroids. PLAN FOR INPATIENT GLYCEMIC CONTROL: * Basal insulin * Lantus 35-45 units SQ BID * 35 units for BSG 110 mg/dL or less * 40 units for BSG 111-180 mg/dL * 45 units for BSG > 180 * Bolus insulin - * NovoLog per scale q4H * Goal Range: Low 110 mg/dL - High 140 mg/dL * Correction Factor: 12 mg/dL/unit * Nutritional / Prandial insulin per carb ratio of 1 unit per 4 grams CHO consumed * * Please note that the plan above was derived based on current level of insulin resistance and hospital stress. These recommendations are appropriate for inpatient admission only. Plan of care upon discharge will need to be reassessed to avoid potential outpatient hypo/hyperglycemia.
--- NOTE | 2018-05-18 17:51 | Critical Care Progress Note ---
Date of Service May 18, 2018 Assessment & Plan (1) Acute on chronic respiratory failure with hypoxia and hypercapnia: Impression: 1. Acute on chronic hypercapnic and hypoxic respiratory failure secondary to acute aspiration in addition to severe COPD. 2. Aspiration of biliary material suctioned with a bronchoscopy. Affecting the left lower lobe. 3. History of anxiety, the patient treated with multiple psychedelic medications affecting her respiratory drive as well as her cough reflex. 4. Morbid obesity with obstructive sleep apnea, could not tolerate BiPAP. 5. Atrial fibrillation. Rate controlled. 6. Diastolic heart failure. 7. History of CVA also contributing to her recurrent aspiration. Plan: 1. Vent management. 2. Check microbiology from the bronchoscopy specimen. 3. Endobronchial lesion was noted at the takeoff of the lingular bronchus, noted also on the CAT scan of the chest, etiology is unknown. 4. Check labs. BUN and creatinine seems to be stable. 5. Continue current antibiotics. 6. Continue diltiazem for blood pressure control. 7. Expect prolonged course given the biliary aspiration. 8. DuoNeb every 4 hours. 9. Decrease trazodone 100 mg. 10. Continue Remeron, patient has been off Effexor. 11. Glucose control per pharmacy, started on insulin drip, appreciated. 12. Solu-Medrol can be changed to every 12 hours. 13. Fentanyl and Versed drip for sedation. 14. Renal function appears to be stable. 15. I will obtain echocardiogram. 16. PRN fentanyl and Versed can be used for synergy. 17. Discussed with the family in details. Plan for family meeting tomorrow at 2:30 PM. 18. Continue with Pradaxa, for A. fib, which will provide DVT prophylaxis. Dose adjusted. 19. Change Protonix to IV daily. 20. I will start the patient on the VAP Bundle. Discussed with the staff on rounds and details, critical care time spent with the patient was 45 minutes. Subjective The patient remains vented and sedated, review of system was not obtainable. She failed CPAP trial this morning. Physical Exam 2 Vital Signs (Past 24 Hours): Last Vital Signs Temp 36.8 C 05/18/18 16:00 Pulse 86 05/18/18 17:01 Resp 24 05/18/18 16:00 BP 118/53 L 05/18/18 17:01 Pulse Ox 96 05/18/18 17:01 Physical Exam: Vital signs are stable, S1-S2 regular rate and rhythm, lungs with rhonchi, abdomen is benign, edema in the periphery. Neurologically difficult to assess. Results & Data Laboratory Results Labs were reviewed personally. Diagnostic Findings No new imaging.
[2018-05-18] MEDS: MIRTAZAPINE TAB 15 MG TAB PO SCH (20:24)
[2018-05-18] MEDS: TRAZODONE HCL 100 MG TAB PO SCH (20:24)
[2018-05-18] MEDS: PRAMIPEXOLE DIHYDROCHLO 0.5 MG TAB PO SCH (20:24)
--- NOTE | 2018-05-18 22:52 | Hospitalist Progress Note ---
Date of Service May 18, 2018 Assessment & Plan (1) Acute on chronic respiratory failure with hypoxia and hypercapnia: Patient appears to be in this state as described in the header. This was present on admission Patient was intubated after aspirating on 05/16/18. During bronch, large amount of bile was removed from lung. This likely caused lung injury. Also during bronch, there appears to be a mass in her lung. CT scan confirms this mass. Manager Web states he will discuss with family. Will hold biopsy as patient is on anticoag. Patient is not ready to be extubated. Appreciate recommendations by intensitivist (2) Hypoxia: 2) Hemoptysis - may be due to cough, irritation and Pradaxa use. Pradaxa was resumed on 05/15. No signs of hemoptysis 3) HTN, HLD - cont Atorvastatin, Diltiazem, Lisinopril 4) DM - placed on a SS 5) AF - sinus on admission - Pradaxa temporarily held as above, has since been resumed. - cont Diltiazem 6) LOGAN - currently intubated Full code Pradaxa prophylaxis Subjective Patient remains intubated and sedated. Review of Systems Unobtainable due to endotracheal tube Physical Exam 2 Vital Signs (Past 24 Hours): Last Vital Signs Temp 37 C 05/18/18 20:01 Pulse 85 05/18/18 22:01 Resp 24 05/18/18 22:01 BP 126/50 L 05/18/18 22:01 Pulse Ox 96 05/18/18 22:01 Physical Exam: General: Overweight, elderly F - is intubated and sedated ENT: No erythema or exudates, no thrush - small sore on roof of mouth - R, post Eyes: KAMRAN, EOMI Head and neck: Normocephalic, atruamatic, neck is supple. Chest/heart: Nontender, S1,2, RRR, no murmurs, no gallops Lungs: distant breath sounds bilaterally Abdomen: Nontender, nondistended, BS+ Neuro: Patient is intubated and sedated. Musculoskeletal: No joint inflammation, muscle tenderness, FROM Skin: No acute rashes or ulcers Extremities: No clubbing, cyanosis, edema
[2018-05-19] MEDS: PIPERACILLIN/TAZOBACTAM 4.5 GM in DEXTROSE 5% 100 ML IV SCH ×4 (00:12→23:45)
[2018-05-19] MEDS: INSULIN ASPART 100 UNITS/ML 3 ML PEN SC SCH ×7 (00:15→23:47)
[2018-05-19] MEDS: PEPTAMEN INTENSE VHP 1.0 CAL 1,000 ML BAG OG SCH (00:45)
[2018-05-19] MEDS: ALBUT/IPRATROP 3MG/0.5MG NEB 3 ML VIAL NEB SCH ×6 (03:20→23:27)
[2018-05-19] MEDS: methylPREDNISolone 40 MG in SYRINGE 0 ML IV SCH ×4 (04:00→23:38)
[2018-05-19 05:24] LABS: Creatinine Clr Calc Pharmacy 55.6 ml/min; Est GFR (African American) 59.7; Est GFR (Non-African American) 51.5
[2018-05-19] MEDS: AMIODARONE 200 MG TAB PO SCH (07:35)
[2018-05-19] MEDS: FERROUS SULFATE 325 MG TAB PO SCH ×2 (07:35→21:23)
[2018-05-19] MEDS: BusPIRone 15 MG TAB PO SCH ×3 (07:35→21:23)
[2018-05-19] MEDS: FUROSEMIDE 40 MG TAB PO SCH (07:36)
[2018-05-19] MEDS: INSULIN GLARGINE SOLOSTAR 100 UNITS/ML 3 ML PEN SC SCH ×2 (07:36→21:24)
[2018-05-19] MEDS: ATORVASTATIN 40 MG TAB PO SCH (07:37)
[2018-05-19] MEDS: KETOCONAZOLE 2% CR 15 GM TUBE EXT SCH ×2 (07:38→21:26)
[2018-05-19] MEDS: DABIGATRAN ETEXILATE 75 MG CAP PO SCH (07:38)
[2018-05-19] MEDS: CHLORHEXIDINE GLUCONATE 0.12% 480 ML MT SCH (07:38)
[2018-05-19 09:53] LABS: Basophils # (auto) 0.02 K/uL (0-0.2); Basophils % (auto) 0.3 %; Eosinophils # (auto) 0.01 K/uL (0-0.5); Eosinophils % (auto) 0.2 %; Hematocrit (blood only) 34.6 % (37-47); Immature Granulocytes # (auto) 0.06 K/uL (0.00-0.02); Immature Granulocytes % (auto) 0.9 %; Lymphocytes # (auto) 0.45 K/uL (1.2-3.4); Lymphocytes % (auto) 6.9 %; Mean Corpuscular Hgb Conc 28.9 g/dL (32-36); Mean Corpuscular Volume 95.8 fL (80-100); Mean Platelet Volume 10.3 fL (7.4-10.4); Monocytes # (auto) 0.21 K/uL (0.11-0.59); Monocytes % (auto) 3.2 %; Neutrophils # (auto) 5.75 K/uL (1.4-6.5); Neutrophils % (auto) 88.5 %; Platelet Count 201 K/uL (130-400); RDW Coefficient of Variation 15.2 % (11.5-14.5); RDW Standard Deviation 53.3 fL (36.4-46.3); Red Blood Count 3.61 M/uL (4.2-5.4)
[2018-05-19 10:01] LABS: Calcium 8.4 mg/dl (8.5-10.1); Creatinine Clr Calc Pharmacy 56.4 ml/min; Est GFR (African American) 59.7; Est GFR (Non-African American) 51.5; Potassium 3.4 mmol/L (3.5-5.1)
[2018-05-19] MEDS: SODIUM CHLORIDE 0.9% 1000ML 1,000 ML IV SCH ×2 (10:03→23:15)
[2018-05-19] MEDS: PANTOprazole 40 MG in SYRINGE 0 ML IV SCH (10:03)
[2018-05-19] MEDS: fentaNYL DRIP 1,250 MCG/250 ML BAG IV SCH (12:11)
--- NOTE | 2018-05-19 19:20 | Critical Care Progress Note ---
Date of Service May 19, 2018 Assessment & Plan (1) Acute on chronic respiratory failure with hypoxia and hypercapnia: Impression: 1. Acute on chronic hypercapnic and hypoxic respiratory failure secondary to acute aspiration in addition to severe COPD. 2. Aspiration of biliary material suctioned with a bronchoscopy. Affecting the left lower lobe. 3. History of anxiety, the patient treated with multiple psychedelic medications affecting her respiratory drive as well as her cough reflex. 4. Morbid obesity with obstructive sleep apnea, could not tolerate BiPAP. 5. Atrial fibrillation. Rate controlled. 6. Diastolic heart failure. 7. History of CVA also contributing to her recurrent aspiration. Plan: 1. Vent management. 2. Daily spontaneous breathing trial. 3. Endobronchial lesion was noted at the takeoff of the lingular bronchus, noted also on the CAT scan of the chest, etiology is unknown. 4. The patient BUN/creatinine stable, no evidence of contrast-induced nephropathy. 5. Continue current antibiotics. 6. Continue diltiazem for blood pressure control. Her systolic pressure remains in the range of 140, but it is improving. 7. Expect prolonged course given the biliary aspiration. 8. DuoNeb every 4 hours. 9. Decrease trazodone 100 mg. 10. Continue Remeron, patient has been off Effexor. Her antidepressants, affecting her respiratory drive as well as her cough drive. 11. Glucose control per pharmacy, started on insulin drip, appreciated. 12. Solu-Medrol 40 mg IV every 12. 13. Fentanyl and Versed drip for sedation. 14. Continue with tube feeding. 15. Echocardiogram showed elevated PA pressures, and preserved ejection fraction. 16. Long discussion took place with the family over half an hour, with the nursing staff as well, all the questions been answered, the family would like to continue with CODE STATUS of full code at the moment until they make different decision, they are leaning towards DNR, I informed them that they are still in the first few days of the intubation process, and will take a few more days as well. At 7-10 days after intubation, we will start talking about tracheostomy, my understanding the family stated that the patient does not want to be placed on a machine. I notified him about the presence of abnormal mucosa and possible growth at the takeoff of the lingula, and we decided that no further treatment or biopsy would be attempted as the patient is not a candidate for any malignancy treatment should she have a confirmed diagnosis of lung cancer. All family are in agreement, they are pleased with the progress. 17. Appreciate pharmacy adjustment of the dabigatran dose. 18. Continue with IV Protonix. 19. Discussed with the staff on rounds and details. critical care time spent with the patient was 80 minutes . Subjective The patient remains vented and sedated, she tolerated CPAP trial with PSP of 15 today, however her PCO2 remains in the range of 70s. Review of systems not obtainable from this patient given her current condition. Physical Exam 2 Vital Signs (Past 24 Hours): Last Vital Signs Temp 36.8 C 05/19/18 16:00 Pulse 88 05/19/18 18:01 Resp 13 05/19/18 18:00 BP 120/53 L 05/19/18 18:01 Pulse Ox 100 05/19/18 18:01 Physical Exam: Vital signs remained stable, S1-S2 regular rate and rhythm, does not require any pressors, lungs with distant breath sounds, abdomen is soft and benign but obese, edema in the periphery noted. Neurologically difficult to assess. No oral lesions. Pupils are equal reacting. Results & Data Laboratory Results Her labs also were reviewed personally, ABG seems to be acceptable and the patient remains with acute on chronic respiratory acidosis. The rest of her labs are unchanged. Diagnostic Findings No new imaging.
--- NOTE | 2018-05-19 20:45 | Progress Note ---
Date of Service May 19, 2018 8:40 pm Received page from patient's ICU nurse that she is written for Pradaxa for her A. fib. However, it cannot be crushed and patient is intubated. Brief chart review: Patient is presently intubated for acute on chronic hypercapnic and hypoxic respiratory failure secondary to acute aspiration. Concurrent severe COPD, A. fib, and morbid obesity. Plan: - Discussed case with Dr. Fernandez. Will stop Pradaxa and switch to heparin 5000 units subq 3 times daily. - We will defer the need heparin IV drip to the director client services's discretion. Bandar Fowler MD PGY2 overnight call Physical Exam 2 Vital Signs (Past 24 Hours): Last Vital Signs Temp 36.8 C 05/19/18 20:00 Pulse 82 05/19/18 20:10 Resp 24 05/19/18 20:10 BP 120/53 L 05/19/18 18:01 Pulse Ox 98 05/19/18 20:10
[2018-05-19] MEDS ORDERED: DABIGATRAN ETEXILATE 75 MG CAP PO SCH (21:00)
[2018-05-19] MEDS: PRAMIPEXOLE DIHYDROCHLO 0.5 MG TAB PO SCH (21:23)
[2018-05-19] MEDS: MIRTAZAPINE TAB 15 MG TAB PO SCH (21:23)
[2018-05-19] MEDS: HEPARIN SOD 5,000 UNIT/0.5 ML VIAL SQ SCH (21:23)
[2018-05-19] MEDS: TRAZODONE HCL 100 MG TAB PO SCH (21:23)
--- NOTE | 2018-05-19 21:35 | Hospitalist Progress Note ---
Date of Service May 19, 2018 Assessment & Plan (1) Acute on chronic respiratory failure with hypoxia and hypercapnia: Patient appears to be in this state as described in the header. This was present on admission Patient was intubated after aspirating on 05/16/18. During bronch, large amount of bile was removed from lung. This likely caused lung injury. Also during bronch, there appears to be a mass in her lung. CT scan confirms this mass. Flame Degreaser states he will discuss with family. Will hold biopsy as patient is on anticoag. Patient is not ready to be extubated. (05/19) Appreciate recommendations by sleeve baster Family meeting is scheduled for 2 PM later today. Discussion will be made on possiblity of trach if patient does not improve. (2) Hypoxia: 2) Hemoptysis - may be due to cough, irritation and Pradaxa use. Pradaxa was resumed on 05/15. No signs of hemoptysis. 3) HTN, HLD - cont Atorvastatin, Diltiazem, Lisinopril. BP has been mildly elevated. Will continue to monitor. 4) DM - placed on a SS. Monitoring her blood sugars. 5) AF - sinus on admission - Pradaxa temporarily held as above, has since been resumed. - cont Diltiazem 6) LOGAN - currently intubated Full code Pradaxa prophylaxis Subjective Patient remains intubated and sedated. Unable to obtain ROS: as patient remains intubated. Physical Exam 2 Vital Signs (Past 24 Hours): Last Vital Signs Temp 36.8 C 05/19/18 20:00 Pulse 82 05/19/18 20:10 Resp 24 05/19/18 20:10 BP 120/53 L 05/19/18 18:01 Pulse Ox 98 05/19/18 20:10 Physical Exam: General: Overweight, elderly F - is intubated and sedated ENT: No erythema or exudates, no thrush - small sore on roof of mouth - R, post Eyes: KAMRAN, EOMI Head and neck: Normocephalic, atruamatic, neck is supple. Chest/heart: Nontender, S1,2, RRR, no murmurs, no gallops Lungs: distant breath sounds bilaterally Abdomen: Nontender, nondistended, BS+ Neuro: Patient is intubated and sedated. Musculoskeletal: No joint inflammation, muscle tenderness, FROM Skin: No acute rashes or ulcers Extremities: No clubbing, cyanosis, edema
[2018-05-20] MEDS: PEPTAMEN INTENSE VHP 1.0 CAL 1,000 ML BAG OG SCH (01:46)
[2018-05-20] MEDS: ALBUT/IPRATROP 3MG/0.5MG NEB 3 ML VIAL NEB SCH ×6 (03:41→23:17)
[2018-05-20] MEDS: INSULIN ASPART 100 UNITS/ML 3 ML PEN SC SCH ×6 (04:15→23:58)
[2018-05-20] MEDS: methylPREDNISolone 40 MG in SYRINGE 0 ML IV SCH ×4 (04:15→22:05)
[2018-05-20 05:10] LABS: Hematocrit (blood only) 34.7 % (37-47); Hemoglobin 9.9 g/dL (12.0-16.0); Mean Corpuscular Hgb Conc 28.5 g/dL (32-36); Mean Corpuscular Volume 96.9 fL (80-100); Mean Platelet Volume 10.7 fL (7.4-10.4); Nucleated RBC # (auto) 0.02 K/uL (0-0); Nucleated RBC % (auto) 0.3 %; Platelet Count 211 K/uL (130-400); RDW Coefficient of Variation 15.2 % (11.5-14.5); RDW Standard Deviation 53.7 fL (36.4-46.3); Red Blood Count 3.58 M/uL (4.2-5.4); White Blood Count 6.99 K/uL (4.8-10.8)
[2018-05-20 05:38] LABS: BUN Creatinine Ratio 50.4 (10-20); Calcium 8.4 mg/dl (8.5-10.1); Creatinine Clr Calc Pharmacy 64.7 ml/min; Est GFR (Non-African American) 61.3
[2018-05-20] MEDS: fentaNYL DRIP 1,250 MCG/250 ML BAG IV SCH (06:24)
[2018-05-20] MEDS: HEPARIN SOD 5,000 UNIT/0.5 ML VIAL SQ SCH (06:24)
[2018-05-20] MEDS: PIPERACILLIN/TAZOBACTAM 4.5 GM in DEXTROSE 5% 100 ML IV SCH ×3 (08:06→23:58)
[2018-05-20] MEDS: BusPIRone 15 MG TAB PO SCH ×2 (08:08→22:02)
[2018-05-20] MEDS: AMIODARONE 200 MG TAB PO SCH (08:08)
[2018-05-20] MEDS: CHLORHEXIDINE GLUCONATE 0.12% 480 ML MT SCH (08:09)
[2018-05-20] MEDS: KETOCONAZOLE 2% CR 15 GM TUBE EXT SCH ×2 (08:09→22:03)
[2018-05-20] MEDS: FERROUS SULFATE 325 MG TAB PO SCH ×2 (08:09→22:03)
[2018-05-20] MEDS: ATORVASTATIN 40 MG TAB PO SCH (08:09)
[2018-05-20] MEDS: FUROSEMIDE 40 MG TAB PO SCH (08:09)
[2018-05-20] MEDS: INSULIN GLARGINE SOLOSTAR 100 UNITS/ML 3 ML PEN SC SCH ×2 (08:15→20:52)
[2018-05-20] MEDS: MIDAZOLAM HCL 125 MG/250 ML BAG IV SCH (08:26)
[2018-05-20] MEDS ORDERED: LACTULOSE SYRUP 20 GM/30 ML UDC PO PRN (08:57)
[2018-05-20] MEDS: PANTOprazole 40 MG in SYRINGE 0 ML IV SCH (09:59)
[2018-05-20] MEDS ORDERED: Heparin IV Standard *NO* Bolus ONE (10:14)
--- NOTE | 2018-05-20 10:26 | Hospitalist Progress Note ---
Date of Service May 20, 2018 Assessment & Plan (1) Acute on chronic respiratory failure with hypoxia and hypercapnia: Patient appears to be in this state as described in the header. This was present on admission Patient was intubated after aspirating on 05/16/18. During bronch, large amount of bile was removed from lung. This likely caused lung injury. Also during bronch, there appears to be a mass in her lung. CT scan confirms this mass. Dr. Dejesus states he will discuss with family. Will hold biopsy as patient is on anticoag. Patient is not ready to be extubated. (05/20) Appreciate recommendations by assisted living associate Family meeting was held. Family undecided if they would like patient to be trached and Peg. Palaeontologist will continue discussing with family throughout hospital stay (2) Hypoxia: As noted above, now intubated. (3) Acute exacerbation of chronic obstructive pulmonary disease (COPD): Patient initially admitted for this problem. Patient became hypercapnic and aspirated while on Bipap. Patient then transferred to ICU. Management as noted above. Present on Admission?: Yes (4) Hyperglycemia due to type 2 diabetes mellitus: placed on a SS. Monitoring her blood sugars. (5) Atrial fibrillation: sinus on admission cont Diltiazem Pradaxa was held initally for 1 day due to hemoptysis. This was then restarted. BUt held overnight as unable to crush med. Started this AM heparin (05/20) (6) Hypertension: HTN, HLD - cont Atorvastatin, Diltiazem, Lisinopril. BP has been mildly elevated. Will continue to monitor. (7) Hyperlipidemia LDL goal <70: continue on atorvastatin. (8) Obstructive sleep apnea: LOGAN - currently intubated Full code On heparin for DVT prophylaxis. (9) Hemoptysis: On admission, however, this has not been an issue since. Currently patient is monitored. Patient does have a lung mass, which may have contributed to this problem. (10) DVT prophylaxis: On heparin IV as not able to crush pradaxa due to patient being intubated. Subjective Patient remains intubated and sedated. Unable to obtain ROS: as patient remains intubated. Physical Exam 2 Vital Signs (Past 24 Hours): Last Vital Signs Temp 37.1 C 05/20/18 08:00 Pulse 93 H 05/20/18 09:15 Resp 16 05/20/18 08:25 BP 141/55 H 05/20/18 09:01 Pulse Ox 93 05/20/18 09:15 Physical Exam: General: Overweight, elderly F - is intubated and sedated Eyes: KAMRAN, EOMI Head and neck: Normocephalic, atruamatic, neck is supple. Chest/heart: Nontender, S1,2, RRR, no murmurs, no gallops Lungs: distant breath sounds bilaterally Abdomen: Nontender, nondistended, BS+ Neuro: Patient is intubated and sedated. Musculoskeletal: No joint inflammation, muscle tenderness, FROM Skin: No acute rashes or ulcers Extremities: No clubbing, cyanosis, edema _ (1) Hyperglycemia due to type 2 diabetes mellitus Diabetes mellitus half-way insulin use: with half-way use Qualified Code(s) : E11.65 - Type 2 diabetes mellitus with hyperglycemia; Z79.4 - terminologist ( current) use of insulin
[2018-05-20] MEDS: SODIUM CHLORIDE 0.9% 1000ML 1,000 ML IV SCH (11:18)
[2018-05-20 11:29] LABS: iSTAT Arterial Blood Gas HCO3 42 meg/L (19-24); iSTAT Carbon Dioxide > 40 mEq/l (24-31); iSTAT FiO2 35 %
[2018-05-20 11:35] LABS: Albumin Level 2.1 gm/dl (3.4-5.0); Bilirubin Direct 0.1 mg/dl (0-0.2); Bilirubin,Total 0.2 mg/dl (0.2-1)
--- NOTE | 2018-05-20 12:25 | Critical Care Progress Note ---
Date of Service May 20, 2018 Assessment & Plan (1) Acute on chronic respiratory failure with hypoxia and hypercapnia: Impression: 1. Acute on chronic hypercapnic and hypoxic respiratory failure secondary to acute aspiration in addition to severe COPD. 2. Aspiration of biliary material suctioned with a bronchoscopy. Affecting the left lower lobe. 3. History of anxiety, the patient treated with multiple psychedelic medications affecting her respiratory drive as well as her cough reflex. 4. Morbid obesity with obstructive sleep apnea, could not tolerate BiPAP. 5. Atrial fibrillation. Rate controlled. 6. Diastolic heart failure. 7. History of CVA also contributing to her recurrent aspiration. Plan: 1. Vent management. 2. Daily spontaneous breathing trial. Enteropathy spontaneous breathing trial if the PaCO2 on the monitor is reaching 100. 3. Start the patient on lactulose. 4. I will start the patient on diuresis with IV formal Lasix. 5. Continue current antibiotics. 6. Continue diltiazem for blood pressure control. Her systolic pressure remains in the range of 140, but it is improving. 7. Daily labs. 8. DuoNeb every 4 hours. 9. Discontinue trazodone. 10. Decrease BuSpar to twice daily. 11. Glucose control per pharmacy, started on insulin drip, appreciated. 12. Solu-Medrol 40 mg IV every 12. 13. Hold fentanyl and Versed while the patient is on CPAP trial. 14. Continue with tube feeding. 15. Echocardiogram showed elevated PA pressures, and preserved ejection fraction. 16. Discussed in details with the family yesterday, will keep updating them about her condition, the patient remains a full code. 17. Start the patient on Eliquis 5 mg per G-tube twice daily, patient used to be on Pradaxa, but cannot be crushed through the OG tube. 18. Continue with IV Protonix. 19. I will add Diamox for the next 24 hours. 20. Discussed with the staff on rounds and details. critical care time spent with the patient was 80 minutes . Subjective The patient was taken off the sedation, was able to open her eyes and answer with yes and no, she is still lethargic, she is vent dependent, review of system was not obtainable due to the patient condition. Physical Exam 2 Vital Signs (Past 24 Hours): Last Vital Signs Temp 37.1 C 05/20/18 08:00 Pulse 119 H 05/20/18 12:01 Resp 20 05/20/18 11:03 BP 156/63 H 05/20/18 12:01 Pulse Ox 86 L 05/20/18 12:01 Physical Exam: Vital signs remained stable, blood pressure is 156/63, heart rate is 110 in A. fib, O2 sat is 92%, PCO2 is variable. No stridor, S1-S2 irregularly irregular, bilateral rhonchi mainly at the bases, abdomen is obese but benign, edema in the periphery. Neurologically difficult to assess. Results & Data Laboratory Results Remain with acute on chronic respiratory acidosis, the rest of her labs appear to be acceptable. Diagnostic Findings No new imaging.
[2018-05-20] MEDS: FUROSEMIDE 40 MG in SYRINGE 0 ML IV SCH ×2 (13:38→22:05)
--- NOTE | 2018-05-20 15:14 | Pharmacy Report ---
Pharmacy Glycemic Short Note 2 - Date of Service May 20, 2018 - Glycemic Short BSG Results (Last 24 hours): 05/19/18 05/19/18 05/19/18 15:51 19:58 23:42 Glucose POC Glucose 186 H 132 H 189 H 05/20/18 05/20/18 05/20/18 04:12 04:46 08:12 Glucose 180 H POC Glucose 202 H 183 H 05/20/18 11:13 Glucose POC Glucose 192 H Outpatient Anti-diabetic Regimen: * Lantus 30 units qAM, Lantus 33 units qPM, Lispro SSI * A1c = 7.2 % 04/25/18 The patient is currently receiving: * Basal insulin: Lantus 35-45 units every 12 hours * Correctional Insulin: Novolog Correction per scale ACHS Goal Range: Low 110 mg/dL - High 140 mg/dL Correction Factor: 12 mg/dL/unit * Prandial insulin: Per carb ratio of 1 unit per 3 grams CHO consumed Risk Factors for Insulin Resistance: * Steroids: solu medrol 40 mg IV q6 * Diet: Tube Feeds * Mechanical ventilation - Assessment & Plan Assessment & Plan: 05/20/18 * Patient remains intubated on fentanyl, versed, and solu-medrol 40 mg q6 * Patient received total of 120 unit of sq insulin yesterday, and I had tighten CR slightly too as BSGs were above goal * Tube feeds at goal rate of 60 ml/hr- cover with carb ratio * Will increase lantus at this time 05/18/18 * Patient remains intubated, norepinephrine titrated off, solu-medrol 40 mg q6 * Scr improving from yesterday * Patient received total of 98 unit of sq insulin yesterday * Tube feeds to be increased 10 mL every shift to goal rate of 60 ml/hr- cover with carb ratio * BSGs acceptable- will continue current lantus and novolog scales 05/17/18 * Patient transferred to ICU overnight, intubated, on norepinephrine, on solu medrol 40 mg q6H * Received a total of 131 units of SQ insulin yesterday. * Fasting BSG 217- planned to start insulin drip but lunch BSGS 162/169- will hold off for now * Patient to begin trickle feeds- 10 ml/hr- will provide 0.78 g of carb/hour * Would have low tolerance for starting insulin drip if BSGs elevated with addition of tube feeds 05/16/18 * 78 yr old T2DM female admitted for hypoxia, COPD exacerbation. Patient was started on high dose IV steroids; solu medrol 40 mg IV q6h. * Lucie is maintained on 63 units of Lantus per day plus Lispro per sliding scale. She received a total of 122 units of SQ insulin yesterday. * Fasting BSG of 209 mg/dL is above goal, therefore I will increase basal insulin. * Post prandial BSGs are also above goal. Will tighten Novolog parameters while on IV steroids. PLAN FOR INPATIENT GLYCEMIC CONTROL: * Basal insulin -increase * Lantus 40- 50units SQ BID * 40 units for BSG 110 mg/dL or less * 45 units for BSG 111-180 mg/dL * 50 units for BSG > 180 * Bolus insulin - * NovoLog per scale q4H * Goal Range: Low 110 mg/dL - High 140 mg/dL * Correction Factor: 12 mg/dL/unit * tightened 05/19 -- Nutritional / Prandial insulin per carb ratio of 1 unit per 3 grams CHO consumed * Please note that the plan above was derived based on current level of insulin resistance and hospital stress. These recommendations are appropriate for inpatient admission only. Plan of care upon discharge will need to be reassessed to avoid potential outpatient hypo/hyperglycemia.
[2018-05-20] MEDS: MIRTAZAPINE TAB 15 MG TAB PO SCH (22:02)
[2018-05-20] MEDS: PRAMIPEXOLE DIHYDROCHLO 0.5 MG TAB PO SCH (22:02)
[2018-05-20] MEDS: APIXABAN 5 MG TABLET PO SCH (22:04)
[2018-05-20] MEDS: TRAZODONE HCL 100 MG TAB PO SCH (22:05)
[2018-05-20] MEDS: acetaZOLAMIDE 500 MG in SYRINGE 0 ML IV SCH (22:05)
[2018-05-21] MEDS: ALBUT/IPRATROP 3MG/0.5MG NEB 3 ML VIAL NEB SCH ×6 (03:15→22:55)
[2018-05-21] MEDS: INSULIN ASPART 100 UNITS/ML 3 ML PEN SC SCH ×5 (04:42→20:55)
[2018-05-21] MEDS: methylPREDNISolone 40 MG in SYRINGE 0 ML IV SCH ×4 (04:42→21:23)
[2018-05-21 05:07] LABS: BUN Creatinine Ratio 54.7 (10-20); Calcium 8.6 mg/dl (8.5-10.1); Creatinine Clr Calc Pharmacy 63.3 ml/min; Est GFR (African American) 69.2; Est GFR (Non-African American) 59.7; Potassium 3.5 mmol/L (3.5-5.1)
[2018-05-21] MEDS: acetaZOLAMIDE 500 MG in SYRINGE 0 ML IV SCH (06:28)
[2018-05-21] MEDS: FUROSEMIDE 40 MG in SYRINGE 0 ML IV SCH ×3 (06:28→21:23)
[2018-05-21] MEDS: PIPERACILLIN/TAZOBACTAM 4.5 GM in DEXTROSE 5% 100 ML IV SCH ×2 (07:49→16:08)
[2018-05-21] MEDS: APIXABAN 5 MG TABLET PO SCH ×2 (07:50→21:21)
[2018-05-21] MEDS: BusPIRone 15 MG TAB PO SCH ×2 (07:50→21:20)
[2018-05-21] MEDS: AMIODARONE 200 MG TAB PO SCH (07:50)
[2018-05-21] MEDS: FERROUS SULFATE 325 MG TAB PO SCH ×2 (07:51→21:21)
[2018-05-21] MEDS: CHLORHEXIDINE GLUCONATE 0.12% 480 ML MT SCH (07:51)
[2018-05-21] MEDS: ATORVASTATIN 40 MG TAB PO SCH (07:51)
[2018-05-21] MEDS: KETOCONAZOLE 2% CR 15 GM TUBE EXT SCH ×2 (07:52→21:37)
[2018-05-21] MEDS: INSULIN GLARGINE SOLOSTAR 100 UNITS/ML 3 ML PEN SC SCH (07:54)
[2018-05-21] MEDS: fentaNYL DRIP 1,250 MCG/250 ML BAG IV SCH (09:04)
--- NOTE | 2018-05-21 09:46 | Pharmacy Report ---
Glycemic Control Progress Note - Date of Service May 21, 2018 - Scope Glycemic Pharmacist consulted for glycemic control to write orders per [facility] inpatient glycemic control protocol. - Objective Accuchecks BSG(last 24 hours):: 05/20/18 05/20/18 05/20/18 11:13 16:26 20:45 Glucose POC Glucose 192 H 181 H 109 H 05/20/18 05/21/18 05/21/18 23:54 04:23 04:26 Glucose 100 H POC Glucose 104 H 104 H 05/21/18 07:54 Glucose POC Glucose 107 H - Recent Pertinent Medications The patient is currently receiving: * Basal insulin: Lantus 40-50 units every 12 hours, based on BSG * Correctional Insulin: Novolog Correction per scale ACHS Goal Range: Low 120 mg/dL - High 160 mg/dL Correction Factor: 12 mg/dL/unit * Prandial insulin: Per carb ratio of 1 unit per 3 grams CHO consumed - Outpatient Anti-Diabetic Meds Lantus 30 units qAM, 33 units qPM Insulin lispro - Assessment & Plan ASSESSMENT: * Stressors * Steroids: continuing on methylprednisolone 40 mg IV q6h * Infection: aspiration PNA on Zosyn * Pressors: norepinephrine * IVF: midazolam gtt (mixed in dextrose) * Diet: continuous TF, peptamen VHP (low CHO formulation) * Stressors stable * Patient received 130 units of insulin on 05/20/18 and BSG's ranged 104-202 mg/dL * I am concerned that patient's regimen is weighted too heavily towards basal insulin. On 05/20/18, ~70% of insulin was basal. Usual split basal/bolus is about 50/50, however, for a patient on high-dose steroids, BSG's are usually better managed with a higher proportion of *bolus* insulin. Therefore if steroids are discontinued or tapered, this patient may be at risk for significant hypoglycemia on current regimen * Will significantly decrease Lantus dosages * Will tighten CHO ratio and correction factor to help compensate for decreased basal insulin. Will also decrease upper end of goal range to correct hyperglycemia at lower BSG's. Will maintain lower end of goal range to prevent hypoglycemia now that CHO ratio is very tight * This patient's regimen will likely require significant adjustments if/when steroids are tapered or discontinued PLAN FOR INPATIENT GLYCEMIC CONTROL: * Lantus BID based on BSG * 30 units for BSG less than 110 mg/dL * 35 units for BSG 110-180 mg/dL * 40 units for BSG greater than 180 mg/dL * Novolog q4h based on BSG * Goal range: 120-150 mg/dL * Correction factor: 10 mg/dL/unit * Carb ratio: 2.5 g CHO/unit * Please note that the plan above was derived based on current level of insulin resistance and hospital stress. These recommendations are appropriate for inpatient admission only. Plan of care upon discharge will need to be reassessed to avoid potential outpatient hypo/hyperglycemia. Thank you.
[2018-05-21] MEDS: PANTOprazole 40 MG in SYRINGE 0 ML IV SCH (10:44)
--- NOTE | 2018-05-21 12:49 | Critical Care Progress Note ---
Date of Service May 21, 2018 Assessment & Plan (1) Acute on chronic respiratory failure with hypoxia and hypercapnia: Impression: 1. Acute on chronic hypercapnic and hypoxic respiratory failure secondary to acute aspiration in addition to severe COPD. 2. Aspiration of biliary material suctioned with a bronchoscopy. Affecting the left lower lobe. 3. History of anxiety, the patient treated with multiple psychedelic medications affecting her respiratory drive as well as her cough reflex. 4. Morbid obesity with obstructive sleep apnea, could not tolerate BiPAP. 5. Atrial fibrillation. Rate controlled. 6. Diastolic heart failure. 7. History of CVA also contributing to her recurrent aspiration. Plan: 1. CPAP trial with PSVT of 10 and CPAP of 5. Decrease FiO2 to 30%. 2. ABG in half an hour. 3. We will extubate the patient if the pH above than 7.25. 4. Continue diuresis and Diamox. 5. Continue current antibiotics. 6. Continue diltiazem. 7. Daily labs. 8. DuoNeb every 4 hours. 9. I have decreased most of her psych medications significantly. It is altering her cough drive. 10. Decrease BuSpar to twice daily. 11. Glucose control per pharmacy, started on insulin drip, appreciated. 12. Solu-Medrol 40 mg IV every 12. 13. If the patient is extubated, likely she will be extubated to a BiPAP machine. 14. Hold tube feeding in preparation for extubation. 15. She will need a significant rehabilitation. 16. Discussed in details with the family yesterday, will keep updating them about her condition, the patient remains a full code. 17. Continue Eliquis via the G-tube. 18. Continue with IV Protonix. 19. Discussed with the family at the bedside. critical care time spent with the patient was 80 minutes . Subjective The patient open her eyes follow commands, still feeling drowsy, tolerating CPAP trial, with PSV of 10 and CPAP of 5 currently. Review of system is not obtainable. Physical Exam 2 Vital Signs (Past 24 Hours): Last Vital Signs Temp 36.7 C 05/21/18 12:00 Pulse 98 H 05/21/18 12:01 Resp 23 05/21/18 11:52 BP 139/59 L 05/21/18 12:01 Pulse Ox 95 05/21/18 12:01 Physical Exam: Vital signs are stable, blood pressure is slightly elevated, S1 -S2 regular rate and rhythm, distant rhonchi bilaterally, abdomen is benign, edema in the periphery. Results & Data Laboratory Results Her labs has been reviewed, elevated CO2 was noted, ABG still pending. BUN and creatinine also elevated due to steroid effect. Diagnostic Findings No new imaging.
[2018-05-21 13:27] LABS: iSTAT Arterial Blood Gas HCO3 47 meg/L (19-24); iSTAT Carbon Dioxide > 40 mEq/l (24-31); iSTAT FiO2 30 %
--- NOTE | 2018-05-21 15:34 | Palliative Care Consultation ---
Date of Consultation May 21, 2018 Assessment & Plan (1) Palliative care encounter: -This is a 78 year old female who presented to the ED from home with SOB and hemoptysis that was occurring over the past 3-4 days. The patient was recently admitted in April 2018 with acute on chronic respiratory failure with hypoxia and hypercapnia. Additional PMH includes HTN, HLD, DM2, LOGAN, and obesity. The patient aspirated and was intubated from 05/16/18-05/21/18. During this timeframe, the patient underwent a bronch for which a mass was discovered in her lung. A lengthy family meeting (8 siblings, 2 POA's) was held with Dr. Dejesus and additional IDT members over the weekend and based on her toleration of CPAP trials and partially compensation of her respiratory acidosis noted on her ABG (pH 7.34 pCO2 86, HCO3 47), was extubated today to BiPap, now on 4LNC. -I met with both POA's, Ragini, and Madiha in CR 12 outside of the ICU as they requested to talk outside of the patient's room. -We discussed at length CODE STATUS, re-intubation, CPR and what each looks like and the benefit/outcome challenges of both aggressive and conservative measures. Based on the outcome of the conversation, both POA's agreed to transition her to DO NOT RESUSCITATE should she decline. I placed the DNR order in the computer and discussed with both the Hospitalist and Business Education Professor. -The daughters are comfortable escalating care with the extent of BiPap's maximum oxygen delivery of 100%, but no endotrachial intubation, CPR, artificial nutrition, or life-prolonging antibiotics. -We discussed that these next 24-48 hours will be a good indicator of her body' s toleration of extubation and if she tolerates, can begin thinking about discharge planning options. -Both POA's were clear that if she would improve to the point where discharge planning can be entertained, they would like her to return home with HOSPICE support. -They stated that the rest of the family has differing opinions on what their mother's end of life 'should' look like, and together they decided to make decisions as her next of kin and legal POA's. -Currently, they would like to continue with current treatment, but should she decline, act conservatively with comfort as their main goal. -A WEIST form was completed at the bedside and signed by Ragini, one of the POA' s whom lives with the patient. The original was placed on the chart. -Palliative Performance Scale: 30% (2) Acute exacerbation of chronic obstructive pulmonary disease (COPD): -Managed by emr analyst/hospitalist -Patient with COPD on 4LNC at baseline prior to admission. -Patient presented with hemoptysis and SOB for 3-4 days. -recurrent aspiration d/t previous CVA. -During a bronch, with increased bile, a lung mass was noted. At this time no biopsy to be performed. -Most recent ABG indicating partially compensated respiratory acidosis (pH 7.34 PCO2 86, HCO3 47) -Patient being treated with Methypredisolone 40 mg IV Q6 and Zosyn 4.5 G IV Q8 -Pt also has nebulizer tx ordered. (3) Atrial fibrillation: -Managed by ICU and Hospitalists -Pt was on Pradaxa for Afib - this was stopped d/t hemoptysis, now restarted, but on Eloquis. (4) Cerebrovascular disease: -Previous CVA, no acute changes -Due to previous CVA, recurrent aspirations -Was eval by ST in the past - based on how patient improves, would do a re-eval. Supervising Physician Co-Signing Physician Notes Chart reviewed, patient seen and examined. 2 daughters and one niece at bedside. Patient responded only briefly by opening her eyes during visit. PE: Appears comfortable on O2 via oxygen mask Respirations: Mildly labored CV: Regular rate Extremities: Positive edema Neuro: Did not respond to voice or touch on exam. Agree with above note, assessment and plan as per SHAE Groves P -will continue to follow and provide support to family with medical decision making. History of Present Illness Reason for Consultation: GOALS OF CARE Requesting Physician: Dr. Dejesus Attending Physician: Keshawn Barroso DO History of Present Illness This is a 78 year old female who presented to the ED from home with SOB and hemoptysis that was occurring over the past 3-4 days. The patient was recently admitted in April 2018 with acute on chronic respiratory failure with hypoxia and hypercapnia. Additional PMH includes HTN, HLD, DM2, LOGAN, and obesity. The patient aspirated and was intubated from 05/16/18-05/21/18. During this timeframe, the patient underwent a bronch for which a mass was discovered in her lung. A lengthy family meeting (8 siblings, 2 POA's) was held with Dr. Dejesus and additional IDT members over the weekend and based on her toleration of CPAP trials and ABG compensation, was extubated today to BiPap. Palliative Care was consulted to discuss CODE STATUS and GOALS OF CARE. Please see Assessment and Plan for further details. Upon entering the room, the patient was able to open her eyes and started to try and talk with the BiPap mask on but unable to follow commands. The patient was hemodynamically stable and on BiPap 0.35. Pt lethargic and not following simple commands, but was able to cough. Daughters, Ragini and Madiha, both POA' s met with me in CR 12 to discuss GOALS OF CARE and CODE STATUS. Please see A & P for further details. Allergies Allergy/AdvReac Type Severity Reaction Status Date / Time mushroom Allergy Unknown Unknown Verified 05/15/18 02:02 theophylline Allergy Unknown Unknown Verified 05/15/18 02:02 codeine AdvReac Severe HYPERVENTIL Verified 05/15/18 02:02 ATES morphine AdvReac Severe Causes Afib Verified 05/15/18 02:02 Home Medications Home Medications Medication Instructions Recorded Confirmed Type amiodarone [Pacerone] 200 mg PO DAILY 04/09/18 05/15/18 History atorvastatin [Lipitor] 80 mg PO DAILY 04/09/18 05/15/18 History budesonide [Pulmicort Flexhaler] 2 inh INHALATION BID 04/09/18 05/15/18 History buspirone 15 mg PO TID 04/09/18 05/15/18 History dabigatran etexilate [Pradaxa] 150 mg PO BID 04/09/18 05/15/18 History diclofenac sodium [Voltaren] 4 g TOPICAL QID PRN MDD 16 gm 04/09/18 05/15/18 History daily to any one joint diltiazem HCl [Cardizem CD] 180 mg PO BID 04/09/18 05/15/18 History ferrous sulfate 325 mg PO BID 04/09/18 05/15/18 History furosemide [Lasix] 40 mg PO DAILY 04/09/18 05/15/18 History insulin glargine [Lantus Solostar 30 units SUBCUT QAM 04/09/18 05/15/18 History U-100 Insulin] insulin lispro [Humalog KwikPen 0 unit SUBCUT BID 04/09/18 05/15/18 History Insulin] ipratropium bromide 1 unit INHALATION Q4 PRN 04/09/18 05/15/18 History ketoconazole 1 applic TOPICAL BID 04/09/18 05/15/18 History lisinopril [Zestril] 5 mg PO DAILY 04/09/18 05/15/18 History mirtazapine 30 mg PO HS 04/09/18 05/15/18 History pantoprazole 40 mg PO DAILY 04/09/18 05/15/18 History pramipexole 1 mg PO HS 04/09/18 05/15/18 History trazodone 200 mg PO HS 04/09/18 05/15/18 History venlafaxine [Effexor XR] 75 mg PO DAILY 04/09/18 05/15/18 History venlafaxine [Effexor XR] 150 mg PO DAILY 04/09/18 05/15/18 History vitamin B complex 1 tab PO DAILY 04/09/18 05/15/18 History insulin glargine [Lantus Solostar 33 unit SUBCUT HS 05/15/18 05/15/18 History U-100 Insulin] ipratropium-albuterol 3 ml NEB Q4 PRN 05/15/18 05/15/18 History lorazepam 0.5 mg PO HS PRN 05/15/18 05/15/18 History Patient History Medical History Hypotension (Acute) COPD exacerbation (Acute 06/12/13) Anxiety (Acute) CVA (cerebral infarction) (Acute 04/24/14) Hypoxia (Acute) Family History Other Family history non-contributory Social History Current Living Situation: Family Other Information That Helps Us Care for You: No Feels Safe at Home: Yes Safety Concerns: Feels Safe At This Time Smoking Status: Former smoker Hx Alcohol Use: No Hx Substance Use: No Beliefs That Will Affect Care: None Communication Ability: Unable Review of Systems ROS limited d/t lethargy, but pt able to squeeze my fingers, but unable to comment on pain, SOB or further ROS. Physical Exam 2 Vital Signs (Past 24 Hours): Last Vital Signs Temp 36.7 C 05/21/18 12:00 Pulse 101 H 05/21/18 14:15 Resp 21 05/21/18 13:30 BP 147/71 H 05/21/18 14:01 Pulse Ox 94 05/21/18 14:15 Physical Exam: Patient lying in bed with BiPap mask on. Patient was just extubated 45 minutes prior. Patient O2 sat 94%. Patient trying to open her eyes and attempts squeezing of her hands and following simple commands, but is lethargic. Constitutional: + ill appearing, + morbidly obese, + disheveled and + edematous ENMT: external ear and nose normal, oropharynx normal Neck: trachea midline, no thyromegaly Respiratory: + cough; + not able to speak in complete sentence, no nasal flaring and no pursed lip breathing Auscultation: + rhonchi Cardiovascular: Heart Sounds: normal S1 and normal S2 Gastrointestinal (Abdomen): normal bowel sounds, soft, nontender, no hepatosplenomegaly Inspection/Auscultation: + abdomen distended and + abdominal edema (in LE and periphery) Skin: no rashes, warm and dry Psychiatric: unable to assess d/t lethargy Genitourinary: benedict in situ Time Spent Midlevel Total time spent 100 minutes with > 50% of that time spent reviewing the chart, assessing the patient, discussing GOALS OF CARE and CODE STATUS with the patient 's two daughters/POA's, along with completing a POLST form which was placed on the chart. Attending Additional 20 minutes spent at bedside in addition to above visit by SHAE Castillofor a total of 120 minutes discussing goals of care, and providing support to family.
--- NOTE | 2018-05-21 15:44 | Hospitalist Progress Note ---
Date of Service May 21, 2018 Assessment & Plan (1) Acute on chronic respiratory failure with hypoxia and hypercapnia: This was present on admission Patient was intubated after aspirating on 05/16/18. During bronch, large amount of bile was removed from lung. This likely caused lung injury. weaning trial and extubation on 05/21/18, titrated down to 4L NC by the afternoon continue in ICU overnight for close monitoring can use BiPAP at night, PRN telehealth nurse following, appreciate their assistance in management (2) Hypoxia: As noted above, extubated 05/21/18 breathing stable on 4LNC (3) Acute exacerbation of chronic obstructive pulmonary disease (COPD): Patient initially admitted for this problem. Patient became hypercapnic and aspirated while on Bipap. lungs with diminished sounds and rhonchi, mild wheezing continue steroids, nebulizers, Zosyn (4) Hyperglycemia due to type 2 diabetes mellitus: continue Lantus and SS elevated sugars due to steroids monitor for hypoglycemia (5) Acute on chronic diastolic (congestive) heart failure: utilizing Lasix IV, continues to diurese try to keep lungs dry after acute lung injury with aspiration follow I/O and daily weights (6) Atrial fibrillation: sinus on admission cont Diltiazem, Amiodarone Pradaxa changed to Eliquis so it could be given via NGT (7) Hypertension: HTN, HLD - cont Atorvastatin, Diltiazem, Lisinopril. BP has been mildly elevated. Will continue to monitor. (8) Hyperlipidemia LDL goal <70: continue on atorvastatin. (9) Obstructive sleep apnea: BiPAP HS (10) Hemoptysis: On admission, however, this has not been an issue since. Currently patient is monitored. Patient does have a lung mass, which may have contributed to this problem no plans for work up at this time family considering hospice (11) DVT prophylaxis: Eliquis keep in ICU tonight could likely transfer tomorrow, look into hospice on discharge DNR, DNI now after discussions with POA today Subjective patient extubated this morning after a successful wean trial placed on BiPAP for short term and then titrated to 4L NC patient not in any distress, resting she denies any serious pain daughters who are the joint POA at the bedside they had a long discussion with palliative care earlier in the day decided to make patient DNR, do not intubate they are okay with aggressive measures such as BiPAP and antibiotics interested in looking into hospice once discharged reviewed labs today discussed with Dr. Dejesus discussed with Yareli Schulz with palliative care Review of Systems All systems reviewed & are unremarkable except as noted in HPI & below Constitutional: + fatigue and + weakness Respiratory: + cough, + chest congestion and + dyspnea Cardiovascular: no chest pain Gastrointestinal: no nausea and no vomiting Psychiatric: + anxiety Physical Exam 2 Vital Signs (Past 24 Hours): Last Vital Signs Temp 36.7 C 05/21/18 12:00 Pulse 101 H 05/21/18 14:15 Resp 21 05/21/18 13:30 BP 147/71 H 05/21/18 14:01 Pulse Ox 94 05/21/18 14:15 Constitutional: well developed, well nourished and + obese Eyes: PERRL, conjunctivae normal, anicteric sclerae ENMT: external ear and nose normal, oropharynx normal Neck: trachea midline, no thyromegaly Respiratory: normal respiratory effort and + cough; no respiratory distress Auscultation: + diminished lung sounds, + crackles and + rhonchi Cardiovascular: RRR, no murmur, no edema Gastrointestinal (Abdomen): normal bowel sounds, soft, nontender, no hepatosplenomegaly Musculoskeletal: no cyanosis or clubbing, extremities motor strength 5/5 Skin: no rashes, warm and dry Neurologic: patellar DTR's 2+ bilat, sensation intact and PERRL, EOMI, accommodation nl, no face palsy, no dysarthria Psychiatric: Orientation: oriented to person, oriented to place and cooperative; + not alert (fatigued, lethargic) and + not oriented to time Lymphatic: no cervical or axillary lymphadenopathy Results & Data Laboratory Results Laboratory Results - last 24 hr 05/20/18 05/20/18 05/20/18 16:26 20:45 23:54 Sample Site POC pH POC pCO2 POC pO2 POC HCO3 POC Total CO2 POC Base Excess POC ABG O2 Sat Red Test O2 Delivery Device POC FiO2 PEEP Sodium Potassium Chloride Carbon Dioxide Anion Gap BUN Creatinine Est Cr Clr Drug Dosing Est GFR ( Amer) Est GFR (Non-Af Amer) BUN/Creatinine Ratio Glucose POC Glucose 181 H 109 H 104 H Calcium 05/21/18 05/21/18 05/21/18 04:23 04:26 07:54 Sample Site POC pH POC pCO2 POC pO2 POC HCO3 POC Total CO2 POC Base Excess POC ABG O2 Sat Red Test O2 Delivery Device POC FiO2 PEEP Sodium 146 H Potassium 3.5 Chloride 102 Carbon Dioxide 45 H* Anion Gap -1.0 L BUN 51 H Creatinine 0.93 Est Cr Clr Drug Dosing 63.3 Est GFR ( Amer) 69.2 Est GFR (Non-Af Amer) 59.7 BUN/Creatinine Ratio 54.7 H Glucose 100 H POC Glucose 104 H 107 H Calcium 8.6 05/21/18 05/21/18 11:24 13:14 Sample Site Art Line POC pH 7.34 L POC pCO2 86 H POC pO2 67 L POC HCO3 47 H POC Total CO2 > 40 H* POC Base Excess 21.0 H POC ABG O2 Sat 90.0 Red Test NA O2 Delivery Device Ventilator POC FiO2 30 PEEP 5 Sodium Potassium Chloride Carbon Dioxide Anion Gap BUN Creatinine Est Cr Clr Drug Dosing Est GFR ( Amer) Est GFR (Non-Af Amer) BUN/Creatinine Ratio Glucose POC Glucose 152 H Calcium Medications Administered Current Inpatient Medications Acetaminophen (Tylenol) 650 mg PO Q4H PRN PRN Reason: Pain or Fever Stop: 06/14/18 05:48 Last Admin: 05/15/18 23:47 Dose: 650 mg Albuterol (Ventolin 0.083% 2.5mg/3ml) 2.5 mg NEB Q4H PRN PRN Reason: Shortness Of Breath Stop: 06/14/18 05:48 Albuterol (Duoneb) 3 ml NEB Q4R [facility] Stop: 06/15/18 19:59 Last Admin: 05/21/18 15:41 Dose: 3 ml Amiodarone HCl (Cordarone) 200 mg PO DAILY [facility] Stop: 06/14/18 08:59 Last Admin: 05/21/18 07:50 Dose: 200 mg Apixaban (Eliquis) 5 mg PO BID [facility] Stop: 06/19/18 20:59 Last Admin: 05/21/18 07:50 Dose: 5 mg Atorvastatin Calcium (Lipitor) 80 mg PO DAILY [facility] Stop: 06/14/18 08:59 Last Admin: 05/21/18 07:51 Dose: 80 mg Buspirone HCl (Buspar) 15 mg PO BID [facility] Stop: 06/19/18 20:59 Last Admin: 05/21/18 07:50 Dose: 15 mg Chlorhexidine Gluconate (Peridex) 15 ml MT DAILY [facility] Stop: 06/16/18 08:59 Last Admin: 05/21/18 07:51 Dose: 480 ml Dextrose (Dextrose 50%) 25 - 50 ml IV UD PRN; Protocol PRN Reason: Hypoglycemia Protocol Stop: 06/14/18 11:56 Diclofenac Sodium (Voltaren 1% Top) 1 appln EXT QID PRN PRN Reason: Pain Stop: 06/14/18 05:48 Diltiazem HCl (Cardizem) 90 mg PO Q6 [facility] Stop: 06/15/18 18:44 Last Admin: 05/16/18 19:29 Dose: 90 mg Ferrous Sulfate (Feosol) 325 mg PO BID [facility] Stop: 06/14/18 08:59 Last Admin: 05/21/18 07:51 Dose: 325 mg Glucagon (Glucagen) 1 mg IM UD PRN; Protocol PRN Reason: Hypoglycemia Protocol Stop: 06/14/18 11:56 Glucose (Glucose 40%) 15 - 30 gm PO UD PRN; Protocol PRN Reason: Hypoglycemia Protocol Stop: 06/14/18 11:56 Glucose (Dex4 Glucose) 4 - 8 tabs PO UD PRN; Protocol PRN Reason: Hypoglycemia Protocol Stop: 06/14/18 11:56 Heparin Sodium (Beef Lung) (Heparin Sod 10 Unit/Ml Flush) 5 ml FLUSH PRN PRN PRN Reason: Flush Stop: 06/18/18 01:30 Methylprednisolone 40 mg/ (Syringe) 0.64 mls @ 1.5 mls/min IV Q6H [facility] Stop: 06/14/18 09:59 Last Admin: 05/21/18 07:50 Dose: 1.5 mls/min Piperacillin Sod/Tazobactam (Sod 4.5 gm/ Dextrose) 120 mls @ 30 mls/hr IV Q8H [facility]; Protocol Stop: 05/24/18 00:00 Last Infusion: 05/21/18 12:08 Dose: Infused Pantoprazole Sodium 40 mg/ (Syringe) 10 mls @ 5 mls/min IV DAILY@1100 [facility] Stop: 06/16/18 10:59 Last Admin: 05/21/18 10:44 Dose: 5 mls/min Furosemide 40 mg/ Syringe 4 mls @ 4 mls/min IV Q8H [facility] Stop: 06/19/18 13:59 Last Admin: 05/21/18 14:19 Dose: 4 mls/min Insulin Aspart (Novolog Flexpen) 0 units SC Q4 [facility]; Protocol Stop: 06/16/18 12:29 Last Admin: 05/21/18 11:26 Dose: 9 units Insulin Glargine (Lantus Solostar Pen) 0 units SC BID [facility]; Protocol Stop: 06/16/18 12:35 Last Admin: 05/21/18 07:54 Dose: 20 units Ketoconazole (Nizoral 2%) 1 appln EXT BID [facility] Stop: 05/25/18 08:59 Last Admin: 05/21/18 07:52 Dose: 45 appln Lactulose (Chronulac) 30 gm PO Q8H PRN PRN Reason: constipation Stop: 06/19/18 08:59 Last Admin: 05/20/18 11:16 Dose: 30 gm Mirtazapine (Remeron) 30 mg PO [facility] Stop: 06/14/18 20:59 Last Admin: 05/20/18 22:02 Dose: 30 mg Miscellaneous (Carbohydrates For Hypoglycemia) 15 - 30 gm PO UD PRN PRN Reason: Hypoglycemia Treatment Stop: 06/14/18 11:56 Miscellaneous Information (Consult Glycemic Management Pharmacy) 1 ea N/A UD PRN PRN Reason: Consult Stop: 06/14/18 11:56 Miscellaneous Information (Consult) 1 ea N/A UD PRN PRN Reason: Consult Stop: 06/15/18 18:39 Nitroglycerin (Nitrostat) 0.4 mg SL UD PRN PRN Reason: Chest Pain Stop: 06/14/18 05:48 Ondansetron HCl (Zofran) 4 mg IV Q6H PRN PRN Reason: Nausea Stop: 06/14/18 05:48 Last Admin: 05/16/18 14:20 Dose: 4 mg Polyethylene Glycol (Miralax Powder Packet) 17 gm PO DAILY PRN PRN Reason: Constipation Stop: 06/14/18 05:48 Pramipexole Dihydrochloride (Mirapex) 1 mg PO [facility] Stop: 06/14/18 20:59 Last Admin: 05/20/18 22:02 Dose: 1 mg Trazodone HCl (Desyrel) 100 mg PO HS [facility] Stop: 06/17/18 20:59 Last Admin: 05/20/18 22:05 Dose: 100 mg _ (1) Hyperglycemia due to type 2 diabetes mellitus Diabetes mellitus shelter insulin use: with director digital strategy use Qualified Code(s) : E11.65 - Type 2 diabetes mellitus with hyperglycemia; Z79.4 - cubing 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
[2018-05-21] MEDS: DEXTROSE 50% 50 ML SYRINGE IV PRN (20:52)
[2018-05-21] MEDS: TRAZODONE HCL 100 MG TAB PO SCH (21:21)
[2018-05-21] MEDS: MIRTAZAPINE TAB 15 MG TAB PO SCH (21:22)
[2018-05-21] MEDS: PRAMIPEXOLE DIHYDROCHLO 0.5 MG TAB PO SCH (21:22)
[2018-05-21] MEDS ORDERED: INSULIN GLARGINE SOLOSTAR 100 UNITS/ML 3 ML PEN SC ONE (22:00)
[2018-05-22] MEDS ORDERED: INSULIN ASPART 100 UNITS/ML 3 ML PEN SC SCH
[2018-05-22] MEDS: DEXTROSE 50% 50 ML SYRINGE IV PRN ×2 (00:20→05:57)
[2018-05-22] MEDS: PIPERACILLIN/TAZOBACTAM 4.5 GM in DEXTROSE 5% 100 ML IV SCH ×4 (00:26→23:44)
[2018-05-22] MEDS: INSULIN ASPART 100 UNITS/ML 3 ML PEN SC SCH ×5 (00:27→21:22)
[2018-05-22] MEDS: ALBUT/IPRATROP 3MG/0.5MG NEB 3 ML VIAL NEB SCH ×6 (03:14→23:24)
[2018-05-22] MEDS: methylPREDNISolone 40 MG in SYRINGE 0 ML IV SCH ×3 (04:03→15:55)
[2018-05-22] MEDS: FUROSEMIDE 40 MG in SYRINGE 0 ML IV SCH ×3 (06:01→21:15)
[2018-05-22] MEDS: SODIUM CHLORIDE 0.9% 1000ML 1,000 ML IV SCH (07:05)
[2018-05-22] MEDS: MIDAZOLAM HCL 125 MG/250 ML BAG IV SCH (07:05)
[2018-05-22] MEDS: KETOCONAZOLE 2% CR 15 GM TUBE EXT SCH ×2 (08:55→21:08)
[2018-05-22] MEDS: CHLORHEXIDINE GLUCONATE 0.12% 480 ML MT SCH (08:55)
[2018-05-22 09:17] LABS: Basophils # (auto) 0.01 K/uL (0-0.2); Basophils % (auto) 0.1 %; Hemoglobin 11.3 g/dL (12.0-16.0); Immature Granulocytes # (auto) 0.13 K/uL (0.00-0.02); Immature Granulocytes % (auto) 1.6 %; Lymphocytes # (auto) 0.43 K/uL (1.2-3.4); Lymphocytes % (auto) 5.2 %; Mean Corpuscular Hgb Conc 29.7 g/dL (32-36); Mean Corpuscular Volume 93.4 fL (80-100); Mean Platelet Volume 10.7 fL (7.4-10.4); Monocytes # (auto) 0.59 K/uL (0.11-0.59); Monocytes % (auto) 7.1 %; Neutrophils # (auto) 7.11 K/uL (1.4-6.5); Nucleated RBC # (auto) 0.04 K/uL (0-0); Nucleated RBC % (auto) 0.5 %; Platelet Count 195 K/uL (130-400); RDW Coefficient of Variation 15.2 % (11.5-14.5); RDW Standard Deviation 51.8 fL (36.4-46.3); Red Blood Count 4.07 M/uL (4.2-5.4); White Blood Count 8.27 K/uL (4.8-10.8)
[2018-05-22 09:34] LABS: BUN Creatinine Ratio 59.2 (10-20); Calcium 8.4 mg/dl (8.5-10.1); Creatinine Clr Calc Pharmacy 63.4 ml/min; Est GFR (Non-African American) 61.3; Potassium 2.7 mmol/L (3.5-5.1)
[2018-05-22] MEDS: AMIODARONE 200 MG TAB PO SCH (11:15)
[2018-05-22] MEDS: ATORVASTATIN 40 MG TAB PO SCH (11:15)
[2018-05-22] MEDS: FERROUS SULFATE 325 MG TAB PO SCH ×2 (11:16→21:07)
[2018-05-22] MEDS: PANTOprazole 40 MG in SYRINGE 0 ML IV SCH (11:16)
[2018-05-22] MEDS: POLYETHYLENE (MIRALAX) 17 GM PACK PO PRN (11:35)
[2018-05-22] MEDS: APIXABAN 5 MG TABLET PO SCH ×2 (11:43→21:07)
[2018-05-22] MEDS: BusPIRone 15 MG TAB PO SCH ×2 (11:43→21:07)
[2018-05-22] MEDS: POTASSIUM CHLORIDE PWD 20 MEQ PACK PO SCH ×2 (14:10→23:28)
[2018-05-22] MEDS ORDERED: LACTULOSE SYRUP 30 GM/45 ML UDP PO PRN (14:31)
--- NOTE | 2018-05-22 15:46 | Palliative Care Progress Note ---
Date of Service May 22, 2018 Assessment & Plan (1) Palliative care encounter: -This is a 78 year old female who presented to the ED from home with SOB and hemoptysis that was occurring over the past 3-4 days. The patient was recently admitted in April 2018 with acute on chronic respiratory failure with hypoxia and hypercapnia. Additional PMH includes HTN, HLD, DM2, LOGAN, and obesity. The patient aspirated and was intubated from 05/16/18-05/21/18. During this timeframe, the patient underwent a bronch for which a mass was discovered in her lung. A lengthy family meeting (8 siblings, 2 POA's) was held with Dr. Dejesus and additional IDT members over the weekend and based on her toleration of CPAP trials and partially compensation of her respiratory acidosis noted on her ABG (pH 7.34 pCO2 86, HCO3 47), was extubated to BiPap, now on 4LNC. -Patient more alert today. Oriented x4. Patient states she would not want to be intubated again and would not want CPR, confirming DNR status. -Patient is still feeling SOB and not well, remains in ICU for treatment. -Per conversation with patient's family and palliative care yesterday, plan is to continue medical treatment in hopes of getting patient well enough to go home with hospice. -For now, continue current medical management in hopes of improvement in condition. Patient and family would be okay with bipap if needed. (2) Acute exacerbation of chronic obstructive pulmonary disease (COPD): -Managed by vehicle service agent/hospitalist -Patient with COPD on 4LNC at baseline prior to admission. -Recurrent aspiration d/t previous CVA. (3) Atrial fibrillation: -Managed by ICU and Hospitalists -Pt was on Pradaxa for Afib - this was stopped d/t hemoptysis, now restarted, but on Eloquis. (4) Cerebrovascular disease: -Previous CVA, no acute changes -Due to previous CVA, recurrent aspirations -Was eval by ST in the past - based on how patient improves, would do a re-eval. Subjective No family at bedside. Patient more alert and oriented today. Patient feels SOB and not well, did not want to talk at length. Patient confirmed her DNR status. Does not want to be intubated again. Constitutional: + weakness Ear, Nose, Mouth, Throat: no dry mouth and no sore throat Respiratory: + cough, + dyspnea and + dyspnea on exertion; no hemoptysis Cardiovascular: + edema; no chest pain Gastrointestinal: no abdominal pain, no nausea and no vomiting Neurologic: no confusion Psychiatric: no anxiety Physical Exam 2 Vital Signs (Past 24 Hours): Last Vital Signs Temp 36.7 C 05/22/18 12:00 Pulse 95 H 05/22/18 15:00 Resp 29 H 05/22/18 15:00 BP 183/79 H 05/22/18 15:00 Pulse Ox 94 05/22/18 15:00 Constitutional: + ill appearing, + morbidly obese and + edematous ENMT: external ear and nose normal, oropharynx normal Neck: trachea midline, no thyromegaly Respiratory: + cough; + not able to speak in complete sentence Auscultation : + rhonchi Cardiovascular: Heart Sounds: normal S1 and normal S2 Gastrointestinal (Abdomen): normal bowel sounds, soft, nontender, no hepatosplenomegaly Inspection/Auscultation: + abdomen distended and + abdominal edema (in LE and periphery) Skin: no rashes, warm and dry Time Spent Midlevel 25 minutes with >50% of time spent at bedside with patient discussing condition and goals of care.
--- NOTE | 2018-05-22 15:52 | Hospitalist Progress Note ---
Date of Service May 22, 2018 Assessment & Plan (1) Acute on chronic respiratory failure with hypoxia and hypercapnia: This was present on admission Patient was intubated after aspirating on 05/16/18. During bronch, large amount of bile was removed from lung. This likely caused lung injury. weaning trial and extubation on 05/21/18, titrated down to 4L NC by the afternoon continue in ICU overnight for close monitoring can use BiPAP at night, PRN still requiring 4L, no distress today likely out of ICU tomorrow (2) Hypoxia: As noted above, extubated 05/21/18 breathing stable on 4LNC (3) Acute exacerbation of chronic obstructive pulmonary disease (COPD): Patient initially admitted for this problem. Patient became hypercapnic and aspirated while on Bipap. lungs with diminished sounds and rhonchi, mild wheezing continue steroids, nebulizers, Zosyn patient would not want intubated again in the future, she is DNI, DNR (4) Hyperglycemia due to type 2 diabetes mellitus: continue Lantus and SS elevated sugars due to steroids monitor for hypoglycemia, no episodes eating well today (5) Acute on chronic diastolic (congestive) heart failure: utilizing Lasix IV, continues to diurese try to keep lungs dry after acute lung injury with aspiration follow I/O and daily weights (6) Atrial fibrillation: sinus on admission cont Diltiazem, Amiodarone Pradaxa changed to Eliquis so it could be given via NGT (7) Hypertension: HTN, HLD - cont Atorvastatin, Diltiazem, Lisinopril. BP has been mildly elevated. Will continue to monitor. (8) Hyperlipidemia LDL goal <70: continue on atorvastatin. (9) Obstructive sleep apnea: BiPAP HS (10) Hemoptysis: On admission, however, this has not been an issue since. Currently patient is monitored. Patient does have a lung mass, which may have contributed to this problem no plans for work up at this time family considering hospice (11) Hypokalemia: low due to diuresis with Lasix will start 20mEq powder TID, repeat in the AM (12) DVT prophylaxis: Eliquis keep in ICU tonight DNR, DNI now after discussions with POA today Subjective patient more alert today, sitting up in bed, breathing better just finished eating lunch, wants to keep eating and drinking, asked her to wait and focus on breathing no chest pain or pressure has a cough, mildly productive reviewed vitals labs reviewed, K low due to diuresis, TID replacement ordered HCO3 continues to be high, > [address] Dejesus's management of this patient Review of Systems All systems reviewed & are unremarkable except as noted in HPI & below Respiratory: + cough, + dyspnea, + dyspnea on exertion and + sputum production Physical Exam 2 Vital Signs (Past 24 Hours): Last Vital Signs Temp 36.7 C 05/22/18 12:00 Pulse 95 H 05/22/18 15:00 Resp 29 H 05/22/18 15:00 BP 183/79 H 05/22/18 15:00 Pulse Ox 94 05/22/18 15:00 Constitutional: well developed, well nourished and + obese Eyes: PERRL, conjunctivae normal, anicteric sclerae ENMT: external ear and nose normal, oropharynx normal Neck: trachea midline, no thyromegaly Respiratory: normal respiratory effort and + cough; no respiratory distress Auscultation: + diminished lung sounds, + crackles and + rhonchi Cardiovascular: RRR, no murmur, no edema Gastrointestinal (Abdomen): normal bowel sounds, soft, nontender, no hepatosplenomegaly Musculoskeletal: no cyanosis or clubbing, extremities motor strength 5/5 Skin: no rashes, warm and dry Neurologic: patellar DTR's 2+ bilat, sensation intact and PERRL, EOMI, accommodation nl, no face palsy, no dysarthria Psychiatric: Orientation: alert, oriented to person, oriented to place, oriented to time and cooperative Lymphatic: no cervical or axillary lymphadenopathy Results & Data Laboratory Results Laboratory Results - last 24 hr 05/21/18 05/21/18 05/21/18 16:05 20:46 20:48 WBC RBC Hgb Hct MCV MCH MCHC RDW Std Deviation RDW Coeff of Veronique Plt Count MPV Immature Gran % (Auto) Neut % (Auto) Lymph % (Auto) [place] % (Auto) Eos % (Auto) Baso % (Auto) Immature Gran # (Auto) Neut # (Auto) Lymph # (Auto) [place] # (Auto) Eos # (Auto) Baso # (Auto) Absolute Nucleated RBC Nucleated RBC % (auto) Sodium Potassium Chloride Carbon Dioxide Anion Gap BUN Creatinine Est Cr Clr Drug Dosing Est GFR ( Amer) Est GFR (Non-Af Amer) BUN/Creatinine Ratio Glucose POC Glucose 78 58 L* 54 L* Calcium 05/21/18 05/22/18 05/22/18 21:06 00:20 00:22 WBC RBC Hgb Hct MCV MCH MCHC RDW Std Deviation RDW Coeff of Veronique Plt Count MPV Immature Gran % (Auto) Neut % (Auto) Lymph % (Auto) [place] % (Auto) Eos % (Auto) Baso % (Auto) Immature Gran # (Auto) Neut # (Auto) Lymph # (Auto) [place] # (Auto) Eos # (Auto) Baso # (Auto) Absolute Nucleated RBC Nucleated RBC % (auto) Sodium Potassium Chloride Carbon Dioxide Anion Gap BUN Creatinine Est Cr Clr Drug Dosing Est GFR ( Amer) Est GFR (Non-Af Amer) BUN/Creatinine Ratio Glucose POC Glucose 114 H 64 L* 66 L* Calcium 05/22/18 05/22/18 05/22/18 00:40 04:07 04:09 WBC RBC Hgb Hct MCV MCH MCHC RDW Std Deviation RDW Coeff of Veronique Plt Count MPV Immature Gran % (Auto) Neut % (Auto) Lymph % (Auto) [place] % (Auto) Eos % (Auto) Baso % (Auto) Immature Gran # (Auto) Neut # (Auto) Lymph # (Auto) [place] # (Auto) Eos # (Auto) Baso # (Auto) Absolute Nucleated RBC Nucleated RBC % (auto) Sodium Potassium Chloride Carbon Dioxide Anion Gap BUN Creatinine Est Cr Clr Drug Dosing Est GFR ( Amer) Est GFR (Non-Af Amer) BUN/Creatinine Ratio Glucose POC Glucose 115 H 67 L* 70 Calcium 05/22/18 05/22/18 05/22/18 05:53 05:54 06:13 WBC RBC Hgb Hct MCV MCH MCHC RDW Std Deviation RDW Coeff of Veronique Plt Count MPV Immature Gran % (Auto) Neut % (Auto) Lymph % (Auto) [place] % (Auto) Eos % (Auto) Baso % (Auto) Immature Gran # (Auto) Neut # (Auto) Lymph # (Auto) [place] # (Auto) Eos # (Auto) Baso # (Auto) Absolute Nucleated RBC Nucleated RBC % (auto) Sodium Potassium Chloride Carbon Dioxide Anion Gap BUN Creatinine Est Cr Clr Drug Dosing Est GFR ( Amer) Est GFR (Non-Af Amer) BUN/Creatinine Ratio Glucose POC Glucose 63 L* 57 L* 127 H Calcium 05/22/18 05/22/18 05/22/18 07:48 08:51 08:51 WBC 8.27 RBC 4.07 L Hgb 11.3 L Hct 38.0 MCV 93.4 MCH 27.8 MCHC 29.7 L RDW Std Deviation 51.8 H RDW Coeff of Veronique 15.2 H Plt Count 195 MPV 10.7 H Immature Gran % (Auto) 1.6 Neut % (Auto) 86.0 Lymph % (Auto) 5.2 [place] % (Auto) 7.1 Eos % (Auto) 0.0 Baso % (Auto) 0.1 Immature Gran # (Auto) 0.13 H Neut # (Auto) 7.11 H Lymph # (Auto) 0.43 L [place] # (Auto) 0.59 Eos # (Auto) 0.00 Baso # (Auto) 0.01 Absolute Nucleated RBC 0.04 H Nucleated RBC % (auto) 0.5 Sodium 145 Potassium 2.7 L D Chloride 95 L Carbon Dioxide 52 H* Anion Gap -1.0 L BUN 54 H Creatinine 0.91 Est Cr Clr Drug Dosing 63.4 Est GFR ( Amer) 71.0 Est GFR (Non-Af Amer) 61.3 BUN/Creatinine Ratio 59.2 H Glucose 82 POC Glucose 93 Calcium 8.4 L Medications Administered Current Inpatient Medications Acetaminophen (Tylenol) 650 mg PO Q4H PRN PRN Reason: Pain or Fever Stop: 06/14/18 05:48 Last Admin: 05/15/18 23:47 Dose: 650 mg Albuterol (Ventolin 0.083% 2.5mg/3ml) 2.5 mg NEB Q4H PRN PRN Reason: Shortness Of Breath Stop: 06/14/18 05:48 Albuterol (Duoneb) 3 ml NEB Q4R [facility] Stop: 06/15/18 19:59 Last Admin: 05/22/18 11:24 Dose: 3 ml Amiodarone HCl (Cordarone) 200 mg PO DAILY [facility] Stop: 06/14/18 08:59 Last Admin: 05/22/18 11:15 Dose: 200 mg Apixaban (Eliquis) 5 mg PO BID [facility] Stop: 06/19/18 20:59 Last Admin: 05/22/18 11:43 Dose: 5 mg Atorvastatin Calcium (Lipitor) 80 mg PO DAILY [facility] Stop: 06/14/18 08:59 Last Admin: 05/22/18 11:15 Dose: 80 mg Buspirone HCl (Buspar) 15 mg PO BID [facility] Stop: 06/19/18 20:59 Last Admin: 05/22/18 11:43 Dose: 15 mg Chlorhexidine Gluconate (Peridex) 15 ml MT DAILY [facility] Stop: 06/16/18 08:59 Last Admin: 05/22/18 08:55 Dose: 15 ml Dextrose (Dextrose 50%) 25 - 50 ml IV UD PRN; Protocol PRN Reason: Hypoglycemia Protocol Stop: 06/14/18 11:56 Last Admin: 05/22/18 05:57 Dose: 25 ml Diclofenac Sodium (Voltaren 1% Top) 1 appln EXT QID PRN PRN Reason: Pain Stop: 06/14/18 05:48 Diltiazem HCl (Cardizem) 90 mg PO Q6 [facility] Stop: 06/15/18 18:44 Last Admin: 05/16/18 19:29 Dose: 90 mg Ferrous Sulfate (Feosol) 325 mg PO BID [facility] Stop: 06/14/18 08:59 Last Admin: 05/22/18 11:16 Dose: 325 mg Glucagon (Glucagen) 1 mg IM UD PRN; Protocol PRN Reason: Hypoglycemia Protocol Stop: 06/14/18 11:56 Glucose (Glucose 40%) 15 - 30 gm PO UD PRN; Protocol PRN Reason: Hypoglycemia Protocol Stop: 06/14/18 11:56 Glucose (Dex4 Glucose) 4 - 8 tabs PO UD PRN; Protocol PRN Reason: Hypoglycemia Protocol Stop: 06/14/18 11:56 Heparin Sodium (Beef Lung) (Heparin Sod 10 Unit/Ml Flush) 5 ml FLUSH PRN PRN PRN Reason: Flush Stop: 06/18/18 01:30 Methylprednisolone 40 mg/ (Syringe) 0.64 mls @ 1.5 mls/min IV Q6H [facility] Stop: 06/14/18 09:59 Last Admin: 05/22/18 11:16 Dose: 1.5 mls/min Piperacillin Sod/Tazobactam (Sod 4.5 gm/ Dextrose) 120 mls @ 30 mls/hr IV Q8H [facility]; Protocol Stop: 05/24/18 00:00 Last Infusion: 05/22/18 12:58 Dose: Infused Pantoprazole Sodium 40 mg/ (Syringe) 10 mls @ 5 mls/min IV DAILY@1100 [facility] Stop: 06/16/18 10:59 Last Admin: 05/22/18 11:16 Dose: 5 mls/min Furosemide 40 mg/ Syringe 4 mls @ 4 mls/min IV Q8H [facility] Stop: 06/19/18 13:59 Last Admin: 05/22/18 14:10 Dose: 4 mls/min Insulin Aspart (Novolog Flexpen) 0 units SC ACHS [facility]; Protocol Stop: 06/21/18 16:29 Insulin Aspart (Novolog Flexpen) 0 units SC TODAY@0000,0400 [facility]; Protocol Stop: 05/23/18 04:01 Ketoconazole (Nizoral 2%) 1 appln EXT BID [facility] Stop: 05/25/18 08:59 Last Admin: 05/22/18 08:55 Dose: 1 appln Lactulose (Chronulac) 30 gm PO Q8H PRN PRN Reason: constipation Stop: 06/21/18 14:30 Mirtazapine (Remeron) 30 mg PO HS [facility] Stop: 06/14/18 20:59 Last Admin: 05/21/18 21:22 Dose: 30 mg Miscellaneous (Carbohydrates For Hypoglycemia) 15 - 30 gm PO UD PRN PRN Reason: Hypoglycemia Treatment Stop: 06/14/18 11:56 Miscellaneous Information (Consult Glycemic Management Pharmacy) 1 ea N/A UD PRN PRN Reason: Consult Stop: 06/14/18 11:56 Miscellaneous Information (Consult) 1 ea N/A UD PRN PRN Reason: Consult Stop: 06/15/18 18:39 Nitroglycerin (Nitrostat) 0.4 mg SL UD PRN PRN Reason: Chest Pain Stop: 06/14/18 05:48 Ondansetron HCl (Zofran) 4 mg IV Q6H PRN PRN Reason: Nausea Stop: 06/14/18 05:48 Last Admin: 05/16/18 14:20 Dose: 4 mg Polyethylene Glycol (Miralax Powder Packet) 17 gm PO DAILY PRN PRN Reason: Constipation Stop: 06/14/18 05:48 Last Admin: 05/22/18 11:35 Dose: 17 gm Potassium Chloride (Klor-Con Pwd) 20 meq PO TID [facility] Stop: 06/21/18 13:59 Last Admin: 05/22/18 14:10 Dose: 20 meq Pramipexole Dihydrochloride (Mirapex) 1 mg PO HS [facility] Stop: 06/14/18 20:59 Last Admin: 05/21/18 21:22 Dose: 1 mg Trazodone HCl (Desyrel) 100 mg PO HS [facility] Stop: 06/17/18 20:59 Last Admin: 05/21/18 21:21 Dose: 100 mg _ (1) Hyperglycemia due to type 2 diabetes mellitus Diabetes mellitus intermodal customer service insulin use: with intermodal customer service use Qualified Code(s) : E11.65 - Type 2 diabetes mellitus with hyperglycemia; Z79.4 - longterm ( current) use of insulin
--- NOTE | 2018-05-22 16:05 | Pharmacy Report ---
Glycemic Control Progress Note - Date of Service May 22, 2018 - Scope Glycemic Pharmacist consulted for glycemic control to write orders per [facility] inpatient glycemic control protocol. - Objective Accuchecks BSG(last 24 hours):: 05/21/18 05/21/18 05/21/18 16:05 20:46 20:48 Glucose POC Glucose 78 58 L* 54 L* 05/21/18 05/22/18 05/22/18 21:06 00:20 00:22 Glucose POC Glucose 114 H 64 L* 66 L* 05/22/18 05/22/18 05/22/18 00:40 04:07 04:09 Glucose POC Glucose 115 H 67 L* 70 05/22/18 05/22/18 05/22/18 05:53 05:54 06:13 Glucose POC Glucose 63 L* 57 L* 127 H 05/22/18 05/22/18 07:48 08:51 Glucose 82 POC Glucose 93 - Recent Pertinent Medications The patient is currently receiving: * Basal insulin: Lantus 20 units 05/21 AM and 15 units 05/21 PM ( significantly decreased from total of 90 units administered on 05/20) * Correctional Insulin: Novolog Correction per scale ACHS Goal Range: Low 120 mg/dL - High 160 mg/dL Correction Factor: 10 mg/dL/unit * Prandial insulin: Per carb ratio of 1 unit per 2.5 grams CHO consumed - Outpatient Anti-Diabetic Meds Lantus 30 units qAM, 33 units qPM Insulin lispro - Assessment & Plan ASSESSMENT: * Stressors * Steroids: continuing on methylprednisolone 40 mg IV q6h * Infection: aspiration PNA on Zosyn * Diet: peptamen [facility] held 05/21 @ ~1400, was NPO, now ordered T2DM diet for lunch today * Mechanical ventillation: extubated 05/21 * Patient with severe repeat hypoglycemia yesterday evening and overnight into this AM 2nd tubefeeds held and possibly 2nd increased insulin sensitivity 2nd extubation, discontinuation of NE, and continuous midazolam drip. Hypoglycemia occurred despite significant reduction in Lantus yesterday (total of 35 units administered yesterday when 90 units was administered the day prior and produced an AM fasting BSG of 127 mg/dL) * Will hold ongoing Lantus for now as patient did receive 15 units last night and effects will persist until tonight. Patient is still only 102 mg/dL at lunch today * OK to continue relatively tight Novolog despite hypoglycemia as patient continues on very high dose steroids and the severity of hypoglycemia occurred despite the TF only providing a *total* of 114 g CHO per *day*, thus suggesting that the patient is very sensitive to CHO consumed while on steroids. However, will loosen slightly from previous due to risk for repeat hypoglycemia PLAN FOR INPATIENT GLYCEMIC CONTROL: * Lantus HS based on BSG * 10 units for BSG less than 110 mg/dL * 15 units for BSG 110-180 mg/dL * 20 units for BSG greater than 180 mg/dL * Novolog ACHS based on BSG and 2 overnight checks * Goal range: 120-150 mg/dL * Correction factor: 12 mg/dL/unit * Carb ratio: 4 g CHO/unit * Please note that the plan above was derived based on current level of insulin resistance and hospital stress. These recommendations are appropriate for inpatient admission only. Plan of care upon discharge will need to be reassessed to avoid potential outpatient hypo/hyperglycemia. Thank you.
--- NOTE | 2018-05-22 17:32 | Critical Care Progress Note ---
Date of Service May 22, 2018 Assessment & Plan (1) Acute on chronic respiratory failure with hypoxia and hypercapnia: Impression: 1. Acute on chronic hypercapnic and hypoxic respiratory failure secondary to acute aspiration in addition to severe COPD. 2. Aspiration of biliary material suctioned with a bronchoscopy. Affecting the left lower lobe. 3. History of anxiety, the patient treated with multiple psychedelic medications affecting her respiratory drive as well as her cough reflex. 4. Morbid obesity with obstructive sleep apnea, could not tolerate BiPAP. 5. Atrial fibrillation. Rate controlled. 6. Diastolic heart failure. 7. History of CVA also contributing to her recurrent aspiration. Plan: 1. Remains extubated, she is tolerating only 4 L of oxygen. 2. Discontinue vap bundle. 3. Glycemic control. 4. Completed Diamox doses. 5. Continue with Zosyn to complete the course of 7 days. 6. Continue diltiazem. 7. Daily labs. 8. DuoNeb every 4 hours. 9. Start oral intake. 10. Minimize her psych medications, 11. Physical therapy and out of bed, 12. Solu-Medrol 40 mg IV every 12. 13. Discussed with the family today and updated. 14. Swallow eval at the bedside. 15. She would need significant rehabilitation. 16. Start oral intake. 17. Continue Eliquis. 18. Her IV medications can be changed to oral. 19. Continue with BiPAP nocturnally. 20. Physical therapy. critical care time spent with the patient was 45 Minutes . Subjective The patient remains extubated, following commands, answering questions, overall lethargic, still fluid overload, has not had a step out of the bed yet, tolerating oral intake. No new symptoms. Physical Exam 2 Vital Signs (Past 24 Hours): Last Vital Signs Temp 36.9 C 05/22/18 16:01 Pulse 91 H 05/22/18 16:01 Resp 30 H 05/22/18 16: BP 175/57 H 05/22/18 16: Pulse Ox 93 05/22/18 16:01 Physical Exam: Vital signs are stable, blood pressure is slightly elevated, S1 -S2 regular rate and rhythm, abdomen is benign, lungs with rhonchi bilaterally, edema in the periphery noted. Neurologically she is nonfocal and she is feeling better. No skin rash. Results & Data Laboratory Results Labs were reviewed, white count are normal, hematocrit of 38, platelets of 195, mild bandemia, carbon dioxide is 52. Diagnostic Findings No new imaging.
[2018-05-22] MEDS ORDERED: INSULIN GLARGINE SOLOSTAR 100 UNITS/ML 3 ML PEN SC SCH (21:00)
[2018-05-22] MEDS: TRAZODONE HCL 100 MG TAB PO SCH (21:07)
[2018-05-22] MEDS: PRAMIPEXOLE DIHYDROCHLO 0.5 MG TAB PO SCH (21:08)
[2018-05-22] MEDS: MIRTAZAPINE TAB 15 MG TAB PO SCH (21:14)
[2018-05-22] MEDS: dilTIAZem HCL 30 MG TAB PO SCH (23:29)
[2018-05-23] MEDS: INSULIN ASPART 100 UNITS/ML 3 ML PEN SC SCH ×7 (00:11→23:31)
[2018-05-23] MEDS: methylPREDNISolone 40 MG in SYRINGE 0 ML IV SCH ×2 (03:30→15:30)
[2018-05-23] MEDS: ALBUT/IPRATROP 3MG/0.5MG NEB 3 ML VIAL NEB SCH ×4 (03:32→15:43)
[2018-05-23] MEDS: dilTIAZem HCL 30 MG TAB PO SCH ×2 (05:38→12:00)
[2018-05-23] MEDS: FUROSEMIDE 40 MG in SYRINGE 0 ML IV SCH ×2 (05:38→19:55)
[2018-05-23 06:22] LABS: Hematocrit (blood only) 39.3 % (37-47); Hemoglobin 11.7 g/dL (12.0-16.0); Mean Corpuscular Hgb Conc 29.8 g/dL (32-36); Mean Corpuscular Volume 93.8 fL (80-100); Nucleated RBC # (auto) 0.05 K/uL (0-0); Nucleated RBC % (auto) 0.5 %; Platelet Count 213 K/uL (130-400); RDW Coefficient of Variation 15.2 % (11.5-14.5); Red Blood Count 4.19 M/uL (4.2-5.4); White Blood Count 10.75 K/uL (4.8-10.8)
[2018-05-23 07:02] LABS: BUN Creatinine Ratio 45.4 (10-20); Calcium 8.1 mg/dl (8.5-10.1); Creatinine Clr Calc Pharmacy 61.6 ml/min; Est GFR (African American) 68.3; Est GFR (Non-African American) 58.9
[2018-05-23] MEDS: FERROUS SULFATE 325 MG TAB PO SCH ×2 (08:09→19:54)
[2018-05-23] MEDS: ATORVASTATIN 40 MG TAB PO SCH (08:09)
[2018-05-23] MEDS: AMIODARONE 200 MG TAB PO SCH (08:09)
[2018-05-23] MEDS: APIXABAN 5 MG TABLET PO SCH ×2 (08:10→19:54)
[2018-05-23] MEDS: POTASSIUM CHLORIDE PWD 20 MEQ PACK PO SCH ×3 (08:10→19:55)
[2018-05-23] MEDS: BusPIRone 15 MG TAB PO SCH ×2 (08:10→19:53)
[2018-05-23] MEDS: PIPERACILLIN/TAZOBACTAM 4.5 GM in DEXTROSE 5% 100 ML IV SCH ×3 (08:13→23:19)
[2018-05-23] MEDS: KETOCONAZOLE 2% CR 15 GM TUBE EXT SCH ×2 (08:14→19:55)
[2018-05-23] MEDS: CHLORHEXIDINE GLUCONATE 0.12% 480 ML MT SCH (08:42)
[2018-05-23] MEDS: PANTOprazole 40 MG in SYRINGE 0 ML IV SCH (10:15)
[2018-05-23] MEDS ORDERED: INSULIN GLARGINE SOLOSTAR 100 UNITS/ML 3 ML PEN SC ONE (12:30)
--- NOTE | 2018-05-23 14:16 | Pharmacy Report ---
Pharmacy Glycemic Short Note 2 - Date of Service May 23, 2018 - Glycemic Short BSG Results (Last 24 hours): 05/22/18 05/22/18 05/22/18 11:14 16:31 21:18 Glucose POC Glucose 102 H 155 H 206 H 05/23/18 05/23/18 05/23/18 00:11 03:18 05:58 Glucose 112 H POC Glucose 169 H 109 H 05/23/18 05/23/18 07:27 11:13 Glucose POC Glucose 96 265 H Outpatient Anti-diabetic Regimen: * Lantus 30 units qAM, Lantus 33 units qPM, Lispro SSI * A1c = 7.2 % 04/25/18 The patient is currently receiving: * Basal insulin: Lantus 35-45 units every 12 hours * Correctional Insulin: Novolog Correction per scale ACHS Goal Range: Low 110 mg/dL - High 140 mg/dL Correction Factor: 12 mg/dL/unit * Prandial insulin: Per carb ratio of 1 unit per 3 grams CHO consumed Risk Factors for Insulin Resistance: * Steroids: solu medrol 40 mg IV q6 * Diet: Tube Feeds * Mechanical ventilation - Assessment & Plan Assessment & Plan: 05/23/18 * Insulin requirements fell significantly over the last 3 days: 130 units (05/20) --> 52 units (05/21) --> 32 units (05/22) * Pt had experience hypoglycemia the evening of 05/21 prompting large reduction in Lantus dosage * BSGs did again begin to trend upwards on the evening of 05/22, however this was when pt began to tolerate diet again (extubated 05/21 but required swallow eval to resume diet) * Fasting BSG 96-109 this AM with 20 units of Lantus on board. * BSGs climbing with lunch today. Pre-lunch BSG 265. Will reinstate AM Lantus in addition to HS Lantus. Will slowly titrate basal up as needs may be dependent on dietary habits in this patient. * Steroid dose was reduced last evening (50% reduction), would expect improved insulin sensitivity today * CF and CR are aggressive doses. I am hesitant to increase either at this point based upon a single post-prandial elevation pre-lunch. PLAN FOR INPATIENT GLYCEMIC CONTROL: * Basal insulin * Lantus 10 units SQ AM + 20 units Q PM * Bolus insulin - * NovoLog per scale ACHS and at 00+04 tonight due to changing BSG pattern * Goal Range: Low 110 mg/dL - High 140 mg/dL * Correction Factor: 12 mg/dL/unit * Nutritional / Prandial insulin per carb ratio of 1 unit per 4 grams CHO consumed * Please note that the plan above was derived based on current level of insulin resistance and hospital stress. These recommendations are appropriate for inpatient admission only. Plan of care upon discharge will need to be reassessed to avoid potential outpatient hypo/hyperglycemia.
--- NOTE | 2018-05-23 15:58 | Hospitalist Progress Note ---
Date of Service May 23, 2018 Assessment & Plan (1) Acute on chronic respiratory failure with hypoxia and hypercapnia: This was present on admission Patient was intubated after aspirating on 05/16/18. During bronch, large amount of bile was removed from lung. This likely caused lung injury. weaning trial and extubation on 05/21/18, titrated down to 4L NC by the afternoon transferred to tele over night oxygen saturations stable on 4L discussed with patient and family that goal is 90% due to hypercapnia using BiPAP at night (2) Hypoxia: As noted above, extubated 05/21/18 breathing stable on 4LNC saturation goal is 90-92% (3) Acute exacerbation of chronic obstructive pulmonary disease (COPD): Patient initially admitted for this problem. Patient became hypercapnic and aspirated while on Bipap. lungs with diminished sounds and rhonchi, mild wheezing continue steroids, nebulizers, Zosyn consider changing Solu Medrol to Prednisone tomorrow, will see if she continues to improve patient would not want intubated again in the future, she is DNI, DNR (4) Hyperglycemia due to type 2 diabetes mellitus: continue Lantus and SS elevated sugars due to steroids monitor for hypoglycemia, no episodes eating well today (5) Acute on chronic diastolic (congestive) heart failure: utilizing Lasix IV, continues to diurese try to keep lungs dry after acute lung injury with aspiration follow I/O and daily weights negative fluid balance, Cr holding will cut back Lasix to 40mg IV q12 from q8 (6) Atrial fibrillation: sinus on admission cont Diltiazem, Amiodarone Pradaxa changed to Eliquis so it could be given via NGT change Diltiazem to 180mg BID which is home dose (7) Hypertension: HTN, HLD - cont Atorvastatin, Diltiazem, Lisinopril BP spiking to the 180's at times, will increase Lisinopril to 20mg daily from 5mg (8) Hyperlipidemia LDL goal <70: continue on atorvastatin. (9) Obstructive sleep apnea: BiPAP HS (10) Hemoptysis: On admission, however, this has not been an issue since. Currently patient is monitored. Patient does have a lung mass, which may have contributed to this problem no plans for work up at this time family and patient planning for hospice (11) Hypokalemia: low due to diuresis with Lasix will start 20mEq powder TID, K up to 3.0 this morning, repeat tomorrow (12) DVT prophylaxis: [place] keep in ICU tonight DNR, DNI now after discussions with POA today (13) Metabolic alkalosis with respiratory acidosis: will utilize Diamox 250mg BID x 2 days, would not continue this assistant terminal manager Subjective patient feeling slightly better, still very short of breath with minimal exertion still coughing, requests something to help loosen mucous reviewed labs, Cr stable, WBC mildly elevated, Hb stable HCO3 markedly elevated but this is chronic issue K coming up to 3.0 medications changed - reduce Lasix to q12 - add Diamox - change Cardizem to 180 BID (home dosing) - change Protonix to PO updated family at the bedside goal remains to go home on hospice, discussed that I feel she is a few days away Review of Systems All systems reviewed & are unremarkable except as noted in HPI & below Physical Exam 2 Vital Signs (Past 24 Hours): Last Vital Signs Temp 36.9 C 05/23/18 11:55 Pulse 84 05/23/18 15:43 Resp 22 05/23/18 15:43 BP 139/72 05/23/18 11:55 Pulse Ox 97 05/23/18 15:43 Constitutional: well developed, well nourished and + obese Eyes: PERRL, conjunctivae normal, anicteric sclerae ENMT: external ear and nose normal, oropharynx normal Neck: trachea midline, no thyromegaly Respiratory: normal respiratory effort and + cough; no respiratory distress Auscultation: + diminished lung sounds, + crackles and + rhonchi Cardiovascular: RRR, no murmur, no edema Gastrointestinal (Abdomen): normal bowel sounds, soft, nontender, no hepatosplenomegaly Musculoskeletal: no cyanosis or clubbing, extremities motor strength 5/5 Skin: no rashes, warm and dry Neurologic: patellar DTR's 2+ bilat, sensation intact and PERRL, EOMI, accommodation nl, no face palsy, no dysarthria Psychiatric: Orientation: alert, oriented to person, oriented to place, oriented to time and cooperative Lymphatic: no cervical or axillary lymphadenopathy Results & Data Laboratory Results Laboratory Results - last 24 hr 05/22/18 05/22/18 05/22/18 11:14 16:31 21:18 WBC RBC Hgb Hct MCV MCH MCHC RDW Std Deviation RDW Coeff of Veronique Plt Count MPV Absolute Nucleated RBC Nucleated RBC % (auto) Sodium Potassium Chloride Carbon Dioxide Anion Gap BUN Creatinine Est Cr Clr Drug Dosing Est GFR ( Amer) Est GFR (Non-Af Amer) BUN/Creatinine Ratio Glucose POC Glucose 102 H 155 H 206 H Calcium 05/23/18 05/23/18 05/23/18 00:11 03:18 05:58 WBC RBC Hgb Hct MCV MCH MCHC RDW Std Deviation RDW Coeff of Veronique Plt Count MPV Absolute Nucleated RBC Nucleated RBC % (auto) Sodium 144 Potassium 3.0 L Chloride 92 L Carbon Dioxide 49 H* Anion Gap 3.0 BUN 43 H Creatinine 0.94 Est Cr Clr Drug Dosing 61.6 Est GFR ( Amer) 68.3 Est GFR (Non-Af Amer) 58.9 BUN/Creatinine Ratio 45.4 H Glucose 112 H POC Glucose 169 H 109 H Calcium 8.1 L 05/23/18 05/23/18 05/23/18 05:58 07:27 11:13 WBC 10.75 RBC 4.19 L Hgb 11.7 L Hct 39.3 MCV 93.8 MCH 27.9 MCHC 29.8 L RDW Std Deviation 51.0 H RDW Coeff of Veronique 15.2 H Plt Count 213 MPV 11.0 H Absolute Nucleated RBC 0.05 H Nucleated RBC % (auto) 0.5 Sodium Potassium Chloride Carbon Dioxide Anion Gap BUN Creatinine Est Cr Clr Drug Dosing Est GFR ( Amer) Est GFR (Non-Af Amer) BUN/Creatinine Ratio Glucose POC Glucose 96 265 H Calcium 05/23/18 15:43 WBC RBC Hgb Hct MCV MCH MCHC RDW Std Deviation RDW Coeff of Veronique Plt Count MPV Absolute Nucleated RBC Nucleated RBC % (auto) Sodium Potassium Chloride Carbon Dioxide Anion Gap BUN Creatinine Est Cr Clr Drug Dosing Est GFR ( Amer) Est GFR (Non-Af Amer) BUN/Creatinine Ratio Glucose POC Glucose 113 H Calcium Medications Administered Current Inpatient Medications Acetaminophen (Tylenol) 650 mg PO Q4H PRN PRN Reason: Pain or Fever Stop: 06/14/18 05:48 Last Admin: 05/15/18 23:47 Dose: 650 mg Acetazolamide (Diamox) 250 mg PO BID [facility] Stop: 05/25/18 20:59 Albuterol (Ventolin 0.083% 2.5mg/3ml) 2.5 mg NEB Q4H PRN PRN Reason: Shortness Of Breath Stop: 06/14/18 05:48 Albuterol (Duoneb) 3 ml NEB Q4R [facility] Stop: 06/15/18 19:59 Last Admin: 05/23/18 15:43 Dose: 3 ml Amiodarone HCl (Cordarone) 200 mg PO DAILY [facility] Stop: 06/14/18 08:59 Last Admin: 05/23/18 08:09 Dose: 200 mg Apixaban (Eliquis) 5 mg PO BID [facility] Stop: 06/19/18 20:59 Last Admin: 05/23/18 08:10 Dose: 5 mg Atorvastatin Calcium (Lipitor) 80 mg PO DAILY [facility] Stop: 06/14/18 08:59 Last Admin: 05/23/18 08:09 Dose: 80 mg Buspirone HCl (Buspar) 15 mg PO BID [facility] Stop: 06/19/18 20:59 Last Admin: 05/23/18 08:10 Dose: 15 mg Chlorhexidine Gluconate (Peridex) 15 ml MT DAILY [facility] Stop: 06/16/18 08:59 Last Admin: 05/23/18 08:42 Dose: 15 ml Dextrose (Dextrose 50%) 25 - 50 ml IV UD PRN; Protocol PRN Reason: Hypoglycemia Protocol Stop: 06/14/18 11:56 Last Admin: 05/22/18 05:57 Dose: 25 ml Diclofenac Sodium (Voltaren 1% Top) 1 appln EXT QID PRN PRN Reason: Pain Stop: 06/14/18 05:48 Diltiazem HCl (Cardizem Cd) 180 mg PO BID [facility] Stop: 06/22/18 20:59 Ferrous Sulfate (Feosol) 325 mg PO BID [facility] Stop: 06/14/18 08:59 Last Admin: 05/23/18 08:09 Dose: 325 mg Glucagon (Glucagen) 1 mg IM UD PRN; Protocol PRN Reason: Hypoglycemia Protocol Stop: 06/14/18 11:56 Glucose (Glucose 40%) 15 - 30 gm PO UD PRN; Protocol PRN Reason: Hypoglycemia Protocol Stop: 06/14/18 11:56 Glucose (Dex4 Glucose) 4 - 8 tabs PO UD PRN; Protocol PRN Reason: Hypoglycemia Protocol Stop: 06/14/18 11:56 Guaifenesin (Mucinex) 1,200 mg PO Q12 [facility] Stop: 06/22/18 20:59 Heparin Sodium (Beef Lung) (Heparin Sod 10 Unit/Ml Flush) 5 ml FLUSH PRN PRN PRN Reason: Flush Stop: 06/18/18 01:30 Piperacillin Sod/Tazobactam (Sod 4.5 gm/ Dextrose) 120 mls @ 30 mls/hr IV Q8H [facility]; Protocol Stop: 05/24/18 00:00 Last Admin: 05/23/18 15:28 Dose: 30 mls/hr Methylprednisolone 40 mg/ (Syringe) 0.64 mls @ 1.5 mls/min IV Q12H [facility] Stop: 06/22/18 03:59 Last Admin: 05/23/18 15:30 Dose: 1.5 mls/min Furosemide 40 mg/ Syringe 4 mls @ 4 mls/min IV Q12 [facility] Stop: 06/22/18 20:59 Insulin Aspart (Novolog Flexpen) 0 units SC ACHS [facility]; Protocol Stop: 06/21/18 16:29 Last Admin: 05/23/18 12:00 Dose: 21 units Insulin Aspart (Novolog Flexpen) 0 units SC TODAY@0000,0400 [facility]; Protocol Stop: 05/24/18 04:01 Insulin Glargine (Lantus Solostar Pen) [address] [facility]; Protocol Stop: 06/22/18 20:59 Insulin [facility]argine (Lantus Solostar Pen) [facility] [place] [place] Protocol Stop: 06/23/18 08:59 Ketoconazole (Nizoral 2%) 1 appln EXT BID [facility] Stop: 05/25/18 08:59 Last Admin: 05/23/18 08:14 Dose: 1 appln Lactulose (Chronulac) 30 gm PO Q8H PRN PRN Reason: constipation Stop: 06/21/18 14:30 Last Admin: 05/22/18 15:55 Dose: 30 gm Mirtazapine (Remeron) 30 mg PO HS [facility] Stop: 06/14/18 20:59 Last Admin: 05/22/18 21:14 Dose: 30 mg Miscellaneous (Carbohydrates For Hypoglycemia) 15 - 30 gm PO UD PRN PRN Reason: Hypoglycemia Treatment Stop: 06/14/18 11:56 Miscellaneous Information (Consult Glycemic Management Pharmacy) 1 ea N/A UD PRN PRN Reason: Consult Stop: 06/14/18 11:56 Miscellaneous Information (Consult) 1 ea N/A UD PRN PRN Reason: Consult Stop: 05/23/18 23:59 Nitroglycerin (Nitrostat) 0.4 mg SL UD PRN PRN Reason: Chest Pain Stop: 06/14/18 05:48 Ondansetron HCl (Zofran) 4 mg IV Q6H PRN PRN Reason: Nausea Stop: 06/14/18 05:48 Last Admin: 05/16/18 14:20 Dose: 4 mg Pantoprazole Sodium (Protonix) 40 mg PO QAM [facility] Stop: 06/23/18 08:59 Polyethylene Glycol (Miralax Powder Packet) 17 gm PO DAILY PRN PRN Reason: Constipation Stop: 06/14/18 05:48 Last Admin: 05/22/18 11:35 Dose: 17 gm Potassium Chloride (Klor-Con Pwd) 20 meq PO TID [facility] Stop: 06/21/18 13:59 Last Admin: 05/23/18 13:29 Dose: 20 meq Pramipexole Dihydrochloride (Mirapex) [address] [facility] Stop: 06/14/18 20:59 Last Admin: 05/22/18 21:08 Dose: 1 mg Trazodone HCl (Desyrel) [address] [facility] Stop: 06/17/18 20:59 Last Admin: 05/22/18 21:07 Dose: 100 mg _ (1) Hyperglycemia due to type 2 diabetes mellitus Diabetes mellitus assistant terminal manager insulin use: with assistant terminal manager use Qualified Code(s) : E11.65 - Type 2 diabetes mellitus with hyperglycemia; Z79.4 - [facility] ( current) use of insulin
[2018-05-23] MEDS: ACETAMINOPHEN 325 MG TAB PO PRN (18:15)
[2018-05-23] MEDS: dilTIAZem HCL 180 MG CAPCR PO SCH (19:53)
[2018-05-23] MEDS: TRAZODONE HCL 100 MG TAB PO SCH (19:53)
[2018-05-23] MEDS: acetaZOLAMIDE 250 MG TAB PO SCH (19:54)
[2018-05-23] MEDS: guaiFENesin 600 MG TABCR PO SCH (19:55)
[2018-05-23] MEDS: PRAMIPEXOLE DIHYDROCHLO 0.5 MG TAB PO SCH (19:55)
[2018-05-23] MEDS: MIRTAZAPINE TAB 15 MG TAB PO SCH (19:56)
[2018-05-23] MEDS ORDERED: LORazepam 0.5 MG TAB PO ONE (21:15)
[2018-05-23] MEDS: INSULIN GLARGINE SOLOSTAR 100 UNITS/ML 3 ML PEN SC SCH (21:28)
--- NOTE | 2018-05-23 22:40 | Pulmonology Progress Note ---
Date of Service May 23, 2018 Assessment & Plan (1) Acute on chronic respiratory failure with hypoxia and hypercapnia: Impression: 1. Acute on chronic hypercapnic and hypoxic respiratory failure secondary to acute aspiration in addition to severe COPD. 2. Aspiration of biliary material suctioned with a bronchoscopy. Improved. 3. History of anxiety, the patient treated with multiple psychedelic medications affecting her respiratory drive as well as her cough reflex. Tolerated reduction in her psych medications, she is of Effexor, and down on trazodone 100 mg at bedtime, BuSpar 15 mg twice daily only. She seems to be much better off most of her psych medications. You may continue to to reduce her psych medications to minimum. 4. Morbid obesity with obstructive sleep apnea, BiPAP as tolerated every night standing but not as needed. 5. Atrial fibrillation. Rate controlled. 6. Diastolic heart failure. 7. History of CVA also contributing to her recurrent aspiration. Plan: 1. Continue trazodone 100 mg at bedtime, BuSpar 15 mg twice daily, taper as tolerated. 2. Oral intake. 3. Glycemic control. 4. Continue diuresis and watch for the bicarb. 5. Completed Zosyn for 7 days for aspiration. 6. Continue diltiazem. 7. Daily labs. 8. May change DuoNeb to 4 times daily. 9. Tolerating oral intake. No evidence of aspiration or recurrence. 10. Rehab placement. 11. Physical therapy. Discussed with the nursing staff, thank you for your kind referral, will follow as needed. Subjective The patient is improving, as expected, following commands answering questions, she continues to have cough with difficulty raising sputum, no shortness of breath, tolerating oral intake. Physical Exam 2 Vital Signs (Past 24 Hours): Last Vital Signs Temp 37.0 C 05/23/18 19:30 Pulse 87 05/23/18 19:30 Resp 18 05/23/18 19:30 BP 185/75 H 05/23/18 19:30 Pulse Ox 96 05/23/18 19:30 Physical Exam: Vital signs are stable, S1-S2 regular rate and rhythm, lungs with rhonchi bilaterally, no wheezing, abdomen is obese but benign, edema in the periphery. Results & Data Laboratory Results Labs were reviewed, white count are normal, hematocrit is stable, bicarb is 49. Her BUN creatinine has been stable as well.
[2018-05-24] MEDS: INSULIN ASPART 100 UNITS/ML 3 ML PEN SC SCH ×5 (03:35→21:00)
[2018-05-24 06:13] LABS: Basophils # (auto) 0.01 K/uL (0-0.2); Basophils % (auto) 0.1 %; Eosinophils # (auto) 0.01 K/uL (0-0.5); Eosinophils % (auto) 0.1 %; Hematocrit (blood only) 38.1 % (37-47); Hemoglobin 11.4 g/dL (12.0-16.0); Immature Granulocytes # (auto) 0.11 K/uL (0.00-0.02); Immature Granulocytes % (auto) 1.1 %; Lymphocytes % (auto) 4.8 %; Mean Corpuscular Hgb Conc 29.9 g/dL (32-36); Mean Corpuscular Volume 94.8 fL (80-100); Mean Platelet Volume 10.8 fL (7.4-10.4); Monocytes # (auto) 0.52 K/uL (0.11-0.59); Neutrophils # (auto) 9.17 K/uL (1.4-6.5); Neutrophils % (auto) 88.9 %; Platelet Count 182 K/uL (130-400); RDW Standard Deviation 50.8 fL (36.4-46.3); Red Blood Count 4.02 M/uL (4.2-5.4); White Blood Count 10.32 K/uL (4.8-10.8)
[2018-05-24 06:34] LABS: Alanine Aminotransferase 33 U/L (12-78); Albumin Globulin Ratio 0.7 (0.9-2); Albumin Level 2.5 gm/dl (3.4-5.0); Alkaline Phosphatase 72 U/L (45-117); Aspartate Aminotransferase 34 U/L (15-37); BUN Creatinine Ratio 35.9 (10-20); Bilirubin,Total 0.7 mg/dl (0.2-1); Blood Urea Nitrogen 32 mg/dl (7-18); Calcium 8.3 mg/dl (8.5-10.1); Carbon Dioxide 44 mmol/L (21-32); Chloride 95 mmol/L (98-107); Creatinine Clr Calc Pharmacy 64.6 ml/min; Globulin 3.7 gm/dl (2.5-4.0); Glucose 187 mg/dl (70-99); Potassium 3.6 mmol/L (3.5-5.1); Sodium 140 mmol/L (136-145); Total Protein 6.2 gm/dl (6.4-8.2)
[2018-05-24] MEDS: ALBUT/IPRATROP 3MG/0.5MG NEB 3 ML VIAL NEB SCH ×4 (07:25→19:01)
[2018-05-24] MEDS: FUROSEMIDE 40 MG in SYRINGE 0 ML IV SCH ×2 (08:00→20:25)
[2018-05-24] MEDS: POTASSIUM CHLORIDE PWD 20 MEQ PACK PO SCH (08:00)
[2018-05-24] MEDS: predniSONE 50 MG TAB PO SCH (08:00)
[2018-05-24] MEDS: PANTOprazole 40 MG TAB PO SCH (08:00)
[2018-05-24] MEDS: FERROUS SULFATE 325 MG TAB PO SCH ×2 (08:01→20:23)
[2018-05-24] MEDS: APIXABAN 5 MG TABLET PO SCH ×2 (08:01→20:23)
[2018-05-24] MEDS: acetaZOLAMIDE 250 MG TAB PO SCH ×2 (08:01→20:22)
[2018-05-24] MEDS: dilTIAZem HCL 180 MG CAPCR PO SCH ×2 (08:01→20:21)
[2018-05-24] MEDS: guaiFENesin 600 MG TABCR PO SCH ×2 (08:01→20:26)
[2018-05-24] MEDS: AMIODARONE 200 MG TAB PO SCH (08:03)
[2018-05-24] MEDS: ATORVASTATIN 40 MG TAB PO SCH (08:03)
[2018-05-24] MEDS: BusPIRone 15 MG TAB PO SCH ×2 (08:03→20:21)
[2018-05-24] MEDS: INSULIN GLARGINE SOLOSTAR 100 UNITS/ML 3 ML PEN SC SCH ×2 (08:04→20:58)
[2018-05-24] MEDS: KETOCONAZOLE 2% CR 15 GM TUBE EXT SCH ×2 (08:06→20:25)
[2018-05-24] MEDS: CHLORHEXIDINE GLUCONATE 0.12% 480 ML MT SCH (08:53)
[2018-05-24] MEDS: POTASSIUM CHLORIDE 20 MEQ TABCR PO SCH ×2 (09:06→20:24)
--- NOTE | 2018-05-24 14:24 | Palliative Care Progress Note ---
Date of Service May 24, 2018 Assessment & Plan (1) Palliative care encounter: -Patient alert today. Oriented x4. -Patient is okay with going home with hospice. Does not want aggressive/ invasive measures. -Patient has her own bipap/cpap machine that she will continue to wear. -Recommend Roxanol 5mg PO/SL Q3h as needed for SOB/air hunger. -Per hospitalist note, likely ready for discharge in next few days. (2) Acute exacerbation of chronic obstructive pulmonary disease (COPD): (3) Atrial fibrillation: (4) Cerebrovascular disease: Subjective Patient more awake and oriented today. Grandson and his family there visiting patient. Patient states, "When the good lord is ready for me, I'm ready to go." We discussed her going home with hospice, patient agreed this is her goal. Patient still has some SOB even at rest. Constitutional: + weakness Ear, Nose, Mouth, Throat: no dysphagia Respiratory: + cough, + dyspnea and + dyspnea on exertion Cardiovascular: + edema; no chest pain Gastrointestinal: no abdominal pain, no nausea and no vomiting Neurologic: no confusion Psychiatric: no depression and no anxiety Physical Exam 2 Vital Signs (Past 24 Hours): Last Vital Signs Temp 37.0 C 05/24/18 12:03 Pulse 86 05/24/18 12:03 Resp 18 05/24/18 12:03 BP 95/52 L 05/24/18 12:03 Pulse Ox 97 05/24/18 12:03 Constitutional: + ill appearing, + morbidly obese and + edematous ENMT: external ear and nose normal, oropharynx normal Neck: trachea midline, no thyromegaly Respiratory: + cough; no respiratory distress Auscultation: + rhonchi Cardiovascular: Heart Sounds: normal S1 and normal S2 Vessels: dorsalis pedis pulses present Extremities: + edema (BL pedal) Gastrointestinal (Abdomen): normal bowel sounds, soft, nontender, no hepatosplenomegaly Skin: no rashes, warm and dry Time Spent Midlevel 35 minutes with >50% of time spent at bedside with patient and family discussing condition and goals of care.
--- NOTE | 2018-05-24 14:41 | Hospitalist Progress Note ---
Date of Service May 24, 2018 Assessment & Plan (1) Acute on chronic respiratory failure with hypoxia and hypercapnia: This was present on admission Patient was intubated after aspirating on 05/16/18. During bronch, large amount of bile was removed from lung. This likely caused lung injury. weaning trial and extubation on 05/21/18, titrated down to 4L NC by the afternoon oxygen saturations continue to be stable at 4-5L discussed with patient and family that goal is 90% due to hypercapnia using BiPAP at night (2) Hypoxia: As noted above, extubated 05/21/18 breathing stable on 4LNC saturation goal is 90-92% (3) Acute exacerbation of chronic obstructive pulmonary disease (COPD): Patient initially admitted for this problem. Patient became hypercapnic and aspirated while on Bipap. lungs with diminished sounds and rhonchi, no wheezing today continue steroids, nebulizers, completed 7 days of Zosyn change to Prednisone tomorrow, 50mg daily patient would not want intubated again in the future, she is DNI, DNR (4) Hyperglycemia due to type 2 diabetes mellitus: continue Lantus and SS elevated sugars due to steroids monitor for hypoglycemia, no episodes eating well today (5) Acute on chronic diastolic (congestive) heart failure: utilizing Lasix IV, continues to diurese try to keep lungs dry after acute lung injury with aspiration follow I/O and daily weights negative fluid balance, Cr holding continue Lasix 40mg IV q12, monitor Cr and K (6) Atrial fibrillation: sinus on admission cont Diltiazem, Amiodarone Pradaxa changed to Eliquis change Diltiazem to 180mg BID which is home dose HR is controlled in the 70-80 range (7) Hypertension: HTN, HLD - cont Atorvastatin, Diltiazem, Lisinopril BP spiking to the 180's at times, will increase Lisinopril to 20mg daily from 5mg (8) Hyperlipidemia LDL goal <70: continue on atorvastatin. (9) Obstructive sleep apnea: BiPAP HS (10) Hemoptysis: On admission, however, this has not been an issue since. Currently patient is monitored. Patient does have a lung mass, which may have contributed to this problem no plans for work up at this time family and patient planning for hospice (11) Hypokalemia: low due to diuresis with Lasix K is 3.6 today will change to Potassium chloride 20mEq BID from TID (12) Metabolic alkalosis with respiratory acidosis: will utilize Diamox 250mg BID x 2 days, would not continue this rn long term care HCO3 is down to 44, repeat tomorrow (13) DVT prophylaxis: [place] keep on tele PT/OT orders plan to go home on hospice, likely here for a few more days DNR, DNI now after discussions with POA today Subjective patient says she feels short of breath but she is resting comfortably, was sleeping soundly without BiPAP when I entered room still with cough, productive HR stable on tele reviewed labs, K is normal at 3.6, Cr stable at 0.8 WBC is 10k and Hb stable no chest pain or pressure appetite is okay Review of Systems All systems reviewed & are unremarkable except as noted in HPI & below Constitutional: + fatigue and + weakness Respiratory: + cough, + dyspnea, + dyspnea on exertion and + sputum production Psychiatric: + anxiety Physical Exam 2 Vital Signs (Past 24 Hours): Last Vital Signs Temp 37.0 C 05/24/18 12:03 Pulse 86 05/24/18 12:03 Resp 18 05/24/18 12:03 BP 95/52 L 05/24/18 12:03 Pulse Ox 97 05/24/18 12:03 Constitutional: well developed, well nourished and + obese Eyes: PERRL, conjunctivae normal, anicteric sclerae ENMT: external ear and nose normal, oropharynx normal Neck: trachea midline, no thyromegaly Respiratory: normal respiratory effort and + cough; no respiratory distress Auscultation: + diminished lung sounds and + rhonchi Cardiovascular: RRR, no murmur, no edema Gastrointestinal (Abdomen): normal bowel sounds, soft, nontender, no hepatosplenomegaly Musculoskeletal: no cyanosis or clubbing, extremities motor strength 5/5 Skin: no rashes, warm and dry Neurologic: patellar DTR's 2+ bilat, sensation intact and PERRL, EOMI, accommodation nl, no face palsy, no dysarthria Psychiatric: Orientation: alert, oriented to person, oriented to place, oriented to time and cooperative Lymphatic: no cervical or axillary lymphadenopathy Results & Data Laboratory Results Laboratory Results - last 24 hr 05/23/18 05/23/18 05/23/18 15:43 20:45 23:29 WBC RBC Hgb Hct MCV MCH MCHC RDW Std Deviation RDW Coeff of Veronique Plt Count MPV Immature Gran % (Auto) Neut % (Auto) Lymph % (Auto) Brown % (Auto) Eos % (Auto) Baso % (Auto) Immature Gran # (Auto) Neut # (Auto) Lymph # (Auto) Brown # (Auto) Eos # (Auto) Baso # (Auto) Sodium Potassium Chloride Carbon Dioxide Anion Gap BUN Creatinine Est Cr Clr Drug Dosing Est GFR ( Amer) Est GFR (Non-Af Amer) BUN/Creatinine Ratio Glucose POC Glucose 113 H 204 H 148 H Calcium Total Bilirubin AST ALT Alkaline Phosphatase Total Protein Albumin Globulin Albumin/Globulin Ratio 05/24/18 05/24/18 05/24/18 03:31 05:29 05:29 WBC 10.32 RBC 4.02 L Hgb 11.4 L Hct 38.1 MCV 94.8 MCH 28.4 MCHC 29.9 L RDW Std Deviation 50.8 H RDW Coeff of Veronique 15.0 H Plt Count 182 MPV 10.8 H Immature Gran % (Auto) 1.1 Neut % (Auto) 88.9 Lymph % (Auto) 4.8 Brown % (Auto) 5.0 Eos % (Auto) 0.1 Baso % (Auto) 0.1 Immature Gran # (Auto) 0.11 H Neut # (Auto) 9.17 H Lymph # (Auto) 0.50 L Brown # (Auto) 0.52 Eos # (Auto) 0.01 Baso # (Auto) 0.01 Sodium 140 Potassium 3.6 D Chloride 95 L Carbon Dioxide 44 H* Anion Gap TNP BUN 32 H Creatinine 0.89 Est Cr Clr Drug Dosing 64.6 Est GFR ( Amer) 73.0 Est GFR (Non-Af Amer) 63.0 BUN/Creatinine Ratio 35.9 H Glucose 187 H POC Glucose 160 H Calcium 8.3 L Total Bilirubin 0.7 AST 34 ALT 33 Alkaline Phosphatase 72 Total Protein 6.2 L Albumin 2.5 L Globulin 3.7 Albumin/Globulin Ratio 0.7 L 05/24/18 05/24/18 07:19 11:26 WBC RBC Hgb Hct MCV MCH MCHC RDW Std Deviation RDW Coeff of Veronique Plt Count MPV Immature Gran % (Auto) Neut % (Auto) Lymph % (Auto) Brown % (Auto) Eos % (Auto) Baso % (Auto) Immature Gran # (Auto) Neut # (Auto) Lymph # (Auto) Brown # (Auto) Eos # (Auto) Baso # (Auto) Sodium Potassium Chloride Carbon Dioxide Anion Gap BUN Creatinine Est Cr Clr Drug Dosing Est GFR ( Amer) Est GFR (Non-Af Amer) BUN/Creatinine Ratio Glucose POC Glucose 172 H 222 H Calcium Total Bilirubin AST ALT Alkaline Phosphatase Total Protein Albumin Globulin Albumin/Globulin Ratio _ (1) Hyperglycemia due to type 2 diabetes mellitus Diabetes mellitus halfway insulin use: with halfway use Qualified Code(s) : E11.65 - Type 2 diabetes mellitus with hyperglycemia; Z79.4 - [place] ( current) use of insulin
[2018-05-24] MEDS: TRAZODONE HCL 100 MG TAB PO SCH (20:22)
[2018-05-24] MEDS: PRAMIPEXOLE DIHYDROCHLO 0.5 MG TAB PO SCH (20:25)
[2018-05-24] MEDS: MIRTAZAPINE TAB 15 MG TAB PO SCH (20:27)
[2018-05-24] MEDS: POLYETHYLENE (MIRALAX) 17 GM PACK PO PRN (23:28)
[2018-05-25] MEDS: ALBUT/IPRATROP 3MG/0.5MG NEB 3 ML VIAL NEB SCH ×2 (07:28→11:32)
[2018-05-25] MEDS: INSULIN ASPART 100 UNITS/ML 3 ML PEN SC SCH ×4 (08:03→20:32)
[2018-05-25] MEDS: ATORVASTATIN 40 MG TAB PO SCH (08:04)
[2018-05-25] MEDS: FUROSEMIDE 40 MG in SYRINGE 0 ML IV SCH ×2 (08:04→22:23)
[2018-05-25] MEDS: guaiFENesin 600 MG TABCR PO SCH (08:04)
[2018-05-25] MEDS: AMIODARONE 200 MG TAB PO SCH (08:04)
[2018-05-25] MEDS: POTASSIUM CHLORIDE 20 MEQ TABCR PO SCH ×2 (08:05→20:35)
[2018-05-25] MEDS: predniSONE 50 MG TAB PO SCH (08:05)
[2018-05-25] MEDS: PANTOprazole 40 MG TAB PO SCH (08:05)
[2018-05-25] MEDS: acetaZOLAMIDE 250 MG TAB PO SCH (08:05)
[2018-05-25] MEDS: FERROUS SULFATE 325 MG TAB PO SCH ×2 (08:05→20:37)
[2018-05-25] MEDS: dilTIAZem HCL 180 MG CAPCR PO SCH ×2 (08:06→20:29)
[2018-05-25] MEDS: APIXABAN 5 MG TABLET PO SCH ×2 (08:06→20:30)
[2018-05-25] MEDS: BusPIRone 15 MG TAB PO SCH ×2 (08:06→20:30)
[2018-05-25] MEDS: LISINOPRIL 20 MG TAB PO SCH (08:07)
[2018-05-25] MEDS: INSULIN GLARGINE SOLOSTAR 100 UNITS/ML 3 ML PEN SC SCH ×2 (08:07→20:34)
[2018-05-25] MEDS: CHLORHEXIDINE GLUCONATE 0.12% 480 ML MT SCH (08:41)
--- NOTE | 2018-05-25 11:08 | Palliative Care Progress Note ---
Date of Service May 25, 2018 Assessment & Plan (1) Palliative care encounter: -Patient alert today. Oriented x4. -Reconfirmed patient is okay with going home with hospice. Does not want aggressive/invasive measures. -POLST was completed on 05/21 with two daughters, Ragini and Madiha who share medical POA. -Patient has her own bipap/cpap machine that she will continue to wear; however , patient has not been tolerating it and taking it off. -Pt. continues to have diaphragmatic breathing - Roxanol 5mg PO/SL Q6h as needed for SOB/air hunger ordered. Low threshold to increase the frequency. Morphine allergy discussed with patient and agreed to move forward as goal is comfort. -Case management to discuss hospice agency choice. -Above discussed with following Hospitalist. (2) Acute exacerbation of chronic obstructive pulmonary disease (COPD): -Managed by supercharge repair supervisor/hospitalist -Patient with COPD on 4LNC at baseline prior to admission. -Recurrent aspiration d/t previous CVA. Likely to continue. Goal for comfort. (3) Atrial fibrillation: -Managed by ICU and Hospitalists -Pt was on Pradaxa for Afib - this was stopped d/t hemoptysis, now restarted, but on Eloquis. (4) Cerebrovascular disease: -Previous CVA, no acute changes -Due to previous CVA, recurrent aspirations -Was eval by ST in the past - based on how patient improves, would do a re-eval. Subjective Patient awake today and oriented x 4. No family present during my encounter. I reconfirmed the patients goal of returning home with hospice support and not returning to the hospital POLST form completed on 05/21 with Madiha and Ragini, who are two of her daughters and they share medical POA. Patient still has some SOB/diaphragmatic breathing even at rest. Patient has not been tolerating BiPap and takes it off. Pt understands risk of not wearing it. See Assessment and Plan for further details Constitutional: + weakness Respiratory: + cough, + dyspnea and + dyspnea on exertion Cardiovascular: + edema; no chest pain Physical Exam 2 Vital Signs (Past 24 Hours): Last Vital Signs Temp 36.8 C 05/25/18 07:17 Pulse 73 05/25/18 07:17 Resp 20 05/25/18 07:17 BP 144/73 H 05/25/18 07:17 Pulse Ox 97 05/25/18 07:17 Constitutional: + ill appearing, + morbidly obese, + disheveled and + edematous ENMT: external ear and nose normal, oropharynx normal Neck: trachea midline, no thyromegaly Respiratory: + uses accessory muscles (diaphragmatic breathing), + cough and able to speak in complete sentences; no nasal flaring and no pursed lip breathing Auscultation: + rhonchi Cardiovascular: Heart Sounds: normal S1 and normal S2 Gastrointestinal (Abdomen): normal bowel sounds, soft, nontender, no hepatosplenomegaly Inspection/Auscultation: + abdomen distended and + abdominal edema (in LE and periphery) Skin: no rashes, warm and dry Psychiatric: A+Ox3, euthymic affect Insight: good insight Judgement: good judgement Genitourinary: benedict in place Time Spent Midlevel Total time spent 35 minutes with > 50% of that time spent reviewing the chart, assessing the patient, discussing GOALS OF CARE and providing symptom management with the patient.
[2018-05-25] MEDS ORDERED: MoRPHine SULFATE 5 MG/0.25 ML UDP PO PRN (12:00)
--- NOTE | 2018-05-25 14:19 | Pharmacy Report ---
Pharmacy Glycemic Short Note 2 - Date of Service May 25, 2018 - Glycemic Short BSG Results (Last 24 hours): 05/24/18 05/24/18 05/25/18 16:49 20:57 07:39 POC Glucose 110 H 182 H 82 05/25/18 11:26 POC Glucose 122 H Outpatient Anti-diabetic Regimen: * Lantus 30 units qAM, Lantus 33 units qPM, Lispro SSI * A1c = 7.2 % 04/25/18 The patient is currently receiving: * Basal insulin: Lantus 10 units SQ QAM and 20 units SQ QPM * Correctional Insulin: Novolog Correction per scale ACHS Goal Range: Low 110 mg/dL - High 140 mg/dL Correction Factor: 12 mg/dL/unit * Prandial insulin: Per carb ratio of 1 unit per 4 grams CHO consumed Risk Factors for Insulin Resistance: * Steroids: solu medrol 40 mg IV q6 - discontinued on 05/23 - changed to Prednisone 50mg PO daily starting yesterday * Diet: Type 2 DM - Assessment & Plan Assessment & Plan: * Blood sugars mostly at goal, will loosen CF and CR for tapering steroids to prevent hypoglycemia. PLAN FOR INPATIENT GLYCEMIC CONTROL: * Basal insulin * Lantus 10 units SQ AM + 20 units Q PM * Bolus insulin - * NovoLog per scale ACHS and at 00+04 tonight due to changing BSG pattern * Goal Range: Low 110 mg/dL - High 140 mg/dL * LOOSEN: Correction Factor: 18 mg/dL/unit * LOOSEN: Nutritional / Prandial insulin per carb ratio of 1 unit per 6 grams CHO consumed * Please note that the plan above was derived based on current level of insulin resistance and hospital stress. These recommendations are appropriate for inpatient admission only. Plan of care upon discharge will need to be reassessed to avoid potential outpatient hypo/hyperglycemia.
--- NOTE | 2018-05-25 16:38 | Hospitalist Progress Note ---
Date of Service May 25, 2018 Assessment & Plan (1) Acute on chronic respiratory failure with hypoxia and hypercapnia: This was present on admission Patient was intubated after aspirating on 05/16/18. During bronch, large amount of bile was removed from lung. This likely caused lung injury. weaning trial and extubation on 05/21/18, titrated down to 4L NC by the afternoon oxygen saturations continue to be stable at 4L discussed with patient and family that goal is 90% due to hypercapnia using BiPAP at night will utilize Roxanol for anxiety and dyspnea associated with BiPAP and breathing in general (2) Hypoxia: As noted above, extubated 05/21/18 breathing stable on 4LNC saturation goal is 90-92% lungs still with some rhonchi but overall breath sounds improving (3) Acute exacerbation of chronic obstructive pulmonary disease (COPD): Patient initially admitted for this problem. Patient became hypercapnic and aspirated while on Bipap. lungs with diminished sounds and rhonchi, no wheezing today, no crackles or rales continue nebulizers, completed 7 days of Zosyn continue Prednisone 50mg daily, plan a slow taper on discharge patient would not want intubated again in the future, she is DNI, DNR (4) Hyperglycemia due to type 2 diabetes mellitus: continue Lantus and SS elevated sugars due to steroids monitor for hypoglycemia, no episodes eating well today sugars well controlled (5) Acute on chronic diastolic (congestive) heart failure: utilizing Lasix IV, continues to diurese try to keep lungs dry after acute lung injury with aspiration follow I/O and daily weights negative 4 liters for the day, negative 10 liters for the admission, Cr holding continue Lasix 40mg IV q12, monitor Cr and K (6) Atrial fibrillation: sinus on admission cont Diltiazem, Amiodarone Pradaxa changed to Eliquis continue Diltiazem 180mg BID which is home dose HR is controlled in the 70-80 range transfer to medical floor (7) Hypertension: HTN, HLD - cont Atorvastatin, Diltiazem, Lisinopril BP spiking to the 180's at times, will increase Lisinopril to 20mg daily monitor for response (8) Hyperlipidemia LDL goal <70: continue on atorvastatin. (9) Obstructive sleep apnea: BiPAP HS (10) Hemoptysis: On admission, however, this has not been an issue since. Currently patient is monitored. Patient does have a lung mass, which may have contributed to this problem no plans for work up at this time family and patient planning for hospice (11) Hypokalemia: low due to diuresis with Lasix K is 3.6 today will change to Potassium chloride 20mEq BID from TID (12) Metabolic alkalosis with respiratory acidosis: will utilize Diamox 250mg BID x 2 days, would not continue this assisted last dose was this evening check HCO3 tomorrow (13) DVT prophylaxis: [place] PT/OT orders plan to go home on hospice, likely here for a few more days DNR, DNI will have family meeting on 05/27 with all of her children to discuss plan Subjective patient experiencing some dyspnea and anxiety associated with the BiPAP palliative care suggested using Roxanol, patient in agreement patient is eating better, more alert she denies pain she moved her bowels, benedict still in place, making large amounts of urine in response to Lasix reviewed labs updated two daughters who are the POA at the bedside said that they would like to have a family meeting with the whole family scheduled for Monday at 230pm discussed transfer, they are in agreement Review of Systems All systems reviewed & are unremarkable except as noted in HPI & below Constitutional: + fatigue and + weakness; no fever and no sweats Respiratory: + cough, + dyspnea, + dyspnea on exertion and + sputum production Psychiatric: + anxiety Physical Exam 2 Vital Signs (Past 24 Hours): Last Vital Signs Temp 36.8 C 05/25/18 15:21 Pulse 72 05/25/18 15:21 Resp 20 05/25/18 15:21 BP 129/75 05/25/18 15:21 Pulse Ox 95 05/25/18 15:21 Constitutional: well developed, well nourished and + obese Eyes: PERRL, conjunctivae normal, anicteric sclerae ENMT: external ear and nose normal, oropharynx normal Neck: trachea midline, no thyromegaly Respiratory: normal respiratory effort and + cough; no respiratory distress Auscultation: + diminished lung sounds and + rhonchi Cardiovascular: RRR, no murmur, no edema Gastrointestinal (Abdomen): normal bowel sounds, soft, nontender, no hepatosplenomegaly Musculoskeletal: no cyanosis or clubbing, extremities motor strength 5/5 Skin: no rashes, warm and dry Neurologic: patellar DTR's 2+ bilat, sensation intact and PERRL, EOMI, accommodation nl, no face palsy, no dysarthria Psychiatric: Orientation: alert, oriented to person, oriented to place, oriented to time and cooperative Lymphatic: no cervical or axillary lymphadenopathy Results & Data Laboratory Results Laboratory Results - last 24 hr 05/24/18 05/24/18 05/25/18 16:49 20:57 07:39 POC Glucose 110 H 182 H 82 05/25/18 11:26 POC Glucose 122 H Medications Administered Current Inpatient Medications Acetaminophen (Tylenol) 650 mg PO Q4H PRN PRN Reason: Pain or Fever Stop: 06/14/18 05:48 Last Admin: 05/23/18 18:15 Dose: 650 mg Acetazolamide (Diamox) 250 mg PO BID [facility] Stop: 05/25/18 20:59 Last Admin: 05/25/18 08:05 Dose: 250 mg Albuterol (Ventolin 0.083% 2.5mg/3ml) 2.5 mg NEB Q4H PRN PRN Reason: Shortness Of Breath Stop: 06/14/18 05:48 Amiodarone HCl (Cordarone) 200 mg PO DAILY [facility] Stop: 06/14/18 08:59 Last Admin: 05/25/18 08:04 Dose: 200 mg Apixaban (Eliquis) 5 mg PO BID [facility] Stop: 06/19/18 20:59 Last Admin: 05/25/18 08:06 Dose: 5 mg Atorvastatin Calcium (Lipitor) 80 mg PO DAILY [facility] Stop: 06/14/18 08:59 Last Admin: 05/25/18 08:04 Dose: 80 mg Buspirone HCl (Buspar) 15 mg PO BID [facility] Stop: 06/19/18 20:59 Last Admin: 05/25/18 08:06 Dose: 15 mg Chlorhexidine Gluconate (Peridex) 15 ml MT DAILY [facility] Stop: 06/16/18 08:59 Last Admin: 05/25/18 08:41 Dose: Not Given Dextrose (Dextrose 50%) 25 - 50 ml IV UD PRN; Protocol PRN Reason: Hypoglycemia Protocol Stop: 06/14/18 11:56 Last Admin: 05/22/18 05:57 Dose: 25 ml Diclofenac Sodium (Voltaren 1% Top) 1 appln EXT QID PRN PRN Reason: Pain Stop: 06/14/18 05:48 Diltiazem HCl (Cardizem Cd) 180 mg PO BID [facility] Stop: 06/22/18 20:59 Last Admin: 05/25/18 08:06 Dose: 180 mg Ferrous Sulfate (Feosol) 325 mg PO BID [facility] Stop: 06/14/18 08:59 Last Admin: 05/25/18 08:05 Dose: 325 mg Glucagon (Glucagen) 1 mg IM UD PRN; Protocol PRN Reason: Hypoglycemia Protocol Stop: 06/14/18 11:56 Glucose (Glucose 40%) 15 - 30 gm PO UD PRN; Protocol PRN Reason: Hypoglycemia Protocol Stop: 06/14/18 11:56 Glucose (Dex4 Glucose) 4 - 8 tabs PO UD PRN; Protocol PRN Reason: Hypoglycemia Protocol Stop: 06/14/18 11:56 Heparin Sodium (Beef Lung) (Heparin Sod 10 Unit/Ml Flush) 5 ml FLUSH PRN PRN PRN Reason: Flush Stop: 06/18/18 01:30 Last Admin: 05/24/18 23:28 Dose: 5 ml Furosemide 40 mg/ Syringe 4 mls @ 4 mls/min IV Q12 [facility] Stop: 06/22/18 20:59 Last Admin: 05/25/18 08:04 Dose: 4 mls/min Insulin Aspart (Novolog Flexpen) 0 units SC ACHS [facility]; Protocol Stop: 06/21/18 16:29 Last Admin: 05/25/18 12:12 Dose: 12 units Insulin Glargine (Lantus Solostar Pen) 20 units SC HS [facility]; Protocol Stop: 06/22/18 20:59 Last Admin: 05/24/18 20:58 Dose: 20 units Insulin Glargine (Lantus Solostar Pen) 10 units SC QAM [facility]; Protocol Stop: 06/23/18 08:59 Last Admin: 05/25/18 08:07 Dose: 10 units Lactulose (Chronulac) 30 gm PO Q8H PRN PRN Reason: constipation Stop: 06/21/18 14:30 Last Admin: 05/22/18 15:55 Dose: 30 gm Lisinopril (Zestril) 20 mg PO QAM [facility] Stop: 06/24/18 08:59 Last Admin: 05/25/18 08:07 Dose: 20 mg Mirtazapine (Remeron) 30 mg PO HS [facility] Stop: 06/14/18 20:59 Last Admin: 05/24/18 20:27 Dose: 30 mg Miscellaneous (Carbohydrates For Hypoglycemia) 15 - 30 gm PO UD PRN PRN Reason: Hypoglycemia Treatment Stop: 06/14/18 11:56 Miscellaneous Information (Consult Glycemic Management Pharmacy) 1 ea N/A UD PRN PRN Reason: Consult Stop: 06/14/18 11:56 Morphine Sulfate (Roxanol) 5 mg PO Q6H PRN PRN Reason: Pain Stop: 06/08/18 11:59 Nitroglycerin (Nitrostat) 0.4 mg SL UD PRN PRN Reason: Chest Pain Stop: 06/14/18 05:48 Ondansetron HCl (Zofran) 4 mg IV Q6H PRN PRN Reason: Nausea Stop: 06/14/18 05:48 Last Admin: 05/16/18 14:20 Dose: 4 mg [facility]oprazole [facility]) [facility] Stop: 06/23/18 08:59 Last Admin: 05/25/18 08:05 Dose: 40 mg Polyethylene Glycol (Miralax Powder Packet) 17 gm PO DAILY PRN PRN Reason: Constipation Stop: 06/14/18 05:48 Last Admin: 05/24/18 23:28 Dose: 17 gm Potassium Chloride (Klor-Con M20) 20 meq PO BID [facility] Stop: 06/23/18 08:59 Last Admin: 05/25/18 08:05 Dose: 20 meq Pramipexole Dihydrochloride (Mirapex) 1 mg PO [facility] Stop: 06/14/18 20:59 Last Admin: 05/24/18 20:25 Dose: 1 mg Prednisone (Prednisone) 50 mg PO DAILY [facility] Stop: 06/23/18 08:59 Last Admin: 05/25/18 08:05 Dose: 50 mg Trazodone HCl (Desyrel) 100 mg PO [facility] Stop: 06/17/18 20:59 Last Admin: 05/24/18 20:22 Dose: 100 mg _ (1) Hyperglycemia due to type 2 diabetes mellitus Diabetes mellitus assisted insulin use: with oysterman use Qualified Code(s) : E11.65 - Type 2 diabetes mellitus with hyperglycemia; Z79.4 - long term care pharmacist ( current) use of insulin
[2018-05-25] MEDS: MIRTAZAPINE TAB 15 MG TAB PO SCH (20:30)
[2018-05-25] MEDS: PRAMIPEXOLE DIHYDROCHLO 0.5 MG TAB PO SCH (20:33)
[2018-05-25] MEDS: TRAZODONE HCL 100 MG TAB PO SCH (20:35)
[2018-05-26 06:53] LABS: Hematocrit (blood only) 39.6 % (37-47); Hemoglobin 11.9 g/dL (12.0-16.0); Mean Corpuscular Hgb Conc 30.1 g/dL (32-36); Mean Corpuscular Volume 94.5 fL (80-100); Mean Platelet Volume 10.9 fL (7.4-10.4); Platelet Count 197 K/uL (130-400); RDW Coefficient of Variation 15.2 % (11.5-14.5); RDW Standard Deviation 51.4 fL (36.4-46.3); Red Blood Count 4.19 M/uL (4.2-5.4); White Blood Count 13.05 K/uL (4.8-10.8)
[2018-05-26 07:29] LABS: BUN Creatinine Ratio 32.1 (10-20); Calcium 8.8 mg/dl (8.5-10.1); Creatinine Clr Calc Pharmacy 50.1 ml/min; Est GFR (African American) 55.9; Est GFR (Non-African American) 48.2; Potassium 3.8 mmol/L (3.5-5.1)
[2018-05-26] MEDS: APIXABAN 5 MG TABLET PO SCH ×2 (08:04→20:56)
[2018-05-26] MEDS: LISINOPRIL 20 MG TAB PO SCH (08:04)
[2018-05-26] MEDS: BusPIRone 15 MG TAB PO SCH ×2 (08:04→20:55)
[2018-05-26] MEDS: FERROUS SULFATE 325 MG TAB PO SCH ×2 (08:04→20:59)
[2018-05-26] MEDS: ATORVASTATIN 40 MG TAB PO SCH (08:04)
[2018-05-26] MEDS: predniSONE 50 MG TAB PO SCH (08:04)
[2018-05-26] MEDS: AMIODARONE 200 MG TAB PO SCH (08:04)
[2018-05-26] MEDS: PANTOprazole 40 MG TAB PO SCH (08:05)
[2018-05-26] MEDS: dilTIAZem HCL 180 MG CAPCR PO SCH ×2 (08:08→20:57)
[2018-05-26] MEDS: POTASSIUM CHLORIDE 20 MEQ TABCR PO SCH ×2 (08:09→20:49)
[2018-05-26] MEDS: FUROSEMIDE 40 MG in SYRINGE 0 ML IV SCH ×2 (09:24→20:57)
[2018-05-26] MEDS: INSULIN ASPART 100 UNITS/ML 3 ML PEN SC SCH ×4 (09:31→21:02)
[2018-05-26] MEDS: CHLORHEXIDINE GLUCONATE 0.12% 480 ML MT SCH ×2 (09:32→09:34)
--- NOTE | 2018-05-26 15:08 | Pharmacy Report ---
Pharmacy Glycemic Short Note 2 - Date of Service May 26, 2018 - Glycemic Short BSG Results (Last 24 hours): 05/25/18 05/25/18 05/26/18 16:55 20:26 05:52 Glucose 90 POC Glucose 120 H 260 H 05/26/18 05/26/18 05/26/18 07:54 07:56 08:01 Glucose POC Glucose 63 L* 97 81 Outpatient Anti-diabetic Regimen: * Lantus 30 units qAM, Lantus 33 units qPM, Lispro SSI * A1c = 7.2 % 04/25/18 Risk Factors for Insulin Resistance: * Steroids: Prednisone 50mg PO daily * Diet: Type 2 DM Assessment & Plan: * Lucie received 72 units of insulin yesterday (30 units of basal/42 units of bolus) with the majority of BSGs at goal * Novolog correction factor and carb ratio were loosened from 04/17 to 30/10 yesterday starting with dinner (d/t transition from IV steroids to po steroid). Since then, post prandial BSGs have been elevated. I will tighten to 15/5 today. * Fasting BSG of 63 mg/dL is below goal, therefore AM lantus dose was held. Will reassess need for AM dose on 05/27. PLAN FOR INPATIENT GLYCEMIC CONTROL: * Basal insulin * Lantus 10 units SQ qAM - on hold * Lantus 20 units SQ qPM * Bolus insulin - tighten * NovoLog per scale ACHS and at 00+04 tonight due to changing BSG pattern * Goal Range: Low 110 mg/dL - High 140 mg/dL * LOOSEN: Correction Factor: 15 mg/dL/unit * LOOSEN: Nutritional / Prandial insulin per carb ratio of 1 unit per 5 grams CHO consumed * Please note that the plan above was derived based on current level of insulin resistance and hospital stress. These recommendations are appropriate for inpatient admission only. Plan of care upon discharge will need to be reassessed to avoid potential outpatient hypo/hyperglycemia.
--- NOTE | 2018-05-26 15:29 | Hospitalist Progress Note ---
Date of Service May 26, 2018 Assessment & Plan (1) Acute on chronic respiratory failure with hypoxia and hypercapnia: This was present on admission Patient was intubated after aspirating on 05/16/18. During bronch, large amount of bile was removed from lung. This likely caused lung injury. weaning trial and extubation on 05/21/18, titrated down to 4L NC by the afternoon oxygen saturations continue to be stable at 4L discussed with patient and family that goal is 90% due to hypercapnia using BiPAP at night will utilize Roxanol for anxiety and dyspnea associated with BiPAP and breathing in general per patient's request, will try some Ativan, 0.5mg tonight for anxiety while on BiPAP patient wants to be comfortable (2) Hypoxia: As noted above, extubated 05/21/18 breathing stable on 4LNC saturation goal is 90-92% lungs continue to have rhonchi, weak cough, difficult time bringing up secretions (3) Acute exacerbation of chronic obstructive pulmonary disease (COPD): Patient initially admitted for this problem. Patient became hypercapnic and aspirated while on Bipap. lungs with diminished sounds and rhonchi, no wheezing today, no crackles or rales continue nebulizers, completed 7 days of Zosyn continue Prednisone 50mg daily, plan a slow taper on discharge patient would not want intubated again in the future, she is DNI, DNR (4) Hyperglycemia due to type 2 diabetes mellitus: continue Lantus and SS elevated sugars due to steroids monitor for hypoglycemia, no episodes eating well today sugars well controlled (5) Acute on chronic diastolic (congestive) heart failure: utilizing Lasix IV, continues to diurese try to keep lungs dry after acute lung injury with aspiration follow I/O and daily weights negative 12.5 liters for the admission, Cr holding continue Lasix 40mg IV q12, monitor Cr and K (6) Atrial fibrillation: sinus on admission cont Diltiazem, Amiodarone Pradaxa changed to Eliquis continue Diltiazem 180mg BID which is home dose HR is controlled in the 70-80 range (7) Hypertension: HTN, HLD - cont Atorvastatin, Diltiazem, Lisinopril lisinopril increased to 20mg (8) Hyperlipidemia LDL goal <70: continue on atorvastatin. (9) Obstructive sleep apnea: BiPAP HS (10) Hemoptysis: On admission, however, this has not been an issue since. Currently patient is monitored. Patient does have a lung mass, which may have contributed to this problem no plans for work up at this time family and patient planning for hospice (11) Hypokalemia: low due to diuresis with Lasix K is 3.8 today will continue Potassium chloride 20mEq BID from TID (12) Metabolic alkalosis with respiratory acidosis: will utilize Diamox 250mg BID x 2 days, would not continue this halfway last dose was this evening HCO3 down to 40 today (13) DVT prophylaxis: [facility] PT/OT orders plan to go home on hospice, likely here for a few more days DNR, DNI will have family meeting on 05/27 with all of her children to discuss plan Subjective patient doing well, resting in bed, breathing stable visiting with her family in the afternoon her only request is something to help her sleep while on the BiPAP, not tolerating well will try some Ativan (takes at home) discussed plan for family meeting tomorrow, will discuss DNR, plans for hospice Review of Systems All systems reviewed & are unremarkable except as noted in HPI & below Constitutional: + fatigue and + weakness; no fever and no sweats Respiratory: + cough, + dyspnea and + sputum production Psychiatric: + anxiety Physical Exam 2 Vital Signs (Past 24 Hours): Last Vital Signs Temp 36.8 C 05/26/18 08:06 Pulse 74 05/26/18 08:06 Resp 20 05/26/18 08:06 BP 168/77 H 05/26/18 08:06 Pulse Ox 98 05/26/18 08:06 Constitutional: well developed, well nourished and + obese Eyes: PERRL, conjunctivae normal, anicteric sclerae ENMT: external ear and nose normal, oropharynx normal Neck: trachea midline, no thyromegaly Respiratory: normal respiratory effort and + cough; no respiratory distress Auscultation: + diminished lung sounds and + rhonchi Cardiovascular: RRR, no murmur, no edema Gastrointestinal (Abdomen): normal bowel sounds, soft, nontender, no hepatosplenomegaly Musculoskeletal: no cyanosis or clubbing, extremities motor strength 5/5 Skin: no rashes, warm and dry Neurologic: patellar DTR's 2+ bilat, sensation intact and PERRL, EOMI, accommodation nl, no face palsy, no dysarthria Psychiatric: Orientation: alert, oriented to person, oriented to place, oriented to time and cooperative Lymphatic: no cervical or axillary lymphadenopathy Results & Data Laboratory Results Laboratory Results - last 24 hr 05/25/18 05/25/18 05/26/18 16:55 20:26 05:52 WBC 13.05 H RBC 4.19 L Hgb 11.9 L Hct 39.6 MCV 94.5 MCH 28.4 MCHC 30.1 L RDW Std Deviation 51.4 H RDW Coeff of Veronique 15.2 H Plt Count 197 MPV 10.9 H Sodium Potassium Chloride Carbon Dioxide Anion Gap BUN Creatinine Est Cr Clr Drug Dosing Est GFR ( Amer) Est GFR (Non-Af Amer) BUN/Creatinine Ratio Glucose POC Glucose 120 H 260 H Calcium 05/26/18 05/26/18 05/26/18 05:52 07:54 07:56 WBC RBC Hgb Hct MCV MCH MCHC RDW Std Deviation RDW Coeff of Veronique Plt Count MPV Sodium 143 Potassium 3.8 Chloride 98 Carbon Dioxide 40 H Anion Gap 4.0 BUN 36 H Creatinine 1.11 Est Cr Clr Drug Dosing 50.1 Est GFR ( Amer) 55.9 Est GFR (Non-Af Amer) 48.2 BUN/Creatinine Ratio 32.1 H Glucose 90 POC Glucose 63 L* 97 Calcium 8.8 05/26/18 08:01 WBC RBC Hgb Hct MCV MCH MCHC RDW Std Deviation RDW Coeff of Veronique Plt Count MPV Sodium Potassium Chloride Carbon Dioxide Anion Gap BUN Creatinine Est Cr Clr Drug Dosing Est GFR ( Amer) Est GFR (Non-Af Amer) BUN/Creatinine Ratio Glucose POC Glucose 81 Calcium Medications Administered Current Inpatient Medications Acetaminophen (Tylenol) 650 mg PO Q4H PRN PRN Reason: Pain or Fever Stop: 06/14/18 05:48 Last Admin: 05/23/18 18:15 Dose: 650 mg Albuterol (Ventolin 0.083% 2.5mg/3ml) 2.5 mg NEB Q4H PRN PRN Reason: Shortness Of Breath Stop: 06/14/18 05:48 Amiodarone HCl (Cordarone) 200 mg PO DAILY [facility] Stop: 06/14/18 08:59 Last Admin: 05/26/18 08:04 Dose: 200 mg Apixaban (Eliquis) 5 mg PO BID [facility] Stop: 06/19/18 20:59 Last Admin: 05/26/18 08:04 Dose: 5 mg Atorvastatin Calcium (Lipitor) 80 mg PO DAILY [facility] Stop: 06/14/18 08:59 Last Admin: 05/26/18 08:04 Dose: 80 mg Buspirone HCl (Buspar) 15 mg PO BID [facility] Stop: 06/19/18 20:59 Last Admin: 05/26/18 08:04 Dose: 15 mg Chlorhexidine Gluconate (Peridex) 15 ml MT DAILY [facility] Stop: 06/16/18 08:59 Last Admin: 05/26/18 09:34 Dose: 15 ml Dextrose (Dextrose 50%) 25 - 50 ml IV UD PRN; Protocol PRN Reason: Hypoglycemia Protocol Stop: 06/14/18 11:56 Last Admin: 05/22/18 05:57 Dose: 25 ml Diclofenac Sodium (Voltaren 1% Top) 1 appln EXT QID PRN PRN Reason: Pain Stop: 06/14/18 05:48 Diltiazem HCl (Cardizem Cd) 180 mg PO BID [facility] Stop: 06/22/18 20:59 Last Admin: 05/26/18 08:08 Dose: 180 mg Ferrous Sulfate (Feosol) 325 mg PO BID [facility] Stop: 06/14/18 08:59 Last Admin: 05/26/18 08:04 Dose: 325 mg Glucagon (Glucagen) 1 mg IM UD PRN; Protocol PRN Reason: Hypoglycemia Protocol Stop: 06/14/18 11:56 Glucose (Glucose 40%) 15 - 30 gm PO UD PRN; Protocol PRN Reason: Hypoglycemia Protocol Stop: 06/14/18 11:56 Glucose (Dex4 Glucose) 4 - 8 tabs PO UD PRN; Protocol PRN Reason: Hypoglycemia Protocol Stop: 06/14/18 11:56 Heparin Sodium (Beef Lung) (Heparin Sod 10 Unit/Ml Flush) 5 ml FLUSH PRN PRN PRN Reason: Flush Stop: 06/18/18 01:30 Last Admin: 05/26/18 05:51 Dose: 15 ml Furosemide 40 mg/ Syringe 4 mls @ 4 mls/min IV Q12 [facility] Stop: 06/22/18 20:59 Last Admin: 05/26/18 09:24 Dose: 4 mls/min Insulin Aspart (Novolog Flexpen) 0 units SC ACHS [facility]; Protocol Stop: 06/21/18 16:29 Last Admin: 05/26/18 13:18 Dose: 11 units Insulin Glargine (Lantus Solostar Pen) 20 units SC HS [facility]; Protocol Stop: 06/22/18 20:59 Last Admin: 05/25/18 20:34 Dose: 20 units Insulin Glargine (Lantus Solostar Pen) 10 units SC QAM [facility]; Protocol Stop: 06/23/18 08:59 Last Admin: 05/25/18 08:07 Dose: 10 units Lactulose (Chronulac) 30 gm PO Q8H PRN PRN Reason: constipation Stop: 06/21/18 14:30 Last Admin: 05/22/18 15:55 Dose: 30 gm Lisinopril (Zestril) 20 mg PO QAM [facility] Stop: 06/24/18 08:59 Last Admin: 05/26/18 08:04 Dose: 20 mg Lorazepam (Ativan) 0.5 mg PO HS PRN PRN Reason: Anxiety Stop: 06/25/18 14:01 Mirtazapine (Remeron) 30 mg PO HS [facility] Stop: 06/14/18 20:59 Last Admin: 05/25/18 20:30 Dose: 30 mg Miscellaneous (Carbohydrates For Hypoglycemia) 15 - 30 gm PO UD PRN PRN Reason: Hypoglycemia Treatment Stop: 06/14/18 11:56 Miscellaneous Information (Consult Glycemic Management Pharmacy) 1 ea N/A UD PRN PRN Reason: Consult Stop: 06/14/18 11:56 Morphine Sulfate (Roxanol) 5 mg PO Q6H PRN PRN Reason: Pain Stop: 06/08/18 11:59 Nitroglycerin (Nitrostat) 0.4 mg SL UD PRN PRN Reason: Chest Pain Stop: 06/14/18 05:48 Ondansetron HCl (Zofran) 4 mg IV Q6H PRN PRN Reason: Nausea Stop: 06/14/18 05:48 Last Admin: 05/16/18 14:20 Dose: 4 mg Pantoprazole Sodium (Protonix) [facility] [place] Stop: 06/23/18 08:59 Last Admin: 05/26/18 08:05 Dose: 40 mg Polyethylene Glycol (Miralax Powder Packet) 17 gm PO DAILY PRN PRN Reason: Constipation Stop: 06/14/18 05:48 Last Admin: 05/24/18 23:28 Dose: 17 gm Potassium Chloride (Klor-Con M20) 20 meq PO BID [facility] Stop: 06/23/18 08:59 Last Admin: 05/26/18 08:09 Dose: 20 meq Pramipexole Dihydrochloride (Mirapex) 1 mg PO [facility] Stop: 06/14/18 20:59 Last Admin: 05/25/18 20:33 Dose: 1 mg Prednisone (Prednisone) 50 mg PO DAILY [facility] Stop: 06/23/18 08:59 Last Admin: 05/26/18 08:04 Dose: 50 mg Trazodone HCl (Desyrel) 100 mg PO [facility] Stop: 06/17/18 20:59 Last Admin: 05/25/18 20:35 Dose: 100 mg _ (1) Hyperglycemia due to type 2 diabetes mellitus Diabetes mellitus halfway insulin use: with observatory director use Qualified Code(s) : E11.65 - Type 2 diabetes mellitus with hyperglycemia; Z79.4 - district administrative assistant ( current) use of insulin
[2018-05-26] MEDS: ALBUTEROL 0.083% NEBU SOLN 3 ML VIAL NEB PRN (20:44)
[2018-05-26] MEDS: MIRTAZAPINE TAB 15 MG TAB PO SCH (20:56)
[2018-05-26] MEDS: TRAZODONE HCL 100 MG TAB PO SCH (20:58)
[2018-05-26] MEDS: PRAMIPEXOLE DIHYDROCHLO 0.5 MG TAB PO SCH (20:58)
[2018-05-26] MEDS: INSULIN GLARGINE SOLOSTAR 100 UNITS/ML 3 ML PEN SC SCH (21:01)
[2018-05-26] MEDS: LORazepam 0.5 MG TAB PO PRN (23:05)
[2018-05-27] MEDS: ALBUTEROL 0.083% NEBU SOLN 3 ML VIAL NEB PRN ×2 (07:44→12:27)
[2018-05-27] MEDS: dilTIAZem HCL 180 MG CAPCR PO SCH ×2 (08:46→20:25)
[2018-05-27] MEDS: FUROSEMIDE 80 MG in SYRINGE 0 ML IV SCH ×2 (08:46→20:23)
[2018-05-27] MEDS: predniSONE 50 MG TAB PO SCH (08:46)
[2018-05-27] MEDS: POTASSIUM CHLORIDE 20 MEQ TABCR PO SCH ×2 (08:47→20:25)
[2018-05-27] MEDS: ATORVASTATIN 40 MG TAB PO SCH (08:47)
[2018-05-27] MEDS: LISINOPRIL 20 MG TAB PO SCH (08:47)
[2018-05-27] MEDS: APIXABAN 5 MG TABLET PO SCH ×2 (08:47→20:26)
[2018-05-27] MEDS: CHLORHEXIDINE GLUCONATE 0.12% 480 ML MT SCH (08:47)
[2018-05-27] MEDS: AMIODARONE 200 MG TAB PO SCH (08:47)
[2018-05-27] MEDS: PANTOprazole 40 MG TAB PO SCH (08:47)
[2018-05-27] MEDS: BusPIRone 15 MG TAB PO SCH ×2 (08:48→20:24)
[2018-05-27] MEDS: FERROUS SULFATE 325 MG TAB PO SCH ×2 (08:48→20:22)
[2018-05-27] MEDS: INSULIN ASPART 100 UNITS/ML 3 ML PEN SC SCH ×4 (08:49→20:31)
--- NOTE | 2018-05-27 10:34 | Pharmacy Report ---
Pharmacy Glycemic Short Note 2 - Date of Service May 27, 2018 - Glycemic Short BSG Results (Last 24 hours): 05/26/18 05/26/18 05/26/18 11:57 16:43 20:04 POC Glucose 198 H 242 H 318 H 05/27/18 08:08 POC Glucose 109 H Outpatient Anti-diabetic Regimen: * Lantus 30 units qAM, Lantus 33 units qPM, Lispro SSI * A1c = 7.2 % 04/25/18 Risk Factors for Insulin Resistance: * Steroids: Prednisone 50mg PO daily * Diet: Type 2 DM Assessment & Plan: * Lucie received 67 units of insulin yesterday (20 units of basal/47 units of bolus) * Post prandial BSGs are elevated despite tightening CF and CR yesterday afternoon. Dinner and HS BSGs are the highest due to prednisone peaking. I will further tighten CF and CR with lunch and dinner only in an attempt to combat steroid induced hyperglycemia. * Fasting BSG of 109 mg/dL is at goal. Basal dose was reduced significantly yesterday (~33%). I suspect fasting will continue to trend upward, therefore I will conservatively increase dose today. PLAN FOR INPATIENT GLYCEMIC CONTROL: * Basal insulin - slgiht increase * Lantus 25 units SQ qPM * Bolus insulin - tighten CF/CR with lunch and dinner * NovoLog per scale ACHS * Goal Range: Low 120 mg/dL - High 160 mg/dL Breakfast and HS: * Correction Factor: 15 mg/dL/unit * Nutritional / Prandial insulin per carb ratio of 1 unit per 5 grams CHO consumed Lunch and dinner: * Correction Factor: 12 mg/dL/unit * Nutritional / Prandial insulin per carb ratio of 1 unit per 4 grams CHO consumed * Please note that the plan above was derived based on current level of insulin resistance and hospital stress. These recommendations are appropriate for inpatient admission only. Plan of care upon discharge will need to be reassessed to avoid potential outpatient hypo/hyperglycemia. PLAN FOR DISCHARGE: * A1c of 6.8% is at goal * It is reasonable to resume home regimen on discharge as long as patient does not report frequent hypoglycemia (she has required significantly less Lantus during admission compared to home dose despite being on steroids)
--- NOTE | 2018-05-27 16:12 | Hospitalist Progress Note ---
Date of Service May 27, 2018 Assessment & Plan (1) Acute on chronic respiratory failure with hypoxia and hypercapnia: This was present on admission Patient was intubated after aspirating on 05/16/18. During bronch, large amount of bile was removed from lung. This likely caused lung injury. weaning trial and extubation on 05/21/18, titrated down to 4L NC by the afternoon oxygen saturations continue to be stable at 3-4L discussed with patient and family that goal is 90% due to hypercapnia using BiPAP at night if she can tolerate, typically maybe 1-2 hours will utilize Roxanol for anxiety and dyspnea associated with BiPAP and breathing in general can try Ativan, 0.5mg at night for anxiety while on BiPAP patient wants to be comfortable (2) Hypoxia: As noted above, extubated 05/21/18 breathing stable on 4LNC saturation goal is 90-92% lungs continue to have rhonchi, weak cough, difficult time bringing up secretions (3) Acute exacerbation of chronic obstructive pulmonary disease (COPD): Patient initially admitted for this problem. Patient became hypercapnic and aspirated while on Bipap. lungs with diminished sounds and rhonchi, no wheezing today, no crackles or rales continue nebulizers, completed 7 days of Zosyn continue Prednisone 50mg daily, plan a slow taper on discharge would recommend decreasing by 10mg every 5 days patient would not want intubated again in the future, she is DNI, DNR she explained this to her children in her own words today (4) Hyperglycemia due to type 2 diabetes mellitus: continue Lantus and SS elevated sugars due to steroids monitor for hypoglycemia, no episodes eating well today sugars well controlled (5) Acute on chronic diastolic (congestive) heart failure: utilizing Lasix IV, continues to diurese try to keep lungs dry after acute lung injury with aspiration follow I/O and daily weights negative 14 liters for the admission, Cr holding increased Lasix to 80mg IV q12 today due to some increased rales in the morning check BMP tomorrow to make sure Cr holding try to keep lungs as dry as possibe prior to discharge (6) Atrial fibrillation: sinus on admission cont Diltiazem, Amiodarone Pradaxa changed to Eliquis continue Diltiazem 180mg BID which is home dose HR is controlled in the 70-80 range (7) Hypertension: HTN, HLD - cont Atorvastatin, Diltiazem, Lisinopril lisinopril increased to 20mg (8) Hyperlipidemia LDL goal <70: continue on atorvastatin. (9) Obstructive sleep apnea: BiPAP HS typically does not tolerate, try to use Roxanol and Ativan for relief (10) Hemoptysis: On admission, however, this has not been an issue since. Currently patient is monitored. 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 last dose was this evening HCO3 down to 40 today (13) DVT prophylaxis: [place] PT/OT orders - patient not a candidate for rehab due to breathing, she wants hospice care DNR, DNI again, family meeting held today with all of her children present in her own words, she told them that she does not want to be intubated again when her breathing deteriorates she does not want to be resuscitated, DNR plan for hospice, family needs to pick agency and get hospital bed, oxygen arranged at home children all on board for taking care of patient 05/12, they understand what that entails reasonable timeline for discharge would be Monday palliative care and case management will help with discharge planning total time spent with patient today 90 minutes, 70 minutes spent with family meeting Subjective family meeting with patient and all of her children and several grandchildren in the room discussed plan for going home with hospice with everyone in her own words, patient said that she does not want intubated again she said that she want comfort measures, she wants to be DNR family had good questions about taking care of patient at home they all understand that mom will be bedbound, will need 05/12 care from family will keep benedict in place for comfort discussed that patient should remain at home unless she cannot be comfortable at home antibiotics for a pneumonia or UTI okay with comfort as goal discussed that a good goal for discharge would be Monday palliative will help tomorrow to pick hospice agency, hospice will get a hospital bed, oxygen etc patient had more dyspnea this morning, rales in lungs increased Lasix to 80mg IV BID, placed on BiPAP for an hour still not tolerating BiPAP well, lasts 1-2 hours at most Review of Systems All systems reviewed & are unremarkable except as noted in HPI & below Physical Exam 2 Vital Signs (Past 24 Hours): Last Vital Signs Temp 36.7 C 05/27/18 07:25 Pulse 78 05/27/18 12:29 Resp 24 05/27/18 12:29 BP 103/51 L 05/27/18 07:25 Pulse Ox 96 05/27/18 12:29 Constitutional: well developed, well nourished and + obese Eyes: PERRL, conjunctivae normal, anicteric sclerae ENMT: external ear and nose normal, oropharynx normal Neck: trachea midline, no thyromegaly Respiratory: normal respiratory effort and + cough; no respiratory distress Auscultation: + diminished lung sounds and + rhonchi Cardiovascular: RRR, no murmur, no edema Gastrointestinal (Abdomen): normal bowel sounds, soft, nontender, no hepatosplenomegaly Musculoskeletal: no cyanosis or clubbing, extremities motor strength 5/5 Skin: no rashes, warm and dry Neurologic: patellar DTR's 2+ bilat, sensation intact and PERRL, EOMI, accommodation nl, no face palsy, no dysarthria Psychiatric: Orientation: alert, oriented to person, oriented to place, oriented to time and cooperative Lymphatic: no cervical or axillary lymphadenopathy Results & Data Laboratory Results Laboratory Results - last 24 hr 05/26/18 05/26/18 05/26/18 11:57 16:43 20:04 POC Glucose 198 H 242 H 318 H 05/27/18 05/27/18 08:08 12:04 POC Glucose 109 H 222 H Medications Administered Current Inpatient Medications Acetaminophen (Tylenol) 650 mg PO Q4H PRN PRN Reason: Pain or Fever Stop: 06/14/18 05:48 Last Admin: 05/23/18 18:15 Dose: 650 mg Albuterol (Ventolin 0.083% 2.5mg/3ml) 2.5 mg NEB Q4H PRN PRN Reason: Shortness Of Breath Stop: 06/14/18 05:48 Last Admin: 05/27/18 12:27 Dose: 2.5 mg Amiodarone HCl (Cordarone) 200 mg PO DAILY [facility] Stop: 06/14/18 08:59 Last Admin: 05/27/18 08:47 Dose: 200 mg Apixaban (Eliquis) 5 mg PO BID [facility] Stop: 06/19/18 20:59 Last Admin: 05/27/18 08:47 Dose: 5 mg Atorvastatin Calcium (Lipitor) 80 mg PO DAILY [facility] Stop: 06/14/18 08:59 Last Admin: 05/27/18 08:47 Dose: 80 mg Buspirone HCl (Buspar) 15 mg PO BID [facility] Stop: 06/19/18 20:59 Last Admin: 05/27/18 08:48 Dose: 15 mg Chlorhexidine Gluconate (Peridex) 15 ml MT DAILY [facility] Stop: 06/16/18 08:59 Last Admin: 05/27/18 08:47 Dose: 15 ml Dextrose (Dextrose 50%) 25 - 50 ml IV UD PRN; Protocol PRN Reason: Hypoglycemia Protocol Stop: 06/14/18 11:56 Last Admin: 05/22/18 05:57 Dose: 25 ml Diclofenac Sodium (Voltaren 1% Top) 1 appln EXT QID PRN PRN Reason: Pain Stop: 06/14/18 05:48 Diltiazem HCl (Cardizem Cd) 180 mg PO BID [facility] Stop: 06/22/18 20:59 Last Admin: 05/27/18 08:46 Dose: 180 mg Ferrous Sulfate (Feosol) 325 mg PO BID [facility] Stop: 06/14/18 08:59 Last Admin: 05/27/18 08:48 Dose: 325 mg Glucagon (Glucagen) 1 mg IM UD PRN; Protocol PRN Reason: Hypoglycemia Protocol Stop: 06/14/18 11:56 Glucose (Glucose 40%) 15 - 30 gm PO UD PRN; Protocol PRN Reason: Hypoglycemia Protocol Stop: 06/14/18 11:56 Glucose (Dex4 Glucose) 4 - 8 tabs PO UD PRN; Protocol PRN Reason: Hypoglycemia Protocol Stop: 06/14/18 11:56 Heparin Sodium (Beef Lung) (Heparin Sod 10 Unit/Ml Flush) 5 ml FLUSH PRN PRN PRN Reason: Flush Stop: 06/18/18 01:30 Last Admin: 05/27/18 08:55 Dose: 15 ml Furosemide 80 mg/ Syringe 8 mls @ 4 mls/min IV Q12 [facility] Stop: 06/26/18 08:59 Last Admin: 05/27/18 08:46 Dose: 4 mls/min Insulin Aspart (Novolog Flexpen) 0 units SC 1130,1630 [facility]; Protocol Stop: 06/26/18 11:29 Last Admin: 05/27/18 13:22 Dose: 14 units Insulin Aspart (Novolog Flexpen) 0 units SC 0730,2100 [facility]; Protocol Stop: 06/26/18 20:59 Insulin Glargine (Lantus Solostar Pen) 25 units SC HS [facility]; Protocol Stop: 06/26/18 20:59 Lactulose (Chronulac) 30 gm PO Q8H PRN PRN Reason: constipation Stop: 06/21/18 14:30 Last Admin: 05/22/18 15:55 Dose: 30 gm Lisinopril (Zestril) [facility] [place] Stop: 06/24/18 08:59 Last Admin: 05/27/18 08:47 Dose: 20 mg Lorazepam (Ativan) 0.5 mg PO HS PRN PRN Reason: Anxiety Stop: 06/25/18 14:01 Last Admin: 05/26/18 23:05 Dose: 0.5 mg Mirtazapine (Remeron) 30 mg PO HS [facility] Stop: 06/14/18 20:59 Last Admin: 05/26/18 20:56 Dose: 30 mg Miscellaneous (Carbohydrates For Hypoglycemia) 15 - 30 gm PO UD PRN PRN Reason: Hypoglycemia Treatment Stop: 06/14/18 11:56 Miscellaneous Information (Consult Glycemic Management Pharmacy) 1 ea N/A UD PRN PRN Reason: Consult Stop: 06/14/18 11:56 Morphine Sulfate (Roxanol) 5 mg PO Q6H PRN PRN Reason: Pain Stop: 06/08/18 11:59 Nitroglycerin (Nitrostat) 0.4 mg SL UD PRN PRN Reason: Chest Pain Stop: 06/14/18 05:48 Ondansetron HCl (Zofran) 4 mg IV Q6H PRN PRN Reason: Nausea Stop: 06/14/18 05:48 Last Admin: 05/16/18 14:20 Dose: 4 mg Pantoprazole Sodium (Protonix) [facility] [place] [place] Stop: 06/23/18 08:59 Last Admin: 05/27/18 08:47 Dose: 40 mg Polyethylene Glycol (Miralax Powder Packet) 17 gm PO DAILY PRN PRN Reason: Constipation Stop: 06/14/18 05:48 Last Admin: 05/24/18 23:28 Dose: 17 gm Potassium Chloride (Klor-Con M20) 20 meq PO BID [facility] Stop: 06/23/18 08:59 Last Admin: 05/27/18 08:47 Dose: 20 meq Pramipexole Dihydrochloride (Mirapex) 1 mg PO [facility] Stop: 06/14/18 20:59 Last Admin: 05/26/18 20:58 Dose: 1 mg Prednisone (Prednisone) 50 mg PO DAILY [facility] Stop: 06/23/18 08:59 Last Admin: 05/27/18 08:46 Dose: 50 mg Trazodone HCl (Desyrel) 100 mg PO [facility] Stop: 06/17/18 20:59 Last Admin: 05/26/18 20:58 Dose: 100 mg _ (1) Hyperglycemia due to type 2 diabetes mellitus 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
[2018-05-27] MEDS: TRAZODONE HCL 100 MG TAB PO SCH (20:23)
[2018-05-27] MEDS: PRAMIPEXOLE DIHYDROCHLO 0.5 MG TAB PO SCH (20:23)
[2018-05-27] MEDS: MIRTAZAPINE TAB 15 MG TAB PO SCH (20:24)
[2018-05-27] MEDS: INSULIN GLARGINE SOLOSTAR 100 UNITS/ML 3 ML PEN SC SCH (20:27)
[2018-05-27] MEDS: LORazepam 0.5 MG TAB PO PRN ×2 (22:05→22:06)
[2018-05-28 06:20] LABS: Eosinophils # (auto) 0.04 K/uL (0-0.5); Eosinophils % (auto) 0.3 %; Hematocrit (blood only) 36.2 % (37-47); Hemoglobin 10.7 g/dL (12.0-16.0); Immature Granulocytes # (auto) 0.05 K/uL (0.00-0.02); Immature Granulocytes % (auto) 0.3 %; Mean Corpuscular Hgb Conc 29.6 g/dL (32-36); Mean Corpuscular Volume 96.3 fL (80-100); Mean Platelet Volume 11.2 fL (7.4-10.4); Monocytes # (auto) 0.76 K/uL (0.11-0.59); Monocytes % (auto) 5.1 %; Neutrophils # (auto) 13.23 K/uL (1.4-6.5); Neutrophils % (auto) 88.3 %; Platelet Count 164 K/uL (130-400); RDW Coefficient of Variation 15.3 % (11.5-14.5); Red Blood Count 3.76 M/uL (4.2-5.4); White Blood Count 14.98 K/uL (4.8-10.8)
[2018-05-28 06:44] LABS: BUN Creatinine Ratio 39.4 (10-20); Calcium 8.6 mg/dl (8.5-10.1); Creatinine Clr Calc Pharmacy 45.2 ml/min; Est GFR (African American) 48.9; Est GFR (Non-African American) 42.2; Potassium 4.8 mmol/L (3.5-5.1)
[2018-05-28] MEDS: BusPIRone 15 MG TAB PO SCH ×2 (07:58→21:55)
[2018-05-28] MEDS: AMIODARONE 200 MG TAB PO SCH (07:58)
[2018-05-28] MEDS: dilTIAZem HCL 180 MG CAPCR PO SCH ×2 (07:58→21:56)
[2018-05-28] MEDS: CHLORHEXIDINE GLUCONATE 0.12% 480 ML MT SCH (07:59)
[2018-05-28] MEDS: FERROUS SULFATE 325 MG TAB PO SCH ×2 (07:59→21:55)
[2018-05-28] MEDS: POTASSIUM CHLORIDE 20 MEQ TABCR PO SCH ×2 (07:59→21:57)
[2018-05-28] MEDS: ATORVASTATIN 40 MG TAB PO SCH (07:59)
[2018-05-28] MEDS: APIXABAN 5 MG TABLET PO SCH ×2 (07:59→21:56)
[2018-05-28] MEDS: FUROSEMIDE 80 MG in SYRINGE 0 ML IV SCH ×2 (07:59→21:58)
[2018-05-28] MEDS: predniSONE 50 MG TAB PO SCH (08:00)
[2018-05-28] MEDS: PANTOprazole 40 MG TAB PO SCH (08:00)
[2018-05-28] MEDS: LISINOPRIL 20 MG TAB PO SCH (08:00)
[2018-05-28] MEDS: INSULIN ASPART 100 UNITS/ML 3 ML PEN SC SCH ×5 (09:00→22:02)
[2018-05-28] MEDS: ALBUTEROL 0.083% NEBU SOLN 3 ML VIAL NEB PRN (11:57)
--- NOTE | 2018-05-28 13:53 | Pharmacy Report ---
Pharmacy Glycemic Short Note 2 - Date of Service May 28, 2018 - Glycemic Short BSG Results (Last 24 hours): 05/27/18 05/27/18 05/28/18 17:07 20:27 05:29 Glucose 135 H POC Glucose 241 H 248 H 05/28/18 05/28/18 07:46 11:54 Glucose POC Glucose 129 H 206 H Outpatient Anti-diabetic Regimen: * Lantus 30 units qAM, Lantus 33 units qPM, Lispro SSI * A1c = 7.2 % 04/25/18 Risk Factors for Insulin Resistance: * Steroids: Prednisone 50mg PO daily * Diet: Type 2 DM Assessment & Plan: 05/28/18 * Lucie received 78 units of insulin yesterday (25 units of basal/53 units of bolus) * Lunchtime BSG's are still elevated. Will tighten CF and CR for breakfast only to prevent lunchtime hyperglycemia. * Fasting BSG's are within goal so the bedtime CF and CR will remain at 15 and 5 respectively. * It is possible that prednisone dose may be tapered soon. Will continue to monitor. 05/27/18 * Lucie received 67 units of insulin yesterday (20 units of basal/47 units of bolus) * Post prandial BSGs are elevated despite tightening CF and CR yesterday afternoon. Dinner and HS BSGs are the highest due to prednisone peaking. I will further tighten CF and CR with lunch and dinner only in an attempt to combat steroid induced hyperglycemia. * Fasting BSG of 109 mg/dL is at goal. Basal dose was reduced significantly yesterday (~33%). I suspect fasting will continue to trend upward, therefore I will conservatively increase dose today. PLAN FOR INPATIENT GLYCEMIC CONTROL: * Basal insulin - * Lantus 25 units SQ qPM * Bolus insulin - tighten CF/CR with breakfast * NovoLog per scale ACHS * Goal Range: Low 120 mg/dL - High 160 mg/dL HS: * Correction Factor: 15 mg/dL/unit * Nutritional / Prandial insulin per carb ratio of 1 unit per 5 grams CHO consumed Breakfast, Lunch and dinner: * Correction Factor: 12 mg/dL/unit * Nutritional / Prandial insulin per carb ratio of 1 unit per 4 grams CHO consumed * Please note that the plan above was derived based on current level of insulin resistance and hospital stress. These recommendations are appropriate for inpatient admission only. Plan of care upon discharge will need to be reassessed to avoid potential outpatient hypo/hyperglycemia. PLAN FOR DISCHARGE: * A1c of 6.8% is at goal * It is reasonable to resume home regimen on discharge as long as patient does not report frequent hypoglycemia (she has required significantly less Lantus during admission compared to home dose despite being on steroids)
[2018-05-28] MEDS: LORazepam 0.5 MG TAB PO PRN (21:55)
[2018-05-28] MEDS: MIRTAZAPINE TAB 15 MG TAB PO SCH (21:55)
[2018-05-28] MEDS: PRAMIPEXOLE DIHYDROCHLO 0.5 MG TAB PO SCH (21:56)
[2018-05-28] MEDS: INSULIN GLARGINE SOLOSTAR 100 UNITS/ML 3 ML PEN SC SCH (21:58)
[2018-05-28] MEDS: TRAZODONE HCL 100 MG TAB PO SCH (21:59)
[2018-05-29] MEDS: AMIODARONE 200 MG TAB PO SCH (07:43)
[2018-05-29] MEDS: BusPIRone 15 MG TAB PO SCH ×2 (07:43→21:40)
[2018-05-29] MEDS: FERROUS SULFATE 325 MG TAB PO SCH ×2 (07:44→21:40)
[2018-05-29] MEDS: APIXABAN 5 MG TABLET PO SCH ×2 (07:44→21:39)
[2018-05-29] MEDS: POTASSIUM CHLORIDE 20 MEQ TABCR PO SCH (07:44)
[2018-05-29] MEDS: predniSONE 50 MG TAB PO SCH (07:45)
[2018-05-29] MEDS: PANTOprazole 40 MG TAB PO SCH (07:45)
[2018-05-29] MEDS: LISINOPRIL 20 MG TAB PO SCH (07:45)
[2018-05-29] MEDS: ATORVASTATIN 40 MG TAB PO SCH (07:45)
[2018-05-29] MEDS: dilTIAZem HCL 180 MG CAPCR PO SCH ×2 (07:46→21:38)
--- NOTE | 2018-05-29 08:49 | Hospitalist Progress Note ---
Date of Service May 28, 2018 Assessment & Plan (1) Acute on chronic respiratory failure with hypoxia and hypercapnia: This was present on admission Patient was intubated after aspirating on 05/16/18. During bronch, large amount of bile was removed from lung. This likely caused lung injury. weaning trial and extubation on 05/21/18, titrated down to 4L NC by the afternoon oxygen saturations continue to be stable at 3-4L discussed with patient and family that goal is 90% due to hypercapnia using BiPAP at night if she can tolerate, typically maybe 1-2 hours will utilize Roxanol for anxiety and dyspnea associated with BiPAP and breathing in general can try Ativan, 0.5mg at night for anxiety while on BiPAP patient wants to be comfortable Plan is to set up hospice at home with discharge in about 2 days on 05/30 (2) Hypoxia: As noted above, extubated 05/21/18 breathing stable on 4LNC saturation goal is 90-92% lungs continue to have rhonchi, weak cough, difficult time bringing up secretions (3) Acute exacerbation of chronic obstructive pulmonary disease (COPD): Patient initially admitted for this problem. Patient became hypercapnic and aspirated while on Bipap. lungs with diminished sounds and rhonchi, no wheezing today, no crackles or rales continue nebulizers, completed 7 days of Zosyn continue Prednisone 50mg daily, plan a slow taper on discharge would recommend decreasing by 10mg every 5 days patient would not want intubated again in the future, she is DNI, DNR she explained this to her children in her own words on 05/27 (4) Hyperglycemia due to type 2 diabetes mellitus: continue Lantus and SS elevated sugars due to steroids monitor for hypoglycemia, no episodes eating well today sugars well controlled (5) Acute on chronic diastolic (congestive) heart failure: utilizing Lasix IV, continues to diurese try to keep lungs dry after acute lung injury with aspiration follow I/O and daily weights negative 15 liters for the admission, Cr holding increased Lasix to 80mg IV q12 today due to some increased rales on 05/28 Creatinine slighty increased. will continue to monitor for now try to keep lungs as dry as possibe prior to discharge (6) Atrial fibrillation: sinus on admission cont Diltiazem, Amiodarone Pradaxa changed to Eliquis continue Diltiazem 180mg BID which is home dose HR is controlled in the 70-80 range (7) Hypertension: HTN, HLD - cont Atorvastatin, Diltiazem, Lisinopril lisinopril increased to 20mg (8) Hyperlipidemia LDL goal <70: continue on atorvastatin. (9) Obstructive sleep apnea: BiPAP HS typically does not tolerate, try to use Roxanol and Ativan for relief (10) Hemoptysis: On admission, however, this has not been an issue since. Currently patient is monitored. Patient does have a lung mass, which may have contributed to this problem no plans for work up at this time family and patient planning for hospice (11) Hypokalemia: low due to diuresis with Lasix will continue Potassium chloride 20mEq BID (12) Metabolic alkalosis with respiratory acidosis: will utilize Diamox 250mg BID x 2 days, would not continue this terminal worker last dose was this evening HCO3 down to 40 today (13) DVT prophylaxis: [facility] PT/OT orders - patient not a candidate for rehab due to breathing, she wants hospice care DNR, DNI again, family meeting held on 05/27 with all of her children present in her own words, she told them that she does not want to be intubated again when her breathing deteriorates she does not want to be resuscitated, DNR plan for hospice, family needs to pick agency and get hospital bed, oxygen arranged at home children all on board for taking care of patient /, they understand what that entails reasonable timeline for discharge would be Monday palliative care and case management will help with discharge planning total time spent in case was 35 minutes, this included chart review, patient encounter, discussion with palliative care Subjective Plan for patient today is for discharge on 05/30 Family at bedside. Despite fact that patient will be bedbound and will need 24/7 care from family, kerri is asking patient to be more active. Family karthikeyanoever is actively encouraging patient to use her CPAP at night. Patient reports that she feels comfortable, still has SOB at rest, but it is tolerable. Constitutional: + fatigue and + weakness; no fever and no sweats Respiratory: + cough, + dyspnea and + sputum production Psychiatric: + anxiety Physical Exam 2 Vital Signs (Past 24 Hours): Last Vital Signs Temp 36.6 C 05/28/18 14:58 Pulse 70 05/28/18 14:58 Resp 20 05/28/18 14:58 BP 112/67 05/28/18 14:58 Pulse Ox 93 05/28/18 14:58 Physical Exam: Constitutional: well developed, well nourished and + obese Eyes: PERRL, conjunctivae normal, anicteric sclerae ENMT: external ear and nose normal, oropharynx normal Neck: trachea midline, no thyromegaly Respiratory: normal respiratory effort and + cough; no respiratory distress Auscultation: + diminished lung sounds and + rhonchi Cardiovascular: RRR, no murmur, no edema Gastrointestinal (Abdomen): normal bowel sounds, soft, nontender, no hepatosplenomegaly Musculoskeletal: no cyanosis or clubbing, extremities motor strength 5/5 Skin: no rashes, warm and dry Neurologic: patellar DTR's 2+ bilat, sensation intact and PERRL, EOMI, accommodation nl, no face palsy, no dysarthria Psychiatric: Orientation: alert, oriented to person, oriented to place, oriented to time and cooperative Lymphatic: no cervical or axillary lymphadenopathy _ (1) Hyperglycemia due to type 2 diabetes mellitus Diabetes mellitus terminal worker insulin use: with alf use Qualified Code(s) : E11.65 - Type 2 diabetes mellitus with hyperglycemia; Z79.4 - detention ( current) use of insulin
[2018-05-29] MEDS: FUROSEMIDE 80 MG in SYRINGE 0 ML IV SCH (09:03)
[2018-05-29] MEDS: INSULIN ASPART 100 UNITS/ML 3 ML PEN SC SCH ×4 (09:03→21:45)
[2018-05-29 09:44] LABS: Hematocrit (blood only) 35.4 % (37-47); Hemoglobin 10.4 g/dL (12.0-16.0); Mean Corpuscular Hgb Conc 29.4 g/dL (32-36); Mean Corpuscular Volume 96.7 fL (80-100); Mean Platelet Volume 11.3 fL (7.4-10.4); Platelet Count 159 K/uL (130-400); RDW Coefficient of Variation 15.9 % (11.5-14.5); RDW Standard Deviation 54.5 fL (36.4-46.3); Red Blood Count 3.66 M/uL (4.2-5.4); White Blood Count 18.32 K/uL (4.8-10.8)
[2018-05-29 09:49] LABS: Eosinophils # (auto) 0.08 K/uL (0-0.5); Eosinophils % (auto) 0.4 %; Immature Granulocytes # (auto) 0.09 K/uL (0.00-0.02); Immature Granulocytes % (auto) 0.5 %; Lymphocytes # (auto) 0.87 K/uL (1.2-3.4); Lymphocytes % (auto) 4.7 %; Monocytes # (auto) 0.82 K/uL (0.11-0.59); Monocytes % (auto) 4.5 %; Neutrophils # (auto) 16.46 K/uL (1.4-6.5); Neutrophils % (auto) 89.9 %
[2018-05-29 10:07] LABS: BUN Creatinine Ratio 35.7 (10-20); Calcium 8.7 mg/dl (8.5-10.1); Creatinine Clr Calc Pharmacy 32.8 ml/min; Est GFR (African American) 33.1; Est GFR (Non-African American) 28.6
[2018-05-29] MEDS: ACETAMINOPHEN 325 MG TAB PO PRN (10:31)
[2018-05-29 10:57] LABS: HCO3 ABG 40 mmol/L (19-24); PCO2 ABG 94 mmHg (35-46); PO2 ABG 86 mm/Hg (80-95); pH ABG 7.24 (7.35-7.45)
[2018-05-29 10:58] LABS: Allen Test POS (Pos)
--- NOTE | 2018-05-29 13:19 | Pharmacy Report ---
Pharmacy Glycemic Short Note 2 - Date of Service May 29, 2018 - Glycemic Short BSG Results (Last 24 hours): 05/28/18 05/28/18 05/29/18 17:13 20:27 07:53 Glucose POC Glucose 265 H 255 H 106 H 05/29/18 05/29/18 09:21 11:07 Glucose 198 H POC Glucose 248 H Outpatient Anti-diabetic Regimen: * Lantus 30 units qAM, Lantus 33 units qPM, Lispro SSI * A1c = 7.2 % 04/25/18 Risk Factors for Insulin Resistance: * Steroids: Prednisone 50mg PO daily * Diet: Type 2 DM Assessment & Plan: 05/29/18 * Lucie received 81 units of insulin yesterday (25 units of basal/ 56 units of bolus) * Post prandial BSG's continue to be above goal range of 120-160 ml/dL. * Will tighten goal range and carb ratio to help prevent post prandial hyperglycemia. * Lunchtime bsg elevated however breakfast novolog given just 2 hours prior so I suspect we are not seeing the full effect of the dose. Therefore the CF/CR will not be tightened further at this time. * Prednisone to be tapered on discharge. 05/28/18 * Lucie received 78 units of insulin yesterday (25 units of basal/53 units of bolus) * Lunchtime BSG's are still elevated. Will tighten CF and CR for breakfast only to prevent lunchtime hyperglycemia. * Fasting BSG's are within goal so the bedtime CF and CR will remain at 15 and 5 respectively. * It is possible that prednisone dose may be tapered soon. Will continue to monitor. 05/27/18 * Lucie received 67 units of insulin yesterday (20 units of basal/47 units of bolus) * Post prandial BSGs are elevated despite tightening CF and CR yesterday afternoon. Dinner and HS BSGs are the highest due to prednisone peaking. I will further tighten CF and CR with lunch and dinner only in an attempt to combat steroid induced hyperglycemia. * Fasting BSG of 109 mg/dL is at goal. Basal dose was reduced significantly yesterday (~33%). I suspect fasting will continue to trend upward, therefore I will conservatively increase dose today. PLAN FOR INPATIENT GLYCEMIC CONTROL: * Basal insulin - * Lantus 25 units SQ qPM * Bolus insulin - tighten CR with breakfast, lunch and dinner * NovoLog per scale ACHS * Goal Range: Low 110 mg/dL - High 150 mg/dL Breakfast, Lunch and dinner: * Correction Factor: 12 mg/dL/unit * Nutritional / Prandial insulin per carb ratio of 1 unit per 3 grams CHO consumed HS: * Correction Factor: 15 mg/dL/unit * Nutritional / Prandial insulin per carb ratio of 1 unit per 5 grams CHO consumed * Please note that the plan above was derived based on current level of insulin resistance and hospital stress. These recommendations are appropriate for inpatient admission only. Plan of care upon discharge will need to be reassessed to avoid potential outpatient hypo/hyperglycemia. PLAN FOR DISCHARGE: * A1c of 6.8% is at goal * It is reasonable to resume home regimen on discharge as long as patient does not report frequent hypoglycemia (she has required significantly less Lantus during admission compared to home dose despite being on steroids)
[2018-05-29] MEDS: ALBUTEROL 0.083% NEBU SOLN 3 ML VIAL NEB PRN (20:23)
[2018-05-29] MEDS: PRAMIPEXOLE DIHYDROCHLO 0.5 MG TAB PO SCH (21:39)
[2018-05-29] MEDS: MIRTAZAPINE TAB 15 MG TAB PO SCH (21:40)
[2018-05-29] MEDS: INSULIN GLARGINE SOLOSTAR 100 UNITS/ML 3 ML PEN SC SCH (21:43)
[2018-05-29] MEDS: LORazepam 0.5 MG TAB PO PRN (21:43)
[2018-05-29] MEDS: TRAZODONE HCL 100 MG TAB PO SCH (21:43)
--- NOTE | 2018-05-29 23:07 | Hospitalist Progress Note ---
Date of Service May 29, 2018 Assessment & Plan (1) Acute on chronic respiratory failure with hypoxia and hypercapnia: This was present on admission Patient was intubated after aspirating on 05/16/18. During bronch, large amount of bile was removed from lung. This likely caused lung injury. weaning trial and extubation on 05/21/18, titrated down to 4L NC by the afternoon oxygen saturations continue to be stable at 3-4L discussed with patient and family that goal is 90% due to hypercapnia using BiPAP at night if she can tolerate, typically maybe 1-2 hours will utilize Roxanol for anxiety and dyspnea associated with BiPAP and breathing in general can try Ativan, 0.5mg at night for anxiety while on BiPAP patient wants to be comfortable Plan is to set up hospice at home with discharge in about 2 days on 05/30 Patient again is having resiratory acidosis with a PH of 7.2 Patient is refusing Bipap. Patient hwoever appears comfortable. Family understands that this will likely increase the rate of her deterioration. (2) Hypoxia: As noted above, extubated 05/21/18 breathing stable on 4LNC saturation goal is 90-92% lungs continue to have rhonchi, weak cough, difficult time bringing up secretions (3) Acute exacerbation of chronic obstructive pulmonary disease (COPD): Patient initially admitted for this problem. Patient became hypercapnic and aspirated while on Bipap. lungs with diminished sounds and rhonchi, no wheezing today, no crackles or rales continue nebulizers, completed 7 days of Zosyn continue Prednisone 50mg daily, plan a slow taper on discharge would recommend decreasing by 10mg every 5 days patient would not want intubated again in the future, she is DNI, DNR she explained this to her children in her own words on 05/27 (4) Hyperglycemia due to type 2 diabetes mellitus: continue Lantus and SS elevated sugars due to steroids monitor for hypoglycemia, no episodes eating well today sugars well controlled (5) Acute on chronic diastolic (congestive) heart failure: utilizing Lasix IV, continues to diurese try to keep lungs dry after acute lung injury with aspiration follow I/O and daily weights negative 15 liters for the admission, Cr holding increased Lasix to 80mg IV q12 today due to some increased rales on 05/28 Creatinine slighty increased. will continue to monitor for now try to keep lungs as dry as possibe prior to discharge (6) Atrial fibrillation: sinus on admission cont Diltiazem, Amiodarone Pradaxa changed to Eliquis continue Diltiazem 180mg BID which is home dose HR is controlled in the 70-80 range (7) Hypertension: HTN, HLD - cont Atorvastatin, Diltiazem, Lisinopril lisinopril increased to 20mg (8) Hyperlipidemia LDL goal <70: continue on atorvastatin. (9) Obstructive sleep apnea: BiPAP HS typically does not tolerate, try to use Roxanol and Ativan for relief (10) Hemoptysis: On admission, however, this has not been an issue since. Currently patient is monitored. Patient does have a lung mass, which may have contributed to this problem no plans for work up at this time family and patient planning for hospice (11) Hypokalemia: low due to diuresis with Lasix will continue Potassium chloride 20mEq BID (12) Metabolic alkalosis with respiratory acidosis: will utilize Diamox 250mg BID x 2 days, would not continue this fpc last dose was this evening (13) DVT prophylaxis: [facility] PT/OT orders - patient not a candidate for rehab due to breathing, she wants hospice care DNR, DNI again, family meeting held on 05/27 with all of her children present in her own words, she told them that she does not want to be intubated again when her breathing deteriorates she does not want to be resuscitated, DNR plan for hospice, family needs to pick agency and get hospital bed, oxygen arranged at home children all on board for taking care of patient 05/12, they understand what that entails reasonable timeline for discharge would be Monday, however no hospital bed delivered. May postpone discharge to . palliative care and case management will help with discharge planning total time spent in case was 35 minutes, patient encounter, discussion with family over respiratory failure. Subjective Plan for patient today is for discharge on 05/30 Family at bedside. Daughter understands that patient willl likely pass at home. Discussed confusion is likely from respiratory failure from hypercapnia. Patient is unable toprovide much history due to her confusion. Constitutional: + fatigue and + weakness; no fever and no sweats Respiratory: + cough, + dyspnea and + sputum production Psychiatric: + anxiety Physical Exam 2 Vital Signs (Past 24 Hours): Last Vital Signs Temp 36.4 C L 05/29/18 08:15 Pulse 78 05/29/18 15:25 Resp 18 05/29/18 20:23 BP 107/51 L 05/29/18 15:25 Pulse Ox 94 05/29/18 20:23 Physical Exam: Constitutional: well developed, well nourished and + obese Eyes: PERRL, conjunctivae normal, anicteric sclerae ENMT: external ear and nose normal, oropharynx normal Neck: trachea midline, no thyromegaly Respiratory: normal respiratory effort and + cough; no respiratory distress Auscultation: + diminished lung sounds and + rhonchi Cardiovascular: RRR, no murmur, no edema Gastrointestinal (Abdomen): normal bowel sounds, soft, nontender, no hepatosplenomegaly Musculoskeletal: no cyanosis or clubbing, extremities motor strength 5/5 Skin: no rashes, warm and dry Neurologic: patellar DTR's 2+ bilat, sensation intact and PERRL, EOMI, accommodation nl, no face palsy, no dysarthria Psychiatric: Orientation: alert but confused and cooperative Lymphatic: no cervical or axillary lymphadenopathy _ (1) Hyperglycemia due to type 2 diabetes mellitus Diabetes mellitus fpc insulin use: with fpc use Qualified Code(s) : E11.65 - Type 2 diabetes mellitus with hyperglycemia; 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
[2018-05-30] MEDS: dilTIAZem HCL 180 MG CAPCR PO SCH (07:57)
[2018-05-30] MEDS: BusPIRone 15 MG TAB PO SCH (07:57)
[2018-05-30] MEDS: LISINOPRIL 20 MG TAB PO SCH (07:59)
[2018-05-30] MEDS: predniSONE 50 MG TAB PO SCH (07:59)
[2018-05-30] MEDS: APIXABAN 5 MG TABLET PO SCH (07:59)
[2018-05-30] MEDS: FERROUS SULFATE 325 MG TAB PO SCH (07:59)
[2018-05-30] MEDS: AMIODARONE 200 MG TAB PO SCH (09:02)
[2018-05-30] MEDS: ATORVASTATIN 40 MG TAB PO SCH (09:02)
[2018-05-30] MEDS: INSULIN ASPART 100 UNITS/ML 3 ML PEN SC SCH ×3 (09:03→17:24)
[2018-05-30] MEDS: PANTOprazole 40 MG TAB PO SCH (09:03)
--- NOTE | 2018-05-30 11:55 | Pharmacy Report ---
Pharmacy Glycemic Short Note 2 - Date of Service May 30, 2018 - Glycemic Short BSG Results (Last 24 hours): 05/29/18 05/29/18 05/30/18 16:38 20:16 07:33 POC Glucose 156 H 305 H 94 05/30/18 11:19 POC Glucose 204 H Outpatient Anti-diabetic Regimen: * Lantus 30 units qAM, Lantus 33 units qPM, Lispro SSI * A1c = 7.2 % 04/25/18 Risk Factors for Insulin Resistance: * Steroids: Prednisone 50mg PO daily * Diet: Type 2 DM Assessment & Plan: 05/30/18 * Lucie received 81 units of insulin yesterday (25 units of basal/ 56 units of bolus) * Post prandial BSG's continue to be above goal range of 110-150 ml/dL. * CR tightened slightly from 3 to 2.5 this morning. * Planning for discharge soon, possibly today. Prednisone to be tapered on discharge. 05/29/18 * Lucie received 81 units of insulin yesterday (25 units of basal/ 56 units of bolus) * Post prandial BSG's continue to be above goal range of 120-160 ml/dL. * Will tighten goal range and carb ratio to help prevent post prandial hyperglycemia. * Lunchtime bsg elevated however breakfast novolog given just 2 hours prior so I suspect we are not seeing the full effect of the dose. Therefore the CF/CR will not be tightened further at this time. * Prednisone to be tapered on discharge. 05/28/18 * Lucie received 78 units of insulin yesterday (25 units of basal/53 units of bolus) * Lunchtime BSG's are still elevated. Will tighten CF and CR for breakfast only to prevent lunchtime hyperglycemia. * Fasting BSG's are within goal so the bedtime CF and CR will remain at 15 and 5 respectively. * It is possible that prednisone dose may be tapered soon. Will continue to monitor. 05/27/18 * Lucie received 67 units of insulin yesterday (20 units of basal/47 units of bolus) * Post prandial BSGs are elevated despite tightening CF and CR yesterday afternoon. Dinner and HS BSGs are the highest due to prednisone peaking. I will further tighten CF and CR with lunch and dinner only in an attempt to combat steroid induced hyperglycemia. * Fasting BSG of 109 mg/dL is at goal. Basal dose was reduced significantly yesterday (~33%). I suspect fasting will continue to trend upward, therefore I will conservatively increase dose today. PLAN FOR INPATIENT GLYCEMIC CONTROL: * Basal insulin - * Lantus 25 units SQ qPM * Bolus insulin - tighten CR with breakfast, lunch and dinner * NovoLog per scale ACHS * Goal Range: Low 110 mg/dL - High 150 mg/dL Breakfast, Lunch and dinner: * Correction Factor: 12 mg/dL/unit * Nutritional / Prandial insulin per carb ratio of 1 unit per 3 grams CHO consumed HS: * Correction Factor: 15 mg/dL/unit * Nutritional / Prandial insulin per carb ratio of 1 unit per 5 grams CHO consumed * Please note that the plan above was derived based on current level of insulin resistance and hospital stress. These recommendations are appropriate for inpatient admission only. Plan of care upon discharge will need to be reassessed to avoid potential outpatient hypo/hyperglycemia. PLAN FOR DISCHARGE: * A1c of 6.8% is at goal * It is reasonable to resume home regimen on discharge as long as patient does not report frequent hypoglycemia (she has required significantly less Lantus during admission compared to home dose despite being on steroids)
--- NOTE | 2018-06-06 07:23 | Discharge Summary ---
Date of Service May 30, 2018 Admission HPI Per Admitting Provider 78 y/o F Hx COPD - 4L 02, AF, HTN, HLD, DM II, LOGAN. Presents with progressive SOB, a cough and hemoptysis x 3-4 days. She presented to the ER with moderate respiratory distress. She responded to a breathing treatment and steroids. Initial labs demonstrate hyperglycemia and are otherwise unremarkable. A CXR appears unchanged from a previous. The pt denies CP or fevers. PMH: 1) Advanced COPD - frequent hospital admission fro exacerbation 2) HTN 3) HLD 4) DM II 5) Depression/amxiety 6) Paroxysmal atrial fibrillation 7) LOGAN - BiPAP 8) Obesity Surgical: 1) Cholecystectomy 2) Tonsillectomy 3) Hysterectomy Social: Quit smoking 2009 Does not drink alcohol Family: Father prostate CA Mother lymphoma Social: Family: Principal Diagnosis Acute on chronic respiratory failure Discharge Exam Constitutional: well developed, well nourished and + obese Eyes: PERRL, conjunctivae normal, anicteric sclerae ENMT: external ear and nose normal, oropharynx normal Neck: trachea midline, no thyromegaly Respiratory: normal respiratory effort and + cough; no respiratory distress Auscultation: + diminished lung sounds, no rhonchi Cardiovascular: RRR, no murmur, no edema Gastrointestinal (Abdomen): normal bowel sounds, soft, nontender, no hepatosplenomegaly Musculoskeletal: no cyanosis or clubbing, extremities motor strength 5/5 Skin: no rashes, warm and dry Neurologic: patellar DTR's 2+ bilat, sensation intact and PERRL, EOMI, accommodation nl, no face palsy, no dysarthria Psychiatric: Orientation: alert but confused and cooperative Lymphatic: no cervical or axillary lymphadenopathy Discharge Data Allergies Allergy/AdvReac Type Severity Reaction Status Date / Time mushroom Allergy Unknown Unknown Verified 05/15/18 02:02 theophylline Allergy Unknown Unknown Verified 05/15/18 02:02 codeine AdvReac Severe HYPERVENTIL Verified 05/15/18 02:02 ATES morphine AdvReac Severe Causes Afib Verified 05/15/18 02:02 Consultations 05/15/18 01:21 ED Decision to Admit Stat 05/16/18 09:44 Consult Pulmonology Routine 05/21/18 12:44 Consult Palliative Care Routine Ordered Studies 05/16/18 19:00 CT angio chest w con Routine Hospital Course (1) Acute on chronic respiratory failure with hypoxia and hypercapnia: This was present on admission Patient was intubated after aspirating on 05/16/18. During bronch, large amount of bile was removed from lung. This likely caused lung injury. weaning trial and extubation on 05/21/18, titrated down to 4L NC by the afternoon oxygen saturations continue to be stable at 3-4L discussed with patient and family that goal is 90% due to hypercapnia using BiPAP at night if she can tolerate, typically maybe 1-2 hours will utilize Roxanol for anxiety and dyspnea associated with BiPAP and breathing in general can try Ativan, 0.5mg at night for anxiety while on BiPAP patient wants to be comfortable Plan is set up hospice at home with discharge on 05/30 Patient again is having respiratory acidosis with a PH of 7.2 Patient is refusing Bipap. Patient however appears comfortable. Family understands that this will likely increase the rate of her deterioration. (2) Hypoxia: As noted above, extubated 05/21/18 breathing stable on 4LNC saturation goal is 90-92% lungs continue to have rhonchi, weak cough, difficult time bringing up secretions (3) Acute exacerbation of chronic obstructive pulmonary disease (COPD): Patient initially admitted for this problem. Patient became hypercapnic and aspirated while on Bipap. lungs with diminished sounds and rhonchi, no wheezing today, no crackles or rales continue nebulizers, completed 7 days of Zosyn continue Prednisone 50mg daily, plan a slow taper on discharge would recommend decreasing by 10mg every 5 days patient would not want intubated again in the future, she is DNI, DNR she explained this to her children in her own words on 05/27 (4) Hyperglycemia due to type 2 diabetes mellitus: continue Lantus and SS elevated sugars due to steroids monitor for hypoglycemia, no episodes eating well today sugars well controlled (5) Acute on chronic diastolic (congestive) heart failure: utilizing Lasix IV, continues to diurese try to keep lungs dry after acute lung injury with aspiration follow I/O and daily weights negative 15 liters for the admission, Cr holding increased Lasix to 80mg IV q12 today due to some increased rales on 05/28 Creatinine slighty increased. will continue to monitor for now try to keep lungs as dry as possibe prior to discharge (6) Atrial fibrillation: sinus on admission cont Diltiazem, Amiodarone Pradaxa changed to Eliquis continue Diltiazem 180mg BID which is home dose HR is controlled in the 70-80 range (7) Hypertension: HTN, HLD - cont Atorvastatin, Diltiazem, Lisinopril lisinopril increased to 20mg (8) Hyperlipidemia LDL goal <70: continue on atorvastatin. (9) Obstructive sleep apnea: BiPAP HS typically does not tolerate, try to use Roxanol and Ativan for relief (10) Hemoptysis: On admission, however, this has not been an issue since. Currently patient is monitored. Patient does have a lung mass, which may have contributed to this problem no plans for work up at this time family and patient planning for hospice (11) Hypokalemia: low due to diuresis with Lasix will continue Potassium chloride 20mEq BID (12) Metabolic alkalosis with respiratory acidosis: will utilize Diamox 250mg BID x 2 days, would not continue this manager intermediate last dose was this evening (13) DVT prophylaxis: [place] PT/OT orders - patient not a candidate for rehab due to breathing, she wants hospice care DNR, DNI again, family meeting held on 05/27 with all of her children present in her own words, she told them that she does not want to be intubated again when her breathing deteriorates she does not want to be resuscitated, DNR reasonable timeline for discharge would be Monday, however no hospital bed delivered. May postpone discharge to . palliative care and case management will help with discharge planning total time spent in case was 35 minutes, patient encounter, discussion with family over respiratory failure. Total Time Total Time Spent Total Time Spent (In Minutes): 33 Total Time Includes: Examination of the Patient, Discharge Planning and Medication Reconciliation Discharge Plan Discharge Items Patient Disposition: Hospice - Home Reason For Visit: COPD EXACERBATION Discharge Diagnosis: COPD exacerbation Discharge Goals: Decrease discomfort and Learn about illness Activity: Per 'Additional Instructions' section Activity Comment: Bedridden Non-emergency contact: Specialist Call non-emergency contact if: you have any medication questions Follow-up/Referrals: Ray Pereira III, CRNP [Primary Care Provider] - 05/25/18 10:20 am (Please, follow up with Ray WORKMAN on MondayMay 25 at 10:20 am. *If you need to change this appointment, call the office at [phone].) Diet: Carb Consistent or DM2 and Heart Healthy Addtl Provider Instructions: Patient being discharged on home hospice Prescriptions: New lisinopril 20 mg Tablet 20 mg PO QAM Qty: 30 RF: 0 morphine concentrate 100 mg/5 mL (20 mg/mL) solution 5 mg SL Q6H PRN (Reason: pain) Qty: 30 RF: 0 insulin glargine [Lantus Solostar U-100 Insulin] 100 unit/mL (3 mL) Insulin Pen 25 unit SC HS Qty: 1 RF: 0 lactulose 20 gram/30 mL Solution 30 ml PO Q8H PRN (Reason: constipation) Qty: 300 RF: 0 prednisone 10 mg tablet 10 mg PO UD Qty: 50 RF: 0 Continue ipratropium-albuterol 0.5 mg-3 mg(2.5 mg base)/3 mL solution for nebulization 3 ml NEB Q4 PRN (Reason: Shortness Of Breath) RF: 0 lorazepam 0.5 mg Tablet 0.5 mg PO HS PRN (Reason: severe anxiety) RF: 0 pramipexole 1 mg tablet 1 mg PO HS RF: 0 furosemide [Lasix] 40 mg tablet 40 mg PO DAILY RF: 0 atorvastatin [Lipitor] 80 mg tablet 80 mg PO DAILY RF: 0 diltiazem HCl [Cardizem CD] 180 mg capsule,extended release 24hr 180 mg PO BID RF: 0 amiodarone [Pacerone] 200 mg tablet 200 mg PO DAILY RF: 0 trazodone 100 mg tablet 200 mg PO HS RF: 0 pantoprazole 40 mg tablet,delayed release (DR/EC) 40 mg PO DAILY RF: 0 mirtazapine 30 mg tablet 30 mg PO HS RF: 0 ferrous sulfate 325 mg (65 mg iron) Tablet 325 mg PO BID RF: 0 vitamin B complex Tablet 1 tab PO DAILY RF: 0 ketoconazole 2 % cream 1 applic Topical BID RF: 0 ipratropium bromide 0.02 % Solution 1 unit INHALATION Q4 PRN (Reason: Shortness Of Breath) RF: 0 buspirone 15 mg tablet 15 mg PO TID RF: 0 insulin lispro [Humalog KwikPen Insulin] 100 unit/mL insulin pen subcut BID RF: 0 budesonide [Pulmicort Flexhaler] 180 mcg/actuation Aerosol Powdr Breath Activated 2 inh INHALATION BID RF: 0 diclofenac sodium [Voltaren] 1 % Gel 4 g TOPICAL QID MDD 16 gm daily to any one joint PRN (Reason: Pain) RF: 0 dabigatran etexilate [Pradaxa] 150 mg Capsule 150 mg PO BID RF: 0 Discontinued insulin glargine [Lantus Solostar U-100 Insulin] 100 unit/mL (3 mL) Insulin Pen 33 unit SUBCUT HS RF: 0 venlafaxine [Effexor XR] 75 mg capsule,extended release 24hr 75 mg PO DAILY RF: 0 venlafaxine [Effexor XR] 150 mg capsule,extended release 24hr 150 mg PO DAILY RF: 0 lisinopril [Zestril] 5 mg tablet 5 mg PO DAILY RF: 0 insulin glargine [Lantus Solostar U-100 Insulin] 100 unit/mL (3 mL) insulin pen 30 units subcut QAM RF: 0 Stand-Alone Forms: [facility] Discharge Orders: Discharge Order (Routine); Ordered 05/30/18 Ordered By: Irving Bello Admission Data Admit Date/Time: 05/15/18 04:45 Attending Provider: Irving Bello Admit Provider: Maroln Fernandez Primary Care Provider: Ray Pereira III Other Providers: Marlon Fernandez ; Rosio Dejesus ; Sade Maloney Service: Medical Other Interventions: Discharge Summary Assessment (RN) Last Done: 05/30/18 13:58 DC Date/Time DO NOT enter until pt leaves facility: 05/30/18 17:20
== END 2018-05-30 17:20 | disposition hospice, home (50) | DRG 166 ==
LOC: ED 22:58 → 2N 05-15 04:45 → SUATTDRO 05-15 04:45 → 2N 05-15 05:09 → 1E 05-16 15:20 → 2S 05-22 21:40 → 2N 05-25 14:00 → 4W 05-25 15:10